=== PATIENT | female | born 1980 | race Caucasian/White ===

== ENCOUNTER → 2023-09-28 | Outpatient (CLI) | payer OTHER ==
--- NOTE | 2023-09-28 09:10 | US ---
EXAMINATION TYPE: US liver DATE OF EXAM: 09/28/2023 COMPARISON: NONE CLINICAL INDICATION: Female, 43 years old with history of K70.31 ALCOHOLIC CIRRHOSIS OF LIVER WITH CITES; Alcoholic cirrhosis. TECHNIQUE: Multiple sonographic images of the right upper quadrant are obtained. FINDINGS: EXAM MEASUREMENTS: Liver Length: 17.5 cm Gallbladder Wall: 0.47 cm CBD: 0.59 cm Right Kidney: 10.9 x 5.8 x 4.2 cm PUMP SERVICER HELPER NOTES: Exam is limited due to gas and patient body habitus. Pancreas: Tail was obscured. Liver: Measures upper limits. Appears very coarse and heterogeneous in echotexture*. -Anechoic area seen within the left lobe of the liver: 1.1 x 1.2 x 0.9 cm. Finding is compatible with a hepatic cyst Gallbladder: *Wall appears thickened. -Hyperechoic material with posterior shadowing seen within the gallbladder: 2.0 x 2.0 x 0.6 cm. Evidence for sonographic Cordova's sign: No CBD: Measures upper limits for normal. Right Kidney: No hydronephrosis or masses seen IMPRESSION: 1. Hepatomegaly. 2. Thickened gallbladder wall. Some shadowing is present which could be related to sludge or cholelit hiasis. Correlate for cholecystitis.
== END | disposition home or self-care (01) ==
LOC: RADUSWWP 06:51
PROVIDERS: ATTEND Internal Medicine Gastroenterology
DX: K82.8 Other specified diseases of gallbladder (principal); K70.31 Alcoholic cirrhosis of liver with ascites; R16.0 Hepatomegaly, not elsewhere classified
CPT/HCPCS: 76705

== ENCOUNTER 2024-02-18 19:54 | Inpatient (IN) | payer OTHER ==
--- NOTE | 2024-02-18 20:41 | ED ---
General Adult HPI - General Chief complaint: Abdominal Pain Stated complaint: ABD Pain Time Seen by Provider: 02/18/24 19:56 Source: patient Mode of arrival: EMS Limitations: no limitations - History of Present Illness Initial comments: Dictation was produced using Tiink[employer] dictation software. please excuse any grammatical, word or spelling errors. Chief Complaint: 44-year-old female transferred from [facility] for acute cholecystitis and GI bleed History of Present Illness: Patient is a 44-year-old female presents emergency department from [facility] for the last 2 to 3 days she has been having bilateral upper abdominal pain. She had extensive workup done at [facility] including blood work, CT and ultrasound. She was still called blood positive had elevated white blood cell count along with liver enzymes and bilirubin. She had a CT that showed hydropic gallbladder along with ultrasound concerning for acute cholecystitis. She was given ceftriaxone and Flagyl. Patient requested transfer to our facility. The ROS documented in this emergency department record has been reviewed and confirmed by me. Those systems with pertinent positive or negative responses have been documented in the HPI. All other systems are other negative and/or noncontributory. - Related Data Home Medications Medication Instructions Recorded Confirmed Cariprazine HCl [Vraylar] 3 mg PO HS 03/20/23 03/25/23 Gabapentin 300 mg PO TID 03/20/23 03/25/23 Pantoprazole [Protonix] 40 mg PO DAILY 03/20/23 03/25/23 QUEtiapine [SEROquel] 1 - 2 tab PO HS 03/20/23 03/25/23 Spironolactone 100 mg PO DAILY 03/20/23 03/25/23 Furosemide [Lasix] 40 mg PO DAILY 02/18/24 02/18/24 Allergies Allergy/AdvReac Type Severity Reaction Status Date / Time Penicillins Allergy Unknown Verified 03/25/23 09:14 Childhood Review of Systems ROS Statement: Those systems with pertinent positive or pertinent negative responses have been documented in the HPI. ROS Other: All systems not noted in ROS Statement are negative. Past Medical History Past Medical History: GERD/Reflux, Liver Disease Additional Past Medical History / Comment(s): retains fluid,anemia,cirrohis of liver non alcoholic, occ bloody stool, ulcer, bipolar History of Any Multi-Drug Resistant Organisms: None Reported Past Surgical History: EPS Additional Past Surgical History / Comment(s): has had 4 scopes, paracentesis unable to get any fluid out at the time., paracentesis Additional Past Anesthesia/Blood Transfusion Reaction / Comment(s): 3 units of blood transfused in around february 03. Past Psychological History: Anxiety, Bipolar Smoking Status: Current every day smoker General Exam - General Exam Comments Initial Comments: PHYSICAL EXAM: General Impression: Alert and oriented x3, not in acute distress HEENT: Normocephalic atraumatic, extra-ocular movements intact, pupils equal and reactive to light bilaterally, mucous membranes moist. Cardiovascular: Heart regular rate and rhythm Chest: Able to complete full sentences, no retractions, no tachypnea Abdomen: abdomen soft, palpatory bilateral upper quadrant tenderness, non- distended, no organomegaly Musculoskeletal: Pulses present and equal in all extremities, no peripheral edema Motor: no focal deficits noted Neurological: CN II-XII grossly intact, no focal motor or sensory deficits noted Skin: Intact with no visualized rashes Psych: Normal affect and mood Limitations: no limitations Course Vital Signs 02/18/24 20:20 Temperature 98.0 F Pulse Rate 80 Respiratory 20 Rate Blood Pressure 101/52 O2 Sat by Pulse 98 Oximetry - Reevaluation(s) Reevaluation #1: 02/18/24 20:[address] Patino requested that we contact Dr. Cuenca to make her aware that patient will likely need ERCP procedure as well. Dr. Cuenca was agreeable states that it it is okay for patient to be admitted here. Medical Decision Making - Medical Decision Making Was pt. sent in by a medical professional or institution (, PA, ROCK SPLITTER, urgent care, hospital, or custodial...) When possible be specific @ -Sent from outside emergency department Did you speak to anyone other than the patient for history (EMS, parent, family, police, friend...)? What history was obtained from this source @ -Spoke with transferring physician as discussed above Did you review nursing and triage notes (agree or disagree)? Why? @ -I reviewed and agree with nursing and triage notes Were old charts reviewed (outside hosp., previous admission, EMS record, old EKG, old radiological studies, urgent care reports/EKG's, custodial records)? Report findings @ -Outside ER documents were reviewed as described above Differential Diagnosis (chest pain, altered mental status, abdominal pain women, abdominal pain men, vaginal bleeding, musculoskeletal, weakness, fever, dyspnea, syncope, headache, dizziness, GI bleed, back pain, seizure, CVA, palpatations, mental health)? @ -Differential Abdominal Pain Women: Appendicitis, Cholecystitis, diverticulosis, ischemic bowel, pancreatitis, hepatitis, UTI, gastroenteritis, AAA, incarcerated hernia, bowel obstruction, constipation, inflammatory bowel, hepatitis, peptic ulcer disease, splenic infarction, perforated viscus, vulvitis, ovarian torsion, PID, kidney stone, placenta abruption, this is not meant to be an all-inclusive list EKG interpreted by me (3pts min.). @ -None done X-rays interpreted by me (1pt min.). @ -None done CT interpreted by me (1pt min.). @ -None done U/S interpreted by me (1pt. min.). @ -None done What testing was considered but not performed or refused? (CT, X-rays, U/S, labs)? Why? @ -None What meds were considered but not given or refused? Why? @ -None Was smoking cessation discussed for >3mins.? @ -No Were there social determinants of health that impacted care today? How? (Homelessness, low income, unemployed, alcoholism, drug addiction, transportation, low edu. Level, literacy, decrease access to med. care, half-way, rehab)? @ -No Was there de-escalation of care discussed even if they declined (Discuss DNR or withdrawal of care, Hospice)? DNR status @ -No What co-morbidities impacted this encounter? (DM, HTN, Smoking, COPD, CAD, Cancer, CVA, ARF, Chemo, Hep., AIDS, mental health diagnosis, sleep apnea, morbid obesity)? @ -None Was patient admitted / discharged? Hospital course, mention meds given and route, prescriptions, significant lab abnormalities, going to OR and other pertinent info. @ -44-year-old female transferred to our emergency department from outside hospital for acute cholecystitis and GI bleed. Vital signs are stable. Patient in no acute distress at the bedside. She does have palpatory abdominal pain. Case discussed with general surgery, GI and hospitalist for admission. Patient started on Zosyn Did you discuss the management of the patient with other professionals (professionals i.e. , PA, ROCK SPLITTER, lab, RT, psych nurse, social services aide, manufacturing teacher, te acher, airframe technical officer, behavioral health case manager)? Give summary @ -Case discussed with general surgery along with GI as described above. Case also discussed with hospitalist for admission Was critical care preformed (if so, how long)? @ -No Undiagnosed new problem with uncertain prognosis? @ -No Drug Therapy requiring intensive monitoring for toxicity (Heparin, Nitro, Insulin, Cardizem)? @ -No Were any procedures done? @ -No Diagnosis/symptom? Acute, or Chronic, or Acute on Chronic? Uncomplicated (without systemic symptoms) or Complicated (systemic symptoms)? @ -Acute cholecystitis Side effects of treatment? @ -No Exacerbation, Progression, or Severe Exacerbation? @ -No Poses a threat to life or bodily function? How? (Chest pain, USA, ID, pneumonia, PE, COPD, DKA, ARF, appy, cholecystitis, CVA, Diverticulitis, Homicidal, Suicidal, threat to staff... and all critical care pts) @ -yes Disposition Clinical Impression: Acute cholecystitis Disposition: ADMITTED IP TO THIS HOSP Condition: Fair Referrals: Sharifa Begum FNPBC [Primary Care Provider] - 1-2 days Decision Time: 21:13
[2024-02-18] MEDS: HYDROmorphone 1 MG/ML 1 ML SYRINGE IVP STA (20:42)
[2024-02-18] MEDS: ONDANSETRON 4 MG/2 ML VIAL IVP STA (20:43)
[2024-02-18] MEDS ORDERED: NALOXONE 0.4 MG/ML 1 ML VIAL IV PRN (21:08)
[2024-02-18] MEDS: CEFEPIME 2 GM in SODIUM CHLORIDE 0.9% 100 ML IVPB SCH (21:30)
[2024-02-18] MEDS: SODIUM CHLORIDE 0.9% 1,000 ML IV SCH (23:20)
[2024-02-18] MEDS: SODIUM CHLORIDE 0.9% 1,000 ML IV STA (23:29)
[2024-02-19] MEDS: HYDROmorphone 0.5 MG/0.5 ML SYRINGE IVP PRN (01:44)
[2024-02-19 03:57] LABS: Basophils % (A) 0 %; Eosinophils # (A) 0.1 k/uL (0-0.7); Eosinophils % (A) 1 %; HCT 25.4 % (34.0-46.0); HGB 8.9 gm/dL (11.4-16.0); Lymphocytes # (A) 1.8 k/uL (1.0-4.8); Lymphocytes % (A) 15 %; MCH 38.8 pg (25.0-35.0); MCHC 35.2 g/dL (31.0-37.0); MCV 110.4 fL (80.0-100.0); Macrocytosis Marked; Mean Platelet Volume 9.8; Monocytes # (A) 0.5 k/uL (0-1.0); Monocytes % (A) 4 %; Neutrophils # (A) 9.2 k/uL (1.3-7.7); Neutrophils % (A) 78 %; RDW 15.5 % (11.5-15.5); WBC 11.9 k/uL (3.8-10.6)
[2024-02-19 04:21] LABS: Anisocytosis (M) Present
[2024-02-19 04:22] LABS: Polychromasia Present
[2024-02-19 04:23] LABS: Platelet Count 68 k/uL (150-450)
[2024-02-19] MEDS ORDERED: LORazepam 2 MG/ML INJ IV PRN ×2 (06:10)
[2024-02-19 06:28] LABS: Basophils % (A) 0 %; Eosinophils # (A) 0.1 k/uL (0-0.7); Eosinophils % (A) 1 %; HCT 24.1 % (34.0-46.0); HGB 8.3 gm/dL (11.4-16.0); Lymphocytes # (A) 1.8 k/uL (1.0-4.8); Lymphocytes % (A) 17 %; MCH 38.4 pg (25.0-35.0); MCHC 34.6 g/dL (31.0-37.0); MCV 110.9 fL (80.0-100.0); Mean Platelet Volume 8.8; Monocytes # (A) 0.5 k/uL (0-1.0); Monocytes % (A) 5 %; Neutrophils # (A) 8.2 k/uL (1.3-7.7); Neutrophils % (A) 74 %; RBC 2.18 m/uL (3.80-5.40); WBC 11.1 k/uL (3.8-10.6)
[2024-02-19 06:30] LABS: Macrocytosis Marked; Platelet Count 71 k/uL (150-450)
[2024-02-19 06:34] LABS: ALT 22 U/L (4-34); AST 54 U/L (14-36); African American GFR (CKD) >90 (>60 ml/min/1.73 sqM); Albumin 2.7 g/dL (3.5-5.0); Albumin/Globulin Ratio 1.2; Alkaline Phosphatase 102 U/L (38-126); Anion Gap 4 mmol/L; Blood Urea Nitrogen 21 mg/dL (7-17); Calcium 7.3 mg/dL (8.4-10.2); Carbon Dioxide 25 mmol/L (22-30); Chloride 99 mmol/L (98-107); Globulin 2.3 g/dL; Glucose 115 mg/dL (74-99); Non-African American GFR(CKD) >90 (>60 ml/min/1.73 sqM); Potassium 2.9 mmol/L (3.5-5.1); Sodium 128 mmol/L (137-145); Total Bilirubin 3.4 mg/dL (0.2-1.3)
[2024-02-19] MEDS: LORazepam 2 MG/ML INJ IV PRN (06:39)
--- NOTE | 2024-02-19 10:12 | P.CONS ---
History of Present Illness - Reason for Consult Consult date: 02/19/24 anemia, cholithiasis Requesting physician: Kt Alcantar - Chief Complaint abdominal pain and melena - History of Present Illness This is a 44 year old female with past medical history of alcoholism and cirrhosis of the liver secondary to alcohol abuse diagnosed about a year ago. She presented to [facility] with complaints of abdominal pain and dark black stools that started three days ago and is continuing to have. She states she had also had nausea and vomiting but no blood. States she had a colonoscopy about a year ago with Dr. Cuenca, had colon polyps status post polypectomy. Has had 2-3 previous upper endoscopies unsure what they found but states they treated it. No report available. She had a CT of the abdomen with contrast reporting gallbladder hydrops, small gallstones again seen. no significant wall thickening. Abdominal ultrasound reported hepatomegaly with mild fatty alteration liver, gallbladder wall thickening and cholelithiasis, normal CBD 0.53cm. She was noted to have elevated LFTs and transferred here for GI and surgery consult. She currently remains having dark maroon stools, some abdominal discomfort, no vomiting. She has a 2 gram drop in her hemoglobin. Review of Systems A 14 point review systems was completed all pertinent positives and negatives as stated in the HPI. Past Medical History Past Medical History: GERD/Reflux, Liver Disease Additional Past Medical History / Comment(s): retains fluid,anemia,cirrohis of liver non alcoholic, occ bloody stool, ulcer, bipolar History of Any Multi-Drug Resistant Organisms: None Reported Past Surgical History: EPS Additional Past Surgical History / Comment(s): has had 4 scopes, paracentesis u nable to get any fluid out at the time., paracentesis Past Anesthesia/Blood Transfusion Reactions: No Reported Reaction Additional Past Anesthesia/Blood Transfusion Reaction / Comm: 3 units of blood transfused in around february 03. Past Psychological History: Anxiety, Bipolar Smoking Status: Current every day smoker Past Alcohol Use History: None Reported Additional Past Alcohol Use History / Comment(s): 1 pk/every 2 days/ 20yrs, did not drink for 10months and then started drinking again states "I stopped again a week ago." Past Drug Use History: None Reported Medications and Allergies Home Medications Medication Instructions Recorded Confirmed Type Cariprazine HCl [Vraylar] 3 mg PO HS 03/20/23 02/18/24 History Gabapentin 300 mg PO TID 03/20/23 02/18/24 History Pantoprazole [Protonix] 40 mg PO DAILY 03/20/23 02/18/24 History QUEtiapine [SEROquel] 100 tab PO HS 03/20/23 02/18/24 History Spironolactone 100 mg PO DAILY 03/20/23 02/18/24 History Furosemide [Lasix] 40 mg PO DAILY 02/18/24 02/18/24 History Allergies Allergy/AdvReac Type Severity Reaction Status Date / Time Penicillins Allergy Anaphylaxis Verified 02/18/24 21:11 Physical Exam Vitals: Vital Signs Temp Pulse Pulse Resp BP BP Pulse Ox 02/19/24 01:16 98.2 F 109 H 16 109/66 91 L 02/19/24 00:00 76 16 109/81 98 02/18/24 23:00 77 20 100/62 97 02/18/24 21:30 74 16 110/64 96 02/18/24 20:20 98.0 F 80 20 101/52 98 Intake and Output 02/18/24 02/18/24 02/19/24 14:59 22:59 06:59 Other: Voiding Method Toilet # Voids 1 Weight 100 kg 100 kg General appearance: The patient is alert, oriented, appears in no acute distress. HET: Head is normocephalic and atraumatic. Conjunctiva pink. Sclera anicteric. Neck: Supple without lymphadenopathy. Trachea midline. Heart: Regular. Lungs: Equal expansion, normal respiratory effort. Abdomen: Soft, mild tenderness epigastric region, nondistended. Skin: No rashes. No jaundice. Extremities: Normal skin color and turgor. No pedal edema. Neurological: No focal deficits. Alert and oriented x3. Results CBC & Chem 7: 02/19/24 05:49 02/19/24 05:49 Labs: Abnormal Lab Results - Last 24 Hours (Table) 02/19/24 02/19/24 02/19/24 Range/Units 03:29 05:49 05:49 WBC 11.9 H 11.1 H (3.8-10.6) k/uL RBC 2.30 L 2.18 L (3.80-5.40) m/uL Hgb 8.9 L 8.3 L (11.4-16.0) gm/dL Hct 25.4 L 24.1 L (34.0-46.0) % MCV 110.4 H 110.9 H (80.0-100.0) fL MCH 38.8 H 38.4 H (25.0-35.0) pg Plt Count 68 L 71 L (150-450) k/uL Neutrophils # 9.2 H 8.2 H (1.3-7.7) k/uL Macrocytosis Marked A Marked A Sodium 128 L (137-145) mmol/L Potassium 2.9 L (3.5-5.1) mmol/L BUN 21 H (7-17) mg/dL Glucose 115 H (74-99) mg/dL Calcium 7.3 L (8.4-10.2) mg/dL Total Bilirubin 3.4 H (0.2-1.3) mg/dL AST 54 H (14-36) U/L Total Protein 5.0 L (6.3-8.2) g/dL Albumin 2.7 L (3.5-5.0) g/dL Assessment and Plan (1) Melena Narrative/Plan: 44 year old female with history of alcohol liver cirrhosis with previous GI bleed possible etiology esophageal varices in setting of liver cirrhosis, AVM, gastritis, PUD, or esophagitis. Labs are consistent with alcohol liver disease, elevated LFTs secondary to liver disease and not cholestatic pattern. Will proceed with upper endoscopy. Current Visit: Yes Status: Acute Code(s): K92.1 - MELENA SNOMED Code(s): 6711302 (2) Anemia Current Visit: Yes Status: Acute Code(s): D64.9 - ANEMIA, UNSPECIFIED SNOMED Code(s): 115109281 (3) Liver cirrhosis Current Visit: Yes Status: Acute Code(s): K74.60 - UNSPECIFIED CIRRHOSIS OF LIVER SNOMED Code(s): 97950921 (4) Cholelithiasis Narrative/Plan: No evidence for choledocholothiasis. Labs consistent with alcohol liver disease, not cholestatic pattern. Current Visit: Yes Status: Acute Code(s): K80.20 - CALCULUS OF GALLBLADDER W/O CHOLECYSTITIS W/O OBSTRUCTION SNOMED Code(s): 391385514 Plan: 1. Continiue supportive care 2. Repeat CBC, transfuse for Hg less than 7 3. NPO 4. Avoid NSAIDS 5. Protonix 40 mg BID 6. Plan for EGD today 7. Continue with recommendations from general surgery Thank you for this consultation. Further recs. after upper endoscopy. We will sign off at this time. There will be no further GI coverage in hospital over the weekend and next week. Dr. Rachel Cuenca I agree with the dictator's note, documented as a scribe by Katiuska Fan.
[2024-02-19 10:33] LABS: Basophils % (A) 0 %; Eosinophils # (A) 0.2 k/uL (0-0.7); Eosinophils % (A) 2 %; HCT 24.1 % (34.0-46.0); HGB 8.2 gm/dL (11.4-16.0); Lymphocytes # (A) 1.7 k/uL (1.0-4.8); Lymphocytes % (A) 16 %; MCH 37.9 pg (25.0-35.0); MCHC 33.9 g/dL (31.0-37.0); MCV 111.8 fL (80.0-100.0); Macrocytosis Marked; Mean Platelet Volume 9.9; Monocytes # (A) 0.5 k/uL (0-1.0); Monocytes % (A) 4 %; Neutrophils # (A) 7.7 k/uL (1.3-7.7); Neutrophils % (A) 75 %; RBC 2.15 m/uL (3.80-5.40); RDW 15.3 % (11.5-15.5); WBC 10.3 k/uL (3.8-10.6)
[2024-02-19 10:42] LABS: Platelet Count 79 k/uL (150-450)
[2024-02-19 10:59] LABS: ALT 22 U/L (4-34); AST 56 U/L (14-36); African American GFR (CKD) >90 (>60 ml/min/1.73 sqM); Albumin 2.7 g/dL (3.5-5.0); Albumin/Globulin Ratio 1.1; Alkaline Phosphatase 98 U/L (38-126); Anion Gap 3 mmol/L; Blood Urea Nitrogen 20 mg/dL (7-17); Calcium 7.4 mg/dL (8.4-10.2); Carbon Dioxide 26 mmol/L (22-30); Chloride 102 mmol/L (98-107); Globulin 2.4 g/dL; Glucose 118 mg/dL (74-99); Non-African American GFR(CKD) >90 (>60 ml/min/1.73 sqM); Potassium 3.1 mmol/L (3.5-5.1); Sodium 131 mmol/L (137-145); Total Bilirubin 3.3 mg/dL (0.2-1.3); Total Protein 5.1 g/dL (6.3-8.2)
--- NOTE | 2024-02-19 13:33 | P.GSCN ---
History of Present Illness Consult date: 02/19/24 History of present illness: CHIEF COMPLAINT: abdominal pain HISTORY OF PRESENT ILLNESS: This is a 44-year-old female whoto transfer from [facility] with complaints of right upper quadrant abdominal pain and black stools 2 days. Patient has had nausea and vomiting. Reports no blood in emesis. 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 She had a CT of the abdomen with contrast reporting gallbladder hydrops, small gallstones seen. no significant wall thickening. Abdominal ultrasound reported hepatomegaly with mild fatty alteration liver, gallbladder wall thickening and cholelithiasis, normal CBD 0.53cm. She was noted to have elevated LFTs and transferred here for GI and surgery consult. hemoglobin on admission 8.9. denies any prior abdominal surgeries PAST MEDICAL HISTORY: abdominal ascites, anemia, bipolar disorder, carpal tunnel syndrome, liver cirrhosis, duodenal arteriovenous malformation, esophageal varices, neuropathy, obesity, portal venous hypertension PAST SURGICAL HISTORY: See below MEDICATIONS: See below ALLERGIES: See below SOCIAL HISTORY: No illicit drug use. daily alcohol use REVIEW OF SYSTEMS: CONSTITUTIONAL: Denies fever or chills. HEENT: Denies blurred vision, vision changes, or eye pain. Denies hemoptysis CARDIOVASCULAR: Denies chest pain or pressure. RESPIRATORY: No shortness of breath. GASTROINTESTINAL: See HPI for pertinent findings HEMATOLOGIC: Denies bleeding disorders. GENITOURINARY: Denies any blood in urine or increased urinary frequency. SKIN: Denies pruitis. Denies rash. PHYSICAL EXAM: VITAL SIGNS: Reviewed GENERAL: Well-developed in no acute distress. HEENT: No sclera icterus. Extraocular movements grossly intact. Moist buccal mucosa. Head is atraumatic, normocephalic. No nasal drainage. ABDOMEN: Soft. Nondistended. tenderness to palpation right upper quadrant and epigastric area NEUROLOGIC: Alert and oriented. Cranial nerves II through XII grossly intact. LABORATORY DATA: WBC 11.9-10.3 Hgb 8.2 Plt 79 hgb 10.7 at [facility] Na 131 K 3.1 cr 0.63 total bilirubin 3.3 AST 56 ALT 22 alk phos 98 lipase 37 IMAGING: ASSESSMENT: 1. Acute GI bleed with dark stools 2. Anemia likely acute blood loss due to GI bleed 3. Cholelithiasis and gallbladder wall thickening noted on imaging 4. Elevated LFTs likely due to alcohol liver disease 5. History of liver cirrhosis 6. History of daily alcohol use PLAN: -Patient scheduled for EGD today with GI service -continue to monitor for any signs or symptoms of bleeding -continue to monitor hemoglobin -Continue Protonix -Further recommendations forthcoming per surgeon Physician Roll Over Press Operator note has been reviewed by physician. Signing provider agrees with the documented findings, assessment, and plan of care. I have personally seen and examined the patient, reviewed the COMMERCIAL CORRESPONDENT /PAs history, exam and MDM and agree with the assessment and plan as written. Based on total visit time, I have performed more than 50% of the visit. As above: Patient presents with GI bleed. Found to have elevated liver enzymes however patient with history of known cirrhosis. Thrombocytopenia also present. GI has seen this patient. Agree with their plan. Await EGD findings. No plans for cholecystectomy at this time. Past Medical History Past Medical History: GERD/Reflux, Liver Disease Additional Past Medical History / Comment(s): retains fluid,anemia,cirrohis of liver non alcoholic, occ bloody stool, ulcer, bipolar History of Any Multi-Drug Resistant Organisms: None Reported Past Surgical History: EPS Additional Past Surgical History / Comment(s): has had 4 scopes, paracentesis unable to get any fluid out at the time., paracentesis Past Anesthesia/Blood Transfusion Reactions: No Reported Reaction Additional Past Anesthesia/Blood Transfusion Reaction / Comm: 3 units of blood transfused in around february 03. Past Psychological History: Anxiety, Bipolar Smoking Status: Current every day smoker Past Alcohol Use History: None Reported Additional Past Alcohol Use History / Comment(s): 1 pk/every 2 days/ 20yrs, did not drink for 10months and then started drinking again states "I stopped again a week ago." Past Drug Use History: None Reported Medications and Allergies Home Medications Medication Instructions Recorded Confirmed Type Cariprazine HCl [Vraylar] 3 mg PO HS 03/20/23 02/18/24 History Gabapentin 300 mg PO TID 03/20/23 02/18/24 History Pantoprazole [Protonix] 40 mg PO DAILY 03/20/23 02/18/24 History QUEtiapine [SEROquel] 100 tab PO HS 03/20/23 02/18/24 History Spironolactone 100 mg PO DAILY 03/20/23 02/18/24 History Furosemide [Lasix] 40 mg PO DAILY 02/18/24 02/18/24 History Allergies Allergy/AdvReac Type Severity Reaction Status Date / Time Penicillins Allergy Anaphylaxis Verified 02/18/24 21:11 Surgical - Exam Vital Signs Temp Pulse Resp BP Pulse Ox 98.0 F 80 20 101/52 98 02/18/24 20:20 02/18/24 20:20 02/18/24 20:20 02/18/24 20:20 02/18/24 20:20 Results - Labs 02/19/24 10:15 02/19/24 10:15 Abnormal Lab Results - Last 24 Hours (Table) 02/19/24 02/19/24 02/19/24 Range/Units 03:29 05:49 05:49 WBC 11.9 H 11.1 H (3.8-10.6) k/uL RBC 2.30 L 2.18 L (3.80-5.40) m/uL Hgb 8.9 L 8.3 L (11.4-16.0) gm/dL Hct 25.4 L 24.1 L (34.0-46.0) % MCV 110.4 H 110.9 H (80.0-100.0) fL MCH 38.8 H 38.4 H (25.0-35.0) pg Plt Count 68 L 71 L (150-450) k/uL Neutrophils # 9.2 H 8.2 H (1.3-7.7) k/uL Macrocytosis Marked A Marked A Sodium 128 L (137-145) mmol/L Potassium 2.9 L (3.5-5.1) mmol/L BUN 21 H (7-17) mg/dL Glucose 115 H (74-99) mg/dL Calcium 7.3 L (8.4-10.2) mg/dL Total Bilirubin 3.4 H (0.2-1.3) mg/dL AST 54 H (14-36) U/L Total Protein 5.0 L (6.3-8.2) g/dL Albumin 2.7 L (3.5-5.0) g/dL 02/19/24 02/19/24 Range/Units 10:15 10:15 WBC (3.8-10.6) k/uL RBC 2.15 L (3.80-5.40) m/uL Hgb 8.2 L (11.4-16.0) gm/dL Hct 24.1 L (34.0-46.0) % MCV 111.8 H (80.0-100.0) fL MCH 37.9 H (25.0-35.0) pg Plt Count 79 L (150-450) k/uL Neutrophils # (1.3-7.7) k/uL Macrocytosis Marked A Sodium 131 L (137-145) mmol/L Potassium 3.1 L (3.5-5.1) mmol/L BUN 20 H (7-17) mg/dL Glucose 118 H (74-99) mg/dL Calcium 7.4 L (8.4-10.2) mg/dL Total Bilirubin 3.3 H (0.2-1.3) mg/dL AST 56 H (14-36) U/L Total Protein 5.1 L (6.3-8.2) g/dL Albumin 2.7 L (3.5-5.0) g/dL Diabetes panel 02/19/24 02/19/24 Range/Units 05:49 10:15 Sodium 128 L 131 L (137-145) mmol/L Potassium 2.9 L 3.1 L (3.5-5.1) mmol/L Chloride 99 102 (98-107) mmol/L Carbon Dioxide 25 26 (22-30) mmol/L BUN 21 H 20 H (7-17) mg/dL Creatinine 0.54 0.63 (0.52-1.04) mg/dL Glucose 115 H 118 H (74-99) mg/dL Calcium 7.3 L 7.4 L (8.4-10.2) mg/dL AST 54 H 56 H (14-36) U/L ALT 22 22 (4-34) U/L Alkaline Phosphatase 102 98 (38-126) U/L Total Protein 5.0 L 5.1 L (6.3-8.2) g/dL Albumin 2.7 L 2.7 L (3.5-5.0) g/dL Calcium panel 02/19/24 02/19/24 Range/Units 05:49 10:15 Calcium 7.3 L 7.4 L (8.4-10.2) mg/dL Albumin 2.7 L 2.7 L (3.5-5.0) g/dL Pituitary panel 02/19/24 02/19/24 Range/Units 05:49 10:15 Sodium 128 L 131 L (137-145) mmol/L Potassium 2.9 L 3.1 L (3.5-5.1) mmol/L Chloride 99 102 (98-107) mmol/L Carbon Dioxide 25 26 (22-30) mmol/L BUN 21 H 20 H (7-17) mg/dL Creatinine 0.54 0.63 (0.52-1.04) mg/dL Glucose 115 H 118 H (74-99) mg/dL Calcium 7.3 L 7.4 L (8.4-10.2) mg/dL Adrenal panel 02/19/24 02/19/24 Range/Units 05:49 10:15 Sodium 128 L 131 L (137-145) mmol/L Potassium 2.9 L 3.1 L (3.5-5.1) mmol/L Chloride 99 102 (98-107) mmol/L Carbon Dioxide 25 26 (22-30) mmol/L BUN 21 H 20 H (7-17) mg/dL Creatinine 0.54 0.63 (0.52-1.04) mg/dL Glucose 115 H 118 H (74-99) mg/dL Calcium 7.3 L 7.4 L (8.4-10.2) mg/dL Total Bilirubin 3.4 H 3.3 H (0.2-1.3) mg/dL AST 54 H 56 H (14-36) U/L ALT 22 22 (4-34) U/L Alkaline Phosphatase 102 98 (38-126) U/L Total Protein 5.0 L 5.1 L (6.3-8.2) g/dL Albumin 2.7 L 2.7 L (3.5-5.0) g/dL
[2024-02-19] MEDS: IV FLUID CONTINUATION 1,000 ML IV ONE ×2 (17:04→17:22)
[2024-02-19] MEDS ORDERED: PROPOFOL 10 MG/ML 20 ML VIAL IV ONE (17:15)
[2024-02-19] MEDS ORDERED: LIDOCAINE 1% INJ 10MG/ML (20 ML MDV) ONE (17:15)
--- NOTE | 2024-02-19 17:24 | P.PCN ---
Date of Procedure: 02/19/24 Procedure(s) Performed: BRIEF HISTORY: Patient is a 44-year-old, pleasant, white female with history of alcoholic cirrhosis of the liver was admitted hospital after having black tarry stools for the last 2 days' duration.. PROCEDURE PERFORMED: Esophagogastroduodenoscopy with biopsy. PREOPERATIVE DIAGNOSIS: Acute upper GI bleed IV sedation per anesthesia. PROCEDURE: After informed consent was obtained, the patient was brought into the endoscopy unit. IV sedation was administered by Anesthesia under continuous monitoring. Initially the Olympus GIF-140 video endoscope was inserted into the mouth. Esophagus intubated without any difficulty. It was gradually advanced into the stomach and duodenum and carefully examined. The bulb and the second part of the duodenum appeared normal. The scope at this time was withdrawn to the stomach, adequately insufflated with air, and upon careful examination, mucosa of the antrum,and a 5 mm small antral ulcer with no active bleeding and this was biopsied. Mucosa of the body, cardia and the fundus had changes consistent with mild to moderate portal hypertensive gastropathy. No gastric varices identified.l. The scope was then withdrawn into the esophagus. The GE junction was located at 39 cm from the incisors. small distal esophageal varices with no stigmata of recent bleed.The rest of theesophagus appeared normal. There were no erosions or ulcerations seen and the patient tolerated the procedure well. IMPRESSION: 1. Small 5 mm antral ulcer with no active bleeding. 2. Small distal esophageal varices with no stigmata of recent 3. Mild to moderate: Evidence of gastric. RECOMMENDATIONS: The findings of this examination were discussed with the patient.continue with Protonix 40 mg daily. Advance diet as tolerated. Monitor CBC daily.
[2024-02-19] MEDS: GABAPENTIN 300 MG CAP PO SCH (17:50)
--- NOTE | 2024-02-19 18:05 | P.HPIM ---
History of Present Illness H&P Date: 02/19/24 Chief Complaint: transfer from [facility] for cholecystitis as well as GI bleed 44-year-old female who presented [facility] 3 days ago with upper abdominal pain extensive workup done including computed tomography scan labwork and ultrasound she was noted to be heme positive with leukocytosis and elevated liver enzymes along with lobe and, the computed tomography scan revealed presence of hydropic gallbladder with ultrasound cystoscopy acute cholecystitis patient was treated with Rocephin and Flagyl and subsequently transferred to [facility] for advanced level of care.On arrival she was afebrile hemodynamically stable but with a systolic blood pressure oxygen 98% patient was admitted with GI doctor, and Dr. Patino for general surgery on consulther labs were significant obesity count of 11.1 and hemoglobin at 8.3/24 platelet count was 71, patient underwent endoscopy by Dr. Garcia and 0.5 cm ulcerated nonbleedingin antrum with distal esophageal varices with no stigmata of bleeding and evidence of mild gastritis, surgical services following closely prior medical history significant for a GERD, cirrhosis of liver, history of peptic ulcer disease, with prior multiple endoscopy as well as paracentesisdetails of bed however not available Review of Systems All systems: negative Past Medical History Past Medical History: GERD/Reflux, Liver Disease Additional Past Medical History / Comment(s): retains fluid,anemia,cirrohis of liver non alcoholic, occ bloody stool, ulcer, bipolar History of Any Multi-Drug Resistant Organisms: None Reported Past Surgical History: EPS Additional Past Surgical History / Comment(s): has had 4 scopes, paracentesis unable to get any fluid out at the time., paracentesis Past Anesthesia/Blood Transfusion Reactions: No Reported Reaction Additional Past Anesthesia/Blood Transfusion Reaction / Comment(s): 3 units of blood transfused in around february 03. Past Psychological History: Anxiety, Bipolar Smoking Status: Current every day smoker Past Alcohol Use History: None Reported Additional Past Alcohol Use History / Comment(s): 1 pk/every 2 days/ 20yrs, did not drink for 10months and then started drinking again states "I stopped again a week ago." Past Drug Use History: None Reported Medications and Allergies Home Medications Medication Instructions Recorded Confirmed Type Cariprazine HCl [Vraylar] 3 mg PO HS 03/20/23 02/18/24 History Gabapentin 300 mg PO TID 03/20/23 02/18/24 History Pantoprazole [Protonix] 40 mg PO DAILY 03/20/23 02/18/24 History QUEtiapine [SEROquel] 100 tab PO HS 03/20/23 02/18/24 History Spironolactone 100 mg PO DAILY 03/20/23 02/18/24 History Furosemide [Lasix] 40 mg PO DAILY 02/18/24 02/18/24 History Allergies Allergy/AdvReac Type Severity Reaction Status Date / Time Penicillins Allergy Anaphylaxis Verified 02/18/24 21:11 Physical Exam Vitals: Vital Signs Temp Pulse Pulse Resp BP BP Pulse Ox 02/19/24 13:22 98.6 F 96 20 97/56 93 L 02/19/24 07:22 98.4 F 92 20 101/57 92 L 02/19/24 01:16 98.2 F 109 H 16 109/66 91 L 02/19/24 00:00 76 16 109/81 98 02/18/24 23:00 77 20 100/62 97 02/18/24 21:30 74 16 110/64 96 02/18/24 20:20 98.0 F 80 20 101/52 98 Intake and Output 02/19/24 02/19/24 02/19/24 06:59 14:59 22:59 Intake Total 100 Balance 100 Intake: IV 100 Other: Voiding Method Toilet Toilet # Voids 1 Weight 100 kg General appearance: The patient is alert, oriented, appears in no acute distress. HET: Head is normocephalic and atraumatic. Conjunctiva pink. Sclera anicteric. Neck: Supple without lymphadenopathy. Trachea midline. Heart: Regular. Lungs: Equal expansion, normal respiratory effort. Abdomen: Soft, mild tenderness epigastric region, nondistended. Skin: No rashes. No jaundice. Extremities: Normal skin color and turgor. No pedal edema. Neurological: No focal deficits. somnolent but arousable post procedure Results CBC & Chem 7: 02/19/24 10:15 02/19/24 10:15 Labs: Abnormal Lab Results - Last 24 Hours (Table) 02/19/24 02/19/24 02/19/24 Range/Units 03:29 05:49 05:49 WBC 11.9 H 11.1 H (3.8-10.6) k/uL RBC 2.30 L 2.18 L (3.80-5.40) m/uL Hgb 8.9 L 8.3 L (11.4-16.0) gm/dL Hct 25.4 L 24.1 L (34.0-46.0) % MCV 110.4 H 110.9 H (80.0-100.0) fL MCH 38.8 H 38.4 H (25.0-35.0) pg Plt Count 68 L 71 L (150-450) k/uL Neutrophils # 9.2 H 8.2 H (1.3-7.7) k/uL Macrocytosis Marked A Marked A Sodium 128 L (137-145) mmol/L Potassium 2.9 L (3.5-5.1) mmol/L BUN 21 H (7-17) mg/dL Glucose 115 H (74-99) mg/dL Calcium 7.3 L (8.4-10.2) mg/dL Total Bilirubin 3.4 H (0.2-1.3) mg/dL AST 54 H (14-36) U/L Total Protein 5.0 L (6.3-8.2) g/dL Albumin 2.7 L (3.5-5.0) g/dL 02/19/24 02/19/24 Range/Units 10:15 10:15 WBC (3.8-10.6) k/uL RBC 2.15 L (3.80-5.40) m/uL Hgb 8.2 L (11.4-16.0) gm/dL Hct 24.1 L (34.0-46.0) % MCV 111.8 H (80.0-100.0) fL MCH 37.9 H (25.0-35.0) pg Plt Count 79 L (150-450) k/uL Neutrophils # (1.3-7.7) k/uL Macrocytosis Marked A Sodium 131 L (137-145) mmol/L Potassium 3.1 L (3.5-5.1) mmol/L BUN 20 H (7-17) mg/dL Glucose 118 H (74-99) mg/dL Calcium 7.4 L (8.4-10.2) mg/dL Total Bilirubin 3.3 H (0.2-1.3) mg/dL AST 56 H (14-36) U/L Total Protein 5.1 L (6.3-8.2) g/dL Albumin 2.7 L (3.5-5.0) g/dL Thrombosis Risk Factor Assmnt - Choose All That Apply Each Factor Represents 1 point: Age 41-60 years Other Risk Factors: No Other congenital or acquired thrombophilia - If yes, enter type in comment: No Thrombosis Risk Factor Assessment Total Risk Factor Score: 1 Thrombosis Risk Factor Assessment Level: Low Risk Assessment and Plan Assessment: acute on chronic anemia, monitor and trend hemoglobin closely keep her over 7-8 GI bleed likely upper occurred status post endoscopy found to have a small 0.5 cm ulcer nonbleeding with nonbleeding varices, continue PPI Cirrhosis, monitor and trend liver enzymes closely Cholecystitis and cholelithiasis, ultrasound failed to reveal choledocholithiasis, general surgery is following Plan: as above Time with Patient: Greater than 30
[2024-02-19] MEDS: POTASSIUM CHLORIDE ER 20 MEQ TAB.ER PO SCH (18:49)
[2024-02-19] MEDS: PATIENT'S OWN (Cariprazine Hcl [Vraylar] 3 MG Capsule) PO SCH (20:03)
[2024-02-19] MEDS: QUEtiapine 100 MG TAB PO SCH (21:31)
[2024-02-20] MEDS: SPIRONOLACTONE 25 MG TAB PO SCH (08:30)
[2024-02-20] MEDS: PANTOPRAZOLE 40 MG TABLET PO SCH (08:31)
[2024-02-20 09:47] LABS: HCT 20.6 % (37.2-46.3); HGB 6.9 g/dL (12.0-15.0); Immature Platelet Fraction 8.8 % (1.1-6.1); MCH 37.9 pg (27.0-32.0); MCHC 33.5 g/dL (32.0-37.0); MCV 113.2 FL (80.0-97.0); NRBC Per 100 WBC 0 X 10*3/uL (0.00-0.01); Platelet Count 44 X 10*3/uL (140-440); RBC 1.82 X 10*6/uL (4.10-5.20); RDW 15.5 % (11.5-14.5); WBC 5.01 X 10*3/uL (4.50-10.00)
[2024-02-20 10:02] LABS: ALT 19 U/L (8-44); AST 53 U/L (13-35); Albumin 2.8 g/dL (3.8-4.9); Albumin/Globulin Ratio 1.47 Ratio (1.60-3.17); Alkaline Phosphatase 99 U/L (41-126); BUN/Creat Ratio 17.11 Ratio (12.00-20.00); Blood Urea Nitrogen 15.4 mg/dL (9.0-27.0); Calcium 7.2 mg/dL (8.7-10.3); Chloride 106 mmol/L (96-109); Globulin 1.9 g/dL (1.6-3.3); Glucose 97 mg/dL (70-110); Magnesium 1.9 mg/dL (1.5-2.4); Phosphorus 1.1 mg/dL (2.4-5.1); Potassium 3.5 mmol/L (3.5-5.5); Sodium 134 mmol/L (135-145); Total Bilirubin 1.6 mg/dL (0.3-1.2); Total Protein 4.7 g/dL (6.2-8.2)
[2024-02-20 10:22] LABS: Basophils # (A) 0.03 X 10*3/uL (0.00-0.10); Basophils % (A) 0.6 %; Eosinophils # (A) 0.17 X 10*3/uL (0.04-0.35); Eosinophils % (A) 3.4 %; Macrocytosis (M) 2+; Monocytes # (A) 0.34 X 10*3/uL (0.20-1.00); Monocytes % (A) 6.8 %; Neutrophils # (A) 3.22 X 10*3/uL (1.80-7.70); Neutrophils % (A) 64.2 %
--- NOTE | 2024-02-20 16:12 | P.PN ---
Subjective Progress Note Date: 02/20/24 Principal diagnosis: acute blood loss anemia acute on chronic anemia, monitor and trend hemoglobin closely keep her over 7-8 GI bleed likely upper occurred status post endoscopy found to have a small 0.5 cm ulcer nonbleeding with nonbleeding varices, continue PPI Cirrhosis, monitor and trend liver enzymes closely Cholecystitis and cholelithiasis, ultrasound failed to reveal choledocholithiasis, general surgery is following 02/20/2024, patient seen eval examined during roundsobvious bleeding has been noted but patient is still having dark stool, hemoglobin drop down to 6.9, platelet count is just 44,000 patient is getting 2 units of packed RBC, medications reviewed patient is on cephapirin Protonix and Decadron and Ativan along with Dilaudid for pain control 44-year-old female who presented into the [facility] days ago with upper abdominal pain extensive workup done including computed tomography scan labwork and ultrasound she was noted to be heme positive with leukocytosis and elevated liver enzymes along with lobe and, the computed tomography scan revealed presence of hydropic gallbladder with ultrasound cystoscopy acute cholecystitis patient was treated with Rocephin and Flagyl and subsequently transferred to [facility] for advanced level of care.On arrival she was afebrile hemodynamically stable but with a systolic blood pressure oxygen 98% patient was admitted with GI doctor, and Dr. Patino for general surgery on consulther labs were significant obesity count of 11.1 and hemoglobin at 8.3/24 platelet count was 71, patient underwent endoscopy by Dr. Garcia and 0.5 cm ulcerated nonbleedingin antrum with distal esophageal varices with no stigmata of bleeding and evidence of mild gastritis, surgical services following closely prior medical history significant for a GERD, cirrhosis of liver, history of peptic ulcer disease, with prior multiple endoscopy as well as paracentesisdetails of bed however not available Objective - Vital Signs Vital signs: Vital Signs Temp 98.2 F 02/20/24 15:19 Pulse 108 H 02/20/24 15:19 Resp 17 02/20/24 15:19 BP 102/68 02/20/24 15:19 Pulse Ox 95 02/20/24 15:19 FiO2 Intake & Output 02/19/24 02/20/24 02/20/24 18:59 06:59 18:59 Intake Total 100 1140 430 Balance 100 1140 430 Intake: IV 100 Intake, IV Titration 1140 Amount Cefepime 2 gm In Sodium 100 Chloride 0.9% 100 ml @ 200 mls/hr IVPB Q12H [facility] Rx#:[id number] Sodium Chloride 0.9% 1, 1040 000 ml @ 130 mls/hr IV . Q7H42M [facility] Rx#:[id number] Oral 120 Blood Product 310 Rc As-1 Unit 0 [id number] Rc As-1 Unit 310 [id number] Other: Voiding Method Toilet Toilet # Voids 3 - Exam General appearance: The patient is alert, oriented, appears in no acute distress. HET: Head is normocephalic and atraumatic. Conjunctiva pink. Sclera anicteric. Neck: Supple without lymphadenopathy. Trachea midline. Heart: Regular. Lungs: Equal expansion, normal respiratory effort. Abdomen: Soft, mild tenderness epigastric region, nondistended. Skin: No rashes. No jaundice. Extremities: Normal skin color and turgor. No pedal edema. Neurological: No focal deficits. somnolent but arousable post procedure - Labs CBC & Chem 7: 02/20/24 05:53 02/20/24 05:47 Labs: Abnormal Lab Results - Last 24 Hours (Table) 02/19/24 02/20/24 02/20/24 Range/Units 05:49 05:47 05:53 RBC 1.82 L (4.10-5.20) X 10*6/uL Hgb 6.9 A* (12.0-15.0) g/dL Hct 20.6 L (37.2-46.3) % MCV 113.2 H (80.0-97.0) FL MCH 37.9 H (27.0-32.0) pg RDW 15.5 H (11.5-14.5) % Plt Count 44 L (140-440) X 10*3/uL Immature Gran # 0.05 H (0.00-0.04) X 10*3/uL Immature Plt Fraction 8.8 H (1.1-6.1) % Macrocytosis (manual) 2+ A Sodium 134 L (135-145) mmol/L Carbon Dioxide 20.0 L (21.6-31.8) mmol/L Calcium 7.2 L (8.7-10.3) mg/dL Phosphorus 1.1 L (2.4-5.1) mg/dL Total Bilirubin 1.6 H (0.3-1.2) mg/dL AST 53 H (13-35) U/L Total Protein 4.7 L (6.2-8.2) g/dL Albumin 2.8 L (3.8-4.9) g/dL Albumin/Globulin Ratio 1.47 L (1.60-3.17) Ratio Crossmatch See Detail Assessment and Plan Assessment: acute blood loss anemia Thrombocytopenia acute on chronic anemia, monitor and trend hemoglobin closely keep her over 7-8 GI bleed likely upper occurred status post endoscopy found to have a small 0.5 cm ulcer nonbleeding with nonbleeding varices, continue PPI Cirrhosis, monitor and trend liver enzymes closely Cholecystitis and cholelithiasis, ultrasound failed to reveal choledocholithiasis, general surgery is following Plan: as above, patient is being transferred to unit packed RBC, will check coags as wellif quality breath he seen that will require correction Time with Patient: Greater than 30
--- NOTE | 2024-02-20 16:15 | P.PN ---
Progress Note - Text Progress Note Date: 02/20/24 CHIEF COMPLAINT: Abdominal Pain. HISTORY OF PRESENT ILLNESS: NAEO. Patient receiving 1 unit PRBCs during evaluation. Denies abdominal pain PHYSICAL EXAM: VITAL SIGNS: Reviewed. GENERAL: Well-developed in no acute distress. ABDOMEN: Soft. Mildly distended, Nontender NEUROLOGIC: Alert and oriented. Cranial nerves II through XII grossly intact. ASSESSMENT: 1. Acute GI bleed with dark stools 2. Anemia likely acute blood loss due to GI bleed 3. Cholelithiasis and gallbladder wall thickening noted on imaging 4. Elevated LFTs likely due to alcohol liver disease 5. History of liver cirrhosis 6. History of daily alcohol use PLAN: -EGD with GI showed nonbleeding ulcer and esophageal varices -continue to monitor for any signs or symptoms of bleeding -continue to monitor hemoglobin, transfuse prn -Continue Protonix
[2024-02-20 20:44] LABS: Anisocytosis Slight; Basophils % (A) 1 %; Eosinophils # (A) 0.2 k/uL (0-0.7); Eosinophils % (A) 4 %; HGB 9.3 gm/dL (11.4-16.0); Hypochromasia Slight; Lymphocytes % (A) 15 %; MCHC 34.3 g/dL (31.0-37.0); MCV 107.9 fL (80.0-100.0); Monocytes # (A) 0.3 k/uL (0-1.0); Monocytes % (A) 4 %; Neutrophils % (A) 74 %; RBC 2.51 m/uL (3.80-5.40); RDW 18.2 % (11.5-15.5); WBC 6.8 k/uL (3.8-10.6)
[2024-02-20 20:49] LABS: Macrocytosis Marked; Platelet Count 54 k/uL (150-450)
[2024-02-20 20:50] LABS: INR 1.2 (<1.2); Partial Thromboplastin Time 29.4 sec (22.0-30.0); Prothrombin Time 13.2 sec (10.0-12.5)
[2024-02-21 02:17] LABS: Anisocytosis Slight; HCT 26.7 % (34.0-46.0); HGB 9.1 gm/dL (11.4-16.0); Hypochromasia Slight; MCH 36.9 pg (25.0-35.0); MCHC 33.9 g/dL (31.0-37.0); MCV 108.8 fL (80.0-100.0); Macrocytosis Marked; Mean Platelet Volume 9.2; RBC 2.46 m/uL (3.80-5.40); RDW 18.1 % (11.5-15.5)
[2024-02-21 02:47] LABS: ALT 23 U/L (4-34); AST 63 U/L (14-36); African American GFR (CKD) >90 (>60 ml/min/1.73 sqM); Albumin 2.8 g/dL (3.5-5.0); Albumin/Globulin Ratio 1.2; Alkaline Phosphatase 102 U/L (38-126); Anion Gap 6 mmol/L; Blood Urea Nitrogen 9 mg/dL (7-17); Calcium 7.5 mg/dL (8.4-10.2); Carbon Dioxide 19 mmol/L (22-30); Chloride 105 mmol/L (98-107); Globulin 2.4 g/dL; Glucose 105 mg/dL (74-99); Non-African American GFR(CKD) >90 (>60 ml/min/1.73 sqM); Phosphorus 1.3 mg/dL (2.5-4.5); Potassium 3.4 mmol/L (3.5-5.1); Sodium 130 mmol/L (137-145); Total Bilirubin 6.6 mg/dL (0.2-1.3); Total Protein 5.2 g/dL (6.3-8.2)
[2024-02-21 02:49] LABS: Platelet Count 47 k/uL (150-450)
[2024-02-21 03:37] LABS: Band Neutrophils % 1 %; Eosinophils # (M) 0.12 k/uL (0-0.7); Lymphocytes # (M) 1.16 k/uL (1.0-4.8); Monocytes # (M) 0.23 k/uL (0-1.0); Neutrophils % (M) 75 %; Nucleated Red Blood Cells 1 /100 WBC (0-0); Total Cells Counted 200; WBC 5.8 k/uL (3.8-10.6)
[2024-02-21 03:38] LABS: Polychromasia Present
[2024-02-21] MEDS ORDERED: Potassium Replacement Protocol 1 EACH MISC MISCELLANE PRN ×2 (08:37→15:38)
[2024-02-21] MEDS: POTASSIUM CHLORIDE ER 20 MEQ TAB.ER PO SCH (09:15)
[2024-02-21] MEDS: ACETAMINOPHEN TAB 325 MG TAB PO PRN (09:15)
[2024-02-21 09:40] LABS: Basophils # (A) 0.05 X 10*3/uL (0.00-0.10); Basophils % (A) 0.8 %; Eosinophils # (A) 0.23 X 10*3/uL (0.04-0.35); Eosinophils % (A) 3.8 %; HCT 25.3 % (37.2-46.3); HGB 8.6 g/dL (12.0-15.0); Immature Platelet Fraction 9.3 % (1.1-6.1); Lymphocytes # (A) 1.28 X 10*3/uL (0.90-5.00); Lymphocytes % (A) 21.1 %; MCH 36.6 pg (27.0-32.0); MCV 107.7 FL (80.0-97.0); Mean Platelet Volume 12.1 FL (9.5-12.2); Monocytes # (A) 0.42 X 10*3/uL (0.20-1.00); Monocytes % (A) 6.9 %; NRBC Per 100 WBC 0.08 X 10*3/uL (0.00-0.01); Neutrophils # (A) 3.91 X 10*3/uL (1.80-7.70); Neutrophils % (A) 64.6 %; Platelet Count 39 X 10*3/uL (140-440); RBC 2.35 X 10*6/uL (4.10-5.20); RDW 18.8 % (11.5-14.5); WBC 6.06 X 10*3/uL (4.50-10.00)
--- NOTE | 2024-02-21 10:28 | P.PN ---
Subjective Progress Note Date: 02/21/24 Patient states she has had no further rectal bleeding. On exam vital signs are stable. Abdomen is soft. Patient will be observed. If she shows any signs of bleeding she will undergo colonoscopy. Objective - Vital Signs Vital signs: Vital Signs Temp 98.3 F 02/21/24 08:00 Pulse 87 02/21/24 08:00 Resp 19 02/21/24 08:00 BP 115/67 02/21/24 08:00 Pulse Ox 95 02/21/24 08:00 FiO2 Intake & Output 02/20/24 02/21/24 02/21/24 18:59 06:59 18:59 Intake Total 980 1380 Balance 980 1380 Intake: Intake, IV Titration 1140 Amount Cefepime 2 gm In Sodium 100 Chloride 0.9% 100 ml @ 200 mls/hr IVPB Q12H [facility] Rx#:[id number] Sodium Chloride 0.9% 1, 1040 000 ml @ 130 mls/hr IV . Q7H42M [facility] Rx#:[id number] Oral 360 240 Blood Product 620 Rc As-1 Unit 310 [id number] Rc As-1 Unit 310 [id number] Other: Voiding Method Toilet # Voids 4 2 # Bowel Movements 1 - Labs CBC & Chem 7: 02/21/24 03:25 02/21/24 01:30 Labs: Abnormal Lab Results - Last 24 Hours (Table) 02/19/24 02/20/24 02/20/24 Range/Units 05:49 19:50 19:50 RBC 2.51 L (3.80-5.40) m/uL Hgb 9.3 L (11.4-16.0) gm/dL Hct 27.0 L (34.0-46.0) % MCV 107.9 H (80.0-100.0) fL MCH 37.0 H (25.0-35.0) pg RDW 18.2 H (11.5-15.5) % Plt Count 54 L (150-450) k/uL Immature Gran # (0.00-0.04) X 10*3/uL Nucleated RBCs (0-0) /100 WBC NRBC/100 WBC Diff (0.00-0.01) X 10*3/uL Immature Plt Fraction (1.1-6.1) % Macrocytosis Marked A PT 13.2 H (10.0-12.5) sec INR 1.2 H (<1.2) Sodium (137-145) mmol/L Potassium (3.5-5.1) mmol/L Carbon Dioxide (22-30) mmol/L Glucose (74-99) mg/dL Calcium (8.4-10.2) mg/dL Phosphorus (2.5-4.5) mg/dL Total Bilirubin (0.2-1.3) mg/dL AST (14-36) U/L Total Protein (6.3-8.2) g/dL Albumin (3.5-5.0) g/dL Crossmatch See Detail 02/21/24 02/21/24 02/21/24 Range/Units 01:20 01:30 03:25 RBC 2.46 L 2.35 L (3.80-5.40) m/uL Hgb 9.1 L 8.6 L (11.4-16.0) gm/dL Hct 26.7 L 25.3 L (34.0-46.0) % MCV 108.8 H 107.7 H (80.0-100.0) fL MCH 36.9 H 36.6 H (25.0-35.0) pg RDW 18.1 H 18.8 H (11.5-15.5) % Plt Count 47 L 39 L (150-450) k/uL Immature Gran # 0.17 H (0.00-0.04) X 10*3/uL Nucleated RBCs 1 H (0-0) /100 WBC NRBC/100 WBC Diff 0.08 H (0.00-0.01) X 10*3/uL Immature Plt Fraction 9.3 H (1.1-6.1) % Macrocytosis Marked A PT (10.0-12.5) sec INR (<1.2) Sodium 130 L (137-145) mmol/L Potassium 3.4 L (3.5-5.1) mmol/L Carbon Dioxide 19 L (22-30) mmol/L Glucose 105 H (74-99) mg/dL Calcium 7.5 L (8.4-10.2) mg/dL Phosphorus 1.3 L (2.5-4.5) mg/dL Total Bilirubin 6.6 H (0.2-1.3) mg/dL AST 63 H (14-36) U/L Total Protein 5.2 L (6.3-8.2) g/dL Albumin 2.8 L (3.5-5.0) g/dL Crossmatch
--- NOTE | 2024-02-21 12:08 | P.PN ---
Subjective Progress Note Date: 02/21/24 Principal diagnosis: acute blood loss anemia acute on chronic anemia, monitor and trend hemoglobin closely keep her over 7-8 GI bleed likely upper occurred status post endoscopy found to have a small 0.5 cm ulcer nonbleeding with nonbleeding varices, continue PPI Cirrhosis, monitor and trend liver enzymes closely Cholecystitis and cholelithiasis, ultrasound failed to reveal choledocholithiasis, general surgery is following 02/21/2024, patient seen eval examined, he states posterior packed RBC, bowel movements are now brown no more dark stool has been noted, hemoglobin today is 8.6, chemistry reviewed sodium 1:30 position 3.4, BUN/creatinine 9.7 to platelet count at 39I will continue to trend labs and clinical status 02/20/2024, patient seen eval examined during roundsobvious bleeding has been noted but patient is still having dark stool, hemoglobin drop down to 6.9, platelet count is just 44,000 patient is getting 2 units of packed RBC, medications reviewed patient is on cephapirin Protonix and Decadron and Ativan along with Dilaudid for pain control 44-year-old female who presented into the [facility] 3 days ago with upper abdominal pain extensive workup done including computed tomography scan labwork and ultrasound she was noted to be heme positive with leukocytosis and elevated liver enzymes along with lobe and, the computed tomography scan revealed presence of hydropic gallbladder with ultrasound cystoscopy acute cholecystitis patient was treated with Rocephin and Flagyl and subsequently transferred to [facility] for advanced level of care.On arrival she was afebrile hemodynamically stable but with a systolic blood pressure oxygen 98% patient was admitted with GI doctor, and Dr. Patino for general surgery on consulther labs were significant obesity count of 11.1 and hemoglobin at 8.3/24 platelet count was 71, patient underwent endoscopy by Dr. Garcia and 0.5 cm ulcerated nonbleedingin antrum with distal esophageal varices with no stigmata of bleeding and evidence of mild gastritis, surgical services following closely prior medical history significant for a GERD, cirrhosis of liver, history of peptic ulcer disease, with prior multiple endoscopy as well as paracentesisdetails of bed however not available Objective - Vital Signs Vital signs: Vital Signs Temp 98.3 F 02/21/24 08:00 Pulse 87 07/21/24 08:00 Resp 19 02/21/24 08:00 BP 115/67 02/21/24 08:00 Pulse Ox 95 02/21/24 08:00 FiO2 Intake & Output 02/20/24 02/21/24 02/21/24 18:59 06:59 18:59 Intake Total 980 1380 Balance 980 1380 Intake: Intake, IV Titration 1140 Amount Cefepime 2 gm In Sodium 100 Chloride 0.9% 100 ml @ 200 mls/hr IVPB Q12H [facility] Rx#:[id number] Sodium Chloride 0.9% 1, 1040 000 ml @ 130 mls/hr IV . Q7H42M [facility] Rx#:[id number] Oral 360 240 Blood Product 620 Rc As-1 Unit 310 [id number] Rc As-1 Unit 310 [id number] Other: Voiding Method Toilet # Voids 4 2 # Bowel Movements 1 - Exam General appearance: The patient is alert, oriented, appears in no acute distress. HET: Head is normocephalic and atraumatic. Conjunctiva pink. Sclera anicteric. Neck: Supple without lymphadenopathy. Trachea midline. Heart: Regular. Lungs: Equal expansion, normal respiratory effort. Abdomen: Soft, mild tenderness epigastric region, nondistended. Skin: No rashes. No jaundice. Extremities: Normal skin color and turgor. No pedal edema. Neurological: No focal deficits. somnolent but arousable post procedure - Labs CBC & Chem 7: 02/21/24 03:25 02/21/24 01:30 Labs: Abnormal Lab Results - Last 24 Hours (Table) 02/19/24 02/20/24 02/20/24 Range/Units 05:49 19:50 19:50 RBC 2.51 L (3.80-5.40) m/uL Hgb 9.3 L (11.4-16.0) gm/dL Hct 27.0 L (34.0-46.0) % MCV 107.9 H (80.0-100.0) fL MCH 37.0 H (25.0-35.0) pg RDW 18.2 H (11.5-15.5) % Plt Count 54 L (150-450) k/uL Immature Gran # (0.00-0.04) X 10*3/uL Nucleated RBCs (0-0) /100 WBC NRBC/100 WBC Diff (0.00-0.01) X 10*3/uL Immature Plt Fraction (1.1-6.1) % Macrocytosis Marked A PT 13.2 H (10.0-12.5) sec INR 1.2 H (<1.2) Sodium (137-145) mmol/L Potassium (3.5-5.1) mmol/L Carbon Dioxide (22-30) mmol/L Glucose (74-99) mg/dL Calcium (8.4-10.2) mg/dL Phosphorus (2.5-4.5) mg/dL Total Bilirubin (0.2-1.3) mg/dL AST (14-36) U/L Total Protein (6.3-8.2) g/dL Albumin (3.5-5.0) g/dL Crossmatch See Detail 02/21/24 02/21/24 02/21/24 Range/Units 01:20 01:30 03:25 RBC 2.46 L 2.35 L (3.80-5.40) m/uL Hgb 9.1 L 8.6 L (11.4-16.0) gm/dL Hct 26.7 L 25.3 L (34.0-46.0) % MCV 108.8 H 107.7 H (80.0-100.0) fL MCH 36.9 H 36.6 H (25.0-35.0) pg RDW 18.1 H 18.8 H (11.5-15.5) % Plt Count 47 L 39 L (150-450) k/uL Immature Gran # 0.17 H (0.00-0.04) X 10*3/uL Nucleated RBCs 1 H (0-0) /100 WBC NRBC/100 WBC Diff 0.08 H (0.00-0.01) X 10*3/uL Immature Plt Fraction 9.3 H (1.1-6.1) % Macrocytosis Marked A PT (10.0-12.5) sec INR (<1.2) Sodium 130 L (137-145) mmol/L Potassium 3.4 L (3.5-5.1) mmol/L Carbon Dioxide 19 L (22-30) mmol/L Glucose 105 H (74-99) mg/dL Calcium 7.5 L (8.4-10.2) mg/dL Phosphorus 1.3 L (2.5-4.5) mg/dL Total Bilirubin 6.6 H (0.2-1.3) mg/dL AST 63 H (14-36) U/L Total Protein 5.2 L (6.3-8.2) g/dL Albumin 2.8 L (3.5-5.0) g/dL Crossmatch Assessment and Plan Assessment: acute blood loss anemia Thrombocytopenia acute on chronic anemia, monitor and trend hemoglobin closely keep her over 7-8 GI bleed likely upper occurred status post endoscopy found to have a small 0.5 cm ulcer nonbleeding with nonbleeding varices, continue PPI Cirrhosis, monitor and trend liver enzymes closely Cholecystitis and cholelithiasis, ultrasound failed to reveal cho ledocholithiasis, general surgery is following Plan: as above, patient is being transferred to unit packed RBC, will check coags as wellif quality breath he seen that will require correction Time with Patient: Greater than 30
[2024-02-21 14:42] LABS: Anisocytosis Slight; Basophils % (A) 0 %; Eosinophils # (A) 0.2 k/uL (0-0.7); Eosinophils % (A) 3 %; HCT 25.7 % (34.0-46.0); HGB 8.7 gm/dL (11.4-16.0); Hypochromasia Slight; Lymphocytes # (A) 0.8 k/uL (1.0-4.8); Lymphocytes % (A) 15 %; MCH 36.5 pg (25.0-35.0); MCHC 33.8 g/dL (31.0-37.0); Macrocytosis Marked; Mean Platelet Volume 10.4; Monocytes # (A) 0.2 k/uL (0-1.0); Monocytes % (A) 4 %; Neutrophils # (A) 4.2 k/uL (1.3-7.7); Neutrophils % (A) 76 %; Poikilocytosis Slight; RBC 2.38 m/uL (3.80-5.40); RDW 18.3 % (11.5-15.5); WBC 5.6 k/uL (3.8-10.6)
[2024-02-21 14:45] LABS: Platelet Count 44 k/uL (150-450)
[2024-02-21] MEDS: POTASSIUM BICARBONATE/CIT AC 20 MEQ TABLET.EFF NG-TUBE SCH (15:56)
[2024-02-21 19:21] LABS: Anisocytosis Slight; Basophils % (A) 0 %; Eosinophils # (A) 0.1 k/uL (0-0.7); Eosinophils % (A) 3 %; HCT 26.2 % (34.0-46.0); HGB 8.8 gm/dL (11.4-16.0); Hypochromasia Slight; Lymphocytes # (A) 0.9 k/uL (1.0-4.8); Lymphocytes % (A) 17 %; MCH 36.5 pg (25.0-35.0); MCHC 33.6 g/dL (31.0-37.0); MCV 108.7 fL (80.0-100.0); Macrocytosis Marked; Mean Platelet Volume 9.5; Monocytes # (A) 0.3 k/uL (0-1.0); Monocytes % (A) 5 %; Neutrophils # (A) 3.9 k/uL (1.3-7.7); Neutrophils % (A) 72 %; Poikilocytosis Slight; RBC 2.41 m/uL (3.80-5.40); RDW 18.9 % (11.5-15.5); WBC 5.4 k/uL (3.8-10.6)
[2024-02-21 19:31] LABS: Platelet Count 49 k/uL (150-450)
[2024-02-22 00:47] LABS: Anisocytosis Slight; Basophils % (A) 0 %; Eosinophils # (A) 0.1 k/uL (0-0.7); Eosinophils % (A) 2 %; HCT 25.5 % (34.0-46.0); HGB 8.5 gm/dL (11.4-16.0); Hypochromasia Slight; Lymphocytes # (A) 0.9 k/uL (1.0-4.8); Lymphocytes % (A) 17 %; MCH 36.4 pg (25.0-35.0); MCHC 33.2 g/dL (31.0-37.0); Macrocytosis Marked; Mean Platelet Volume 10.1; Monocytes # (A) 0.3 k/uL (0-1.0); Monocytes % (A) 5 %; Neutrophils # (A) 3.6 k/uL (1.3-7.7); Neutrophils % (A) 72 %; RBC 2.33 m/uL (3.80-5.40)
[2024-02-22 00:49] LABS: MCV 109.7 fL (80.0-100.0); Platelet Count 43 k/uL (150-450)
[2024-02-22] MEDS: POTASSIUM BICARBONATE/CIT AC 20 MEQ TABLET.EFF PO ONE (01:37)
[2024-02-22 09:06] LABS: Magnesium 1.7 mg/dL (1.5-2.4); Phosphorus 1.7 mg/dL (2.4-5.1)
[2024-02-22 09:48] LABS: Basophils # (A) 0.03 X 10*3/uL (0.00-0.10); Basophils % (A) 0.6 %; Eosinophils # (A) 0.11 X 10*3/uL (0.04-0.35); Eosinophils % (A) 2.1 %; HCT 24.7 % (37.2-46.3); HGB 8.4 g/dL (12.0-15.0); Immature Platelet Fraction 10.5 % (1.1-6.1); Lymphocytes # (A) 0.93 X 10*3/uL (0.90-5.00); MCH 37.5 pg (27.0-32.0); MCV 110.3 FL (80.0-97.0); Mean Platelet Volume 12.3 FL (9.5-12.2); Monocytes # (A) 0.34 X 10*3/uL (0.20-1.00); Monocytes % (A) 6.6 %; NRBC Per 100 WBC 0.04 X 10*3/uL (0.00-0.01); Neutrophils # (A) 3.55 X 10*3/uL (1.80-7.70); Neutrophils % (A) 68.8 %; Platelet Count 36 X 10*3/uL (140-440); RBC 2.24 X 10*6/uL (4.10-5.20); RDW 19.1 % (11.5-14.5); WBC 5.16 X 10*3/uL (4.50-10.00)
[2024-02-22 09:50] LABS: ALT 24 U/L (8-44); AST 47 U/L (13-35); Albumin 3.1 g/dL (3.8-4.9); Albumin/Globulin Ratio 1.82 Ratio (1.60-3.17); Alkaline Phosphatase 105 U/L (41-126); BUN/Creat Ratio 6.56 Ratio (12.00-20.00); Blood Urea Nitrogen 5.9 mg/dL (9.0-27.0); Calcium 7.7 mg/dL (8.7-10.3); Carbon Dioxide 18.4 mmol/L (21.6-31.8); Chloride 108 mmol/L (96-109); Globulin 1.7 g/dL (1.6-3.3); Glucose 116 mg/dL (70-110); Potassium 3.8 mmol/L (3.5-5.5); Sodium 134 mmol/L (135-145); Total Bilirubin 1.6 mg/dL (0.3-1.2); Total Protein 4.8 g/dL (6.2-8.2)
--- NOTE | 2024-02-22 12:07 | P.PN ---
Subjective Progress Note Date: 02/22/24 Principal diagnosis: acute blood loss anemia acute on chronic anemia, monitor and trend hemoglobin closely keep her over 7-8 GI bleed likely upper occurred status post endoscopy found to have a small 0.5 cm ulcer nonbleeding with nonbleeding varices, continue PPI Cirrhosis, monitor and trend liver enzymes closely Cholecystitis and cholelithiasis, ultrasound failed to reveal choledocholithiasis, general surgery is following 02/22/2024, patient seen eval examined the rounds labs reviewed medications reviewed care plan discussed, patient remains on broad-spectrum antibiotics along with Ativan and pain control patient has been gently rehydrated as well some trace swelling has been noted would put back on Lasix as patient appears to developing third spacing and anasarca.labs from today reviewed hemoglobin remained stable 8.4, platelet count low but stable 36,000, sodium is up to 134 potassium 3.8 BUN and creatinine within normal range AST/ALT 47/24 total bilirubin is 1.6 02/21/2024, patient seen eval examined, he states posterior packed RBC, bowel movements are now brown no more dark stool has been noted, hemoglobin today is 8.6, chemistry reviewed sodium 1:30 position 3.4, BUN/creatinine 9.7 to platelet count at 39I will continue to trend labs and clinical status 02/20/2024, patient seen eval examined during roundsobvious bleeding has been noted but patient is still having dark stool, hemoglobin drop down to 6.9, platelet count is just 44,000 patient is getting 2 units of packed RBC, medications reviewed patient is on cephapirin Protonix and Decadron and Ativan along with Dilaudid for pain control 44-year-old female who presented into the [facility] 3 days ago with upper abdominal pain extensive workup done including computed tomography scan labwork and ultrasound she was noted to be heme positive with leukocytosis and elevated liver enzymes along with lobe and, the computed tomography scan revealed presence of hydropic gallbladder with ultrasound cystoscopy acute cholecystitis patient was treated with Rocephin and Flagyl and subsequently transferred to [facility] for advanced level of care.On arrival she was afebrile hemodynamically stable but with a systolic blood pressure oxygen 98% patient was admitted with GI doctor, and Dr. Patino for general surgery on consulther labs were significant obesity count of 11.1 and hemoglobin at 8.3/24 platelet count was 71, patient underwent endoscopy by Dr. Garcia and 0.5 cm ulcerated no nbleedingin antrum with distal esophageal varices with no stigmata of bleeding and evidence of mild gastritis, surgical services following closely prior medical history significant for a GERD, cirrhosis of liver, history of peptic ulcer disease, with prior multiple endoscopy as well as paracentesis details of bed however not available Objective - Vital Signs Vital signs: Vital Signs Temp 98.7 F 02/22/24 07:22 Pulse 90 02/22/24 07:22 Resp 18 02/22/24 07:22 BP 115/74 02/22/24 07:22 Pulse Ox 95 02/22/24 07:22 FiO2 Intake & Output 02/21/24 02/22/24 02/22/24 18:59 06:59 18:59 Intake Total 1080 Balance 1080 Intake: Oral 1080 Other: Voiding Method Toilet # Voids 3 2 # Bowel Movements 0 - Exam General appearance: The patient is alert, oriented, appears in no acute distress. HET: Head is normocephalic and atraumatic. Conjunctiva pink. Sclera anicteric. Neck: Supple without lymphadenopathy. Trachea midline. Heart: Regular. Lungs: Equal expansion, normal respiratory effort. Abdomen: Soft, mild tenderness epigastric region, nondistended. Skin: No rashes. No jaundice. Extremities: Normal skin color and turgor. +1 pedal edema. Neurological: No focal deficits. somnolent but arousable post procedure - Labs CBC & Chem 7: 02/22/24 02:26 02/22/24 02:26 Labs: Abnormal Lab Results - Last 24 Hours (Table) 02/21/24 02/21/24 02/21/24 Range/Units 14:24 14:24 18:57 RBC 2.38 L 2.41 L (3.80-5.40) m/uL Hgb 8.7 L 8.8 L (11.4-16.0) gm/dL Hct 25.7 L 26.2 L (34.0-46.0) % MCV 108.0 H 108.7 H (80.0-100.0) fL MCH 36.5 H 36.5 H (25.0-35.0) pg RDW 18.3 H 18.9 H (11.5-15.5) % Plt Count 44 L 49 L (150-450) k/uL MPV (9.5-12.2) FL Immature Gran # (0.00-0.04) X 10*3/uL Lymphocytes # 0.8 L 0.9 L (1.0-4.8) k/uL NRBC/100 WBC Diff (0.00-0.01) X 10*3/uL Immature Plt Fraction (1.1-6.1) % Macrocytosis Marked A Marked A Sodium (135-145) mmol/L Potassium 3.4 L (3.5-5.1) mmol/L Carbon Dioxide (21.6-31.8) mmol/L BUN (9.0-27.0) mg/dL BUN/Creatinine Ratio (12.00-20.00) Ratio Glucose (70-110) mg/dL Calcium (8.7-10.3) mg/dL Phosphorus (2.4-5.1) mg/dL Total Bilirubin (0.3-1.2) mg/dL AST (13-35) U/L Total Protein (6.2-8.2) g/dL Albumin (3.8-4.9) g/dL 02/22/24 02/22/24 02/22/24 Range/Units 00:08 02:26 02:26 RBC 2.33 L 2.24 L (3.80-5.40) m/uL Hgb 8.5 L 8.4 L (11.4-16.0) gm/dL Hct 25.5 L 24.7 L (34.0-46.0) % MCV 109.7 H 110.3 H (80.0-100.0) fL MCH 36.4 H 37.5 H (25.0-35.0) pg RDW 19.0 H 19.1 H (11.5-15.5) % Plt Count 43 L 36 L (150-450) k/uL MPV 12.3 H (9.5-12.2) FL Immature Gran # 0.20 H (0.00-0.04) X 10*3/uL Lymphocytes # 0.9 L (1.0-4.8) k/uL NRBC/100 WBC Diff 0.04 H (0.00-0.01) X 10*3/uL Immature Plt Fraction 10.5 H (1.1-6.1) % Macrocytosis Marked A Sodium 134 L (135-145) mmol/L Potassium (3.5-5.1) mmol/L Carbon Dioxide 18.4 L (21.6-31.8) mmol/L BUN 5.9 L (9.0-27.0) mg/dL BUN/Creatinine Ratio 6.56 L (12.00-20.00) Ratio Glucose 116 H (70-110) mg/dL Calcium 7.7 L (8.7-10.3) mg/dL Phosphorus 1.7 L (2.4-5.1) mg/dL Total Bilirubin 1.6 H (0.3-1.2) mg/dL AST 47 H (13-35) U/L Total Protein 4.8 L (6.2-8.2) g/dL Albumin 3.1 L (3.8-4.9) g/dL Assessment and Plan Assessment: acute blood loss anemia Thrombocytopenia increasing her risk is developing edema and anasarca acute on chronic anemia, monitor and trend hemoglobin closely keep her over 7-8 GI bleed likely upper occurred status post endoscopy found to have a small 0.5 cm ulcer nonbleeding with nonbleeding varices, continue PPI Cirrhosis, monitor and trend liver enzymes closely Cholecystitis and cholelithiasis, ultrasound failed to reveal choledocholithiasis, general surgery is following Plan: as above, patient is status post 2 unit packed RBC, 48 hours ago hemoglobin has been stable, guaiacs is stable no more bleeding has been noted his stools now brown, will give Lasix 40 mg extra dose Time with Patient: Greater than 30
[2024-02-22] MEDS: FUROSEMIDE 10 MG/ML 4 ML VIAL IV STA (12:43)
--- NOTE | 2024-02-22 14:24 | P.PN ---
Subjective Progress Note Date: 02/22/24 CHIEF COMPLAINT: GI bleed HISTORY OF PRESENT ILLNESS: Patient is a further rectal bleeding. Stools are b rown. Afebrile. WBC 5.16 Hgb 8.4 platelets 36 total bilirubin 1.6 AST 47 ALT 24 alk phos 105 PHYSICAL EXAM: VITAL SIGNS: Reviewed. GENERAL: Well-developed in no acute distress. ABDOMEN: Soft. Nondistended. Nontender. NEUROLOGIC: Alert and oriented. Cranial nerves II through XII grossly intact. ASSESSMENT: 1. Acute GI bleed with black stools. Status post EGD revealing antral ulcer with no active bleeding, small distal esophageal varices, and mild to moderate portal hypertensive gastropathy. 2. History of daily alcohol use 3. Cholelithiasis and gallbladder wall thickening noted on imaging 4. History of liver cirrhosis PLAN: -HIDA scan ordered for evaluation of right upper quadrant pain and possible cystic duct obstruction -Continue to observe -If patient shows any signs of bleeding she will undergo colonoscopy -Continue PPI Physician Engagement Executive note has been reviewed by physician. Signing provider agrees with the documented findings, assessment, and plan of care. Objective - Vital Signs Vital signs: Vital Signs Temp 98.7 F 02/22/24 07:22 Pulse 90 02/22/24 07:22 Resp 18 02/22/24 07:22 BP 115/74 02/22/24 07:22 Pulse Ox 95 02/22/24 07:22 FiO2 Intake & Output 02/21/24 02/22/24 02/22/24 18:59 06:59 18:59 Intake Total 1080 Balance 1080 Intake: Oral 1080 Other: Voiding Method Toilet # Voids 3 2 # Bowel Movements 0 - Labs CBC & Chem 7: 02/22/24 02:26 02/22/24 02:26 Labs: Abnormal Lab Results - Last 24 Hours (Table) 02/21/24 02/21/24 02/21/24 Range/Units 14:24 14:24 18:57 RBC 2.38 L 2.41 L (3.80-5.40) m/uL Hgb 8.7 L 8.8 L (11.4-16.0) gm/dL Hct 25.7 L 26.2 L (34.0-46.0) % MCV 108.0 H 108.7 H (80.0-100.0) fL MCH 36.5 H 36.5 H (25.0-35.0) pg RDW 18.3 H 18.9 H (11.5-15.5) % Plt Count 44 L 49 L (150-450) k/uL MPV (9.5-12.2) FL Immature Gran # (0.00-0.04) X 10*3/uL Lymphocytes # 0.8 L 0.9 L (1.0-4.8) k/uL NRBC/100 WBC Diff (0.00-0.01) X 10*3/uL Immature Plt Fraction (1.1-6.1) % Macrocytosis Marked A Marked A Sodium (135-145) mmol/L Potassium 3.4 L (3.5-5.1) mmol/L Carbon Dioxide (21.6-31.8) mmol/L BUN (9.0-27.0) mg/dL BUN/Creatinine Ratio (12.00-20.00) Ratio Glucose (70-110) mg/dL Calcium (8.7-10.3) mg/dL Phosphorus (2.4-5.1) mg/dL Total Bilirubin (0.3-1.2) mg/dL AST (13-35) U/L Total Protein (6.2-8.2) g/dL Albumin (3.8-4.9) g/dL 02/22/24 02/22/24 02/22/24 Range/Units 00:08 02:26 02:26 RBC 2.33 L 2.24 L (3.80-5.40) m/uL Hgb 8.5 L 8.4 L (11.4-16.0) gm/dL Hct 25.5 L 24.7 L (34.0-46.0) % MCV 109.7 H 110.3 H (80.0-100.0) fL MCH 36.4 H 37.5 H (25.0-35.0) pg RDW 19.0 H 19.1 H (11.5-15.5) % Plt Count 43 L 36 L (150-450) k/uL MPV 12.3 H (9.5-12.2) FL Immature Gran # 0.20 H (0.00-0.04) X 10*3/uL Lymphocytes # 0.9 L (1.0-4.8) k/uL NRBC/100 WBC Diff 0.04 H (0.00-0.01) X 10*3/uL Immature Plt Fraction 10.5 H (1.1-6.1) % Macrocytosis Marked A Sodium 134 L (135-145) mmol/L Potassium (3.5-5.1) mmol/L Carbon Dioxide 18.4 L (21.6-31.8) mmol/L BUN 5.9 L (9.0-27.0) mg/dL BUN/Creatinine Ratio 6.56 L (12.00-20.00) Ratio Glucose 116 H (70-110) mg/dL Calcium 7.7 L (8.7-10.3) mg/dL Phosphorus 1.7 L (2.4-5.1) mg/dL Total Bilirubin 1.6 H (0.3-1.2) mg/dL AST 47 H (13-35) U/L Total Protein 4.8 L (6.2-8.2) g/dL Albumin 3.1 L (3.8-4.9) g/dL
--- NOTE | 2024-02-23 11:29 | NM ---
Nuclear medicine hepatobiliary scan. HISTORY: Pain. DOSAGE: The patient received 4.8 mCi of Technetium 99m Choletec. FINDINGS: There is normal hepatic extraction. The gallbladder is not seen at 2 hours.. There is nickie iary to bowel clearance by 10 minutes. IMPRESSION: 1. Biliary to bowel clearance at 10 minutes is within normal limits. 2. Gallbladder is not seen at 4 hours correlate for cholecystitis.
--- NOTE | 2024-02-23 12:59 | P.PN ---
Subjective Progress Note Date: 02/23/24 CHIEF COMPLAINT: GI bleed HISTORY OF PRESENT ILLNESS: Patient has no further rectal bleeding. Stools are brown. Patient does complain of right upper quadrant tenderness. Afebrile. HIDA scan results report biliary to bowel clearance at 10 minutes is within normal limits. Gallbladder is not seen at 4 hours correlate for cholecystitis. HIDA scan results reviewed with Dr. Corrigan. Patient seen and examined with Dr. Corrigan PHYSICAL EXAM: VITAL SIGNS: Reviewed. GENERAL: Well-developed in no acute distress. ABDOMEN: Soft. Nondistended. Tender with palpation right upper quadrant NEUROLOGIC: Alert and oriented. Cranial nerves II through XII grossly intact. ASSESSMENT: 1. Chronic cholecystitis. HIDA scan reports gallbladder not seen at 4 hours 2. Acute GI bleed with black stools. Status post EGD revealing antral ulcer with no active bleeding, small distal esophageal varices, and mild to moderate portal hypertensive gastropathy. 3. History of daily alcohol use 4. Cholelithiasis and gallbladder wall thickening noted on imaging 5. History of liver cirrhosis PLAN: -Patient can be discharged from surgical standpoint with plans for outpatient laparoscopic cholecystectomy with Dr. Corrigan -Continue PPI after discharge Physician Truck Trailer Mechanic note has been reviewed by physician. Signing provider agrees with the documented findings, assessment, and plan of care. Objective - Vital Signs Vital signs: Vital Signs Temp 98.1 F 02/23/24 09:45 Pulse 92 02/23/24 09:45 Resp 18 02/23/24 09:45 BP 114/57 02/23/24 09:45 Pulse Ox 95 02/23/24 09:45 FiO2 Intake & Output 02/22/24 02/23/24 02/23/24 18:59 06:59 18:59 Other: Voiding Method Toilet # Voids 1 2 # Bowel Movements 0 - Labs CBC & Chem 7: 02/22/24 02:26 02/22/24 02:26
--- NOTE | 2024-02-23 23:03 | PN ---
PROGRESS NOTE SUBJECTIVE: Admitted for possible cholecystitis. She had a HIDA scan done today , so she definitely has cholecystitis. Waiting for Surgery to possibly do a cholecystectomy. Chronic cholecystitis, acute GI bleed with black stools. EGD was negative. She has small distal esophageal varices, portal hypertension, daily alcohol, cholelithiasis, gallbladder and liver disease. Outpatient laparoscopic cholecystectomy. PPIs. Wait for GI to clear her. OBJECTIVE: VITAL SIGNS: Blood pressure 114/66, O2 of 98%, temp 98.3, pulse 88, respiratory rate 16 to 18. LABORATORY DATA: Labs show hemoglobin is 8.4, sodium 134, potassium 3.8, total bilirubin remains high at 1.6. Continue current treatment. Prognosis guarded. Wait for GI to recommend discharge. Possibly get her home soon. Prognosis guarded. MMODL / IJN: [id number] /
[2024-02-24 07:29] VITALS: RESP 16
[2024-02-24 11:47] LABS: Anisocytosis Slight; Basophils % (A) 0 %; Eosinophils # (A) 0.1 k/uL (0-0.7); Eosinophils % (A) 3 %; HCT 26.6 % (34.0-46.0); HGB 8.9 gm/dL (11.4-16.0); Hypochromasia Moderate; Lymphocytes # (A) 0.6 k/uL (1.0-4.8); Lymphocytes % (A) 19 %; MCH 37.2 pg (25.0-35.0); MCHC 33.3 g/dL (31.0-37.0); MCV 111.6 fL (80.0-100.0); Macrocytosis Marked; Mean Platelet Volume 10.8; Monocytes # (A) 0.3 k/uL (0-1.0); Monocytes % (A) 9 %; Neutrophils # (A) 1.9 k/uL (1.3-7.7); Neutrophils % (A) 65 %; Poikilocytosis Slight; RBC 2.38 m/uL (3.80-5.40); RDW 18.6 % (11.5-15.5)
[2024-02-24 11:49] LABS: Platelet Count 45 k/uL (150-450)
[2024-02-24 12:29] VITALS: BP 111/69; TEMP 97.8
[2024-02-24] MEDS: IPRATROPIUM-ALBUTEROL 3 ML NEB INHALATION SCH (12:55)
[2024-02-24 12:59] VITALS: PULSE 60
--- NOTE | 2024-02-24 13:36 | PN ---
PROGRESS NOTE SUBJECTIVE: The patient was possibly going to go home today. She is awaiting some clearance from hematology. Hemoglobin is up to 8.9. White count is 3. Platelets I guess are increased from 36 to 45, which has improved today, so possibly could discharge her home. Follow up as an outpatient. Please see further orders. OBJECTIVE: CARDIOVASCULAR: S1, S2. GENERAL : She is tolerating oral fluids. VITAL SIGNS: Temperature 97.8, blood pressure 111/69, O2 98% on room air, pulse 81, respiratory rate 16. ENDOCRINE: BMI is over 40. GI: Soft. HEMATOLOGY: Negative for Homans. PSYCH: Fair mood and affect. NEUROLOGIC: Alert and oriented x3. Follow up as an outpatient. Please see further orders. MMODL / IJN: [id number] /
--- NOTE | 2024-02-24 14:14 | P.PN ---
Subjective Progress Note Date: 02/24/24 CHIEF COMPLAINT: GI bleed HISTORY OF PRESENT ILLNESS: Patient is tolerating diet. She denies any nausea or vomiting. She reports some mild discomfort in the left upper quadrant. Improvement in her right upper quadrant pain. Having bowel movements. No blood in the stools. Afebrile. WBC 3.0 Hgb 8.9 platelets 45 Patient seen and examined with Dr. Corrigan PHYSICAL EXAM: VITAL SIGNS: Reviewed. GENERAL: Well-developed in no acute distress. ABDOMEN: Soft. Nondistended. Tender with palpation right upper quadrant NEUROLOGIC: Alert and oriented. Cranial nerves II through XII grossly intact. ASSESSMENT: 1. Chronic cholecystitis. HIDA scan reports gallbladder not seen at 4 hours 2. Acute GI bleed with black stools. Status post EGD revealing antral ulcer with no active bleeding, small distal esophageal varices, and mild to moderate portal hypertensive gastropathy. 3. History of daily alcohol use 4. Cholelithiasis and gallbladder wall thickening noted on imaging 5. History of liver cirrhosis PLAN: -Patient can be discharged from surgical standpoint with plans for outpatient laparoscopic cholecystectomy with Dr. Corrigan -Continue PPI after discharge Physician Surface Grinding Machine Hand note has been reviewed by physician. Signing provider agrees with the documented findings, assessment, and plan of care. Objective - Vital Signs Vital signs: Vital Signs Temp 97.8 F 02/24/24 11:53 Pulse 60 02/24/24 13:05 Resp 16 02/24/24 11:53 BP 111/69 02/24/24 11:53 Pulse Ox 98 02/24/24 11:53 FiO2 Intake & Output 02/23/24 02/24/24 02/24/24 18:59 06:59 18:59 Intake Total 1320 240 Balance 1320 240 Intake: Oral 1320 240 Other: Voiding Method Toilet Toilet Toilet # Voids 3 2 - Labs CBC & Chem 7: 02/24/24 11:12 02/22/24 02:26 Labs: Abnormal Lab Results - Last 24 Hours (Table) 02/24/24 Range/Units 11:12 WBC 3.0 L (3.8-10.6) k/uL RBC 2.38 L (3.80-5.40) m/uL Hgb 8.9 L (11.4-16.0) gm/dL Hct 26.6 L (34.0-46.0) % MCV 111.6 H (80.0-100.0) fL MCH 37.2 H (25.0-35.0) pg RDW 18.6 H (11.5-15.5) % Plt Count 45 L (150-450) k/uL Lymphocytes # 0.6 L (1.0-4.8) k/uL Macrocytosis Marked A
[2024-02-24 15:29] LABS: % Iron Saturation 9.29 (12.00-45.00)
[2024-02-24] MEDS ORDERED: SYMBICORT 160-4.5 MCG INHALER INHALATION SCH (20:00)
== END 2024-02-24 16:36 | disposition home or self-care (01) | DRG 241 ==
LOC: SUPCPDRO 19:54 → EC 19:54 → 6NMEDSUR 21:08 → 5NMEDONC 21:49
PROVIDERS: ADMIT Family Medicine; ATTEND Family Medicine
PROC: 0DB78ZX Excision of Stomach, Pylorus, Via Natural or Artificial Opening Endoscopic, Diagnostic (ICD-10-PCS; principal; 2024-02-19 07:30)
PROC: 30233N1 Transfusion of Nonautologous Red Blood Cells into Peripheral Vein, Percutaneous Approach (ICD-10-PCS; 2024-02-20)
DX: K25.4 Chronic or unspecified gastric ulcer with hemorrhage (principal); D69.6 Thrombocytopenia, unspecified; D62 Acute posthemorrhagic anemia; K31.89 Other diseases of stomach and duodenum; K82.1 Hydrops of gallbladder; K70.30 Alcoholic cirrhosis of liver without ascites; K76.6 Portal hypertension; K80.10 Calculus of gallbladder with chronic cholecystitis without obstruction; F17.200 Nicotine dependence, unspecified, uncomplicated; F31.9 Bipolar disorder, unspecified; F41.9 Anxiety disorder, unspecified; I85.10 Secondary esophageal varices without bleeding; E66.9 Obesity, unspecified; Z68.37 Body mass index [BMI] 37.0-37.9, adult; Z79.899 Other long term (current) drug therapy; Z87.19 Personal history of other diseases of the digestive system; Z28.310 Unvaccinated for COVID-19; Z28.21 Immunization not carried out because of patient refusal
CPT/HCPCS: 43239; 78226; 80053; 83540; 83550; 83605; 83690; 83735; 84100; 84132; 84702; 85025; 85610; 85730; 86850; 86900; 86901; 86920; 88305; 88342; 94640; 96374; 96375; 99285

== ENCOUNTER 2024-03-21 11:00 | Inpatient (IN) | payer OTHER ==
[~2024-03-21 11:00] MED LIST: ACETAMINOPHEN TAB 500 MG TAB ONE; DEXAMETHASONE SOD PHOSPHATE 4 MG/ML 1 ML VIAL ONE; ESMOLOL 100 MG/10 ML VIAL ONE; GLYCOPYRROLATE 0.2 MG/ML 2 ML VIAL ONE; HEPARIN SODIUM,PORCINE 5,000 UNIT/ML 1 ML VIAL ONE; HYDROmorphone (PF) 1 MG/ML ONE; LACTATED RINGERS 1,000 ML BAG ONE; LIDOCAINE 1% INJ 10MG/ML (20 ML MDV) ONE; MIDAZOLAM 2 MG/2 ML VIAL ONE; NEOSTIGMINE 1 MG/ML 10 ML VIAL ONE; ONDANSETRON 4 MG/2 ML VIAL ONE; PROPOFOL 10 MG/ML 20 ML VIAL IV ONE; ROCURONIUM 10 MG/ML (5 ML VIAL) IV ONE; SODIUM CHLORIDE 0.9% 50 ML BAG IV ONE; SUCCINYLCHOLINE CHLORIDE 200 MG/10 ML VIAL IV ONE; ceFAZolin 10 GM VIAL IVPB ONE; fentaNYL (PF) 50 MCG/ML 2 ML AMP ONE
[2024-03-21] MEDS ORDERED: HYDROmorphone 0.5 MG/0.5 ML SYRINGE ONE ×2 (11:55→12:24)
[2024-03-21] MEDS ORDERED: SODIUM CHLORIDE 0.9% 1,000 ML BAG ONE (12:00)
[2024-03-21] MEDS ORDERED: LIDOCAINE 1%-EPI 1:100,000 20 ML VIAL ONE (12:00)
[2024-03-21] MEDS ORDERED: HYDROmorphone 1 MG/ML 1 ML SYRINGE ONE (16:14)
[2024-03-22] MEDS ORDERED: HYDROmorphone 1 MG/ML 1 ML SYRINGE ONE ×4 (02:22→17:49)
[2024-03-22] MEDS ORDERED: GABAPENTIN 100 MG CAP ONE ×3 (05:59→21:06)
[2024-03-22] MEDS ORDERED: SPIRONOLACTONE 25 MG TAB ONE (10:48)
[2024-03-22] MEDS ORDERED: POTASSIUM CHLORIDE ER 20 MEQ TAB.ER PO ONE (10:49)
[2024-03-22] MEDS ORDERED: PANTOPRAZOLE 40 MG TABLET PO ONE (19:30)
[2024-03-22] MEDS ORDERED: QUEtiapine 25 MG TAB ONE ×2 (19:31→19:40)
[2024-03-22] MEDS ORDERED: SODIUM CHLORIDE 0.9% 1,000 ML BAG ONE (23:59)
[2024-03-23] MEDS ORDERED: POTASSIUM CHLORIDE ER 20 MEQ TAB.ER PO ONE (07:39)
[2024-03-23] MEDS ORDERED: SPIRONOLACTONE 25 MG TAB ONE (07:39)
[2024-03-23] MEDS ORDERED: HYDROmorphone 1 MG/ML 1 ML SYRINGE ONE (07:55)
[2024-03-23] MEDS ORDERED: HYDROcodone/APAP 5-325MG 1 EACH TAB ONE ×2 (11:09→21:57)
[2024-03-23] MEDS ORDERED: SODIUM CHLORIDE 0.9% 1,000 ML BAG ONE (16:00)
[2024-03-23] MEDS ORDERED: PANTOPRAZOLE 40 MG TABLET PO ONE (16:19)
[2024-03-23] MEDS ORDERED: GABAPENTIN 100 MG CAP ONE ×2 (16:25→21:57)
[2024-03-23] MEDS ORDERED: QUEtiapine 25 MG TAB ONE (21:56)
[2024-03-24] MEDS ORDERED: SPIRONOLACTONE 25 MG TAB ONE (08:29)
[2024-03-24] MEDS ORDERED: POTASSIUM CHLORIDE ER 20 MEQ TAB.ER PO ONE (08:30)
[2024-03-24] MEDS ORDERED: HYDROcodone/APAP 5-325MG 1 EACH TAB ONE ×2 (08:31→22:51)
[2024-03-24] MEDS ORDERED: HYDROmorphone 1 MG/ML 1 ML SYRINGE ONE (12:23)
[2024-03-24] MEDS ORDERED: GABAPENTIN 100 MG CAP ONE ×2 (14:32→21:43)
[2024-03-24] MEDS ORDERED: PANTOPRAZOLE 40 MG TABLET PO ONE (17:14)
[2024-03-24] MEDS ORDERED: QUEtiapine 25 MG TAB ONE (21:43)
[2024-03-25] MEDS ORDERED: ONDANSETRON 4 MG/2 ML VIAL IVP PRN (08:48)
[2024-03-25] MEDS ORDERED: IPRATROPIUM-ALBUTEROL 3 ML NEB IH PRN (08:53)
[2024-03-25] MEDS ORDERED: POTASSIUM CHLORIDE ER 20 MEQ TAB.ER PO ONE (09:09)
[2024-03-25] MEDS ORDERED: SPIRONOLACTONE 25 MG TAB ONE (09:10)
[2024-03-25] MEDS ORDERED: HYDROcodone/APAP 5-325MG 1 EACH TAB ONE ×5 (09:11→21:48)
[2024-03-25] MEDS ORDERED: GABAPENTIN 100 MG CAP ONE ×2 (13:16→20:35)
--- NOTE | 2024-03-25 15:56 | CONS ---
CONSULTATION For Dr. Corrigan. HISTORY OF PRESENT ILLNESS: This is a white female who is status post cholecystectomy for medical management. She is on oxygen postop. She is in a lot of abdominal pain. Started her home medicines. HOME MEDICINES: 1. Protonix 40 mg daily. 2. Seroquel 100 at night. 3. Gabapentin 300 t.i.d. 4. 3 mg at bedtime. 5. Potassium 20 mEq daily. 6. Spironolactone 100 daily. 7. Symbicort 2 puffs b.i.d. 8. Spiriva 2 puffs q.a.m. CONDITION: Stable. PROGNOSIS: Guarded. REVIEW OF SYSTEMS: A 14-point review of systems otherwise negative. PHYSICAL EXAMINATION: VITAL SIGNS: Reviewed. CARDIOVASCULAR : S1, S2. LUNGS: Transmitted upper sounds. GI: Soft. HEMATOLOGY: Negative for Homans. ABDOMEN: She has wounds over her abdomen, diffuse tenderness. PSYCH: Fair mood and affect. ASSESSMENT: She is status post cholecystectomy, asthma, COPD, GERD, bipolar 2, neuropathy. Continue current treatment. Prognosis guarded. Continue home medicines. Breathing treatments p.r.n. Follow up as an outpatient. She is medically stable. FAMILY HISTORY: Reviewed. SURGICAL HISTORY: See old chart. Medications as mentioned above. She is breathing fairly good at this point on oxygen. Please see further orders. MMODL / IJN: [id number] /
--- NOTE | 2024-03-25 15:56 | OP ---
OPERATIVE REPORT DATE OF SERVICE : 03/21/2024 PROCEDURE: Laparoscopic cholecystectomy. PREOPERATIVE DIAGNOSIS: Chronic cholecystitis. POSTOPERATIVE DIAGNOSIS: Chronic cholecystitis. JUNIOR MEDIA BUYER: None. ANESTHESIA: General endotracheal tube anesthesia. DESCRIPTION OF PROCEDURE: The patient was placed on the operating table in the supine position. She received general endotracheal tube anesthesia. Her abdomen was prepped and draped in the usual fashion. The skin was incised at the umbilicus, and then, using a Patel clamp, the umbilicus was grasped. The Veress needle was positioned into the peritoneal cavity. Position of the Veress needle was confirmed with a positive drop test. The abdomen was then insufflated. After adequate insufflation, a 5 mm trocar was placed into the peritoneal cavity. The laparoscope was placed back into the peritoneal cavity, and then, the 10 mm trocar was placed in the epigastric position, and then, 5 mm trocars were placed in the right lateral and right mid abdomen position. The patient was placed in a reverse Trendelenburg [id number] position. The gallbladder was grasped at the fundus and the infundibulum. Traction of the gallbladder was placed in a lateral cephalad position. The cystic duct was bluntly dissected. The cystic duct union between the common hepatic and common bile duct was seen. A critical view of safety was achieved. The cystic duct was then ligated with 2-0 Ethibond suture and the tie knot device. The cystic duct was then cut using the Harmonic scissors, and then, the cystic artery was divided with the Harmonic scissors. The gallbladder was removed from the liver bed using electrocautery. The specimen was brought through the 10 mm trocar site. . There was no bleeding seen. The abdomen was irrigated. The trocars were withdrawn. The skin was closed with interrupted 3-0 Monocryl sutures. Dermabond was applied. The patient tolerated the procedure well. She was sent to the recovery room in stable condition. MMODL / IJN: [id number] /
[2024-03-25] MEDS ORDERED: QUEtiapine 25 MG TAB ONE (20:35)
[2024-03-26] MEDS ORDERED: FUROSEMIDE 40 MG TAB ONE (09:12)
[2024-03-26] MEDS ORDERED: SPIRONOLACTONE 25 MG TAB ONE (09:13)
[2024-03-26] MEDS ORDERED: HYDROcodone/APAP 5-325MG 1 EACH TAB ONE ×3 (09:14→20:43)
[2024-03-26] MEDS ORDERED: POTASSIUM CHLORIDE ER 20 MEQ TAB.ER PO ONE (09:14)
[2024-03-26] MEDS ORDERED: GABAPENTIN 100 MG CAP ONE ×2 (12:59→21:21)
[2024-03-26] MEDS ORDERED: IPRATROPIUM-ALBUTEROL 3 ML NEB IH PRN (16:28)
[2024-03-26] MEDS ORDERED: PANTOPRAZOLE 40 MG TABLET PO ONE (17:21)
[2024-03-26] MEDS ORDERED: IPRATROPIUM 0.5 MG/2.5 ML NEBU INHALATION ONE (19:39)
[2024-03-26] MEDS ORDERED: Potassium Replacement Protocol 1 EACH MISC MISCELLANE PRN (20:16)
[2024-03-26] MEDS ORDERED: QUEtiapine 25 MG TAB ONE (21:21)
--- NOTE | 2024-03-27 01:10 | PN ---
PROGRESS NOTE DATE OF SERVICE: 03/25/2024 SUBJECTIVE: Ms. Bagley remained stable. The patient had her SALVADOR drain removed yesterday. She has had ascites draining from the SALVADOR wound site. OBJECTIVE: VITAL SIGNS: Appear stable. ABDOMEN: Soft. Ascites leaking through SALVADOR site. The patient will need to have Lasix added to control her ascites. The patient will be discharged home once her fluid management is better controlled. MMODL / IJN: [id number] /
[2024-03-27 04:47] LABS: ALT 21 U/L (4-34); AST 45 U/L (14-36); African American GFR (CKD) 89 (>60 ml/min/1.73 sqM); Albumin 2.1 g/dL (3.5-5.0); Albumin/Globulin Ratio 0.9; Alkaline Phosphatase 89 U/L (38-126); Amylase <30 U/L (30-110); Anion Gap 5 mmol/L; Bilirubin,Unconjugated 1.1 mg/dL (0.0-1.1); Blood Urea Nitrogen 15 mg/dL (7-17); Calcium 7.7 mg/dL (8.4-10.2); Carbon Dioxide 15 mmol/L (22-30); Chloride 101 mmol/L (98-107); Globulin 2.4 g/dL; Glucose 112 mg/dL (74-99); Lipase 82 U/L (23-300); Non-African American GFR(CKD) 78 (>60 ml/min/1.73 sqM); Potassium 4.4 mmol/L (3.5-5.1); Sodium 121 mmol/L (137-145); Total Bilirubin 1.7 mg/dL (0.2-1.3); Total Protein 4.5 g/dL (6.3-8.2)
[2024-03-27] MEDS: POTASSIUM CHLORIDE ER 20 MEQ TAB.ER PO SCH (05:25)
[2024-03-27] MEDS: GABAPENTIN 100 MG CAP PO SCH (05:25)
[2024-03-27] MEDS: SPIRONOLACTONE 25 MG TAB PO SCH (05:25)
[2024-03-27] MEDS: IPRATROPIUM 0.5 MG/2.5 ML NEBU INHALATION SCH (05:25)
[2024-03-27] MEDS: SYMBICORT 80-4.5 MCG INHALER INHALATION SCH (05:26)
[2024-03-27] MEDS: QUEtiapine 100 MG TAB PO SCH (05:26)
[2024-03-27] MEDS: PANTOPRAZOLE 40 MG TABLET PO SCH (05:26)
[2024-03-27] MEDS: HYDROcodone/APAP 5-325MG 1 EACH TAB PO PRN (06:31)
[2024-03-27 06:41] LABS: Anisocytosis Slight; Basophils # (A) 0.1 k/uL (0-0.2); Basophils % (A) 0 %; Eosinophils # (A) 0.4 k/uL (0-0.7); Eosinophils % (A) 3 %; HCT 33.7 % (34.0-46.0); HGB 10.4 gm/dL (11.4-16.0); Hypochromasia Marked; Lymphocytes # (A) 1.9 k/uL (1.0-4.8); Lymphocytes % (A) 15 %; MCH 33.5 pg (25.0-35.0); MCHC 30.7 g/dL (31.0-37.0); Macrocytosis Marked; Mean Platelet Volume 11.5; Monocytes # (A) 0.6 k/uL (0-1.0); Monocytes % (A) 4 %; Neutrophils # (A) 9.7 k/uL (1.3-7.7); Neutrophils % (A) 75 %; Poikilocytosis Slight; RBC 3.09 m/uL (3.80-5.40); RDW 17.9 % (11.5-15.5)
[2024-03-27 06:42] LABS: Platelet Count 125 k/uL (150-450)
[2024-03-27] MEDS: IPRATROPIUM-ALBUTEROL 3 ML NEB IH PRN (07:51)
[2024-03-27] MEDS: ALBUTEROL NEBULIZED 2.5 MG/3 ML INHALATION SCH (07:52)
--- NOTE | 2024-03-27 08:20 | P.PN ---
Subjective Progress Note Date: 03/27/24 Patient still has ascites draining from her SALVADOR drain site. She had approximately 650 cc of ascitic fluid drained yesterday. On exam vital signs appear stable. Abdomen is soft. Patient's ascites being medically managed. Her Lasix was increased. Apparently scheduled for an ultrasound of the abdomen to evaluate her ascites volume. Once her drainage has stopped she will be discharged home. Objective - Vital Signs Vital signs: Vital Signs Temp 98.1 F 03/27/24 07:20 Pulse 103 H 03/27/24 07:59 Resp 17 03/27/24 07:20 BP 103/65 03/27/24 07:20 Pulse Ox 97 03/27/24 07:20 FiO2 Intake & Output 03/26/24 03/27/24 03/27/24 18:59 06:59 18:59 Output Total 1000 Balance -1000 Weight 106.141 kg Output: Drainage 1000 Right 1000 - Labs CBC & Chem 7: 03/27/24 02:55 03/27/24 03:00 Labs: Abnormal Lab Results - Last 24 Hours (Table) 03/27/24 03/27/24 03/27/24 Range/Units 02:55 03:00 06:03 WBC 13.0 H (3.8-10.6) k/uL RBC 3.09 L (3.80-5.40) m/uL Hgb 10.4 L (11.4-16.0) gm/dL Hct 33.7 L (34.0-46.0) % MCV 109.0 H (80.0-100.0) fL MCHC 30.7 L (31.0-37.0) g/dL RDW 17.9 H (11.5-15.5) % Plt Count 125 L D (150-450) k/uL Neutrophils # 9.7 H (1.3-7.7) k/uL Macrocytosis Marked A Sodium 121 L (137-145) mmol/L Carbon Dioxide 15 L (22-30) mmol/L Glucose 112 H (74-99) mg/dL Calcium 7.7 L (8.4-10.2) mg/dL Total Bilirubin 1.7 H (0.2-1.3) mg/dL AST 45 H (14-36) U/L Ammonia 37 H (<30) umol/L Total Protein 4.5 L (6.3-8.2) g/dL Albumin 2.1 L (3.5-5.0) g/dL Amylase <30 L (30-110) U/L
--- NOTE | 2024-03-27 08:50 | US ---
EXAMINATION TYPE: US abdomen complete DATE OF EXAM: 03/27/2024 COMPARISON: US CT 02/18/2024 CLINICAL INDICATION: Female, 44 years old with history of cirrhosis; Known Cirrhosis, ABD distention. recent GB removal TECHNIQUE: Multiple sonographic images of the abdomen are obtained. FINDINGS: EXAM MEASUREMENTS: Liver Length: 18.1 cm CBD: 0.6 cm Spleen: 15.1 cm Right Kidney: 10.4 x 4.7 x 6.0 cm Left Kidney: 11.2 x 4.6 x 5.4 cm SOLE MOLDING MACHINE OPERATOR NOTES: Limited visualization due to recent GB surgery- bandages all over abdomen Pancreas: Obscured by bowel gas Liver: Enlarged, heterogeneous with coarse echotexture, difficult to penetrate Gallbladder: Surgically absent Evidence for sonographic Cordova's sign: No CBD: wnl Spleen: Enlarged, Isoechoic area near hilum= 2.4 x 2.3 x 2.0 cm splenule Right Kidney: Limited views show no hydro Left Kidney: Limited views show no hydro Upper IVC: wnl Abd Aorta: Obscured by overlying bowel gas, and bandages The liver is heterogenous with increased coarsened echotexture. The intrahepatic portion of the IVC and proximal abdominal aorta are within normal limits. Common bile duct is unremarkable. The visual ized portions of the pancreas are homogenous. Kidneys are symmetric and free of hydronephrosis. No renal lesions are seen. IMPRESSION: 1. Surgically absent gallbladder No evidence for organizing fluid collection the gallbladder fossa. 2. Hepatomegaly with no nodular contour. 3. splenomegaly in the setting of cirrhosis suggestive of portal hypertension.
[2024-03-27] MEDS: SPIRONOLACTONE 25 MG TAB ONE ×4 (08:56→09:04)
[2024-03-27] MEDS: HYDROmorphone 1 MG/ML 1 ML SYRINGE ONE ×7 (08:56→09:00)
[2024-03-27] MEDS: GABAPENTIN 100 MG CAP ONE ×7 (08:56→09:00)
[2024-03-27] MEDS: PANTOPRAZOLE 40 MG TABLET PO ONE ×3 (08:57→09:00)
[2024-03-27] MEDS: QUEtiapine 25 MG TAB ONE ×4 (08:57→09:00)
[2024-03-27] MEDS: POTASSIUM CHLORIDE ER 20 MEQ TAB.ER PO ONE ×4 (08:57→09:04)
[2024-03-27] MEDS: HYDROcodone/APAP 5-325MG 1 EACH TAB ONE ×7 (08:58→09:06)
[2024-03-27] MEDS ORDERED: FUROSEMIDE 40 MG TAB PO SCH (09:00)
[2024-03-27] MEDS: RIFAXIMIN 200 MG TAB PO SCH (09:12)
[2024-03-27] MEDS: FUROSEMIDE 10 MG/ML 4 ML VIAL IV SCH (09:13)
[2024-03-27] MEDS: ALBUMIN HUMAN 25% 50 ML in EMPTY BAG 1 BAG IVPB SCH (15:56)
[2024-03-27 20:53] LABS: Glucose,Whole Blood 205 mg/dL (70-110)
[2024-03-27] MEDS ORDERED: NALOXONE 0.4 MG/ML 1 ML VIAL IV PRN (20:59)
[2024-03-27] MEDS: SODIUM CHLORIDE 3%(HYPERTONIC) 500 ML IV ONE (22:27)
[2024-03-27] MEDS: HYDROmorphone 1 MG/ML 1 ML SYRINGE IVP PRN (22:42)
[2024-03-27 22:47] LABS: African American GFR (CKD) >90 (>60 ml/min/1.73 sqM); Anion Gap 7 mmol/L; Blood Urea Nitrogen 15 mg/dL (7-17); Calcium 7.9 mg/dL (8.4-10.2); Carbon Dioxide 16 mmol/L (22-30); Chloride 96 mmol/L (98-107); Glucose 103 mg/dL (74-99); Magnesium 1.5 mg/dL (1.6-2.3); Non-African American GFR(CKD) >90 (>60 ml/min/1.73 sqM); Potassium 4.2 mmol/L (3.5-5.1)
[2024-03-27 22:55] LABS: Sodium 119 mmol/L (137-145)
[2024-03-27 23:01] LABS: Anisocytosis Slight; Basophils % (A) 0 %; Eosinophils # (A) 0.6 k/uL (0-0.7); Eosinophils % (A) 4 %; Hypochromasia Slight; Lymphocytes # (A) 2.3 k/uL (1.0-4.8); Lymphocytes % (A) 13 %; MCH 32.8 pg (25.0-35.0); MCHC 32.3 g/dL (31.0-37.0); Macrocytosis Moderate; Mean Platelet Volume 10.1; Monocytes # (A) 0.8 k/uL (0-1.0); Monocytes % (A) 5 %; Neutrophils % (A) 75 %; Platelet Count 133 k/uL (150-450); Poikilocytosis Moderate; RBC 3.05 m/uL (3.80-5.40); RDW 18.2 % (11.5-15.5); WBC 17.2 k/uL (3.8-10.6)
[2024-03-27 23:35] LABS: MCV 101.6 fL (80.0-100.0)
--- NOTE | 2024-03-28 01:53 | P.CNPUL ---
History of Present Illness Consult date: 03/28/24 Requesting physician: Anselmo Simpson Reason for consult: other (ICU management; hyponatremia) Chief complaint: Status post elective laparoscopic cholecystectomy History of present illness: Patient is a 44-year-old white female with past medical story significant for COPD, alcoholism, liver cirrhosis, ascites with previous paracentesis, esophageal varices, gastric ulcer, and previous GI bleed. Last drink was reportedly 1 month ago. Of note, patient did have a recent esophagogastroduodenoscopy on 02/19/2024 she was found to have a 5 mm antral ulcer with no active bleeding, small distal esophageal varices and mild to moderate gastritis. She did have a HIDA scan on 02/23/2024. she was brought in for a laparoscopic cholecystectomy, which was reportedly done on March,. No perioperative complications reported. Postoperatively, the patient was recovering on the medical surgical unit. She is tolerating her diet. She was noted to have copious serous output from her SALVADOR drain. In fact, a total of 2.4 L has drained so far in the last 24 hours. She was also being diuresed with L asix. Subsequently, became hyponatremic, sodium was as low as 116. Nephrology recommended starting 3% hypertonic saline, which required transfer the patient to the intensive care unit for monitoring. Patient is currently sitting up in bed, on room air, in no acute distress. No signs of alcohol withdrawal. Lasix has been stopped. She continues to have significant amount of serous drainage from a prior drain site, however, her SALVADOR drain has been removed. She has abdominal ascites. No cognitive symptoms. No confusion/AMS, headache, seizures. Hypertonic saline is currently infusing at 25 mL/h. Current sodium is 119, with a goal of 120 mmol/L. Nephrology is managing. Remaining labs include a CBC with a WBC count 17.2, hemoglobin 10, hematocrit 31, platelets 133. BMP: Sodium 119, potassium 4.2, chloride 96, serum bicarb 16, BUN 15, creatinine 0.79, glucose 103. Most recent LFTs unremarkable. Total bili 1.7. Ammonia 37. Has remained afebrile. Heart rhythm appears sinus tachycardia on bedside monitor with a heart rate of 112 beats per minutes, blood pressure stable at 103/53 mmHg. Hemodynamics are stable. Review of Systems Normal review of systems REVIEW OF SYSTEMS: CONSTITUTIONAL: Admits weight gain and generalized swelling. EYES: Denies change in vision. EARS, NOSE, MOUTH, THROAT: Denies headaches, denies sore throat. CARDIOVASCULAR: Denies chest pain, palpitations or syncopal episodes. RESPIRATORY: Denies shortness of breath, cough, congestion or hemoptysis. GASTROINTESTINAL: Denies change in appetite, abdominal pain, nausea and vom iting, or diarrhea GENITOURINARY: Denies hematuria, denies infections. MUSKULOSKELETAL: Denies pain, denies swelling. INTEGUMENTARY: Denies rash, denies eczema. NEUROLOGICAL: Denies recent memory loss, no recent seizure activity. PSYCHIATRIC: Denies anxiety, denies depression. HEMATOLOGIC/LYMPHATIC: Denies anemia, denies enlarged lymph node Past Medical History Past Medical History: GERD/Reflux, Liver Disease Additional Past Medical History / Comment(s): retains fluid,anemia,cirrohis of liver non alcoholic, occ bloody stool, ulcer, bipolar History of Any Multi-Drug Resistant Organisms: None Reported Past Surgical History: EPS Additional Past Surgical History / Comment(s): has had 4 scopes, paracentesis unable to get any fluid out at the time., paracentesis Past Anesthesia/Blood Transfusion Reactions: No Reported Reaction Additional Past Anesthesia/Blood Transfusion Reaction / Comment(s): 3 units of blood transfused in around february 03. Past Psychological History: Anxiety, Bipolar Smoking Status: Current every day smoker Past Alcohol Use History: None Reported Additional Past Alcohol Use History / Comment(s): 1 pk/every 2 days/ 20yrs, did not drink for 10months and then started drinking again states "I stopped again a week ago." Past Drug Use History: None Reported Medications and Allergies Home Medications Medication Instructions Recorded Confirmed Type Cariprazine HCl [Vraylar] 3 mg PO HS 03/20/23 02/18/24 History Gabapentin 300 mg PO TID 03/20/23 02/18/24 History Pantoprazole [Protonix] 40 mg PO DAILY 03/20/23 02/18/24 History QUEtiapine [SEROquel] 100 tab PO HS 03/20/23 02/18/24 History Spironolactone 100 mg PO DAILY 03/20/23 02/18/24 History Budesonide-Formot 160-4.5 Mcg 2 puff INHALATION RT-BID 30 Days 02/24/24 Rx [Symbicort 160-4.5 Mcg Inhaler] #1 each Allergies Allergy/AdvReac Type Severity Reaction Status Date / Time Penicillins Allergy Anaphylaxis Verified 02/18/24 21:11 Physical Exam Vitals: Vital Signs Temp Pulse Pulse Resp BP BP Pulse Ox 03/28/24 01:00 112 H 7 L 103/53 95 03/28/24 00:50 112 H 11 L 103/53 94 L 03/28/24 00:40 114 H 21 103/53 94 L 03/28/24 00:30 115 H 18 103/53 94 L 03/28/24 00:20 116 H 16 103/53 93 L 03/28/24 00:10 116 H 14 86/51 93 L 03/28/24 00:00 98.6 F 116 H 18 113/60 92 L 03/27/24 23:50 117 H 17 113/60 92 L 03/27/24 23:40 117 H 18 113/60 93 L 03/27/24 23:30 115 H 13 113/60 93 L 03/27/24 23:20 115 H 11 L 113/60 98 03/27/24 23:10 115 H 11 L 113/60 96 03/27/24 23:00 116 H 9 L 105/40 97 03/27/24 22:50 110 H 12 105/40 97 03/27/24 22:40 110 H 14 105/40 97 03/27/24 22:30 110 H 11 L 105/40 97 03/27/24 22:20 112 H 16 105/40 96 03/27/24 22:10 112 H 24 105/40 98 03/27/24 22:00 106 H 12 107/56 99 03/27/24 21:50 106 H 17 107/56 95 03/27/24 21:40 107 H 19 107/56 96 03/27/24 21:30 109 H 13 107/56 98 03/27/24 21:20 108 H 15 107/56 96 03/27/24 21:10 112 H 33 H 107/56 96 03/27/24 21:00 112 H 23 100/73 98 03/27/24 20:50 99 03/27/24 16:09 112 H 03/27/24 15:57 116 H 03/27/24 15:06 98.0 F 114 H 17 103/66 97 03/27/24 13:34 97.9 F 118 H 17 93/57 97 03/27/24 11:55 103 H 03/27/24 11:43 106 H 03/27/24 07:59 103 H 03/27/24 07:52 105 H 03/27/24 07:20 98.1 F 107 H 17 103/65 97 03/27/24 02:33 97.9 F 103 H 17 99/64 97 Intake and Output 03/27/24 03/27/24 03/28/24 14:59 22:59 06:59 Output Total 1500 250 Balance -1500 -250 Output: Drainage 1200 250 Right 1200 250 Urine 300 0 Other: Voiding Method Toilet Toilet # Voids 3 GENERAL EXAM: Alert, 44-year-old white female, comfortable in no apparent distress. HEAD: Normocephalic and atraumatic EYES: Normal reaction of pupils, equal size. NOSE: Clear with pink turbinates. THROAT: No erythema or exudates. NECK: No masses, no JVD. CHEST: No chest wall deformity. LUNGS: Equal air entry with no crackles, wheeze, rhonchi or dullness. No conversational dyspnea or accessory muscle use.. CVS: S1 and S2 normal with grade 2 systolic murmur, regular rhythm. No other extra heart sounds ABDOMEN: Abdominal distention with ascites and large amount of serous output from right-sided laparoscopic incision. SALVADOR has since been removed. Remaining laparoscopic sites are clean, dry, and approximated. No purulent drainage. No abdominal guarding or grimacing. SPINE: No scoliosis or deformity SKIN: Spider angiomas located on face and chest CENTRAL NERVOUS SYSTEM: No focal deficits, tone is normal in all 4 extremities. EXTREMITIES: There is no peripheral edema, clubbing, or cyanosis. Peripheral pulses are intact. Results - Laboratory Findings CBC and BMP: 03/27/24 21:44 03/27/24 21:44 Abnormal lab findings: Abnormal Labs 03/27/24 03/27/24 03/27/24 02:55 03:00 06:03 WBC 13.0 H RBC 3.09 L Hgb 10.4 L Hct 33.7 L MCV 109.0 H MCHC 30.7 L RDW 17.9 H Plt Count 125 L D Neutrophils # 9.7 H Macrocytosis Marked A Sodium 121 L Chloride Carbon Dioxide 15 L Glucose 112 H POC Glucose (mg/dL) Calcium 7.7 L Magnesium Total Bilirubin 1.7 H AST 45 H Ammonia 37 H Total Protein 4.5 L Albumin 2.1 L Amylase <30 L 03/27/24 03/27/24 03/27/24 18:48 20:51 21:44 WBC 17.2 H RBC 3.05 L Hgb 10.0 L Hct 31.0 L MCV 101.6 H D MCHC RDW 18.2 H Plt Count 133 L Neutrophils # 13.0 H Macrocytosis Sodium 116 L* Chloride Carbon Dioxide Glucose POC Glucose (mg/dL) 205 H Calcium Magnesium Total Bilirubin AST Ammonia Total Protein Albumin Amylase 03/27/24 03/27/24 21:44 21:44 WBC RBC Hgb Hct MCV MCHC RDW Plt Count Neutrophils # Macrocytosis Sodium 119 L* 119 L* Chloride 96 L Carbon Dioxide 16 L Glucose 103 H POC Glucose (mg/dL) Calcium 7.9 L Magnesium 1.5 L Total Bilirubin AST Ammonia Total Protein Albumin Amylase Assessment and Plan Assessment: Hyponatremia, currently on a 3% hypertonic saline infusion at 25 mL/h. Nephrolo gy is managing. Sodium goal 120. Status postoperative day #7 following a laparoscopic cholecystectomy Non-anion gap metabolic acidosis Sinus tachycardia Anemia, macrocytic Alcoholic liver disease and abdominal ascites History of GI bleed status post esophagogastroduodenoscopy on 02/19/2024 History of esophageal varices History of mild to moderate gastritis and 5 mm antral gastric ulcer History of alcoholism, last drink reportedly 1 month ago Chronic obstructive pulmonary disease, stable Chronic ongoing tobacco dependence History of bipolar disorder Plan: Patient is currently being monitored in the intensive care unit. Nephrology is managing patient's hyponatremia, currently on hypertonic saline infusion at 25 mL/h. Undergoing every 2 hours sodium rechecks. Sodium goal is reportedly 120 mmol/L. No cognitive symptoms Patient has remained afebrile, and abdomen appears nonacute. General Surgery continues to follow. She is tolerating oral intake. Continue PPI Hemodynamics are stable. We will continue to follow while patient is in intensive care unit I have personally seen and examined the patient, performed the documentation and the assessment and plan as written. Number of minutes spent on the visit:20 Time with Patient: Greater than 30
[2024-03-28] MEDS ORDERED: Magnesium Replacement Protocol 1 EACH MISC MISCELLANE PRN (08:15)
[2024-03-28] MEDS: IPRATROPIUM-ALBUTEROL 3 ML NEB INHALATION SCH (08:28)
[2024-03-28 09:07] LABS: Basophils # (A) 0.07 X 10*3/uL (0.00-0.10); Basophils % (A) 0.5 %; Eosinophils # (A) 0.51 X 10*3/uL (0.04-0.35); Eosinophils % (A) 3.4 %; HCT 30.4 % (37.2-46.3); HGB 9.6 g/dL (12.0-15.0); Lymphocytes # (A) 2.54 X 10*3/uL (0.90-5.00); Lymphocytes % (A) 17.1 %; MCH 32.3 pg (27.0-32.0); MCHC 31.6 g/dL (32.0-37.0); MCV 102.4 FL (80.0-97.0); Mean Platelet Volume 12.3 FL (9.5-12.2); Monocytes # (A) 1.18 X 10*3/uL (0.20-1.00); Monocytes % (A) 7.9 %; NRBC Per 100 WBC 0 X 10*3/uL (0.00-0.01); Neutrophils # (A) 10.26 X 10*3/uL (1.80-7.70); Neutrophils % (A) 69.1 %; Platelet Count 134 X 10*3/uL (140-440); RBC 2.97 X 10*6/uL (4.10-5.20); RDW 17.2 % (11.5-14.5); WBC 14.86 X 10*3/uL (4.50-10.00)
[2024-03-28 09:23] LABS: BUN/Creat Ratio 19.12 Ratio (12.00-20.00); Blood Urea Nitrogen 15.3 mg/dL (9.0-27.0); Calcium 7.6 mg/dL (8.7-10.3); Carbon Dioxide 16.7 mmol/L (21.6-31.8); Chloride 94 mmol/L (96-109); Glucose 113 mg/dL (70-110); Potassium 4.7 mmol/L (3.5-5.5); Sodium 120 mmol/L (135-145)
--- NOTE | 2024-03-28 10:03 | US ---
EXAMINATION TYPE: US abdomen limited DATE OF EXAM: 03/28/2024 COMPARISON: NONE CLINICAL INDICATION: Female, 44 years old with history of ascites; Distended abd, cirrhosis, assess f or ascites Technique: Peace scale imaging of all 4 quadrants for ascites. Findings: All four quadrants scanned, no fluid seen IMPRESSION: No free fluid identified
--- NOTE | 2024-03-28 10:15 | P.NPCON ---
History of Present Illness - Reason for Consult hyponatremia - History of Present Illness Reason for consultation: Hyponatremia History of present illness: Patient is a 44-year-old female seen in renal consultation for hyponatremia. Patient sodium level on admission was in the normal range. Patient did undergo cholecystectomy on March 21, 2024. Patient has history of alcohol abuse with liver cirrhosis. Patient currently has a urinary bag attached to her drain due to leakage of ascitic fluid. Patient was receiving IV Lasix as well as Aldactone. Sodium level was 121 at 3 AM dated March 27, 2024 and was down to 116 March 27 6:48 PM. She was subsequently transferred to the ICU and started on 3% sodium level this morning was up to 120. She has been making urine. She is awake and alert. Patient says she was drinking 1/5 of alcohol every 2 days for the last couple of years. Oral intake has been fair. Denies vomiting or diarrhea. Denies personal history of malignancy. No history of diabetes or coronary artery disease. Denies chest pain or shortness of breath. Diuretics are currently held. She also received a dose of albumin yesterday and is maintained on fluid restriction as well. Renal function is at baseline. Vital signs are stable. General: No acute distress. HEENT: Head exam is unremarkable. LUNGS: No audible rhonchi or wheezes. HEART: Rate and Rhythm are regular. ABDOMEN: Soft, urinary bag with ascitic fluid noted. EXTREMITITES: No edema. Past Medical History Past Medical History: GERD/Reflux, Liver Disease Additional Past Medical History / Comment(s): retains fluid,anemia,cirrohis of liver non alcoholic, occ bloody stool, ulcer, bipolar History of Any Multi-Drug Resistant Organisms: None Reported Past Surgical History: EPS Additional Past Surgical History / Comment(s): has had 4 scopes, paracentesis unable to get any fluid out at the time., paracentesis Past Anesthesia/Blood Transfusion Reactions: No Reported Reaction Additional Past Anesthesia/Blood Transfusion Reaction / Comment(s): 3 units of blood transfused in around february 03. Past Psychological History: Anxiety, Bipolar Smoking Status: Current every day smoker Past Alcohol Use History: None Reported Additional Past Alcohol Use History / Comment(s): 1 pk/every 2 days/ 20yrs, did not drink for 10months and then started drinking again states "I stopped again a week ago." Past Drug Use History: None Reported Medications and Allergies Home Medications Medication Instructions Recorded Confirmed Type Cariprazine HCl [Vraylar] 3 mg PO HS 03/20/23 02/18/24 History Gabapentin 300 mg PO TID 03/20/23 02/18/24 History Pantoprazole [Protonix] 40 mg PO DAILY 03/20/23 02/18/24 History QUEtiapine [SEROquel] 100 tab PO HS 03/20/23 02/18/24 History Spironolactone 100 mg PO DAILY 03/20/23 02/18/24 History Budesonide-Formot 160-4.5 Mcg 2 puff INHALATION RT-BID 30 Days 02/24/24 Rx [Symbicort 160-4.5 Mcg Inhaler] #1 each Allergies Allergy/AdvReac Type Severity Reaction Status Date / Time Penicillins Allergy Anaphylaxis Verified 02/18/24 21:11 Physical Exam Vitals: Vital Signs Temp Pulse Pulse Resp BP BP Pulse Ox 03/28/24 08:29 110 H 18 03/28/24 08:00 98 F 113 H 22 106/63 97 03/28/24 07:00 110 H 17 98/54 96 03/28/24 06:50 112 H 9 L 98/54 96 03/28/24 06:40 109 H 18 98/54 94 L 03/28/24 06:30 113 H 16 98/54 96 03/28/24 06:20 112 H 45 H 98/54 98 03/28/24 06:10 107 H 14 98/54 95 03/28/24 06:00 107 H 15 101/52 93 L 03/28/24 05:50 110 H 20 101/52 94 L 03/28/24 05:40 111 H 16 101/52 94 L 03/28/24 05:30 106 H 19 101/52 96 03/28/24 05:20 108 H 15 101/52 94 L 03/28/24 05:10 106 H 14 101/52 95 03/28/24 05:00 109 H 21 101/52 94 L 03/28/24 04:50 106 H 15 90/55 95 03/28/24 04:40 105 H 27 H 90/55 94 L 03/28/24 04:30 105 H 12 90/55 95 03/28/24 04:20 103 H 17 90/55 95 03/28/24 04:10 106 H 14 90/55 94 L 03/28/24 04:00 98.6 F 104 H 20 93/62 95 03/28/24 03:50 108 H 16 93/62 94 L 03/28/24 03:40 114 H 6 L 93/62 97 03/28/24 03:30 111 H 18 99/59 95 03/28/24 03:20 105 H 12 99/59 94 L 03/28/24 03:10 111 H 13 99/59 96 03/28/24 03:00 106 H 15 95/55 94 L 03/28/24 02:50 107 H 14 95/55 96 03/28/24 02:40 111 H 9 L 95/47 96 03/28/24 02:30 107 H 13 95/47 94 L 03/28/24 02:20 109 H 27 H 90/52 95 03/28/24 02:10 110 H 15 90/52 95 03/28/24 02:00 111 H 17 104/59 95 03/28/24 01:50 110 H 16 104/59 95 03/28/24 01:40 111 H 12 104/59 94 L 03/28/24 01:30 112 H 17 104/59 95 03/28/24 01:20 110 H 7 L 104/59 94 L 03/28/24 01:10 113 H 15 104/59 95 03/28/24 01:00 112 H 7 L 103/53 95 03/28/24 00:50 112 H 11 L 103/53 94 L 03/28/24 00:40 114 H 21 103/53 94 L 03/28/24 00:30 115 H 18 103/53 94 L 03/28/24 00:20 116 H 16 103/53 93 L 03/28/24 00:10 116 H 14 86/51 93 L 03/28/24 00:00 98.6 F 116 H 18 113/60 92 L 03/27/24 23:50 117 H 17 113/60 92 L 03/27/24 23:40 117 H 18 113/60 93 L 03/27/24 23:30 115 H 13 113/60 93 L 03/27/24 23:20 115 H 11 L 113/60 98 03/27/24 23:10 115 H 11 L 113/60 96 03/27/24 23:00 116 H 9 L 105/40 97 03/27/24 22:50 110 H 12 105/40 97 03/27/24 22:40 110 H 14 105/40 97 03/27/24 22:30 110 H 11 L 105/40 97 03/27/24 22:20 112 H 16 105/40 96 03/27/24 22:10 112 H 24 105/40 98 03/27/24 22:00 106 H 12 107/56 99 03/27/24 21:50 106 H 17 107/56 95 03/27/24 21:40 107 H 19 107/56 96 03/27/24 21:30 109 H 13 107/56 98 03/27/24 21:20 108 H 15 107/56 96 03/27/24 21:10 112 H 33 H 107/56 96 03/27/24 21:00 112 H 23 100/73 98 03/27/24 20:50 99 03/27/24 16:09 112 H 03/27/24 15:57 116 H 03/27/24 15:06 98.0 F 114 H 17 103/66 97 03/27/24 13:34 97.9 F 118 H 17 93/57 97 03/27/24 11:55 103 H 03/27/24 11:43 106 H Intake and Output 03/27/24 03/28/24 03/28/24 22:59 06:59 14:59 Output Total 1500 700 255 Balance -1500 -700 -255 Output: Drainage 1200 400 100 Right 1200 400 100 Urine 300 300 5 Other 150 Other: Voiding Method Toilet # Voids 3 Weight 114.4 kg Results - Lab Results Most recent lab results Calcium 7.6 mg/dL (8.7-10.3) L 03/28/24 03:27 Magnesium 1.5 mg/dL (1.6-2.3) L 03/27/24 21:44 03/28/24 03:27 03/28/24 05:30 Assessment and Plan Plan: Assessment: 1. Hyponatremia. Appears hypovolemic with blood pressure on the lower side as well as tachycardia. High amounts of output of ascitic fluid. Status post Aldactone and IV Lasix with drop in urine sodium level to 116. Improved to 120 this morning. 2. History of alcohol abuse. 3. History of liver cirrhosis. 4. Hypomagnesemia from diuresis and GI losses. Being replaced. 5. Status post laparoscopic cholecystectomy March 21, 2024. 6. Nongap metabolic acidosis from GI losses. Plan: Currently 3% is stopped. Repeat sodium level at 10 AM. With goal sodium near 123 this evening and 126-127 tomorrow morning. Check serum and urine osmolality and urine sodium level. Check TSH. Check cortisol level. Add oral bicarb. Encouraged oral intake. Maintain fluid restriction. Thank you for the consultation. I will continue to follow the patient with you during her hospital stay.
[2024-03-28 11:03] LABS: Sodium 118 mmol/L (137-145)
[2024-03-28] MEDS: SODIUM CHLORIDE 3%(HYPERTONIC) 500 ML IV ONE ×2 (11:05→18:05)
[2024-03-28] MEDS: MAGNESIUM SULFATE-D5W PMX 1 GM in DEXTROSE/WATER 1 100ML.BAG IVPB SCH (11:16)
[2024-03-28] MEDS: SODIUM BICARBONATE TAB 650 MG TAB PO SCH (11:16)
[2024-03-28] MEDS: HYDROcodone/APAP 5-325MG 1 EACH TAB ONE ×2 (11:34→11:36)
[2024-03-28] MEDS: FUROSEMIDE 10 MG/ML 4 ML VIAL ONE (11:35)
--- NOTE | 2024-03-28 11:39 | P.PN ---
Subjective Progress Note Date: 03/28/24 CHIEF COMPLAINT: Cholecystitis HISTORY OF PRESENT ILLNESS: Patient is status post laparoscopic cholecystectomy on March 21, 2024.. She continues to have ascites draining from her SALVADOR drain site. Patient has had 500 mL drained this AM. Pain is controlled. She is in the ICU due to hyponatremia. Followed by nephrology. Sodium 120. Magnesium 1.5. WBC down from 17-14.86 Hgb 9.6 . Abdominal ultrasound from yesterday reported surgically absent gallbladder. No evidence for organizing fluid collection. Hepatomegaly. Splenomegaly in the setting of cirrhosis suggestive of portal hypertension. Currently off of diuretics. Afebrile. Tachycardic. BP 109/61 Patient seen and examined with Dr. Corrigan PHYSICAL EXAM: VITAL SIGNS: Reviewed. GENERAL: Well-developed in no acute distress. ABDOMEN: Soft. Bruising on right side of the abdomen. Colostomy bag over SALVADOR drain site with ascites fluid in bag NEUROLOGIC: Alert and oriented. Cranial nerves II through XII grossly intact. ASSESSMENT: 1. Cholecystitis 2. Liver cirrhosis 3. Hyponatremia 4. Hypomagnesemia PLAN: -Hyponatremia management per nephrology -Abdominal ultrasound for evaluation of ascites ordered -Magnesium being replaced -Continue Regular, low fat diet Physician Director Of Marketing And Promotions note has been reviewed by physician. Signing provider agrees with the documented findings, assessment, and plan of care. Objective - Vital Signs Vital signs: Vital Signs Temp 98 F 03/28/24 08:00 Pulse 110 H 03/28/24 08:29 Resp 18 03/28/24 08:29 BP 106/63 03/28/24 08:00 Pulse Ox 97 03/28/24 08:00 FiO2 Intake & Output 03/27/24 03/28/24 03/28/24 18:59 06:59 18:59 Output Total 1500 700 255 Balance -1500 -700 -255 Weight 114.4 kg Output: Drainage 1200 400 100 Right 1200 400 100 Urine 300 300 5 Other 150 Other: Voiding Method Toilet Toilet # Voids 3 - Labs CBC & Chem 7: 03/28/24 03:27 03/28/24 10:12 Labs: Abnormal Lab Results - Last 24 Hours (Table) 03/27/24 03/27/24 03/27/24 Range/Units 18:48 20:51 21:44 WBC 17.2 H (3.8-10.6) k/uL RBC 3.05 L (3.80-5.40) m/uL Hgb 10.0 L (11.4-16.0) gm/dL Hct 31.0 L (34.0-46.0) % MCV 101.6 H D (80.0-100.0) fL MCH (27.0-32.0) pg MCHC (32.0-37.0) g/dL RDW 18.2 H (11.5-15.5) % Plt Count 133 L (150-450) k/uL MPV (9.5-12.2) FL Immature Gran # (0.00-0.04) X 10*3/uL Neutrophils # 13.0 H (1.3-7.7) k/uL Monocytes # (0.20-1.00) X 10*3/uL Eosinophils # (0.04-0.35) X 10*3/uL Sodium 116 L* (137-145) mmol/L Chloride (98-107) mmol/L Carbon Dioxide (22-30) mmol/L Glucose (74-99) mg/dL POC Glucose (mg/dL) 205 H (70-110) mg/dL Calcium (8.4-10.2) mg/dL Magnesium (1.6-2.3) mg/dL 03/27/24 03/27/24 03/28/24 Range/Units 21:44 21:44 01:21 WBC (3.8-10.6) k/uL RBC (3.80-5.40) m/uL Hgb (11.4-16.0) gm/dL Hct (34.0-46.0) % MCV (80.0-100.0) fL MCH (27.0-32.0) pg MCHC (32.0-37.0) g/dL RDW (11.5-15.5) % Plt Count (150-450) k/uL MPV (9.5-12.2) FL Immature Gran # (0.00-0.04) X 10*3/uL Neutrophils # (1.3-7.7) k/uL Monocytes # (0.20-1.00) X 10*3/uL Eosinophils # (0.04-0.35) X 10*3/uL Sodium 119 L* 119 L* 119 L* (137-145) mmol/L Chloride 96 L (98-107) mmol/L Carbon Dioxide 16 L (22-30) mmol/L Glucose 103 H (74-99) mg/dL POC Glucose (mg/dL) (70-110) mg/dL Calcium 7.9 L (8.4-10.2) mg/dL Magnesium 1.5 L (1.6-2.3) mg/dL 03/28/24 03/28/24 03/28/24 Range/Units 03:27 03:27 03:27 WBC 14.86 H (3.8-10.6) k/uL RBC 2.97 L (3.80-5.40) m/uL Hgb 9.6 L (11.4-16.0) gm/dL Hct 30.4 L (34.0-46.0) % MCV 102.4 H (80.0-100.0) fL MCH 32.3 H (27.0-32.0) pg MCHC 31.6 L (32.0-37.0) g/dL RDW 17.2 H (11.5-15.5) % Plt Count 134 L (150-450) k/uL MPV 12.3 H (9.5-12.2) FL Immature Gran # 0.30 H (0.00-0.04) X 10*3/uL Neutrophils # 10.26 H (1.3-7.7) k/uL Monocytes # 1.18 H (0.20-1.00) X 10*3/uL Eosinophils # 0.51 H (0.04-0.35) X 10*3/uL Sodium 120 L 119 L* (137-145) mmol/L Chloride 94 L (98-107) mmol/L Carbon Dioxide 16.7 L (22-30) mmol/L Glucose 113 H (74-99) mg/dL POC Glucose (mg/dL) (70-110) mg/dL Calcium 7.6 L (8.4-10.2) mg/dL Magnesium (1.6-2.3) mg/dL 03/28/24 Range/Units 05:30 WBC (3.8-10.6) k/uL RBC (3.80-5.40) m/uL Hgb (11.4-16.0) gm/dL Hct (34.0-46.0) % MCV (80.0-100.0) fL MCH (27.0-32.0) pg MCHC (32.0-37.0) g/dL RDW (11.5-15.5) % Plt Count (150-450) k/uL MPV (9.5-12.2) FL Immature Gran # (0.00-0.04) X 10*3/uL Neutrophils # (1.3-7.7) k/uL Monocytes # (0.20-1.00) X 10*3/uL Eosinophils # (0.04-0.35) X 10*3/uL Sodium 120 L (137-145) mmol/L Chloride (98-107) mmol/L Carbon Dioxide (22-30) mmol/L Glucose (74-99) mg/dL POC Glucose (mg/dL) (70-110) mg/dL Calcium (8.4-10.2) mg/dL Magnesium (1.6-2.3) mg/dL
[2024-03-29 06:19] LABS: Anisocytosis Slight; Basophils % (A) 0 %; Eosinophils # (A) 0.3 k/uL (0-0.7); Eosinophils % (A) 3 %; HCT 31.2 % (34.0-46.0); HGB 9.6 gm/dL (11.4-16.0); Hypochromasia Marked; Lymphocytes # (A) 1.5 k/uL (1.0-4.8); Lymphocytes % (A) 12 %; MCHC 30.9 g/dL (31.0-37.0); MCV 103.6 fL (80.0-100.0); Macrocytosis Moderate; Mean Platelet Volume 9.3; Monocytes # (A) 0.7 k/uL (0-1.0); Monocytes % (A) 6 %; Neutrophils # (A) 8.9 k/uL (1.3-7.7); Neutrophils % (A) 75 %; Platelet Count 118 k/uL (150-450); Poikilocytosis Slight; RBC 3.01 m/uL (3.80-5.40); RDW 17.9 % (11.5-15.5); WBC 11.9 k/uL (3.8-10.6)
[2024-03-29 06:51] LABS: African American GFR (CKD) >90 (>60 ml/min/1.73 sqM); Anion Gap 4 mmol/L; Blood Urea Nitrogen 18 mg/dL (7-17); Calcium 7.7 mg/dL (8.4-10.2); Carbon Dioxide 16 mmol/L (22-30); Chloride 102 mmol/L (98-107); Glucose 112 mg/dL (74-99); Non-African American GFR(CKD) >90 (>60 ml/min/1.73 sqM); Potassium 4.5 mmol/L (3.5-5.1); Sodium 122 mmol/L (137-145)
--- NOTE | 2024-03-29 10:12 | CONS ---
CONSULTATION This is a white female, who was admitted for abdominal leakage, status post umbilical hernia repair. She has ascites with third spacing of fluids in her abdomen. She had a SALVADOR tube drain with a lot of ascitic fluid come out of it. She had wound leaking with cirrhosis to the wound. She continues on current treatment. Blood pressure 108 to 130s/50s-60s, saturations 95% to 98%. She is on 3 L up to 2 L. We will continue her on oxygen. Continue home medications of: 1. Spironolactone. She takes 25 daily. 2. She is on breathing treatments b.i.d. with potassium and ipratropium q.i.d. 3. Quetiapine 25 mg daily. 4. Potassium 20 mEq daily. 5. Pantoprazole 40 daily. 6. Gabapentin 100 t.i.d. Home medications hopefully have been reordered on the patient. Currently on 2 L oxygen. Her Lasix and spironolactone increased. Possibly give her some albumin. Maybe do an ultrasound to check how much ascites there. May they do a paracentesis on Thursday. Continue current treatments. ASSESSMENT: 1. Liver cirrhosis. 2. Status post umbilical hernia repair. 3. Chronic obstructive pulmonary disease. 4. Status post laparoscopic cholecystectomy. PLAN: Blood pressure is fairly stable. We will add some albumin to the regimen. Decrease IV fluids for restrictions. Xifaxan for treatment for possible elevated ammonia. Prognosis is fair. MMODL / IJN: [id number] /
--- NOTE | 2024-03-29 10:30 | P.PN ---
Subjective Patient is seen in follow-up for hyponatremia. Most recent sodium level 123 from this morning at 9:39 AM. On 3% saline. Oral intake fair. No vomiting or diarrhea. Vital signs are stable. General: No acute distress. HEENT: Head exam is unremarkable. LUNGS: No audible rhonchi or wheezes. HEART: Rate and Rhythm are regular. ABDOMEN: Nontender. EXTREMITITES: No edema. Objective - Vital Signs Vital signs: Vital Signs Temp 98.8 F 03/29/24 08:00 Pulse 113 H 03/29/24 10:00 Resp 22 03/29/24 10:00 BP 110/50 03/29/24 10:00 Pulse Ox 97 03/29/24 10:00 FiO2 Intake & Output 03/28/24 03/29/24 03/29/24 18:59 06:59 18:59 Intake Total 600 1105 70 Output Total 1425 1300 400 Balance -825 -195 -330 Weight 114.4 kg 111.3 kg Intake: IV 70 Sodium Chloride 3%( 70 Hypertonic) 500 ml @ 35 mls/hr IV .[id number] ONE Rx #:[id number] Intake, IV Titration 385 Amount Sodium Chloride 3%( 385 Hypertonic) 500 ml @ 35 mls/hr IV .[id number] ONE Rx #:[id number] Oral 600 720 Output: Drainage 100 Right 100 Urine 340 550 Other 985 750 400 Other: Voiding Method Toilet Toilet - Labs CBC & Chem 7: 03/29/24 05:41 03/29/24 09:39 Labs: Abnormal Lab Results - Last 24 Hours (Table) 03/28/24 03/28/24 03/28/24 Range/Units 10:12 11:51 14:11 WBC (3.8-10.6) k/uL RBC (3.80-5.40) m/uL Hgb (11.4-16.0) gm/dL Hct (34.0-46.0) % MCV (80.0-100.0) fL MCHC (31.0-37.0) g/dL RDW (11.5-15.5) % Plt Count (150-450) k/uL Neutrophils # (1.3-7.7) k/uL Sodium 118 L* 119 L* 121 L (137-145) mmol/L Carbon Dioxide (22-30) mmol/L BUN (7-17) mg/dL Glucose (74-99) mg/dL Osmolality 256 L (275-295) mOsm/kg Calcium (8.4-10.2) mg/dL Ur Random Sodium (40-220) mmol/L 03/28/24 03/28/24 03/28/24 Range/Units 16:18 17:40 18:16 WBC (3.8-10.6) k/uL RBC (3.80-5.40) m/uL Hgb (11.4-16.0) gm/dL Hct (34.0-46.0) % MCV (80.0-100.0) fL MCHC (31.0-37.0) g/dL RDW (11.5-15.5) % Plt Count (150-450) k/uL Neutrophils # (1.3-7.7) k/uL Sodium 120 L 121 L (137-145) mmol/L Carbon Dioxide (22-30) mmol/L BUN (7-17) mg/dL Glucose (74-99) mg/dL Osmolality (275-295) mOsm/kg Calcium (8.4-10.2) mg/dL Ur Random Sodium <20 L (40-220) mmol/L 03/28/24 03/28/24 03/29/24 Range/Units 20:13 21:47 01:38 WBC (3.8-10.6) k/uL RBC (3.80-5.40) m/uL Hgb (11.4-16.0) gm/dL Hct (34.0-46.0) % MCV (80.0-100.0) fL MCHC (31.0-37.0) g/dL RDW (11.5-15.5) % Plt Count (150-450) k/uL Neutrophils # (1.3-7.7) k/uL Sodium 119 L* 120 L 122 L (137-145) mmol/L Carbon Dioxide (22-30) mmol/L BUN (7-17) mg/dL Glucose (74-99) mg/dL Osmolality (275-295) mOsm/kg Calcium (8.4-10.2) mg/dL Ur Random Sodium (40-220) mmol/L 03/29/24 03/29/24 03/29/24 Range/Units 03:03 05:41 05:41 WBC 11.9 H (3.8-10.6) k/uL RBC 3.01 L (3.80-5.40) m/uL Hgb 9.6 L (11.4-16.0) gm/dL Hct 31.2 L (34.0-46.0) % MCV 103.6 H (80.0-100.0) fL MCHC 30.9 L (31.0-37.0) g/dL RDW 17.9 H (11.5-15.5) % Plt Count 118 L (150-450) k/uL Neutrophils # 8.9 H (1.3-7.7) k/uL Sodium 119 L* 122 L (137-145) mmol/L Carbon Dioxide 16 L (22-30) mmol/L BUN 18 H (7-17) mg/dL Glucose 112 H (74-99) mg/dL Osmolality (275-295) mOsm/kg Calcium 7.7 L (8.4-10.2) mg/dL Ur Random Sodium (40-220) mmol/L 03/29/24 03/29/24 03/29/24 Range/Units 05:41 07:25 09:39 WBC (3.8-10.6) k/uL RBC (3.80-5.40) m/uL Hgb (11.4-16.0) gm/dL Hct (34.0-46.0) % MCV (80.0-100.0) fL MCHC (31.0-37.0) g/dL RDW (11.5-15.5) % Plt Count (150-450) k/uL Neutrophils # (1.3-7.7) k/uL Sodium 121 L 122 L 123 L (137-145) mmol/L Carbon Dioxide (22-30) mmol/L BUN (7-17) mg/dL Glucose (74-99) mg/dL Osmolality (275-295) mOsm/kg Calcium (8.4-10.2) mg/dL Ur Random Sodium (40-220) mmol/L Assessment and Plan Plan: Assessment: 1. Hyponatremia. Appears hypovolemic with blood pressure on the lower side as well as tachycardia. High amounts of output of ascitic fluid. Status post Aldactone and IV Lasix with drop in urine sodium level to 116. Gradually improving with 3% saline. Sodium level 123 from this morning. TSH normal. Urine sodium less than 20. Urine osmolality 755. 2. History of alcohol abuse. 3. History of liver cirrhosis. 4. Hypomagnesemia from diuresis and GI losses. Replaced. Better. 5. Status post laparoscopic cholecystectomy March 21, 2024. 6. Nongap metabolic acidosis from GI losses. On oral bicarb. Plan: Maintain 3% saline. Follow-up cortisol level. 2 g sodium bicarb IV push today. Encouraged oral intake. Maintain fluid restriction. Continue to monitor sodium levels closely.
[2024-03-29] MEDS: SODIUM BICARB 8.4% 50 ML SYR (1 MEQ/ML) IV STA (10:43)
--- NOTE | 2024-03-29 10:45 | P.PN ---
Subjective Progress Note Date: 03/29/24 CHIEF COMPLAINT: Cholecystitis HISTORY OF PRESENT ILLNESS: Patient is status post laparoscopic cholecystectomy on March 21, 2024.. She continues to have large amount of ascites draining from her SALVADOR drain site. 850ml ascites fluid drained this AM. Pain is controlled. She is in the ICU due to hyponatremia. Followed by nephrology. Sodium 123. mg 2.0 WBC down from 14.8-11.9. Afebrile. Abdominal US from yesterday shows no free fluid. Patient seen and examined with Dr. Corrigan PHYSICAL EXAM: VITAL SIGNS: Reviewed. GENERAL: Well-developed in no acute distress. ABDOMEN: Soft. Ecchymosis right flank and into the back. Patient does have some mild bruising around the incision site of the umbilicus. No further ascites fluid drainage from the umbilicus. Other incision sites clean dry and intact. Colostomy bag over SALVADOR drain site with ascites fluid in bag NEUROLOGIC: Alert and oriented. Cranial nerves II through XII grossly intact. ASSESSMENT: 1. Cholecystitis 2. Liver cirrhosis 3. Hyponatremia 4. Hypomagnesemia improved PLAN: -Dr. Corrigan will place a suture at old SALVADOR drain site today -Hyponatremia management per nephrology -Continue Regular, low fat diet Physician [employer] Advisory Services Manager note has been reviewed by physician. Signing provider agrees with the documented findings, assessment, and plan of care. Objective - Vital Signs Vital signs: Vital Signs Temp 98.8 F 03/29/24 08:00 Pulse 110 H 03/29/24 09:16 Resp 10 L 03/29/24 09:00 BP 117/74 03/29/24 09:00 Pulse Ox 100 03/29/24 09:00 FiO2 Intake & Output 03/28/24 03/29/24 03/29/24 18:59 06:59 18:59 Intake Total 600 1105 Output Total 1425 1300 400 Balance -825 -195 -400 Weight 114.4 kg 111.3 kg Intake: Intake, IV Titration 385 Amount Sodium Chloride 3%( 385 Hypertonic) 500 ml @ 35 mls/hr IV .[id number] ONE Rx #:[id number] Oral 600 720 Output: Drainage 100 Right 100 Urine 340 550 Other 985 750 400 Other: Voiding Method Toilet Toilet - Labs CBC & Chem 7: 03/29/24 05:41 03/29/24 09:39 Labs: Abnormal Lab Results - Last 24 Hours (Table) 03/28/24 03/28/24 03/28/24 Range/Units 10:12 11:51 14:11 WBC (3.8-10.6) k/uL RBC (3.80-5.40) m/uL Hgb (11.4-16.0) gm/dL Hct (34.0-46.0) % MCV (80.0-100.0) fL MCHC (31.0-37.0) g/dL RDW (11.5-15.5) % Plt Count (150-450) k/uL Neutrophils # (1.3-7.7) k/uL Sodium 118 L* 119 L* 121 L (137-145) mmol/L Carbon Dioxide (22-30) mmol/L BUN (7-17) mg/dL Glucose (74-99) mg/dL Osmolality 256 L (275-295) mOsm/kg Calcium (8.4-10.2) mg/dL Ur Random Sodium (40-220) mmol/L 03/28/24 03/28/24 03/28/24 Range/Units 16:18 17:40 18:16 WBC (3.8-10.6) k/uL RBC (3.80-5.40) m/uL Hgb (11.4-16.0) gm/dL Hct (34.0-46.0) % MCV (80.0-100.0) fL MCHC (31.0-37.0) g/dL RDW (11.5-15.5) % Plt Count (150-450) k/uL Neutrophils # (1.3-7.7) k/uL Sodium 120 L 121 L (137-145) mmol/L Carbon Dioxide (22-30) mmol/L BUN (7-17) mg/dL Glucose (74-99) mg/dL Osmolality (275-295) mOsm/kg Calcium (8.4-10.2) mg/dL Ur Random Sodium <20 L (40-220) mmol/L 03/28/24 03/28/24 03/29/24 Range/Units 20:13 21:47 01:38 WBC (3.8-10.6) k/uL RBC (3.80-5.40) m/uL Hgb (11.4-16.0) gm/dL Hct (34.0-46.0) % MCV (80.0-100.0) fL MCHC (31.0-37.0) g/dL RDW (11.5-15.5) % Plt Count (150-450) k/uL Neutrophils # (1.3-7.7) k/uL Sodium 119 L* 120 L 122 L (137-145) mmol/L Carbon Dioxide (22-30) mmol/L BUN (7-17) mg/dL Glucose (74-99) mg/dL Osmolality (275-295) mOsm/kg Calcium (8.4-10.2) mg/dL Ur Random Sodium (40-220) mmol/L 03/29/24 03/29/24 03/29/24 Range/Units 03:03 05:41 05:41 WBC 11.9 H (3.8-10.6) k/uL RBC 3.01 L (3.80-5.40) m/uL Hgb 9.6 L (11.4-16.0) gm/dL Hct 31.2 L (34.0-46.0) % MCV 103.6 H (80.0-100.0) fL MCHC 30.9 L (31.0-37.0) g/dL RDW 17.9 H (11.5-15.5) % Plt Count 118 L (150-450) k/uL Neutrophils # 8.9 H (1.3-7.7) k/uL Sodium 119 L* 122 L (137-145) mmol/L Carbon Dioxide 16 L (22-30) mmol/L BUN 18 H (7-17) mg/dL Glucose 112 H (74-99) mg/dL Osmolality (275-295) mOsm/kg Calcium 7.7 L (8.4-10.2) mg/dL Ur Random Sodium (40-220) mmol/L 03/29/24 03/29/24 03/29/24 Range/Units 05:41 07:25 09:39 WBC (3.8-10.6) k/uL RBC (3.80-5.40) m/uL Hgb (11.4-16.0) gm/dL Hct (34.0-46.0) % MCV (80.0-100.0) fL MCHC (31.0-37.0) g/dL RDW (11.5-15.5) % Plt Count (150-450) k/uL Neutrophils # (1.3-7.7) k/uL Sodium 121 L 122 L 123 L (137-145) mmol/L Carbon Dioxide (22-30) mmol/L BUN (7-17) mg/dL Glucose (74-99) mg/dL Osmolality (275-295) mOsm/kg Calcium (8.4-10.2) mg/dL Ur Random Sodium (40-220) mmol/L
--- NOTE | 2024-03-29 10:47 | P.PN ---
Subjective Progress Note Date: 03/29/24 Principal diagnosis: Hyponatremia. Patient is a 44-year-old white female with past medical story significant for COPD, alcoholism, liver cirrhosis, ascites with previous paracentesis, esophageal varices, gastric ulcer, and previous GI bleed. Last drink was reportedly 1 month ago. Of note, patient did have a recent esophagogastroduodenoscopy on 02/19/2024 she was found to have a 5 mm antral ulcer with no active bleeding, small distal esophageal varices and mild to moderate gastritis. She did have a HIDA scan on 02/23/2024. she was brought in for a laparoscopic cholecystectomy, which was reportedly done on March,. No perioperative complications reported. Postoperatively, the patient was recovering on the medical surgical unit. She is tolerating her diet. She was noted to have copious serous output from her SALVADOR drain. In fact, a total of 2.4 L has drained so far in the last 24 hours. She was also being diuresed with Lasix. Subsequently, became hyponatremic, sodium was as low as 116. Nephrology recommended starting 3% hypertonic saline, which required transfer the patient to the intensive care unit for monitoring. Patient is currently sitting up in bed, on room air, in no acute distress. No signs of alcohol withdrawal. Lasix has been stopped. She continues to have significant amount of serous drainage from a prior drain site, however, her SALVADOR drain has been removed. She has abdominal ascites. No cognitive symptoms. No confusion/AMS, headache, seizures. Hypertonic saline is currently infusing at 25 mL/h. Current sodium is 119, with a goal of 120 mmol/L. Nephrology is managing. Remaining labs include a CBC with a WBC count 17.2, hemoglobin 10, hematocrit 31, platelets 133. BMP: Sodium 119, potassium 4.2, chloride 96, serum bicarb 16, BUN 15, creatinine 0.79, glucose 103. Most recent LFTs unremarkable. Total bili 1.7. Ammonia 37. Has remained afebrile. Heart rhythm appears sinus tachycardia on bedside monitor with a heart rate of 112 beats per minutes, blood pressure stable at 103/53 mmHg. Hemodynamics are stable. Progress note dated March 29, 2024. 44-year-old female with a significant past medical history as noted above. The patient is seen in the intensive care unit, room 262. She remains on room air. She is receiving 3% saline as per nephrology, at 35 cc an hour. Today's sodium was 122. Clinically she is very stable. Current laboratory data includes a white count 11.9, hemoglobin 9.6, hematocrit 31.2, and a platelet count of 118,000. Sodium 122, potassium 4.5, chlorides 102, CO2 16, BUN 18, creatinine 0.71. TSH is 1.80. No significant pathology is noted on abdominal ultrasound. Objective - Vital Signs Vital signs: Vital Signs Temp 98.8 F 03/29/24 08:00 Pulse 113 H 03/29/24 10:00 Resp 22 03/29/24 10:00 BP 110/50 03/29/24 10:00 Pulse Ox 97 03/29/24 10:00 FiO2 Intake & Output 03/28/24 03/29/24 03/29/24 18:59 06:59 18:59 Intake Total 600 1105 105 Output Total 1425 1300 400 Balance -825 195 -295 Weight 114.4 kg 111.3 kg Intake: IV 105 Sodium Chloride 3%( 105 Hypertonic) 500 ml @ 35 mls/hr IV .[id number] ONE Rx #:[id number] Intake, IV Titration 385 Amount Sodium Chloride 3%( 385 Hypertonic) 500 ml @ 35 mls/hr IV .[id number] ONE Rx #:[id number] Oral 600 720 Output: Drainage 100 Right 100 Urine 340 550 Other 985 750 400 Other: Voiding Method Toilet Toilet Toilet - Exam No acute distress, oriented 3. The patient is currently on room air. HEENT examination is grossly unremarkable. Mucous membranes are moist. No oral lesions. Neck supple. Full range of motion. No adenopathy thyromegaly or neck vein distention. Cardiovascular examination reveals regular rhythm rate. S1-S2 normal. No S3 or S4. No discernible murmur noted. Soft systolic murmur is noted. Lungs reveal clear breath sounds. Breath sounds are equal bilaterally. No adventitious lung sounds including wheezes rhonchi or crackles. Abdomen soft bowel sounds are heard. No masses or tenderness. Extremities are intact. No cyanosis clubbing or edema. Skin is without rash or lesion. Neurologic examination is brief but nonfocal. - Labs CBC & Chem 7: 03/29/24 05:41 03/29/24 09:39 Labs: Abnormal Lab Results - Last 24 Hours (Table) 03/28/24 03/28/24 03/28/24 Range/Units 10:12 11:51 14:11 WBC (3.8-10.6) k/uL RBC (3.80-5.40) m/uL Hgb (11.4-16.0) gm/dL Hct (34.0-46.0) % MCV (80.0-100.0) fL MCHC (31.0-37.0) g/dL RDW (11.5-15.5) % Plt Count (150-450) k/uL Neutrophils # (1.3-7.7) k/uL Sodium 118 L* 119 L* 121 L (137-145) mmol/L Carbon Dioxide (22-30) mmol/L BUN (7-17) mg/dL Glucose (74-99) mg/dL Osmolality 256 L (275-295) mOsm/kg Calcium (8.4-10.2) mg/dL Ur Random Sodium (40-220) mmol/L 03/28/24 03/28/24 03/28/24 Range/Units 16:18 17:40 18:16 WBC (3.8-10.6) k/uL RBC (3.80-5.40) m/uL Hgb (11.4-16.0) gm/dL Hct (34.0-46.0) % MCV (80.0-100.0) fL MCHC (31.0-37.0) g/dL RDW (11.5-15.5) % Plt Count (150-450) k/uL Neutrophils # (1.3-7.7) k/uL Sodium 120 L 121 L (137-145) mmol/L Carbon Dioxide (22-30) mmol/L BUN (7-17) mg/dL Glucose (74-99) mg/dL Osmolality (275-295) mOsm/kg Calcium (8.4-10.2) mg/dL Ur Random Sodium <20 L (40-220) mmol/L 03/28/24 03/28/24 03/29/24 Range/Units 20:13 21:47 01:38 WBC (3.8-10.6) k/uL RBC (3.80-5.40) m/uL Hgb (11.4-16.0) gm/dL Hct (34.0-46.0) % MCV (80.0-100.0) fL MCHC (31.0-37.0) g/dL RDW (11.5-15.5) % Plt Count (150-450) k/uL Neutrophils # (1.3-7.7) k/uL Sodium 119 L* 120 L 122 L (137-145) mmol/L Carbon Dioxide (22-30) mmol/L BUN (7-17) mg/dL Glucose (74-99) mg/dL Osmolality (275-295) mOsm/kg Calcium (8.4-10.2) mg/dL Ur Random Sodium (40-220) mmol/L 03/29/24 03/29/24 03/29/24 Range/Units 03:03 05:41 05:41 WBC 11.9 H (3.8-10.6) k/uL RBC 3.01 L (3.80-5.40) m/uL Hgb 9.6 L (11.4-16.0) gm/dL Hct 31.2 L (34.0-46.0) % MCV 103.6 H (80.0-100.0) fL MCHC 30.9 L (31.0-37.0) g/dL RDW 17.9 H (11.5-15.5) % Plt Count 118 L (150-450) k/uL Neutrophils # 8.9 H (1.3-7.7) k/uL Sodium 119 L* 122 L (137-145) mmol/L Carbon Dioxide 16 L (22-30) mmol/L BUN 18 H (7-17) mg/dL Glucose 112 H (74-99) mg/dL Osmolality (275-295) mOsm/kg Calcium 7.7 L (8.4-10.2) mg/dL Ur Random Sodium (40-220) mmol/L 03/29/24 03/29/24 03/29/24 Range/Units 05:41 07:25 09:39 WBC (3.8-10.6) k/uL RBC (3.80-5.40) m/uL Hgb (11.4-16.0) gm/dL Hct (34.0-46.0) % MCV (80.0-100.0) fL MCHC (31.0-37.0) g/dL RDW (11.5-15.5) % Plt Count (150-450) k/uL Neutrophils # (1.3-7.7) k/uL Sodium 121 L 122 L 123 L (137-145) mmol/L Carbon Dioxide (22-30) mmol/L BUN (7-17) mg/dL Glucose (74-99) mg/dL Osmolality (275-295) mOsm/kg Calcium (8.4-10.2) mg/dL Ur Random Sodium (40-220) mmol/L Assessment and Plan Assessment: Hyponatremia, currently on a 3% hypertonic saline. Status postoperative day #8, following a laparoscopic cholecystectomy. Non-anion gap metabolic acidosis. Sinus tachycardia. Macrocytic anemia. Alcoholic liver disease and abdominal ascites. History of GI bleed status post esophagogastroduodenoscopy on 02/19/2024. History of esophageal varices. History of mild to moderate gastritis and 5 mm antral gastric ulcer . History of alcoholism, last drink reportedly 1 month ago. Chronic obstructive pulmonary disease, stable. Chronic ongoing tobacco dependence. History of bipolar disorder. Plan: Plan dated March 29, 2024. The patient is seen in the intensive care unit. The patient is on 3% saline at 35 cc an hour. Today's sodium was 122. Clinically, the patient is stable. No respiratory issues to speak of. Labs, x-rays, medications are reviewed. We will continue to follow the patient, and make recommendations along the way. Prognosis is certainly guarded. The patient will continue on the proton pump in hibitor. Nephrology is managing the patient's 3% saline infusion. Time with Patient: Less than 30
[2024-03-29] MEDS: SODIUM CHLORIDE 3%(HYPERTONIC) 500 ML IV ONE (17:04)
--- NOTE | 2024-03-29 22:44 | PN ---
PROGRESS NOTE DATE OF SERVICE: 03/28/2024 SUBJECTIVE: The patient was sent in to the ICU, 03/28/2024. She had hyponatremia. She had a lot of ascitic fluid removed through the SALVADOR tube in the right side of the abdomen as well as the dressing changes. Her sodium went down to 120. She is on fluid restriction of 1200 mL. Renal functions at baseline. OBJECTIVE: VITAL SIGNS: Stable. Afebrile. CARDIOVASCULAR: S1 and S2. LUNGS: Transmitted upper sounds. GI: Ascitic fluid noted. EXTREMITIES: No edema. Liver disease, hyponatremia, hypovolemic with blood pressure on the lower side as well as tachycardia. High amount of ascitic fluid produced. Status post Aldactone, IV Lasix. Drop in urine sodium to 116, improved to 120. History of alcohol abuse, liver cirrhosis, status post gallbladder surgery. Dr. Corrigan consulted us for ascitic fluid treatment due to hyponatremia. She was placed in ICU. She did give her 3% hypertonic solution overnight. Check urine sodium level, serum and urine osmolality, TSH, cortisol levels. Oral bicarb. Maintain fluid restriction. Prognosis guarded. ICU time is 20 minutes. MMODL / IJN: [id number] /
[2024-03-30 06:12] LABS: Anisocytosis Slight; Basophils % (A) 0 %; Eosinophils # (A) 0.2 k/uL (0-0.7); Eosinophils % (A) 2 %; HGB 9.3 gm/dL (11.4-16.0); Hypochromasia Marked; Lymphocytes # (A) 1.8 k/uL (1.0-4.8); Lymphocytes % (A) 17 %; MCH 32.2 pg (25.0-35.0); MCV 103.8 fL (80.0-100.0); Macrocytosis Moderate; Mean Platelet Volume 9.3; Monocytes # (A) 0.7 k/uL (0-1.0); Monocytes % (A) 6 %; Neutrophils # (A) 7.6 k/uL (1.3-7.7); Neutrophils % (A) 71 %; Platelet Count 108 k/uL (150-450); Poikilocytosis Slight; RBC 2.89 m/uL (3.80-5.40); WBC 10.7 k/uL (3.8-10.6)
[2024-03-30 06:29] LABS: ALT 22 U/L (4-34); AST 46 U/L (14-36); African American GFR (CKD) >90 (>60 ml/min/1.73 sqM); Alkaline Phosphatase 81 U/L (38-126); Anion Gap 0 mmol/L; Blood Urea Nitrogen 20 mg/dL (7-17); Calcium 7.7 mg/dL (8.4-10.2); Carbon Dioxide 19 mmol/L (22-30); Chloride 105 mmol/L (98-107); Glucose 105 mg/dL (74-99); Non-African American GFR(CKD) >90 (>60 ml/min/1.73 sqM); Potassium 4.6 mmol/L (3.5-5.1); Sodium 124 mmol/L (137-145); Total Bilirubin 1.9 mg/dL (0.2-1.3); Total Protein 4.4 g/dL (6.3-8.2)
[2024-03-30] MEDS: SODIUM CHLORIDE 3%(HYPERTONIC) 500 ML IV ONE (08:38)
--- NOTE | 2024-03-30 10:10 | P.PN ---
Subjective Patient is seen in follow-up for hyponatremia. Most recent sodium level 124 from this morning. On 3% saline. Oral intake fair. No vomiting or diarrhea. Still having leakage of ascitic fluid. Vital signs are stable. General: No acute distress. HEENT: Head exam is unremarkable. LUNGS: No audible rhonchi or wheezes. HEART: Rate and Rhythm are regular. ABDOMEN: Nontender. EXTREMITITES: No edema. Objective - Vital Signs Vital signs: Vital Signs Temp 99.1 F 03/30/24 08:00 Pulse 109 H 03/30/24 10:00 Resp 18 03/30/24 10:00 BP 88/53 03/30/24 10:00 Pulse Ox 93 L 03/30/24 10:00 FiO2 Intake & Output 03/29/24 03/30/24 03/30/24 18:59 06:59 18:59 Intake Total 7483 799 2899 Output Total 1225 650 550 Balance -70 98 455 Weight 111 kg Intake: IV 315 420 105 Sodium Chloride 3%( 315 420 105 Hypertonic) 500 ml @ 35 mls/hr IV .[id number] ONE Rx #:[id number] Oral 840 328 900 Output: Drainage 150 Right Abdomen 150 Urine 550 350 200 Other 675 300 200 Other: Voiding Method Toilet Toilet - Labs CBC & Chem 7: 03/30/24 05:37 03/30/24 05:37 Labs: Abnormal Lab Results - Last 24 Hours (Table) 03/29/24 03/29/24 03/29/24 Range/Units 11:43 13:33 15:49 WBC (3.8-10.6) k/uL RBC (3.80-5.40) m/uL Hgb (11.4-16.0) gm/dL Hct (34.0-46.0) % MCV (80.0-100.0) fL RDW (11.5-15.5) % Plt Count (150-450) k/uL Sodium 124 L 126 L 125 L (137-145) mmol/L Carbon Dioxide (22-30) mmol/L BUN (7-17) mg/dL Glucose (74-99) mg/dL Calcium (8.4-10.2) mg/dL Total Bilirubin (0.2-1.3) mg/dL AST (14-36) U/L Ammonia (<30) umol/L Total Protein (6.3-8.2) g/dL Albumin (3.5-5.0) g/dL 03/29/24 03/29/24 03/29/24 Range/Units 19:09 21:02 23:18 WBC (3.8-10.6) k/uL RBC (3.80-5.40) m/uL Hgb (11.4-16.0) gm/dL Hct (34.0-46.0) % MCV (80.0-100.0) fL RDW (11.5-15.5) % Plt Count (150-450) k/uL Sodium 126 L 125 L 125 L (137-145) mmol/L Carbon Dioxide (22-30) mmol/L BUN (7-17) mg/dL Glucose (74-99) mg/dL Calcium (8.4-10.2) mg/dL Total Bilirubin (0.2-1.3) mg/dL AST (14-36) U/L Ammonia (<30) umol/L Total Protein (6.3-8.2) g/dL Albumin (3.5-5.0) g/dL 03/30/24 03/30/24 03/30/24 Range/Units 01:33 03:27 05:37 WBC (3.8-10.6) k/uL RBC (3.80-5.40) m/uL Hgb (11.4-16.0) gm/dL Hct (34.0-46.0) % MCV (80.0-100.0) fL RDW (11.5-15.5) % Plt Count (150-450) k/uL Sodium 123 L 126 L 124 L (137-145) mmol/L Carbon Dioxide 19 L (22-30) mmol/L BUN 20 H (7-17) mg/dL Glucose 105 H (74-99) mg/dL Calcium 7.7 L (8.4-10.2) mg/dL Total Bilirubin 1.9 H (0.2-1.3) mg/dL AST 46 H (14-36) U/L Ammonia (<30) umol/L Total Protein 4.4 L (6.3-8.2) g/dL Albumin 2.0 L (3.5-5.0) g/dL 03/30/24 03/30/24 Range/Units 05:37 05:37 WBC 10.7 H (3.8-10.6) k/uL RBC 2.89 L (3.80-5.40) m/uL Hgb 9.3 L (11.4-16.0) gm/dL Hct 30.0 L (34.0-46.0) % MCV 103.8 H (80.0-100.0) fL RDW 18.0 H (11.5-15.5) % Plt Count 108 L (150-450) k/uL Sodium (137-145) mmol/L Carbon Dioxide (22-30) mmol/L BUN (7-17) mg/dL Glucose (74-99) mg/dL Calcium (8.4-10.2) mg/dL Total Bilirubin (0.2-1.3) mg/dL AST (14-36) U/L Ammonia 60 H (<30) umol/L Total Protein (6.3-8.2) g/dL Albumin (3.5-5.0) g/dL Assessment and Plan Plan: Assessment: 1. Hyponatremia. Initially hypovolemic. Still having leakage of ascitic fluid. Status post Aldactone and IV Lasix with drop in urine sodium level to 116. Gradually improving with 3% saline. Sodium level 124 from this morning. TSH normal. Urine sodium less than 20. Urine osmolality 755. Cortisol level 10. 2. History of alcohol abuse. 3. History of liver cirrhosis. 4. Hypomagnesemia from diuresis and GI losses. Replaced. Better. 5. Status post laparoscopic cholecystectomy March 21, 2024. 6. Nongap metabolic acidosis from GI losses. On oral bicarb. Better. Plan: Discontinue 3% saline. Add Aldactone 25 mg twice daily. Repeat sodium level pending. Encouraged oral intake. Maintain fluid restriction. Continue to monitor sodium levels closely.
--- NOTE | 2024-03-30 11:20 | P.PN ---
Subjective Progress Note Date: 03/30/24 Principal diagnosis: Hyponatremia. Patient is a 44-year-old white female with past medical story significant for COPD, alcoholism, liver cirrhosis, ascites with previous paracentesis, esophageal varices, gastric ulcer, and previous GI bleed. Last drink was reportedly 1 month ago. Of note, patient did have a recent esophagogastroduodenoscopy on 02/19/2024 she was found to have a 5 mm antral ulcer with no active bleeding, small distal esophageal varices and mild to moderate gastritis. She did have a HIDA scan on 02/23/2024. she was brought in for a laparoscopic cholecystectomy, which was reportedly done on March,. No perioperative complications reported. Postoperatively, the patient was recovering on the medical surgical unit. She is tolerating her diet. She was noted to have copious serous output from her SALVADOR drain. In fact, a total of 2.4 L has drained so far in the last 24 hours. She was also being diuresed with Lasix. Subsequently, became hyponatremic, sodium was as low as 116. Nephrology recommended starting 3% hypertonic saline, which required transfer the patient to the intensive care unit for monitoring. Patient is currently sitting up in bed, on room air, in no acute distress. No signs of alcohol withdrawal. Lasix has been stopped. She continues to have significant amount of serous drainage from a prior drain site, however, her SALVADOR drain has been removed. She has abdominal ascites. No cognitive symptoms. No confusion/AMS, headache, seizures. Hypertonic saline is currently infusing at 25 mL/h. Current sodium is 119, with a goal of 120 mmol/L. Nephrology is managing. Remaining labs include a CBC with a WBC count 17.2, hemoglobin 10, hematocrit 31, platelets 133. BMP: Sodium 119, potassium 4.2, chloride 96, serum bicarb 16, BUN 15, creatinine 0.79, glucose 103. Most recent LFTs unremarkable. Total bili 1.7. Ammonia 37. Has remained afebrile. Heart rhythm appears sinus tachycardia on bedside monitor with a heart rate of 112 beats per minutes, blood pressure stable at 103/53 mmHg. Hemodynamics are stable. Progress note dated March 29, 2024. 44-year-old female with a significant past medical history as noted above. The patient is seen in the intensive care unit, room 262. She remains on room air. She is receiving 3% saline as per nephrology, at 35 cc an hour. Today's sodium was 122. Clinically she is very stable. Current laboratory data includes a white count 11.9, hemoglobin 9.6, hematocrit 31.2, and a platelet count of 118,000. Sodium 122, potassium 4.5, chlorides 102, CO2 16, BUN 18, creatinine 0.71. TSH is 1.80. No significant pathology is noted on abdominal ultrasound. Progress note dated March 30, 2024. 44-year-old female seen in room 262. The patient continues on room air. She is getting 3% saline at 35 cc an hour. Her sodium today was 124. The patient appears to be doing relatively well. She still has significant drainage, from the incision, on the abdomen. White count was 10.7, hemoglobin 9.3, hematocrit 30, platelet count 108,000. Sodium 126, potassium 4.6, chlorides 105, CO2 19, BUN 20, creatinine 0.71. Glucose is 105. Calcium is 7.7. Albumin is 2.0. Amm onia level is 60. Objective - Vital Signs Vital signs: Vital Signs Temp 99.1 F 03/30/24 08:00 Pulse 109 H 03/30/24 10:00 Resp 18 03/30/24 10:00 BP 88/53 03/30/24 10:00 Pulse Ox 93 L 03/30/24 10:00 FiO2 Intake & Output 03/29/24 03/30/24 03/30/24 18:59 06:59 18:59 Intake Total 6586 325 1759 Output Total 1225 650 550 Balance -70 98 455 Weight 111 kg Intake: IV 315 420 105 Sodium Chloride 3%( 315 420 105 Hypertonic) 500 ml @ 35 mls/hr IV .[id number] ONE Rx #:[id number] Oral 840 328 900 Output: Drainage 150 Right Abdomen 150 Urine 550 350 200 Other 675 300 200 Other: Voiding Method Toilet Toilet Toilet - Exam No acute distress, oriented 3. The patient is currently on room air. HEENT examination is grossly unremarkable. Mucous membranes are moist. No oral lesions. Neck supple. Full range of motion. No adenopathy thyromegaly or neck vein distention. Cardiovascular examination reveals regular rhythm rate. S1-S2 normal. No S3 or S4. No discernible murmur noted. Soft systolic murmur is noted. Lungs reveal clear breath sounds. Breath sounds are equal bilaterally. No adventitious lung sounds including wheezes rhonchi or crackles. Abdomen soft bowel sounds are heard. No masses or tenderness. Extremities are intact. No cyanosis clubbing or edema. Skin is without rash or lesion. Neurologic examination is brief but nonfocal. - Labs CBC & Chem 7: 03/30/24 05:37 03/30/24 09:47 Labs: Abnormal Lab Results - Last 24 Hours (Table) 03/29/24 03/29/24 03/29/24 Range/Units 11:43 13:33 15:49 WBC (3.8-10.6) k/uL RBC (3.80-5.40) m/uL Hgb (11.4-16.0) gm/dL Hct (34.0-46.0) % MCV (80.0-100.0) fL RDW (11.5-15.5) % Plt Count (150-450) k/uL Sodium 124 L 126 L 125 L (137-145) mmol/L Carbon Dioxide (22-30) mmol/L BUN (7-17) mg/dL Glucose (74-99) mg/dL Calcium (8.4-10.2) mg/dL Total Bilirubin (0.2-1.3) mg/dL AST (14-36) U/L Ammonia (<30) umol/L Total Protein (6.3-8.2) g/dL Albumin (3.5-5.0) g/dL 03/29/24 03/29/24 03/29/24 Range/Units 19:09 21:02 23:18 WBC (3.8-10.6) k/uL RBC (3.80-5.40) m/uL Hgb (11.4-16.0) gm/dL Hct (34.0-46.0) % MCV (80.0-100.0) fL RDW (11.5-15.5) % Plt Count (150-450) k/uL Sodium 126 L 125 L 125 L (137-145) mmol/L Carbon Dioxide (22-30) mmol/L BUN (7-17) mg/dL Glucose (74-99) mg/dL Calcium (8.4-10.2) mg/dL Total Bilirubin (0.2-1.3) mg/dL AST (14-36) U/L Ammonia (<30) umol/L Total Protein (6.3-8.2) g/dL Albumin (3.5-5.0) g/dL 03/30/24 03/30/24 03/30/24 Range/Units 01:33 03:27 05:37 WBC (3.8-10.6) k/uL RBC (3.80-5.40) m/uL Hgb (11.4-16.0) gm/dL Hct (34.0-46.0) % MCV (80.0-100.0) fL RDW (11.5-15.5) % Plt Count (150-450) k/uL Sodium 123 L 126 L 124 L (137-145) mmol/L Carbon Dioxide 19 L (22-30) mmol/L BUN 20 H (7-17) mg/dL Glucose 105 H (74-99) mg/dL Calcium 7.7 L (8.4-10.2) mg/dL Total Bilirubin 1.9 H (0.2-1.3) mg/dL AST 46 H (14-36) U/L Ammonia (<30) umol/L Total Protein 4.4 L (6.3-8.2) g/dL Albumin 2.0 L (3.5-5.0) g/dL 03/30/24 03/30/24 03/30/24 Range/Units 05:37 05:37 09:47 WBC 10.7 H (3.8-10.6) k/uL RBC 2.89 L (3.80-5.40) m/uL Hgb 9.3 L (11.4-16.0) gm/dL Hct 30.0 L (34.0-46.0) % MCV 103.8 H (80.0-100.0) fL RDW 18.0 H (11.5-15.5) % Plt Count 108 L (150-450) k/uL Sodium 126 L (137-145) mmol/L Carbon Dioxide (22-30) mmol/L BUN (7-17) mg/dL Glucose (74-99) mg/dL Calcium (8.4-10.2) mg/dL Total Bilirubin (0.2-1.3) mg/dL AST (14-36) U/L Ammonia 60 H (<30) umol/L Total Protein (6.3-8.2) g/dL Albumin (3.5-5.0) g/dL Assessment and Plan Assessment: Hyponatremia, currently on a 3% hypertonic saline. Status postoperative day #9, following a laparoscopic cholecystectomy. Non-anion gap metabolic acidosis. Sinus tachycardia. Macrocytic anemia. Alcoholic liver disease and abdominal ascites. History of GI bleed status post esophagogastroduodenoscopy on 02/19/2024. History of esophageal varices. History of mild to moderate gastritis and 5 mm antral gastric ulcer . History of alcoholism, last drink reportedly 1 month ago. Chronic obstructive pulmonary disease, stable. Chronic ongoing tobacco dependence. History of bipolar disorder. Plan: Plan dated March 29, 2024. The patient is seen in the intensive care unit. The patient is on 3% saline at 35 cc an hour. Today's sodium was 122. Clinically, the patient is stable. No respiratory issues to speak of. Labs, x-rays, medications are reviewed. We will continue to follow the patient, and make recommendations along the way. Prognosis is certainly guarded. The patient will continue on the proton pump inhibitor. Nephrology is managing the patient's 3% saline infusion. Plan dated March 30, 2024. The patient is seen in the intensive care unit, room 262. She is sitting in the chair next to the hospital bed. She is on room air. The patient is getting 3% saline at 35 cc an hour. Today sodium was initially 124. Repeat was 126. Labs, x-rays, and all medications are reviewed. The patient's overall prognosis remains guarded. We will continue to follow make recommendations along the way. Time with Patient: Less than 30
[2024-03-30] MEDS: SPIRONOLACTONE 25 MG TAB PO SCH (11:52)
[2024-03-30 12:30] LABS: Appearance,Urine Turbid (Clear); Bacteria,Urine Few /hpf; Bilirubin,Urine Negative (Negative); Blood,Urine Negative (Negative); Color,Urine Dark Yellow; Glucose,Urine (UA) Negative (Negative); Ketones,Urine Negative (Negative); Leukocyte Esterase,Urine Large (Negative); Mucus,Urine Many /hpf; Nitrite,Urine Negative (Negative); PH, Urine 6.5 (5.0-8.0); Protein,Urine 1+ (Negative); RBC,Urine 10 /hpf (0-5); Specific Gravity,Urine 1.034 (1.001-1.035); Squamous Epithelial Cell,Urine 32 /hpf (0-4); WBC,Urine 87 /hpf (0-5)
--- NOTE | 2024-03-30 13:04 | P.PN ---
Subjective Progress Note Date: 03/30/24 CHIEF COMPLAINT: Cholecystitis HISTORY OF PRESENT ILLNESS: Patient is status post laparoscopic cholecystectomy on March 21, 2024. Patient had sutures placed at old SALVADOR drain site. She continued to have about 500 cc of fluid from the SALVADOR drain site. Patient reports her pain is controlled. Denies any nausea or vomiting. Afebrile. She is having bowel movements. WBC is down from 11-10 Hgb 9.3 plt 108 sodium 124. Patient seen by Dr. Corrigan PHYSICAL EXAM: VITAL SIGNS: Reviewed. GENERAL: Well-developed in no acute distress. ABDOMEN: Soft. Ecchymosis right flank and into the back. Patient does have some mild bruising around the incision site of the umbilicus. No further ascites fluid drainage from the umbilicus. Other incision sites clean dry and intact. Sutures over SALVADOR drain site with persistent ascites fluid noted NEUROLOGIC: Alert and oriented. Cranial nerves II through XII grossly intact. ASSESSMENT: 1. Cholecystitis 2. Ascites fluid leaking from SALVADOR drain site due to chronic liver cirrhosis 3. Hyponatremia PLAN: -Dr. Corrigan discussed case with nephrology. Aldactone added -Hyponatremia management per nephrology -Continue Regular, low fat diet Physician Title Manager note has been reviewed by physician. Signing provider agrees with the documented findings, assessment, and plan of care. Objective - Vital Signs Vital signs: Vital Signs Temp 99.1 F 03/30/24 08:00 Pulse 118 H 03/30/24 11:58 Resp 20 03/30/24 11:00 BP 100/60 03/30/24 11:00 Pulse Ox 92 L 03/30/24 11:00 FiO2 Intake & Output 03/29/24 03/30/24 03/30/24 18:59 06:59 18:59 Intake Total 3032 497 3925 Output Total 1225 650 590 Balance -70 98 515 Weight 111 kg Intake: IV 315 420 105 Sodium Chloride 3%( 315 420 105 Hypertonic) 500 ml @ 35 mls/hr IV .[id number] ONE Rx #:[id number] Oral 138 713 5291 Output: Drainage 150 Right Abdomen 150 Urine 550 350 240 Other 675 300 200 Other: Voiding Method Toilet Toilet Toilet - Labs CBC & Chem 7: 03/30/24 05:37 03/30/24 09:47 Labs: Abnormal Lab Results - Last 24 Hours (Table) 03/29/24 03/29/24 03/29/24 Range/Units 13:33 15:49 19:09 WBC (3.8-10.6) k/uL RBC (3.80-5.40) m/uL Hgb (11.4-16.0) gm/dL Hct (34.0-46.0) % MCV (80.0-100.0) fL RDW (11.5-15.5) % Plt Count (150-450) k/uL Sodium 126 L 125 L 126 L (137-145) mmol/L Carbon Dioxide (22-30) mmol/L BUN (7-17) mg/dL Glucose (74-99) mg/dL Calcium (8.4-10.2) mg/dL Total Bilirubin (0.2-1.3) mg/dL AST (14-36) U/L Ammonia (<30) umol/L Total Protein (6.3-8.2) g/dL Albumin (3.5-5.0) g/dL Urine Appearance (Clear) Urine Protein (Negative) Ur Leukocyte Esterase (Negative) Urine RBC (0-5) /hpf Urine WBC (0-5) /hpf Ur Squamous Epith Cells (0-4) /hpf Urine Bacteria (None) /hpf Urine Mucus (None) /hpf 03/29/24 03/29/24 03/30/24 Range/Units 21:02 23:18 01:33 WBC (3.8-10.6) k/uL RBC (3.80-5.40) m/uL Hgb (11.4-16.0) gm/dL Hct (34.0-46.0) % MCV (80.0-100.0) fL RDW (11.5-15.5) % Plt Count (150-450) k/uL Sodium 125 L 125 L 123 L (137-145) mmol/L Carbon Dioxide (22-30) mmol/L BUN (7-17) mg/dL Glucose (74-99) mg/dL Calcium (8.4-10.2) mg/dL Total Bilirubin (0.2-1.3) mg/dL AST (14-36) U/L Ammonia (<30) umol/L Total Protein (6.3-8.2) g/dL Albumin (3.5-5.0) g/dL Urine Appearance (Clear) Urine Protein (Negative) Ur Leukocyte Esterase (Negative) Urine RBC (0-5) /hpf Urine WBC (0-5) /hpf Ur Squamous Epith Cells (0-4) /hpf Urine Bacteria (None) /hpf Urine Mucus (None) /hpf 03/30/24 03/30/24 03/30/24 Range/Units 03:27 05:37 05:37 WBC 10.7 H (3.8-10.6) k/uL RBC 2.89 L (3.80-5.40) m/uL Hgb 9.3 L (11.4-16.0) gm/dL Hct 30.0 L (34.0-46.0) % MCV 103.8 H (80.0-100.0) fL RDW 18.0 H (11.5-15.5) % Plt Count 108 L (150-450) k/uL Sodium 126 L 124 L (137-145) mmol/L Carbon Dioxide 19 L (22-30) mmol/L BUN 20 H (7-17) mg/dL Glucose 105 H (74-99) mg/dL Calcium 7.7 L (8.4-10.2) mg/dL Total Bilirubin 1.9 H (0.2-1.3) mg/dL AST 46 H (14-36) U/L Ammonia (<30) umol/L Total Protein 4.4 L (6.3-8.2) g/dL Albumin 2.0 L (3.5-5.0) g/dL Urine Appearance (Clear) Urine Protein (Negative) Ur Leukocyte Esterase (Negative) Urine RBC (0-5) /hpf Urine WBC (0-5) /hpf Ur Squamous Epith Cells (0-4) /hpf Urine Bacteria (None) /hpf Urine Mucus (None) /hpf 03/30/24 03/30/24 03/30/24 Range/Units 05:37 09:47 11:18 WBC (3.8-10.6) k/uL RBC (3.80-5.40) m/uL Hgb (11.4-16.0) gm/dL Hct (34.0-46.0) % MCV (80.0-100.0) fL RDW (11.5-15.5) % Plt Count (150-450) k/uL Sodium 126 L (137-145) mmol/L Carbon Dioxide (22-30) mmol/L BUN (7-17) mg/dL Glucose (74-99) mg/dL Calcium (8.4-10.2) mg/dL Total Bilirubin (0.2-1.3) mg/dL AST (14-36) U/L Ammonia 60 H (<30) umol/L Total Protein (6.3-8.2) g/dL Albumin (3.5-5.0) g/dL Urine Appearance Turbid H (Clear) Urine Protein 1+ H (Negative) Ur Leukocyte Esterase Large H (Negative) Urine RBC 10 H (0-5) /hpf Urine WBC 87 H (0-5) /hpf Ur Squamous Epith Cells 32 H (0-4) /hpf Urine Bacteria Few H (None) /hpf Urine Mucus Many H (None) /hpf
[2024-03-30] MEDS: TOLVAPTAN 15 MG TABLET PO ONE (17:07)
[2024-03-30] MEDS ORDERED: GABAPENTIN 100 MG CAP ONE (22:00)
[2024-03-30] MEDS ORDERED: HYDROcodone/APAP 5-325MG 1 EACH TAB ONE (22:00)
[2024-03-30] MEDS ORDERED: RIFAXIMIN 200 MG TAB ONE (22:00)
[2024-03-30] MEDS ORDERED: SPIRONOLACTONE 25 MG TAB ONE (22:00)
[2024-03-30] MEDS ORDERED: SODIUM BICARBONATE TAB 650 MG TAB ONE (22:00)
[2024-03-30] MEDS ORDERED: QUEtiapine 100 MG TAB ONE (22:00)
[2024-03-31 08:04] LABS: African American GFR (CKD) >90 (>60 ml/min/1.73 sqM); Anion Gap 4 mmol/L; Blood Urea Nitrogen 19 mg/dL (7-17); Calcium 8.2 mg/dL (8.4-10.2); Carbon Dioxide 19 mmol/L (22-30); Chloride 102 mmol/L (98-107); Glucose 93 mg/dL (74-99); Non-African American GFR(CKD) 84 (>60 ml/min/1.73 sqM); Potassium 4.7 mmol/L (3.5-5.1); Sodium 125 mmol/L (137-145)
[2024-03-31 08:19] LABS: Anisocytosis Slight; Basophils % (A) 0 %; Eosinophils # (A) 0.4 k/uL (0-0.7); Eosinophils % (A) 3 %; HCT 30.6 % (34.0-46.0); HGB 9.6 gm/dL (11.4-16.0); Hypochromasia Marked; Lymphocytes # (A) 2.2 k/uL (1.0-4.8); Lymphocytes % (A) 21 %; MCHC 31.5 g/dL (31.0-37.0); MCV 104.9 fL (80.0-100.0); Macrocytosis Moderate; Mean Platelet Volume 10.1; Monocytes # (A) 0.6 k/uL (0-1.0); Monocytes % (A) 6 %; Neutrophils # (A) 7.2 k/uL (1.3-7.7); Neutrophils % (A) 67 %; Platelet Count 103 k/uL (150-450); Poikilocytosis Slight; RBC 2.92 m/uL (3.80-5.40); WBC 10.8 k/uL (3.8-10.6)
[2024-03-31] MEDS: FUROSEMIDE 10 MG/ML 4 ML VIAL IV STA (09:45)
[2024-03-31] MEDS: SPIRONOLACTONE 25 MG TAB PO SCH (09:46)
--- NOTE | 2024-03-31 09:49 | P.PN ---
Subjective Patient is seen in follow-up for hyponatremia. Sodium level stable at 125 this morning. Oral intake fair. No vomiting or diarrhea. Continues to have leakage of ascitic fluid. Vital signs are stable. General: No acute distress. HEENT: Head exam is unremarkable. LUNGS: No audible rhonchi or wheezes. HEART: Rate and Rhythm are regular. ABDOMEN: Nontender. EXTREMITITES: No edema. Objective - Vital Signs Vital signs: Vital Signs Temp 98.5 F 03/31/24 04:00 Pulse 118 H 03/31/24 07:59 Resp 12 03/31/24 07:00 BP 101/62 03/31/24 07:00 Pulse Ox 95 03/31/24 07:00 FiO2 Intake & Output 03/30/24 03/31/24 03/31/24 18:59 06:59 18:59 Intake Total 1265 88 Output Total 1140 500 Balance 125 -412 Weight 111.1 kg Intake: IV 105 Sodium Chloride 3%( 105 Hypertonic) 500 ml @ 35 mls/hr IV .[id number] ONE Rx #:[id number] Oral 1160 88 Output: Drainage 500 Right Abdomen 500 Urine 440 500 Other 200 Other: Voiding Method Toilet Toilet - Labs CBC & Chem 7: 03/31/24 06:23 03/31/24 06:23 Labs: Abnormal Lab Results - Last 24 Hours (Table) 03/30/24 03/30/24 03/30/24 Range/Units 09:47 11:18 14:52 WBC (3.8-10.6) k/uL RBC (3.80-5.40) m/uL Hgb (11.4-16.0) gm/dL Hct (34.0-46.0) % MCV (80.0-100.0) fL RDW (11.5-15.5) % Plt Count (150-450) k/uL Sodium 126 L 125 L (137-145) mmol/L Carbon Dioxide (22-30) mmol/L BUN (7-17) mg/dL Calcium (8.4-10.2) mg/dL Urine Appearance Turbid H (Clear) Urine Protein 1+ H (Negative) Ur Leukocyte Esterase Large H (Negative) Urine RBC 10 H (0-5) /hpf Urine WBC 87 H (0-5) /hpf Ur Squamous Epith Cells 32 H (0-4) /hpf Urine Bacteria Few H (None) /hpf Urine Mucus Many H (None) /hpf 03/31/24 03/31/24 Range/Units 06:23 06:23 WBC 10.8 H (3.8-10.6) k/uL RBC 2.92 L (3.80-5.40) m/uL Hgb 9.6 L (11.4-16.0) gm/dL Hct 30.6 L (34.0-46.0) % MCV 104.9 H (80.0-100.0) fL RDW 18.0 H (11.5-15.5) % Plt Count 103 L (150-450) k/uL Sodium 125 L (137-145) mmol/L Carbon Dioxide 19 L (22-30) mmol/L BUN 19 H (7-17) mg/dL Calcium 8.2 L (8.4-10.2) mg/dL Urine Appearance (Clear) Urine Protein (Negative) Ur Leukocyte Esterase (Negative) Urine RBC (0-5) /hpf Urine WBC (0-5) /hpf Ur Squamous Epith Cells (0-4) /hpf Urine Bacteria (None) /hpf Urine Mucus (None) /hpf Assessment and Plan Plan: Assessment: 1. Hyponatremia. Initially hypovolemic. Still having leakage of ascitic fluid. Status post Aldactone and IV Lasix with drop in urine sodium level to 116. Status post 3% saline. Sodium level 125 from this morning. TSH normal. Urine sodium less than 20. Urine osmolality 755. Cortisol level 10. 2. History of alcohol abuse. 3. History of liver cirrhosis. 4. Hypomagnesemia from diuresis and GI losses. Replaced. Better. 5. Status post laparoscopic cholecystectomy March 21, 2024. 6. Nongap metabolic acidosis from GI losses. On oral bicarb. Better. Plan: Lasix 40 mg IV once today. Increase dose of Aldactone to 50 mg twice daily. Repeat sodium level this afternoon. Encouraged oral intake. Maintain fluid restriction. Continue to monitor sodium levels closely.
--- NOTE | 2024-03-31 11:35 | P.PN ---
Subjective Progress Note Date: 03/31/24 Principal diagnosis: Hyponatremia. Patient is a 44-year-old white female with past medical story significant for COPD, alcoholism, liver cirrhosis, ascites with previous paracentesis, esophageal varices, gastric ulcer, and previous GI bleed. Last drink was reportedly 1 month ago. Of note, patient did have a recent esophagogastroduodenoscopy on 02/19/2024 she was found to have a 5 mm antral ulcer with no active bleeding, small distal esophageal varices and mild to moderate gastritis. She did have a HIDA scan on 02/23/2024. she was brought in for a laparoscopic cholecystectomy, which was reportedly done on March,. No perioperative complications reported. Postoperatively, the patient was recovering on the medical surgical unit. She is tolerating her diet. She was noted to have copious serous output from her SALVADOR drain. In fact, a total of 2.4 L has drained so far in the last 24 hours. She was also being diuresed with Lasix. Subsequently, became hyponatremic, sodium was as low as 116. Nephrology recommended starting 3% hypertonic saline, which required transfer the patient to the intensive care unit for monitoring. Patient is currently sitting up in bed, on room air, in no acute distress. No signs of alcohol withdrawal. Lasix has been stopped. She continues to have significant amount of serous drainage from a prior drain site, however, her SALVADOR drain has been removed. She has abdominal ascites. No cognitive symptoms. No confusion/AMS, headache, seizures. Hypertonic saline is currently infusing at 25 mL/h. Current sodium is 119, with a goal of 120 mmol/L. Nephrology is managing. Remaining labs include a CBC with a WBC count 17.2, hemoglobin 10, hematocrit 31, platelets 133. BMP: Sodium 119, potassium 4.2, chloride 96, serum bicarb 16, BUN 15, creatinine 0.79, glucose 103. Most recent LFTs unremarkable. Total bili 1.7. Ammonia 37. Has remained afebrile. Heart rhythm appears sinus tachycardia on bedside monitor with a heart rate of 112 beats per minutes, blood pressure stable at 103/53 mmHg. Hemodynamics are stable. Progress note dated March 29, 2024. 44-year-old female with a significant past medical history as noted above. The patient is seen in the intensive care unit, room 262. She remains on room air. She is receiving 3% saline as per nephrology, at 35 cc an hour. Today's sodium was 122. Clinically she is very stable. Current laboratory data includes a white count 11.9, hemoglobin 9.6, hematocrit 31.2, and a platelet count of 118,000. Sodium 122, potassium 4.5, chlorides 102, CO2 16, BUN 18, creatinine 0.71. TSH is 1.80. No significant pathology is noted on abdominal ultrasound. Progress note dated March 30, 2024. 44-year-old female seen in room 262. The patient continues on room air. She is getting 3% saline at 35 cc an hour. Her sodium today was 124. The patient appears to be doing relatively well. She still has significant drainage, from the incision, on the abdomen. White count was 10.7, hemoglobin 9.3, hematocrit 30, platelet count 108,000. Sodium 126, potassium 4.6, chlorides 105, CO2 19, BUN 20, creatinine 0.71. Glucose is 105. Calcium is 7.7. Albumin is 2.0. Amm onia level is 60. Progress note dated March 31, 2024. 44-year-old female seen again in room 262. Currently, she is on room air. She is not receiving any IV fluids. Over the last few days, she has been on 3% saline. Today's sodium is 125. Labs include a white count 10.8, hemoglobin 9.6, hematocrit 30.6, and a platelet count of 103,000. Sodium 125, potassium 4.7, chlorides 102, CO2 19, BUN 19, and creatinine 0.86. Objective - Vital Signs Vital signs: Vital Signs Temp 97.9 F 03/31/24 08:00 Pulse 111 H 03/31/24 11:00 Resp 14 03/31/24 11:00 BP 98/63 03/31/24 11:00 Pulse Ox 96 03/31/24 10:00 FiO2 Intake & Output 03/30/24 03/31/24 03/31/24 18:59 06:59 18:59 Intake Total 1265 88 360 Output Total 1140 500 975 Balance 125 412 -615 Weight 111.1 kg Intake: IV 105 Sodium Chloride 3%( 105 Hypertonic) 500 ml @ 35 mls/hr IV .[id number] ONE Rx #:[id number] Oral 1160 88 360 Output: Drainage 500 Right Abdomen 500 Urine 440 500 800 Other 200 175 Other: Voiding Method Toilet Toilet - Exam No acute distress, oriented 3. The patient is currently on room air. HEENT examination is grossly unremarkable. Mucous membranes are moist. No oral lesions. Neck supple. Full range of motion. No adenopathy thyromegaly or neck vein distention. Cardiovascular examination reveals regular rhythm rate. S1-S2 normal. No S3 or S4. No discernible murmur noted. Soft systolic murmur is noted. Lungs reveal clear breath sounds. Breath sounds are equal bilaterally. No adventitious lung sounds including wheezes rhonchi or crackles. Abdomen soft bowel sounds are heard. No masses or tenderness. Extremities are intact. No cyanosis clubbing or edema. Skin is without rash or lesion. Neurologic examination is brief but nonfocal. - Labs CBC & Chem 7: 03/31/24 06:23 03/31/24 06:23 Labs: Abnormal Lab Results - Last 24 Hours (Table) 03/30/24 03/30/24 03/31/24 Range/Units 11:18 14:52 06:23 WBC (3.8-10.6) k/uL RBC (3.80-5.40) m/uL Hgb (11.4-16.0) gm/dL Hct (34.0-46.0) % MCV (80.0-100.0) fL RDW (11.5-15.5) % Plt Count (150-450) k/uL Sodium 125 L 125 L (137-145) mmol/L Carbon Dioxide 19 L (22-30) mmol/L BUN 19 H (7-17) mg/dL Calcium 8.2 L (8.4-10.2) mg/dL Urine Appearance Turbid H (Clear) Urine Protein 1+ H (Negative) Ur Leukocyte Esterase Large H (Negative) Urine RBC 10 H (0-5) /hpf Urine WBC 87 H (0-5) /hpf Ur Squamous Epith Cells 32 H (0-4) /hpf Urine Bacteria Few H (None) /hpf Urine Mucus Many H (None) /hpf 03/31/24 Range/Units 06:23 WBC 10.8 H (3.8-10.6) k/uL RBC 2.92 L (3.80-5.40) m/uL Hgb 9.6 L (11.4-16.0) gm/dL Hct 30.6 L (34.0-46.0) % MCV 104.9 H (80.0-100.0) fL RDW 18.0 H (11.5-15.5) % Plt Count 103 L (150-450) k/uL Sodium (137-145) mmol/L Carbon Dioxide (22-30) mmol/L BUN (7-17) mg/dL Calcium (8.4-10.2) mg/dL Urine Appearance (Clear) Urine Protein (Negative) Ur Leukocyte Esterase (Negative) Urine RBC (0-5) /hpf Urine WBC (0-5) /hpf Ur Squamous Epith Cells (0-4) /hpf Urine Bacteria (None) /hpf Urine Mucus (None) /hpf Assessment and Plan Assessment: Hyponatremia, improved. S/P operative day #10, following a laparoscopic cholecystectomy. Non-anion gap metabolic acidosis. Sinus tachycardia. Macrocytic anemia. Alcoholic liver disease and abdominal ascites. History of GI bleed status post esophagogastroduodenoscopy on 02/19/2024. History of esophageal varices. History of mild to moderate gastritis and 5 mm antral gastric ulcer . History of alcoholism, last drink reportedly 1 month ago. Chronic obstructive pulmonary disease, stable. Chronic ongoing tobacco dependence. History of bipolar disorder. Plan: Plan dated March 29, 2024. The patient is seen in the intensive care unit. The patient is on 3% saline at 35 cc an hour. Today's sodium was 122. Clinically, the patient is stable. No respiratory issues to speak of. Labs, x-rays, medications are reviewed. We yumiko l continue to follow the patient, and make recommendations along the way. Prognosis is certainly guarded. The patient will continue on the proton pump inhibitor. Nephrology is managing the patient's 3% saline infusion. Plan dated March 30, 2024. The patient is seen in the intensive care unit, room 262. She is sitting in the chair next to the hospital bed. She is on room air. The patient is getting 3% saline at 35 cc an hour. Today sodium was initially 124. Repeat was 126. Labs, x-rays, and all medications are reviewed. The patient's overall prognosis remains guarded. We will continue to follow make recommendations along the way. Plan dated March 31, 2024. The patient appears to be doing better today. She is no longer on 3% saline. Sodium was 125. The patient is not requiring any supplemental oxygen. Her hemodynamics are stable. The patient could be transferred out of the intensive care unit, but as long she does not require 3% saline. She has been followed by nephrology. Additional recommendations and suggestions are forthcoming. Time with Patient: Less than 30
--- NOTE | 2024-03-31 16:45 | P.PN ---
Subjective Progress Note Date: 03/31/24 CHIEF COMPLAINT: Cholecystitis HISTORY OF PRESENT ILLNESS: Patient is status post laparoscopic cholecystectomy on March 21, 2024. Patient had sutures placed at old SALVADOR drain site. patient continues to have ascites leak from SALVADOR drain site. Had 100 mL output of ascites fluid. Her pain is controlled. She's tolerating diet. She is having bowel movements. afebrile.WBC 10.8 Hgb 9.6 platelets 103 sodium [address] Corrigan PHYSICAL EXAM: VITAL SIGNS: Reviewed. GENERAL: Well-developed in no acute distress. ABDOMEN: Soft. Ecchymosis right flank and into the back. Patient does have some mild bruising around the incision site of the umbilicus. No further ascites fluid drainage from the umbilicus. Other incision sites clean dry and intact. Sutures over SALVADOR drain site with persistent ascites fluid noted NEUROLOGIC: Alert and oriented. Cranial nerves II through XII grossly intact. ASSESSMENT: 1. Cholecystitis 2. Ascites fluid leaking from SALVADOR drain site due to chronic liver cirrhosis from ETOH use 3. Hyponatremia PLAN: -continue to monitor old SALVADOR drain site -Hyponatremia management per nephrology -Continue Regular, low fat diet Physician Programming Coordinator note has been reviewed by physician. Signing provider agrees with the documented findings, assessment, and plan of care. Objective - Vital Signs Vital signs: Vital Signs Temp 98 F 03/31/24 12:00 Pulse 110 H 03/31/24 16:05 Resp 14 03/31/24 14:00 BP 83/55 03/31/24 14:00 Pulse Ox 96 03/31/24 10:00 FiO2 Intake & Output 03/30/24 03/31/24 03/31/24 18:59 06:59 18:59 Intake Total 1265 88 780 Output Total 1484 598 5631 Balance 125 412 -695 Weight 111.1 kg Intake: IV 105 Sodium Chloride 3%( 105 Hypertonic) 500 ml @ 35 mls/hr IV .[id number] ONE Rx #:[id number] Oral 1160 88 780 Output: Drainage 500 Right Abdomen 500 Urine 073 432 2074 Other 200 375 Other: Voiding Method Toilet Toilet - Labs CBC & Chem 7: 03/31/24 06:23 03/31/24 15:05 Labs: Abnormal Lab Results - Last 24 Hours (Table) 03/31/24 03/31/24 03/31/24 Range/Units 06:23 06:23 15:05 WBC 10.8 H (3.8-10.6) k/uL RBC 2.92 L (3.80-5.40) m/uL Hgb 9.6 L (11.4-16.0) gm/dL Hct 30.6 L (34.0-46.0) % MCV 104.9 H (80.0-100.0) fL RDW 18.0 H (11.5-15.5) % Plt Count 103 L (150-450) k/uL Sodium 125 L 124 L (137-145) mmol/L Carbon Dioxide 19 L (22-30) mmol/L BUN 19 H (7-17) mg/dL Calcium 8.2 L (8.4-10.2) mg/dL
--- NOTE | 2024-03-31 20:36 | PN ---
PROGRESS NOTE DATE OF SERVICE: 03/30/2024 She has cirrhosis, status post laparoscopic cholecystectomy. She had hyponatremia, has been in ICU for 2-3 days with sodiums. Without the 3% sodium, her sodium is decreasing down to 125 from 126. Liver enzymes were normal. Calcium is 8.2. She has large leukocyte esterase, possibly UTI. She was started on IV antibiotics. Status post cholecystectomy with cirrhosis. A stitch was placed in the right SALVADOR drainage area. Wound dressing shows no further drainage. Treat for UTI. Continue on Xifaxan for liver hepatic encephalopathy prevention. Prognosis guarded. Continue current treatment with IV antibiotics. MMODL / IJN: [id number] /
[2024-04-01 04:02] LABS: African American GFR (CKD) 88 (>60 ml/min/1.73 sqM); Anion Gap 5 mmol/L; Blood Urea Nitrogen 19 mg/dL (7-17); Carbon Dioxide 18 mmol/L (22-30); Chloride 99 mmol/L (98-107); Glucose 98 mg/dL (74-99); Non-African American GFR(CKD) 76 (>60 ml/min/1.73 sqM); Potassium 4.5 mmol/L (3.5-5.1); Sodium 122 mmol/L (137-145)
[2024-04-01] MEDS: SODIUM CHLORIDE 3%(HYPERTONIC) 500 ML IV ONE ×2 (05:31→20:40)
[2024-04-01] MEDS: SODIUM CHLORIDE 0.9% 500 ML 500 ML IV ONE (09:51)
--- NOTE | 2024-04-01 10:04 | P.PN ---
Subjective Patient is seen in follow-up for hyponatremia. Sodium level 122 this morning. She is now back on 3% saline. Oral intake fair. No vomiting or diarrhea. Continues to have leakage of ascitic fluid. Vital signs are stable. General: No acute distress. HEENT: Head exam is unremarkable. LUNGS: No audible rhonchi or wheezes. HEART: Rate and Rhythm are regular. ABDOMEN: Nontender. EXTREMITITES: No edema. Objective - Vital Signs Vital signs: Vital Signs Temp 98.2 F 04/01/24 08:00 Pulse 112 H 04/01/24 09:00 Resp 11 L 04/01/24 09:00 BP 119/41 04/01/24 09:00 Pulse Ox 95 04/01/24 09:00 FiO2 Intake & Output 03/31/24 04/01/24 04/01/24 18:59 06:59 18:59 Intake Total 940 703 432 Output Total 1975 650 475 Balance -1035 53 -43 Intake: IV 70 Sodium Chloride 3%( 70 Hypertonic) 500 ml @ 35 mls/hr IV .[id number] ONE Rx #:[id number] Intake, IV Titration 105 Amount Sodium Chloride 3%( 105 Hypertonic) 500 ml @ 35 mls/hr IV .[id number] ONE Rx #:[id number] Oral 940 598 362 Output: Urine 1400 600 300 Other 575 50 175 Other: Voiding Method Toilet Toilet - Labs CBC & Chem 7: 03/31/24 06:23 04/01/24 07:26 Labs: Abnormal Lab Results - Last 24 Hours (Table) 03/31/24 04/01/24 04/01/24 Range/Units 15:05 03:18 07:26 Sodium 124 L 122 L 122 L (137-145) mmol/L Carbon Dioxide 18 L (22-30) mmol/L BUN 19 H (7-17) mg/dL Calcium 8.0 L (8.4-10.2) mg/dL Microbiology - Last 24 Hours (Table) 03/30/24 11:18 Urine Culture - Preliminary Urine,Voided Gram Neg Bacilli Assessment and Plan Plan: Assessment: 1. Hyponatremia. Initially hypovolemic. Still having leakage of ascitic fluid although abdominal ultrasound showed no evidence of free fluid. Status post Aldactone and IV Lasix with drop in sodium level. Now back on 3% saline. Sodium level 122 this morning. TSH normal. Urine sodium less than 20. Urine osmolality 755. Cortisol level 10. 2. History of alcohol abuse. 3. History of liver cirrhosis. 4. Hypomagnesemia from diuresis and GI losses. Replaced. Better. 5. Status post laparoscopic cholecystectomy March 21, 2024. 6. [place]ongap metabolic acidosis from GI losses. On oral bicarb. Plan: Sodium level worsened with Aldactone and Lasix. Maintain 3% saline for now. 500 cc bolus of 0.9 normal saline now. Encouraged oral intake. Maintain fluid restriction. Continue to monitor sodium levels closely. Check chest x-ray.
--- NOTE | 2024-04-01 10:57 | XR ---
EXAMINATION TYPE: XR chest 1V portable DATE OF EXAM: 04/01/2024 10:36 AM CLINICAL INDICATION: Female, 44 years old with history of sob; COMPARISON: None TECHNIQUE: XR chest 1V portable Frontal view of the chest. FINDINGS: Lungs/Pleura: Some haziness over the left lung base possibly due to summation artifact. There is no e vidence of pleural effusion, focal consolidation, or pneumothorax. Pulmonary vascularity: Unremarkable. Heart/mediastinum: Cardiomediastinal silhouette is unremarkable. Musculoskeletal: No acute osseous pathology. IMPRESSION: Hazy opacities in left lung base correlate for pneumonia versus summation artifact.
--- NOTE | 2024-04-01 10:58 | P.PN ---
Subjective Progress Note Date: 04/01/24 Patient remained stable. She still has approximately 850 cc of ascites draining from her right upper quadrant incision. The medical and nephrology service are try to manage her ascites. On exam vital signs appear stable. Abdomen is soft. Incision sites are clean dry intact. Status post laparoscopic assisted. Patient has alcoholic cirrhosis with chronic ascites. Patient will be medically managed. Objective - Vital Signs Vital signs: Vital Signs Temp 98.2 F 04/01/24 08:00 Pulse 110 H 04/01/24 10:00 Resp 27 H 04/01/24 10:00 BP 101/64 04/01/24 10:00 Pulse Ox 97 04/01/24 10:00 FiO2 Intake & Output 03/31/24 04/01/24 04/01/24 18:59 06:59 18:59 Intake Total 940 703 967 Output Total 1975 650 475 Balance -1035 53 492 Intake: IV 605 Sodium Chloride 0.9% 500 500 ml 500 ml @ 999 mls/hr IV .[id number] ONE Rx#:[id number] Sodium Chloride 3%( 105 Hypertonic) 500 ml @ 35 mls/hr IV .[id number] ONE Rx #:[id number] Intake, IV Titration 105 Amount Sodium Chloride 3%( 105 Hypertonic) 500 ml @ 35 mls/hr IV .[id number] ONE Rx #:[id number] Oral 940 598 362 Output: Urine 1400 600 300 Other 575 50 175 Other: Voiding Method Toilet Toilet - Labs CBC & Chem 7: 03/31/24 06:23 04/01/24 07:26 Labs: Abnormal Lab Results - Last 24 Hours (Table) 03/31/24 04/01/24 04/01/24 Range/Units 15:05 03:18 07:26 Sodium 124 L 122 L 122 L (137-145) mmol/L Carbon Dioxide 18 L (22-30) mmol/L BUN 19 H (7-17) mg/dL Calcium 8.0 L (8.4-10.2) mg/dL Microbiology - Last 24 Hours (Table) 03/30/24 11:18 Urine Culture - Preliminary Urine,Voided Gram Neg Bacilli
--- NOTE | 2024-04-01 12:03 | P.PN ---
Subjective Progress Note Date: 04/01/24 Principal diagnosis: Hyponatremia. Patient is a 44-year-old white female with past medical story significant for COPD, alcoholism, liver cirrhosis, ascites with previous paracentesis, esophageal varices, gastric ulcer, and previous GI bleed. Last drink was reportedly 1 month ago. Of note, patient did have a recent esophagogastroduodenoscopy on 02/19/2024 she was found to have a 5 mm antral ulcer with no active bleeding, small distal esophageal varices and mild to moderate gastritis. She did have a HIDA scan on 02/23/2024. she was brought in for a laparoscopic cholecystectomy, which was reportedly done on March,. No perioperative complications reported. Postoperatively, the patient was recovering on the medical surgical unit. She is tolerating her diet. She was noted to have copious serous output from her SALVADOR drain. In fact, a total of 2.4 L has drained so far in the last 24 hours. She was also being diuresed with Lasix. Subsequently, became hyponatremic, sodium was as low as 116. Nephrology recommended starting 3% hypertonic saline, which required transfer the patient to the intensive care unit for monitoring. Patient is currently sitting up in bed, on room air, in no acute distress. No signs of alcohol withdrawal. Lasix has been stopped. She continues to have significant amount of serous drainage from a prior drain site, however, her SALVADOR drain has been removed. She has abdominal ascites. No cognitive symptoms. No confusion/AMS, headache, seizures. Hypertonic saline is currently infusing at 25 mL/h. Current sodium is 119, with a goal of 120 mmol/L. Nephrology is managing. Remaining labs include a CBC with a WBC count 17.2, hemoglobin 10, hematocrit 31, platelets 133. BMP: Sodium 119, potassium 4.2, chloride 96, serum bicarb 16, BUN 15, creatinine 0.79, glucose 103. Most recent LFTs unremarkable. Total bili 1.7. Ammonia 37. Has remained afebrile. Heart rhythm appears sinus tachycardia on bedside monitor with a heart rate of 112 beats per minutes, blood pressure stable at 103/53 mmHg. Hemodynamics are stable. Progress note dated March 29, 2024. 44-year-old female with a significant past medical history as noted above. The patient is seen in the intensive care unit, room 262. She remains on room air. She is receiving 3% saline as per nephrology, at 35 cc an hour. Today's sodium was 122. Clinically she is very stable. Current laboratory data includes a white count 11.9, hemoglobin 9.6, hematocrit 31.2, and a platelet count of 118,000. Sodium 122, potassium 4.5, chlorides 102, CO2 16, BUN 18, creatinine 0.71. TSH is 1.80. No significant pathology is noted on abdominal ultrasound. Progress note dated March 30, 2024. 44-year-old female seen in room 262. The patient continues on room air. She is getting 3% saline at 35 cc an hour. Her sodium today was 124. The patient appears to be doing relatively well. She still has significant drainage, from the incision, on the abdomen. White count was 10.7, hemoglobin 9.3, hematocrit 30, platelet count 108,000. Sodium 126, potassium 4.6, chlorides 105, CO2 19, BUN 20, creatinine 0.71. Glucose is 105. Calcium is 7.7. Albumin is 2.0. Amm onia level is 60. Progress note dated March 31, 2024. 44-year-old female seen again in room 262. Currently, she is on room air. She is not receiving any IV fluids. Over the last few days, she has been on 3% saline. Today's sodium is 125. Labs include a white count 10.8, hemoglobin 9.6, hematocrit 30.6, and a platelet count of 103,000. Sodium 125, potassium 4.7, chlorides 102, CO2 19, BUN 19, and creatinine 0.86. Progress note dated April 01, 2024. 44-year-old female seen in the intensive care unit, room 262. Unfortunately, the patient sodium has dropped, down to 122, and she was started back on 3% saline at 35 cc an hour. She appears to have a resistant hyponatremia. Other than that, the patient is doing well. She is not requiring any supplemental oxygen. She had an uneventful night. Current labs include a sodium now down to 120, the rest of the electrolyte profile from this morning shows a potassium 4.5, chloride 99, CO2 18, BUN 19, creatinine 0.93. Calcium is 8.0. Objective - Vital Signs Vital signs: Vital Signs Temp 98.2 F 04/01/24 08:00 Pulse 111 H 04/01/24 11:33 Resp 15 04/01/24 11:00 BP 109/72 04/01/24 11:00 Pulse Ox 93 L 04/01/24 11:00 FiO2 Intake & Output 03/31/24 04/01/24 04/01/24 18:59 06:59 18:59 Intake Total 805 328 9133 Output Total 1975 650 475 Balance -1035 53 527 Intake: IV 640 Sodium Chloride 0.9% 500 500 ml 500 ml @ 999 mls/hr IV .Q31M ONE Rx#:[id number] Sodium Chloride 3%( 140 Hypertonic) 500 ml @ 35 mls/hr IV .[id number] ONE Rx #:[id number] Intake, IV Titration 105 Amount Sodium Chloride 3%( 105 Hypertonic) 500 ml @ 35 mls/hr IV .[id number] ONE Rx #:[id number] Oral 940 598 362 Output: Urine 1400 600 300 Other 575 50 175 Other: Voiding Method Toilet Toilet Toilet - Exam No acute distress, oriented 3. The patient is currently on room air. HEENT examination is grossly unremarkable. Mucous membranes are moist. No oral lesions. Neck supple. Full range of motion. No adenopathy thyromegaly or neck vein distention. Cardiovascular examination reveals regular rhythm rate. S1-S2 normal. No S3 or S4. No discernible murmur noted. Soft systolic murmur is noted. Lungs reveal clear breath sounds. Breath sounds are equal bilaterally. No a dventitious lung sounds including wheezes rhonchi or crackles. Abdomen soft bowel sounds are heard. No masses or tenderness. Extremities are intact. No cyanosis clubbing or edema. Skin is without rash or lesion. Neurologic examination is brief but nonfocal. - Labs CBC & Chem 7: 03/31/24 06:23 04/01/24 11:10 Labs: Abnormal Lab Results - Last 24 Hours (Table) 03/31/24 04/01/24 04/01/24 Range/Units 15:05 03:18 07:26 Sodium 124 L 122 L 122 L (137-145) mmol/L Carbon Dioxide 18 L (22-30) mmol/L BUN 19 H (7-17) mg/dL Calcium 8.0 L (8.4-10.2) mg/dL 04/01/24 Range/Units 11:10 Sodium 120 L (137-145) mmol/L Carbon Dioxide (22-30) mmol/L BUN (7-17) mg/dL Calcium (8.4-10.2) mg/dL Microbiology - Last 24 Hours (Table) 03/30/24 11:18 Urine Culture - Preliminary Urine,Voided Gram Neg Bacilli Assessment and Plan Assessment: 3% saline resistant hyponatremia. S/P operative day #11, following a laparoscopic cholecystectomy. Non-anion gap metabolic acidosis. Sinus tachycardia. Macrocytic anemia. Alcoholic liver disease and abdominal ascites. History of GI bleed status post esophagogastroduodenoscopy on 02/19/2024. History of esophageal varices. History of mild to moderate gastritis and 5 mm antral gastric ulcer . History of alcoholism, last drink reportedly 1 month ago. Chronic obstructive pulmonary disease, stable. Chronic ongoing tobacco dependence. History of bipolar disorder. Plan: Plan dated March 29, 2024. The patient is seen in the intensive care unit. The patient is on 3% saline at 35 cc an hour. Today's sodium was 122. Clinically, the patient is stable. No respiratory issues to speak of. Labs, x-rays, medications are reviewed. We will continue to follow the patient, and make recommendations along the way. Prognosis is certainly guarded. The patient will continue on the proton pump inhibitor. Nephrology is managing the patient's 3% saline infusion. Plan dated March 30, 2024. The patient is seen in the intensive care unit, room 262. She is sitting in the chair next to the hospital bed. She is on room air. The patient is getting 3% saline at 35 cc an hour. Today sodium was initially 124. Repeat was 126. Labs, x-rays, and all medications are reviewed. The patient's overall prognosis remains guarded. We will continue to follow make recommendations along the way. Plan dated March 31, 2024. The patient appears to be doing better today. She is no longer on 3% saline. Sodium was 125. The patient is not requiring any supplemental oxygen. Her hemodynamics are stable. The patient could be transferred out of the intensive care unit, but as long she does not require 3% saline. She has been followed by nephrology. Additional recommendations and suggestions are forthcoming. Plan dated April 01, 2024. The patient continues in the intensive care unit, primarily because she has ongoing and worsening hyponatremia. Actually, her repeat sodium was 120, down from 122. She continues on 3% saline at 35 cc an hour. Labs, x-rays, and medications are all reviewed. Her respiratory status is stable. We will continue to follow her, while she remains in the intensive care unit. No additional recommendations are made at this time. She is is being managed by nephrology. Time with Patient: Less than 30
--- NOTE | 2024-04-01 22:51 | PN ---
PROGRESS NOTE SUBJECTIVE: Sodium went to as low as 120, now is 125, calcium is , GFR is 76. OBJECTIVE: CARDIOVASCULAR: S1 and S2. LUNGS: Transmitted upper sounds. GI: Distended. VITAL SIGNS: O2 is 96% on room air, blood pressure 105/51, respiratory rate 16 to 18. Sugars 100s. Chest x-ray shows possible pneumonia versus defect, left lower quadrant. alcoholic cirrhosis, chronic ascites, medically managed. She has had hypotension, hyponatremia, which is trying to be addressed. Dr. Chun has seen her also. No vomiting, diarrhea, leakage of ascitic fluid in the . Sodium level is worse with Aldactone, Lasix. Maintain 3% saline. Normal saline boluses given. Oral intake. Fluid restrictions. Possible sodium chloride will be given in tablets. PROGNOSIS: Guarded. MMODL / IJN: [id number] /
[2024-04-02 06:46] LABS: Anisocytosis Slight; Basophils % (A) 0 %; Eosinophils # (A) 0.2 k/uL (0-0.7); Eosinophils % (A) 3 %; HCT 30.1 % (34.0-46.0); HGB 9.3 gm/dL (11.4-16.0); Hypochromasia Marked; Lymphocytes # (A) 1.2 k/uL (1.0-4.8); Lymphocytes % (A) 18 %; MCH 31.9 pg (25.0-35.0); MCHC 30.7 g/dL (31.0-37.0); Macrocytosis Moderate; Mean Platelet Volume 9.5; Monocytes # (A) 0.6 k/uL (0-1.0); Monocytes % (A) 8 %; Neutrophils # (A) 4.5 k/uL (1.3-7.7); Neutrophils % (A) 67 %; Poikilocytosis Slight; RDW 17.7 % (11.5-15.5); WBC 6.7 k/uL (3.8-10.6)
[2024-04-02 07:01] LABS: ALT 26 U/L (4-34); AST 57 U/L (14-36); African American GFR (CKD) >90 (>60 ml/min/1.73 sqM); Albumin 2.2 g/dL (3.5-5.0); Alkaline Phosphatase 97 U/L (38-126); Anion Gap 3 mmol/L; Blood Urea Nitrogen 17 mg/dL (7-17); Carbon Dioxide 16 mmol/L (22-30); Chloride 106 mmol/L (98-107); Glucose 100 mg/dL (74-99); Non-African American GFR(CKD) 85 (>60 ml/min/1.73 sqM); Potassium 4.3 mmol/L (3.5-5.1); Sodium 125 mmol/L (137-145); Total Bilirubin 1.8 mg/dL (0.2-1.3); Total Protein 4.5 g/dL (6.3-8.2)
[2024-04-02 07:16] LABS: Platelet Count 83 k/uL (150-450)
--- NOTE | 2024-04-02 08:45 | P.PN ---
Subjective Progress Note Date: 04/02/24 Patient remained stable in the ICU. She is having her hyponatremia treated. She still having ascitic drainage from her SALVADOR drain site. On exam vital signs appear stable. Abdomen is soft. Incision sites are clean dry intact. Patient may benefit from paracentesis. We will await the medical doctors input. Objective - Vital Signs Vital signs: Vital Signs Temp 99.1 F 04/02/24 04:00 Pulse 100 04/02/24 08:25 Resp 12 04/02/24 07:00 BP 110/63 04/02/24 07:00 Pulse Ox 96 04/02/24 07:00 FiO2 Intake & Output 04/01/24 04/02/24 04/02/24 18:59 06:59 18:59 Intake Total 1637 680 Output Total 1425 1350 Balance 212 -670 Weight 113.8 kg Intake: IV 915 520 Sodium Chloride 0.9% 500 500 ml 500 ml @ 999 mls/hr IV .Q31M ONE Rx#:[id number] Sodium Chloride 3%( 415 520 Hypertonic) 500 ml @ 35 mls/hr IV .[id number] ONE Rx #:[id number] Oral 722 160 Output: Drainage 650 Right Abdomen 650 Urine 750 700 Other 675 Other: Voiding Method Toilet Toilet - Labs CBC & Chem 7: 04/02/24 06:04 04/02/24 06:04 Labs: Abnormal Lab Results - Last 24 Hours (Table) 04/01/24 04/01/24 04/01/24 Range/Units 11:10 13:10 13:10 RBC (3.80-5.40) m/uL Hgb (11.4-16.0) gm/dL Hct (34.0-46.0) % MCV (80.0-100.0) fL MCHC (31.0-37.0) g/dL RDW (11.5-15.5) % Plt Count (150-450) k/uL Sodium 120 L (137-145) mmol/L Carbon Dioxide (22-30) mmol/L Glucose (74-99) mg/dL Osmolality (275-295) mOsm/kg Calcium (8.4-10.2) mg/dL Total Bilirubin (0.2-1.3) mg/dL AST (14-36) U/L Total Protein (6.3-8.2) g/dL Albumin (3.5-5.0) g/dL Urine Osmolality 335 L (400-1100) mOsm/kg Ur Random Sodium <20 L (40-220) mmol/L 04/01/24 04/01/24 04/01/24 Range/Units 13:51 15:11 17:16 RBC (3.80-5.40) m/uL Hgb (11.4-16.0) gm/dL Hct (34.0-46.0) % MCV (80.0-100.0) fL MCHC (31.0-37.0) g/dL RDW (11.5-15.5) % Plt Count (150-450) k/uL Sodium 125 L 124 L (137-145) mmol/L Carbon Dioxide (22-30) mmol/L Glucose (74-99) mg/dL Osmolality 270 L (275-295) mOsm/kg Calcium (8.4-10.2) mg/dL Total Bilirubin (0.2-1.3) mg/dL AST (14-36) U/L Total Protein (6.3-8.2) g/dL Albumin (3.5-5.0) g/dL Urine Osmolality (400-1100) mOsm/kg Ur Random Sodium (40-220) mmol/L 04/01/24 04/01/24 04/02/24 Range/Units 19:56 23:56 02:56 RBC (3.80-5.40) m/uL Hgb (11.4-16.0) gm/dL Hct (34.0-46.0) % MCV (80.0-100.0) fL MCHC (31.0-37.0) g/dL RDW (11.5-15.5) % Plt Count (150-450) k/uL Sodium 127 L 125 L 121 L (137-145) mmol/L Carbon Dioxide (22-30) mmol/L Glucose (74-99) mg/dL Osmolality (275-295) mOsm/kg Calcium (8.4-10.2) mg/dL Total Bilirubin (0.2-1.3) mg/dL AST (14-36) U/L Total Protein (6.3-8.2) g/dL Albumin (3.5-5.0) g/dL Urine Osmolality (400-1100) mOsm/kg Ur Random Sodium (40-220) mmol/L 04/02/24 04/02/24 Range/Units 06:04 06:04 RBC 2.90 L (3.80-5.40) m/uL Hgb 9.3 L (11.4-16.0) gm/dL Hct 30.1 L (34.0-46.0) % MCV 104.0 H (80.0-100.0) fL MCHC 30.7 L (31.0-37.0) g/dL RDW 17.7 H (11.5-15.5) % Plt Count 83 L (150-450) k/uL Sodium 125 L (137-145) mmol/L Carbon Dioxide 16 L (22-30) mmol/L Glucose 100 H (74-99) mg/dL Osmolality (275-295) mOsm/kg Calcium 8.0 L (8.4-10.2) mg/dL Total Bilirubin 1.8 H (0.2-1.3) mg/dL AST 57 H (14-36) U/L Total Protein 4.5 L (6.3-8.2) g/dL Albumin 2.2 L (3.5-5.0) g/dL Urine Osmolality (400-1100) mOsm/kg Ur Random Sodium (40-220) mmol/L Microbiology - Last 24 Hours (Table) 03/30/24 11:18 Urine Culture - Final Urine,Voided Hafnia alvei Enterococcus faecium
--- NOTE | 2024-04-02 10:07 | P.PN ---
Subjective Progress Note Date: 04/02/24 Principal diagnosis: Hyponatremia. Patient is a 44-year-old white female with past medical story significant for COPD, alcoholism, liver cirrhosis, ascites with previous paracentesis, esophageal varices, gastric ulcer, and previous GI bleed. Last drink was reportedly 1 month ago. Of note, patient did have a recent esophagogastroduodenoscopy on 02/19/2024 she was found to have a 5 mm antral ulcer with no active bleeding, small distal esophageal varices and mild to moderate gastritis. She did have a HIDA scan on 02/23/2024. she was brought in for a laparoscopic cholecystectomy, which was reportedly done on March,. No perioperative complications reported. Postoperatively, the patient was recovering on the medical surgical unit. She is tolerating her diet. She was noted to have copious serous output from her SALVADOR drain. In fact, a total of 2.4 L has drained so far in the last 24 hours. She was also being diuresed with Lasix. Subsequently, became hyponatremic, sodium was as low as 116. Nephrology recommended starting 3% hypertonic saline, which required transfer the patient to the intensive care unit for monitoring. Patient is currently sitting up in bed, on room air, in no acute distress. No signs of alcohol withdrawal. Lasix has been stopped. She continues to have significant amount of serous drainage from a prior drain site, however, her SALVADOR drain has been removed. She has abdominal ascites. No cognitive symptoms. No confusion/AMS, headache, seizures. Hypertonic saline is currently infusing at 25 mL/h. Current sodium is 119, with a goal of 120 mmol/L. Nephrology is managing. Remaining labs include a CBC with a WBC count 17.2, hemoglobin 10, hematocrit 31, platelets 133. BMP: Sodium 119, potassium 4.2, chloride 96, serum bicarb 16, BUN 15, creatinine 0.79, glucose 103. Most recent LFTs unremarkable. Total bili 1.7. Ammonia 37. Has remained afebrile. Heart rhythm appears sinus tachycardia on bedside monitor with a heart rate of 112 beats per minutes, blood pressure stable at 103/53 mmHg. Hemodynamics are stable. Progress note dated March 29, 2024. 44-year-old female with a significant past medical history as noted above. The patient is seen in the intensive care unit, room 262. She remains on room air. She is receiving 3% saline as per nephrology, at 35 cc an hour. Today's sodium was 122. Clinically she is very stable. Current laboratory data includes a white count 11.9, hemoglobin 9.6, hematocrit 31.2, and a platelet count of 118,000. Sodium 122, potassium 4.5, chlorides 102, CO2 16, BUN 18, creatinine 0.71. TSH is 1.80. No significant pathology is noted on abdominal ultrasound. Progress note dated March 30, 2024. 44-year-old female seen in room 262. The patient continues on room air. She is getting 3% saline at 35 cc an hour. Her sodium today was 124. The patient appears to be doing relatively well. She still has significant drainage, from the incision, on the abdomen. White count was 10.7, hemoglobin 9.3, hematocrit 30, platelet count 108,000. Sodium 126, potassium 4.6, chlorides 105, CO2 19, BUN 20, creatinine 0.71. Glucose is 105. Calcium is 7.7. Albumin is 2.0. Amm onia level is 60. Progress note dated March 31, 2024. 44-year-old female seen again in room 262. Currently, she is on room air. She is not receiving any IV fluids. Over the last few days, she has been on 3% saline. Today's sodium is 125. Labs include a white count 10.8, hemoglobin 9.6, hematocrit 30.6, and a platelet count of 103,000. Sodium 125, potassium 4.7, chlorides 102, CO2 19, BUN 19, and creatinine 0.86. Progress note dated April 01, 2024. 44-year-old female seen in the intensive care unit, room 262. Unfortunately, the patient sodium has dropped, down to 122, and she was started back on 3% saline at 35 cc an hour. She appears to have a resistant hyponatremia. Other than that, the patient is doing well. She is not requiring any supplemental oxygen. She had an uneventful night. Current labs include a sodium now down to 120, the rest of the electrolyte profile from this morning shows a potassium 4.5, chloride 99, CO2 18, BUN 19, creatinine 0.93. Calcium is 8.0. Progress note dated April 02, 2024. 44-year-old female seen in the intensive care unit, for hyponatremia. The patient is seen today in room 262. The patient is on room air. The patient is getting 3% saline at 40 cc an hour. This morning sodium level is 125. Additional laboratory data includes a white count 6.7, hemoglobin 9.3, hematocrit 30.1, and platelet count 83,000. Sodium 125, potassium 4.3, chlorides 106, CO2 16, BUN 17, creatinine 0.85. Glucose is 100. Albumin is 2.2. The urine specimen from March 30 shows evidence of Enterococcus faecium and Hafnia alvei. The patient is currently not on any antibiotics. I am sure the primary will likely consult infectious diseases. Objective - Vital Signs Vital signs: Vital Signs Temp 98.4 F 04/02/24 08:00 Pulse 110 H 04/02/24 09:00 Resp 16 04/02/24 09:00 BP 111/62 04/02/24 09:00 Pulse Ox 98 04/02/24 09:00 FiO2 Intake & Output 04/01/24 04/02/24 04/02/24 18:59 06:59 18:59 Intake Total 1637 680 349 Output Total 1425 1350 625 Balance 212 670 -276 Weight 113.8 kg Intake: IV 915 520 80 Sodium Chloride 0.9% 500 500 ml 500 ml @ 999 mls/hr IV .[id number] ONE Rx#:[id number] Sodium Chloride 3%( 415 520 80 Hypertonic) 500 ml @ 35 mls/hr IV .[id number] ONE Rx #:[id number] Oral 722 160 269 Output: Drainage 650 425 Right Abdomen 650 425 Urine 750 700 200 Other 675 Other: Voiding Method Toilet Toilet Toilet # Bowel Movements 1 - Exam No acute distress, oriented 3. The patient is currently on room air. Saturations are 98%. HEENT examination is grossly unremarkable. Mucous membranes are moist. No oral lesions. Neck supple. Full range of motion. No adenopathy thyromegaly or neck vein distention. Cardiovascular examination reveals regular rhythm rate. S1-S2 normal. No S3 or S4. No discernible murmur noted. Soft systolic murmur is noted. Heart rate is 92 bpm. Lungs reveal clear breath sounds. Breath sounds are equal bilaterally. No adventitious lung sounds including wheezes rhonchi or crackles. Abdomen soft bowel sounds are heard. No masses or tenderness. Extremities are intact. No cyanosis clubbing or edema. Skin is without rash or lesion. Neurologic examination is brief but nonfocal. - Labs CBC & Chem 7: 04/02/24 06:04 04/02/24 06:04 Labs: Abnormal Lab Results - Last 24 Hours (Table) 04/01/24 04/01/24 04/01/24 Range/Units 11:10 13:10 13:10 RBC (3.80-5.40) m/uL Hgb (11.4-16.0) gm/dL Hct (34.0-46.0) % MCV (80.0-100.0) fL MCHC (31.0-37.0) g/dL RDW (11.5-15.5) % Plt Count (150-450) k/uL Sodium 120 L (137-145) mmol/L Carbon Dioxide (22-30) mmol/L Glucose (74-99) mg/dL Osmolality (275-295) mOsm/kg Calcium (8.4-10.2) mg/dL Total Bilirubin (0.2-1.3) mg/dL AST (14-36) U/L Total Protein (6.3-8.2) g/dL Albumin (3.5-5.0) g/dL Urine Osmolality 335 L (400-1100) mOsm/kg Ur Random Sodium <20 L (40-220) mmol/L 04/01/24 04/01/24 04/01/24 Range/Units 13:51 15:11 17:16 RBC (3.80-5.40) m/uL Hgb (11.4-16.0) gm/dL Hct (34.0-46.0) % MCV (80.0-100.0) fL MCHC (31.0-37.0) g/dL RDW (11.5-15.5) % Plt Count (150-450) k/uL Sodium 125 L 124 L (137-145) mmol/L Carbon Dioxide (22-30) mmol/L Glucose (74-99) mg/dL Osmolality 270 L (275-295) mOsm/kg Calcium (8.4-10.2) mg/dL Total Bilirubin (0.2-1.3) mg/dL AST (14-36) U/L Total Protein (6.3-8.2) g/dL Albumin (3.5-5.0) g/dL Urine Osmolality (400-1100) mOsm/kg Ur Random Sodium (40-220) mmol/L 04/01/24 04/01/24 04/02/24 Range/Units 19:56 23:56 02:56 RBC (3.80-5.40) m/uL Hgb (11.4-16.0) gm/dL Hct (34.0-46.0) % MCV (80.0-100.0) fL MCHC (31.0-37.0) g/dL RDW (11.5-15.5) % Plt Count (150-450) k/uL Sodium 127 L 125 L 121 L (137-145) mmol/L Carbon Dioxide (22-30) mmol/L Glucose (74-99) mg/dL Osmolality (275-295) mOsm/kg Calcium (8.4-10.2) mg/dL Total Bilirubin (0.2-1.3) mg/dL AST (14-36) U/L Total Protein (6.3-8.2) g/dL Albumin (3.5-5.0) g/dL Urine Osmolality (400-1100) mOsm/kg Ur Random Sodium (40-220) mmol/L 04/02/24 04/02/24 Range/Units 06:04 06:04 RBC 2.90 L (3.80-5.40) m/uL Hgb 9.3 L (11.4-16.0) gm/dL Hct 30.1 L (34.0-46.0) % MCV 104.0 H (80.0-100.0) fL MCHC 30.7 L (31.0-37.0) g/dL RDW 17.7 H (11.5-15.5) % Plt Count 83 L (150-450) k/uL Sodium 125 L (137-145) mmol/L Carbon Dioxide 16 L (22-30) mmol/L Glucose 100 H (74-99) mg/dL Osmolality (275-295) mOsm/kg Calcium 8.0 L (8.4-10.2) mg/dL Total Bilirubin 1.8 H (0.2-1.3) mg/dL AST 57 H (14-36) U/L Total Protein 4.5 L (6.3-8.2) g/dL Albumin 2.2 L (3.5-5.0) g/dL Urine Osmolality (400-1100) mOsm/kg Ur Random Sodium (40-220) mmol/L Microbiology - Last 24 Hours (Table) 03/30/24 11:18 Urine Culture - Final Urine,Voided Hafnia alvei Enterococcus faecium Assessment and Plan Assessment: 3% saline resistant hyponatremia. S/P operative day #12, following a laparoscopic cholecystectomy. Non-anion gap metabolic acidosis. Sinus tachycardia. Macrocytic anemia. Alcoholic liver disease and abdominal ascites. History of GI bleed status post esophagogastroduodenoscopy on 02/19/2024. History of esophageal varices. History of mild to moderate gastritis and 5 mm antral gastric ulcer . History of alcoholism, last drink reportedly 1 month ago. Chronic obstructive pulmonary disease, stable. Chronic ongoing tobacco dependence. History of bipolar disorder. Plan: Plan dated March 29, 2024. The patient is seen in the intensive care unit. The patient is on 3% saline at 35 cc an hour. Today's sodium was 122. Clinically, the patient is stable. No respiratory issues to speak of. Labs, x-rays, medications are reviewed. We will continue to follow the patient, and make recommendations along the way. Prognosis is certainly guarded. The patient will continue on the proton pump inhibitor. Nephrology is managing the patient's 3% saline infusion. Plan dated March 30, 2024. The patient is seen in the intensive care unit, room 262. She is sitting in the chair next to the hospital bed. She is on room air. The patient is getting 3% saline at 35 cc an hour. Today sodium was initially 124. Repeat was 126. Labs, x-rays, and all medications are reviewed. The patient's overall prognosis remains guarded. We will continue to follow make recommendations along the way. Plan dated March 31, 2024. The patient appears to be doing better today. She is no longer on 3% saline. S odium was 125. The patient is not requiring any supplemental oxygen. Her hemodynamics are stable. The patient could be transferred out of the intensive care unit, but as long she does not require 3% saline. She has been followed by nephrology. Additional recommendations and suggestions are forthcoming. Plan dated April 01, 2024. The patient continues in the intensive care unit, primarily because she has ongoing and worsening hyponatremia. Actually, her repeat sodium was 120, down from 122. She continues on 3% saline at 35 cc an hour. Labs, x-rays, and medications are all reviewed. Her respiratory status is stable. We will continue to follow her, while she remains in the intensive care unit. No additional recommendations are made at this time. She is is being managed by nephrology. Plan dated April 02, 2024. The patient is seen today in room 262. She is on room air. Her respiratory status remained stable. She denies any shortness of breath, cough, wheezing, chest tightness, or phlegm production. She continues on saline, 3%, and 40 cc an hour. Her today's sodium is 125. Labs, x-rays, and medications are reviewed. We will continue to follow make recommendations along the way. Prognosis is guarded. Urine was positive for both Hafnia and Enterococcus. Time with Patient: Less than 30
--- NOTE | 2024-04-02 10:56 | PN ---
PROGRESS NOTE SUBJECTIVE: A 44-year-old white female with hyponatremia, ascites, cirrhosis, status post cholecystectomy. No leg swelling. She has been taken off all diuretics. She is on 3% sodium IV solution. Her sodium is 121 to 125, now 128, much improved. Possibly go home in the next 2 days of ascitic fluid drainage decreases and sodium improves. OBJECTIVE: VITAL SIGNS: Stable, afebrile. Blood pressure 111/62, O2 92 on room air, pulse rate 110, respiratory rate 16. CARDIOVASCULAR: S1, S2. LUNGS: Transmitted upper sounds. GI: Soft. HEMATOLOGIC: Negative for Homans. PSYCH: Fair mood and affect. ASSESSMENT: Prognosis guarded. Continue current treatment. Monitor for sodium and possible discharge home in next the couple days of ascitic fluid drainage down. Drainage is decreased if now, we will work her up for paracentesis to be done on Thursday depending on how much cirrhosis on abdominal ultrasound, we will check if it continues to get worse. MMODL / IJN: [id number] /
--- NOTE | 2024-04-02 11:55 | P.PN ---
Subjective Patient is seen for follow-up for hyponatremia. Currently maintained on 3% saline. Sodium was 128 this morning. 3% saline is currently on hold. Continues to have drainage of ascitic fluid. No significant complaints today. Objective - Vital Signs Vital signs: Vital Signs Temp 98.4 F 04/02/24 08:00 Pulse 108 H 04/02/24 11:00 Resp 20 04/02/24 11:00 BP 103/53 04/02/24 11:00 Pulse Ox 98 04/02/24 09:00 FiO2 Intake & Output 04/01/24 04/02/24 04/02/24 18:59 06:59 18:59 Intake Total 1637 680 389 Output Total 1425 1350 625 Balance 212 -670 -236 Weight 113.8 kg Intake: IV 915 520 120 Sodium Chloride 0.9% 500 500 ml 500 ml @ 999 mls/hr IV .Q31M ONE Rx#:[id number] Sodium Chloride 3%( 415 520 120 Hypertonic) 500 ml @ 35 mls/hr IV .[id number] ONE Rx #:[id number] Oral 722 160 269 Output: Drainage 650 425 Right Abdomen 650 425 Urine 750 700 200 Other 675 Other: Voiding Method Toilet Toilet Toilet # Bowel Movements 1 - Exam Patient is awake, comfortable, no acute distress. Examination of the heart S1 and S2 Examination of the lungs bilateral breath sounds are heard Abdomen is soft distended with drainage of ascitic fluid noted. Examination lower extremity shows no significant edema [employer] exam grossly intact - Labs CBC & Chem 7: 04/02/24 06:04 04/02/24 09:41 Labs: Abnormal Lab Results - Last 24 Hours (Table) 04/01/24 04/01/24 04/01/24 Range/Units 13:10 13:10 13:51 RBC (3.80-5.40) m/uL Hgb (11.4-16.0) gm/dL Hct (34.0-46.0) % MCV (80.0-100.0) fL MCHC (31.0-37.0) g/dL RDW (11.5-15.5) % Plt Count (150-450) k/uL Sodium (137-145) mmol/L Carbon Dioxide (22-30) mmol/L Glucose (74-99) mg/dL Osmolality 270 L (275-295) mOsm/kg Calcium (8.4-10.2) mg/dL Total Bilirubin (0.2-1.3) mg/dL AST (14-36) U/L Total Protein (6.3-8.2) g/dL Albumin (3.5-5.0) g/dL Urine Osmolality 335 L (400-1100) mOsm/kg Ur Random Sodium <20 L (40-220) mmol/L 04/01/24 04/01/24 04/01/24 Range/Units 15:11 17:16 19:56 RBC (3.80-5.40) m/uL Hgb (11.4-16.0) gm/dL Hct (34.0-46.0) % MCV (80.0-100.0) fL MCHC (31.0-37.0) g/dL RDW (11.5-15.5) % Plt Count (150-450) k/uL Sodium 125 L 124 L 127 L (137-145) mmol/L Carbon Dioxide (22-30) mmol/L Glucose (74-99) mg/dL Osmolality (275-295) mOsm/kg Calcium (8.4-10.2) mg/dL Total Bilirubin (0.2-1.3) mg/dL AST (14-36) U/L Total Protein (6.3-8.2) g/dL Albumin (3.5-5.0) g/dL Urine Osmolality (400-1100) mOsm/kg Ur Random Sodium (40-220) mmol/L 04/01/24 04/02/24 04/02/24 Range/Units 23:56 02:56 06:04 RBC 2.90 L (3.80-5.40) m/uL Hgb 9.3 L (11.4-16.0) gm/dL Hct 30.1 L (34.0-46.0) % MCV 104.0 H (80.0-100.0) fL MCHC 30.7 L (31.0-37.0) g/dL RDW 17.7 H (11.5-15.5) % Plt Count 83 L (150-450) k/uL Sodium 125 L 121 L (137-145) mmol/L Carbon Dioxide (22-30) mmol/L Glucose (74-99) mg/dL Osmolality (275-295) mOsm/kg Calcium (8.4-10.2) mg/dL Total Bilirubin (0.2-1.3) mg/dL AST (14-36) U/L Total Protein (6.3-8.2) g/dL Albumin (3.5-5.0) g/dL Urine Osmolality (400-1100) mOsm/kg Ur Random Sodium (40-220) mmol/L 04/02/24 04/02/24 Range/Units 06:04 09:41 RBC (3.80-5.40) m/uL Hgb (11.4-16.0) gm/dL Hct (34.0-46.0) % MCV (80.0-100.0) fL MCHC (31.0-37.0) g/dL RDW (11.5-15.5) % Plt Count (150-450) k/uL Sodium 125 L 128 L (137-145) mmol/L Carbon Dioxide 16 L (22-30) mmol/L Glucose 100 H (74-99) mg/dL Osmolality (275-295) mOsm/kg Calcium 8.0 L (8.4-10.2) mg/dL Total Bilirubin 1.8 H (0.2-1.3) mg/dL AST 57 H (14-36) U/L Total Protein 4.5 L (6.3-8.2) g/dL Albumin 2.2 L (3.5-5.0) g/dL Urine Osmolality (400-1100) mOsm/kg Ur Random Sodium (40-220) mmol/L Microbiology - Last 24 Hours (Table) 03/30/24 11:18 Urine Culture - Final Urine,Voided Hafnia alvei Enterococcus faecium Assessment and Plan Assessment: 1. Hyponatremia. Initially hypovolemic. Still having leakage of ascitic fluid although abdominal ultrasound showed no evidence of free fluid. Status post Aldactone and IV Lasix with drop in sodium level. Restarted normal saline as sodium had dropped to 122. Sodium was 128 today and 3% saline currently on hold. TSH normal. Urine sodium less than 20. Urine osmolality 755. Cortisol level 10. 2. History of alcohol abuse. 3. History of liver cirrhosis. 4. Hypomagnesemia from diuresis and GI losses. Replaced. Better. 5. Status post laparoscopic cholecystectomy March 21, 2024. 6. [place] metabolic acidosis from GI losses. On oral bicarb. Plan: Hold 3% saline. Repeat sodium this afternoon. Maintain fluid restriction.
--- NOTE | 2024-04-02 15:27 | CA ---
Transthoracic Echo Report Name: Joanna Bagley Age: 44 Gender: F : 1980 Exam Date: 04/01/2024 08:17 Exam Location: [facility] Echo Ht (in): 68 Wt (lb): 244 Ordering Physician: Luis Alfredo Shields MD Attending/Referring Phys: Knot Bumper Nery Abad RDCS Procedure CPT: Indications: tachycardia, murmur, sob with activity. Cardiac Hx: Technical Quality: Fair Contrast 1: Total Dose (mL): Contrast 2: Total Dose (mL): MEASUREMENTS (Male / Female) Normal Values 2D ECHO LV Diastolic Diameter PLAX 5.2 cm 4.2 - 5.9 / 3.9 - 5.3 cm LV Systolic Diameter PLAX 3.2 cm IVS Diastolic Thickness 1.5 cm 0.6 - 1.0 / 0.6 - 0.9 cm LVPW Diastolic Thickness 1.5 cm 0.6 - 1.0 / 0.6 - 0.9 cm LV Relative Wall Thickness 0.6 RV Internal Dim ED PLAX 2.0 cm LA Systolic Diameter LX 4.7 cm 3.0 - 4.0 / 2.7 - 3.8 cm LV Diastolic Volume MOD BP 79.4 cm??? 67 - 155 / 56 - 104 cm??? LV Systolic Volume MOD BP 17.6 cm??? 22 - 58 / 19 - 49 cm??? LV Ejection Fraction MOD BP 77.8 % >= 55 % LV Cardiac Index MOD BP 2628.7 cm???/min???m??? LV Diastolic Volume MOD 4C 83.3 cm??? LV Systolic Volume MOD 4C 22.0 cm??? LV Ejection Fraction MOD 4C 73.6 % LV Cardiac Index MOD 4C 2608.3 cm???/min???m??? LV Diastolic Length 4C 7.6 cm LV Systolic Length 4C 6.0 cm LV Diastolic Volume MOD 2C 68.9 cm??? LV Systolic Volume MOD 2C 13.9 cm??? LV Ejection Fraction MOD 2C 79.9 % LV Cardiac Index MOD 2C 2339.9 cm???/min???m??? LV Diastolic Length 2C 6.9 cm LV Systolic Length 2C 6.2 cm LA Volume 67.1 cm??? 18 - 58 / 22 - 52 cm??? LA Volume Index 28.5 cm???/m??? 16 - 28 cm???/m??? M-MODE Aortic Root Diameter MM 2.7 cm LA Systolic Diameter MM 3.6 cm LA Ao Ratio MM 1.3 AV Cusp Separation MM 1.8 cm DOPPLER MV Area PHT 3.7 cm??? Mitral E Point Velocity 97.2 cm/s Mitral A Point Velocity 144.9 cm/s Mitral E to A Ratio 0.7 MV Deceleration Time 204.0 ms TR Peak Velocity 332.5 cm/s TR Peak Gradient 44.2 mmHg Right Ventricular Systolic Press 47.1 mmHg FINDINGS Left Ventricle Left ventricular ejection fraction is estimated at 70-75%. Moderately increased septal wall thickness. Moderately increased posterior wall thickness. No obvious regional wall motion abnormalities. Hyperdynamic left ventricular systolic function. Severe LVOTO, Max PG 134 mmHg and Mean PG 74 mmHg. Right Ventricle Normal right ventricular size and function. Moderate pulmonary hypertension. Right Atrium Mild right atrial dilatation. Left Atrium Moderately increased left atrial diameter. Moderately increased left atrial volume. Mildly increased left atrial area. Mitral Valve Mitral valve thickened. Mild mitral annular calcification. Moderate mitral regurgitation. Aortic Valve Aortic valve not well visualized. No aortic stenosis. No aortic regurgitation. Tricuspid Valve Tricuspid valve not well visualized. Mild tricuspid regurgitation. Pulmonic Valve Structurally normal pulmonic valve. Mild pulmonic regurgitation. No pulmonic stenosis. Pericardium No pericardial or pleural effusion. Aorta Normal size aortic root and proximal ascending aorta. CONCLUSIONS Left ventricular ejection fraction 70% Moderately increased left ventricular wall thickness Severe elevated velocities through the LVOT most likely consistent with LVOT obstruction. May however be some component of mitral regurgitation jet. Consider cardiac MRI if clinically indiated. Likely exacerbated by tachycardia with heart rate 108 bpm Moderate mitral regurgitation Mild tricuspid regurgitation RVSP 47 Previewed by: Dr. Carter Davenport DO (Electronically Signed) Final Date: 02 April 2024 15:26
[2024-04-03 05:46] LABS: Anisocytosis Slight; HCT 30.5 % (34.0-46.0); HGB 9.3 gm/dL (11.4-16.0); Hypochromasia Marked; MCH 31.6 pg (25.0-35.0); MCHC 30.6 g/dL (31.0-37.0); MCV 103.2 fL (80.0-100.0); Macrocytosis Moderate; Mean Platelet Volume 9.5; Platelet Count 103 k/uL (150-450); Poikilocytosis Slight; RBC 2.95 m/uL (3.80-5.40); RDW 17.1 % (11.5-15.5); WBC 7.3 k/uL (3.8-10.6)
[2024-04-03 05:55] LABS: ALT 26 U/L (4-34); AST 51 U/L (14-36); African American GFR (CKD) 78 (>60 ml/min/1.73 sqM); Albumin 2.1 g/dL (3.5-5.0); Alkaline Phosphatase 99 U/L (38-126); Anion Gap 2 mmol/L; Blood Urea Nitrogen 17 mg/dL (7-17); Calcium 7.9 mg/dL (8.4-10.2); Carbon Dioxide 20 mmol/L (22-30); Chloride 102 mmol/L (98-107); Glucose 108 mg/dL (74-99); Non-African American GFR(CKD) 68 (>60 ml/min/1.73 sqM); Potassium 4.4 mmol/L (3.5-5.1); Sodium 124 mmol/L (137-145); Total Bilirubin 1.1 mg/dL (0.2-1.3); Total Protein 4.4 g/dL (6.3-8.2)
[2024-04-03] MEDS: SODIUM CHLORIDE TAB 1 GM TAB PO STA ×2 (07:00→15:07)
[2024-04-03] MEDS: TOLVAPTAN 15 MG TABLET PO ONE (07:00)
--- NOTE | 2024-04-03 08:30 | P.PN ---
Subjective Progress Note Date: 04/03/24 The patient remained stable in the ICU. She is currently on 3% sodium for hyponatremia. Patient is at increased ascites drainage through her SALVADOR tract. On exam vital signs appear stable. Abdomen soft. History of alcohol cirrhosis with ascites. Patient's ascites needs to be medically managed. She may benefit from a paracentesis. Objective - Vital Signs Vital signs: Vital Signs Temp 99.1 F 04/03/24 02:00 Pulse 104 H 04/03/24 08:08 Resp 17 04/03/24 02:00 BP 91/49 04/03/24 02:00 Pulse Ox 98 04/03/24 02:00 FiO2 Intake & Output 04/02/24 04/03/24 04/03/24 18:59 06:59 18:59 Intake Total 669 680 Output Total 2350 2250 Balance -1681 -1570 Intake: IV 120 Sodium Chloride 3%( 120 Hypertonic) 500 ml @ 35 mls/hr IV .[id number] ONE Rx #:[id number] Oral 549 680 Output: Drainage 1950 1850 Right Abdomen 1950 1850 Urine 400 400 Other: Voiding Method Toilet Toilet # Bowel Movements 1 - Labs CBC & Chem 7: 04/03/24 05:28 04/03/24 05:28 Labs: Abnormal Lab Results - Last 24 Hours (Table) 04/02/24 04/02/24 04/02/24 Range/Units 09:41 14:05 18:57 RBC (3.80-5.40) m/uL Hgb (11.4-16.0) gm/dL Hct (34.0-46.0) % MCV (80.0-100.0) fL MCHC (31.0-37.0) g/dL RDW (11.5-15.5) % Plt Count (150-450) k/uL Sodium 128 L 128 L 133 L (137-145) mmol/L Carbon Dioxide (22-30) mmol/L Glucose (74-99) mg/dL Calcium (8.4-10.2) mg/dL AST (14-36) U/L Total Protein (6.3-8.2) g/dL Albumin (3.5-5.0) g/dL 04/03/24 04/03/24 Range/Units 05:28 05:28 RBC 2.95 L (3.80-5.40) m/uL Hgb 9.3 L (11.4-16.0) gm/dL Hct 30.5 L (34.0-46.0) % MCV 103.2 H (80.0-100.0) fL MCHC 30.6 L (31.0-37.0) g/dL RDW 17.1 H (11.5-15.5) % Plt Count 103 L (150-450) k/uL Sodium 124 L (137-145) mmol/L Carbon Dioxide 20 L (22-30) mmol/L Glucose 108 H (74-99) mg/dL Calcium 7.9 L (8.4-10.2) mg/dL AST 51 H (14-36) U/L Total Protein 4.4 L (6.3-8.2) g/dL Albumin 2.1 L (3.5-5.0) g/dL
--- NOTE | 2024-04-03 09:16 | P.PN ---
Subjective Progress Note Date: 04/03/24 Principal diagnosis: Hyponatremia. Patient is a 44-year-old white female with past medical story significant for COPD, alcoholism, liver cirrhosis, ascites with previous paracentesis, esophageal varices, gastric ulcer, and previous GI bleed. Last drink was reportedly 1 month ago. Of note, patient did have a recent esophagogastroduodenoscopy on 02/19/2024 she was found to have a 5 mm antral ulcer with no active bleeding, small distal esophageal varices and mild to moderate gastritis. She did have a HIDA scan on 02/23/2024. she was brought in for a laparoscopic cholecystectomy, which was reportedly done on March,. No perioperative complications reported. Postoperatively, the patient was recovering on the medical surgical unit. She is tolerating her diet. She was noted to have copious serous output from her SALVADOR drain. In fact, a total of 2.4 L has drained so far in the last 24 hours. She was also being diuresed with Lasix. Subsequently, became hyponatremic, sodium was as low as 116. Nephrology recommended starting 3% hypertonic saline, which required transfer the patient to the intensive care unit for monitoring. Patient is currently sitting up in bed, on room air, in no acute distress. No signs of alcohol withdrawal. Lasix has been stopped. She continues to have significant amount of serous drainage from a prior drain site, however, her SALVADOR drain has been removed. She has abdominal ascites. No cognitive symptoms. No confusion/AMS, headache, seizures. Hypertonic saline is currently infusing at 25 mL/h. Current sodium is 119, with a goal of 120 mmol/L. Nephrology is managing. Remaining labs include a CBC with a WBC count 17.2, hemoglobin 10, hematocrit 31, platelets 133. BMP: Sodium 119, potassium 4.2, chloride 96, serum bicarb 16, BUN 15, creatinine 0.79, glucose 103. Most recent LFTs unremarkable. Total bili 1.7. Ammonia 37. Has remained afebrile. Heart rhythm appears sinus tachycardia on bedside monitor with a heart rate of 112 beats per minutes, blood pressure stable at 103/53 mmHg. Hemodynamics are stable. Progress note dated March 29, 2024. 44-year-old female with a significant past medical history as noted above. The patient is seen in the intensive care unit, room 262. She remains on room air. She is receiving 3% saline as per nephrology, at 35 cc an hour. Today's sodium was 122. Clinically she is very stable. Current laboratory data includes a white count 11.9, hemoglobin 9.6, hematocrit 31.2, and a platelet count of 118,000. Sodium 122, potassium 4.5, chlorides 102, CO2 16, BUN 18, creatinine 0.71. TSH is 1.80. No significant pathology is noted on abdominal ultrasound. Progress note dated March 30, 2024. 44-year-old female seen in room 262. The patient continues on room air. She is getting 3% saline at 35 cc an hour. Her sodium today was 124. The patient appears to be doing relatively well. She still has significant drainage, from the incision, on the abdomen. White count was 10.7, hemoglobin 9.3, hematocrit 30, platelet count 108,000. Sodium 126, potassium 4.6, chlorides 105, CO2 19, BUN 20, creatinine 0.71. Glucose is 105. Calcium is 7.7. Albumin is 2.0. Amm onia level is 60. Progress note dated March 31, 2024. 44-year-old female seen again in room 262. Currently, she is on room air. She is not receiving any IV fluids. Over the last few days, she has been on 3% saline. Today's sodium is 125. Labs include a white count 10.8, hemoglobin 9.6, hematocrit 30.6, and a platelet count of 103,000. Sodium 125, potassium 4.7, chlorides 102, CO2 19, BUN 19, and creatinine 0.86. Progress note dated April 01, 2024. 44-year-old female seen in the intensive care unit, room 262. Unfortunately, the patient sodium has dropped, down to 122, and she was started back on 3% saline at 35 cc an hour. She appears to have a resistant hyponatremia. Other than that, the patient is doing well. She is not requiring any supplemental oxygen. She had an uneventful night. Current labs include a sodium now down to 120, the rest of the electrolyte profile from this morning shows a potassium 4.5, chloride 99, CO2 18, BUN 19, creatinine 0.93. Calcium is 8.0. Progress note dated April 02, 2024. 44-year-old female seen in the intensive care unit, for hyponatremia. The patient is seen today in room 262. The patient is on room air. The patient is getting 3% saline at 40 cc an hour. This morning sodium level is 125. Additional laboratory data includes a white count 6.7, hemoglobin 9.3, hematocrit 30.1, and platelet count 83,000. Sodium 125, potassium 4.3, chlorides 106, CO2 16, BUN 17, creatinine 0.85. Glucose is 100. Albumin is 2.2. The urine specimen from March 30 shows evidence of Enterococcus faecium and Hafnia alvei. The patient is currently not on any antibiotics. I am sure the primary will likely consult infectious diseases. Progress note dated April 03, 2024. 44-year-old female seen in the intensive care unit. The patient is on room air. Sodium this morning was 124. It had been up to 133. The patient is not receiving any IV fluids. Laboratory data includes a white count 7.3, hemoglobin 9.3, hematocrit 30.5, and a platelet count of 103,000. Sodium 124, potassium 4.4, chlorides 102, CO2 20, BUN 17, creatinine 1.02. The patient is very clinically stable. The patient is able to move out of the intensive care unit. Objective - Vital Signs Vital signs: Vital Signs Temp 98.2 F 04/03/24 08:00 Pulse 104 H 04/03/24 08:08 Resp 16 04/03/24 08:00 BP 112/59 04/03/24 08:00 Pulse Ox 99 04/03/24 08:00 FiO2 Intake & Output 04/02/24 04/03/24 04/03/24 18:59 06:59 18:59 Intake Total 669 680 Output Total 2350 2250 Balance -1681 -1570 Intake: IV 120 Sodium Chloride 3%( 120 Hypertonic) 500 ml @ 35 mls/hr IV .[id number] ONE Rx #:[id number] Oral 549 680 Output: Drainage 19490 Right Abdomen 19490 Urine 400 400 Other: Voiding Method Toilet Toilet Toilet # Bowel Movements 1 - Exam No acute distress, oriented 3. The patient is currently on room air. Saturations are 99 %. HEENT examination is grossly unremarkable. Mucous membranes are moist. No oral lesions. Neck supple. Full range of motion. No adenopathy thyromegaly or neck vein distention. Cardiovascular examination reveals regular rhythm rate. S1-S2 normal. No S3 or S4. No discernible murmur noted. Soft systolic murmur is noted. Heart rate is 89 bpm. Lungs reveal clear breath sounds. Breath sounds are equal bilaterally. No adventitious lung sounds including wheezes rhonchi or crackles. Abdomen soft bowel sounds are heard. No masses or tenderness. Extremities are intact. No cyanosis clubbing or edema. Skin is without rash or lesion. Neurologic examination is brief but nonfocal. - Labs CBC & Chem 7: 04/03/24 05:28 04/03/24 05:28 Labs: Abnormal Lab Results - Last 24 Hours (Table) 04/02/24 04/02/24 04/02/24 Range/Units 09:41 14:05 18:57 RBC (3.80-5.40) m/uL Hgb (11.4-16.0) gm/dL Hct (34.0-46.0) % MCV (80.0-100.0) fL MCHC (31.0-37.0) g/dL RDW (11.5-15.5) % Plt Count (150-450) k/uL Sodium 128 L 128 L 133 L (137-145) mmol/L Carbon Dioxide (22-30) mmol/L Glucose (74-99) mg/dL Calcium (8.4-10.2) mg/dL AST (14-36) U/L Total Protein (6.3-8.2) g/dL Albumin (3.5-5.0) g/dL 04/03/24 04/03/24 Range/Units 05:28 05:28 RBC 2.95 L (3.80-5.40) m/uL Hgb 9.3 L (11.4-16.0) gm/dL Hct 30.5 L (34.0-46.0) % MCV 103.2 H (80.0-100.0) fL MCHC 30.6 L (31.0-37.0) g/dL RDW 17.1 H (11.5-15.5) % Plt Count 103 L (150-450) k/uL Sodium 124 L (137-145) mmol/L Carbon Dioxide 20 L (22-30) mmol/L Glucose 108 H (74-99) mg/dL Calcium 7.9 L (8.4-10.2) mg/dL AST 51 H (14-36) U/L Total Protein 4.4 L (6.3-8.2) g/dL Albumin 2.1 L (3.5-5.0) g/dL Assessment and Plan Assessment: 3% saline resistant hyponatremia. S/P operative day #13, following a laparoscopic cholecystectomy. Non-anion gap metabolic acidosis. Sinus tachycardia. Macrocytic anemia. Alcoholic liver disease and abdominal ascites. History of GI bleed status post esophagogastroduodenoscopy on 02/19/2024. History of esophageal varices. History of mild to moderate gastritis and 5 mm antral gastric ulcer . History of alcoholism, last drink reportedly 1 month ago. Chronic obstructive pulmonary disease, stable. Chronic ongoing tobacco dependence. History of bipolar disorder. Plan: Plan dated March 29, 2024. The patient is seen in the intensive care unit. The patient is on 3% saline at 35 cc an hour. Today's sodium was 122. Clinically, the patient is stable. No respiratory issues to speak of. Labs, x-rays, medications are reviewed. We will continue to follow the patient, and make recommendations along the way. Prognosis is certainly guarded. The patient will continue on the proton pump inhibitor. Nephrology is managing the patient's 3% saline infusion. Plan dated March 30, 2024. The patient is seen in the intensive care unit, room 262. She is sitting in the chair next to the hospital bed. She is on room air. The patient is getting 3% saline at 35 cc an hour. Today sodium was initially 124. Repeat was 126. Labs, x-rays, and all medications are reviewed. The patient's overall prognosis remains guarded. We will continue to follow make recommendations along the way. Plan dated March 31, 2024. The patient appears to be doing better today. She is no longer on 3% saline. Sodium was 125. The patient is not requiring any supplemental oxygen. Her hemodynamics are stable. The patient could be transferred out of the intensive care unit, but as long she does not require 3% saline. She has been followed by nephrology. Additional recommendations and suggestions are forthcoming. Plan dated April 01, 2024. The patient continues in the intensive care unit, primarily because she has ongoing and worsening hyponatremia. Actually, her repeat sodium was 120, down from 122. She continues on 3% saline at 35 cc an hour. Labs, x-rays, and medications are all reviewed. Her respiratory status is stable. We will continue to follow her, while she remains in the intensive care unit. No additional recommendations are made at this time. She is is being managed by nephrology. Plan dated April 02, 2024. The patient is seen today in room 262. She is on room air. Her respiratory status remained stable. She denies any shortness of breath, cough, wheezing, chest tightness, or phlegm production. She continues on saline, 3%, and 40 cc an hour. Her today's sodium is 125. Labs, x-rays, and medications are reviewed. We will continue to follow make recommendations along the way. Prognosis is guarded. Urine was positive for both Hafnia and Enterococcus. Plan dated April 03, 2024. The patient's sodium was up to 133, today is 124. Labs, x-rays, medications are reviewed. We will continue to follow make recommendations. The patient is also being followed and managed by nephrology. Clinically, the patient is very stable. She denies any shortness of breath, cough, wheezing, chest tightness, or phlegm production. Time with Patient: Less than 30
[2024-04-03 09:19] LABS: Eosinophils # (M) 0.37 k/uL (0-0.7); Lymphocytes # (M) 1.97 k/uL (1.0-4.8); Monocytes # (M) 0.29 k/uL (0-1.0); Neutrophils # (M) 4.67 k/uL (1.3-7.7); Neutrophils % (M) 64 %; Nucleated Red Blood Cells 0 /100 WBC (0-0); Total Cells Counted 100
[2024-04-03 09:21] LABS: Target Cells Present
[2024-04-03 09:22] LABS: Crenated RBC Present; Poikilocytosis (M) Present; RBC Fragments Present; Tear Drop Cells Present
--- NOTE | 2024-04-03 10:50 | P.PN ---
Subjective Patient is seen for follow-up for hyponatremia. Status post 3% saline. Serum sodium had improved to 133 last night. it has however dropped to 124 again today. Patient had significant ascitic fluid drainage last night of about 1.8 L. blood pressure 112/59. No significant complaints today. Objective - Vital Signs Vital signs: Vital Signs Temp 98.2 F 04/03/24 08:00 Pulse 104 H 04/03/24 08:08 Resp 16 04/03/24 08:00 BP 112/59 04/03/24 08:00 Pulse Ox 99 04/03/24 08:00 FiO2 Intake & Output 04/02/24 04/03/24 04/03/24 18:59 06:59 18:59 Intake Total 669 680 Output Total 2350 2250 Balance -1681 -1570 Intake: IV 120 Sodium Chloride 3%( 120 Hypertonic) 500 ml @ 35 mls/hr IV .[id number] ONE Rx #:[id number] Oral 549 680 Output: Drainage 1950 1850 Right Abdomen 1950 1850 Urine 400 400 Other: Voiding Method Toilet Toilet Toilet # Bowel Movements 1 - Exam Patient is awake, comfortable, no acute distress. Examination of the heart S1 and S2 Examination of the lungs bilateral breath sounds are heard Abdomen is soft distended with drainage of ascitic fluid noted. Examination lower extremity shows no significant edema [employer] exam grossly intact - Labs CBC & Chem 7: 04/03/24 05:28 04/03/24 05:28 Labs: Abnormal Lab Results - Last 24 Hours (Table) 04/02/24 04/02/24 04/03/24 Range/Units 14:05 18:57 05:28 RBC 2.95 L (3.80-5.40) m/uL Hgb 9.3 L (11.4-16.0) gm/dL Hct 30.5 L (34.0-46.0) % MCV 103.2 H (80.0-100.0) fL MCHC 30.6 L (31.0-37.0) g/dL RDW 17.1 H (11.5-15.5) % Plt Count 103 L (150-450) k/uL Sodium 128 L 133 L (137-145) mmol/L Carbon Dioxide (22-30) mmol/L Glucose (74-99) mg/dL Calcium (8.4-10.2) mg/dL AST (14-36) U/L Total Protein (6.3-8.2) g/dL Albumin (3.5-5.0) g/dL 04/03/24 Range/Units 05:28 RBC (3.80-5.40) m/uL Hgb (11.4-16.0) gm/dL Hct (34.0-46.0) % MCV (80.0-100.0) fL MCHC (31.0-37.0) g/dL RDW (11.5-15.5) % Plt Count (150-450) k/uL Sodium 124 L (137-145) mmol/L Carbon Dioxide 20 L (22-30) mmol/L Glucose 108 H (74-99) mg/dL Calcium 7.9 L (8.4-10.2) mg/dL AST 51 H (14-36) U/L Total Protein 4.4 L (6.3-8.2) g/dL Albumin 2.1 L (3.5-5.0) g/dL Assessment and Plan Assessment: 1. Hyponatremia associated with liver cirrhosis. Status post 3% saline as sodium had not improved with diuretics or normal saline. Sodium improved to 133 yesterday and has dropped again to 124 today. TSH normal. Urine sodium less than 20. Urine osmolality 755 and 335. Cortisol level 10, rule out adrenal insufficiency. 2. History of alcohol abuse. 3. History of liver cirrhosis. 4. Hypomagnesemia from diuresis and GI losses. Replaced. Better. 5. Status post laparoscopic cholecystectomy March 21, 2024. 6. Nongap metabolic acidosis from GI losses. On oral bicarb. Plan: continue with fluid restriction Sodium chloride 1 g 1 Samsca 15 mg 1 Cortrosyn stimulation test to rule out adrenal insufficiency.
[2024-04-03] MEDS: COSYNTROPIN 0.25 MG VIAL IVP ONE (12:05)
[2024-04-03] MEDS: NITROFURANTOIN MONOHYD/M-CRYST 100 MG CAP PO SCH (12:05)
[2024-04-03] MEDS ORDERED: VANCOMYCIN IV PER PHARMACY 1 EACH MISC MISCELLANE PRN (14:42)
[2024-04-03] MEDS: VANCOMYCIN 1,750 MG in SODIUM CHLORIDE 0.9% 500 ML 500 ML IVPB SCH (15:07)
[2024-04-03 17:42] LABS: Appearance,Urine Clear (Clear); Bilirubin,Urine Negative (Negative); Blood,Urine Negative (Negative); Color,Urine Yellow; Glucose,Urine (UA) Negative (Negative); Ketones,Urine Negative (Negative); Leukocyte Esterase,Urine Negative (Negative); Nitrite,Urine Negative (Negative); Protein,Urine Negative (Negative); Specific Gravity,Urine 1.004 (1.001-1.035); Urobilinogen,Urine <2.0 mg/dL (<2.0)
--- NOTE | 2024-04-03 17:57 | P.CONS ---
History of Present Illness - Reason for Consult Consult date: 04/03/24 Urinary tract infection Requesting physician: Luis Alfredo Shields - Chief Complaint Abdominal pain and drainage x few days - History of Present Illness Patient is a 44-year-old with a past medical history significant for female reflux cirrhosis of the liver from alcoholism has been in the hospital for almost 2 weeks in this patient who is status post laparoscopic ch olecystectomy procedure [place] and currently that information is not in the computer patient has been afebrile since 03/27/2024 except low-grade fever on 04/02/2024 patient did have a UA done on 03/30/2024 we did shows large ascites trace 87 WBC in the culture not growing Enterococcus faecium and Hafnia that has prompted this consultation, patient currently denies having any fever or chills patient mention she was having some burning of urine when the urine was taken and is not very clear if she has Arias catheter at that time or not and same information could not be extracted from the nursing staff however her urinary symptoms seem to have resolved currently complaining of mostly abdominal distention I did have some slightly drainage from one of the cholecystectomy port denies any headache or URI symptoms no chest pain shortness of breath or cough no vomiting or diarrhea. Patient did have a white count of 7.3 initially did have elevated white count 14.86 on and 2023 kidney function normal sodium has been in the lower side urine was positive as mentioned under the Review of Systems Positive point and negatives has been mentioned in the HPI, complete review of systems was performed and all other systems are negative Past Medical History Past Medical History: GERD/Reflux, Liver Disease Additional Past Medical History / Comment(s): retains fluid,anemia,cirrohis of liver non alcoholic, occ bloody stool, ulcer, bipolar History of Any Multi-Drug Resistant Organisms: None Reported Past Surgical History: EPS Additional Past Surgical History / Comment(s): has had 4 scopes, paracentesis unable to get any fluid out at the time., paracentesis Past Anesthesia/Blood Transfusion Reactions: No Reported Reaction Additional Past Anesthesia/Blood Transfusion Reaction / Comm: 3 units of blood transfused in around february 03. Past Psychological History: Anxiety, Bipolar Smoking Status: Current every day smoker Past Alcohol Use History: None Reported Additional Past Alcohol Use History / Comment(s): 1 pk/every 2 days/ 20yrs, did not drink for 10months and then started drinking again states "I stopped again a week ago." Past Drug Use History: None Reported Medications and Allergies Home Medications Medication Instructions Recorded Confirmed Type Cariprazine HCl [Vraylar] 3 mg PO HS 03/20/23 04/02/24 History Gabapentin 300 mg PO TID 03/20/23 04/02/24 History Pantoprazole [Protonix] 40 mg PO DAILY 03/20/23 04/02/24 History QUEtiapine [SEROquel] 100 tab PO HS 03/20/23 04/02/24 History Spironolactone 100 mg PO DAILY 03/20/23 04/02/24 History Budesonide-Formot 160-4.5 Mcg 2 puff INHALATION RT-BID 30 Days 02/24/24 04/02/24 Rx [Symbicort 160-4.5 Mcg Inhaler] #1 each Allergies Allergy/AdvReac Type Severity Reaction Status Date / Time Penicillins Allergy Anaphylaxis Verified 02/18/24 21:11 Physical Exam Vitals: Vital Signs Temp Pulse Pulse Resp BP BP Pulse Ox 04/03/24 11:37 96 04/03/24 11:27 96 04/03/24 08:08 104 H 04/03/24 08:00 98.2 F 105 H 16 112/59 99 04/03/24 07:58 107 H 04/03/24 02:00 99.1 F 109 H 17 91/49 98 04/02/24 20:18 104 H 04/02/24 20:10 102 H 04/02/24 20:00 99.0 F 104 H 16 113/89 98 04/02/24 16:02 108 H 04/02/24 15:40 100 04/02/24 15:00 102 H 18 103/57 98 04/02/24 14:00 114 H 21 118/97 98 04/02/24 13:00 118 H 20 122/52 04/02/24 12:20 108 H 04/02/24 12:11 102 H 04/02/24 12:00 98 F 110 H 18 107/58 98 Intake and Output 04/02/24 04/03/24 04/03/24 22:59 06:59 14:59 Intake Total 140 680 Output Total 1100 2250 Balance -960 -1570 Intake: Oral 140 680 Output: Drainage 1100 1850 Right Abdomen 1100 1850 Urine 400 Other: Voiding Method Toilet Toilet GENERAL DESCRIPTION: Middle-aged female lying in bed, no distress. No tachypnea or accessory muscle of respiration use. HEENT: Shows Pallor , no scleral icterus. Oral mucous membrane is dry. No pharyngeal erythema or thrush NECK: Trachea central, no thyromegaly. LUNGS: Unlabored breathing. Clear to auscultation anteriorly. No wheeze or crackle. HEART: S1, S2, regular rate and rhythm. No loud murmur ABDOMEN: Soft, mild distention did have some serous drainage in the drainage bag EXTREMITIES: No edema of feet. SKIN: No rash, no masses palpable. NEUROLOGICAL: The patient is awake, alert, oriented x3, mood and affect normal. Results CBC & Chem 7: 04/03/24 05:28 04/03/24 11:42 Labs: Abnormal Lab Results - Last 24 Hours (Table) 04/02/24 04/02/24 04/03/24 Range/Units 14:05 18:57 05:28 RBC 2.95 L (3.80-5.40) m/uL Hgb 9.3 L (11.4-16.0) gm/dL Hct 30.5 L (34.0-46.0) % MCV 103.2 H (80.0-100.0) fL MCHC 30.6 L (31.0-37.0) g/dL RDW 17.1 H (11.5-15.5) % Plt Count 103 L (150-450) k/uL Sodium 128 L 133 L (137-145) mmol/L Carbon Dioxide (22-30) mmol/L Glucose (74-99) mg/dL Calcium (8.4-10.2) mg/dL AST (14-36) U/L Total Protein (6.3-8.2) g/dL Albumin (3.5-5.0) g/dL 04/03/24 Range/Units 05:28 RBC (3.80-5.40) m/uL Hgb (11.4-16.0) gm/dL Hct (34.0-46.0) % MCV (80.0-100.0) fL MCHC (31.0-37.0) g/dL RDW (11.5-15.5) % Plt Count (150-450) k/uL Sodium 124 L (137-145) mmol/L Carbon Dioxide 20 L (22-30) mmol/L Glucose 108 H (74-99) mg/dL Calcium 7.9 L (8.4-10.2) mg/dL AST 51 H (14-36) U/L Total Protein 4.4 L (6.3-8.2) g/dL Albumin 2.1 L (3.5-5.0) g/dL Assessment and Plan (1) Urinary tract infection Current Visit: Yes Status: Acute Code(s): N39.0 - URINARY TRACT INFECTION, SITE NOT SPECIFIED SNOMED Code(s): 18671925 (2) Penicillin allergy Current Visit: Yes Status: Acute Code(s): Z88.0 - ALLERGY STATUS TO PENICILLIN SNOMED Code(s): 62599317 Plan: 1patient with a positive urine culture with Enterococcus faecium and this patient did have a positive UA it is not very clear that the patient did have a Arias catheter during this admission however the patient has been in the hospital for almost 2 weeks prior to initial evaluation and did have a mild elevated white count and low-grade fever and urinary symptoms question of possible urine tract infection though the patient mention some improvement her symptoms without antibiotic specific for this pathogen 2-penicillin allergy that will limit the number of antibiotic safe to use 3-we will start the patient on vancomycin pharmacy to dose and repeat a UA clean-catch that will determine further antibiotic therapy We will follow on clinical condition and cultures to further adjust medication if needed Thank you for this consultation we will follow the patient along with you Dictation was produced using [employer] dictation software. please excuse any grammatical, word or spelling errors. Time with Patient: Greater than 30
--- NOTE | 2024-04-03 20:39 | PN ---
PROGRESS NOTE SUBJECTIVE: A 44-year-old white female hyponatremia on 3% saline. Sodium was 128 yesterday. They held the saline. She remains on sodium chloride and fluid. OBJECTIVE: VITAL SIGNS: Blood pressures were low in 100s over 50s, O2 98, pulse 108, respiratory rate 20, temp 98.4. CARDIOVASCULAR: S1, S2. LUNGS: Transmitted upper sounds. GI: Soft and nontender. HEMATOLOGIC: Negative for Homans. PSYCH: Fair mood and affect. LABORATORY DATA: Hemoglobin is 9, white count is 5.7, platelets 83. Sodium 128. Hyponatremia, was hypovolemic sheath. Abdominal ultrasound showed no free fluid, no Aldactone or Lasix have been given. , alcohol abuse, alcohol cirrhosis, hypomagnesemia, status post laparoscopic cholecystectomy, cirrhosis, non-gap metabolic acidosis, maintain fluid restriction. Prognosis guarded, home soon. MMODL / IJN: [id number] /
[2024-04-03] MEDS: SODIUM CHLORIDE TAB 1 GM TAB PO ONE (21:19)
[2024-04-04 05:58] LABS: Anisocytosis Slight; Basophils % (A) 0 %; Eosinophils # (A) 0.3 k/uL (0-0.7); Eosinophils % (A) 3 %; HCT 31.6 % (34.0-46.0); HGB 9.8 gm/dL (11.4-16.0); Hypochromasia Marked; Lymphocytes % (A) 23 %; MCH 32.4 pg (25.0-35.0); MCHC 31.1 g/dL (31.0-37.0); Macrocytosis Moderate; Monocytes # (A) 0.4 k/uL (0-1.0); Monocytes % (A) 5 %; Neutrophils # (A) 5.5 k/uL (1.3-7.7); Neutrophils % (A) 65 %; Poikilocytosis Slight; RBC 3.04 m/uL (3.80-5.40); RDW 17.4 % (11.5-15.5); WBC 8.5 k/uL (3.8-10.6)
[2024-04-04 06:01] LABS: Platelet Count 89 k/uL (150-450)
[2024-04-04 06:26] LABS: African American GFR (CKD) >90 (>60 ml/min/1.73 sqM); Anion Gap 5 mmol/L; Blood Urea Nitrogen 15 mg/dL (7-17); Calcium 7.9 mg/dL (8.4-10.2); Carbon Dioxide 14 mmol/L (22-30); Chloride 105 mmol/L (98-107); Glucose 97 mg/dL (74-99); Non-African American GFR(CKD) 85 (>60 ml/min/1.73 sqM); Sodium 124 mmol/L (137-145)
[2024-04-04 06:27] LABS: Potassium 4.4 mmol/L (3.5-5.1)
[2024-04-04 06:28] LABS: Magnesium 1.7 mg/dL (1.6-2.3)
[2024-04-04] MEDS ORDERED: Magnesium Replacement Protocol 1 EACH MISC MISCELLANE PRN (06:53)
[2024-04-04] MEDS: MAGNESIUM SULFATE-D5W PMX 1 GM in DEXTROSE/WATER 1 100ML.BAG IVPB ONE (07:04)
--- NOTE | 2024-04-04 08:30 | P.PN ---
Subjective Progress Note Date: 04/04/24 Patient has continued to leak ascites to her SALVADOR site. Patient put out approxitwenty 300 cc yesterday. She obviously has high-volume ascites. The patient will be scheduled for paracentesis tomorrow. Objective - Vital Signs Vital signs: Vital Signs Temp 98.4 F 04/04/24 02:00 Pulse 110 H 04/04/24 02:00 Resp 17 04/04/24 02:00 BP 99/58 04/04/24 02:00 Pulse Ox 98 04/04/24 02:00 FiO2 Intake & Output 04/03/24 04/04/24 04/04/24 18:59 06:59 18:59 Intake Total 400 1420 Output Total 3500 4250 Balance -3100 -2830 Intake: IV 500 Vancomycin 1,750 mg In 500 Sodium Chloride 0.9% 500 ml 500 ml @ 167 mls/hr IVPB Q12H [facility] Rx#: [id number] Oral 400 920 Output: Drainage 2200 2300 Right Abdomen 2200 2300 Urine 1300 1950 Other: Voiding Method Toilet Toilet - Labs CBC & Chem 7: 04/04/24 05:31 04/04/24 05:31 Labs: Abnormal Lab Results - Last 24 Hours (Table) 04/03/24 04/03/24 04/03/24 Range/Units 11:42 13:54 18:09 RBC (3.80-5.40) m/uL Hgb (11.4-16.0) gm/dL Hct (34.0-46.0) % MCV (80.0-100.0) fL RDW (11.5-15.5) % Plt Count (150-450) k/uL Sodium 123 L 127 L (137-145) mmol/L Carbon Dioxide (22-30) mmol/L Calcium (8.4-10.2) mg/dL Cortisol 24.5 H (3.1-22.4) UG/DL 04/04/24 04/04/24 04/04/24 Range/Units 01:04 05:31 05:31 RBC 3.04 L (3.80-5.40) m/uL Hgb 9.8 L (11.4-16.0) gm/dL Hct 31.6 L (34.0-46.0) % MCV 104.0 H (80.0-100.0) fL RDW 17.4 H (11.5-15.5) % Plt Count 89 L (150-450) k/uL Sodium 123 L 124 L (137-145) mmol/L Carbon Dioxide 14 L (22-30) mmol/L Calcium 7.9 L (8.4-10.2) mg/dL Cortisol (3.1-22.4) UG/DL
[2024-04-04] MEDS: TOLVAPTAN 30 MG TABLET PO ONE (09:05)
--- NOTE | 2024-04-04 09:36 | PN ---
PROGRESS NOTE A 44-year-old white female being seen by Dr. Kaba for drug-resistant UTI and hyponatremia. Dr. Kaba saw the patient. Her urine culture was positive for Enterococcus faecalis, positive UA. Arias catheter on admission. She has been in the hospital for 2 weeks, mildly elevated white count, low-grade fever, urinary symptoms, penicillin allergy, started on vancomycin, and follow cultures. Awaiting surgical evaluation on the ascitic fluid drainage. She also has last night of 1.8 L of ascitic drainage. Hemoglobin is 9.3. Has hyponatremia, alcohol abuse, liver cirrhosis, hypomagnesemia, status post laparoscopic cholecystectomy, non-gap metabolic acidosis, on oral bicarb, fluid restriction, sodium chloride, Samsca, Cosyntropin stimulation test. MMODL / IJN: [id number] /
--- NOTE | 2024-04-04 10:04 | P.PN ---
Subjective Progress Note Date: 04/04/24 Principal diagnosis: Hyponatremia. Patient is a 44-year-old white female with past medical story significant for COPD, alcoholism, liver cirrhosis, ascites with previous paracentesis, esophageal varices, gastric ulcer, and previous GI bleed. Last drink was reportedly 1 month ago. Of note, patient did have a recent esophagogastroduodenoscopy on 02/19/2024 she was found to have a 5 mm antral ulcer with no active bleeding, small distal esophageal varices and mild to moderate gastritis. She did have a HIDA scan on 02/23/2024. she was brought in for a laparoscopic cholecystectomy, which was reportedly done on March,. No perioperative complications reported. Postoperatively, the patient was recovering on the medical surgical unit. She is tolerating her diet. She was noted to have copious serous output from her SALVADOR drain. In fact, a total of 2.4 L has drained so far in the last 24 hours. She was also being diuresed with Lasix. Subsequently, became hyponatremic, sodium was as low as 116. Nephrology recommended starting 3% hypertonic saline, which required transfer the patient to the intensive care unit for monitoring. Patient is currently sitting up in bed, on room air, in no acute distress. No signs of alcohol withdrawal. Lasix has been stopped. She continues to have significant amount of serous drainage from a prior drain site, however, her SALVADOR drain has been removed. She has abdominal ascites. No cognitive symptoms. No confusion/AMS, headache, seizures. Hypertonic saline is currently infusing at 25 mL/h. Current sodium is 119, with a goal of 120 mmol/L. Nephrology is managing. Remaining labs include a CBC with a WBC count 17.2, hemoglobin 10, hematocrit 31, platelets 133. BMP: Sodium 119, potassium 4.2, chloride 96, serum bicarb 16, BUN 15, creatinine 0.79, glucose 103. Most recent LFTs unremarkable. Total bili 1.7. Ammonia 37. Has remained afebrile. Heart rhythm appears sinus tachycardia on bedside monitor with a heart rate of 112 beats per minutes, blood pressure stable at 103/53 mmHg. Hemodynamics are stable. Progress note dated March 29, 2024. 44-year-old female with a significant past medical history as noted above. The patient is seen in the intensive care unit, room 262. She remains on room air. She is receiving 3% saline as per nephrology, at 35 cc an hour. Today's sodium was 122. Clinically she is very stable. Current laboratory data includes a white count 11.9, hemoglobin 9.6, hematocrit 31.2, and a platelet count of 118,000. Sodium 122, potassium 4.5, chlorides 102, CO2 16, BUN 18, creatinine 0.71. TSH is 1.80. No significant pathology is noted on abdominal ultrasound. Progress note dated March 30, 2024. 44-year-old female seen in room 262. The patient continues on room air. She is getting 3% saline at 35 cc an hour. Her sodium today was 124. The patient appears to be doing relatively well. She still has significant drainage, from the incision, on the abdomen. White count was 10.7, hemoglobin 9.3, hematocrit 30, platelet count 108,000. Sodium 126, potassium 4.6, chlorides 105, CO2 19, BUN 20, creatinine 0.71. Glucose is 105. Calcium is 7.7. Albumin is 2.0. Amm onia level is 60. Progress note dated March 31, 2024. 44-year-old female seen again in room 262. Currently, she is on room air. She is not receiving any IV fluids. Over the last few days, she has been on 3% saline. Today's sodium is 125. Labs include a white count 10.8, hemoglobin 9.6, hematocrit 30.6, and a platelet count of 103,000. Sodium 125, potassium 4.7, chlorides 102, CO2 19, BUN 19, and creatinine 0.86. Progress note dated April 01, 2024. 44-year-old female seen in the intensive care unit, room 262. Unfortunately, the patient sodium has dropped, down to 122, and she was started back on 3% saline at 35 cc an hour. She appears to have a resistant hyponatremia. Other than that, the patient is doing well. She is not requiring any supplemental oxygen. She had an uneventful night. Current labs include a sodium now down to 120, the rest of the electrolyte profile from this morning shows a potassium 4.5, chloride 99, CO2 18, BUN 19, creatinine 0.93. Calcium is 8.0. Progress note dated April 02, 2024. 44-year-old female seen in the intensive care unit, for hyponatremia. The patient is seen today in room 262. The patient is on room air. The patient is getting 3% saline at 40 cc an hour. This morning sodium level is 125. Additional laboratory data includes a white count 6.7, hemoglobin 9.3, hematocrit 30.1, and platelet count 83,000. Sodium 125, potassium 4.3, chlorides 106, CO2 16, BUN 17, creatinine 0.85. Glucose is 100. Albumin is 2.2. The urine specimen from March 30 shows evidence of Enterococcus faecium and Hafnia alvei. The patient is currently not on any antibiotics. I am sure the primary will likely consult infectious diseases. Progress note dated April 03, 2024. 44-year-old female seen in the intensive care unit. The patient is on room air. Sodium this morning was 124. It had been up to 133. The patient is not receiving any IV fluids. Laboratory data includes a white count 7.3, hemoglobin 9.3, hematocrit 30.5, and a platelet count of 103,000. Sodium 124, potassium 4.4, chlorides 102, CO2 20, BUN 17, creatinine 1.02. The patient is very clinically stable. The patient is able to move out of the intensive care unit. Progress note dated April 04, 2024. 44-year-old female seen in the intensive care unit, room 262. Today sodium is 124. She is on room air. Her saline IV is running at 10 cc an hour. The patient is waiting for a bed on the general medical floor. She had an uneventful night. She is awake and alert, without any complaints or symptoms. White count is 8.5, hemoglobin 9.8, hematocrit 31.6, platelet 89,000. Sodium 124, potassium 4.4, chlorides 105, CO2 14, BUN 15, creatinine 0.84. Objective - Vital Signs Vital signs: Vital Signs Temp 97.6 F 04/04/24 08:00 Pulse 101 H 04/04/24 08:29 Resp 17 04/04/24 08:00 BP 100/57 04/04/24 08:00 Pulse Ox 100 04/04/24 08:00 FiO2 Intake & Output 04/03/24 04/04/24 04/04/24 18:59 06:59 18:59 Intake Total 400 1420 Output Total 3500 4250 Balance -3100 -2830 Intake: IV 500 Vancomycin 1,750 mg In 500 Sodium Chloride 0.9% 500 ml 500 ml @ 167 mls/hr IVPB Q12H [facility] Rx#: [id number] Oral 400 920 Output: Drainage 2200 2300 Right Abdomen 2200 2300 Urine 1300 1950 Other: Voiding Method Toilet Toilet - Exam No acute distress, oriented 3. The patient is currently on room air. Saturations are 100 %. HEENT examination is grossly unremarkable. Mucous membranes are moist. No oral lesions. Neck supple. Full range of motion. No adenopathy thyromegaly or neck vein distention. Cardiovascular examination reveals regular rhythm rate. S1-S2 normal. No S3 or S4. No discernible murmur noted. Heart rate is 98 bpm. Heart sounds are distant. Lungs reveal clear breath sounds. Breath sounds are equal bilaterally. No adventitious lung sounds including wheezes rhonchi or crackles. Abdomen soft bowel sounds are heard. No masses or tenderness. Extremities are intact. No cyanosis clubbing or edema. Skin is without rash or lesion. Neurologic examination is brief but nonfocal. - Labs CBC & Chem 7: 04/04/24 05:31 04/04/24 05:31 Labs: Abnormal Lab Results - Last 24 Hours (Table) 04/03/24 04/03/24 04/03/24 Range/Units 11:42 13:54 18:09 RBC (3.80-5.40) m/uL Hgb (11.4-16.0) gm/dL Hct (34.0-46.0) % MCV (80.0-100.0) fL RDW (11.5-15.5) % Plt Count (150-450) k/uL Sodium 123 L 127 L (137-145) mmol/L Carbon Dioxide (22-30) mmol/L Calcium (8.4-10.2) mg/dL Cortisol 24.5 H (3.1-22.4) UG/DL 04/04/24 04/04/24 04/04/24 Range/Units 01:04 05:31 05:31 RBC 3.04 L (3.80-5.40) m/uL Hgb 9.8 L (11.4-16.0) gm/dL Hct 31.6 L (34.0-46.0) % MCV 104.0 H (80.0-100.0) fL RDW 17.4 H (11.5-15.5) % Plt Count 89 L (150-450) k/uL Sodium 123 L 124 L (137-145) mmol/L Carbon Dioxide 14 L (22-30) mmol/L Calcium 7.9 L (8.4-10.2) mg/dL Cortisol (3.1-22.4) UG/DL Assessment and Plan Assessment: 3% saline resistant hyponatremia. S/P operative day #14, following a laparoscopic cholecystectomy. Non-anion gap metabolic acidosis. Sinus tachycardia. Macrocytic anemia. Alcoholic liver disease and abdominal ascites. History of GI bleed status post esophagogastroduodenoscopy on 02/19/2024. History of esophageal varices. History of mild to moderate gastritis and 5 mm antral gastric ulcer . History of alcoholism, last drink reportedly 1 month ago. Chronic obstructive pulmonary disease, stable. Chronic ongoing tobacco dependence. History of bipolar disorder. Plan: Plan dated March 29, 2024. The patient is seen in the intensive care unit. The patient is on 3% saline at 35 cc an hour. Today's sodium was 122. Clinically, the patient is stable. No respiratory issues to speak of. Labs, x-rays, medications are reviewed. We will continue to follow the patient, and make recommendations along the way. Prognosis is certainly guarded. The patient will continue on the proton pump inhibitor. Nephrology is managing the patient's 3% saline infusion. Plan dated March 30, 2024. The patient is seen in the intensive care unit, room 262. She is sitting in the chair next to the hospital bed. She is on room air. The patient is getting 3% saline at 35 cc an hour. Today sodium was initially 124. Repeat was 126. Labs, x-rays, and all medications are reviewed. The patient's overall prognosis remains guarded. We will continue to follow make recommendations along the way. Plan dated March 31, 2024. The patient appears to be doing better today. She is no longer on 3% saline. Sodium was 125. The patient is not requiring any supplemental oxygen. Her hem odynamics are stable. The patient could be transferred out of the intensive care unit, but as long she does not require 3% saline. She has been followed by nephrology. Additional recommendations and suggestions are forthcoming. Plan dated April 01, 2024. The patient continues in the intensive care unit, primarily because she has ongoing and worsening hyponatremia. Actually, her repeat sodium was 120, down from 122. She continues on 3% saline at 35 cc an hour. Labs, x-rays, and medications are all reviewed. Her respiratory status is stable. We will continue to follow her, while she remains in the intensive care unit. No additional recommendations are made at this time. She is is being managed by nephrology. Plan dated April 02, 2024. The patient is seen today in room 262. She is on room air. Her respiratory status remained stable. She denies any shortness of breath, cough, wheezing, chest tightness, or phlegm production. She continues on saline, 3%, and 40 cc an hour. Her today's sodium is 125. Labs, x-rays, and medications are reviewed. We will continue to follow make recommendations along the way. Prognosis is guarded. Urine was positive for both Hafnia and Enterococcus. Plan dated April 03, 2024. The patient's sodium was up to 133, today is 124. Labs, x-rays, medications are reviewed. We will continue to follow make recommendations. The patient is also being followed and managed by nephrology. Clinically, the patient is very stable. She denies any shortness of breath, cough, wheezing, chest tightness, or phlegm production. Plan dated April 04, 2024. Today sodium was 124. The patient is receiving saline at 10 cc an hour. The patient can be transferred out to the general medical floor. Labs, x-rays, medications are reviewed. Prognosis is guarded. The patient denies any issues, including shortness of breath, cough, wheezing, chest tightness, phlegm production, chest pain, chest pressure, etc. Time with Patient: Less than 30
--- NOTE | 2024-04-04 11:17 | P.PN ---
Subjective Patient is seen for follow-up for hyponatremia. Status post 3% saline. Serum sodium had improved to but staying around 124 status post samsca and maintained on sodium chloride tablets along with sodium bicarb. No significant complaints today. Scheduled for paracentesis today, patient continues to have large amount of ascitic fluid drainage. Objective - Vital Signs Vital signs: Vital Signs Temp 97.6 F 04/04/24 08:00 Pulse 101 H 04/04/24 08:29 Resp 17 04/04/24 08:00 BP 100/57 04/04/24 08:00 Pulse Ox 100 04/04/24 08:00 FiO2 Intake & Output 04/03/24 04/04/24 04/04/24 18:59 06:59 18:59 Intake Total 400 1420 Output Total 3500 4250 Balance -3100 -2830 Intake: IV 500 Vancomycin 1,750 mg In 500 Sodium Chloride 0.9% 500 ml 500 ml @ 167 mls/hr IVPB Q12H [facility] Rx#: [id number] Oral 400 920 Output: Drainage 2200 2300 Right Abdomen 2200 2300 Urine 1300 1950 Other: Voiding Method Toilet Toilet - Exam Patient is awake, comfortable, no acute distress. Examination of the heart S1 and S2 Examination of the lungs bilateral breath sounds are heard Abdomen is soft distended with drainage of ascitic fluid noted. Examination lower extremity shows trace edema [employer] exam grossly intact - Labs CBC & Chem 7: 04/04/24 05:31 04/04/24 05:31 Labs: Abnormal Lab Results - Last 24 Hours (Table) 04/03/24 04/03/24 04/03/24 Range/Units 11:42 13:54 18:09 RBC (3.80-5.40) m/uL Hgb (11.4-16.0) gm/dL Hct (34.0-46.0) % MCV (80.0-100.0) fL RDW (11.5-15.5) % Plt Count (150-450) k/uL Sodium 123 L 127 L (137-145) mmol/L Carbon Dioxide (22-30) mmol/L Calcium (8.4-10.2) mg/dL Cortisol 24.5 H (3.1-22.4) UG/DL 04/04/24 04/04/24 04/04/24 Range/Units 01:04 05:31 05:31 RBC 3.04 L (3.80-5.40) m/uL Hgb 9.8 L (11.4-16.0) gm/dL Hct 31.6 L (34.0-46.0) % MCV 104.0 H (80.0-100.0) fL RDW 17.4 H (11.5-15.5) % Plt Count 89 L (150-450) k/uL Sodium 123 L 124 L (137-145) mmol/L Carbon Dioxide 14 L (22-30) mmol/L Calcium 7.9 L (8.4-10.2) mg/dL Cortisol (3.1-22.4) UG/DL Assessment and Plan Assessment: 1. Hyponatremia associated with liver cirrhosis. Status post 3% saline as sodium had not improved with diuretics or normal saline. Sodium improved to 133 and has dropped again to 127-124 today. TSH normal. Urine sodium less than 20. Urine osmolality 755 and 335. Cortisol level 10, adrenal insufficiency ruled out by cosyntropin stimulation test. 2. History of alcohol abuse. 3. History of liver cirrhosis. 4. Hypomagnesemia from diuresis and GI losses. Replaced. Better. 5. Status post laparoscopic cholecystectomy March 21, 2024. 6. Nongap metabolic acidosis from GI losses. On oral bicarb. Plan: continue with fluid restriction Sodium chloride 1 g 1 Samsca 30 mg 1 Repeat sodium later today.
[2024-04-04] MEDS: SODIUM CHLORIDE TAB 1 GM TAB PO SCH (11:55)
--- NOTE | 2024-04-04 15:23 | P.PN ---
Subjective Progress Note Date: 04/04/24 Principal diagnosis: Reason for follow-up is Enterococcus urinary tract infection Patient is a 44-year-old with a past medical history significant for female reflux cirrhosis of the liver from alcoholism status post laparoscopic cholecystectomy during this admission also have a positive urine culture for Enterococcus faecium prompted this consultation. On today's evaluation that is 04/04/2024, the patient continues to be afebrile, the patient is on room air and breathing comfortably, the Pt denies having any chest pain or cough, the patient abdominal pain is currently controlled still having some drainage from the 1 of incision, no urinary symptoms. The patient white count is 8.5, creatinine 0.8 4 repeat UA done yesterday is negative Objective - Vital Signs Vital signs: Vital Signs Temp 98.0 F 04/04/24 13:35 Pulse 105 H 04/04/24 13:35 Resp 15 04/04/24 13:35 BP 93/58 04/04/24 13:35 Pulse Ox 100 04/04/24 13:35 FiO2 Intake & Output 04/03/24 04/04/24 04/04/24 18:59 06:59 18:59 Intake Total 400 1420 Output Total 3500 4250 1350 Balance -3100 -2830 -1350 Intake: IV 500 Vancomycin 1,750 mg In 500 Sodium Chloride 0.9% 500 ml 500 ml @ 167 mls/hr IVPB Q12H [facility] Rx#: [id number] Oral 400 920 Output: Drainage 2200 2300 650 Right Abdomen 2200 2300 650 Urine 1300 1950 700 Other: Voiding Method Toilet Toilet Toilet # Voids 1 - Exam GENERAL DESCRIPTION: Middle-age female lying in bed in no distress RESPIRATORY SYSTEM: Unlabored breathing , decreased breath sounds at bases HEART: S1 S2 regular rate and rhythm , ABDOMEN: Soft , no tenderness EXTREMITIES: No edema feet - Labs CBC & Chem 7: 04/04/24 05:31 04/04/24 11:42 Labs: Abnormal Lab Results - Last 24 Hours (Table) 04/03/24 04/03/24 04/04/24 Range/Units 13:54 18:09 01:04 RBC (3.80-5.40) m/uL Hgb (11.4-16.0) gm/dL Hct (34.0-46.0) % MCV (80.0-100.0) fL RDW (11.5-15.5) % Plt Count (150-450) k/uL Sodium 127 L 123 L (137-145) mmol/L Carbon Dioxide (22-30) mmol/L Calcium (8.4-10.2) mg/dL Cortisol 24.5 H (3.1-22.4) UG/DL 04/04/24 04/04/24 04/04/24 Range/Units 05:31 05:31 11:42 RBC 3.04 L (3.80-5.40) m/uL Hgb 9.8 L (11.4-16.0) gm/dL Hct 31.6 L (34.0-46.0) % MCV 104.0 H (80.0-100.0) fL RDW 17.4 H (11.5-15.5) % Plt Count 89 L (150-450) k/uL Sodium 124 L 123 L (137-145) mmol/L Carbon Dioxide 14 L (22-30) mmol/L Calcium 7.9 L (8.4-10.2) mg/dL Cortisol (3.1-22.4) UG/DL Assessment and Plan (1) Urinary tract infection Current Visit: Yes Status: Acute Code(s): N39.0 - URINARY TRACT INFECTION, SITE NOT SPECIFIED SNOMED Code(s): 28321873 (2) Penicillin allergy Current Visit: Yes Status: Acute Code(s): Z88.0 - ALLERGY STATUS TO PENICILLIN SNOMED Code(s): 68713370 Plan: 1patient with a positive urine culture with Enterococcus faecium and this pa tient did have a positive UA it is not very clear that the patient did have a Arias catheter during this admission however the patient has been in the hospital for almost 2 weeks prior to initial evaluation and did have a mild elevated white count and low-grade fever and urinary symptoms question of possible urine tract infection though the patient mention some improvement her symptoms without antibiotic specific for this pathogen 2-penicillin allergy that will limit the number of antibiotic safe to use 3-repeat UA is negative and urinary symptom has resolved we will discontinue vancomycin and monitor patient closely off antibiotic Dictation was produced using [employer] dictation software. please excuse any grammatical, word or spelling errors. Time with Patient: Less than 30
[2024-04-04] MEDS: FUROSEMIDE 10 MG/ML 2 ML VIAL IV ONE (15:30)
[2024-04-04] MEDS: MIDODRINE 5 MG TAB PO PRN (18:57)
[2024-04-04] MEDS: HYDROcodone/APAP 5-325MG 1 EACH TAB ONE ×3 (19:28→19:29)
[2024-04-05] MEDS: FUROSEMIDE 10 MG/ML 2 ML VIAL IV ONE (00:31)
[2024-04-05 09:29] LABS: Acanthocytes 2+; Basophils # (A) 0.05 X 10*3/uL (0.00-0.10); Basophils % (A) 0.7 %; Elliptocytes 2+; Eosinophils # (A) 0.31 X 10*3/uL (0.04-0.35); Eosinophils % (A) 4.3 %; HCT 29.3 % (37.2-46.3); HGB 8.8 g/dL (12.0-15.0); Lymphocytes # (A) 1.53 X 10*3/uL (0.90-5.00); Lymphocytes % (A) 21.3 %; MCH 31.5 pg (27.0-32.0); Macrocytosis (M) 2+; Mean Platelet Volume 13.1 FL (9.5-12.2); Monocytes # (A) 0.56 X 10*3/uL (0.20-1.00); Monocytes % (A) 7.8 %; NRBC Per 100 WBC 0 X 10*3/uL (0.00-0.01); Neutrophils % (A) 65.5 %; Platelet Count 76 X 10*3/uL (140-440); Polychromasia 2+; RBC 2.79 X 10*6/uL (4.10-5.20); WBC 7.18 X 10*3/uL (4.50-10.00)
[2024-04-05 10:13] LABS: INR 1.1 (<1.2); Prothrombin Time 11.6 sec (10.0-12.5)
[2024-04-05 10:28] LABS: ALT 29 U/L (8-44); AST 45 U/L (13-35); Albumin 2.5 g/dL (3.8-4.9); Albumin/Globulin Ratio 1.67 Ratio (1.60-3.17); Alkaline Phosphatase 101 U/L (41-126); Blood Urea Nitrogen 14.1 mg/dL (9.0-27.0); Calcium 7.6 mg/dL (8.7-10.3); Carbon Dioxide 14.9 mmol/L (21.6-31.8); Chloride 99 mmol/L (96-109); Globulin 1.5 g/dL (1.6-3.3); Glucose 125 mg/dL (70-110); Magnesium 1.7 mg/dL (1.5-2.4); Sodium 123 mmol/L (135-145); Total Bilirubin 0.7 mg/dL (0.3-1.2)
[2024-04-05] MEDS ORDERED: Magnesium Replacement Protocol 1 EACH MISC MISCELLANE PRN (10:40)
[2024-04-05] MEDS: MAGNESIUM SULFATE-D5W PMX 1 GM in DEXTROSE/WATER 1 100ML.BAG IVPB ONE (10:57)
--- NOTE | 2024-04-05 10:57 | US ---
Ultrasound-guided paracentesis. DATE OF EXAM: 04/05/2024 CLINICAL HISTORY: Ascites Preliminary imaging demonstrated no sizable fluid collection. IMPRESSION: No evidence of ascites..
--- NOTE | 2024-04-05 11:50 | P.PN ---
Subjective Patient is seen for follow-up for hyponatremia. Status post 3% saline. Serum sodium had improved to 128 but staying around 124 status post samsca and maintained on sodium chloride tablets along with sodium bicarb. patient is currently in radiology for paracentesis. Objective - Vital Signs Vital signs: Vital Signs Temp 97.7 F 04/05/24 07:30 Pulse 80 04/05/24 10:19 Resp 12 04/05/24 10:19 BP 136/71 04/05/24 10:19 Pulse Ox 99 04/05/24 07:30 FiO2 Intake & Output 04/04/24 04/05/24 04/05/24 18:59 06:59 18:59 Intake Total 200 160 Output Total 4233 238 9901 Balance -1150 -540 -1950 Intake: IV 120 Vancomycin 1,750 mg In 120 Sodium Chloride 0.9% 500 ml 500 ml @ 167 mls/hr IVPB Q12H [facility] Rx#: [id number] Oral 200 40 Output: Drainage 448 219 7883 Right Abdomen 024 861 2567 Urine 700 Other: Voiding Method Toilet Toilet Toilet # Voids 1 - Labs CBC & Chem 7: 04/05/24 03:30 04/05/24 03:30 Labs: Abnormal Lab Results - Last 24 Hours (Table) 04/04/24 04/04/24 04/05/24 Range/Units 11:42 20:15 03:30 RBC (4.10-5.20) X 10*6/uL Hgb (12.0-15.0) g/dL Hct (37.2-46.3) % MCV (80.0-97.0) FL MCHC (32.0-37.0) g/dL RDW (11.5-14.5) % Plt Count (140-440) X 10*3/uL MPV (9.5-12.2) FL Polychromasia Macrocytosis (manual) Elliptocytes Acanthocytes (Spur) Sodium 123 L 125 L 123 L (137-145) mmol/L Carbon Dioxide 14.9 L (21.6-31.8) mmol/L Glucose 125 H (70-110) mg/dL Calcium 7.6 L (8.7-10.3) mg/dL AST 45 H (13-35) U/L Total Protein 4.0 L (6.2-8.2) g/dL Albumin 2.5 L (3.8-4.9) g/dL Globulin 1.5 L (1.6-3.3) g/dL 04/05/24 Range/Units 03:30 RBC 2.79 L (4.10-5.20) X 10*6/uL Hgb 8.8 L (12.0-15.0) g/dL Hct 29.3 L (37.2-46.3) % MCV 105.0 H (80.0-97.0) FL MCHC 30.0 L (32.0-37.0) g/dL RDW 17.0 H (11.5-14.5) % Plt Count 76 L (140-440) X 10*3/uL MPV 13.1 H (9.5-12.2) FL Polychromasia 2+ A Macrocytosis (manual) 2+ A Elliptocytes 2+ A Acanthocytes (Spur) 2+ A Sodium (137-145) mmol/L Carbon Dioxide (21.6-31.8) mmol/L Glucose (70-110) mg/dL Calcium (8.7-10.3) mg/dL AST (13-35) U/L Total Protein (6.2-8.2) g/dL Albumin (3.8-4.9) g/dL Globulin (1.6-3.3) g/dL Assessment and Plan Assessment: 1. Hyponatremia associated with liver cirrhosis. Status post 3% saline as sodium had not improved with diuretics or normal saline. Sodium improved to 133 and has dropped again to 123-124 today. TSH normal. Urine sodium less than 20. Urine osmolality 755 and 335. Cortisol level 10, adrenal insufficiency ruled out by cosyntropin stimulation test. 2. History of alcohol abuse. 3. History of liver cirrhosis. 4. Hypomagnesemia from diuresis and GI losses. Replaced. Better. 5. Status post laparoscopic cholecystectomy March 21, 2024. 6. Nongap metabolic acidosis from GI losses. On oral bicarb. Plan: continue with fluid restriction continue with sodium chloride tab Repeat sodium later today.
--- NOTE | 2024-04-05 13:50 | P.PN ---
Subjective Progress Note Date: 04/05/24 the patient continues to leak ascites from her SALVADOR site. She had an ultrasound performed today which shows no drainable pockets of fluid. On exam vital signs appear stable. Abdomen is soft. Incision sites are clean dry intact. Patient will be medically managed. Objective - Vital Signs Vital signs: Vital Signs Temp 97.7 F 04/05/24 07:30 Pulse 112 H 04/05/24 12:50 Resp 12 04/05/24 10:19 BP 136/71 04/05/24 10:19 Pulse Ox 99 04/05/24 07:30 FiO2 Intake & Output 04/04/24 04/05/24 04/05/24 18:59 06:59 18:59 Intake Total 200 160 Output Total 4548 552 7558 Balance -1150 -540 -2450 Intake: IV 120 Vancomycin 1,750 mg In 120 Sodium Chloride 0.9% 500 ml 500 ml @ 167 mls/hr IVPB Q12H [facility] Rx#: [id number] Oral 200 40 Output: Drainage 017 401 3108 Right Abdomen 726 802 9870 Urine 700 Stool 250 Other: Voiding Method Toilet Toilet Toilet # Voids 1 5 - Labs CBC & Chem 7: 04/05/24 03:30 04/05/24 03:30 Labs: Abnormal Lab Results - Last 24 Hours (Table) 04/04/24 04/05/24 04/05/24 Range/Units 20:15 03:30 03:30 RBC 2.79 L (4.10-5.20) X 10*6/uL Hgb 8.8 L (12.0-15.0) g/dL Hct 29.3 L (37.2-46.3) % MCV 105.0 H (80.0-97.0) FL MCHC 30.0 L (32.0-37.0) g/dL RDW 17.0 H (11.5-14.5) % Plt Count 76 L (140-440) X 10*3/uL MPV 13.1 H (9.5-12.2) FL Polychromasia 2+ A Macrocytosis (manual) 2+ A Elliptocytes 2+ A Acanthocytes (Spur) 2+ A Sodium 125 L 123 L (137-145) mmol/L Carbon Dioxide 14.9 L (21.6-31.8) mmol/L Glucose 125 H (70-110) mg/dL Calcium 7.6 L (8.7-10.3) mg/dL AST 45 H (13-35) U/L Total Protein 4.0 L (6.2-8.2) g/dL Albumin 2.5 L (3.8-4.9) g/dL Globulin 1.5 L (1.6-3.3) g/dL
--- NOTE | 2024-04-05 14:56 | P.PN ---
Subjective Progress Note Date: 04/05/24 Patient is a 44-year-old white female with past medical story significant for COPD, alcoholism, liver cirrhosis, ascites with previous paracentesis, esophageal varices, gastric ulcer, and previous GI bleed. Last drink was reportedly 1 month ago. Of note, patient did have a recent esophagogastroduodenoscopy on 02/19/2024 she was found to have a 5 mm antral ulcer with no active bleeding, small distal esophageal varices and mild to moderate gastritis. She did have a HIDA scan on 02/23/2024. she was brought in for a laparoscopic cholecystectomy, which was reportedly done on March,. No perioperative complications reported. Postoperatively, the patient was recovering on the medical surgical unit. She is tolerating her diet. She was noted to have copious serous output from her SALVADOR drain. In fact, a total of 2.4 L has drained so far in the last 24 hours. She was also being diuresed with Lasix. Subsequently, became hyponatremic, sodium was as low as 116. Nephrology recommended starting 3% hypertonic saline, which required transfer the patient to the intensive care unit for monitoring. Patient is currently sitting up in bed, on room air, in no acute distress. No signs of alcohol withdrawal. Lasix has been stopped. She continues to have significant amount of serous drainage f rom a prior drain site, however, her SALVADOR drain has been removed. She has abdominal ascites. No cognitive symptoms. No confusion/AMS, headache, seizures. Hypertonic saline is currently infusing at 25 mL/h. Current sodium is 119, with a goal of 120 mmol/L. Nephrology is managing. Remaining labs include a CBC with a WBC count 17.2, hemoglobin 10, hematocrit 31, platelets 133. BMP: Sodium 119, potassium 4.2, chloride 96, serum bicarb 16, BUN 15, creatinine 0.79, glucose 103. Most recent LFTs unremarkable. Total bili 1.7. Ammonia 37. Has remained afebrile. Heart rhythm appears sinus tachycardia on bedside monitor with a heart rate of 112 beats per minutes, blood pressure stable at 103/53 mmHg. Hemodynamics are stable. Progress note dated March 29, 2024. 44-year-old female with a significant past medical history as noted above. The patient is seen in the intensive care unit, room 262. She remains on room air. She is receiving 3% saline as per nephrology, at 35 cc an hour. Today's sodium was 122. Clinically she is very stable. Current laboratory data includes a white count 11.9, hemoglobin 9.6, hematocrit 31.2, and a platelet count of 118,000. Sodium 122, potassium 4.5, chlorides 102, CO2 16, BUN 18, creatinine 0.71. TSH is 1.80. No significant pathology is noted on abdominal ultrasound. Progress note dated March 30, 2024. 44-year-old female seen in room 262. The patient continues on room air. She is getting 3% saline at 35 cc an hour. Her sodium today was 124. The patient appears to be doing relatively well. She still has significant drainage, from the incision, on the abdomen. White count was 10.7, hemoglobin 9.3, hematocrit 30, platelet count 108,000. Sodium 126, potassium 4.6, chlorides 105, CO2 19, BUN 20, creatinine 0.71. Glucose is 105. Calcium is 7.7. Albumin is 2.0. Ammonia level is 60. Progress note dated March 31, 2024. 44-year-old female seen again in room 262. Currently, she is on room air. She is not receiving any IV fluids. Over the last few days, she has been on 3% saline. Today's sodium is 125. Labs include a white count 10.8, hemoglobin 9.6, hematocrit 30.6, and a platelet count of 103,000. Sodium 125, potassium 4.7, chlorides 102, CO2 19, BUN 19, and creatinine 0.86. Progress note dated April 01, 2024. 44-year-old female seen in the intensive care unit, room 262. Unfortunately, the patient sodium has dropped, down to 122, and she was started back on 3% saline at 35 cc an hour. She appears to have a resistant hyponatremia. Other than that, the patient is doing well. She is not requiring any supplemental oxygen. She had an uneventful night. Current labs include a sodium now down to 120, the rest of the electrolyte profile from this morning shows a potassium 4.5, chloride 99, CO2 18, BUN 19, creatinine 0.93. Calcium is 8.0. Progress note dated April 02, 2024. 44-year-old female seen in the intensive care unit, for hyponatremia. The patient is seen today in room 262. The patient is on room air. The patient is getting 3% saline at 40 cc an hour. This morning sodium level is 125. Additional laboratory data includes a white count 6.7, hemoglobin 9.3, hematocrit 30.1, and platelet count 83,000. Sodium 125, potassium 4.3, chlorides 106, CO2 16, BUN 17, creatinine 0.85. Glucose is 100. Albumin is 2.2. The urine specimen from March 30 shows evidence of Enterococcus faecium and Hafnia alvei. The patient is currently not on any antibiotics. I am sure the primary will likely consult infectious diseases. Progress note dated April 03, 2024. 44-year-old female seen in the intensive care unit. The patient is on room air. Sodium this morning was 124. It had been up to 133. The patient is not receiving any IV fluids. Laboratory data includes a white count 7.3, hemoglobin 9.3, hematocrit 30.5, and a platelet count of 103,000. Sodium 124, potassium 4.4, chlorides 102, CO2 20, BUN 17, creatinine 1.02. The patient is very clinically stable. The patient is able to move out of the intensive care unit. Progress note dated April 04, 2024. 44-year-old female seen in the intensive care unit, room 262. Today sodium is 124. She is on room air. Her saline IV is running at 10 cc an hour. The patient is waiting for a bed on the general medical floor. She had an uneventful night. She is awake and alert, without any complaints or symptoms. White count is 8.5, hemoglobin 9.8, hematocrit 31.6, platelet 89,000. Sodium 124, potassium 4.4, chlorides 105, CO2 14, BUN 15, creatinine 0.84. On today's evaluation of 04/05/2024, the patient is being seen for a follow-up. 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 Meanwhile, the patient was seen by interventional radiology and there was no sizable ascitic fluid to drain based on their evaluation. Abdomen is nondistended. She has no nausea or vomiting. Abdominal pain. No abdominal tenderness. She is off hypertonic saline and sodium level is up to 123. She is known to have liver cirrhosis secondary to alcoholism. Her platelet count is at 76 with a hemoglobin of 8.8 and a white cell count of 7.1. Rest of the electrolytes show a component of non-anion gap metabolic acidosis with a serum bicarb of 14.9. She remains on midodrine. She remains on oral bicarb and oral sodium tablets. Nephrology is on the case. General surgery is on the case. No signs of any encephalopathy at this point in time. Noted patient received Samsca. She is currently off hypertonic saline solution. Objective - Vital Signs Vital signs: Vital Signs Temp 97.7 F 04/05/24 07:30 Pulse 80 04/05/24 10:19 Resp 12 04/05/24 10:19 BP 136/71 04/05/24 10:19 Pulse Ox 99 04/05/24 07:30 FiO2 Intake & Output 04/04/24 04/05/24 04/05/24 18:59 06:59 18:59 Intake Total 200 160 Output Total 2716 514 1684 Balance -1150 -540 -1950 Intake: IV 120 Vancomycin 1,750 mg In 120 Sodium Chloride 0.9% 500 ml 500 ml @ 167 mls/hr IVPB Q12H [facility] Rx#: [id number] Oral 200 40 Output: Drainage 603 667 2738 Right Abdomen 594 863 1251 Urine 700 Other: Voiding Method Toilet Toilet Toilet # Voids 1 - Exam No acute distress, oriented 3. The patient is currently on room air. HEENT examination is grossly unremarkable. Mucous membranes are moist. No oral lesions. Neck supple. Full range of motion. No adenopathy thyromegaly or neck vein distention. Cardiovascular examination reveals regular rhythm rate. S1-S2 normal. No S3 or S4. No discernible murmur noted. Heart sounds are distant. Lungs reveal clear breath sounds. Breath sounds are equal bilaterally. No adventitious lung sounds including wheezes rhonchi or crackles. Abdomen soft bowel sounds are heard. No masses or tenderness. The patient is leaking ascitic fluid from the SALVADOR drain insertion site in the right upper quadrant. The rest of the surgical wound site is dry clean and intact. No direct emergency monitors or guarding. Extremities are intact. No cyanosis clubbing or edema. Skin is without rash or lesion. Neurologic examination is brief but nonfocal. - Labs CBC & Chem 7: 04/05/24 03:30 04/05/24 03:30 Labs: Abnormal Lab Results - Last 24 Hours (Table) 04/04/24 04/04/24 04/05/24 Range/Units 11:42 20:15 03:30 RBC (4.10-5.20) X 10*6/uL Hgb (12.0-15.0) g/dL Hct (37.2-46.3) % MCV (80.0-97.0) FL MCHC (32.0-37.0) g/dL RDW (11.5-14.5) % Plt Count (140-440) X 10*3/uL MPV (9.5-12.2) FL Polychromasia Macrocytosis (manual) Elliptocytes Acanthocytes (Spur) Sodium 123 L 125 L 123 L (137-145) mmol/L Carbon Dioxide 14.9 L (21.6-31.8) mmol/L Glucose 125 H (70-110) mg/dL Calcium 7.6 L (8.7-10.3) mg/dL AST 45 H (13-35) U/L Total Protein 4.0 L (6.2-8.2) g/dL Albumin 2.5 L (3.8-4.9) g/dL Globulin 1.5 L (1.6-3.3) g/dL 04/05/24 Range/Units 03:30 RBC 2.79 L (4.10-5.20) X 10*6/uL Hgb 8.8 L (12.0-15.0) g/dL Hct 29.3 L (37.2-46.3) % MCV 105.0 H (80.0-97.0) FL MCHC 30.0 L (32.0-37.0) g/dL RDW 17.0 H (11.5-14.5) % Plt Count 76 L (140-440) X 10*3/uL MPV 13.1 H (9.5-12.2) FL Polychromasia 2+ A Macrocytosis (manual) 2+ A Elliptocytes 2+ A Acanthocytes (Spur) 2+ A Sodium (137-145) mmol/L Carbon Dioxide (21.6-31.8) mmol/L Glucose (70-110) mg/dL Calcium (8.7-10.3) mg/dL AST (13-35) U/L Total Protein (6.2-8.2) g/dL Albumin (3.8-4.9) g/dL Globulin (1.6-3.3) g/dL Assessment and Plan Plan: Hyponatremia, multifactorial. The patient is known to have liver cirrhosis/alcoholic in nature and the patient also may have a component of postop SIADH. Treated with hypertonic saline. Received Samsca. Sodium level is stable and there is no signs of encephalopathy. Liver cirrhosis History of ascites S/P operative day # 15, following a laparoscopic cholecystectomy. Ongoing leak from the SALVADOR drain site Non-anion gap metabolic acidosis. Serum bicarb is at 15 and the patient has gotten oral bicarb Sinus tachycardia. Macrocytic anemia. Alcoholic liver disease and abdominal ascites. History of GI bleed status post esophagogastroduodenoscopy on 02/19/2024. History of esophageal varices. History of mild to moderate gastritis and 5 mm antral gastric ulcer . History of alcoholism, last drink reportedly 1 month ago. Chronic obstructive pulmonary disease, stable. Chronic ongoing tobacco dependence. History of bipolar disorder. Chronic thrombocytopenia Plan Fluid restriction Monitor sodium level Monitor output from the SALVADOR insertion site which is constantly leaking ascitic fluid and a colostomy bag has been applied to the site No evidence of any ascites to drain based on IR today evaluation Continue oral salt tablets Continue oral bicarb Continue to follow
[2024-04-05 15:59] VITALS: BMI 38.1
--- NOTE | 2024-04-05 16:22 | P.PN ---
Subjective Progress Note Date: 04/05/24 Principal diagnosis: Reason for follow-up is Enterococcus urinary tract infection Patient is a 44-year-old with a past medical history significant for female reflux cirrhosis of the liver from alcoholism status post laparoscopic cholecystectomy during this admission also have a positive urine culture for Enterococcus faecium prompted this consultation. On today's evaluation that is 04/05/2024, Patient is afebrile patient is currently on room air and denies having any shortness of breath, the patient denies any chest pain or cough, the patient denies any nausea vomiting did not have any abdominal pain and no diarrhea, mention feeling better. Patient white count 7.18, creatinine 1.0 Objective - Vital Signs Vital signs: Vital Signs Temp 97.5 F L 04/05/24 13:37 Pulse 118 H 04/05/24 13:37 Resp 17 04/05/24 13:37 BP 97/58 04/05/24 13:37 Pulse Ox 100 04/05/24 13:37 FiO2 Intake & Output 04/04/24 04/05/24 04/05/24 18:59 06:59 18:59 Intake Total 200 160 Output Total 0012 112 5497 Balance -1150 -540 -2600 Weight 113.8 kg Intake: IV 120 Vancomycin 1,750 mg In 120 Sodium Chloride 0.9% 500 ml 500 ml @ 167 mls/hr IVPB Q12H [facility] Rx#: [id number] Oral 200 40 Output: Drainage 441 789 6437 Right Abdomen 880 018 2496 Urine 700 Stool 250 Other: Voiding Method Toilet Toilet Toilet # Voids 1 5 - Exam GENERAL DESCRIPTION: Middle-age female lying in bed in no distress RESPIRATORY SYSTEM: Unlabored breathing , decreased breath sounds at bases HEART: S1 S2 regular rate and rhythm , ABDOMEN: Soft , no tenderness EXTREMITIES: No edema feet - Labs CBC & Chem 7: 04/05/24 03:30 04/05/24 14:44 Labs: Abnormal Lab Results - Last 24 Hours (Table) 04/04/24 04/05/24 04/05/24 Range/Units 20:15 03:30 03:30 RBC 2.79 L (4.10-5.20) X 10*6/uL Hgb 8.8 L (12.0-15.0) g/dL Hct 29.3 L (37.2-46.3) % MCV 105.0 H (80.0-97.0) FL MCHC 30.0 L (32.0-37.0) g/dL RDW 17.0 H (11.5-14.5) % Plt Count 76 L (140-440) X 10*3/uL MPV 13.1 H (9.5-12.2) FL Polychromasia 2+ A Macrocytosis (manual) 2+ A Elliptocytes 2+ A Acanthocytes (Spur) 2+ A Sodium 125 L 123 L (137-145) mmol/L Carbon Dioxide 14.9 L (21.6-31.8) mmol/L Glucose 125 H (70-110) mg/dL Calcium 7.6 L (8.7-10.3) mg/dL AST 45 H (13-35) U/L Total Protein 4.0 L (6.2-8.2) g/dL Albumin 2.5 L (3.8-4.9) g/dL Globulin 1.5 L (1.6-3.3) g/dL 04/05/24 Range/Units 14:44 RBC (4.10-5.20) X 10*6/uL Hgb (12.0-15.0) g/dL Hct (37.2-46.3) % MCV (80.0-97.0) FL MCHC (32.0-37.0) g/dL RDW (11.5-14.5) % Plt Count (140-440) X 10*3/uL MPV (9.5-12.2) FL Polychromasia Macrocytosis (manual) Elliptocytes Acanthocytes (Spur) Sodium 122 L (137-145) mmol/L Carbon Dioxide (21.6-31.8) mmol/L Glucose (70-110) mg/dL Calcium (8.7-10.3) mg/dL AST (13-35) U/L Total Protein (6.2-8.2) g/dL Albumin (3.8-4.9) g/dL Globulin (1.6-3.3) g/dL Assessment and Plan (1) Urinary tract infection Current Visit: Yes Status: Acute Code(s): N39.0 - URINARY TRACT INFECTION, SITE NOT SPECIFIED SNOMED Code(s): 42408027 (2) Penicillin allergy Current Visit: Yes Status: Acute Code(s): Z88.0 - ALLERGY STATUS TO PENICILLIN SNOMED Code(s): 69446208 Plan: 1patient with a positive urine culture with Enterococcus faecium and this patient did have a positive UA it is not very clear that the patient did have a Arias catheter during this admission however the patient has been in the hospital for almost 2 weeks prior to initial evaluation and did have a mild elevated white count and low-grade fever and urinary symptoms question of possible urine tract infection though the patient mention some improvement her symptoms without antibiotic specific for this pathogen 2-penicillin allergy that will limit the number of antibiotic safe to use 3-repeat UA is negative and urinary symptom has resolved patient antibiotic were discontinued yesterday will monitor the patient closely off antibiotic Dictation was produced using Pick[employer] dictation software. please excuse any grammatical, word or spelling errors. Time with Patient: Less than 30
[2024-04-05] MEDS: SODIUM FERRIC GLUCONAT-SUCROSE 125 MG in SODIUM CHLORIDE 0.9% 100 ML IVPB SCH (17:54)
[2024-04-05] MEDS: SODIUM CHLORIDE TAB 1 GM TAB PO STA (17:54)
--- NOTE | 2024-04-05 20:34 | PN ---
PROGRESS NOTE She also has a drug-resistant UTI, penicillin allergy, Enterococcus faecalis. Repeat UA is negative. We will take her off antibiotics. Prognosis guarded. MMODL / IJN: [id number] /
--- NOTE | 2024-04-05 22:04 | PN ---
PROGRESS NOTE A 44-year-old white female. Blood pressure is 97/58, 100% on room air. Heart rate is 118, respiratory rate 16 to 18, temp 97.5. Hemoglobin is down to 8.8, sodium is 122 remains low. Albumin remains low. Dr. Shah saw the patient again today. 3% saline does not appear to be working. Sodium chloride, sodium bicarbonate. Samsca was given. Radiology for paracentesis, hyponatremia secondary to liver cirrhosis, status post 3% saline. Thyroid normal. Urine sodium less than 20, urine osmolality , cortisol level 10. Rule out adrenal insufficiency, history of alcohol abuse, liver cirrhosis, hypomagnesemia, status post laparoscopic cholecystectomy. Oral bicarb. Fluid restriction, sodium chloride tablets, repeat sodium later today. Prognosis guarded. MMODL / IJN: [id number] /
[2024-04-05] MEDS: TOLVAPTAN 15 MG TABLET PO ONE (23:04)
[2024-04-06 09:18] LABS: ALT 28 U/L (8-44); AST 42 U/L (13-35); Albumin 2.4 g/dL (3.8-4.9); Albumin/Globulin Ratio 1.41 Ratio (1.60-3.17); Alkaline Phosphatase 100 U/L (41-126); Blood Urea Nitrogen 17.3 mg/dL (9.0-27.0); Calcium 7.7 mg/dL (8.7-10.3); Chloride 97 mmol/L (96-109); Globulin 1.7 g/dL (1.6-3.3); Glucose 102 mg/dL (70-110); Potassium 4.3 mmol/L (3.5-5.5); Sodium 124 mmol/L (135-145); Total Bilirubin 0.9 mg/dL (0.3-1.2); Total Protein 4.1 g/dL (6.2-8.2)
[2024-04-06 10:03] LABS: HCT 28.2 % (37.2-46.3); HGB 9.1 g/dL (12.0-15.0); MCH 31.1 pg (27.0-32.0); MCHC 32.3 g/dL (32.0-37.0); MCV 96.2 FL (80.0-97.0); Mean Platelet Volume 13.1 FL (9.5-12.2); NRBC Per 100 WBC 0 X 10*3/uL (0.00-0.01); Platelet Count 92 X 10*3/uL (140-440); RBC 2.93 X 10*6/uL (4.10-5.20); RDW 16.9 % (11.5-14.5)
[2024-04-06 10:04] LABS: Basophils # (A) 0.05 X 10*3/uL (0.00-0.10); Basophils % (A) 0.6 %; Eosinophils # (A) 0.34 X 10*3/uL (0.04-0.35); Eosinophils % (A) 4.4 %; Lymphocytes % (A) 21.8 %; Monocytes # (A) 0.74 X 10*3/uL (0.20-1.00); Monocytes % (A) 9.5 %; Neutrophils # (A) 4.92 X 10*3/uL (1.80-7.70); Neutrophils % (A) 63.1 %
--- NOTE | 2024-04-06 11:08 | P.PN ---
Subjective Progress Note Date: 04/06/24 CHIEF COMPLAINT: Cholecystitis HISTORY OF PRESENT ILLNESS: Patient is status post laparoscopic cholecystectomy on March 21, 2024. patient continues to have ascites fluid drainage from the old SALVADOR drain site. tolerating diet. Denies any abdominal pain. Denies any nausea vomiting. Afebrile.sodium 124 Patient seen and examined with Dr. diaz PHYSICAL EXAM: VITAL SIGNS: Reviewed. GENERAL: Well-developed in no acute distress. ABDOMEN: Soft. ascites fluid draining at all SALVADOR drain site NEUROLOGIC: Alert and oriented. Cranial nerves II through XII grossly intact. ASSESSMENT: 1. Cholecystitisstatus post lap satish 2. Ascites fluid leaking from SALVADOR drain site due to chronic liver cirrhosis from ETOH use 3. Hyponatremia PLAN: -no surgical intervention planned -recommend transfer due to continuous ascites drainage from SALVADOR drain site -Continue medical management -Hyponatremia management per nephrology Physician Wind Tunnel Engineer note has been reviewed by physician. Signing provider agrees with the documented findings, assessment, and plan of care. Objective - Vital Signs Vital signs: Vital Signs Temp 97.9 F 04/06/24 08:11 Pulse 108 H 04/06/24 08:32 Resp 18 04/06/24 08:11 BP 96/58 04/06/24 08:11 Pulse Ox 100 04/06/24 08:11 FiO2 Intake & Output 04/05/24 04/06/24 04/06/24 18:59 06:59 18:59 Intake Total 1374 120 Output Total 2800 1100 Balance -2800 1374 -980 Weight 113.8 kg Intake: Oral 1374 120 Output: Drainage 2800 1100 Right Abdomen 2800 1100 Other: Voiding Method Toilet Toilet # Voids 5 3 - Labs CBC & Chem 7: 04/06/24 05:15 04/06/24 05:15 Labs: Abnormal Lab Results - Last 24 Hours (Table) 04/05/24 04/05/24 04/06/24 Range/Units 14:44 20:42 05:15 RBC (4.10-5.20) X 10*6/uL Hgb (12.0-15.0) g/dL Hct (37.2-46.3) % RDW (11.5-14.5) % Plt Count (140-440) X 10*3/uL MPV (9.5-12.2) FL Immature Gran # (0.00-0.04) X 10*3/uL Sodium 122 L 122 L 124 L (137-145) mmol/L Carbon Dioxide 18.0 L (21.6-31.8) mmol/L Calcium 7.7 L (8.7-10.3) mg/dL AST 42 H (13-35) U/L Total Protein 4.1 L (6.2-8.2) g/dL Albumin 2.4 L (3.8-4.9) g/dL Albumin/Globulin Ratio 1.41 L (1.60-3.17) Ratio 04/06/24 Range/Units 05:15 RBC 2.93 L (4.10-5.20) X 10*6/uL Hgb 9.1 L (12.0-15.0) g/dL Hct 28.2 L (37.2-46.3) % RDW 16.9 H (11.5-14.5) % Plt Count 92 L (140-440) X 10*3/uL MPV 13.1 H (9.5-12.2) FL Immature Gran # 0.05 H (0.00-0.04) X 10*3/uL Sodium (137-145) mmol/L Carbon Dioxide (21.6-31.8) mmol/L Calcium (8.7-10.3) mg/dL AST (13-35) U/L Total Protein (6.2-8.2) g/dL Albumin (3.8-4.9) g/dL Albumin/Globulin Ratio (1.60-3.17) Ratio
--- NOTE | 2024-04-06 12:36 | P.PN ---
Subjective Patient is seen for follow-up for hyponatremia. Serum sodium had improved to 128 but staying around 124 status post samsca and maintained on sodium chloride tablets along with sodium bicarb. no significant complaints. paracentesis was not performed yesterday as there was not much fluid noted on ultrasound. Patient however continues to have significant ascitic fluid drainage, 2.8 L charted for 24 hours. Objective - Vital Signs Vital signs: Vital Signs Temp 97.6 F 04/06/24 12:18 Pulse 86 04/06/24 12:18 Resp 18 04/06/24 12:18 BP 90/55 04/06/24 12:18 Pulse Ox 99 04/06/24 12:18 FiO2 Intake & Output 04/05/24 04/06/24 04/06/24 18:59 06:59 18:59 Intake Total 1374 120 Output Total 2800 1100 Balance -2800 1374 -980 Weight 113.8 kg Intake: Oral 1374 120 Output: Drainage 2800 1100 Right Abdomen 2800 1100 Other: Voiding Method Toilet Toilet Toilet # Voids 5 3 - Exam Patient is awake, comfortable, no acute distress. Examination of the heart S1 and S2 Examination of the lungs bilateral breath sounds are heard Abdomen is soft distended with drainage of ascitic fluid noted. Examination lower extremity shows 1+ edema FICTION AND NONFICTION AUTHOR exam grossly intact - Labs CBC & Chem 7: 04/06/24 05:15 04/06/24 05:15 Labs: Abnormal Lab Results - Last 24 Hours (Table) 04/05/24 04/05/24 04/06/24 Range/Units 14:44 20:42 05:15 RBC (4.10-5.20) X 10*6/uL Hgb (12.0-15.0) g/dL Hct (37.2-46.3) % RDW (11.5-14.5) % Plt Count (140-440) X 10*3/uL MPV (9.5-12.2) FL Immature Gran # (0.00-0.04) X 10*3/uL Sodium 122 L 122 L 124 L (137-145) mmol/L Carbon Dioxide 18.0 L (21.6-31.8) mmol/L Calcium 7.7 L (8.7-10.3) mg/dL AST 42 H (13-35) U/L Total Protein 4.1 L (6.2-8.2) g/dL Albumin 2.4 L (3.8-4.9) g/dL Albumin/Globulin Ratio 1.41 L (1.60-3.17) Ratio 04/06/24 Range/Units 05:15 RBC 2.93 L (4.10-5.20) X 10*6/uL Hgb 9.1 L (12.0-15.0) g/dL Hct 28.2 L (37.2-46.3) % RDW 16.9 H (11.5-14.5) % Plt Count 92 L (140-440) X 10*3/uL MPV 13.1 H (9.5-12.2) FL Immature Gran # 0.05 H (0.00-0.04) X 10*3/uL Sodium (137-145) mmol/L Carbon Dioxide (21.6-31.8) mmol/L Calcium (8.7-10.3) mg/dL AST (13-35) U/L Total Protein (6.2-8.2) g/dL Albumin (3.8-4.9) g/dL Albumin/Globulin Ratio (1.60-3.17) Ratio Assessment and Plan Assessment: 1. Hyponatremia associated with liver cirrhosis. Status post 3% saline as sodium had not improved with diuretics or normal saline. Sodium improved to 133 and has dropped again to 123-124 . TSH normal. Urine sodium less than 20. Urine osmolality 755 and 335. Cortisol level 10, adrenal insufficiency ruled out by cosyntropin stimulation test. Sodium chloride tabs will be discontinued secondary to significant hypervolemia. 2. History of alcohol abuse. 3. History of liver cirrhosis. 4. Hypomagnesemia from diuresis and GI losses. Replaced. Better. 5. Status post laparoscopic cholecystectomy March 21, 2024. 6. Nongap metabolic acidosis from GI losses. On oral bicarb. Plan: continue with fluid restriction DC sodium chloride tabs due to significant hypervolemia. Serum sodium always drops with IV Lasix, therefore currently not maintained on Lasix. Serum sodium will likely stay around 124 for now. Repeat sodium later today.
[2024-04-06] MEDS: SODIUM CHLORIDE 0.9% 1,000 ML IV SCH (16:35)
[2024-04-06] MEDS: FUROSEMIDE 20 MG TAB PO STA (17:31)
--- NOTE | 2024-04-06 22:17 | P.PN ---
Subjective Progress Note Date: 04/06/24 Patient is a 44-year-old white female with past medical story significant for COPD, alcoholism, liver cirrhosis, ascites with previous paracentesis, esophageal varices, gastric ulcer, and previous GI bleed. Last drink was reportedly 1 month ago. Of note, patient did have a recent esophagogastroduodenoscopy on 02/19/2024 she was found to have a 5 mm antral ulcer with no active bleeding, small distal esophageal varices and mild to moderate gastritis. She did have a HIDA scan on 02/23/2024. she was brought in for a laparoscopic cholecystectomy, which was reportedly done on March,. No perioperative complications reported. Postoperatively, the patient was recovering on the medical surgical unit. She is tolerating her diet. She was noted to have copious serous output from her SALVADOR drain. In fact, a total of 2.4 L has drained so far in the last 24 hours. She was also being diuresed with Lasix. Subsequently, became hyponatremic, sodium was as low as 116. Nephrology recommended starting 3% hypertonic saline, which required transfer the patient to the intensive care unit for monitoring. Patient is currently sitting up in bed, on room air, in no acute distress. No signs of alcohol withdrawal. Lasix has been stopped. She continues to have significant amount of serous drainage f rom a prior drain site, however, her SALVADOR drain has been removed. She has abdominal ascites. No cognitive symptoms. No confusion/AMS, headache, seizures. Hypertonic saline is currently infusing at 25 mL/h. Current sodium is 119, with a goal of 120 mmol/L. Nephrology is managing. Remaining labs include a CBC with a WBC count 17.2, hemoglobin 10, hematocrit 31, platelets 133. BMP: Sodium 119, potassium 4.2, chloride 96, serum bicarb 16, BUN 15, creatinine 0.79, glucose 103. Most recent LFTs unremarkable. Total bili 1.7. Ammonia 37. Has remained afebrile. Heart rhythm appears sinus tachycardia on bedside monitor with a heart rate of 112 beats per minutes, blood pressure stable at 103/53 mmHg. Hemodynamics are stable. Progress note dated March 29, 2024. 44-year-old female with a significant past medical history as noted above. The patient is seen in the intensive care unit, room 262. She remains on room air. She is receiving 3% saline as per nephrology, at 35 cc an hour. Today's sodium was 122. Clinically she is very stable. Current laboratory data includes a white count 11.9, hemoglobin 9.6, hematocrit 31.2, and a platelet count of 118,000. Sodium 122, potassium 4.5, chlorides 102, CO2 16, BUN 18, creatinine 0.71. TSH is 1.80. No significant pathology is noted on abdominal ultrasound. Progress note dated March 30, 2024. 44-year-old female seen in room 262. The patient continues on room air. She is getting 3% saline at 35 cc an hour. Her sodium today was 124. The patient appears to be doing relatively well. She still has significant drainage, from the incision, on the abdomen. White count was 10.7, hemoglobin 9.3, hematocrit 30, platelet count 108,000. Sodium 126, potassium 4.6, chlorides 105, CO2 19, BUN 20, creatinine 0.71. Glucose is 105. Calcium is 7.7. Albumin is 2.0. Ammonia level is 60. Progress note dated March 31, 2024. 44-year-old female seen again in room 262. Currently, she is on room air. She is not receiving any IV fluids. Over the last few days, she has been on 3% saline. Today's sodium is 125. Labs include a white count 10.8, hemoglobin 9.6, hematocrit 30.6, and a platelet count of 103,000. Sodium 125, potassium 4.7, chlorides 102, CO2 19, BUN 19, and creatinine 0.86. Progress note dated April 01, 2024. 44-year-old female seen in the intensive care unit, room 262. Unfortunately, the patient sodium has dropped, down to 122, and she was started back on 3% saline at 35 cc an hour. She appears to have a resistant hyponatremia. Other than that, the patient is doing well. She is not requiring any supplemental oxygen. She had an uneventful night. Current labs include a sodium now down to 120, the rest of the electrolyte profile from this morning shows a potassium 4.5, chloride 99, CO2 18, BUN 19, creatinine 0.93. Calcium is 8.0. Progress note dated April 02, 2024. 44-year-old female seen in the intensive care unit, for hyponatremia. The patient is seen today in room 262. The patient is on room air. The patient is getting 3% saline at 40 cc an hour. This morning sodium level is 125. Additional laboratory data includes a white count 6.7, hemoglobin 9.3, hematocrit 30.1, and platelet count 83,000. Sodium 125, potassium 4.3, chlorides 106, CO2 16, BUN 17, creatinine 0.85. Glucose is 100. Albumin is 2.2. The urine specimen from March 30 shows evidence of Enterococcus faecium and Hafnia alvei. The patient is currently not on any antibiotics. I am sure the primary will likely consult infectious diseases. Progress note dated April 03, 2024. 44-year-old female seen in the intensive care unit. The patient is on room air. Sodium this morning was 124. It had been up to 133. The patient is not receiving any IV fluids. Laboratory data includes a white count 7.3, hemoglobin 9.3, hematocrit 30.5, and a platelet count of 103,000. Sodium 124, potassium 4.4, chlorides 102, CO2 20, BUN 17, creatinine 1.02. The patient is very clinically stable. The patient is able to move out of the intensive care unit. Progress note dated April 04, 2024. 44-year-old female seen in the intensive care unit, room 262. Today sodium is 124. She is on room air. Her saline IV is running at 10 cc an hour. The patient is waiting for a bed on the general medical floor. She had an uneventful night. She is awake and alert, without any complaints or symptoms. White count is 8.5, hemoglobin 9.8, hematocrit 31.6, platelet 89,000. Sodium 124, potassium 4.4, chlorides 105, CO2 14, BUN 15, creatinine 0.84. On today's evaluation of 04/05/2024, the patient is being seen for a follow-up. Patient continues to have a leak from the previous i insert the SALVADOR drain site and the patient has produced around 500 cc of ascitic fluid since grain handler. Meanwhile, the patient was seen by interventional radiology and there was no sizable ascitic fluid to drain based on their evaluation. Abdomen is nondistended. She has no nausea or vomiting. Abdominal pain. No abdominal tenderness. She is off hypertonic saline and sodium level is up to 123. She is known to have liver cirrhosis secondary to alcoholism. Her platelet count is at 76 with a hemoglobin of 8.8 and a white cell count of 7.1. Rest of the electrolytes show a component of non-anion gap metabolic acidosis with a serum bicarb of 14.9. She remains on midodrine. She remains on oral bicarb and oral sodium tablets. Nephrology is on the case. General surgery is on the case. No signs of any encephalopathy at this point in time. Noted patient received Samsca. She is currently off hypertonic saline solution. On 04/06/2024, the patient continues to have leak from the SALVADOR puncture site postcholecystectomy. She is producing more than a liter of ascitic fluid collecting in the colostomy bag. Awake and alert. No nausea vomiting. Abdominal pain. Was the cause of 7.8. Sodium levels at 124 with a BUN of 17 and a creatinine of 1.0. LFTs are within normal limits. Tolerating diet. Currently on Symbicort and DuoNeb nebulized treatments [id number]. Remains on Seroquel, salt tablets, bicarb tablets. She is known to have chronic liver cirrhosis with secondary ascites. She underwent a cholecystectomy complicated by ongoing ascitic fluid drainage from the SALVADOR puncture sites. Objective - Vital Signs Vital signs: Vital Signs Temp 97.6 F 04/06/24 12:18 Pulse 86 04/06/24 12:18 Resp 18 04/06/24 12:18 BP 90/55 04/06/24 12:18 Pulse Ox 99 04/06/24 12:18 FiO2 Intake & Output 04/05/24 04/06/24 04/06/24 18:59 06:59 18:59 Intake Total 1374 120 Output Total 2800 1100 Balance -2800 1374 -980 Weight 113.8 kg Intake: Oral 1374 120 Output: Drainage 2800 1100 Right Abdomen 2800 1100 Other: Voiding Method Toilet Toilet Toilet # Voids 5 3 - Exam No acute distress, oriented 3. The patient is currently on room air. HEENT examination is grossly unremarkable. Mucous membranes are moist. No oral lesions. Neck supple. Full range of motion. No adenopathy thyromegaly or neck vein distention. Cardiovascular examination reveals regular rhythm rate. S1-S2 normal. No S3 or S4. No discernible murmur noted. Heart sounds are distant. Lungs reveal clear breath sounds. Breath sounds are equal bilaterally. No adventitious lung sounds including wheezes rhonchi or crackles. Abdomen soft bowel sounds are heard. No masses or tenderness. The patient is leaking ascitic fluid from the SALVADOR drain insertion site in the right upper quadrant. The rest of the surgical wound site is dry clean and intact. No direct emergency monitors or guarding. Extremities are intact. No cyanosis clubbing or edema. Skin is without rash or lesion. Neurologic examination is brief but nonfocal. - Labs CBC & Chem 7: 04/06/24 05:15 04/06/24 15:22 Labs: Abnormal Lab Results - Last 24 Hours (Table) 04/05/24 04/05/24 04/06/24 Range/Units 14:44 20:42 05:15 RBC (4.10-5.20) X 10*6/uL Hgb (12.0-15.0) g/dL Hct (37.2-46.3) % RDW (11.5-14.5) % Plt Count (140-440) X 10*3/uL MPV (9.5-12.2) FL Immature Gran # (0.00-0.04) X 10*3/uL Sodium 122 L 122 L 124 L (137-145) mmol/L Carbon Dioxide 18.0 L (21.6-31.8) mmol/L Calcium 7.7 L (8.7-10.3) mg/dL AST 42 H (13-35) U/L Total Protein 4.1 L (6.2-8.2) g/dL Albumin 2.4 L (3.8-4.9) g/dL Albumin/Globulin Ratio 1.41 L (1.60-3.17) Ratio 04/06/24 Range/Units 05:15 RBC 2.93 L (4.10-5.20) X 10*6/uL Hgb 9.1 L (12.0-15.0) g/dL Hct 28.2 L (37.2-46.3) % RDW 16.9 H (11.5-14.5) % Plt Count 92 L (140-440) X 10*3/uL MPV 13.1 H (9.5-12.2) FL Immature Gran # 0.05 H (0.00-0.04) X 10*3/uL Sodium (137-145) mmol/L Carbon Dioxide (21.6-31.8) mmol/L Calcium (8.7-10.3) mg/dL AST (13-35) U/L Total Protein (6.2-8.2) g/dL Albumin (3.8-4.9) g/dL Albumin/Globulin Ratio (1.60-3.17) Ratio Assessment and Plan Plan: Hyponatremia, multifactorial. The patient is known to have liver cirrhosis/alcoholic in nature and the patient also may have a component of postop SIADH. Treated with hypertonic saline. Received Samsca. Sodium level is stable and there is no signs of encephalopathy. The sodium level today is at 124. S nephrology on the case. Liver cirrhosis History of ascites S/P operative day # 16, following a laparoscopic cholecystectomy. Ongoing leak from the SALVADOR drain site Non-anion gap metabolic acidosis. Serum bicarb is at 18 and the patient has gotten oral bicarb Sinus tachycardia. Macrocytic anemia. Alcoholic liver disease and abdominal ascites. History of GI bleed status post esophagogastroduodenoscopy on 02/19/2024. History of esophageal varices. History of mild to moderate gastritis and 5 mm antral gastric ulcer . History of alcoholism, last drink reportedly 1 month ago. Chronic obstructive pulmonary disease, stable. Chronic ongoing tobacco dependence. History of bipolar disorder. Chronic thrombocytopenia Plan Fluid restriction Monitor sodium level Monitor output from the SALVADOR insertion site which is constantly leaking ascitic fluid and a colostomy bag has been applied to the site No evidence of any ascites to drain based on IR evaluation Continue oral salt tablets Continue oral bicarb Continue to follow
--- NOTE | 2024-04-07 00:28 | PN ---
PROGRESS NOTE The patient is still with hyponatremia, still has some ascitic fluid coming out of the right J-tube bag. Hemoglobin is stable at 9.1, white count 7.4. Sodium remains low at 120. Waiting for Nephrology to treat this. Currently, sodium is around 120, on sodium bicarb and sodium chloride tabs. She has ascitic fluid drainage 2.8 L for 24 hours. OBJECTIVE: GENERAL: She is alert, comfortable, in no acute distress. HEART: S1 and S2. LUNGS: Decreased breath sounds. ABDOMEN: Soft, 1 to 2+ edema. Hyponatremia secondary to liver cirrhosis. Urine sodium is less than 20. Urine osmolality is 75 and 335. Cortisol level of 10. Adrenal insufficiency ruled out by the Cosyntropin stimulation test. Sodium chloride discontinued secondary to significant hypervolemia. Alcohol cirrhosis; hypomagnesemia; metabolic acidosis, on oral bicarb; fluid restriction. No Lasix will be given. Repeat sodium later today in the morning. PROGNOSIS: Guarded. MMODL / IJN: [id number] /
[2024-04-07 07:45] VITALS: RESP 16
[2024-04-07 09:01] LABS: ALT 29 U/L (8-44); AST 50 U/L (13-35); Albumin 2.4 g/dL (3.8-4.9); Albumin/Globulin Ratio 1.41 Ratio (1.60-3.17); Alkaline Phosphatase 101 U/L (41-126); BUN/Creat Ratio 17.64 Ratio (12.00-20.00); Blood Urea Nitrogen 19.4 mg/dL (9.0-27.0); Calcium 7.7 mg/dL (8.7-10.3); Carbon Dioxide 16.7 mmol/L (21.6-31.8); Chloride 96 mmol/L (96-109); Globulin 1.7 g/dL (1.6-3.3); Glucose 119 mg/dL (70-110); Potassium 4.7 mmol/L (3.5-5.5); Sodium 122 mmol/L (135-145); Total Bilirubin 0.8 mg/dL (0.3-1.2); Total Protein 4.1 g/dL (6.2-8.2)
[2024-04-07 09:05] LABS: Basophils # (A) 0.04 X 10*3/uL (0.00-0.10); Basophils % (A) 0.4 %; Eosinophils # (A) 0.37 X 10*3/uL (0.04-0.35); Eosinophils % (A) 3.9 %; HCT 27.9 % (37.2-46.3); HGB 8.9 g/dL (12.0-15.0); Lymphocytes # (A) 1.74 X 10*3/uL (0.90-5.00); Lymphocytes % (A) 18.2 %; MCH 30.9 pg (27.0-32.0); MCHC 31.9 g/dL (32.0-37.0); MCV 96.9 FL (80.0-97.0); Mean Platelet Volume 12.8 FL (9.5-12.2); Monocytes # (A) 0.73 X 10*3/uL (0.20-1.00); Monocytes % (A) 7.6 %; NRBC Per 100 WBC 0 X 10*3/uL (0.00-0.01); Neutrophils % (A) 69.1 %; Platelet Count 102 X 10*3/uL (140-440); RBC 2.88 X 10*6/uL (4.10-5.20); RDW 17.1 % (11.5-14.5); WBC 9.56 X 10*3/uL (4.50-10.00)
[2024-04-07] MEDS: MIDODRINE 5 MG TAB PO SCH (10:46)
[2024-04-07] MEDS: SODIUM CHLORIDE 0.9% 1,000 ML IV SCH (10:47)
[2024-04-07] MEDS: MIDODRINE 5 MG TAB PO ONE (12:15)
[2024-04-07] MEDS: FUROSEMIDE 10 MG/ML 2 ML VIAL IV SCH (12:16)
--- NOTE | 2024-04-07 12:51 | P.PN ---
Subjective Patient is seen for follow-up for hyponatremia. Serum sodium had improved to 128 post 3% saline but staying around 124-122 now status post samsca and maintained on sodium chloride tablets along with sodium bicarb. Sodium chloride tabs were discontinued yesterday due to hypervolemia. Patient received IV Lasix with small amount of normal saline and sodium improved to 122 this morning. Patient states her swelling is slightly improved. Abdominal distention is also slightly better. It appears that the output from the abdomen has also decreased to some degree. Objective - Vital Signs Vital signs: Vital Signs Temp 97.8 F 04/07/24 07:04 Pulse 112 H 04/07/24 12:04 Resp 16 04/07/24 07:04 BP 91/58 04/07/24 12:04 Pulse Ox 99 04/07/24 07:04 FiO2 Intake & Output 04/06/24 04/07/24 04/07/24 18:59 06:59 18:59 Intake Total 542 800 Output Total 3428 1250 600 Balance -2886 -450 -600 Intake: Oral 542 800 Output: Drainage 2575 1250 600 Right Abdomen 2575 1250 600 Post Void Residual 853 Other: Voiding Method Toilet Toilet # Voids 6 1 - Exam Patient is awake, comfortable, no acute distress. Examination of the heart S1 and S2 Examination of the lungs bilateral breath sounds are heard Abdomen is soft distended with drainage of ascitic fluid noted. 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 - Labs CBC & Chem 7: 04/07/24 04:57 04/07/24 04:57 Labs: Abnormal Lab Results - Last 24 Hours (Table) 04/06/24 04/06/24 04/07/24 Range/Units 15:22 21:47 04:57 RBC 2.88 L (4.10-5.20) X 10*6/uL Hgb 8.9 L (12.0-15.0) g/dL Hct 27.9 L (37.2-46.3) % MCHC 31.9 L (32.0-37.0) g/dL RDW 17.1 H (11.5-14.5) % Plt Count 102 L (140-440) X 10*3/uL MPV 12.8 H (9.5-12.2) FL Immature Gran # 0.08 H (0.00-0.04) X 10*3/uL Eosinophils # 0.37 H (0.04-0.35) X 10*3/uL Sodium 120 L 120 L (137-145) mmol/L Carbon Dioxide (21.6-31.8) mmol/L Glucose (70-110) mg/dL Calcium (8.7-10.3) mg/dL AST (13-35) U/L Total Protein (6.2-8.2) g/dL Albumin (3.8-4.9) g/dL Albumin/Globulin Ratio (1.60-3.17) Ratio 04/07/24 Range/Units 04:57 RBC (4.10-5.20) X 10*6/uL Hgb (12.0-15.0) g/dL Hct (37.2-46.3) % MCHC (32.0-37.0) g/dL RDW (11.5-14.5) % Plt Count (140-440) X 10*3/uL MPV (9.5-12.2) FL Immature Gran # (0.00-0.04) X 10*3/uL Eosinophils # (0.04-0.35) X 10*3/uL Sodium 122 L (137-145) mmol/L Carbon Dioxide 16.7 L (21.6-31.8) mmol/L Glucose 119 H (70-110) mg/dL Calcium 7.7 L (8.7-10.3) mg/dL AST 50 H (13-35) U/L Total Protein 4.1 L (6.2-8.2) g/dL Albumin 2.4 L (3.8-4.9) g/dL Albumin/Globulin Ratio 1.41 L (1.60-3.17) Ratio Assessment and Plan Assessment: 1. Hyponatremia associated with liver cirrhosis. Status post 3% saline as sodium had not improved with diuretics or normal saline. Sodium improved to 133with 3% saline and has dropped again to 123-124 . TSH normal. Urine sodium less than 20. Urine osmolality 755 and 335. Cortisol level 10, adrenal insufficiency ruled out by cosyntropin stimulation test. Sodium chloride tabs discontinued secondary to significant hypervolemia. 2. History of alcohol abuse. 3. History of liver cirrhosis. 4. Hypomagnesemia from diuresis and GI losses. Replaced. Better. 5. Status post laparoscopic cholecystectomy March 21, 2024. 6. Nongap metabolic acidosis from GI losses. On oral bicarb. Plan: continue with fluid restriction continue off of sodium chloride tabs due to hypervolemia. Attempt to diurese again with small amount of normal saline. Serum sodium improved to 122 today. Patient can likely be discharged tomorrow. Her serum sodium appears to stay around 120-122
--- NOTE | 2024-04-07 13:14 | P.PN ---
Subjective Progress Note Date: 04/07/24 CHIEF COMPLAINT: Cholecystitis HISTORY OF PRESENT ILLNESS: Patient is status post laparoscopic cholecystectomy on March 21, 2024. Patient continues to have ascites fluid drainage from the old SALVADOR drain site. tolerating diet. Denies any abdominal pain. Denies any nausea vomiting. Afebrile.sodium 122. Nephrology has started patient on IV Lasix. Patient seen and examined with Dr. diaz PHYSICAL EXAM: VITAL SIGNS: Reviewed. GENERAL: Well-developed in no acute distress. ABDOMEN: Soft. ascites fluid draining at all SALVADOR drain site NEUROLOGIC: Alert and oriented. Cranial nerves II through XII grossly intact. ASSESSMENT: 1. Cholecystitisstatus post lap satish 2. Ascites fluid leaking from SALVADOR drain site due to chronic liver cirrhosis from ETOH use 3. Hyponatremia PLAN: -no surgical intervention planned -recommend transfer to tertiary care facility for patient to be seen by GI service due to continuous ascites drainage from SALVADOR drain site due to liver cirrhosis -Continue medical management -Hyponatremia management per nephrology Physician Clerical Coordinator note has been reviewed by physician. Signing provider agrees with the documented findings, assessment, and plan of care. Objective - Vital Signs Vital signs: Vital Signs Temp 97.8 F 04/07/24 07:04 Pulse 112 H 04/07/24 12:04 Resp 16 04/07/24 07:04 BP 91/58 04/07/24 12:04 Pulse Ox 99 04/07/24 07:04 FiO2 Intake & Output 04/06/24 04/07/24 04/07/24 18:59 06:59 18:59 Intake Total 542 800 Output Total 3428 1250 600 Balance -2886 -450 -600 Intake: Oral 542 800 Output: Drainage 2575 1250 600 Right Abdomen 2575 1250 600 Post Void Residual 853 Other: Voiding Method Toilet Toilet # Voids 6 1 - Labs CBC & Chem 7: 04/07/24 04:57 04/07/24 04:57 Labs: Abnormal Lab Results - Last 24 Hours (Table) 04/06/24 04/06/24 04/07/24 Range/Units 15:22 21:47 04:57 RBC 2.88 L (4.10-5.20) X 10*6/uL Hgb 8.9 L (12.0-15.0) g/dL Hct 27.9 L (37.2-46.3) % MCHC 31.9 L (32.0-37.0) g/dL RDW 17.1 H (11.5-14.5) % Plt Count 102 L (140-440) X 10*3/uL MPV 12.8 H (9.5-12.2) FL Immature Gran # 0.08 H (0.00-0.04) X 10*3/uL Eosinophils # 0.37 H (0.04-0.35) X 10*3/uL Sodium 120 L 120 L (137-145) mmol/L Carbon Dioxide (21.6-31.8) mmol/L Glucose (70-110) mg/dL Calcium (8.7-10.3) mg/dL AST (13-35) U/L Total Protein (6.2-8.2) g/dL Albumin (3.8-4.9) g/dL Albumin/Globulin Ratio (1.60-3.17) Ratio 04/07/ Range/Units 04:57 RBC (4.10-5.20) X 10*6/uL Hgb (12.0-15.0) g/dL Hct (37.2-46.3) % MCHC (32.0-37.0) g/dL RDW (11.5-14.5) % Plt Count (140-440) X 10*3/uL MPV (9.5-12.2) FL Immature Gran # (0.00-0.04) X 10*3/uL Eosinophils # (0.04-0.35) X 10*3/uL Sodium 122 L (137-145) mmol/L Carbon Dioxide 16.7 L (21.6-31.8) mmol/L Glucose 119 H (70-110) mg/dL Calcium 7.7 L (8.7-10.3) mg/dL AST 50 H (13-35) U/L Total Protein 4.1 L (6.2-8.2) g/dL Albumin 2.4 L (3.8-4.9) g/dL Albumin/Globulin Ratio 1.41 L (1.60-3.17) Ratio
--- NOTE | 2024-04-07 14:52 | PN ---
PROGRESS NOTE ADDENDUM: This is a 44-year-old white female. The patient's blood pressure is in the 80s systolic and she cannot support IV Lasix to that extent. Her creatinine is getting worse to hepatorenal failure, so I will stop the Lasix due to severe hypotension, possibly increase midodrine dose. Prognosis is guarded. Her ascitic fluid is slow anyways. Ultrasound shows no severe specific fluid. She can stay and see GI next week or I can transfer her down, but she says her ascitic fluid drainage is less than it was prior. She is slowly getting better, so her main thing is sodium up a little, but I would not give her Lasix every 8 hours for sure hepatorenal failure. Prognosis is guarded. IZABELA / ROXYN: [id number] /
--- NOTE | 2024-04-07 15:36 | P.PN ---
Subjective Progress Note Date: 04/06/24 Principal diagnosis: Reason for follow-up is Enterococcus urinary tract infection Patient is a 44-year-old with a past medical history significant for female reflux cirrhosis of the liver from alcoholism status post laparoscopic cholecystectomy during this admission also have a positive urine culture for Enterococcus faecium prompted this consultation. On today's evaluation that is 04/06/2024, patient has been afebrile, patient is breathing comfortably and is currently on room air, patient denies having any significant cough no chest pain shortness of breath, patient denies nausea vomiting or diarrhea still have some drainage from the one of the incision but denies any worsening abdominal pain. Patient white count 7.80, creatinine 1.0 Objective - Vital Signs Vital signs: Vital Signs Temp 97.6 F 04/06/24 12:18 Pulse 86 04/06/24 12:18 Resp 18 04/06/24 12:18 BP 90/55 04/06/24 12:18 Pulse Ox 99 04/06/24 12:18 FiO2 Intake & Output 04/05/24 04/06/24 04/06/24 18:59 06:59 18:59 Intake Total 1374 120 Output Total 2800 1575 Balance -2800 1374 -1455 Weight 113.8 kg Intake: Oral 1374 120 Output: Drainage 2800 1575 Right Abdomen 2800 1575 Other: Voiding Method Toilet Toilet Toilet # Voids 5 3 - Exam GENERAL DESCRIPTION: Middle-age female lying in bed in no distress RESPIRATORY SYSTEM: Unlabored breathing , decreased breath sounds at bases HEART: S1 S2 regular rate and rhythm , ABDOMEN: Soft , no tenderness EXTREMITIES: No edema feet - Labs CBC & Chem 7: 04/07/24 04:57 04/07/24 04:57 Labs: Abnormal Lab Results - Last 24 Hours (Table) 04/05/24 04/05/24 04/06/24 Range/Units 14:44 20:42 05:15 RBC (4.10-5.20) X 10*6/uL Hgb (12.0-15.0) g/dL Hct (37.2-46.3) % RDW (11.5-14.5) % Plt Count (140-440) X 10*3/uL MPV (9.5-12.2) FL Immature Gran # (0.00-0.04) X 10*3/uL Sodium 122 L 122 L 124 L (137-145) mmol/L Carbon Dioxide 18.0 L (21.6-31.8) mmol/L Calcium 7.7 L (8.7-10.3) mg/dL AST 42 H (13-35) U/L Total Protein 4.1 L (6.2-8.2) g/dL Albumin 2.4 L (3.8-4.9) g/dL Albumin/Globulin Ratio 1.41 L (1.60-3.17) Ratio 04/06/24 Range/Units 05:15 RBC 2.93 L (4.10-5.20) X 10*6/uL Hgb 9.1 L (12.0-15.0) g/dL Hct 28.2 L (37.2-46.3) % RDW 16.9 H (11.5-14.5) % Plt Count 92 L (140-440) X 10*3/uL MPV 13.1 H (9.5-12.2) FL Immature Gran # 0.05 H (0.00-0.04) X 10*3/uL Sodium (137-145) mmol/L Carbon Dioxide (21.6-31.8) mmol/L Calcium (8.7-10.3) mg/dL AST (13-35) U/L Total Protein (6.2-8.2) g/dL Albumin (3.8-4.9) g/dL Albumin/Globulin Ratio (1.60-3.17) Ratio Assessment and Plan (1) Urinary tract infection Current Visit: Yes Status: Acute Code(s): N39.0 - URINARY TRACT INFECTION, SITE NOT SPECIFIED SNOMED Code(s): 57178681 (2) Penicillin allergy Current Visit: Yes Status: Acute Code(s): Z88.0 - ALLERGY STATUS TO PENICILLIN SNOMED Code(s): 57663655 Plan: 1patient with a positive urine culture with Enterococcus faecium and this patient did have a positive UA it is not very clear that the patient did have a Arias catheter during this admission however the patient has been in the hospital for almost 2 weeks prior to initial evaluation and did have a mild elevated white count and low-grade fever and urinary symptoms question of possible urine tract infection though the patient mention some improvement her symptoms without antibiotic specific for this pathogen 2-penicillin allergy that will limit the number of antibiotic safe to use 3-repeat UA is negative and urinary symptom has resolved we will discontinue Macrobid as well Dictation was produced using [employer] dictation software. please excuse any grammatical, word or spelling errors. Time with Patient: Less than 30
--- NOTE | 2024-04-07 15:42 | P.PN ---
Subjective Progress Note Date: 04/07/24 Patient is a 44-year-old white female with past medical story significant for COPD, alcoholism, liver cirrhosis, ascites with previous paracentesis, esophageal varices, gastric ulcer, and previous GI bleed. Last drink was reportedly 1 month ago. Of note, patient did have a recent esophagogastroduodenoscopy on 02/19/2024 she was found to have a 5 mm antral ulcer with no active bleeding, small distal esophageal varices and mild to moderate gastritis. She did have a HIDA scan on 02/23/2024. she was brought in for a laparoscopic cholecystectomy, which was reportedly done on March,. No perioperative complications reported. Postoperatively, the patient was recovering on the medical surgical unit. She is tolerating her diet. She was noted to have copious serous output from her SALVADOR drain. In fact, a total of 2.4 L has drained so far in the last 24 hours. She was also being diuresed with Lasix. Subsequently, became hyponatremic, sodium was as low as 116. Nephrology recommended starting 3% hypertonic saline, which required transfer the patient to the intensive care unit for monitoring. Patient is currently sitting up in bed, on room air, in no acute distress. No signs of alcohol withdrawal. Lasix has been stopped. She continues to have significant amount of serous drainage f rom a prior drain site, however, her SALVADOR drain has been removed. She has abdominal ascites. No cognitive symptoms. No confusion/AMS, headache, seizures. Hypertonic saline is currently infusing at 25 mL/h. Current sodium is 119, with a goal of 120 mmol/L. Nephrology is managing. Remaining labs include a CBC with a WBC count 17.2, hemoglobin 10, hematocrit 31, platelets 133. BMP: Sodium 119, potassium 4.2, chloride 96, serum bicarb 16, BUN 15, creatinine 0.79, glucose 103. Most recent LFTs unremarkable. Total bili 1.7. Ammonia 37. Has remained afebrile. Heart rhythm appears sinus tachycardia on bedside monitor with a heart rate of 112 beats per minutes, blood pressure stable at 103/53 mmHg. Hemodynamics are stable. Progress note dated March 29, 2024. 44-year-old female with a significant past medical history as noted above. The patient is seen in the intensive care unit, room 262. She remains on room air. She is receiving 3% saline as per nephrology, at 35 cc an hour. Today's sodium was 122. Clinically she is very stable. Current laboratory data includes a white count 11.9, hemoglobin 9.6, hematocrit 31.2, and a platelet count of 118,000. Sodium 122, potassium 4.5, chlorides 102, CO2 16, BUN 18, creatinine 0.71. TSH is 1.80. No significant pathology is noted on abdominal ultrasound. Progress note dated March 30, 2024. 44-year-old female seen in room 262. The patient continues on room air. She is getting 3% saline at 35 cc an hour. Her sodium today was 124. The patient appears to be doing relatively well. She still has significant drainage, from the incision, on the abdomen. White count was 10.7, hemoglobin 9.3, hematocrit 30, platelet count 108,000. Sodium 126, potassium 4.6, chlorides 105, CO2 19, BUN 20, creatinine 0.71. Glucose is 105. Calcium is 7.7. Albumin is 2.0. Ammonia level is 60. Progress note dated March 31, 2024. 44-year-old female seen again in room 262. Currently, she is on room air. She is not receiving any IV fluids. Over the last few days, she has been on 3% saline. Today's sodium is 125. Labs include a white count 10.8, hemoglobin 9.6, hematocrit 30.6, and a platelet count of 103,000. Sodium 125, potassium 4.7, chlorides 102, CO2 19, BUN 19, and creatinine 0.86. Progress note dated April 01, 2024. 44-year-old female seen in the intensive care unit, room 262. Unfortunately, the patient sodium has dropped, down to 122, and she was started back on 3% saline at 35 cc an hour. She appears to have a resistant hyponatremia. Other than that, the patient is doing well. She is not requiring any supplemental oxygen. She had an uneventful night. Current labs include a sodium now down to 120, the rest of the electrolyte profile from this morning shows a potassium 4.5, chloride 99, CO2 18, BUN 19, creatinine 0.93. Calcium is 8.0. Progress note dated April 02, 2024. 44-year-old female seen in the intensive care unit, for hyponatremia. The patient is seen today in room 262. The patient is on room air. The patient is getting 3% saline at 40 cc an hour. This morning sodium level is 125. Additional laboratory data includes a white count 6.7, hemoglobin 9.3, hematocrit 30.1, and platelet count 83,000. Sodium 125, potassium 4.3, chlorides 106, CO2 16, BUN 17, creatinine 0.85. Glucose is 100. Albumin is 2.2. The urine specimen from March 30 shows evidence of Enterococcus faecium and Hafnia alvei. The patient is currently not on any antibiotics. I am sure the primary will likely consult infectious diseases. Progress note dated April 03, 2024. 44-year-old female seen in the intensive care unit. The patient is on room air. Sodium this morning was 124. It had been up to 133. The patient is not receiving any IV fluids. Laboratory data includes a white count 7.3, hemoglobin 9.3, hematocrit 30.5, and a platelet count of 103,000. Sodium 124, potassium 4.4, chlorides 102, CO2 20, BUN 17, creatinine 1.02. The patient is very clinically stable. The patient is able to move out of the intensive care unit. Progress note dated April 04, 2024. 44-year-old female seen in the intensive care unit, room 262. Today sodium is 124. She is on room air. Her saline IV is running at 10 cc an hour. The patient is waiting for a bed on the general medical floor. She had an uneventful night. She is awake and alert, without any complaints or symptoms. White count is 8.5, hemoglobin 9.8, hematocrit 31.6, platelet 89,000. Sodium 124, potassium 4.4, chlorides 105, CO2 14, BUN 15, creatinine 0.84. On today's evaluation of 04/05/2024, the patient is being seen for a follow-up. Patient continues to have a leak from the previous i insert the SALVADOR drain site and the patient has produced around 500 cc of ascitic fluid since guard chief. Meanwhile, the patient was seen by interventional radiology and there was no sizable ascitic fluid to drain based on their evaluation. Abdomen is nondistended. She has no nausea or vomiting. Abdominal pain. No abdominal tenderness. She is off hypertonic saline and sodium level is up to 123. She is known to have liver cirrhosis secondary to alcoholism. Her platelet count is at 76 with a hemoglobin of 8.8 and a white cell count of 7.1. Rest of the electrolytes show a component of non-anion gap metabolic acidosis with a serum bicarb of 14.9. She remains on midodrine. She remains on oral bicarb and oral sodium tablets. Nephrology is on the case. General surgery is on the case. No signs of any encephalopathy at this point in time. Noted patient received Samsca. She is currently off hypertonic saline solution. On 04/06/2024, the patient continues to have leak from the SALVADOR puncture site postcholecystectomy. She is producing more than a liter of ascitic fluid collecting in the colostomy bag. Awake and alert. No nausea vomiting. Abdominal pain. Was the cause of 7.8. Sodium levels at 124 with a BUN of 17 and a creatinine of 1.0. LFTs are within normal limits. Tolerating diet. Currently on Symbicort and DuoNeb nebulized treatments [id number]. Remains on Seroquel, salt tablets, bicarb tablets. She is known to have chronic liver cirrhosis with secondary ascites. She underwent a cholecystectomy complicated by ongoing ascitic fluid drainage from the SALVADOR puncture sites. On today's evaluation of 04/07/2024, the patient has no specific complaints. Continues to have leak from the puncture site of the SALVADOR. Sodium level is also fluctuating and current level is at 122 and the patient was started on normal citrate of 50 cc an hour. Rest of the electrolytes show his component of the n egative metabolic acidosis with a serum bicarb of 16. BUN is 19 with a creatinine of 1.1. LFTs are unchanged. Hemoglobin is 8.9. No respiratory difficulties. No nausea vomiting or abdominal pain. She remains on room air oxygen. She is afebrile. Unfortunately, the patient is draining more than 1 L through the SALVADOR puncture site. Surgical wound site is dry clean and intact. Receiving IV iron for iron deficiency anemia. Objective - Vital Signs Vital signs: Vital Signs Temp 97.8 F 04/07/24 07:04 Pulse 108 H 04/07/24 08:18 Resp 16 04/07/24 07:04 BP 85/53 04/07/24 07:06 Pulse Ox 99 04/07/24 07:04 FiO2 Intake & Output 0904/07/24 04/07/24 18:59 06:59 18:59 Intake Total 542 800 Output Total 3428 1250 200 Balance -2886 -450 -200 Intake: Oral 542 800 Output: Drainage 2575 1250 200 Right Abdomen 2575 1250 200 Post Void Residual 853 Other: Voiding Method Toilet Toilet # Voids 6 1 - Exam No acute distress, oriented 3. The patient is currently on room air. HEENT examination is grossly unremarkable. Mucous membranes are moist. No oral lesions. Neck supple. Full range of motion. No adenopathy thyromegaly or neck vein distention. Cardiovascular examination reveals regular rhythm rate. S1-S2 normal. No S3 or S4. No discernible murmur noted. Heart sounds are distant. Lungs reveal clear breath sounds. Breath sounds are equal bilaterally. No adventitious lung sounds including wheezes rhonchi or crackles. Abdomen soft bowel sounds are heard. No masses or tenderness. The patient is leaking ascitic fluid from the SALVADOR drain insertion site in the right upper quadrant. The rest of the surgical wound site is dry clean and intact. No direct emergency monitors or guarding. Extremities are intact. No cyanosis clubbing or edema. Skin is without rash or lesion. Neurologic examination is brief but nonfocal. - Labs CBC & Chem 7: 04/07/24 04:57 04/07/24 04:57 Labs: Abnormal Lab Results - Last 24 Hours (Table) 04/06/24 04/06/24 04/07/24 Range/Units 15:22 21:47 04:57 RBC 2.88 L (4.10-5.20) X 10*6/uL Hgb 8.9 L (12.0-15.0) g/dL Hct 27.9 L (37.2-46.3) % MCHC 31.9 L (32.0-37.0) g/dL RDW 17.1 H (11.5-14.5) % Plt Count 102 L (140-440) X 10*3/uL MPV 12.8 H (9.5-12.2) FL Immature Gran # 0.08 H (0.00-0.04) X 10*3/uL Eosinophils # 0.37 H (0.04-0.35) X 10*3/uL Sodium 120 L 120 L (137-145) mmol/L Carbon Dioxide (21.6-31.8) mmol/L Glucose (70-110) mg/dL Calcium (8.7-10.3) mg/dL AST (13-35) U/L Total Protein (6.2-8.2) g/dL Albumin (3.8-4.9) g/dL Albumin/Globulin Ratio (1.60-3.17) Ratio // Range/Units 04:57 RBC (4.10-5.20) X 10*6/uL Hgb (12.0-15.0) g/dL Hct (37.2-46.3) % MCHC (32.0-37.0) g/dL RDW (11.5-14.5) % Plt Count (140-440) X 10*3/uL MPV (9.5-12.2) FL Immature Gran # (0.00-0.04) X 10*3/uL Eosinophils # (0.04-0.35) X 10*3/uL Sodium 122 L (137-145) mmol/L Carbon Dioxide 16.7 L (21.6-31.8) mmol/L Glucose 119 H (70-110) mg/dL Calcium 7.7 L (8.7-10.3) mg/dL AST 50 H (13-35) U/L Total Protein 4.1 L (6.2-8.2) g/dL Albumin 2.4 L (3.8-4.9) g/dL Albumin/Globulin Ratio 1.41 L (1.60-3.17) Ratio Assessment and Plan Plan: Hyponatremia, multifactorial. The patient is known to have liver cirrhosis/alcoholic in nature and the patient also may have a component of postop SIADH. Treated with hypertonic saline. Received Samsca. Sodium level is stable and there is no signs of encephalopathy. The sodium level today is at 122 after being dropped down to 120. The patient has had a normal sed rate of 50 per nephrology recommendation. Liver cirrhosis History of ascites S/P operative day # 17, following a laparoscopic cholecystectomy. Ongoing leak from the SALVADOR drain site Non-anion gap metabolic acidosis. Sinus tachycardia. Macrocytic anemia., Secondary to iron deficiency and the patient is currently on IV iron Alcoholic liver disease and abdominal ascites. History of GI bleed status post esophagogastroduodenoscopy on 02/19/2024. History of esophageal varices. History of mild to moderate gastritis and 5 mm antral gastric ulcer . History of alcoholism, last drink reportedly 1 month ago. Chronic obstructive pulmonary disease, stable. Chronic ongoing tobacco dependence. History of bipolar disorder. Chronic thrombocytopenia Plan Fluid restriction Monitor sodium level continue normal saline monitor sodium level Monitor output from the SALVADOR insertion site which is constantly leaking ascitic fluid and a colostomy bag has been applied to the site No evidence of any ascites to drain based on IR evaluation Continue oral bicarb Continue to follow
[2024-04-07] MEDS ORDERED: FUROSEMIDE 10 MG/ML 2 ML VIAL IV SCH (20:00)
--- NOTE | 2024-04-07 20:24 | PN ---
PROGRESS NOTE SUBJECTIVE: Seen by Surgery today as well as Dr. Shah. She is status post lap satish, ascites fluid leaking from the SALVADOR drain site due to chronic liver cirrhosis from alcohol abuse, hyponatremia. They want to recommend transfer to a tertiary center to see a GI doctor due to her nonstop SALVADOR drainage. Hyponatremia per Nephrology. Dr. Shah seen for hyponatremia. Recent sodium last night was 120. Swelling is minimally improved. Decreased ascitic fluid to some degree. OBJECTIVE: VITAL SIGNS: Temperature 97.8, pulse 112, respiratory rate 16 to 18, blood pressure 91/68, O2 of 99%. CARDIOVASCULAR: S1. S2. LUNGS: Transmitted upper sounds. GI: Soft. Hemoglobin is 8.9, sodium 122. Liver cirrhosis, hyponatremia, status post multiple treatments to get the sodium up. Alcohol abuse, liver cirrhosis, status post gallbladder surgery, hypomagnesium, status post lap satish. Fluid restriction. No sodium chloride. Sodium is improved to 122 today, possibly discharge tomorrow if sodium stays up. She went from 120 to 122 overnight. MMODL / IJN: [id number] /
[2024-04-07] MEDS: TOLVAPTAN 15 MG TABLET PO ONE (20:32)
[2024-04-07] MEDS: FUROSEMIDE 20 MG TAB PO STA (20:32)
[2024-04-08] MEDS: MIDODRINE 5 MG TAB PO SCH (06:28)
[2024-04-08] MEDS: SODIUM FERRIC GLUCONAT-SUCROSE 125 MG in SODIUM CHLORIDE 0.9% 100 ML IVPB SCH (08:21)
--- NOTE | 2024-04-08 08:33 | P.PN ---
Subjective Progress Note Date: 04/07/24 Principal diagnosis: Reason for follow-up is Enterococcus urinary tract infection Patient is a 44-year-old with a past medical history significant for female reflux cirrhosis of the liver from alcoholism status post laparoscopic cholecystectomy during this admission also have a positive urine culture for Enterococcus faecium prompted this consultation. On today's evaluation that is 04/07/2024, Patient is afebrile this morning patient denies having any chest pain shortness of breath or cough, the patient is breathing comfortably and currently on room air, patient denies any worsening abdominal pain no diarrhea no nausea no vomiting. Patient white count is 9.56, creatinine is 1.1 Objective - Vital Signs Vital signs: Vital Signs Temp 97.8 F 04/07/24 12:46 Pulse 108 H 04/07/24 14:07 Resp 16 04/07/24 12:46 BP 102/67 04/07/24 14:07 Pulse Ox 99 04/07/24 12:46 FiO2 Intake & Output 04/06/24 04/07/24 04/07/24 18:59 06:59 18:59 Intake Total 542 800 Output Total 3428 1250 950 Balance -2886 -450 -950 Intake: Oral 542 800 Output: Drainage 2575 1250 950 Right Abdomen 2575 1250 950 Post Void Residual 853 Other: Voiding Method Toilet Toilet # Voids 6 1 - Exam GENERAL DESCRIPTION: Middle-age female lying in bed in no distress RESPIRATORY SYSTEM: Unlabored breathing , decreased breath sounds at bases HEART: S1 S2 regular rate and rhythm , ABDOMEN: Soft , no tenderness EXTREMITIES: No edema feet - Labs CBC & Chem 7: 04/07/24 04:57 04/07/24 04:57 Labs: Abnormal Lab Results - Last 24 Hours (Table) 04/06/24 04/06/24 04/07/24 Range/Units 15:22 21:47 04:57 RBC 2.88 L (4.10-5.20) X 10*6/uL Hgb 8.9 L (12.0-15.0) g/dL Hct 27.9 L (37.2-46.3) % MCHC 31.9 L (32.0-37.0) g/dL RDW 17.1 H (11.5-14.5) % Plt Count 102 L (140-440) X 10*3/uL MPV 12.8 H (9.5-12.2) FL Immature Gran # 0.08 H (0.00-0.04) X 10*3/uL Eosinophils # 0.37 H (0.04-0.35) X 10*3/uL Sodium 120 L 120 L (137-145) mmol/L Carbon Dioxide (21.6-31.8) mmol/L Glucose (70-110) mg/dL Calcium (8.7-10.3) mg/dL AST (13-35) U/L Total Protein (6.2-8.2) g/dL Albumin (3.8-4.9) g/dL Albumin/Globulin Ratio (1.60-3.17) Ratio 04/07/24 Range/Units 04:57 RBC (4.10-5.20) X 10*6/uL Hgb (12.0-15.0) g/dL Hct (37.2-46.3) % MCHC (32.0-37.0) g/dL RDW (11.5-14.5) % Plt Count (140-440) X 10*3/uL MPV (9.5-12.2) FL Immature Gran # (0.00-0.04) X 10*3/uL Eosinophils # (0.04-0.35) X 10*3/uL Sodium 122 L (137-145) mmol/L Carbon Dioxide 16.7 L (21.6-31.8) mmol/L Glucose 119 H (70-110) mg/dL Calcium 7.7 L (8.7-10.3) mg/dL AST 50 H (13-35) U/L Total Protein 4.1 L (6.2-8.2) g/dL Albumin 2.4 L (3.8-4.9) g/dL Albumin/Globulin Ratio 1.41 L (1.60-3.17) Ratio Assessment and Plan (1) Urinary tract infection Current Visit: Yes Status: Acute Code(s): N39.0 - URINARY TRACT INFECTION, SITE NOT SPECIFIED SNOMED Code(s): 95788904 (2) Penicillin allergy Current Visit: Yes Status: Acute Code(s): Z88.0 - ALLERGY STATUS TO PENICILLIN SNOMED Code(s): 05352110 Plan: 1patient with a positive urine culture with Enterococcus faecium and this patient did have a positive UA it is not very clear that the patient did have a Arias catheter during this admission however the patient has been in the hospital for almost 2 weeks prior to initial evaluation and did have a mild elevated white count and low-grade fever and urinary symptoms question of possible urine tract infection though the patient mention some improvement her symptoms without antibiotic specific for this pathogen 2-penicillin allergy that will limit the number of antibiotic safe to use 3-repeat UA is negative and urinary symptom has resolved the patient antibiotic has been discontinued will monitor the patient closely off antibiotic therapy Dictation was produced using [employer] dictation software. please excuse any grammatical, word or spelling errors. Time with Patient: Less than 30
[2024-04-08 08:49] LABS: Basophils # (A) 0.07 X 10*3/uL (0.00-0.10); Basophils % (A) 0.6 %; Eosinophils # (A) 0.42 X 10*3/uL (0.04-0.35); Eosinophils % (A) 3.7 %; HCT 30.3 % (37.2-46.3); HGB 9.4 g/dL (12.0-15.0); Lymphocytes # (A) 1.93 X 10*3/uL (0.90-5.00); Lymphocytes % (A) 17.2 %; Mean Platelet Volume 12.2 FL (9.5-12.2); Monocytes # (A) 0.96 X 10*3/uL (0.20-1.00); Monocytes % (A) 8.5 %; NRBC Per 100 WBC 0 X 10*3/uL (0.00-0.01); Neutrophils # (A) 7.69 X 10*3/uL (1.80-7.70); Neutrophils % (A) 68.5 %; Platelet Count 87 X 10*3/uL (140-440); RBC 3.03 X 10*6/uL (4.10-5.20); RDW 17.5 % (11.5-14.5); WBC 11.24 X 10*3/uL (4.50-10.00)
[2024-04-08] MEDS: SODIUM CHLORIDE TAB 1 GM TAB PO STA (09:15)
[2024-04-08] MEDS: SODIUM CHLORIDE 0.9% 500 ML 500 ML IV ONE (09:15)
[2024-04-08 09:18] LABS: Blood Urea Nitrogen 22.2 mg/dL (9.0-27.0); Carbon Dioxide 16.6 mmol/L (21.6-31.8); Chloride 97 mmol/L (96-109); Glucose 98 mg/dL (70-110); Potassium 4.8 mmol/L (3.5-5.5); Sodium 123 mmol/L (135-145)
[2024-04-08 09:19] LABS: ALT 33 U/L (8-44); AST 45 U/L (13-35); Albumin 2.5 g/dL (3.8-4.9); Albumin/Globulin Ratio 1.39 Ratio (1.60-3.17); Alkaline Phosphatase 109 U/L (41-126); Calcium 8.1 mg/dL (8.7-10.3); Globulin 1.8 g/dL (1.6-3.3); Total Bilirubin 0.8 mg/dL (0.3-1.2); Total Protein 4.3 g/dL (6.2-8.2)
--- NOTE | 2024-04-08 11:57 | P.PN ---
Subjective Progress Note Date: 04/08/24 CHIEF COMPLAINT: Cholecystitis HISTORY OF PRESENT ILLNESS: Patient is status post laparoscopic cholecystectomy on March 21, 2024. Patient continues to have ascites fluid drainage from the old SALVADOR drain site. tolerating diet. Denies any abdominal pain. Reports no new complaints. Denies any nausea vomiting. Afebrile. sodium down to 119. WBC is up slightly 11.24 Patient seen and examined with Dr. diaz PHYSICAL EXAM: VITAL SIGNS: Reviewed. GENERAL: Well-developed in no acute distress. ABDOMEN: Soft. ascites fluid draining at all SALVADOR drain site NEUROLOGIC: Alert and oriented. Cranial nerves II through XII grossly intact. ASSESSMENT: 1. Cholecystitis status post lap satish 2. Ascites fluid leaking from SALVADOR drain site due to chronic liver cirrhosis from ETOH use 3. Hyponatremia PLAN: -no surgical intervention planned -Recommend that patient follows up with GI service outpatient regarding her liver cirrhosis -Continue medical management -Hyponatremia management per nephrology -Repeat CBC in AM Physician Branch Maker note has been reviewed by physician. Signing provider agrees with the documented findings, assessment, and plan of care. Objective - Vital Signs Vital signs: Vital Signs Temp 97.8 F 04/08/24 07:29 Pulse 105 H 04/08/24 10:35 Resp 16 04/08/24 07:29 BP 100/61 04/08/24 10:35 Pulse Ox 100 04/08/24 07:29 FiO2 Intake & Output 04/07/24 04/08/24 04/08/24 18:59 06:59 18:59 Intake Total 118 Output Total 950 1600 675 Balance -259 -8844 -223 Weight 113.8 kg Intake: Oral 118 Output: Drainage 950 1600 675 Right Abdomen 950 1600 675 Other: Voiding Method Toilet # Voids 2 - Labs CBC & Chem 7: 04/08/24 05:30 04/08/24 08:06 Labs: Abnormal Lab Results - Last 24 Hours (Table) 04/07/24 04/08/24 04/08/24 Range/Units 16:41 05:30 05:30 WBC 11.24 H (4.50-10.00) X 10*3/uL RBC 3.03 L (4.10-5.20) X 10*6/uL Hgb 9.4 L (12.0-15.0) g/dL Hct 30.3 L (37.2-46.3) % MCV 100.0 H (80.0-97.0) FL MCHC 31.0 L (32.0-37.0) g/dL RDW 17.5 H (11.5-14.5) % Plt Count 87 L (140-440) X 10*3/uL Immature Gran # 0.17 H (0.00-0.04) X 10*3/uL Eosinophils # 0.42 H (0.04-0.35) X 10*3/uL Sodium 120 L 123 L (137-145) mmol/L Carbon Dioxide 16.6 L (21.6-31.8) mmol/L Est GFR (CKD-EPI) 58 L (>=60) Calcium 8.1 L (8.7-10.3) mg/dL AST 45 H (13-35) U/L Total Protein 4.3 L (6.2-8.2) g/dL Albumin 2.5 L (3.8-4.9) g/dL Albumin/Globulin Ratio 1.39 L (1.60-3.17) Ratio // Range/Units 08:06 WBC (4.50-10.00) X 10*3/uL RBC (4.10-5.20) X 10*6/uL Hgb (12.0-15.0) g/dL Hct (37.2-46.3) % MCV (80.0-97.0) FL MCHC (32.0-37.0) g/dL RDW (11.5-14.5) % Plt Count (140-440) X 10*3/uL Immature Gran # (0.00-0.04) X 10*3/uL Eosinophils # (0.04-0.35) X 10*3/uL Sodium 119 L* (137-145) mmol/L Carbon Dioxide (21.6-31.8) mmol/L Est GFR (CKD-EPI) (>=60) Calcium (8.7-10.3) mg/dL AST (13-35) U/L Total Protein (6.2-8.2) g/dL Albumin (3.8-4.9) g/dL Albumin/Globulin Ratio (1.60-3.17) Ratio
[2024-04-08 12:34] LABS: ALT 28 U/L (4-34); AST 47 U/L (14-36); African American GFR (CKD) 78 (>60 ml/min/1.73 sqM); Albumin/Globulin Ratio 0.9; Alkaline Phosphatase 97 U/L (38-126); Anion Gap 3 mmol/L; Blood Urea Nitrogen 23 mg/dL (7-17); Carbon Dioxide 17 mmol/L (22-30); Chloride 100 mmol/L (98-107); Globulin 2.2 g/dL; Glucose 97 mg/dL (74-99); Non-African American GFR(CKD) 68 (>60 ml/min/1.73 sqM); Potassium 4.8 mmol/L (3.5-5.1); Sodium 120 mmol/L (137-145); Total Protein 4.2 g/dL (6.3-8.2)
--- NOTE | 2024-04-08 13:15 | P.PN ---
Subjective Progress Note Date: 04/08/24 Principal diagnosis: Reason for follow-up is Enterococcus urinary tract infection Patient is a 44-year-old with a past medical history significant for female reflux cirrhosis of the liver from alcoholism status post laparoscopic cholecystectomy during this admission also have a positive urine culture for Enterococcus faecium prompted this consultation. On today's evaluation that is 04/08/2024,the patient denies any fever or any chills, patient is breathing comfortably on room air, the patient denies chest pain shortness of breath and no significant cough, patient denies abdominal pain, no nausea vomiting or diarrhea. Patient mention feeling better. Patient white count is 11.24 sodium is 120 Objective - Vital Signs Vital signs: Vital Signs Temp 97.8 F 04/08/24 07:29 Pulse 105 H 04/08/24 10:35 Resp 16 04/08/24 07:29 BP 100/61 04/08/24 10:35 Pulse Ox 100 04/08/24 07:29 FiO2 Intake & Output 04/07/24 04/08/24 04/08/24 18:59 06:59 18:59 Intake Total 118 Output Total 950 1600 675 Balance -680 -1600 -352 Weight 113.8 kg Intake: Oral 118 Output: Drainage 950 1600 675 Right Abdomen 950 1600 675 Other: Voiding Method Toilet # Voids 2 - Exam GENERAL DESCRIPTION: Middle-age female lying in bed in no distress RESPIRATORY SYSTEM: Unlabored breathing , decreased breath sounds at bases HEART: S1 S2 regular rate and rhythm , ABDOMEN: Soft , no tenderness EXTREMITIES: No edema feet - Labs CBC & Chem 7: 04/08/24 05:30 04/08/24 12:06 Labs: Abnormal Lab Results - Last 24 Hours (Table) 04/07/24 04/08/24 04/08/24 Range/Units 16:41 05:30 05:30 WBC 11.24 H (4.50-10.00) X 10*3/uL RBC 3.03 L (4.10-5.20) X 10*6/uL Hgb 9.4 L (12.0-15.0) g/dL Hct 30.3 L (37.2-46.3) % MCV 100.0 H (80.0-97.0) FL MCHC 31.0 L (32.0-37.0) g/dL RDW 17.5 H (11.5-14.5) % Plt Count 87 L (140-440) X 10*3/uL Immature Gran # 0.17 H (0.00-0.04) X 10*3/uL Eosinophils # 0.42 H (0.04-0.35) X 10*3/uL Sodium 120 L 123 L (137-145) mmol/L Carbon Dioxide 16.6 L (21.6-31.8) mmol/L BUN (7-17) mg/dL Est GFR (CKD-EPI) 58 L (>=60) Calcium 8.1 L (8.7-10.3) mg/dL AST 45 H (13-35) U/L Total Protein 4.3 L (6.2-8.2) g/dL Albumin 2.5 L (3.8-4.9) g/dL Albumin/Globulin Ratio 1.39 L (1.60-3.17) Ratio 04/08/24 04/08/24 Range/Units 08:06 12:06 WBC (4.50-10.00) X 10*3/uL RBC (4.10-5.20) X 10*6/uL Hgb (12.0-15.0) g/dL Hct (37.2-46.3) % MCV (80.0-97.0) FL MCHC (32.0-37.0) g/dL RDW (11.5-14.5) % Plt Count (140-440) X 10*3/uL Immature Gran # (0.00-0.04) X 10*3/uL Eosinophils # (0.04-0.35) X 10*3/uL Sodium 119 L* 120 L (137-145) mmol/L Carbon Dioxide 17 L (21.6-31.8) mmol/L BUN 23 H (7-17) mg/dL Est GFR (CKD-EPI) (>=60) Calcium 8.0 L (8.7-10.3) mg/dL AST 47 H (13-35) U/L Total Protein 4.2 L (6.2-8.2) g/dL Albumin 2.0 L (3.8-4.9) g/dL Albumin/Globulin Ratio (1.60-3.17) Ratio Assessment and Plan (1) Urinary tract infection Current Visit: Yes Status: Acute Code(s): N39.0 - URINARY TRACT INFECTION, SITE NOT SPECIFIED SNOMED Code(s): 20452000 (2) Penicillin allergy Current Visit: Yes Status: Acute Code(s): Z88.0 - ALLERGY STATUS TO P ENICILLIN SNOMED Code(s): 98799506 Plan: 1patient with a positive urine culture with Enterococcus faecium and this patient did have a positive UA it is not very clear that the patient did have a Arias catheter during this admission however the patient has been in the hospital for almost 2 weeks prior to initial evaluation and did have a mild elevated white count and low-grade fever and urinary symptoms question of possible urine tract infection though the patient mention some improvement her symptoms without antibiotic specific for this pathogen 2-penicillin allergy that will limit the number of antibiotic safe to use 3-repeat UA is negative and urinary symptom has resolved the patient antibiotic has been discontinued, patient seems to be doing well off antibiotic at this point currently waiting for improvement in her sodium before discharge discussed with the nursing staff Dictation was produced using [employer] dictation software. please excuse any grammatical, word or spelling errors. Time with Patient: Less than 30
--- NOTE | 2024-04-08 14:04 | P.PN ---
Subjective Patient is seen for follow-up for hyponatremia. serum sodium is staying around 120-124. Patient developed significant hypotension with Lasix. Her volume status seems to have improved slightly. Patient wants to go home. serum sodium had improved to 123 at 5.am and another reading from a fingerstick at 8 AM was 119. Patient continues to have no significant symptoms. Drainage from the right abdomen has decreased. Objective - Vital Signs Vital signs: Vital Signs Temp 97.8 F 04/08/24 07:29 Pulse 105 H 04/08/24 10:35 Resp 16 04/08/24 07:29 BP 100/61 04/08/24 10:35 Pulse Ox 100 04/08/24 07:29 FiO2 Intake & Output 04/07/24 04/08/24 04/08/24 18:59 06:59 18:59 Intake Total 118 Output Total 950 1600 675 Balance -950 -1600 554 Weight 113.8 kg Intake: Oral 118 Output: Drainage 950 1600 675 Right Abdomen 950 1600 675 Other: Voiding Method Toilet # Voids 2 - Exam Patient is awake, comfortable, no acute distress. Examination of the heart S1 and S2 Examination of the lungs bilateral breath sounds are heard Abdomen is soft distended with drainage of ascitic fluid noted. 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 grossly intact - Labs CBC & Chem 7: 04/08/24 05:30 04/08/24 12:06 Labs: Abnormal Lab Results - Last 24 Hours (Table) 04/07/24 04/08/24 04/08/24 Range/Units 16:41 05:30 05:30 WBC 11.24 H (4.50-10.00) X 10*3/uL RBC 3.03 L (4.10-5.20) X 10*6/uL Hgb 9.4 L (12.0-15.0) g/dL Hct 30.3 L (37.2-46.3) % MCV 100.0 H (80.0-97.0) FL MCHC 31.0 L (32.0-37.0) g/dL RDW 17.5 H (11.5-14.5) % Plt Count 87 L (140-440) X 10*3/uL Immature Gran # 0.17 H (0.00-0.04) X 10*3/uL Eosinophils # 0.42 H (0.04-0.35) X 10*3/uL Sodium 120 L 123 L (137-145) mmol/L Carbon Dioxide 16.6 L (21.6-31.8) mmol/L BUN (7-17) mg/dL Est GFR (CKD-EPI) 58 L (>=60) Calcium 8.1 L (8.7-10.3) mg/dL AST 45 H (13-35) U/L Total Protein 4.3 L (6.2-8.2) g/dL Albumin 2.5 L (3.8-4.9) g/dL Albumin/Globulin Ratio 1.39 L (1.60-3.17) Ratio 04/08/24 04/08/24 Range/Units 08:06 12:06 WBC (4.50-10.00) X 10*3/uL RBC (4.10-5.20) X 10*6/uL Hgb (12.0-15.0) g/dL Hct (37.2-46.3) % MCV (80.0-97.0) FL MCHC (32.0-37.0) g/dL RDW (11.5-14.5) % Plt Count (140-440) X 10*3/uL Immature Gran # (0.00-0.04) X 10*3/uL Eosinophils # (0.04-0.35) X 10*3/uL Sodium 119 L* 120 L (137-145) mmol/L Carbon Dioxide 17 L (21.6-31.8) mmol/L BUN 23 H (7-17) mg/dL Est GFR (CKD-EPI) (>=60) Calcium 8.0 L (8.7-10.3) mg/dL AST 47 H (13-35) U/L Total Protein 4.2 L (6.2-8.2) g/dL Albumin 2.0 L (3.8-4.9) g/dL Albumin/Globulin Ratio (1.60-3.17) Ratio Assessment and Plan Assessment: 1. Hyponatremia associated with liver cirrhosis. Status post 3% saline as sodium had not improved with diuretics or normal saline. Sodium improved to 133 with 3% saline and dropped again and staying around 123-124 . TSH normal. Urine sodium less than 20. Urine osmolality 755 and 335. Cortisol level 10, adrenal insufficiency ruled out by cosyntropin stimulation test. Sodium chloride tabs discontinued secondary to significant hypervolemia. Patient remains largely asymptomatic and she can be discharged with plans to follow-up with repeat labs in 2 days. 2. History of alcohol abuse. 3. History of liver cirrhosis. 4. Hypomagnesemia from diuresis and GI losses. Replaced. Better. 5. Status post laparoscopic cholecystectomy March 21, 2024. 6. Nongap metabolic acidosis from GI losses. On oral bicarb. Plan: patient can be discharged as she remains largely asymptomatic and serum sodium is staying around 120-124. She yumiko continue off of sodium chloride tabs. We are significantly limited with options for treating the hyponatremia due to underlying liver cirrhosis. Patient cannot continue with Samsca and sodium chloride tabs were discontinued due to edema and ascites. Continue with fluid restriction post discharge and repeat labs in 2 days as outpatient. Continue with sodium bicarb for now, decrease dose.
[2024-04-08 14:09] VITALS: BP 99/60; PULSE 98; TEMP 98.8
--- NOTE | 2024-04-08 15:01 | P.PN ---
Subjective Progress Note Date: 04/08/24 Patient is a 44-year-old white female with past medical story significant for COPD, alcoholism, liver cirrhosis, ascites with previous paracentesis, esophageal varices, gastric ulcer, and previous GI bleed. Last drink was reportedly 1 month ago. Of note, patient did have a recent esophagogastroduodenoscopy on 02/19/2024 she was found to have a 5 mm antral ulcer with no active bleeding, small distal esophageal varices and mild to moderate gastritis. She did have a HIDA scan on 02/23/2024. she was brought in for a laparoscopic cholecystectomy, which was reportedly done on March,. No perioperative complications reported. Postoperatively, the patient was recovering on the medical surgical unit. She is tolerating her diet. She was noted to have copious serous output from her SALVADOR drain. In fact, a total of 2.4 L has drained so far in the last 24 hours. She was also being diuresed with Lasix. Subsequently, became hyponatremic, sodium was as low as 116. Nephrology recommended starting 3% hypertonic saline, which required transfer the patient to the intensive care unit for monitoring. Patient is currently sitting up in bed, on room air, in no acute distress. No signs of alcohol withdrawal. Lasix has been stopped. She continues to have significant amount of serous drainage f rom a prior drain site, however, her SALVADOR drain has been removed. She has abdominal ascites. No cognitive symptoms. No confusion/AMS, headache, seizures. Hypertonic saline is currently infusing at 25 mL/h. Current sodium is 119, with a goal of 120 mmol/L. Nephrology is managing. Remaining labs include a CBC with a WBC count 17.2, hemoglobin 10, hematocrit 31, platelets 133. BMP: Sodium 119, potassium 4.2, chloride 96, serum bicarb 16, BUN 15, creatinine 0.79, glucose 103. Most recent LFTs unremarkable. Total bili 1.7. Ammonia 37. Has remained afebrile. Heart rhythm appears sinus tachycardia on bedside monitor with a heart rate of 112 beats per minutes, blood pressure stable at 103/53 mmHg. Hemodynamics are stable. Progress note dated March 29, 2024. 44-year-old female with a significant past medical history as noted above. The patient is seen in the intensive care unit, room 262. She remains on room air. She is receiving 3% saline as per nephrology, at 35 cc an hour. Today's sodium was 122. Clinically she is very stable. Current laboratory data includes a white count 11.9, hemoglobin 9.6, hematocrit 31.2, and a platelet count of 118,000. Sodium 122, potassium 4.5, chlorides 102, CO2 16, BUN 18, creatinine 0.71. TSH is 1.80. No significant pathology is noted on abdominal ultrasound. Progress note dated March 30, 2024. 44-year-old female seen in room 262. The patient continues on room air. She is getting 3% saline at 35 cc an hour. Her sodium today was 124. The patient appears to be doing relatively well. She still has significant drainage, from the incision, on the abdomen. White count was 10.7, hemoglobin 9.3, hematocrit 30, platelet count 108,000. Sodium 126, potassium 4.6, chlorides 105, CO2 19, BUN 20, creatinine 0.71. Glucose is 105. Calcium is 7.7. Albumin is 2.0. Ammonia level is 60. Progress note dated March 31, 2024. 44-year-old female seen again in room 262. Currently, she is on room air. She is not receiving any IV fluids. Over the last few days, she has been on 3% saline. Today's sodium is 125. Labs include a white count 10.8, hemoglobin 9.6, hematocrit 30.6, and a platelet count of 103,000. Sodium 125, potassium 4.7, chlorides 102, CO2 19, BUN 19, and creatinine 0.86. Progress note dated April 01, 2024. 44-year-old female seen in the intensive care unit, room 262. Unfortunately, the patient sodium has dropped, down to 122, and she was started back on 3% saline at 35 cc an hour. She appears to have a resistant hyponatremia. Other than that, the patient is doing well. She is not requiring any supplemental oxygen. She had an uneventful night. Current labs include a sodium now down to 120, the rest of the electrolyte profile from this morning shows a potassium 4.5, chloride 99, CO2 18, BUN 19, creatinine 0.93. Calcium is 8.0. Progress note dated April 02, 2024. 44-year-old female seen in the intensive care unit, for hyponatremia. The patient is seen today in room 262. The patient is on room air. The patient is getting 3% saline at 40 cc an hour. This morning sodium level is 125. Additional laboratory data includes a white count 6.7, hemoglobin 9.3, hematocrit 30.1, and platelet count 83,000. Sodium 125, potassium 4.3, chlorides 106, CO2 16, BUN 17, creatinine 0.85. Glucose is 100. Albumin is 2.2. The urine specimen from March 30 shows evidence of Enterococcus faecium and Hafnia alvei. The patient is currently not on any antibiotics. I am sure the primary will likely consult infectious diseases. Progress note dated April 03, 2024. 44-year-old female seen in the intensive care unit. The patient is on room air. Sodium this morning was 124. It had been up to 133. The patient is not receiving any IV fluids. Laboratory data includes a white count 7.3, hemoglobin 9.3, hematocrit 30.5, and a platelet count of 103,000. Sodium 124, potassium 4.4, chlorides 102, CO2 20, BUN 17, creatinine 1.02. The patient is very clinically stable. The patient is able to move out of the intensive care unit. Progress note dated April 04, 2024. 44-year-old female seen in the intensive care unit, room 262. Today sodium is 124. She is on room air. Her saline IV is running at 10 cc an hour. The patient is waiting for a bed on the general medical floor. She had an uneventful night. She is awake and alert, without any complaints or symptoms. White count is 8.5, hemoglobin 9.8, hematocrit 31.6, platelet 89,000. Sodium 124, potassium 4.4, chlorides 105, CO2 14, BUN 15, creatinine 0.84. On today's evaluation of 04/05/2024, the patient is being seen for a follow-up. Patient continues to have a leak from the previous i insert the SALVADOR drain site and the patient has produced around 500 cc of ascitic fluid since manager advertising. Meanwhile, the patient was seen by interventional radiology and there was no sizable ascitic fluid to drain based on their evaluation. Abdomen is nondistended. She has no nausea or vomiting. Abdominal pain. No abdominal tenderness. She is off hypertonic saline and sodium level is up to 123. She is known to have liver cirrhosis secondary to alcoholism. Her platelet count is at 76 with a hemoglobin of 8.8 and a white cell count of 7.1. Rest of the electrolytes show a component of non-anion gap metabolic acidosis with a serum bicarb of 14.9. She remains on midodrine. She remains on oral bicarb and oral sodium tablets. Nephrology is on the case. General surgery is on the case. No signs of any encephalopathy at this point in time. Noted patient received Samsca. She is currently off hypertonic saline solution. On 04/06/2024, the patient continues to have leak from the SALVADOR puncture site postcholecystectomy. She is producing more than a liter of ascitic fluid collecting in the colostomy bag. Awake and alert. No nausea vomiting. Abdominal pain. Was the cause of 7.8. Sodium levels at 124 with a BUN of 17 and a creatinine of 1.0. LFTs are within normal limits. Tolerating diet. Currently on Symbicort and DuoNeb nebulized treatments [id number]. Remains on Seroquel, salt tablets, bicarb tablets. She is known to have chronic liver cirrhosis with secondary ascites. She underwent a cholecystectomy complicated by ongoing ascitic fluid drainage from the SALVADOR puncture sites. On today's evaluation of 04/07/2024, the patient has no specific complaints. Continues to have leak from the puncture site of the SALVADOR. Sodium level is also fluctuating and current level is at 122 and the patient was started on normal citrate of 50 cc an hour. Rest of the electrolytes show his component of the n egative metabolic acidosis with a serum bicarb of 16. BUN is 19 with a creatinine of 1.1. LFTs are unchanged. Hemoglobin is 8.9. No respiratory difficulties. No nausea vomiting or abdominal pain. She remains on room air oxygen. She is afebrile. Unfortunately, the patient is draining more than 1 L through the SALVADOR puncture site. Surgical wound site is dry clean and intact. Receiving IV iron for iron deficiency anemia. On 04/08/2024, the patient continues to have fluctuation in her sodium level. Normal saline has been discontinued as the patient sodium dropped and the patient was given a dose of Samsca by nephrology and she was given 15 mg p.o. x 1. Follow-up sodium level is pending. Morning labs showed a sodium level of 120, serum bicarbonate 17 with a BUN of 23 and a creatinine of 1.02. Continues to have leak from the SALVADOR insertion site. No other new complaints otherwise for now. She remains on room air oxygen. No encephalopathy. No nausea or vomiting. No evidence of any GI bleeding. Objective - Vital Signs Vital signs: Vital Signs Temp 98.8 F 04/08/24 14:08 Pulse 98 04/08/24 14:08 Resp 16 04/08/24 14:08 BP 99/60 04/08/24 14:08 Pulse Ox 98 04/08/24 14:08 FiO2 Intake & Output 04/07/24 04/08/24 04/08/24 18:59 06:59 18:59 Intake Total 236 Output Total 950 1600 675 Balance -950 -1600 -439 Weight 113.8 kg Intake: Oral 236 Output: Drainage 950 1600 675 Right Abdomen 950 1600 675 Other: Voiding Method Toilet # Voids 2 - Exam No acute distress, oriented 3. The patient is currently on room air. HEENT examination is grossly unremarkable. Mucous membranes are moist. No oral lesions. Neck supple. Full range of motion. No adenopathy thyromegaly or neck vein distention. Cardiovascular examination reveals regular rhythm rate. S1-S2 normal. No S3 or S4. No discernible murmur noted. Heart sounds are distant. Lungs reveal clear breath sounds. Breath sounds are equal bilaterally. No adventitious lung sounds including wheezes rhonchi or crackles. Abdomen soft bowel sounds are heard. No masses or tenderness. The patient is leaking ascitic fluid from the SALVADOR drain insertion site in the right upper quadrant. The rest of the surgical wound site is dry clean and intact. No direct emergency monitors or guarding. Extremities are intact. No cyanosis clubbing or edema. Skin is without rash or lesion. Neurologic examination is brief but nonfocal. - Labs CBC & Chem 7: 04/08/24 05:30 04/08/24 12:06 Labs: Abnormal Lab Results - Last 24 Hours (Table) 04/07/24 04/08/24 04/08/24 Range/Units 16:41 05:30 05:30 WBC 11.24 H (4.50-10.00) X 10*3/uL RBC 3.03 L (4.10-5.20) X 10*6/uL Hgb 9.4 L (12.0-15.0) g/dL Hct 30.3 L (37.2-46.3) % MCV 100.0 H (80.0-97.0) FL MCHC 31.0 L (32.0-37.0) g/dL RDW 17.5 H (11.5-14.5) % Plt Count 87 L (140-440) X 10*3/uL Immature Gran # 0.17 H (0.00-0.04) X 10*3/uL Eosinophils # 0.42 H (0.04-0.35) X 10*3/uL Sodium 120 L 123 L (137-145) mmol/L Carbon Dioxide 16.6 L (21.6-31.8) mmol/L BUN (7-17) mg/dL Est GFR (CKD-EPI) 58 L (>=60) Calcium 8.1 L (8.7-10.3) mg/dL AST 45 H (13-35) U/L Total Protein 4.3 L (6.2-8.2) g/dL Albumin 2.5 L (3.8-4.9) g/dL Albumin/Globulin Ratio 1.39 L (1.60-3.17) Ratio 04/08/24 04/08/24 Range/Units 08:06 12:06 WBC (4.50-10.00) X 10*3/uL RBC (4.10-5.20) X 10*6/uL Hgb (12.0-15.0) g/dL Hct (37.2-46.3) % MCV (80.0-97.0) FL MCHC (32.0-37.0) g/dL RDW (11.5-14.5) % Plt Count (140-440) X 10*3/uL Immature Gran # (0.00-0.04) X 10*3/uL Eosinophils # (0.04-0.35) X 10*3/uL Sodium 119 L* 120 L (137-145) mmol/L Carbon Dioxide 17 L (21.6-31.8) mmol/L BUN 23 H (7-17) mg/dL Est GFR (CKD-EPI) (>=60) Calcium 8.0 L (8.7-10.3) mg/dL AST 47 H (13-35) U/L Total Protein 4.2 L (6.2-8.2) g/dL Albumin 2.0 L (3.8-4.9) g/dL Albumin/Globulin Ratio (1.60-3.17) Ratio Assessment and Plan Plan: Hyponatremia, multifactorial. The patient is known to have liver cirrhosis/alcoholic in nature and the patient also may have a component of postop SIADH. Treated with hypertonic saline. Received Samsca. Sodium level is stable and there is no signs of encephalopathy. The sodium level today is at 120 Liver cirrhosis History of ascites S/P operative day # 18, following a laparoscopic cholecystectomy. Ongoing leak from the SALVADOR drain site Non-anion gap metabolic acidosis. Sinus tachycardia. Macrocytic anemia., Secondary to iron deficiency and the patient is currently on IV iron Alcoholic liver disease and abdominal ascites. History of GI bleed status post esophagogastroduodenoscopy on 02/19/2024. History of esophageal varices. History of mild to moderate gastritis and 5 mm antral gastric ulcer . History of alcoholism, last drink reportedly 1 month ago. Chronic obstructive pulmonary disease, stable. Chronic ongoing tobacco dependence. History of bipolar disorder. Chronic thrombocytopenia Plan Fluid restriction Patient is off to normal saline infusion Patient was given 50 mg of oral Samsca Monitor output from the SALVADOR insertion site which is constantly leaking ascitic fluid and a colostomy bag has been applied to the site No evidence of any ascites to drain based on IR evaluation Continue oral bicarb Continue to follow
[2024-04-08] MEDS: TOLVAPTAN 15 MG TABLET PO ONE (15:06)
[2024-04-08] MEDS: DAPAGLIFLOZIN PROPANEDIOL 5 MG TABLET PO SCH (15:19)
--- NOTE | 2024-04-09 01:01 | PN ---
PROGRESS NOTE SUBJECTIVE: Dr. Kaba saw the patient for recurrent UTI, which apparently is better. Renal function is down. Sodium was 119, now 120. Samsca could not be given any more. Urinary tract infection was treated with some antibiotics, on Farxiga, SGL2 that may help with hyponatremia with cirrhosis. OBJECTIVE: VITAL SIGNS: Today, temperature 99, respiratory rate 16 to 18, O2 of 98%, blood pressure 99/50, it has been elevated for orthostatic hypotension, O2 of 98% on room air. So far, the patient can be discharged, limited with options for treating hyponatremia. Cannot continue Samsca or sodium chloride edema. Fluid restriction. Follow up as an outpatient. Prognosis guarded. MMODL / IJN: [id number] /
[2024-04-09] MEDS ORDERED: SODIUM BICARBONATE TAB 650 MG TAB PO SCH (09:00)
--- NOTE | 2024-04-28 21:46 | CDI ---
Documentation Clarification Form Date: 04/28/2024 09:23:18 PM From: Mitali Quezada Phone: Admit Date: 03/21/2024 01:57:00 PM Patient Name: Joanna Bagley Visit Number: [id number] Discharge Date: 04/08/2024 04:50:00 PM ATTENTION: The Clinical Documentation Specialists (CDI) and [facility] Coding Staff appreciate your assistance in clarifying documentation. Please respond to the clarification below the line at the bottom and electronically sign. The CDI & [facility] Coding staff will review the response and follow up if needed. Please note: Queries are made part of the Legal Health Record. If you have any questions, please contact the author of this message via ITS. Doctor/Provider: Luis Alfredo Shields Stop Lasix due to severe hypotension is documented per Progress Note 04/07. Additional clarification regarding this diagnosis is requested. History/Risk Factors: 44yo F, Chronic cholecystitis sp cholecystectomy, asthma w COPD, splenomegaly, alcoholiccirrhosis ascites, hypotension,hyponatremia, macrocytic anemia/COLIN, met acidosis, Hx GIB & esophageal varices, smoker Clinical Indicators: VS: 04/01 O2 is 96% on room air, [id number]/51, respiratory rate 16- 18. Sugars 100s. 04/08 T 99, RR 16 to 18, O2 of 98%, BP99/50, it has beenelevatedfororthostatic hypotension, O2 of 98% RA. Treatment: 04/01 Na level is worse with Aldactone, Lasix. Maintain 3% saline. Normal saline boluses given. Oral intake. Fluid restrictions. Possible Na chloride will be given in tablets. 04/07 Pt BPis in the 80s systolic and she cannot support IV Lasix to that extent. Her creatinine is getting worse tohepatorenal failure, so I will stop the Lasix due to severe hypotension, possibly increase midodrine dose. 04/08 Pt is seen forf/u forhyponatremia. Serum Na is staying around 120-124. Pt developed significanthypotensionwith Lasix. Her volume status seems to have improved slightly. Serum Na had improved to 123 at 5.am and another reading from a finger stick at 8 AM was 119. Pt can be dc, limited with options for treating hyponatremia. Cannotcontinue Samsca or Na chloride edema. Fluidrestriction. F/u OP. Can the hypotension be further specified? [ ] Lasix Induced Hypotension [ ] Orthostatic Hypotension [ ] Postoperative Hypotension [ ] Other Condition, please specify [ ] Unable to determine (Template Last Revised: October 2020) MTDD
--- NOTE | 2024-04-28 21:55 | CDI ---
Documentation Clarification Form Date: 04/28/2024 09:47:21 PM From: Mitali Quezada Phone: Admit Date: 03/21/2024 01:57:00 PM Patient Name: Joanna Bagley Visit Number: [id number] Discharge Date: 04/08/2024 04:50:00 PM ATTENTION: The Clinical Documentation Specialists (CDI) and [facility] Coding Staff appreciate your assistance in clarifying documentation. Please respond to the clarification below the line at the bottom and electronically sign. The CDI & [facility] Coding staff will review the response and follow-up if needed. Please note: Queries are made part of the Legal Health Record. If you have any questions, please contact the author of this message via ITS. Doctor/Provider: Shayan Corrigan Ascitesleak from SALVADOR drain site is documented per Progress Note 03/31. Additional clarification regarding leaking from SALVADOR drain site is requested. Patients Admitting Diagnosis: Chronic cholecystitis Post-Operative Diagnosis: Chronic cholecystitis Procedure performed: Laparoscopic cholecystectomy History/Risk Factors: 44yo F,Chronic cholecystitisspcholecystectomy,alcoholiccirrhosisascites,hypotension,asth ma w COPD,splenomegaly,hyponatremia, macrocytic anemia/COLIN, metacidosis, Hx GIBesophageal varices,smoker Clinical Indicators: Patient had suturesplacedat old JPdrainsite. Patient continues to haveascitesleakfrom JPdrainsite. Had 100 mL output ofascites fluid. Treatment: Ultrasound-guidedparacentesis 04/05. Preliminaryimagingdemonstratednosizable fluidcollection. Please clarify if Ascitesleaking from SALVADOR drain site is a complication of the surgical procedure? [ ] Yes [ xx ] No [ ] Other, please specify [ ] Unable to determine (Template Last Revised: October 2020) MTDD
--- NOTE | 2024-05-09 20:50 | CDI ---
Documentation Clarification Form Date: 05/09/2024 08:46:19 PM From: Mitali Quezada Phone: Admit Date: 03/21/2024 01:57:00 PM Patient Name: Joanna Bagley Visit Number: [id number] Discharge Date: 04/08/2024 04:50:00 PM ATTENTION: The Clinical Documentation Specialists (CDI) and [facility] Coding Staff appreciate your assistance in clarifying documentation. Please respond to the clarification below the line at the bottom and electronically sign. The CDI & [facility] Coding staff will review the response and follow-up if needed. Please note: Queries are made part of the Legal Health Record. If you have any questions, please contact the author of this message via ITS. Doctor/Provider:Luis Alfredo Shields Thank you for acknowledging the previous query; however, it was signed and submitted without a response. Stop Lasix due to severehypotensionis documented per Progress Note 04/07. Additional clarification regarding this diagnosis is requested. History/Risk Factors: 44yo F,Chronic cholecystitisspcholecystectomy,splenomegaly,alcoholiccirrhosisascites,ast hma w COPD,hypotension,hyponatremia, macrocytic anemia/COLIN, metacidosis, Hx GIBesophageal varices,smoker Clinical Indicators: VS: 04/01 O2 is 96% on room air, [id number], respiratory rate 16- 18. Sugars 100s. 04/08 T 99, RR 16 to 18, O2 of 98%, BP99/50, it has beenelevatedfororthostatic hypotension, O2 of 98%RA. Treatment: 04/01 Na level is worse with Aldactone, Lasix. Maintain 3% saline. Normal saline boluses given. Oral intake. Fluid restrictions. Possible Na chloride will be given in tablets. 04/07 Pt BPis in the 80s systolic and she cannot support IV Lasix to that extent. Her creatinine is getting worse tohepatorenal failure, so I will stop the Lasix due to severehypotension, possibly increase midodrine dose. 04/08 Pt is seen forf/u forhyponatremia. Serum Na is staying around 120-124. Pt developed significanthypotensionwith Lasix. Her volume status seems to have improved slightly. Serum Na had improved to 123 at 5. am and another reading from a finger stick at 8 AM was 119. Pt can be dc, limited with options for treating hyponatremia. Cannotcontinue Samsca or Na chlorideedema. Fluidrestriction. F/u OP. Can thehypotensionbe further specified? [ ] Lasix InducedHypotension [ ]Orthostatic Hypotension [ ]Postoperative Hypotension [ ] Other Condition, please specify [ ] Unable to determine (Template LastRevised: October 2020) MTDD
--- NOTE | 2024-05-13 18:16 | CDI ---
Documentation Clarification Form Date: 05/13/2024 06:02:22 PM From: Mitali Quezada Phone: Admit Date: 03/21/2024 01:57:00 PM Patient Name: Joanna Bagley Visit Number: [id number] Discharge Date: 04/08/2024 04:50:00 PM ATTENTION: The Clinical Documentation Specialists (CDI) and [facility] Coding Staff appreciate your assistance in clarifying documentation. Please respond to the clarification below the line at the bottom and electronically sign. The CDI & [facility] Coding staff will review the response and follow-up if needed. Please note: Queries are made part of the Legal Health Record. If you have any questions, please contact the author of this message via ITS. Doctor/Provider: Luis Alfredo Shields Thank you for acknowledging the previous queries; however, it was signed and submitted without a response. Stop Lasix due to severehypotensionis documented per Progress Note 04/07. Additional clarification regarding this diagnosis is requested. History/Risk Factors: 44yo F,Chroniccholecystitisspcholecystectomy,splenomegaly,alcoholiccirrhosisas cites,asthma wCOPD,hypotension,hyponatremia,macrocytic anemia/COLIN, metacidosis, Hx GIBesophageal varices,smoker Clinical Indicators: VS: 04/01 O2 is 96% on room air, [id number]/51, respiratory rate 16- 18. Sugars 100s. 04/08 T 99, RR 16 to 18, O2 of 98%, BP99/50, it has beenelevatedfororthostatic hypotension, O2 of 98%RA. Treatment: 04/01 Na level is worse with Aldactone, Lasix. Maintain 3% saline. Normal saline boluses given. Oral intake. Fluid restrictions. Possible Na chloride will be given in tablets. 04/07 Pt BPis in the 80s systolic and she cannot support IV Lasix to that extent. Her creatinine is getting worse tohepatorenal failure, so I will stop the Lasix due to severehypotension, possibly increase midodrine dose. 04/08 Pt is seen forf/u forhyponatremia. Serum Na is staying around 120-124. Pt developed significanthypotensionwith Lasix. Her volume status seems to have improved slightly. Serum Na had improved to 123 at 5. am and another reading from a finger stick at 8 AM was 119. Pt can be dc, limited with options for treatinghyponatremia. Cannotcontinue Samsca or Na chlorideedema. Fluidrestriction. F/u OP. Can thehypotensionbe further specified? [ ] Lasix InducedHypotension [ ]Orthostatic Hypotension [ ]Postoperative Hypotension [ ] Other Condition, please specify [ ] Unable to determine (Template LastRevised: October 2020) MTDD
--- NOTE | 2024-05-15 22:17 | PN ---
PROGRESS NOTE Orthostatic hypotension. MMODL / IJN: [id number] /
== END 2024-04-08 16:50 | disposition home or self-care (01) | DRG 263 ==
LOC: OR 11:00 → 4SSUR 13:57 → 2SICU 03-27 21:05 → 4SSUR 04-04 16:40
PROVIDERS: ADMIT Family Medicine; ATTEND Family Medicine
PROC: 30233J1 Transfusion of Nonautologous Serum Albumin into Peripheral Vein, Percutaneous Approach (ICD-10-PCS; 2024-03-21)
PROC: 0FT44ZZ Resection of Gallbladder, Percutaneous Endoscopic Approach (ICD-10-PCS; principal; 2024-03-21 10:00)
PROC: 0W9G3ZZ Drainage of Peritoneal Cavity, Percutaneous Approach (ICD-10-PCS; 2024-04-05)
DX: K81.1 Chronic cholecystitis (principal); K76.7 Hepatorenal syndrome; K76.6 Portal hypertension; K70.31 Alcoholic cirrhosis of liver with ascites; F10.20 Alcohol dependence, uncomplicated; F31.81 Bipolar II disorder; Z68.41 Body mass index [BMI] 40.0-44.9, adult; Z93.3 Colostomy status; E87.20 Acidosis, unspecified; E87.1 Hypo-osmolality and hyponatremia; J44.89 Other specified chronic obstructive pulmonary disease; D53.9 Nutritional anemia, unspecified; E66.9 Obesity, unspecified; D50.9 Iron deficiency anemia, unspecified; B95.2 Enterococcus as the cause of diseases classified elsewhere; K21.9 Gastro-esophageal reflux disease without esophagitis; N39.0 Urinary tract infection, site not specified; B96.89 Other specified bacterial agents as the cause of diseases classified elsewhere; E83.42 Hypomagnesemia; E86.1 Hypovolemia; E87.70 Fluid overload, unspecified; F17.210 Nicotine dependence, cigarettes, uncomplicated; G62.9 Polyneuropathy, unspecified; R16.1 Splenomegaly, not elsewhere classified; Z79.51 Long term (current) use of inhaled steroids; Z79.899 Other long term (current) drug therapy; Z87.19 Personal history of other diseases of the digestive system; Z88.0 Allergy status to penicillin; Z87.11 Personal history of peptic ulcer disease; Z87.440 Personal history of urinary (tract) infections; I95.1 Orthostatic hypotension
CPT/HCPCS: 36410; 71045; 76700; 76705; 76937; 80048; 80053; 81001; 81003; 82140; 82150; 82248; 82533; 83690; 83735; 83930; 83935; 84295; 84300; 84443; 85025; 85610; 87077; 87086; 87186; 88304; 93306; 94640

== ENCOUNTER 2024-04-16 11:46 | Inpatient (IN) | payer OTHER ==
--- NOTE | 2024-04-16 11:55 | ED ---
Recheck HPI - General Chief Complaint: Recheck/Abnormal Lab/Rx Stated Complaint: Abd labs-sent by PCP Time Seen by Provider: 04/16/24 11:54 Source: patient, RN notes reviewed Mode of arrival: wheelchair Limitations: no limitations - History of Present Illness Initial Comments: 43-year-old female with history of alcohol shortness of level presents emergency department chief complaint of abnormal labs. Patient states that she had blood work drawn by her primary care provider as instructed for the emergency department due to a low sodium. Patient states that she has had worsening bilateral lower extremity edema, shortness with, and abdominal bloating and distention. Patient admits to abdominal pain. Patient was recently admitted to the hospital in the middle of March for a cholecystectomy and stated for a few weeks afterwards due to complications with the liver. Patient currently has a drainage bag in place of the right abdomen. Denies fevers, chills, nausea, vomiting. states she has been urinating less frequently. - Related Data Home Medications Medication Instructions Recorded Confirmed Cariprazine HCl [Vraylar] 3 mg PO HS 03/20/23 04/16/24 Pantoprazole [Protonix] 40 mg PO DAILY 03/20/23 04/16/24 QUEtiapine [SEROquel] 100 tab PO HS 03/20/23 04/16/24 Spironolactone 100 mg PO DAILY 03/20/23 04/16/24 Gabapentin [Neurontin] 300 mg PO TID 04/16/24 04/16/24 Ipratropium-Albuterol Nebulize 3 ml INHALATION RT-TID 04/16/24 04/16/24 [Duoneb 0.5 mg-3 mg/3 ml Soln] Midodrine [ProAmatine] 5 mg PO TID 04/16/24 04/16/24 Tiotropium 2.5 Mcg/Puff [Spiriva 1 puff INHALATION RT-DAILY 04/16/24 04/16/24 Respimat 2.5 Mcg] Previous Rx's Medication Instructions Recorded Budesonide-Formot 160-4.5 Mcg 2 puff INHALATION RT-BID 30 Days 02/24/24 [Symbicort 160-4.5 Mcg Inhaler] #1 each Dapagliflozin Propanediol [Farxiga] 5 mg PO DAILY 90 Days #90 tab 04/08/24 Sodium Bicarbonate Tab 650 mg PO DAILY 90 Days #90 tab 04/08/24 Allergies Allergy/AdvReac Type Severity Reaction Status Date / Time Penicillins Allergy Anaphylaxis Verified 04/16/24 12:57 Review of Systems ROS Statement: Those systems with pertinent positive or pertinent negative responses have been documented in the HPI. ROS Other: All systems not noted in ROS Statement are negative. Past Medical History Past Medical History: GERD/Reflux, Liver Disease Additional Past Medical History / Comment(s): retains fluid,anemia,cirrohis of liver non alcoholic, occ bloody stool, ulcer, bipolar History of Any Multi-Drug Resistant Organisms: None Reported Past Surgical History: Cholecystectomy, EPS Additional Past Surgical History / Comment(s): has had 4 scopes, paracentesis unable to get any fluid out at the time., paracentesis Past Anesthesia/Blood Transfusion Reactions: No Reported Reaction Additional Past Anesthesia/Blood Transfusion Reaction / Comment(s): 3 units of blood transfused in around february 03. Past Psychological History: Anxiety, Bipolar Smoking Status: Current every day smoker Past Alcohol Use History: Abuse Past Drug Use History: None Reported General Exam Limitations: no limitations Head exam: Present: atraumatic, normocephalic, normal inspection Eye exam: Present: normal appearance, PERRL, EOMI. Absent: scleral icterus, conjunctival injection, periorbital swelling ENT exam: Present: normal exam, mucous membranes moist Respiratory exam: Present: normal lung sounds bilaterally, wheezes. Absent: respiratory distress, rales, rhonchi, stridor Cardiovascular Exam: Present: regular rate, normal rhythm, tachycardia, normal heart sounds. Absent: systolic murmur, diastolic murmur, rubs, gallop, clicks GI/Abdominal exam: Present: soft, distended, tenderness (diffuse), normal bowel sounds, other (post surgical incisions with drainage bag in place over the right mid-abdomen with yellow serous drainage). Absent: guarding, rebound, rigid Extremities exam: Present: normal inspection, full ROM, normal capillary refill, pedal edema, other (bilateral lower extremity 2+ pitting edema). Absent: tenderness, joint swelling, calf tenderness Back exam: Present: normal inspection Neurological exam: Present: alert, oriented X3, CN II-XII intact Skin exam: Present: warm, dry, intact, normal color. Absent: rash Course Vital Signs 04/16/24 04/16/24 11:48 13:15 Temperature 98 F Pulse Rate 107 H 98 Respiratory 20 18 Rate Blood Pressure 89/56 93/57 O2 Sat by Pulse 97 97 Oximetry Medical Decision Making - Medical Decision Making Was pt. sent in by a medical professional or institution (, PA, NON CATEGORICAL PRESCHOOL TEACHER, urgent care, hospital, or custodial...) When possible be specific @ -Patient was advised by primary care provider to report to emergency department for abnormal labs with a low sodium Did you speak to anyone other than the patient for history (EMS, parent, family, police, friend...)? What history was obtained from this source @ -Significant other at bedside states that the patient has a history of cirrhosis and is on multiple medications for this and follows with a GI specialist Did you review nursing and triage notes (agree or disagree)? Why? @ -I reviewed and agree with nursing and triage notes Were old charts reviewed (outside hosp., previous admission, EMS record, old EKG, old radiological studies, urgent care reports/EKG's, custodial records)? Report findings @ -I reviewed the patient's progress note from 04/08/2024 from patient's primary care provider where she was discharged home with limited treatment options for treating hyponatremia she was continued on fluid restriction and instructed to follow-up outpatient with a guarded prognosis Differential Diagnosis (chest pain, altered mental status, abdominal pain women, abdominal pain men, vaginal bleeding, weakness, fever, dyspnea, syncope, headache, dizziness, GI bleed, back pain, seizure, CVA, palpatations, mental health, musculoskeletal)? @ -Differential Abdominal Pain Women: Appendicitis, Cholecystitis, diverticulosis, ischemic bowel, pancreatitis, hepatitis, UTI, gastroenteritis, AAA, incarcerated hernia, bowel obstruction, constipation, inflammatory bowel, hepatitis, peptic ulcer disease, splenic infarction, perforated viscus, vulvitis, ovarian torsion, PID, kidney stone, placenta abruption, this is not meant to be an all-inclusive list EKG interpreted by me (3pts min.). @ -Completed and marked 1212 with normal sinus rhythm with ventricular rate of 92, KS 163, QTc 392. No acute signs of ischemia. X-rays interpreted by me (1pt min.). @ -None done CT interpreted by me (1pt min.). @ -None done U/S interpreted by me (1pt. min.). @ -None done What testing was considered but not performed or refused? (CT, X-rays, U/S, labs)? Why? @ -None What meds were considered but not given or refused? Why? @ -lasix was considered but deferred as patient's sodium is 115 and BPs have been running soft therefore is not a candidate for diuretic therapy. Did you discuss the management of the patient with other professionals (professionals i.e. DrAdeel, PA, NON CATEGORICAL PRESCHOOL TEACHER, lab, RT, psych nurse, social science research assistant, senior financial reporting accountant, teacher, patrol officer, leather case finisher)? Give summary @ -spoke with my attending, Dr. Ricketts, in regard to the patient's hyponatremia and it was recommended to consult wet plant operator for further consult. Dr. Sánchez recommended that the patient be admitted to general medicine with neprhology on consult and started on hypertonic saline. spoke with Dr. Shields in regard to the patient's case as well. Was smoking cessation discussed for >3mins.? @ -No Was critical care preformed (if so, how long)? @ -No Were there social determinants of health that impacted care today? How? (Homelessness, low income, unemployed, alcoholism, drug addiction, transportation, low edu. Level, literacy, decrease access to med. care, alf, rehab)? @ -No Was there de-escalation of care discussed even if they declined (Discuss DNR or withdrawal of care, Hospice)? DNR status @ -No What co-morbidities impacted this encounter? (DM, HTN, Smoking, COPD, CAD, Cance r, CVA, ARF, Chemo, Hep., AIDS, mental health diagnosis, sleep apnea, morbid obesity)? @ -None Was patient admitted / discharged? Hospital course, mention meds given and route, prescriptions, significant lab abnormalities, going to OR and other pertinent info. @ -admitted. 44 year old female with abnormal labs, with history of COPD alcohol cirrhosis ascites previous paracentesis. on presentation patient is hypotensive with a BP of 89/56 and heart rate of 107. Patient has bilateral lower extremity pitting edema and abdominal distention with edema. CMP reveals hy ponatremia of 115, hyperkalemia 5.2, chloride 82 CO2 17, BUN 27 creatinine 1.07 and calcium 7.9. I spoke with wet plant operator, Dr. Vargas, in regard to the patient's chronic hyponatremia and it is recommended that the patient be placed on hypertonic saline and admitted to general medicine with nephrology on consult, however hypertonic saline is a medication that is only to be administered in a controlled enviornment and therefore patient will be admitted to ICU care for fluid administration. Discussed with Dr. Ricketts and Dr. Cardenas. Undiagnosed new problem with uncertain prognosis? @ -No Drug Therapy requiring intensive monitoring for toxicity (Heparin, Nitro, Insulin, Cardizem)? @ -No Were any procedures done? @ -No Diagnosis/symptom? @ -hyponatremia Acute, or Chronic, or Acute on Chronic? @ -acute on chronic Uncomplicated (without systemic symptoms) or Complicated (systemic symptoms)? @ -complicated Side effects of treatment? @ -No Exacerbation, Progression, or Severe Exacerbation? @ -No Poses a threat to life or bodily function? How? (Chest pain, [place], KS, pneumonia, PE, COPD, DKA, ARF, appy, cholecystitis, CVA, Diverticulitis, Homicidal, Suicidal, threat to staff... and all critical care pts) @ -No - Lab Data Result diagrams: 04/16/24 12:41 04/16/24 12:41 Lab Results 04/16/24 04/16/24 04/16/24 Range/Units 12:41 12:41 12:41 WBC 12.1 H (3.8-10.6) k/uL RBC 3.14 L (3.80-5.40) m/uL Hgb 10.0 L (11.4-16.0) gm/dL Hct 31.1 L (34.0-46.0) % MCV 99.0 D (80.0-100.0) fL MCH 31.8 (25.0-35.0) pg MCHC 32.1 (31.0-37.0) g/dL RDW 19.5 H (11.5-15.5) % Plt Count 178 D (150-450) k/uL MPV 8.7 Neutrophils % 78 % Lymphocytes % 11 % Monocytes % 7 % Eosinophils % 3 % Basophils % 0 % Neutrophils # 9.4 H (1.3-7.7) k/uL Lymphocytes # 1.3 (1.0-4.8) k/uL Monocytes # 0.8 (0-1.0) k/uL Eosinophils # 0.3 (0-0.7) k/uL Basophils # 0.0 (0-0.2) k/uL Hypochromasia Moderate Poikilocytosis Slight Anisocytosis Slight Macrocytosis Moderate PT 10.7 (10.0-12.5) sec INR 1.0 (<1.2) APTT 29.0 (22.0-30.0) sec Sodium 115 L* (137-145) mmol/L Potassium 5.2 H (3.5-5.1) mmol/L Chloride 82 L (98-107) mmol/L Carbon Dioxide 17 L (22-30) mmol/L Anion Gap 16 mmol/L BUN 27 H (7-17) mg/dL Creatinine 1.07 H (0.52-1.04) mg/dL Est GFR (CKD-EPI)AfAm 74 (>60 ml/min/1.73 sqM) Est GFR (CKD-EPI)NonAf 64 (>60 ml/min/1.73 sqM) Glucose 102 H (74-99) mg/dL Calcium 7.9 L (8.4-10.2) mg/dL Phosphorus 3.8 (2.5-4.5) mg/dL Magnesium 2.3 (1.6-2.3) mg/dL Total Bilirubin 1.0 (0.2-1.3) mg/dL AST 63 H (14-36) U/L ALT 33 (4-34) U/L Alkaline Phosphatase 175 H (38-126) U/L NT-Pro-B Natriuret Pep 136 pg/mL Total Protein 4.7 L (6.3-8.2) g/dL Albumin 2.2 L (3.5-5.0) g/dL Acetone, Qual Negative (Negative) Disposition Clinical Impression: Hyponatremia Disposition: ADMITTED IP TO THIS [facility] Condition: Serious Is patient prescribed a controlled substance at d/c from ED?: No Decision to Admit Reason: Admit from EC Decision Date: 04/16/24 Decision Time: 14:05
[2024-04-16 12:58] LABS: Anisocytosis Slight; Basophils % (A) 0 %; Eosinophils # (A) 0.3 k/uL (0-0.7); Eosinophils % (A) 3 %; HCT 31.1 % (34.0-46.0); Hypochromasia Moderate; Lymphocytes # (A) 1.3 k/uL (1.0-4.8); Lymphocytes % (A) 11 %; MCH 31.8 pg (25.0-35.0); MCHC 32.1 g/dL (31.0-37.0); Macrocytosis Moderate; Mean Platelet Volume 8.7; Monocytes # (A) 0.8 k/uL (0-1.0); Monocytes % (A) 7 %; Neutrophils # (A) 9.4 k/uL (1.3-7.7); Neutrophils % (A) 78 %; Poikilocytosis Slight; RBC 3.14 m/uL (3.80-5.40); RDW 19.5 % (11.5-15.5); WBC 12.1 k/uL (3.8-10.6)
[2024-04-16 13:06] LABS: Platelet Count 178 k/uL (150-450)
[2024-04-16 13:12] LABS: Prothrombin Time 10.7 sec (10.0-12.5)
[2024-04-16 13:23] LABS: ALT 33 U/L (4-34); AST 63 U/L (14-36); African American GFR (CKD) 74 (>60 ml/min/1.73 sqM); Albumin 2.2 g/dL (3.5-5.0); Alkaline Phosphatase 175 U/L (38-126); Anion Gap 16 mmol/L; Blood Urea Nitrogen 27 mg/dL (7-17); Calcium 7.9 mg/dL (8.4-10.2); Carbon Dioxide 17 mmol/L (22-30); Chloride 82 mmol/L (98-107); Glucose 102 mg/dL (74-99); Magnesium 2.3 mg/dL (1.6-2.3); Non-African American GFR(CKD) 64 (>60 ml/min/1.73 sqM); Phosphorus 3.8 mg/dL (2.5-4.5); Potassium 5.2 mmol/L (3.5-5.1); Total Protein 4.7 g/dL (6.3-8.2)
[2024-04-16 13:32] LABS: NT-Pro-B-Type Natriuretic Pept 136 pg/mL
[2024-04-16 13:39] LABS: Sodium 115 mmol/L (137-145)
[2024-04-16] MEDS: FUROSEMIDE 10 MG/ML 4 ML VIAL IV STA (13:58)
[2024-04-16] MEDS ORDERED: NALOXONE 0.4 MG/ML 1 ML VIAL IV PRN (14:05)
[2024-04-16] MEDS: SODIUM CHLORIDE 3%(HYPERTONIC) 500 ML IV ONE ×2 (14:16→15:13)
[2024-04-16 15:26] LABS: Appearance,Urine Clear (Clear); Bilirubin,Urine Negative (Negative); Blood,Urine Negative (Negative); Color,Urine Yellow; Glucose,Urine (UA) Negative (Negative); Ketones,Urine Negative (Negative); Leukocyte Esterase,Urine Negative (Negative); Nitrite,Urine Negative (Negative); PH, Urine 6.5 (5.0-8.0); Protein,Urine Negative (Negative); Specific Gravity,Urine 1.018 (1.001-1.035); Urobilinogen,Urine <2.0 mg/dL (<2.0)
[2024-04-16 15:55] LABS: Glucose,Whole Blood 106 mg/dL (70-110)
[2024-04-16] MEDS: IPRATROPIUM-ALBUTEROL 3 ML NEB INHALATION SCH (19:46)
[2024-04-16] MEDS: NON FORMULARY DRUG (Cariprazine Hcl [Vraylar] 3 MG Capsule) PO SCH (20:09)
[2024-04-16] MEDS: HYDROmorphone 0.5 MG/0.5 ML SYRINGE IVP PRN (20:12)
--- NOTE | 2024-04-16 20:16 | US ---
EXAMINATION TYPE: US abdomen limited DATE OF EXAM: 04/16/2024 COMPARISON: 04/05/24 CLINICAL INDICATION: Female, 44 years old with history of cirrhosis; cirrhosis, assess for ascites. P t does have a drain in the RUQ. TECHNIQUE: Multiple sonographic images of the 4 abdominal quadrants. FINDINGS AND IMPRESSION: No evidence for ascites within the 4 abdominal quadrants [facility] Ike Oliver, , 04/16/2024 8:14 PM
[2024-04-16] MEDS: GABAPENTIN 300 MG CAP PO SCH (21:24)
[2024-04-16] MEDS: QUEtiapine 100 MG TAB PO SCH (21:24)
--- NOTE | 2024-04-17 06:19 | HP ---
HISTORY AND PHYSICAL HISTORY OF PRESENT ILLNESS: Joanna Bagley came to the hospital with severe hyponatremia the emergency room. She is a little bit off balance and dizzy but nothing terrible, worsening lower extremity edema, abdominal bloating, distention, status post cholecystectomy, probable cirrhosis triggered by surgery, drainage bag placed on the right side of the abdomen. She says slowing down. Denies fevers, chills. MEDICATIONS: 1. 3 mg at night. 2. Protonix 40 daily. 3. Seroquel 100 daily. 4. Spironolactone 100 daily. 5. Neurontin 300 t.i.d. 6. DuoNeb q.i.d. 7. mg t.i.d. 8. Spiriva 2 puffs daily. ALLERGIES: Penicillin. PAST MEDICAL HISTORY: GERD, asthma, COPD, cirrhosis of the liver, status post cholecystectomy, bipolar, current everyday smoker, anxiety, bipolar. PHYSICAL EXAMINATION: VITAL SIGNS: Pulse 107, temperature 98, respiratory rate 18 to 20, blood pressure is 89/56, 93/57, O2 97%. CARDIOVASCULAR: S1 and S2. GI: Distended. EXTREMITIES: 2+ edema. NEUROLOGIC: Alert and oriented x3. SKIN: She has some petechiae in the upper chest. HEENT: Normocephalic, atraumatic. Pupils equal, round, reactive. IMPRESSION: 1. Severe hyponatremia. 2. Acute on chronic anemia. 3. Hyperkalemia. 4. Acute on chronic renal insufficiency. GFR is 64 currently. admit her to the ICU. PROGNOSIS: Guarded. Please see further orders. MMODL / IJN: [id number] /
[2024-04-17 06:25] LABS: Anisocytosis Slight; Basophils % (A) 0 %; Eosinophils # (A) 0.4 k/uL (0-0.7); Eosinophils % (A) 4 %; HCT 31.1 % (34.0-46.0); HGB 9.5 gm/dL (11.4-16.0); Hypochromasia Marked; Lymphocytes # (A) 1.2 k/uL (1.0-4.8); Lymphocytes % (A) 13 %; MCH 31.2 pg (25.0-35.0); MCHC 30.6 g/dL (31.0-37.0); MCV 101.9 fL (80.0-100.0); Macrocytosis Moderate; Mean Platelet Volume 8.4; Monocytes # (A) 0.6 k/uL (0-1.0); Monocytes % (A) 7 %; Neutrophils # (A) 6.7 k/uL (1.3-7.7); Neutrophils % (A) 73 %; Platelet Count 181 k/uL (150-450); RBC 3.05 m/uL (3.80-5.40); WBC 9.2 k/uL (3.8-10.6)
[2024-04-17] MEDS: PANTOPRAZOLE 40 MG TABLET PO SCH (06:32)
[2024-04-17] MEDS: MIDODRINE 5 MG TAB PO SCH (06:32)
[2024-04-17 06:41] LABS: ALT 34 U/L (4-34); AST 62 U/L (14-36); African American GFR (CKD) 75 (>60 ml/min/1.73 sqM); Albumin 2.1 g/dL (3.5-5.0); Alkaline Phosphatase 148 U/L (38-126); Anion Gap 6 mmol/L; Blood Urea Nitrogen 26 mg/dL (7-17); Calcium 7.7 mg/dL (8.4-10.2); Carbon Dioxide 13 mmol/L (22-30); Chloride 100 mmol/L (98-107); Glucose 99 mg/dL (74-99); Magnesium 2.3 mg/dL (1.6-2.3); Non-African American GFR(CKD) 65 (>60 ml/min/1.73 sqM); Potassium 4.9 mmol/L (3.5-5.1); Total Bilirubin 0.9 mg/dL (0.2-1.3); Total Protein 4.6 g/dL (6.3-8.2)
[2024-04-17 06:53] LABS: Sodium 119 mmol/L (137-145)
[2024-04-17] MEDS: SODIUM BICARBONATE TAB 650 MG TAB PO SCH ×2 (09:24→17:53)
[2024-04-17] MEDS: DAPAGLIFLOZIN PROPANEDIOL 5 MG TABLET PO SCH (09:24)
[2024-04-17] MEDS: SODIUM BICARB 8.4% 50 ML SYR (1 MEQ/ML) IV STA ×2 (10:01→14:06)
[2024-04-17] MEDS: FUROSEMIDE 10 MG/ML 4 ML VIAL IV SCH (10:01)
--- NOTE | 2024-04-17 10:11 | P.NPCON ---
History of Present Illness - Reason for Consult hyponatremia - History of Present Illness Reason for consultation: Hyponatremia History of present illness: Patient is a 44-year-old female seen in renal consultation for hyponatremia. Patient states she had blood work done outpatient and was told to go to the hospital as her sodium level was 114. When patient came to the hospital her sodium was 115 dated April 16, 2024 at 12:41 PM. She was started on 3% saline. Sodium level was 119 this morning. Urine output has been 40 to 50 cc an hour. Patient does have history of alcohol induced liver cirrhosis. She does admit to edema in the lower extremities. She is currently on nasal cannula. Oral intake has been fair. Denies vomiting or diarrhea. Denies excessive fluid intake. TSH is normal. Cosyntropin stimulation test done April 03, 2024 was also not suggestive of adrenal insufficiency. She is currently on midodrine. Was also taking Aldactone at home. She had a cholecystectomy done recently and still has a drain. Output from the drain overnight was about 300 cc. Denies personal history of malignancy. Vital signs are stable. General: No acute distress. HEENT: Head exam is unremarkable. On nasal cannula. LUNGS: No audible rhonchi or wheezes. HEART: Rate and Rhythm are regular. ABDOMEN: Distention noted. EXTREMITITES: 2+ edema. Past Medical History Past Medical History: GERD/Reflux, Liver Disease Additional Past Medical History / Comment(s): retains fluid,anemia,cirrohis of liver non alcoholic, occ bloody stool, ulcer, bipolar, low sodium levels History of Any Multi-Drug Resistant Organisms: None Reported Past Surgical History: Cholecystectomy, EPS Additional Past Surgical History / Comment(s): has had 4 scopes, paracentesis unable to get any fluid out at the time., paracentesis Past Anesthesia/Blood Transfusion Reactions: No Reported Reaction Additional Past Anesthesia/Blood Transfusion Reaction / Comment(s): 3 units of blood transfused in around february 03. Past Psychological History: Anxiety, Bipolar Smoking Status: Current some day smoker Past Alcohol Use History: Abuse Additional Past Alcohol Use History / Comment(s): 1 pk/every 2 days/ 20yrs, did not drink for 10months and then started drinking again states "I stopped again a week ago." Past Drug Use History: None Reported Medications and Allergies Home Medications Medication Instructions Recorded Confirmed Type Cariprazine HCl [Vraylar] 3 mg PO HS 03/20/23 04/16/24 History Pantoprazole [Protonix] 40 mg PO DAILY 03/20/23 04/16/24 History QUEtiapine [SEROquel] 100 tab PO HS 03/20/23 04/16/24 History Spironolactone 100 mg PO DAILY 03/20/23 04/16/24 History Budesonide-Formot 160-4.5 Mcg 2 puff INHALATION RT-BID 30 Days 02/24/24 04/16/24 Rx [Symbicort 160-4.5 Mcg Inhaler] #1 each Dapagliflozin Propanediol [Farxiga] 5 mg PO DAILY 90 Days #90 tab 04/08/24 04/16/24 Rx Sodium Bicarbonate Tab 650 mg PO DAILY 90 Days #90 tab 04/08/24 04/16/24 Rx Gabapentin [Neurontin] 300 mg PO TID 04/16/24 04/16/24 History Ipratropium-Albuterol Nebulize 3 ml INHALATION RT-TID 04/16/24 04/16/24 History [Duoneb 0.5 mg-3 mg/3 ml Soln] Midodrine [ProAmatine] 5 mg PO TID 04/16/24 04/16/24 History Tiotropium 2.5 Mcg/Puff [Spiriva 1 puff INHALATION RT-DAILY 04/16/24 04/16/24 History Respimat 2.5 Mcg] Allergies Allergy/AdvReac Type Severity Reaction Status Date / Time Penicillins Allergy Anaphylaxis Verified 04/16/24 12:57 Physical Exam Vitals: Vital Signs Temp Pulse Pulse Resp BP BP Pulse Ox 04/17/24 08:22 100 04/17/24 08:13 107 H 97 04/17/24 07:00 100 12 110/63 96 04/17/24 06:00 98 12 87/62 97 04/17/24 05:00 114 H 18 93/55 95 04/17/24 04:00 98.4 F 96 12 97/56 96 04/17/24 03:00 98 22 104/62 97 04/17/24 02:00 94 15 117/64 96 04/17/24 01:00 90 9 L 102/61 98 04/17/24 00:06 103 H 12 102/61 96 04/17/24 00:00 97.6 F 100 8 L 107/68 95 04/16/24 23:00 97 10 L 107/48 98 04/16/24 22:00 99 11 L 97/63 97 04/16/24 21:00 101 H 12 94/55 94 L 04/16/24 20:00 98.4 F 101 H 12 106/45 95 04/16/24 19:58 97 04/16/24 19:48 97 04/16/24 19:00 97 13 106/61 98 04/16/24 18:00 105 H 13 96/58 97 04/16/24 17:00 93 15 103/57 97 04/16/24 16:00 96 13 103/57 97 04/16/24 15:51 97.6 F 99 16 114/55 96 04/16/24 15:12 97 18 85/50 96 04/16/24 13:15 98 18 93/57 97 04/16/24 11:48 98 F 107 H 20 89/56 97 Intake and Output 04/16/24 04/17/24 04/17/24 22:59 06:59 14:59 Intake Total 475 500 75 Output Total 375 305 125 Balance 100 195 -50 Intake: IV 175 200 75 Sodium Chloride 3%( 175 200 75 Hypertonic) 500 ml @ 25 mls/hr IV .Q20H ONE Rx#: [id number] Oral 300 300 Output: Urine 375 305 125 Other: Voiding Method Indwelling Catheter Indwelling Catheter Indwelling Catheter # Bowel Movements 1 Weight 115.666 kg 114.4 kg Results - Lab Results Most recent lab results Calcium 7.7 mg/dL (8.4-10.2) L 04/17/24 05:45 Phosphorus 3.8 mg/dL (2.5-4.5) 04/16/24 12:41 Magnesium 2.3 mg/dL (1.6-2.3) 04/17/24 05:45 04/17/24 05:45 04/17/24 05:45 Assessment and Plan Plan: Assessment: 1. Hyponatremia. Hypervolemic. Improved with 3%. TSH normal. Cosyntropin stimulation test done April 03, 2024 negative. 2. Alcohol induced liver cirrhosis. 3. Volume overload. 4. Anemia. Rule out iron deficiency. 5. Metabolic acidosis secondary to IV fluids and compensatory for underlying respiratory alkalosis due to liver cirrhosis. Plan: Maintain fluid restriction. Add IV Lasix 40 mg twice daily. Stop 3%. Repeat sodium level at noon. Follow-up urine studies. Increase bicarb frequency to 3 times daily. Check iron studies. Repeat sodium level at noon. Thank you for the consultation. I will continue to follow the patient with you during her hospital stay.
--- NOTE | 2024-04-17 11:57 | P.CNPUL ---
History of Present Illness Consult date: 04/17/24 Requesting physician: Luis Alfredo Shields Reason for consult: other (ICU management, patient was admitted with hyponatremia requiring hypertonic saline) Chief complaint: Low-sodium History of present illness: This is a 44-year-old female with known history of cirrhosis of the liver, patient quit drinking alcohol in the last 6 months. Patient does have history of chronic fluid retention and ascites related to her chronic liver disease, and she has history of chronic hyponatremia. Her sodium has always been in the range of 1 20-1 26 at best over the last few months. And the patient had multiple admissions with hyponatremia. Apparently the patient came to the hospital yesterday because outpatient blood test showed a sodium of 114. Patient had no major symptoms except for generalized weakness no symptoms of seizures or seizures activity. Patient was seen in the ER, and the recommendation was to start the patient on 3% saline and admit the patient to the ICU for 3% saline infusion. She did receive 3% saline, and her sodium this morning is 119. Her mental status seems to be very appropriate. Patient is hemodynamically stable, she is on diuretics at home in the form of Aldactone. Patient had no previous history of malignancy. And in the past her low sodium has been diagnosed to be related to her liver disease and possibly underlying SIADH. Patient was recently in the hospital for cholecystectomy this was done by Dr. José Miguel wynn, and she continues to have some persistent oozing and drainage from her abdominal wall at the site of her SALVADOR drain. Patient denies any shortness of breath no cough no wheezing no chest pain. CBC is relatively normal basic metabolic profile showed a sodium of 119 bicarb is 13 patient received sodium bicarb as ordered by nephrology her BUN is 26 creatinine 1.06. Liver enzymes noted her ammonia level is 39 Review of Systems CONSTITUTIONAL: Generalized weakness and fluid retention no weight loss. EARS, NOSE, MOUTH, THROAT: Denies headaches, denies sore throat. CARDIOVASCULAR: Denies chest pain, palpitations or syncopal episodes. RESPIRATORY: Denies shortness of breath, cough, congestion or hemoptysis. GASTROINTESTINAL: Denies change in appetite, abdominal pain, nausea and vomiting, or diarrhea GENITOURINARY: Denies hematuria, denies infections. MUSKULOSKELETAL: Denies pain, denies swelling. INTEGUMENTARY: Denies rash, denies eczema. NEUROLOGICAL: Denies recent memory loss, no recent seizure activity. PSYCHIATRIC: Denies anxiety, denies depression. HEMATOLOGIC/LYMPHATIC: Denies anemia, denies enlarged lymph node Past Medical History Past Medical History: GERD/Reflux, Liver Disease Additional Past Medical History / Comment(s): retains fluid,anemia,cirrohis of liver non alcoholic, occ bloody stool, ulcer, bipolar, low sodium levels History of Any Multi-Drug Resistant Organisms: None Reported Past Surgical History: Cholecystectomy, EPS Additional Past Surgical History / Comment(s): has had 4 scopes, paracentesis unable to get any fluid out at the time., paracentesis Past Anesthesia/Blood Transfusion Reactions: No Reported Reaction Additional Past Anesthesia/Blood Transfusion Reaction / Comment(s): 3 units of blood transfused in around february 03. Past Psychological History: Anxiety, Bipolar Smoking Status: Current some day smoker Past Alcohol Use History: Abuse Additional Past Alcohol Use History / Comment(s): 1 pk/every 2 days/ 20yrs, did not drink for 10months and then started drinking again states "I stopped again a week ago." Past Drug Use History: None Reported Medications and Allergies Home Medications Medication Instructions Recorded Confirmed Type Cariprazine HCl [Vraylar] 3 mg PO HS 03/20/23 04/16/24 History Pantoprazole [Protonix] 40 mg PO DAILY 03/20/23 04/16/24 History QUEtiapine [SEROquel] 100 tab PO HS 03/20/23 04/16/24 History Spironolactone 100 mg PO DAILY 03/20/23 04/16/24 History Budesonide-Formot 160-4.5 Mcg 2 puff INHALATION RT-BID 30 Days 02/24/24 04/16/24 Rx [Symbicort 160-4.5 Mcg Inhaler] #1 each Dapagliflozin Propanediol [Farxiga] 5 mg PO DAILY 90 Days #90 tab 04/08/24 04/16/24 Rx Sodium Bicarbonate Tab 650 mg PO DAILY 90 Days #90 tab 04/08/24 04/16/24 Rx Gabapentin [Neurontin] 300 mg PO TID 04/16/24 04/16/24 History Ipratropium-Albuterol Nebulize 3 ml INHALATION RT-TID 04/16/24 04/16/24 History [Duoneb 0.5 mg-3 mg/3 ml Soln] Midodrine [ProAmatine] 5 mg PO TID 04/16/24 04/16/24 History Tiotropium 2.5 Mcg/Puff [Spiriva 1 puff INHALATION RT-DAILY 04/16/24 04/16/24 History Respimat 2.5 Mcg] Allergies Allergy/AdvReac Type Severity Reaction Status Date / Time Penicillins Allergy Anaphylaxis Verified 04/16/24 12:57 Physical Exam Vitals: Vital Signs Temp Pulse Pulse Resp BP BP Pulse Ox 04/17/24 11:00 105 H 14 100/47 98 04/17/24 10:00 96 14 100/47 98 04/17/24 09:00 100 13 97 04/17/24 08:22 100 04/17/24 08:13 107 H 97 04/17/24 08:00 97 14 97/57 98 04/17/24 07:00 100 12 110/63 96 04/17/24 06:00 98 12 87/62 97 04/17/24 05:00 114 H 18 93/55 95 04/17/24 04:00 98.4 F 96 12 97/56 96 04/17/24 03:00 98 22 104/62 97 04/17/24 02:00 94 15 117/64 96 04/17/24 01:00 90 9 L 102/61 98 04/17/24 00:06 103 H 12 102/61 96 04/17/24 00:00 97.6 F 100 8 L 107/68 95 04/16/24 23:00 97 10 L 107/48 98 04/16/24 22:00 99 11 L 97/63 97 04/16/24 21:00 101 H 12 94/55 94 L 04/16/24 20:00 98.4 F 101 H 12 106/45 95 04/16/24 19:58 97 04/16/24 19:48 97 04/16/24 19:00 97 13 106/61 98 04/16/24 18:00 105 H 13 96/58 97 04/16/24 17:00 93 15 103/57 97 04/16/24 16:00 96 13 103/57 97 04/16/24 15:51 97.6 F 99 16 114/55 96 04/16/24 15:12 97 18 85/50 96 04/16/24 13:15 98 18 93/57 97 04/16/24 11:48 98 F 107 H 20 89/56 97 Intake and Output 04/16/24 04/17/24 04/17/24 22:59 06:59 14:59 Intake Total 475 500 125 Output Total 375 305 680 Balance 100 195 -555 Intake: IV 175 200 125 Sodium Chloride 3%( 175 200 125 Hypertonic) 500 ml @ 25 mls/hr IV .Q20H [facility] Rx#: [id number] Oral 300 300 Output: Urine 375 305 680 Other: Voiding Method Indwelling Catheter Indwelling Catheter Indwelling Catheter # Bowel Movements 1 Weight 115.666 kg 114.4 kg GENERAL EXAM: 44-year-old female in no distress, asymptomatic during my evaluation in the ICU. On room air, O2 sats is 98% HEAD: Normocephalic and atraumatic EYES: Normal reaction of pupils, equal size. NOSE: Clear with pink turbinates. THROAT: No erythema or exudates. NECK: No masses, no JVD. CHEST: No chest wall deformity. LUNGS: Clear bilaterally no crackles rhonchi or wheezes CVS: S1 and S2 normal with grade 2 systolic murmur, regular rhythm. No other extra heart sounds ABDOMEN: Abdominal distention with ascites and large amount of serous output from right-sided SALVADOR drain sites. Being collected in a back pain SKIN: Spider angiomas located on face and chest CENTRAL NERVOUS SYSTEM: Alert oriented x 3 no gross focal deficit EXTREMITIES: 2+ bipedal edema, no cyanosis, good distal pulses Results - Laboratory Findings CBC and BMP: 04/17/24 05:45 04/17/24 05:45 PT/INR, D-dimer PT 10.7 sec (10.0-12.5) 04/16/24 12:41 INR 1.0 (<1.2) 04/16/24 12:41 Abnormal lab findings: Abnormal Labs 04/16/24 04/16/24 04/16/24 12:41 12:41 14:44 WBC 12.1 H RBC 3.14 L Hgb 10.0 L Hct 31.1 L MCV MCHC RDW 19.5 H Neutrophils # 9.4 H Sodium 115 L* 115 L* Potassium 5.2 H Chloride 82 L Carbon Dioxide 17 L BUN 27 H Creatinine 1.07 H Glucose 102 H Calcium 7.9 L AST 63 H Alkaline Phosphatase 175 H Ammonia Total Protein 4.7 L Albumin 2.2 L Ur Random Sodium 04/16/24 04/16/24 04/16/24 14:59 16:12 18:08 WBC RBC Hgb Hct MCV MCHC RDW Neutrophils # Sodium 116 L* 117 L* Potassium Chloride Carbon Dioxide BUN Creatinine Glucose Calcium AST Alkaline Phosphatase Ammonia Total Protein Albumin Ur Random Sodium <20 L 04/16/24 04/16/24 04/16/24 19:57 19:57 21:57 WBC RBC Hgb Hct MCV MCHC RDW Neutrophils # Sodium 117 L* 117 L* Potassium Chloride Carbon Dioxide BUN Creatinine Glucose Calcium AST Alkaline Phosphatase Ammonia 39 H Total Protein Albumin Ur Random Sodium 04/16/24 04/17/24 04/17/24 23:54 02:01 05:45 WBC RBC 3.05 L Hgb 9.5 L Hct 31.1 L MCV 101.9 H MCHC 30.6 L RDW 19.0 H Neutrophils # Sodium 118 L* 120 L Potassium Chloride Carbon Dioxide BUN Creatinine Glucose Calcium AST Alkaline Phosphatase Ammonia Total Protein Albumin Ur Random Sodium 04/17/24 05:45 WBC RBC Hgb Hct MCV MCHC RDW Neutrophils # Sodium 119 L* Potassium Chloride Carbon Dioxide 13 L BUN 26 H Creatinine 1.06 H Glucose Calcium 7.7 L AST 62 H Alkaline Phosphatase 148 H Ammonia Total Protein 4.6 L Albumin 2.1 L Ur Random Sodium - Diagnostic Findings Additional studies: Ultrasound of abdomen showed no evidence of ascites Assessment and Plan Assessment: Impression: Hypervolemic hyponatremia improving with 3%/hypertonic saline, however the patient will likely benefit more with fluid restriction. History of liver cirrhosis secondary to alcohol Strongly suspect ascites and bipedal edema/fluid overload Chronic anemia History of recent cholecystectomy History of GI bleeding 02/19/2024 requiring EGD history of esophageal varices Underlying COPD, asymptomatic History of bipolar disorder Chronic thrombocytopenia Recommendation: Continue 3% saline for now Fluid restriction Agree with diuretics and sodium bicarb Continue drainage from the SALVADOR insertion site Continue to monitor daily electrolytes Once we make a decision no need for 3% saline, patient could be transferred to regular medical floor Will continue to follow Time with Patient: Greater than 30
[2024-04-17 13:19] LABS: African American GFR (CKD) 75 (>60 ml/min/1.73 sqM); Anion Gap 8 mmol/L; Blood Urea Nitrogen 26 mg/dL (7-17); Calcium 7.4 mg/dL (8.4-10.2); Carbon Dioxide 14 mmol/L (22-30); Chloride 98 mmol/L (98-107); Glucose 171 mg/dL (74-99); Non-African American GFR(CKD) 65 (>60 ml/min/1.73 sqM); Sodium 120 mmol/L (137-145)
[2024-04-17 13:32] LABS: Potassium 4.6 mmol/L (3.5-5.1)
[2024-04-17] MEDS: ALBUMIN HUMAN 25% 50 ML in EMPTY BAG 1 BAG IVPB SCH (14:07)
[2024-04-17 17:04] LABS: Ionized Calcium 4.4 mg/dL (4.5-5.3)
[2024-04-17 17:13] LABS: African American GFR (CKD) 67 (>60 ml/min/1.73 sqM); Anion Gap 26 mmol/L; Blood Urea Nitrogen 26 mg/dL (7-17); Calcium 7.7 mg/dL (8.4-10.2); Carbon Dioxide 18 mmol/L (22-30); Chloride 79 mmol/L (98-107); Glucose 115 mg/dL (74-99); Non-African American GFR(CKD) 58 (>60 ml/min/1.73 sqM); Potassium 3.8 mmol/L (3.5-5.1); Sodium 123 mmol/L (137-145)
--- NOTE | 2024-04-17 20:40 | PN ---
PROGRESS NOTE She had abdominal ultrasound. She was admitted for hyponatremia. No evidence of ascites in 4 quadrants. Nephrology put her on 3% normal saline overnight. There are no signs of ascites in the abdomen. OBJECTIVE: CARDIOVASCULAR: S1, S2. LUNGS: Transmitted upper sounds. GI: Soft. HEMATOLOGY: Negative for Homans. Sodium is up to 119 today. BUN is 26, creatinine 1.06. Hyponatremia, hypervolemic, improved with 3% liver cirrhosis, volume overload, anemia, metabolic acidosis . Continue fluid restriction and started on IV Lasix. Repeat sodium. Follow up urine. Monitor renal function. Increase bicarb. Check iron. MMODL / IJN: [id number] /
[2024-04-18 00:05] LABS: % Iron Saturation 13.17 (12.00-45.00)
[2024-04-18] MEDS: NOREPINEPHRINE 4 MG in SODIUM CHLORIDE 0.9% 250 ML IV SCH (03:30)
[2024-04-18 05:58] LABS: Anisocytosis Slight; Basophils % (A) 0 %; Eosinophils # (A) 0.3 k/uL (0-0.7); Eosinophils % (A) 4 %; HCT 26.7 % (34.0-46.0); HGB 8.7 gm/dL (11.4-16.0); Hypochromasia Moderate; Lymphocytes # (A) 1.3 k/uL (1.0-4.8); Lymphocytes % (A) 17 %; MCH 32.5 pg (25.0-35.0); MCHC 32.7 g/dL (31.0-37.0); MCV 99.6 fL (80.0-100.0); Macrocytosis Moderate; Mean Platelet Volume 8.3; Monocytes # (A) 0.5 k/uL (0-1.0); Monocytes % (A) 7 %; Neutrophils # (A) 4.8 k/uL (1.3-7.7); Neutrophils % (A) 68 %; Platelet Count 131 k/uL (150-450); RBC 2.68 m/uL (3.80-5.40); RDW 19.7 % (11.5-15.5); WBC 7.2 k/uL (3.8-10.6)
[2024-04-18] MEDS: MIDODRINE 5 MG TAB PO SCH (06:01)
[2024-04-18 06:19] LABS: ALT 28 U/L (4-34); AST 42 U/L (14-36); African American GFR (CKD) 72 (>60 ml/min/1.73 sqM); Albumin 2.2 g/dL (3.5-5.0); Alkaline Phosphatase 121 U/L (38-126); Anion Gap 8 mmol/L; Blood Urea Nitrogen 27 mg/dL (7-17); Calcium 7.8 mg/dL (8.4-10.2); Carbon Dioxide 18 mmol/L (22-30); Chloride 97 mmol/L (98-107); Glucose 103 mg/dL (74-99); Non-African American GFR(CKD) 63 (>60 ml/min/1.73 sqM); Potassium 3.9 mmol/L (3.5-5.1); Sodium 123 mmol/L (137-145); Total Bilirubin 0.9 mg/dL (0.2-1.3); Total Protein 4.5 g/dL (6.3-8.2)
--- NOTE | 2024-04-18 11:24 | P.PN ---
Subjective Progress Note Date: 04/18/24 Principal diagnosis: Hyponatremia. This is a 44-year-old female with known history of cirrhosis of the liver, patient quit drinking alcohol in the last 6 months. Patient does have history of chronic fluid retention and ascites related to her chronic liver disease, and she has history of chronic hyponatremia. Her sodium has always been in the range of 1 20-1 26 at best over the last few months. And the patient had multiple admissions with hyponatremia. Apparently the patient came to the hospital yesterday because outpatient blood test showed a sodium of 114. Patient had no major symptoms except for generalized weakness no symptoms of seizures or seizures activity. Patient was seen in the ER, and the recommendation was to start the patient on 3% saline and admit the patient to the ICU for 3% saline infusion. She did receive 3% saline, and her sodium this morning is 119. Her mental status seems to be very appropriate. Patient is hemodynamically stable, she is on diuretics at home in the form of Aldactone. Patient had no previous history of malignancy. And in the past her low sodium has been diagnosed to be related to her liver disease and possibly underlying SIADH. Patient was recently in the hospital for cholecystectomy this was done by Dr. José Miguel wynn, and she continues to have some persistent oozing and drainage from her abdominal wall at the site of her SALVADOR drain. Patient denies any shortness of breath no cough no wheezing no chest pain. CBC is relatively normal basic metabolic profile showed a sodium of 119 bicarb is 13 patient received sodium bicarb as ordered by nephrology her BUN is 26 creatinine 1.06. Liver enzymes noted her ammonia level is 39 Progress note dated April 18, 2024. 44-year-old female seen yesterday in consultation. She has a history of cirrhosis, chronic alcohol abuse, and a recent admission to the hospital, at which time, she was being treated for hyponatremia. The patient was readmitted to the hospital, with hyponatremia, on April 16, with a sodium of 114. Today, her sodium is 123. She is currently on 2 L of oxygen. The patient is receiving norepinephrine at 0.02 mcg/kg/min. She is also getting saline at 20 cc an hour. On her previous admission, the patient had refractory hyponatremia, despite aggressive treatment with 3% saline, and other medications. Current laboratory data includes a white count 7.2, hemoglobin 8.7, hematocrit 26.7, and platelet count of 131,000. Sodium 123, potassium 3.9, chlorides 97, CO2 18, BUN 27, and creatinine 1.09. Objective - Vital Signs Vital signs: Vital Signs Temp 98.4 F 04/18/24 08:00 Pulse 98 04/18/24 11:00 Resp 12 04/18/24 11:00 BP 90/47 04/18/24 11:00 Pulse Ox 96 04/18/24 11:00 FiO2 Intake & Output 04/17/24 04/18/24 04/18/24 18:59 06:59 18:59 Intake Total 717 377.267 306.878 Output Total 1835 920 535 Balance -1118 -542.733 -228.122 Intake: IV 175 Albumin Human 25% 50 ml 100 In Empty Bag 1 bag @ 50 mls/hr IVPB Q1H [facility] Rx#: [id number] Sodium Chloride 3%( 75 Hypertonic) 500 ml @ 25 mls/hr IV .Q20H [facility] Rx#: [id number] Intake, IV Titration 37.267 26.878 Amount Norepinephrine 4 mg In 37.267 26.878 Sodium Chloride 0.9% 250 ml @ 0.03 MCG/KG/MIN 13. 076 mls/hr IV .[id number] [facility] Rx#:[id number] Oral 542 300 280 Tube Feeding 40 Output: Drainage 50 0 Right Lower Abdomen 50 0 Urine 1835 870 535 Other: Voiding Method Indwelling Catheter Indwelling Catheter Indwelling Catheter # Bowel Movements 0 - Exam No acute distress, oriented 3. Respiratory distress. Currently on 2 L of oxygen by nasal cannula. HEENT examination is grossly unremarkable. Mucous membranes are moist. No oral lesions. Neck supple. Full range of motion. No adenopathy thyromegaly or neck vein distention. Cardiovascular examination reveals regular rhythm rate. S1-S2 normal. No S3 or S4. No discernible murmur noted. Lungs reveal clear breath sounds. Breath sounds are equal bilaterally. No adventitious lung sounds including wheezes rhonchi or crackles. Abdomen soft bowel sounds are heard. No masses or tenderness. Extremities are intact. No cyanosis clubbing or edema. Skin is without rash or lesion. Neurologic examination is brief but nonfocal. - Labs CBC & Chem 7: 04/18/24 05:44 04/18/24 05:44 Labs: Abnormal Lab Results - Last 24 Hours (Table) 04/16/24 04/17/24 04/17/24 Range/Units 14:44 05:45 12:35 RBC (3.80-5.40) m/uL Hgb (11.4-16.0) gm/dL Hct (34.0-46.0) % RDW (11.5-15.5) % Plt Count (150-450) k/uL Sodium 120 L (137-145) mmol/L Chloride (98-107) mmol/L Carbon Dioxide 14 L (22-30) mmol/L BUN 26 H (7-17) mg/dL Creatinine 1.05 H (0.52-1.04) mg/dL Glucose 171 H (74-99) mg/dL Osmolality 255 L (275-295) mOsm/kg Calcium 7.4 L (8.4-10.2) mg/dL Ionized Calcium [place] (4.5-5.3) mg/dL Iron 37 L (50-170) UG/DL Transferrin 201.0 L (204.0-354.0) mg/dL AST (14-36) U/L Total Protein (6.3-8.2) g/dL Albumin (3.5-5.0) g/dL 04/17/24 04/18/24 04/18/24 Range/Units 16:46 05:44 05:44 RBC 2.68 L (3.80-5.40) m/uL Hgb 8.7 L (11.4-16.0) gm/dL Hct 26.7 L (34.0-46.0) % RDW 19.7 H (11.5-15.5) % Plt Count 131 L (150-450) k/uL Sodium 123 L 123 L (137-145) mmol/L Chloride 79 L 97 L (98-107) mmol/L Carbon Dioxide 18 L 18 L (22-30) mmol/L BUN 26 H 27 H (7-17) mg/dL Creatinine 1.16 H 1.09 H (0.52-1.04) mg/dL Glucose 115 H 103 H (74-99) mg/dL Osmolality (275-295) mOsm/kg Calcium 7.7 L 7.8 L (8.4-10.2) mg/dL Ionized Calcium [place] 4.4 L (4.5-5.3) mg/dL Iron (50-170) UG/DL Transferrin (204.0-354.0) mg/dL AST 42 H (14-36) U/L Total Protein 4.5 L (6.3-8.2) g/dL Albumin 2.2 L (3.5-5.0) g/dL Assessment and Plan Assessment: Hypervolemic hyponatremia, improved, on 3% saline. History of liver cirrhosis, secondary to chronic alcohol abuse. History of chronic anemia. Ascites. History of recent cholecystectomy. History of GI bleed, February 19, 2024, requiring EGD. History of esophageal varices. History of COPD. History of bipolar disorder. History of chronic thrombocytopenia. Plan: Plan dated April 18, 2024. The patient is seen in the intensive care unit, room 262. She came in with an admission sodium of 114. Today sodium is 123. She was on 3% saline. That has been discontinued. The patient is getting saline at 20 cc an hour. She is on nasal O2 at 2 L. She continues on norepinephrine at 0.02 mcg/kg/min. Not sure why the patient is hypotensive, but, I have asked for a urinalysis. The patient is having lower abdominal pain. Labs, x-rays, and medications are reviewed. Will continue to follow the patient, and make recommendations. Prognosis is guarded. Sodium is much improved. Time with Patient: Greater than 30
--- NOTE | 2024-04-18 11:35 | P.CONS ---
History of Present Illness - Reason for Consult Consult date: 04/18/24 Cirrhosis Requesting physician: Luis Alfredo Shields - Chief Complaint Abnormal labs - History of Present Illness This a pleasant 44-year-old female who presented to the emergency department directed by her PCP for abnormal labs. Apparently patient was having outpatient labs and was noted to have low sodium and was told to come to the emergency department. She was recently hospitalized from 03/21/2024 and discharged on 04/08/2024. Patient was scheduled for outpatient cholecystectomy and underwent that on 03/21/[address] Corrigan and was hospitalized and discharged on 04/08/2024 following some reported complications following surgery. 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 States she quit drinking about 6 months ago. She was seen by gastroenterology in January of this year for complaints of abdominal pain and dark stools to rule out GI bleed. She had an upper endoscopy done during that hospitalization and 02/19/2024 with findings of antral ulcer, small distal esophageal varices with no stigmata of recent bleeding, and mild to moderate gastritis. Patient was admitted with severe hyponatremia, hypotension and admitted to the ICU. 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 She states that she had seen her PCP and was directed that she could take her spironolactone 100 mg daily. She states she only took it for 1 day and then was called with her abnormal labs told to come in for further evaluation for outpatient sodium of 114. Gastroenterology consulted for cirrhosis. Patient still has leaking from surgical site and he has an ostomy bag. She is currently in the ICU, Levophed was started about 2 AM according to the nurse. Spironolactone has been discontinued she is on 3% saline and started on bicarb and Lasix 40 mg every 12 hours. Patient denies any abdominal pain, nausea or vomiting. She has been afebrile. WBC 7.2 hemoglobin 8.7 hematocrit 26 platelet count 131,000 sodium 123 potassium 3.9 BUN 27 creatinine 1.09 iron 37 saturation 13 ferritin 224 total bilirubin 0.9 AST 42 ALT 28 alkaline phosphatase 121 Review of Systems REVIEW OF SYSTEMS: CARDIOPULMONARY: No chest pain or shortness of breath. Gastrointestinal: No abdominal pain. Abdominal distention present. No nausea or vomiting. No hematemesis, coffee-ground emesis. No rectal bleeding, or melena. Ostomy bag over surgical site with ascites draining GENITOURINARY: No dysuria or hematuria. MUSCULOSKELETAL: Reports normal range of motion. SKIN: No rashes. No jaundice. ENDOCRINE: No chills, fevers. No excessive weight gain or loss. No polydipsia or polyuria. PSYCHIATRIC: Unremarkable. NEUROLOGY: No change in mental status. Denies dizziness, headache. ENT: Vision unremarkable. CONSTITUTIONAL: No recent weight loss. No fever, chills, night sweats. Past Medical History Past Medical History: GERD/Reflux, Liver Disease Additional Past Medical History / Comment(s): retains fluid,anemia,cirrohis of liver non alcoholic, occ bloody stool, ulcer, bipolar, low sodium levels History of Any Multi-Drug Resistant Organisms: None Reported Past Surgical History: Cholecystectomy, EPS Additional Past Surgical History / Comment(s): has had 4 scopes, paracentesis unable to get any fluid out at the time., paracentesis Past Anesthesia/Blood Transfusion Reactions: No Reported Reaction Additional Past Anesthesia/Blood Transfusion Reaction / Comm: 3 units of blood transfused in around february 03. Past Psychological History: Anxiety, Bipolar Smoking Status: Current some day smoker Past Alcohol Use History: Abuse Additional Past Alcohol Use History / Comment(s): 1 pk/every 2 days/ 20yrs, did not drink for 10months and then started drinking again states "I stopped again a week ago." Past Drug Use History: None Reported Medications and Allergies Home Medications Medication Instructions Recorded Confirmed Type Cariprazine HCl [Vraylar] 3 mg PO HS 03/20/23 04/16/24 History Pantoprazole [Protonix] 40 mg PO DAILY 03/20/23 04/16/24 History QUEtiapine [SEROquel] 100 tab PO HS 03/20/23 04/16/24 History Spironolactone 100 mg PO DAILY 03/20/23 04/16/24 History Budesonide-Formot 160-4.5 Mcg 2 puff INHALATION RT-BID 30 Days 02/24/24 04/16/24 Rx [Symbicort 160-4.5 Mcg Inhaler] #1 each Dapagliflozin Propanediol [Farxiga] 5 mg PO DAILY 90 Days #90 tab 04/08/24 04/16/24 Rx Sodium Bicarbonate Tab 650 mg PO DAILY 90 Days #90 tab 04/08/24 04/16/24 Rx Gabapentin [Neurontin] 300 mg PO TID 04/16/24 04/16/24 History Ipratropium-Albuterol Nebulize 3 ml INHALATION RT-TID 04/16/24 04/16/24 History [Duoneb 0.5 mg-3 mg/3 ml Soln] Midodrine [ProAmatine] 5 mg PO TID 04/16/24 04/16/24 History Tiotropium 2.5 Mcg/Puff [Spiriva 1 puff INHALATION RT-DAILY 04/16/24 04/16/24 History Respimat 2.5 Mcg] Allergies Allergy/AdvReac Type Severity Reaction Status Date / Time Penicillins Allergy Anaphylaxis Verified 04/16/24 12:57 Physical Exam Vitals: Vital Signs Temp Pulse Resp BP Pulse Ox 04/18/24 08:38 98 04/18/24 08:29 86 12 98 04/18/24 08:00 98.4 F 91 14 108/60 98 04/18/24 07:45 101 H 16 84/50 97 04/18/24 07:30 111 H 10 L 95/40 96 04/18/24 07:15 9 L 117/59 95 04/18/24 07:00 98.2 F 91 12 99/51 96 04/18/24 06:45 96 11 L 105/57 96 04/18/24 06:30 90 13 111/61 97 04/18/24 06:15 98 27 H 108/51 98 04/18/24 06:00 92 17 91/44 97 04/18/24 05:45 98.2 F 93 121 H 105/50 97 04/18/24 05:30 93 13 106/49 97 04/18/24 05:15 89 11 L 107/54 98 04/18/24 05:00 88 12 103/55 97 04/18/24 04:45 90 11 L 100/48 97 04/18/24 04:30 92 10 L 104/52 98 04/18/24 04:20 93 16 106/55 98 04/18/24 04:10 93 10 L 107/54 98 04/18/24 04:00 96 15 77/61 98 04/18/24 03:50 98 15 117/69 98 04/18/24 03:40 98 9 L 104/50 98 04/18/24 03:30 92 18 75/48 97 04/18/24 03:20 93 11 L 97/51 96 04/18/24 03:10 93 14 97/51 97 04/18/24 03:00 90 18 92/44 97 04/18/24 02:00 91 17 91/47 97 04/18/24 01:00 105 H 16 94/42 97 04/18/24 00:00 98.5 F 93 14 92/40 97 04/17/24 23:00 100 12 88/61 97 04/17/24 22:00 101 H 16 97/44 96 04/17/24 21:00 112 H 29 H 94/60 96 04/17/24 20:40 104 H 04/17/24 20:25 105 H 04/17/24 20:00 98.4 F 108 H 16 101/59 98 04/17/24 19:00 110 H 12 113/57 97 04/17/24 18:00 97 14 83/56 97 04/17/24 17:00 112 H 10 L 94/52 98 04/17/24 16:00 99 16 95/47 98 04/17/24 15:00 100 14 100/51 97 04/17/24 14:00 93 14 80/65 99 04/17/24 13:00 105 H 14 97/49 98 04/17/24 12:03 106 H 04/17/24 12:00 102 H 20 94/65 100 04/17/24 11:53 105 H 04/17/24 11:00 105 H 14 100/47 98 04/17/24 10:00 96 14 100/47 98 Intake and Output 04/17/24 04/18/24 04/18/24 22:59 06:59 14:59 Intake Total 460 337.267 66.878 Output Total 650 550 135 Balance -190 -212.733 -68.122 Intake: IV 100 Albumin Human 25% 50 ml 100 In Empty Bag 1 bag @ 50 mls/hr IVPB Q1H [facility] Rx#: [id number] Intake, IV Titration 37.267 26.878 Amount Norepinephrine 4 mg In 37.267 26.878 Sodium Chloride 0.9% 250 ml @ 0.03 MCG/KG/MIN 13. 076 mls/hr IV .[id number] [facility] Rx#:[id number] Oral 320 300 40 Tube Feeding 40 Output: Drainage 50 0 Right Lower Abdomen 50 0 Urine 650 500 135 Other: Voiding Method Indwelling Catheter Indwelling Catheter Indwelling Catheter # Bowel Movements 0 General appearance: The patient is alert, oriented, appears in no acute distres s. HET: Head is normocephalic and atraumatic. Conjunctiva pink. Sclera anicteric. Neck: Supple without lymphadenopathy. Trachea midline. Heart: Regular. Lungs: Equal expansion, normal respiratory effort. Abdomen: Soft, nontender, nondistended. Right side of abdomen surgical incision with ostomy bag and small amount of clear yellow fluid. Umbilicus with sutures, left abdominal surgical site with sutures Skin: No rashes. No jaundice. Extremities: Normal skin color and turgor. Lower extremity edema. Neurological: No focal deficits. Alert and oriented x3. Results CBC & Chem 7: 04/18/24 05:44 04/18/24 05:44 Labs: Abnormal Lab Results - Last 24 Hours (Table) 04/16/24 04/16/24 04/17/24 Range/Units 14:44 14:59 05:45 RBC (3.80-5.40) m/uL Hgb (11.4-16.0) gm/dL Hct (34.0-46.0) % RDW (11.5-15.5) % Plt Count (150-450) k/uL Sodium (137-145) mmol/L Chloride (98-107) mmol/L Carbon Dioxide (22-30) mmol/L BUN (7-17) mg/dL Creatinine (0.52-1.04) mg/dL Glucose (74-99) mg/dL Osmolality 255 L (275-295) mOsm/kg Calcium (8.4-10.2) mg/dL Ionized Calcium Milton (4.5-5.3) mg/dL Iron 37 L (50-170) UG/DL Transferrin 201.0 L (204.0-354.0) mg/dL AST (14-36) U/L Total Protein (6.3-8.2) g/dL Albumin (3.5-5.0) g/dL Ur Random Sodium <20 L (40-220) mmol/L 04/17/24 04/17/24 04/18/24 Range/Units 12:35 16:46 05:44 RBC (3.80-5.40) m/uL Hgb (11.4-16.0) gm/dL Hct (34.0-46.0) % RDW (11.5-15.5) % Plt Count (150-450) k/uL Sodium 120 L 123 L 123 L (137-145) mmol/L Chloride 79 L 97 L (98-107) mmol/L Carbon Dioxide 14 L 18 L 18 L (22-30) mmol/L BUN 26 H 26 H 27 H (7-17) mg/dL Creatinine 1.05 H 1.16 H 1.09 H (0.52-1.04) mg/dL Glucose 171 H 115 H 103 H (74-99) mg/dL Osmolality (275-295) mOsm/kg Calcium 7.4 L 7.7 L 7.8 L (8.4-10.2) mg/dL Ionized Calcium [place] 4.4 L (4.5-5.3) mg/dL Iron (50-170) UG/DL Transferrin (204.0-354.0) mg/dL AST 42 H (14-36) U/L Total Protein 4.5 L (6.3-8.2) g/dL Albumin 2.2 L (3.5-5.0) g/dL Ur Random Sodium (40-220) mmol/L 04/18/24 Range/Units 05:44 RBC 2.68 L (3.80-5.40) m/uL Hgb 8.7 L (11.4-16.0) gm/dL Hct 26.7 L (34.0-46.0) % RDW 19.7 H (11.5-15.5) % Plt Count 131 L (150-450) k/uL Sodium (137-145) mmol/L Chloride (98-107) mmol/L Carbon Dioxide (22-30) mmol/L BUN (7-17) mg/dL Creatinine (0.52-1.04) mg/dL Glucose (74-99) mg/dL Osmolality (275-295) mOsm/kg Calcium (8.4-10.2) mg/dL Ionized Calcium [place] (4.5-5.3) mg/dL Iron (50-170) UG/DL Transferrin (204.0-354.0) mg/dL AST (14-36) U/L Total Protein (6.3-8.2) g/dL Albumin (3.5-5.0) g/dL Ur Random Sodium (40-220) mmol/L Comments: Abdominal ultrasound reports no evidence for ascites within 4 abdominal quadrants. Assessment and Plan (1) Liver cirrhosis Narrative/Plan: 44-year-old female with known alcohol liver cirrhosis with ascites presented to the hospital directed by her physician for low sodium found on outpatient labs. Patient currently in ICU for hyponatremia and now started on Levophed for hypotension. Continue with symptomatic and supportive care. Continue with recommendations on diuretics from nephrology. No further workup from gastroenterology at this time. Current Visit: No Status: Acute Code(s): K74.60 - UNSPECIFIED CIRRHOSIS OF LIVER SNOMED Code(s): 68825496 (2) Hyponatremia Current Visit: Yes Status: Acute Code(s): E87.1 - HYPO-OSMOLALITY AND HYPONATREMIA SNOMED Code(s): 63558896 (3) Anemia Current Visit: No Status: Acute Code(s): D64.9 - ANEMIA, UNSPECIFIED SNOMED Code(s): 060338548 Plan: 1. Continue symptomatic and supportive care 2. Heart healthy diet 3. Continue with fluid restrictions as ordered 4. Diuretics per nephrology 5. There is no indication for any further workup with gastroenterology. Patient to continue alcohol abstinence and follow-up with gastroenterology in outpatient setting. 6. Continue with recommendations from ICU and nephrology Thank you for this consultation, we will continue to follow. Dr. Rachel Cuenca I agree with the dictator's note, documented as a scribe by Katiuska Fan.
[2024-04-18] MEDS: SODIUM CHLORIDE 3%(HYPERTONIC) 500 ML IV ONE (11:51)
--- NOTE | 2024-04-18 13:04 | P.PN ---
Subjective patient is seen for follow-up for hyponatremia. Status post 3% saline and serum sodium is staying at 123. Significant edema and volume overload noted. We are limited with options for treatment of hyponatremia given the underlying liver cirrhosis and volume overload. Patient has been very sensitive to Lasix with significant hypotension noted with IV Lasix during her last admission as well. Currently maintained on levo fed. Samsca is also not in ideal option given underlying liver cirrhosis. At this time the best option is to use 3% saline along with IV Lasix while patient is in the ICU to bring the sodium to at least 126-127. Output from the belly has decreased significantly compared to her last admission. Objective - Vital Signs Vital signs: Vital Signs Temp 98.4 F 04/18/24 08:00 Pulse 98 04/18/24 11:00 Resp 12 04/18/24 11:00 BP 90/47 04/18/24 11:00 Pulse Ox 96 04/18/24 11:00 FiO2 Intake & Output 04/17/24 04/18/24 04/18/24 18:59 06:59 18:59 Intake Total 717 377.267 306.878 Output Total 1835 920 535 Balance -1118 -542.733 -228.122 Intake: IV 175 Albumin Human 25% 50 ml 100 In Empty Bag 1 bag @ 50 mls/hr IVPB Q1H [facility] Rx#: [id number] Sodium Chloride 3%( 75 Hypertonic) 500 ml @ 25 mls/hr IV .Q20H [facility] Rx#: [id number] Intake, IV Titration 37.267 26.878 Amount Norepinephrine 4 mg In 37.267 26.878 Sodium Chloride 0.9% 250 ml @ 0.03 MCG/KG/MIN 13. 076 mls/hr IV .[id number] [facility] Rx#:[id number] Oral 542 300 280 Tube Feeding 40 Output: Drainage 50 0 Right Lower Abdomen 50 0 Urine 1835 870 535 Other: Voiding Method Indwelling Catheter Indwelling Catheter Indwelling Catheter # Bowel Movements 0 - Exam awake, comfortable, no acute distress. Examination of the heart S1 and S2 Examination of the lungs bilateral breath sounds are heard Abdomen is soft nontender, distended with ascites Examination of lower extremities shows edema 1+ bilaterally [employer] exam grossly intact - Labs CBC & Chem 7: 04/18/24 05:44 04/18/24 05:44 Labs: Abnormal Lab Results - Last 24 Hours (Table) 04/16/24 04/17/24 04/17/24 Range/Units 14:44 05:45 12:35 RBC (3.80-5.40) m/uL Hgb (11.4-16.0) gm/dL Hct (34.0-46.0) % RDW (11.5-15.5) % Plt Count (150-450) k/uL Sodium 120 L (137-145) mmol/L Chloride (98-107) mmol/L Carbon Dioxide 14 L (22-30) mmol/L BUN 26 H (7-17) mg/dL Creatinine 1.05 H (0.52-1.04) mg/dL Glucose 171 H (74-99) mg/dL Osmolality 255 L (275-295) mOsm/kg Calcium 7.4 L (8.4-10.2) mg/dL Ionized Calcium Milton (4.5-5.3) mg/dL Iron 37 L (50-170) UG/DL Transferrin 201.0 L (204.0-354.0) mg/dL AST (14-36) U/L Total Protein (6.3-8.2) g/dL Albumin (3.5-5.0) g/dL 04/17/24 04/18/24 04/18/24 Range/Units 16:46 05:44 05:44 RBC 2.68 L (3.80-5.40) m/uL Hgb 8.7 L (11.4-16.0) gm/dL Hct 26.7 L (34.0-46.0) % RDW 19.7 H (11.5-15.5) % Plt Count 131 L (150-450) k/uL Sodium 123 L 123 L (137-145) mmol/L Chloride 79 L 97 L (98-107) mmol/L Carbon Dioxide 18 L 18 L (22-30) mmol/L BUN 26 H 27 H (7-17) mg/dL Creatinine 1.16 H 1.09 H (0.52-1.04) mg/dL Glucose 115 H 103 H (74-99) mg/dL Osmolality (275-295) mOsm/kg Calcium 7.7 L 7.8 L (8.4-10.2) mg/dL Ionized Calcium [place] 4.4 L (4.5-5.3) mg/dL Iron (50-170) UG/DL Transferrin (204.0-354.0) mg/dL AST 42 H (14-36) U/L Total Protein 4.5 L (6.3-8.2) g/dL Albumin 2.2 L (3.5-5.0) g/dL Assessment and Plan Assessment: 1. Hyponatremia with underlying liver cirrhosis. Currently hypervolemic and responds well to 3% saline. We can also use IV Lasix while patient is on 3% saline due to significant hypotension noted with diuresis on her last admission as well.we're limited with choices for treatment of hyponatremia given the underlying's liver cirrhosis and contraindication to use of Samsca. Patient has developed significant volume overload with sodium chloride tabs therefore this will be avoided. 2. Alcohol-induced liver cirrhosis 3. Volume overload 4. Status post recent cholecystectomy Plan: restart 3% saline. Continue with IV Lasix for now. Repeat sodium in 4 hours. Avoid sodium chloride tabs due to hypervolemia
[2024-04-18] MEDS: SODIUM FERRIC GLUCONAT-SUCROSE 125 MG in SODIUM CHLORIDE 0.9% 100 ML IVPB SCH (17:44)
--- NOTE | 2024-04-18 20:42 | PN ---
PROGRESS NOTE SUBJECTIVE: A 44-year-old female, who is admitted with hyponatremia. She is being given 3% normal saline. IV Lasix has been ordered. Renal function appears to be stable. She has low iron counts, low hemoglobin. Sodium is about 123. Her ascites out of her abdomen has decreased. Her ultrasound of her abdomen shows no studies. OBJECTIVE: LUNGS: Transmitted upper sounds. ABDOMEN: Soft. HEMATOLOGY: 2 to 3+ edema. Hyponatremia with underlying liver cirrhosis. No ultrasound. Ascites seen. Lasix with 3% saline due to hypotension with a Watcher very closely. Volume overload with sodium chloride tabs, therefore this is avoided. Alcohol induced liver cirrhosis, volume overloaded. Continue 3% saline, IV Lasix, low doses IV iron. Prognosis guarded. MMODL / IJN: [id number] /
[2024-04-18] MEDS: SULFAMETHOX-TMP 800-160MG 1 EACH TAB PO SCH (21:12)
[2024-04-19 05:27] LABS: Anisocytosis Slight; HCT 26.5 % (34.0-46.0); HGB 8.5 gm/dL (11.4-16.0); Hypochromasia Moderate; MCH 31.8 pg (25.0-35.0); MCHC 32.1 g/dL (31.0-37.0); MCV 99.1 fL (80.0-100.0); Macrocytosis Moderate; Mean Platelet Volume 8.5; Platelet Count 125 k/uL (150-450); RBC 2.68 m/uL (3.80-5.40); RDW 19.9 % (11.5-15.5); WBC 6.5 k/uL (3.8-10.6)
[2024-04-19 05:28] LABS: ALT 28 U/L (4-34); AST 45 U/L (14-36); African American GFR (CKD) 67 (>60 ml/min/1.73 sqM); Albumin 2.1 g/dL (3.5-5.0); Alkaline Phosphatase 131 U/L (38-126); Anion Gap 7 mmol/L; Blood Urea Nitrogen 28 mg/dL (7-17); Calcium 7.9 mg/dL (8.4-10.2); Carbon Dioxide 19 mmol/L (22-30); Chloride 100 mmol/L (98-107); Glucose 91 mg/dL (74-99); Non-African American GFR(CKD) 58 (>60 ml/min/1.73 sqM); Potassium 3.7 mmol/L (3.5-5.1); Sodium 126 mmol/L (137-145); Total Bilirubin 0.7 mg/dL (0.2-1.3); Total Protein 4.3 g/dL (6.3-8.2)
[2024-04-19] MEDS ORDERED: Potassium Replacement Protocol 1 EACH MISC MISCELLANE PRN (05:49)
[2024-04-19 05:53] LABS: Eosinophils # (M) 0.26 k/uL (0-0.7); Lymphocytes # (M) 1.24 k/uL (1.0-4.8); Neutrophils # (M) 4.81 k/uL (1.3-7.7); Neutrophils % (M) 74 %; Nucleated Red Blood Cells 0 /100 WBC (0-0); Total Cells Counted 100
[2024-04-19] MEDS: POTASSIUM CHLORIDE ER 20 MEQ TAB.ER PO SCH (06:46)
--- NOTE | 2024-04-19 09:48 | P.PN ---
Subjective patient is seen for follow-up for hyponatremia. We are limited with options for treatment of hyponatremia given the underlying liver cirrhosis and volume overload. Therefore patient is not maintained on sodium chloride tabs. Patient has been very sensitive to Lasix with significant hypotension noted with IV Lasix during her last admission as well. Currently maintained on midodrine and off of levo fed. Samsca is also not in ideal option given underlying liver cirrhosis. Status post 3% saline and serum sodium has increased to 126. Maintained on IV Lasix as well. Significant edema and volume overload noted. no significant complaints today. Overall feeling slightly better. Objective - Vital Signs Vital signs: Vital Signs Temp 98.4 F 04/19/24 08:00 Pulse 120 H 04/19/24 09:00 Resp 15 04/19/24 09:00 BP 91/58 04/19/24 09:00 Pulse Ox 95 04/19/24 09:00 FiO2 Intake & Output 04/18/24 04/19/24 04/19/24 18:59 06:59 18:59 Intake Total 828.453 630 0 Output Total 910 1025 165 Balance -81.547 -395 -165 Intake: IV 125 300 0 Sodium Chloride 3%( 25 25 Hypertonic) 500 ml @ 25 mls/hr IV .Q20H [facility] Rx#: [id number] Sodium Chloride 3%( 275 0 Hypertonic) 500 ml @ 25 mls/hr IV .Q20H [facility] Rx#: [id number] Sodium Ferric Gluconat- 100 Sucrose 125 mg In Sodium Chloride 0.9% 100 ml @ 100 mls/hr IVPB DAILY [facility] Rx#:[id number] Intake, IV Titration 65.453 Amount Norepinephrine 4 mg In 65.453 Sodium Chloride 0.9% 250 ml @ 0.03 MCG/KG/MIN 13. 076 mls/hr IV .[id number] [facility] Rx#:[id number] Oral 638 330 Output: Drainage 0 0 Right Lower Abdomen 0 0 Urine 910 1025 165 Other: Voiding Method Indwelling Catheter Indwelling Catheter Indwelling Catheter - Exam awake, comfortable, no acute distress. Examination of the heart S1 and S2 Examination of the lungs bilateral breath sounds are heard Abdomen is soft nontender, distended with ascites Examination of lower extremities shows edema 1+ bilaterally [employer] exam grossly intact - Labs CBC & Chem 7: 04/19/24 05:00 04/19/24 05:00 Labs: Abnormal Lab Results - Last 24 Hours (Table) 04/18/24 04/18/24 04/18/24 Range/Units 14:10 18:02 21:58 RBC (3.80-5.40) m/uL Hgb (11.4-16.0) gm/dL Hct (34.0-46.0) % RDW (11.5-15.5) % Plt Count (150-450) k/uL Sodium 122 L 124 L 124 L (137-145) mmol/L Carbon Dioxide (22-30) mmol/L BUN (7-17) mg/dL Creatinine (0.52-1.04) mg/dL Calcium (8.4-10.2) mg/dL AST (14-36) U/L Alkaline Phosphatase (38-126) U/L Total Protein (6.3-8.2) g/dL Albumin (3.5-5.0) g/dL 04/19/24 04/19/24 04/19/24 Range/Units 02:47 05:00 05:00 RBC 2.68 L (3.80-5.40) m/uL Hgb 8.5 L (11.4-16.0) gm/dL Hct 26.5 L (34.0-46.0) % RDW 19.9 H (11.5-15.5) % Plt Count 125 L (150-450) k/uL Sodium 127 L 126 L (137-145) mmol/L Carbon Dioxide 19 L (22-30) mmol/L BUN 28 H (7-17) mg/dL Creatinine 1.16 H (0.52-1.04) mg/dL Calcium 7.9 L (8.4-10.2) mg/dL AST 45 H (14-36) U/L Alkaline Phosphatase 131 H (38-126) U/L Total Protein 4.3 L (6.3-8.2) g/dL Albumin 2.1 L (3.5-5.0) g/dL Assessment and Plan Assessment: 1. Hyponatremia with underlying liver cirrhosis. Currently hypervolemic and responded well to 3% saline. Lasix will be switched to oral while off of 3% saline. We're limited with choices for treatment of hyponatremia given the underlying's liver cirrhosis and contraindication to use of Samsca. Patient has developed significant volume overload with sodium chloride tabs therefore this will be avoided. 2. Alcohol-induced liver cirrhosis 3. Volume overload 4. Status post recent cholecystectomy Plan: switch Lasix to oral Continue with midodrine Repeat sodium in 4 hours. Avoid sodium chloride tabs due to hypervolemia Samsca not an ideal option due to underlying liver cirrhosis
--- NOTE | 2024-04-19 09:58 | CDI ---
Documentation Clarification Form Date: 04/19/2024 From: Anai Roberts RN CCDS Phone: [phone] Admit Date: 04/16/2024 02:11:00 PM Patient Name: Joanna Bagley Visit Number: [id number] Discharge Date: ATTENTION: The Clinical Documentation Specialists (CDI) and [facility] Coding Staff appreciate your assistance in clarifying documentation. Please respond to the clarification below the line at the bottom and electronically sign. The CDI & [facility] Coding staff will review the response and follow-up if needed. Please note: Queries are made part of the Legal Health Record. If you have any questions, please contact the author of this message via ITS. Doctor/Provider: Luis Alfredo Shields MD: Patient has a documented BMI of 43.3 on 04/16. Additional clarification is requested. History/Risk Factors: 44-year-old female with a history of alcoholic liver disease, hyponatremia who presents with severe hyponatremia, hyperkalemia, worsening lower extremity edema, acute on chronic anemia and acute on chronic renal insufficiency Clinical Indicators: 04/16 Patients weight is 114.4kg Patients height is 5ft 4in Calculated BMI is 43.3 Treatments: Regular diet Please clarify if patients BMI indicates an additional diagnosis: [ ] Morbid (Extreme) (severe) obesity [ ] No additional diagnosis/not clinically significant [ ] Other, please specify ____ [ ] Unable to determine Reference: NIH Classification for BMI Overweight BMI 2529.9 Obesity (Class 1) BMI 3034.9 Obesity (Class 2) BMI 3539.9 Morbid obesity (Class 3/Extreme/severe) BMI =40 MTDD
--- NOTE | 2024-04-19 10:41 | P.PN ---
Subjective Progress Note Date: 04/19/24 Principal diagnosis: Hyponatremia. This is a 44-year-old female with known history of cirrhosis of the liver, patient quit drinking alcohol in the last 6 months. Patient does have history of chronic fluid retention and ascites related to her chronic liver disease, and she has history of chronic hyponatremia. Her sodium has always been in the range of 1 20-1 26 at best over the last few months. And the patient had multiple admissions with hyponatremia. Apparently the patient came to the hospital yesterday because outpatient blood test showed a sodium of 114. Patient had no major symptoms except for generalized weakness no symptoms of seizures or seizures activity. Patient was seen in the ER, and the recommendation was to start the patient on 3% saline and admit the patient to the ICU for 3% saline infusion. She did receive 3% saline, and her sodium this morning is 119. Her mental status seems to be very appropriate. Patient is hemodynamically stable, she is on diuretics at home in the form of Aldactone. Patient had no previous history of malignancy. And in the past her low sodium has been diagnosed to be related to her liver disease and possibly underlying SIADH. Patient was recently in the hospital for cholecystectomy this was done by Dr. José Miguel wynn, and she continues to have some persistent oozing and drainage from her abdominal wall at the site of her SALVADOR drain. Patient denies any shortness of breath no cough no wheezing no chest pain. CBC is relatively normal basic metabolic profile showed a sodium of 119 bicarb is 13 patient received sodium bicarb as ordered by nephrology her BUN is 26 creatinine 1.06. Liver enzymes noted her ammonia level is 39 Progress note dated April 18, 2024. 44-year-old female seen yesterday in consultation. She has a history of cirrhosis, chronic alcohol abuse, and a recent admission to the hospital, at which time, she was being treated for hyponatremia. The patient was readmitted to the hospital, with hyponatremia, on April 16, with a sodium of 114. Today, her sodium is 123. She is currently on 2 L of oxygen. The patient is receiving norepinephrine at 0.02 mcg/kg/min. She is also getting saline at 20 cc an hour. On her previous admission, the patient had refractory hyponatremia, despite aggressive treatment with 3% saline, and other medications. Current laboratory data includes a white count 7.2, hemoglobin 8.7, hematocrit 26.7, and platelet count of 131,000. Sodium 123, potassium 3.9, chlorides 97, CO2 18, BUN 27, and creatinine 1.09. Progress note dated April 19, 2024. 44-year-old female seen again in room 262. Her current sodium is 126. For a brief period of time, she was back on 3% saline. Currently, she is on room air. She is not receiving any IV fluids. Clinically, she has been very stable, and she has had an uneventful night. White count 6.5, hemoglobin 8.5, hematocrit 26.5, and platelet count of 125,000. Sodium 126, potassium 3.7, chlorides 100, CO2 19, BUN 28, creatinine 1.16. Albumin is 2.1. Objective - Vital Signs Vital signs: Vital Signs Temp 98.4 F 04/19/24 08:00 Pulse 120 H 04/19/24 09:00 Resp 15 04/19/24 09:00 BP 91/58 04/19/24 09:00 Pulse Ox 95 04/19/24 09:00 FiO2 Intake & Output 04/18/24 04/19/24 04/19/24 18:59 06:59 18:59 Intake Total 828.453 630 0 Output Total 910 1025 165 Balance -81.547 -395 -165 Intake: IV 125 300 0 Sodium Chloride 3%( 25 25 Hypertonic) 500 ml @ 25 mls/hr IV .Q20H ONE Rx#: [id number] Sodium Chloride 3%( 275 0 Hypertonic) 500 ml @ 25 mls/hr IV .Q20H ONE Rx#: [id number] Sodium Ferric Gluconat- 100 Sucrose 125 mg In Sodium Chloride 0.9% 100 ml @ 100 mls/hr IVPB DAILY [facility] Rx#:[id number] Intake, IV Titration 65.453 Amount Norepinephrine 4 mg In 65.453 Sodium Chloride 0.9% 250 ml @ 0.03 MCG/KG/MIN 13. 076 mls/hr IV .[id number] [facility] Rx#:[id number] Oral 638 330 Output: Drainage 0 0 Right Lower Abdomen 0 0 Urine 910 1025 165 Other: Voiding Method Indwelling Catheter Indwelling Catheter Indwelling Catheter - Exam No acute distress, oriented 3. Respiratory distress. Currently on room air. HEENT examination is grossly unremarkable. Mucous membranes are moist. No oral lesions. Neck supple. Full range of motion. No adenopathy thyromegaly or neck vein distention. Cardiovascular examination reveals regular rhythm rate. S1-S2 normal. No S3 or S4. No discernible murmur noted. Lungs reveal clear breath sounds. Breath sounds are equal bilaterally. No adventitious lung sounds including wheezes rhonchi or crackles. Abdomen soft bowel sounds are heard. No masses or tenderness. Extremities are intact. No cyanosis clubbing or edema. Skin is without rash or lesion. Neurologic examination is brief but nonfocal. - Labs CBC & Chem 7: 04/19/24 05:00 04/19/24 05:00 Labs: Abnormal Lab Results - Last 24 Hours (Table) 04/18/24 04/18/24 04/18/24 Range/Units 14:10 18:02 21:58 RBC (3.80-5.40) m/uL Hgb (11.4-16.0) gm/dL Hct (34.0-46.0) % RDW (11.5-15.5) % Plt Count (150-450) k/uL Sodium 122 L 124 L 124 L (137-145) mmol/L Carbon Dioxide (22-30) mmol/L BUN (7-17) mg/dL Creatinine (0.52-1.04) mg/dL Calcium (8.4-10.2) mg/dL AST (14-36) U/L Alkaline Phosphatase (38-126) U/L Total Protein (6.3-8.2) g/dL Albumin (3.5-5.0) g/dL 04/19/24 04/19/24 04/19/24 Range/Units 02:47 05:00 05:00 RBC 2.68 L (3.80-5.40) m/uL Hgb 8.5 L (11.4-16.0) gm/dL Hct 26.5 L (34.0-46.0) % RDW 19.9 H (11.5-15.5) % Plt Count 125 L (150-450) k/uL Sodium 127 L 126 L (137-145) mmol/L Carbon Dioxide 19 L (22-30) mmol/L BUN 28 H (7-17) mg/dL Creatinine 1.16 H (0.52-1.04) mg/dL Calcium 7.9 L (8.4-10.2) mg/dL AST 45 H (14-36) U/L Alkaline Phosphatase 131 H (38-126) U/L Total Protein 4.3 L (6.3-8.2) g/dL Albumin 2.1 L (3.5-5.0) g/dL Assessment and Plan Assessment: Hypervolemic hyponatremia, improved, on 3% saline. History of liver cirrhosis, secondary to chronic alcohol abuse. History of chronic anemia. Ascites. History of recent cholecystectomy. History of GI bleed, February 19, 2024, requiring EGD. History of esophageal varices. History of COPD. History of bipolar disorder. History of chronic thrombocytopenia. Plan: Plan dated April 18, 2024. The patient is seen in the intensive care unit, room 262. She came in with an admission sodium of 114. Today sodium is 123. She was on 3% saline. That has been discontinued. The patient is getting saline at 20 cc an hour. She is on nasal O2 at 2 L. She continues on norepinephrine at 0.02 mcg/kg/min. Not sure why the patient is hypotensive, but, I have asked for a urinalysis. The patient is having lower abdominal pain. Labs, x-rays, and medications are reviewed. Will continue to follow the patient, and make recommendations. Prognosis is guarded. Sodium is much improved. Plan dated April 19, 2024. The patient is seen today in room 262. She is not receiving any fluids. She is on room air. Her sodium this morning was 126. Apparently, she was on 3% saline, for a brief period of time. We will continue to follow, while she is in the intensive care unit. No additional recommendations are made. Labs, x-rays, and all medications have been reviewed. Time with Patient: Less than 30
--- NOTE | 2024-04-19 11:15 | P.PN ---
Subjective Progress Note Date: 04/19/24 Principal diagnosis: Liver cirrhosis This a pleasant 44-year-old female who presented to the emergency department directed by her PCP for abnormal labs. Apparently patient was having outpatient labs and was noted to have low sodium and was told to come to the emergency department. She was recently hospitalized from 03/21/2024 and discharged on 04/08/2024. Patient was scheduled for outpatient cholecystectomy and underwent that on 03/21/[address] Corrigan and was hospitalized and discharged on 04/08/2024 following some reported complications following surgery. She was rece ntly diagnosed with alcohol induced liver cirrhosis about a year ago. States she quit drinking about 6 months ago. She was seen by gastroenterology in January of this year for complaints of abdominal pain and dark stools to rule out GI bleed. She had an upper endoscopy done during that hospitalization and 02/19/2024 with findings of antral ulcer, small distal esophageal varices with no stigmata of recent bleeding, and mild to moderate gastritis. Patient was admitted with severe hyponatremia, hypotension and admitted to the ICU. She is being followed by the ICU database development project manager and nephrology. She states that she had seen her PCP and was directed that she could take her spironolactone 100 mg martin ly. She states she only took it for 1 day and then was called with her abnormal labs told to come in for further evaluation for outpatient sodium of 114. Gastroenterology consulted for cirrhosis. Patient still has leaking from surgical site and he has an ostomy bag. She is currently in the ICU, Levophed was started about 2 AM according to the nurse. Spironolactone has been discontinued she is on 3% saline and started on bicarb and Lasix 40 mg every 12 hours. Patient denies any abdominal pain, nausea or vomiting. She has been afebrile. WBC 7.2 hemoglobin 8.7 hematocrit 26 platelet count 131,000 sodium 123 potassium 3.9 BUN 27 creatinine 1.09 iron 37 saturation 13 ferritin 224 total bilirubin 0.9 AST 42 ALT 28 alkaline phosphatase 121 04/19/2024 Patient is seen and examined today as a follow-up. She is up in the chair. Levophed and 3% normal saline have been discontinued. Nephrology has seen patient today and is going to transition her to oral Lasix. Patient probably WBC 6.5 hemoglobin 8.5 platelet count 125,000 sodium 126 potassium 3.7 BUN 28 creatinine 1.16 total bilirubin 0.7 AST 45 ALT 28 alkaline phosphatase 131. Patient is afebrile. Blood pressures have been stable 90s over 50s. She has no complaints at this time. 150 cc of output from surgical incision site. Objective - Vital Signs Vital signs: Vital Signs Temp 98.4 F 04/19/24 08:00 Pulse 120 H 04/19/24 09:00 Resp 15 04/19/24 09:00 BP 91/58 04/19/24 09:00 Pulse Ox 95 04/19/24 09:00 FiO2 Intake & Output 04/18/24 04/19/24 04/19/24 18:59 06:59 18:59 Intake Total 828.453 630 0 Output Total 910 1025 165 Balance -81.547 -395 -165 Intake: IV 125 300 0 Sodium Chloride 3%( 25 25 Hypertonic) 500 ml @ 25 mls/hr IV .Q20H ONE Rx#: [id number] Sodium Chloride 3%( 275 0 Hypertonic) 500 ml @ 25 mls/hr IV .Q20H ONE Rx#: [id number] Sodium Ferric Gluconat- 100 Sucrose 125 mg In Sodium Chloride 0.9% 100 ml @ 100 mls/hr IVPB DAILY [facility] Rx#:[id number] Intake, IV Titration 65.453 Amount Norepinephrine 4 mg In 65.453 Sodium Chloride 0.9% 250 ml @ 0.03 MCG/KG/MIN 13. 076 mls/hr IV .[id number] [facility] Rx#:[id number] Oral 638 330 Output: Drainage 0 0 Right Lower Abdomen 0 0 Urine 910 1025 165 Other: Voiding Method Indwelling Catheter Indwelling Catheter Indwelling Catheter - Exam General appearance: The patient is alert, oriented, appears in no acute distress. HET: Head is normocephalic and atraumatic. Conjunctiva pink. Sclera anicteric. Neck: Supple without lymphadenopathy. Abdomen: Soft, nontender, nondistended. Right side of abdomen surgical incision with ostomy bag and small amount of clear yellow fluid. Umbilicus with sutures, left abdominal surgical site with sutures Extremities: Normal skin color and turgor. Lower extremity edema. Skin: No rashes, no jaundice Neurological: No focal deficits. Alert and oriented. - Labs CBC & Chem 7: 04/19/24 05:00 04/19/24 10:09 Labs: Abnormal Lab Results - Last 24 Hours (Table) 04/18/24 04/18/24 04/18/24 Range/Units 14:10 18:02 21:58 RBC (3.80-5.40) m/uL Hgb (11.4-16.0) gm/dL Hct (34.0-46.0) % RDW (11.5-15.5) % Plt Count (150-450) k/uL Sodium 122 L 124 L 124 L (137-145) mmol/L Carbon Dioxide (22-30) mmol/L BUN (7-17) mg/dL Creatinine (0.52-1.04) mg/dL Calcium (8.4-10.2) mg/dL AST (14-36) U/L Alkaline Phosphatase (38-126) U/L Total Protein (6.3-8.2) g/dL Albumin (3.5-5.0) g/dL 04/19/24 04/19/24 04/19/24 Range/Units 02:47 05:00 05:00 RBC 2.68 L (3.80-5.40) m/uL Hgb 8.5 L (11.4-16.0) gm/dL Hct 26.5 L (34.0-46.0) % RDW 19.9 H (11.5-15.5) % Plt Count 125 L (150-450) k/uL Sodium 127 L 126 L (137-145) mmol/L Carbon Dioxide 19 L (22-30) mmol/L BUN 28 H (7-17) mg/dL Creatinine 1.16 H (0.52-1.04) mg/dL Calcium 7.9 L (8.4-10.2) mg/dL AST 45 H (14-36) U/L Alkaline Phosphatase 131 H (38-126) U/L Total Protein 4.3 L (6.3-8.2) g/dL Albumin 2.1 L (3.5-5.0) g/dL Assessment and Plan (1) Liver cirrhosis Narrative/Plan: 44-year-old female with known alcohol liver cirrhosis with ascites presented to the hospital directed by her physician for low sodium found on outpatient labs. Patient currently in ICU for hyponatremia and now started on Levophed for hypotension. Continue with symptomatic and supportive care. Continue with recommendations on diuretics from nephrology. No further workup from gastroenterology at this time. Current Visit: No Status: Acute Code(s): K74.60 - UNSPECIFIED CIRRHOSIS OF LIVER SNOMED Code(s): 57806741 (2) Hyponatremia Narrative/Plan: Improving. Nephrology following. Current Visit: Yes Status: Acute Code(s): E87.1 - HYPO-OSMOLALITY AND HYPONATREMIA SNOMED Code(s): 15257493 (3) Anemia Narrative/Plan: Chronic anemia secondary to underlying liver disease. No signs of GI bleed. Current Visit: No Status: Acute Code(s): D64.9 - ANEMIA, UNSPECIFIED SNO MED Code(s): 981345911 Plan: 1. Continue symptomatic and supportive care 2. Heart healthy diet, low-sodium diet 3. Continue with recommendations from nephrology. Diuretics per nephrology 4. There is no indication for any further workup with gastroenterology. Patient to continue alcohol abstinence and follow-up with gastroenterology in outpatient setting. 5. Encourage ambulation Thank you for this consultation, we will continue to follow. Dr. Rachel Cuenca I agree with the dictator's note, documented as a scribe by Katiuska Fan.
[2024-04-19] MEDS ORDERED: FUROSEMIDE 40 MG TAB PO SCH (16:00)
[2024-04-19] MEDS: POTASSIUM CHLORIDE 10 MEQ in WATER FOR INJECTION 1 100ML.BAG IVPB SCH (16:29)
--- NOTE | 2024-04-19 20:43 | PN ---
PROGRESS NOTE SUBJECTIVE: The patient has cirrhosis and acute on chronic diastolic heart failure, status post cholecystectomy. She has hyponatremia, underlying cirrhosis, responded well to 3% saline, Lasix, switched to oral. She has had volume overload, alcohol-induced liver cirrhosis as well as cholecystectomies. Continued on midodrine. Repeat sodium. Switch Lasix to oral. Monitor renal function. Acute on chronic anemia, hemoglobin 8.5, the patient is feeling better. BUN is 28, creatinine 1.16. OBJECTIVE: LUNGS: Transmitted upper sounds. HEMATOLOGY: Negative Homans. 2 to 3+ edema. CARDIOVASCULAR: S1, S2 GI: Distended. PSYCH: Fair mood and affect. She has been on and off norepinephrine due to hypotension. Continue current treatment. Prognosis guarded. Right-sided lateral SALVADOR tube has minimal ascites discharge. Prognosis guarded. MMODL / IJN: [id number] /
[2024-04-19] MEDS: DEMECLOCYCLINE 150 MG TAB PO SCH (21:40)
[2024-04-20 05:53] LABS: Anisocytosis Slight; Basophils % (A) 0 %; Eosinophils # (A) 0.2 k/uL (0-0.7); Eosinophils % (A) 2 %; HCT 27.4 % (34.0-46.0); HGB 8.4 gm/dL (11.4-16.0); Hypochromasia Marked; Lymphocytes % (A) 11 %; MCH 31.3 pg (25.0-35.0); MCHC 30.5 g/dL (31.0-37.0); MCV 102.4 fL (80.0-100.0); Macrocytosis Moderate; Monocytes # (A) 0.3 k/uL (0-1.0); Monocytes % (A) 4 %; Neutrophils # (A) 7.2 k/uL (1.3-7.7); Neutrophils % (A) 80 %; Platelet Count 122 k/uL (150-450); RBC 2.68 m/uL (3.80-5.40); RDW 19.4 % (11.5-15.5); WBC 9.1 k/uL (3.8-10.6)
[2024-04-20 06:05] LABS: ALT 25 U/L (4-34); AST 45 U/L (14-36); African American GFR (CKD) 64 (>60 ml/min/1.73 sqM); Alkaline Phosphatase 124 U/L (38-126); Anion Gap 7 mmol/L; Blood Urea Nitrogen 27 mg/dL (7-17); Calcium 7.8 mg/dL (8.4-10.2); Carbon Dioxide 17 mmol/L (22-30); Chloride 101 mmol/L (98-107); Glucose 120 mg/dL (74-99); Non-African American GFR(CKD) 56 (>60 ml/min/1.73 sqM); Potassium 3.9 mmol/L (3.5-5.1); Sodium 125 mmol/L (137-145); Total Bilirubin 0.7 mg/dL (0.2-1.3); Total Protein 4.2 g/dL (6.3-8.2)
[2024-04-20] MEDS: POTASSIUM CHLORIDE ER 20 MEQ TAB.ER PO SCH (06:47)
--- NOTE | 2024-04-20 10:36 | P.PN ---
Subjective Progress Note Date: 04/20/24 Principal diagnosis: Hyponatremia. This is a 44-year-old female with known history of cirrhosis of the liver, patient quit drinking alcohol in the last 6 months. Patient does have history of chronic fluid retention and ascites related to her chronic liver disease, and she has history of chronic hyponatremia. Her sodium has always been in the range of 1 20-1 26 at best over the last few months. And the patient had multiple admissions with hyponatremia. Apparently the patient came to the hospital yesterday because outpatient blood test showed a sodium of 114. Patient had no major symptoms except for generalized weakness no symptoms of seizures or seizures activity. Patient was seen in the ER, and the recommendation was to start the patient on 3% saline and admit the patient to the ICU for 3% saline infusion. She did receive 3% saline, and her sodium this morning is 119. Her mental status seems to be very appropriate. Patient is hemodynamically stable, she is on diuretics at home in the form of Aldactone. Patient had no previous history of malignancy. And in the past her low sodium has been diagnosed to be related to her liver disease and possibly underlying SIADH. Patient was recently in the hospital for cholecystectomy this was done by Dr. José Miguel wynn, and she continues to have some persistent oozing and drainage from her abdominal wall at the site of her SALVADOR drain. Patient denies any shortness of breath no cough no wheezing no chest pain. CBC is relatively normal basic metabolic profile showed a sodium of 119 bicarb is 13 patient received sodium bicarb as ordered by nephrology her BUN is 26 creatinine 1.06. Liver enzymes noted her ammonia level is 39 Progress note dated April 18, 2024. 44-year-old female seen yesterday in consultation. She has a history of cirrhosis, chronic alcohol abuse, and a recent admission to the hospital, at which time, she was being treated for hyponatremia. The patient was readmitted to the hospital, with hyponatremia, on April 16, with a sodium of 114. Today, her sodium is 123. She is currently on 2 L of oxygen. The patient is receiving norepinephrine at 0.02 mcg/kg/min. She is also getting saline at 20 cc an hour. On her previous admission, the patient had refractory hyponatremia, despite aggressive treatment with 3% saline, and other medications. Current laboratory data includes a white count 7.2, hemoglobin 8.7, hematocrit 26.7, and platelet count of 131,000. Sodium 123, potassium 3.9, chlorides 97, CO2 18, BUN 27, and creatinine 1.09. Progress note dated April 19, 2024. 44-year-old female seen again in room 262. Her current sodium is 126. For a brief period of time, she was back on 3% saline. Currently, she is on room air. She is not receiving any IV fluids. Clinically, she has been very stable, and she has had an uneventful night. White count 6.5, hemoglobin 8.5, hematocrit 26.5, and platelet count of 125,000. Sodium 126, potassium 3.7, chlorides 100, CO2 19, BUN 28, creatinine 1.16. Albumin is 2.1. Progress note dated April 20, 2024. 44-year-old female seen in room 262. She is on room air. She is not receiving any IV fluids. Today sodium is 125. She is asymptomatic. White count is 9.1, hemoglobin 8.4, hematocrit 27.4, with a platelet count of 122,000. Sodium 125, potassium 3.9, chlorides 101, CO2 17, BUN 27, and creatinine 1.20. Glucose is 120. Calcium is 7.8. Albumin is 2. Objective - Vital Signs Vital signs: Vital Signs Temp 97.9 F 04/20/24 04:00 Pulse 96 04/20/24 08:50 Resp 15 04/20/24 08:00 BP 95/61 04/20/24 08:00 Pulse Ox 98 04/20/24 08:35 FiO2 Intake & Output 04/19/24 04/20/24 04/20/24 18:59 06:59 18:59 Intake Total 1070 450 400 Output Total 1045 700 90 Balance 25 -250 310 Intake: IV 20 60 100 Invasive Line 1 10 30 Invasive Line 2 10 30 Sodium Chloride 3%( 0 Hypertonic) 500 ml @ 25 mls/hr IV .Q20H ONE Rx#: [id number] Sodium Ferric Gluconat- 100 Sucrose 125 mg In Sodium Chloride 0.9% 100 ml @ 100 mls/hr IVPB DAILY [facility] Rx#:[id number] Oral 1050 390 300 Output: Drainage 400 50 Right Lower Abdomen 400 50 Urine 645 650 90 Other: Voiding Method Indwelling Catheter Indwelling Catheter - Exam No acute distress, oriented 3. Respiratory distress. Currently on room air. HEENT examination is grossly unremarkable. Mucous membranes are moist. No oral lesions. Neck supple. Full range of motion. No adenopathy thyromegaly or neck vein distention. Cardiovascular examination reveals regular rhythm rate. S1-S2 normal. No S3 or S4. No discernible murmur noted. Lungs reveal clear breath sounds. Breath sounds are equal bilaterally. No adventitious lung sounds including wheezes rhonchi or crackles. Abdomen soft bowel sounds are heard. No masses or tenderness. Extremities are intact. No cyanosis clubbing or edema. Skin is without rash or lesion. Neurologic examination is brief but nonfocal. - Labs CBC & Chem 7: 04/20/24 05:27 04/20/24 05:27 Labs: Abnormal Lab Results - Last 24 Hours (Table) 04/19/24 04/19/24 04/20/24 Range/Units 10:09 14:09 05:27 RBC (3.80-5.40) m/uL Hgb (11.4-16.0) gm/dL Hct (34.0-46.0) % MCV (80.0-100.0) fL MCHC (31.0-37.0) g/dL RDW (11.5-15.5) % Plt Count (150-450) k/uL Sodium 125 L 127 L 125 L (137-145) mmol/L Carbon Dioxide 17 L (22-30) mmol/L BUN 27 H (7-17) mg/dL Creatinine 1.20 H (0.52-1.04) mg/dL Glucose 120 H (74-99) mg/dL Calcium 7.8 L (8.4-10.2) mg/dL AST 45 H (14-36) U/L Total Protein 4.2 L (6.3-8.2) g/dL Albumin 2.0 L (3.5-5.0) g/dL 04/20/24 Range/Units 05:27 RBC 2.68 L (3.80-5.40) m/uL Hgb 8.4 L (11.4-16.0) gm/dL Hct 27.4 L (34.0-46.0) % MCV 102.4 H (80.0-100.0) fL MCHC 30.5 L (31.0-37.0) g/dL RDW 19.4 H (11.5-15.5) % Plt Count 122 L (150-450) k/uL Sodium (137-145) mmol/L Carbon Dioxide (22-30) mmol/L BUN (7-17) mg/dL Creatinine (0.52-1.04) mg/dL Glucose (74-99) mg/dL Calcium (8.4-10.2) mg/dL AST (14-36) U/L Total Protein (6.3-8.2) g/dL Albumin (3.5-5.0) g/dL Assessment and Plan Assessment: Hypervolemic hyponatremia, improved, on 3% saline. History of liver cirrhosis, secondary to chronic alcohol abuse. History of chronic anemia. Ascites. History of recent cholecystectomy. History of GI bleed, February 19, 2024, requiring EGD. History of esophageal varices. History of COPD. History of bipolar disorder. History of chronic thrombocytopenia. Plan: Plan dated April 18, 2024. The patient is seen in the intensive care unit, room 262. She came in with an admission sodium of 114. Today sodium is 123. She was on 3% saline. That has been discontinued. The patient is getting saline at 20 cc an hour. She is on nasal O2 at 2 L. She continues on norepinephrine at 0.02 mcg/kg/min. Not sure why the patient is hypotensive, but, I have asked for a urinalysis. The patient is having lower abdominal pain. Labs, x-rays, and medications are reviewed. Will continue to follow the patient, and make recommendations. Prognosis is guarded. Sodium is much improved. Plan dated April 19, 2024. The patient is seen today in room 262. She is not receiving any fluids. She is on room air. Her sodium this morning was 126. Apparently, she was on 3% saline, for a brief period of time. We will continue to follow, while she is in the intensive care unit. No additional recommendations are made. Labs, x-rays, and all medications have been reviewed. Plan dated April 20, 2024. The patient is stable. Today's sodium is 125. A repeat sodium is pending. The patient is on room air. The patient is not receiving any IV fluids. Her blood pressure stable. Even when her blood pressure is a bit low, she is lucid and oriented. In my opinion, the patient could be transferred out of the intensive care unit. No additional recommendations are made. Time with Patient: Less than 30
--- NOTE | 2024-04-20 10:46 | P.PN ---
Subjective patient is seen for follow-up for hyponatremia. We are limited with options for treatment of hyponatremia given the underlying liver cirrhosis and volume overload. Therefore patient is not maintained on sodium chloride tabs. Patient has been very sensitive to Lasix with significant hypotension noted with IV Lasix during her last admission as well. Currently maintained on midodrine and off of levo fed. Samsca is also not in ideal option given underlying liver cirrhosis. Status post 3% saline and serum sodium has increased to 125-127. Off of Lasix Patient was started on Bactrim due to urine culture on 03/30/2024 growing Enterococcus faecalis and Hafnia. Patient is also noted to have significant erythema and swelling of the left leg which is much more than on the right side. Blood pressure has been on the lower side. Serum sodium at 125 this morning and creatinine 1.2 which is most likely elevated from recent initiation of Bactrim. Objective - Vital Signs Vital signs: Vital Signs Temp 97.9 F 04/20/24 04:00 Pulse 97 04/20/24 10:00 Resp 17 04/20/24 10:00 BP 109/50 04/20/24 10:00 Pulse Ox 94 L 04/20/24 10:00 FiO2 Intake & Output 04/19/24 04/20/24 04/20/24 18:59 06:59 18:59 Intake Total 1070 450 400 Output Total 1045 700 90 Balance 25 -250 310 Intake: IV 20 60 100 Invasive Line 1 10 30 Invasive Line 2 10 30 Sodium Chloride 3%( 0 Hypertonic) 500 ml @ 25 mls/hr IV .Q20H ONE Rx#: [id number] Sodium Ferric Gluconat- 100 Sucrose 125 mg In Sodium Chloride 0.9% 100 ml @ 100 mls/hr IVPB DAILY [facility] Rx#:[id number] Oral 1050 390 300 Output: Drainage 400 50 Right Lower Abdomen 400 50 Urine 645 650 90 Other: Voiding Method Indwelling Catheter Indwelling Catheter - Exam awake, comfortable, no acute distress. Examination of the heart S1 and S2 Examination of the lungs bilateral breath sounds are heard Abdomen is soft nontender, distended with ascites Examination of lower extremities shows edema 1+ bilaterally, redness and worsening edema noted in the left lower leg ELECTRONIC ENGRAVER exam grossly intact - Labs CBC & Chem 7: 04/20/24 05:27 04/20/24 05:27 Labs: Abnormal Lab Results - Last 24 Hours (Table) 04/19/24 04/19/24 04/20/24 Range/Units 10:09 14:09 05:27 RBC (3.80-5.40) m/uL Hgb (11.4-16.0) gm/dL Hct (34.0-46.0) % MCV (80.0-100.0) fL MCHC (31.0-37.0) g/dL RDW (11.5-15.5) % Plt Count (150-450) k/uL Sodium 125 L 127 L 125 L (137-145) mmol/L Carbon Dioxide 17 L (22-30) mmol/L BUN 27 H (7-17) mg/dL Creatinine 1.20 H (0.52-1.04) mg/dL Glucose 120 H (74-99) mg/dL Calcium 7.8 L (8.4-10.2) mg/dL AST 45 H (14-36) U/L Total Protein 4.2 L (6.3-8.2) g/dL Albumin 2.0 L (3.5-5.0) g/dL 04/20/24 Range/Units 05:27 RBC 2.68 L (3.80-5.40) m/uL Hgb 8.4 L (11.4-16.0) gm/dL Hct 27.4 L (34.0-46.0) % MCV 102.4 H (80.0-100.0) fL MCHC 30.5 L (31.0-37.0) g/dL RDW 19.4 H (11.5-15.5) % Plt Count 122 L (150-450) k/uL Sodium (137-145) mmol/L Carbon Dioxide (22-30) mmol/L BUN (7-17) mg/dL Creatinine (0.52-1.04) mg/dL Glucose (74-99) mg/dL Calcium (8.4-10.2) mg/dL AST (14-36) U/L Total Protein (6.3-8.2) g/dL Albumin (3.5-5.0) g/dL Assessment and Plan Assessment: 1. Hyponatremia with underlying liver cirrhosis. Currently hypervolemic and responded well to 3% saline. Lasix will be switched to oral while off of 3% saline. We're limited with choices for treatment of hyponatremia given the underlying's liver cirrhosis and contraindication to use of Samsca. Patient has developed significant volume overload with sodium chloride tabs, therefore this will be avoided. Patient is started on demeclocycline. 2. Alcohol-induced liver cirrhosis 3. Volume overload 4. Status post recent cholecystectomy 5. Cellulitis left lower leg 6. Metabolic acidosis maintained on oral sodium bicarb 7. Elevated creatinine due to recent initiation of Bactrim as Bactrim will decrease secretion of creatinine. Plan: Continue with demeclocycline Consult ID regarding choice of antibiotics for UTI on 03/30/2024 and left lower extremity cellulitis. Continue with midodrine Continue sodium bicarb for metabolic acidosis Avoid sodium chloride tabs due to hypervolemia Samsca not an ideal option due to underlying liver cirrhosis
--- NOTE | 2024-04-20 13:30 | P.PN ---
Subjective Progress Note Date: 04/20/24 Principal diagnosis: Liver cirrhosis This a pleasant 44-year-old female who presented to the emergency department directed by her PCP for abnormal labs. Apparently patient was having outpatient labs and was noted to have low sodium and was told to come to the emergency department. She was recently hospitalized from 03/21/2024 and discharged on 04/08/2024. Patient was scheduled for outpatient cholecystectomy and underwent that on 03/21/[address] Corrigan and was hospitalized and discharged on 04/08/2024 following some reported complications following surgery. She was rece ntly diagnosed with alcohol induced liver cirrhosis about a year ago. States she quit drinking about 6 months ago. She was seen by gastroenterology in January of this year for complaints of abdominal pain and dark stools to rule out GI bleed. She had an upper endoscopy done during that hospitalization and 02/19/2024 with findings of antral ulcer, small distal esophageal varices with no stigmata of recent bleeding, and mild to moderate gastritis. Patient was admitted with severe hyponatremia, hypotension and admitted to the ICU. She is being followed by the ICU tamper operator and nephrology. She states that she had seen her PCP and was directed that she could take her spironolactone 100 mg martin ly. She states she only took it for 1 day and then was called with her abnormal labs told to come in for further evaluation for outpatient sodium of 114. Gastroenterology consulted for cirrhosis. Patient still has leaking from surgical site and he has an ostomy bag. She is currently in the ICU, Levophed was started about 2 AM according to the nurse. Spironolactone has been discontinued she is on 3% saline and started on bicarb and Lasix 40 mg every 12 hours. Patient denies any abdominal pain, nausea or vomiting. She has been afebrile. WBC 7.2 hemoglobin 8.7 hematocrit 26 platelet count 131,000 sodium 123 potassium 3.9 BUN 27 creatinine 1.09 iron 37 saturation 13 ferritin 224 total bilirubin 0.9 AST 42 ALT 28 alkaline phosphatase 121 04/19/2024 Patient is seen and examined today as a follow-up. She is up in the chair. Levophed and 3% normal saline have been discontinued. Nephrology has seen patient today and is going to transition her to oral Lasix. Patient probably WBC 6.5 hemoglobin 8.5 platelet count 125,000 sodium 126 potassium 3.7 BUN 28 creatinine 1.16 total bilirubin 0.7 AST 45 ALT 28 alkaline phosphatase 131. Patient is afebrile. Blood pressures have been stable 90s over 50s. She has no complaints at this time. 150 cc of output from surgical incision site. 04/20/2024 Patient seen and examined today as a follow-up.'s states she is overall feeling well. No acute changes through the night. Had about 200 cc of ascitic fluid in ostomy bag. She denies any abdominal pain, nausea or vomiting. Objective - Vital Signs Vital signs: Vital Signs Temp 97.9 F 04/20/24 04:00 Pulse 94 04/20/24 08:34 Resp 15 04/20/24 08:00 BP 95/61 04/20/24 08:00 Pulse Ox 97 04/20/24 08:00 FiO2 Intake & Output 04/19/24 04/20/24 04/20/24 18:59 06:59 18:59 Intake Total 1070 450 Output Total 1045 700 45 Balance 25 -250 -45 Intake: IV 20 60 Invasive Line 1 10 30 Invasive Line 2 10 30 Sodium Chloride 3%( 0 Hypertonic) 500 ml @ 25 mls/hr IV .Q20H ONE Rx#: [id number] Oral 1050 390 Output: Drainage 400 50 Right Lower Abdomen 400 50 Urine 645 650 45 Other: Voiding Method Indwelling Catheter Indwelling Catheter - Exam General appearance: The patient is alert, oriented, appears in no acute distress. HET: Head is normocephalic and atraumatic. Conjunctiva pink. Sclera anicteric. Neck: Supple without lymphadenopathy. Abdomen: Soft, nontender, nondistended. Right side of abdomen surgical incision with ostomy bag and small amount of clear yellow fluid. Umbilicus with sutures, left abdominal surgical site with sutures Extremities: Normal skin color and turgor. Lower extremity edema. Skin: No rashes, no jaundice Neurological: No focal deficits. Alert and oriented. - Labs CBC & Chem 7: 04/20/24 05:27 04/20/24 05:27 Labs: Abnormal Lab Results - Last 24 Hours (Table) 04/19/24 04/19/24 04/20/24 Range/Units 10:09 14:09 05:27 RBC (3.80-5.40) m/uL Hgb (11.4-16.0) gm/dL Hct (34.0-46.0) % MCV (80.0-100.0) fL MCHC (31.0-37.0) g/dL RDW (11.5-15.5) % Plt Count (150-450) k/uL Sodium 125 L 127 L 125 L (137-145) mmol/L Carbon Dioxide 17 L (22-30) mmol/L BUN 27 H (7-17) mg/dL Creatinine 1.20 H (0.52-1.04) mg/dL Glucose 120 H (74-99) mg/dL Calcium 7.8 L (8.4-10.2) mg/dL AST 45 H (14-36) U/L Total Protein 4.2 L (6.3-8.2) g/dL Albumin 2.0 L (3.5-5.0) g/dL 04/20/24 Range/Units 05:27 RBC 2.68 L (3.80-5.40) m/uL Hgb 8.4 L (11.4-16.0) gm/dL Hct 27.4 L (34.0-46.0) % MCV 102.4 H (80.0-100.0) fL MCHC 30.5 L (31.0-37.0) g/dL RDW 19.4 H (11.5-15.5) % Plt Count 122 L (150-450) k/uL Sodium (137-145) mmol/L Carbon Dioxide (22-30) mmol/L BUN (7-17) mg/dL Creatinine (0.52-1.04) mg/dL Glucose (74-99) mg/dL Calcium (8.4-10.2) mg/dL AST (14-36) U/L Total Protein (6.3-8.2) g/dL Albumin (3.5-5.0) g/dL Assessment and Plan (1) Liver cirrhosis Narrative/Plan: 44-year-old female with known alcohol liver cirrhosis with ascites presented to the hospital directed by her physician for low sodium found on outpatient labs. Patient currently in ICU for hyponatremia and now started on Levophed for hypotension. Continue with symptomatic and supportive care. Continue with recommendations on diuretics from nephrology. No further workup from gastroenterology at this time. Current Visit: No Status: Acute Code(s): K74.60 - UNSPECIFIED CIRRHOSIS OF LIVER SNOMED Code(s): 42787284 (2) Hyponatremia Narrative/Plan: Improving. Nephrology following. Current Visit: Yes Status: Acute Code(s): E87.1 - HYPO-OSMOLALITY AND HYPONATREMIA SNOMED Code(s): 60475259 (3) Anemia Narrative/Plan: Chronic anemia secondary to underlying liver disease. No signs of GI bleed. Current Visit: No Status: Acute Code(s): D64.9 - ANEMIA, UNSPECIFIED SNOMED Code(s): 276025772 Plan: 1. Continue symptomatic and supportive care 2. Heart healthy diet, low-sodium diet 3. Continue with recommendations from nephrology. Diuretics per nephrology 4. Encourage ambulation 5. There is no indication for any further workup with gastroenterology. Patient to continue alcohol abstinence and follow-up with gastroenterology in outpatient setting. Thank you for this consultation, patient is cleared from gastroenterology. We will sign off at this time. Dr. Rachel Cuenca I agree with the dictator's note, documented as a scribe by Katiuska Fan.
--- NOTE | 2024-04-20 14:15 | PN ---
PROGRESS NOTE A 44-year-old white female admitted with severe hyponatremia. She had a positive urine culture in my office 2 days prior to admission. Dictation by Dr. Shah stating we are treating an infection from late March or early April is false, it is not true at all. She has a positive urine culture 2 days prior to admission. We were treating that with susceptibilities. We will stop it now as it possibly could be making her kidney function worse or the IV Lasix she is giving her. Either way, she has the long UTI she is looking at, so I will talk to Dr. Kaba and show him the culture report and let him decide what to give her, no idea why the UA here is negative when she had a positive UTI in my office 2 days prior to admission, but I will discuss with Dr. Kaba and continue current treatment. IZABELA / REBA: [id number] /
[2024-04-20] MEDS: ALBUMIN HUMAN 25% 50 ML in EMPTY BAG 1 BAG IVPB SCH (14:27)
[2024-04-20 18:26] LABS: Appearance,Urine Cloudy (Clear); Bacteria,Urine Occasional /hpf; Bilirubin,Urine Negative (Negative); Blood,Urine Negative (Negative); Color,Urine Yellow; Glucose,Urine (UA) Negative (Negative); Ketones,Urine Negative (Negative); Leukocyte Esterase,Urine Moderate (Negative); Nitrite,Urine Negative (Negative); Protein,Urine Trace (Negative); RBC,Urine 2 /hpf (0-5); Specific Gravity,Urine 1.023 (1.001-1.035); Squamous Epithelial Cell,Urine 25 /hpf (0-4); Urobilinogen,Urine <2.0 mg/dL (<2.0); WBC,Urine 41 /hpf (0-5)
[2024-04-21 03:34] LABS: Anisocytosis Moderate; Basophils % (A) 0 %; Eosinophils # (A) 0.3 k/uL (0-0.7); Eosinophils % (A) 3 %; HGB 8.1 gm/dL (11.4-16.0); Hypochromasia Moderate; Lymphocytes # (A) 1.3 k/uL (1.0-4.8); Lymphocytes % (A) 16 %; MCH 32.4 pg (25.0-35.0); MCHC 32.4 g/dL (31.0-37.0); MCV 100.1 fL (80.0-100.0); Macrocytosis Moderate; Mean Platelet Volume 8.5; Monocytes # (A) 0.4 k/uL (0-1.0); Monocytes % (A) 5 %; Neutrophils # (A) 5.7 k/uL (1.3-7.7); Neutrophils % (A) 72 %; Platelet Count 118 k/uL (150-450); RDW 20.3 % (11.5-15.5)
--- NOTE | 2024-04-21 04:01 | PN ---
PROGRESS NOTE SUBJECTIVE: A 44-year-old white female, who has positive UTI from 01/13/2024 as outpatient at my office for E coli. I sent culture and sensitivity to Dr. Kaba. I stopped the Bactrim and apparently she started cefazolin to treat the UTI, which was positive for E coli greater than 100,000 units from 01/13/2024. Bactrim has been discontinued. Maintain the sodium about 125. She is getting a little bit stronger up to the chair. She still is very weak. Continue with current treatment. OBJECTIVE: ABDOMEN: Soft. She still has like 200 cc of fluid out of the right SALV[place]OR bag over the last 24 hours, 50 cc overnight. CARDIOVASCULAR: S1, S2. LUNGS: Transmitted upper sounds. HEMATOLOGIC: 2 to 3+ edema. LABORATORY DATA: Labs have been reviewed. PLAN: Continue current treatment. Declomycin was ordered by which is helping with the sodium. Possibly give her some albumin due to low albumin levels. Prognosis guarded. Continue current treatments per 3% normal saline if ordered. Otherwise continue current treatment. Prognosis guarded. MMODL / IJN: [id number] /
[2024-04-21 04:26] LABS: African American GFR (CKD) 69 (>60 ml/min/1.73 sqM); Anion Gap 4 mmol/L; Blood Urea Nitrogen 22 mg/dL (7-17); Calcium 7.8 mg/dL (8.4-10.2); Carbon Dioxide 20 mmol/L (22-30); Chloride 100 mmol/L (98-107); Glucose 81 mg/dL (74-99); Non-African American GFR(CKD) 60 (>60 ml/min/1.73 sqM); Potassium 3.6 mmol/L (3.5-5.1); Sodium 124 mmol/L (137-145)
--- NOTE | 2024-04-21 07:20 | P.CONS ---
History of Present Illness - Reason for Consult Consult date: 04/20/24 UTI cellulitis antibiotic choice Requesting physician: Bethany Shah - Chief Complaint Abnormal labs on admission - History of Present Illness Patient is a 44-year-old female with a past medical history significant for cirrhosis of the liver bipolar disorder reflux recent admission to the hospital for cholecystitis status post cholecystectomy in this patient presenting to the hospital about 5 days ago on 04/16/2024 apparently the patient did have a abnormal labs done in the outpatient setting with the patient was noted to have a low sodium for the patient has been admitted to the ICU and has been treated by nephrology and pulmonary services patient also complaining of increasing swelling to bilateral lower extremity especially to the left leg with more erythema and pain patient was describing the pain to be sharp about 7- 8 out of 10 no radiation with diffuse swelling redness did not have any open wound or any drainage, patient on presentation to the hospital was afebrile and no fever have been recorded subsequently patient was tachycardic at times but not persistent not hypotensive or hypoxic and no need for supplemental oxygen patient did have a white count of 8.0 creatinine is 1.13, UA done on admission 914 was negative infectious he was consulted today regarding antibiotic choice for UTI cellulitis the patient do not have any urinary symptoms of burning or frequency or suprapubic pain Review of Systems Positive point and negatives has been mentioned in the HPI, complete review of systems was performed and all other systems are negative Past Medical History Past Medical History: GERD/Reflux, Liver Disease Additional Past Medical History / Comment(s): retains fluid,anemia,cirrohis of liver non alcoholic, occ bloody stool, ulcer, bipolar, low sodium levels History of Any Multi-Drug Resistant Organisms: None Reported Past Surgical History: Cholecystectomy, EPS Additional Past Surgical History / Comment(s): has had 4 scopes, paracentesis unable to get any fluid out at the time., paracentesis Past Anesthesia/Blood Transfusion Reactions: No Reported Reaction Additional Past Anesthesia/Blood Transfusion Reaction / Comm: 3 units of blood transfused in around february 03. Past Psychological History: Anxiety, Bipolar Smoking Status: Current some day smoker Past Alcohol Use History: Abuse Additional Past Alcohol Use History / Comment(s): 1 pk/every 2 days/ 20yrs, did not drink for 10months and then started drinking again states "I stopped again a week ago." Past Drug Use History: None Reported Medications and Allergies Home Medications Medication Instructions Recorded Confirmed Type Cariprazine HCl [Vraylar] 3 mg PO HS 03/20/23 04/16/24 History Pantoprazole [Protonix] 40 mg PO DAILY 03/20/23 04/16/24 History QUEtiapine [SEROquel] 100 tab PO HS 03/20/23 04/16/24 History Spironolactone 100 mg PO DAILY 03/20/23 04/16/24 History Budesonide-Formot 160-4.5 Mcg 2 puff INHALATION RT-BID 30 Days 02/24/24 04/16/24 Rx [Symbicort 160-4.5 Mcg Inhaler] #1 each Dapagliflozin Propanediol [Farxiga] 5 mg PO DAILY 90 Days #90 tab 04/08/24 04/16/24 Rx Sodium Bicarbonate Tab 650 mg PO DAILY 90 Days #90 tab 04/08/24 04/16/24 Rx Gabapentin [Neurontin] 300 mg PO TID 04/16/24 04/16/24 History Ipratropium-Albuterol Nebulize 3 ml INHALATION RT-TID 04/16/24 04/16/24 History [Duoneb 0.5 mg-3 mg/3 ml Soln] Midodrine [ProAmatine] 5 mg PO TID 04/16/24 04/16/24 History Tiotropium 2.5 Mcg/Puff [Spiriva 1 puff INHALATION RT-DAILY 04/16/24 04/16/24 History Respimat 2.5 Mcg] Allergies Allergy/AdvReac Type Severity Reaction Status Date / Time Penicillins Allergy Anaphylaxis Verified 04/16/24 12:57 Physical Exam Vitals: Vital Signs Temp Pulse Resp BP Pulse Ox 04/20/24 10:00 97 17 109/50 94 L 04/20/24 09:00 101 H 17 94/55 97 04/20/24 08:50 96 04/20/24 08:35 98 04/20/24 08:34 94 04/20/24 08:00 89 15 95/61 97 04/20/24 07:00 88 17 94/52 98 04/20/24 06:00 100 15 113/65 97 04/20/24 05:00 104 H 13 94/43 96 04/20/24 04:00 97.9 F 99 18 110/48 96 04/20/24 03:00 96 15 95/51 97 04/20/24 02:00 96 11 L 101/48 96 04/20/24 01:00 103 H 14 111/50 96 04/20/24 00:00 98.1 F 101 H 14 106/55 97 04/19/24 23:05 100 14 106/55 98 04/19/24 23:00 104 H 15 112/63 98 04/19/24 22:00 109 H 16 108/55 98 04/19/24 21:00 102 H 14 117/59 96 04/19/24 20:10 89 18 04/19/24 20:04 98 18 04/19/24 20:00 98.2 F 99 20 112/69 98 04/19/24 19:00 98 16 101/62 98 04/19/24 18:00 101 H 14 101/62 95 04/19/24 17:00 110 H 14 120/91 94 L 04/19/24 16:00 98.2 F 103 H 27 H 113/77 96 04/19/24 15:00 111 H 33 H 106/64 95 04/19/24 14:00 103 H 15 114/86 97 04/19/24 13:46 101 H 14 04/19/24 13:39 98 20 04/19/24 13:00 112 H 17 101/69 97 04/19/24 12:00 98.4 F 96 15 105/60 94 L Intake and Output 04/19/24 04/20/24 04/20/24 22:59 06:59 14:59 Intake Total 670 250 400 Output Total 820 485 90 Balance -150 -235 310 Intake: IV 40 40 100 Invasive Line 1 20 20 Invasive Line 2 20 20 Sodium Ferric Gluconat- 100 Sucrose 125 mg In Sodium Chloride 0.9% 100 ml @ 100 mls/hr IVPB DAILY [facility] Rx#:[id number] Oral 630 210 300 Output: Drainage 400 50 Right Lower Abdomen 400 50 Urine 420 435 90 Other: Voiding Method Indwelling Catheter Indwelling Catheter GENERAL DESCRIPTION: Middle-aged female lying in bed, no distress. No tachypnea or accessory muscle of respiration use. HEENT: Shows Pallor , no scleral icterus. Oral mucous membrane is dry. No pharyngeal erythema or thrush NECK: Trachea central, no thyromegaly. LUNGS: Unlabored breathing. Clear to auscultation anteriorly. No wheeze or crackle. HEART: S1, S2, regular rate and rhythm. No loud murmur ABDOMEN: Soft, no tenderness , guarding or rigidity, no organomegaly EXTREMITIES: Left leg with diffuse swelling redness and warmth to touch SKIN: No rash, no masses palpable. NEUROLOGICAL: The patient is awake, alert, oriented x3, mood and affect normal. Results CBC & Chem 7: 04/21/24 03:00 04/21/24 03:00 Labs: Abnormal Lab Results - Last 24 Hours (Table) 04/19/24 04/20/24 04/20/24 Range/Units 14:09 05:27 05:27 RBC 2.68 L (3.80-5.40) m/uL Hgb 8.4 L (11.4-16.0) gm/dL Hct 27.4 L (34.0-46.0) % MCV 102.4 H (80.0-100.0) fL MCHC 30.5 L (31.0-37.0) g/dL RDW 19.4 H (11.5-15.5) % Plt Count 122 L (150-450) k/uL Sodium 127 L 125 L (137-145) mmol/L Carbon Dioxide 17 L (22-30) mmol/L BUN 27 H (7-17) mg/dL Creatinine 1.20 H (0.52-1.04) mg/dL Glucose 120 H (74-99) mg/dL Calcium 7.8 L (8.4-10.2) mg/dL AST 45 H (14-36) U/L Total Protein 4.2 L (6.3-8.2) g/dL Albumin 2.0 L (3.5-5.0) g/dL Assessment and Plan (1) Left leg cellulitis Current Visit: Yes Status: Acute Code(s): L03.116 - CELLULITIS OF LEFT LOWER LIMB SNOMED Code(s): 33806513844791980 (2) Penicillin allergy Current Visit: No Status: Acute Code(s): Z88.0 - ALLERGY STATUS TO PENICILLIN SNOMED Code(s): 40365867 Plan: 1patient with initial admission to the hospital with hyponatremia in this patient noticed to have diffuse swelling redness of left lower extremity concerning for cellulitis likely from gram-positive skin lawrence such as strep. 2patient with a penicillin allergy that will limit the number of antibiotics safe to use. 3concern for UTI however the patient did have a negative UA on admission and no urinary symptoms. 4we will apply Theo wrap to both the leg to get some of the swelling down and marked the area of the redness 5we will start the patient cefazolin 2 g every 8 hours We will follow on clinical condition and cultures to further adjust medication if needed Thank you for this consultation we will follow the patient along with you Dictation was produced using [employer] dictation software. please excuse any grammatical, word or spelling errors. Time with Patient: Greater than 30
--- NOTE | 2024-04-21 12:08 | P.PN ---
Subjective Progress Note Date: 04/21/24 Principal diagnosis: Hyponatremia. This is a 44-year-old female with known history of cirrhosis of the liver, patient quit drinking alcohol in the last 6 months. Patient does have history of chronic fluid retention and ascites related to her chronic liver disease, and she has history of chronic hyponatremia. Her sodium has always been in the range of 1 20-1 26 at best over the last few months. And the patient had multiple admissions with hyponatremia. Apparently the patient came to the hospital yesterday because outpatient blood test showed a sodium of 114. Patient had no major symptoms except for generalized weakness no symptoms of seizures or seizures activity. Patient was seen in the ER, and the recommendation was to start the patient on 3% saline and admit the patient to the ICU for 3% saline infusion. She did receive 3% saline, and her sodium this morning is 119. Her mental status seems to be very appropriate. Patient is hemodynamically stable, she is on diuretics at home in the form of Aldactone. Patient had no previous history of malignancy. And in the past her low sodium has been diagnosed to be related to her liver disease and possibly underlying SIADH. Patient was recently in the hospital for cholecystectomy this was done by Dr. José Miguel wynn, and she continues to have some persistent oozing and drainage from her abdominal wall at the site of her SALVADOR drain. Patient denies any shortness of breath no cough no wheezing no chest pain. CBC is relatively normal basic metabolic profile showed a sodium of 119 bicarb is 13 patient received sodium bicarb as ordered by nephrology her BUN is 26 creatinine 1.06. Liver enzymes noted her ammonia level is 39 Progress note dated April 18, 2024. 44-year-old female seen yesterday in consultation. She has a history of cirrhosis, chronic alcohol abuse, and a recent admission to the hospital, at which time, she was being treated for hyponatremia. The patient was readmitted to the hospital, with hyponatremia, on April 16, with a sodium of 114. Today, her sodium is 123. She is currently on 2 L of oxygen. The patient is receiving norepinephrine at 0.02 mcg/kg/min. She is also getting saline at 20 cc an hour. On her previous admission, the patient had refractory hyponatremia, despite aggressive treatment with 3% saline, and other medications. Current laboratory data includes a white count 7.2, hemoglobin 8.7, hematocrit 26.7, and platelet count of 131,000. Sodium 123, potassium 3.9, chlorides 97, CO2 18, BUN 27, and creatinine 1.09. Progress note dated April 19, 2024. 44-year-old female seen again in room 262. Her current sodium is 126. For a brief period of time, she was back on 3% saline. Currently, she is on room air. She is not receiving any IV fluids. Clinically, she has been very stable, and she has had an uneventful night. White count 6.5, hemoglobin 8.5, hematocrit 26.5, and platelet count of 125,000. Sodium 126, potassium 3.7, chlorides 100, CO2 19, BUN 28, creatinine 1.16. Albumin is 2.1. Progress note dated April 20, 2024. 44-year-old female seen in room 262. She is on room air. She is not receiving any IV fluids. Today sodium is 125. She is asymptomatic. White count is 9.1, hemoglobin 8.4, hematocrit 27.4, with a platelet count of 122,000. Sodium 125, potassium 3.9, chlorides 101, CO2 17, BUN 27, and creatinine 1.20. Glucose is 120. Calcium is 7.8. Albumin is 2. Progress note dated April 21, 2024. The patient is seen today in room 519. The patient is on room air. She is not receiving any IV fluids. Room air saturation is 97%. Her sodium this morning was 124. She was admitted with a diagnosis of hyponatremia. She has been in and out of the intensive care unit, for hypotension, and hyponatremia. Labs today include a white count of 8, hemoglobin 8.1, hematocrit 25, platelet count 118,000. Sodium 124, potassium 3.6, chlorides 100, CO2 20, BUN 22, creatinine 1.13. The patient continues on Ancef, as per infectious diseases. Objective - Vital Signs Vital signs: Vital Signs Temp 98.3 F 04/21/24 07:08 Pulse 96 04/21/24 11:52 Resp 16 04/21/24 07:08 BP 95/55 04/21/24 07:08 Pulse Ox 95 04/21/24 07:54 FiO2 Intake & Output 04/20/24 04/21/24 04/21/24 18:59 06:59 18:59 Intake Total 965 610 Output Total 270 300 Balance 695 310 Intake: IV 110 Invasive Line 2 10 Sodium Ferric Gluconat- 100 Sucrose 125 mg In Sodium Chloride 0.9% 100 ml @ 100 mls/hr IVPB DAILY [facility] Rx#:[id number] Intake, IV Titration 150 50 Amount Albumin Human 25% 50 ml 100 In Empty Bag 1 bag @ 50 mls/hr IVPB Q1H [facility] Rx#: [id number] ceFAZolin 2 gm In Sodium 50 50 Chloride 0.9% 50 ml @ 100 mls/hr IVPB Q8H [facility] Rx#: [id number] Oral 705 560 Output: Drainage 80 50 Right Lower Abdomen 80 50 Urine 190 250 Other: Voiding Method Indwelling Catheter Toilet - Exam No acute distress, oriented 3. Respiratory distress. Currently on room air. HEENT examination is grossly unremarkable. Mucous membranes are moist. No oral lesions. Neck supple. Full range of motion. No adenopathy thyromegaly or neck vein distention. Cardiovascular examination reveals regular rhythm rate. S1-S2 normal. No S3 or S4. No discernible murmur noted. Lungs reveal clear breath sounds. Breath sounds are equal bilaterally. No adventitious lung sounds including wheezes rhonchi or crackles. Abdomen soft bowel sounds are heard. No masses or tenderness. Extremities are intact. No cyanosis clubbing or edema. Skin is without rash or lesion. Neurologic examination is brief but nonfocal. - Labs CBC & Chem 7: 04/21/24 03:00 04/21/24 03:00 Labs: Abnormal Lab Results - Last 24 Hours (Table) 04/20/24 04/20/24 04/21/24 Range/Units 16:10 17:30 03:00 RBC (3.80-5.40) m/uL Hgb (11.4-16.0) gm/dL Hct (34.0-46.0) % MCV (80.0-100.0) fL RDW (11.5-15.5) % Plt Count (150-450) k/uL Sodium 125 L 124 L (137-145) mmol/L Carbon Dioxide 20 L (22-30) mmol/L BUN 22 H (7-17) mg/dL Creatinine 1.13 H (0.52-1.04) mg/dL Calcium 7.8 L (8.4-10.2) mg/dL Urine Appearance Cloudy H (Clear) Urine Protein Trace H (Negative) Ur Leukocyte Esterase Moderate H (Negative) Urine WBC 41 H (0-5) /hpf Ur Squamous Epith Cells 25 H (0-4) /hpf Urine Bacteria Occasional H (None) /hpf 04/21/24 Range/Units 03:00 RBC 2.50 L (3.80-5.40) m/uL Hgb 8.1 L (11.4-16.0) gm/dL Hct 25.0 L (34.0-46.0) % MCV 100.1 H (80.0-100.0) fL RDW 20.3 H (11.5-15.5) % Plt Count 118 L (150-450) k/uL Sodium (137-145) mmol/L Carbon Dioxide (22-30) mmol/L BUN (7-17) mg/dL Creatinine (0.52-1.04) mg/dL Calcium (8.4-10.2) mg/dL Urine Appearance (Clear) Urine Protein (Negative) Ur Leukocyte Esterase (Negative) Urine WBC (0-5) /hpf Ur Squamous Epith Cells (0-4) /hpf Urine Bacteria (None) /hpf Assessment and Plan Assessment: Hypervolemic hyponatremia, improved. History of liver cirrhosis, secondary to chronic alcohol abuse. History of chronic anemia. Ascites. History of recent cholecystectomy. History of GI bleed, February 19, 2024, requiring EGD. History of esophageal varices. History of COPD. History of bipolar disorder. History of chronic thrombocytopenia. Plan: Plan dated April 18, 2024. The patient is seen in the intensive care unit, room 262. She came in with an a dmission sodium of 114. Today sodium is 123. She was on 3% saline. That has been discontinued. The patient is getting saline at 20 cc an hour. She is on nasal O2 at 2 L. She continues on norepinephrine at 0.02 mcg/kg/min. Not sure why the patient is hypotensive, but, I have asked for a urinalysis. The patient is having lower abdominal pain. Labs, x-rays, and medications are reviewed. Will continue to follow the patient, and make recommendations. Prognosis is guarded. Sodium is much improved. Plan dated April 19, 2024. The patient is seen today in room 262. She is not receiving any fluids. She is on room air. Her sodium this morning was 126. Apparently, she was on 3% franklin ine, for a brief period of time. We will continue to follow, while she is in the intensive care unit. No additional recommendations are made. Labs, x-rays, and all medications have been reviewed. Plan dated April 20, 2024. The patient is stable. Today's sodium is 125. A repeat sodium is pending. The patient is on room air. The patient is not receiving any IV fluids. Her blood pressure stable. Even when her blood pressure is a bit low, she is lucid and oriented. In my opinion, the patient could be transferred out of the intensive care unit. No additional recommendations are made. Plan dated April 21, 2024. The patient was transferred out of the intensive care unit yesterday. She is seen on the general medical floor. She continues on room air. She is not receiving any IV fluids. She continues on Ancef as per infectious diseases. The patient's sodium this morning was 124. Her room air saturations are 97%. Time with Patient: Less than 30
--- NOTE | 2024-04-21 12:10 | P.PN ---
Subjective patient is seen for follow-up for hyponatremia. We are limited with options for treatment of hyponatremia given the underlying liver cirrhosis and volume overload. Therefore patient is not maintained on sodium chloride tabs. Patient has been very sensitive to Lasix with significant hypotension noted with IV Lasix during her last admission as well. Currently maintained on midodrine and off of levo fed. Samsca is also not in ideal option given underlying liver cirrhosis. Status post 3% saline and serum sodium has increased to 125-127. Off of Lasix Patient was started on Bactrim due to urine culture on 03/30/2024 growing Enterococcus faecalis and Hafnia. Patient is also noted to have significant right leg cellulitis. Blood pressure has been on the lower side. Serum sodium at 124 this morning Objective - Vital Signs Vital signs: Vital Signs Temp 98.3 F 04/21/24 07:08 Pulse 100 04/21/24 12:06 Resp 16 04/21/24 07:08 BP 95/55 04/21/24 07:08 Pulse Ox 95 04/21/24 07:54 FiO2 Intake & Output 04/20/24 04/21/24 04/21/24 18:59 06:59 18:59 Intake Total 965 610 Output Total 270 300 Balance 695 310 Intake: IV 110 Invasive Line 2 10 Sodium Ferric Gluconat- 100 Sucrose 125 mg In Sodium Chloride 0.9% 100 ml @ 100 mls/hr IVPB DAILY [facility] Rx#:[id number] Intake, IV Titration 150 50 Amount Albumin Human 25% 50 ml 100 In Empty Bag 1 bag @ 50 mls/hr IVPB Q1H [facility] Rx#: [id number] ceFAZolin 2 gm In Sodium 50 50 Chloride 0.9% 50 ml @ 100 mls/hr IVPB Q8H [facility] Rx#: [id number] Oral 705 560 Output: Drainage 80 50 Right Lower Abdomen 80 50 Urine 190 250 Other: Voiding Method Indwelling Catheter Toilet - Exam awake, comfortable, no acute distress. Examination of the heart S1 and S2 Examination of the lungs bilateral breath sounds are heard Abdomen is soft nontender, distended with ascites Examination of lower extremities shows edema 1+ bilaterally, redness and worsening edema noted in the left lower leg [employer] exam grossly intact - Labs CBC & Chem 7: 04/21/24 03:00 04/21/24 03:00 Labs: Abnormal Lab Results - Last 24 Hours (Table) 04/20/24 04/20/24 04/21/24 Range/Units 16:10 17:30 03:00 RBC (3.80-5.40) m/uL Hgb (11.4-16.0) gm/dL Hct (34.0-46.0) % MCV (80.0-100.0) fL RDW (11.5-15.5) % Plt Count (150-450) k/uL Sodium 125 L 124 L (137-145) mmol/L Carbon Dioxide 20 L (22-30) mmol/L BUN 22 H (7-17) mg/dL Creatinine 1.13 H (0.52-1.04) mg/dL Calcium 7.8 L (8.4-10.2) mg/dL Urine Appearance Cloudy H (Clear) Urine Protein Trace H (Negative) Ur Leukocyte Esterase Moderate H (Negative) Urine WBC 41 H (0-5) /hpf Ur Squamous Epith Cells 25 H (0-4) /hpf Urine Bacteria Occasional H (None) /hpf 04/21/24 Range/Units 03:00 RBC 2.50 L (3.80-5.40) m/uL Hgb 8.1 L (11.4-16.0) gm/dL Hct 25.0 L (34.0-46.0) % MCV 100.1 H (80.0-100.0) fL RDW 20.3 H (11.5-15.5) % Plt Count 118 L (150-450) k/uL Sodium (137-145) mmol/L Carbon Dioxide (22-30) mmol/L BUN (7-17) mg/dL Creatinine (0.52-1.04) mg/dL Calcium (8.4-10.2) mg/dL Urine Appearance (Clear) Urine Protein (Negative) Ur Leukocyte Esterase (Negative) Urine WBC (0-5) /hpf Ur Squamous Epith Cells (0-4) /hpf Urine Bacteria (None) /hpf Assessment and Plan Assessment: 1. Hyponatremia with underlying liver cirrhosis. Currently hypervolemic and responded well to 3% saline. Lasix will be switched to oral while off of 3% saline. We're limited with choices for treatment of hyponatremia given the underlying's liver cirrhosis and contraindication to use of Samsca. Patient has developed significant volume overload with sodium chloride tabs, therefore this will be avoided. Patient is started on demeclocycline. 2. Alcohol-induced liver cirrhosis 3. Volume overload 4. Status post recent cholecystectomy 5. Cellulitis left lower leg 6. Metabolic acidosis maintained on oral sodium bicarb 7. Elevated creatinine due to recent initiation of Bactrim , now discontinued and serum creatinine is trending down. Plan: Continue with demeclocycline continue off of Bactrim Antibiotics as per ID Continue with midodrine Continue sodium bicarb for metabolic acidosis Avoid sodium chloride tabs due to hypervolemia Samsca not an ideal option due to underlying liver cirrhosis
[2024-04-21 14:06] VITALS: BMI 43.2
[2024-04-21] MEDS: POTASSIUM CHLORIDE ER 20 MEQ TAB.ER PO SCH ×2 (14:18→21:17)
--- NOTE | 2024-04-21 15:43 | P.PN ---
Subjective Progress Note Date: 04/21/24 Principal diagnosis: Reason for follow-up is left leg cellulitis and possible UTI Patient is a 44-year-old female with a past medical history significant for cirrhosis of the liver bipolar disorder reflux recent admission to the hospital for cholecystitis status post cholecystectomy in this patient presenting to the hospital for hyponatremia also noticed to have increasing swelling redness of the left leg concerning for cellulitis prompting this consultation. On today's evaluation that is 04/21/2024,the patient remains to be afebrile, patient is on room air not requiring supplemental oxygen and denies any shortness of breath no chest pain or cough.Patient denies having any nausea or vomiting, no abdominal pain and denies any worsening pain to the lower extremi ty. Patient white count is 8.0, 0.13 sodium is 120 4 repeat urine is mildly positive Objective - Vital Signs Vital signs: Vital Signs Temp 98.2 F 04/21/24 12:12 Pulse 102 H 04/21/24 12:12 Resp 17 04/21/24 12:12 BP 110/62 04/21/24 12:12 Pulse Ox 97 04/21/24 12:12 FiO2 Intake & Output 04/20/24 04/21/24 04/21/24 18:59 06:59 18:59 Intake Total 965 610 Output Total 270 300 Balance 695 310 Weight 114.4 kg Intake: IV 110 Invasive Line 2 10 Sodium Ferric Gluconat- 100 Sucrose 125 mg In Sodium Chloride 0.9% 100 ml @ 100 mls/hr IVPB DAILY [facility] Rx#:[id number] Intake, IV Titration 150 50 Amount Albumin Human 25% 50 ml 100 In Empty Bag 1 bag @ 50 mls/hr IVPB Q1H [facility] Rx#: [id number] ceFAZolin 2 gm In Sodium 50 50 Chloride 0.9% 50 ml @ 100 mls/hr IVPB Q8H [facility] Rx#: [id number] Oral 705 560 Output: Drainage 80 50 Right Lower Abdomen 80 50 Urine 190 250 Other: Voiding Method Indwelling Catheter Toilet - Exam GENERAL DESCRIPTION: Middle-age female lying in bed in no distress RESPIRATORY SYSTEM: Unlabored breathing , decreased breath sounds at bases HEART: S1 S2 regular rate and rhythm , ABDOMEN: Soft , no tenderness EXTREMITIES: Bilateral legs are currently wrapped in Theo wrap - Labs CBC & Chem 7: 04/21/24 03:00 04/21/24 03:00 Labs: Abnormal Lab Results - Last 24 Hours (Table) 04/20/24 04/20/24 04/21/24 Range/Units 16:10 17:30 03:00 RBC (3.80-5.40) m/uL Hgb (11.4-16.0) gm/dL Hct (34.0-46.0) % MCV (80.0-100.0) fL RDW (11.5-15.5) % Plt Count (150-450) k/uL Sodium 125 L 124 L (137-145) mmol/L Carbon Dioxide 20 L (22-30) mmol/L BUN 22 H (7-17) mg/dL Creatinine 1.13 H (0.52-1.04) mg/dL Calcium 7.8 L (8.4-10.2) mg/dL Urine Appearance Cloudy H (Clear) Urine Protein Trace H (Negative) Ur Leukocyte Esterase Moderate H (Negative) Urine WBC 41 H (0-5) /hpf Ur Squamous Epith Cells 25 H (0-4) /hpf Urine Bacteria Occasional H (None) /hpf 04/21/24 Range/Units 03:00 RBC 2.50 L (3.80-5.40) m/uL Hgb 8.1 L (11.4-16.0) gm/dL Hct 25.0 L (34.0-46.0) % MCV 100.1 H (80.0-100.0) fL RDW 20.3 H (11.5-15.5) % Plt Count 118 L (150-450) k/uL Sodium (137-145) mmol/L Carbon Dioxide (22-30) mmol/L BUN (7-17) mg/dL Creatinine (0.52-1.04) mg/dL Calcium (8.4-10.2) mg/dL Urine Appearance (Clear) Urine Protein (Negative) Ur Leukocyte Esterase (Negative) Urine WBC (0-5) /hpf Ur Squamous Epith Cells (0-4) /hpf Urine Bacteria (None) /hpf Assessment and Plan (1) Left leg cellulitis Current Visit: Yes Status: Acute Code(s): L03.116 - CELLULITIS OF LEFT LOWER LIMB SNOMED Code(s): 45508687470430879 (2) Penicillin allergy Current Visit: No Status: Acute Code(s): Z88.0 - ALLERGY STATUS TO PENICILLIN SNOMED Code(s): 55860226 Plan: 1patient with initial admission to the hospital with hyponatremia in this patient noticed to have diffuse swelling redness of left lower extremity concerning for cellulitis likely from gram-positive skin lawrence such as strep. 2patient with a penicillin allergy that will limit the number of antibiotics safe to use. 3 patient to continue with Theo wrap to both the leg to get some of the swelling down and marked the area of the redness 4patient is currently covered with cefazolin 2 g every 8 hours, patient did have some urinary symptoms of burning post removal of the Arias catheter repeat urine is positive cultures will be followed antibiotic may need to be adjusted Dictation was produced using [employer] dictation software. please excuse any grammatical, word or spelling errors.
[2024-04-21] MEDS ORDERED: VANCOMYCIN IV PER PHARMACY 1 EACH MISC MISCELLANE PRN (23:18)
[2024-04-22] MEDS: VANCOMYCIN 1,750 MG in SODIUM CHLORIDE 0.9% 500 ML 500 ML IVPB SCH (00:22)
--- NOTE | 2024-04-22 11:30 | P.PN ---
Subjective Progress Note Date: 04/22/24 Principal diagnosis: Hyponatremia. This is a 44-year-old female with known history of cirrhosis of the liver, patient quit drinking alcohol in the last 6 months. Patient does have history of chronic fluid retention and ascites related to her chronic liver disease, and she has history of chronic hyponatremia. Her sodium has always been in the range of 1 20-1 26 at best over the last few months. And the patient had multiple admissions with hyponatremia. Apparently the patient came to the hospital yesterday because outpatient blood test showed a sodium of 114. Patient had no major symptoms except for generalized weakness no symptoms of seizures or seizures activity. Patient was seen in the ER, and the recommendation was to start the patient on 3% saline and admit the patient to the ICU for 3% saline infusion. She did receive 3% saline, and her sodium this morning is 119. Her mental status seems to be very appropriate. Patient is hemodynamically stable, she is on diuretics at home in the form of Aldactone. Patient had no previous history of malignancy. And in the past her low sodium has been diagnosed to be related to her liver disease and possibly underlying SIADH. Patient was recently in the hospital for cholecystectomy this was done by Dr. José Miguel wynn, and she continues to have some persistent oozing and drainage from her abdominal wall at the site of her SALVADOR drain. Patient denies any shortness of breath no cough no wheezing no chest pain. CBC is relatively normal basic metabolic profile showed a sodium of 119 bicarb is 13 patient received sodium bicarb as ordered by nephrology her BUN is 26 creatinine 1.06. Liver enzymes noted her ammonia level is 39 Progress note dated April 18, 2024. 44-year-old female seen yesterday in consultation. She has a history of cirrhosis, chronic alcohol abuse, and a recent admission to the hospital, at which time, she was being treated for hyponatremia. The patient was readmitted to the hospital, with hyponatremia, on April 16, with a sodium of 114. Today, her sodium is 123. She is currently on 2 L of oxygen. The patient is receiving norepinephrine at 0.02 mcg/kg/min. She is also getting saline at 20 cc an hour. On her previous admission, the patient had refractory hyponatremia, despite aggressive treatment with 3% saline, and other medications. Current laboratory data includes a white count 7.2, hemoglobin 8.7, hematocrit 26.7, and platelet count of 131,000. Sodium 123, potassium 3.9, chlorides 97, CO2 18, BUN 27, and creatinine 1.09. Progress note dated April 19, 2024. 44-year-old female seen again in room 262. Her current sodium is 126. For a brief period of time, she was back on 3% saline. Currently, she is on room air. She is not receiving any IV fluids. Clinically, she has been very stable, and she has had an uneventful night. White count 6.5, hemoglobin 8.5, hematocrit 26.5, and platelet count of 125,000. Sodium 126, potassium 3.7, chlorides 100, CO2 19, BUN 28, creatinine 1.16. Albumin is 2.1. Progress note dated April 20, 2024. 44-year-old female seen in room 262. She is on room air. She is not receiving any IV fluids. Today sodium is 125. She is asymptomatic. White count is 9.1, hemoglobin 8.4, hematocrit 27.4, with a platelet count of 122,000. Sodium 125, potassium 3.9, chlorides 101, CO2 17, BUN 27, and creatinine 1.20. Glucose is 120. Calcium is 7.8. Albumin is 2. Progress note dated April 21, 2024. The patient is seen today in room 519. The patient is on room air. She is not receiving any IV fluids. Room air saturation is 97%. Her sodium this morning was 124. She was admitted with a diagnosis of hyponatremia. She has been in and out of the intensive care unit, for hypotension, and hyponatremia. Labs today include a white count of 8, hemoglobin 8.1, hematocrit 25, platelet count 118,000. Sodium 124, potassium 3.6, chlorides 100, CO2 20, BUN 22, creatinine 1.13. The patient continues on Ancef, as per infectious diseases. Progress note dated April 30, 2024. 44-year-old female seen today in room 519. The patient is on room air. No IV fluids. Yesterday sodium was 124. No sodium yet back on the chart today. The patient has no new complaints. He was admitted primarily for hyponatremia. Urine culture showed evidence of group D Enterococcus, and gram-negative bacilli. She continues on vancomycin as per infectious diseases. Objective - Vital Signs Vital signs: Vital Signs Temp 98.2 F 04/22/24 07:10 Pulse 88 04/22/24 08:23 Resp 14 04/22/24 07:10 BP 94/63 04/22/24 07:10 Pulse Ox 98 04/22/24 08:09 FiO2 Intake & Output 04/21/24 04/22/24 04/22/24 18:59 06:59 18:59 Intake Total 730 230 290 Output Total 100 Balance 730 130 290 Weight 114.4 kg Intake: Oral 730 230 290 Output: Drainage 100 Right Lower Abdomen 100 Other: # Voids 3 - Exam No acute distress, oriented 3. Respiratory distress. Currently on room air. HEENT examination is grossly unremarkable. Mucous membranes are moist. No oral lesions. Neck supple. Full range of motion. No adenopathy thyromegaly or neck vein distention. Cardiovascular examination reveals regular rhythm rate. S1-S2 normal. No S3 or S4. No discernible murmur noted. Lungs reveal clear breath sounds. Breath sounds are equal bilaterally. No adventitious lung sounds including wheezes rhonchi or crackles. Abdomen soft bowel sounds are heard. No masses or tenderness. Extremities are intact. No cyanosis clubbing or edema. Skin is without rash or lesion. Neurologic examination is brief but nonfocal. - Labs CBC & Chem 7: 04/21/24 03:00 04/22/24 03:14 Labs: Microbiology - Last 24 Hours (Table) 04/20/24 17:30 Urine Culture - Preliminary Urine,Voided Group D Enterococcus Gram Neg Bacilli Assessment and Plan Assessment: Hypervolemic hyponatremia, improved. History of liver cirrhosis, secondary to chronic alcohol abuse. Group D enterococcal urinary tract infection. History of chronic anemia. Ascites. History of recent cholecystectomy. History of GI bleed, February 19, 2024, requiring EGD. History of esophageal varices. History of COPD. History of bipolar disorder. History of chronic thrombocytopenia. Plan: Plan dated April 18, 2024. The patient is seen in the intensive care unit, room 262. She came in with an admission sodium of 114. Today sodium is 123. She was on 3% saline. That has been discontinued. The patient is getting saline at 20 cc an hour. She is on nasal O2 at 2 L. She continues on norepinephrine at 0.02 mcg/kg/min. Not sure why the patient is hypotensive, but, I have asked for a urinalysis. The patient is having lower abdominal pain. Labs, x-rays, and medications are reviewed. Will continue to follow the patient, and make recommendations. Prognosis is guarded. Sodium is much improved. Plan dated April 19, 2024. The patient is seen today in room 262. She is not receiving any fluids. She is on room air. Her sodium this morning was 126. Apparently, she was on 3% saline, for a brief period of time. We will continue to follow, while she is in the intensive care unit. No additional recommendations are made. Labs, x-rays, and all medications have been reviewed. Plan dated April 20, 2024. The patient is stable. Today's sodium is 125. A repeat sodium is pending. The patient is on room air. The patient is not receiving any IV fluids. Her blood pressure stable. Even when her blood pressure is a bit low, she is lucid and oriented. In my opinion, the patient could be transferred out of the intensive care unit. No additional recommendations are made. Plan dated April 21, 2024. The patient was transferred out of the intensive care unit yesterday. She is se en on the general medical floor. She continues on room air. She is not receiving any IV fluids. She continues on Ancef as per infectious diseases. The patient's sodium this morning was 124. Her room air saturations are 97%. Plan dated April 22, 2024. The patient appears to be doing relatively well. The patient continues on vancomycin for her urinary tract infection caused by group D Enterococcus. The patient is on room air. No IV fluids. No sodium yet back on the chart from today. Her last sodium done yesterday, was 124. Labs, x-rays, and medications are reviewed. Prognosis is guarded. Time with Patient: Less than 30
--- NOTE | 2024-04-22 14:50 | P.PN ---
Subjective Progress Note Date: 04/22/24 Principal diagnosis: Reason for follow-up is left leg cellulitis and possible UTI Patient is a 44-year-old female with a past medical history significant for cirrhosis of the liver bipolar disorder reflux recent admission to the hospital for cholecystitis status post cholecystectomy in this patient presenting to the hospital for hyponatremia also noticed to have increasing swelling redness of the left leg concerning for cellulitis prompting this consultation. On today's evaluation that is 04/22/2024, the patient continues to be afebrile, the patient is on room air and breathing comfortably, the Pt denies having any chest pain or cough, the patient did have some abdominal distention but denies significant abdominal pain some nausea but no vomiting she was complaining of suprapubic discomfort and burning urine last night, denies any worsening pain to the left lower extremity. Patient did not have any CBC done today urine is growing gram-negative and group D Enterococcus Objective - Vital Signs Vital signs: Vital Signs Temp 98.1 F 04/22/24 12:48 Pulse 94 04/22/24 12:48 Resp 14 04/22/24 12:48 BP 103/63 04/22/24 12:48 Pulse Ox 94 L 04/22/24 12:48 FiO2 Intake & Output 04/21/24 04/22/24 04/22/24 18:59 06:59 18:59 Intake Total 730 230 530 Output Total 100 Balance 730 130 530 Weight 114.4 kg Intake: Oral 730 230 530 Output: Drainage 100 Right Lower Abdomen 100 Other: # Voids 3 - Exam GENERAL DESCRIPTION: Middle-age female lying in bed in no distress RESPIRATORY SYSTEM: Unlabored breathing , decreased breath sounds at bases HEART: S1 S2 regular rate and rhythm , ABDOMEN: Soft , no tenderness EXTREMITIES: Left leg swelling redness slightly decreased - Labs CBC & Chem 7: 04/21/24 03:00 04/22/24 03:14 Labs: Microbiology - Last 24 Hours (Table) 04/20/24 17:30 Urine Culture - Preliminary Urine,Voided Group D Enterococcus Gram Neg Bacilli Assessment and Plan (1) Left leg cellulitis Current Visit: Yes Status: Acute Code(s): L03.116 - CELLULITIS OF LEFT LOWER LIMB SNOMED Code(s): 16755898063715797 (2) Penicillin allergy Current Visit: No Status: Acute Code(s): Z88.0 - ALLERGY STATUS TO PENICILLIN SNOMED Code(s): 31853865 (3) UTI (urinary tract infection) due to Enterococcus Current Visit: Yes Status: Acute Code(s): N39.0 - URINARY TRACT INFECTION, SITE NOT SPECIFIED; B95.2 - ENTEROCOCCUS THE CAUSE OF DISEASES CLASSIFIED ELSEWHERE SNOMED Code(s): 377761328306778 Plan: 1patient with initial admission to the hospital with hyponatremia in this patie nt noticed to have diffuse swelling redness of left lower extremity concerning for cellulitis likely from gram-positive skin lawrence such as strep. 2patient with a penicillin allergy that will limit the number of antibiotics safe to use. 3 patient to continue with Theo wrap to both the leg to get some of the swelling down and marked the area of the redness 4patient urine is now growing group B Enterococcus and gram-negative and the patient is symptomatic complaining of suprapubic pain and burning of urine antibiotic were adjusted last night to vancomycin we will add cefepime to cover for the gram-negative while waiting for the culture to finalize and that should also cover the cellulitis Dictation was produced using [employer] dictation software. please excuse any grammatical, word or spelling errors. Time with Patient: Greater than 30
[2024-04-22] MEDS: CEFEPIME 2 GM in SODIUM CHLORIDE 0.9% 100 ML IVPB SCH (15:30)
--- NOTE | 2024-04-22 19:11 | P.PN ---
Subjective patient is seen for follow-up for hyponatremia. We are limited with options for treatment of hyponatremia given the underlying liver cirrhosis and volume overload. Therefore patient is not maintained on sodium chloride tabs. Patient has been very sensitive to Lasix with significant hypotension noted with IV Lasix during her last admission as well. Currently maintained on midodrine and off of levo fed. Samsca is also not in ideal option given underlying liver cirrhosis. Status post 3% saline and serum sodium has increased to 125-127. Off of Lasix as patient has developed significant hypotension and hyponatremia with Lasix. Currently maintained on demeclocycline and serum sodium has finally increased to 129 today! maintained on antibiotics for left leg cellulitis and UTI. Objective - Vital Signs Vital signs: Vital Signs Temp 98.1 F 04/22/24 12:48 Pulse 92 04/22/24 13:55 Resp 14 04/22/24 12:48 BP 103/63 04/22/24 12:48 Pulse Ox 94 L 04/22/24 12:48 FiO2 Intake & Output 04/22/24 04/22/24 04/23/24 06:59 18:59 06:59 Intake Total 230 2070 Output Total 100 30 Balance 130 2040 Intake: Intake, IV Titration 1300 Amount Cefepime 2 gm In Sodium 200 Chloride 0.9% 100 ml @ 25 mls/hr IVPB Q8HR JOC[facility] Rx# :[id number] Sodium Ferric Gluconat- 100 Sucrose 125 mg In Sodium Chloride 0.9% 100 ml @ 100 mls/hr IVPB DAILY JOC[facility] Rx#:[id number] Vancomycin 1,750 mg In 1000 Sodium Chloride 0.9% 500 ml 500 ml @ 167 mls/hr IVPB Q16H JOCELYN Rx#: [id number] Oral 230 770 Output: Drainage 100 30 Right Lower Abdomen 100 30 Other: # Voids 3 - Exam awake, comfortable, no acute distress. Examination of the heart S1 and S2 Examination of the lungs bilateral breath sounds are heard Abdomen is soft nontender, distended with ascites Examination of lower extremities shows edema 1+ bilaterally, redness and worsening edema noted in the left lower leg GUARD [employer]IEF exam grossly intact - Labs CBC & Chem 7: 04/21/24 03:00 04/22/24 03:14 Labs: Abnormal Lab Results - Last 24 Hours (Table) 04/22/24 Range/Units 03:14 Sodium 129 L (135-145) mmol/L Microbiology - Last 24 Hours (Table) 04/20/24 17:30 Urine Culture - Preliminary Urine,Voided Group D Enterococcus Gram Neg Bacilli Assessment and Plan Assessment: 1. Hyponatremia with underlying liver cirrhosis. Currently hypervolemic and responded well to 3% saline. Lasix discontinued due to hypotension and significant drop in sodium with Lasix on multiple occasions. We're limited with choices for treatment of hyponatremia given the underlying's liver cirrhosis and contraindication to use of Samsca. Patient has developed significant volume ov erload with previous use of sodium chloride tabs, therefore this will be avoided. Patient is started on demeclocycline. 2. Alcohol-induced liver cirrhosis 3. Volume overload 4. Status post recent cholecystectomy 5. Cellulitis left lower leg 6. Metabolic acidosis maintained on oral sodium bicarb 7. Elevated creatinine due to recent initiation of Bactrim , now discontinued and serum creatinine is trending down. Plan: Continue with demeclocycline continue off of Bactrim Antibiotics as per ID Continue with midodrine Continue sodium bicarb for metabolic acidosis Avoid sodium chloride tabs due to hypervolemia Samsca not an ideal option due to underlying liver cirrhosis
[2024-04-23 05:03] LABS: African American GFR (CKD) 89 (>60 ml/min/1.73 sqM); Anion Gap 6 mmol/L; Blood Urea Nitrogen 21 mg/dL (7-17); Calcium 7.9 mg/dL (8.4-10.2); Carbon Dioxide 15 mmol/L (22-30); Chloride 104 mmol/L (98-107); Glucose 94 mg/dL (74-99); Non-African American GFR(CKD) 78 (>60 ml/min/1.73 sqM); Potassium 3.8 mmol/L (3.5-5.1); Sodium 125 mmol/L (137-145)
--- NOTE | 2024-04-23 06:43 | P.PN ---
Subjective Progress Note Date: 04/23/24 Principal diagnosis: Hyponatremia. This is a 44-year-old female with known history of cirrhosis of the liver, patient quit drinking alcohol in the last 6 months. Patient does have history of chronic fluid retention and ascites related to her chronic liver disease, and she has history of chronic hyponatremia. Her sodium has always been in the range of 1 20-1 26 at best over the last few months. And the patient had multiple admissions with hyponatremia. Apparently the patient came to the hospital yesterday because outpatient blood test showed a sodium of 114. Patient had no major symptoms except for generalized weakness no symptoms of seizures or seizures activity. Patient was seen in the ER, and the recommendation was to start the patient on 3% saline and admit the patient to the ICU for 3% saline infusion. She did receive 3% saline, and her sodium this morning is 119. Her mental status seems to be very appropriate. Patient is hemodynamically stable, she is on diuretics at home in the form of Aldactone. Patient had no previous history of malignancy. And in the past her low sodium has been diagnosed to be related to her liver disease and possibly underlying SIADH. Patient was recently in the hospital for cholecystectomy this was done by Dr. José Miguel wynn, and she continues to have some persistent oozing and drainage from her abdominal wall at the site of her SALVADOR drain. Patient denies any shortness of breath no cough no wheezing no chest pain. CBC is relatively normal basic metabolic profile showed a sodium of 119 bicarb is 13 patient received sodium bicarb as ordered by nephrology her BUN is 26 creatinine 1.06. Liver enzymes noted her ammonia level is 39 Progress note dated April 18, 2024. 44-year-old female seen yesterday in consultation. She has a history of cirrhosis, chronic alcohol abuse, and a recent admission to the hospital, at which time, she was being treated for hyponatremia. The patient was readmitted to the hospital, with hyponatremia, on April 16, with a sodium of 114. Today, her sodium is 123. She is currently on 2 L of oxygen. The patient is receiving norepinephrine at 0.02 mcg/kg/min. She is also getting saline at 20 cc an hour. On her previous admission, the patient had refractory hyponatremia, despite aggressive treatment with 3% saline, and other medications. Current laboratory data includes a white count 7.2, hemoglobin 8.7, hematocrit 26.7, and platelet count of 131,000. Sodium 123, potassium 3.9, chlorides 97, CO2 18, BUN 27, and creatinine 1.09. Progress note dated April 19, 2024. 44-year-old female seen again in room 262. Her current sodium is 126. For a brief period of time, she was back on 3% saline. Currently, she is on room air. She is not receiving any IV fluids. Clinically, she has been very stable, and she has had an uneventful night. White count 6.5, hemoglobin 8.5, hematocrit 26.5, and platelet count of 125,000. Sodium 126, potassium 3.7, chlorides 100, CO2 19, BUN 28, creatinine 1.16. Albumin is 2.1. Progress note dated April 20, 2024. 44-year-old female seen in room 262. She is on room air. She is not receiving any IV fluids. Today sodium is 125. She is asymptomatic. White count is 9.1, hemoglobin 8.4, hematocrit 27.4, with a platelet count of 122,000. Sodium 125, potassium 3.9, chlorides 101, CO2 17, BUN 27, and creatinine 1.20. Glucose is 120. Calcium is 7.8. Albumin is 2. Progress note dated April 21, 2024. The patient is seen today in room 519. The patient is on room air. She is not receiving any IV fluids. Room air saturation is 97%. Her sodium this morning was 124. She was admitted with a diagnosis of hyponatremia. She has been in and out of the intensive care unit, for hypotension, and hyponatremia. Labs today include a white count of 8, hemoglobin 8.1, hematocrit 25, platelet count 118,000. Sodium 124, potassium 3.6, chlorides 100, CO2 20, BUN 22, creatinine 1.13. The patient continues on Ancef, as per infectious diseases. Progress note dated April 22, 2024. 44-year-old female seen today in room 519. The patient is on room air. No IV fluids. Yesterday sodium was 124. No sodium yet back on the chart today. The patient has no new complaints. He was admitted primarily for hyponatremia. Urine culture showed evidence of group D Enterococcus, and gram-negative bacilli. She continues on vancomycin as per infectious diseases. Progress note dated April 23, 2024. 44-year-old female seen in room 519. The patient is currently on room air. The patient is not receiving any IV fluids. The patient continues on cefepime and vancomycin. Her room air saturation is 94%. Today's sodium is 125. Yesterday sodium was 129. Sodium 125, potassium 3.8, chlorides 104, CO2 15, anion gap 6, BUN 21, creatinine 0.91. Calcium is 7.9. Urine is positive for group D Enterococcus. Objective - Vital Signs Vital signs: Vital Signs Temp 98.6 F 04/23/24 01:50 Pulse 101 H 04/23/24 01:50 Resp 16 04/23/24 01:50 BP 84/55 04/23/24 01:50 Pulse Ox 94 L 04/23/24 01:50 FiO2 Intake & Output 04/22/24 04/22/24 04/23/24 06:59 18:59 06:59 Intake Total 230 2070 360 Output Total 100 30 Balance 130 2040 360 Intake: Intake, IV Titration 1300 Amount Cefepime 2 gm In Sodium 200 Chloride 0.9% 100 ml @ 25 mls/hr IVPB Q8HR [facility] Rx# :[id number] Sodium Ferric Gluconat- 100 Sucrose 125 mg In Sodium Chloride 0.9% 100 ml @ 100 mls/hr IVPB DAILY [facility] Rx#:[id number] Vancomycin 1,750 mg In 1000 Sodium Chloride 0.9% 500 ml 500 ml @ 167 mls/hr IVPB Q16H [facility] Rx#: [id number] Oral 230 770 360 Output: Drainage 100 30 Right Lower Abdomen 100 30 Other: Voiding Method Toilet # Voids 3 3 - Exam No acute distress, oriented 3. Respiratory distress. Currently on room air. HEENT examination is grossly unremarkable. Mucous membranes are moist. No oral lesions. Neck supple. Full range of motion. No adenopathy thyromegaly or neck vein distention. Cardiovascular examination reveals regular rhythm rate. S1-S2 normal. No S3 or S4. No discernible murmur noted. Lungs reveal clear breath sounds. Breath sounds are equal bilaterally. No adventitious lung sounds including wheezes rhonchi or crackles. Abdomen soft bowel sounds are heard. No masses or tenderness. Extremities are intact. No cyanosis clubbing or edema. Skin is without rash or lesion. Neurologic examination is brief but nonfocal. - Labs CBC & Chem 7: 04/21/24 03:00 04/23/24 03:16 Labs: Abnormal Lab Results - Last 24 Hours (Table) 04/22/24 04/23/24 Range/Units 03:14 03:16 Sodium 129 L 125 L (135-145) mmol/L Carbon Dioxide 15 L (22-30) mmol/L BUN 21 H (7-17) mg/dL Calcium 7.9 L (8.4-10.2) mg/dL Microbiology - Last 24 Hours (Table) 04/20/24 17:30 Urine Culture - Preliminary Urine,Voided Group D Enterococcus Gram Neg Bacilli Assessment and Plan Assessment: Hypervolemic hyponatremia, improved. History of liver cirrhosis, secondary to chronic alcohol abuse. Group D enterococcal urinary tract infection. History of chronic anemia. Ascites. History of recent cholecystectomy. History of GI bleed, February 19, 2024, requiring EGD. History of esophageal varices. History of COPD. History of bipolar disorder. History of chronic thrombocytopenia. Plan: Plan dated April 18, 2024. The patient is seen in the intensive care unit, room 262. She came in with an admission sodium of 114. Today sodium is 123. She was on 3% saline. That has been discontinued. The patient is getting saline at 20 cc an hour. She is on nasal O2 at 2 L. She continues on norepinephrine at 0.02 mcg/kg/min. Not sure why the patient is hypotensive, but, I have asked for a urinalysis. The patient is having lower abdominal pain. Labs, x-rays, and medications are reviewed. Will continue to follow the patient, and make recommendations. Prognosis is guarded. Sodium is much improved. Plan dated April 19, 2024. The patient is seen today in room 262. She is not receiving any fluids. She is on room air. Her sodium this morning was 126. Apparently, she was on 3% saline, for a brief period of time. We will continue to follow, while she is in the intensive care unit. No additional recommendations are made. Labs, x-rays, and all medications have been reviewed. Plan dated April 20, 2024. The patient is stable. Today's sodium is 125. A repeat sodium is pending. The patient is on room air. The patient is not receiving any IV fluids. Her blood pressure stable. Even when her blood pressure is a bit low, she is lucid and oriented. In my opinion, the patient could be transferred out of the intensive care unit. No additional recommendations are made. Plan dated April 21, 2024. The patient was transferred out of the intensive care unit yesterday. She is seen on the general medical floor. She continues on room air. She is not receiving any IV fluids. She continues on Ancef as per infectious diseases. The patient's sodium this morning was 124. Her room air saturations are 97%. Plan dated April 22, 2024. The patient appears to be doing relatively well. The patient continues on vancomycin for her urinary tract infection caused by group D Enterococcus. The patient is on room air. No IV fluids. No sodium yet back on the chart from today. Her last sodium done yesterday, was 124. Labs, x-rays, and medications are reviewed. Prognosis is guarded. Plan dated April 23, 2024. The patient appears to be relatively stable. She is on room air. Saturations are 94%. She is not receiving any IV fluids. Today sodium is 125. She continues on vancomycin and cefepime. Urine from April 20 was positive for group D Enterococcus and gram-negative bacilli. We will continue to follow. Prognosis is guarded. Time with Patient: Less than 30
--- NOTE | 2024-04-23 12:34 | PN ---
PROGRESS NOTE 44-year-old white female with cirrhosis, hyponatremia, UTI. Hemoglobin is 8.1. Sodium is 125 today, it was 129 yesterday. O2 at 95 on room air. Blood pressure 102/67, temp 98.2, pulse 101. Wait for GI consult for cirrhosis. Treat UTI with medications for Enterobacter, waiting for sensitivities come back sodium to 129. Maintain antibiotics for left leg cellulitis, UTI. Temp 98.1, pulse 92, respiratory rate 16, blood pressure 103/53, O2 of 94. Hyponatremia with cirrhosis. 3% saline helped increasing it for treatment hyponatremia and cirrhosis. Cannot use Samsca seems to be helping somewhat. Alcohol induced liver cirrhosis, volume overload. Recent cholecystectomy. Cellulitis of left lower leg, metabolic acidosis, elevated creatinine. Continue with IV antibiotics per Dr. Kaba currently. Continue with midodrine, sodium bicarb. Once the infection cleared up with the urine infection, possibly we can treat the leg infection we can possibly send her home if she is stable with current medicines with the sodium. Try to get a consult with GI prior to going home if we can. PROGNOSIS: Guarded. MMODL / IJN: [id number] /
--- NOTE | 2024-04-23 14:28 | P.PN ---
Subjective Progress Note Date: 04/23/24 Patient is seen for follow-up for hyponatremia. We are limited with options for treatment of hyponatremia given the underlying liver cirrhosis and volume overload. Therefore patient is not maintained on sod ium chloride tabs. Patient has been very sensitive to Lasix with significant hypotension noted with IV Lasix during her last admission as well. Currently maintained on midodrine and off of levo fed. Samsca is also not in ideal option given underlying liver cirrhosis. Status post 3% saline and serum sodium has increased to 125-127. Off of Lasix as patient has developed significant hypotension and hyponatremia with Lasix. Currently maintained on demeclocycline awake, comfortable, no acute distress. 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 grossly intact Objective - Vital Signs Vital signs: Vital Signs Temp 98.2 F 04/23/24 07:18 Pulse 103 H 04/23/24 08:09 Resp 18 04/23/24 07:18 BP 102/67 04/23/24 07:18 Pulse Ox 95 04/23/24 07:51 FiO2 Intake & Output 04/22/24 04/23/24 04/23/24 18:59 06:59 18:59 Intake Total 2070 360 640 Output Total 30 Balance 2040 360 640 Intake: Intake, IV Titration 1300 Amount Cefepime 2 gm In Sodium 200 Chloride 0.9% 100 ml @ 25 mls/hr IVPB Q8HR [facility] Rx# :[id number] Sodium Ferric Gluconat- 100 Sucrose 125 mg In Sodium Chloride 0.9% 100 ml @ 100 mls/hr IVPB DAILY [facility] Rx#:[id number] Vancomycin 1,750 mg In 1000 Sodium Chloride 0.9% 500 ml 500 ml @ 167 mls/hr IVPB Q16H [facility] Rx#: [id number] Oral 770 360 640 Output: Drainage 30 Right Lower Abdomen 30 Other: Voiding Method Toilet # Voids 3 - Labs CBC & Chem 7: 04/21/24 03:00 04/23/24 03:16 Labs: Abnormal Lab Results - Last 24 Hours (Table) 04/22/24 04/23/24 Range/Units 03:14 03:16 Sodium 129 L 125 L (135-145) mmol/L Carbon Dioxide 15 L (22-30) mmol/L BUN 21 H (7-17) mg/dL Calcium 7.9 L (8.4-10.2) mg/dL Microbiology - Last 24 Hours (Table) 04/20/24 17:30 Urine Culture - Preliminary Urine,Voided Group D Enterococcus Gram Neg Bacilli Assessment and Plan Assessment: 1. Hyponatremia with underlying liver cirrhosis. Currently hypervolemic and responded well to 3% saline. Lasix discontinued due to hypotension and significant drop in sodium with Lasix on multiple occasions. We're limited with choices for treatment of hyponatremia given the underlying's liver cirrhosis and contraindication to use of Samsca. Patient has developed significant volume overload with previous use of sodium chloride tabs, therefore this will be avoided. Patient is started on demeclocycline. 2. Alcohol-induced liver cirrhosis 3. Volume overload 4. Status post recent cholecystectomy 5. Cellulitis left lower leg 6. Metabolic acidosis maintained on oral sodium bicarb 7. Elevated creatinine due to recent initiation of Bactrim , now discontinued and serum creatinine is trending down. Plan: Continue with demeclocycline continue off of Bactrim Antibiotics as per ID Continue with midodrine Continue sodium bicarb for metabolic acidosis Avoid sodium chloride tabs due to hypervolemia Samsca not an ideal option due to underlying liver cirrhosis Sodium is relatively stable, will continue current therapy.
[2024-04-23] MEDS: ALBUMIN HUMAN 25% 50 ML in EMPTY BAG 1 BAG IVPB SCH (15:14)
--- NOTE | 2024-04-23 16:08 | P.PN ---
Subjective Progress Note Date: 04/23/24 Principal diagnosis: Reason for follow-up is left leg cellulitis and possible UTI Patient is a 44-year-old female with a past medical history significant for cirrhosis of the liver bipolar disorder reflux recent admission to the hospital for cholecystitis status post cholecystectomy in this patient presenting to the hospital for hyponatremia also noticed to have increasing swelling redness of the left leg concerning for cellulitis prompting this consultation. On today's evaluation that is 04/23/2024, Patient is afebrile patient is currently on room air and denies having any shortness of breath, the patient denies any chest pain did have some dry cough, the patient denies any nausea vomiting did not have any abdominal pain and no diarrhea still complaining of s ome swelling and redness to the left leg. The patient have creatinine 0.91 urine is growing group D Enterococcus and gram- negative bacilli Objective - Vital Signs Vital signs: Vital Signs Temp 98.2 F 04/23/24 13:15 Pulse 105 H 04/23/24 13:15 Resp 20 04/23/24 13:15 BP 97/60 04/23/24 13:15 Pulse Ox 96 04/23/24 13:15 FiO2 Intake & Output 04/22/24 04/23/24 04/23/24 18:59 06:59 18:59 Intake Total 2070 360 880 Output Total 30 Balance 2040 360 880 Intake: Intake, IV Titration 1300 Amount Cefepime 2 gm In Sodium 200 Chloride 0.9% 100 ml @ 25 mls/hr IVPB Q8HR [facility] Rx# :[id number] Sodium Ferric Gluconat- 100 Sucrose 125 mg In Sodium Chloride 0.9% 100 ml @ 100 mls/hr IVPB DAILY [facility] Rx#:[id number] Vancomycin 1,750 mg In 1000 Sodium Chloride 0.9% 500 ml 500 ml @ 167 mls/hr IVPB Q16H [facility] Rx#: [id number] Oral 770 360 880 Output: Drainage 30 Right Lower Abdomen 30 Other: Voiding Method Toilet # Voids 3 - Exam GENERAL DESCRIPTION: Middle-age female lying in bed in no distress RESPIRATORY SYSTEM: Unlabored breathing , decreased breath sounds at bases HEART: S1 S2 regular rate and rhythm , ABDOMEN: Soft , no tenderness EXTREMITIES: Left leg swelling redness slightly decreased - Labs CBC & Chem 7: 04/21/24 03:00 04/23/24 03:16 Labs: Abnormal Lab Results - Last 24 Hours (Table) 04/23/24 Range/Units 03:16 Sodium 125 L (137-145) mmol/L Carbon Dioxide 15 L (22-30) mmol/L BUN 21 H (7-17) mg/dL Calcium 7.9 L (8.4-10.2) mg/dL Microbiology - Last 24 Hours (Table) 04/20/24 17:30 Urine Culture - Preliminary Urine,Voided Group D Enterococcus Gram Neg Bacilli Assessment and Plan (1) Left leg cellulitis Current Visit: Yes Status: Acute Code(s): L03.116 - CELLULITIS OF LEFT LOWER LIMB SNOMED Code(s): 61129944186745996 (2) Penicillin allergy Current Visit: No Status: Acute Code(s): Z88.0 - ALLERGY STATUS TO PENI CILLIN SNOMED Code(s): 34711692 (3) UTI (urinary tract infection) due to Enterococcus Current Visit: Yes Status: Acute Code(s): N39.0 - URINARY TRACT INFECTION, SITE NOT SPECIFIED; B95.2 - ENTEROCOCCUS THE CAUSE OF DISEASES CLASSIFIED ELSEWHERE SNOMED Code(s): 587934626819511 Plan: 1patient with initial admission to the hospital with hyponatremia in this patient noticed to have diffuse swelling redness of left lower extremity concerning for cellulitis likely from gram-positive skin lawrence such as strep. 2patient with a penicillin allergy that will limit the number of antibiotics safe to use. 3 patient to continue with Theo wrap to both the leg to get some of the swelling down and marked the area of the redness 4patient urine is now growing group B Enterococcus and gram-negative and the patient is symptomatic complaining of suprapubic pain and burning of urine 5-patient is currently covered with vancomycin and cefepime while waiting for the culture to finalize Dictation was produced using [employer] software. please excuse any grammatical, word or spelling errors.
--- NOTE | 2024-04-23 17:47 | P.GSCN ---
History of Present Illness Consult date: 04/23/24 History of present illness: Patient seen and evaluated. No signs of infection along sutures. Patient to be seen by Dr. Montano once he arrives. No acute surgical invention needed at this time. Past Medical History Past Medical History: GERD/Reflux, Liver Disease Additional Past Medical History / Comment(s): retains fluid,anemia,cirrohis of liver non alcoholic, occ bloody stool, ulcer, bipolar, low sodium levels History of Any Multi-Drug Resistant Organisms: None Reported Past Surgical History: Cholecystectomy, EPS Additional Past Surgical History / Comment(s): has had 4 scopes, paracentesis unable to get any fluid out at the time., paracentesis Past Anesthesia/Blood Transfusion Reactions: No Reported Reaction Additional Past Anesthesia/Blood Transfusion Reaction / Comm: 3 units of blood transfused in around february 03. Past Psychological History: Anxiety, Bipolar Smoking Status: Current some day smoker Past Alcohol Use History: Abuse Additional Past Alcohol Use History / Comment(s): 1 pk/every 2 days/ 20yrs, did not drink for 10months and then started drinking again states "I stopped again a week ago." Past Drug Use History: None Reported Medications and Allergies Home Medications Medication Instructions Recorded Confirmed Type Cariprazine HCl [Vraylar] 3 mg PO HS 03/20/23 04/16/24 History Pantoprazole [Protonix] 40 mg PO DAILY 03/20/23 04/16/24 History QUEtiapine [SEROquel] 100 tab PO HS 03/20/23 04/16/24 History Spironolactone 100 mg PO DAILY 03/20/23 04/16/24 History Budesonide-Formot 160-4.5 Mcg 2 puff INHALATION RT-BID 30 Days 02/24/24 04/16/24 Rx [Symbicort 160-4.5 Mcg Inhaler] #1 each Dapagliflozin Propanediol [Farxiga] 5 mg PO DAILY 90 Days #90 tab 04/08/24 04/16/24 Rx Sodium Bicarbonate Tab 650 mg PO DAILY 90 Days #90 tab 04/08/24 04/16/24 Rx Gabapentin [Neurontin] 300 mg PO TID 04/16/24 04/16/24 History Ipratropium-Albuterol Nebulize 3 ml INHALATION RT-TID 04/16/24 04/16/24 History [Duoneb 0.5 mg-3 mg/3 ml Soln] Midodrine [ProAmatine] 5 mg PO TID 04/16/24 04/16/24 History Tiotropium 2.5 Mcg/Puff [Spiriva 1 puff INHALATION RT-DAILY 04/16/24 04/16/24 History Respimat 2.5 Mcg] Allergies Allergy/AdvReac Type Severity Reaction Status Date / Time Penicillins Allergy Anaphylaxis Verified 04/16/24 12:57 Surgical - Exam Vital Signs Temp Pulse Resp BP Pulse Ox 98 F 107 H 20 89/56 97 04/16/24 11:48 04/16/24 11:48 04/16/24 11:48 04/16/24 11:48 04/16/24 11:48 Results - Labs 04/21/24 03:00 04/23/24 03:16 Abnormal Lab Results - Last 24 Hours (Table) 04/23/24 Range/Units 03:16 Sodium 125 L (137-145) mmol/L Carbon Dioxide 15 L (22-30) mmol/L BUN 21 H (7-17) mg/dL Calcium 7.9 L (8.4-10.2) mg/dL Microbiology - Last 24 Hours (Table) 04/20/24 17:30 Urine Culture - Preliminary Urine,Voided Group D Enterococcus Gram Neg Bacilli Diabetes panel 04/23/24 Range/Units 03:16 Sodium 125 L (137-145) mmol/L Potassium 3.8 (3.5-5.1) mmol/L Chloride 104 (98-107) mmol/L Carbon Dioxide 15 L (22-30) mmol/L BUN 21 H (7-17) mg/dL Creatinine 0.91 (0.52-1.04) mg/dL Glucose 94 (74-99) mg/dL Calcium 7.9 L (8.4-10.2) mg/dL Calcium panel 04/23/24 Range/Units 03:16 Calcium 7.9 L (8.4-10.2) mg/dL Pituitary panel 04/23/24 Range/Units 03:16 Sodium 125 L (137-145) mmol/L Potassium 3.8 (3.5-5.1) mmol/L Chloride 104 (98-107) mmol/L Carbon Dioxide 15 L (22-30) mmol/L BUN 21 H (7-17) mg/dL Creatinine 0.91 (0.52-1.04) mg/dL Glucose 94 (74-99) mg/dL Calcium 7.9 L (8.4-10.2) mg/dL Adrenal panel 04/23/24 Range/Units 03:16 Sodium 125 L (137-145) mmol/L Potassium 3.8 (3.5-5.1) mmol/L Chloride 104 (98-107) mmol/L Carbon Dioxide 15 L (22-30) mmol/L BUN 21 H (7-17) mg/dL Creatinine 0.91 (0.52-1.04) mg/dL Glucose 94 (74-99) mg/dL Calcium 7.9 L (8.4-10.2) mg/dL
[2024-04-23] MEDS: VANCOMYCIN TROUGH DUE 1 EACH MISC MISCELLANE ONE (23:44)
[2024-04-24 04:37] LABS: ALT 16 U/L (4-34); AST 35 U/L (14-36); African American GFR (CKD) 75 (>60 ml/min/1.73 sqM); Albumin 2.3 g/dL (3.5-5.0); Albumin/Globulin Ratio 1.1; Alkaline Phosphatase 121 U/L (38-126); Anion Gap 5 mmol/L; Blood Urea Nitrogen 19 mg/dL (7-17); Calcium 8.1 mg/dL (8.4-10.2); Carbon Dioxide 18 mmol/L (22-30); Chloride 104 mmol/L (98-107); Globulin 2.1 g/dL; Glucose 93 mg/dL (74-99); Non-African American GFR(CKD) 65 (>60 ml/min/1.73 sqM); Potassium 3.7 mmol/L (3.5-5.1); Sodium 127 mmol/L (137-145); Total Bilirubin 0.7 mg/dL (0.2-1.3); Total Protein 4.4 g/dL (6.3-8.2)
[2024-04-24 09:57] LABS: Basophils # (A) 0.04 X 10*3/uL (0.00-0.10); Basophils % (A) 0.6 %; Eosinophils # (A) 0.28 X 10*3/uL (0.04-0.35); Eosinophils % (A) 4.5 %; HCT 24.3 % (37.2-46.3); HGB 7.6 g/dL (12.0-15.0); Lymphocytes # (A) 1.05 X 10*3/uL (0.90-5.00); MCH 31.5 pg (27.0-32.0); MCHC 31.3 g/dL (32.0-37.0); MCV 100.8 FL (80.0-97.0); Mean Platelet Volume 11.5 FL (9.5-12.2); Monocytes % (A) 11.3 %; NRBC Per 100 WBC 0 X 10*3/uL (0.00-0.01); Neutrophils # (A) 4.04 X 10*3/uL (1.80-7.70); Neutrophils % (A) 65.5 %; Platelet Count 102 X 10*3/uL (140-440); RBC 2.41 X 10*6/uL (4.10-5.20); RDW 20.4 % (11.5-14.5); WBC 6.18 X 10*3/uL (4.50-10.00)
--- NOTE | 2024-04-24 12:22 | P.PN ---
Subjective Progress Note Date: 04/24/24 Patient is seen for follow-up for hyponatremia. No acute events over night. We are limited with options for treatment of hyponatremia given the underlying liver cirrhosis and volume overload. Therefore patient is not maintained on sodium chloride tabs. Patient has been very sensitive to Lasix with significant hypotension noted with IV Lasix during her last admission as well. Currently maintained on midodrine. Samsca is also not in ideal option given underlying liver cirrhosis. Status post 3% saline and serum sodium has increased to 125-127. Off of Lasix as patient has developed significant hypotension and hyponatremia with Lasix. Currently maintained on demeclocycline awake, comfortable, no acute distress. 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 Objective - Vital Signs Vital signs: Vital Signs Temp 98.0 F 04/24/24 07:34 Pulse 90 04/24/24 08:06 Resp 15 04/24/24 07:34 BP 91/58 04/24/24 07:34 Pulse Ox 96 04/24/24 07:51 FiO2 Intake & Output 04/23/24 04/24/24 04/24/24 18:59 06:59 18:59 Intake Total 600 310 200 Output Total 50 50 Balance 550 260 200 Intake: Oral 600 310 200 Output: Drainage 50 50 Right Lower Abdomen 50 50 Other: Voiding Method Toilet # Voids 10 3 # Bowel Movements 0 - Labs CBC & Chem 7: 04/24/24 03:36 04/24/24 03:36 Labs: Abnormal Lab Results - Last 24 Hours (Table) 04/24/24 04/24/24 Range/Units 03:36 03:36 RBC 2.41 L (4.10-5.20) X 10*6/uL Hgb 7.6 L (12.0-15.0) g/dL Hct 24.3 L (37.2-46.3) % MCV 100.8 H (80.0-97.0) FL MCHC 31.3 L (32.0-37.0) g/dL RDW 20.4 H (11.5-14.5) % Plt Count 102 L (140-440) X 10*3/uL Immature Gran # 0.07 H (0.00-0.04) X 10*3/uL Sodium 127 L (137-145) mmol/L Carbon Dioxide 18 L (22-30) mmol/L BUN 19 H (7-17) mg/dL Creatinine 1.05 H (0.52-1.04) mg/dL Calcium 8.1 L (8.4-10.2) mg/dL Total Protein 4.4 L (6.3-8.2) g/dL Albumin 2.3 L (3.5-5.0) g/dL Assessment and Plan Assessment: 1. Hyponatremia with underlying liver cirrhosis. Currently hypervolemic and responded well to 3% saline. Lasix discontinued due to hypotension and significant drop in sodium with Lasix on multiple occasions. We're limited with choices for treatment of hyponatremia given the underlying's liver cirrhosis and contraindication to use of Samsca. Patient has developed significant volume overload with previous use of sodium chloride tabs, therefore this will be avoided. Patient is started on demeclocycline. 2. Alcohol-induced liver cirrhosis 3. Volume overload 4. Status post recent cholecystectomy 5. Cellulitis left lower leg 6. Metabolic acidosis maintained on oral sodium bicarb 7. Elevated creatinine due to recent initiation of Bactrim , now discontinued and serum creatinine improved. Plan: Continue with demeclocycline continue off of Bactrim Antibiotics as per ID Continue with midodrine Continue sodium bicarb for metabolic acidosis Avoid sodium chloride tabs due to hypervolemia Samsca not an ideal option due to underlying liver cirrhosis Sodium is relatively stable, will continue current therapy.
--- NOTE | 2024-04-24 15:37 | P.PN ---
Subjective Progress Note Date: 04/24/24 Patient seen and evaluated. She reports increased fullness of the abdomen with pain cramping along the left upper quadrant. Ultrasound on admission was negative for ascites. May repeat ultrasound for new ascites due to fluid restriction however increased fullness of the abdomen for ascites. Objective - Vital Signs Vital signs: Vital Signs Temp 97.6 F 04/24/24 13:00 Pulse 100 04/24/24 13:00 Resp 16 04/24/24 13:00 BP 96/61 04/24/24 13:00 Pulse Ox 96 04/24/24 13:00 FiO2 Intake & Output 04/23/24 04/24/24 04/24/24 18:59 06:59 18:59 Intake Total 600 310 530 Output Total 50 50 Balance 550 260 530 Intake: Oral 600 310 530 Output: Drainage 50 50 Right Lower Abdomen 50 50 Other: Voiding Method Toilet Toilet # Voids 10 3 # Bowel Movements 0 - Labs CBC & Chem 7: 04/24/24 03:36 04/24/24 03:36 Labs: Abnormal Lab Results - Last 24 Hours (Table) 04/24/24 04/24/24 Range/Units 03:36 03:36 RBC 2.41 L (4.10-5.20) X 10*6/uL Hgb 7.6 L (12.0-15.0) g/dL Hct 24.3 L (37.2-46.3) % MCV 100.8 H (80.0-97.0) FL MCHC 31.3 L (32.0-37.0) g/dL RDW 20.4 H (11.5-14.5) % Plt Count 102 L (140-440) X 10*3/uL Immature Gran # 0.07 H (0.00-0.04) X 10*3/uL Sodium 127 L (137-145) mmol/L Carbon Dioxide 18 L (22-30) mmol/L BUN 19 H (7-17) mg/dL Creatinine 1.05 H (0.52-1.04) mg/dL Calcium 8.1 L (8.4-10.2) mg/dL Total Protein 4.4 L (6.3-8.2) g/dL Albumin 2.3 L (3.5-5.0) g/dL
--- NOTE | 2024-04-24 16:33 | P.PN ---
Subjective Progress Note Date: 04/24/24 Principal diagnosis: Reason for follow-up is left leg cellulitis and possible UTI Patient is a 44-year-old female with a past medical history significant for cirrhosis of the liver bipolar disorder reflux recent admission to the hospital for cholecystitis status post cholecystectomy in this patient presenting to the hospital for hyponatremia also noticed to have increasing swelling redness of the left leg concerning for cellulitis prompting this consultation. On today's evaluation that is 04/24/2024, patient has been afebrile, patient is currently on room air, patient denies having any significant cough no chest pain no complaining of some shortness of breath, patient denies nausea vomiting or diarrhea and no abdominal pain patient also complaining of pain and swelling to the left upper extremity site of the previous IV. The patient white count 6.18, creatinine 1.05 urine showing group B Enterococcus and gram-negative with ID sensitivities pending Objective - Vital Signs Vital signs: Vital Signs Temp 97.6 F 04/24/24 13:00 Pulse 100 04/24/24 13:00 Resp 16 04/24/24 13:00 BP 96/61 04/24/24 13:00 Pulse Ox 96 04/24/24 13:00 FiO2 Intake & Output 04/23/24 04/24/24 04/24/24 18:59 06:59 18:59 Intake Total 600 310 530 Output Total 50 50 Balance 550 260 530 Intake: Oral 600 310 530 Output: Drainage 50 50 Right Lower Abdomen 50 50 Other: Voiding Method Toilet Toilet # Voids 10 3 # Bowel Movements 0 - Exam GENERAL DESCRIPTION: Middle-age female lying in bed in no distress RESPIRATORY SYSTEM: Unlabored breathing , decreased breath sounds at bases HEART: S1 S2 regular rate and rhythm , ABDOMEN: Soft , no tenderness EXTREMITIES: Left leg swelling redness slightly decreased - Labs CBC & Chem 7: 04/24/24 03:36 04/24/24 03:36 Labs: Abnormal Lab Results - Last 24 Hours (Table) 04/24/24 04/24/24 Range/Units 03:36 03:36 RBC 2.41 L (4.10-5.20) X 10*6/uL Hgb 7.6 L (12.0-15.0) g/dL Hct 24.3 L (37.2-46.3) % MCV 100.8 H (80.0-97.0) FL MCHC 31.3 L (32.0-37.0) g/dL RDW 20.4 H (11.5-14.5) % Plt Count 102 L (140-440) X 10*3/uL Immature Gran # 0.07 H (0.00-0.04) X 10*3/uL Sodium 127 L (137-145) mmol/L Carbon Dioxide 18 L (22-30) mmol/L BUN 19 H (7-17) mg/dL Creatinine 1.05 H (0.52-1.04) mg/dL Calcium 8.1 L (8.4-10.2) mg/dL Total Protein 4.4 L (6.3-8.2) g/dL Albumin 2.3 L (3.5-5.0) g/dL Assessment and Plan (1) Left leg cellulitis Current Visit: Yes Status: Acute Code(s): L03.116 - CELLULITIS OF LEFT LOWER LIMB SNOMED Code(s): 30725474979797515 (2) Penicillin allergy Current Visit: No Status: Acute Code(s): Z88.0 - ALLERGY STATUS TO PENICILLIN SNOMED Code(s): 96865758 (3) UTI (urinary tract infection) due to Enterococcus Current Visit: Yes Status: Acute Code(s): N39.0 - URINARY TRACT INFECTION, SITE NOT SPECIFIED; B95.2 - ENTEROCOCCUS THE CAUSE OF DISEASES CLASSIFIED ELSEWHERE SNOMED Code(s): 305657640875038 Plan: 1patient with initial admission to the hospital with hyponatremia in this patient noticed to have diffuse swelling redness of left lower extremity con cerning for cellulitis likely from gram-positive skin lawrence such as strep. 2patient with a penicillin allergy that will limit the number of antibiotics safe to use. 3 patient to continue with Theo wrap to both the leg to get some of the swelling down and marked the area of the redness 4patient urine is now growing group B Enterococcus and gram-negative with ID sensitivity on the gram-negative still pending 5-patient is currently covered with vancomycin and cefepime while waiting for the culture to finalize. 4 6patient has developed phlebitis of the left upper extremity likely from the IV advise cord compression Dictation was produced using [employer] dictation software. please excuse any gram matical, word or spelling errors. Time with Patient: Less than 30
[2024-04-25 05:36] LABS: African American GFR (CKD) 73 (>60 ml/min/1.73 sqM); Non-African American GFR(CKD) 63 (>60 ml/min/1.73 sqM)
--- NOTE | 2024-04-25 08:27 | P.PN ---
Subjective Patient is seen in follow-up for hyponatremia. Sodium level 127 yesterday. Oral intake fair. Complaining of edema. Vital signs are stable. General: No acute distress. HEENT: Head exam is unremarkable. LUNGS: No audible rhonchi or wheezes. HEART: Rate and Rhythm are regular. ABDOMEN: Nontender, distention noted. EXTREMITITES: 2+ edema lower extremities. Objective - Vital Signs Vital signs: Vital Signs Temp 98.1 F 04/25/24 07:04 Pulse 110 H 04/25/24 07:43 Resp 16 04/25/24 07:04 BP 99/62 04/25/24 07:04 Pulse Ox 97 04/25/24 07:34 FiO2 Intake & Output 04/24/24 04/25/24 04/25/24 18:59 06:59 18:59 Intake Total 1010 240 340 Balance 1010 240 340 Intake: Oral 1010 240 340 Other: Voiding Method Toilet Toilet # Voids 3 - Labs CBC & Chem 7: 04/24/24 03:36 04/25/24 03:56 Labs: Abnormal Lab Results - Last 24 Hours (Table) 04/24/24 04/25/24 Range/Units 03:36 03:56 RBC 2.41 L (4.10-5.20) X 10*6/uL Hgb 7.6 L (12.0-15.0) g/dL Hct 24.3 L (37.2-46.3) % MCV 100.8 H (80.0-97.0) FL MCHC 31.3 L (32.0-37.0) g/dL RDW 20.4 H (11.5-14.5) % Plt Count 102 L (140-440) X 10*3/uL Immature Gran # 0.07 H (0.00-0.04) X 10*3/uL Creatinine 1.08 H (0.52-1.04) mg/dL Microbiology - Last 24 Hours (Table) 04/20/24 17:30 Urine Culture - Preliminary Urine,Voided Group D Enterococcus Escherichia coli Assessment and Plan Plan: Assessment: 1. Hyponatremia. Hypervolemic. TSH normal. Cosyntropin stimulation test done April 03, 2024 negative. Urine sodium less than 20 and urine osmolality 549. Did receive 3% this admission. On demeclocycline. 2. Alcohol induced liver cirrhosis. 3. Volume overload. 4. Anemia. Iron deficiency noted. Status post IV iron. 5. Metabolic acidosis maintained on oral bicarb. 6. Lower extremity cellulitis and UTI with urine culture positive for group D Enterococcus and E. coli on antibiotics. ID following. Plan: Maintain fluid restriction. Increase frequency of midodrine to 4 times daily. Add Aldactone 25 mg twice daily. Lasix 40 mg IV once today. Maintain demeclocycline. Repeat labs in the morning. Avoid sodium chloride tabs due to hypervolemia.
--- NOTE | 2024-04-25 08:46 | PN ---
PROGRESS NOTE Morbid obesity. DICTATION ENDS HERE MMODL / IJN: [id number] /
[2024-04-25] MEDS: SPIRONOLACTONE 25 MG TAB PO SCH (10:07)
[2024-04-25] MEDS: MIDODRINE 5 MG TAB PO SCH (10:07)
[2024-04-25] MEDS: FUROSEMIDE 10 MG/ML 4 ML VIAL IV STA (10:16)
--- NOTE | 2024-04-25 12:40 | P.PN ---
Subjective Progress Note Date: 04/25/24 CHIEF COMPLAINT: Hyponatremia HISTORY OF PRESENT ILLNESS: Surgical service following due to prior history of cholecystectomy on March 21, 2024. Patient continues to have drainage from the old SALVADOR drain site. Drainage is serous and has decreased since prior admission. Medicine service is asking if sutures can be removed from her abdomen. Patient is very fluid overloaded. Edematous in the extremities and abdomen. Afebrile. Mildly tachycardic. Nephrology has ordered a dose of IV Lasix 40 mg and they have added Aldactone 25 twice a day. WBC 6.18 sodium is 127 PHYSICAL EXAM: VITAL SIGNS: Reviewed. GENERAL: no acute distress. ABDOMEN: Distended edematous. Serous drainage from the old SALVADOR drain site on the right. The sutures in the umbilicus intact. No evidence of infection. NEUROLOGIC: Alert and oriented. Cranial nerves II through XII grossly intact. Extremities: Patient has swelling both upper and lower extremities. Evidence of cellulitis on the left tibia and left arm ASSESSMENT: 1. Cholecystitis status post cholecystectomy on March 21, 2024 2. Alcohol liver cirrhosis with abdominal ascites 3. Hyponatremia PLAN: -Hyponatremia and fluid management per nephrology -Further recommendations forthcoming per surgeon regarding removal of his sutures. -No surgical intervention planned -Continue supportive care Physician Barn Manager note has been reviewed by physician. Signing provider agrees with the documented findings, assessment, and plan of care. Objective - Vital Signs Vital signs: Vital Signs Temp 98.1 F 04/25/24 07:04 Pulse 110 H 04/25/24 07:43 Resp 16 04/25/24 07:04 BP 99/62 04/25/24 07:04 Pulse Ox 97 04/25/24 07:34 FiO2 Intake & Output 04/24/24 04/25/24 04/25/24 18:59 06:59 18:59 Intake Total 1010 240 340 Balance 1010 240 340 Intake: Oral 1010 240 340 Other: Voiding Method Toilet Toilet # Voids 3 - Labs CBC & Chem 7: 04/24/24 03:36 04/25/24 03:56 Labs: Abnormal Lab Results - Last 24 Hours (Table) 04/25/24 Range/Units 03:56 Creatinine 1.08 H (0.52-1.04) mg/dL Microbiology - Last 24 Hours (Table) 09/18/24 17:30 Urine Culture - Preliminary Urine,Voided Group D Enterococcus Escherichia coli
--- NOTE | 2024-04-25 18:37 | P.PN ---
Subjective Progress Note Date: 04/25/24 This is a 44-year-old female with known history of cirrhosis of the liver, patient quit drinking alcohol in the last 6 months. Patient does have history of chronic fluid retention and ascites related to her chronic liver disease, and she has history of chronic hyponatremia. Her sodium has always been in the range of 1 20-1 26 at best over the last few months. And the patient had multiple admissions with hyponatremia. Apparently the patient came to the hospital yesterday because outpatient blood test showed a sodium of 114. Patient had no major symptoms except for generalized weakness no symptoms of seizures or seizures activity. Patient was seen in the ER, and the recommendation was to start the patient on 3% saline and admit the patient to the ICU for 3% saline infusion. She did receive 3% saline, and her sodium this morning is 119. Her mental status seems to be very appropriate. Patient is hemodynamically stable, she is on diuretics at home in the form of Aldactone. Patient had no previous history of malignancy. And in the past her low sodium has been diagnosed to be related to her liver disease and possibly underlying SIADH. Patient was recently in the hospital for cholecystectomy this was done by Dr. José Miguel wynn, and she continues to have some persistent oozing and dr brian from her abdominal wall at the site of her SALVADOR drain. Patient denies any shortness of breath no cough no wheezing no chest pain. CBC is relatively normal basic metabolic profile showed a sodium of 119 bicarb is 13 patient received sodium bicarb as ordered by nephrology her BUN is 26 creatinine 1.06. Liver enzymes noted her ammonia level is 39 Progress note dated April 18, 2024. 44-year-old female seen yesterday in consultation. She has a history of cirrhosis, chronic alcohol abuse, and a recent admission to the hospital, at which time, she was being treated for hyponatremia. The patient was readmitted to the hospital, with hyponatremia, on April 16, with a sodium of 114. Today, her sodium is 123. She is currently on 2 L of oxygen. The patient is receiving norepinephrine at 0.02 mcg/kg/min. She is also getting saline at 20 cc an hour. On her previous admission, the patient had refractory hyponatremia, despite aggressive treatment with 3% saline, and other medications. Current laboratory data includes a white count 7.2, hemoglobin 8.7, hematocrit 26.7, and platelet count of 131,000. Sodium 123, potassium 3.9, chlorides 97, CO2 18, BUN 27, and creatinine 1.09. Progress note dated April 19, 2024. 44-year-old female seen again in room 262. Her current sodium is 126. For a brief period of time, she was back on 3% saline. Currently, she is on room air. She is not receiving any IV fluids. Clinically, she has been very stable, and she has had an uneventful night. White count 6.5, hemoglobin 8.5, hematocrit 26.5, and platelet count of 125,000. Sodium 126, potassium 3.7, chlorides 100, CO2 19, BUN 28, creatinine 1.16. Albumin is 2.1. Progress note dated April 20, 2024. 44-year-old female seen in room 262. She is on room air. She is not receiving any IV fluids. Today sodium is 125. She is asymptomatic. White count is 9.1, hemoglobin 8.4, hematocrit 27.4, with a platelet count of 122,000. Sodium 125, potassium 3.9, chlorides 101, CO2 17, BUN 27, and creatinine 1.20. Glucose is 120. Calcium is 7.8. Albumin is 2. Progress note dated April 21, 2024. The patient is seen today in room 519. The patient is on room air. She is not receiving any IV fluids. Room air saturation is 97%. Her sodium this morning was 124. She was admitted with a diagnosis of hyponatremia. She has been in and out of the intensive care unit, for hypotension, and hyponatremia. Labs today include a white count of 8, hemoglobin 8.1, hematocrit 25, platelet count 118,000. Sodium 124, potassium 3.6, chlorides 100, CO2 20, BUN 22, creatinine 1.13. The patient continues on Ancef, as per infectious diseases. Progress note dated April 22, 2024. 44-year-old female seen today in room 519. The patient is on room air. No IV fluids. Yesterday sodium was 124. No sodium yet back on the chart today. The patient has no new complaints. He was admitted primarily for hyponatremia. Urine culture showed evidence of group D Enterococcus, and gram-negative bacilli. She continues on vancomycin as per infectious diseases. Progress note dated April 23, 2024. 44-year-old female seen in room 519. The patient is currently on room air. The patient is not receiving any IV fluids. The patient continues on cefepime and vancomycin. Her room air saturation is 94%. Today's sodium is 125. Yesterday sodium was 129. Sodium 125, potassium 3.8, chlorides 104, CO2 15, anion gap 6, BUN 21, creatinine 0.91. Calcium is 7.9. Urine is positive for group D Enterococcus. On 04/25/2024, the patient is being seen for a follow-up. Doing well. Abdomen is distended and the patient has minimal amount of leakage from the previous surgical site from a previous cholecystectomy that was done on 03/21/2024. The leakage is still from the SALVADOR insertion drain site. No nausea. No vomiting. No chest pain or abdominal pain. She is on Aldactone 25 mg p.o. twice daily. She is also on demeclocycline. In terms of antibiotic coverage, she remains on a combination of IV cefepime and vancomycin. The patient had a E. coli/Enterococcus group to urinary tract infection. No altered mentation. Most recent sodium levels at 127 with a BUN of 19 and a creatinine of 1.05. WBC count is at 6.1 with a hemoglobin of 7.6. Objective - Vital Signs Vital signs: Vital Signs Temp 98.1 F 04/25/24 07:04 Pulse 110 H 04/25/24 07:43 Resp 16 04/25/24 07:04 BP 99/62 04/25/24 07:04 Pulse Ox 97 04/25/24 07:34 FiO2 Intake & Output 04/24/24 04/25/24 04/25/24 18:59 06:59 18:59 Intake Total 1010 240 340 Balance 1010 240 340 Intake: Oral 1010 240 340 Other: Voiding Method Toilet Toilet # Voids 3 - Exam No acute distress, oriented 3. Respiratory distress. Currently on room air. HEENT examination is grossly unremarkable. Mucous membranes are moist. No oral lesions. Neck supple. Full range of motion. No adenopathy thyromegaly or neck vein distention. Cardiovascular examination reveals regular rhythm rate. S1-S2 normal. No S3 or S4. No discernible murmur noted. Lungs reveal clear breath sounds. Breath sounds are equal bilaterally. No adventitious lung sounds including wheezes rhonchi or crackles. Abdomen soft bowel sounds are heard. No masses or tenderness. The patient has ascites. The patient has a bag collecting the fluid from the previous SALVADOR insertion site. Output has dropped and the patient is producing approximately 100 to 200 cc on a 24-hour.. Extremities are intact. No cyanosis clubbing or edema. Skin is without rash or lesion. Neurologic examination is brief but nonfocal. - Labs CBC & Chem 7: 04/24/24 03:36 04/25/24 03:56 Labs: Abnormal Lab Results - Last 24 Hours (Table) 04/25/24 Range/Units 03:56 Creatinine 1.08 H (0.52-1.04) mg/dL Microbiology - Last 24 Hours (Table) 04/20/24 17:30 Urine Culture - Preliminary Urine,Voided Group D Enterococcus Escherichia coli Assessment and Plan Plan: Hypervolemic hyponatremia, improved. The sodium level is at 127 and the patient is currently on demeclocycline History of liver cirrhosis, secondary to chronic alcohol abuse. E. coli/group D enterococcal urinary tract infection. History of chronic anemia. Ascites, minimal leak from the previously SALVADOR insertion site History of recent cholecystectomy. History of GI bleed, February 19, 2024, requiring EGD. History of esophageal varices. History of COPD. History of bipolar disorder. History of chronic thrombocytopenia. Plan: Clinically stable Hemodynamically stable Continue demeclocycline Monitor sodium level Continue Aldactone Continue vancomycin and cefepime. General surgery is on the case
[2024-04-26 09:00] LABS: Basophils # (A) 0.05 X 10*3/uL (0.00-0.10); Basophils % (A) 0.9 %; Eosinophils # (A) 0.25 X 10*3/uL (0.04-0.35); Eosinophils % (A) 4.6 %; HGB 8.4 g/dL (12.0-15.0); Lymphocytes # (A) 1.07 X 10*3/uL (0.90-5.00); Lymphocytes % (A) 19.5 %; MCH 31.8 pg (27.0-32.0); MCHC 31.1 g/dL (32.0-37.0); MCV 102.3 FL (80.0-97.0); Mean Platelet Volume 11.3 FL (9.5-12.2); Monocytes # (A) 0.54 X 10*3/uL (0.20-1.00); Monocytes % (A) 9.9 %; NRBC Per 100 WBC 0 X 10*3/uL (0.00-0.01); Neutrophils % (A) 63.8 %; Platelet Count 102 X 10*3/uL (140-440); RBC 2.64 X 10*6/uL (4.10-5.20); RDW 21.3 % (11.5-14.5); WBC 5.48 X 10*3/uL (4.50-10.00)
[2024-04-26 09:12] LABS: ALT 18 U/L (8-44); AST 30 U/L (13-35); Albumin 2.5 g/dL (3.8-4.9); Albumin/Globulin Ratio 1.56 Ratio (1.60-3.17); Alkaline Phosphatase 140 U/L (41-126); BUN/Creat Ratio 15.54 Ratio (12.00-20.00); Blood Urea Nitrogen 20.2 mg/dL (9.0-27.0); Calcium 7.9 mg/dL (8.7-10.3); Carbon Dioxide 18.8 mmol/L (21.6-31.8); Chloride 105 mmol/L (96-109); Globulin 1.6 g/dL (1.6-3.3); Glucose 95 mg/dL (70-110); Magnesium 1.9 mg/dL (1.5-2.4); Potassium 3.6 mmol/L (3.5-5.5); Sodium 131 mmol/L (135-145); Total Bilirubin 0.6 mg/dL (0.3-1.2); Total Protein 4.1 g/dL (6.2-8.2)
--- NOTE | 2024-04-26 11:06 | P.PN ---
Subjective Patient is seen in follow-up for hyponatremia. Sodium level 131 today. Oral intake fair. Vital signs are stable. General: No acute distress. HEENT: Head exam is unremarkable. LUNGS: No audible rhonchi or wheezes. HEART: Rate and Rhythm are regular. ABDOMEN: Nontender, distention noted. EXTREMITITES: 2+ edema lower extremities. Lower extremities wrapped. Objective - Vital Signs Vital signs: Vital Signs Temp 97.9 F 04/26/24 07:25 Pulse 80 04/26/24 07:43 Resp 18 04/26/24 07:25 BP 93/61 04/26/24 07:25 Pulse Ox 96 04/26/24 07:43 FiO2 21 04/26/24 07:43 Intake & Output 04/25/24 04/26/24 04/26/24 18:59 06:59 18:59 Intake Total 780 915 222 Balance 780 915 222 Intake: Intake, IV Titration 600 Amount Cefepime 2 gm In Sodium 100 Chloride 0.9% 100 ml @ 25 mls/hr IVPB Q8HR JOCELYN Rx# :[id number] Vancomycin 1,750 mg In 500 Sodium Chloride 0.9% 500 ml 500 ml @ 167 mls/hr IVPB Q16H JOCELYN Rx#: [id number] Oral 780 315 222 Other: Voiding Method Toilet # Voids 2 1 - Labs CBC & Chem 7: 04/26/24 05:51 04/26/24 05:51 Labs: Abnormal Lab Results - Last 24 Hours (Table) 04/26/24 04/26/24 Range/Units 05:51 05:51 RBC 2.64 L (4.10-5.20) X 10*6/uL Hgb 8.4 L (12.0-15.0) g/dL Hct 27.0 L (37.2-46.3) % MCV 102.3 H (80.0-97.0) FL MCHC 31.1 L (32.0-37.0) g/dL RDW 21.3 H (11.5-14.5) % Plt Count 102 L (140-440) X 10*3/uL Immature Gran # 0.07 H (0.00-0.04) X 10*3/uL Sodium 131 L (135-145) mmol/L Carbon Dioxide 18.8 L (21.6-31.8) mmol/L Est GFR (CKD-EPI) 52 L (>=60) Calcium 7.9 L (8.7-10.3) mg/dL Alkaline Phosphatase 140 H (41-126) U/L Total Protein 4.1 L (6.2-8.2) g/dL Albumin 2.5 L (3.8-4.9) g/dL Albumin/Globulin Ratio 1.56 L (1.60-3.17) Ratio Microbiology - Last 24 Hours (Table) 04/20/24 17:30 Urine Culture - Final Urine,Voided Enterococcus faecalis VRE Escherichia coli Assessment and Plan Plan: Assessment: 1. Hyponatremia. Hypervolemic. TSH normal. Cosyntropin stimulation test done April 03, 2024 negative. Urine sodium less than 20 and urine osmolality 549. Did receive 3% this admission. On demeclocycline. Sodium level 131 today. 2. Alcohol induced liver cirrhosis. 3. Volume overload. Better with diuresis. 4. Anemia. Iron deficiency noted. Status post IV iron. 5. Metabolic acidosis maintained on oral bicarb. 6. Lower extremity cellulitis and UTI with urine culture positive for group D Enterococcus and E. coli on antibiotics. ID following. Plan: Maintain fluid restriction. Maintain midodrine. Maintain Aldactone. Repeat Lasix 40 mg IV once today. Maintain demeclocycline. Repeat labs in the morning. Avoid sodium chloride tabs due to hypervolemia.
[2024-04-26] MEDS: FUROSEMIDE 10 MG/ML 4 ML VIAL IV STA (11:47)
[2024-04-26] MEDS: POTASSIUM CHLORIDE ER 20 MEQ TAB.ER PO STA (11:47)
--- NOTE | 2024-04-26 12:28 | P.PN ---
Subjective Progress Note Date: 04/26/24 CHIEF COMPLAINT: Hyponatremia HISTORY OF PRESENT ILLNESS: Surgical service following due to prior history of cholecystectomy on March 21, 2024. Drainage from the old SALVADOR drain site on the right is less to minimal of serous ascites fluid. Sodium 131 Patient seen and examined with Dr. Corrigan PHYSICAL EXAM: VITAL SIGNS: Reviewed. GENERAL: Generalized edema ABDOMEN: Distended edematous. Minimal serous ascites drainage from the old SALVADOR drain site on the right of the abdomen. The sutures in the umbilicus intact. No evidence of infection. NEUROLOGIC: Alert and oriented. Cranial nerves II through XII grossly intact. Extremities: Patient has swelling both upper and lower extremities. Evidence of cellulitis on the left tibia ASSESSMENT: 1. Cholecystitis status post cholecystectomy on March 21, 2024 2. Alcohol liver cirrhosis with abdominal ascites 3. Hyponatremia PLAN: -Plan to remove sutures when patient's generalized edema has improved -Hyponatremia and fluid management per nephrology -Continue supportive care Physician Jigsawyer note has been reviewed by physician. Signing provider agrees with the documented findings, assessment, and plan of care. Objective - Vital Signs Vital signs: Vital Signs Temp 97.9 F 04/26/24 07:25 Pulse 84 04/26/24 11:16 Resp 18 04/26/24 07:25 BP 93/61 04/26/24 07:25 Pulse Ox 96 04/26/24 07:43 FiO2 21 04/26/24 07:43 Intake & Output 04/25/24 04/26/24 04/26/24 18:59 06:59 18:59 Intake Total 780 915 222 Balance 780 915 222 Intake: Intake, IV Titration 600 Amount Cefepime 2 gm In Sodium 100 Chloride 0.9% 100 ml @ 25 mls/hr IVPB Q8HR [facility] Rx# :[id number] Vancomycin 1,750 mg In 500 Sodium Chloride 0.9% 500 ml 500 ml @ 167 mls/hr IVPB Q16H [facility] Rx#: [id number] Oral 780 315 222 Other: Voiding Method Toilet # Voids 2 1 - Labs CBC & Chem 7: 04/26/24 05:51 04/26/24 05:51 Labs: Abnormal Lab Results - Last 24 Hours (Table) 04/26/24 04/26/24 Range/Units 05:51 05:51 RBC 2.64 L (4.10-5.20) X 10*6/uL Hgb 8.4 L (12.0-15.0) g/dL Hct 27.0 L (37.2-46.3) % MCV 102.3 H (80.0-97.0) FL MCHC 31.1 L (32.0-37.0) g/dL RDW 21.3 H (11.5-14.5) % Plt Count 102 L (140-440) X 10*3/uL Immature Gran # 0.07 H (0.00-0.04) X 10*3/uL Sodium 131 L (135-145) mmol/L Carbon Dioxide 18.8 L (21.6-31.8) mmol/L Est GFR (CKD-EPI) 52 L (>=60) Calcium 7.9 L (8.7-10.3) mg/dL Alkaline Phosphatase 140 H (41-126) U/L Total Protein 4.1 L (6.2-8.2) g/dL Albumin 2.5 L (3.8-4.9) g/dL Albumin/Globulin Ratio 1.56 L (1.60-3.17) Ratio Microbiology - Last 24 Hours (Table) 04/20/24 17:30 Urine Culture - Final Urine,Voided Enterococcus faecalis VRE Escherichia coli
--- NOTE | 2024-04-26 15:43 | P.PN ---
Subjective Progress Note Date: 04/26/24 This is a 44-year-old female with known history of cirrhosis of the liver, patient quit drinking alcohol in the last 6 months. Patient does have history of chronic fluid retention and ascites related to her chronic liver disease, and she has history of chronic hyponatremia. Her sodium has always been in the range of 1 20-1 26 at best over the last few months. And the patient had multiple admissions with hyponatremia. Apparently the patient came to the hospital yesterday because outpatient blood test showed a sodium of 114. Patient had no major symptoms except for generalized weakness no symptoms of seizures or seizures activity. Patient was seen in the ER, and the recommendation was to start the patient on 3% saline and admit the patient to the ICU for 3% saline infusion. She did receive 3% saline, and her sodium this morning is 119. Her mental status seems to be very appropriate. Patient is hemodynamically stable, she is on diuretics at home in the form of Aldactone. Patient had no previous history of malignancy. And in the past her low sodium has been diagnosed to be related to her liver disease and possibly underlying SIADH. Patient was recently in the hospital for cholecystectomy this was done by Dr. José Miguel wynn, and she continues to have some persistent oozing and dr brian from her abdominal wall at the site of her SALVADOR drain. Patient denies any shortness of breath no cough no wheezing no chest pain. CBC is relatively normal basic metabolic profile showed a sodium of 119 bicarb is 13 patient received sodium bicarb as ordered by nephrology her BUN is 26 creatinine 1.06. Liver enzymes noted her ammonia level is 39 Progress note dated April 18, 2024. 44-year-old female seen yesterday in consultation. She has a history of cirrhosis, chronic alcohol abuse, and a recent admission to the hospital, at which time, she was being treated for hyponatremia. The patient was readmitted to the hospital, with hyponatremia, on April 16, with a sodium of 114. Today, her sodium is 123. She is currently on 2 L of oxygen. The patient is receiving norepinephrine at 0.02 mcg/kg/min. She is also getting saline at 20 cc an hour. On her previous admission, the patient had refractory hyponatremia, despite aggressive treatment with 3% saline, and other medications. Current laboratory data includes a white count 7.2, hemoglobin 8.7, hematocrit 26.7, and platelet count of 131,000. Sodium 123, potassium 3.9, chlorides 97, CO2 18, BUN 27, and creatinine 1.09. Progress note dated April 19, 2024. 44-year-old female seen again in room 262. Her current sodium is 126. For a brief period of time, she was back on 3% saline. Currently, she is on room air. She is not receiving any IV fluids. Clinically, she has been very stable, and she has had an uneventful night. White count 6.5, hemoglobin 8.5, hematocrit 26.5, and platelet count of 125,000. Sodium 126, potassium 3.7, chlorides 100, CO2 19, BUN 28, creatinine 1.16. Albumin is 2.1. Progress note dated April 20, 2024. 44-year-old female seen in room 262. She is on room air. She is not receiving any IV fluids. Today sodium is 125. She is asymptomatic. White count is 9.1, hemoglobin 8.4, hematocrit 27.4, with a platelet count of 122,000. Sodium 125, potassium 3.9, chlorides 101, CO2 17, BUN 27, and creatinine 1.20. Glucose is 120. Calcium is 7.8. Albumin is 2. Progress note dated April 21, 2024. The patient is seen today in room 519. The patient is on room air. She is not receiving any IV fluids. Room air saturation is 97%. Her sodium this morning was 124. She was admitted with a diagnosis of hyponatremia. She has been in and out of the intensive care unit, for hypotension, and hyponatremia. Labs today include a white count of 8, hemoglobin 8.1, hematocrit 25, platelet count 118,000. Sodium 124, potassium 3.6, chlorides 100, CO2 20, BUN 22, creatinine 1.13. The patient continues on Ancef, as per infectious diseases. Progress note dated April 22, 2024. 44-year-old female seen today in room 519. The patient is on room air. No IV fluids. Yesterday sodium was 124. No sodium yet back on the chart today. The patient has no new complaints. He was admitted primarily for hyponatremia. Urine culture showed evidence of group D Enterococcus, and gram-negative bacilli. She continues on vancomycin as per infectious diseases. Progress note dated April 23, 2024. 44-year-old female seen in room 519. The patient is currently on room air. The patient is not receiving any IV fluids. The patient continues on cefepime and vancomycin. Her room air saturation is 94%. Today's sodium is 125. Yesterday sodium was 129. Sodium 125, potassium 3.8, chlorides 104, CO2 15, anion gap 6, BUN 21, creatinine 0.91. Calcium is 7.9. Urine is positive for group D Enterococcus. On 04/25/2024, the patient is being seen for a follow-up. Doing well. Abdomen is distended and the patient has minimal amount of leakage from the previous surgical site from a previous cholecystectomy that was done on 03/21/2024. The leakage is still from the SALVADOR insertion drain site. No nausea. No vomiting. No chest pain or abdominal pain. She is on Aldactone 25 mg p.o. twice daily. She is also on demeclocycline. In terms of antibiotic coverage, she remains on a combination of IV cefepime and vancomycin. The patient had a E. coli/Enterococcus group to urinary tract infection. No altered mentation. Most recent sodium levels at 127 with a BUN of 19 and a creatinine of 1.05. WBC count is at 6.1 with a hemoglobin of 7.6. 04/26/2024, the patient is doing well. She is having some abdominal distention. Minimal leakage from the previously inserted surgical SALVADOR site. Remains on demeclocycline. Given IV Lasix yesterday. Remains on Aldactone. No altered mentation. Remains on a combination of Rocephin and daptomycin. Sodium level from today is at 131 with a potassium level of 3.6. Serum bicarb is 18. BUN is 20 with a creatinine of 1.3. Liver function tests are essentially stable and unchanged. The patient's white cell count is at 5.4 and the patient's hemoglobin is at 8.4. Remains on midodrine. Blood pressure is stable. No s ignificant hypotension. Pulse ox 97% on room air oxygen. Objective - Vital Signs Vital signs: Vital Signs Temp 97.9 F 04/26/24 07:25 Pulse 84 04/26/24 11:16 Resp 18 04/26/24 07:25 BP 93/61 04/26/24 07:25 Pulse Ox 96 04/26/24 07:43 FiO2 21 04/26/24 07:43 Intake & Output 04/25/24 04/26/24 04/26/24 18:59 06:59 18:59 Intake Total 780 915 222 Balance 780 915 222 Intake: Intake, IV Titration 600 Amount Cefepime 2 gm In Sodium 100 Chloride 0.9% 100 ml @ 25 mls/hr IVPB Q8HR [facility] Rx# :[id number] Vancomycin 1,750 mg In 500 Sodium Chloride 0.9% 500 ml 500 ml @ 167 mls/hr IVPB Q16H [facility] Rx#: [id number] Oral 780 315 222 Other: Voiding Method Toilet # Voids 2 1 - Exam No acute distress, oriented 3. Respiratory distress. Currently on room air. HEENT examination is grossly unremarkable. Mucous membranes are moist. No oral lesions. Neck supple. Full range of motion. No adenopathy thyromegaly or neck vein distention. Cardiovascular examination reveals regular rhythm rate. S1-S2 normal. No S3 or S4. No discernible murmur noted. Lungs reveal clear breath sounds. Breath sounds are equal bilaterally. No adventitious lung sounds including wheezes rhonchi or crackles. Abdomen soft bowel sounds are heard. No masses or tenderness. The patient has ascites. The patient has a bag collecting the fluid from the previous SALVADOR insertion site. Output has dropped and the patient is producing approximately 100 to 200 cc on a 24-hour.. Extremities are intact. No cyanosis clubbing or edema. Skin is without rash or lesion. Neurologic examination is brief but nonfocal. - Labs CBC & Chem 7: 04/26/24 05:51 04/26/24 05:51 Labs: Abnormal Lab Results - Last 24 Hours (Table) 04/26/24 04/26/24 Range/Units 05:51 05:51 RBC 2.64 L (4.10-5.20) X 10*6/uL Hgb 8.4 L (12.0-15.0) g/dL Hct 27.0 L (37.2-46.3) % MCV 102.3 H (80.0-97.0) FL MCHC 31.1 L (32.0-37.0) g/dL RDW 21.3 H (11.5-14.5) % Plt Count 102 L (140-440) X 10*3/uL Immature Gran # 0.07 H (0.00-0.04) X 10*3/uL Sodium 131 L (135-145) mmol/L Carbon Dioxide 18.8 L (21.6-31.8) mmol/L Est GFR (CKD-EPI) 52 L (>=60) Calcium 7.9 L (8.7-10.3) mg/dL Alkaline Phosphatase 140 H (41-126) U/L Total Protein 4.1 L (6.2-8.2) g/dL Albumin 2.5 L (3.8-4.9) g/dL Albumin/Globulin Ratio 1.56 L (1.60-3.17) Ratio Microbiology - Last 24 Hours (Table) 04/20/24 17:30 Urine Culture - Final Urine,Voided Enterococcus faecalis VRE Escherichia coli Assessment and Plan Plan: Hypervolemic hyponatremia, improved. The sodium level is at 131 and the patient is currently on demeclocycline, remains on Aldactone and given Lasix yesterday by nephrology. Ascites History of liver cirrhosis, secondary to chronic alcohol abuse. E. coli/group D enterococcal urinary tract infection. History of chronic anemia. Ascites, minimal leak from the previously SALVADOR insertion site History of recent cholecystectomy. History of GI bleed, February 19, 2024, requiring EGD. History of esophageal varices. History of COPD. History of bipolar disorder. History of chronic thrombocytopenia. Plan: Clinically stable Hemodynamically stable Continue demeclocycline Monitor sodium level Continue Aldactone May benefit from additional Lasix. This will be discussed with nephrology. Continue vancomycin and cefepime. General surgery is on the case
[2024-04-27 09:21] LABS: Basophils # (A) 0.08 X 10*3/uL (0.00-0.10); Basophils % (A) 1.3 %; Eosinophils # (A) 0.25 X 10*3/uL (0.04-0.35); Eosinophils % (A) 4.2 %; HCT 29.7 % (37.2-46.3); HGB 9.2 g/dL (12.0-15.0); Lymphocytes # (A) 1.14 X 10*3/uL (0.90-5.00); Lymphocytes % (A) 19.1 %; MCH 31.6 pg (27.0-32.0); MCV 102.1 FL (80.0-97.0); Mean Platelet Volume 11.4 FL (9.5-12.2); Monocytes # (A) 0.68 X 10*3/uL (0.20-1.00); Monocytes % (A) 11.4 %; NRBC Per 100 WBC 0 X 10*3/uL (0.00-0.01); Neutrophils # (A) 3.74 X 10*3/uL (1.80-7.70); Neutrophils % (A) 62.5 %; Platelet Count 109 X 10*3/uL (140-440); RBC 2.91 X 10*6/uL (4.10-5.20); RDW 21.6 % (11.5-14.5); WBC 5.98 X 10*3/uL (4.50-10.00)
--- NOTE | 2024-04-27 09:27 | P.PN ---
Subjective Progress Note Date: 04/25/24 Principal diagnosis: Reason for follow-up is left leg cellulitis and possible UTI Patient is a 44-year-old female with a past medical history significant for cirrhosis of the liver bipolar disorder reflux recent admission to the hospital for cholecystitis status post cholecystectomy in this patient presenting to the hospital for hyponatremia also noticed to have increasing swelling redness of the left leg concerning for cellulitis prompting this consultation. On today's evaluation that is 04/25/2024, Patient is afebrile this morning patient denies having any chest pain shortness of breath or cough, the patient is breathing comfortably on room air, patient did have some abdominal distention but no nausea vomiting diarrhea or complaining of swelling to the lower extremity. Patient white count is 5.48, creatinine is 1.3 Objective - Vital Signs Vital signs: Vital Signs Temp 98.1 F 04/25/24 07:04 Pulse 110 H 04/25/24 07:43 Resp 16 04/25/24 07:04 BP 99/62 04/25/24 07:04 Pulse Ox 97 04/25/24 07:34 FiO2 Intake & Output 04/24/24 04/25/24 04/25/24 18:59 06:59 18:59 Intake Total 1010 240 340 Balance 1010 240 340 Intake: Oral 1010 240 340 Other: Voiding Method Toilet Toilet # Voids 3 - Exam GENERAL DESCRIPTION: Middle-age female lying in bed in no distress RESPIRATORY SYSTEM: Unlabored breathing , decreased breath sounds at bases HEART: S1 S2 regular rate and rhythm , ABDOMEN: Soft , no tenderness EXTREMITIES: Left leg swelling redness slightly decreased - Labs CBC & Chem 7: 04/27/24 04:55 04/26/24 05:51 Labs: Abnormal Lab Results - Last 24 Hours (Table) 04/25/24 Range/Units 03:56 Creatinine 1.08 H (0.52-1.04) mg/dL Microbiology - Last 24 Hours (Table) 04/20/24 17:30 Urine Culture - Preliminary Urine,Voided Group D Enterococcus Escherichia coli Assessment and Plan (1) Left leg cellulitis Current Visit: Yes Status: Acute Code(s): L03.116 - CELLULITIS OF LEFT LOWER LIMB SNOMED Code(s): 06586716263758797 (2) Penicillin allergy Current Visit: No Status: Acute Code(s): Z88.0 - ALLERGY STATUS TO PENICILLIN SNOMED Code(s): 91014934 (3) UTI (urinary tract infection) due to Enterococcus Current Visit: Yes Status: Acute Code(s): N39.0 - URINARY TRACT INFECTION, SITE NOT SPECIFIED; B95.2 - ENTEROCOCCUS THE CAUSE OF DISEASES CLASSIFIED ELSEWHERE SNOMED Code(s): 169952445516330 Plan: 1patient with initial admission to the hospital with hyponatremia in this patient noticed to have diffuse swelling redness of left lower extremity conc erning for cellulitis likely from gram-positive skin lawrence such as strep. 2patient with a penicillin allergy that will limit the number of antibiotics safe to use. 3 patient to continue with Theo wrap to both the leg to get some of the swelling down and marked the area of the redness 4patient urine is now growing group B Enterococcus and gram-negative with ID sensitivity on the gram-negative still pending 5-patient to continue with vancomycin and cefepime while waiting for the culture to finalize and continue with the cold compression to the left upper extremity for the phlebitis. Dictation was produced using [employer] dictation software. please excuse any grammatical, word or spelling errors. Time with Patient: Less than 30
--- NOTE | 2024-04-27 09:28 | P.PN ---
Subjective Progress Note Date: 04/26/24 Principal diagnosis: Reason for follow-up is left leg cellulitis and possible UTI Patient is a 44-year-old female with a past medical history significant for cirrhosis of the liver bipolar disorder reflux recent admission to the hospital for cholecystitis status post cholecystectomy in this patient presenting to the hospital for hyponatremia also noticed to have increasing swelling redness of the left leg concerning for cellulitis prompting this consultation. On today's evaluation that is 04/26/2024,the patient denies any fever or any chills, patient is breathing comfortably on room air, the patient denies chest pain shortness of breath and no significant cough, patient did have abdominal lower extremity swelling as well as abdominal distention denies any nausea vomiting or any worsening pain to lower extremity. Patient white count is 5.98 urine has not been finalized with the VRE and E. coli that is a sensitive pathogen Objective - Vital Signs Vital signs: Vital Signs Temp 98.1 F 04/26/24 14:00 Pulse 89 04/26/24 14:00 Resp 19 04/26/24 14:00 BP 100/64 04/26/24 14:00 Pulse Ox 97 04/26/24 14:00 FiO2 21 04/26/24 07:43 Intake & Output 04/25/24 04/26/24 04/26/24 18:59 06:59 18:59 Intake Total 780 915 444 Balance 780 915 444 Intake: Intake, IV Titration 600 Amount Cefepime 2 gm In Sodium 100 Chloride 0.9% 100 ml @ 25 mls/hr IVPB Q8HR [facility] Rx# :[id number] Vancomycin 1,750 mg In 500 Sodium Chloride 0.9% 500 ml 500 ml @ 167 mls/hr IVPB Q16H [facility] Rx#: [id number] Oral 780 315 444 Other: Voiding Method Toilet # Voids 2 1 - Exam GENERAL DESCRIPTION: Middle-age female lying in bed in no distress RESPIRATORY SYSTEM: Unlabored breathing , decreased breath sounds at bases HEART: S1 S2 regular rate and rhythm , ABDOMEN: Soft , no tenderness EXTREMITIES: Left leg swelling redness slightly decreased - Labs CBC & Chem 7: 04/27/24 04:55 04/26/24 05:51 Labs: Abnormal Lab Results - Last 24 Hours (Table) 09/24/24 09/24/24 Range/Units 05:51 05:51 RBC 2.64 L (4.10-5.20) X 10*6/uL Hgb 8.4 L (12.0-15.0) g/dL Hct 27.0 L (37.2-46.3) % MCV 102.3 H (80.0-97.0) FL MCHC 31.1 L (32.0-37.0) g/dL RDW 21.3 H (11.5-14.5) % Plt Count 102 L (140-440) X 10*3/uL Immature Gran # 0.07 H (0.00-0.04) X 10*3/uL Sodium 131 L (135-145) mmol/L Carbon Dioxide 18.8 L (21.6-31.8) mmol/L Est GFR (CKD-EPI) 52 L (>=60) Calcium 7.9 L (8.7-10.3) mg/dL Alkaline Phosphatase 140 H (41-126) U/L Total Protein 4.1 L (6.2-8.2) g/dL Albumin 2.5 L (3.8-4.9) g/dL Albumin/Globulin Ratio 1.56 L (1.60-3.17) Ratio Microbiology - Last 24 Hours (Table) 04/20/24 17:30 Urine Culture - Final Urine,Voided Enterococcus faecalis VRE Escherichia coli Assessment and Plan (1) Left leg cellulitis Current Visit: Yes Status: Acute Code(s): L03.116 - CELLULITIS OF LEFT LOWER LIMB SNOMED Code(s): 77948676523158663 (2) Penicillin allergy Current Visit: No Status: Acute Code(s): Z88.0 - ALLERGY STATUS TO PENICILLIN SNOMED Code(s): 41208496 (3) UTI (urinary tract infection) due to Enterococcus Current Visit: Yes Status: Acute Code(s): N39.0 - URINARY TRACT INFECTION, SITE NOT SPECIFIED; B95.2 - ENTEROCOCCUS THE CAUSE OF DISEASES CLASSIFIED ELSEWHERE SNOMED Code(s): 261202536342025 Plan: 1patient with initial admission to the hospital with hyponatremia in this patient noticed to have diffuse swelling redness of left lower extremity concerning for cellulitis likely from gram-positive skin lawrence such as strep. 2patient with a penicillin allergy that will limit the number of antibiotics safe to use. 3 patient to continue with Theo wrap to both the leg to get some of the swelling down and marked the area of the redness 4patient urine culture has been finalized with VRE and E. coli antibiotic having digestive to Rocephin and daptomycin to continue also advised compliance with the Theo wrap to keep some of the swelling to the left lower extremity down will benefit from diuretics as well nephrology following Dictation was produced using [employer] dictation software. please excuse any grammatical, word or spelling errors. Time with Patient: Less than 30
[2024-04-27 09:55] LABS: BUN/Creat Ratio 12.81 Ratio (12.00-20.00); Blood Urea Nitrogen 20.5 mg/dL (9.0-27.0); Carbon Dioxide 14.6 mmol/L (21.6-31.8); Chloride 105 mmol/L (96-109); Glucose 90 mg/dL (70-110); Magnesium 1.8 mg/dL (1.5-2.4); Potassium 3.8 mmol/L (3.5-5.5); Sodium 132 mmol/L (135-145)
[2024-04-27 09:56] LABS: ALT 20 U/L (8-44); AST 31 U/L (13-35); Albumin 2.6 g/dL (3.8-4.9); Alkaline Phosphatase 155 U/L (41-126); Calcium 8.4 mg/dL (8.7-10.3); Total Bilirubin 0.5 mg/dL (0.3-1.2); Total Protein 4.6 g/dL (6.2-8.2)
--- NOTE | 2024-04-27 11:14 | P.PN ---
Subjective Progress Note Date: 04/27/24 CHIEF COMPLAINT: Hyponatremia HISTORY OF PRESENT ILLNESS: Surgical service following due to prior history of cholecystectomy on March 21, 2024. Drainage from the old SALVADOR drain site on the right side of abdomen is minimal serous ascites fluid. Sodium 133 PHYSICAL EXAM: VITAL SIGNS: Reviewed. GENERAL: Generalized edema ABDOMEN: Distended edematous. Minimal serous ascites drainage from the old SALVADOR d rain site on the right of the abdomen. The sutures in the umbilicus intact. No evidence of infection. NEUROLOGIC: Alert and oriented. Cranial nerves II through XII grossly intact. Extremities: Patient has swelling both upper and lower extremities. Evidence of cellulitis on the left tibia ASSESSMENT: 1. Cholecystitis status post cholecystectomy on March 21, 2024 2. Alcohol liver cirrhosis with abdominal ascites 3. Hyponatremia PLAN: -Plan to remove sutures when patient's generalized edema has improved -Hyponatremia and fluid management per nephrology -Continue supportive care -Discussed with nursing staff to change appliance bag around ostomy site Physician Supervisor Beam Department note has been reviewed by physician. Signing provider agrees with the documented findings, assessment, and plan of care. Objective - Vital Signs Vital signs: Vital Signs Temp 97.8 F 04/27/24 07:21 Pulse 85 04/27/24 09:34 Resp 16 04/27/24 07:21 BP 89/54 04/27/24 07:21 Pulse Ox 97 04/27/24 09:26 FiO2 21 04/26/24 07:43 Intake & Output 04/26/24 04/27/24 04/27/24 18:59 06:59 18:59 Intake Total 444 564 Balance 444 564 Weight 132.6 kg Intake: Oral 444 564 Other: Voiding Method Toilet # Voids 2 1 # Bowel Movements 1 - Labs CBC & Chem 7: 04/27/24 04:55 04/27/24 04:55 Labs: Abnormal Lab Results - Last 24 Hours (Table) 04/27/24 04/27/24 Range/Units 04:55 04:55 RBC 2.91 L (4.10-5.20) X 10*6/uL Hgb 9.2 L (12.0-15.0) g/dL Hct 29.7 L (37.2-46.3) % MCV 102.1 H (80.0-97.0) FL MCHC 31.0 L (32.0-37.0) g/dL RDW 21.6 H (11.5-14.5) % Plt Count 109 L (140-440) X 10*3/uL Immature Gran # 0.09 H (0.00-0.04) X 10*3/uL Sodium 132 L (135-145) mmol/L Carbon Dioxide 14.6 L (21.6-31.8) mmol/L Anion Gap 12.40 H (4.00-12.00) mmol/L Creatinine 1.6 H (0.6-1.5) mg/dL Est GFR (CKD-EPI) 41 L (>=60) Calcium 8.4 L (8.7-10.3) mg/dL Alkaline Phosphatase 155 H (41-126) U/L Total Protein 4.6 L (6.2-8.2) g/dL Albumin 2.6 L (3.8-4.9) g/dL Albumin/Globulin Ratio 1.30 L (1.60-3.17) Ratio
--- NOTE | 2024-04-27 11:33 | P.PN ---
Subjective Progress Note Date: 04/27/24 Patient seen in follow-up for hyponatremia. Patient seen and examined at bedside. No acute events overnight. Sodium was at 127 --> 131 --> now at 132. Creatinine 1.08 --> 1.3 --> now at 1.6. Objective - Vital Signs Vital signs: Vital Signs Temp 97.8 F 04/27/24 07:21 Pulse 84 04/27/24 07:21 Resp 16 04/27/24 07:21 BP 89/54 04/27/24 07:21 Pulse Ox 96 04/27/24 07:21 FiO2 21 04/26/24 07:43 Intake & Output 04/26/24 04/27/24 04/27/24 18:59 06:59 18:59 Intake Total 444 564 Balance 444 564 Weight 132.6 kg Intake: Oral 444 564 Other: Voiding Method Toilet # Voids 2 1 # Bowel Movements 1 - Exam Physical examination: Vital signs reviewed General: non toxic, no distress, appears at stated age, normal weight Head: atraumatic, normocephalic, symmetric Mouth: no lip lesion, mucus membranes moist Cardiovascular: S1S2 reg, no murmur Lungs: CTA bilateral, no rhonchi, no rales, no accessory muscle use Abdominal: distended, nontender to palpation, no guarding Ext: muscle strength 5 out of 5 in all 4 extremities grossly, no gross muscle atrophy, no contractures, positive dorsalis pedis pulse bilateral, bilateral +3 pitting edema, left leg erythematous Neuro: no gross focal neuro deficits Psych: Alert, oriented, appropriate affect and mood - Labs CBC & Chem 7: 04/27/24 04:55 04/27/24 04:55 Labs: Abnormal Lab Results - Last 24 Hours (Table) 04/26/24 04/26/24 Range/Units 05:51 05:51 RBC 2.64 L (4.10-5.20) X 10*6/uL Hgb 8.4 L (12.0-15.0) g/dL Hct 27.0 L (37.2-46.3) % MCV 102.3 H (80.0-97.0) FL MCHC 31.1 L (32.0-37.0) g/dL RDW 21.3 H (11.5-14.5) % Plt Count 102 L (140-440) X 10*3/uL Immature Gran # 0.07 H (0.00-0.04) X 10*3/uL Sodium 131 L (135-145) mmol/L Carbon Dioxide 18.8 L (21.6-31.8) mmol/L Est GFR (CKD-EPI) 52 L (>=60) Calcium 7.9 L (8.7-10.3) mg/dL Alkaline Phosphatase 140 H (41-126) U/L Total Protein 4.1 L (6.2-8.2) g/dL Albumin 2.5 L (3.8-4.9) g/dL Albumin/Globulin Ratio 1.56 L (1.60-3.17) Ratio Microbiology - Last 24 Hours (Table) 04/20/24 17:30 Urine Culture - Final Urine,Voided Enterococcus faecalis VRE Escherichia coli Assessment and Plan Assessment: 1. Hyponatremia. Hypervolemic. TSH normal. Cosyntropin stimulation test done April 03, 2024 negative. Urine sodium less than 20 and urine osmolality 549. Did receive 3% this admission. On demeclocycline. Sodium level 132 today. 2. Alcohol induced liver cirrhosis. 3. Volume overload. Better with diuresis. 4. Anemia. Iron deficiency noted. Status post IV iron. 5. Metabolic acidosis maintained on oral bicarb. 6. Lower extremity cellulitis and UTI with urine culture positive for group D Enterococcus and E. coli on antibiotics. On Rocephin and Daptomycin per ID. Plan: Maintain fluid restriction. Maintain midodrine. Increase Aldactone to 50mg PO BID. Hold if SBP is at low 80s. Repeat Lasix 40 mg IV once today. Maintain demeclocycline. Repeat labs in the morning. Avoid sodium chloride tabs due to hypervolemia. Avoid nephrotoxic agents I have seen and examined the patient with the resident and agree with assessment and plan as written. Remains edematous. Increase diuretics.
[2024-04-27] MEDS: FUROSEMIDE 10 MG/ML 4 ML VIAL IV STA (12:48)
--- NOTE | 2024-04-27 18:20 | P.PN ---
Subjective Progress Note Date: 04/27/24 This is a 44-year-old female with known history of cirrhosis of the liver, patient quit drinking alcohol in the last 6 months. Patient does have history of chronic fluid retention and ascites related to her chronic liver disease, and she has history of chronic hyponatremia. Her sodium has always been in the range of 1 20-1 26 at best over the last few months. And the patient had multiple admissions with hyponatremia. Apparently the patient came to the hospital yesterday because outpatient blood test showed a sodium of 114. Patient had no major symptoms except for generalized weakness no symptoms of seizures or seizures activity. Patient was seen in the ER, and the recommendation was to start the patient on 3% saline and admit the patient to the ICU for 3% saline infusion. She did receive 3% saline, and her sodium this morning is 119. Her mental status seems to be very appropriate. Patient is hemodynamically stable, she is on diuretics at home in the form of Aldactone. Patient had no previous history of malignancy. And in the past her low sodium has been diagnosed to be related to her liver disease and possibly underlying SIADH. Patient was recently in the hospital for cholecystectomy this was done by Dr. José Miguel wynn, and she continues to have some persistent oozing and dr brian from her abdominal wall at the site of her SALVADOR drain. Patient denies any shortness of breath no cough no wheezing no chest pain. CBC is relatively normal basic metabolic profile showed a sodium of 119 bicarb is 13 patient received sodium bicarb as ordered by nephrology her BUN is 26 creatinine 1.06. Liver enzymes noted her ammonia level is 39 Progress note dated April 18, 2024. 44-year-old female seen yesterday in consultation. She has a history of cirrhosis, chronic alcohol abuse, and a recent admission to the hospital, at which time, she was being treated for hyponatremia. The patient was readmitted to the hospital, with hyponatremia, on April 16, with a sodium of 114. Today, her sodium is 123. She is currently on 2 L of oxygen. The patient is receiving norepinephrine at 0.02 mcg/kg/min. She is also getting saline at 20 cc an hour. On her previous admission, the patient had refractory hyponatremia, despite aggressive treatment with 3% saline, and other medications. Current laboratory data includes a white count 7.2, hemoglobin 8.7, hematocrit 26.7, and platelet count of 131,000. Sodium 123, potassium 3.9, chlorides 97, CO2 18, BUN 27, and creatinine 1.09. Progress note dated April 19, 2024. 44-year-old female seen again in room 262. Her current sodium is 126. For a brief period of time, she was back on 3% saline. Currently, she is on room air. She is not receiving any IV fluids. Clinically, she has been very stable, and she has had an uneventful night. White count 6.5, hemoglobin 8.5, hematocrit 26.5, and platelet count of 125,000. Sodium 126, potassium 3.7, chlorides 100, CO2 19, BUN 28, creatinine 1.16. Albumin is 2.1. Progress note dated April 20, 2024. 44-year-old female seen in room 262. She is on room air. She is not receiving any IV fluids. Today sodium is 125. She is asymptomatic. White count is 9.1, hemoglobin 8.4, hematocrit 27.4, with a platelet count of 122,000. Sodium 125, potassium 3.9, chlorides 101, CO2 17, BUN 27, and creatinine 1.20. Glucose is 120. Calcium is 7.8. Albumin is 2. Progress note dated April 21, 2024. The patient is seen today in room 519. The patient is on room air. She is not receiving any IV fluids. Room air saturation is 97%. Her sodium this morning was 124. She was admitted with a diagnosis of hyponatremia. She has been in and out of the intensive care unit, for hypotension, and hyponatremia. Labs today include a white count of 8, hemoglobin 8.1, hematocrit 25, platelet count 118,000. Sodium 124, potassium 3.6, chlorides 100, CO2 20, BUN 22, creatinine 1.13. The patient continues on Ancef, as per infectious diseases. Progress note dated April 22, 2024. 44-year-old female seen today in room 519. The patient is on room air. No IV fluids. Yesterday sodium was 124. No sodium yet back on the chart today. The patient has no new complaints. He was admitted primarily for hyponatremia. Urine culture showed evidence of group D Enterococcus, and gram-negative bacilli. She continues on vancomycin as per infectious diseases. Progress note dated April 23, 2024. 44-year-old female seen in room 519. The patient is currently on room air. The patient is not receiving any IV fluids. The patient continues on cefepime and vancomycin. Her room air saturation is 94%. Today's sodium is 125. Yesterday sodium was 129. Sodium 125, potassium 3.8, chlorides 104, CO2 15, anion gap 6, BUN 21, creatinine 0.91. Calcium is 7.9. Urine is positive for group D Enterococcus. On 04/25/2024, the patient is being seen for a follow-up. Doing well. Abdomen is distended and the patient has minimal amount of leakage from the previous surgical site from a previous cholecystectomy that was done on 03/21/2024. The leakage is still from the SALVADOR insertion drain site. No nausea. No vomiting. No chest pain or abdominal pain. She is on Aldactone 25 mg p.o. twice daily. She is also on demeclocycline. In terms of antibiotic coverage, she remains on a combination of IV cefepime and vancomycin. The patient had a E. coli/Enterococcus group to urinary tract infection. No altered mentation. Most recent sodium levels at 127 with a BUN of 19 and a creatinine of 1.05. WBC count is at 6.1 with a hemoglobin of 7.6. 04/26/2024, the patient is doing well. She is having some abdominal distention. Minimal leakage from the previously inserted surgical SALVADOR site. Remains on demeclocycline. Given IV Lasix yesterday. Remains on Aldactone. No altered mentation. Remains on a combination of Rocephin and daptomycin. Sodium level from today is at 131 with a potassium level of 3.6. Serum bicarb is 18. BUN is 20 with a creatinine of 1.3. Liver function tests are essentially stable and unchanged. The patient's white cell count is at 5.4 and the patient's hemoglobin is at 8.4. Remains on midodrine. Blood pressure is stable. No s ignificant hypotension. Pulse ox 97% on room air oxygen. On today's evaluation of 04/27/2024. The patient has no specific complaints. She is having some increased swelling. Sodium levels at 132. BUN is at 20 with a creatinine of 1.6. Potassium is at 3.8. Nephrology on the case. The white cell count of 5.9 with hemoglobin 9.2. The patient is on Aldactone 50 mg p.o. twice daily. He will receive another dose of Lasix 40 mg IV push prior nephrology recommendation. She is also on demeclocycline. No altered mentation. She remains on room air oxygen. Blood pressure stable for now. No significant hypotension. Objective - Vital Signs Vital signs: Vital Signs Temp 97.8 F 04/27/24 07:21 Pulse 85 04/27/24 09:34 Resp 16 04/27/24 07:21 BP 89/54 04/27/24 07:21 Pulse Ox 97 04/27/24 09:26 FiO2 21 04/26/24 07:43 Intake & Output 04/26/24 04/27/24 04/27/24 18:59 06:59 18:59 Intake Total 444 564 Balance 444 564 Weight 132.6 kg Intake: Oral 444 564 Other: Voiding Method Toilet # Voids 2 1 # Bowel Movements 1 - Exam No acute distress, oriented 3. Respiratory distress. Currently on room air. HEENT examination is grossly unremarkable. Mucous membranes are moist. No oral lesions. Neck supple. Full range of motion. No adenopathy thyromegaly or neck vein distention. Cardiovascular examination reveals regular rhythm rate. S1-S2 normal. No S3 or S4. No discernible murmur noted. Lungs reveal clear breath sounds. Breath sounds are equal bilaterally. No adventitious lung sounds including wheezes rhonchi or crackles. Abdomen soft bowel sounds are heard. No masses or tenderness. The patient has ascites. The patient has a bag collecting the fluid from the previous SALVADOR insertion site. Output has dropped and the patient is producing approximately 100 to 200 cc on a 24-hour.. Extremities are intact. No cyanosis clubbing or edema. Skin is without rash or lesion. Neurologic examination is brief but nonfocal. - Labs CBC & Chem 7: 04/27/24 04:55 04/27/24 04:55 Labs: Abnormal Lab Results - Last 24 Hours (Table) 04/27/24 04/27/24 Range/Units 04:55 04:55 RBC 2.91 L (4.10-5.20) X 10*6/uL Hgb 9.2 L (12.0-15.0) g/dL Hct 29.7 L (37.2-46.3) % MCV 102.1 H (80.0-97.0) FL MCHC 31.0 L (32.0-37.0) g/dL RDW 21.6 H (11.5-14.5) % Plt Count 109 L (140-440) X 10*3/uL Immature Gran # 0.09 H (0.00-0.04) X 10*3/uL Sodium 132 L (135-145) mmol/L Carbon Dioxide 14.6 L (21.6-31.8) mmol/L Anion Gap 12.40 H (4.00-12.00) mmol/L Creatinine 1.6 H (0.6-1.5) mg/dL Est GFR (CKD-EPI) 41 L (>=60) Calcium 8.4 L (8.7-10.3) mg/dL Alkaline Phosphatase 155 H (41-126) U/L Total Protein 4.6 L (6.2-8.2) g/dL Albumin 2.6 L (3.8-4.9) g/dL Albumin/Globulin Ratio 1.30 L (1.60-3.17) Ratio Assessment and Plan Plan: Hypervolemic hyponatremia, improved. The sodium level is at 132 and the patient is currently on demeclocycline, remains on Aldactone and given Lasix yesterday by nephrology. Ascites History of liver cirrhosis, secondary to chronic alcohol abuse. E. coli/group D enterococcal urinary tract infection. History of chronic anemia. Ascites, minimal leak from the previously SALVADOR insertion site History of recent cholecystectomy. History of GI bleed, February 19, 2024, requiring EGD. History of esophageal varices. History of COPD. History of bipolar disorder. History of chronic thrombocytopenia. Acute kidney injury and the creatinine is up to 1.6 on today's evaluation. The patient was taken off vancomycin. The vancomycin trough on 04/23/2024 was 15.2. Plan: Clinically stable Hemodynamically stable Continue demeclocycline Monitor sodium level Continue Aldactone Give another dose of Lasix 40 mg IV push Monitor electrolytes including the renal function Antibiotics have been modified to IV Rocephin and daptomycin and vancomycin has been discontinued General surgery is on the case
[2024-04-27] MEDS: POTASSIUM CHLORIDE ER 20 MEQ TAB.ER PO SCH (18:35)
[2024-04-27] MEDS: SPIRONOLACTONE 25 MG TAB PO SCH (21:52)
[2024-04-28 08:25] LABS: Basophils # (A) 0.06 X 10*3/uL (0.00-0.10); Eosinophils # (A) 0.27 X 10*3/uL (0.04-0.35); Eosinophils % (A) 4.5 %; HGB 8.6 g/dL (12.0-15.0); Lymphocytes # (A) 1.03 X 10*3/uL (0.90-5.00); Lymphocytes % (A) 17.3 %; MCH 32.1 pg (27.0-32.0); MCHC 30.7 g/dL (32.0-37.0); MCV 104.5 FL (80.0-97.0); Mean Platelet Volume 12.2 FL (9.5-12.2); Monocytes # (A) 0.69 X 10*3/uL (0.20-1.00); Monocytes % (A) 11.6 %; NRBC Per 100 WBC 0 X 10*3/uL (0.00-0.01); Neutrophils # (A) 3.86 X 10*3/uL (1.80-7.70); Neutrophils % (A) 64.6 %; Platelet Count 111 X 10*3/uL (140-440); RBC 2.68 X 10*6/uL (4.10-5.20); RDW 21.8 % (11.5-14.5); WBC 5.97 X 10*3/uL (4.50-10.00)
[2024-04-28 09:36] LABS: ALT 17 U/L (8-44); AST 31 U/L (13-35); Albumin 2.5 g/dL (3.8-4.9); Albumin/Globulin Ratio 1.32 Ratio (1.60-3.17); Alkaline Phosphatase 174 U/L (41-126); BUN/Creat Ratio 12.48 Ratio (12.00-20.00); Blood Urea Nitrogen 26.2 mg/dL (9.0-27.0); Calcium 8.1 mg/dL (8.7-10.3); Carbon Dioxide 16.8 mmol/L (21.6-31.8); Chloride 104 mmol/L (96-109); Globulin 1.9 g/dL (1.6-3.3); Glucose 103 mg/dL (70-110); Magnesium 1.9 mg/dL (1.5-2.4); Potassium 3.7 mmol/L (3.5-5.5); Sodium 132 mmol/L (135-145); Total Bilirubin 0.3 mg/dL (0.3-1.2); Total Protein 4.4 g/dL (6.2-8.2)
--- NOTE | 2024-04-28 10:21 | P.PN ---
Subjective Progress Note Date: 04/28/24 Patient seen in follow-up for hyponatremia. Patient seen and examined at bedside. No acute events overnight. Sodium was at 127 --> 131 --> 132 --> 132. Creatinine 1.08 --> 1.3 --> 1.6 --> 2.1. Objective - Vital Signs Vital signs: Vital Signs Temp 98.0 F 04/28/24 07:30 Pulse 80 04/28/24 08:42 Resp 17 04/28/24 07:30 BP 81/49 04/28/24 07:30 Pulse Ox 95 04/28/24 08:34 FiO2 21 04/26/24 07:43 Intake & Output 04/27/24 04/28/24 04/28/24 18:59 06:59 18:59 Intake Total 408 220 240 Output Total 30 Balance 378 220 240 Weight 137 kg Intake: Intake, IV Titration 100 Amount DAPTOmycin 300 mg In 50 Sodium Chloride 0.9% 50 ml @ 100 mls/hr IVPB Q24H [facility] Rx#:[id number] cefTRIAXone 2 gm In 50 Sodium Chloride 0.9% 50 ml @ 100 mls/hr IVPB Q24HR [facility] Rx#:[id number] Oral 308 220 240 Output: Drainage 30 Right Lower Abdomen 30 Other: Voiding Method Toilet # Voids 1 3 - Exam Physical examination: Vital signs reviewed General: non toxic, no distress, appears at stated age, obese Head: atraumatic, normocephalic, symmetric Mouth: no lip lesion, mucus membranes moist Cardiovascular: S1S2 reg, no murmur Lungs: CTA bilateral, no rhonchi, no rales, no accessory muscle use Abdominal: distended, nontender to palpation, no guarding Ext: muscle strength 5 out of 5 in all 4 extremities grossly, no gross muscle atrophy, no contractures, positive dorsalis pedis pulse bilateral, bilateral +3 pitting edema, left leg erythematous Neuro: no gross focal neuro deficits Psych: Alert, oriented, appropriate affect and mood - Labs CBC & Chem 7: 04/28/24 05:12 04/28/24 05:12 Labs: Abnormal Lab Results - Last 24 Hours (Table) 04/27/24 04/28/24 Range/Units 04:55 05:12 RBC 2.68 L (4.10-5.20) X 10*6/uL Hgb 8.6 L (12.0-15.0) g/dL Hct 28.0 L (37.2-46.3) % MCV 104.5 H (80.0-97.0) FL MCH 32.1 H (27.0-32.0) pg MCHC 30.7 L (32.0-37.0) g/dL RDW 21.8 H (11.5-14.5) % Plt Count 111 L (140-440) X 10*3/uL Immature Gran # 0.06 H (0.00-0.04) X 10*3/uL Sodium 132 L (135-145) mmol/L Carbon Dioxide 14.6 L (21.6-31.8) mmol/L Anion Gap 12.40 H (4.00-12.00) mmol/L Creatinine 1.6 H (0.6-1.5) mg/dL Est GFR (CKD-EPI) 41 L (>=60) Calcium 8.4 L (8.7-10.3) mg/dL Alkaline Phosphatase 155 H (41-126) U/L Total Protein 4.6 L (6.2-8.2) g/dL Albumin 2.6 L (3.8-4.9) g/dL Albumin/Globulin Ratio 1.30 L (1.60-3.17) Ratio Assessment and Plan Assessment: 1. Hyponatremia. Hypervolemic. TSH normal. Cosyntropin stimulation test done April 03, 2024 negative. Urine sodium less than 20 and urine osmolality 549. Did receive 3% this admission. On demeclocycline. Sodium level 132 today. 2. Alcohol induced liver cirrhosis. 3. Volume overload. Better with diuresis. 4. Anemia. Iron deficiency noted. Status post IV iron. 5. Metabolic acidosis maintained on oral bicarb. 6. Lower extremity cellulitis and UTI with urine culture positive for group D Enterococcus and E. coli on antibiotics. On Rocephin and Daptomycin per ID. Plan: Maintain fluid restriction. Low Na diet Arias catheter insertion for precise UO measurement Maintain midodrine. Hold aldactone for now due to low BP Maintain demeclocycline. IV lasix drip 5mg/hr as patient is very volume overloaded repeat Cortisol in the AM Repeat labs in the morning. Avoid sodium chloride tabs due to hypervolemia. Avoid nephrotoxic agents I have seen and examined the patient with resident and agree with A&P as written. MEMO from diuresis but remains hypervolemic.
--- NOTE | 2024-04-28 10:56 | P.PN ---
Subjective Progress Note Date: 04/28/24 CHIEF COMPLAINT: Hyponatremia HISTORY OF PRESENT ILLNESS: Surgical service following due to prior history of cholecystectomy on March 21, 2024. Fluid from old SALVADOR drain site 30 mL of ascites fluid. Patient did receive IV Lasix yesterday. Patient remains edematous. Sodium 132 PHYSICAL EXAM: VITAL SIGNS: Reviewed. GENERAL: Generalized edema ABDOMEN: Distended edematous. Minimal serous ascites drainage from the old SALVADOR drain site on the right of the abdomen. The sutures in the umbilicus intact. No evidence of infection. NEUROLOGIC: Alert and oriented. Cranial nerves II through XII grossly intact. Extremities: Patient has swelling both upper and lower extremities. Evidence of cellulitis on the left tibia ASSESSMENT: 1. Cholecystitis status post cholecystectomy on March 21, 2024 2. Alcohol liver cirrhosis with abdominal ascites 3. Hyponatremia 4. Fluid leaking from the old SALVADOR drain site on the abdomen is ascites fluid from patient's liver cirrhosis PLAN: -Plan to remove sutures when patient's generalized edema has improved -Hyponatremia and fluid management per nephrology -Continue supportive care Physician Customer Support Professional note has been reviewed by physician. Signing provider agrees with the documented findings, assessment, and plan of care. Objective - Vital Signs Vital signs: Vital Signs Temp 98.0 F 04/28/24 07:30 Pulse 80 04/28/24 08:42 Resp 17 04/28/24 07:30 BP 81/49 04/28/24 07:30 Pulse Ox 95 04/28/24 08:34 FiO2 21 04/26/24 07:43 Intake & Output 04/27/24 04/28/24 04/28/24 18:59 06:59 18:59 Intake Total 408 220 240 Output Total 30 Balance 378 220 240 Weight 137 kg Intake: Intake, IV Titration 100 Amount DAPTOmycin 300 mg In 50 Sodium Chloride 0.9% 50 ml @ 100 mls/hr IVPB Q24H [facility] Rx#:[id number] cefTRIAXone 2 gm In 50 Sodium Chloride 0.9% 50 ml @ 100 mls/hr IVPB Q24HR [facility] Rx#:[id number] Oral 308 220 240 Output: Drainage 30 Right Lower Abdomen 30 Other: Voiding Method Toilet Toilet # Voids 1 3 - Labs CBC & Chem 7: 04/28/24 05:12 04/28/24 05:12 Labs: Abnormal Lab Results - Last 24 Hours (Table) 04/28/24 04/28/24 Range/Units 05:12 05:12 RBC 2.68 L (4.10-5.20) X 10*6/uL Hgb 8.6 L (12.0-15.0) g/dL Hct 28.0 L (37.2-46.3) % MCV 104.5 H (80.0-97.0) FL MCH 32.1 H (27.0-32.0) pg MCHC 30.7 L (32.0-37.0) g/dL RDW 21.8 H (11.5-14.5) % Plt Count 111 L (140-440) X 10*3/uL Immature Gran # 0.06 H (0.00-0.04) X 10*3/uL Sodium 132 L (135-145) mmol/L Carbon Dioxide 16.8 L (21.6-31.8) mmol/L Creatinine 2.1 H (0.6-1.5) mg/dL Est GFR (CKD-EPI) 29 L (>=60) Calcium 8.1 L (8.7-10.3) mg/dL Alkaline Phosphatase 174 H (41-126) U/L Total Protein 4.4 L (6.2-8.2) g/dL Albumin 2.5 L (3.8-4.9) g/dL Albumin/Globulin Ratio 1.32 L (1.60-3.17) Ratio
[2024-04-28] MEDS: FUROSEMIDE 100 MG in SODIUM CHLORIDE 0.9% 90 ML IV SCH (14:12)
[2024-04-28 14:38] VITALS: RESP 22; TEMP 98.4
--- NOTE | 2024-04-28 14:45 | P.PN ---
Subjective Progress Note Date: 04/27/24 Principal diagnosis: Reason for follow-up is left leg cellulitis and possible UTI Patient is a 44-year-old female with a past medical history significant for cirrhosis of the liver bipolar disorder reflux recent admission to the hospital for cholecystitis status post cholecystectomy in this patient presenting to the hospital for hyponatremia also noticed to have increasing swelling redness of the left leg concerning for cellulitis prompting this consultation. On today's evaluation that is 04/27/2024,the patient remains to be afebrile, patient is on room air not requiring supplemental oxygen however complaining of some shortness of breath denies any chest pain or cough still having abdominal distention lower extremity swelling but no worsening pain left upper extremity swelling redness improved. PT white count 5.8, creatinine is 1.6 Objective - Vital Signs Vital signs: Vital Signs Temp 98.0 F 04/27/24 13:52 Pulse 110 H 04/27/24 13:52 Resp 16 04/27/24 13:52 BP 120/73 04/27/24 13:52 Pulse Ox 95 04/27/24 13:52 FiO2 21 04/26/24 07:43 Intake & Output 04/26/24 04/27/24 04/27/24 18:59 06:59 18:59 Intake Total 444 564 408 Output Total 30 Balance 444 564 378 Weight 132.6 kg Intake: Intake, IV Titration 100 Amount DAPTOmycin 300 mg In 50 Sodium Chloride 0.9% 50 ml @ 100 mls/hr IVPB Q24H [facility] Rx#:[id number] cefTRIAXone 2 gm In 50 Sodium Chloride 0.9% 50 ml @ 100 mls/hr IVPB Q24HR [facility] Rx#:[id number] Oral 444 564 308 Output: Drainage 30 Right Lower Abdomen 30 Other: Voiding Method Toilet # Voids 2 1 # Bowel Movements 1 - Exam GENERAL DESCRIPTION: Middle-age female lying in bed in no distress RESPIRATORY SYSTEM: Unlabored breathing , decreased breath sounds at bases HEART: S1 S2 regular rate and rhythm , ABDOMEN: Soft , no tenderness EXTREMITIES: Left leg swelling redness about the same left upper extremity swelling redness resolved - Labs CBC & Chem 7: 04/28/24 05:12 04/28/24 05:12 Labs: Abnormal Lab Results - Last 24 Hours (Table) 09/25/24 09/25/24 Range/Units 04:55 04:55 RBC 2.91 L (4.10-5.20) X 10*6/uL Hgb 9.2 L (12.0-15.0) g/dL Hct 29.7 L (37.2-46.3) % MCV 102.1 H (80.0-97.0) FL MCHC 31.0 L (32.0-37.0) g/dL RDW 21.6 H (11.5-14.5) % Plt Count 109 L (140-440) X 10*3/uL Immature Gran # 0.09 H (0.00-0.04) X 10*3/uL Sodium 132 L (135-145) mmol/L Carbon Dioxide 14.6 L (21.6-31.8) mmol/L Anion Gap 12.40 H (4.00-12.00) mmol/L Creatinine 1.6 H (0.6-1.5) mg/dL Est GFR (CKD-EPI) 41 L (>=60) Calcium 8.4 L (8.7-10.3) mg/dL Alkaline Phosphatase 155 H (41-126) U/L Total Protein 4.6 L (6.2-8.2) g/dL Albumin 2.6 L (3.8-4.9) g/dL Albumin/Globulin Ratio 1.30 L (1.60-3.17) Ratio Assessment and Plan (1) Left leg cellulitis Current Visit: Yes Status: Acute Code(s): L03.116 - CELLULITIS OF LEFT LOWER LIMB SNOMED Code(s): 11309817843509673 (2) Penicillin allergy Current Visit: No Status: Acute Code(s): Z88.0 - ALLERGY STATUS TO PENICILLIN SNOMED Code(s): 77765636 (3) UTI (urinary tract infection) due to Enterococcus Current Visit: Yes Status: Acute Code(s): N39.0 - URINARY TRACT INFECTION, SITE NOT SPECIFIED; B95.2 - ENTEROCOCCUS THE CAUSE OF DISEASES CLASSIFIED ELSEWHERE SNOMED Code(s): 258506045177662 Plan: 1patient with initial admission to the hospital with hyponatremia in this patient noticed to have diffuse swelling redness of left lower extremity moris rning for cellulitis likely from gram-positive skin lawrence such as strep. 2patient with a penicillin allergy that will limit the number of antibiotics safe to use. 3 patient to continue with Theo wrap to both the leg to get some of the swelling down and marked the area of the redness 4patient urine culture has been finalized with VRE and E. coli 5-patient is currently covered with the daptomycin and Rocephin to continue still have significant swelling to the lower extremity will benefit from di uretics nephrology following the patient Dictation was produced using [employer] dictation software. please excuse any grammatical, word or spelling errors. Time with Patient: Less than 30
--- NOTE | 2024-04-28 14:46 | P.PN ---
Subjective Progress Note Date: 04/28/24 Principal diagnosis: Reason for follow-up is left leg cellulitis and possible UTI Patient is a 44-year-old female with a past medical history significant for cirrhosis of the liver bipolar disorder reflux recent admission to the hospital for cholecystitis status post cholecystectomy in this patient presenting to the hospital for hyponatremia also noticed to have increasing swelling redness of the left leg concerning for cellulitis prompting this consultation. On today's evaluation that is 04/28/2024, the patient continues to be afebrile, the patient is on room air however complaining of shortness of breath and congestion also have significant abdominal distention and lower extremity swelling denies any worsening pain to the left lower extremity still have redn ess patient not been compliant with the application of the Theo wrap. The patient white count is 5.97, creatinine is 2.1 Objective - Vital Signs Vital signs: Vital Signs Temp 98.4 F 04/28/24 13:27 Pulse 125 H 04/28/24 13:27 Resp 22 04/28/24 13:27 BP 110/75 04/28/24 13:27 Pulse Ox 93 L 04/28/24 13:27 FiO2 21 04/26/24 07:43 Intake & Output 04/27/24 04/28/24 04/28/24 18:59 06:59 18:59 Intake Total 408 220 240 Output Total 30 Balance 378 220 240 Weight 137 kg Intake: Intake, IV Titration 100 Amount DAPTOmycin 300 mg In 50 Sodium Chloride 0.9% 50 ml @ 100 mls/hr IVPB Q24H J[facility] Rx#:[id number] cefTRIAXone 2 gm In 50 Sodium Chloride 0.9% 50 ml @ 100 mls/hr IVPB Q24HR [facility]OC[facility] Rx#:[id number] Oral 308 220 240 Output: Drainage 30 Right Lower Abdomen 30 Other: Voiding Method Toilet Toilet # Voids 1 3 - Exam GENERAL DESCRIPTION: Middle-age female lying in bed in no distress RESPIRATORY SYSTEM: Unlabored breathing , decreased breath sounds at bases HEART: S1 S2 regular rate and rhythm , ABDOMEN: Soft , no tenderness EXTREMITIES: Left leg swelling redness with swelling to the right lower extremity but no redness - Labs CBC & Chem 7: 04/28/24 05:12 04/28/24 05:12 Labs: Abnormal Lab Results - Last 24 Hours (Table) 04/28/24 04/28/24 Range/Units 05:12 05:12 RBC 2.68 L (4.10-5.20) X 10*6/uL Hgb 8.6 L (12.0-15.0) g/dL Hct 28.0 L (37.2-46.3) % MCV 104.5 H (80.0-97.0) FL MCH 32.1 H (27.0-32.0) pg MCHC 30.7 L (32.0-37.0) g/dL RDW 21.8 H (11.5-14.5) % Plt Count 111 L (140-440) X 10*3/uL Immature Gran # 0.06 H (0.00-0.04) X 10*3/uL Sodium 132 L (135-145) mmol/L Carbon Dioxide 16.8 L (21.6-31.8) mmol/L Creatinine 2.1 H (0.6-1.5) mg/dL Est GFR (CKD-EPI) 29 L (>=60) Calcium 8.1 L (8.7-10.3) mg/dL Alkaline Phosphatase 174 H (41-126) U/L Total Protein 4.4 L (6.2-8.2) g/dL Albumin 2.5 L (3.8-4.9) g/dL Albumin/Globulin Ratio 1.32 L (1.60-3.17) Ratio Assessment and Plan (1) Left leg cellulitis Current Visit: Yes Status: Acute Code(s): L03.116 - CELLULITIS OF LEFT LOWER LIMB SNOMED Code(s): 61649998176344603 (2) Penicillin allergy Current Visit: No Status: Acute Code(s): Z88.0 - ALLERGY STATUS TO PENICILLIN SNOMED Code(s): 29313261 (3) UTI (urinary tract infection) due to Enterococcus Current Visit: Yes Status: Acute Code(s): N39.0 - URINARY TRACT INFECTION, SITE NOT SPECIFIED; B95.2 - ENTEROCOCCUS THE CAUSE OF DISEASES CLASSIFIED ELSEWHERE SNOMED Code(s): 822971782859002 Plan: 1patient with initial admission to the hospital with hyponatremia in this patient noticed to have diffuse swelling redness of left lower extremity concerning for cellulitis likely from gram-positive skin lawrence such as strep. 2patient with a penicillin allergy that will limit the number of antibiotics safe to use. 3 patient advised again Theo wrap to keep some of the swelling down 4patient urine culture has been finalized with VRE and E. coli 5-patient to continue with daptomycin and Rocephin has been started on Lasix drip by nephrology hopefully will help get some of the swelling down Dictation was produced using [employer] dictation software. please excuse any grammatical, word or spelling errors. Time with Patient: Less than 30
--- NOTE | 2024-04-28 14:47 | PN ---
PROGRESS NOTE A female with severe hyponatremia. Currently, her sodium is back up to 127, potassium 3.7, BUN is 19, creatinine 1.05, GFR is down to 63. She feels better. Surgery has seen her for possible stitch removal and right SALVADOR bag drainage for possibly removing it. She is edematous in her extremities and abdomen. Afebrile, mildly tachycardic. She was given Lasix and 1 dose of Aldactone 25 twice a day. Sodium is 127. White count 6.18. Hyponatremia. Fluid management is continuing. Surgery possibly to remove sutures and the right SALVADOR bag removed. See what the Surgeon says. Prognosis guarded. MMODL / IJN: [id number] /
--- NOTE | 2024-04-28 14:49 | PN ---
PROGRESS NOTE SUBJECTIVE: A 44-year-old white female, remains on Rocephin and daptomycin per Dr. Kaba for monitoring for hyponatremia. Hemoglobin has increased from 7.6 to 8.4. Sodium is up to 131, potassium 3.6, GFR is delayed, it is 63. Urine culture shows Enterobacter faecalis. Waiting for Dr. Kaba's recommendations on antibiotics prior to being discharged home. LFTs unchanged. Hemoglobin is up to 8.4. Admitted here and blood pressure is stable. No significant hypertension. She is on IV Lasix yesterday, Aldactone. No other medication. OBJECTIVE: VITAL SIGNS: Blood pressure is 93/61, temp 97.9, pulse 84, respiratory rate 16 to 18, FiO2 of 21. CARDIOVASCULAR: S1, S2. LUNGS: Decreased breath sounds. ABDOMEN: Soft. EXTREMITIES: 2 to 3+ edema. SKIN: No rash. Has ascites, history of liver cirrhosis, E coli, group D enterococci, UTI, chronic anemia, ascites, hypervolemic hyponatremia. Sodium is now 131. On . Remains on Aldactone, Lasix p.r.n., history of GI bleed, history of esophageal varices, COPD, bipolar, thrombocytopenia, possibly more Lasix. Continue on antibiotics per Dr. Kaba. Await for recommendations. MMODL / IJN: [id number] /
--- NOTE | 2024-04-28 14:51 | PN ---
PROGRESS NOTE A 44-year-old female. Surgery has been seen for a right SALVADOR drainage, which has a small amount of ascitic fluid coming from it. Sodium is up to 133. She has been given Lasix for her edema. She has cholecystitis, status post cholecystectomy, alcoholic liver cirrhosis with abdominal ascites, hyponatremia, third-spacing of fluids. They want to take sutures out, so edema improves. Wait for Renal doctor and Infectious Disease doctors to treat UTI and cellulitis of the left leg and to clear for discharge. She can up and ambulate. Hemoglobin is increased up to 9.2. Sodium is up to 132, potassium 3.8, BUN is 20, creatinine 1.6 with a GFR keeps worsening down to 41. Prognosis guarded. Possibly discharge home soon if cleared by Infectious Disease and Renal Physician. MMODL / IJN: [id number] /
[2024-04-28 17:07] VITALS: BP 108/68; PULSE 103
[2024-04-28] MEDS: NITROFURANTOIN MONOHYD/M-CRYST 100 MG CAP PO STA (19:11)
--- NOTE | 2024-04-28 20:02 | P.PN ---
Subjective Progress Note Date: 04/28/24 This is a 44-year-old female with known history of cirrhosis of the liver, patient quit drinking alcohol in the last 6 months. Patient does have history of chronic fluid retention and ascites related to her chronic liver disease, and she has history of chronic hyponatremia. Her sodium has always been in the range of 1 20-1 26 at best over the last few months. And the patient had multiple admissions with hyponatremia. Apparently the patient came to the hospital yesterday because outpatient blood test showed a sodium of 114. Patient had no major symptoms except for generalized weakness no symptoms of seizures or seizures activity. Patient was seen in the ER, and the recommendation was to start the patient on 3% saline and admit the patient to the ICU for 3% saline infusion. She did receive 3% saline, and her sodium this morning is 119. Her mental status seems to be very appropriate. Patient is hemodynamically stable, she is on diuretics at home in the form of Aldactone. Patient had no previous history of malignancy. And in the past her low sodium has been diagnosed to be related to her liver disease and possibly underlying SIADH. Patient was recently in the hospital for cholecystectomy this was done by Dr. José Miguel wynn, and she continues to have some persistent oozing and dr brian from her abdominal wall at the site of her SALVADOR drain. Patient denies any shortness of breath no cough no wheezing no chest pain. CBC is relatively normal basic metabolic profile showed a sodium of 119 bicarb is 13 patient received sodium bicarb as ordered by nephrology her BUN is 26 creatinine 1.06. Liver enzymes noted her ammonia level is 39 Progress note dated April 18, 2024. 44-year-old female seen yesterday in consultation. She has a history of cirrhosis, chronic alcohol abuse, and a recent admission to the hospital, at which time, she was being treated for hyponatremia. The patient was readmitted to the hospital, with hyponatremia, on April 16, with a sodium of 114. Today, her sodium is 123. She is currently on 2 L of oxygen. The patient is receiving norepinephrine at 0.02 mcg/kg/min. She is also getting saline at 20 cc an hour. On her previous admission, the patient had refractory hyponatremia, despite aggressive treatment with 3% saline, and other medications. Current laboratory data includes a white count 7.2, hemoglobin 8.7, hematocrit 26.7, and platelet count of 131,000. Sodium 123, potassium 3.9, chlorides 97, CO2 18, BUN 27, and creatinine 1.09. Progress note dated April 19, 2024. 44-year-old female seen again in room 262. Her current sodium is 126. For a brief period of time, she was back on 3% saline. Currently, she is on room air. She is not receiving any IV fluids. Clinically, she has been very stable, and she has had an uneventful night. White count 6.5, hemoglobin 8.5, hematocrit 26.5, and platelet count of 125,000. Sodium 126, potassium 3.7, chlorides 100, CO2 19, BUN 28, creatinine 1.16. Albumin is 2.1. Progress note dated April 20, 2024. 44-year-old female seen in room 262. She is on room air. She is not receiving any IV fluids. Today sodium is 125. She is asymptomatic. White count is 9.1, hemoglobin 8.4, hematocrit 27.4, with a platelet count of 122,000. Sodium 125, potassium 3.9, chlorides 101, CO2 17, BUN 27, and creatinine 1.20. Glucose is 120. Calcium is 7.8. Albumin is 2. Progress note dated April 21, 2024. The patient is seen today in room 519. The patient is on room air. She is not receiving any IV fluids. Room air saturation is 97%. Her sodium this morning was 124. She was admitted with a diagnosis of hyponatremia. She has been in and out of the intensive care unit, for hypotension, and hyponatremia. Labs today include a white count of 8, hemoglobin 8.1, hematocrit 25, platelet count 118,000. Sodium 124, potassium 3.6, chlorides 100, CO2 20, BUN 22, creatinine 1.13. The patient continues on Ancef, as per infectious diseases. Progress note dated April 22, 2024. 44-year-old female seen today in room 519. The patient is on room air. No IV fluids. Yesterday sodium was 124. No sodium yet back on the chart today. The patient has no new complaints. He was admitted primarily for hyponatremia. Urine culture showed evidence of group D Enterococcus, and gram-negative bacilli. She continues on vancomycin as per infectious diseases. Progress note dated April 23, 2024. 44-year-old female seen in room 519. The patient is currently on room air. The patient is not receiving any IV fluids. The patient continues on cefepime and vancomycin. Her room air saturation is 94%. Today's sodium is 125. Yesterday sodium was 129. Sodium 125, potassium 3.8, chlorides 104, CO2 15, anion gap 6, BUN 21, creatinine 0.91. Calcium is 7.9. Urine is positive for group D Enterococcus. On 04/25/2024, the patient is being seen for a follow-up. Doing well. Abdomen is distended and the patient has minimal amount of leakage from the previous surgical site from a previous cholecystectomy that was done on 03/21/2024. The leakage is still from the SALVADOR insertion drain site. No nausea. No vomiting. No chest pain or abdominal pain. She is on Aldactone 25 mg p.o. twice daily. She is also on demeclocycline. In terms of antibiotic coverage, she remains on a combination of IV cefepime and vancomycin. The patient had a E. coli/Enterococcus group to urinary tract infection. No altered mentation. Most recent sodium levels at 127 with a BUN of 19 and a creatinine of 1.05. WBC count is at 6.1 with a hemoglobin of 7.6. 04/26/2024, the patient is doing well. She is having some abdominal distention. Minimal leakage from the previously inserted surgical SALVADOR site. Remains on demeclocycline. Given IV Lasix yesterday. Remains on Aldactone. No altered mentation. Remains on a combination of Rocephin and daptomycin. Sodium level from today is at 131 with a potassium level of 3.6. Serum bicarb is 18. BUN is 20 with a creatinine of 1.3. Liver function tests are essentially stable and unchanged. The patient's white cell count is at 5.4 and the patient's hemoglobin is at 8.4. Remains on midodrine. Blood pressure is stable. No s ignificant hypotension. Pulse ox 97% on room air oxygen. On today's evaluation of 04/27/2024. The patient has no specific complaints. She is having some increased swelling. Sodium levels at 132. BUN is at 20 with a creatinine of 1.6. Potassium is at 3.8. Nephrology on the case. The white cell count of 5.9 with hemoglobin 9.2. The patient is on Aldactone 50 mg p.o. twice daily. He will receive another dose of Lasix 40 mg IV push prior nephrology recommendation. She is also on demeclocycline. No altered mentation. She remains on room air oxygen. Blood pressure stable for now. No significant hypotension. On 04/28/2024, the patient is having some issues with renal insufficiency. The patient has developed steady rise in the creatinine the creatinine is currently at 2.1. Nephrology on the case. At the same time, sodium levels at 132. The patient remains on the petrosectomy. This is stable as the sodium level. The patient is also noted to have increased volume status and nephrology evaluated the patient and the patient was started on Lasix drip at 5 mg an hour. Labs are being monitored very closely. The patient is afebrile. She has abdominal distention which is also affecting her breathing and is making her short of breath. Objective - Vital Signs Vital signs: Vital Signs Temp 98.4 F 04/28/24 13:27 Pulse 103 H 04/28/24 17:06 Resp 22 04/28/24 13:27 BP 108/68 04/28/24 17:06 Pulse Ox 93 L 04/28/24 13:27 FiO2 21 04/26/24 07:43 Intake & Output 04/28/24 04/28/24 04/29/24 06:59 18:59 06:59 Intake Total 220 443 Output Total 450 Balance 220 -7 Weight 137 kg Intake: Intake, IV Titration 115 Amount DAPTOmycin 300 mg In 50 Sodium Chloride 0.9% 50 ml @ 100 mls/hr IVPB Q24H [facility] Rx#:[id number] Furosemide 100 mg In 15 Sodium Chloride 0.9% 90 ml @ 5 MG/HR 5 mls/hr IV .Q20H [facility] Rx#:[id number] cefTRIAXone 2 gm In 50 Sodium Chloride 0.9% 50 ml @ 100 mls/hr IVPB Q24HR [facility] Rx#:[id number] Oral 220 328 Output: Urine 450 Uretheral ([place]) 450 Other: Voiding Method Toilet Toilet # Voids 3 - Exam No acute distress, oriented 3. Respiratory distress. Currently on room air. HEENT examination is grossly unremarkable. Mucous membranes are moist. No oral lesions. Neck supple. Full range of motion. No adenopathy thyromegaly or neck vein distention. Cardiovascular examination reveals regular rhythm rate. S1-S2 normal. No S3 or S4. No discernible murmur noted. Lungs reveal clear breath sounds. Breath sounds are equal bilaterally. No adventitious lung sounds including wheezes rhonchi or crackles. Abdomen soft bowel sounds are heard. No masses or tenderness. The patient has ascites. The patient has a bag collecting the fluid from the previous SALVADOR inser tion site. Output has dropped and the patient is producing approximately 100 to 200 cc on a 24-hour.. Extremities are intact. No cyanosis clubbing or edema. Skin is without rash or lesion. Neurologic examination is brief but nonfocal. - Labs CBC & Chem 7: 04/28/24 05:12 04/28/24 05:12 Labs: Abnormal Lab Results - Last 24 Hours (Table) 04/28/24 04/28/24 Range/Units 05:12 05:12 RBC 2.68 L (4.10-5.20) X 10*6/uL Hgb 8.6 L (12.0-15.0) g/dL Hct 28.0 L (37.2-46.3) % MCV 104.5 H (80.0-97.0) FL MCH 32.1 H (27.0-32.0) pg MCHC 30.7 L (32.0-37.0) g/dL RDW 21.8 H (11.5-14.5) % Plt Count 111 L (140-440) X 10*3/uL Immature Gran # 0.06 H (0.00-0.04) X 10*3/uL Sodium 132 L (135-145) mmol/L Carbon Dioxide 16.8 L (21.6-31.8) mmol/L Creatinine 2.1 H (0.6-1.5) mg/dL Est GFR (CKD-EPI) 29 L (>=60) Calcium 8.1 L (8.7-10.3) mg/dL Alkaline Phosphatase 174 H (41-126) U/L Total Protein 4.4 L (6.2-8.2) g/dL Albumin 2.5 L (3.8-4.9) g/dL Albumin/Globulin Ratio 1.32 L (1.60-3.17) Ratio Assessment and Plan Plan: Hypervolemic hyponatremia, improved. The sodium level is at 132 and the patient is currently on demeclocycline, remains on Aldactone. Patient continues to have massive volume overload and the patient will be started on Lasix drip Acute kidney injury the creatinine is up to 2.1 Ascites History of liver cirrhosis, secondary to chronic alcohol abuse. E. coli/group D enterococcal urinary tract infection. History of chronic anemia. Ascites, minimal leak from the previously SALVADOR insertion site History of recent cholecystectomy. History of GI bleed, February 19, 2024, requiring EGD. History of esophageal varices. History of COPD. History of bipolar disorder. History of chronic thrombocytopenia. Plan: Clinically stable Hemodynamically stable Continue demeclocycline Monitor sodium level Continue Aldactone Lasix drip Monitor electrolytes including the renal function IV Rocephin and daptomycin General surgery is on the case Nephrology on the case Infectious disease on the case
[2024-04-29] MEDS ORDERED: FUROSEMIDE 40 MG TAB PO SCH (09:00)
== END 2024-04-28 19:36 | disposition home or self-care (01) | DRG 426 ==
LOC: EC 11:46 → 2SICU 14:11 → 5NMEDONC 04-21 02:55
PROVIDERS: ADMIT Family Medicine; ATTEND Family Medicine
DX: E87.1 Hypo-osmolality and hyponatremia (principal); E87.5 Hyperkalemia; E66.01 Morbid (severe) obesity due to excess calories; Z68.43 Body mass index [BMI] 50.0-59.9, adult; J44.89 Other specified chronic obstructive pulmonary disease; F17.200 Nicotine dependence, unspecified, uncomplicated; N39.0 Urinary tract infection, site not specified; E87.4 Mixed disorder of acid-base balance; N17.9 Acute kidney failure, unspecified; B95.2 Enterococcus as the cause of diseases classified elsewhere; B96.20 Unspecified Escherichia coli [E. coli] as the cause of diseases classified elsewhere; N18.9 Chronic kidney disease, unspecified; L03.116 Cellulitis of left lower limb; F31.9 Bipolar disorder, unspecified; I95.9 Hypotension, unspecified; K70.31 Alcoholic cirrhosis of liver with ascites; D50.9 Iron deficiency anemia, unspecified; I50.33 Acute on chronic diastolic (congestive) heart failure; D69.6 Thrombocytopenia, unspecified; Z79.899 Other long term (current) drug therapy; Z79.84 Long term (current) use of oral hypoglycemic drugs; Z79.51 Long term (current) use of inhaled steroids
CPT/HCPCS: 36415; 76705; 80048; 80053; 80202; 81001; 81003; 82009; 82140; 82330; 82565; 82728; 83540; 83550; 83735; 83880; 83930; 83935; 84100; 84132; 84295; 84300; 84443; 85025; 85610; 85730; 87077; 87086; 87186; 93005; 94640; 94760; 99285

== ENCOUNTER 2024-05-03 13:17 | Inpatient (IN) | payer OTHER ==
--- NOTE | 2024-05-03 13:39 | ED ---
SOB HPI - General Source: patient, RN notes reviewed Mode of arrival: wheelchair Limitations: no limitations <Jessica Cooper - Last Filed: 05/03/24 13:38> - History of Present Illness MD Complaint: shortness of breath, cough, pain with inspiration, "asthma attack" -: days(s) Severity: severe Severity scale (1-10): 10 Quality: aching Consistency: constant Improves With: nothing Worsens With: exertion Known History Of: COPD, asthma, other (Cirrhosis) Context: recent URI, anxiety, recent illness Associated Symptoms: denies other symptoms Treatments Prior to Arrival: none <Wilberto Cardenas - Last Filed: 05/07/24 17:32> - General Chief Complaint: Shortness of Breath Stated Complaint: whole body swelling Time Seen by Provider: 05/03/24 13:35 - History of Present Illness Initial Comments: Nito notenetta is a 44-year-old female who presents emergency department chief complaint of bilateral lower extremity edema and shortness of breath. Patient states that she was recently admitted to the hospital and discharged over the weekend and was treated for cellulitis and edema. (Jessica Cooper) This is a 41-year-old female with severe lower extremity edema and swelling likely cellulitis with drainage, patient also has severe shortness of breath and significant small abdomen with recent gallbladder surgery (Wilberto Cardenas) - Related Data Home Medications Medication Instructions Recorded Confirmed Cariprazine HCl [Vraylar] 3 mg PO HS 03/20/23 05/03/24 Pantoprazole [Protonix] 40 mg PO DAILY 03/20/23 05/03/24 QUEtiapine [SEROquel] 100 mg PO HS 03/20/23 05/03/24 Gabapentin [Neurontin] 300 mg PO TID 04/16/24 05/03/24 Ipratropium-Albuterol Nebulize 3 ml INHALATION RT-TID 04/16/24 05/03/24 [Duoneb 0.5 mg-3 mg/3 ml Soln] Tiotropium 2.5 Mcg/Puff [Spiriva 1 puff INHALATION RT-DAILY 04/16/24 05/03/24 Respimat 2.5 Mcg] Midodrine HCl [ProAmatine] 10 mg PO QID@06,,14,18 05/03/24 05/03/24 Nitrofurantoin Monohyd/M-Cryst 100 mg PO DAILY 05/03/24 05/03/24 [Macrobid] Previous Rx's Medication Instructions Recorded Budesonide-Formot 160-4.5 Mcg 2 puff INHALATION RT-BID 30 Days 02/24/24 [Symbicort 160-4.5 Mcg Inhaler] #1 each Dapagliflozin Propanediol [Farxiga] 5 mg PO DAILY 90 Days #90 tab 04/08/24 Sodium Bicarbonate Tab 650 mg PO DAILY 90 Days #90 tab 04/08/24 Furosemide [Lasix] 40 mg PO DAILY 30 Days #30 tab 04/28/24 oxyCODONE HCL [OxyIR] 5 mg PO Q6HR PRN 3 Days #10 tab 04/28/24 Allergies Allergy/AdvReac Type Severity Reaction Status Date / Time Penicillins Allergy Anaphylaxis Verified 05/03/24 18:39 Review of Systems ROS Other: All systems not noted in ROS Statement are negative. <Jessica Cooper - Last Filed: 05/03/24 13:38> ROS Other: All systems not noted in ROS Statement are negative. <Wilberto Cardenas - Last Filed: 05/07/24 17:32> ROS Statement: Those systems with pertinent positive or pertinent negative responses have been documented in the HPI. Past Medical History Past Medical History: GERD/Reflux, Liver Disease Additional Past Medical History / Comment(s): retains fluid,anemia,cirrohis of liver non alcoholic, occ bloody stool, ulcer, bipolar, low sodium levels History of Any Multi-Drug Resistant Organisms: VRE Date of last positivie culture/infection: 04/20/24 MDRO Source:: urine Past Surgical History: Cholecystectomy, EPS Additional Past Surgical History / Comment(s): has had 4 scopes, paracentesis unable to get any fluid out at the time., paracentesis Past Anesthesia/Blood Transfusion Reactions: No Reported Reaction Additional Past Anesthesia/Blood Transfusion Reaction / Comment(s): 3 units of blood transfused in around february 03. Past Psychological History: Anxiety, Bipolar Smoking Status: Current some day smoker Past Alcohol Use History: Abuse Past Drug Use History: None Reported <Jessica Cooper - Last Filed: 05/03/24 13:38> General Exam Limitations: no limitations <Stieler,Jessica - Last Filed: 05/03/24 13:38> Limitations: altered mental status General appearance: alert, anxious, in distress Head exam: Present: atraumatic, normocephalic, normal inspection Eye exam: Present: normal appearance, PERRL, EOMI. Absent: scleral icterus, conjunctival injection, periorbital swelling ENT exam: Present: normal exam, mucous membranes moist Neck exam: Present: normal inspection. Absent: tenderness, meningismus, lymphadenopathy Respiratory exam: Present: normal lung sounds bilaterally. Absent: respiratory distress, wheezes, rales, rhonchi, stridor Cardiovascular Exam: Present: regular rate, normal rhythm, normal heart sounds. Absent: systolic murmur, diastolic murmur, rubs, gallop, clicks GI/Abdominal exam: Present: soft, normal bowel sounds. Absent: distended, tenderness, guarding, rebound, rigid Extremities exam: Present: normal inspection, full ROM, normal capillary refill. Absent: tenderness, pedal edema, joint swelling, calf tenderness Back exam: Present: normal inspection Neurological exam: Present: alert, oriented X3, CN II-XII intact Psychiatric exam: Present: normal affect, normal mood Skin exam: Present: warm, dry, intact, normal color. Absent: rash <Wilberto Cardenas - Last Filed: 05/07/24 17:32> - General Exam Comments Initial Comments: Visual Physical Exam Vital signs reviewed General: Well-appearing, nontoxic, no acute distress. Head: Normocephalic, atraumatic Eyes: PERRLA, EOMI ENT: Airway patent Chest: Nonlabored breathing Skin: No visual rash, normal skin tone Neuro: Alert and oriented 3 Musculoskeletal: No gross abnormalities (Stieler,Jessica) Course <Wilberto Cardenas - Last Filed: 05/07/24 17:32> Vital Signs 05/03/24 05/03/24 05/03/24 13:31 17:46 18:43 Temperature 98.0 F Pulse Rate 112 H 93 90 Pulse Rate [ Pulse Oximetery ] Respiratory 18 18 18 Rate Blood Pressure 128/81 164/89 107/74 Blood Pressure [Right Arm] O2 Sat by Pulse 94 L 94 L 95 Oximetry 05/03/24 05/04/24 05/04/24 21:09 00:45 05:25 Temperature Pulse Rate 88 98 86 Pulse Rate [ Pulse Oximetery ] Respiratory 16 18 18 Rate Blood Pressure 118/61 131/94 96/63 Blood Pressure [Right Arm] O2 Sat by Pulse 94 L 93 L 96 Oximetry 05/04/24 05/04/24 05/04/24 09:05 10:42 11:21 Temperature 97.8 F Pulse Rate 92 82 Pulse Rate [ 85 Pulse Oximetery ] Respiratory 22 22 18 Rate Blood Pressure 96/67 111/69 Blood Pressure 99/62 [Right Arm] O2 Sat by Pulse 95 95 97 Oximetry 05/04/24 05/04/24 05/04/24 11:51 12:10 12:35 Temperature Pulse Rate Pulse Rate [ 85 86 85 Pulse Oximetery ] Respiratory 16 16 16 Rate Blood Pressure Blood Pressure 101/65 96/60 95/61 [Right Arm] O2 Sat by Pulse 95 96 96 Oximetry 05/04/24 05/04/24 05/04/24 13:01 13:47 14:16 Temperature 97.9 F Pulse Rate 98 89 86 Pulse Rate [ Pulse Oximetery ] Respiratory 20 20 22 Rate Blood Pressure 118/70 110/66 110/60 Blood Pressure [Right Arm] O2 Sat by Pulse 96 98 97 Oximetry 05/04/24 05/04/24 05/04/24 14:50 17:14 17:44 Temperature 98.0 F Pulse Rate 73 95 Pulse Rate [ 86 Pulse Oximetery ] Respiratory 20 20 17 Rate Blood Pressure 100/57 108/66 Blood Pressure 122/65 [Right Arm] O2 Sat by Pulse 95 98 98 Oximetry - Reevaluation(s) Reevaluation #1: 05/03/24 18:28 medical record is reviewed (Wilberto Cardenas) Reevaluation #2: 05/03/24 18:29 patient symptoms are worse (Wilberto Cardenas) Reevaluation #3: 05/03/24 18:29 patient symptoms are improved (Wilberto Cardenas) Reevaluation #4: Was pt. sent in by a medical professional or institution (, PA, EVIDENCE SPECIALIST, urgent care, hospital, or alf...) When possible be specific @ -no Did you speak to anyone other than the patient for history (EMS, parent, family, police, friend...)? What history was obtained from this source @ -no Did you review nursing and triage notes (agree or disagree)? Why? @ -agree Are old charts reviewed (outside hosp., previous admission, EMS record, old EKG, old radiological studies, urgent care reports/EKG's, alf records)? Report findings @ -yes Differential Diagnosis (chest pain, altered mental status, abdominal pain women, abdominal pain men, vaginal bleeding, weakness, fever, dyspnea, syncope, headache, dizziness, GI bleed, back pain, seizure, CVA, palpatations, mental health, musculoskeletal)? @ -prior EKG interpreted by me (3pts min.). @ -yes X-rays interpreted by me (1pt min.). @ -yes n positive for pneumonia CT interpreted by me (1pt min.). @ -Yes positive for pneumonia and ascites U/S interpreted by me (1pt. min.). @ -no What testing was considered but not performed or refused? (CT, X-rays, U/S, labs)? Why? @ -none What meds were considered but not given or refused? Why? @ -none Did you discuss the management of the patient with other professionals (professionals i.e. , PA, EVIDENCE SPECIALIST, lab, RT, psych nurse, clinical social work therapist, die hardener, teacher, chief operations officer, nurse outreach case manager)? Give summary @ -no Was smoking cessation discussed for >3mins.? @ -no Was critical care preformed (if so, how long)? @ -no Were there social determinants of health that impacted care today? How? (Homelessness, low income, unemployed, alcoholism, drug addiction, transportation, low edu. Level, literacy, decrease access to med. care, [facility], rehab)? @ -none Was there de-escalation of care discussed even if they declined (Discuss DNR or withdrawal of care, Hospice)? DNR status @ -no What co-morbidities impacted this encounter? (DM, HTN, Smoking, COPD, CAD, Cancer, CVA, ARF, Chemo, Hep., AIDS, mental health diagnosis, sleep apnea, mor bid obesity)? @ -none Was patient admitted / discharged? Hospital course, mention meds given and [place], prescriptions, significant lab abnormalities, going to OR and other pertinent info. @ - 44 female to the ER for evaluation patient will be admitted for pneumonia significant lower extremity edema and cellulitis significant abdominal pain and swelling with postoperative pain Admitted Undiagnosed new problem with uncertain prognosis? @ -no Drug Therapy requiring intensive monitoring for toxicity (Heparin, Nitro, Insulin, Cardizem)? @ -no Were any procedures done? @ -no Diagnosis/symptom? @ -Pneumonia leg edema and postop pain Acute, or Chronic, or Acute on Chronic? @ -Acute Uncomplicated (without systemic symptoms) or Complicated (systemic symptoms)? @ -Complicated Side effects of treatment? @ -no Exacerbation, Progression, or Severe Exacerbation? @ -exacerbation Poses a threat to life or bodily function? How? (Chest pain, [place], [place], pneumonia, PE, COPD, DKA, ARF, appy, cholecystitis, CVA, Diverticulitis, Homicidal, Suicidal, threat to staff... and all critical care pts) @ -yes negative for acute disease (Wilberto Cardenas) Reevaluation #5: Differential Dyspnea: Coronary syndrome, arrhythmia, tamponade, asthma, COPD, pulmonary embolism, pneumonia, pneumothorax, pulmonary effusion, anaphylaxis, diabetic ketoacidosis, flailed chest, pulmonary contusion, diaphragmatic rupture, anemia, neuromuscular, this is not meant to be an all-inclusive list. (Wilberto Cardenas) Medical Decision Making <Jessica Cooper - Last Filed: 05/03/24 13:38> - Lab Data Result diagrams: 05/07/24 04:29 05/07/24 04:29 <Wilberto Cardenas - Last Filed: 05/07/24 17:32> - Medical Decision Making I completed the quick note portion of this chart signed Jessica Cooper PA-C (Jessica Cooper) 44 female to the ER for evaluation patient will be admitted for pneumonia s ignificant lower extremity edema and cellulitis significant abdominal pain and swelling with postoperative pain (Wilberto Cardenas) - Lab Data Lab Results 05/03/24 05/03/24 05/03/24 Range/Units 16:21 16:21 16:21 WBC 7.3 (3.8-10.6) k/uL RBC 3.04 L (3.80-5.40) m/uL Hgb 10.0 L D (11.4-16.0) gm/dL Hct 31.4 L (34.0-46.0) % MCV 103.3 H (80.0-100.0) fL MCH 32.8 (25.0-35.0) pg MCHC 31.7 (31.0-37.0) g/dL RDW 21.9 H (11.5-15.5) % Plt Count 124 L (150-450) k/uL MPV 9.5 Neutrophils % 72 % Lymphocytes % 16 % Monocytes % 5 % Eosinophils % 5 % Basophils % 0 % Neutrophils # 5.2 (1.3-7.7) k/uL Lymphocytes # 1.1 (1.0-4.8) k/uL Monocytes # 0.4 (0-1.0) k/uL Eosinophils # 0.3 (0-0.7) k/uL Basophils # 0.0 (0-0.2) k/uL Manual Slide Review Performed Polychromasia Present Hypochromasia Moderate Anisocytosis Moderate Macrocytosis Marked A PT 12.0 (10.0-12.5) sec INR 1.1 (<1.2) APTT 28.7 (22.0-30.0) sec Sodium 133 L (137-145) mmol/L Potassium 3.9 (3.5-5.1) mmol/L Chloride 107 (98-107) mmol/L Carbon Dioxide 17 L (22-30) mmol/L Anion Gap 9 mmol/L BUN 35 H (7-17) mg/dL Creatinine 1.98 H (0.52-1.04) mg/dL Est GFR (CKD-EPI)AfAm 35 (>60 ml/min/1.73 sqM) Est GFR (CKD-EPI)NonAf 30 (>60 ml/min/1.73 sqM) Glucose 124 H (74-99) mg/dL Plasma Lactic Acid Adolfo (0.7-2.0) mmol/L Calcium 8.4 (8.4-10.2) mg/dL Magnesium 1.6 (1.6-2.3) mg/dL Total Bilirubin 0.6 (0.2-1.3) mg/dL AST 37 H (14-36) U/L ALT 16 (4-34) U/L Alkaline Phosphatase 175 H (38-126) U/L Ammonia (<30) umol/L Troponin I (0.000-0.034) ng/mL NT-Pro-B Natriuret Pep 266 pg/mL Total Protein 4.8 L (6.3-8.2) g/dL Albumin 2.3 L (3.5-5.0) g/dL Lipase (23-300) U/L 05/03/24 05/03/24 05/03/24 Range/Units 16:21 16:21 16:21 WBC (3.8-10.6) k/uL RBC (3.80-5.40) m/uL Hgb (11.4-16.0) gm/dL Hct (34.0-46.0) % MCV (80.0-100.0) fL MCH (25.0-35.0) pg MCHC (31.0-37.0) g/dL RDW (11.5-15.5) % Plt Count (150-450) k/uL MPV Neutrophils % % Lymphocytes % % Monocytes % % Eosinophils % % Basophils % % Neutrophils # (1.3-7.7) k/uL Lymphocytes # (1.0-4.8) k/uL Monocytes # (0-1.0) k/uL Eosinophils # (0-0.7) k/uL Basophils # (0-0.2) k/uL Manual Slide Review Polychromasia Hypochromasia Anisocytosis Macrocytosis PT (10.0-12.5) sec INR (<1.2) APTT (22.0-30.0) sec Sodium (137-145) mmol/L Potassium (3.5-5.1) mmol/L Chloride (98-107) mmol/L Carbon Dioxide (22-30) mmol/L Anion Gap mmol/L BUN (7-17) mg/dL Creatinine (0.52-1.04) mg/dL Est GFR (CKD-EPI)AfAm (>60 ml/min/1.73 sqM) Est GFR (CKD-EPI)NonAf (>60 ml/min/1.73 sqM) Glucose (74-99) mg/dL Plasma Lactic Acid Adolfo 2.0 (0.7-2.0) mmol/L Calcium (8.4-10.2) mg/dL Magnesium (1.6-2.3) mg/dL Total Bilirubin (0.2-1.3) mg/dL AST (14-36) U/L ALT (4-34) U/L Alkaline Phosphatase (38-126) U/L Ammonia (<30) umol/L Troponin I <0.012 (0.000-0.034) ng/mL NT-Pro-B Natriuret Pep pg/mL Total Protein (6.3-8.2) g/dL Albumin (3.5-5.0) g/dL Lipase 217 (23-300) U/L 05/03/24 Range/Units 17:34 WBC (3.8-10.6) k/uL RBC (3.80-5.40) m/uL Hgb (11.4-16.0) gm/dL Hct (34.0-46.0) % MCV (80.0-100.0) fL MCH (25.0-35.0) pg MCHC (31.0-37.0) g/dL RDW (11.5-15.5) % Plt Count (150-450) k/uL MPV Neutrophils % % Lymphocytes % % Monocytes % % Eosinophils % % Basophils % % Neutrophils # (1.3-7.7) k/uL Lymphocytes # (1.0-4.8) k/uL Monocytes # (0-1.0) k/uL Eosinophils # (0-0.7) k/uL Basophils # (0-0.2) k/uL Manual Slide Review Polychromasia Hypochromasia Anisocytosis Macrocytosis PT (10.0-12.5) sec INR (<1.2) APTT (22.0-30.0) sec Sodium (137-145) mmol/L Potassium (3.5-5.1) mmol/L Chloride (98-107) mmol/L Carbon Dioxide (22-30) mmol/L Anion Gap mmol/L BUN (7-17) mg/dL Creatinine (0.52-1.04) mg/dL Est GFR (CKD-EPI)AfAm (>60 ml/min/1.73 sqM) Est GFR (CKD-EPI)NonAf (>60 ml/min/1.73 sqM) Glucose (74-99) mg/dL Plasma Lactic Acid Adolfo (0.7-2.0) mmol/L Calcium (8.4-10.2) mg/dL Magnesium (1.6-2.3) mg/dL Total Bilirubin (0.2-1.3) mg/dL AST (14-36) U/L ALT (4-34) U/L Alkaline Phosphatase (38-126) U/L Ammonia 37 H (<30) umol/L Troponin I (0.000-0.034) ng/mL NT-Pro-B Natriuret Pep pg/mL Total Protein (6.3-8.2) g/dL Albumin (3.5-5.0) g/dL Lipase (23-300) U/L Disposition <Jessica Cooper - Last Filed: 05/03/24 13:38> Is patient prescribed a controlled substance at d/c from ED?: No Time of Disposition: 18:31 <Wilberto Cardenas - Last Filed: 05/07/24 17:32> Clinical Impression: Left leg cellulitis, Bilateral leg edema, Acute pulmonary edema, Congestive heart failure, Acute exacerbation of chronic obstructive pulmonary disease, Community acquired pneumonia Disposition: ADMITTED IP TO THIS HOSP Condition: Serious
--- NOTE | 2024-05-03 15:14 | XR ---
EXAMINATION TYPE: XR chest 2V DATE OF EXAM: 05/03/2024 2:14 PM CLINICAL INDICATION: Female, 44 years old with history of difficulty breathing; [facility] COMPARISON: None TECHNIQUE: XR chest 2V Frontal view of the chest. FINDINGS: Lungs/Pleura: Airspace opacities project over the spine on lateral view. There is no evidence of pleu ral effusion, or pneumothorax. Pulmonary vascularity: Unremarkable. Heart/mediastinum: Cardiomediastinal silhouette is unremarkable. Musculoskeletal: No acute osseous pathology. IMPRESSION: Airspace opacities projecting over the spine correlate for pneumonia [facility], , 05/03/2024 3:12 PM
[2024-05-03 16:37] LABS: Anisocytosis Moderate; Basophils % (A) 0 %; Eosinophils # (A) 0.3 k/uL (0-0.7); Eosinophils % (A) 5 %; HCT 31.4 % (34.0-46.0); Hypochromasia Moderate; Lymphocytes # (A) 1.1 k/uL (1.0-4.8); Lymphocytes % (A) 16 %; MCH 32.8 pg (25.0-35.0); MCHC 31.7 g/dL (31.0-37.0); MCV 103.3 fL (80.0-100.0); Macrocytosis Marked; Mean Platelet Volume 9.5; Monocytes # (A) 0.4 k/uL (0-1.0); Monocytes % (A) 5 %; Neutrophils # (A) 5.2 k/uL (1.3-7.7); Neutrophils % (A) 72 %; Platelet Count 124 k/uL (150-450); RBC 3.04 m/uL (3.80-5.40); RDW 21.9 % (11.5-15.5); WBC 7.3 k/uL (3.8-10.6)
[2024-05-03 16:42] LABS: ALT 16 U/L (4-34); AST 37 U/L (14-36); African American GFR (CKD) 35 (>60 ml/min/1.73 sqM); Albumin 2.3 g/dL (3.5-5.0); Alkaline Phosphatase 175 U/L (38-126); Anion Gap 9 mmol/L; Blood Urea Nitrogen 35 mg/dL (7-17); Calcium 8.4 mg/dL (8.4-10.2); Carbon Dioxide 17 mmol/L (22-30); Chloride 107 mmol/L (98-107); Glucose 124 mg/dL (74-99); Magnesium 1.6 mg/dL (1.6-2.3); Non-African American GFR(CKD) 30 (>60 ml/min/1.73 sqM); Potassium 3.9 mmol/L (3.5-5.1); Sodium 133 mmol/L (137-145); Total Bilirubin 0.6 mg/dL (0.2-1.3); Total Protein 4.8 g/dL (6.3-8.2)
[2024-05-03 16:43] LABS: INR 1.1 (<1.2); Partial Thromboplastin Time 28.7 sec (22.0-30.0)
[2024-05-03 16:55] LABS: NT-Pro-B-Type Natriuretic Pept 266 pg/mL
[2024-05-03 17:02] LABS: Polychromasia Present
[2024-05-03] MEDS: HYDROmorphone 1 MG/ML 1 ML SYRINGE IVP PRN (17:57)
[2024-05-03] MEDS ORDERED: ONDANSETRON 4 MG/2 ML VIAL IVP PRN (18:24)
[2024-05-03] MEDS ORDERED: NALOXONE 0.4 MG/ML 1 ML VIAL IV PRN (18:24)
[2024-05-03] MEDS: AZITHROMYCIN 500 MG in SODIUM CHLORIDE 0.9% 250 ML IVPB SCH (18:51)
[2024-05-03] MEDS: SODIUM CHLORIDE 0.9% 1,000 ML IV SCH (19:07)
--- NOTE | 2024-05-03 20:59 | CT ---
EXAMINATION TYPE: CT abdomen pelvis wo con DATE OF EXAM: 05/03/2024 COMPARISON: CT abdomen and pelvis 02/18/2024 INDICATION: c/o bilateral lower leg weeping edema DLP: 1877.4 mGycm, Automated exposure control for dose reduction was used. CONTRAST: 0 mL of Isovue 300. Study performed without Oral Contrast TECHNIQUE: Axial images were obtained from above the diaphragm to the pubic rami in the axial plane a t 5 mm thick sections. Reconstructed images are reviewed on the computer in the coronal plane. FINDINGS: Limited CT sections are obtained the lung bases. There is a right lower lobe consolidation. Correlat e for pneumonia.. CT ABDOMEN: Diffuse subcutaneous edema is evident. Ascites is evident within the intraperitoneal abdo men. This is new from comparison. Liver: Normal Spleen: Enlarged measuring 15.3 cm. Normal less than 12.5 cm. Pancreas: Normal Adrenal glands: The adrenal glands are normal. Gallbladder: Not clearly identified. This appears to be surgically absent. Kidneys: No masses are evident. No hydronephrosis is present. No cysts are present. No renal stone s are evident. Aorta: Vascular calcification is within the aorta. Inferior vena cava: Normal. CT PELVIS: Extensive soft tissue edema is present through the pelvis and into the thighs. This is new from comparison study Loops of bowel within the abdomen and pelvis are normal. The study is without oral contrast limit ing evaluation. Appendix: Not clearly identified. No dilated tubular structure or inflammatory change is evident. Urinary bladder: Normal. Genitourinary structures: Uterus appears small. Adnexa appear unremarkable Osseous structures: There appears to be a large lytic area with septations within the right iliac win g. This appears stable from the comparison study. L5 spondylolysis is evident. IMPRESSION: 1. Ascites. Extensive swelling is to the subcutaneous tissues. 2. Right lower lobe infiltrate. Correlate for pneumonia. 3. Splenomegaly. 4. Lytic area within the right iliac wing is nonspecific. Differential includes aneurysmal bone cyst. [facility], , 05/03/2024 8:57 PM
[2024-05-04 08:29] LABS: HCT 30.9 % (37.2-46.3); HGB 9.8 g/dL (12.0-15.0); MCHC 31.7 g/dL (32.0-37.0); Mean Platelet Volume 12.4 FL (9.5-12.2); NRBC Per 100 WBC 0 X 10*3/uL (0.00-0.01); Platelet Count 146 X 10*3/uL (140-440); RBC 3.06 X 10*6/uL (4.10-5.20); WBC 8.39 X 10*3/uL (4.50-10.00)
[2024-05-04 08:56] LABS: ALT 18 U/L (8-44); AST 32 U/L (13-35); Albumin 2.7 g/dL (3.8-4.9); Albumin/Globulin Ratio 1.17 Ratio (1.60-3.17); Alkaline Phosphatase 228 U/L (41-126); BUN/Creat Ratio 17.53 Ratio (12.00-20.00); Blood Urea Nitrogen 33.3 mg/dL (9.0-27.0); Calcium 8.4 mg/dL (8.7-10.3); Carbon Dioxide 18.5 mmol/L (21.6-31.8); Chloride 107 mmol/L (96-109); Globulin 2.3 g/dL (1.6-3.3); Glucose 91 mg/dL (70-110); Lipase 34 U/L (14-63); Magnesium 1.7 mg/dL (1.5-2.4); Phosphorus 4.5 mg/dL (2.4-5.1); Potassium 4.1 mmol/L (3.5-5.5); Sodium 136 mmol/L (135-145); Total Bilirubin 0.5 mg/dL (0.3-1.2)
[2024-05-04] MEDS ORDERED: GABAPENTIN 300 MG CAP PO SCH (09:00)
[2024-05-04] MEDS ORDERED: PANTOPRAZOLE 40 MG/10 ML VIAL IV SCH (09:00)
[2024-05-04 09:46] LABS: Basophils # (M) 0.42 X 10*3/uL (0.00-0.10); Eosinophils # (M) 0.59 X 10*3/uL (0.04-0.35); Lymphocytes # (M) 0.67 X 10*3/uL (0.90-5.00); Monocytes # (M) 0.25 X 10*3/uL (0.20-1.00); Myelocytes % 1 % (0-0); Neutrophils # (M) 6.38 X 10*3/uL (1.80-7.70); Neutrophils % (M) 76 %
[2024-05-04] MEDS: FUROSEMIDE 40 MG TAB PO SCH (10:31)
[2024-05-04] MEDS: PANTOPRAZOLE 40 MG TABLET PO SCH (10:31)
[2024-05-04] MEDS: DAPAGLIFLOZIN PROPANEDIOL 5 MG TABLET PO SCH (10:31)
[2024-05-04] MEDS: MIDODRINE 5 MG TAB PO SCH (10:31)
[2024-05-04] MEDS: SODIUM BICARBONATE TAB 650 MG TAB PO SCH (10:32)
[2024-05-04] MEDS: LACTULOSE 20 GM/30 ML CUP PO SCH (10:37)
[2024-05-04] MEDS: IPRATROPIUM-ALBUTEROL 3 ML NEB INHALATION SCH (12:13)
[2024-05-04] MEDS: RIFAXIMIN 550 MG TABLET PO SCH (12:28)
--- NOTE | 2024-05-04 12:47 | US ---
EXAMINATION TYPE: US paracentesis abd w/image DATE OF EXAM: 05/04/2024 11:45 AM CLINICAL INDICATION:Female, 44 years old with history of see IR consult for ordering information; COMPARISON: CT ATTENDING: Dr. Luis E Byrne PROCEDURE: Informed consent was obtained. The risks of the procedure were extensively explained incl uding risk of damage to surrounding bowel with perforation and need for additional procedures. Proced ure was performed in the ultrasound procedure suite. Ultrasound imaging of the abdomen demonstrate as citic fluid. An appropriate access site was localized to the right lower abdomen. Timeout was taken p er protocol. The skin was prepped and draped in the usual sterile fashion and then locally anesthetiz ed with 1% lidocaine. The peritoneal cavity was then accessed via a 5-Maori one-step needle/cathete r. Approximately 8200 cc of clear straw-colored fluid was obtained. Samples were sent to the lab for analysis. Postprocedural imaging of the abdomen demonstrate a minimal amount of abdominal fluid. Patient tolerated procedure well without immediate complication. Hemostasis at the procedural site w as obtained with a sterile bandage placed. The patient was monitored in the holding area following th e procedure and was subsequently discharged in stable condition. IMPRESSION: Ultrasound guided paracentesis, with approximately 8200 cc of clear straw-colored fluid drained. Path ology results pending. No immediate complications were evident. [facility], , 05/04/2024 12:45 PM
--- NOTE | 2024-05-04 13:48 | P.GSCN ---
History of Present Illness Consult date: 05/04/24 History of present illness: CHIEF COMPLAINT: Shortness of breath HISTORY OF PRESENT ILLNESS: This is a 44-year-old female who presented to hospital with complaints of generalized edema and shortness of breath. Patient had laparoscopic cholecystectomy in March [address] Corrigan. She continues to have fluid draining from the old SALVADOR drain site on the right side of the abdomen. There are sutures in place with a colostomy appliance over the area. Patient reports decrease in drainage. She is only had 30 mL out over the last 2 days. However, patient unfortunately continues to have generalized edema throughout her whole body. Sodium levels at 133 CT scan of the abdomen had reported ascites. She is scheduled to be evaluated by IR service today for paracentesis. Patient does have a known history of alcoholic liver disease. She has had recent hospitalizations for her hyponatremia and edema. She was just recently discharged on 04/28/2024 Patient seen and examined with Dr. Corrigan PAST MEDICAL HISTORY: See below PAST SURGICAL HISTORY: See below MEDICATIONS: See below ALLERGIES: See below SOCIAL HISTORY: No illicit drug use. REVIEW OF SYSTEMS: CONSTITUTIONAL: Denies fever or chills. HEENT: Denies blurred vision, vision changes, or eye pain. Denies hemoptysis CARDIOVASCULAR: Denies chest pain or pressure. RESPIRATORY: No shortness of breath. GASTROINTESTINAL: See HPI for pertinent findings HEMATOLOGIC: Denies bleeding disorders. GENITOURINARY: Denies any blood in urine or increased urinary frequency. SKIN: Denies pruitis. Denies rash. PHYSICAL EXAM: VITAL SIGNS: Reviewed GENERAL: Well-developed in no acute distress. HEENT: No sclera icterus. Extraocular movements grossly intact. Moist buccal mucosa. Head is atraumatic, normocephalic. No nasal drainage. ABDOMEN: Distended. Nontender edema noted. Minimal serous fluid noted from old SALVADOR drain site NEUROLOGIC: Alert and oriented. Cranial nerves II through XII grossly intact. LABORATORY DATA: WBC 8.39 Hgb 9.8 platelets 146 Sodium 136 potassium 4.1 creatinine 1.9 Total bilirubin 0.5 Albumin 2.7 IMAGING: CT scan abdomen pelvis reports ascites. Extensive swelling in the subcutaneous tissues. Right lower lobe infiltrate. Correlate for pneumonia. Splenomegaly. Lytic area within the right iliac wing is nonspecific. ASSESSMENT: 1. History of alcoholic liver cirrhosis and ascites. Patient had 8.2 L of fluid removed from the paracentesis today 2. Status post laparoscopic cholecystectomy in March 2024 3. Severe protein calorie malnutrition PLAN: -No surgical intervention planned -Discussed with nursing staff to remove the abdominal sutures -Continue to monitor -Ensure added for protein supplement Physician [facility] [employer] note has been reviewed by physician. Signing provider agrees with the documented findings, assessment, and plan of care. Past Medical History Past Medical History: GERD/Reflux, Liver Disease Additional Past Medical History / Comment(s): retains fluid,anemia,cirrohis of liver non alcoholic, occ bloody stool, ulcer, bipolar, low sodium levels History of Any Multi-Drug Resistant Organisms: VRE Year Discovered:: 04/20/24 MDRO Source:: urine Past Surgical History: Cholecystectomy, EPS Additional Past Surgical History / Comment(s): has had 4 scopes, paracentesis unable to get any fluid out at the time., paracentesis Past Anesthesia/Blood Transfusion Reactions: No Reported Reaction Additional Past Anesthesia/Blood Transfusion Reaction / Comm: 3 units of blood transfused in around february 03. Past Psychological History: Anxiety, Bipolar Smoking Status: Current some day smoker Past Alcohol Use History: Abuse Past Drug Use History: None Reported Medications and Allergies Home Medications Medication Instructions Recorded Confirmed Type Cariprazine HCl [Vraylar] 3 mg PO HS 03/20/23 05/03/24 History Pantoprazole [Protonix] 40 mg PO DAILY 03/20/23 05/03/24 History QUEtiapine [SEROquel] 100 mg PO HS 03/20/23 05/03/24 History Budesonide-Formot 160-4.5 Mcg 2 puff INHALATION RT-BID 30 Days 02/24/24 05/03/24 Rx [Symbicort 160-4.5 Mcg Inhaler] #1 each Dapagliflozin Propanediol [Farxiga] 5 mg PO DAILY 90 Days #90 tab 04/08/24 05/03/24 Rx Sodium Bicarbonate Tab 650 mg PO DAILY 90 Days #90 tab 04/08/24 05/03/24 Rx Gabapentin [Neurontin] 300 mg PO TID 04/16/24 05/03/24 History Ipratropium-Albuterol Nebulize 3 ml INHALATION RT-TID 04/16/24 05/03/24 History [Duoneb 0.5 mg-3 mg/3 ml Soln] Tiotropium 2.5 Mcg/Puff [Spiriva 1 puff INHALATION RT-DAILY 04/16/24 05/03/24 History Respimat 2.5 Mcg] Furosemide [Lasix] 40 mg PO DAILY 30 Days #30 tab 04/28/24 05/03/24 Rx oxyCODONE HCL [OxyIR] 5 mg PO Q6HR PRN 3 Days #10 tab 04/28/24 05/03/24 Rx Midodrine HCl [ProAmatine] 10 mg PO QID@06,10,14,18 05/03/24 05/03/24 History Nitrofurantoin Monohyd/M-Cryst 100 mg PO DAILY 05/03/24 05/03/24 History [Macrobid] Allergies Allergy/AdvReac Type Severity Reaction Status Date / Time Penicillins Allergy Anaphylaxis Verified 05/03/24 18:39 Surgical - Exam Vital Signs Temp Pulse Resp BP Pulse Ox 98.0 F 112 H 18 128/81 94 L 05/03/24 13:31 05/03/24 13:31 05/03/24 13:31 05/03/24 13:31 05/03/24 13:31 Results - Labs 05/04/24 03:40 05/04/24 03:40 Abnormal Lab Results - Last 24 Hours (Table) 05/03/24 05/03/24 05/03/24 Range/Units 16:21 16:21 17:34 RBC 3.04 L (3.80-5.40) m/uL Hgb 10.0 L D (11.4-16.0) gm/dL Hct 31.4 L (34.0-46.0) % MCV 103.3 H (80.0-100.0) fL MCHC (32.0-37.0) g/dL RDW 21.9 H (11.5-15.5) % Plt Count 124 L (150-450) k/uL MPV (9.5-12.2) FL Lymphocytes # (Manual) (0.90-5.00) X 10*3/uL Eosinophils # (Manual) (0.04-0.35) X 10*3/uL Basophils # (Manual) (0.00-0.10) X 10*3/uL Macrocytosis Marked A Sodium 133 L (137-145) mmol/L Carbon Dioxide 17 L (22-30) mmol/L BUN 35 H (7-17) mg/dL Creatinine 1.98 H (0.52-1.04) mg/dL Est GFR (CKD-EPI) (>=60) Glucose 124 H (74-99) mg/dL Calcium (8.7-10.3) mg/dL AST 37 H (14-36) U/L Alkaline Phosphatase 175 H (38-126) U/L Ammonia 37 H (<30) umol/L Total Protein 4.8 L (6.3-8.2) g/dL Albumin 2.3 L (3.5-5.0) g/dL Albumin/Globulin Ratio (1.60-3.17) Ratio 05/04/24 05/04/24 Range/Units 03:40 03:40 RBC 3.06 L (3.80-5.40) m/uL Hgb 9.8 L (11.4-16.0) gm/dL Hct 30.9 L (34.0-46.0) % MCV 101.0 H (80.0-100.0) fL MCHC 31.7 L (32.0-37.0) g/dL RDW 23.0 H (11.5-15.5) % Plt Count (150-450) k/uL MPV 12.4 H (9.5-12.2) FL Lymphocytes # (Manual) 0.67 L (0.90-5.00) X 10*3/uL Eosinophils # (Manual) 0.59 H (0.04-0.35) X 10*3/uL Basophils # (Manual) 0.42 H (0.00-0.10) X 10*3/uL Macrocytosis Sodium (137-145) mmol/L Carbon Dioxide 18.5 L (22-30) mmol/L BUN 33.3 H (7-17) mg/dL Creatinine 1.9 H (0.52-1.04) mg/dL Est GFR (CKD-EPI) 33 L (>=60) Glucose (74-99) mg/dL Calcium 8.4 L (8.7-10.3) mg/dL AST (14-36) U/L Alkaline Phosphatase 228 H (38-126) U/L Ammonia (<30) umol/L Total Protein 5.0 L (6.3-8.2) g/dL Albumin 2.7 L (3.5-5.0) g/dL Albumin/Globulin Ratio 1.17 L (1.60-3.17) Ratio Diabetes panel 05/03/24 05/04/24 Range/Units 16:21 03:40 Sodium 133 L 136 (137-145) mmol/L Potassium 3.9 4.1 (3.5-5.1) mmol/L Chloride 107 107 (98-107) mmol/L Carbon Dioxide 17 L 18.5 L (22-30) mmol/L BUN 35 H 33.3 H (7-17) mg/dL Creatinine 1.98 H 1.9 H (0.52-1.04) mg/dL Glucose 124 H 91 (74-99) mg/dL Calcium 8.4 8.4 L (8.4-10.2) mg/dL AST 37 H 32 (14-36) U/L ALT 16 18 (4-34) U/L Alkaline Phosphatase 175 H 228 H (38-126) U/L Total Protein 4.8 L 5.0 L (6.3-8.2) g/dL Albumin 2.3 L 2.7 L (3.5-5.0) g/dL Calcium panel 05/03/24 05/04/24 Range/Units 16:21 03:40 Calcium 8.4 8.4 L (8.4-10.2) mg/dL Phosphorus 4.5 (2.4-5.1) mg/dL Albumin 2.3 L 2.7 L (3.5-5.0) g/dL Pituitary panel 05/03/24 05/04/24 Range/Units 16:21 03:40 Sodium 133 L 136 (137-145) mmol/L Potassium 3.9 4.1 (3.5-5.1) mmol/L Chloride 107 107 (98-107) mmol/L Carbon Dioxide 17 L 18.5 L (22-30) mmol/L BUN 35 H 33.3 H (7-17) mg/dL Creatinine 1.98 H 1.9 H (0.52-1.04) mg/dL Glucose 124 H 91 (74-99) mg/dL Calcium 8.4 8.4 L (8.4-10.2) mg/dL Adrenal panel 05/03/24 05/04/24 Range/Units 16:21 03:40 Sodium 133 L 136 (137-145) mmol/L Potassium 3.9 4.1 (3.5-5.1) mmol/L Chloride 107 107 (98-107) mmol/L Carbon Dioxide 17 L 18.5 L (22-30) mmol/L BUN 35 H 33.3 H (7-17) mg/dL Creatinine 1.98 H 1.9 H (0.52-1.04) mg/dL Glucose 124 H 91 (74-99) mg/dL Calcium 8.4 8.4 L (8.4-10.2) mg/dL Total Bilirubin 0.6 0.5 (0.2-1.3) mg/dL AST 37 H 32 (14-36) U/L ALT 16 18 (4-34) U/L Alkaline Phosphatase 175 H 228 H (38-126) U/L Total Protein 4.8 L 5.0 L (6.3-8.2) g/dL Albumin 2.3 L 2.7 L (3.5-5.0) g/dL
[2024-05-04] MEDS: ALBUMIN HUMAN 25% 50 ML in EMPTY BAG 1 BAG IVPB SCH (14:29)
--- NOTE | 2024-05-04 14:32 | P.NPCON ---
History of Present Illness - Reason for Consult acute renal failure - History of Present Illness patient is a 44-year-old female with history of liver cirrhosis and recent hospitalizations for hyponatremia which responded well to demeclocycline. Patient was noted to be in severe volume overload during her last admission. She is admitted now with worsening edema and abdominal distention. This time patient did have paracentesis of about 8.2 L this morning. Blood pressure has been slightly on the lower side which is not new for her. serum sodium at 136. Serum creatinine increased to 1.9 this admission. It was 2.1 on 926 at time of discharge. Review of Systems as per HPI Past Medical History Past Medical History: GERD/Reflux, Liver Disease Additional Past Medical History / Comment(s): retains fluid,anemia,cirrohis of liver non alcoholic, occ bloody stool, ulcer, bipolar, low sodium levels History of Any Multi-Drug Resistant Organisms: VRE Date of last positivie culture/infection: 04/20/24 MDRO Source:: urine Past Surgical History: Cholecystectomy, EPS Additional Past Surgical History / Comment(s): has had 4 scopes, paracentesis unable to get any fluid out at the time., paracentesis Past Anesthesia/Blood Transfusion Reactions: No Reported Reaction Additional Past Anesthesia/Blood Transfusion Reaction / Comment(s): 3 units of blood transfused in around february 03. Past Psychological History: Anxiety, Bipolar Smoking Status: Current some day smoker Past Alcohol Use History: Abuse Past Drug Use History: None Reported Medications and Allergies Home Medications Medication Instructions Recorded Confirmed Type Cariprazine HCl [Vraylar] 3 mg PO HS 03/20/23 05/03/24 History Pantoprazole [Protonix] 40 mg PO DAILY 03/20/23 05/03/24 History QUEtiapine [SEROquel] 100 mg PO HS 03/20/23 05/03/24 History Budesonide-Formot 160-4.5 Mcg 2 puff INHALATION RT-BID 30 Days 02/24/24 05/03/24 Rx [Symbicort 160-4.5 Mcg Inhaler] #1 each Dapagliflozin Propanediol [Farxiga] 5 mg PO DAILY 90 Days #90 tab 04/08/24 05/03/24 Rx Sodium Bicarbonate Tab 650 mg PO DAILY 90 Days #90 tab 04/08/24 05/03/24 Rx Gabapentin [Neurontin] 300 mg PO TID 04/16/24 05/03/24 History Ipratropium-Albuterol Nebulize 3 ml INHALATION RT-TID 04/16/24 05/03/24 History [Duoneb 0.5 mg-3 mg/3 ml Soln] Tiotropium 2.5 Mcg/Puff [Spiriva 1 puff INHALATION RT-DAILY 04/16/24 05/03/24 History Respimat 2.5 Mcg] Furosemide [Lasix] 40 mg PO DAILY 30 Days #30 tab 04/28/24 05/03/24 Rx oxyCODONE HCL [OxyIR] 5 mg PO Q6HR PRN 3 Days #10 tab 04/28/24 05/03/24 Rx Midodrine HCl [ProAmatine] 10 mg PO QID@06,10,14,18 05/03/24 05/03/24 History Nitrofurantoin Monohyd/M-Cryst 100 mg PO DAILY 05/03/24 05/03/24 History [Macrobid] Allergies Allergy/AdvReac Type Severity Reaction Status Date / Time Penicillins Allergy Anaphylaxis Verified 05/03/24 18:39 Physical Exam Vitals: Vital Signs Temp Pulse Pulse Resp BP BP Pulse Ox 05/04/24 14:16 86 22 110/60 97 05/04/24 13:47 89 20 110/66 98 05/04/24 13:01 97.9 F 98 20 118/70 96 05/04/24 12:35 85 16 95/61 96 05/04/24 12:10 86 16 96/60 96 05/04/24 11:51 85 16 101/65 95 05/04/24 11:21 85 18 99/62 97 05/04/24 10:42 82 22 111/69 95 05/04/24 09:05 97.8 F 92 22 96/67 95 05/04/24 05:25 86 18 96/63 96 05/04/24 00:45 98 18 131/94 93 L 05/03/24 21:09 88 16 118/61 94 L 05/03/24 18:43 90 18 107/74 95 05/03/24 17:46 93 18 164/89 94 L Intake and Output 05/03/24 05/04/24 05/04/24 22:59 06:59 14:59 Other: Weight 122.47 kg patient is awake, comfortable, no acute distress. Alert oriented 3. Examination of the heart S1 and S2 Examination of the lungs bilateral breath sounds are heard Abdomen is soft, obese, with a cystitis. Examination of lower extremities shows edema 3-4+ bilaterally with chronic skin changes. Results - Lab Results Most recent lab results Calcium 8.4 mg/dL (8.7-10.3) L 05/04/24 03:40 Phosphorus 4.5 mg/dL (2.4-5.1) 05/04/24 03:40 Magnesium 1.7 mg/dL (1.5-2.4) 05/04/24 03:40 05/04/24 03:40 05/04/24 03:40 Assessment and Plan Assessment: 1. Acute kidney injury, most likely ATN. Rule out hepatorenal syndrome. Divine ent is not oliguric. Maintained on midodrine due to hypotension. 2. Hyponatremia during last admission currently improved. Patient responded well to demeclocycline. Most recent sodium at 136 . 3. Volume overload 4. History of recent cholecystectomy 5. Non-gap metabolic acidosis associated with acute kidney injury Plan: IV albumin 2 post paracentesis. Continue with sodium bicarb. continue with midodrine Change Lasix to IV. Hold farxiga Repeat labs in a.m.
[2024-05-04] MEDS: HYDROmorphone 1 MG/ML 1 ML SYRINGE IVP PRN (17:27)
[2024-05-04] MEDS: QUEtiapine 100 MG TAB PO SCH (22:40)
--- NOTE | 2024-05-05 00:43 | HP ---
HISTORY AND PHYSICAL HISTORY OF PRESENT ILLNESS: A 44-year-old white female was admitted to the hospital due to severe ascites for peritoneal tap secondary to cirrhosis, severe weeping of third-spacing of fluids down her legs. I gave her 1 dose of Lasix. She had 8 L of fluid tapped off her belly today, but it is much lower. She has had orthostatic hypotension, status post cholecystectomy, status post cirrhosis post cholecystectomy, Oxy IR for pain, Protonix for GERD. Xifaxan and lactulose. Elevated ammonia level. We are going to give her antibiotics for pneumonia. She is also admitted with pneumonia, on Rocephin and azithromycin. Pulmonary consult. Breathing treatments were given. Oxygen at night. PAST PSYCHIATRIC HISTORY: Anxiety and bipolar MEDICATIONS: Reviewed. REVIEW OF SYSTEMS: Negative except for mentioned in HPI. PHYSICAL EXAMINATION: GENERAL: She is alert, oriented x3. She is in no acute distress. CARDIOVASCULAR: S1, S2. LUNGS: Transmitted upper sounds. Less scattered rhonchi. PSYCH: Fair mood and affect. NEUROLOGIC: Cranial nerves are intact. SKIN: Warm and dry. BACK: Normal to inspection. ABDOMEN: Her abdomen is much smaller today secondary to 8 L being removed. Cytology is pending as well as cultures. Not as big as before. Some mild fluid waves, much smaller in nature, but enlarged diffusely. HEMATOLOGY: Negative Homans sign. EXTREMITIES: She has weeping in the lower extremities. 3+ edema. I am going to put Theo wraps on her legs. LABORATORY DATA: Hemoglobin is 10, white count 7.3. BNP 266. Albumin is 2.3. We gave her albumin, status post paracentesis. Liver enzymes are elevated at 37 and 175. Ammonia level is 35. Troponin negative. Lipase 217. Lactic acid 2.0. Gave her IV Lasix, IV antibiotics for pneumonia. Paracentesis done. Monitor kidney function closely. GFR went from 60 to 30 on last admission. Over diuresed her pertinent to renal failure. Continue current treatment. Treat for pneumonia. Prognosis guarded. MMODL / IJN: [id number] /
[2024-05-05 04:47] LABS: Appearance,BF Clear (Clear)
[2024-05-05 05:27] LABS: T. Protein, Body Fluid Source Peritoneal Fluid; Total Protein, Body Fluid 1520 mg/dL
--- NOTE | 2024-05-05 08:35 | XR ---
EXAMINATION TYPE: XR chest 1V DATE OF EXAM: 05/05/2024 6:43 AM CLINICAL INDICATION: Female, 44 years old with history of Follow-up pneumonia; COMPARISON: Chest radiographs from one day prior TECHNIQUE: XR chest 1V Frontal view of the chest. FINDINGS: Lungs/Pleura: There is no evidence of pleural effusion, focal consolidation, or pneumothorax. Pulmonary vascularity: Unremarkable. Heart/mediastinum: Cardiomediastinal silhouette is unremarkable. Musculoskeletal: No acute osseous pathology. IMPRESSION: Similar right middle lobe airspace opacities, possibly representing pneumonia. [facility], , 05/05/2024 8:33 AM
--- NOTE | 2024-05-05 08:50 | P.CONS ---
History of Present Illness - Reason for Consult Consult date: 05/04/24 Cellulitis Requesting physician: Luis Alfredo Shields - Chief Complaint Increasing swelling redness to the legs x days - History of Present Illness Patient is a 44-year-old female with a past medical history significant for reflux cirrhosis of the liver nonalcoholic recently did have admission to the hospital for hyponatremia she was also noted to have significant left lower extremity cellulitis and did have a UTI patient subsequently has been discharged home has been brought back to the hospital concerning for increasing swelling to bilateral lower extremity no also involving the right leg and also complaining of increasing shortness of breath patient symptom has been getting worse for the last 2 to 3 days patient denies high-grade fever or any chills and no fever have been recorded on presentation to the hospital patient was tachycardic on admission subsequently resolved she was not hypotensive or hypoxic and no need for supplemental oxygen patient did have white count of 7.3 BUN and creatinine has been mildly elevated patient did have a chest x-ray airspace opacity projecting over the spine correlate for pneumonia patient did have abdominal pelvis CT ascites extensive swelling to the subcutaneous tissue right lower lobe infiltrate correlate for pneumonia splenomegaly patient was started on Rocephin and Zithromax has been admitted to hospital infectious disease was consulted regarding cellulitis Review of Systems Positive point and negatives has been mentioned in the HPI, complete review of systems was performed and all other systems are negative Past Medical History Past Medical History: GERD/Reflux, Liver Disease Additional Past Medical History / Comment(s): retains fluid,anemia,cirrohis of liver non alcoholic, occ bloody stool, ulcer, bipolar, low sodium levels History of Any Multi-Drug Resistant Organisms: VRE Year Discovered:: 04/20/24 MDRO Source:: urine Past Surgical History: Cholecystectomy, EPS Additional Past Surgical History / Comment(s): has had 4 scopes, paracentesis unable to get any fluid out at the time., paracentesis Past Anesthesia/Blood Transfusion Reactions: No Reported Reaction Additional Past Anesthesia/Blood Transfusion Reaction / Comm: 3 units of blood transfused in around february 03. Past Psychological History: Anxiety, Bipolar Smoking Status: Current some day smoker Past Alcohol Use History: Abuse Past Drug Use History: None Reported Medications and Allergies Home Medications Medication Instructions Recorded Confirmed Type Cariprazine HCl [Vraylar] 3 mg PO HS 03/20/23 05/03/24 History Pantoprazole [Protonix] 40 mg PO DAILY 03/20/23 05/03/24 History QUEtiapine [SEROquel] 100 mg PO HS 03/20/23 05/03/24 History Budesonide-Formot 160-4.5 Mcg 2 puff INHALATION RT-BID 30 Days 02/24/24 05/03/24 Rx [Symbicort 160-4.5 Mcg Inhaler] #1 each Dapagliflozin Propanediol [Farxiga] 5 mg PO DAILY 90 Days #90 tab 04/08/24 05/03/24 Rx Sodium Bicarbonate Tab 650 mg PO DAILY 90 Days #90 tab 04/08/24 05/03/24 Rx Gabapentin [Neurontin] 300 mg PO TID 04/16/24 05/03/24 History Ipratropium-Albuterol Nebulize 3 ml INHALATION RT-TID 04/16/24 05/03/24 History [Duoneb 0.5 mg-3 mg/3 ml Soln] Tiotropium 2.5 Mcg/Puff [Spiriva 1 puff INHALATION RT-DAILY 04/16/24 05/03/24 History Respimat 2.5 Mcg] Furosemide [Lasix] 40 mg PO DAILY 30 Days #30 tab 04/28/24 05/03/24 Rx oxyCODONE HCL [OxyIR] 5 mg PO Q6HR PRN 3 Days #10 tab 04/28/24 05/03/24 Rx Midodrine HCl [ProAmatine] 10 mg PO QID@06,10,14,18 05/03/24 05/03/24 History Nitrofurantoin Monohyd/M-Cryst 100 mg PO DAILY 05/03/24 05/03/24 History [Macrobid] Allergies Allergy/AdvReac Type Severity Reaction Status Date / Time Penicillins Allergy Anaphylaxis Verified 05/03/24 18:39 Physical Exam Vitals: Vital Signs Temp Pulse Resp BP Pulse Ox 05/04/24 09:05 97.8 F 92 22 96/67 95 05/04/24 05:25 86 18 96/63 96 05/04/24 00:45 98 18 131/94 93 L 05/03/24 21:09 88 16 118/61 94 L 05/03/24 18:43 90 18 107/74 95 05/03/24 17:46 93 18 164/89 94 L 05/03/24 13:31 98.0 F 112 H 18 128/81 94 L GENERAL DESCRIPTION: Middle-aged female lying in bed, no distress. No tachypnea or accessory muscle of respiration use. HEENT: Shows Pallor , no scleral icterus. Oral mucous membrane is dry. No pharyngeal erythema or thrush NECK: Trachea central, no thyromegaly. LUNGS: Unlabored breathing. Clear to auscultation anteriorly. No wheeze or crackle. HEART: S1, S2, regular rate and rhythm. No loud murmur ABDOMEN: Soft, abdominal distention EXTREMITIES: 3+ edema feet bilateral with more redness to the left leg SKIN: No rash, no masses palpable. NEUROLOGICAL: The patient is awake, alert, oriented x3, mood and affect normal. Results CBC & Chem 7: 05/04/24 03:40 05/04/24 03:40 Labs: Abnormal Lab Results - Last 24 Hours (Table) 05/03/24 05/03/24 05/03/24 Range/Units 16:21 16:21 17:34 RBC 3.04 L (3.80-5.40) m/uL Hgb 10.0 L D (11.4-16.0) gm/dL Hct 31.4 L (34.0-46.0) % MCV 103.3 H (80.0-100.0) fL MCHC (32.0-37.0) g/dL RDW 21.9 H (11.5-15.5) % Plt Count 124 L (150-450) k/uL MPV (9.5-12.2) FL Macrocytosis Marked A Sodium 133 L (137-145) mmol/L Carbon Dioxide 17 L (22-30) mmol/L BUN 35 H (7-17) mg/dL Creatinine 1.98 H (0.52-1.04) mg/dL Est GFR (CKD-EPI) (>=60) Glucose 124 H (74-99) mg/dL Calcium (8.7-10.3) mg/dL AST 37 H (14-36) U/L Alkaline Phosphatase 175 H (38-126) U/L Ammonia 37 H (<30) umol/L Total Protein 4.8 L (6.3-8.2) g/dL Albumin 2.3 L (3.5-5.0) g/dL Albumin/Globulin Ratio (1.60-3.17) Ratio 05/04/24 05/04/24 Range/Units 03:40 03:40 RBC 3.06 L (3.80-5.40) m/uL Hgb 9.8 L (11.4-16.0) gm/dL Hct 30.9 L (34.0-46.0) % MCV 101.0 H (80.0-100.0) fL MCHC 31.7 L (32.0-37.0) g/dL RDW 23.0 H (11.5-15.5) % Plt Count (150-450) k/uL MPV 12.4 H (9.5-12.2) FL Macrocytosis Sodium (137-145) mmol/L Carbon Dioxide 18.5 L (22-30) mmol/L BUN 33.3 H (7-17) mg/dL Creatinine 1.9 H (0.52-1.04) mg/dL Est GFR (CKD-EPI) 33 L (>=60) Glucose (74-99) mg/dL Calcium 8.4 L (8.7-10.3) mg/dL AST (14-36) U/L Alkaline Phosphatase 228 H (38-126) U/L Ammonia (<30) umol/L Total Protein 5.0 L (6.3-8.2) g/dL Albumin 2.7 L (3.5-5.0) g/dL Albumin/Globulin Ratio 1.17 L (1.60-3.17) Ratio Assessment and Plan (1) Bilateral leg edema Current Visit: Yes Status: Acute Code(s): R60.0 - LOCALIZED EDEMA SNOMED Code(s): 060247182 (2) Congestive heart failure Current Visit: Yes Status: Acute Code(s): I50.9 - HEART FAILURE, UNSPECIFIED SNOMED Code(s): 77698959 (3) Penicillin allergy Current Visit: No Status: Acute Code(s): Z88.0 - ALLERGY STATUS TO PENICILLIN SNOMED Code(s): 67646919 Plan: 1patient presented to hospital with increasing abdominal as well as lower extremity swelling more likely related to excessive fluid examination secondary to her cirrhosis of the liver patient did have left lower extremity which is swollen and red slightly warm to touch concerning for cellulitis. 2patient did have abnormal CT as well as chest x-ray suspicious for pneumonia however the patient did not have significant respiratory symptoms to be suspicious for such. 3penicillin allergy that will limit the number of antibiotics even to use. 4we will check a procalcitonin level and for now continue with the Rocephin and Zithromax if procalcitonin is normal we will direct antibiotic therapy specifically towards the cellulitis. We will follow on clinical condition and cultures to further adjust medication if needed Thank you for this consultation we will follow the patient along with you Dictation was produced using [employer] dictation software. please excuse any grammatical, word or spelling errors. Time with Patient: Greater than 30
[2024-05-05 08:54] LABS: BUN/Creat Ratio 16.33 Ratio (12.00-20.00); Blood Urea Nitrogen 29.4 mg/dL (9.0-27.0); Carbon Dioxide 17.1 mmol/L (21.6-31.8); Chloride 106 mmol/L (96-109); Glucose 89 mg/dL (70-110); Potassium 3.8 mmol/L (3.5-5.5); Sodium 134 mmol/L (135-145)
[2024-05-05 08:55] LABS: ALT 17 U/L (8-44); AST 29 U/L (13-35); Albumin 2.6 g/dL (3.8-4.9); Albumin/Globulin Ratio 1.37 Ratio (1.60-3.17); Alkaline Phosphatase 201 U/L (41-126); Globulin 1.9 g/dL (1.6-3.3); Total Bilirubin 0.5 mg/dL (0.3-1.2); Total Protein 4.5 g/dL (6.2-8.2)
[2024-05-05] MEDS: FUROSEMIDE 10 MG/ML 4 ML VIAL IV SCH (09:05)
[2024-05-05 09:48] LABS: Basophils # (A) 0.05 X 10*3/uL (0.00-0.10); Eosinophils # (A) 0.31 X 10*3/uL (0.04-0.35); Eosinophils % (A) 5.9 %; HCT 30.7 % (37.2-46.3); HGB 9.5 g/dL (12.0-15.0); Lymphocytes # (A) 1.37 X 10*3/uL (0.90-5.00); Lymphocytes % (A) 26.2 %; MCH 31.4 pg (27.0-32.0); MCHC 30.9 g/dL (32.0-37.0); MCV 101.3 FL (80.0-97.0); Macrocytosis (M) 3+; Mean Platelet Volume 12.8 FL (9.5-12.2); Monocytes # (A) 0.59 X 10*3/uL (0.20-1.00); Monocytes % (A) 11.3 %; NRBC Per 100 WBC 0 X 10*3/uL (0.00-0.01); Neutrophils # (A) 2.81 X 10*3/uL (1.80-7.70); Neutrophils % (A) 53.9 %; Platelet Count 102 X 10*3/uL (140-440); RBC 3.03 X 10*6/uL (4.10-5.20); WBC 5.22 X 10*3/uL (4.50-10.00)
--- NOTE | 2024-05-05 10:19 | P.CNPUL ---
History of Present Illness Consult date: 05/04/24 Reason for consult: dyspnea, COPD, abnormal CXR/CT, obstructive sleep apnea Chief complaint: Shortness of breath, anasarca History of present illness: Patient is a 44-year-old female with a past medical history significant for reflux cirrhosis of the liver nonalcoholic recently did have admission to the hospital for hypo natremia she was also noted to have significant left lower extremity cellulitis and did have a UTI patient subsequently has been discharged home has been brought back to the hospital conc erning for increasing swelling to bilateral lower extremity no also involving the right leg and also complaining of increasing shortness of breath patient symptom has been getting worse for the last 2 to 3 days patient denies high- grade fever or any chills and no fever have been recorded on presentation to the hospital patient was tachycardic on admission subsequently resolved she was not hypotensive or hypoxic and no need for supplemental oxygen patient did have white count of 7.3 BUN and creatinine has been mildly elevated patient did have a chest x-ray airspace opacity projecting over the spine correlate for pneumonia patient did have abdominal pelvis CT ascites extensive swelling to the subcutaneous tissue right lower lobe infiltrate correlate for pneumonia splenomegaly patient was started on Rocephin and Zithromax has been admitted to hospital, she has a large-volume paracentesis over 8.2 L of fluid removed. Her admitted chest x-ray significant for airspace opacities suggestive of pneumonia. CT scan of the abdomen pelvis extensive subcutaneous edema as well as ascites, Review of Systems All systems: negative Past Medical History Past Medical History: GERD/Reflux, Liver Disease Additional Past Medical History / Comment(s): retains fluid,anemia,cirrohis of liver non alcoholic, occ bloody stool, ulcer, bipolar, low sodium levels History of Any Multi-Drug Resistant Organisms: VRE Date of last positivie culture/infection: 04/20/24 MDRO Source:: urine Past Surgical History: Cholecystectomy, EPS Additional Past Surgical History / Comment(s): has had 4 scopes, paracentesis unable to get any fluid out at the time., paracentesis Past Anesthesia/Blood Transfusion Reactions: No Reported Reaction Additional Past Anesthesia/Blood Transfusion Reaction / Comment(s): 3 units of blood transfused in around february 03. Past Psychological History: Anxiety, Bipolar Smoking Status: Current some day smoker Past Alcohol Use History: Abuse Past Drug Use History: None Reported Medications and Allergies Home Medications Medication Instructions Recorded Confirmed Type Cariprazine HCl [Vraylar] 3 mg PO HS 03/20/23 05/03/24 History Pantoprazole [Protonix] 40 mg PO DAILY 03/20/23 05/03/24 History QUEtiapine [SEROquel] 100 mg PO HS 03/20/23 05/03/24 History Budesonide-Formot 160-4.5 Mcg 2 puff INHALATION RT-BID 30 Days 02/24/24 05/03/24 Rx [Symbicort 160-4.5 Mcg Inhaler] #1 each Dapagliflozin Propanediol [Farxiga] 5 mg PO DAILY 90 Days #90 tab 04/08/24 05/03/24 Rx Sodium Bicarbonate Tab 650 mg PO DAILY 90 Days #90 tab 04/08/24 05/03/24 Rx Gabapentin [Neurontin] 300 mg PO TID 04/16/24 05/03/24 History Ipratropium-Albuterol Nebulize 3 ml INHALATION RT-TID 04/16/24 05/03/24 History [Duoneb 0.5 mg-3 mg/3 ml Soln] Tiotropium 2.5 Mcg/Puff [Spiriva 1 puff INHALATION RT-DAILY 04/16/24 05/03/24 History Respimat 2.5 Mcg] Furosemide [Lasix] 40 mg PO DAILY 30 Days #30 tab 04/28/24 05/03/24 Rx oxyCODONE HCL [OxyIR] 5 mg PO Q6HR PRN 3 Days #10 tab 04/28/24 05/03/24 Rx Midodrine HCl [ProAmatine] 10 mg PO QID@06,10,14,18 05/03/24 05/03/24 History Nitrofurantoin Monohyd/M-Cryst 100 mg PO DAILY 05/03/24 05/03/24 History [Macrobid] Allergies Allergy/AdvReac Type Severity Reaction Status Date / Time Penicillins Allergy Anaphylaxis Verified 05/03/24 18:39 Physical Exam Vitals: Vital Signs Temp Pulse Pulse Resp BP BP Pulse Ox 05/04/24 12:35 85 16 95/61 96 05/04/24 12:10 86 16 96/60 96 05/04/24 11:51 85 16 101/65 95 05/04/24 11:21 85 18 99/62 97 05/04/24 10:42 82 22 111/69 95 05/04/24 09:05 97.8 F 92 22 96/67 95 05/04/24 05:25 86 18 96/63 96 05/04/24 00:45 98 18 131/94 93 L 05/03/24 21:09 88 16 118/61 94 L 05/03/24 18:43 90 18 107/74 95 05/03/24 17:46 93 18 164/89 94 L 05/03/24 13:31 98.0 F 112 H 18 128/81 94 L Intake and Output 05/03/24 05/04/24 05/04/24 22:59 06:59 14:59 Other: Weight 122.47 kg - Constitutional General appearance: morbidly obese - EENT Eyes: EOMI, PERRLA Ears: bilateral: normal - Neck Carotids: bilateral: upstroke normal Thyroid: negative: normal size - Respiratory Respiratory: bilateral: diminished - Cardiovascular Rhythm: regular Heart sounds: normal: S1, S2 - Gastrointestinal General gastrointestinal: distended - Integumentary Extensive edema of lower extremity and generalized body Integumentary: decreased turgor - Neurologic Neurologic: CNII-XII intact - Musculoskeletal Musculoskeletal: gait normal, generalized weakness, strength equal bilaterally - Psychiatric Psychiatric: A&O x's 3, appropriate affect, intact judgment & insight Results - Laboratory Findings CBC and BMP: 05/05/24 04:56 05/05/24 04:56 PT/INR, D-dimer PT 12.0 sec (10.0-12.5) 05/03/24 16:21 INR 1.1 (<1.2) 05/03/24 16:21 Abnormal lab findings: Abnormal Labs 05/03/24 05/03/24 05/03/24 16:21 16:21 17:34 RBC 3.04 L Hgb 10.0 L D Hct 31.4 L MCV 103.3 H MCHC RDW 21.9 H Plt Count 124 L MPV Lymphocytes # (Manual) Eosinophils # (Manual) Basophils # (Manual) Macrocytosis Marked A Sodium 133 L Carbon Dioxide 17 L BUN 35 H Creatinine 1.98 H Est GFR (CKD-EPI) Glucose 124 H Calcium AST 37 H Alkaline Phosphatase 175 H Ammonia 37 H Total Protein 4.8 L Albumin 2.3 L Albumin/Globulin Ratio 05/04/24 05/04/24 03:40 03:40 RBC 3.06 L Hgb 9.8 L Hct 30.9 L MCV 101.0 H MCHC 31.7 L RDW 23.0 H Plt Count MPV 12.4 H Lymphocytes # (Manual) 0.67 L Eosinophils # (Manual) 0.59 H Basophils # (Manual) 0.42 H Macrocytosis Sodium Carbon Dioxide 18.5 L BUN 33.3 H Creatinine 1.9 H Est GFR (CKD-EPI) 33 L Glucose Calcium 8.4 L AST Alkaline Phosphatase 228 H Ammonia Total Protein 5.0 L Albumin 2.7 L Albumin/Globulin Ratio 1.17 L - Diagnostic Findings Chest x-ray: report reviewed, image reviewed Assessment and Plan Assessment: Massive ascites s/p large-volume paracentesis with removal of 8.2 L Right lower lobe pneumonia Cellulitis of both upper extremity Hepatic encephalopathy Extensive lower extremity abdominal wall edema with weeping of his skin Hypoxic respiratory failure with oxygen at nighttime Sleep disordered breathing and sleep apnea it Plan: Continue gentle diuresis with Lasix, consider adding spironolactone, may need Lasix drip Continue rifaximin mean and lactulose for hepatic encephalopathy Broad-spectrum antibiotic with Zithromax and Rocephin for right lower lobe pn eum[place] Continue supplemental oxygen at nighttime if respiratory distress noted consider using BiPAP machine sleep study if she is agreeable as outpatient basis Time with Patient: Greater than 30
--- NOTE | 2024-05-05 10:21 | P.PN ---
Subjective Progress Note Date: 05/05/24 Principal diagnosis: Massive ascites s/p large-volume paracentesis with removal of 8.2 L Right lower lobe pneumonia Cellulitis of both upper extremity Hepatic encephalopathy Extensive lower extremity abdominal wall edema with weeping of his skin Hypoxic respiratory failure with oxygen at nighttime Sleep disordered breathing and sleep apnea May 05, 2024, patient seen evaluate examined labs reviewed medications and care plan discussed, overall respiratory status is stable on broad-spectrum antibiotic however patient has extensive edema throughout the body especially in the legs with weeping skin will discuss with nephrology about starting Lasix drip for diuresis, chest x-ray from today reviewed stable infiltrate no significant change Patient is a 44-year-old female with a past medical history significant for reflux cirrhosis of the liver nonalcoholic recently did have admission to the hospital for hypo natremia she was also noted to have signific ant left lower extremity cellulitis and did have a UTI patient subsequently has been discharged home has been brought back to the hospital concerning for increasing swelling to bilateral lower extremity no also involving the right leg and also complaining of increasing shortness of breath patient symptom has been getting worse for the last 2 to 3 days patient denies high-grade fever or any chills and no fever have been recorded on presentation to the hospital patient was tachycardic on admission subsequently resolved she was not hypotensive or hypoxic and no need for supplemental oxygen patient did have white count of 7.3 BUN and creatinine has been mildly elevated patient did have a chest x-ray airspace opacity projecting over the spine correlate for pneumonia patient did have abdominal pelvis CT ascites extensive swelling to the subcutaneous tissue right lower lobe infiltrate correlate for pneumonia splenomegaly patient was started on Rocephin and Zithromax has been admitted to hospital, she has a large-volume paracentesis over 8.2 L of fluid removed. Her admitted chest x-ray significant for airspace opacities suggestive of pneumonia. CT scan of the abdomen pelvis extensive subcutaneous edema as well as ascites, Objective - Vital Signs Vital signs: Vital Signs Temp 97.5 F L 05/05/24 07:55 Pulse 80 05/05/24 09:32 Resp 18 05/05/24 07:55 BP 91/55 05/05/24 07:55 Pulse Ox 97 05/05/24 07:55 FiO2 Intake & Output 05/04/24 05/05/24 05/05/24 18:59 06:59 18:59 Output Total 700 Balance -700 Weight 122.47 kg Output: Urine 700 Other: Voiding Method Toilet # Voids 1 - Exam - Constitutional General appearance: morbidly obese - EENT Eyes: EOMI, PERRLA Ears: bilateral: normal - Neck Carotids: bilateral: upstroke normal Thyroid: negative: normal size - Respiratory Respiratory: bilateral: diminished - Cardiovascular Rhythm: regular Heart sounds: normal: S1, S2 - Gastrointestinal General gastrointestinal: distended - Integumentary Extensive edema of lower extremity and generalized body Integumentary: decreased turgor - Neurologic Neurologic: CNII-XII intact - Musculoskeletal Musculoskeletal: gait normal, generalized weakness, strength equal bilaterally - Psychiatric Psychiatric: A&O x's 3, appropriate affect, intact judgment & insight - Labs CBC & Chem 7: 05/05/24 04:56 05/05/24 04:56 Labs: Abnormal Lab Results - Last 24 Hours (Table) 05/05/24 05/05/24 Range/Units 04:56 04:56 RBC 3.03 L (4.10-5.20) X 10*6/uL Hgb 9.5 L (12.0-15.0) g/dL Hct 30.7 L (37.2-46.3) % MCV 101.3 H (80.0-97.0) FL MCHC 30.9 L (32.0-37.0) g/dL RDW 23.0 H (11.5-14.5) % Plt Count 102 L (140-440) X 10*3/uL MPV 12.8 H (9.5-12.2) FL Immature Gran # 0.09 H (0.00-0.04) X 10*3/uL Macrocytosis (manual) 3+ A Sodium 134 L (135-145) mmol/L Carbon Dioxide 17.1 L (21.6-31.8) mmol/L BUN 29.4 H (9.0-27.0) mg/dL Creatinine 1.8 H (0.6-1.5) mg/dL Est GFR (CKD-EPI) 35 L (>=60) Calcium 8.0 L (8.7-10.3) mg/dL Alkaline Phosphatase 201 H (41-126) U/L Total Protein 4.5 L (6.2-8.2) g/dL Albumin 2.6 L (3.8-4.9) g/dL Albumin/Globulin Ratio 1.37 L (1.60-3.17) Ratio Assessment and Plan Assessment: Massive ascites s/p large-volume paracentesis with removal of 8.2 L Right lower lobe pneumonia Cellulitis of both upper extremity Hepatic encephalopathy Extensive lower extremity abdominal wall edema with weeping of his skin Hypoxic respiratory failure with oxygen at nighttime Sleep disordered breathing and sleep apnea it Plan: Continue gentle diuresis with Lasix, consider adding spironolactone, may need Lasix drip, will discuss with nephrology Continue rifaximin mean and lactulose for hepatic encephalopathy Broad-spectrum antibiotic with Zithromax and Rocephin for right lower lobe pneumonia Continue supplemental oxygen at nighttime if respiratory distress noted consider using BiPAP machine sleep study if she is agreeable as outpatient basis Time with Patient: Greater than 30
[2024-05-05] MEDS: FUROSEMIDE 100 MG in SODIUM CHLORIDE 0.9% 90 ML IV SCH (11:17)
--- NOTE | 2024-05-05 11:38 | P.PN ---
Subjective patient is seen for follow-up for acute kidney injury and volume overload. Complaining off increased abdominal distention again. Status post paracentesis yesterday of with 8.2 L. Blood pressure remains on the lower side with systolic in the 90s. Objective - Vital Signs Vital signs: Vital Signs Temp 97.5 F L 05/05/24 07:55 Pulse 80 05/05/24 09:32 Resp 18 05/05/24 07:55 BP 91/55 05/05/24 07:55 Pulse Ox 97 05/05/24 07:55 FiO2 Intake & Output 05/04/24 05/05/24 05/05/24 18:59 06:59 18:59 Output Total 700 Balance -700 Weight 122.47 kg Output: Urine 700 Other: Voiding Method Toilet # Voids 1 - Exam patient is awake, comfortable, no acute distress. Alert oriented 3. Examination of the heart S1 and S2 Examination of the lungs bilateral breath sounds are heard Abdomen is soft, obese, with a cystitis. Examination of lower extremities shows edema 3-4+ bilaterally with chronic skin changes. - Labs CBC & Chem 7: 05/05/24 04:56 05/05/24 04:56 Labs: Abnormal Lab Results - Last 24 Hours (Table) 05/05/24 05/05/24 Range/Units 04:56 04:56 RBC 3.03 L (4.10-5.20) X 10*6/uL Hgb 9.5 L (12.0-15.0) g/dL Hct 30.7 L (37.2-46.3) % MCV 101.3 H (80.0-97.0) FL MCHC 30.9 L (32.0-37.0) g/dL RDW 23.0 H (11.5-14.5) % Plt Count 102 L (140-440) X 10*3/uL MPV 12.8 H (9.5-12.2) FL Immature Gran # 0.09 H (0.00-0.04) X 10*3/uL Macrocytosis (manual) 3+ A Sodium 134 L (135-145) mmol/L Carbon Dioxide 17.1 L (21.6-31.8) mmol/L BUN 29.4 H (9.0-27.0) mg/dL Creatinine 1.8 H (0.6-1.5) mg/dL Est GFR (CKD-EPI) 35 L (>=60) Calcium 8.0 L (8.7-10.3) mg/dL Alkaline Phosphatase 201 H (41-126) U/L Total Protein 4.5 L (6.2-8.2) g/dL Albumin 2.6 L (3.8-4.9) g/dL Albumin/Globulin Ratio 1.37 L (1.60-3.17) Ratio Assessment and Plan Assessment: 1. Acute kidney injury, most likely ATN. Rule out hepatorenal syndrome. Patient is not oliguric. Maintained on midodrine due to hypotension. 2. Hyponatremia during last admission currently improved. Patient responded well to demeclocycline. Most recent sodium at 136 . 3. Volume overload 4. History of recent cholecystectomy 5. Non-gap metabolic acidosis associated with acute kidney injury Plan: Continue with sodium bicarb. continue with midodrine Change Lasix to lasix drip Hold mely Repeat labs in a.m.
--- NOTE | 2024-05-05 12:35 | P.PN ---
Subjective Progress Note Date: 05/05/24 CHIEF COMPLAINT: Shortness of breath HISTORY OF PRESENT ILLNESS: Patient had a large amount of of abdominal ascites. She had 8.2 L removed by paracentesis yesterday. Patient does report improvement in her shortness of breath and that her abdomen is softer. She is having leaking from the paracentesis site. The output is through the old SALVADOR drain site has been very minimal. Afebrile. WBC 5.2 hemoglobin 9.5 platelets 102 sodium 134 potassium 3.8 creatinine 1.8 Na 134 PHYSICAL EXAM: VITAL SIGNS: Reviewed. GENERAL: no acute distress. Generalized edema ABDOMEN: Softer. Distended. Nontender. Old SALVADOR drain site with minimal serous fluid. Left side of abdomen where paracentesis was performed bandage is saturated with serous drainage. Sutures remain in place. NEUROLOGIC: Alert and oriented. Cranial nerves II through XII grossly intact. ASSESSMENT: 1. Massive abdominal ascites with 8.2 L removed with paracentesis 2. History of alcoholic liver cirrhosis with abdominal ascites 3. Status post laparoscopic cholecystectomy in March 2024 4. Severe protein calorie malnutrition PLAN: -No surgical intervention planned -Due to leaking of ascites fluid at the paracentesis site. Abdominal sutures will remain in place -Continue to increase protein intake -Fluid management per nephrology Physician Registered Nurse Cardiac note has been reviewed by physician. Signing provider agrees with the documented findings, assessment, and plan of care. Objective - Vital Signs Vital signs: Vital Signs Temp 97.5 F L 05/05/24 07:55 Pulse 80 05/05/24 09:32 Resp 18 05/05/24 07:55 BP 91/55 05/05/24 07:55 Pulse Ox 97 05/05/24 07:55 FiO2 Intake & Output 05/04/24 05/05/24 05/05/24 18:59 06:59 18:59 Output Total 700 Balance -700 Weight 122.47 kg Output: Urine 700 Other: Voiding Method Toilet Toilet # Voids 1 - Labs CBC & Chem 7: 05/05/24 04:56 05/05/24 04:56 Labs: Abnormal Lab Results - Last 24 Hours (Table) 05/05/24 05/05/24 Range/Units 04:56 04:56 RBC 3.03 L (4.10-5.20) X 10*6/uL Hgb 9.5 L (12.0-15.0) g/dL Hct 30.7 L (37.2-46.3) % MCV 101.3 H (80.0-97.0) FL MCHC 30.9 L (32.0-37.0) g/dL RDW 23.0 H (11.5-14.5) % Plt Count 102 L (140-440) X 10*3/uL MPV 12.8 H (9.5-12.2) FL Immature Gran # 0.09 H (0.00-0.04) X 10*3/uL Macrocytosis (manual) 3+ A Sodium 134 L (135-145) mmol/L Carbon Dioxide 17.1 L (21.6-31.8) mmol/L BUN 29.4 H (9.0-27.0) mg/dL Creatinine 1.8 H (0.6-1.5) mg/dL Est GFR (CKD-EPI) 35 L (>=60) Calcium 8.0 L (8.7-10.3) mg/dL Alkaline Phosphatase 201 H (41-126) U/L Total Protein 4.5 L (6.2-8.2) g/dL Albumin 2.6 L (3.8-4.9) g/dL Albumin/Globulin Ratio 1.37 L (1.60-3.17) Ratio
--- NOTE | 2024-05-05 13:30 | P.PN ---
Subjective Progress Note Date: 05/05/24 Principal diagnosis: Reason for follow-up is lower extremity cellulitis Patient is a 44-year-old female with a past medical history significant for reflux cirrhosis of the liver nonalcoholic has been brought to the hospital concerning for increasing swelling to lower extremity as well as abdominal noticed to have redness to the left leg concerning for cellulitis did have abnormal CT chest x-ray concerning for possible right lower lobe pneumonia. On today's evaluation that is 05/05/2024, Patient is afebrile patient is currently on room air and denies having any shortness of breath, the patient denies any chest pain or cough, the patient denies any nausea vomiting abdominal distention has decreased still have swelling to the leg however the patient is able to tolerate her Theo wrap. Patient white count is 5.22, creatinine is 1.8 peritoneal fluid white count was 113 procalcitonin 0.42 Objective - Vital Signs Vital signs: Vital Signs Temp 97.5 F L 05/05/24 07:55 Pulse 80 05/05/24 09:32 Resp 18 05/05/24 07:55 BP 91/55 05/05/24 07:55 Pulse Ox 97 05/05/24 07:55 FiO2 Intake & Output 05/04/24 05/05/24 05/05/24 18:59 06:59 18:59 Output Total 700 Balance -700 Weight 122.47 kg Output: Urine 700 Other: Voiding Method Toilet # Voids 1 - Exam GENERAL DESCRIPTION: Middle-age female lying in bed in no distress RESPIRATORY SYSTEM: Unlabored breathing , decreased breath sounds at bases HEART: S1 S2 regular rate and rhythm , ABDOMEN: Soft , no tenderness EXTREMITIES: Bilateral lower extremity with swelling currently wrapped with Theo wrap - Labs CBC & Chem 7: 05/05/24 04:56 05/05/24 04:56 Labs: Abnormal Lab Results - Last 24 Hours (Table) 05/05/24 05/05/24 Range/Units 04:56 04:56 RBC 3.03 L (4.10-5.20) X 10*6/uL Hgb 9.5 L (12.0-15.0) g/dL Hct 30.7 L (37.2-46.3) % MCV 101.3 H (80.0-97.0) FL MCHC 30.9 L (32.0-37.0) g/dL RDW 23.0 H (11.5-14.5) % Plt Count 102 L (140-440) X 10*3/uL MPV 12.8 H (9.5-12.2) FL Immature Gran # 0.09 H (0.00-0.04) X 10*3/uL Macrocytosis (manual) 3+ A Sodium 134 L (135-145) mmol/L Carbon Dioxide 17.1 L (21.6-31.8) mmol/L BUN 29.4 H (9.0-27.0) mg/dL Creatinine 1.8 H (0.6-1.5) mg/dL Est GFR (CKD-EPI) 35 L (>=60) Calcium 8.0 L (8.7-10.3) mg/dL Alkaline Phosphatase 201 H (41-126) U/L Total Protein 4.5 L (6.2-8.2) g/dL Albumin 2.6 L (3.8-4.9) g/dL Albumin/Globulin Ratio 1.37 L (1.60-3.17) Ratio Assessment and Plan (1) Bilateral leg edema Current Visit: Yes Status: Acute Code(s): R60.0 - LOCALIZED EDEMA SNOMED Code(s): 746655437 (2) Congestive heart failure Current Visit: Yes Status: Acute Code(s): I50.9 - HEART FAILURE, UNSPECIFIED SNOMED Code(s): 66767552 (3) Penicillin allergy Current Visit: No Status: Acute Code(s): Z88.0 - ALLERGY STATUS TO PENICILLIN SNOMED Code(s): 47798568 Plan: 1patient presented to hospital with increasing abdominal as well as lower extremity swelling more likely related to excessive fluid examination secondary to her cirrhosis of the liver patient did have left lower extremity which is swollen and red slightly warm to touch concerning for cellulitis. 2patient did have abnormal CT as well as chest x-ray suspicious for pneumonia however the patient did not have significant respiratory symptoms to be suspicious for such. 3penicillin allergy that will limit the number of antibiotics even to use. 4patient did have normal procalcitonin we will make pneumonia to be less likely we will go ahead discussed Rocephin Zithromax to the patient cefazolin directing antibiotics specifically towards the left leg cellulitis likely from gram- positive skin lawrence Dictation was produced using [employer] software. please excuse any grammatical, word or spelling errors. Time with Patient: Less than 30
[2024-05-06 11:20] LABS: African American GFR (CKD) 49 (>60 ml/min/1.73 sqM); Anion Gap 8 mmol/L; Blood Urea Nitrogen 26 mg/dL (7-17); Calcium 7.8 mg/dL (8.4-10.2); Carbon Dioxide 21 mmol/L (22-30); Chloride 104 mmol/L (98-107); Glucose 110 mg/dL (74-99); Non-African American GFR(CKD) 42 (>60 ml/min/1.73 sqM); Potassium 2.8 mmol/L (3.5-5.1); Sodium 133 mmol/L (137-145)
--- NOTE | 2024-05-06 12:09 | P.PN ---
Subjective Progress Note Date: 05/06/24 CHIEF COMPLAINT: Shortness of breath HISTORY OF PRESENT ILLNESS: Patient had a large amount of of abdominal ascites. She had 8.2 L removed by paracentesis. Patient reports her breathing is better. She also reports that abdomen is softer. She continues to have ascites drainage from the area that the paracentesis was completed on the left abdomen. Na 133 k 2.8 PHYSICAL EXAM: VITAL SIGNS: Reviewed. GENERAL: no acute distress. Generalized edema ABDOMEN: Softer. Distended. Nontender. Old SALVADOR drain site with minimal serous fluid. Left side of abdomen where paracentesis was performed bandage is saturated with serous drainage. Sutures remain in place. NEUROLOGIC: Alert and oriented. Cranial nerves II through XII grossly intact. ASSESSMENT: 1. Massive abdominal ascites with 8.2 L removed with paracentesis 2. History of alcoholic liver cirrhosis with abdominal ascites 3. Status post laparoscopic cholecystectomy in March 2024 4. Severe protein calorie malnutrition PLAN: -No surgical intervention planned -Due to leaking of ascites fluid at the paracentesis site. Abdominal sutures will remain in place -Continue to increase protein intake -Fluid management per nephrology Physician Live Truck Technician note has been reviewed by physician. Signing provider agrees with the documented findings, assessment, and plan of care. Objective - Vital Signs Vital signs: Vital Signs Temp 97.5 F L 05/06/24 07:29 Pulse 84 05/06/24 08:22 Resp 18 05/06/24 07:29 BP 109/64 05/06/24 07:29 Pulse Ox 92 L 05/06/24 07:29 FiO2 Intake & Output 05/05/24 05/06/24 05/06/24 18:59 06:59 18:59 Intake Total 76.083 Balance 76.083 Intake: Intake, IV Titration 76.083 Amount Furosemide 100 mg In 76.083 Sodium Chloride 0.9% 90 ml @ 5 MG/HR 5 mls/hr IV .Q20H [facility] Rx#:[id number] Other: Voiding Method Toilet Toilet # Voids 4 2 - Labs CBC & Chem 7: 05/05/24 04:56 05/06/24 10:26 Labs: Abnormal Lab Results - Last 24 Hours (Table) 05/06/24 Range/Units 10:26 Sodium 133 L (137-145) mmol/L Potassium 2.8 L (3.5-5.1) mmol/L Carbon Dioxide 21 L (22-30) mmol/L BUN 26 H (7-17) mg/dL Creatinine 1.51 H (0.52-1.04) mg/dL Glucose 110 H (74-99) mg/dL Calcium 7.8 L (8.4-10.2) mg/dL Microbiology - Last 24 Hours (Table) 05/04/24 08:43 Blood Culture - Preliminary Blood 05/04/24 11:46 Gram Stain - Preliminary Ascites Fluid Body Fluid Culture - Preliminary
--- NOTE | 2024-05-06 13:26 | P.PN ---
Subjective Progress Note Date: 05/06/24 Principal diagnosis: Reason for follow-up is lower extremity cellulitis Patient is a 44-year-old female with a past medical history significant for reflux cirrhosis of the liver nonalcoholic has been brought to the hospital concerning for increasing swelling to lower extremity as well as abdominal noticed to have redness to the left leg concerning for cellulitis did have abnormal CT chest x-ray concerning for possible right lower lobe pneumonia. On today's evaluation that is 05/06/2024, patient has been afebrile, patient is breathing comfortably and is currently on room air, patient denies having any significant cough no chest pain, patient denies nausea vomiting or diarrhea has been complaining of leakage from her paracentesis site swelling to the lower extremity slightly decreased denies any worsening pain. Patient did have a creatinine 1.51 peritoneal fluid cultures are pending blood cultures are pending Objective - Vital Signs Vital signs: Vital Signs Temp 97.5 F L 05/06/24 07:29 Pulse 84 05/06/24 08:22 Resp 18 05/06/24 07:29 BP 109/64 05/06/24 07:29 Pulse Ox 92 L 05/06/24 07:29 FiO2 Intake & Output 05/05/24 05/06/24 05/06/24 18:59 06:59 18:59 Intake Total 76.083 Balance 76.083 Intake: Intake, IV Titration 76.083 Amount Furosemide 100 mg In 76.083 Sodium Chloride 0.9% 90 ml @ 5 MG/HR 5 mls/hr IV .Q20H [facility] Rx#:[id number] Other: Voiding Method Toilet Toilet # Voids 4 2 - Exam GENERAL DESCRIPTION: Middle-age female lying in bed in no distress RESPIRATORY SYSTEM: Unlabored breathing , decreased breath sounds at bases HEART: S1 S2 regular rate and rhythm , ABDOMEN: Soft , no tenderness EXTREMITIES: Bilateral lower extremity with swelling currently wrapped with Theo wrap - Labs CBC & Chem 7: 05/05/24 04:56 05/06/24 10:26 Labs: Abnormal Lab Results - Last 24 Hours (Table) 05/06/24 Range/Units 10: Sodium 133 L (137-145) mmol/L Potassium 2.8 L (3.5-5.1) mmol/L Carbon Dioxide 21 L (22-30) mmol/L BUN 26 H (7-17) mg/dL Creatinine 1.51 H (0.52-1.04) mg/dL Glucose 110 H (74-99) mg/dL Calcium 7.8 L (8.4-10.2) mg/dL Microbiology - Last 24 Hours (Table) 05/04/24 08:43 Blood Culture - Preliminary Blood 05/04/24 11:46 Gram Stain - Preliminary Ascites Fluid Body Fluid Culture - Preliminary Assessment and Plan (1) Bilateral leg edema Current Visit: Yes Status: Acute Code(s): R60.0 - LOCALIZED EDEMA SNOMED Code(s): 241055407 (2) Congestive heart failure Current Visit: Yes Status: Acute Code(s): I50.9 - HEART FAILURE, UNSPECIFIED SNOMED Code(s): 84048159 (3) Penicillin allergy Current Visit: No Status: Acute Code(s): Z88.0 - ALLERGY STATUS TO PENICILLIN SNOMED Code(s): 76103344 Plan: 1patient presented to hospital with increasing abdominal as well as lower extremity swelling more likely related to excessive fluid examination secondary to her cirrhosis of the liver patient did have left lower extremity which is swollen and red slightly warm to touch concerning for cellulitis. 2patient did have abnormal CT as well as chest x-ray suspicious for pneumonia however the patient did not have significant respiratory symptoms to be suspicious for such. 3penicillin allergy that will limit the number of antibiotics even to use. 4patient did have normal procalcitonin we will make pneumonia to be less likely 5patient to continue with cefazolin for left leg cellulitis likely from gram- positive skin lawrence Dictation was produced using [email or web address] dictation software. please excuse any grammatical, word or spelling errors. Time with Patient: Less than 30
--- NOTE | 2024-05-06 15:19 | P.PN ---
Subjective Progress Note Date: 05/06/24 Principal diagnosis: Massive ascites s/p large-volume paracentesis with removal of 8.2 L Right lower lobe pneumonia Cellulitis of both upper extremity Hepatic encephalopathy Extensive lower extremity abdominal wall edema with weeping of his skin Hypoxic respiratory failure with oxygen at nighttime Sleep disordered breathing and sleep apnea May 06, 2024, patient seen evaluate examined during rounds labs reviewed medication care plan discussed, patient remains on Lasix drip 5 mg an hour, also on broad-spectrum IV antibiotic with Unasyn, acetic fluid culture no growth so far, Gram stain negative. Sodium is 133 potassium 2.8 BUN/creatinine is 26/1.51 continue to improve with diuresis. Patient remains on IV cefazolin with bronchodilators Dilaudid for pain control, lactulose and midodrine also getting rifaximin mean and white count for hepatic encephalopathy. May 05, 2024, patient seen evaluate examined labs reviewed medications and care plan discussed, overall respiratory status is stable on broad-spectrum antibiotic however patient has extensive edema throughout the body especially in the legs with weeping skin will discuss with nephrology about starting Lasix drip for diuresis, chest x-ray from today reviewed stable infiltrate no significant change Patient is a 44-year-old female with a past medical history significant for reflux cirrhosis of the liver nonalcoholic recently did have admission to the hospital for hypo natremia she was also noted to have significant left lower extremity cellulitis and did have a UTI patient subseque ntly has been discharged home has been brought back to the hospital concerning for increasing swelling to bilateral lower extremity no also involving the right leg and also complaining of increasing shortness of breath patient symptom has been getting worse for the last 2 to 3 days patient denies high-grade fever or any chills and no fever have been recorded on presentation to the hospital patient was tachycardic on admission subsequently resolved she was not hypotensive or hypoxic and no need for supplemental oxygen patient did have white count of 7.3 BUN and creatinine has been mildly elevated patient did have a chest x-ray airspace opacity projecting over the spine correlate for pneumonia patient did have abdominal pelvis CT ascites extensive swelling to the subcutaneous tissue right lower lobe infiltrate correlate for pneumonia splenomegaly patient was started on Rocephin and Zithromax has been admitted to hospital, she has a large-volume paracentesis over 8.2 L of fluid removed. Her admitted chest x-ray significant for airspace opacities suggestive of pneumonia. CT scan of the abdomen pelvis extensive subcutaneous edema as well as ascites, Objective - Vital Signs Vital signs: Vital Signs Temp 97.7 F 05/06/24 13:45 Pulse 80 05/06/24 13:47 Resp 18 05/06/24 13:45 BP 111/64 05/06/24 13:45 Pulse Ox 93 L 05/06/24 13:45 FiO2 Intake & Output 05/05/24 05/06/24 05/06/24 18:59 06:59 18:59 Intake Total 76.083 Balance 76.083 Intake: Intake, IV Titration 76.083 Amount Furosemide 100 mg In 76.083 Sodium Chloride 0.9% 90 ml @ 5 MG/HR 5 mls/hr IV .Q20H [facility] Rx#:[id number] Other: Voiding Method Toilet Toilet # Voids 4 2 - Exam - Constitutional General appearance: morbidly obese - EENT Eyes: EOMI, PERRLA Ears: bilateral: normal - Neck Carotids: bilateral: upstroke normal Thyroid: negative: normal size - Respiratory Respiratory: bilateral: diminished - Cardiovascular Rhythm: regular Heart sounds: normal: S1, S2 - Gastrointestinal General gastrointestinal: distended - Integumentary Extensive edema of lower extremity and generalized body Integumentary: decreased turgor - Neurologic Neurologic: CNII-XII intact - Musculoskeletal Musculoskeletal: gait normal, generalized weakness, strength equal bilaterally - Psychiatric Psychiatric: A&O x's 3, appropriate affect, intact judgment & insight - Labs CBC & Chem 7: 05/05/24 04:56 05/06/24 10:26 Labs: Abnormal Lab Results - Last 24 Hours (Table) 05/06/24 Range/Units 10:26 Sodium 133 L (137-145) mmol/L Potassium 2.8 L (3.5-5.1) mmol/L Carbon Dioxide 21 L (22-30) mmol/L BUN 26 H (7-17) mg/dL Creatinine 1.51 H (0.52-1.04) mg/dL Glucose 110 H (74-99) mg/dL Calcium 7.8 L (8.4-10.2) mg/dL Microbiology - Last 24 Hours (Table) 05/04/24 08:43 Blood Culture - Preliminary Blood 05/04/24 11:46 Gram Stain - Preliminary Ascites Fluid Body Fluid Culture - Preliminary Assessment and Plan Assessment: Massive ascites s/p large-volume paracentesis with removal of 8.2 L Right lower lobe pneumonia Severe hypokalemia Cellulitis of both upper extremity Hepatic encephalopathy Extensive lower extremity abdominal wall edema with weeping of his skin Hypoxic respiratory failure with oxygen at nighttime Sleep disordered breathing and sleep apnea it Plan: Patient will be placed on potassium replacement protocol Continue gentle diuresis with Lasix, drip Continue rifaximin mean and lactulose for hepatic encephalopathy Broad-spectrum antibiotic with Zithromax and Rocephin for right lower lobe pneumonia Continue supplemental oxygen at nighttime if respiratory distress noted consider using BiPAP machine sleep study if she is agreeable as outpatient basis Time with Patient: Greater than 30
[2024-05-06] MEDS ORDERED: Potassium Replacement Protocol 1 EACH MISC MISCELLANE PRN (15:23)
[2024-05-06] MEDS: POTASSIUM CHLORIDE ER 20 MEQ TAB.ER PO SCH (15:33)
--- NOTE | 2024-05-06 16:18 | P.PN ---
Subjective patient is seen for follow-up for acute kidney injury and volume overload. Maintained on Lasix drip. Patient reports good urine output however it is not accurately charted. Labs are pending from today. Objective - Vital Signs Vital signs: Vital Signs Temp 97.7 F 05/06/24 13:45 Pulse 80 05/06/24 13:47 Resp 18 05/06/24 13:45 BP 111/64 05/06/24 13:45 Pulse Ox 93 L 05/06/24 13:45 FiO2 Intake & Output 05/05/24 05/06/24 05/06/24 18:59 06:59 18:59 Intake Total 76.083 Balance 76.083 Intake: Intake, IV Titration 76.083 Amount Furosemide 100 mg In 76.083 Sodium Chloride 0.9% 90 ml @ 5 MG/HR 5 mls/hr IV .Q20H [facility] Rx#:[id number] Other: Voiding Method Toilet Toilet # Voids 4 2 - Exam patient is awake, comfortable, no acute distress. Alert oriented 3. Examination of the heart S1 and S2 Examination of the lungs bilateral breath sounds are heard Abdomen is soft, obese, with a cystitis. Examination of lower extremities shows edema 3-4+ bilaterally with chronic skin changes. - Labs CBC & Chem 7: 05/05/24 04:56 05/06/24 10:26 Labs: Abnormal Lab Results - Last 24 Hours (Table) 05/06/24 Range/Units 10:26 Sodium 133 L (137-145) mmol/L Potassium 2.8 L (3.5-5.1) mmol/L Carbon Dioxide 21 L (22-30) mmol/L BUN 26 H (7-17) mg/dL Creatinine 1.51 H (0.52-1.04) mg/dL Glucose 110 H (74-99) mg/dL Calcium 7.8 L (8.4-10.2) mg/dL Microbiology - Last 24 Hours (Table) 05/04/24 08:43 Blood Culture - Preliminary Blood 05/04/24 11:46 Gram Stain - Preliminary Ascites Fluid Body Fluid Culture - Preliminary Assessment and Plan Assessment: 1. Acute kidney injury, most likely ATN. Patient is not oliguric. Maintained on midodrine due to hypotension. 2. Hyponatremia during last admission currently improved. Patient responded well to demeclocycline. 3. Volume overload 4. History of recent cholecystectomy 5. Non-gap metabolic acidosis associated with acute kidney injury Plan: Continue with sodium bicarb. continue with midodrine Continue Lasix drip Check labs today and in a.m. Repeat labs in a.m.
--- NOTE | 2024-05-07 09:58 | P.PN ---
Subjective Progress Note Date: 05/07/24 Principal diagnosis: Ascites leak Patient doing fairly well today. She states the output from the paracentesis site and the cholecystectomy site has decreased somewhat. No significant pain. Tolerating diet. Objective - Vital Signs Vital signs: Vital Signs Temp 98.0 F 05/07/24 07:34 Pulse 84 05/07/24 08:56 Resp 17 05/07/24 07:34 BP 115/68 05/07/24 07:34 Pulse Ox 94 L 05/07/24 07:34 FiO2 Intake & Output 05/06/24 05/07/24 05/07/24 18:59 06:59 18:59 Intake Total 99.083 Output Total 1000 150 Balance -900.917 -150 Intake: Intake, IV Titration 99.083 Amount Furosemide 100 mg In 99.083 Sodium Chloride 0.9% 90 ml @ 5 MG/HR 5 mls/hr IV .Q20H [facility] Rx#:[id number] Output: Drainage 150 Right Abdomen 150 Urine 1000 Other: # Voids 4 - Exam Abdomen: Soft, mild distention, nontender, serous drainage from 2 separate sites with stoma appliance - Labs CBC & Chem 7: 05/05/24 04:56 05/06/24 21:01 Labs: Abnormal Lab Results - Last 24 Hours (Table) 05/06/24 05/06/24 05/07/24 Range/Units 10:26 21:01 04:29 Sodium 133 L (137-145) mmol/L Potassium 2.8 L 3.2 L (3.5-5.1) mmol/L Carbon Dioxide 21 L (22-30) mmol/L BUN 26 H (7-17) mg/dL Creatinine 1.51 H (0.52-1.04) mg/dL Glucose 110 H (74-99) mg/dL Calcium 7.8 L (8.4-10.2) mg/dL Ammonia 32 H (<30) umol/L Microbiology - Last 24 Hours (Table) 05/04/24 11:46 Anaerobic Culture - Preliminary Ascites Fluid 05/04/24 11:46 Gram Stain - Preliminary Ascites Fluid Body Fluid Culture - Preliminary 05/04/24 08:43 Blood Culture - Preliminary Blood Assessment and Plan (1) Ascites Narrative/Plan: Patient unfortunately still having ascitic drainage. Will require repeat paracentesis in the next 2 to 3 days. Decrease IV fluid rate. Continue diuretics. Ambulate. Current Visit: Yes Status: Acute Code(s): R18.8 - OTHER ASCITES SNOMED Code(s): 241354314
[2024-05-07 10:03] LABS: BUN/Creat Ratio 15.71 Ratio (12.00-20.00); Calcium 7.7 mg/dL (8.7-10.3); Carbon Dioxide 20.2 mmol/L (21.6-31.8); Chloride 104 mmol/L (96-109); Glucose 105 mg/dL (70-110); Potassium 3.1 mmol/L (3.5-5.5); Sodium 135 mmol/L (135-145)
[2024-05-07 10:08] LABS: Basophils # (A) 0.05 X 10*3/uL (0.00-0.10); Basophils % (A) 0.9 %; Eosinophils # (A) 0.29 X 10*3/uL (0.04-0.35); HCT 28.6 % (37.2-46.3); HGB 9.3 g/dL (12.0-15.0); Lymphocytes % (A) 20.8 %; MCH 32.3 pg (27.0-32.0); MCHC 32.5 g/dL (32.0-37.0); MCV 99.3 FL (80.0-97.0); Monocytes # (A) 0.61 X 10*3/uL (0.20-1.00); Monocytes % (A) 10.6 %; NRBC Per 100 WBC 0 X 10*3/uL (0.00-0.01); Neutrophils # (A) 3.58 X 10*3/uL (1.80-7.70); Platelet Count 106 X 10*3/uL (140-440); RBC 2.88 X 10*6/uL (4.10-5.20); RDW 22.4 % (11.5-14.5); WBC 5.77 X 10*3/uL (4.50-10.00)
--- NOTE | 2024-05-07 12:16 | P.PN ---
Subjective patient is seen for follow-up for acute kidney injury and volume overload. Maintained on Lasix drip. Patient reports good urine output however it is not accurately charted. labs show serum creatinine at 1.4 today potassium of 3.1 Objective - Vital Signs Vital signs: Vital Signs Temp 98.0 F 05/07/24 07:34 Pulse 86 05/07/24 12:05 Resp 17 05/07/24 07:34 BP 115/68 05/07/24 07:34 Pulse Ox 94 L 05/07/24 07:34 FiO2 Intake & Output 05/06/24 05/07/24 05/07/24 18:59 06:59 18:59 Intake Total 99.083 Output Total 1000 150 Balance -900.917 -150 Intake: Intake, IV Titration 99.083 Amount Furosemide 100 mg In 99.083 Sodium Chloride 0.9% 90 ml @ 5 MG/HR 5 mls/hr IV .Q20H [facility] Rx#:[id number] Output: Drainage 150 Right Abdomen 150 Urine 1000 Other: Voiding Method Toilet # Voids 4 - Exam patient is awake, comfortable, no acute distress. Alert oriented 3. Examination of the heart S1 and S2 Examination of the lungs bilateral breath sounds are heard Abdomen is soft, obese, with a cystitis. Examination of lower extremities shows edema 3-4+ bilaterally with chronic skin changes. - Labs CBC & Chem 7: 05/07/24 04:29 05/07/24 04:29 Labs: Abnormal Lab Results - Last 24 Hours (Table) 05/06/24 05/07/24 05/07/24 Range/Units 21:01 04:29 04:29 RBC 2.88 L (4.10-5.20) X 10*6/uL Hgb 9.3 L (12.0-15.0) g/dL Hct 28.6 L (37.2-46.3) % MCV 99.3 H (80.0-97.0) FL MCH 32.3 H (27.0-32.0) pg RDW 22.4 H (11.5-14.5) % Plt Count 106 L (140-440) X 10*3/uL MPV 13.0 H (9.5-12.2) FL Potassium 3.2 L 3.1 L (3.5-5.1) mmol/L Carbon Dioxide 20.2 L (21.6-31.8) mmol/L Est GFR (CKD-EPI) 48 L (>=60) Calcium 7.7 L (8.7-10.3) mg/dL Ammonia (<30) umol/L 05/07/24 Range/Units 04:29 RBC (4.10-5.20) X 10*6/uL Hgb (12.0-15.0) g/dL Hct (37.2-46.3) % MCV (80.0-97.0) FL MCH (27.0-32.0) pg RDW (11.5-14.5) % Plt Count (140-440) X 10*3/uL MPV (9.5-12.2) FL Potassium (3.5-5.1) mmol/L Carbon Dioxide (21.6-31.8) mmol/L Est GFR (CKD-EPI) (>=60) Calcium (8.7-10.3) mg/dL Ammonia 32 H (<30) umol/L Microbiology - Last 24 Hours (Table) 05/04/24 11:46 Anaerobic Culture - Preliminary Ascites Fluid 05/04/24 11:46 Gram Stain - Preliminary Ascites Fluid Body Fluid Culture - Preliminary 05/04/24 08:43 Blood Culture - Preliminary Blood Assessment and Plan Assessment: 1. Acute kidney injury, most likely ATN. Patient is not oliguric. Maintained on midodrine due to hypotension. 2. Hyponatremia during last admission currently improved. Patient responded well to demeclocycline. 3. Volume overload, slowly improving. Maintained on Lasix drip 4. History of recent cholecystectomy 5. Non-gap metabolic acidosis associated with acute kidney injury Plan: Continue with sodium bicarb. continue with midodrine Continue Lasix drip Check labs a.m.
--- NOTE | 2024-05-07 12:26 | P.PN ---
Subjective Progress Note Date: 05/07/24 Principal diagnosis: Massive ascites s/p large-volume paracentesis with removal of 8.2 L Right lower lobe pneumonia Cellulitis of both upper extremity Hepatic encephalopathy Extensive lower extremity abdominal wall edema with weeping of his skin Hypoxic respiratory failure with oxygen at nighttime Sleep disordered breathing and sleep apnea History of 2023, patient seen eval examined during rounds labs reviewed medications and care plan discussed, patient sitting upright in the chair is swelling in the lower extremity as well as the thigh and trunk stabilized however inflammatory changes are still there, patient remains on IV cefazolin tolerating very well, remains on Lasix drip which seems to be helping, patient remains on midodrine and continuation of home medications including sodium bicarb as well as rifaximin mean and antidepressant. Today reviewed CBC fairly stable, platelet count low but stable, sodium is 135 potassium 3.1 BUN/creatinine is 22 1.4 continue to improve due to improved renal perfusion, potassium is low being repleted May 06, 2024, patient seen evaluate examined during rounds labs reviewed medication care plan discussed, patient remains on Lasix drip 5 mg an hour, also on broad-spectrum IV antibiotic with Unasyn, acetic fluid culture no growth so far, Gram stain negative. Sodium is 133 potassium 2.8 BUN/creatinine is 26/1.51 continue to improve with diuresis. Patient remains on IV cefazolin with bronchodilators Dilaudid for pain control, lactulose and midodrine also getting rifaximin mean and white count for hepatic encephalopathy. May 05, 2024, patient seen evaluate examined labs reviewed medications and care plan discussed, overall respiratory status is stable on broad-spectrum antibiotic however patient has extensive edema throughout the body especially in the legs with weeping skin will discuss with nephrology about starting Lasix drip for diuresis, chest x-ray from today reviewed stable infiltrate no sig nificant change Patient is a 44-year-old female with a past medical history significant for reflux cirrhosis of the liver nonalcoholic recently did have admission to the hospital for hypo natremia she was also noted to have significant left lower extremity cellulitis and did have a UTI patient subsequently has been discharged home has been brought back to the hospital concerning for increasing swelling to bilateral lower extremity no also involving the right leg and also complaining of increasing shortness of breath patient symptom has been getting worse for the last 2 to 3 days patient denies high-grade fever or any chills and no fever have been recorded on presentation to the hospital patient was tachycardic on admission subsequently resolved she was not hypotensive or hypoxic and no need for supplemental oxygen patient did have white count of 7.3 BUN and creatinine has been mildly elevated patient did have a chest x-ray airspace opacity projecting over the spine correlate for pneumonia patient did have abdominal pelvis CT ascites extensive swelling to the subcutaneous tissue right lower lobe infiltrate correlate for pneumonia splenomegaly patient was started on Rocephin and Zithromax has been admitted to hospital, she has a large-volume paracentesis over 8.2 L of fluid removed. Her admitted chest x-ray significant for airspace opacities suggestive of pneumonia. CT scan of the abdomen pelvis extensive subcutaneous edema as well as ascites, Objective - Vital Signs Vital signs: Vital Signs Temp 98.0 F 05/07/24 07:34 Pulse 88 05/07/24 12:15 Resp 17 05/07/24 07:34 BP 115/68 05/07/24 07:34 Pulse Ox 94 L 05/07/24 07:34 FiO2 Intake & Output 05/06/24 05/07/24 05/07/24 18:59 06:59 18:59 Intake Total 99.083 Output Total 1000 150 Balance -900.917 -150 Intake: Intake, IV Titration 99.083 Amount Furosemide 100 mg In 99.083 Sodium Chloride 0.9% 90 ml @ 5 MG/HR 5 mls/hr IV .Q20H [facility] Rx#:[id number] Output: Drainage 150 Right Abdomen 150 Urine 1000 Other: Voiding Method Toilet # Voids 4 - Exam - Constitutional General appearance: morbidly obese - EENT Eyes: EOMI, PERRLA Ears: bilateral: normal - Neck Carotids: bilateral: upstroke normal Thyroid: negative: normal size - Respiratory Respiratory: bilateral: diminished - Cardiovascular Rhythm: regular Heart sounds: normal: S1, S2 - Gastrointestinal General gastrointestinal: distended - Integumentary Extensive edema of lower extremity and generalized body Integumentary: decreased turgor - Neurologic Neurologic: CNII-XII intact - Musculoskeletal Musculoskeletal: gait normal, generalized weakness, strength equal bilaterally - Psychiatric Psychiatric: A&O x's 3, appropriate affect, intact judgment & insight - Labs CBC & Chem 7: 05/07/24 04:29 05/07/24 04:29 Labs: Abnormal Lab Results - Last 24 Hours (Table) 05/06/24 05/07/24 05/07/24 Range/Units 21:01 04:29 04:29 RBC 2.88 L (4.10-5.20) X 10*6/uL Hgb 9.3 L (12.0-15.0) g/dL Hct 28.6 L (37.2-46.3) % MCV 99.3 H (80.0-97.0) FL MCH 32.3 H (27.0-32.0) pg RDW 22.4 H (11.5-14.5) % Plt Count 106 L (140-440) X 10*3/uL MPV 13.0 H (9.5-12.2) FL Potassium 3.2 L 3.1 L (3.5-5.1) mmol/L Carbon Dioxide 20.2 L (21.6-31.8) mmol/L Est GFR (CKD-EPI) 48 L (>=60) Calcium 7.7 L (8.7-10.3) mg/dL Ammonia (<30) umol/L 05/07/24 Range/Units 04:29 RBC (4.10-5.20) X 10*6/uL Hgb (12.0-15.0) g/dL Hct (37.2-46.3) % MCV (80.0-97.0) FL MCH (27.0-32.0) pg RDW (11.5-14.5) % Plt Count (140-440) X 10*3/uL MPV (9.5-12.2) FL Potassium (3.5-5.1) mmol/L Carbon Dioxide (21.6-31.8) mmol/L Est GFR (CKD-EPI) (>=60) Calcium (8.7-10.3) mg/dL Ammonia 32 H (<30) umol/L Microbiology - Last 24 Hours (Table) 05/04/24 11:46 Anaerobic Culture - Preliminary Ascites Fluid 05/04/24 11:46 Gram Stain - Preliminary Ascites Fluid Body Fluid Culture - Preliminary 05/04/24 08:43 Blood Culture - Preliminary Blood Assessment and Plan Assessment: Massive ascites s/p large-volume paracentesis with removal of 8.2 L Right lower lobe pneumonia Severe hypokalemia, on replacement slowly improve Cellulitis of both upper extremity Hepatic encephalopathy Extensive lower extremity abdominal wall edema with weeping of his skin Hypoxic respiratory failure with oxygen at nighttime Sleep disordered breathing and sleep apnea it Plan: Patient continued on potassium replacement protocol Continue gentle diuresis with Lasix, drip renal function continued to improve Continue rifaximin mean and lactulose for hepatic encephalopathy Broad-spectrum antibiotic with Zithromax and Rocephin for right lower lobe pneumonia Continue supplemental oxygen at nighttime if respiratory distress noted consider using BiPAP machine sleep study if she is agreeable as outpatient basis Time with Patient: Greater than 30
--- NOTE | 2024-05-07 13:24 | P.PN ---
Subjective Progress Note Date: 05/07/24 Principal diagnosis: Reason for follow-up is lower extremity cellulitis Patient is a 44-year-old female with a past medical history significant for reflux cirrhosis of the liver nonalcoholic has been brought to the hospital concerning for increasing swelling to lower extremity as well as abdominal noticed to have redness to the left leg concerning for cellulitis did have abnormal CT chest x-ray concerning for possible right lower lobe pneumonia. On today's evaluation that is 05/07/2024, Patient is afebrile this morning patient denies having any chest pain shortness of breath or cough, the patient is currently on room air, patient denies any abdominal pain no diarrhea no nausea no vomiting swelling and pain to lower extremity has decreased in intensity. Patient white count is 5.77, platelets 1.4 abdominal culture negative Objective - Vital Signs Vital signs: Vital Signs Temp 98.0 F 05/07/24 07:34 Pulse 88 05/07/24 12:15 Resp 17 05/07/24 07:34 BP 115/68 05/07/24 07:34 Pulse Ox 94 L 05/07/24 07:34 FiO2 Intake & Output 05/06/24 05/07/24 05/07/24 18:59 06:59 18:59 Intake Total 99.083 Output Total 1000 150 Balance -900.917 -150 Intake: Intake, IV Titration 99.083 Amount Furosemide 100 mg In 99.083 Sodium Chloride 0.9% 90 ml @ 5 MG/HR 5 mls/hr IV .Q20H [facility] Rx#:[id number] Output: Drainage 150 Right Abdomen 150 Urine 1000 Other: Voiding Method Toilet # Voids 4 - Exam GENERAL DESCRIPTION: Middle-age female lying in bed in no distress RESPIRATORY SYSTEM: Unlabored breathing , decreased breath sounds at bases HEART: S1 S2 regular rate and rhythm , ABDOMEN: Soft , no tenderness EXTREMITIES: Bilateral lower extremity with diffuse swelling some dry scaly skin she did have blister on the dorsum aspect of the right foot - Labs CBC & Chem 7: 05/07/24 04:29 05/07/24 04:29 Labs: Abnormal Lab Results - Last 24 Hours (Table) 05/06/24 05/07/24 05/07/24 Range/Units 21:01 04:29 04:29 RBC 2.88 L (4.10-5.20) X 10*6/uL Hgb 9.3 L (12.0-15.0) g/dL Hct 28.6 L (37.2-46.3) % MCV 99.3 H (80.0-97.0) FL MCH 32.3 H (27.0-32.0) pg RDW 22.4 H (11.5-14.5) % Plt Count 106 L (140-440) X 10*3/uL MPV 13.0 H (9.5-12.2) FL Potassium 3.2 L 3.1 L (3.5-5.1) mmol/L Carbon Dioxide 20.2 L (21.6-31.8) mmol/L Est GFR (CKD-EPI) 48 L (>=60) Calcium 7.7 L (8.7-10.3) mg/dL Ammonia (<30) umol/L 05/07/24 Range/Units 04:29 RBC (4.10-5.20) X 10*6/uL Hgb (12.0-15.0) g/dL Hct (37.2-46.3) % MCV (80.0-97.0) FL MCH (27.0-32.0) pg RDW (11.5-14.5) % Plt Count (140-440) X 10*3/uL MPV (9.5-12.2) FL Potassium (3.5-5.1) mmol/L Carbon Dioxide (21.6-31.8) mmol/L Est GFR (CKD-EPI) (>=60) Calcium (8.7-10.3) mg/dL Ammonia 32 H (<30) umol/L Microbiology - Last 24 Hours (Table) 05/04/24 11:46 Anaerobic Culture - Preliminary Ascites Fluid 05/04/24 11:46 Gram Stain - Preliminary Ascites Fluid Body Fluid Culture - Preliminary 05/04/24 08:43 Blood Culture - Preliminary Blood Assessment and Plan (1) Bilateral leg edema Current Visit: Yes Status: Acute Code(s): R60.0 - LOCALIZED EDEMA SNOMED Code(s): 263479192 (2) Congestive heart failure Current Visit: Yes Status: Acute Code(s): I50.9 - HEART FAILURE, UNSPECIFIED SNOMED Code(s): 35816282 (3) Penicillin allergy Current Visit: No Status: Acute Code(s): Z88.0 - ALLERGY STATUS TO PENICILLIN SNOMED Code(s): 07132701 Plan: 1patient presented to hospital with increasing abdominal as well as lower extremity swelling more likely related to excessive fluid examination secondary to her cirrhosis of the liver patient did have left lower extremity which is swollen and red slightly warm to touch concerning for cellulitis. 2patient did have abnormal CT as well as chest x-ray suspicious for pneumonia however the patient did not have significant respiratory symptoms to be suspicious for such. 3penicillin allergy that will limit the number of antibiotics even to use. 4patient did have normal procalcitonin we will make pneumonia to be less likely 5nursing staff has been advised to correct and even pressure application of Theo wrap to prevent uneven swelling and blister formation and continue with cefazolin Dictation was produced using [employer] dictation software. please excuse any gramma tical, word or spelling errors. Time with Patient: Less than 30
[2024-05-07] MEDS: POTASSIUM CHLORIDE ER 20 MEQ TAB.ER PO STA (16:49)
[2024-05-08 09:13] LABS: Basophils # (A) 0.06 X 10*3/uL (0.00-0.10); Basophils % (A) 0.8 %; Eosinophils # (A) 0.26 X 10*3/uL (0.04-0.35); Eosinophils % (A) 3.6 %; HCT 29.8 % (37.2-46.3); HGB 9.5 g/dL (12.0-15.0); Lymphocytes # (A) 1.39 X 10*3/uL (0.90-5.00); Lymphocytes % (A) 19.3 %; MCH 31.5 pg (27.0-32.0); MCHC 31.9 g/dL (32.0-37.0); MCV 98.7 FL (80.0-97.0); Mean Platelet Volume 11.5 FL (9.5-12.2); Monocytes # (A) 0.61 X 10*3/uL (0.20-1.00); Monocytes % (A) 8.5 %; NRBC Per 100 WBC 0 X 10*3/uL (0.00-0.01); Neutrophils # (A) 4.82 X 10*3/uL (1.80-7.70); Neutrophils % (A) 66.8 %; Platelet Count 103 X 10*3/uL (140-440); RBC 3.02 X 10*6/uL (4.10-5.20); RDW 22.5 % (11.5-14.5); WBC 7.21 X 10*3/uL (4.50-10.00)
--- NOTE | 2024-05-08 09:38 | P.PN ---
Subjective Progress Note Date: 05/08/24 Principal diagnosis: Massive ascites s/p large-volume paracentesis with removal of 8.2 L Right lower lobe pneumonia Cellulitis of both upper extremity Hepatic encephalopathy Extensive lower extremity abdominal wall edema with weeping of his skin Hypoxic respiratory failure with oxygen at nighttime Sleep disordered breathing and sleep apnea May 08, 2024, patient seen eval examined during rounds sitting upright in the chair, dressing is off diffuse erythema and edema up to thigh, With inflammatory changes in the lower extremity slightly improved from, abdomen is more distended and tense, discussed with RN will place a consultation for IR to do a large- volume paracentesis, patient remains on Lasix drip 5 mg an hour with adequate urine output, in addition patient has been IV cefazolin as well I's and O's reviewed and last 72 hours patient has been -3.6 L labs have been reviewed hemoglobin hematocrit remained stable with normal WBC count, platelet count also remained stable history not done today, medications reviewed May 07 2024, patient seen eval examined during rounds labs reviewed medications and care plan discussed, patient sitting upright in the chair is swelling in the lower extremity as well as the thigh and trunk stabilized however inflammatory changes are still there, patient remains on IV cefazolin tolerating very well, remains on Lasix drip which seems to be helping, patient remains on midodrine and continuation of home medications including sodium bicarb as well as rifaximin mean and antidepressant. Today reviewed CBC fairly stable, platelet count low but stable, sodium is 135 potassium 3.1 BUN/creatinine is 22 1.4 continue to improve due to improved renal perfusion, potassium is low being repleted May 06, 2024, patient seen evaluate examined during rounds labs reviewed medication care plan discussed, patient remains on Lasix drip 5 mg an hour, also on broad-spectrum IV antibiotic with Unasyn, acetic fluid culture no growth so far, Gram stain negative. Sodium is 133 potassium 2.8 BUN/creatinine is 26/1.51 continue to improve with diuresis. Patient remains on IV cefazolin with bronchodilators Dilaudid for pain control, lactulose and midodrine also getting rifaximin mean and white count for hepatic encephalopathy. May 05, 2024, patient seen evaluate examined labs reviewed medications and care plan discussed, overall respiratory status is stable on broad-spectrum antibiotic however patient has extensive edema throughout the body especially in the legs with weeping skin will discuss with nephrology about starting Lasix drip for diuresis, chest x-ray from today reviewed stable infiltrate no significant change Patient is a 44-year-old female with a past medical history significant for reflux cirrhosis of the liver nonalcoholic recently did have admission to the hospital for hypo natremia she was also noted to have significant left lower extremity cellulitis and did have a UTI patient subs equently has been discharged home has been brought back to the hospital concerning for increasing swelling to bilateral lower extremity no also involving the right leg and also complaining of increasing shortness of breath patient symptom has been getting worse for the last 2 to 3 days patient denies high-grade fever or any chills and no fever have been recorded on presentation to the hospital patient was tachycardic on admission subsequently resolved she was not hypotensive or hypoxic and no need for supplemental oxygen patient did have white count of 7.3 BUN and creatinine has been mildly elevated patient did have a chest x-ray airspace opacity projecting over the spine correlate for pneumonia patient did have abdominal pelvis CT ascites extensive swelling to the subcutaneous tissue right lower lobe infiltrate correlate for pneumonia splenomegaly patient was started on Rocephin and Zithromax has been admitted to hospital, she has a large-volume paracentesis over 8.2 L of fluid removed. Her admitted chest x-ray significant for airspace opacities suggestive of pneumonia. CT scan of the abdomen pelvis extensive subcutaneous edema as well as ascites, Objective - Vital Signs Vital signs: Vital Signs Temp 98.6 F 05/08/24 02:00 Pulse 86 05/08/24 08:24 Resp 17 05/07/24 13:48 BP 127/74 05/08/24 05:40 Pulse Ox 94 L 05/08/24 02:00 FiO2 Intake & Output 05/07/24 05/08/24 05/08/24 18:59 06:59 18:59 Intake Total 100 Output Total 1650 400 Balance -1550 -400 Intake: Intake, IV Titration 100 Amount Furosemide 100 mg In 100 Sodium Chloride 0.9% 90 ml @ 5 MG/HR 5 mls/hr IV .Q20H [facility] Rx#:[id number] Output: Drainage 150 Right Abdomen 150 Urine 1500 400 Other: Voiding Method Toilet - Exam - Constitutional General appearance: morbidly obese - EENT Eyes: EOMI, PERRLA Ears: bilateral: normal - Neck Carotids: bilateral: upstroke normal Thyroid: negative: normal size - Respiratory Respiratory: bilateral: diminished - Cardiovascular Rhythm: regular Heart sounds: normal: S1, S2 - Gastrointestinal General gastrointestinal: distended - Integumentary Extensive edema of lower extremity and generalized body Integumentary: decreased turgor - Neurologic Neurologic: CNII-XII intact - Musculoskeletal Musculoskeletal: gait normal, generalized weakness, strength equal bilaterally - Psychiatric Psychiatric: A&O x's 3, appropriate affect, intact judgment & insight - Labs CBC & Chem 7: 05/08/24 02:33 05/07/24 04:29 Labs: Abnormal Lab Results - Last 24 Hours (Table) 05/07/24 05/07/24 05/07/24 Range/Units 04:29 04:29 04:29 RBC 2.88 L (4.10-5.20) X 10*6/uL Hgb 9.3 L (12.0-15.0) g/dL Hct 28.6 L (37.2-46.3) % MCV 99.3 H (80.0-97.0) FL MCH 32.3 H (27.0-32.0) pg MCHC (32.0-37.0) g/dL RDW 22.4 H (11.5-14.5) % Plt Count 106 L (140-440) X 10*3/uL MPV 13.0 H (9.5-12.2) FL Immature Gran # (0.00-0.04) X 10*3/uL Potassium 3.1 L (3.5-5.5) mmol/L Carbon Dioxide 20.2 L (21.6-31.8) mmol/L Est GFR (CKD-EPI) 48 L (>=60) Calcium 7.7 L (8.7-10.3) mg/dL Magnesium 1.3 L (1.5-2.4) mg/dL Ammonia (<30) umol/L 05/08/24 05/08/24 Range/Units 02:33 02:33 RBC 3.02 L (4.10-5.20) X 10*6/uL Hgb 9.5 L (12.0-15.0) g/dL Hct 29.8 L (37.2-46.3) % MCV 98.7 H (80.0-97.0) FL MCH (27.0-32.0) pg MCHC 31.9 L (32.0-37.0) g/dL RDW 22.5 H (11.5-14.5) % Plt Count 103 L (140-440) X 10*3/uL MPV (9.5-12.2) FL Immature Gran # 0.07 H (0.00-0.04) X 10*3/uL Potassium (3.5-5.5) mmol/L Carbon Dioxide (21.6-31.8) mmol/L Est GFR (CKD-EPI) (>=60) Calcium (8.7-10.3) mg/dL Magnesium (1.5-2.4) mg/dL Ammonia 51 H (<30) umol/L Microbiology - Last 24 Hours (Table) 05/04/24 11:46 Gram Stain - Preliminary Ascites Fluid Body Fluid Culture - Preliminary 05/04/24 08:43 Blood Culture - Preliminary Blood Assessment and Plan Assessment: Generalized anasarca on IV furosemide continuous drip 5 mg an hour tolerating well Massive ascites s/p large-volume paracentesis with removal of 8.2 L Right lower lobe pneumonia Severe hypokalemia, on replacement slowly improve Cellulitis of both upper extremity Hepatic encephalopathy Extensive lower extremity abdominal wall edema with weeping of his skin Hypoxic respiratory failure with oxygen at nighttime Sleep disordered breathing and sleep apnea it Plan: Patient continued on potassium replacement protocol continued on Lasix drip Continue gentle diuresis with Lasix, drip renal function continued to improve Consult interventional radiology to another large-volume paracentesis Continue rifaximin mean and lactulose for hepatic encephalopathy Broad-spectrum antibiotic with Zithromax and Rocephin for right lower lobe pneumonia Continue supplemental oxygen at nighttime if respiratory distress noted consider using BiPAP machine sleep study if she is agreeable as outpatient basis Time with Patient: Greater than 30
--- NOTE | 2024-05-08 10:01 | P.PN ---
Subjective Progress Note Date: 05/08/24 Principal diagnosis: Ascites leak Patient doing well today. No new complaints. Still having serous drainage. Objective - Vital Signs Vital signs: Vital Signs Temp 97.9 F 05/08/24 07:44 Pulse 86 05/08/24 08:24 Resp 17 05/08/24 07:44 BP 110/68 05/08/24 07:44 Pulse Ox 96 05/08/24 07:44 FiO2 Intake & Output 05/07/24 05/08/24 05/08/24 18:59 06:59 18:59 Intake Total 100 Output Total 1650 400 Balance -1550 -400 Intake: Intake, IV Titration 100 Amount Furosemide 100 mg In 100 Sodium Chloride 0.9% 90 ml @ 5 MG/HR 5 mls/hr IV .Q20H [facility] Rx#:[id number] Output: Drainage 150 Right Abdomen 150 Urine 1500 400 Other: Voiding Method Toilet - Exam Abdomen: Soft, distended, serous drainage from 2 separate sites, nontender - Labs CBC & Chem 7: 05/08/24 02:33 05/07/24 04:29 Labs: Abnormal Lab Results - Last 24 Hours (Table) 05/07/24 05/07/24 05/07/24 Range/Units 04:29 04:29 04:29 RBC 2.88 L (4.10-5.20) X 10*6/uL Hgb 9.3 L (12.0-15.0) g/dL Hct 28.6 L (37.2-46.3) % MCV 99.3 H (80.0-97.0) FL MCH 32.3 H (27.0-32.0) pg MCHC (32.0-37.0) g/dL RDW 22.4 H (11.5-14.5) % Plt Count 106 L (140-440) X 10*3/uL MPV 13.0 H (9.5-12.2) FL Immature Gran # (0.00-0.04) X 10*3/uL Potassium 3.1 L (3.5-5.5) mmol/L Carbon Dioxide 20.2 L (21.6-31.8) mmol/L Est GFR (CKD-EPI) 48 L (>=60) Calcium 7.7 L (8.7-10.3) mg/dL Magnesium 1.3 L (1.5-2.4) mg/dL Ammonia (<30) umol/L 05/08/24 05/08/24 Range/Units 02:33 02:33 RBC 3.02 L (4.10-5.20) X 10*6/uL Hgb 9.5 L (12.0-15.0) g/dL Hct 29.8 L (37.2-46.3) % MCV 98.7 H (80.0-97.0) FL MCH (27.0-32.0) pg MCHC 31.9 L (32.0-37.0) g/dL RDW 22.5 H (11.5-14.5) % Plt Count 103 L (140-440) X 10*3/uL MPV (9.5-12.2) FL Immature Gran # 0.07 H (0.00-0.04) X 10*3/uL Potassium (3.5-5.5) mmol/L Carbon Dioxide (21.6-31.8) mmol/L Est GFR (CKD-EPI) (>=60) Calcium (8.7-10.3) mg/dL Magnesium (1.5-2.4) mg/dL Ammonia 51 H (<30) umol/L Microbiology - Last 24 Hours (Table) 05/04/24 11:46 Gram Stain - Preliminary Ascites Fluid Body Fluid Culture - Preliminary 05/04/24 08:43 Blood Culture - Preliminary Blood Assessment and Plan (1) Ascites Narrative/Plan: Patient with persistent ascites leak. Likely will require paracentesis tomorrow. Continue diuretics. Continue diet. Current Visit: Yes Status: Acute Code(s): R18.8 - OTHER ASCITES SNOMED Code(s): 303918718
[2024-05-08 10:32] LABS: BUN/Creat Ratio 13.33 Ratio (12.00-20.00); Calcium 7.5 mg/dL (8.7-10.3); Carbon Dioxide 19.6 mmol/L (21.6-31.8); Chloride 102 mmol/L (96-109); Glucose 114 mg/dL (70-110); Potassium 3.2 mmol/L (3.5-5.5); Sodium 134 mmol/L (135-145)
--- NOTE | 2024-05-08 11:37 | P.PN ---
Subjective patient is seen for follow-up for acute kidney injury and volume overload. Maintained on Lasix drip. Patient reports good urine output , 1.9 L charted for 24 hours labs show serum creatinine at 1.5 today potassium of 3.2 Legs are not wrapped today. Blister noted on right foot with significant erythema. Objective - Vital Signs Vital signs: Vital Signs Temp 97.9 F 05/08/24 07:44 Pulse 98 05/08/24 09:11 Resp 17 05/08/24 09:11 BP 110/68 05/08/24 07:44 Pulse Ox 96 05/08/24 07:44 FiO2 Intake & Output 05/07/24 05/08/24 05/08/24 18:59 06:59 18:59 Intake Total 100 Output Total 1650 400 Balance -1550 -400 Intake: Intake, IV Titration 100 Amount Furosemide 100 mg In 100 Sodium Chloride 0.9% 90 ml @ 5 MG/HR 5 mls/hr IV .Q20H [facility] Rx#:[id number] Output: Drainage 150 Right Abdomen 150 Urine 1500 400 Other: Voiding Method Toilet Toilet - Exam patient is awake, comfortable, no acute distress. Alert oriented 3. Examination of the heart S1 and S2 Examination of the lungs bilateral breath sounds are heard Abdomen is soft, obese, with a cystitis. Examination of lower extremities shows edema 3-4+ bilaterally with chronic skin changes. - Labs CBC & Chem 7: 05/08/24 02:33 05/08/24 02:33 Labs: Abnormal Lab Results - Last 24 Hours (Table) 05/07/24 05/08/24 05/08/24 Range/Units 04:29 02:33 02:33 RBC 3.02 L (4.10-5.20) X 10*6/uL Hgb 9.5 L (12.0-15.0) g/dL Hct 29.8 L (37.2-46.3) % MCV 98.7 H (80.0-97.0) FL MCHC 31.9 L (32.0-37.0) g/dL RDW 22.5 H (11.5-14.5) % Plt Count 103 L (140-440) X 10*3/uL Immature Gran # 0.07 H (0.00-0.04) X 10*3/uL Sodium 134 L (135-145) mmol/L Potassium 3.2 L (3.5-5.5) mmol/L Carbon Dioxide 19.6 L (21.6-31.8) mmol/L Anion Gap 12.40 H (4.00-12.00) mmol/L Est GFR (CKD-EPI) 44 L (>=60) Glucose 114 H (70-110) mg/dL Calcium 7.5 L (8.7-10.3) mg/dL Magnesium 1.3 L (1.5-2.4) mg/dL Ammonia (<30) umol/L 05/08/24 Range/Units 02:33 RBC (4.10-5.20) X 10*6/uL Hgb (12.0-15.0) g/dL Hct (37.2-46.3) % MCV (80.0-97.0) FL MCHC (32.0-37.0) g/dL RDW (11.5-14.5) % Plt Count (140-440) X 10*3/uL Immature Gran # (0.00-0.04) X 10*3/uL Sodium (135-145) mmol/L Potassium (3.5-5.5) mmol/L Carbon Dioxide (21.6-31.8) mmol/L Anion Gap (4.00-12.00) mmol/L Est GFR (CKD-EPI) (>=60) Glucose (70-110) mg/dL Calcium (8.7-10.3) mg/dL Magnesium (1.5-2.4) mg/dL Ammonia 51 H (<30) umol/L Microbiology - Last 24 Hours (Table) 05/04/24 11:46 Gram Stain - Preliminary Ascites Fluid Body Fluid Culture - Preliminary 05/04/24 08:43 Blood Culture - Preliminary Blood Assessment and Plan Assessment: 1. Acute kidney injury, most likely ATN. Patient is not oliguric. Maintained on midodrine due to hypotension. Renal function has improved. 2. Hyponatremia during last admission currently improved. Patient responded well to demeclocycline. 3. Volume overload, slowly improving. Maintained on Lasix drip 4. History of recent cholecystectomy 5. Non-gap metabolic acidosis associated with acute kidney injury Plan: Increase Lasix drip Continue with sodium bicarb. continue with midodrine Continue IV antibiotics Replace potassium Check labs a.m.
[2024-05-08] MEDS: POTASSIUM CHLORIDE ER 20 MEQ TAB.ER PO SCH (12:01)
--- NOTE | 2024-05-08 20:40 | CT ---
EXAMINATION TYPE: CT foot RT wo con DATE OF EXAM: 05/08/2024 COMPARISON: None HISTORY: right foot abscess CT DLP: 98.6 mGycm Automated exposure control for dose reduction was used. Contrast: None Technique: Axial images 3 mm thick sections. Reconstructed images in coronal and sagittal plane. FINDINGS: Diffuse soft tissue swelling is present throughout the right foot. Three-D reconstructed images perfo rmed on a separate computer by the technologist to repeat view and appear unremarkable. Joint spaces are preserved. Deep musculature appears normal. No suspicious subcutaneous abscess formation is evident. No deep cortical erosion is evident suggest osteomyelitis. IMPRESSION: 1. SOFT TISSUE SWELLING AND INFLAMMATORY CHANGE THROUGH THE SKIN APPEARS TO REMAIN SUPERFICIAL. NO DE EP UNDERLYING ABSCESS IS IDENTIFIED BY CT EXAMINATION. 2. NO SUSPICIOUS CORTICAL EROSION IS EVIDENT TO SUGGEST OSTEOMYELITIS. [facility], Workstation: [facility], 05/08/2024 8:38 PM
[2024-05-08] MEDS: DAPTOmycin 500 MG in SODIUM CHLORIDE 0.9% 50 ML IVPB SCH (21:18)
[2024-05-08] MEDS: ZINC OXIDE PASTE (Z-GUARD) 1 APPLIC TOPICAL PRN (21:18)
--- NOTE | 2024-05-08 22:06 | P.PN ---
Subjective Progress Note Date: 05/08/24 Principal diagnosis: Reason for follow-up is lower extremity cellulitis Patient is a 44-year-old female with a past medical history significant for reflux cirrhosis of the liver nonalcoholic has been brought to the hospital concerning for increasing swelling to lower extremity as well as abdominal noticed to have redness to the left leg concerning for cellulitis did have abnormal CT chest x-ray concerning for possible right lower lobe pneumonia. On today's evaluation that is 05/08/2024,the patient denies any fever or any chills, patient is breathing comfortably on room air, the patient denies chest pain shortness of breath and no significant cough, patient denies nausea or vomiting abdominal distention but no significant pain still have swelling to the lower extremity with more swelling to the right leg especially foot area but denies any worsening pain. The patient white count 7.21, creatinine is 1.5 Objective - Vital Signs Vital signs: Vital Signs Temp 98.1 F 05/08/24 14:26 Pulse 88 05/08/24 14:26 Resp 17 05/08/24 14:26 BP 135/71 05/08/24 14:26 Pulse Ox 94 L 05/08/24 14:26 FiO2 Intake & Output 05/07/24 05/08/24 05/08/24 18:59 06:59 18:59 Intake Total 100 79.083 Output Total 1650 400 Balance -1550 -400 79.083 Intake: Intake, IV Titration 100 79.083 Amount Furosemide 100 mg In 100 79.083 Sodium Chloride 0.9% 90 ml @ 5 MG/HR 5 mls/hr IV .Q20H [facility] Rx#:[id number] Output: Drainage 150 Right Abdomen 150 Urine 1500 400 Other: Voiding Method Toilet Toilet - Exam GENERAL DESCRIPTION: Middle-age female lying in bed in no distress RESPIRATORY SYSTEM: Unlabored breathing , decreased breath sounds at bases HEART: S1 S2 regular rate and rhythm , ABDOMEN: Soft , no tenderness EXTREMITIES: Left leg swelling and redness have decreased right leg with more swelling redness and did have a pustule on the dorsum aspect of the right foot - Labs CBC & Chem 7: 05/08/24 02:33 05/08/24 02:33 Labs: Abnormal Lab Results - Last 24 Hours (Table) 05/08/24 05/08/24 05/08/24 Range/Units 02:33 02:33 02:33 RBC 3.02 L (4.10-5.20) X 10*6/uL Hgb 9.5 L (12.0-15.0) g/dL Hct 29.8 L (37.2-46.3) % MCV 98.7 H (80.0-97.0) FL MCHC 31.9 L (32.0-37.0) g/dL RDW 22.5 H (11.5-14.5) % Plt Count 103 L (140-440) X 10*3/uL Immature Gran # 0.07 H (0.00-0.04) X 10*3/uL Sodium 134 L (135-145) mmol/L Potassium 3.2 L (3.5-5.5) mmol/L Carbon Dioxide 19.6 L (21.6-31.8) mmol/L Anion Gap 12.40 H (4.00-12.00) mmol/L Est GFR (CKD-EPI) 44 L (>=60) Glucose 114 H (70-110) mg/dL Calcium 7.5 L (8.7-10.3) mg/dL Ammonia 51 H (<30) umol/L Microbiology - Last 24 Hours (Table) 05/04/24 11:46 Gram Stain - Final Ascites Fluid Body Fluid Culture - Final 05/04/24 08:43 Blood Culture - Preliminary Blood Assessment and Plan (1) Bilateral leg edema Current Visit: Yes Status: Acute Code(s): R60.0 - LOCALIZED EDEMA SNOMED Code(s): 776191803 (2) Congestive heart failure Current Visit: Yes Status: Acute Code(s): I50.9 - HEART FAILURE, UNSPECIFIED SNOMED Code(s): 46907916 (3) Penicillin allergy Current Visit: No Status: Acute Code(s): Z88.0 - ALLERGY STATUS TO PENICILLIN SNOMED Code(s): 86937763 Plan: 1patient presented to hospital with increasing abdominal as well as lower extremity swelling more likely related to excessive fluid examination secondary to her cirrhosis of the liver patient did have left lower extremity which is swollen and red slightly warm to touch concerning for cellulitis. 2patient did have abnormal CT as well as chest x-ray suspicious for pneumonia however the patient did not have significant respiratory symptoms to be suspicious for such. 3penicillin allergy that will limit the number of antibiotics even to use. 4patient did have normal procalcitonin we will make pneumonia to be less likely 5patient did have improvement to the left leg cellulitis however worsening finally has been noticed on the right leg and foot area concerning for posterior and possible abscess will obtain a CT and switch antibiotic therapy to daptomycin Dictation was produced using [employer] dictation software. please excuse any grammatical, word or spelling errors. Time with Patient: Less than 30
[2024-05-09 08:46] LABS: BUN/Creat Ratio 12.47 Ratio (12.00-20.00); Blood Urea Nitrogen 18.7 mg/dL (9.0-27.0); Calcium 7.6 mg/dL (8.7-10.3); Carbon Dioxide 19.7 mmol/L (21.6-31.8); Chloride 102 mmol/L (96-109); Glucose 96 mg/dL (70-110); Potassium 3.4 mmol/L (3.5-5.5); Sodium 132 mmol/L (135-145)
[2024-05-09 08:47] LABS: Basophils # (A) 0.06 X 10*3/uL (0.00-0.10); Basophils % (A) 0.8 %; Eosinophils # (A) 0.31 X 10*3/uL (0.04-0.35); Eosinophils % (A) 4.1 %; HGB 9.5 g/dL (12.0-15.0); Lymphocytes # (A) 1.28 X 10*3/uL (0.90-5.00); Lymphocytes % (A) 16.7 %; MCH 31.6 pg (27.0-32.0); MCHC 32.8 g/dL (32.0-37.0); MCV 96.3 FL (80.0-97.0); Mean Platelet Volume 12.4 FL (9.5-12.2); Monocytes # (A) 0.65 X 10*3/uL (0.20-1.00); Monocytes % (A) 8.5 %; NRBC Per 100 WBC 0 X 10*3/uL (0.00-0.01); Neutrophils # (A) 5.27 X 10*3/uL (1.80-7.70); Neutrophils % (A) 68.9 %; Platelet Count 128 X 10*3/uL (140-440); RBC 3.01 X 10*6/uL (4.10-5.20); WBC 7.65 X 10*3/uL (4.50-10.00)
--- NOTE | 2024-05-09 10:20 | P.PN ---
Subjective Patient seen in follow-up for acute kidney injury and volume overload. Maintained on Lasix drip. Nonoliguric. Renal function stable. Vital signs are stable. General: No acute distress. HEENT: Head exam is unremarkable. LUNGS: No audible rhonchi or wheezes. HEART: Rate and Rhythm are regular. ABDOMEN: Distention noted. EXTREMITITES: 3+ edema. Lower extremities wrapped. Objective - Vital Signs Vital signs: Vital Signs Temp 98.9 F 05/09/24 07:27 Pulse 101 H 05/09/24 10:05 Resp 16 05/09/24 07:27 BP 134/76 05/09/24 10:05 Pulse Ox 94 L 05/09/24 07:27 FiO2 Intake & Output 05/08/24 05/09/24 05/09/24 18:59 06:59 18:59 Intake Total 100.000 86.167 Output Total 300 Balance 100.000 -213.833 Intake: Intake, IV Titration 100.000 86.167 Amount Furosemide 100 mg In 100.000 86.167 Sodium Chloride 0.9% 90 ml @ 10 MG/HR 10 mls/hr IV .Q10H [facility] Rx#: [id number] Output: Urine 300 Other: Voiding Method Toilet Toilet # Voids 4 2 - Labs CBC & Chem 7: 05/09/24 02:42 05/09/24 02:42 Labs: Abnormal Lab Results - Last 24 Hours (Table) 05/08/24 05/09/24 05/09/24 Range/Units 02:33 02:42 02:42 RBC 3.01 L (4.10-5.20) X 10*6/uL Hgb 9.5 L (12.0-15.0) g/dL Hct 29.0 L (37.2-46.3) % RDW 22.0 H (11.5-14.5) % Plt Count 128 L (140-440) X 10*3/uL MPV 12.4 H (9.5-12.2) FL Immature Gran # 0.08 H (0.00-0.04) X 10*3/uL Sodium 134 L 132 L (135-145) mmol/L Potassium 3.2 L 3.4 L (3.5-5.5) mmol/L Carbon Dioxide 19.6 L 19.7 L (21.6-31.8) mmol/L Anion Gap 12.40 H (4.00-12.00) mmol/L Est GFR (CKD-EPI) 44 L 44 L (>=60) Glucose 114 H (70-110) mg/dL Calcium 7.5 L 7.6 L (8.7-10.3) mg/dL Microbiology - Last 24 Hours (Table) 05/04/24 11:46 Anaerobic Culture - Final Ascites Fluid 05/04/24 11:46 Gram Stain - Final Ascites Fluid Body Fluid Culture - Final Assessment and Plan Plan: Assessment: 1. Acute kidney injury secondary to ATN secondary to hepatorenal syndrome. Creatinine stable at 1.5. 2. Hypervolemic hyponatremia. 3. Hypokalemia from diuresis. 4. Liver cirrhosis with ascites. Paracentesis done May 04, 2024 with 8.2 L drained. Plan: Maintain Lasix drip. Add 1500 cc fluid restriction. Scheduled for another paracentesis. Will give 25 g IV albumin pre and postprocedure. Replace potassium.
[2024-05-09] MEDS ORDERED: ALBUMIN HUMAN 25% 50 ML in EMPTY BAG 1 BAG IVPB SCH (10:30)
[2024-05-09] MEDS: POTASSIUM CHLORIDE ER 20 MEQ TAB.ER PO STA (11:31)
[2024-05-09] MEDS: ALBUMIN HUMAN 25% 50 ML in EMPTY BAG 1 BAG IVPB SCH ×2 (11:32→21:48)
--- NOTE | 2024-05-09 12:09 | P.PN ---
Subjective Progress Note Date: 05/09/24 Principal diagnosis: Massive ascites s/p large-volume paracentesis with removal of 8.2 L Right lower lobe pneumonia Cellulitis of both upper extremity Hepatic encephalopathy Extensive lower extremity abdominal wall edema with weeping of his skin Hypoxic respiratory failure with oxygen at nighttime Sleep disordered breathing and sleep apnea May 09, 2024, patient seen eval examined during rounds labs reviewed medications reviewed Lasix drip has been stopped now, patient is getting small amount of albumin, remains on DuoNeb, on daptomycin and midodrine. Labs from to day reviewed patient is composed awake and alert hemoglobin hematocrit is 9.5/29 which remains stable, white cell count 7.6, CBC otherwise within normal limit, sodium 132 potassium 3.4, BUN/creatinine is 18/1.5 glucose 96 patient is scheduled for large-volume paracentesis later on this afternoon by interventional radiology May 08, 2024, patient seen eval examined during rounds sitting upright in the chair, dressing is off diffuse erythema and edema up to thigh, With inflammatory changes in the lower extremity slightly improved from, abdomen is more distended and tense, discussed with RN will place a consultation for IR to do a large- volume paracentesis, patient remains on Lasix drip 5 mg an hour with adequate urine output, in addition patient has been IV cefazolin as well I's and O's r eviewed and last 72 hours patient has been -3.6 L labs have been reviewed hemoglobin hematocrit remained stable with normal WBC count, platelet count also remained stable history not done today, medications reviewed May 07 2024, patient seen eval examined during rounds labs reviewed medications and care plan discussed, patient sitting upright in the chair is swelling in the lower extremity as well as the thigh and trunk stabilized however inflammatory changes are still there, patient remains on IV cefazolin tolerating very well, remains on Lasix drip which seems to be helping, patient remains on midodrine and continuation of home medications including sodium bicarb as well as rifaximin mean and antidepressant. Today reviewed CBC fairly stable, platelet count low but stable, sodium is 135 potassium 3.1 BUN/creatinine is 22 1.4 continue to improve due to improved renal perfusion, potassium is low being repleted May 06, 2024, patient seen evaluate examined during rounds labs reviewed medication care plan discussed, patient remains on Lasix drip 5 mg an hour, also on broad-spectrum IV antibiotic with Unasyn, acetic fluid culture no growth so far, Gram stain negative. Sodium is 133 potassium 2.8 BUN/creatinine is 26/1.51 continue to improve with diuresis. Patient remains on IV cefazolin with bronchodilators Dilaudid for pain control, lactulose and midodrine also getting rifaximin mean and white count for hepatic encephalopathy. May 05, 2024, patient seen evaluate examined labs reviewed medications and care plan discussed, overall respiratory status is stable on broad-spectrum antibiotic however patient has extensive edema throughout the body especially in the legs with weeping skin will discuss with nephrology about starting Lasix drip for diuresis, chest x-ray from today reviewed stable infiltrate no significant change Patient is a 44-year-old female with a past medical history significant for reflux cirrhosis of the liver nonalcoholic recently did have admission to the hospital for hypo natremia she was also noted to have significant left lower extremity cellulitis and did have a UTI patient subsequently has been discharged home has been brought back to the hospital concerning for increasing swelling to bilateral lower extremity no also involving the right leg and also complaining of increasing shortness of breath patient symptom has been getting worse for the last 2 to 3 days patient denies high-grade fever or any chills and no fever have been recorded on presentation to the hospital patient was tachycardic on admission subsequently resolved she was not hypotensive or hypoxic and no need for supplemental oxygen patient did have white count of 7.3 BUN and creatinine has been mildly elevated patient did have a chest x-ray airspace opacity projecting over the spine correlate for pneumonia patient did have abdominal pelvis CT ascites extensive swelling to the subcutaneous tissue right lower lobe infiltrate correlate for pneumonia splenomegaly patient was started on Rocephin and Zithromax has been admitted to hospital, she has a large-volume paracentesis over 8.2 L of fluid removed. Her admitted chest x-ray significant for airspace opacities suggestive of pneumonia. CT scan of the abdomen pelvis extensive subcutaneous edema as well as ascites, Objective - Vital Signs Vital signs: Vital Signs Temp 98.9 F 05/09/24 07:27 Pulse 101 H 05/09/24 10:05 Resp 16 05/09/24 10:00 BP 134/76 05/09/24 10:05 Pulse Ox 94 L 05/09/24 07:27 FiO2 Intake & Output 05/08/24 05/09/24 05/09/24 18:59 06:59 18:59 Intake Total 100.000 86.167 Output Total 300 Balance 100.000 -213.833 Intake: Intake, IV Titration 100.000 86.167 Amount Furosemide 100 mg In 100.000 86.167 Sodium Chloride 0.9% 90 ml @ 10 MG/HR 10 mls/hr IV .Q10H [facility] Rx#: [id number] Output: Urine 300 Other: Voiding Method Toilet Toilet Toilet # Voids 4 2 - Exam - Constitutional General appearance: morbidly obese - EENT Eyes: EOMI, PERRLA Ears: bilateral: normal - Neck Carotids: bilateral: upstroke normal Thyroid: negative: normal size - Respiratory Respiratory: bilateral: diminished - Cardiovascular Rhythm: regular Heart sounds: normal: S1, S2 - Gastrointestinal General gastrointestinal: distended - Integumentary Extensive edema of lower extremity and generalized body Integumentary: decreased turgor - Neurologic Neurologic: CNII-XII intact - Musculoskeletal Musculoskeletal: gait normal, generalized weakness, strength equal bilaterally - Psychiatric Psychiatric: A&O x's 3, appropriate affect, intact judgment & insight - Labs CBC & Chem 7: 05/09/24 02:42 05/09/24 02:42 Labs: Abnormal Lab Results - Last 24 Hours (Table) 05/09/24 05/09/24 Range/Units 02:42 02:42 RBC 3.01 L (4.10-5.20) X 10*6/uL Hgb 9.5 L (12.0-15.0) g/dL Hct 29.0 L (37.2-46.3) % RDW 22.0 H (11.5-14.5) % Plt Count 128 L (140-440) X 10*3/uL MPV 12.4 H (9.5-12.2) FL Immature Gran # 0.08 H (0.00-0.04) X 10*3/uL Sodium 132 L (135-145) mmol/L Potassium 3.4 L (3.5-5.5) mmol/L Carbon Dioxide 19.7 L (21.6-31.8) mmol/L Est GFR (CKD-EPI) 44 L (>=60) Calcium 7.6 L (8.7-10.3) mg/dL Microbiology - Last 24 Hours (Table) 05/04/24 11:46 Anaerobic Culture - Final Ascites Fluid 05/04/24 11:46 Gram Stain - Final Ascites Fluid Body Fluid Culture - Final Assessment and Plan Assessment: Generalized anasarca on IV furosemide continuous drip 5 mg an hour tolerating well, now discontinued Massive ascites s/p large-volume paracentesis with removal of 8.2 L, patient is scheduled for another later on today Right lower lobe pneumonia Severe hypokalemia, on replacement slowly improve Cellulitis of both upper extremity Hepatic encephalopathy Extensive lower extremity abdominal wall edema with weeping of his skin Hypoxic respiratory failure with oxygen at nighttime Sleep disordered breathing and sleep apnea it Plan: Patient continued on potassium replacement protocol off of Lasix drip Continue gentle diuresis with Lasix, every 12 now will defer to nephrology service Consult interventional radiology to another large-volume paracentesis being scheduled later on this afternoon Continue rifaximin mean and lactulose for hepatic encephalopathy Off of antibiotics, repeat x-ray no pneumonia seen Continue supplemental oxygen at nighttime if respiratory distress noted consider using BiPAP machine sleep study if she is agreeable as outpatient basis
--- NOTE | 2024-05-09 12:21 | P.PN ---
Subjective Progress Note Date: 05/09/24 CHIEF COMPLAINT: Shortness of breath HISTORY OF PRESENT ILLNESS: Patient had a large amount of of abdominal ascites. She had 8.2 L removed by paracentesis during this admission. Patient to be evaluated by IR service again for a possible paracentesis. The drainage from the old SALVADOR drain site continues to be less and less. She is going a couple of days now without even emptying the bag. She continues to have a small amount of ascites drainage from the old paracentesis site. Patient does complain of increased swelling in her right leg and increased erythema and a blister on the top of her foot. Biotics have been adjusted per infectious disease. Afebrile. WBC 7.65 Hgb 9.5 sodium 132 potassium is 3.4 PHYSICAL EXAM: VITAL SIGNS: Reviewed. GENERAL: no acute distress. Generalized edema ABDOMEN: Distended. Abdomen becoming more firm. Nontender. Old SALVADOR drain site with minimal serous fluid. NEUROLOGIC: Alert and oriented. Cranial nerves II through XII grossly intact. ASSESSMENT: 1. Massive abdominal ascites with 8.2 L removed with paracentesis 2. History of alcoholic liver cirrhosis with abdominal ascites 3. Status post laparoscopic cholecystectomy in March 2024 4. Severe protein calorie malnutrition PLAN: -Patient being evaluated for possible paracentesis today -No surgical intervention planned -Due to leaking of ascites fluid at the paracentesis site. Abdominal sutures will remain in place -Change ostomy application at old SALVADOR drain site today -Continue to increase protein intake -Fluid management per nephrology. Patient on Lasix drip. Physician Stunt Woman note has been reviewed by physician. Signing provider agrees with the documented findings, assessment, and plan of care. Objective - Vital Signs Vital signs: Vital Signs Temp 98.9 F 05/09/24 07:27 Pulse 101 H 05/09/24 10:05 Resp 16 05/09/24 10:00 BP 134/76 05/09/24 10:05 Pulse Ox 94 L 05/09/24 07:27 FiO2 Intake & Output 05/08/24 05/09/24 05/09/24 18:59 06:59 18:59 Intake Total 100.000 86.167 Output Total 300 Balance 100.000 -213.833 Intake: Intake, IV Titration 100.000 86.167 Amount Furosemide 100 mg In 100.000 86.167 Sodium Chloride 0.9% 90 ml @ 10 MG/HR 10 mls/hr IV .Q10H [facility] Rx#: [id number] Output: Urine 300 Other: Voiding Method Toilet Toilet Toilet # Voids 4 2 - Labs CBC & Chem 7: 05/09/24 02:42 05/09/24 02:42 Labs: Abnormal Lab Results - Last 24 Hours (Table) 05/09/24 05/09/24 Range/Units 02:42 02:42 RBC 3.01 L (4.10-5.20) X 10*6/uL Hgb 9.5 L (12.0-15.0) g/dL Hct 29.0 L (37.2-46.3) % RDW 22.0 H (11.5-14.5) % Plt Count 128 L (140-440) X 10*3/uL MPV 12.4 H (9.5-12.2) FL Immature Gran # 0.08 H (0.00-0.04) X 10*3/uL Sodium 132 L (135-145) mmol/L Potassium 3.4 L (3.5-5.5) mmol/L Carbon Dioxide 19.7 L (21.6-31.8) mmol/L Est GFR (CKD-EPI) 44 L (>=60) Calcium 7.6 L (8.7-10.3) mg/dL Microbiology - Last 24 Hours (Table) 05/04/24 11:46 Anaerobic Culture - Final Ascites Fluid 05/04/24 11:46 Gram Stain - Final Ascites Fluid Body Fluid Culture - Final
--- NOTE | 2024-05-09 14:48 | US ---
EXAMINATION TYPE: US paracentesis abd w/image DATE OF EXAM: 05/09/2024 CLINICAL HISTORY: 44-year-old female with distention and ascites, previous paracentesis last week. The procedure was discussed with the patient. The risks, complications, benefits, and alternatives we re discussed and any questions were answered. Informed consent was obtained. The patient was placed s upine on the ultrasound table and prepped and draped in the usual sterile fashion. All elements of maximal barrier technique were utilized. Ultrasound was utilized to determine the precise skin entry site along the left lower quadrant/left f lank. A 5 [place] One-Step catheter and trocar technique was utilized to access the ascites collection under direct ultrasound guidance. Approximately 7.0 liters of clear, straw-colored fluid was removed. Catheter was removed, hemostasis obtained, and a dressing placed. The patient was stable throughout the procedure and remained stable upon discharge from Department of Radiology. IMPRESSION: Successful therapeutic paracentesis under ultrasound guidance. 7.0 L of fluid removed. [facility], , 05/09/2024 2:45 PM
[2024-05-10 08:48] LABS: Magnesium 1.3 mg/dL (1.5-2.4)
[2024-05-10 08:49] LABS: ALT 8 U/L (8-44); AST 25 U/L (13-35); Albumin 2.7 g/dL (3.8-4.9); Alkaline Phosphatase 166 U/L (41-126); BUN/Creat Ratio 13.31 Ratio (12.00-20.00); Blood Urea Nitrogen 17.3 mg/dL (9.0-27.0); Calcium 7.6 mg/dL (8.7-10.3); Chloride 102 mmol/L (96-109); Globulin 1.5 g/dL (1.6-3.3); Glucose 172 mg/dL (70-110); Potassium 3.2 mmol/L (3.5-5.5); Sodium 131 mmol/L (135-145); Total Bilirubin 0.9 mg/dL (0.3-1.2); Total Protein 4.2 g/dL (6.2-8.2)
--- NOTE | 2024-05-10 08:52 | P.PN ---
Subjective Progress Note Date: 05/09/24 Principal diagnosis: Reason for follow-up is lower extremity cellulitis Patient is a 44-year-old female with a past medical history significant for reflux cirrhosis of the liver nonalcoholic has been brought to the hospital concerning for increasing swelling to lower extremity as well as abdominal noticed to have redness to the left leg concerning for cellulitis did have abnormal CT chest x-ray concerning for possible right lower lobe pneumonia. On today's evaluation that is 05/09/2024,the patient remains to be afebrile, patient is on room air not requiring supplemental oxygen and denies any shortness of breath no chest pain or cough.Patient denies having any nausea or vomiting, did have abdominal distention no diarrhea denies any worsening pain to the lower extremity. Patient white count 7.65, creatinine is 1.5 CT of the right foot was negative for any abscess Objective - Vital Signs Vital signs: Vital Signs Temp 98.9 F 05/09/24 07:27 Pulse 101 H 05/09/24 10:05 Resp 16 05/09/24 10:00 BP 134/76 05/09/24 10:05 Pulse Ox 94 L 05/09/24 07:27 FiO2 Intake & Output 05/08/24 05/09/24 05/09/24 18:59 06:59 18:59 Intake Total 100.000 86.167 Output Total 300 Balance 100.000 -213.833 Intake: Intake, IV Titration 100.000 86.167 Amount Furosemide 100 mg In 100.000 86.167 Sodium Chloride 0.9% 90 ml @ 10 MG/HR 10 mls/hr IV .Q10H [facility] Rx#: [id number] Output: Urine 300 Other: Voiding Method Toilet Toilet Toilet # Voids 4 2 - Exam GENERAL DESCRIPTION: Middle-age female lying in bed in no distress RESPIRATORY SYSTEM: Unlabored breathing , decreased breath sounds at bases HEART: S1 S2 regular rate and rhythm , ABDOMEN: Soft , no tenderness EXTREMITIES: Bilateral lower extremity currently wrapped in Theo wrap - Labs CBC & Chem 7: 05/09/24 02:42 05/10/24 03:24 Labs: Abnormal Lab Results - Last 24 Hours (Table) 05/09/24 05/09/24 Range/Units 02:42 02:42 RBC 3.01 L (4.10-5.20) X 10*6/uL Hgb 9.5 L (12.0-15.0) g/dL Hct 29.0 L (37.2-46.3) % RDW 22.0 H (11.5-14.5) % Plt Count 128 L (140-440) X 10*3/uL MPV 12.4 H (9.5-12.2) FL Immature Gran # 0.08 H (0.00-0.04) X 10*3/uL Sodium 132 L (135-145) mmol/L Potassium 3.4 L (3.5-5.5) mmol/L Carbon Dioxide 19.7 L (21.6-31.8) mmol/L Est GFR (CKD-EPI) 44 L (>=60) Calcium 7.6 L (8.7-10.3) mg/dL Microbiology - Last 24 Hours (Table) 05/04/24 11:46 Anaerobic Culture - Final Ascites Fluid 05/04/24 11:46 Gram Stain - Final Ascites Fluid Body Fluid Culture - Final Assessment and Plan (1) Bilateral leg edema Current Visit: Yes Status: Acute Code(s): R60.0 - LOCALIZED EDEMA SNOMED Code(s): 515985152 (2) Congestive heart failure Current Visit: Yes Status: Acute Code(s): I50.9 - HEART FAILURE, UNSPECIFIED SNOMED Code(s): 14491134 (3) Penicillin allergy Current Visit: No Status: Acute Code(s): Z88.0 - ALLERGY STATUS TO PENICILLIN SNOMED Code(s): 34756238 Plan: 1patient presented to hospital with increasing abdominal as well as lower extremity swelling more likely related to excessive fluid examination secondary to her cirrhosis of the liver patient did have left lower extremity which is swollen and red slightly warm to touch concerning for cellulitis. 2patient did have abnormal CT as well as chest x-ray suspicious for pneumonia however the patient did not have significant respiratory symptoms to be suspicious for such. 3penicillin allergy that will limit the number of antibiotics even to use. 4patient did have normal procalcitonin we will make pneumonia to be less likely 5patient right lower extremity for CT negative for any abscess we will continue the patient on daptomycin reevaluate the wound tomorrow the time of dressing changes Dictation was produced using [employer] dictation software. please excuse any grammatical, word or spelling errors. Time with Patient: Less than 30
--- NOTE | 2024-05-10 09:22 | P.PN ---
Subjective Patient seen in follow-up for acute kidney injury and volume overload. Maintained on Lasix drip. Nonoliguric. Renal function better. Vital signs are stable. General: No acute distress. HEENT: Head exam is unremarkable. LUNGS: No audible rhonchi or wheezes. HEART: Rate and Rhythm are regular. ABDOMEN: Obese, nontender. EXTREMITITES: 3+ edema. Lower extremities wrapped. Objective - Vital Signs Vital signs: Vital Signs Temp 98.6 F 05/10/24 08:00 Pulse 90 05/10/24 08:00 Resp 16 05/10/24 08:00 BP 105/62 05/10/24 08:00 Pulse Ox 94 L 05/10/24 08:00 FiO2 Intake & Output 05/09/24 05/10/24 05/10/24 18:59 06:59 18:59 Intake Total 100 100 Balance 100 100 Intake: Intake, IV Titration 100 100 Amount Furosemide 100 mg In 100 100 Sodium Chloride 0.9% 90 ml @ 10 MG/HR 10 mls/hr IV .Q10H [facility] Rx#: [id number] Other: Voiding Method Toilet # Voids 4 2 # Bowel Movements 2 - Labs CBC & Chem 7: 05/09/24 02:42 05/10/24 03:24 Labs: Abnormal Lab Results - Last 24 Hours (Table) 05/10/24 Range/Units 03:24 Sodium 131 L (135-145) mmol/L Potassium 3.2 L (3.5-5.5) mmol/L Carbon Dioxide 17.0 L (21.6-31.8) mmol/L Est GFR (CKD-EPI) 52 L (>=60) Glucose 172 H (70-110) mg/dL Calcium 7.6 L (8.7-10.3) mg/dL Magnesium 1.3 L (1.5-2.4) mg/dL Alkaline Phosphatase 166 H (41-126) U/L Total Protein 4.2 L (6.2-8.2) g/dL Albumin 2.7 L (3.8-4.9) g/dL Globulin 1.5 L (1.6-3.3) g/dL Microbiology - Last 24 Hours (Table) 05/04/24 08:43 Blood Culture - Final Blood Assessment and Plan Plan: Assessment: 1. Acute kidney injury secondary to ATN secondary to hepatorenal syndrome. Renal function better. Creatinine 1.3. 2. Hypervolemic hyponatremia. 3. Hypokalemia from diuresis And hypomagnesemia. 4. Liver cirrhosis with ascites. Paracentesis done May 04, 2024 with 8.2 L drained. Underwent another paracentesis May 09, 2024 with 7 L drained. 5. Hypomagnesemia from diuresis. Plan: Maintain Lasix drip. Maintain 1500 cc fluid restriction. Replace potassium and magnesium. Samsca 7.5 mg once today.
[2024-05-10] MEDS: POTASSIUM CHLORIDE ER 20 MEQ TAB.ER PO STA (10:14)
[2024-05-10] MEDS: TOLVAPTAN 15 MG TABLET PO ONE (11:14)
[2024-05-10] MEDS: MAGNESIUM SULFATE-D5W PMX 1 GM in DEXTROSE/WATER 1 100ML.BAG IVPB SCH (13:01)
--- NOTE | 2024-05-10 13:35 | P.PN ---
Subjective Progress Note Date: 05/10/24 CHIEF COMPLAINT: Shortness of breath HISTORY OF PRESENT ILLNESS: Patient had a second paracentesis completed yesterday with 7 L removed. Patient does report her abdomen feels softer. She still has lower extremity edema. Patient having minimal ascites drainage from the old SALVADOR drain site and old paracentesis site. Afebrile. PHYSICAL EXAM: VITAL SIGNS: Reviewed. GENERAL: no acute distress. Generalized edema ABDOMEN: Distended. Softer today. Nontender. Old SALVADOR drain site with minimal serous fluid. Old suture in place in mid abdomen. Small suture on the left abdomen came out spontaneously. NEUROLOGIC: Alert and oriented. Cranial nerves II through XII grossly intact. ASSESSMENT: 1. Massive abdominal ascites with 2 paracentesis during this admission 2. History of alcoholic liver cirrhosis with abdominal ascites 3. Status post laparoscopic cholecystectomy in March 2024 4. Severe protein calorie malnutrition PLAN: -No surgical intervention planned -Continue to increase protein intake -Continue to monitor ascites drainage from old SALVADOR drain site. Drainage is becoming less -Fluid management per nephrology. Patient on Lasix drip. Physician Control Officer Manager note has been reviewed by physician. Signing provider agrees with the documented findings, assessment, and plan of care. Objective - Vital Signs Vital signs: Vital Signs Temp 98.6 F 05/10/24 08:00 Pulse 90 05/10/24 08:31 Resp 16 05/10/24 08:31 BP 105/62 05/10/24 08:00 Pulse Ox 94 L 05/10/24 08:00 FiO2 Intake & Output 05/09/24 05/10/24 05/10/24 18:59 06:59 18:59 Intake Total 100 100 67.167 Balance 100 100 67.167 Intake: Intake, IV Titration 100 100 67.167 Amount Furosemide 100 mg In 100 100 67.167 Sodium Chloride 0.9% 90 ml @ 10 MG/HR 10 mls/hr IV .Q10H [facility] Rx#: [id number] Other: Voiding Method Toilet Toilet # Voids 4 2 4 # Bowel Movements 2 2 - Labs CBC & Chem 7: 05/09/24 02:42 05/10/24 03:24 Labs: Abnormal Lab Results - Last 24 Hours (Table) 05/10/24 Range/Units 03:24 Sodium 131 L (135-145) mmol/L Potassium 3.2 L (3.5-5.5) mmol/L Carbon Dioxide 17.0 L (21.6-31.8) mmol/L Est GFR (CKD-EPI) 52 L (>=60) Glucose 172 H (70-110) mg/dL Calcium 7.6 L (8.7-10.3) mg/dL Magnesium 1.3 L (1.5-2.4) mg/dL Alkaline Phosphatase 166 H (41-126) U/L Total Protein 4.2 L (6.2-8.2) g/dL Albumin 2.7 L (3.8-4.9) g/dL Globulin 1.5 L (1.6-3.3) g/dL Microbiology - Last 24 Hours (Table) 05/04/24 08:43 Blood Culture - Final Blood
--- NOTE | 2024-05-10 14:08 | P.PN ---
Subjective Progress Note Date: 05/10/24 Principal diagnosis: Reason for follow-up is lower extremity cellulitis Patient is a 44-year-old female with a past medical history significant for reflux cirrhosis of the liver nonalcoholic has been brought to the hospital concerning for increasing swelling to lower extremity as well as abdominal noticed to have redness to the left leg concerning for cellulitis did have abnormal CT chest x-ray concerning for possible right lower lobe pneumonia. On today's evaluation that is 05/10/2024, the patient continues to be afebrile, the patient is on room air and breathing comfortably, the Pt denies having any chest pain or cough, the patient denies having any abdominal pain no vomiting or any diarrhea denies pain to the right lower extremity. Patient did have a creatinine 1.3 no CBC was done today Objective - Vital Signs Vital signs: Vital Signs Temp 98.6 F 05/10/24 08:00 Pulse 90 05/10/24 08:31 Resp 16 05/10/24 08:31 BP 105/62 05/10/24 08:00 Pulse Ox 94 L 05/10/24 08:00 FiO2 Intake & Output 05/09/24 05/10/24 05/10/24 18:59 06:59 18:59 Intake Total 100 100 67.167 Balance 100 100 67.167 Intake: Intake, IV Titration 100 100 67.167 Amount Furosemide 100 mg In 100 100 67.167 Sodium Chloride 0.9% 90 ml @ 10 MG/HR 10 mls/hr IV .Q10H [facility] Rx#: [id number] Other: Voiding Method Toilet Toilet # Voids 4 2 4 # Bowel Movements 2 2 - Exam GENERAL DESCRIPTION: Middle-age female lying in bed in no distress RESPIRATORY SYSTEM: Unlabored breathing , decreased breath sounds at bases HEART: S1 S2 regular rate and rhythm , ABDOMEN: Soft , no tenderness EXTREMITIES: Right lower extremity swelling redness slightly decreased did have a blister on the right foot that has ruptured but no purulent drainage - Labs CBC & Chem 7: 05/09/24 02:42 05/10/24 03:24 Labs: Abnormal Lab Results - Last 24 Hours (Table) 05/10/24 Range/Units 03:24 Sodium 131 L (135-145) mmol/L Potassium 3.2 L (3.5-5.5) mmol/L Carbon Dioxide 17.0 L (21.6-31.8) mmol/L Est GFR (CKD-EPI) 52 L (>=60) Glucose 172 H (70-110) mg/dL Calcium 7.6 L (8.7-10.3) mg/dL Magnesium 1.3 L (1.5-2.4) mg/dL Alkaline Phosphatase 166 H (41-126) U/L Total Protein 4.2 L (6.2-8.2) g/dL Albumin 2.7 L (3.8-4.9) g/dL Globulin 1.5 L (1.6-3.3) g/dL Microbiology - Last 24 Hours (Table) 05/04/24 08:43 Blood Culture - Final Blood Assessment and Plan (1) Bilateral leg edema Current Visit: Yes Status: Acute Code(s): R60.0 - LOCALIZED EDEMA SNOMED Code(s): 970325596 (2) Congestive heart failure Current Visit: Yes Status: Acute Code(s): I50.9 - HEART FAILURE, UNSPECIFIED SNOMED Code(s): 11407012 (3) Penicillin allergy Current Visit: No Status: Acute Code(s): Z88.0 - SNOMED Code(s): 67201499 Plan: 1patient presented to hospital with increasing abdominal as well as lower extremity swelling more likely related to excessive fluid examination secondary to her cirrhosis of the liver patient did have left lower extremity which is swollen and red slightly warm to touch concerning for cellulitis. 2patient did have abnormal CT as well as chest x-ray suspicious for pneumonia however the patient did not have significant respiratory symptoms to be suspicious for such. 3penicillin allergy that will limit the number of antibiotics even to use. 4patient did have normal procalcitonin we will make pneumonia to be less likely 5patient right lower extremity for CT negative for any abscess 6we will continue the patient on daptomycin Aquacel silver dressing to the right foot wound followed by Theo wrap once again discussed with the nursing staff to apply Theo wrap continuously and not to pressure at the ankle so the s welling of the foot can decrease Dictation was produced using [employer] dictation software. please excuse any grammatical, word or spelling errors. Time with Patient: Less than 30
[2024-05-10 15:17] VITALS: BMI 46.3
--- NOTE | 2024-05-11 05:05 | PN ---
PROGRESS NOTE SUBJECTIVE: A 44-year-old white female. Continues to have large amounts of edema, redness to her extremities. Seen by Dr. Kaba for infection. Chronic kidney disease. GFR is 52. She was given IV Lasix drip. Sodium 131. OBJECTIVE: CARDIOVASCULAR: S1, S2. LUNGS: Transmitted upper sounds. HEMATOLOGIC: 3+ edema. LABORATORY DATA: White count 7.65. Hemoglobin is 9.5, sodium 131, potassium is 3.0, creatinine 1.3, BUN is 17.3. GFR is 22. Continue current treatment. Prognosis guarded. Follow up in the next 24 to 48 hours. Continue with IV Lasix. Possible IV antibiotics for legs, updrafts, home medications. Monitor renal function. MMODL / IJN: [id number] /
[2024-05-11 10:44] LABS: BUN/Creat Ratio 13.31 Ratio (12.00-20.00); Blood Urea Nitrogen 17.3 mg/dL (9.0-27.0); Calcium 7.7 mg/dL (8.7-10.3); Carbon Dioxide 19.9 mmol/L (21.6-31.8); Chloride 106 mmol/L (96-109); Glucose 96 mg/dL (70-110); Magnesium 1.8 mg/dL (1.5-2.4); Potassium 3.9 mmol/L (3.5-5.5); Sodium 135 mmol/L (135-145)
--- NOTE | 2024-05-11 12:33 | P.PN ---
Subjective Progress Note Date: 05/11/24 CHIEF COMPLAINT: Shortness of breath HISTORY OF PRESENT ILLNESS: Patient has had 2 paracentesis during this admission. Patient abdomen is again becoming more distended. She has had minimal ascites drainage from the old SALVADOR drain site. Remains on IV Lasix drip. PHYSICAL EXAM: VITAL SIGNS: Reviewed. GENERAL: no acute distress. Generalized edema ABDOMEN: Abdomen distended. Nontender. Old SALVADOR drain site with minimal ascites fluid. Old suture in place in mid abdomen. The 2 areas of paracentesis on the left side of the abdomen both having minimal ascites drainage NEUROLOGIC: Alert and oriented. Cranial nerves II through XII grossly intact. ASSESSMENT: 1. Massive abdominal ascites with 2 paracentesis during this admission 2. History of alcoholic liver cirrhosis with abdominal ascites 3. Status post laparoscopic cholecystectomy in March 2024 4. Severe protein calorie malnutrition PLAN: -Ultrasound for possible paracentesis ordered to evaluate amount of ascites fluid -No surgical intervention planned -Continue to increase protein intake -Continue to monitor ascites drainage from old SALVADOR drain site. Drainage is becoming less -Fluid management per nephrology. Patient on Lasix drip. Physician Can Reforming Machine Operator note has been reviewed by physician. Signing provider agrees with the documented findings, assessment, and plan of care. Objective - Vital Signs Vital signs: Vital Signs Temp 97.9 F 05/11/24 07:56 Pulse 84 05/11/24 09:41 Resp 16 05/11/24 09:41 BP 114/68 05/11/24 07:56 Pulse Ox 95 05/11/24 07:56 FiO2 Intake & Output 05/10/24 05/11/24 05/11/24 18:59 06:59 18:59 Intake Total 67.167 1560 96 Output Total 700 Balance 67.167 1560 -604 Weight 122.47 kg Intake: Intake, IV Titration 67.167 100 96 Amount Furosemide 100 mg In 67.167 100 96 Sodium Chloride 0.9% 90 ml @ 10 MG/HR 10 mls/hr IV .Q10H [facility] Rx#: [id number] Oral 1460 Output: Urine 700 Other: Voiding Method Toilet Toilet # Voids 4 3 # Bowel Movements 2 - Labs CBC & Chem 7: 05/09/24 02:42 05/11/24 05:46 Labs: Abnormal Lab Results - Last 24 Hours (Table) 05/11/24 05/11/24 Range/Units 05:46 09:04 Carbon Dioxide 19.9 L (21.6-31.8) mmol/L Est GFR (CKD-EPI) 52 L (>=60) Calcium 7.7 L (8.7-10.3) mg/dL Ammonia 56 H (<30) umol/L
--- NOTE | 2024-05-11 12:56 | US ---
EXAMINATION TYPE: US abdomen limited DATE OF EXAM: 05/11/2024 COMPARISON: 05/09/2024 CLINICAL INDICATION: Female, 44 years old with history of ascites TECHNIQUE: Scanning of the 4 abdominal quadrants for assessment of ascites fluid. FINDINGS: Edematous body wall tissues. Mild to moderate amount of ascites right flank. Very trace fluid along the left flank. IMPRESSION: Mild to moderate ascites along the right flank. Very trace fluid along the left flank. T his does not appear to be enough to warrant a therapeutic paracentesis at this time. Prominent edemat ous body wall tissues. [facility], , 05/11/2024 12:54 PM
--- NOTE | 2024-05-11 13:01 | P.CONS ---
History of Present Illness - Reason for Consult Consult date: 05/11/24 Liver cirrhosis Requesting physician: Tayler Shields - Chief Complaint Lower extremity swelling - History of Present Illness This a pleasant 44-year-old female who presented to the emergency department directed by her PCP for abnormal labs and lower extremity swelling. Patient has had multiple hospitalizations recently. She was seen by gastroenterology in April for cirrhosis of the liver with ascites. She was hospitalized for some time during that hospitalization and then rehospitalized. Patient's was diagnosed with alcohol induced liver cirrhosis about a year ago. She reportedly has not drank for about 6 months now. She had undergone cholecystectomy and underwent that on 03/21/[address] Corrigan and was hospitalized and discharged on 04/08/2024 following some reported complications following surgery.She had an upper endoscopy done 02/19/2024 with findings of antral ulcer, small distal esophageal varices with no stigmata of recent bleeding, and mild to moderate gastritis. During her last hospitalization she had severe hyponatremia and was following with nephrology. Diuretics deferred to nephrology. Discharge she was on Lasix 40 mg daily. She is now readmitted with nephrology following, she is currently on a Lasix drip. She had 2 paracentesis during this hospitalization on 05/03/2024 with 8 L removed and 05/09/2024 with 7 L fluid philomena aldo. She currently has a ostomy bag on the left side of her abdomen with leaking fluid. Still has some minimal leaking from cholecystectomy surgical sites on the right side of the abdomen. Patient is alert and oriented. She does have elevated ammonia she was started on lactulose and Xifaxan by her PCP Dr. Shields. Review of Systems REVIEW OF SYSTEMS: CARDIOPULMONARY: No chest pain or shortness of breath. Gastrointestinal: No abdominal pain. No nausea or vomiting. No hematemesis, coffee-ground emesis. No rectal bleeding, or melena. GENITOURINARY: No dysuria or hematuria. MUSCULOSKELETAL: Reports normal range of motion., Joint pain. SKIN: No rashes. No jaundice. Lower extremity cellulitis. Lower extremity edema. ENDOCRINE: No chills, fevers. No excessive weight gain or loss. No polydipsia or polyuria. PSYCHIATRIC: Unremarkable. NEUROLOGY: No change in mental status. Denies dizziness, headache. ENT: Vision unremarkable. CONSTITUTIONAL: No recent weight loss. No fever, chills, night sweats. Past Medical History Past Medical History: GERD/Reflux, Liver Disease Additional Past Medical History / Comment(s): retains fluid,anemia,cirrohis of liver non alcoholic, occ bloody stool, ulcer, bipolar, low sodium levels History of Any Multi-Drug Resistant Organisms: VRE Year Discovered:: 04/20/24 MDRO Source:: urine Past Surgical History: Cholecystectomy, EPS Additional Past Surgical History / Comment(s): has had 4 scopes, paracentesis unable to get any fluid out at the time., paracentesis Past Anesthesia/Blood Transfusion Reactions: No Reported Reaction Additional Past Anesthesia/Blood Transfusion Reaction / Comm: 3 units of blood transfused in around february 03. Past Psychological History: Anxiety, Bipolar Smoking Status: Current some day smoker Past Alcohol Use History: Abuse Past Drug Use History: None Reported Medications and Allergies Home Medications Medication Instructions Recorded Confirmed Type Cariprazine HCl [Vraylar] 3 mg PO HS 03/20/23 05/03/24 History Pantoprazole [Protonix] 40 mg PO DAILY 03/20/23 05/03/24 History QUEtiapine [SEROquel] 100 mg PO HS 03/20/23 05/03/24 History Budesonide-Formot 160-4.5 Mcg 2 puff INHALATION RT-BID 30 Days 02/24/24 05/03/24 Rx [Symbicort 160-4.5 Mcg Inhaler] #1 each Dapagliflozin Propanediol [Farxiga] 5 mg PO DAILY 90 Days #90 tab 04/08/24 05/03/24 Rx Sodium Bicarbonate Tab 650 mg PO DAILY 90 Days #90 tab 04/08/24 05/03/24 Rx Gabapentin [Neurontin] 300 mg PO TID 04/16/24 05/03/24 History Ipratropium-Albuterol Nebulize 3 ml INHALATION RT-TID 04/16/24 05/03/24 History [Duoneb 0.5 mg-3 mg/3 ml Soln] Tiotropium 2.5 Mcg/Puff [Spiriva 1 puff INHALATION RT-DAILY 04/16/24 05/03/24 History Respimat 2.5 Mcg] Furosemide [Lasix] 40 mg PO DAILY 30 Days #30 tab 04/28/24 05/03/24 Rx oxyCODONE HCL [OxyIR] 5 mg PO Q6HR PRN 3 Days #10 tab 04/28/24 05/03/24 Rx Midodrine HCl [ProAmatine] 10 mg PO QID@06,10,14,18 05/03/24 05/03/24 History Nitrofurantoin Monohyd/M-Cryst 100 mg PO DAILY 05/03/24 05/03/24 History [Macrobid] Allergies Allergy/AdvReac Type Severity Reaction Status Date / Time Penicillins Allergy Anaphylaxis Verified 05/03/24 18:39 Physical Exam Vitals: Vital Signs Temp Pulse Pulse Resp BP BP Pulse Ox 05/11/24 07:56 97.9 F 84 16 114/68 95 05/11/24 06:19 84/50 05/11/24 02:00 97.7 F 83 96/59 97 05/10/24 19:52 97.8 F 86 103/62 97 05/10/24 18:54 88 05/10/24 18:45 85 05/10/24 14:59 92 05/10/24 14:52 90 05/10/24 14:00 98.6 F 81 15 102/61 94 L 05/10/24 08:31 90 16 Intake and Output 05/10/24 05/11/24 05/11/24 22:59 06:59 14:59 Intake Total 1560 Balance 1560 Intake: Intake, IV Titration 100 Amount Furosemide 100 mg In 100 Sodium Chloride 0.9% 90 ml @ 10 MG/HR 10 mls/hr IV .Q10H [facility] Rx#: [id number] Oral 1460 Other: # Voids 3 Weight 122.47 kg General appearance: The patient is alert, oriented, appears in no acute distress. HET: Head is normocephalic and atraumatic. Conjunctiva pink. Sclera anicteric. Neck: Supple without lymphadenopathy. Trachea midline. Heart: Regular. Lungs: Equal expansion, normal respiratory effort. Abdomen: Soft, nontender, mildly distended. Right side of abdomen and umbilicus with sutures in place from previous surgery. Left side abdomen with ostomy bag with about 10 cc of ascitic fluid. Skin: No rashes. No jaundice. Extremities: Bilateral lower extremity edema, right lower extremity erythema. Bilateral lower extremities wrapped with Theo wrap's Neurological: No focal deficits. Alert and oriented x3. Results CBC & Chem 7: 05/09/24 02:42 05/11/24 05:46 Labs: Abnormal Lab Results - Last 24 Hours (Table) 05/10/24 Range/Units 03:24 Sodium 131 L (135-145) mmol/L Potassium 3.2 L (3.5-5.5) mmol/L Carbon Dioxide 17.0 L (21.6-31.8) mmol/L Est GFR (CKD-EPI) 52 L (>=60) Glucose 172 H (70-110) mg/dL Calcium 7.6 L (8.7-10.3) mg/dL Magnesium 1.3 L (1.5-2.4) mg/dL Alkaline Phosphatase 166 H (41-126) U/L Total Protein 4.2 L (6.2-8.2) g/dL Albumin 2.7 L (3.8-4.9) g/dL Globulin 1.5 L (1.6-3.3) g/dL Assessment and Plan (1) Alcoholic cirrhosis of liver with ascites Narrative/Plan: 44-year-old female with alcohol cirrhosis of the liver with ascites. Has been in and out of the hospital with hepatorenal syndrome and hyponatremia. She continues with significant lower extremity edema. Status post 2 paracentesis this admission and currently on a Lasix drip. Will defer diuretic management to nephrology. No further workup from gastroenterology. Continue with alcohol abstinence. Current Visit: Yes Status: Acute Code(s): K70.31 - ALCOHOLIC CIRRHOSIS OF LIVER WITH ASCITES SNOMED Code(s): 984487547 (2) Bilateral leg edema Current Visit: Yes Status: Acute Code(s): R60.0 - LOCALIZED EDEMA SNOMED Code(s): 366416373 (3) Hyponatremia Current Visit: No Status: Acute Code(s): E87.1 - HYPO-OSMOLALITY AND HYPONATREMIA SNOMED Code(s): 25457752 (4) Hyperammonemia Narrative/Plan: Secondary to liver cirrhosis. Continue with lactulose, increased to 30 g 3 times daily Current Visit: Yes Status: Acute Code(s): E72.20 - DISORDER OF UREA CYCLE METABOLISM, UNSPECIFIED SNOMED Code(s): 1038996 Plan: 1. Continue symptomatic and supportive care 2. Diuretics per nephrology 3. Paracentesis as needed 4. Continue with alcohol abstinence 5. Encourage ambulation 6. Increase lactulose to 30 g 3 times daily 7. Repeat ammonia level tomorrow, daily labs Thank you for this consultation, we will continue to follow. Dr. Rachel Cuenca I agree with the dictator's note, documented as a scribe by Katiuska Fan.
--- NOTE | 2024-05-11 15:59 | P.PN ---
Subjective Progress Note Date: 05/11/24 Principal diagnosis: MEMO secondary to ATN secondary to hepatorenal syndrome Hospital course: Patient is a 44 year old female with PMH of liver cirrhosis and recent hospitalisation for hyponatremia treated with demeclocycline, who presented to the ED with abdominal distension and worsening edema on 05/03. She was admitted for massive ascites, right lower lobe pneumonia, cellulitis. 05/11/24 Patient seen today. She complains of lower abdominal pain, back pain and groin pain. Denies dysuria, weakness, chest pain and shortness of breath. She is non oliguric and renal function is better. Labs today show sodium 139, potassium 3.9, BUN 17.3, creatinine 1.3, GFR 52, magnesium 1.8. Objective - Vital Signs Vital signs: Vital Signs Temp 97.8 F 05/11/24 14:00 Pulse 92 05/11/24 14:00 Resp 18 05/11/24 14:00 BP 96/60 05/11/24 14:00 Pulse Ox 96 05/11/24 14:00 FiO2 Intake & Output 05/10/24 05/11/24 05/11/24 18:59 06:59 18:59 Intake Total 67.167 1560 96 Output Total 700 Balance 67.167 1560 -604 Weight 122.47 kg Intake: Intake, IV Titration 67.167 100 96 Amount Furosemide 100 mg In 67.167 100 96 Sodium Chloride 0.9% 90 ml @ 10 MG/HR 10 mls/hr IV .Q10H [facility] Rx#: [id number] Oral 1460 Output: Urine 700 Other: Voiding Method Toilet Toilet # Voids 4 3 # Bowel Movements 2 - Exam Vitals: T 97.8 F, P 92 bpm, RR 18, BP 96/60, O2 sat 96% on room air General: appears at stated age, obese Cardiovascular: S1 S2 reg, no murmur, rubs, or gallops Lungs: CTA bilateral, no rhonchi, no rales, no accessory muscle use Abdominal: firm and distended, non-tender to palpataion Extremities: 3+ pitting edema, redness bilaterally Neuro: Alert, Oriented - Labs CBC & Chem 7: 05/09/24 02:42 05/11/24 05:46 Labs: Abnormal Lab Results - Last 24 Hours (Table) 05/11/24 05/11/24 Range/Units 05:46 09:04 Carbon Dioxide 19.9 L (21.6-31.8) mmol/L Est GFR (CKD-EPI) 52 L (>=60) Calcium 7.7 L (8.7-10.3) mg/dL Ammonia 56 H (<30) umol/L Assessment and Plan Assessment: Acute kidney injury secondary to ATN secondary to hepatorenal syndrome. Renal function better. Creatinine today 1.3. Hypervolemic hyponatremia, improved Hypokalemia and hypomagnesemia from diuresis. Imporved Liver cirrhosis with ascites. Paracentesis done May 04, 2024 with 8.2 L drained. Underwent another paracentesis May 09, 2024 with 7 L drained. Plan: Maintain Lasix drip. Maintain 1500 cc fluid restriction. Maintenance Potassium 20meq daily and magnesium 400mg daily Strict I/O [facility] catheter Monitor BMP I have seen and examined the patient with resident and agree with A&P as written. s/p fan 05/10/24.
[2024-05-11] MEDS: LACTULOSE 20 GM/30 ML CUP PO SCH (16:54)
--- NOTE | 2024-05-12 08:23 | PN ---
PROGRESS NOTE SUBJECTIVE: A 44-year-old white female admitted with alcoholic liver cirrhosis, cellulitis of the legs, had 2 paracenteses so far more on the way hopefully. The patient continues to feel better, remains on daptomycin as possibly UTI and sodium bicarbonate, Lasix drip, she is getting currently. We are going to ensure she monitored renal function daily. Electrolytes are back for today. Continue current treatment and diuresis. Antibiotics. Prognosis guarded. OBJECTIVE: LUNGS: Clear. CARDIOVASCULAR: S1, S2. ABDOMEN: Distended. EXTREMITIES: Have 3+ edema. Prognosis guarded. Follow up in the next 24 to 48 hours. MMODL / IJN: [id number] /
[2024-05-12 08:51] LABS: Basophils # (A) 0.05 X 10*3/uL (0.00-0.10); Basophils % (A) 0.9 %; Eosinophils # (A) 0.29 X 10*3/uL (0.04-0.35); HCT 27.4 % (37.2-46.3); HGB 8.8 g/dL (12.0-15.0); Lymphocytes # (A) 1.18 X 10*3/uL (0.90-5.00); Lymphocytes % (A) 20.4 %; MCH 31.8 pg (27.0-32.0); MCHC 32.1 g/dL (32.0-37.0); MCV 98.9 FL (80.0-97.0); Mean Platelet Volume 12.8 FL (9.5-12.2); Monocytes # (A) 0.58 X 10*3/uL (0.20-1.00); NRBC Per 100 WBC 0 X 10*3/uL (0.00-0.01); Neutrophils # (A) 3.65 X 10*3/uL (1.80-7.70); Platelet Count 113 X 10*3/uL (140-440); RBC 2.77 X 10*6/uL (4.10-5.20); RDW 21.7 % (11.5-14.5); WBC 5.79 X 10*3/uL (4.50-10.00)
--- NOTE | 2024-05-12 08:59 | P.PN ---
Subjective Progress Note Date: 05/11/24 Principal diagnosis: Reason for follow-up is lower extremity cellulitis Patient is a 44-year-old female with a past medical history significant for reflux cirrhosis of the liver nonalcoholic has been brought to the hospital concerning for increasing swelling to lower extremity as well as abdominal noticed to have redness to the left leg concerning for cellulitis did have abnormal CT chest x-ray concerning for possible right lower lobe pneumonia. On today's evaluation that is 05/11/2024, Patient is afebrile patient is currently on room air and denies having any shortness of breath, the patient denies any chest pain or cough, the patient denies any nausea vomiting some abdominal distention but no significant pain denies pain to the lower extremity. No CBC was done today creatinine is 1.3 culture has been negative Objective - Vital Signs Vital signs: Vital Signs Temp 97.9 F 05/11/24 07:56 Pulse 82 05/11/24 12:59 Resp 16 05/11/24 09:41 BP 114/68 05/11/24 07:56 Pulse Ox 95 05/11/24 07:56 FiO2 Intake & Output 05/10/24 05/11/24 05/11/24 18:59 06:59 18:59 Intake Total 67.167 1560 96 Output Total 700 Balance 67.167 1560 -604 Weight 122.47 kg Intake: Intake, IV Titration 67.167 100 96 Amount Furosemide 100 mg In 67.167 100 96 Sodium Chloride 0.9% 90 ml @ 10 MG/HR 10 mls/hr IV .Q10H [facility] Rx#: [id number] Oral 1460 Output: Urine 700 Other: Voiding Method Toilet Toilet # Voids 4 3 # Bowel Movements 2 - Exam GENERAL DESCRIPTION: Middle-age female lying in bed in no distress RESPIRATORY SYSTEM: Unlabored breathing , decreased breath sounds at bases HEART: S1 S2 regular rate and rhythm , ABDOMEN: Soft , no tenderness EXTREMITIES: Bilateral lower extremity currently wrapped with an Theo wrap no drainage - Labs CBC & Chem 7: 05/12/24 03:22 05/11/24 05:46 Labs: Abnormal Lab Results - Last 24 Hours (Table) 05/11/24 05/11/24 Range/Units 05:46 09:04 Carbon Dioxide 19.9 L (21.6-31.8) mmol/L Est GFR (CKD-EPI) 52 L (>=60) Calcium 7.7 L (8.7-10.3) mg/dL Ammonia 56 H (<30) umol/L Assessment and Plan (1) Bilateral leg edema Current Visit: Yes Status: Acute Code(s): R60.0 - LOCALIZED EDEMA SNOMED Code(s): 530633630 (2) Congestive heart failure Current Visit: Yes Status: Acute Code(s): I50.9 - HEART FAILURE, UNSPECIFIED SNOMED Code(s): 35322739 (3) Penicillin allergy Current Visit: No Status: Acute Code(s): Z88.0 - ALLERGY STATUS TO PENICILLIN SNOMED Code(s): 44121738 (4) Cellulitis of right leg Current Visit: Yes Status: Acute Code(s): L03.115 - CELLULITIS OF RIGHT LOWER LIMB SNOMED Code(s): 80437586967016810 Plan: 1patient presented to hospital with increasing abdominal as well as lower extremity swelling more likely related to excessive fluid examination secondary to her cirrhosis of the liver patient did have right lower extremity which is swollen and red slightly warm to touch concerning for cellulitis. 2patient did have abnormal CT as well as chest x-ray suspicious for pneumonia however the patient did not have significant respiratory symptoms to be suspicious for such. 3penicillin allergy that will limit the number of antibiotics safe to use. 4patient right lower extremity for CT negative for any abscess 5patient is currently being treated with daptomycin Aquacel silver dressing to the right foot wound followed by Theo wrap once will reevaluate the wound tomorrow the toe dressing changes Dictation was produced using [employer] dictation software. please excuse any grammatical, word or spelling errors. Time with Patient: Less than 30
[2024-05-12 09:11] LABS: ALT 10 U/L (8-44); AST 25 U/L (13-35); Albumin 2.4 g/dL (3.8-4.9); Alkaline Phosphatase 169 U/L (41-126); BUN/Creat Ratio 11.62 Ratio (12.00-20.00); Blood Urea Nitrogen 18.6 mg/dL (9.0-27.0); Calcium 7.9 mg/dL (8.7-10.3); Carbon Dioxide 20.6 mmol/L (21.6-31.8); Chloride 106 mmol/L (96-109); Globulin 1.6 g/dL (1.6-3.3); Glucose 89 mg/dL (70-110); Potassium 3.9 mmol/L (3.5-5.5); Sodium 136 mmol/L (135-145); Total Bilirubin 0.6 mg/dL (0.3-1.2)
[2024-05-12] MEDS: MAGNESIUM OXIDE 400 MG TAB PO SCH (09:48)
[2024-05-12] MEDS: POTASSIUM CHLORIDE ER 20 MEQ TAB.ER PO SCH (09:48)
--- NOTE | 2024-05-12 11:15 | P.PN ---
Subjective Progress Note Date: 05/12/24 CHIEF COMPLAINT: Shortness of breath HISTORY OF PRESENT ILLNESS: Patient has had 2 paracentesis during this admission. Ultrasound of abdomen from yesterday reports a mild to moderate ascites along the right flank. Very trace fluid along the left flank. Per IR service this does not appear to warrant paracentesis at this time. Patient remains on a Lasix drip. Her abdomen remains distended. Afebrile. WBC 5.79 Cr 1.6 PHYSICAL EXAM: VITAL SIGNS: Reviewed. GENERAL: no acute distress. Generalized edema ABDOMEN: Abdomen distended. Nontender. Old SALVADOR drain site with minimal ascites fluid. Fluid in bag is the same for the last 2 days. The 2 areas of paracentesis on the left side of the abdomen both having minimal ascites drainage NEUROLOGIC: Alert and oriented. Cranial nerves II through XII grossly intact. ASSESSMENT: 1. Massive abdominal ascites with 2 paracentesis during this admission 2. History of alcoholic liver cirrhosis with abdominal ascites 3. Status post laparoscopic cholecystectomy in March 2024 4. Severe protein calorie malnutrition PLAN: -No surgical intervention planned -Continue to monitor ascites drainage from old SALVADOR drain site. Drainage is becoming less -Fluid management per nephrology. Patient on Lasix drip. Physician Insurance Agency Sales Manager note has been reviewed by physician. Signing provider agrees with the documented findings, assessment, and plan of care. Objective - Vital Signs Vital signs: Vital Signs Temp 98.8 F 05/12/24 07:46 Pulse 91 05/12/24 07:56 Resp 16 05/12/24 07:46 BP 100/62 05/12/24 07:46 Pulse Ox 91 L 05/12/24 07:46 FiO2 Intake & Output 05/11/24 05/12/24 05/12/24 18:59 06:59 18:59 Intake Total 96 555.5 Output Total 800 650 Balance -704 -94.5 Intake: Intake, IV Titration 96 195.5 Amount Furosemide 100 mg In 96 195.5 Sodium Chloride 0.9% 90 ml @ 10 MG/HR 10 mls/hr IV .Q10H [facility] Rx#: [id number] Oral 360 Output: Urine 800 650 Other: Voiding Method Toilet Toilet Toilet # Bowel Movements 1 - Labs CBC & Chem 7: 05/12/24 03:22 05/12/24 02:47 Labs: Abnormal Lab Results - Last 24 Hours (Table) 05/12/24 05/12/24 Range/Units 02:47 03:22 RBC 2.77 L (4.10-5.20) X 10*6/uL Hgb 8.8 L (12.0-15.0) g/dL Hct 27.4 L (37.2-46.3) % MCV 98.9 H (80.0-97.0) FL RDW 21.7 H (11.5-14.5) % Plt Count 113 L (140-440) X 10*3/uL MPV 12.8 H (9.5-12.2) FL Carbon Dioxide 20.6 L (21.6-31.8) mmol/L Creatinine 1.6 H (0.6-1.5) mg/dL Est GFR (CKD-EPI) 41 L (>=60) BUN/Creatinine Ratio 11.62 L (12.00-20.00) Ratio Calcium 7.9 L (8.7-10.3) mg/dL Alkaline Phosphatase 169 H (41-126) U/L Total Protein 4.0 L (6.2-8.2) g/dL Albumin 2.4 L (3.8-4.9) g/dL Albumin/Globulin Ratio 1.50 L (1.60-3.17) Ratio
--- NOTE | 2024-05-12 11:18 | P.PN ---
Subjective Progress Note Date: 05/12/24 Principal diagnosis: Massive ascites s/p large-volume paracentesis with removal of 8.2 L Right lower lobe pneumonia Cellulitis of both upper extremity Hepatic encephalopathy Extensive lower extremity abdominal wall edema with weeping of his skin Hypoxic respiratory failure with oxygen at nighttime Sleep disordered breathing and sleep apnea May 12, 2024, patient seen eval examined during rounds labs reviewed medication care plan discussed, patient has been resumed on Lasix drip 10 mg an hour, ultrasound of the abdomen performed no significant amount of ascites fluid noted patient continue anasarca. Labs from today reviewed white cell count of 5.7, hemoglobin hematocrit 8.8/27 platelet count of 113, sodium 130 potassium 3.9 BUN/creatinine is 18.6/1.6 LFTs alk phos elevated 169 cultures no growth so far May 09, 2024, patient seen eval examined during rounds labs reviewed medications reviewed Lasix drip has been stopped now, patient is getting small amount of albumin, remains on DuoNeb, on daptomycin and midodrine. Labs from today reviewed patient is composed awake and alert hemoglobin hematocrit is 9.5/29 which remains stable, white cell count 7.6, CBC otherwise within normal limit, sodium 132 potassium 3.4, BUN/creatinine is 18/1.5 glucose 96 patient is scheduled for large-volume paracentesis later on this afternoon by interventional radiology May 08, 2024, patient seen eval examined during rounds sitting upright in the chair, dressing is off diffuse erythema and edema up to thigh, With inflammatory changes in the lower extremity slightly improved from, abdomen is more distended and tense, discussed with RN will place a consultation for IR to do a large- volume paracentesis, patient remains on Lasix drip 5 mg an hour with adequate u rine output, in addition patient has been IV cefazolin as well I's and O's reviewed and last 72 hours patient has been -3.6 L labs have been reviewed hemoglobin hematocrit remained stable with normal WBC count, platelet count also remained stable history not done today, medications reviewed May 07 2024, patient seen eval examined during rounds labs reviewed medications and care plan discussed, patient sitting upright in the chair is swelling in the lower extremity as well as the thigh and trunk stabilized however inflammatory changes are still there, patient remains on IV cefazolin tolerating very well, remains on Lasix drip which seems to be helping, patient remains on midodrine and continuation of home medications including sodium bicarb as well as rifaximin mean and antidepressant. Today reviewed CBC fairly stable, platelet count low but stable, sodium is 135 potassium 3.1 BUN/cr eatinine is 22 1.4 continue to improve due to improved renal perfusion, potassium is low being repleted May 06, 2024, patient seen evaluate examined during rounds labs reviewed medication care plan discussed, patient remains on Lasix drip 5 mg an hour, also on broad-spectrum IV antibiotic with Unasyn, acetic fluid culture no growth so far, Gram stain negative. Sodium is 133 potassium 2.8 BUN/creatinine is 26/1.51 continue to improve with diuresis. Patient remains on IV cefazolin with bronc hodilators Dilaudid for pain control, lactulose and midodrine also getting rifaximin mean and white count for hepatic encephalopathy. May 05, 2024, patient seen evaluate examined labs reviewed medications and care plan discussed, overall respiratory status is stable on broad-spectrum antibiotic however patient has extensive edema throughout the body especially in the legs with weeping skin will discuss with nephrology about starting Lasix drip for diuresis, chest x-ray from today reviewed stable infiltrate no significant change Patient is a 44-year-old female with a past medical history significant for reflux cirrhosis of the liver nonalcoholic recently did have admission to the hospital for hypo natremia she was also noted to have significant left lower extremity cellulitis and did have a UTI patient subsequently has been discharged home has been brought back to the hospital concerning for increasing swelling to bilateral lower extremity no also involving the right leg and also complaining of increasing shortness of breath patient symptom has been getting worse for the last 2 to 3 days patient denies high-grade fever or any chills and no fever have been recorded on presentation to the hospital patient was tachycardic on admission subsequently resolved she was not hypotensive or hypoxic and no need for supplemental oxygen patient did have white count of 7.3 BUN and creatinine has been mildly elevated patient did have a chest x-ray airspace opacity projecting over the spine correlate for pneumonia patient did have abdominal pelvis CT ascites extensive swelling to the subcutaneous tissue right lower lobe infiltrate correlate for pneumonia splenomegaly patient was started on Rocephin and Zithromax has been admitted to hospital, she has a large-volume paracentesis over 8.2 L of fluid removed. Her admitted chest x-ray significant for airspace opacities suggestive of pneumonia. CT scan of the abdomen pelvis extensive subcutaneous edema as well as ascites, Objective - Vital Signs Vital signs: Vital Signs Temp 98.8 F 05/12/24 07:46 Pulse 91 05/12/24 07:56 Resp 16 05/12/24 07:46 BP 100/62 05/12/24 07:46 Pulse Ox 91 L 05/12/24 07:46 FiO2 Intake & Output 05/11/24 05/12/24 05/12/24 18:59 06:59 18:59 Intake Total 96 555.5 Output Total 800 650 Balance -704 -94.5 Intake: Intake, IV Titration 96 195.5 Amount Furosemide 100 mg In 96 195.5 Sodium Chloride 0.9% 90 ml @ 10 MG/HR 10 mls/hr IV .Q10H [facility] Rx#: [id number] Oral 360 Output: Urine 800 650 Other: Voiding Method Toilet Toilet Toilet # Bowel Movements 1 - Exam - Constitutional General appearance: morbidly obese - EENT Eyes: EOMI, PERRLA Ears: bilateral: normal - Neck Carotids: bilateral: upstroke normal Thyroid: negative: normal size - Respiratory Respiratory: bilateral: diminished - Cardiovascular Rhythm: regular Heart sounds: normal: S1, S2 - Gastrointestinal General gastrointestinal: distended - Integumentary Extensive edema of lower extremity and generalized body Integumentary: decreased turgor - Neurologic Neurologic: CNII-XII intact - Musculoskeletal Musculoskeletal: gait normal, generalized weakness, strength equal bilaterally - Psychiatric Psychiatric: A&O x's 3, appropriate affect, intact judgment & insight - Labs CBC & Chem 7: 05/12/24 03:22 05/12/24 02:47 Labs: Abnormal Lab Results - Last 24 Hours (Table) 05/12/24 05/12/24 Range/Units 02:47 03:22 RBC 2.77 L (4.10-5.20) X 10*6/uL Hgb 8.8 L (12.0-15.0) g/dL Hct 27.4 L (37.2-46.3) % MCV 98.9 H (80.0-97.0) FL RDW 21.7 H (11.5-14.5) % Plt Count 113 L (140-440) X 10*3/uL MPV 12.8 H (9.5-12.2) FL Carbon Dioxide 20.6 L (21.6-31.8) mmol/L Creatinine 1.6 H (0.6-1.5) mg/dL Est GFR (CKD-EPI) 41 L (>=60) BUN/Creatinine Ratio 11.62 L (12.00-20.00) Ratio Calcium 7.9 L (8.7-10.3) mg/dL Alkaline Phosphatase 169 H (41-126) U/L Total Protein 4.0 L (6.2-8.2) g/dL Albumin 2.4 L (3.8-4.9) g/dL Albumin/Globulin Ratio 1.50 L (1.60-3.17) Ratio Assessment and Plan Assessment: Generalized anasarca on IV furosemide continuous drip 10 mg an hour tolerating well, Massive ascites s/p large-volume paracentesis with removal of 8.2 L, patient is status post repeat ultrasound of the abdomen no significant fluid seen Right lower lobe pneumonia Severe hypokalemia, on replacement slowly improve Cellulitis of both upper extremity Hepatic encephalopathy Extensive lower extremity abdominal wall edema with weeping of his skin Hypoxic respiratory failure with oxygen at nighttime Sleep disordered breathing and sleep apnea it Plan: Patient continued on potassium replacement protocol Lasix drip has been escalated to 10 mg an hour Continue gentle diuresis with Lasix, every Continue rifaximin and lactulose for hepatic encephalopathy Off of antibiotics, repeat x-ray no pneumonia seen Continue supplemental oxygen at nighttime if respiratory distress noted consider using BiPAP machine sleep study if she is agreeable as outpatient basis Time with Patient: Greater than 30
--- NOTE | 2024-05-12 12:15 | P.PN ---
Subjective Progress Note Date: 05/12/24 Principal diagnosis: MEMO secondary to ATN secondary to hepatorenal syndrome Hospital course: Patient is a 44 year old female with PMH of liver cirrhosis and recent hospitalisation for hyponatremia treated with demeclocycline, who presented to the ED with abdominal distension and worsening edema on 05/03. She was admitted for massive ascites, right lower lobe pneumonia, cellulitis. 05/11/24 Patient seen today. She complains of lower abdominal pain, back pain and groin pain. Denies dysuria, weakness, chest pain and shortness of breath. She is non oliguric and renal function is better. Labs today show sodium 139, potassium 3.9, BUN 17.3, creatinine 1.3, GFR 52, magnesium 1.8. 05/12/24 Patient evaluated today. She notes an improvement in her lower abdominal pain. Denies weakness, chest pain, shortness of breath. She reports significant urine output and shows significant improvement in edema. Labs today show Na 136, K 3.9, BUN 18.6, creatinine 1.6, GFR 41. Objective - Vital Signs Vital signs: Vital Signs Temp 98.8 F 05/12/24 07:46 Pulse 91 05/12/24 07:56 Resp 16 05/12/24 07:46 BP 100/62 05/12/24 07:46 Pulse Ox 91 L 05/12/24 07:46 FiO2 Intake & Output 05/11/24 05/12/24 05/12/24 18:59 06:59 18:59 Intake Total 96 555.5 Output Total 800 650 Balance -704 -94.5 Intake: Intake, IV Titration 96 195.5 Amount Furosemide 100 mg In 96 195.5 Sodium Chloride 0.9% 90 ml @ 10 MG/HR 10 mls/hr IV .Q10H [facility] Rx#: [id number] Oral 360 Output: Urine 800 650 Other: Voiding Method Toilet Toilet Toilet # Bowel Movements 1 - Exam Vitals: T 98.8 F, P 91 bpm, RR 16, BP 100/62, O2 sat 91% on room air General: appears at stated age, obese Cardiovascular: S1 S2 reg, no murmur Lungs: CTA bilateral, no rhonchi, no rales, no accessory muscle use Abdominal: firm and distended, non-tender to palpataion Extremities: b/l pitting edema, redness bilaterally Neuro: Alert, Oriented - Labs CBC & Chem 7: 05/12/24 03:22 05/12/24 02:47 Labs: Abnormal Lab Results - Last 24 Hours (Table) 05/11/24 05/12/24 05/12/24 Range/Units 05:46 02:47 03:22 RBC 2.77 L (4.10-5.20) X 10*6/uL Hgb 8.8 L (12.0-15.0) g/dL Hct 27.4 L (37.2-46.3) % MCV 98.9 H (80.0-97.0) FL RDW 21.7 H (11.5-14.5) % Plt Count 113 L (140-440) X 10*3/uL MPV 12.8 H (9.5-12.2) FL Carbon Dioxide 19.9 L 20.6 L (21.6-31.8) mmol/L Creatinine 1.6 H (0.6-1.5) mg/dL Est GFR (CKD-EPI) 52 L 41 L (>=60) BUN/Creatinine Ratio 11.62 L (12.00-20.00) Ratio Calcium 7.7 L 7.9 L (8.7-10.3) mg/dL Alkaline Phosphatase 169 H (41-126) U/L Total Protein 4.0 L (6.2-8.2) g/dL Albumin 2.4 L (3.8-4.9) g/dL Albumin/Globulin Ratio 1.50 L (1.60-3.17) Ratio Assessment and Plan Assessment: Acute kidney injury secondary to ATN secondary to hepatorenal syndrome. Creatinine today 1.6. Hypervolemic hyponatremia, improved Hypokalemia and hypomagnesemia from diuresis. Imporved Liver cirrhosis with ascites. Paracentesis done May 04, 2024 with 8.2 L drained. Underwent another paracentesis May 09, 2024 with 7 L draine Plan: Metolazone 5mg Maintain Lasix drip. Maintain 1500 cc fluid restriction. Maintenance Potassium 20meq daily and magnesium 400mg daily Strict I/O Monitor [facility]. I have seen and examined the patient with resident and agree with A&P as written.
[2024-05-12] MEDS ORDERED: metOLazone 5 MG TAB PO SCH (12:45)
[2024-05-12] MEDS: metOLazone 5 MG TAB PO STA (13:03)
--- NOTE | 2024-05-12 14:52 | P.PN ---
Subjective Progress Note Date: 05/12/24 Principal diagnosis: Reason for follow-up is lower extremity cellulitis Patient is a 44-year-old female with a past medical history significant for reflux cirrhosis of the liver nonalcoholic has been brought to the hospital concerning for increasing swelling to lower extremity as well as abdominal noticed to have redness to the left leg concerning for cellulitis did have abnormal CT chest x-ray concerning for possible right lower lobe pneumonia. On today's evaluation that is 05/12/2024, patient has been afebrile, patient is breathing comfortably and is currently on room air, patient denies having any significant cough no chest pain, patient denies nausea vomiting or diarrhea and no abdominal pain and denies pain to the lower extremity. Patient white count is 5.7, creatinine is 1.6 Objective - Vital Signs Vital signs: Vital Signs Temp 98.7 F 05/12/24 13:49 Pulse 75 05/12/24 13:49 Resp 16 05/12/24 13:49 BP 103/67 05/12/24 13:49 Pulse Ox 95 05/12/24 13:49 FiO2 Intake & Output 05/11/24 05/12/24 05/12/24 18:59 06:59 18:59 Intake Total 96 555.5 Output Total 800 650 Balance -704 -94.5 Intake: Intake, IV Titration 96 195.5 Amount Furosemide 100 mg In 96 195.5 Sodium Chloride 0.9% 90 ml @ 10 MG/HR 10 mls/hr IV .Q10H [facility] Rx#: [id number] Oral 360 Output: Urine 800 650 Other: Voiding Method Toilet Toilet Toilet # Bowel Movements 1 - Exam GENERAL DESCRIPTION: Middle-age female lying in bed in no distress RESPIRATORY SYSTEM: Unlabored breathing , decreased breath sounds at bases HEART: S1 S2 regular rate and rhythm , ABDOMEN: Soft , no tenderness EXTREMITIES: Right lower extremity swelling redness slightly decreased - Labs CBC & Chem 7: 05/12/24 03:22 05/12/24 02:47 Labs: Abnormal Lab Results - Last 24 Hours (Table) 05/12/24 05/12/24 Range/Units 02:47 03:22 RBC 2.77 L (4.10-5.20) X 10*6/uL Hgb 8.8 L (12.0-15.0) g/dL Hct 27.4 L (37.2-46.3) % MCV 98.9 H (80.0-97.0) FL RDW 21.7 H (11.5-14.5) % Plt Count 113 L (140-440) X 10*3/uL MPV 12.8 H (9.5-12.2) FL Carbon Dioxide 20.6 L (21.6-31.8) mmol/L Creatinine 1.6 H (0.6-1.5) mg/dL Est GFR (CKD-EPI) 41 L (>=60) BUN/Creatinine Ratio 11.62 L (12.00-20.00) Ratio Calcium 7.9 L (8.7-10.3) mg/dL Alkaline Phosphatase 169 H (41-126) U/L Total Protein 4.0 L (6.2-8.2) g/dL Albumin 2.4 L (3.8-4.9) g/dL Albumin/Globulin Ratio 1.50 L (1.60-3.17) Ratio Assessment and Plan (1) Bilateral leg edema Current Visit: Yes Status: Acute Code(s): R60.0 - LOCALIZED EDEMA SNOMED Code(s): 377002213 (2) Congestive heart failure Current Visit: Yes Status: Acute Code(s): I50.9 - HEART FAILURE, UNSPECIFIED SNOMED Code(s): 54459130 (3) Penicillin allergy Current Visit: No Status: Acute Code(s): Z88.0 - ALLERGY STATUS TO PENICILLIN SNOMED Code(s): 89936761 (4) Cellulitis of right leg Current Visit: Yes Status: Acute Code(s): L03.115 - CELLULITIS OF RIGHT LOWER LIMB SNOMED Code(s): 05711386089849145 Plan: 1patient presented to hospital with increasing abdominal as well as lower extremity swelling more likely related to excessive fluid examination secondary to her cirrhosis of the liver patient did have right lower extremity which is swollen and red slightly warm to touch concerning for cellulitis. 2patient did have abnormal CT as well as chest x-ray suspicious for pneumonia however the patient did not have significant respiratory symptoms to be suspicious for such. 3penicillin allergy that will limit the number of antibiotics safe to use. 4patient right lower extremity for CT negative for any abscess 5patient remains to be afebrile, white count is normal we will continue daptomycin Aquacel silver dressing to the right foot wound followed by Theo wrap to keep the swelling down Dictation was produced using [employer] software. please excuse any grammatical, word or spelling errors. Time with Patient: Less than 30
--- NOTE | 2024-05-12 15:03 | P.PN ---
Subjective Progress Note Date: 05/12/24 Principal diagnosis: Liver cirrhosis This a pleasant 44-year-old female who presented to the emergency department directed by her PCP for abnormal labs and lower extremity swelling. Patient has had multiple hospitalizations recently. She was seen by gastroenterology in April for cirrhosis of the liver with ascites. She was hospitalized for some time during that hospitalization and then rehospitalized. Patient's was diagnosed with alcohol induced liver cirrhosis about a year ago. She reportedly has not drank for about 6 months now. She had undergone cholecystectomy and underwent that on 03/21/[address] Corrigan and was hospitalized and discharged on 04/08/2024 following some reported complications following surgery.She had an upper endoscopy done 02/19/2024 with findings of antral ulcer, small distal esophageal varices with no stigmata of recent bleeding, and mild to moderate gastritis. During her last hospitalization she had severe hyponatremia and was following with nephrology. Diuretics deferred to nephrology. Discharge she was on Lasix 40 mg daily. She is now readmitted with nephrology following, she is currently on a Lasix drip. She had 2 paracentesis during this hospitalization on 05/03/2024 with 8 L removed and 05/09/2024 with 7 L fluid re moved. She currently has a ostomy bag on the left side of her abdomen with leaking fluid. Still has some minimal leaking from cholecystectomy surgical sites on the right side of the abdomen. Patient is alert and oriented. She does have elevated ammonia she was started on lactulose and Xifaxan by her PCP Dr. Shields. 05/12/2024 Patient seen and examined today as a follow-up. No acute changes through the night. Still has quite a bit of swelling in her lower extremities. She has been afebrile. Was started on lactulose 30 g 3 times daily. States having at least 3 bowel movements yesterday. WBC 5.7 hemoglobin 8.8 platelet count 113,000 total bilirubin 0.6 AST 25 ALT 10 alkaline phosphatase 169 Objective - Vital Signs Vital signs: Vital Signs Temp 98.8 F 05/12/24 07:46 Pulse 91 05/12/24 07:56 Resp 16 05/12/24 07:46 BP 100/62 05/12/24 07:46 Pulse Ox 91 L 05/12/24 07:46 FiO2 Intake & Output 05/11/24 05/12/24 05/12/24 18:59 06:59 18:59 Intake Total 96 555.5 Output Total 800 650 Balance -704 -94.5 Intake: Intake, IV Titration 96 195.5 Amount Furosemide 100 mg In 96 195.5 Sodium Chloride 0.9% 90 ml @ 10 MG/HR 10 mls/hr IV .Q10H [facility] Rx#: [id number] Oral 360 Output: Urine 800 650 Other: Voiding Method Toilet Toilet # Bowel Movements 1 - Exam General appearance: The patient is alert, oriented, appears in no acute distress. HET: Head is normocephalic and atraumatic. Conjunctiva pink. Sclera anicteric. Neck: Supple without lymphadenopathy. Abdomen: Soft, obese, mildly distended, nontender. Right side of abdomen and umbilicus with sutures in place from previous surgery. Left side abdomen with ostomy bag with about 10 cc of ascitic fluid. Extremities: Bilateral lower extremity edema. Right lower extremity with erythema. Bilateral lower extremities with Theo wrap's. Skin: No rashes, no jaundice Neurological: No focal deficits. Alert and oriented. - Labs CBC & Chem 7: 05/12/24 03:22 05/12/24 02:47 Labs: Abnormal Lab Results - Last 24 Hours (Table) 05/11/24 05/11/24 Range/Units 05:46 09:04 Carbon Dioxide 19.9 L (21.6-31.8) mmol/L Est GFR (CKD-EPI) 52 L (>=60) Calcium 7.7 L (8.7-10.3) mg/dL Ammonia 56 H (<30) umol/L Assessment and Plan (1) Alcoholic cirrhosis of liver with ascites Narrative/Plan: 44-year-old female with alcohol cirrhosis of the liver with ascites. Has been in and out of the hospital with hepatorenal syndrome and hyponatremia. She continues with significant lower extremity edema. Status post 2 paracentesis this admission and currently on a Lasix drip. Will defer diuretic management to nephrology. No further workup from gastroenterology. Continue with alcohol abstinence. Current Visit: Yes Status: Acute Code(s): K70.31 - ALCOHOLIC CIRRHOSIS OF LIVER WITH ASCITES SNOMED Code(s): 287190781 (2) Bilateral leg edema Narrative/Plan: Continue with Theo wraps Current Visit: Yes Status: Acute Code(s): R60.0 - LOCALIZED EDEMA SNOMED Code(s): 611379042 (3) Hyponatremia Current Visit: No Status: Acute Code(s): E87.1 - HYPO-OSMOLALITY AND HYPONATREMIA SNOMED Code(s): 98057387 (4) Hyperammonemia Narrative/Plan: Secondary to liver cirrhosis. Continue with lactulose, increased to 30 g 3 times daily Current Visit: Yes Status: Acute Code(s): E72.20 - DISORDER OF UREA CYCLE METABOLISM, UNSPECIFIED SNOMED Code(s): 7667569 Plan: 1. Continue symptomatic and supportive care 2. Diuretics per nephrology 3. Paracentesis as needed 4. Continue with alcohol abstinence 5. Encourage ambulation 6. Increase lactulose to 30 g 3 times daily 7. Repeat ammonia level tomorrow, daily labs 8. Prescription in chart for outpatient paracentesis. Patient will need to make an appointment and follow-up with gastroenterology within 1 to 2 weeks after discharge Thank you for this consultation, we will continue to follow. Dr. Rachel Cuenca I agree with the dictator's note, documented as a scribe by Katiuska Fan.
[2024-05-12] MEDS: RIFAXIMIN 550 MG TABLET PO SCH (21:13)
[2024-05-13] MEDS: FUROSEMIDE 100 MG in SODIUM CHLORIDE 0.9% 90 ML IV SCH (04:29)
--- NOTE | 2024-05-13 04:32 | PN ---
PROGRESS NOTE SUBJECTIVE: A 44-year-old white female, continues on current treatment. Dr. Kaba is seeing her for cellulitis of legs. Has her on antibiotics so far for right lower lobe pneumonia. She maintains on antibiotics. Cellulitis of the legs improving. Her breathing is improving. Her diuresis is stable with her renal function at this time. Creatinine is 1.6. Blood pressure 103/67, pulse 75, respiratory rate 16 to 18, O2 of 95%. Hemoglobin was found to be 8.3, possibly give her iron replacement through the IV. OBJECTIVE: LUNGS: Transmitted upper sounds, scattered rhonchi, and wheeze. HEART: S1, S2. ABDOMEN: Soft. EXTREMITIES: She has bilateral leg edema. Congestive heart failure, penicillin allergy, cellulitis of the hip. Continues on treatment for cellulitis, updrafts, inhalers. Cellulitis of lower extremities. Continue on Lasix drip. Monitor renal function. GI saw her for ascites and cirrhosis and elevated pneumonia. We got her on lactulose and Xifaxan. Ammonia level today was 33, which is improved. Prognosis guarded. So far, GFR is 41. Monitor that closely. MMODL / IJN: [id number] /
[2024-05-13 08:47] LABS: Basophils # (A) 0.04 X 10*3/uL (0.00-0.10); Basophils % (A) 0.7 %; Eosinophils # (A) 0.16 X 10*3/uL (0.04-0.35); Eosinophils % (A) 2.6 %; HCT 28.4 % (37.2-46.3); HGB 9.3 g/dL (12.0-15.0); Lymphocytes # (A) 1.24 X 10*3/uL (0.90-5.00); Lymphocytes % (A) 20.3 %; MCH 31.4 pg (27.0-32.0); MCHC 32.7 g/dL (32.0-37.0); MCV 95.9 FL (80.0-97.0); Mean Platelet Volume 11.5 FL (9.5-12.2); Monocytes # (A) 0.58 X 10*3/uL (0.20-1.00); Monocytes % (A) 9.5 %; NRBC Per 100 WBC 0 X 10*3/uL (0.00-0.01); Neutrophils # (A) 4.08 X 10*3/uL (1.80-7.70); Neutrophils % (A) 66.6 %; Platelet Count 113 X 10*3/uL (140-440); RBC 2.96 X 10*6/uL (4.10-5.20); RDW 22.1 % (11.5-14.5); WBC 6.12 X 10*3/uL (4.50-10.00)
[2024-05-13 08:59] LABS: ALT 8 U/L (8-44); AST 26 U/L (13-35); Albumin 2.6 g/dL (3.8-4.9); Albumin/Globulin Ratio 1.44 Ratio (1.60-3.17); Alkaline Phosphatase 193 U/L (41-126); BUN/Creat Ratio 11.59 Ratio (12.00-20.00); Blood Urea Nitrogen 19.7 mg/dL (9.0-27.0); Calcium 8.1 mg/dL (8.7-10.3); Carbon Dioxide 20.6 mmol/L (21.6-31.8); Chloride 106 mmol/L (96-109); Globulin 1.8 g/dL (1.6-3.3); Glucose 97 mg/dL (70-110); Potassium 3.3 mmol/L (3.5-5.5); Sodium 139 mmol/L (135-145); Total Protein 4.4 g/dL (6.2-8.2)
--- NOTE | 2024-05-13 11:34 | P.PN ---
Subjective Progress Note Date: 05/13/24 Principal diagnosis: Liver cirrhosis This a pleasant 44-year-old female who presented to the emergency department directed by her PCP for abnormal labs and lower extremity swelling. Patient has had multiple hospitalizations recently. She was seen by gastroenterology in April for cirrhosis of the liver with ascites. She was hospitalized for some time during that hospitalization and then rehospitalized. Patient's was diagnosed with alcohol induced liver cirrhosis about a year ago. She reportedly has not drank for about 6 months now. She had undergone cholecystectomy and underwent that on 03/21/[address] Corrigan and was hospitalized and discharged on 04/08/2024 following some reported complications following surgery.She had an upper endoscopy done 02/19/2024 with findings of antral ulcer, small distal esophageal varices with no stigmata of recent bleeding, and mild to moderate gastritis. During her last hospitalization she had severe hyponatremia and was following with nephrology. Diuretics deferred to nephrology. Discharge she was on Lasix 40 mg daily. She is now readmitted with nephrology following, she is currently on a Lasix drip. She had 2 paracentesis during this hospitalization on 05/03/2024 with 8 L removed and 05/09/2024 with 7 L fluid re moved. She currently has a ostomy bag on the left side of her abdomen with leaking fluid. Still has some minimal leaking from cholecystectomy surgical sites on the right side of the abdomen. Patient is alert and oriented. She does have elevated ammonia she was started on lactulose and Xifaxan by her PCP Dr. Shields. 05/12/2024 Patient seen and examined today as a follow-up. No acute changes through the night. Still has quite a bit of swelling in her lower extremities. She has been afebrile. Was started on lactulose 30 g 3 times daily. States having at least 3 bowel movements yesterday. WBC 5.7 hemoglobin 8.8 platelet count 113,000 total bilirubin 0.6 AST 25 ALT 10 alkaline phosphatase 169 05/13/2024 Patient seen and examined today as a follow-up. No acute changes through the night. No reports of increased abdominal distention or abdominal pain. Patient's been afebrile. Objective - Vital Signs Vital signs: Vital Signs Temp 98.1 F 05/13/24 07:18 Pulse 78 05/13/24 07:18 Resp 18 10/11/24 07:18 BP 100/61 05/13/24 07:18 Pulse Ox 96 05/13/24 07:18 FiO2 Intake & Output 05/12/24 05/13/24 05/13/24 18:59 06:59 18:59 Intake Total 538 Output Total 800 Balance -262 Intake: Intake, IV Titration 100 Amount Furosemide 100 mg In 100 Sodium Chloride 0.9% 90 ml @ 10 MG/HR 10 mls/hr IV .Q10H [facility] Rx#: [id number] Oral 438 Output: Urine 800 Other: Voiding Method Toilet Toilet # Bowel Movements 2 - Exam General appearance: The patient is alert, oriented, appears in no acute distress. HET: Head is normocephalic and atraumatic. Conjunctiva pink. Sclera anicteric. Neck: Supple without lymphadenopathy. Abdomen: Soft, obese, mildly distended, nontender. Right side of abdomen and umbilicus with sutures in place from previous surgery. Left side abdomen with ostomy bag with about 10 cc of ascitic fluid. Extremities: Bilateral lower extremity edema. Right lower extremity with erythema. Bilateral lower extremities with Theo wrap's. Skin: No rashes, no jaundice Neurological: No focal deficits. Alert and oriented. - Labs CBC & Chem 7: 05/13/24 03:04 05/13/24 03:04 Labs: Abnormal Lab Results - Last 24 Hours (Table) 05/12/24 05/12/24 05/12/24 Range/Units 02:47 03:22 17:09 RBC 2.77 L (4.10-5.20) X 10*6/uL Hgb 8.8 L (12.0-15.0) g/dL Hct 27.4 L (37.2-46.3) % MCV 98.9 H (80.0-97.0) FL RDW 21.7 H (11.5-14.5) % Plt Count 113 L (140-440) X 10*3/uL MPV 12.8 H (9.5-12.2) FL Carbon Dioxide 20.6 L (21.6-31.8) mmol/L Creatinine 1.6 H (0.6-1.5) mg/dL Est GFR (CKD-EPI) 41 L (>=60) BUN/Creatinine Ratio 11.62 L (12.00-20.00) Ratio Calcium 7.9 L (8.7-10.3) mg/dL Alkaline Phosphatase 169 H (41-126) U/L Ammonia 33 H (<30) umol/L Total Protein 4.0 L (6.2-8.2) g/dL Albumin 2.4 L (3.8-4.9) g/dL Albumin/Globulin Ratio 1.50 L (1.60-3.17) Ratio Assessment and Plan (1) Alcoholic cirrhosis of liver with ascites Narrative/Plan: 44-year-old female with alcohol cirrhosis of the liver with ascites. Has been in and out of the hospital with hepatorenal syndrome and hyponatremia. She continues with significant lower extremity edema. Status post 2 paracentesis this admission and currently on a Lasix drip. Will defer diuretic management to nephrology. No further workup from gastroenterology. Continue with alcohol abstinence. Current Visit: Yes Status: Acute Code(s): K70.31 - ALCOHOLIC CIRRHOSIS OF LIVER WITH ASCITES SNOMED Code(s): 203472395 (2) Bilateral leg edema Narrative/Plan: Continue with Theo wraps Current Visit: Yes Status: Acute Code(s): R60.0 - LOCALIZED EDEMA SNOMED Code(s): 529780280 (3) Hyponatremia Current Visit: No Status: Acute Code(s): E87.1 - HYPO-OSMOLALITY AND HYPONATREMIA SNOMED Code(s): 70314368 (4) Hyperammonemia Narrative/Plan: Secondary to liver cirrhosis. Continue with lactulose, increased to 30 g 3 times daily, ammonia level improved Current Visit: Yes Status: Acute Code(s): E72.20 - DISORDER OF UREA CYCLE METABOLISM, UNSPECIFIED SNOMED Code(s): 5169230 Plan: 1. Continue symptomatic and supportive care 2. Diuretics per nephrology 3. Paracentesis as needed. Outpatient prescription for paracentesis faxed to interventional radiology and put in patient's chart. 4. Continue with alcohol abstinence 5. Encourage ambulation 6. Continue lactulose to 30 g 3 times daily, titrate to have 3-4 bowel movements daily 7. Prescription in chart for outpatient paracentesis. Patient will need to make an appointment and follow-up with gastroenterology within 1 to 2 weeks after discharge 8. From a GI standpoint patient can be discharged when cleared by other consultants Thank you for allowing us to participate in the care of the patient, the GI service will sign off, gastroenterology will not be available at the hospital this weekend and through next week. If further evaluation by gastroenterology is required the patient will need transfer as per the primary team's discretion. Dr. Rachel Cuenca I agree with the dictator's note, documented as a scribe by Katiuska Fan.
--- NOTE | 2024-05-13 12:20 | P.PN ---
Subjective Progress Note Date: 05/13/24 Principal diagnosis: MEMO secondary to ATN secondary to hepatorenal syndrome Hospital course: Patient is a 44 year old female with PMH of liver cirrhosis and recent hospitalisation for hyponatremia treated with demeclocycline, who presented to the ED with abdominal distension and worsening edema on 05/03. She was admitted for massive ascites, right lower lobe pneumonia, cellulitis. 05/11/24 Patient seen today. She complains of lower abdominal pain, back pain and groin pain. Denies dysuria, weakness, chest pain and shortness of breath. She is non oliguric and renal function is better. Labs today show sodium 139, potassium 3.9, BUN 17.3, creatinine 1.3, GFR 52, magnesium 1.8. 05/12/24 Patient evaluated today. She notes an improvement in her lower abdominal pain. Denies weakness, chest pain, shortness of breath. She reports significant urine output and shows significant improvement in edema. Labs today show Na 136, K 3.9, BUN 18.6, creatinine 1.6, GFR 41. 05/13/24 Patient was evaluated today in room 481. No new complaints. She mentions not using purewick external cathether but does report signifiant urine output with metolazone. Denies shortness of breath, weakness, chest pain. She continues to be on lasix drip. Labs show Na 139, K 3.3 , BUN 19.7, creatinine 1.7, GFR 38. Objective - Vital Signs Vital signs: Vital Signs Temp 98.1 F 05/13/24 07:18 Pulse 94 05/13/24 08:05 Resp 18 05/13/24 07:18 BP 100/61 05/13/24 07:18 Pulse Ox 96 05/13/24 07:18 FiO2 Intake & Output 05/12/24 05/13/24 05/13/24 18:59 06:59 18:59 Intake Total 538 Output Total 800 Balance -262 Intake: Intake, IV Titration 100 Amount Furosemide 100 mg In 100 Sodium Chloride 0.9% 90 ml @ 10 MG/HR 10 mls/hr IV .Q10H [facility] Rx#: [id number] Oral 438 Output: Urine 800 Other: Voiding Method Toilet Toilet # Bowel Movements 2 - Exam General: appears at stated age, obese Cardiovascular: S1 S2 reg, no murmur Lungs: CTA bilateral, no rhonchi, no rales, no accessory muscle use Abdominal: firm and distended, non-tender to palpataion Extremities: b/l pitting edema, redness bilaterally Neuro: Alert, Oriented - Labs CBC & Chem 7: 05/13/24 03:04 05/13/24 03:04 Labs: Abnormal Lab Results - Last 24 Hours (Table) 05/12/24 05/13/24 05/13/24 Range/Units 17:09 03:04 03:04 RBC 2.96 L (4.10-5.20) X 10*6/uL Hgb 9.3 L (12.0-15.0) g/dL Hct 28.4 L (37.2-46.3) % RDW 22.1 H (11.5-14.5) % Plt Count 113 L (140-440) X 10*3/uL Potassium 3.3 L (3.5-5.5) mmol/L Carbon Dioxide 20.6 L (21.6-31.8) mmol/L Anion Gap 12.40 H (4.00-12.00) mmol/L Creatinine 1.7 H (0.6-1.5) mg/dL Est GFR (CKD-EPI) 38 L (>=60) BUN/Creatinine Ratio 11.59 L (12.00-20.00) Ratio Calcium 8.1 L (8.7-10.3) mg/dL Alkaline Phosphatase 193 H (41-126) U/L Ammonia 33 H (<30) umol/L Total Protein 4.4 L (6.2-8.2) g/dL Albumin 2.6 L (3.8-4.9) g/dL Albumin/Globulin Ratio 1.44 L (1.60-3.17) Ratio Assessment and Plan Assessment: Acute kidney injury secondary to ATN secondary to hepatorenal syndrome. Creatinine today 1.7. Hypervolemic hyponatremia, improved Hypokalemia and hypomagnesemia from diuresis. K today 3.3. Liver cirrhosis with ascites. Paracentesis done May 04, 2024 with 8.2 L drained. Underwent another paracentesis May 09, 2024 with 7 L drained. Plan: Start Metolazone 5mg daily. Metolazone 5mg once given yesterday. Ordered Potassium 40meq once Maintain Lasix drip. Maintain 1500 cc fluid restriction. Maintenance Potassium 20meq daily and magnesium 400mg daily Strict I/O Monitor BMP s/p fan 05/10/24
[2024-05-13] MEDS: POTASSIUM CHLORIDE ER 20 MEQ TAB.ER PO STA (12:44)
[2024-05-13] MEDS: metOLazone 5 MG TAB PO SCH (12:45)
--- NOTE | 2024-05-13 13:14 | P.PN ---
Subjective Progress Note Date: 05/13/24 CHIEF COMPLAINT: Shortness of breath HISTORY OF PRESENT ILLNESS: Patient has had 2 paracentesis during this admission. Patient lying in bed comfortably. There is no ascites output through the old SALVADOR drain site at this time. She does remain on a Lasix drip. Afebrile. WBC 6.12 Hgb 9.3 PHYSICAL EXAM: VITAL SIGNS: Reviewed. GENERAL: no acute distress. Generalized edema ABDOMEN: Abdomen distended. Nontender. No ascites output through the old SALVADOR drain site NEUROLOGIC: Alert and oriented. Cranial nerves II through XII grossly intact. ASSESSMENT: 1. Massive abdominal ascites with 2 paracentesis during this admission 2. History of alcoholic liver cirrhosis with abdominal ascites 3. Status post laparoscopic cholecystectomy in March 2024 4. Severe protein calorie malnutrition PLAN: -No surgical intervention planned -Continue to monitor ascites drainage from old SALVADOR drain site -Fluid management per nephrology Physician [employer] Work [employer]immer note has been reviewed by physician. Signing provider agrees with the documented findings, assessment, and plan of care. Objective - Vital Signs Vital signs: Vital Signs Temp 97.7 F 05/13/24 13:06 Pulse 98 05/13/24 13:06 Resp 22 05/13/24 13:06 BP 117/66 05/13/24 13:06 Pulse Ox 95 05/13/24 13:06 FiO2 Intake & Output 05/12/24 05/13/24 05/13/24 18:59 06:59 18:59 Intake Total 538 82.5 Output Total 800 Balance -262 82.5 Intake: Intake, IV Titration 100 82.5 Amount Furosemide 100 mg In 100 Sodium Chloride 0.9% 90 ml @ 10 MG/HR 10 mls/hr IV .Q10H [facility] Rx#: [id number] Furosemide 100 mg In 82.5 Sodium Chloride 0.9% 90 ml @ 10 MG/HR 10 mls/hr IV .Q10H [facility] Rx#: [id number] Oral 438 Output: Urine 800 Other: Voiding Method Toilet Toilet # Bowel Movements 2 - Labs CBC & Chem 7: 05/13/24 03:04 05/13/24 03:04 Labs: Abnormal Lab Results - Last 24 Hours (Table) 05/12/24 05/13/24 05/13/24 Range/Units 17:09 03:04 03:04 RBC 2.96 L (4.10-5.20) X 10*6/uL Hgb 9.3 L (12.0-15.0) g/dL Hct 28.4 L (37.2-46.3) % RDW 22.1 H (11.5-14.5) % Plt Count 113 L (140-440) X 10*3/uL Potassium 3.3 L (3.5-5.5) mmol/L Carbon Dioxide 20.6 L (21.6-31.8) mmol/L Anion Gap 12.40 H (4.00-12.00) mmol/L Creatinine 1.7 H (0.6-1.5) mg/dL Est GFR (CKD-EPI) 38 L (>=60) BUN/Creatinine Ratio 11.59 L (12.00-20.00) Ratio Calcium 8.1 L (8.7-10.3) mg/dL Alkaline Phosphatase 193 H (41-126) U/L Ammonia 33 H (<30) umol/L Total Protein 4.4 L (6.2-8.2) g/dL Albumin 2.6 L (3.8-4.9) g/dL Albumin/Globulin Ratio 1.44 L (1.60-3.17) Ratio
--- NOTE | 2024-05-13 14:08 | P.PN ---
Subjective Progress Note Date: 05/13/24 Principal diagnosis: Massive ascites s/p large-volume paracentesis with removal of 8.2 L Right lower lobe pneumonia Cellulitis of both upper extremity Hepatic encephalopathy Extensive lower extremity abdominal wall edema with weeping of his skin Hypoxic respiratory failure with oxygen at nighttime Sleep disordered breathing and sleep apnea May 13, 2024, patient sitting upright in the chair breathing comfortably, denies any chest pain swelling significantly improved patient remains on Lasix 10 mg an hour I's and O's continue to be on negative side on a daily basis, major oxygen saturation 95% hemodynamic status stable, labs reviewed hemoglobin hematocrit remains unchanged, platelet count low but stable 113,000, sodium is 139 potassium 3.3 BUN/creatinine is 19.7/1.7 May 12, 2024, patient seen eval examined during rounds labs reviewed medication care plan discussed, patient has been resumed on Lasix drip 10 mg an hour, ultrasound of the abdomen performed no significant amount of ascites fluid noted patient continue anasarca. Labs from today reviewed white cell count of 5.7, hemoglobin hematocrit 8.8/27 platelet count of 113, sodium 130 potassium 3 .9 BUN/creatinine is 18.6/1.6 LFTs alk phos elevated 169 cultures no growth so far May 09, 2024, patient seen eval examined during rounds labs reviewed medications reviewed Lasix drip has been stopped now, patient is getting small amount of albumin, remains on DuoNeb, on daptomycin and midodrine. Labs from today reviewed patient is composed awake and alert hemoglobin hematocrit is 9.5/29 which remains stable, white cell count 7.6, CBC otherwise within normal limit, sodium 132 potassium 3.4, BUN/creatinine is 18/1.5 glucose 96 patient is scheduled for large-volume paracentesis later on this afternoon by interventional radiology May 08, 2024, patient seen eval examined during rounds sitting upright in the chair, dressing is off diffuse erythema and edema up to thigh, With inflammatory changes in the lower extremity slightly improved from, abdomen is more distended and tense, discussed with RN will place a consultation for IR to do a large- volume paracentesis, patient remains on Lasix drip 5 mg an hour with adequate urine output, in addition patient has been IV cefazolin as well I's and O's reviewed and last 72 hours patient has been -3.6 L labs have been reviewed hemoglobin hematocrit remained stable with normal WBC count, platelet count also remained stable history not done today, medications reviewed May 07 2024, patient seen eval examined during rounds labs reviewed medications and care plan discussed, patient sitting upright in the chair is swelling in the lower extremity as well as the thigh and trunk stabilized however inflammatory changes are still there, patient remains on IV cefazolin tolerating very well, remains on Lasix drip which seems to be helping, patient remains on midodrine and continuation of home medications including sodium bicarb as well as rifaximin mean and antidepressant. Today reviewed CBC fairly stable, platelet count low but stable, sodium is 135 potassium 3.1 BUN/creatinine is 22 1.4 continue to improve due to improved renal perfusion, potassium is low being repleted May 06, 2024, patient seen evaluate examined during rounds labs reviewed medication care plan discussed, patient remains on Lasix drip 5 mg an hour, also on broad-spectrum IV antibiotic with Unasyn, acetic fluid culture no growth so far, Gram stain negative. Sodium is 133 potassium 2.8 BUN/creatinine is 26/1.51 continue to improve with diuresis. Patient remains on IV cefazolin with bronchodilators Dilaudid for pain control, lactulose and midodrine also getting rifaximin mean and white count for hepatic encephalopathy. May 05, 2024, patient seen evaluate examined labs reviewed medications and care plan discussed, overall respiratory status is stable on broad-spectrum antibiotic however patient has extensive edema throughout the body especially in the legs with weeping skin will discuss with nephrology about starting Lasix drip for diuresis, chest x-ray from today reviewed stable infiltrate no significant change Patient is a 44-year-old female with a past medical history significant for reflux cirrhosis of the liver nonalcoholic recently did have admission to the hospital for hypo natremia she was also noted to have sign ificant left lower extremity cellulitis and did have a UTI patient subsequently has been discharged home has been brought back to the hospital concerning for increasing swelling to bilateral lower extremity no also involving the right leg and also complaining of increasing shortness of breath patient symptom has been getting worse for the last 2 to 3 days patient denies high-grade fever or any chills and no fever have been recorded on presentation to the hospital patient was tachycardic on admission subsequently resolved she was not hypotensive or hypoxic and no need for supplemental oxygen patient did have white count of 7.3 BUN and creatinine has been mildly elevated patient did have a chest x-ray airspace opacity projecting over the spine correlate for pneumonia patient did have abdominal pelvis CT ascites extensive swelling to the subcutaneous tissue right lower lobe infiltrate correlate for pneumonia splenomegaly patient was started on Rocephin and Zithromax has been admitted to hospital, she has a large-volume paracentesis over 8.2 L of fluid removed. Her admitted chest x-ray significant for airspace opacities suggestive of pneumonia. CT scan of the abdomen pelvis extensive subcutaneous edema as well as ascites, Objective - Vital Signs Vital signs: Vital Signs Temp 97.7 F 05/13/24 13:06 Pulse 98 05/13/24 13:06 Resp 22 05/13/24 13:06 BP 117/66 05/13/24 13:06 Pulse Ox 95 05/13/24 13:06 FiO2 Intake & Output 05/12/24 05/13/24 05/13/24 18:59 06:59 18:59 Intake Total 538 82.5 Output Total 800 Balance -262 82.5 Intake: Intake, IV Titration 100 82.5 Amount Furosemide 100 mg In 100 Sodium Chloride 0.9% 90 ml @ 10 MG/HR 10 mls/hr IV .Q10H [facility] Rx#: [id number] Furosemide 100 mg In 82.5 Sodium Chloride 0.9% 90 ml @ 10 MG/HR 10 mls/hr IV .Q10H [facility] Rx#: [id number] Oral 438 Output: Urine 800 Other: Voiding Method Toilet Toilet # Bowel Movements 2 - Exam - Constitutional General appearance: morbidly obese - EENT Eyes: EOMI, PERRLA Ears: bilateral: normal - Neck Carotids: bilateral: upstroke normal Thyroid: negative: normal size - Respiratory Respiratory: bilateral: diminished - Cardiovascular Rhythm: regular Heart sounds: normal: S1, S2 - Gastrointestinal General gastrointestinal: distended - Integumentary Extensive edema of lower extremity and generalized body Integumentary: decreased turgor - Neurologic Neurologic: CNII-XII intact - Musculoskeletal Musculoskeletal: gait normal, generalized weakness, strength equal bilaterally - Psychiatric Psychiatric: A&O x's 3, appropriate affect, intact judgment & insight - Labs CBC & Chem 7: 05/13/24 03:04 05/13/24 03:04 Labs: Abnormal Lab Results - Last 24 Hours (Table) 05/12/24 05/13/24 05/13/24 Range/Units 17:09 03:04 03:04 RBC 2.96 L (4.10-5.20) X 10*6/uL Hgb 9.3 L (12.0-15.0) g/dL Hct 28.4 L (37.2-46.3) % RDW 22.1 H (11.5-14.5) % Plt Count 113 L (140-440) X 10*3/uL Potassium 3.3 L (3.5-5.5) mmol/L Carbon Dioxide 20.6 L (21.6-31.8) mmol/L Anion Gap 12.40 H (4.00-12.00) mmol/L Creatinine 1.7 H (0.6-1.5) mg/dL Est GFR (CKD-EPI) 38 L (>=60) BUN/Creatinine Ratio 11.59 L (12.00-20.00) Ratio Calcium 8.1 L (8.7-10.3) mg/dL Alkaline Phosphatase 193 H (41-126) U/L Ammonia 33 H (<30) umol/L Total Protein 4.4 L (6.2-8.2) g/dL Albumin 2.6 L (3.8-4.9) g/dL Albumin/Globulin Ratio 1.44 L (1.60-3.17) Ratio Assessment and Plan Assessment: Generalized anasarca on IV furosemide continuous drip 10 mg an hour tolerating well, Massive ascites s/p large-volume paracentesis with removal of 8.2 L, patient is status post repeat ultrasound of the abdomen no significant fluid seen Right lower lobe pneumonia Severe hypokalemia, on replacement slowly improve Cellulitis of both upper extremity Hepatic encephalopathy Extensive lower extremity abdominal wall edema with weeping of his skin Hypoxic respiratory failure with oxygen at nighttime Sleep disordered breathing and sleep apnea it Plan: Patient continued on potassium replacement protocol Lasix drip 10 mg an hour Continue gentle diuresis with Lasix, every Continue rifaximin and lactulose for hepatic encephalopathy Off of antibiotics, repeat x-ray no pneumonia seen Continue supplemental oxygen at nighttime if respiratory distress noted consider using BiPAP machine sleep study if she is agreeable as outpatient basis Time with Patient: Greater than 30
--- NOTE | 2024-05-13 15:33 | P.PN ---
Subjective Progress Note Date: 05/13/24 Principal diagnosis: Reason for follow-up is lower extremity cellulitis Patient is a 44-year-old female with a past medical history significant for reflux cirrhosis of the liver nonalcoholic has been brought to the hospital concerning for increasing swelling to lower extremity as well as abdominal noticed to have redness to the left leg concerning for cellulitis did have abnormal CT chest x-ray concerning for possible right lower lobe pneumonia. On today's evaluation that is 05/13/2024, Patient is afebrile this morning patient denies having any chest pain shortness of breath or cough, the patient is currently on room air, patient denies any abdominal pain no diarrhea no nausea no vomiting, denies any worsening pain to the lower extremity. Patient white count 6.12, creatinine is 1.7 Objective - Vital Signs Vital signs: Vital Signs Temp 97.7 F 05/13/24 13:06 Pulse 87 05/13/24 15:28 Resp 22 05/13/24 13:06 BP 117/66 05/13/24 13:06 Pulse Ox 95 05/13/24 13:06 FiO2 Intake & Output 05/12/24 05/13/24 05/13/24 18:59 06:59 18:59 Intake Total 538 82.5 Output Total 800 Balance -262 82.5 Intake: Intake, IV Titration 100 82.5 Amount Furosemide 100 mg In 100 Sodium Chloride 0.9% 90 ml @ 10 MG/HR 10 mls/hr IV .Q10H [facility] Rx#: [id number] Furosemide 100 mg In 82.5 Sodium Chloride 0.9% 90 ml @ 10 MG/HR 10 mls/hr IV .Q10H [facility] Rx#: [id number] Oral 438 Output: Urine 800 Other: Voiding Method Toilet Toilet # Bowel Movements 2 - Exam GENERAL DESCRIPTION: Middle-age female lying in bed in no distress RESPIRATORY SYSTEM: Unlabored breathing , decreased breath sounds at bases HEART: S1 S2 regular rate and rhythm , ABDOMEN: Soft , no tenderness EXTREMITIES: Bilateral lower extremity currently wrapped no drainage - Labs CBC & Chem 7: 05/13/24 03:04 05/13/24 03:04 Labs: Abnormal Lab Results - Last 24 Hours (Table) 05/12/24 05/13/24 05/13/24 Range/Units 17:09 03:04 03:04 RBC 2.96 L (4.10-5.20) X 10*6/uL Hgb 9.3 L (12.0-15.0) g/dL Hct 28.4 L (37.2-46.3) % RDW 22.1 H (11.5-14.5) % Plt Count 113 L (140-440) X 10*3/uL Potassium 3.3 L (3.5-5.5) mmol/L Carbon Dioxide 20.6 L (21.6-31.8) mmol/L Anion Gap 12.40 H (4.00-12.00) mmol/L Creatinine 1.7 H (0.6-1.5) mg/dL Est GFR (CKD-EPI) 38 L (>=60) BUN/Creatinine Ratio 11.59 L (12.00-20.00) Ratio Calcium 8.1 L (8.7-10.3) mg/dL Alkaline Phosphatase 193 H (41-126) U/L Ammonia 33 H (<30) umol/L Total Protein 4.4 L (6.2-8.2) g/dL Albumin 2.6 L (3.8-4.9) g/dL Albumin/Globulin Ratio 1.44 L (1.60-3.17) Ratio Assessment and Plan (1) Bilateral leg edema Current Visit: Yes Status: Acute Code(s): R60.0 - LOCALIZED EDEMA SNOMED Code(s): 866811503 (2) Congestive heart failure Current Visit: Yes Status: Acute Code(s): I50.9 - HEART FAILURE, UNSPECIFIED SNOMED Code(s): 39823286 (3) Penicillin allergy Current Visit: No Status: Acute Code(s): Z88.0 - ALLERGY STATUS TO PENICILLIN SNOMED Code(s): 67897102 (4) Cellulitis of right leg Current Visit: Yes Status: Acute Code(s): L03.115 - CELLULITIS OF RIGHT LOWER LIMB SNOMED Code(s): 22462981321854267 Plan: 1patient presented to hospital with increasing abdominal as well as lower extremity swelling more likely related to excessive fluid examination secondary to her cirrhosis of the liver patient did have right lower extremity which is swollen and red slightly warm to touch concerning for cellulitis. 2patient did have abnormal CT as well as chest x-ray suspicious for pneumonia however the patient did not have significant respiratory symptoms to be susp icious for such. 3penicillin allergy that will limit the number of antibiotics safe to use. 4patient right lower extremity for CT negative for any abscess 5patient remains to be afebrile, white count is normal 6we will continue daptomycin Aquacel silver dressing to the right foot wound followed by Theo wrap to keep the swelling down, reevaluate the leg tomorrow and dressing changes Dictation was produced using [facility] dictation software. please excuse any grammatical, word or spelling errors. Time with Patient: Less than 30
[2024-05-13] MEDS: methylPREDNISolone SOD SUCCI 40 MG/ML 1 ML VIAL IV SCH (20:52)
[2024-05-14 11:03] LABS: BUN/Creat Ratio 11.85 Ratio (12.00-20.00); Blood Urea Nitrogen 23.7 mg/dL (9.0-27.0); Calcium 8.2 mg/dL (8.7-10.3); Carbon Dioxide 20.9 mmol/L (21.6-31.8); Chloride 102 mmol/L (96-109); Glucose 148 mg/dL (70-110); Potassium 2.6 mmol/L (3.5-5.5); Sodium 138 mmol/L (135-145)
[2024-05-14] MEDS ORDERED: Potassium Replacement Protocol 1 EACH MISC MISCELLANE PRN (11:14)
--- NOTE | 2024-05-14 11:44 | PN ---
PROGRESS NOTE lactulose and Xifaxan for hepatic encephalopathy. MMODL / IJN: [id number] /
[2024-05-14] MEDS: ENOXAPARIN 40 MG/0.4 ML SYRINGE SQ SCH (12:19)
[2024-05-14] MEDS: POTASSIUM CHLORIDE ER 20 MEQ TAB.ER PO SCH (12:20)
--- NOTE | 2024-05-14 12:53 | P.PN ---
Subjective Progress Note Date: 05/14/24 Patient seen in follow-up for acute kidney injury and volume overload. Maintained on Lasix drip. Nonoliguric. Edema is slowly improving. Vital signs are stable. General: No acute distress. HEENT: Head exam is unremarkable. LUNGS: No audible rhonchi or wheezes. HEART: Rate and Rhythm are regular. ABDOMEN: Obese, nontender. Objective - Vital Signs Vital signs: Vital Signs Temp 97.8 F 05/14/24 07:11 Pulse 84 05/14/24 08:43 Resp 18 05/14/24 07:11 BP 115/65 05/14/24 07:11 Pulse Ox 90 L 05/14/24 07:11 FiO2 Intake & Output 05/13/24 05/14/24 05/14/24 18:59 06:59 18:59 Intake Total 82.5 148.833 Balance 82.5 148.833 Weight 127.4 kg Intake: Intake, IV Titration 82.5 148.833 Amount Furosemide 100 mg In 82.5 148.833 Sodium Chloride 0.9% 90 ml @ 10 MG/HR 10 mls/hr IV .Q10H [facility] Rx#: [id number] Other: Voiding Method Toilet - Labs CBC & Chem 7: 05/13/24 03:04 05/14/24 04:28 Assessment and Plan Assessment: 1. Acute kidney injury secondary to ATN secondary to hepatorenal syndrome. Renal function worsening Creatinine 2.0 today 2. Hypervolemic hyponatremia. 3. Hypokalemia from diuresis And hypomagnesemia. 4. Liver cirrhosis with ascites. Paracentesis done May 04, 2024 with 8.2 L drained. Underwent another paracentesis May 09, 2024 with 7 L drained. 5. Hypomagnesemia from diuresis. Plan: Renal funciton worsening, will discontinue Lasix drip, consider starting PO diuretics tomorrow. IV albumin for paracentesis >5L Maintain 1500 cc fluid restriction. Replace potassium and magnesium ordered Daily labs, strict I/O's
--- NOTE | 2024-05-14 14:52 | P.PN ---
Subjective Progress Note Date: 05/14/24 Principal diagnosis: Reason for follow-up is lower extremity cellulitis Patient is a 44-year-old female with a past medical history significant for reflux cirrhosis of the liver nonalcoholic has been brought to the hospital concerning for increasing swelling to lower extremity as well as abdominal noticed to have redness to the left leg concerning for cellulitis did have abnormal CT chest x-ray concerning for possible right lower lobe pneumonia. On today's evaluation that is 05/14/2024,the patient denies any fever or any chills, patient is breathing comfortably on room air, the patient denies chest pain shortness of breath and no significant cough, patient denies abdominal pain, no nausea vomiting or diarrhea and denies any worsening pain to the lower extremity. Patient creatinine of 2.0. Objective - Vital Signs Vital signs: Vital Signs Temp 97.5 F L 05/14/24 13:54 Pulse 85 05/14/24 13:54 Resp 18 05/14/24 13:54 BP 125/67 05/14/24 13:54 Pulse Ox 93 L 05/14/24 13:54 FiO2 Intake & Output 05/13/24 05/14/24 05/14/24 18:59 06:59 18:59 Intake Total 82.5 148.833 Balance 82.5 148.833 Weight 127.4 kg Intake: Intake, IV Titration 82.5 148.833 Amount Furosemide 100 mg In 82.5 148.833 Sodium Chloride 0.9% 90 ml @ 10 MG/HR 10 mls/hr IV .Q10H [facility] Rx#: [id number] Other: Voiding Method Toilet - Exam GENERAL DESCRIPTION: Middle-age female lying in bed in no distress RESPIRATORY SYSTEM: Unlabored breathing , decreased breath sounds at bases HEART: S1 S2 regular rate and rhythm , ABDOMEN: Soft , no tenderness EXTREMITIES: Right lower extremity swelling redness slightly decreased - Labs CBC & Chem 7: 05/13/24 03:04 05/14/24 04:28 Labs: Abnormal Lab Results - Last 24 Hours (Table) 05/14/24 Range/Units 04:28 Potassium 2.6 A* (3.5-5.5) mmol/L Carbon Dioxide 20.9 L (21.6-31.8) mmol/L Anion Gap 15.10 H (4.00-12.00) mmol/L Creatinine 2.0 H (0.6-1.5) mg/dL Est GFR (CKD-EPI) 31 L (>=60) BUN/Creatinine Ratio 11.85 L (12.00-20.00) Ratio Glucose 148 H (70-110) mg/dL Calcium 8.2 L (8.7-10.3) mg/dL Assessment and Plan (1) Bilateral leg edema Current Visit: Yes Status: Acute Code(s): R60.0 - LOCALIZED EDEMA SNOMED Code(s): 418398098 (2) Congestive heart failure Current Visit: Yes Status: Acute Code(s): I50.9 - HEART FAILURE, UNSPECIFIED SNOMED Code(s): 01791847 (3) Penicillin allergy Current Visit: No Status: Acute Code(s): Z88.0 - ALLERGY STATUS TO PENICILLIN SNOMED Code(s): 49258755 (4) Cellulitis of right leg Current Visit: Yes Status: Acute Code(s): L03.115 - CELLULITIS OF RIGHT LOWER LIMB SNOMED Code(s): 76971439987377843 Plan: 1patient presented to hospital with increasing abdominal as well as lower extremity swelling more likely related to excessive fluid examination secondary to her cirrhosis of the liver patient did have right lower extremity which is swollen and red slightly warm to touch concerning for cellulitis. 2patient did have abnormal CT as well as chest x-ray suspicious for pneumonia however the patient did not have significant respiratory symptoms to be suspicious for such. 3penicillin allergy that will limit the number of antibiotics safe to use. 4patient right lower extremity for CT negative for any abscess, patient to continue local wound care with atelectasis and a dressing and Theo wrap with the daptomycin and monitor clinical course closely Dictation was produced using [employer] dictation software. please excuse any grammatical, word or spelling errors. Time with Patient: Less than 30
--- NOTE | 2024-05-14 16:02 | P.PN ---
Subjective Progress Note Date: 05/14/24 CHIEF COMPLAINT: Ascites HISTORY OF PRESENT ILLNESS: The patient is a 44-year-old female with abdominal ascites. She has a coloplast along the right abdominal incision. She has new right anterior foot wound and swelling. ROS: No reports of nausea and vomiting. No fevers or chills. No new chest susie n. No productive sputum PHYSICAL EXAM: VITAL SIGNS: Reviewed CONSTITUTIONAL: Well developed and in no acute distress. EYES: Conjuctivae without sclera icterus. Extraocular movements grossly intact. HEAD, EARS, NOSE, THROAT: Moist buccal mucosa. Head is atraumatic, normocephalic. Hears conversational speech. No nasal drainage. RESPIRATORY: Non-labored respirations and equal bilateral excursions. CARDIOVASCULAR: Palpable 2+ radial pulses. ABDOMEN: Obese with ascites minimal in coloplast. MUSCULOSKELETAL: 3+ edema lower extremity and right foot with cellulitis and 4- cm ulcer SKIN: Good skin turgor. Well perfused. NEUROLOGIC: Cranial nerves II through XII grossly intact. No focal or lateralizing signs. PSYCH: Appropriate affect. Alert and oriented to person, place and time. CLINICAL LABS: Reviewed. ASSESSMENT: 1. Cirrhosis with ascites 2. Morbid obesity due to excess calories, BMI 48.2 3. Right foot ulcer, 4-cm anterior with cellulitis PLAN: 1. Antibiotic management per infectious disease 2. Recommend sodium restriction for abdominal ascites. 3. Continue coloplast. Objective - Vital Signs Vital signs: Vital Signs Temp 97.5 F L 05/14/24 13:54 Pulse 92 05/14/24 15:56 Resp 18 05/14/24 13:54 BP 125/67 05/14/24 13:54 Pulse Ox 93 L 05/14/24 13:54 FiO2 Intake & Output 05/13/24 05/14/24 05/14/24 18:59 06:59 18:59 Intake Total 82.5 148.833 Balance 82.5 148.833 Weight 127.4 kg Intake: Intake, IV Titration 82.5 148.833 Amount Furosemide 100 mg In 82.5 148.833 Sodium Chloride 0.9% 90 ml @ 10 MG/HR 10 mls/hr IV .Q10H [facility] Rx#: [id number] Other: Voiding Method Toilet - Labs CBC & Chem 7: 05/13/24 03:04 05/14/24 04:28 Labs: Abnormal Lab Results - Last 24 Hours (Table) 05/14/24 Range/Units 04:28 Potassium 2.6 A* (3.5-5.5) mmol/L Carbon Dioxide 20.9 L (21.6-31.8) mmol/L Anion Gap 15.10 H (4.00-12.00) mmol/L Creatinine 2.0 H (0.6-1.5) mg/dL Est GFR (CKD-EPI) 31 L (>=60) BUN/Creatinine Ratio 11.85 L (12.00-20.00) Ratio Glucose 148 H (70-110) mg/dL Calcium 8.2 L (8.7-10.3) mg/dL
[2024-05-15 09:56] LABS: Basophils # (A) 0.03 X 10*3/uL (0.00-0.10); Basophils % (A) 0.2 %; Eosinophils # (A) 0 X 10*3/uL (0.04-0.35); Eosinophils % (A) 0 %; HCT 32.2 % (37.2-46.3); HGB 10.3 g/dL (12.0-15.0); Lymphocytes % (A) 7.1 %; MCH 32.1 pg (27.0-32.0); MCV 100.3 FL (80.0-97.0); Mean Platelet Volume 12.9 FL (9.5-12.2); Monocytes # (A) 0.61 X 10*3/uL (0.20-1.00); Monocytes % (A) 3.6 %; NRBC Per 100 WBC 0 X 10*3/uL (0.00-0.01); Neutrophils # (A) 14.84 X 10*3/uL (1.80-7.70); Neutrophils % (A) 88.2 %; Platelet Count 116 X 10*3/uL (140-440); RBC 3.21 X 10*6/uL (4.10-5.20); RDW 21.3 % (11.5-14.5); WBC 16.83 X 10*3/uL (4.50-10.00)
[2024-05-15 10:38] LABS: ALT 13 U/L (8-44); AST 29 U/L (13-35); Alkaline Phosphatase 262 U/L (41-126); BUN/Creat Ratio 12.74 Ratio (12.00-20.00); Blood Urea Nitrogen 29.3 mg/dL (9.0-27.0); Calcium 8.8 mg/dL (8.7-10.3); Chloride 100 mmol/L (96-109); Globulin 2.3 g/dL (1.6-3.3); Glucose 149 mg/dL (70-110); Potassium 3.1 mmol/L (3.5-5.5); Sodium 137 mmol/L (135-145); Total Bilirubin 0.9 mg/dL (0.3-1.2); Total Protein 5.3 g/dL (6.2-8.2)
--- NOTE | 2024-05-15 11:34 | P.PN ---
Subjective Progress Note Date: 05/15/24 Patient seen in follow-up for acute kidney injury and volume overload. Maintained on Lasix drip. Nonoliguric. Edema is slowly improving. Vital signs are stable. General: No acute distress. HEENT: Head exam is unremarkable. LUNGS: No audible rhonchi or wheezes. HEART: Rate and Rhythm are regular. ABDOMEN: Obese, nontender. Objective - Vital Signs Vital signs: Vital Signs Temp 97.8 F 05/15/24 07:31 Pulse 81 05/15/24 09:03 Resp 16 05/15/24 07:31 BP 106/67 05/15/24 07:31 Pulse Ox 94 L 05/15/24 08:48 FiO2 Intake & Output 05/14/24 05/15/24 05/15/24 18:59 06:59 18:59 Intake Total 800 237 Output Total 800 Balance 800 -563 Weight 128.6 kg Intake: Oral 800 237 Output: Urine 800 Other: Voiding Method Toilet - Labs CBC & Chem 7: 05/15/24 03:54 05/15/24 03:54 Labs: Abnormal Lab Results - Last 24 Hours (Table) 05/14/24 05/15/24 Range/Units 04:28 03:54 WBC 16.83 H (4.50-10.00) X 10*3/uL RBC 3.21 L (4.10-5.20) X 10*6/uL Hgb 10.3 L (12.0-15.0) g/dL Hct 32.2 L (37.2-46.3) % MCV 100.3 H (80.0-97.0) FL MCH 32.1 H (27.0-32.0) pg RDW 21.3 H (11.5-14.5) % Plt Count 116 L (140-440) X 10*3/uL MPV 12.9 H (9.5-12.2) FL Immature Gran # 0.15 H (0.00-0.04) X 10*3/uL Neutrophils # 14.84 H (1.80-7.70) X 10*3/uL Eosinophils # 0 L (0.04-0.35) X 10*3/uL Potassium 2.6 A* (3.5-5.5) mmol/L Carbon Dioxide 20.9 L (21.6-31.8) mmol/L Anion Gap 15.10 H (4.00-12.00) mmol/L Creatinine 2.0 H (0.6-1.5) mg/dL Est GFR (CKD-EPI) 31 L (>=60) BUN/Creatinine Ratio 11.85 L (12.00-20.00) Ratio Glucose 148 H (70-110) mg/dL Calcium 8.2 L (8.7-10.3) mg/dL Assessment and Plan Assessment: 1. Acute kidney injury secondary to ATN secondary to hepatorenal syndrome. Renal function worsening Creatinine 2.3 today 2. Hypervolemic hyponatremia. 3. Hypokalemia from diuresis And hypomagnesemia. 4. Liver cirrhosis with ascites. Paracentesis done May 04, 2024 with 8.2 L drained. Underwent another paracentesis May 09, 2024 with 7 L drained. 5. Hypomagnesemia from diuresis. Plan: Renal funciton worsening, Lasix drip discontinued IV albumin for paracentesis >5L Maintain 1500 cc fluid restriction. Replace potassium as needed consider restarting diuretics tomorrow if kidney funciton stable or improved
--- NOTE | 2024-05-15 15:55 | P.PN ---
Subjective Progress Note Date: 05/15/24 CHIEF COMPLAINT: Ascites HISTORY OF PRESENT ILLNESS: The patient is a 44-year-old female with abdominal ascites. She has a coloplast along the right abdominal incision. She reports no new drainage or further drainage along right sided puncture site. She now has the RLE wrapped. ROS: No reports of nausea and vomiting. No new chest pain. No productive sputum PHYSICAL EXAM: VITAL SIGNS: Reviewed CONSTITUTIONAL: Well developed and in no acute distress. EYES: Conjuctivae without sclera icterus. Extraocular movements grossly intact. HEAD, EARS, NOSE, THROAT: Moist buccal mucosa. Head is atraumatic, normocephalic. Hears conversational speech. No nasal drainage. RESPIRATORY: Non-labored respirations and equal bilateral excursions. CARDIOVASCULAR: Palpable 2+ radial pulses. ABDOMEN: Obese. Non peritonitis. Coloplast present. No moderate drainage. MUSCULOSKELETAL: 3+ edema lower extremity with right foot wrapped. SKIN: Good skin turgor. Well perfused. NEUROLOGIC: Cranial nerves II through XII grossly intact. No focal or lateralizing signs. PSYCH: Appropriate affect. Alert and oriented to person, place and time. CLINICAL LABS: Reviewed. WBC newly elevated to over 16,000 ASSESSMENT: 1. Cirrhosis with ascites 2. Morbid obesity due to excess calories, BMI 48.2 3. Right foot ulcer, 4-cm anterior with cellulitis 4. Leukocytosis PLAN: 1. She has no further drainage and recommend sodium restriction with fluid management for ascites 2. She has new elevation of WBC. May need cultures in new presence of fevers. Objective - Vital Signs Vital signs: Vital Signs Temp 97.7 F 05/15/24 14:03 Pulse 86 05/15/24 15:27 Resp 17 05/15/24 14:03 BP 113/68 05/15/24 14:03 Pulse Ox 91 L 05/15/24 14:03 FiO2 Intake & Output 05/14/24 05/15/24 05/15/24 18:59 06:59 18:59 Intake Total 800 237 Output Total 800 Balance 800 -563 Weight 128.6 kg Intake: Oral 800 237 Output: Urine 800 Other: Voiding Method Toilet Toilet - Labs CBC & Chem 7: 05/15/24 03:54 05/15/24 03:54 Labs: Abnormal Lab Results - Last 24 Hours (Table) 05/15/24 05/15/24 Range/Units 03:54 03:54 WBC 16.83 H (4.50-10.00) X 10*3/uL RBC 3.21 L (4.10-5.20) X 10*6/uL Hgb 10.3 L (12.0-15.0) g/dL Hct 32.2 L (37.2-46.3) % MCV 100.3 H (80.0-97.0) FL MCH 32.1 H (27.0-32.0) pg RDW 21.3 H (11.5-14.5) % Plt Count 116 L (140-440) X 10*3/uL MPV 12.9 H (9.5-12.2) FL Immature Gran # 0.15 H (0.00-0.04) X 10*3/uL Neutrophils # 14.84 H (1.80-7.70) X 10*3/uL Eosinophils # 0 L (0.04-0.35) X 10*3/uL Potassium 3.1 L (3.5-5.5) mmol/L Carbon Dioxide 19.0 L (21.6-31.8) mmol/L Anion Gap 18.00 H (4.00-12.00) mmol/L BUN 29.3 H (9.0-27.0) mg/dL Creatinine 2.3 H (0.6-1.5) mg/dL Est GFR (CKD-EPI) 26 L (>=60) Glucose 149 H (70-110) mg/dL Alkaline Phosphatase 262 H (41-126) U/L Total Protein 5.3 L (6.2-8.2) g/dL Albumin 3.0 L (3.8-4.9) g/dL Albumin/Globulin Ratio 1.30 L (1.60-3.17) Ratio
--- NOTE | 2024-05-15 16:26 | P.PN ---
Subjective Progress Note Date: 05/15/24 Principal diagnosis: Reason for follow-up is lower extremity cellulitis Patient is a 44-year-old female with a past medical history significant for reflux cirrhosis of the liver nonalcoholic has been brought to the hospital concerning for increasing swelling to lower extremity as well as abdominal noticed to have redness to the left leg concerning for cellulitis did have abnormal CT chest x-ray concerning for possible right lower lobe pneumonia. On today's evaluation that is 05/15/2024,the patient remains to be afebrile, patient is on room air not requiring supplemental oxygen and denies any shortness of breath no chest pain or cough.Patient denies having any nausea or vomiting, no abdominal pain and no diarrhea has been reported denies any worsening pain to the lower extremity. Patient white count is up to 16.83 today, creatinine is up to 2.3 Objective - Vital Signs Vital signs: Vital Signs Temp 97.7 F 05/15/24 14:03 Pulse 86 05/15/24 15:27 Resp 17 05/15/24 14:03 BP 113/68 05/15/24 14:03 Pulse Ox 91 L 05/15/24 14:03 FiO2 Intake & Output 05/14/24 05/15/24 05/15/24 18:59 06:59 18:59 Intake Total 800 237 Output Total 800 Balance 800 -563 Weight 128.6 kg Intake: Oral 800 237 Output: Urine 800 Other: Voiding Method Toilet Toilet - Exam GENERAL DESCRIPTION: Middle-age female lying in bed in no distress RESPIRATORY SYSTEM: Unlabored breathing , decreased breath sounds at bases HEART: S1 S2 regular rate and rhythm , ABDOMEN: Soft , no tenderness EXTREMITIES: Bilateral legs are currently wrapped in Theo wrap - Labs CBC & Chem 7: 05/15/24 03:54 05/15/24 03:54 Labs: Abnormal Lab Results - Last 24 Hours (Table) 05/15/24 05/15/24 Range/Units 03:54 03:54 WBC 16.83 H (4.50-10.00) X 10*3/uL RBC 3.21 L (4.10-5.20) X 10*6/uL Hgb 10.3 L (12.0-15.0) g/dL Hct 32.2 L (37.2-46.3) % MCV 100.3 H (80.0-97.0) FL MCH 32.1 H (27.0-32.0) pg RDW 21.3 H (11.5-14.5) % Plt Count 116 L (140-440) X 10*3/uL MPV 12.9 H (9.5-12.2) FL Immature Gran # 0.15 H (0.00-0.04) X 10*3/uL Neutrophils # 14.84 H (1.80-7.70) X 10*3/uL Eosinophils # 0 L (0.04-0.35) X 10*3/uL Potassium 3.1 L (3.5-5.5) mmol/L Carbon Dioxide 19.0 L (21.6-31.8) mmol/L Anion Gap 18.00 H (4.00-12.00) mmol/L BUN 29.3 H (9.0-27.0) mg/dL Creatinine 2.3 H (0.6-1.5) mg/dL Est GFR (CKD-EPI) 26 L (>=60) Glucose 149 H (70-110) mg/dL Alkaline Phosphatase 262 H (41-126) U/L Total Protein 5.3 L (6.2-8.2) g/dL Albumin 3.0 L (3.8-4.9) g/dL Albumin/Globulin Ratio 1.30 L (1.60-3.17) Ratio Assessment and Plan (1) Bilateral leg edema Current Visit: Yes Status: Acute Code(s): R60.0 - LOCALIZED EDEMA SNOMED Code(s): 429029227 (2) Congestive heart failure Current Visit: Yes Status: Acute Code(s): I50.9 - HEART FAILURE, UNSPECIFIED SNOMED Code(s): 90206572 (3) Penicillin allergy Current Visit: No Status: Acute Code(s): Z88.0 - ALLERGY STATUS TO PENI CILLIN SNOMED Code(s): 48578589 (4) Cellulitis of right leg Current Visit: Yes Status: Acute Code(s): L03.115 - CELLULITIS OF RIGHT LOWER LIMB SNOMED Code(s): 74881581375787212 Plan: 1patient presented to hospital with increasing abdominal as well as lower extremity swelling more likely related to excessive fluid examination secondary to her cirrhosis of the liver patient did have right lower extremity which is sw ollen and red slightly warm to touch concerning for cellulitis. 2patient did have abnormal CT as well as chest x-ray suspicious for pneumonia however the patient did not have significant respiratory symptoms to be suspicious for such. 3penicillin allergy that will limit the number of antibiotics safe to use. 4patient right lower extremity for CT negative for any abscess, 5worsening leukocytosis more likely related to steroids and will monitor closely continue with the daptomycin will reevaluate the leg tomorrow at the time of dressing changes Dictation was produced using [email or web address] dictation software. please excuse any grammatical, word or spelling errors. Time with Patient: Less than 30
[2024-05-15] MEDS: POTASSIUM CHLORIDE ER 20 MEQ TAB.ER PO STA (18:01)
[2024-05-16 08:14] VITALS: RESP 17
[2024-05-16 08:44] LABS: ALT 13 U/L (8-44); AST 27 U/L (13-35); Alkaline Phosphatase 257 U/L (41-126); BUN/Creat Ratio 15.71 Ratio (12.00-20.00); Blood Urea Nitrogen 37.7 mg/dL (9.0-27.0); Calcium 8.5 mg/dL (8.7-10.3); Carbon Dioxide 18.1 mmol/L (21.6-31.8); Chloride 102 mmol/L (96-109); Glucose 151 mg/dL (70-110); Sodium 137 mmol/L (135-145)
--- NOTE | 2024-05-16 09:05 | US ---
EXAMINATION TYPE: US abdomen limited DATE OF EXAM: 05/16/2024 COMPARISON: NONE CLINICAL INDICATION: Female, 44 years old with history of Assess for ascites.; Sonographic images taken of patients abdomen to assess for ascites. Fluid visualized in right abdomen. IMPRESSION: Small amount of ascites. [facility], , 05/16/2024 9:03 AM
[2024-05-16 09:20] LABS: INR 1.3 (<1.2); Prothrombin Time 13.8 sec (10.0-12.5)
[2024-05-16 09:35] LABS: Basophils # (A) 0.02 X 10*3/uL (0.00-0.10); Basophils % (A) 0.2 %; Eosinophils # (A) 0 X 10*3/uL (0.04-0.35); Eosinophils % (A) 0 %; HCT 29.5 % (37.2-46.3); HGB 9.8 g/dL (12.0-15.0); Lymphocytes % (A) 8.3 %; MCH 31.5 pg (27.0-32.0); MCHC 33.2 g/dL (32.0-37.0); MCV 94.9 FL (80.0-97.0); Mean Platelet Volume 12.3 FL (9.5-12.2); Monocytes % (A) 4.1 %; NRBC Per 100 WBC 0 X 10*3/uL (0.00-0.01); Neutrophils # (A) 10.38 X 10*3/uL (1.80-7.70); Neutrophils % (A) 86.1 %; Platelet Count 105 X 10*3/uL (140-440); RBC 3.11 X 10*6/uL (4.10-5.20); RDW 21.4 % (11.5-14.5); WBC 12.06 X 10*3/uL (4.50-10.00)
--- NOTE | 2024-05-16 11:15 | P.PN ---
Subjective Progress Note Date: 05/16/24 CHIEF COMPLAINT: Shortness of breath HISTORY OF PRESENT ILLNESS: Patient has had 2 paracentesis during this admission. She is being evaluated today for possible paracentesis. Patient has having less output of ascites from that SALVADOR drain site. PHYSICAL EXAM: VITAL SIGNS: Reviewed. GENERAL: no acute distress. Generalized edema ABDOMEN: Abdomen distended. Nontender. very minimal ascites drainage in ostomy bag over old SALVADOR site NEUROLOGIC: Alert and oriented. Cranial nerves II through XII grossly intact. ASSESSMENT: 1. Massive abdominal ascites with 2 paracentesis during this admission 2. History of alcoholic liver cirrhosis with abdominal ascites 3. Status post laparoscopic cholecystectomy in March 2024 4. Severe protein calorie malnutrition PLAN: -No surgical intervention planned -Continue to monitor ascites drainage from old SALVADOR drain site -Fluid management per nephrology Physician Sports Equipment Supervisor note has been reviewed by physician. Signing provider agrees with the documented findings, assessment, and plan of care. Objective - Vital Signs Vital signs: Vital Signs Temp 97.8 F 05/16/24 08:00 Pulse 81 05/16/24 09:29 Resp 17 05/16/24 08:00 BP 120/69 05/16/24 08:00 Pulse Ox 94 L 05/16/24 09:18 FiO2 Intake & Output 05/15/24 05/16/24 05/16/24 18:59 06:59 18:59 Intake Total 900 357 Output Total 800 Balance 100 357 Weight 128 kg Intake: Oral 900 357 Output: Urine 800 Other: Voiding Method Toilet Toilet # Bowel Movements 1 - Labs CBC & Chem 7: 05/16/24 03:12 05/16/24 03:12 Labs: Abnormal Lab Results - Last 24 Hours (Table) 05/16/24 05/16/24 05/16/24 Range/Units 03:12 03:12 08:47 WBC 12.06 H (4.50-10.00) X 10*3/uL RBC 3.11 L (4.10-5.20) X 10*6/uL Hgb 9.8 L (12.0-15.0) g/dL Hct 29.5 L (37.2-46.3) % RDW 21.4 H (11.5-14.5) % Plt Count 105 L (140-440) X 10*3/uL MPV 12.3 H (9.5-12.2) FL Immature Gran # 0.16 H (0.00-0.04) X 10*3/uL Neutrophils # 10.38 H (1.80-7.70) X 10*3/uL Eosinophils # 0 L (0.04-0.35) X 10*3/uL PT 13.8 H (10.0-12.5) sec INR 1.3 H (<1.2) Potassium 3.0 L (3.5-5.5) mmol/L Carbon Dioxide 18.1 L (21.6-31.8) mmol/L Anion Gap 16.90 H (4.00-12.00) mmol/L BUN 37.7 H (9.0-27.0) mg/dL Creatinine 2.4 H (0.6-1.5) mg/dL Est GFR (CKD-EPI) 25 L (>=60) Glucose 151 H (70-110) mg/dL Calcium 8.5 L (8.7-10.3) mg/dL Alkaline Phosphatase 257 H (41-126) U/L Total Protein 5.0 L (6.2-8.2) g/dL Albumin 3.0 L (3.8-4.9) g/dL Albumin/Globulin Ratio 1.50 L (1.60-3.17) Ratio
--- NOTE | 2024-05-16 11:46 | PN ---
PROGRESS NOTE SUBJECTIVE: A 44-year-old white female being treated for cirrhosis, diastolic heart failure, and ascitic fluids. She has had paracentesis twice, is scheduled for another 1 tomorrow. For volume overload, she is on Lasix drip. She does not weigh her. She is up ambulating a little bit. Hemoglobin is 10.3, BUN is 29, creatinine is 2.3, potassium 3.1, white count 16. OBJECTIVE: VITAL SIGNS: Blood pressure 106/67, O2 of 94%, pulse 81, respiratory rate 16 to 18, temp 97.8. LUNGS: Show scattered wheeze. CARDIOVASCULAR: S1, S2. ABDOMEN: Fluid wave large, abdominal girth large. EXTREMITIES: 3+ edema in bilateral lower extremities with cellulitis and redness severe on the lower extremities. IMPRESSION: Dr. Kaba has treated her for UTI as well as cellulitis of the legs, possible paracentesis for tomorrow. IV albumin for paracenteses greater than 5 L. Renal function worsening, so we are going to watch Lasix. May possibly cut back on it. Fluid restriction, replace potassium. Agree withholding diuretics if kidney function worsens. Prognosis guarded. MMODL / IJN: [id number] /
--- NOTE | 2024-05-16 12:11 | P.PN ---
Subjective Progress Note Date: 05/16/24 Principal diagnosis: MEMO secondary to ATN secondary to hepatorenal syndrome Hospital course: Patient is a 44 year old female with PMH of liver cirrhosis and recent hospitalisation for hyponatremia treated with demeclocycline, who presented to the ED with abdominal distension and worsening edema on 05/03. She was admitted for massive ascites, right lower lobe pneumonia, cellulitis. 05/11/24 Patient seen today. She complains of lower abdominal pain, back pain and groin pain. Denies dysuria, weakness, chest pain and shortness of breath. She is non oliguric and renal function is better. Labs today show sodium 139, potassium 3.9, BUN 17.3, creatinine 1.3, GFR 52, magnesium 1.8. 05/12/24 Patient evaluated today. She notes an improvement in her lower abdominal pain. Denies weakness, chest pain, shortness of breath. She reports significant urine output and shows significant improvement in edema. Labs today show Na 136, K 3.9, BUN 18.6, creatinine 1.6, GFR 41. 05/13/24 Patient was evaluated today in room 481. No new complaints. She mentions not using purewick external cathether but does report signifiant urine output with metolazone. Denies shortness of breath, weakness, chest pain. She continues to be on lasix drip. Labs show Na 139, K 3.3 , BUN 19.7, creatinine 1.7, GFR 38. 05/14/24 Patient seen in follow-up for acute kidney injury and volume overload. Mainta ined on Lasix drip. Nonoliguric. Edema is slowly improving. 05/15/24 Patient seen in follow-up for acute kidney injury and volume overload. Maintained on Lasix drip. Nonoliguric. Edema is slowly improving. 05/16/24 Patient evaluated today. She still complains of lower abdominal pain. Denies chest pain, shortness of breath. She has been off the lasix drip as her renal funnction had worsened. She had a urine output of 1600ml. Labs show sodium 137 potassium 3, bicarb 18.1, anion gap 16.9, BUN 37.7, creatinine 2.4. Objective - Vital Signs Vital signs: Vital Signs Temp 97.8 F 05/16/24 08:00 Pulse 81 05/16/24 09:29 Resp 17 05/16/24 08:00 BP 120/69 05/16/24 08:00 Pulse Ox 94 L 05/16/24 09:18 FiO2 Intake & Output 05/15/24 05/16/24 05/16/24 18:59 06:59 18:59 Intake Total 900 357 Output Total 800 Balance 100 357 Weight 128 kg Intake: Oral 900 357 Output: Urine 800 Other: Voiding Method Toilet Toilet # Bowel Movements 1 - Exam General: appears at stated age, obese Cardiovascular: S1 S2 reg, no murmur Lungs: CTA bilateral, no rhonchi, no rales, no accessory muscle use Abdominal: firm and distended, non-tender to palpataion Extremities: b/l pitting edema, redness bilaterally Neuro: Alert, Oriented - Labs CBC & Chem 7: 05/16/24 03:12 05/16/24 03:12 Labs: Abnormal Lab Results - Last 24 Hours (Table) 05/15/24 05/16/24 05/16/24 Range/Units 03:54 03:12 03:12 WBC 12.06 H (4.50-10.00) X 10*3/uL RBC 3.11 L (4.10-5.20) X 10*6/uL Hgb 9.8 L (12.0-15.0) g/dL Hct 29.5 L (37.2-46.3) % RDW 21.4 H (11.5-14.5) % Plt Count 105 L (140-440) X 10*3/uL MPV 12.3 H (9.5-12.2) FL Immature Gran # 0.16 H (0.00-0.04) X 10*3/uL Neutrophils # 10.38 H (1.80-7.70) X 10*3/uL Eosinophils # 0 L (0.04-0.35) X 10*3/uL PT (10.0-12.5) sec INR (<1.2) Potassium 3.1 L 3.0 L (3.5-5.5) mmol/L Carbon Dioxide 19.0 L 18.1 L (21.6-31.8) mmol/L Anion Gap 18.00 H 16.90 H (4.00-12.00) mmol/L BUN 29.3 H 37.7 H (9.0-27.0) mg/dL Creatinine 2.3 H 2.4 H (0.6-1.5) mg/dL Est GFR (CKD-EPI) 26 L 25 L (>=60) Glucose 149 H 151 H (70-110) mg/dL Calcium 8.5 L (8.7-10.3) mg/dL Alkaline Phosphatase 262 H 257 H (41-126) U/L Total Protein 5.3 L 5.0 L (6.2-8.2) g/dL Albumin 3.0 L 3.0 L (3.8-4.9) g/dL Albumin/Globulin Ratio 1.30 L 1.50 L (1.60-3.17) Ratio 05/16/24 Range/Units 08:47 WBC (4.50-10.00) X 10*3/uL RBC (4.10-5.20) X 10*6/uL Hgb (12.0-15.0) g/dL Hct (37.2-46.3) % RDW (11.5-14.5) % Plt Count (140-440) X 10*3/uL MPV (9.5-12.2) FL Immature Gran # (0.00-0.04) X 10*3/uL Neutrophils # (1.80-7.70) X 10*3/uL Eosinophils # (0.04-0.35) X 10*3/uL PT 13.8 H (10.0-12.5) sec INR 1.3 H (<1.2) Potassium (3.5-5.5) mmol/L Carbon Dioxide (21.6-31.8) mmol/L Anion Gap (4.00-12.00) mmol/L BUN (9.0-27.0) mg/dL Creatinine (0.6-1.5) mg/dL Est GFR (CKD-EPI) (>=60) Glucose (70-110) mg/dL Calcium (8.7-10.3) mg/dL Alkaline Phosphatase (41-126) U/L Total Protein (6.2-8.2) g/dL Albumin (3.8-4.9) g/dL Albumin/Globulin Ratio (1.60-3.17) Ratio Assessment and Plan Assessment: Acute kidney injury secondary to ATN secondary to hepatorenal syndrome. Creatinine today 2.4 today.. Hypervolemic hyponatremia, improved Hypokalemia and hypomagnesemia from diuresis. K today 3.0. Liver cirrhosis with ascites. Paracentesis done May 04, 2024 with 8.2 L drained. Underwent another paracentesis May 09, 2024 with 7 L drained. Plan: Renal funciton worsening, Lasix drip discontinued IV albumin for paracentesis >5L Maintain 1500 cc fluid restriction. Replace potassium 40meq once and 20meq daily Continue off of diuretics Add Sandostatin for possible hepatorenal syndrome. Repeat labs in a.m. Patient is seen and examined. Agree with resident's findings assessment and plan.
[2024-05-16 13:44] VITALS: BP 128/60; PULSE 56; TEMP 97.9
[2024-05-16] MEDS: POTASSIUM CHLORIDE ER 20 MEQ TAB.ER PO STA (13:50)
--- NOTE | 2024-05-16 19:18 | P.PN ---
Subjective Progress Note Date: 05/16/24 Principal diagnosis: Massive ascites s/p large-volume paracentesis with removal of 8.2 L Right lower lobe pneumonia Cellulitis of both upper extremity Hepatic encephalopathy Extensive lower extremity abdominal wall edema with weeping of his skin Hypoxic respiratory failure with oxygen at nighttime Sleep disordered breathing and sleep apnea May 16, 2024, patient seen eval examined during rounds labs reviewed medications reviewed, patient is on oral Lasix now off of IV continuous infusion, swelling in the lower extremity has been improved but is still +3 edema is present, diffuse inflammatory changes improved patient continue to get iglesia wrap. Labs today reviewed WBC count down to 12,000, hemoglobin hematocrit remained stable 9.8/29 platelet count of 105,000. Sodium was 137 potassium of 2 3, patient remains on potassium replacement protocol, LFTs reviewed as well, patient remains on bronchodilator with DuoNeb 4 times a day also on daptomycin IV she has been continued on DVT prophylaxis with Lovenox and hydrocodone and Dilaudid for pain control, Solu-Medrol is every 8 hourly which can be discontinued prior to discharge May 13, 2024, patient sitting upright in the chair breathing comfortably, denies any chest pain swelling significantly improved patient remains on Lasix 10 mg an hour I's and O's continue to be on negative side on a daily basis, major oxygen saturation 95% hemodynamic status stable, labs reviewed hemoglobin hematocrit remains unchanged, platelet count low but stable 113,000, sodium is 139 potassium 3.3 BUN/creatinine is 19.7/1.7 May 12, 2024, patient seen eval examined during rounds labs reviewed medication care plan discussed, patient has been resumed on Lasix drip 10 mg an hour, ultrasound of the abdomen performed no significant amount of ascites fluid noted patient continue anasarca. Labs from today reviewed white cell count of 5.7, hemoglobin hematocrit 8.8/27 platelet count of 113, sodium 130 potassium 3.9 BUN/creatinine is 18.6/1.6 LFTs alk phos elevated 169 cultures no growth so far May 09, 2024, patient seen eval examined during rounds labs reviewed medications reviewed Lasix drip has been stopped now, patient is getting small amount of albumin, remains on DuoNeb, on daptomycin and midodrine. Labs from today reviewed patient is composed awake and alert hemoglobin hematocrit is 9.5/29 which remains stable, white cell count 7.6, CBC otherwise within normal limit, sodium 132 potassium 3.4, BUN/creatinine is 18/1.5 glucose 96 patient is scheduled for large-volume paracentesis later on this afternoon by interventional radiology May 08, 2024, patient seen eval examined during rounds sitting upright in the chair, dressing is off diffuse erythema and edema up to thigh, With inflammatory changes in the lower extremity slightly improved from, abdomen is more distended and tense, discussed with RN will place a consultation for IR to do a large- volume paracentesis, patient remains on Lasix drip 5 mg an hour with adequate urine output, in addition patient has been IV cefazolin as well I's and O's reviewed and last 72 hours patient has been -3.6 L labs have been reviewed hemoglobin hematocrit remained stable with normal WBC count, platelet count also remained stable history not done today, medications reviewed May 07 2024, patient seen eval examined during rounds labs reviewed medications and care plan discussed, patient sitting upright in the chair is swelling in the lower extremity as well as the thigh and trunk stabilized however inflammatory changes are still there, patient remains on IV cefazolin tolerating very well, remains on Lasix drip which seems to be helping, patient remains on midodrine and continuation of home medications including sodium bicarb as well as rifaximin mean and antidepressant. Today reviewed CBC fairly stable, platelet count low but stable, sodium is 135 potassium 3.1 BUN/creatinine is 22 1.4 continue to improve due to improved renal perfusion, potassium is low being repleted May 06, 2024, patient seen evaluate examined during rounds labs reviewed medication care plan discussed, patient remains on Lasix drip 5 mg an hour, also on broad-spectrum IV antibiotic with Unasyn, acetic fluid culture no growth so far, Gram stain negative. Sodium is 133 potassium 2.8 BUN/creatinine is 26/1.51 continue to improve with diuresis. Patient remains on IV cefazolin with bronchodilators Dilaudid for pain control, lactulose and midodrine also getting rifaximin mean and white count for hepatic encephalopathy. May 05, 2024, patient seen evaluate examined labs reviewed medications and care plan discussed, overall respiratory status is stable on broad-spectrum antibiotic however patient has extensive edema throughout the body especially in the legs with weeping skin will discuss with nephrology about starting Lasix drip for diuresis, chest x-ray from today reviewed stable infiltrate no significant change Patient is a 44-year-old female with a past medical history significant for reflux cirrhosis of the liver nonalcoholic recently did have admission to the hospital for hypo natremia she was also noted to have signifi cant left lower extremity cellulitis and did have a UTI patient subsequently has been discharged home has been brought back to the hospital concerning for increasing swelling to bilateral lower extremity no also involving the right leg and also complaining of increasing shortness of breath patient symptom has been getting worse for the last 2 to 3 days patient denies high-grade fever or any chills and no fever have been recorded on presentation to the hospital patient was tachycardic on admission subsequently resolved she was not hypotensive or hypoxic and no need for supplemental oxygen patient did have white count of 7.3 BUN and creatinine has been mildly elevated patient did have a chest x-ray airspace opacity projecting over the spine correlate for pneumonia patient did have abdominal pelvis CT ascites extensive swelling to the subcutaneous tissue right lower lobe infiltrate correlate for pneumonia splenomegaly patient was started on Rocephin and Zithromax has been admitted to hospital, she has a large-volume paracentesis over 8.2 L of fluid removed. Her admitted chest x-ray significant for airspace opacities suggestive of pneumonia. CT scan of the abdomen pelvis extensive subcutaneous edema as well as ascites, Objective - Vital Signs Vital signs: Vital Signs Temp 97.9 F 05/16/24 13:44 Pulse 56 L 05/16/24 13:44 Resp 17 05/16/24 13:44 BP 128/60 05/16/24 13:44 Pulse Ox 94 L 05/16/24 13:44 FiO2 Intake & Output 05/16/24 05/16/24 05/17/24 06:59 18:59 06:59 Intake Total 357 Balance 357 Weight 128 kg Intake: Oral 357 Other: Voiding Method Toilet - Exam - Constitutional General appearance: morbidly obese - EENT Eyes: EOMI, PERRLA Ears: bilateral: normal - Neck Carotids: bilateral: upstroke normal Thyroid: negative: normal size - Respiratory Respiratory: bilateral: diminished - Cardiovascular Rhythm: regular Heart sounds: normal: S1, S2 - Gastrointestinal General gastrointestinal: distended - Integumentary Extensive edema of lower extremity and generalized body Integumentary: decreased turgor - Neurologic Neurologic: CNII-XII intact - Musculoskeletal Musculoskeletal: gait normal, generalized weakness, strength equal bilaterally - Psychiatric Psychiatric: A&O x's 3, appropriate affect, intact judgment & insight - Labs CBC & Chem 7: 05/16/24 03:12 05/16/24 03:12 Labs: Abnormal Lab Results - Last 24 Hours (Table) 05/16/24 05/16/24 05/16/24 Range/Units 03:12 03:12 08:47 WBC 12.06 H (4.50-10.00) X 10*3/uL RBC 3.11 L (4.10-5.20) X 10*6/uL Hgb 9.8 L (12.0-15.0) g/dL Hct 29.5 L (37.2-46.3) % RDW 21.4 H (11.5-14.5) % Plt Count 105 L (140-440) X 10*3/uL MPV 12.3 H (9.5-12.2) FL Immature Gran # 0.16 H (0.00-0.04) X 10*3/uL Neutrophils # 10.38 H (1.80-7.70) X 10*3/uL Eosinophils # 0 L (0.04-0.35) X 10*3/uL PT 13.8 H (10.0-12.5) sec INR 1.3 H (<1.2) Potassium 3.0 L (3.5-5.5) mmol/L Carbon Dioxide 18.1 L (21.6-31.8) mmol/L Anion Gap 16.90 H (4.00-12.00) mmol/L BUN 37.7 H (9.0-27.0) mg/dL Creatinine 2.4 H (0.6-1.5) mg/dL Est GFR (CKD-EPI) 25 L (>=60) Glucose 151 H (70-110) mg/dL Calcium 8.5 L (8.7-10.3) mg/dL Alkaline Phosphatase 257 H (41-126) U/L Total Protein 5.0 L (6.2-8.2) g/dL Albumin 3.0 L (3.8-4.9) g/dL Albumin/Globulin Ratio 1.50 L (1.60-3.17) Ratio Assessment and Plan Assessment: Generalized anasarca on oral furosemide of continuous drip 10 mg an hour tolerating well, Massive ascites s/p large-volume paracentesis with removal of 8.2 L, patient is status post repeat ultrasound of the abdomen no significant fluid seen, will be reassessed later , On broad-spectrum antibiotics Right lower lobe pneumonia Severe hypokalemia, on replacement slowly improve Cellulitis of both upper extremity Hepatic encephalopathy Extensive lower extremity abdominal wall edema with weeping of his skin Hypoxic respiratory failure with oxygen at nighttime Sleep disordered breathing and sleep apnea it Plan: Patient continued on potassium replacement protocol monitor close Continue gentle diuresis with oral Lasix, every Continue rifaximin and lactulose for hepatic encephalopathy Off of the antibiotics, repeat x-ray no pneumonia seen however continued on daptomycin per infectious disease recommendation IV Solu-Medrol can be discontinued Continue supplemental oxygen at nighttime if respiratory distress noted consider using BiPAP machine sleep study if she is agreeable as outpatient basis
[2024-05-16] MEDS ORDERED: OCTREOTIDE 100 MCG/ML INJ SQ SCH (20:00)
[2024-05-16] MEDS ORDERED: POTASSIUM CHLORIDE ER 20 MEQ TAB.ER PO SCH (21:00)
[2024-05-17] MEDS ORDERED: ENOXAPARIN 30 MG/0.3 ML SYRINGE SQ SCH (09:00)
[2024-05-17] MEDS ORDERED: DAPTOmycin 500 MG in SODIUM CHLORIDE 0.9% 50 ML IVPB SCH (09:00)
--- NOTE | 2024-05-22 13:38 | P.PN ---
Subjective Progress Note Date: 05/16/24 Principal diagnosis: Reason for follow-up is lower extremity cellulitis Patient is a 44-year-old female with a past medical history significant for reflux cirrhosis of the liver nonalcoholic has been brought to the hospital concerning for increasing swelling to lower extremity as well as abdominal noticed to have redness to the left leg concerning for cellulitis did have abnormal CT chest x-ray concerning for possible right lower lobe pneumonia. On today's evaluation that is 05/16/2024, the patient continues to be afebrile, the patient is on room air and breathing comfortably, the Pt denies having any chest pain or cough, the patient denies having any abdominal pain no vomiting or any diarrhea has been reported by the nursing staff pain to the lower extremity has decreased in intensity. Patient did have white count 12.06, creatinine is 2.4 Objective - Vital Signs Vital signs: Vital Signs Temp 97.8 F 05/16/24 08:00 Pulse 76 05/16/24 12:36 Resp 17 05/16/24 08:00 BP 120/69 05/16/24 08:00 Pulse Ox 94 L 05/16/24 09:18 FiO2 Intake & Output 05/15/24 05/16/24 05/16/24 18:59 06:59 18:59 Intake Total 900 357 Output Total 800 Balance 100 357 Weight 128 kg Intake: Oral 900 357 Output: Urine 800 Other: Voiding Method Toilet Toilet # Bowel Movements 1 - Exam GENERAL DESCRIPTION: Middle-age female lying in bed in no distress RESPIRATORY SYSTEM: Unlabored breathing , decreased breath sounds at bases HEART: S1 S2 regular rate and rhythm , ABDOMEN: Soft , no tenderness EXTREMITIES: Bilateral legs are currently wrapped in Theo wrap - Labs CBC & Chem 7: 05/16/24 03:12 05/16/24 03:12 Labs: Abnormal Lab Results - Last 24 Hours (Table) 05/16/24 05/16/24 05/16/24 Range/Units 03:12 03:12 08:47 WBC 12.06 H (4.50-10.00) X 10*3/uL RBC 3.11 L (4.10-5.20) X 10*6/uL Hgb 9.8 L (12.0-15.0) g/dL Hct 29.5 L (37.2-46.3) % RDW 21.4 H (11.5-14.5) % Plt Count 105 L (140-440) X 10*3/uL MPV 12.3 H (9.5-12.2) FL Immature Gran # 0.16 H (0.00-0.04) X 10*3/uL Neutrophils # 10.38 H (1.80-7.70) X 10*3/uL Eosinophils # 0 L (0.04-0.35) X 10*3/uL PT 13.8 H (10.0-12.5) sec INR 1.3 H (<1.2) Potassium 3.0 L (3.5-5.5) mmol/L Carbon Dioxide 18.1 L (21.6-31.8) mmol/L Anion Gap 16.90 H (4.00-12.00) mmol/L BUN 37.7 H (9.0-27.0) mg/dL Creatinine 2.4 H (0.6-1.5) mg/dL Est GFR (CKD-EPI) 25 L (>=60) Glucose 151 H (70-110) mg/dL Calcium 8.5 L (8.7-10.3) mg/dL Alkaline Phosphatase 257 H (41-126) U/L Total Protein 5.0 L (6.2-8.2) g/dL Albumin 3.0 L (3.8-4.9) g/dL Albumin/Globulin Ratio 1.50 L (1.60-3.17) Ratio Assessment and Plan (1) Bilateral leg edema Status: Acute Code(s): R60.0 - LOCALIZED EDEMA SNOMED Code(s): 775305160 (2) Congestive heart failure Status: Acute Code(s): I50.9 - HEART FAILURE, UNSPECIFIED SNOMED Code(s): 22048934 (3) Penicillin allergy Status: Acute Code(s): Z88.0 - ALLERGY STATUS TO PENICILLIN SNOMED Code(s): 29864595 (4) Cellulitis of right leg Status: Acute Code(s): L03.115 - CELLULITIS OF RIGHT LOWER LIMB SNOMED Code(s): 81467063658547307 Plan: 1patient presented to hospital with increasing abdominal as well as lower extremity swelling more likely related to excessive fluid examination secondary to her cirrhosis of the liver patient did have right lower extremity which is swollen and red slightly warm to touch concerning for cellulitis. 2patient did have abnormal CT as well as chest x-ray suspicious for pneumonia however the patient did not have significant respiratory symptoms to be suspicious for such. 3penicillin allergy that will limit the number of antibiotics safe to use. 4patient right lower extremity for CT negative for any abscess, 5leukocytosis more likely related to steroids and are trending down, patient to continue with daptomycin while inpatient will transition to oral antibiotics on discharge Dictation was produced using [employer] dictation software. please excuse any grammatical, word or spelling errors. Time with Patient: Less than 30
--- NOTE | 2024-05-31 07:58 | CDI ---
Documentation Clarification Form Date: 05/31/2024 07:26:28 AM From: Shauna Mendoza Phone: Admit Date: 05/03/2024 06:26:00 PM Patient Name: Joanna Bagley Visit Number: [id number] Discharge Date: 05/16/2024 08:45:00 PM ATTENTION: The Clinical Documentation Specialists (CDI) and [facility] Coding Staff appreciate your assistance in clarifying documentation. Please respond to the clarification below the line at the bottom and electronically sign. The CDI & [facility] Coding staff will review the response and follow-up if needed. Please note: Queries are made part of the Legal Health Record. If you have any questions, please contact the author of this message via ITS. Doctor/Provider: Mari Kaba Conflicting documentation has been found in the medical record. As attending physician, please provide clarification. Morbid Obesity: 05/04 Pulmonology consult, 05/05 thru 05/16 Pulmonology PNs - General appearance: morbidly obese 05/14 and 05/15 General surgery PNs - ASSESSMENT: Morbid obesity due to excess calories, BMI 48.2 Severe Protein-calorie malnutrition: 05/04 Surgical Consult, 05/05 thru 05/16 Surgical PNs - ASSESSMENT: 3.Severe protein calorie malnutrition History/Risk Factors: Alcoholic cirrhosis, Hepatorenal syndrome, COPD, Chronic diastolic CHF, CKD, Bipolar, JOHANNA, Smoker, GERD, Colostomy status Clinical Indicators: Patient admitted for severe ascites and leg edema and also diagnosed with Pneumonia. Patient had Paracentesis x 2 with 8200 cc fluid drawn and then 7.0 liters fluid drawn. 05/03: height - 5ft 4in 122.47 kg, 05/10: weight - 122.47kg, BMI - 46.3, 05/15: weight - 128kg Treatment: IV Lasix 10mg/hr Please clarify which diagnosis is most appropriate: [ ] Morbid Obesity [ ] Severe Protein-calorie malnutrition [ x ] Other (please specify) _where in the chart it says that i am the attending physican , do you review the chart before sending quarries ? / [ ] Unable to determine MTDD
--- NOTE | 2024-06-07 09:45 | CDI ---
Documentation Clarification Form Date: 06/07/2024 09:40:36 AM From: Shauna Mendoza Phone: Admit Date: 05/03/2024 06:26:00 PM Patient Name: Joanna Bagley Visit Number: [id number] Discharge Date: 05/16/2024 08:45:00 PM ATTENTION: The Clinical Documentation Specialists (CDI) and [facility] Coding Staff appreciate your assistance in clarifying documentation. Please respond to the clarification below the line at the bottom and electronically sign. The CDI & [facility] Coding staff will review the response and follow-up if needed. Please note: Queries are made part of the Legal Health Record. If you have any questions, please contact the author of this message via ITS. Doctor/Provider: Luis Alfredo Shields Conflicting documentation has been found in the medical record. As attending physician, please provide clarification. Morbid Obesity: 05/04 Pulmonology consult, 05/05 thru 05/16 Pulmonology PNs - General appearance: morbidly obese 05/14 and 05/15 General surgery PNs - ASSESSMENT: Morbid obesity due to excess calories, BMI 48.2 Severe Protein-calorie malnutrition: 05/04 Surgical Consult, 05/05 thru 05/16 Surgical PNs - ASSESSMENT: 3.Severe protein calorie malnutrition History/Risk Factors: Alcoholic cirrhosis, Hepatorenal syndrome, COPD, Chronic diastolic CHF, CKD, Bipolar, JOHANNA, Smoker, GERD, Colostomy status Clinical Indicators: Patient admitted for severe ascites and leg edema and also diagnosed with Pneumonia.Patient had Paracentesis x 2 with 8200 cc fluid drawn and then 7.0 liters fluid drawn. 05/03: height - 5ft 4in 122.47 kg, 05/10: weight - 122.47kg, BMI - 46.3, 05/15: weight - 128kg Treatment: IV Lasix 10mg/hr Please clarify which diagnosis is most appropriate: [ ] Morbid Obesity [ ] Severe Protein-calorie malnutrition [ ] Other (please specify) [ ] Unable to determine MTDD
--- NOTE | 2024-06-09 01:30 | PN ---
PROGRESS NOTE Morbid obesity. MMODL / IJN: [id number] /
== END 2024-05-16 20:45 | disposition home or self-care (01) | DRG 280 ==
LOC: EC 13:17 → 4SSUR 18:26
PROVIDERS: ADMIT Family Medicine; ATTEND Family Medicine
PROC: 0W9G3ZX Drainage of Peritoneal Cavity, Percutaneous Approach, Diagnostic (ICD-10-PCS; principal; 2024-05-04)
PROC: 0W9G3ZZ Drainage of Peritoneal Cavity, Percutaneous Approach (ICD-10-PCS; 2024-05-09)
DX: K70.31 Alcoholic cirrhosis of liver with ascites (principal); K76.82 Hepatic encephalopathy; J18.9 Pneumonia, unspecified organism; N17.0 Acute kidney failure with tubular necrosis; J96.91 Respiratory failure, unspecified with hypoxia; K76.7 Hepatorenal syndrome; E87.20 Acidosis, unspecified; L97.519 Non-pressure chronic ulcer of other part of right foot with unspecified severity; J44.0 Chronic obstructive pulmonary disease with (acute) lower respiratory infection; L03.115 Cellulitis of right lower limb; L03.116 Cellulitis of left lower limb; E87.1 Hypo-osmolality and hyponatremia; I50.32 Chronic diastolic (congestive) heart failure; E66.01 Morbid (severe) obesity due to excess calories; N18.9 Chronic kidney disease, unspecified; F31.9 Bipolar disorder, unspecified; N39.0 Urinary tract infection, site not specified; I95.1 Orthostatic hypotension; F10.11 Alcohol abuse, in remission; Z68.42 Body mass index [BMI] 45.0-49.9, adult; Z93.3 Colostomy status; E83.42 Hypomagnesemia; E87.6 Hypokalemia; L03.113 Cellulitis of right upper limb; L03.114 Cellulitis of left upper limb; F17.200 Nicotine dependence, unspecified, uncomplicated; G47.33 Obstructive sleep apnea (adult) (pediatric); F41.9 Anxiety disorder, unspecified; K21.9 Gastro-esophageal reflux disease without esophagitis; Z79.51 Long term (current) use of inhaled steroids; Z79.84 Long term (current) use of oral hypoglycemic drugs; Z79.899 Other long term (current) drug therapy; Z88.0 Allergy status to penicillin; Z87.11 Personal history of peptic ulcer disease; Z90.49 Acquired absence of other specified parts of digestive tract
CPT/HCPCS: 36410; 36415; 49083; 71045; 71046; 74176; 76705; 76937; 80048; 80053; 82140; 83605; 83690; 83735; 83880; 84100; 84132; 84145; 84157; 84484; 85025; 85610; 85730; 87040; 87070; 87075; 87205; 88108; 88305; 89050; 93005; 94640; 94760; 96361; 96365; 96366; 96367; 96368; 96375; 96376; 99285

== ENCOUNTER 2024-05-24 14:48 | Inpatient (IN) | payer OTHER ==
--- NOTE | 2024-05-24 16:13 | ED ---
Abdominal Pain HPI - General Source: patient, RN notes reviewed Mode of arrival: ambulatory Limitations: no limitations <Sugar Leija - Last Filed: 05/24/24 16:12> - General Source: RN notes reviewed, old records reviewed Mode of arrival: ambulatory Limitations: no limitations - History of Present Illness MD Complaint: abdominal pain -: week(s) Location: diffuse Severity: severe Severity scale (1-10): 10 Quality: cramping Consistency: constant Improves With: nothing Worsens With: nothing <Wilberto Cardenas - Last Filed: 05/31/24 20:30> - General Chief Complaint: Abdominal Pain Stated Complaint: Abd pain Time Seen by Provider: 05/24/24 16:12 - History of Present Illness Initial Comments: Quick note: 44-year-old female presented to the ER with a chief complaint of abdominal pain and distention. Patient was discharged last Thursday. History of liver failure and underwent 2 paracentesis while inpatient. She states fluid is building up and causing pain, shortness of breath and peripheral edema. Denies any chest pain or fevers. She also reports a wound to her right foot. (Sugar Leija) This is a 44-year-old female here for elective paracentesis (Wilberto Cardenas) - Related Data Home Medications Medication Instructions Recorded Confirmed Pantoprazole [Protonix] 40 mg PO DAILY 03/20/23 05/24/24 QUEtiapine [SEROquel] 100 mg PO HS 03/20/23 05/24/24 Gabapentin [Neurontin] 300 mg PO TID 04/16/24 05/24/24 Ipratropium-Albuterol Nebulize 3 ml INHALATION RT-TID 04/16/24 05/24/24 [Duoneb 0.5 mg-3 mg/3 ml Soln] Tiotropium 2.5 Mcg/Puff [Spiriva 1 puff INHALATION RT-DAILY 04/16/24 05/24/24 Respimat 2.5 Mcg] Midodrine HCl [ProAmatine] 10 mg PO QID@06,10,14,18 05/03/24 05/24/24 Doxycycline Monohydrate 100 mg PO DIRECTED 05/24/24 05/24/24 Previous Rx's Medication Instructions Recorded Budesonide-Formot 160-4.5 Mcg 2 puff INHALATION RT-BID 30 Days 02/24/24 [Symbicort 160-4.5 Mcg Inhaler] #1 each Dapagliflozin Propanediol [Farxiga] 5 mg PO DAILY 90 Days #90 tab 04/08/24 Sodium Bicarbonate Tab 650 mg PO DAILY 90 Days #90 tab 04/08/24 oxyCODONE HCL [OxyIR] 5 mg PO Q6HR PRN 3 Days #10 tab 04/28/24 Lactulose [Cephulac] 30 gm PO TID 30 Days #90 ml 05/16/24 Magnesium Oxide [Mag-Ox] 400 mg PO DAILY 30 Days #30 tab 05/16/24 Potassium Chloride ER [K-Dur 20] 20 meq PO BID 30 Days #60 tab 05/16/24 Allergies Allergy/AdvReac Type Severity Reaction Status Date / Time Penicillins Allergy Anaphylaxis Verified 05/24/24 19:58 Review of Systems ROS Other: All systems not noted in ROS Statement are negative. <Sugar Leija - Last Filed: 05/24/24 16:12> ROS Other: All systems not noted in ROS Statement are negative. <Wilberto Cardenas - Last Filed: 05/31/24 20:30> ROS Statement: Those systems with pertinent positive or pertinent negative responses have been documented in the HPI. Past Medical History Past Medical History: GERD/Reflux, Liver Disease Additional Past Medical History / Comment(s): retains fluid,anemia,cirrohis of liver non alcoholic, occ bloody stool, ulcer, bipolar, low sodium levels History of Any Multi-Drug Resistant Organisms: VRE Date of last positivie culture/infection: 04/20/24 MDRO Source:: urine Past Surgical History: Cholecystectomy, EPS Additional Past Surgical History / Comment(s): has had 4 scopes, paracentesis unable to get any fluid out at the time., paracentesis Past Anesthesia/Blood Transfusion Reactions: No Reported Reaction Additional Past Anesthesia/Blood Transfusion Reaction / Comment(s): 3 units of blood transfused in around february 03. Past Psychological History: Anxiety, Bipolar Smoking Status: Current some day smoker Past Alcohol Use History: Abuse Past Drug Use History: None Reported <Sugar Leija - Last Filed: 05/24/24 16:12> General Exam Limitations: no limitations <Sugar Leija - Last Filed: 05/24/24 16:12> General appearance: alert, in no apparent distress Head exam: Present: atraumatic, normocephalic, normal inspection Eye exam: Present: normal appearance, PERRL, EOMI. Absent: scleral icterus, conjunctival injection, periorbital swelling ENT exam: Present: normal exam, mucous membranes moist Neck exam: Present: normal inspection. Absent: tenderness, meningismus, lymphadenopathy Respiratory exam: Present: normal lung sounds bilaterally. Absent: respiratory distress, wheezes, rales, rhonchi, stridor Cardiovascular Exam: Present: regular rate, normal rhythm, normal heart sounds. Absent: systolic murmur, diastolic murmur, rubs, gallop, clicks GI/Abdominal exam: Present: soft, normal bowel sounds. Absent: distended, tenderness, guarding, rebound, rigid Extremities exam: Present: normal inspection, full ROM, normal capillary refill. Absent: tenderness, pedal edema, joint swelling, calf tenderness Back exam: Present: normal inspection Neurological exam: Present: alert, oriented X3, CN II-XII intact Psychiatric exam: Present: normal affect, normal mood Skin exam: Present: warm, dry, intact, normal color. Absent: rash <Wilberto Cardenas - Last Filed: 05/31/24 20:30> - General Exam Comments Initial Comments: Visual Physical Exam Vital signs reviewed General: Ill-appearing, nontoxic, no acute distress, distended abdomen Head: Normocephalic, atraumatic Eyes: PERRLA, EOMI ENT: Airway patent Chest: Nonlabored breathing Skin: No visual rash, normal skin tone Neuro: Alert and oriented 3 Musculoskeletal: No gross abnormalities (Sugar Leija) Course <Wilberto Cardenas - Last Filed: 05/31/24 20:30> Vital Signs 05/24/24 05/24/24 05/24/24 15:15 19:28 21:21 Temperature 98.3 F 97.9 F 98.1 F Pulse Rate 119 H 123 H 126 H Respiratory 20 19 20 Rate Blood Pressure 113/65 116/67 101/69 O2 Sat by Pulse 93 L 97 96 Oximetry - Reevaluation(s) Reevaluation #1: 05/24/24 19:27 Medical records reviewed (Wilberto Cardenas) Reevaluation #2: 05/24/24 19:28 Patient symptoms unchanged (Wilberto Cardenas) Reevaluation #3: 05/24/24 19:28 Patient informed of results and questions answered (Wilberto Cardenas) Reevaluation #4: Was pt. sent in by a medical professional or institution ([facility], [facility], urgent care, hospital, or shelter...) When possible be specific @ -no Did you speak to anyone other than the patient for history (EMS, parent, family, police, friend...)? What history was obtained from this source @ -no Did you review nursing and triage notes (agree or disagree)? Why? @ -agree Are old charts reviewed (outside hosp., previous admission, EMS record, old EKG, old radiological studies, urgent care reports/EKG's, shelter records)? Repo rt findings @ -yes Differential Diagnosis (chest pain, altered mental status, abdominal pain women, abdominal pain men, vaginal bleeding, weakness, fever, dyspnea, syncope, headache, dizziness, GI bleed, back pain, seizure, CVA, palpatations, mental health, musculoskeletal)? @ -prior EKG interpreted by me (3pts min.). @ -no X-rays interpreted by me (1pt min.). @ -yes negative for acute disease CT interpreted by me (1pt min.). @ -no U/S interpreted by me (1pt. min.). @ -no What testing was considered but not performed or refused? (CT, X-rays, U/S, labs)? Why? @ -none What meds were considered but not given or refused? Why? @ -none Did you discuss the management of the patient with other professionals (professionals i.e. [facility], [facility], lab, RT, psych nurse, manager social, supervisor enrobing, teacher, contract officer, director of casework services)? Give summary @ -no Was smoking cessation discussed for >3mins.? @ -no Was critical care preformed (if so, how long)? @ -no Were there social determinants of health that impacted care today? How? (Homelessness, low income, unemployed, alcoholism, drug addiction, transportation, low edu. Level, literacy, decrease access to med. care, long term, rehab)? @ -none Was there de-escalation of care discussed even if they declined (Discuss DNR or withdrawal of care, Hospice)? DNR status @ -no What co-morbidities impacted this encounter? (DM, HTN, Smoking, COPD, CAD, Cancer, CVA, ARF, Chemo, Hep., AIDS, mental health diagnosis, sleep apnea, morbid obesity)? @ -none Was patient admitted / discharged? Hospital course, mention meds given and route, prescriptions, significant lab abnormalities, going to OR and other pertinent info. @ - 44 female will be admitted for severe abdominal pain need for paracentesis Admitted Undiagnosed new problem with uncertain prognosis? @ -no Drug Therapy requiring intensive monitoring for toxicity (Heparin, Nitro, Insulin, Cardizem)? @ -no Were any procedures done? @ -no Diagnosis/symptom? @ -Significant ascites Acute, or Chronic, or Acute on Chronic? @ -Acute Uncomplicated (without systemic symptoms) or Complicated (systemic symptoms)? @ -Complicated Side effects of treatment? @ -no Exacerbation, Progression, or Severe Exacerbation? @ -exacerbation Poses a threat to life or bodily function? How? (Chest pain, USA, MA, pneumonia, PE, COPD, DKA, ARF, appy, cholecystitis, CVA, Diverticulitis, Homicidal, Suicidal, threat to staff... and all critical care pts) @ -yes shortness of breath abdominal pain (Wilberto Cardenas) Reevaluation #5: Differential Abdominal Pain Women: Appendicitis, Cholecystitis, diverticulosis, ischemic bowel, pancreatitis, hepatitis, UTI, gastroenteritis, AAA, incarcerated hernia, bowel obstruction, constipation, inflammatory bowel, hepatitis, peptic ulcer disease, splenic infarction, perforated viscus, vulvitis, ovarian torsion, PID, kidney stone, placenta abruption, this is not meant to be an all-inclusive list (Wilberto Cardenas) - Consultations Consultation #1: Spoke with Dr. Rodriguez who agrees to admit this patient (Wilberto Cardenas) Medical Decision Making <Sugar Leija - Last Filed: 05/24/24 16:12> - Lab Data Result diagrams: 05/31/24 05:33 05/31/24 05:33 - Radiology Data Radiology results: report reviewed (X-ray chest and KUB negative for acute disease), image reviewed <Wilberto Cardenas - Last Filed: 05/31/24 20:30> - Medical Decision Making I performed the quick note portion of this chart. Electronically signed by Sugar Leija PA-C (Sugar Leija) 44 female will be admitted for severe abdominal pain need for paracentesis (Wilberto Cardenas) - Lab Data Lab Results 05/24/24 05/24/24 05/24/24 Range/Units 19:05 19:05 19:05 WBC 20.2 H (3.8-10.6) k/uL RBC 3.17 L (3.80-5.40) m/uL Hgb 10.4 L (11.4-16.0) gm/dL Hct 31.9 L (34.0-46.0) % MCV 100.6 H (80.0-100.0) fL MCH 32.8 (25.0-35.0) pg MCHC 32.6 (31.0-37.0) g/dL RDW 21.2 H (11.5-15.5) % Plt Count 112 L (150-450) k/uL MPV 9.8 Neutrophils % 82 % Lymphocytes % 10 % Monocytes % 4 % Eosinophils % 2 % Basophils % 0 % Neutrophils # 16.6 H (1.3-7.7) k/uL Lymphocytes # 1.9 (1.0-4.8) k/uL Monocytes # 0.9 (0-1.0) k/uL Eosinophils # 0.3 (0-0.7) k/uL Basophils # 0.0 (0-0.2) k/uL Hypochromasia Slight Anisocytosis Moderate Macrocytosis Moderate PT 15.9 H (10.0-12.5) sec INR 1.5 H (<1.2) APTT 34.9 H (22.0-30.0) sec Sodium 128 L (137-145) mmol/L Potassium 3.5 (3.5-5.1) mmol/L Chloride 96 L (98-107) mmol/L Carbon Dioxide 26 (22-30) mmol/L Anion Gap 6 mmol/L BUN 25 H (7-17) mg/dL Creatinine 1.16 H (0.52-1.04) mg/dL Est GFR (CKD-EPI)AfAm 67 (>60 ml/min/1.73 sqM) Est GFR (CKD-EPI)NonAf 58 (>60 ml/min/1.73 sqM) Glucose 120 H (74-99) mg/dL Calcium 7.7 L (8.4-10.2) mg/dL Total Bilirubin 3.5 H (0.2-1.3) mg/dL AST 46 H (14-36) U/L ALT 18 (4-34) U/L Alkaline Phosphatase 218 H (38-126) U/L NT-Pro-B Natriuret Pep 1080 pg/mL Total Protein 5.2 L (6.3-8.2) g/dL Albumin 2.5 L (3.5-5.0) g/dL Amylase <30 L (30-110) U/L Lipase 127 (23-300) U/L Disposition <Sugar Leija - Last Filed: 05/24/24 16:12> Is patient prescribed a controlled substance at d/c from ED?: No Time of Disposition: 19:10 <Wilberto Cardenas - Last Filed: 05/31/24 20:30> Clinical Impression: Abdominal pain, Liver cirrhosis, Alcoholic cirrhosis of liver with ascites Disposition: ADMITTED IP TO THIS HOSP Condition: Fair
--- NOTE | 2024-05-24 16:25 | XR ---
EXAMINATION TYPE: XR KUB DATE OF EXAM: 05/24/2024 3:49 PM CLINICAL INDICATION: Female, 44 years old with history of abdominal pain; [facility] COMPARISON: None. TECHNIQUE: One radiographic view of the abdomen was obtained. FINDINGS: Underpenetrated film. The bowel gas pattern is nonspecific without dilated loops of small o r large bowel. . Fecal material and gas are demonstrated throughout the colon and rectum. There is no evidence for organomegaly or pneumoperitoneum. The osseous structures are intact. No ab normal calcifications are present. IMPRESSION: Limited evaluation due to underpenetration. Nonspecific bowel gas pattern without radiographic eviden ce for acute process. [facility], , 05/24/2024 4:23 PM
--- NOTE | 2024-05-24 17:35 | XR ---
EXAMINATION TYPE: XR chest 2V DATE OF EXAM: 05/24/2024 5:16 PM CLINICAL INDICATION: Female, 44 years old with history of peripheral edema; [facility] COMPARISON: Chest radiographs from 05/05/2024. TECHNIQUE: XR chest 2V Frontal view of the chest. FINDINGS: Lungs/Pleura: There is no evidence of pleural effusion, focal consolidation, or pneumothorax. Pulmonary vascularity: Unremarkable. Heart/mediastinum: Cardiomediastinal silhouette is unremarkable. Musculoskeletal: No acute osseous pathology. IMPRESSION: No acute cardiopulmonary disease/process. [facility], , 05/24/2024 5:33 PM
[2024-05-24] MEDS ORDERED: ONDANSETRON 4 MG/2 ML VIAL IVP PRN (19:26)
[2024-05-24] MEDS ORDERED: NALOXONE 0.4 MG/ML 1 ML VIAL IV PRN (19:26)
[2024-05-24 19:27] LABS: Anisocytosis Moderate; Basophils % (A) 0 %; Eosinophils # (A) 0.3 k/uL (0-0.7); Eosinophils % (A) 2 %; HCT 31.9 % (34.0-46.0); HGB 10.4 gm/dL (11.4-16.0); Hypochromasia Slight; Lymphocytes # (A) 1.9 k/uL (1.0-4.8); Lymphocytes % (A) 10 %; MCH 32.8 pg (25.0-35.0); MCHC 32.6 g/dL (31.0-37.0); MCV 100.6 fL (80.0-100.0); Macrocytosis Moderate; Mean Platelet Volume 9.8; Monocytes # (A) 0.9 k/uL (0-1.0); Monocytes % (A) 4 %; Neutrophils # (A) 16.6 k/uL (1.3-7.7); Neutrophils % (A) 82 %; Platelet Count 112 k/uL (150-450); RBC 3.17 m/uL (3.80-5.40); RDW 21.2 % (11.5-15.5); WBC 20.2 k/uL (3.8-10.6)
[2024-05-24 19:31] LABS: ALT 18 U/L (4-34); African American GFR (CKD) 67 (>60 ml/min/1.73 sqM); Anion Gap 6 mmol/L; Blood Urea Nitrogen 25 mg/dL (7-17); Calcium 7.7 mg/dL (8.4-10.2); Carbon Dioxide 26 mmol/L (22-30); Chloride 96 mmol/L (98-107); Glucose 120 mg/dL (74-99); Lipase 127 U/L (23-300); Non-African American GFR(CKD) 58 (>60 ml/min/1.73 sqM); Sodium 128 mmol/L (137-145); Total Bilirubin 3.5 mg/dL (0.2-1.3)
[2024-05-24 19:38] LABS: INR 1.5 (<1.2); Partial Thromboplastin Time 34.9 sec (22.0-30.0); Prothrombin Time 15.9 sec (10.0-12.5)
[2024-05-24 19:39] LABS: NT-Pro-B-Type Natriuretic Pept 1080 pg/mL
[2024-05-24 19:41] LABS: AST 46 U/L (14-36); Alkaline Phosphatase 218 U/L (38-126); Potassium 3.5 mmol/L (3.5-5.1); Total Protein 5.2 g/dL (6.3-8.2)
[2024-05-24 19:42] LABS: Albumin 2.5 g/dL (3.5-5.0); Amylase <30 U/L (30-110)
[2024-05-24] MEDS: SODIUM CHLORIDE 0.9% 1,000 ML IV SCH (20:55)
[2024-05-24] MEDS: MORPHINE SULFATE 4 MG/ML SYRINGE IV PRN (22:55)
[2024-05-25] MEDS: RIFAXIMIN 550 MG TABLET PO SCH (00:17)
[2024-05-25] MEDS: METOPROLOL TARTRATE 12.5 MG TAB PO SCH (04:32)
[2024-05-25] MEDS: MIDODRINE 5 MG TAB PO SCH (06:31)
[2024-05-25] MEDS: IPRATROPIUM-ALBUTEROL 3 ML NEB INHALATION SCH (07:55)
[2024-05-25] MEDS: SYMBICORT 160-4.5 MCG INHALER INHALATION SCH (07:55)
[2024-05-25] MEDS ORDERED: NON FORMULARY DRUG (Tiotropium 2.5 Mcg/Puff 10 PUFF Each) INHALATION SCH (08:00)
[2024-05-25] MEDS: LACTULOSE 20 GM/30 ML CUP PO SCH ×2 (09:28→13:26)
[2024-05-25] MEDS: SODIUM BICARBONATE TAB 650 MG TAB PO SCH (09:29)
[2024-05-25] MEDS: POTASSIUM CHLORIDE ER 20 MEQ TAB.ER PO SCH (09:29)
[2024-05-25] MEDS: PANTOPRAZOLE 40 MG TABLET PO SCH (09:29)
[2024-05-25] MEDS: DAPAGLIFLOZIN PROPANEDIOL 5 MG TABLET PO SCH (09:29)
[2024-05-25] MEDS: MAGNESIUM OXIDE 400 MG TAB PO SCH (09:29)
[2024-05-25] MEDS: GABAPENTIN 300 MG CAP PO SCH (09:30)
[2024-05-25] MEDS: PANTOPRAZOLE 40 MG/10 ML VIAL IV SCH (09:30)
--- NOTE | 2024-05-25 11:47 | HP ---
HISTORY AND PHYSICAL HISTORY OF PRESENT ILLNESS: A 44-year-old white female, who is admitted for paracentesis for acute on chronic cirrhosis, elevated bilirubin at 2.5, severe cirrhosis of the abdomen and legs, acute on chronic renal failure, COPD, history of liver failure, underwent 2 paracenteses last week. She went home. She developed more edema, at which time, she was admitted. She was sent home on Xifaxan and lactulose. Not sure if she had metastases or not. She was supposed to be on lactulose 30 cc t.i.d., Primatene 10 q.i.d., DuoNeb q.i.d., Seroquel 100 at bedtime, Protonix 40 daily. ALLERGIES: Penicillin. REVIEW OF SYSTEMS: A 14-point review of systems otherwise negative. Chronic fatigue secondary to above. Otherwise, review of systems negative. Leg swelling is less swollen than last admission, but there is still a large amount of edema in the legs. PAST MEDICAL HISTORY: GERD, cirrhosis, COPD, history of VRE in the urine recently, cholecystectomy, paracentesis. PHYSICAL EXAMINATION: GENERAL: White female, obese, no acute distress. PSYCH: Fair mood and affect. Giving appropriate answers. NEUROLOGIC: Cranial nerves intact. Pupils equal, round, reactive. INTEGUMENT: She has some blotchiness around her skin secondary to possibly liver disease. LUNGS: Scattered rhonchi and wheeze. CARDIOVASCULAR: S1, S2. GI: Distended due to fluid wave. Large amount of abdomen girth, rigid. EXTREMITIES: 2 to 3+ edema, bilateral legs. Anasarca type changes. VITAL SIGNS: Temp 98.3, pulse 119, respiratory rate 18 to 20, blood pressure 113/55, O2 of 93%. PLAN: Plan is to admit for paracentesis. Continue with current diuresis at home. We will give her some albumin with the paracentesis. Leukocytosis, unclear etiology, possible infection with paracentesis with cirrhosis. We will get Dr. Kaba involved. Prognosis guarded. Set up for paracentesis. Monitor kidney failures, home medicines. Added albumin for paracentesis. Please see further orders. MMODL / IJN: [id number] /
[2024-05-25] MEDS: ALBUMIN HUMAN 25% 50 ML in EMPTY BAG 1 BAG IVPB SCH (11:53)
--- NOTE | 2024-05-25 12:33 | US ---
EXAMINATION TYPE: US paracentesis abd w/image, diagnostic and therapeutic DATE OF EXAM: 05/25/2024 CLINICAL HISTORY: 44 year-old female abdominal ascites and distention, referred for paracentesis. The procedure was discussed with the patient. The risks, complications, benefits, and alternatives we re discussed and any questions were answered. Informed consent was obtained. The patient was placed s upine on the ultrasound table and prepped and draped in the usual sterile fashion. All elements of maximal barrier technique were utilized. Ultrasound was utilized to determine the precise skin entry site along the right lower quadrant. Utilizing trocar technique and a 6 [place] safety CarWaleesis catheter system, access into the ascites fl uid was obtained. An initial 110 mL sample of fluid was collected in 2 syringes, labeled, and sent for laboratory thee sis. Subsequently, approximately 11 liters of clear yellow fluid was removed. Catheter was removed, hemostasis obtained, and a dressing placed. The patient was stable throughout the procedure and remained stable upon discharge from Department of Radiology. IMPRESSION: Successful diagnostic and therapeutic paracentesis under ultrasound guidance. 11 L of fluid removed. [facility], , 05/25/2024 12:31 PM
[2024-05-25 12:34] LABS: ALT 17 U/L (4-34); AST 44 U/L (14-36); African American GFR (CKD) 58 (>60 ml/min/1.73 sqM); Albumin 1.7 g/dL (3.5-5.0); Albumin/Globulin Ratio 0.8; Alkaline Phosphatase 171 U/L (38-126); Anion Gap 6 mmol/L; Blood Urea Nitrogen 41 mg/dL (7-17); Calcium 7.3 mg/dL (8.4-10.2); Carbon Dioxide 22 mmol/L (22-30); Chloride 99 mmol/L (98-107); Globulin 2.1 g/dL; Glucose 100 mg/dL (74-99); Non-African American GFR(CKD) 50 (>60 ml/min/1.73 sqM); Potassium 3.1 mmol/L (3.5-5.1); Sodium 127 mmol/L (137-145); Total Bilirubin 2.1 mg/dL (0.2-1.3); Total Protein 3.8 g/dL (6.3-8.2)
[2024-05-25 13:26] LABS: Anisocytosis Moderate; Basophils % (A) 0 %; Eosinophils # (A) 0.3 k/uL (0-0.7); Eosinophils % (A) 2 %; HCT 22.5 % (34.0-46.0); Hypochromasia Slight; Lymphocytes # (A) 2.5 k/uL (1.0-4.8); Lymphocytes % (A) 16 %; MCHC 32.5 g/dL (31.0-37.0); MCV 98.5 fL (80.0-100.0); Macrocytosis Moderate; Mean Platelet Volume 10.4; Monocytes # (A) 0.8 k/uL (0-1.0); Monocytes % (A) 5 %; Neutrophils # (A) 11.4 k/uL (1.3-7.7); Neutrophils % (A) 74 %; RBC 2.29 m/uL (3.80-5.40); RDW 21.5 % (11.5-15.5); WBC 15.5 k/uL (3.8-10.6)
[2024-05-25 15:03] LABS: Platelet Count 90 k/uL (150-450)
[2024-05-25 15:05] LABS: Poikilocytosis (M) Present
--- NOTE | 2024-05-25 15:51 | P.CONS ---
History of Present Illness - Reason for Consult Consult date: 05/25/24 cirrhosis Requesting physician: Luis Alfredo Shields - Chief Complaint Abdominal distention - History of Present Illness This a pleasant 44-year-old female who presented to the emergency department for abdominal distention and abdominal pain. Patient has had multiple hospitali zations recently. She was just hospitalized and discharged last week Thursday. During that hospitalization she was seen by gastroenterology for liver cirrhosis and ascites. She has had hyponatremia and has been followed by nephrology. She was discharged home states that she was not taking her lactulose, she was not taking any diuretics and she did not make any of her follow-up appointments with gastroenterology or nephrology. Patient's was diagnosed with alcohol induced liver cirrhosis about a year ago. She reportedly has not drank for about 10 months now. She had undergone cholecystectomy and underwent that on 03/21/[address] Corrigan and was hospitalized and discharged on 04/08/2024 following some reported complications following surgery. She had an upper endoscopy done 02/19/2024 with findings of antral ulcer, small distal esophageal varices with no stigmata of recent bleeding, and mild to moderate gastritis. Currently she is not on any diuretics. Gastroenterology was consulted for cirrhosis. She has leukocytosis on admission. Admitting labs WBC 20.2 hemoglobin 10.4 platelet count 112,000 INR 1.5 sodium 128 potassium 3.5 BUN 25 creatinine 1.16 total bilirubin 3.5 AST 46 ALT 18 alkaline phosphatase 218 ammonia 96 amylase less than 30 lipase 127 She denies any fevers or chills, states she came in because of abdominal distention. She still has some leaking from previous surgical site. Review of Systems REVIEW OF SYSTEMS: CARDIOPULMONARY: No chest pain or shortness of breath. Lower extremity swelling. Gastrointestinal: Abdominal distention with pain. No nausea or vomiting. No hematemesis, coffee-ground emesis. No rectal bleeding, or melena. GENITOURINARY: No dysuria or hematuria. MUSCULOSKELETAL: Reports normal range of motion., Joint pain. SKIN: No rashes. No jaundice. ENDOCRINE: No chills, fevers. No excessive weight gain or loss. No polydipsia or polyuria. PSYCHIATRIC: Unremarkable. NEUROLOGY: No change in mental status. Denies dizziness, headache. ENT: Vision unremarkable. CONSTITUTIONAL: No recent weight loss. No fever, chills, night sweats. Past Medical History Past Medical History: GERD/Reflux, Liver Disease Additional Past Medical History / Comment(s): retains fluid,anemia,cirrohis of liver non alcoholic, occ bloody stool, ulcer, bipolar, low sodium levels History of Any Multi-Drug Resistant Organisms: VRE Year Discovered:: 04/20/24 MDRO Source:: urine Past Surgical History: Cholecystectomy, EPS Additional Past Surgical History / Comment(s): has had 4 scopes, paracentesis unable to get any fluid out at the time, paracentesis Past Anesthesia/Blood Transfusion Reactions: No Reported Reaction Additional Past Anesthesia/Blood Transfusion Reaction / Comm: 3 units of blood transfused in around february 03. Past Psychological History: Anxiety, Bipolar Smoking Status: Former smoker Past Alcohol Use History: Abuse Additional Past Alcohol Use History / Comment(s): pt reports previously drinking 1 pint of liquor per day. Pt reports last drink 10 months ago Past Drug Use History: None Reported Medications and Allergies Home Medications Medication Instructions Recorded Confirmed Type Pantoprazole [Protonix] 40 mg PO DAILY 03/20/23 05/24/24 History QUEtiapine [SEROquel] 100 mg PO HS 03/20/23 05/24/24 History Budesonide-Formot 160-4.5 Mcg 2 puff INHALATION RT-BID 30 Days 02/24/24 05/24/24 Rx [Symbicort 160-4.5 Mcg Inhaler] #1 each Dapagliflozin Propanediol [Farxiga] 5 mg PO DAILY 90 Days #90 tab 04/08/24 05/24/24 Rx Sodium Bicarbonate Tab 650 mg PO DAILY 90 Days #90 tab 04/08/24 05/24/24 Rx Gabapentin [Neurontin] 300 mg PO TID 04/16/24 05/24/24 History Ipratropium-Albuterol Nebulize 3 ml INHALATION RT-TID 04/16/24 05/24/24 History [Duoneb 0.5 mg-3 mg/3 ml Soln] Tiotropium 2.5 Mcg/Puff [Spiriva 1 puff INHALATION RT-DAILY 04/16/24 05/24/24 History Respimat 2.5 Mcg] oxyCODONE HCL [OxyIR] 5 mg PO Q6HR PRN 3 Days #10 tab 04/28/24 05/24/24 Rx Midodrine HCl [ProAmatine] 10 mg PO QID@06,10,14,18 05/03/24 05/24/24 History Lactulose [Cephulac] 30 gm PO TID 30 Days #90 ml 05/16/24 05/24/24 Rx Magnesium Oxide [Mag-Ox] 400 mg PO DAILY 30 Days #30 tab 05/16/24 05/24/24 Rx Potassium Chloride ER [K-Dur 20] 20 meq PO BID 30 Days #60 tab 05/16/24 05/24/24 Rx Doxycycline Monohydrate 100 mg PO DIRECTED 05/24/24 05/24/24 History Allergies Allergy/AdvReac Type Severity Reaction Status Date / Time Penicillins Allergy Anaphylaxis Verified 05/24/24 19:58 Physical Exam Vitals: Vital Signs Temp Pulse Pulse Resp BP BP Pulse Ox 05/25/24 08:09 104 H 05/25/24 07:56 100 05/25/24 07:55 98.5 F 115 H 17 107/72 94 L 05/25/24 07:05 98.3 F 115 H 18 101/67 96 05/25/24 02:15 98.4 F 131 H 20 102/63 100 05/24/24 21:55 98.2 F 124 H 20 122/63 98 05/24/24 21:21 98.1 F 126 H 20 101/69 96 05/24/24 19:28 97.9 F 123 H 19 116/67 97 05/24/24 15:15 98.3 F 119 H 20 113/65 93 L Intake and Output 05/24/24 05/25/24 05/25/24 22:59 06:59 14:59 Other: # Voids 1 4 1 # Bowel Movements 1 Weight 117.934 kg General appearance: The patient is alert, oriented, appears in no acute distress. HET: Head is normocephalic and atraumatic. Conjunctiva pink. Sclera anicteric. Neck: Supple without lymphadenopathy. Trachea midline. Heart: Regular. Lungs: Equal expansion, normal respiratory effort. Abdomen: Soft, nontender, distended with large amount of ascites. Skin: No rashes. No jaundice. Right foot with wound to dorsal aspect. Bilat eral lower extremity swelling Extremities: Normal skin color and turgor. No pedal edema. Neurological: No focal deficits. Alert and oriented x3. Results CBC & Chem 7: 05/25/24 11:50 05/25/24 11:50 Labs: Abnormal Lab Results - Last 24 Hours (Table) 05/24/24 05/24/24 05/24/24 Range/Units 19:05 19:05 19:05 WBC 20.2 H (3.8-10.6) k/uL RBC 3.17 L (3.80-5.40) m/uL Hgb 10.4 L (11.4-16.0) gm/dL Hct 31.9 L (34.0-46.0) % MCV 100.6 H (80.0-100.0) fL RDW 21.2 H (11.5-15.5) % Plt Count 112 L (150-450) k/uL Neutrophils # 16.6 H (1.3-7.7) k/uL PT 15.9 H (10.0-12.5) sec INR 1.5 H (<1.2) APTT 34.9 H (22.0-30.0) sec Sodium 128 L (137-145) mmol/L Chloride 96 L (98-107) mmol/L BUN 25 H (7-17) mg/dL Creatinine 1.16 H (0.52-1.04) mg/dL Glucose 120 H (74-99) mg/dL Calcium 7.7 L (8.4-10.2) mg/dL Total Bilirubin 3.5 H (0.2-1.3) mg/dL AST 46 H (14-36) U/L Alkaline Phosphatase 218 H (38-126) U/L Ammonia (<30) umol/L Total Protein 5.2 L (6.3-8.2) g/dL Albumin 2.5 L (3.5-5.0) g/dL Amylase <30 L (30-110) U/L 05/25/24 Range/Units 00:37 WBC (3.8-10.6) k/uL RBC (3.80-5.40) m/uL Hgb (11.4-16.0) gm/dL Hct (34.0-46.0) % MCV (80.0-100.0) fL RDW (11.5-15.5) % Plt Count (150-450) k/uL Neutrophils # (1.3-7.7) k/uL PT (10.0-12.5) sec INR (<1.2) APTT (22.0-30.0) sec Sodium (137-145) mmol/L Chloride (98-107) mmol/L BUN (7-17) mg/dL Creatinine (0.52-1.04) mg/dL Glucose (74-99) mg/dL Calcium (8.4-10.2) mg/dL Total Bilirubin (0.2-1.3) mg/dL AST (14-36) U/L Alkaline Phosphatase (38-126) U/L Ammonia 96 H (<30) umol/L Total Protein (6.3-8.2) g/dL Albumin (3.5-5.0) g/dL Amylase (30-110) U/L Assessment and Plan (1) Alcoholic cirrhosis of liver with ascites Narrative/Plan: 44-year-old female well-known to gastroenterology with multiple hospitalizations for alcoholic cirrhosis of the liver with ascites. She has been hyponatremic on previous hospitalizations. States she was told by her PCP not to take diuretics on discharge. She was not taking any diuretics, not taking her lactulose as she did not clam picker her medication and returned with abdominal distention with elevated ammonia level. Patient is with decompensated cirrhosis of the liver. She has not had any outpatient follow-up with specialist. She is presenting with leukocytosis and need to suspect possible spontaneous bacterial peritonitis. Paracentesis ordered, will get cell count and fluid cultures. Will start IV antibiotics. Current Visit: Yes Status: Acute Code(s): K70.31 - ALCOHOLIC CIRRHOSIS OF LIVER WITH ASCITES SNOMED Code(s): 808831826 (2) Leukocytosis Current Visit: Yes Status: Acute Code(s): D72.829 - ELEVATED WHITE BLOOD CELL COUNT, UNSPECIFIED SNOMED Code(s): 334626015 (3) Swelling of lower extremity Current Visit: Yes Status: Acute Code(s): M79.89 - OTHER SPECIFIED SOFT TISSUE DISORDERS SNOMED Code(s): 077287708 (4) Thrombocytopenia Current Visit: Yes Status: Acute Code(s): D69.6 - THROMBOCYTOPENIA, UNSPECIFIED SNOMED Code(s): 829441883 (5) Anemia Current Visit: No Status: Acute Code(s): D64.9 - ANEMIA, UNSPECIFIED SNOMED Code(s): 347794379 (6) Hyponatremia Current Visit: No Status: Acute Code(s): E87.1 - HYPO-OSMOLALITY AND HYPONATREMIA SNOMED Code(s): 69439597 Plan: 1. Continue symptomatic and supportive care 2. Monitor kidney function, will need to start diuretics 3. Continue lactulose and Xifaxan as ordered. 4. Paracentesis ordered with 11 L removed 5. Albumin as ordered 6. Fluid restrictions 7. Low-sodium diet 8. Discussed with patient importance of medical compliance and outpatient follow-up appointments with specialists Thank you for this consultation, we will continue to follow. Dr. Rachel Cuenca I agree with the dictator's note, documented as a scribe by Katiuska Fan.
[2024-05-25] MEDS: SODIUM FERRIC GLUCONAT-SUCROSE 125 MG in SODIUM CHLORIDE 0.9% 100 ML IVPB SCH ×2 (17:57→22:41)
[2024-05-25 20:55] LABS: Anisocytosis Moderate; Basophils % (A) 0 %; Eosinophils # (A) 0.6 k/uL (0-0.7); Eosinophils % (A) 4 %; Hypochromasia Slight; Lymphocytes # (A) 2.8 k/uL (1.0-4.8); Lymphocytes % (A) 19 %; MCH 32.3 pg (25.0-35.0); MCHC 32.1 g/dL (31.0-37.0); MCV 100.7 fL (80.0-100.0); Macrocytosis Moderate; Mean Platelet Volume 10.1; Monocytes # (A) 0.7 k/uL (0-1.0); Monocytes % (A) 5 %; Neutrophils # (A) 10.5 k/uL (1.3-7.7); Neutrophils % (A) 69 %; RBC 2.18 m/uL (3.80-5.40); RDW 21.8 % (11.5-15.5); WBC 15.1 k/uL (3.8-10.6)
[2024-05-25] MEDS: QUEtiapine 100 MG TAB PO SCH (20:55)
[2024-05-25] MEDS: SODIUM CHLORIDE 0.9% 1,000 ML IV SCH (20:56)
[2024-05-25 21:03] LABS: Platelet Count 86 k/uL (150-450)
[2024-05-25 21:05] LABS: Glucose,Whole Blood 96 mg/dL (70-110)
[2024-05-25 21:57] LABS: Glucose,Whole Blood 98 mg/dL (70-110)
[2024-05-25] MEDS: SODIUM CHLORIDE 0.9% 1,000 ML IV ONE (22:40)
[2024-05-25] MEDS ORDERED: Phosphorus Replacement Protoco 1 EACH MISC MISCELLANE PRN (22:50)
[2024-05-25] MEDS ORDERED: Potassium Replacement Protocol 1 EACH MISC MISCELLANE PRN (22:50)
[2024-05-25] MEDS ORDERED: Magnesium Replacement Protocol 1 EACH MISC MISCELLANE PRN (22:50)
[2024-05-26 00:46] LABS: African American GFR (CKD) 57 (>60 ml/min/1.73 sqM); Anion Gap 2 mmol/L; Blood Urea Nitrogen 42 mg/dL (7-17); Calcium 7.3 mg/dL (8.4-10.2); Carbon Dioxide 22 mmol/L (22-30); Chloride 103 mmol/L (98-107); Glucose 83 mg/dL (74-99); Magnesium 1.8 mg/dL (1.6-2.3); Non-African American GFR(CKD) 50 (>60 ml/min/1.73 sqM); Phosphorus 2.6 mg/dL (2.5-4.5); Sodium 127 mmol/L (137-145)
[2024-05-26 01:38] LABS: Potassium 2.6 mmol/L (3.5-5.1)
[2024-05-26] MEDS ORDERED: Potassium Replacement Protocol 1 EACH MISC MISCELLANE PRN (01:39)
[2024-05-26] MEDS: POTASSIUM CHLORIDE 10 MEQ in WATER FOR INJECTION 1 100ML.BAG IVPB SCH (02:16)
[2024-05-26] MEDS ORDERED: Magnesium Replacement Protocol 1 EACH MISC MISCELLANE PRN (02:49)
[2024-05-26] MEDS: MAGNESIUM SULFATE-D5W PMX 1 GM in DEXTROSE/WATER 1 100ML.BAG IVPB ONE (03:16)
--- NOTE | 2024-05-26 03:47 | PN ---
PROGRESS NOTE A 44-year-old female with abdominal ascites, distention, and paracentesis drained, 5 mL of fluid was removed. Waiting for GI to see her. Leukocytosis. We are waiting for Dr. Kaba's recommendations. Currently, white count 15.5, hemoglobin is down to 7.3, potassium 3.1, sodium 127, BUN is 41, creatinine 1.31, total bilirubin down to 2.1 from 3.5, albumin is 1.7. Gave her 50 g of albumin with thoracentesis. Continue current treatment. Prognosis guarded. Wait to see what GI doctor says as far as the cirrhosis which apparently is improving. MMODL / IJN: [id number] /
[2024-05-26] MEDS: NOREPINEPHRINE 4 MG in SODIUM CHLORIDE 0.9% 250 ML IV SCH (04:07)
[2024-05-26 04:35] LABS: Appearance,BF Clear (Clear)
--- NOTE | 2024-05-26 05:06 | P.CNPUL ---
History of Present Illness Consult date: 05/26/24 Requesting physician: Luis Alfredo Shields Reason for consult: other (ICU management) Chief complaint: Abdominal pain and ascites History of present illness: Patient is a 44-year-old white female with past medical history significant for cirrhosis of the liver, alcohol induced, abdominal ascites requiring frequent paracentesis, UTI with VRE. She is very debilitated, and has had frequent hospitalizations since January of this year, mostly due to complications due to her liver disease. Of note, recently discharged home from this facility May 16, she was apparently admitted for fluid overload and lower extremity cellulitis. Patient returns to the emergency department 05/24/2024 with a chief complaint of abdominal pain. Denies fevers. She does undergo frequent paracentesis. She has positive fluid balance, and severe lower extremity edema. Admits 20 pound weight gain since her hospital discharge on May 16. Yesterday, underwent large-volume paracentesis, total of 11L was removed. Following this she became hypotensive and patient was transferred to the intensive care unit. She did receive 50 g of 25% albumin. She also was noted to have some dark tarry stools that started yesterday. Hemoglobin has been trending down, most recent 7 g/dL. She is receiving 1 unit PRBCs at the moment. She does have history of GI bleeding. Most recent EGD done February 19, 2024 showing a small antral gastric ulcer with no active bleeding and small distal esophageal varices. Patient currently being evaluated in the ICU, she is alert and oriented. Continues to have dark tarry stools. Fecal occult positive. Blood pressure slightly hypotensive currently 86/46 mmHg. She is receiving a un it of PRBCs at the moment. Normal saline continues at 150 mL/h. Patient did receive an additional 1 L fluid bolus earlier. May require vasopressors if she remains hypotensive. Fluid status appears positive. Urine output is adequate, around 50 to 100 cc/h. Patient denies any urinary symptoms at this time, no burning/dysuria, no hematuria, no urinary frequency. On her recent previous hospital discharge, her Lasix was discontinued. She has significant lower extremity swelling, her legs are wrapped with Theo bandages. Most recent CBC from yesterday: WBC count 15.1, hemoglobin 7, hematocrit 22, platelets 86. CMP from yesterday: Sodium 127, potassium 3.1, chloride 99, serum bicarb 22, BUN 41, creatinine 1.31, glucose 100. Urinalysis was sent. LFTs mildly elevated. Patient has been started on empiric Rocephin for possible SBP. If blood pressure remains hypotensive, may require vasopressors Review of Systems Constitutional: Reports weight gain, Denies chills, Denies fever, Denies poor appetite, Denies weight loss Ears, nose, mouth and throat: Denies nasal congestion, Denies nasal discharge, Denies post-nasal drip, Denies sinus pain, Denies sinus pressure, Denies sore throat Cardiovascular: Reports dyspnea on exertion, Denies chest pain, Denies orthopnea, Denies palpitations, Denies paroxysmal nocturnal dyspnea, Denies syncope Respiratory: Denies congestion, Denies cough, Denies home oxygen Gastrointestinal: Reports abdominal pain, Reports change in bowel habits, Reports diarrhea, Reports melena, Reports nausea, Denies hematemesis, Denies hematochezia, Denies vomiting Genitourinary: Denies dysuria, Denies flank pain, Denies hematuria, Denies urinary frequency Integumentary: Reports sores, Denies pruritus Neurological: Denies confusion Psychiatric: Denies anxiety, Denies depression Past Medical History Past Medical History: GERD/Reflux, Liver Disease Additional Past Medical History / Comment(s): retains fluid,anemia,cirrohis of liver non alcoholic, occ bloody stool, ulcer, bipolar, low sodium levels History of Any Multi-Drug Resistant Organisms: VRE Date of last positivie culture/infection: 04/20/24 MDRO Source:: urine Past Surgical History: Cholecystectomy, EPS Additional Past Surgical History / Comment(s): has had 4 scopes, paracentesis unable to get any fluid out at the time, paracentesis Past Anesthesia/Blood Transfusion Reactions: No Reported Reaction Additional Past Anesthesia/Blood Transfusion Reaction / Comment(s): 3 units of blood transfused in around february 03. Past Psychological History: Anxiety, Bipolar Smoking Status: Former smoker Past Alcohol Use History: Abuse Additional Past Alcohol Use History / Comment(s): pt reports previously drinking 1 pint of liquor per day. Pt reports last drink 10 months ago Past Drug Use History: None Reported Medications and Allergies Home Medications Medication Instructions Recorded Confirmed Type Pantoprazole [Protonix] 40 mg PO DAILY 03/20/23 05/24/24 History QUEtiapine [SEROquel] 100 mg PO HS 03/20/23 05/24/24 History Budesonide-Formot 160-4.5 Mcg 2 puff INHALATION RT-BID 30 Days 02/24/24 05/24/24 Rx [Symbicort 160-4.5 Mcg Inhaler] #1 each Dapagliflozin Propanediol [Farxiga] 5 mg PO DAILY 90 Days #90 tab 04/08/24 05/24/24 Rx Sodium Bicarbonate Tab 650 mg PO DAILY 90 Days #90 tab 04/08/24 05/24/24 Rx Gabapentin [Neurontin] 300 mg PO TID 04/16/24 05/24/24 History Ipratropium-Albuterol Nebulize 3 ml INHALATION RT-TID 04/16/24 05/24/24 History [Duoneb 0.5 mg-3 mg/3 ml Soln] Tiotropium 2.5 Mcg/Puff [Spiriva 1 puff INHALATION RT-DAILY 04/16/24 05/24/24 History Respimat 2.5 Mcg] oxyCODONE HCL [OxyIR] 5 mg PO Q6HR PRN 3 Days #10 tab 04/28/24 05/24/24 Rx Midodrine HCl [ProAmatine] 10 mg PO QID@06,10,,18 05/03/24 05/24/24 History Lactulose [Cephulac] 30 gm PO TID 30 Days #90 ml 05/16/24 05/24/24 Rx Magnesium Oxide [Mag-Ox] 400 mg PO DAILY 30 Days #30 tab 05/16/24 05/24/24 Rx Potassium Chloride ER [K-Dur 20] 20 meq PO BID 30 Days #60 tab 05/16/24 05/24/24 Rx Doxycycline Monohydrate 100 mg PO DIRECTED 05/24/24 05/24/24 History Allergies Allergy/AdvReac Type Severity Reaction Status Date / Time Penicillins Allergy Anaphylaxis Verified 05/24/24 19:58 Physical Exam Vitals: Vital Signs Temp Pulse Pulse Resp BP BP Pulse Ox 05/26/24 01:00 93 21 97/46 96 05/26/24 00:47 98.1 F 91 14 93/41 05/26/24 00:45 94 13 92/47 97 05/26/24 00:37 98.3 F 95 16 92/47 96 05/26/24 00:30 93 37 H 107/42 97 05/26/24 00:15 96 16 94/46 95 05/26/24 00:00 98 10 L 92/55 98 05/25/24 23:45 99 20 90/47 97 05/25/24 23:35 100 19 90/47 98 05/25/24 23:30 100 17 90/47 97 05/25/24 23:15 103 H 21 86/34 97 05/25/24 23:00 86 9 L 89/39 96 05/25/24 22:45 82 17 85/54 98 05/25/24 22:30 82 16 96/70 96 05/25/24 22:15 86 14 121/89 99 05/25/24 22:00 98.7 F 83 15 109/55 98 05/25/24 20:52 79 71/34 99 05/25/24 20:15 98.2 F 76 18 91/58 99 05/25/24 19:42 75/49 05/25/24 15:32 88 05/25/24 15:23 96 05/25/24 15:15 92 91/54 96 05/25/24 14:15 75 82/49 96 05/25/24 14:00 92 05/25/24 13:15 86 123/67 95 05/25/24 12:45 88 94/56 96 05/25/24 12:35 89 78/50 97 05/25/24 12:30 86 76/44 96 05/25/24 12:15 86 77/46 94 L 05/25/24 12:00 85 83/46 97 05/25/24 11:45 98.3 F 86 88/48 94 L 05/25/24 11:30 85 17 99/51 98 05/25/24 11:08 83 17 96/49 99 05/25/24 10:33 87 16 95/54 94 L 05/25/24 10:21 83 16 100/57 94 L 05/25/24 09:35 86 18 105/61 95 05/25/24 08:09 104 H 05/25/24 08:00 16 05/25/24 07:56 100 05/25/24 07:55 98.5 F 115 H 17 107/72 94 L 05/25/24 07:05 98.3 F 115 H 18 101/67 96 05/25/24 02:15 98.4 F 131 H 20 102/63 100 Intake and Output 05/25/24 05/25/24 05/26/24 14:59 22:59 06:59 Intake Total 880 616 4987 Output Total 350 Balance 358 118 900 Intake: IV 1250 Sodium Chloride 0.9% 1, 150 000 ml @ 150 mls/hr IV . Q6H40M [facility] Rx#:[id number] Sodium Chloride 0.9% 1, 1000 000 ml @ 999 mls/hr IV . Q1H1M [facility] Rx#:[id number] Sodium Ferric Gluconat- 100 Sucrose 125 mg In Sodium Chloride 0.9% 100 ml @ 100 mls/hr IVPB HS [facility] Rx #:[id number] Oral 358 118 Blood Product 0 Rc As-1 Unit 0 [id number] Output: Urine 350 Other: # Voids 1 # Bowel Movements 1 1 GENERAL EXAM: Alert, 44-year-old white female, fatigued, nonjaundiced, scattered spider angiomas, abdominal distention/ascites HEAD: Normocephalic and atraumatic EYES: Normal reaction of pupils, equal size. NOSE: Clear with pink turbinates. THROAT: No erythema or exudates. NECK: No masses, no JVD. CHEST: No chest wall deformity. LUNGS: Equal air entry with no crackles, wheeze, rhonchi or dullness. On 2 L/min nasal cannula. No conversational dyspnea or accessory muscle use.. CVS: S1 and S2 normal with no audible murmur, regular rhythm. No extra heart sounds ABDOMEN: Abdominal distention/ascites, active bowel sounds, no hepatosplenomegaly, no guarding or rigidity. SPINE: No scoliosis or deformity SKIN: No rashes CENTRAL NERVOUS SYSTEM: No focal deficits, tone is normal in all 4 extremities. No asterixis EXTREMITIES: Bilateral lower extremity edema, legs wrapped with Theo bandages. No clubbing, or cyanosis. Peripheral pulses are intact. Results - Laboratory Findings CBC and BMP: 05/25/24 19:54 05/25/24 23:46 PT/INR, D-dimer PT 15.9 sec (10.0-12.5) H 05/24/24 19:05 INR 1.5 (<1.2) H 05/24/24 19:05 Abnormal lab findings: Abnormal Labs 05/24/24 05/24/24 05/24/24 19:05 19:05 19:05 WBC 20.2 H RBC 3.17 L Hgb 10.4 L Hct 31.9 L MCV 100.6 H RDW 21.2 H Plt Count 112 L Neutrophils # 16.6 H PT 15.9 H INR 1.5 H APTT 34.9 H Sodium 128 L Potassium Chloride 96 L BUN 25 H Creatinine 1.16 H Glucose 120 H Calcium 7.7 L Total Bilirubin 3.5 H AST 46 H Alkaline Phosphatase 218 H Ammonia Total Protein 5.2 L Albumin 2.5 L Amylase <30 L Stool Occult Blood Crossmatch 05/25/24 05/25/24 05/25/24 00:37 11:50 11:50 WBC 15.5 H RBC 2.29 L Hgb 7.3 L D Hct 22.5 L MCV RDW 21.5 H Plt Count 90 L Neutrophils # 11.4 H PT INR APTT Sodium 127 L Potassium 3.1 L Chloride BUN 41 H Creatinine 1.31 H Glucose 100 H Calcium 7.3 L Total Bilirubin 2.1 H AST 44 H Alkaline Phosphatase 171 H Ammonia 96 H Total Protein 3.8 L Albumin 1.7 L Amylase Stool Occult Blood Crossmatch 05/25/24 05/25/24 05/25/24 11:50 19:30 19:54 WBC 15.1 H RBC 2.18 L Hgb 7.0 L Hct 22.0 L MCV 100.7 H RDW 21.8 H Plt Count 86 L Neutrophils # 10.5 H PT INR APTT Sodium Potassium Chloride BUN Creatinine Glucose Calcium Total Bilirubin AST Alkaline Phosphatase Ammonia 43 H Total Protein Albumin Amylase Stool Occult Blood Positive H Crossmatch 05/25/24 21:37 WBC RBC Hgb Hct MCV RDW Plt Count Neutrophils # PT INR APTT Sodium Potassium Chloride BUN Creatinine Glucose Calcium Total Bilirubin AST Alkaline Phosphatase Ammonia Total Protein Albumin Amylase Stool Occult Blood Crossmatch See Detail - Diagnostic Findings Chest x-ray: image reviewed Assessment and Plan Assessment: Acute upper GI bleed, patient's having multiple melanotic stools, hemoglobin is trending down currently 7 g/dL, receiving 1 unit PRBC, GI consultation Acute blood loss anemia, on top of chronic anemia, currently receiving 1 unit PRBCs Abdominal ascites, status post large-volume paracentesis, total of 11 L was removed, patient did receive 50 g of 25% albumin Hypotension, secondary to combination of above, status post 1 L fluid bolus Abdominal pain Acute leukocytosis History of liver cirrhosis, secondary to chronic alcohol use History of GI bleed, gastric ulcer, and small esophageal varices; last EGD done 02/19/24 Hypervolemic hyponatremia Severe hypokalemia, being replaced per protocol History of UTI/VRE History of recent cholecystectomy. History of COPD. History of bipolar disorder. History of chronic thrombocytopenia Chronic kidney disease, secondary to hepatorenal syndrome History of alcoholism, last reported drink > 6 months ago. Plan: Patient's medications, labs, imaging reviewed Patient became hypotensive status post large-volume paracentesis. Did receive 50 g of 25% albumin. Yesterday, patient was observed to have frequent melanotic stools. Chain Carrier consulted. Currently, receiving 1 unit PRBCs. Start Protonix IVP BID. Monitor H&H. Also received 1 L fluid bolus. Continue IV maintenance fluids. May require vasopressors if refractory hypotension Monitor and replace electrolytes per protocol Continue empiric antibiotic coverage for SBP Ascites fluid sent for culture Urine culture is pending Patient has had very frequent hospitalizations since January,. She is very debilitated. Overall prognosis is certainly guarded. We will continue to follow the patient while in the intensive care unit. I have personally seen and examined the patient, performed the documentation and the assessment and plan as written. Number of minutes spent on the visit:20 Time with Patient: Greater than 30
[2024-05-26 06:28] LABS: Glucose,Whole Blood 109 mg/dL (70-110)
--- NOTE | 2024-05-26 07:10 | P.CONS ---
History of Present Illness - Reason for Consult Consult date: 05/25/24 Leukocytosis Requesting physician: Luis Alfredo Shields - Chief Complaint Abdominal and lower extremity swelling x days - History of Present Illness Patient is a 44-year-old female with a past medical history significant for cirrhosis of the liver bipolar recurrent admission to the hospital for ascites and lower extremity cellulitis patient was brought into the hospital concerning for increasing swelling to the abdomen as well as lower extremity that apparently has been getting worse for the last few days patient denies fever or any chills denies having any chest pain shortness of breath cough mostly symptoms of worsening abdominal distention as well as lower e xtremity and also have a wound to the right foot from a ruptured blister, patient denies having any worsening pain to the lower extremity did have some dull aching pain to the right foot especially with the wound area but denies having any foul-smelling drainage on presentation to the hospital the patient was afebrile and no fever have been recorded subsequently patient was not tachycardic or hypotensive and not hypoxic or need for supplemental oxygen patient did have white count of 20,000 repeat is 15.1 BUN/creatinine has been mildly elevated as well as elevated liver enzymes patient did have a paracentesis completed this morning with results currently pending she has been given a dose of Rocephin infectious disease was consulted for further management of antibiotic therapy Review of Systems Positive point and negatives has been mentioned in the HPI, complete review of systems was performed and all other systems are negative Past Medical History Past Medical History: GERD/Reflux, Liver Disease Additional Past Medical History / Comment(s): retains fluid,anemia,cirrohis of liver non alcoholic, occ bloody stool, ulcer, bipolar, low sodium levels History of Any Multi-Drug Resistant Organisms: VRE Year Discovered:: 04/20/24 MDRO Source:: urine Past Surgical History: Cholecystectomy, EPS Additional Past Surgical History / Comment(s): has had 4 scopes, paracentesis unable to get any fluid out at the time, paracentesis Past Anesthesia/Blood Transfusion Reactions: No Reported Reaction Additional Past Anesthesia/Blood Transfusion Reaction / Comm: 3 units of blood transfused in around february 03. Past Psychological History: Anxiety, Bipolar Smoking Status: Former smoker Past Alcohol Use History: Abuse Additional Past Alcohol Use History / Comment(s): pt reports previously drinking 1 pint of liquor per day. Pt reports last drink 10 months ago Past Drug Use History: None Reported Medications and Allergies Home Medications Medication Instructions Recorded Confirmed Type Pantoprazole [Protonix] 40 mg PO DAILY 03/20/23 05/24/24 History QUEtiapine [SEROquel] 100 mg PO HS 03/20/23 05/24/24 History Budesonide-Formot 160-4.5 Mcg 2 puff INHALATION RT-BID 30 Days 02/24/24 05/24/24 Rx [Symbicort 160-4.5 Mcg Inhaler] #1 each Dapagliflozin Propanediol [Farxiga] 5 mg PO DAILY 90 Days #90 tab 04/08/24 05/24/24 Rx Sodium Bicarbonate Tab 650 mg PO DAILY 90 Days #90 tab 04/08/24 05/24/24 Rx Gabapentin [Neurontin] 300 mg PO TID 04/16/24 05/24/24 History Ipratropium-Albuterol Nebulize 3 ml INHALATION RT-TID 04/16/24 05/24/24 History [Duoneb 0.5 mg-3 mg/3 ml Soln] Tiotropium 2.5 Mcg/Puff [Spiriva 1 puff INHALATION RT-DAILY 04/16/24 05/24/24 History Respimat 2.5 Mcg] oxyCODONE HCL [OxyIR] 5 mg PO Q6HR PRN 3 Days #10 tab 04/28/24 05/24/24 Rx Midodrine HCl [ProAmatine] 10 mg PO QID@06,10,14,18 05/03/24 05/24/24 History Lactulose [Cephulac] 30 gm PO TID 30 Days #90 ml 05/16/24 05/24/24 Rx Magnesium Oxide [Mag-Ox] 400 mg PO DAILY 30 Days #30 tab 05/16/24 05/24/24 Rx Potassium Chloride ER [K-Dur 20] 20 meq PO BID 30 Days #60 tab 05/16/24 05/24/24 Rx Doxycycline Monohydrate 100 mg PO DIRECTED 05/24/24 05/24/24 History Allergies Allergy/AdvReac Type Severity Reaction Status Date / Time Penicillins Allergy Anaphylaxis Verified 05/24/24 19:58 Physical Exam Vitals: Vital Signs Temp Pulse Pulse Resp BP BP Pulse Ox 05/25/24 10:33 67 16 95/54 94 L 10/23/24 10:21 83 16 100/57 94 L 05/25/24 09:35 86 18 105/61 95 05/25/24 08:09 104 H 05/25/24 07:56 100 05/25/24 07:55 98.5 F 115 H 17 107/72 94 L 05/25/24 07:05 98.3 F 115 H 18 101/67 96 05/25/24 02:15 98.4 F 131 H 20 102/63 100 05/24/24 21:55 98.2 F 124 H 20 122/63 98 05/24/24 21:21 98.1 F 126 H 20 101/69 96 05/24/24 19:28 97.9 F 123 H 19 116/67 97 05/24/24 15:15 98.3 F 119 H 20 113/65 93 L Intake and Output 05/24/24 05/25/24 05/25/24 22:59 06:59 14:59 Intake Total 118 Balance 118 Intake: Oral 118 Other: # Voids 1 4 1 # Bowel Movements 1 Weight 117.934 kg GENERAL DESCRIPTION: Middle-aged female lying in bed, no distress. No tachypnea or accessory muscle of respiration use. HEENT: Shows Pallor , no scleral icterus. Oral mucous membrane is dry. No pharyngeal erythema or thrush NECK: Trachea central, no thyromegaly. LUNGS: Unlabored breathing. Decreased breath sound at the base. No wheeze or crackle. HEART: S1, S2, regular rate and rhythm. No loud murmur ABDOMEN: Soft, mild distention but no significant tenderness EXTREMITIES: Diffuse swelling to bilateral lower extremity which is slightly red and warm to touch with a wound on the dorsal aspect of the right foot minimal slough tissue SKIN: No rash, no masses palpable. NEUROLOGICAL: The patient is awake, alert, oriented x3, mood and affect normal. Results CBC & Chem 7: 05/25/24 19:54 05/25/24 23:46 Labs: Abnormal Lab Results - Last 24 Hours (Table) 05/24/24 05/24/24 05/24/24 Range/Units 19:05 19:05 19:05 WBC 20.2 H (3.8-10.6) k/uL RBC 3.17 L (3.80-5.40) m/uL Hgb 10.4 L (11.4-16.0) gm/dL Hct 31.9 L (34.0-46.0) % MCV 100.6 H (80.0-100.0) fL RDW 21.2 H (11.5-15.5) % Plt Count 112 L (150-450) k/uL Neutrophils # 16.6 H (1.3-7.7) k/uL PT 15.9 H (10.0-12.5) sec INR 1.5 H (<1.2) APTT 34.9 H (22.0-30.0) sec Sodium 128 L (137-145) mmol/L Chloride 96 L (98-107) mmol/L BUN 25 H (7-17) mg/dL Creatinine 1.16 H (0.52-1.04) mg/dL Glucose 120 H (74-99) mg/dL Calcium 7.7 L (8.4-10.2) mg/dL Total Bilirubin 3.5 H (0.2-1.3) mg/dL AST 46 H (14-36) U/L Alkaline Phosphatase 218 H (38-126) U/L Ammonia (<30) umol/L Total Protein 5.2 L (6.3-8.2) g/dL Albumin 2.5 L (3.5-5.0) g/dL Amylase <30 L (30-110) U/L 05/25/24 Range/Units 00:37 WBC (3.8-10.6) k/uL RBC (3.80-5.40) m/uL Hgb (11.4-16.0) gm/dL Hct (34.0-46.0) % MCV (80.0-100.0) fL RDW (11.5-15.5) % Plt Count (150-450) k/uL Neutrophils # (1.3-7.7) k/uL PT (10.0-12.5) sec INR (<1.2) APTT (22.0-30.0) sec Sodium (137-145) mmol/L Chloride (98-107) mmol/L BUN (7-17) mg/dL Creatinine (0.52-1.04) mg/dL Glucose (74-99) mg/dL Calcium (8.4-10.2) mg/dL Total Bilirubin (0.2-1.3) mg/dL AST (14-36) U/L Alkaline Phosphatase (38-126) U/L Ammonia 96 H (<30) umol/L Total Protein (6.3-8.2) g/dL Albumin (3.5-5.0) g/dL Amylase (30-110) U/L Assessment and Plan (1) Bilateral lower leg cellulitis Current Visit: Yes Status: Acute Code(s): L03.116 - CELLULITIS OF LEFT LOWER LIMB; L03.115 - CELLULITIS OF RIGHT LOWER LIMB SNOMED Code(s): 935065316 (2) Wound of right foot Current Visit: Yes Status: Acute Code(s): S91.301A - UNSPECIFIED OPEN WOUND, RIGHT FOOT, INITIAL ENCOUNTER SNOMED Code(s): 544747076 (3) Leukocytosis Current Visit: Yes Status: Acute Code(s): D72.829 - ELEVATED WHITE BLOOD CELL COUNT, UNSPECIFIED SNOMED Code(s): 163748120 Plan: 1patient with a leukocytosis in this patient who did have a cirrhosis of the liver now presented to the hospital with increasing abdominal distention but no significant tenderness clinically not behaving as SBP but not entirely excluded patient did have bilateral lower extremity swelling and redness and complaint of cellulitis likely etiology of this elevated white count 2-patient did have improvement in her white count with Rocephin hence we will consider continuing Rocephin but increase the dose to 2 g daily 3-local wound care to the right foot wound with the Medihoney followed by moist dressing change daily We will follow on clinical condition and cultures to further adjust medication if needed Thank you for this consultation we will follow the patient along with you Dictation was produced using [employer] dictation software. please excuse any grammatical, word or spelling errors. Time with Patient: Greater than 30
[2024-05-26 08:33] LABS: Basophils # (A) 0.06 X 10*3/uL (0.00-0.10); Basophils % (A) 0.4 %; Eosinophils # (A) 0.57 X 10*3/uL (0.04-0.35); Eosinophils % (A) 4.2 %; HCT 21.8 % (37.2-46.3); HGB 7.2 g/dL (12.0-15.0); Immature Platelet Fraction 7.3 % (1.1-6.1); Lymphocytes # (A) 2.34 X 10*3/uL (0.90-5.00); Lymphocytes % (A) 17.3 %; MCH 32.4 pg (27.0-32.0); MCV 98.2 FL (80.0-97.0); Mean Platelet Volume 11.8 FL (9.5-12.2); Monocytes # (A) 0.73 X 10*3/uL (0.20-1.00); Monocytes % (A) 5.4 %; NRBC Per 100 WBC 0.02 X 10*3/uL (0.00-0.01); Neutrophils # (A) 9.71 X 10*3/uL (1.80-7.70); Neutrophils % (A) 71.9 %; Platelet Count 62 X 10*3/uL (140-440); RBC 2.22 X 10*6/uL (4.10-5.20); RDW 21.2 % (11.5-14.5); WBC 13.52 X 10*3/uL (4.50-10.00)
[2024-05-26] MEDS: FUROSEMIDE 20 MG TAB PO SCH (09:28)
[2024-05-26] MEDS: PANTOPRAZOLE 40 MG/10 ML VIAL IVP SCH (09:34)
[2024-05-26 12:00] LABS: Anisocytosis Moderate; HCT 24.2 % (34.0-46.0); HGB 7.8 gm/dL (11.4-16.0); Hypochromasia Moderate; MCH 32.8 pg (25.0-35.0); MCHC 32.4 g/dL (31.0-37.0); MCV 101.2 fL (80.0-100.0); Macrocytosis Moderate; Poikilocytosis Slight; RBC 2.39 m/uL (3.80-5.40); RDW 21.7 % (11.5-15.5); WBC 11.5 k/uL (3.8-10.6)
[2024-05-26 12:02] LABS: African American GFR (CKD) 64 (>60 ml/min/1.73 sqM); Anion Gap 2 mmol/L; Blood Urea Nitrogen 40 mg/dL (7-17); Calcium 7.2 mg/dL (8.4-10.2); Carbon Dioxide 21 mmol/L (22-30); Chloride 110 mmol/L (98-107); Glucose 86 mg/dL (74-99); Non-African American GFR(CKD) 55 (>60 ml/min/1.73 sqM); Sodium 133 mmol/L (137-145)
[2024-05-26 12:07] LABS: Platelet Count 64 k/uL (150-450)
[2024-05-26 12:20] LABS: Glucose,Whole Blood 95 mg/dL (70-110)
[2024-05-26] MEDS: POTASSIUM CHLORIDE 10 MEQ in SODIUM CHLORIDE 0.9% 100 ML IVPB SCH (13:11)
--- NOTE | 2024-05-26 13:49 | P.PN ---
Subjective Progress Note Date: 05/26/24 Principal diagnosis: Liver cirrhosis, GI bleed This a pleasant 44-year-old female who presented to the emergency department for abdominal distention and abdominal pain. Patient has had multiple hospitalizations recently. She was just hospitalized and discharged last week Thursday. During that hospitalization she was seen by gastroenterology for liver cirrhosis and ascites. She has had hyponatremia and has been followed by nephrology. She was discharged home states that she was not taking her lactulose, she was not taking any diuretics and she did not make any of her fo llow-up appointments with gastroenterology or nephrology. Patient's was diagnosed with alcohol induced liver cirrhosis about a year ago. She reportedly has not drank for about 10 months now. She had undergone cholecystectomy and underwent that on 03/21/[address] Corrigan and was hospitalized and discharged on 04/08/2024 following some reported complications following surgery. She had an upper endoscopy done 02/19/2024 with findings of antral ulcer, small distal esophageal varices with no stigmata of recent bleeding, and mild to moderate gastritis. Currently she is not on any diuretics. Gastroenterology was consulted for cirrhosis. She has leukocytosis on admission. Admitting labs WBC 20.2 hemoglobin 10.4 platelet count 112,000 INR 1.5 sodium 128 potassium 3.5 BUN 25 creatinine 1.16 total bilirubin 3.5 AST 46 ALT 18 alkaline phosphatase 218 ammonia 96 amylase less than 30 lipase 127 She denies any fevers or chills, states she came in because of abdominal distention. She still has some leaking from previous surgical site. 05/26/2024 Patient seen and examined in the ICU. She was transferred from the floor yesterday after becoming hypotensive status post her paracentesis with 11 L of fluid removed. Patient also started having black stools throughout the night. Hemoglobin was 7.2 this morning. Potassium and yesterday evening was 2.6 potassium was replaced with repeat potassium at 3.0. BUN 40 creatinine 1.2 patient is very lethargic. Objective - Vital Signs Vital signs: Vital Signs Temp 98.8 F 05/26/24 04:00 Pulse 75 05/26/24 07:00 Resp 14 05/26/24 07:00 BP 98/52 05/26/24 07:00 Pulse Ox 97 05/26/24 07:00 FiO2 Intake & Output 05/25/24 05/26/24 05/26/24 18:59 06:59 18:59 Intake Total 476 2744.154 Output Total 860 Balance 476 1884.154 Weight 130.3 kg Intake: IV 2110 Magnesium Sulfate-D5w Pmx 100 1 gm In Dextrose/Water 1 100ml.bag @ 100 mls/hr IVPB ONCE ONE Rx#: [id number] Potassium Chloride 10 meq 400 In Water For Injection 1 100ml.bag @ 100 mls/hr IVPB Q1HR [facility] Rx#: [id number] Sodium Chloride 0.9% 1, 510 000 ml @ 150 mls/hr IV . Q6H40M [facility] Rx#:[id number] Sodium Chloride 0.9% 1, 1000 000 ml @ 999 mls/hr IV . Q1H1M ONE Rx#:[id number] Sodium Ferric Gluconat- 100 Sucrose 125 mg In Sodium Chloride 0.9% 100 ml @ 100 mls/hr IVPB HS [facility] Rx #:[id number] Intake, IV Titration 14.154 Amount Norepinephrine 4 mg In 14.154 Sodium Chloride 0.9% 250 ml @ 0.03 MCG/KG/MIN 13. 48 mls/hr IV .[id number] [facility] Rx#:[id number] Oral 476 Blood Product 620 Rc As-1 Unit 310 [id number] Output: Urine 860 Other: Voiding Method Indwelling Catheter # Voids 1 # Bowel Movements 1 2 - Exam General appearance: The patient is lethargic, arousable. HET: Head is normocephalic and atraumatic. Conjunctiva pink. Sclera anicteric. Neck: Supple without lymphadenopathy. Abdomen: Soft, nontender, ascites. Extremities: Normal skin color and turgor. No pedal edema Skin: No rashes, no jaundice Neurological: Patient is lethargic but arousable. - Labs CBC & Chem 7: 05/26/24 11:34 05/26/24 11:34 Labs: Abnormal Lab Results - Last 24 Hours (Table) 05/25/24 05/25/24 05/25/24 Range/Units 11:50 11:50 11:50 WBC 15.5 H (3.8-10.6) k/uL RBC 2.29 L (3.80-5.40) m/uL Hgb 7.3 L D (11.4-16.0) gm/dL Hct 22.5 L (34.0-46.0) % MCV (80.0-100.0) fL MCH (27.0-32.0) pg RDW 21.5 H (11.5-15.5) % Plt Count 90 L (150-450) k/uL Immature Gran # (0.00-0.04) X 10*3/uL Neutrophils # 11.4 H (1.3-7.7) k/uL Eosinophils # (0.04-0.35) X 10*3/uL NRBC/100 WBC Diff (0.00-0.01) X 10*3/uL Immature Plt Fraction (1.1-6.1) % Sodium 127 L (137-145) mmol/L Potassium 3.1 L (3.5-5.1) mmol/L BUN 41 H (7-17) mg/dL Creatinine 1.31 H (0.52-1.04) mg/dL Glucose 100 H (74-99) mg/dL Calcium 7.3 L (8.4-10.2) mg/dL Total Bilirubin 2.1 H (0.2-1.3) mg/dL AST 44 H (14-36) U/L Alkaline Phosphatase 171 H (38-126) U/L Ammonia 43 H (<30) umol/L Total Protein 3.8 L (6.3-8.2) g/dL Albumin 1.7 L (3.5-5.0) g/dL Stool Occult Blood (Negative) Crossmatch 05/25/24 05/25/24 05/25/24 Range/Units 19:30 19:54 21:37 WBC 15.1 H (3.8-10.6) k/uL RBC 2.18 L (3.80-5.40) m/uL Hgb 7.0 L (11.4-16.0) gm/dL Hct 22.0 L (34.0-46.0) % MCV 100.7 H (80.0-100.0) fL MCH (27.0-32.0) pg RDW 21.8 H (11.5-15.5) % Plt Count 86 L (150-450) k/uL Immature Gran # (0.00-0.04) X 10*3/uL Neutrophils # 10.5 H (1.3-7.7) k/uL Eosinophils # (0.04-0.35) X 10*3/uL NRBC/100 WBC Diff (0.00-0.01) X 10*3/uL Immature Plt Fraction (1.1-6.1) % Sodium (137-145) mmol/L Potassium (3.5-5.1) mmol/L BUN (7-17) mg/dL Creatinine (0.52-1.04) mg/dL Glucose (74-99) mg/dL Calcium (8.4-10.2) mg/dL Total Bilirubin (0.2-1.3) mg/dL AST (14-36) U/L Alkaline Phosphatase (38-126) U/L Ammonia (<30) umol/L Total Protein (6.3-8.2) g/dL Albumin (3.5-5.0) g/dL Stool Occult Blood Positive H (Negative) Crossmatch See Detail 05/25/24 05/26/24 Range/Units 23:46 05:40 WBC 13.52 H (3.8-10.6) k/uL RBC 2.22 L (3.80-5.40) m/uL Hgb 7.2 L (11.4-16.0) gm/dL Hct 21.8 L (34.0-46.0) % MCV 98.2 H (80.0-100.0) fL MCH 32.4 H (27.0-32.0) pg RDW 21.2 H (11.5-15.5) % Plt Count 62 L (150-450) k/uL Immature Gran # 0.11 H (0.00-0.04) X 10*3/uL Neutrophils # 9.71 H (1.3-7.7) k/uL Eosinophils # 0.57 H (0.04-0.35) X 10*3/uL NRBC/100 WBC Diff 0.02 H (0.00-0.01) X 10*3/uL Immature Plt Fraction 7.3 H (1.1-6.1) % Sodium 127 L (137-145) mmol/L Potassium 2.6 L* (3.5-5.1) mmol/L BUN 42 H (7-17) mg/dL Creatinine 1.32 H (0.52-1.04) mg/dL Glucose (74-99) mg/dL Calcium 7.3 L (8.4-10.2) mg/dL Total Bilirubin (0.2-1.3) mg/dL AST (14-36) U/L Alkaline Phosphatase (38-126) U/L Ammonia (<30) umol/L Total Protein (6.3-8.2) g/dL Albumin (3.5-5.0) g/dL Stool Occult Blood (Negative) Crossmatch Microbiology - Last 24 Hours (Table) 05/25/24 11:35 Gram Stain - Preliminary Ascites Fluid Assessment and Plan (1) Alcoholic cirrhosis of liver with ascites Narrative/Plan: 44-year-old female well-known to gastroenterology with multiple hospitalizations for alcoholic cirrhosis of the liver with ascites. She has been hyponatremic on previous hospitalizations. States she was told by her PCP not to take diuretics on discharge. She was not taking any diuretics, not taking her lactulose as she did not pecan picker her medication and returned with abdominal distention with elevated ammonia level. Patient is with decompensated cirrhosis of the liver. She has not had any outpatient follow-up with specialist. She is presenting with leukocytosis and need to suspect possible spontaneous bacterial peritonitis. Paracentesis ordered, will get cell count and fluid cultures. Will start IV antibiotics. Current Visit: Yes Status: Acute Code(s): K70.31 - ALCOHOLIC CIRRHOSIS OF L IVER WITH ASCITES SNOMED Code(s): 064176943 (2) Leukocytosis Current Visit: Yes Status: Acute Code(s): D72.829 - ELEVATED WHITE BLOOD CELL COUNT, UNSPECIFIED SNOMED Code(s): 827465368 (3) Swelling of lower extremity Current Visit: Yes Status: Acute Code(s): M79.89 - OTHER SPECIFIED SOFT TISSUE DISORDERS SNOMED Code(s): 911874603 (4) Thrombocytopenia Current Visit: Yes Status: Acute Code(s): D69.6 - THROMBOCYTOPENIA, UNSPECIF IED SNOMED Code(s): 278064858 (5) Anemia Current Visit: No Status: Acute Code(s): D64.9 - ANEMIA, UNSPECIFIED SNOMED Code(s): 346781828 (6) Hyponatremia Current Visit: No Status: Acute Code(s): E87.1 - HYPO-OSMOLALITY AND HYPONATREMIA SNOMED Code(s): 51773394 (7) Melena Current Visit: No Status: Acute Code(s): K92.1 - MELENA SNOMED Code(s): 9474770 Plan: 1. Continue symptomatic and supportive care 2. Continue ICU management 3. Replace potassium per protocol 4. Protonix 40 mg daily for GI prophylaxis 5. Daily CBC, CMP, ammonia 6. Continue IV antibiotics 7. Will plan for EGD this afternoon 8. Transfuse for hemoglobin less than 7 Thank you for this consultation, we will continue to follow. Dr. Rachel Cuenca I agree with the dictator's note, documented as a scribe by Katiuska Fan.
--- NOTE | 2024-05-26 14:11 | P.GSCN ---
History of Present Illness Consult date: 05/26/24 History of present illness: CHIEF COMPLAINT: Abdominal pain HISTORY OF PRESENT ILLNESS: This is a 44-year-old female who presented with abdominal pain and abdominal distention. Patient with a known history of liver cirrhosis had undergone 2 paracentesis during her last hospitalization. She was just discharged last Thursday. Patient did have 11 L ascites fluid removed from her paracentesis. She did receive albumin she did have melanotic stools with a drop in her hemoglobin from 10.4 down to 7.2. She did receive 1 unit of packed RBCs. She is currently in the ICU. GI service is following and patient scheduled for EGD today with Dr. Cuenca. Patient with a known history of peptic ulcer disease. Patient had laparoscopic cholecystectomy on 03/21/2024. Surgical service has been consulted about possible removal of sutures. Sutures were not removed in last hospitalization due to the amount of ascites that was still draining from the old SALVADOR drain site on the right side of the abdomen. Output through that area has markedly diminished. There is nothing currently in the ostomy bag that is over that old SALVADOR drain site. Patient seen and examined with Dr. Corrigan PAST MEDICAL HISTORY: ERD/Reflux, Liver Disease PAST SURGICAL HISTORY: Cholecystectomy MEDICATIONS: See below ALLERGIES: See below SOCIAL HISTORY: No illicit drug use. History of daily alcohol use REVIEW OF SYSTEMS: CONSTITUTIONAL: Denies fever or chills. HEENT: Denies blurred vision, vision changes, or eye pain. Denies hemoptysis CARDIOVASCULAR: Denies chest pain or pressure. RESPIRATORY: No shortness of breath. GASTROINTESTINAL: See HPI for pertinent findings HEMATOLOGIC: Denies bleeding disorders. GENITOURINARY: Denies any blood in urine or increased urinary frequency. SKIN: Denies pruitis. Denies rash. PHYSICAL EXAM: VITAL SIGNS: Reviewed GENERAL: Well-developed in no acute distress. HEENT: No sclera icterus. Extraocular movements grossly intact. Moist buccal mucosa. Head is atraumatic, normocephalic. No nasal drainage. ABDOMEN: Soft. Distended. Patient has sutures in the umbilicus area. No drainage. Sutures on the right side of the abdomen at old SALVADOR drain site no drainage. NEUROLOGIC: Alert and oriented. Cranial nerves II through XII grossly intact. LABORATORY DATA: WBC 15 down to 11.5 Hgb 7.8 platelets 64 Sodium is 133 potassium 3.0 creatinine 1.21 IMAGING: ASSESSMENT: 1. Alcohol cirrhosis of the liver with large amount of abdominal ascites status post paracentesis with 11 L removed 2. Acute GI bleed with melanotic stools scheduled for EGD with GI service 3. Acute blood loss anemia due to GI bleed 4. Hyponatremia and hypokalemia 5. Thrombocytopenia PLAN: -Okay to remove sutures from the umbilicus and old SALVADOR drain site on the right side of the abdomen. No ascites fluid drainage from the umbilicus and barely any drainage noted the right side of the abdomen where the old SALVADOR drain was located -Continue GI workup -Continue medical management of ascites fluid Physician Derrick Boat Operator note has been reviewed by physician. Signing provider agrees with the documented findings, assessment, and plan of care. Past Medical History Past Medical History: GERD/Reflux, Liver Disease Additional Past Medical History / Comment(s): retains fluid,anemia,cirrohis of liver non alcoholic, occ bloody stool, ulcer, bipolar, low sodium levels History of Any Multi-Drug Resistant Organisms: VRE Year Discovered:: 04/20/24 MDRO Source:: urine Past Surgical History: Cholecystectomy, EPS Additional Past Surgical History / Comment(s): has had 4 scopes, paracentesis unable to get any fluid out at the time, paracentesis Past Anesthesia/Blood Transfusion Reactions: No Reported Reaction Additional Past Anesthesia/Blood Transfusion Reaction / Comm: 3 units of blood transfused in around february 03. Past Psychological History: Anxiety, Bipolar Smoking Status: Former smoker Past Alcohol Use History: Abuse Additional Past Alcohol Use History / Comment(s): pt reports previously drinking 1 pint of liquor per day. Pt reports last drink 10 months ago Past Drug Use History: None Reported Medications and Allergies Home Medications Medication Instructions Recorded Confirmed Type Pantoprazole [Protonix] 40 mg PO DAILY 03/20/23 05/24/24 History QUEtiapine [SEROquel] 100 mg PO HS 03/20/23 05/24/24 History Budesonide-Formot 160-4.5 Mcg 2 puff INHALATION RT-BID 30 Days 02/24/24 05/24/24 Rx [Symbicort 160-4.5 Mcg Inhaler] #1 each Dapagliflozin Propanediol [Farxiga] 5 mg PO DAILY 90 Days #90 tab 04/08/24 05/24/24 Rx Sodium Bicarbonate Tab 650 mg PO DAILY 90 Days #90 tab 04/08/24 05/24/24 Rx Gabapentin [Neurontin] 300 mg PO TID 04/16/24 05/24/24 History Ipratropium-Albuterol Nebulize 3 ml INHALATION RT-TID 04/16/24 05/24/24 History [Duoneb 0.5 mg-3 mg/3 ml Soln] Tiotropium 2.5 Mcg/Puff [Spiriva 1 puff INHALATION RT-DAILY 04/16/24 05/24/24 History Respimat 2.5 Mcg] oxyCODONE HCL [OxyIR] 5 mg PO Q6HR PRN 3 Days #10 tab 04/28/24 05/24/24 Rx Midodrine HCl [ProAmatine] 10 mg PO QID@06,,,18 05/03/24 05/24/24 History Lactulose [Cephulac] 30 gm PO TID 30 Days #90 ml 05/16/24 05/24/24 Rx Magnesium Oxide [Mag-Ox] 400 mg PO DAILY 30 Days #30 tab 05/16/24 05/24/24 Rx Potassium Chloride ER [K-Dur 20] 20 meq PO BID 30 Days #60 tab 05/16/24 05/24/24 Rx Doxycycline Monohydrate 100 mg PO DIRECTED 05/24/24 05/24/24 History Allergies Allergy/AdvReac Type Severity Reaction Status Date / Time Penicillins Allergy Anaphylaxis Verified 05/24/24 19:58 Surgical - Exam Vital Signs Temp Pulse Resp BP Pulse Ox 98.3 F 119 H 20 113/65 93 L 05/24/24 15:15 05/24/24 15:15 05/24/24 15:15 05/24/24 15:15 05/24/24 15:15 Results - Labs 05/26/24 11:34 05/26/24 11:34 Abnormal Lab Results - Last 24 Hours (Table) 05/25/24 05/25/24 05/25/24 Range/Units 11:50 11:50 11:50 WBC 15.5 H (3.8-10.6) k/uL RBC 2.29 L (3.80-5.40) m/uL Hgb 7.3 L D (11.4-16.0) gm/dL Hct 22.5 L (34.0-46.0) % MCV (80.0-100.0) fL MCH (27.0-32.0) pg RDW 21.5 H (11.5-15.5) % Plt Count 90 L (150-450) k/uL Immature Gran # (0.00-0.04) X 10*3/uL Neutrophils # 11.4 H (1.3-7.7) k/uL Eosinophils # (0.04-0.35) X 10*3/uL NRBC/100 WBC Diff (0.00-0.01) X 10*3/uL Immature Plt Fraction (1.1-6.1) % Sodium 127 L (137-145) mmol/L Potassium 3.1 L (3.5-5.1) mmol/L BUN 41 H (7-17) mg/dL Creatinine 1.31 H (0.52-1.04) mg/dL Glucose 100 H (74-99) mg/dL Calcium 7.3 L (8.4-10.2) mg/dL Total Bilirubin 2.1 H (0.2-1.3) mg/dL AST 44 H (14-36) U/L Alkaline Phosphatase 171 H (38-126) U/L Ammonia 43 H (<30) umol/L Total Protein 3.8 L (6.3-8.2) g/dL Albumin 1.7 L (3.5-5.0) g/dL Stool Occult Blood (Negative) Crossmatch 05/25/24 05/25/24 05/25/24 Range/Units 19:30 19:54 21:37 WBC 15.1 H (3.8-10.6) k/uL RBC 2.18 L (3.80-5.40) m/uL Hgb 7.0 L (11.4-16.0) gm/dL Hct 22.0 L (34.0-46.0) % MCV 100.7 H (80.0-100.0) fL MCH (27.0-32.0) pg RDW 21.8 H (11.5-15.5) % Plt Count 86 L (150-450) k/uL Immature Gran # (0.00-0.04) X 10*3/uL Neutrophils # 10.5 H (1.3-7.7) k/uL Eosinophils # (0.04-0.35) X 10*3/uL NRBC/100 WBC Diff (0.00-0.01) X 10*3/uL Immature Plt Fraction (1.1-6.1) % Sodium (137-145) mmol/L Potassium (3.5-5.1) mmol/L BUN (7-17) mg/dL Creatinine (0.52-1.04) mg/dL Glucose (74-99) mg/dL Calcium (8.4-10.2) mg/dL Total Bilirubin (0.2-1.3) mg/dL AST (14-36) U/L Alkaline Phosphatase (38-126) U/L Ammonia (<30) umol/L Total Protein (6.3-8.2) g/dL Albumin (3.5-5.0) g/dL Stool Occult Blood Positive H (Negative) Crossmatch See Detail 05/25/24 05/26/24 Range/Units 23:46 05:40 WBC 13.52 H (3.8-10.6) k/uL RBC 2.22 L (3.80-5.40) m/uL Hgb 7.2 L (11.4-16.0) gm/dL Hct 21.8 L (34.0-46.0) % MCV 98.2 H (80.0-100.0) fL MCH 32.4 H (27.0-32.0) pg RDW 21.2 H (11.5-15.5) % Plt Count 62 L (150-450) k/uL Immature Gran # 0.11 H (0.00-0.04) X 10*3/uL Neutrophils # 9.71 H (1.3-7.7) k/uL Eosinophils # 0.57 H (0.04-0.35) X 10*3/uL NRBC/100 WBC Diff 0.02 H (0.00-0.01) X 10*3/uL Immature Plt Fraction 7.3 H (1.1-6.1) % Sodium 127 L (137-145) mmol/L Potassium 2.6 L* (3.5-5.1) mmol/L BUN 42 H (7-17) mg/dL Creatinine 1.32 H (0.52-1.04) mg/dL Glucose (74-99) mg/dL Calcium 7.3 L (8.4-10.2) mg/dL Total Bilirubin (0.2-1.3) mg/dL AST (14-36) U/L Alkaline Phosphatase (38-126) U/L Ammonia (<30) umol/L Total Protein (6.3-8.2) g/dL Albumin (3.5-5.0) g/dL Stool Occult Blood (Negative) Crossmatch Microbiology - Last 24 Hours (Table) 05/25/24 11:35 Gram Stain - Preliminary Ascites Fluid Diabetes panel 05/25/24 05/25/24 Range/Units 11:50 23:46 Sodium 127 L 127 L (137-145) mmol/L Potassium 3.1 L 2.6 L* (3.5-5.1) mmol/L Chloride 99 103 (98-107) mmol/L Carbon Dioxide 22 22 (22-30) mmol/L BUN 41 H 42 H (7-17) mg/dL Creatinine 1.31 H 1.32 H (0.52-1.04) mg/dL Glucose 100 H 83 (74-99) mg/dL Calcium 7.3 L 7.3 L (8.4-10.2) mg/dL AST 44 H (14-36) U/L ALT 17 (4-34) U/L Alkaline Phosphatase 171 H (38-126) U/L Total Protein 3.8 L (6.3-8.2) g/dL Albumin 1.7 L (3.5-5.0) g/dL Calcium panel 05/25/24 05/25/24 Range/Units 11:50 23:46 Calcium 7.3 L 7.3 L (8.4-10.2) mg/dL Phosphorus 2.6 (2.5-4.5) mg/dL Albumin 1.7 L (3.5-5.0) g/dL Pituitary panel 05/25/24 05/25/24 Range/Units 11:50 23:46 Sodium 127 L 127 L (137-145) mmol/L Potassium 3.1 L 2.6 L* (3.5-5.1) mmol/L Chloride 99 103 (98-107) mmol/L Carbon Dioxide 22 22 (22-30) mmol/L BUN 41 H 42 H (7-17) mg/dL Creatinine 1.31 H 1.32 H (0.52-1.04) mg/dL Glucose 100 H 83 (74-99) mg/dL Calcium 7.3 L 7.3 L (8.4-10.2) mg/dL Adrenal panel 05/25/24 05/25/24 Range/Units 11:50 23:46 Sodium 127 L 127 L (137-145) mmol/L Potassium 3.1 L 2.6 L* (3.5-5.1) mmol/L Chloride 99 103 (98-107) mmol/L Carbon Dioxide 22 22 (22-30) mmol/L BUN 41 H 42 H (7-17) mg/dL Creatinine 1.31 H 1.32 H (0.52-1.04) mg/dL Glucose 100 H 83 (74-99) mg/dL Calcium 7.3 L 7.3 L (8.4-10.2) mg/dL Total Bilirubin 2.1 H (0.2-1.3) mg/dL AST 44 H (14-36) U/L ALT 17 (4-34) U/L Alkaline Phosphatase 171 H (38-126) U/L Total Protein 3.8 L (6.3-8.2) g/dL Albumin 1.7 L (3.5-5.0) g/dL
[2024-05-26] MEDS ORDERED: PROPOFOL 10 MG/ML 20 ML VIAL IV ONE (15:35)
[2024-05-26] MEDS: IV FLUID CONTINUATION 1,000 ML IV ONE (15:45)
--- NOTE | 2024-05-26 15:55 | P.PCN ---
Date of Procedure: 05/26/24 Procedure(s) Performed: BRIEF HISTORY: Patient is a 44-year-old, pleasant, white female with history of alcoholic cirrhosis of the liver diagnosed 2 years ago. She was admitted to hospital with worsening ascites and lower extremity swelling. She also was noted to have mild hepatic encephalopathy. While in the hospital she developed 2 episodes of black tarry stools last night and became somewhat hypotensive and was transferred to the intensive care unit. Patient underwent large-volume paracentesis yesterday and 12 L was removed and after that she has been hypotensive throughout the day and was given IV albumin infusions. Hemoglobin dropped from 10 to 7.5 g/dL. She is current for an upper endoscopy in the ICU at the bedside.. PROCEDURE PERFORMED: Esophagogastroduodenoscopy. PREOPERATIVE DIAGNOSIS: Black tarry stools. IV sedation per anesthesia. PROCEDURE: After informed consent was obtained, the patient was brought into the endoscopy unit. IV sedation was administered by Anesthesia under continuous monitoring. Initially the Olympus GIF-140 video endoscope was inserted into the mouth. Esophagus intubated without any difficulty. It was gradually advanced into the stomach and duodenum and carefully examined. The bulb had mild duodenitis and the second part of the duodenum appeared normal. No active bleeding or old blood noted in the stomach or duodenum. The scope at this time was withdrawn to the stomach, adequately insufflated with air, and upon careful examination, mucosa of the antrum, body, cardia and the fundus appeared normal. No gastric varices identified. The scope was then withdrawn into the esophagus. Mild hiatal hernia noted. The GE junction was located at 39 cm from the incisors. There were 2 superficial erosions at the GE junction consistent with LA grade B reflux esophagitis. There is a very small distal esophageal varices identified with no stigmata of recent bleeding or active bleeding noted. The rest of the esophagus appeared normal. The patient tolerated the procedure well. IMPRESSION: 1. Very small distal esophageal varices with no stigmata of active bleeding or recent bleeding. 2. Erosions in the distal esophagus consistent with LA grade B reflux esophagitis 3. No evidence of gastric varices 4. Small hiatal hernia 5. Mild duodenitis. RECOMMENDATIONS: The findings of this examination were discussed with the patient. She will be continued Protonix 40 mg twice daily. Start on clear liquids and advance as tolerated. Monitor CBC daily..
[2024-05-26 17:50] LABS: Glucose,Whole Blood 164 mg/dL (70-110)
[2024-05-26 23:50] LABS: Glucose,Whole Blood 102 mg/dL (70-110)
[2024-05-27] MEDS: SALINE IVPB SCH (03:40)
[2024-05-27] MEDS: POTASSIUM CHLORIDE IVPB SCH (03:40)
[2024-05-27 05:32] LABS: Glucose,Whole Blood 96 mg/dL (70-110)
[2024-05-27 07:49] LABS: INR 1.8 (<1.2); Prothrombin Time 18.6 sec (10.0-12.5)
[2024-05-27 08:22] LABS: ALT 14 U/L (4-34); AST 32 U/L (14-36); African American GFR (CKD) 67 (>60 ml/min/1.73 sqM); Albumin 1.8 g/dL (3.5-5.0); Alkaline Phosphatase 174 U/L (38-126); Anion Gap 4 mmol/L; Blood Urea Nitrogen 30 mg/dL (7-17); Calcium 7.3 mg/dL (8.4-10.2); Carbon Dioxide 21 mmol/L (22-30); Chloride 105 mmol/L (98-107); Glucose 85 mg/dL (74-99); Non-African American GFR(CKD) 58 (>60 ml/min/1.73 sqM); Potassium 3.8 mmol/L (3.5-5.1); Sodium 130 mmol/L (137-145); Total Bilirubin 1.9 mg/dL (0.2-1.3); Total Protein 3.8 g/dL (6.3-8.2)
[2024-05-27 08:55] LABS: Anisocytosis Moderate; Basophils % (A) 0 %; Eosinophils # (A) 0.7 k/uL (0-0.7); Eosinophils % (A) 6 %; HCT 26.4 % (34.0-46.0); HGB 8.6 gm/dL (11.4-16.0); Hypochromasia Slight; Lymphocytes # (A) 1.6 k/uL (1.0-4.8); Lymphocytes % (A) 14 %; MCH 32.6 pg (25.0-35.0); MCHC 32.5 g/dL (31.0-37.0); MCV 100.3 fL (80.0-100.0); Macrocytosis Moderate; Mean Platelet Volume 12.1; Monocytes # (A) 0.4 k/uL (0-1.0); Monocytes % (A) 4 %; Neutrophils # (A) 8.4 k/uL (1.3-7.7); Neutrophils % (A) 74 %; Poikilocytosis Slight; RBC 2.63 m/uL (3.80-5.40); RDW 22.4 % (11.5-15.5); WBC 11.4 k/uL (3.8-10.6)
[2024-05-27] MEDS: ALBUMIN HUMAN 25% 50 ML in EMPTY BAG 1 BAG IVPB SCH ×2 (09:52→20:00)
[2024-05-27 09:57] LABS: Platelet Count 56 k/uL (150-450); Polychromasia Present
[2024-05-27 10:01] LABS: Crenated RBC Present
--- NOTE | 2024-05-27 10:21 | P.NPCON ---
History of Present Illness - Reason for Consult chronic renal failure - History of Present Illness Reason for consultation: Chronic kidney disease History of present illness: Patient is a 44-year-old female seen in renal consultation for chronic kidney disease. Patient has chronic kidney disease stage IIIa with baseline creatinine 1.3-1.5 secondary to hepatorenal syndrome. GFR is currently at baseline. Patient came to the hospital on May 24, 2024 due to abdominal pain and distention. She underwent paracentesis May 25, 2024 with 11 L drained. Patient states she was taking Lasix and spironolactone outpatient but was advised by her primary care physician to stop taking those medications. Patient states she subsequently swelled up and came to the hospital. Patient was also having loose bowel movements. She also states that the stools were black. She did receive a unit of blood this admission. She underwent EGD this admission which showed distal esophageal varices with no active bleeding as well as reflux esophagitis. She denies use of nonsteroidals. Nonoliguric. Currently receiving IV fluids. Currently on Levophed. Vital signs are stable. On Levophed. General: No acute distress. HEENT: Head exam is unremarkable. LUNGS: No audible rhonchi or wheezes. HEART: Rate and Rhythm are regular. ABDOMEN: Obese, distention noted. EXTREMITITES: Lower extremities wrapped. 2+ edema. Past Medical History Past Medical History: GERD/Reflux, Liver Disease Additional Past Medical History / Comment(s): retains fluid,anemia,cirrohis of liver non alcoholic, occ bloody stool, ulcer, bipolar, low sodium levels History of Any Multi-Drug Resistant Organisms: VRE Date of last positivie culture/infection: 04/20/24 MDRO Source:: urine Past Surgical History: Cholecystectomy, EPS Additional Past Surgical History / Comment(s): has had 4 scopes, paracentesis unable to get any fluid out at the time, paracentesis Past Anesthesia/Blood Transfusion Reactions: No Reported Reaction Additional Past Anesthesia/Blood Transfusion Reaction / Comment(s): 3 units of blood transfused in around february 03. Past Psychological History: Anxiety, Bipolar Smoking Status: Former smoker Past Alcohol Use History: Abuse Additional Past Alcohol Use History / Comment(s): pt reports previously drinking 1 pint of liquor per day. Pt reports last drink 10 months ago Past Drug Use History: None Reported Medications and Allergies Home Medications Medication Instructions Recorded Confirmed Type Pantoprazole [Protonix] 40 mg PO DAILY 03/20/23 05/24/24 History QUEtiapine [SEROquel] 100 mg PO HS 03/20/23 05/24/24 History Budesonide-Formot 160-4.5 Mcg 2 puff INHALATION RT-BID 30 Days 02/24/24 05/24/24 Rx [Symbicort 160-4.5 Mcg Inhaler] #1 each Dapagliflozin Propanediol [Farxiga] 5 mg PO DAILY 90 Days #90 tab 04/08/24 05/24/24 Rx Sodium Bicarbonate Tab 650 mg PO DAILY 90 Days #90 tab 04/08/24 05/24/24 Rx Gabapentin [Neurontin] 300 mg PO TID 04/16/24 05/24/24 History Ipratropium-Albuterol Nebulize 3 ml INHALATION RT-TID 04/16/24 05/24/24 History [Duoneb 0.5 mg-3 mg/3 ml Soln] Tiotropium 2.5 Mcg/Puff [Spiriva 1 puff INHALATION RT-DAILY 04/16/24 05/24/24 History Respimat 2.5 Mcg] oxyCODONE HCL [OxyIR] 5 mg PO Q6HR PRN 3 Days #10 tab 04/28/24 05/24/24 Rx Midodrine HCl [ProAmatine] 10 mg PO QID@06,10,,18 05/03/24 05/24/24 History Lactulose [Cephulac] 30 gm PO TID 30 Days #90 ml 05/16/24 05/24/24 Rx Magnesium Oxide [Mag-Ox] 400 mg PO DAILY 30 Days #30 tab 05/16/24 05/24/24 Rx Potassium Chloride ER [K-Dur 20] 20 meq PO BID 30 Days #60 tab 05/16/24 05/24/24 Rx Doxycycline Monohydrate 100 mg PO DIRECTED 05/24/24 05/24/24 History Allergies Allergy/AdvReac Type Severity Reaction Status Date / Time Penicillins Allergy Anaphylaxis Verified 05/24/24 19:58 Physical Exam Vitals: Vital Signs Temp Pulse Resp BP Pulse Ox 05/27/24 09:33 74 05/27/24 09:23 71 97 05/27/24 08:00 98.1 F 75 10 L 89/44 97 05/27/24 07:45 72 13 73/51 96 05/27/24 07:30 75 29 H 98/49 96 05/27/24 07:15 73 20 100/47 94 L 05/27/24 07:00 72 15 93/61 95 05/27/24 06:45 71 19 91/50 96 05/27/24 06:30 68 11 L 91/64 96 05/27/24 06:15 71 21 101/56 96 05/27/24 06:00 69 12 101/56 97 05/27/24 05:45 70 11 L 100/55 96 05/27/24 05:30 70 12 107/58 98 05/27/24 05:15 68 19 106/57 97 05/27/24 05:00 73 15 107/59 97 05/27/24 04:45 78 17 99/54 92 L 05/27/24 04:30 68 16 104/47 95 05/27/24 04:15 67 12 92/46 96 05/27/24 04:00 98.4 F 70 17 108/59 94 L 05/27/24 03:45 70 14 103/46 96 05/27/24 03:30 73 15 91/48 94 L 05/27/24 03:15 67 12 89/53 95 05/27/24 03:00 67 12 87/45 96 05/27/24 02:45 67 13 81/44 93 L 05/27/24 02:30 68 14 81/47 93 L 05/27/24 02:15 67 14 85/40 94 L 05/27/24 02:00 67 13 83/48 94 L 05/27/24 01:45 69 12 91/47 96 05/27/24 01:30 68 11 L 88/49 98 05/27/24 01:15 68 12 78/53 99 05/27/24 01:00 69 13 85/48 96 05/27/24 00:45 68 12 98/55 96 05/27/24 00:30 69 11 L 90/49 98 05/27/24 00:15 70 11 L 77/43 95 05/27/24 00:00 98.7 F 70 13 86/46 95 05/26/24 23:45 70 11 L 81/46 98 05/26/24 23:39 71 14 80/45 98 10/24/24 23:30 72 13 85/45 96 05/26/24 23:15 75 13 72/43 96 05/26/24 23:00 74 12 75/49 95 05/26/24 22:45 73 13 83/40 93 L 05/26/24 22:30 73 14 65/40 94 L 05/26/24 22:15 73 13 67/37 96 05/26/24 22:00 72 13 87/41 98 05/26/24 21:45 72 12 99 05/26/24 21:30 73 12 90/50 99 05/26/24 21:15 77 12 99 05/26/24 21:00 86 11 L 105/52 97 05/26/24 20:45 89 15 94/50 98 05/26/24 20:30 89 18 97/41 100 05/26/24 20:19 82 18 05/26/24 20:15 82 17 110/46 99 05/26/24 20:11 84 18 05/26/24 20:00 98.8 F 82 16 94/45 100 05/26/24 19:45 80 15 102/54 100 05/26/24 19:30 84 18 100/54 98 05/26/24 19:15 84 18 103/56 97 05/26/24 19:00 84 15 95/63 96 05/26/24 18:45 84 24 90/53 97 05/26/24 18:30 84 29 H 108/51 100 05/26/24 18:15 85 15 109/53 100 05/26/24 18:00 86 15 112/54 100 05/26/24 17:45 86 16 123/52 100 05/26/24 17:30 87 17 121/56 99 05/26/24 17:15 88 18 119/63 98 05/26/24 17:00 84 10 L 70/27 99 05/26/24 16:45 87 13 122/101 100 05/26/24 16:30 85 13 110/60 99 05/26/24 16:15 81 13 103/54 98 05/26/24 16:00 79 14 101/49 98 05/26/24 15:45 79 11 L 106/48 98 05/26/24 15:30 76 8 L 101/49 96 05/26/24 15:15 78 11 L 98/46 98 05/26/24 15:00 77 14 105/63 98 05/26/24 14:45 78 14 97/47 97 05/26/24 14:30 79 13 91/48 96 05/26/24 14:15 77 9 L 93/43 98 05/26/24 14:00 77 13 88/48 98 05/26/24 13:45 75 11 L 66/47 98 05/26/24 13:30 75 13 93/39 98 05/26/24 13:15 77 14 85/46 97 05/26/24 13:00 78 13 105/49 98 05/26/24 12:45 80 15 107/53 98 05/26/24 12:30 81 10 L 101/59 99 05/26/24 12:15 80 12 107/51 99 05/26/24 12:05 78 05/26/24 12:00 98.1 F 75 12 78/43 100 05/26/24 11:56 76 05/26/24 11:45 76 13 92/46 97 05/26/24 11:30 76 12 91/52 95 05/26/24 11:15 77 12 96/47 98 05/26/24 11:00 77 10 L 91/49 98 05/26/24 10:45 77 16 94/48 98 05/26/24 10:30 77 13 108/56 96 05/26/24 10:15 79 14 101/53 97 Intake and Output 05/26/24 05/27/24 05/27/24 22:59 06:59 14:59 Intake Total 2930.131 2204.202 255.442 Output Total 580 620 60 Balance 2350.131 1584.202 195.442 Intake: IV 1710 1550 150 Potassium Chloride 10 meq 600 200 In Water For Injection 1 100ml.bag @ 100 mls/hr IVPB Q1HR [facility] Rx#: [id number] Sodium Chloride 0.9% 1, 810 1350 150 000 ml @ 150 mls/hr IV . Q6H40M [facility] Rx#:[id number] Sodium Ferric Gluconat- 100 Sucrose 125 mg In Sodium Chloride 0.9% 100 ml @ 100 mls/hr IVPB HS [facility] Rx #:[id number] Intake, IV Titration 80.131 114.202 105.442 Amount Norepinephrine 4 mg In 80.131 114.202 105.442 Sodium Chloride 0.9% 250 ml @ 0.03 MCG/KG/MIN 13. 48 mls/hr IV .[id number] REPLACED BY [facility] Rx#:[id number] Oral 1140 540 Output: Urine 580 620 60 Other: Voiding Method Indwelling Catheter Indwelling Catheter Indwelling Catheter Weight 130.3 kg Results - Lab Results Most recent lab results Calcium 7.3 mg/dL (8.4-10.2) L 05/27/24 06:58 Phosphorus 2.6 mg/dL (2.5-4.5) 05/25/24 23:46 Magnesium 2.0 mg/dL (1.6-2.3) 05/27/24 06:58 05/27/24 07:55 05/27/24 06:58 Assessment and Plan Plan: Assessment: 1. Chronic kidney disease stage IIIa with baseline creatinine 1.3-1.5 secondary to hepatorenal syndrome. GFR at baseline. 2. Hypervolemic hyponatremia. 3. Anemia status post blood transfusion this admission. EGD done this admission showed distal esophageal varices and reflux esophagitis. 4. Volume overload with ascites status post paracentesis with 11 L drained May 25, 2024. 5. Liver cirrhosis. Plan: Stop IV fluids. Low-salt diet and 1200 cc fluid restriction. Lasix 40 mg IV once today. Continue to monitor renal function and urine output. Avoid nephrotoxins. 25 g IV albumin x 2 doses today. Thank you for the consultation. I will continue to follow the patient with you during her hospital stay.
[2024-05-27] MEDS: POTASSIUM CHLORIDE ER 20 MEQ TAB.ER PO SCH (11:12)
[2024-05-27] MEDS: FUROSEMIDE 10 MG/ML 4 ML VIAL IV SCH (11:30)
[2024-05-27] MEDS: SODIUM FERRIC GLUCONAT-SUCROSE 125 MG in SODIUM CHLORIDE 0.9% 100 ML IVPB SCH (11:30)
--- NOTE | 2024-05-27 12:13 | P.PN ---
Subjective Progress Note Date: 05/27/24 Principal diagnosis: Liver cirrhosis, GI bleed This a pleasant 44-year-old female who presented to the emergency department for abdominal distention and abdominal pain. Patient has had multiple hospitalizations recently. She was just hospitalized and discharged last week Thursday. During that hospitalization she was seen by gastroenterology for liver cirrhosis and ascites. She has had hyponatremia and has been followed by nephrology. She was discharged home states that she was not taking her lactulose, she was not taking any diuretics and she did not make any of her fo llow-up appointments with gastroenterology or nephrology. Patient's was diagnosed with alcohol induced liver cirrhosis about a year ago. She reportedly has not drank for about 10 months now. She had undergone cholecystectomy and underwent that on 03/21/[address] Corrigan and was hospitalized and discharged on 04/08/2024 following some reported complications following surgery. She had an upper endoscopy done 02/19/2024 with findings of antral ulcer, small distal esophageal varices with no stigmata of recent bleeding, and mild to moderate gastritis. Currently she is not on any diuretics. Gastroenterology was consulted for cirrhosis. She has leukocytosis on admission. Admitting labs WBC 20.2 hemoglobin 10.4 platelet count 112,000 INR 1.5 sodium 128 potassium 3.5 BUN 25 creatinine 1.16 total bilirubin 3.5 AST 46 ALT 18 alkaline phosphatase 218 ammonia 96 amylase less than 30 lipase 127 She denies any fevers or chills, states she came in because of abdominal distention. She still has some leaking from previous surgical site. 05/26/2024 Patient seen and examined in the ICU. She was transferred from the floor yesterday after becoming hypotensive status post her paracentesis with 11 L of fluid removed. Patient also started having black stools throughout the night. Hemoglobin was 7.2 this morning. Potassium and yesterday evening was 2.6 potassium was replaced with repeat potassium at 3.0. BUN 40 creatinine 1.2 patient is very lethargic. 05/27/2024 Patient seen and examined today as a follow-up. Yesterday she underwent upper endoscopy without any active bleeding noted. EGD revealed small distal esophageal varices with no stigmata of active bleeding, erosions in distal esophagus consistent with LA grade B reflux esophagitis no gastric varices and a small hiatal hernia. Patient denies any abdominal pain, nausea or vomiting. No further blood in her stools. Patient is much more alert today. Hemoglobin is stable at 8.6 platelet count 56,000 INR 1.8 sodium 130 potassium 3.8 BUN 30 creatinine 1.16 total bilirubin 1.9 AST 32 ALT 14 alkaline phosphatase 174 Objective - Vital Signs Vital signs: Vital Signs Temp 98.4 F 05/27/24 04:00 Pulse 72 05/27/24 07:00 Resp 15 05/27/24 07:00 BP 93/61 05/27/24 07:00 Pulse Ox 95 05/27/24 07:00 FiO2 Intake & Output 05/26/24 05/27/24 05/27/24 18:59 06:59 18:59 Intake Total 3606.691 3257.947 Output Total 945 930 Balance 2661.691 2327.947 Weight 130.3 kg 130.3 kg Intake: IV 2750 2060 Potassium Chloride 10 meq 900 400 In Water For Injection 1 100ml.bag @ 100 mls/hr IVPB Q1HR [facility] Rx#: [id number] Sodium Chloride 0.9% 1, 1650 1560 000 ml @ 150 mls/hr IV . Q6H40M [facility] Rx#:[id number] Sodium Ferric Gluconat- 100 Sucrose 125 mg In Sodium Chloride 0.9% 100 ml @ 100 mls/hr IVPB HS [facility] Rx #:[id number] Intake, IV Titration 256.691 117.947 Amount Albumin Human 25% 50 ml 50 In Empty Bag 1 bag @ 200 mls/hr IVPB Q15M [facility] Rx#: [id number] Norepinephrine 4 mg In 206.691 117.947 Sodium Chloride 0.9% 250 ml @ 0.03 MCG/KG/MIN 13. 48 mls/hr IV .[id number] [facility] Rx#:[id number] Oral 600 1080 Output: Urine 945 930 Other: Voiding Method Indwelling Catheter Indwelling Catheter - Exam General appearance: The patient is l alert and oriented x 3. Appears in no acute distress. HET: Head is normocephalic and atraumatic. Conjunctiva pink. Sclera anicteric. Neck: Supple without lymphadenopathy. Abdomen: Soft, nontender, ascites. Extremities: Normal skin color and turgor. Lower extremity edema. Skin: No rashes, no jaundice Neurological: Patient is alert and oriented x 3. - Labs CBC & Chem 7: 05/27/24 07:55 05/27/24 06:58 Labs: Abnormal Lab Results - Last 24 Hours (Table) 05/26/24 05/26/24 05/26/24 Range/Units 05:40 11:34 11:34 WBC 13.52 H 11.5 H (4.50-10.00) X 10*3/uL RBC 2.22 L 2.39 L (4.10-5.20) X 10*6/uL Hgb 7.2 L 7.8 L (12.0-15.0) g/dL Hct 21.8 L 24.2 L (37.2-46.3) % MCV 98.2 H 101.2 H (80.0-97.0) FL MCH 32.4 H (27.0-32.0) pg RDW 21.2 H 21.7 H (11.5-14.5) % Plt Count 62 L 64 L (140-440) X 10*3/uL Immature Gran # 0.11 H (0.00-0.04) X 10*3/uL Neutrophils # 9.71 H (1.80-7.70) X 10*3/uL Eosinophils # 0.57 H (0.04-0.35) X 10*3/uL NRBC/100 WBC Diff 0.02 H (0.00-0.01) X 10*3/uL Immature Plt Fraction 7.3 H (1.1-6.1) % PT (10.0-12.5) sec INR (<1.2) Sodium 133 L (137-145) mmol/L Potassium 3.0 L (3.5-5.1) mmol/L Chloride 110 H (98-107) mmol/L Carbon Dioxide 21 L (22-30) mmol/L BUN 40 H (7-17) mg/dL Creatinine 1.21 H (0.52-1.04) mg/dL POC Glucose (mg/dL) (70-110) mg/dL Calcium 7.2 L (8.4-10.2) mg/dL 05/26/24 05/27/24 Range/Units 17:49 06:58 WBC (4.50-10.00) X 10*3/uL RBC (4.10-5.20) X 10*6/uL Hgb (12.0-15.0) g/dL Hct (37.2-46.3) % MCV (80.0-97.0) FL MCH (27.0-32.0) pg RDW (11.5-14.5) % Plt Count (140-440) X 10*3/uL Immature Gran # (0.00-0.04) X 10*3/uL Neutrophils # (1.80-7.70) X 10*3/uL Eosinophils # (0.04-0.35) X 10*3/uL NRBC/100 WBC Diff (0.00-0.01) X 10*3/uL Immature Plt Fraction (1.1-6.1) % PT 18.6 H (10.0-12.5) sec INR 1.8 H (<1.2) Sodium (137-145) mmol/L Potassium (3.5-5.1) mmol/L Chloride (98-107) mmol/L Carbon Dioxide (22-30) mmol/L BUN (7-17) mg/dL Creatinine (0.52-1.04) mg/dL POC Glucose (mg/dL) 164 H (70-110) mg/dL Calcium (8.4-10.2) mg/dL Microbiology - Last 24 Hours (Table) 05/25/24 11:35 Gram Stain - Preliminary Ascites Fluid Body Fluid Culture - Preliminary 05/25/24 22:35 Urine Culture - Final Urine,Catheterized Assessment and Plan (1) Alcoholic cirrhosis of liver with ascites Narrative/Plan: 44-year-old female well-known to gastroenterology with multiple hospitalizations for alcoholic cirrhosis of the liver with ascites. She has been hyponatremic on previous hospitalizations. States she was told by her PCP not to take diuretics on discharge. 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 Patient is with decompensated cirrhosis of the liver. She has not had any outpatient follow-up with specialist. She is presenting with leukocytosis and need to suspect possible spontaneous bacterial peritonitis. Paracentesis ordered, will get cell count and fluid cultures. Will start IV antibiotics. Current Visit: Yes Status: Acute Code(s): K70.31 - ALCOHOLIC CIRRHOSIS OF LIVER WITH ASCITES SNOMED Code(s): 658500533 (2) Leukocytosis Current Visit: Yes Status: Acute Code(s): D72.829 - ELEVATED WHITE BLOOD CELL COUNT, UNSPECIFIED SNOMED Code(s): 095175170 (3) Swelling of lower extremity Current Visit: Yes Status: Acute Code(s): M79.89 - OTHER SPECIFIED SOFT TISSUE DISORDERS SNOMED Code(s): 692332810 (4) Thrombocytopenia Current Visit: Yes Status: Acute Code(s): D69.6 - THROMBOCYTOPENIA, UNSPECIFIED SNOMED Code(s): 673512805 (5) Anemia Current Visit: No Status: Acute Code(s): D64.9 - ANEMIA, UNSPECIFIED SNOMED Code(s): 334000141 (6) Hyponatremia Current Visit: No Status: Acute Code(s): E87.1 - HYPO-OSMOLALITY AND HYPONATREMIA SNOMED Code(s): 96680845 (7) Melena Narrative/Plan: Patient status post EGD without any active bleeding noted. Small esophageal varices with no stigmata for bleeding. Erosive esophagitis, small hiatal hernia no gastric varices. Current Visit: No Status: Acute Code(s): K92.1 - MELENA SNOMED Code(s): 4667072 Plan: 1. Continue symptomatic and supportive care 2. Consult to nephrology for chronic kidney disease, management of diuretics 3. Protonix 40 mg twice daily 4. Continue Xifaxan 5. Continue lactulose 30 g 3 times daily, titrate to have 3 bowel movements martin ly 6. Continue IV antibiotics 7. Patient is scheduled for outpatient paracentesis next week 8. Discussed with patient importance of medical compliance and to make follow- up appointments. Patient verbalized understanding. Thank you for this consultation, gastroenterology will sign off. We will be unavailable through the weekend and next week. Dr. Rachel Cuenca I agree with the dictator's note, documented as a scribe by Katiuska Fan.
[2024-05-27 12:15] LABS: Glucose,Whole Blood 118 mg/dL (70-110)
--- NOTE | 2024-05-27 12:55 | P.PN ---
Subjective Progress Note Date: 05/27/24 SURGICAL PROGRESS NOTE CHIEF COMPLAINT: Abdominal ascites HISTORY OF PRESENT ILLNESS: Patient remains in the ICU. She did have a paracentesis on 05/25/2024 with 11 L removed of fluid. Patient had EGD co mpleted yesterday with GI service that reported's very small distal esophageal varices with no active bleeding or recent bleeding. Erosion on the distal esophagus consistent with LA grade B reflux esophagitis. Patient did have the sutures removed from her abdomen. There is no fluid draining from the area that the sutures were removed. Afebrile. WBC 11.4 Hgb 8.6 platelets 56 INR 1.8 creatinine 1.16 PHYSICAL EXAM: VITAL SIGNS: Reviewed. GENERAL: in no acute distress. ABDOMEN: Soft. Distended. Sutures were removed at the umbilicus area and on the right flank. Currently no ascites fluid draining from these areas. NEUROLOGIC: Alert and oriented. Cranial nerves II through XII grossly intact. ASSESSMENT: 1. Alcohol cirrhosis of the liver with large amount of abdominal ascites status post paracentesis with 11 L removed 2. Acute GI bleed with melanotic stools status post EGD with distal esophageal varices with no active bleeding, esophagitis, small hiatal hernia, mild duodenit is 3. Acute blood loss anemia due to GI bleed 4. Hyponatremia and hypokalemia 5. Thrombocytopenia PLAN: -Will continue to follow -Sutures removed yesterday with no ascites fluid draining from these areas -Continue supportive care -Continue PPI Physician Bartender note has been reviewed by physician. Signing provider agrees with the documented findings, assessment, and plan of care. Objective - Vital Signs Vital signs: Vital Signs Temp 98.7 F 05/27/24 12:00 Pulse 80 05/27/24 12:00 Resp 12 05/27/24 12:00 BP 111/60 05/27/24 12:00 Pulse Ox 95 05/27/24 12:00 FiO2 Intake & Output 05/26/24 05/27/24 05/27/24 18:59 06:59 18:59 Intake Total 3606.691 3257.947 495.442 Output Total 945 930 760 Balance 2661.691 2327.947 -264.558 Weight 130.3 kg 130.3 kg Intake: IV 2750 2060 190 0.9NS 40 Potassium Chloride 10 meq 900 400 In Water For Injection 1 100ml.bag @ 100 mls/hr IVPB Q1HR [facility] Rx#: [id number] Sodium Chloride 0.9% 1, 1650 1560 150 000 ml @ 150 mls/hr IV . Q6H40M [facility] Rx#:[id number] Sodium Ferric Gluconat- 100 Sucrose 125 mg In Sodium Chloride 0.9% 100 ml @ 100 mls/hr IVPB HS [facility] Rx #:[id number] Intake, IV Titration 256.691 117.947 305.442 Amount Albumin Human 25% 50 ml 50 In Empty Bag 1 bag @ 200 mls/hr IVPB Q15M [facility] Rx#: [id number] Albumin Human 25% 50 ml 100 In Empty Bag 1 bag @ 50 mls/hr IVPB Q1H [facility] Rx#: [id number] Norepinephrine 4 mg In 206.691 117.947 105.442 Sodium Chloride 0.9% 250 ml @ 0.03 MCG/KG/MIN 13. 48 mls/hr IV .[id number] [facility] Rx#:[id number] Sodium Ferric Gluconat- 100 Sucrose 125 mg In Sodium Chloride 0.9% 100 ml @ 100 mls/hr IVPB DAILY [facility] Rx#:[id number] Oral 600 1080 Output: Urine 945 930 760 Other: Voiding Method Indwelling Catheter Indwelling Catheter Indwelling Catheter - Labs CBC & Chem 7: 05/27/24 07:55 05/27/24 06:58 Labs: Abnormal Lab Results - Last 24 Hours (Table) 05/26/24 05/27/24 05/27/24 Range/Units 17:49 06:58 06:58 WBC (3.8-10.6) k/uL RBC (3.80-5.40) m/uL Hgb (11.4-16.0) gm/dL Hct (34.0-46.0) % MCV (80.0-100.0) fL RDW (11.5-15.5) % Plt Count (150-450) k/uL Neutrophils # (1.3-7.7) k/uL PT 18.6 H (10.0-12.5) sec INR 1.8 H (<1.2) Sodium 130 L (137-145) mmol/L Carbon Dioxide 21 L (22-30) mmol/L BUN 30 H (7-17) mg/dL Creatinine 1.16 H (0.52-1.04) mg/dL POC Glucose (mg/dL) 164 H (70-110) mg/dL Calcium 7.3 L (8.4-10.2) mg/dL Total Bilirubin 1.9 H (0.2-1.3) mg/dL Alkaline Phosphatase 174 H (38-126) U/L Total Protein 3.8 L (6.3-8.2) g/dL Albumin 1.8 L (3.5-5.0) g/dL 05/27/24 05/27/24 Range/Units 07:55 12:13 WBC 11.4 H (3.8-10.6) k/uL RBC 2.63 L (3.80-5.40) m/uL Hgb 8.6 L (11.4-16.0) gm/dL Hct 26.4 L (34.0-46.0) % MCV 100.3 H (80.0-100.0) fL RDW 22.4 H (11.5-15.5) % Plt Count 56 L (150-450) k/uL Neutrophils # 8.4 H (1.3-7.7) k/uL PT (10.0-12.5) sec INR (<1.2) Sodium (137-145) mmol/L Carbon Dioxide (22-30) mmol/L BUN (7-17) mg/dL Creatinine (0.52-1.04) mg/dL POC Glucose (mg/dL) 118 H (70-110) mg/dL Calcium (8.4-10.2) mg/dL Total Bilirubin (0.2-1.3) mg/dL Alkaline Phosphatase (38-126) U/L Total Protein (6.3-8.2) g/dL Albumin (3.5-5.0) g/dL Microbiology - Last 24 Hours (Table) 05/25/24 11:35 Gram Stain - Preliminary Ascites Fluid Body Fluid Culture - Preliminary 05/25/24 22:35 Urine Culture - Final Urine,Catheterized
--- NOTE | 2024-05-27 13:26 | P.PN ---
Subjective Progress Note Date: 05/27/24 Principal diagnosis: Abdominal ascites and upper GI bleeding Patient is a 44-year-old white female with past medical history significant for cirrhosis of the liver, alcohol induced, abdominal ascites requiring frequent paracentesis, UTI with VRE. She is very debilitated, and has had frequent hospitalizations since January of this year, mostly due to complications due to her liver disease. Of note, recently discharged home from this facility May 16, she was apparently admitted for fluid overload and lower extremity cellulitis. Patient returns to the emergency department 05/24/2024 with a chief complaint of abdominal pain. Denies fevers. She does undergo frequent p aracentesis. She has positive fluid balance, and severe lower extremity edema. Admits 20 pound weight gain since her hospital discharge on May 16. Yesterday, underwent large-volume paracentesis, total of 11L was removed. Following this she became hypotensive and patient was transferred to the intensive care unit. She did receive 50 g of 25% albumin. She also was noted to have some dark tarry stools that started yesterday. Hemoglobin has been trending down, most recent 7 g/dL. She is receiving 1 unit PRBCs at the moment. She does have history of GI bleeding. Most recent EGD done February 19, 2024 showing a small antral gastric ulcer with no active bleeding and small distal esophageal varices. Patient currently being evaluated in the ICU, she is alert and oriented. Continues to have dark tarry stools. Fecal occult positive. Blood pressure slightly hypotensive currently 86/46 mmHg. She is receiving a unit of PRBCs at the moment. Normal saline continues at 150 mL/h. Patient did receive an additional 1 L fluid bolus earlier. May require vasopressors if she remains hypotensive. Fluid status appears positive. Urine output is adequate, around 50 to 100 cc/h. Patient denies any urinary symptoms at this time, no burning/dysuria, no hematuria, no urinary frequency. On her recent previous hospital discharge, her Lasix was discontinued. She has significant lower extremity swelling, her legs are wrapped with Theo bandages. Most recent CBC from yesterday: WBC count 15.1, hemoglobin 7, hematocrit 22, platelets 86. CMP from yesterday: Sodium 127, potassium 3.1, chloride 99, serum bicarb 22, BUN 41, creatinine 1.31, glucose 100. Urinalysis was sent. LFTs mildly elevated. Patient has been started on empiric Rocephin for possible SBP. If blood pressure remains hypotensive, may require vasopressors Seen today on 05/27/2024, remains in the ICU, her EGD yesterday showed 1 cm varices, no active bleeding. Patient is on room air, does not seem to be in any distress, she is however hypotensive still requiring midodrine and requiring norepinephrine at 0.04 mcg/kg/min. Nephrology saw the patient, and trying to give the patient intermittent doses of albumin followed by Lasix, patient is developing worsening ascites and worsening fluid retention. Not receiving any IV fluids at this point, and did not require any further blood transfusion. She only had 1 unit of packed RBCs since she came into the ICU. WBC count today is 11.4 hemoglobin is 8.6 INR is 1.8 electrolytes are normal BUN is 30 creatinine 1.16 Objective - Vital Signs Vital signs: Vital Signs Temp 98.7 F 05/27/24 12:00 Pulse 80 05/27/24 12:00 Resp 12 05/27/24 12:00 BP 111/60 05/27/24 12:00 Pulse Ox 95 05/27/24 12:00 FiO2 Intake & Output 05/26/24 05/27/24 05/27/24 18:59 06:59 18:59 Intake Total 3606.691 3257.947 495.442 Output Total 945 930 760 Balance 2661.691 2327.947 -264.558 Weight 130.3 kg 130.3 kg Intake: IV 2750 2060 190 0.9NS 40 Potassium Chloride 10 meq 900 400 In Water For Injection 1 100ml.bag @ 100 mls/hr IVPB Q1HR [facility] Rx#: [id number] Sodium Chloride 0.9% 1, 1650 1560 150 000 ml @ 150 mls/hr IV . Q6H40M [facility] Rx#:[id number] Sodium Ferric Gluconat- 100 Sucrose 125 mg In Sodium Chloride 0.9% 100 ml @ 100 mls/hr IVPB HS [facility] Rx #:[id number] Intake, IV Titration 256.691 117.947 305.442 Amount Albumin Human 25% 50 ml 50 In Empty Bag 1 bag @ 200 mls/hr IVPB Q15M [facility] Rx#: [id number] Albumin Human 25% 50 ml 100 In Empty Bag 1 bag @ 50 mls/hr IVPB Q1H [facility] Rx#: [id number] Norepinephrine 4 mg In 206.691 117.947 105.442 Sodium Chloride 0.9% 250 ml @ 0.03 MCG/KG/MIN 13. 48 mls/hr IV .[id number] [facility] Rx#:[id number] Sodium Ferric Gluconat- 100 Sucrose 125 mg In Sodium Chloride 0.9% 100 ml @ 100 mls/hr IVPB DAILY [facility] Rx#:[id number] Oral 600 1080 Output: Urine 945 930 760 Other: Voiding Method Indwelling Catheter Indwelling Catheter Indwelling Catheter - Exam GENERAL EXAM: 44-year-old female in no distress on room air HEAD: Normocephalic and atraumatic EYES: Normal reaction of pupils, equal size. NOSE: Clear with pink turbinates. THROAT: No erythema or exudates. NECK: No masses, no JVD. CHEST: No chest wall deformity. LUNGS: Equal air entry with no crackles, wheeze, rhonchi or dullness. On 2 L/min nasal cannula. No conversational dyspnea or accessory muscle use.. CVS: S1 and S2 normal with no audible murmur, regular rhythm. No extra heart sounds ABDOMEN: Abdominal distention/ascites, active bowel sounds, no hepatosplenomegaly, no guarding or rigidity. SKIN: No rashes CENTRAL NERVOUS SYSTEM: Alert and oriented x 3 no gross focal deficit EXTREMITIES: 3+ bipedal edema - Labs CBC & Chem 7: 05/27/24 07:55 05/27/24 06:58 Labs: Abnormal Lab Results - Last 24 Hours (Table) 05/26/24 05/27/24 05/27/24 Range/Units 17:49 06:58 06:58 WBC (3.8-10.6) k/uL RBC (3.80-5.40) m/uL Hgb (11.4-16.0) gm/dL Hct (34.0-46.0) % MCV (80.0-100.0) fL RDW (11.5-15.5) % Plt Count (150-450) k/uL Neutrophils # (1.3-7.7) k/uL PT 18.6 H (10.0-12.5) sec INR 1.8 H (<1.2) Sodium 130 L (137-145) mmol/L Carbon Dioxide 21 L (22-30) mmol/L BUN 30 H (7-17) mg/dL Creatinine 1.16 H (0.52-1.04) mg/dL POC Glucose (mg/dL) 164 H (70-110) mg/dL Calcium 7.3 L (8.4-10.2) mg/dL Total Bilirubin 1.9 H (0.2-1.3) mg/dL Alkaline Phosphatase 174 H (38-126) U/L Total Protein 3.8 L (6.3-8.2) g/dL Albumin 1.8 L (3.5-5.0) g/dL 05/27/24 05/27/24 Range/Units 07:55 12:13 WBC 11.4 H (3.8-10.6) k/uL RBC 2.63 L (3.80-5.40) m/uL Hgb 8.6 L (11.4-16.0) gm/dL Hct 26.4 L (34.0-46.0) % MCV 100.3 H (80.0-100.0) fL RDW 22.4 H (11.5-15.5) % Plt Count 56 L (150-450) k/uL Neutrophils # 8.4 H (1.3-7.7) k/uL PT (10.0-12.5) sec INR (<1.2) Sodium (137-145) mmol/L Carbon Dioxide (22-30) mmol/L BUN (7-17) mg/dL Creatinine (0.52-1.04) mg/dL POC Glucose (mg/dL) 118 H (70-110) mg/dL Calcium (8.4-10.2) mg/dL Total Bilirubin (0.2-1.3) mg/dL Alkaline Phosphatase (38-126) U/L Total Protein (6.3-8.2) g/dL Albumin (3.5-5.0) g/dL Microbiology - Last 24 Hours (Table) 05/26/24 05:40 Blood Culture - Preliminary Blood 05/25/24 11:35 Gram Stain - Preliminary Ascites Fluid Body Fluid Culture - Preliminary 05/25/24 22:35 Urine Culture - Final Urine,Catheterized Assessment and Plan Assessment: Impression: Acute upper GI bleed, patient's having multiple melanotic stools, status post 1 unit of packed RBCs given no further transfusion felt to be necessary Abdominal ascites, status post large-volume paracentesis, total of 11 L was removed, Hypotension, secondary to combination of above, patient is presently on midodrine and on norepinephrine low-dose Abdominal pain Acute leukocytosis History of liver cirrhosis, secondary to chronic alcohol use History of GI bleed, gastric ulcer, and small esophageal varices; last EGD done 02/19/24 Hypervolemic hyponatremia Severe hypokalemia, being replaced per protocol History of UTI/VRE History of recent cholecystectomy. History of COPD. History of bipolar disorder. History of chronic thrombocytopenia Chronic kidney disease, secondary to hepatorenal syndrome History of alcoholism, last reported drink > 6 months ago. Recommendation: Continue present supportive care measures Continue norepinephrine and titrate accordingly Considering the high volume paracentesis, no wonder the patient is hypotensive although she did receive albumin infusions Patient is developing worsening ascites again, presently on albumin followed by Lasix, may or may not improve this patient's overall fluid status Check fluid cultures from ascites in the meantime patient remains empirically on antibiotics/Rocephin Once the patient is off norepinephrine I plan to transfer the patient out of the ICU. Will continue to follow Time with Patient: Less than 30
--- NOTE | 2024-05-27 15:30 | P.PN ---
Subjective Progress Note Date: 05/26/24 Principal diagnosis: Reason for follow-up is leukocytosis and lower extremity cellulitis Patient is a 44-year-old female with a past medical history significant for cirrhosis of the liver bipolar recurrent admission to the hospital for ascites and lower extremity cellulitis patient was brought into the hospital concerning for increasing swelling to the abdomen as well as lower extremity patient did have elevated white count prompted this consultation. On today's evaluation that is 05/26/2024,the patient denies any fever or any chills, patient is breathing comfortably on 2 L current oxygen, the patient denies chest pain shortness of breath and no significant cough, patient denies abdominal pain, no nausea vomiting or diarrhea. Denies any worsening pain with lower extremity. Patient white count is down to 11.5 creatinine is 1.21 Objective - Vital Signs Vital signs: Vital Signs Temp 98.1 F 05/26/24 12:00 Pulse 75 05/26/24 12:00 Resp 12 05/26/24 12:00 BP 107/51 05/26/24 12:00 Pulse Ox 100 05/26/24 12:00 FiO2 2L - Exam GENERAL DESCRIPTION: Middle-age female lying in bed in no distress RESPIRATORY SYSTEM: Unlabored breathing , decreased breath sounds at bases HEART: S1 S2 regular rate and rhythm , ABDOMEN: Soft , no tenderness EXTREMITIES: Bilateral legs are currently wrapped in Theo wrap - Labs CBC & Chem 7: 05/27/24 07:55 05/27/24 06:58 Labs: Abnormal Lab Results - Last 24 Hours (Table) 05/26/24 05/27/24 05/27/24 Range/Units 17:49 06:58 06:58 WBC (3.8-10.6) k/uL RBC (3.80-5.40) m/uL Hgb (11.4-16.0) gm/dL Hct (34.0-46.0) % MCV (80.0-100.0) fL RDW (11.5-15.5) % Plt Count (150-450) k/uL Neutrophils # (1.3-7.7) k/uL PT 18.6 H (10.0-12.5) sec INR 1.8 H (<1.2) Sodium 130 L (137-145) mmol/L Carbon Dioxide 21 L (22-30) mmol/L BUN 30 H (7-17) mg/dL Creatinine 1.16 H (0.52-1.04) mg/dL POC Glucose (mg/dL) 164 H (70-110) mg/dL Calcium 7.3 L (8.4-10.2) mg/dL Total Bilirubin 1.9 H (0.2-1.3) mg/dL Alkaline Phosphatase 174 H (38-126) U/L Total Protein 3.8 L (6.3-8.2) g/dL Albumin 1.8 L (3.5-5.0) g/dL 05/27/24 05/27/24 Range/Units 07:55 12:13 WBC 11.4 H (3.8-10.6) k/uL RBC 2.63 L (3.80-5.40) m/uL Hgb 8.6 L (11.4-16.0) gm/dL Hct 26.4 L (34.0-46.0) % MCV 100.3 H (80.0-100.0) fL RDW 22.4 H (11.5-15.5) % Plt Count 56 L (150-450) k/uL Neutrophils # 8.4 H (1.3-7.7) k/uL PT (10.0-12.5) sec INR (<1.2) Sodium (137-145) mmol/L Carbon Dioxide (22-30) mmol/L BUN (7-17) mg/dL Creatinine (0.52-1.04) mg/dL POC Glucose (mg/dL) 118 H (70-110) mg/dL Calcium (8.4-10.2) mg/dL Total Bilirubin (0.2-1.3) mg/dL Alkaline Phosphatase (38-126) U/L Total Protein (6.3-8.2) g/dL Albumin (3.5-5.0) g/dL Microbiology - Last 24 Hours (Table) 05/26/24 05:40 Blood Culture - Preliminary Blood 05/25/24 11:35 Gram Stain - Preliminary Ascites Fluid Body Fluid Culture - Preliminary 05/25/24 22:35 Urine Culture - Final Urine,Catheterized Assessment and Plan (1) Bilateral lower leg cellulitis Current Visit: Yes Status: Acute Code(s): L03.116 - CELLULITIS OF LEFT LOWER LIMB; L03.115 - CELLULITIS OF RIGHT LOWER LIMB SNOMED Code(s): 702810553 (2) Wound of right foot Current Visit: Yes Status: Acute Code(s): S91.301A - UNSPECIFIED OPEN WOUND, RIGHT FOOT, INITIAL ENCOUNTER SNOMED Code(s): 126851686 (3) Leukocytosis Current Visit: Yes Status: Acute Code(s): D72.829 - ELEVATED WHITE BLOOD CELL COUNT, UNSPECIFIED SNOMED Code(s): 371860508 Plan: 1patient with a leukocytosis in this patient who did have a cirrhosis of the liver now presented to the hospital with increasing abdominal distention but no significant tenderness clinically not behaving as SBP but not entirely excluded patient did have bilateral lower extremity swelling and redness and complaint of cellulitis likely etiology of this elevated white count 2-patient remains to be afebrile patient white count is trending down, to continue with Rocephin 2 g daily 3-local wound care to the right foot wound with the Medihoney followed by moist dressing change daily Dictation was produced using [email or web address] dictation software. please excuse any grammatical, word or spelling errors. Time with Patient: Less than 30
--- NOTE | 2024-05-27 15:31 | P.PN ---
Subjective Progress Note Date: 05/27/24 Principal diagnosis: Reason for follow-up is leukocytosis and lower extremity cellulitis Patient is a 44-year-old female with a past medical history significant for cirrhosis of the liver bipolar recurrent admission to the hospital for ascites and lower extremity cellulitis patient was brought into the hospital concerning for increasing swelling to the abdomen as well as lower extremity patient did have elevated white count prompted this consultation. On today's evaluation that is 05/27/2024,the patient remains to be afebrile, patient is on 2 L nasal cannula supplemental oxygen and denies any shortness of breath no chest pain or cough.Patient denies having any nausea or vomiting, no abdominal pain and no diarrhea has been reported denies pain to the lower ext remity. Patient did have white count of 11.4 creatinine 1.16 Objective - Vital Signs Vital signs: Vital Signs Temp 98.7 F 05/27/24 12:00 Pulse 80 05/27/24 13:15 Resp 20 05/27/24 13:15 BP 107/54 05/27/24 13:15 Pulse Ox 97 05/27/24 13:15 FiO2 Intake & Output 05/26/24 05/27/24 05/27/24 18:59 06:59 18:59 Intake Total 3606.691 3257.947 551.758 Output Total 945 930 760 Balance 2661.691 2327.947 -208.242 Weight 130.3 kg 130.3 kg Intake: IV 2750 2060 190 0.9NS 40 Potassium Chloride 10 meq 900 400 In Water For Injection 1 100ml.bag @ 100 mls/hr IVPB Q1HR [facility] Rx#: [id number] Sodium Chloride 0.9% 1, 1650 1560 150 000 ml @ 150 mls/hr IV . Q6H40M [facility] Rx#:[id number] Sodium Ferric Gluconat- 100 Sucrose 125 mg In Sodium Chloride 0.9% 100 ml @ 100 mls/hr IVPB HS [facility] Rx #:[id number] Intake, IV Titration 256.691 117.947 361.758 Amount Albumin Human 25% 50 ml 50 In Empty Bag 1 bag @ 200 mls/hr IVPB Q15M [facility] Rx#: [id number] Albumin Human 25% 50 ml 100 In Empty Bag 1 bag @ 50 mls/hr IVPB Q1H [facility] Rx#: [id number] Norepinephrine 4 mg In 206.691 117.947 161.758 Sodium Chloride 0.9% 250 ml @ 0.03 MCG/KG/MIN 13. 48 mls/hr IV .[id number] [facility] Rx#:[id number] Sodium Ferric Gluconat- 100 Sucrose 125 mg In Sodium Chloride 0.9% 100 ml @ 100 mls/hr IVPB DAILY [facility] Rx#:[id number] Oral 600 1080 Output: Urine 945 930 760 Other: Voiding Method Indwelling Catheter Indwelling Catheter Indwelling Catheter - Exam GENERAL DESCRIPTION: Middle-age female lying in bed in no distress RESPIRATORY SYSTEM: Unlabored breathing , decreased breath sounds at bases HEART: S1 S2 regular rate and rhythm , ABDOMEN: Soft , no tenderness EXTREMITIES: Bilateral legs are currently wrapped in Theo wrap - Labs CBC & Chem 7: 05/27/24 07:55 05/27/24 06:58 Labs: Abnormal Lab Results - Last 24 Hours (Table) 05/26/24 05/27/24 05/27/24 Range/Units 17:49 06:58 06:58 WBC (3.8-10.6) k/uL RBC (3.80-5.40) m/uL Hgb (11.4-16.0) gm/dL Hct (34.0-46.0) % MCV (80.0-100.0) fL RDW (11.5-15.5) % Plt Count (150-450) k/uL Neutrophils # (1.3-7.7) k/uL PT 18.6 H (10.0-12.5) sec INR 1.8 H (<1.2) Sodium 130 L (137-145) mmol/L Carbon Dioxide 21 L (22-30) mmol/L BUN 30 H (7-17) mg/dL Creatinine 1.16 H (0.52-1.04) mg/dL POC Glucose (mg/dL) 164 H (70-110) mg/dL Calcium 7.3 L (8.4-10.2) mg/dL Total Bilirubin 1.9 H (0.2-1.3) mg/dL Alkaline Phosphatase 174 H (38-126) U/L Total Protein 3.8 L (6.3-8.2) g/dL Albumin 1.8 L (3.5-5.0) g/dL 05/27/24 05/27/24 Range/Units 07:55 12:13 WBC 11.4 H (3.8-10.6) k/uL RBC 2.63 L (3.80-5.40) m/uL Hgb 8.6 L (11.4-16.0) gm/dL Hct 26.4 L (34.0-46.0) % MCV 100.3 H (80.0-100.0) fL RDW 22.4 H (11.5-15.5) % Plt Count 56 L (150-450) k/uL Neutrophils # 8.4 H (1.3-7.7) k/uL PT (10.0-12.5) sec INR (<1.2) Sodium (137-145) mmol/L Carbon Dioxide (22-30) mmol/L BUN (7-17) mg/dL Creatinine (0.52-1.04) mg/dL POC Glucose (mg/dL) 118 H (70-110) mg/dL Calcium (8.4-10.2) mg/dL Total Bilirubin (0.2-1.3) mg/dL Alkaline Phosphatase (38-126) U/L Total Protein (6.3-8.2) g/dL Albumin (3.5-5.0) g/dL Microbiology - Last 24 Hours (Table) 05/26/24 05:40 Blood Culture - Preliminary Blood 05/25/24 11:35 Gram Stain - Preliminary Ascites Fluid Body Fluid Culture - Preliminary 05/25/24 22:35 Urine Culture - Final Urine,Catheterized Assessment and Plan (1) Bilateral lower leg cellulitis Current Visit: Yes Status: Acute Code(s): L03.116 - CELLULITIS OF LEFT LOWER LIMB; L03.115 - CELLULITIS OF RIGHT LOWER LIMB SNOMED Code(s): 747757762 (2) Wound of right foot Current Visit: Yes Status: Acute Code(s): S91.301A - UNSPECIFIED OPEN WOUND, RIGHT FOOT, INITIAL ENCOUNTER SNOMED Code(s): 029182044 (3) Leukocytosis Current Visit: Yes Status: Acute Code(s): D72.829 - ELEVATED WHITE BLOOD CELL COUNT, UNSPECIFIED SNOMED Code(s): 450414673 Plan: 1patient with a leukocytosis in this patient who did have a cirrhosis of the liver now presented to the hospital with increasing abdominal distention but no significant tenderness clinically not behaving as SBP but not entirely excluded patient did have bilateral lower extremity swelling and redness and complaint of cellulitis likely etiology of this elevated white count 2-local wound care to the right foot wound with the Medihoney followed by moist dressing change daily 3-patient remains to be afebrile patient white count is trending down, patient to continue with Rocephin 2 g daily and monitor clinical course closely Dictation was produced using [employer] dictation software. please excuse any grammatical, word or spelling errors. Time with Patient: Less than 30
[2024-05-27 17:03] LABS: Glucose,Whole Blood 144 mg/dL (70-110)
[2024-05-27] MEDS: LACTULOSE 20 GM/30 ML CUP PO SCH (18:01)
[2024-05-27 23:35] LABS: Glucose,Whole Blood 166 mg/dL (70-110)
--- NOTE | 2024-05-28 02:23 | PN ---
PROGRESS NOTE SUBJECTIVE: She has leukocytosis, lower extremity cellulitis, possible spontaneous bacterial peritonitis, status post paracentesis. She became hypotensive, sent to the ICU. She is on broad-spectrum antibiotics. She is on norepinephrine due to severe hypotension. Blood pressure medications, we will cut way back to 24 mcg of norepinephrine. OBJECTIVE: VITAL SIGNS: Temp 98.7, pulse 80, respiratory rate 18 to 20, blood pressure 107/54, O2 of 97%. CARDIOVASCULAR: S1, S2. LUNGS: Transmitted upper sounds. ENDOCRINE: Morbid obesity. Ascitic fluid with distended abdomen. EXTREMITIES: 3+ edema bilaterally. PSYCH: Fair mood and affect. LABORATORY DATA: White count 11.4, hemoglobin is 8.6, BUN 30, creatinine 1.16, sodium 130. She has a wound on the right foot, leukocytosis, cirrhosis, orthostatic hypotension, severe third-spacing of fluids, Medihoney to the right foot wounds. Remains on Rocephin. Antibiotics are trending down. White counts are trending down to 11.4 from 20 on admission. Continue on antibiotics per Dr. Kaba's recommendation. Possibly dialysis will be needed again. We will see how she does. Prognosis guarded. MMODL / IJN: [id number] /
[2024-05-28 05:21] LABS: Anisocytosis Moderate; HCT 24.9 % (34.0-46.0); HGB 7.9 gm/dL (11.4-16.0); Hypochromasia Marked; MCH 33.2 pg (25.0-35.0); MCHC 31.8 g/dL (31.0-37.0); MCV 104.3 fL (80.0-100.0); Macrocytosis Marked; Mean Platelet Volume 10.8; Poikilocytosis Slight; RBC 2.39 m/uL (3.80-5.40); RDW 22.6 % (11.5-15.5); WBC 8.5 k/uL (3.8-10.6)
[2024-05-28 05:23] LABS: Platelet Count 64 k/uL (150-450)
[2024-05-28 05:31] LABS: Glucose,Whole Blood 140 mg/dL (70-110)
[2024-05-28 05:48] LABS: African American GFR (CKD) 69 (>60 ml/min/1.73 sqM); Anion Gap 7 mmol/L; Blood Urea Nitrogen 23 mg/dL (7-17); Calcium 7.8 mg/dL (8.4-10.2); Carbon Dioxide 16 mmol/L (22-30); Chloride 109 mmol/L (98-107); Glucose 124 mg/dL (74-99); Non-African American GFR(CKD) 60 (>60 ml/min/1.73 sqM); Potassium 3.2 mmol/L (3.5-5.1); Sodium 132 mmol/L (137-145)
[2024-05-28] MEDS: FUROSEMIDE 20 MG TAB PO SCH (09:18)
[2024-05-28 09:48] LABS: HGB 7.3 gm/dL (11.4-16.0)
[2024-05-28] MEDS: POTASSIUM CHLORIDE ER 20 MEQ TAB.ER PO SCH ×3 (11:14→20:14)
--- NOTE | 2024-05-28 11:28 | P.PN ---
Subjective Patient is seen in follow-up for chronic kidney disease. Renal function stable. Urine output improved after she received IV Lasix yesterday. Off Levophed. Vital signs are stable. General: No acute distress. HEENT: Head exam is unremarkable. LUNGS: No audible rhonchi or wheezes. HEART: Rate and Rhythm are regular. ABDOMEN: Distention noted. Nontender. EXTREMITITES: 2+ edema. Objective - Vital Signs Vital signs: Vital Signs Temp 98.1 F 05/28/24 08:00 Pulse 93 05/28/24 11:15 Resp 14 05/28/24 11:15 BP 112/51 05/28/24 11:15 Pulse Ox 98 05/28/24 11:15 FiO2 Intake & Output 05/27/24 05/28/24 05/28/24 18:59 06:59 18:59 Intake Total 1520.983 624.454 364.957 Output Total 2260 635 340 Balance -739.017 -10.546 24.957 Weight 129.7 kg Intake: IV 250 120 50 0.9NS 100 120 50 Sodium Chloride 0.9% 1, 150 000 ml @ 150 mls/hr IV . Q6H40M [facility] Rx#:[id number] Intake, IV Titration 395.983 282.454 314.957 Amount Albumin Human 25% 50 ml 50 In Empty Bag 1 bag @ 50 mls/hr IVPB Q1H [facility] Rx#: [id number] Albumin Human 25% 50 ml 100 In Empty Bag 1 bag @ 50 mls/hr IVPB Q1H [facility] Rx#: [id number] Norepinephrine 4 mg In 195.983 232.454 164.957 Sodium Chloride 0.9% 250 ml @ 0.03 MCG/KG/MIN 13. 48 mls/hr IV .[id number] [facility] Rx#:[id number] Sodium Ferric Gluconat- 100 100 Sucrose 125 mg In Sodium Chloride 0.9% 100 ml @ 100 mls/hr IVPB DAILY [facility] Rx#:[id number] cefTRIAXone 2 gm In 50 Sodium Chloride 0.9% 50 ml @ 100 mls/hr IVPB Q24HR [facility] Rx#:[id number] Oral 875 222 Output: Urine 2260 635 340 Other: Voiding Method Indwelling Catheter Indwelling Catheter Indwelling Catheter - Labs CBC & Chem 7: 05/28/24 05:05 05/28/24 05:05 Labs: Abnormal Lab Results - Last 24 Hours (Table) 05/25/24 05/27/24 05/27/24 Range/Units 11:50 12:13 17:01 RBC (3.80-5.40) m/uL Hgb 7.3 L D (11.4-16.0) gm/dL Hct (34.0-46.0) % MCV (80.0-100.0) fL RDW (11.5-15.5) % Plt Count (150-450) k/uL Macrocytosis Sodium (137-145) mmol/L Potassium (3.5-5.1) mmol/L Chloride (98-107) mmol/L Carbon Dioxide (22-30) mmol/L BUN (7-17) mg/dL Creatinine (0.52-1.04) mg/dL Glucose (74-99) mg/dL POC Glucose (mg/dL) 118 H 144 H (70-110) mg/dL Calcium (8.4-10.2) mg/dL 05/27/24 05/28/24 05/28/24 Range/Units 23:33 05:05 05:05 RBC 2.39 L (3.80-5.40) m/uL Hgb 7.9 L (11.4-16.0) gm/dL Hct 24.9 L (34.0-46.0) % MCV 104.3 H (80.0-100.0) fL RDW 22.6 H (11.5-15.5) % Plt Count 64 L (150-450) k/uL Macrocytosis Marked A Sodium 132 L (137-145) mmol/L Potassium 3.2 L (3.5-5.1) mmol/L Chloride 109 H (98-107) mmol/L Carbon Dioxide 16 L (22-30) mmol/L BUN 23 H (7-17) mg/dL Creatinine 1.13 H (0.52-1.04) mg/dL Glucose 124 H (74-99) mg/dL POC Glucose (mg/dL) 166 H (70-110) mg/dL Calcium 7.8 L (8.4-10.2) mg/dL 05/28/24 Range/Units 05:30 RBC (3.80-5.40) m/uL Hgb (11.4-16.0) gm/dL Hct (34.0-46.0) % MCV (80.0-100.0) fL RDW (11.5-15.5) % Plt Count (150-450) k/uL Macrocytosis Sodium (137-145) mmol/L Potassium (3.5-5.1) mmol/L Chloride (98-107) mmol/L Carbon Dioxide (22-30) mmol/L BUN (7-17) mg/dL Creatinine (0.52-1.04) mg/dL Glucose (74-99) mg/dL POC Glucose (mg/dL) 140 H (70-110) mg/dL Calcium (8.4-10.2) mg/dL Microbiology - Last 24 Hours (Table) 05/25/24 11:35 Anaerobic Culture - Preliminary Ascites Fluid 05/25/24 11:35 Gram Stain - Preliminary Ascites Fluid Body Fluid Culture - Preliminary 05/26/24 05:40 Blood Culture - Preliminary Blood Assessment and Plan Plan: Assessment: 1. Chronic kidney disease stage IIIa with baseline creatinine 1.3-1.5 secondary to hepatorenal syndrome. GFR at baseline. 2. Hypervolemic hyponatremia. Improved. 3. Anemia status post blood transfusion this admission. EGD done this admission showed distal esophageal varices and reflux esophagitis. 4. Volume overload with ascites status post paracentesis with 11 L drained May 25, 2024. 5. Liver cirrhosis. 6. Hypokalemia from diuresis. Being replaced. Plan: Stop IV fluids. Low-salt diet and 1200 cc fluid restriction. Add IV Lasix 40 mg daily. Add spironolactone 25 mg twice daily. Continue to monitor renal function and urine output. Avoid nephrotoxins. Status post IV albumin given May 27, 2024. Check iron studies.
[2024-05-28 11:34] LABS: Glucose,Whole Blood 98 mg/dL (70-110)
--- NOTE | 2024-05-28 12:21 | P.PN ---
Subjective Progress Note Date: 05/28/24 Principal diagnosis: Abdominal ascites and upper GI bleeding Patient is a 44-year-old white female with past medical history significant for cirrhosis of the liver, alcohol induced, abdominal ascites requiring frequent paracentesis, UTI with VRE. She is very debilitated, and has had frequent hospitalizations since January of this year, mostly due to complications due to her liver disease. Of note, recently discharged home from this facility May 16, she was apparently admitted for fluid overload and lower extremity cellulitis. Patient returns to the emergency department 05/24/2024 with a chief complaint of abdominal pain. Denies fevers. She does undergo frequent p aracentesis. She has positive fluid balance, and severe lower extremity edema. Admits 20 pound weight gain since her hospital discharge on May 16. Yesterday, underwent large-volume paracentesis, total of 11L was removed. Following this she became hypotensive and patient was transferred to the intensive care unit. She did receive 50 g of 25% albumin. She also was noted to have some dark tarry stools that started yesterday. Hemoglobin has been trending down, most recent 7 g/dL. She is receiving 1 unit PRBCs at the moment. She does have history of GI bleeding. Most recent EGD done February 19, 2024 showing a small antral gastric ulcer with no active bleeding and small distal esophageal varices. Patient currently being evaluated in the ICU, she is alert and oriented. Continues to have dark tarry stools. Fecal occult positive. Blood pressure slightly hypotensive currently 86/46 mmHg. She is receiving a unit of PRBCs at the moment. Normal saline continues at 150 mL/h. Patient did receive an additional 1 L fluid bolus earlier. May require vasopressors if she remains hypotensive. Fluid status appears positive. Urine output is adequate, around 50 to 100 cc/h. Patient denies any urinary symptoms at this time, no burning/dysuria, no hematuria, no urinary frequency. On her recent previous hospital discharge, her Lasix was discontinued. She has significant lower extremity swelling, her legs are wrapped with Theo bandages. Most recent CBC from yesterday: WBC count 15.1, hemoglobin 7, hematocrit 22, platelets 86. CMP from yesterday: Sodium 127, potassium 3.1, chloride 99, serum bicarb 22, BUN 41, creatinine 1.31, glucose 100. Urinalysis was sent. LFTs mildly elevated. Patient has been started on empiric Rocephin for possible SBP. If blood pressure remains hypotensive, may require vasopressors Seen today on 05/27/2024, remains in the ICU, her EGD yesterday showed 1 cm varices, no active bleeding. Patient is on room air, does not seem to be in any distress, she is however hypotensive still requiring midodrine and requiring norepinephrine at 0.04 mcg/kg/min. Nephrology saw the patient, and trying to give the patient intermittent doses of albumin followed by Lasix, patient is developing worsening ascites and worsening fluid retention. Not receiving any IV fluids at this point, and did not require any further blood transfusion. She only had 1 unit of packed RBCs since she came into the ICU. WBC count today is 11.4 hemoglobin is 8.6 INR is 1.8 electrolytes are normal BUN is 30 creatinine 1.16 Patient was seen today on 05/22/2024, remains in the ICU, still requiring a small dose of norepinephrine at 0.03 mcg/kg/min developing ascites again, hemoglobin is stable at 7.9. Patient did not improve much with albumin Lasix yesterday as recommended by nephrology, continues to build up significant amount of fluids in her abdomen. She is supposedly scheduled to have repeat paracentesis on Thursday next week. WBC count is 8.5 hemoglobin 7.9. E lectrolytes are normal potassium is 3.2 BUN is 23 creatinine 1.13. Objective - Vital Signs Vital signs: Vital Signs Temp 98.1 F 05/28/24 08:00 Pulse 93 05/28/24 11:15 Resp 14 05/28/24 11:15 BP 112/51 05/28/24 11:15 Pulse Ox 98 05/28/24 11:15 FiO2 Intake & Output 05/27/24 05/28/24 05/28/24 18:59 06:59 18:59 Intake Total 1520.983 624.454 364.957 Output Total 2260 635 340 Balance -739.017 -10.546 24.957 Weight 129.7 kg Intake: IV 250 120 50 0.9NS 100 120 50 Sodium Chloride 0.9% 1, 150 000 ml @ 150 mls/hr IV . Q6H40M [facility] Rx#:[id number] Intake, IV Titration 395.983 282.454 314.957 Amount Albumin Human 25% 50 ml 50 In Empty Bag 1 bag @ 50 mls/hr IVPB Q1H [facility] Rx#: [id number] Albumin Human 25% 50 ml 100 In Empty Bag 1 bag @ 50 mls/hr IVPB Q1H [facility] Rx#: [id number] Norepinephrine 4 mg In 195.983 232.454 164.957 Sodium Chloride 0.9% 250 ml @ 0.03 MCG/KG/MIN 13. 48 mls/hr IV .[id number] [facility] Rx#:[id number] Sodium Ferric Gluconat- 100 100 Sucrose 125 mg In Sodium Chloride 0.9% 100 ml @ 100 mls/hr IVPB DAILY [facility] Rx#:[id number] cefTRIAXone 2 gm In 50 Sodium Chloride 0.9% 50 ml @ 100 mls/hr IVPB Q24HR [facility] Rx#:[id number] Oral 875 222 Output: Urine 2260 635 340 Other: Voiding Method Indwelling Catheter Indwelling Catheter Indwelling Catheter - Exam GENERAL EXAM: 44-year-old female in no distress on room air HEAD: Normocephalic and atraumatic EYES: Normal reaction of pupils, equal size. NOSE: Clear with pink turbinates. THROAT: No erythema or exudates. NECK: No masses, no JVD. CHEST: No chest wall deformity. LUNGS: Equal air entry with no crackles, wheeze, rhonchi or dullness. On 2 L/min nasal cannula. No conversational dyspnea or accessory muscle use.. CVS: S1 and S2 normal with no audible murmur, regular rhythm. No extra heart sounds ABDOMEN: Abdominal distention/ascites, active bowel sounds, no hepatosplenomegaly, no guarding or rigidity. SKIN: No rashes CENTRAL NERVOUS SYSTEM: Alert and oriented x 3 no gross focal deficit EXTREMITIES: 3+ bipedal edema - Labs CBC & Chem 7: 05/28/24 05:05 05/28/24 05:05 Labs: Abnormal Lab Results - Last 24 Hours (Table) 05/25/24 05/27/24 05/27/24 Range/Units 11:50 17:01 23:33 RBC (3.80-5.40) m/uL Hgb 7.3 L D (11.4-16.0) gm/dL Hct (34.0-46.0) % MCV (80.0-100.0) fL RDW (11.5-15.5) % Plt Count (150-450) k/uL Macrocytosis Sodium (137-145) mmol/L Potassium (3.5-5.1) mmol/L Chloride (98-107) mmol/L Carbon Dioxide (22-30) mmol/L BUN (7-17) mg/dL Creatinine (0.52-1.04) mg/dL Glucose (74-99) mg/dL POC Glucose (mg/dL) 144 H 166 H (70-110) mg/dL Calcium (8.4-10.2) mg/dL 05/28/24 05/28/24 05/28/24 Range/Units 05:05 05:05 05:30 RBC 2.39 L (3.80-5.40) m/uL Hgb 7.9 L (11.4-16.0) gm/dL Hct 24.9 L (34.0-46.0) % MCV 104.3 H (80.0-100.0) fL RDW 22.6 H (11.5-15.5) % Plt Count 64 L (150-450) k/uL Macrocytosis Marked A Sodium 132 L (137-145) mmol/L Potassium 3.2 L (3.5-5.1) mmol/L Chloride 109 H (98-107) mmol/L Carbon Dioxide 16 L (22-30) mmol/L BUN 23 H (7-17) mg/dL Creatinine 1.13 H (0.52-1.04) mg/dL Glucose 124 H (74-99) mg/dL POC Glucose (mg/dL) 140 H (70-110) mg/dL Calcium 7.8 L (8.4-10.2) mg/dL Microbiology - Last 24 Hours (Table) 05/25/24 11:35 Anaerobic Culture - Preliminary Ascites Fluid 05/25/24 11:35 Gram Stain - Preliminary Ascites Fluid Body Fluid Culture - Preliminary 05/26/24 05:40 Blood Culture - Preliminary Blood Assessment and Plan Assessment: Impression: Acute upper GI bleed, patient's having multiple melanotic stools, status post 1 unit of packed RBCs Abdominal ascites, status post large-volume paracentesis, total of 11 L was removed, Hypotension, secondary to combination of above, patient is presently on midodrine and on norepinephrine low-dose Abdominal pain Acute leukocytosis History of liver cirrhosis, secondary to chronic alcohol use History of GI bleed, gastric ulcer, and small esophageal varices; last EGD done 02/19/24 Hypervolemic hyponatremia Severe hypokalemia, being replaced per protocol History of UTI/VRE History of recent cholecystectomy. History of COPD. History of bipolar disorder. History of chronic thrombocytopenia Chronic kidney disease, secondary to hepatorenal syndrome History of alcoholism, last reported drink > 6 months ago. Recommendation: Continue present supportive care measures Continue norepinephrine and titrate accordingly, once discontinued patient could be transferred to medical floor. Considering the high volume paracentesis, no wonder the patient is hypotensive although she did receive albumin infusions Patient is developing worsening ascites again, not improving much with albumin and Lasix may require another paracentesis in the next few days Cultures from ascites fluid have been negative Once the patient is off norepinephrine, can be transferred out of the ICU to regular medical floor Will continue to follow Time with Patient: Less than 30
[2024-05-28] MEDS: SPIRONOLACTONE 25 MG TAB PO SCH (12:26)
[2024-05-28] MEDS: FUROSEMIDE 10 MG/ML 4 ML VIAL IV SCH (12:27)
--- NOTE | 2024-05-28 13:01 | P.PN ---
Subjective Progress Note Date: 05/28/24 No acute events overnight. Endorses minimal drainage from right lateral lap satish port site. States drainage was not enough to saturate gauze dressing. No recent abdominal pain. No nausea or vomiting. No fevers or chills. No shortness of breath or chest pain. Endorses flatus. Objective - Vital Signs Vital signs: Vital Signs Temp 98.1 F 05/28/24 08:00 Pulse 93 05/28/24 11:15 Resp 14 05/28/24 11:15 BP 112/51 05/28/24 11:15 Pulse Ox 98 05/28/24 11:15 FiO2 Intake & Output 05/27/24 05/28/24 05/28/24 18:59 06:59 18:59 Intake Total 1520.983 624.454 374.957 Output Total 2260 635 440 Balance -739.017 -10.546 -65.043 Weight 129.7 kg Intake: IV 250 120 60 0.9NS 100 120 60 Sodium Chloride 0.9% 1, 150 000 ml @ 150 mls/hr IV . Q6H40M [facility] Rx#:[id number] Intake, IV Titration 395.983 282.454 314.957 Amount Albumin Human 25% 50 ml 50 In Empty Bag 1 bag @ 50 mls/hr IVPB Q1H [facility] Rx#: [id number] Albumin Human 25% 50 ml 100 In Empty Bag 1 bag @ 50 mls/hr IVPB Q1H [facility] Rx#: [id number] Norepinephrine 4 mg In 195.983 232.454 164.957 Sodium Chloride 0.9% 250 ml @ 0.03 MCG/KG/MIN 13. 48 mls/hr IV .[id number] [facility] Rx#:[id number] Sodium Ferric Gluconat- 100 100 Sucrose 125 mg In Sodium Chloride 0.9% 100 ml @ 100 mls/hr IVPB DAILY [facility] Rx#:[id number] cefTRIAXone 2 gm In 50 Sodium Chloride 0.9% 50 ml @ 100 mls/hr IVPB Q24HR [facility] Rx#:[id number] Oral 875 222 Output: Urine 2260 635 440 Other: Voiding Method Indwelling Catheter Indwelling Catheter Indwelling Catheter - Exam Gen: AxO, NAD Pulm: non-labored respirations Abd: soft, distended with fluid wave. Non-tender. Incisions; C/D/I. Minimal serous strikethrough seen on dressing over right lateral port site Extrem: no edema seen - Labs CBC & Chem 7: 05/28/24 05:05 05/28/24 05:05 Labs: Abnormal Lab Results - Last 24 Hours (Table) 05/25/24 05/27/24 05/27/24 Range/Units 11:50 17:01 23:33 RBC (3.80-5.40) m/uL Hgb 7.3 L D (11.4-16.0) gm/dL Hct (34.0-46.0) % MCV (80.0-100.0) fL RDW (11.5-15.5) % Plt Count (150-450) k/uL Macrocytosis Sodium (137-145) mmol/L Potassium (3.5-5.1) mmol/L Chloride (98-107) mmol/L Carbon Dioxide (22-30) mmol/L BUN (7-17) mg/dL Creatinine (0.52-1.04) mg/dL Glucose (74-99) mg/dL POC Glucose (mg/dL) 144 H 166 H (70-110) mg/dL Calcium (8.4-10.2) mg/dL 05/28/24 05/28/24 05/28/24 Range/Units 05:05 05:05 05:30 RBC 2.39 L (3.80-5.40) m/uL Hgb 7.9 L (11.4-16.0) gm/dL Hct 24.9 L (34.0-46.0) % MCV 104.3 H (80.0-100.0) fL RDW 22.6 H (11.5-15.5) % Plt Count 64 L (150-450) k/uL Macrocytosis Marked A Sodium 132 L (137-145) mmol/L Potassium 3.2 L (3.5-5.1) mmol/L Chloride 109 H (98-107) mmol/L Carbon Dioxide 16 L (22-30) mmol/L BUN 23 H (7-17) mg/dL Creatinine 1.13 H (0.52-1.04) mg/dL Glucose 124 H (74-99) mg/dL POC Glucose (mg/dL) 140 H (70-110) mg/dL Calcium 7.8 L (8.4-10.2) mg/dL Microbiology - Last 24 Hours (Table) 05/25/24 11:35 Anaerobic Culture - Preliminary Ascites Fluid 05/25/24 11:35 Gram Stain - Preliminary Ascites Fluid Body Fluid Culture - Preliminary 05/26/24 05:40 Blood Culture - Preliminary Blood Assessment and Plan Assessment: Patient is a 4-year-old female with recent laparoscopic cholecystectomy, ascites who presents with ascites drainage from laparoscopic port sites. Plan: -Diet as tolerated -Continue dressings over port sites as needed -Paracentesis per ICU/primary -Activity as tolerated -DVT/GI PPx -No acute surgical intervention Maninder Wallace M.D. General Surgery
--- NOTE | 2024-05-28 13:30 | P.PN ---
Subjective Progress Note Date: 05/28/24 Principal diagnosis: Reason for follow-up is leukocytosis and lower extremity cellulitis Patient is a 44-year-old female with a past medical history significant for cirrhosis of the liver bipolar recurrent admission to the hospital for ascites and lower extremity cellulitis patient was brought into the hospital concerning for increasing swelling to the abdomen as well as lower extremity patient did have elevated white count prompted this consultation. On today's evaluation that is 05/28/2024, the patient continues to be afebrile, the patient is on room air and breathing comfortably, the Pt denies having any chest pain or cough, the patient did have some abdominal distention but denies significant abdominal pain no nausea no vomiting or any worsening pain to lower extremity. Patient white count normalized to 8.5, creatinine is 1.13 blood and urine culture have been negative Objective - Vital Signs Vital signs: Vital Signs Temp 98.2 F 05/28/24 12:00 Pulse 92 05/28/24 13:00 Resp 11 L 05/28/24 13:00 BP 99/37 05/28/24 13:00 Pulse Ox 97 05/28/24 13:00 FiO2 Intake & Output 05/27/24 05/28/24 05/28/24 18:59 06:59 18:59 Intake Total 1520.983 624.454 374.957 Output Total 2260 635 440 Balance -739.017 -10.546 -65.043 Weight 129.7 kg Intake: IV 250 120 60 0.9NS 100 120 60 Sodium Chloride 0.9% 1, 150 000 ml @ 150 mls/hr IV . Q6H40M [facility] Rx#:[id number] Intake, IV Titration 395.983 282.454 314.957 Amount Albumin Human 25% 50 ml 50 In Empty Bag 1 bag @ 50 mls/hr IVPB Q1H [facility] Rx#: [id number] Albumin Human 25% 50 ml 100 In Empty Bag 1 bag @ 50 mls/hr IVPB Q1H [facility] Rx#: [id number] Norepinephrine 4 mg In 195.983 232.454 164.957 Sodium Chloride 0.9% 250 ml @ 0.03 MCG/KG/MIN 13. 48 mls/hr IV .[id number] [facility] Rx#:[id number] Sodium Ferric Gluconat- 100 100 Sucrose 125 mg In Sodium Chloride 0.9% 100 ml @ 100 mls/hr IVPB DAILY [facility] Rx#:[id number] cefTRIAXone 2 gm In 50 Sodium Chloride 0.9% 50 ml @ 100 mls/hr IVPB Q24HR [facility] Rx#:[id number] Oral 875 222 Output: Urine 2260 635 440 Other: Voiding Method Indwelling Catheter Indwelling Catheter Indwelling Catheter - Exam GENERAL DESCRIPTION: Middle-age female lying in bed in no distress RESPIRATORY SYSTEM: Unlabored breathing , decreased breath sounds at bases HEART: S1 S2 regular rate and rhythm , ABDOMEN: Soft , no tenderness EXTREMITIES: Bilateral legs are currently wrapped in Theo wrap did have some drainage of the right foot wound but patient mention overall wound is looking better at the time of dressing changes - Labs CBC & Chem 7: 05/28/24 05:05 05/28/24 05:05 Labs: Abnormal Lab Results - Last 24 Hours (Table) 05/25/24 05/27/24 05/27/24 Range/Units 11:50 17:01 23:33 RBC (3.80-5.40) m/uL Hgb 7.3 L D (11.4-16.0) gm/dL Hct (34.0-46.0) % MCV (80.0-100.0) fL RDW (11.5-15.5) % Plt Count (150-450) k/uL Macrocytosis Sodium (137-145) mmol/L Potassium (3.5-5.1) mmol/L Chloride (98-107) mmol/L Carbon Dioxide (22-30) mmol/L BUN (7-17) mg/dL Creatinine (0.52-1.04) mg/dL Glucose (74-99) mg/dL POC Glucose (mg/dL) 144 H 166 H (70-110) mg/dL Calcium (8.4-10.2) mg/dL 05/28/24 05/28/24 05/28/24 Range/Units 05:05 05:05 05:30 RBC 2.39 L (3.80-5.40) m/uL Hgb 7.9 L (11.4-16.0) gm/dL Hct 24.9 L (34.0-46.0) % MCV 104.3 H (80.0-100.0) fL RDW 22.6 H (11.5-15.5) % Plt Count 64 L (150-450) k/uL Macrocytosis Marked A Sodium 132 L (137-145) mmol/L Potassium 3.2 L (3.5-5.1) mmol/L Chloride 109 H (98-107) mmol/L Carbon Dioxide 16 L (22-30) mmol/L BUN 23 H (7-17) mg/dL Creatinine 1.13 H (0.52-1.04) mg/dL Glucose 124 H (74-99) mg/dL POC Glucose (mg/dL) 140 H (70-110) mg/dL Calcium 7.8 L (8.4-10.2) mg/dL Microbiology - Last 24 Hours (Table) 05/26/24 05:40 Blood Culture - Preliminary Blood 05/25/24 11:35 Anaerobic Culture - Preliminary Ascites Fluid 05/25/24 11:35 Gram Stain - Preliminary Ascites Fluid Body Fluid Culture - Preliminary Assessment and Plan (1) Bilateral lower leg cellulitis Current Visit: Yes Status: Acute Code(s): L03.116 - CELLULITIS OF LEFT LOWER LIMB; L03.115 - CELLULITIS OF RIGHT LOWER LIMB SNOMED Code(s): 026633219 (2) Wound of right foot Current Visit: Yes Status: Acute Code(s): S91.301A - UNSPECIFIED OPEN WOUND, RIGHT FOOT, INITIAL ENCOUNTER SNOMED Code(s): 984356113 (3) Leukocytosis Current Visit: Yes Status: Acute Code(s): D72.829 - ELEVATED WHITE BLOOD CELL COUNT, UNSPECIFIED SNOMED Code(s): 328275873 Plan: 1patient with a leukocytosis in this patient who did have a cirrhosis of the liver now presented to the hospital with increasing abdominal distention but no significant tenderness clinically not behaving as SBP but not entirely excluded patient did have bilateral lower extremity swelling and redness and complaint of cellulitis likely etiology of this elevated white count 2-local wound care to the right foot wound with the Medihoney followed by moist dressing change daily 3-patient patient is afebrile white count has normalized culture be negative for any resistant pathogen continue with Rocephin 2 g daily Dictation was produced using mBloxation software. please excuse any grammatical, word or spelling errors. Time with Patient: Less than 30
[2024-05-28 16:37] LABS: Glucose,Whole Blood 142 mg/dL (70-110)
--- NOTE | 2024-05-28 23:30 | PN ---
PROGRESS NOTE SUBJECTIVE: A 44-year-old white female is in ICU for hepatic cirrhosis, encephalopathy with diastolic heart failure, hypotension, on norepinephrine due to thoracentesis, 11 L of fluid removed last week. OBJECTIVE: VITAL SIGNS: Temperature 98.2, blood pressure 99 to 100 over 50s to 60s, respiratory rate 16 to 18, and O2 of 97%. CARDIOVASCULAR: S1 and S2. LUNGS: Scattered wheeze and rhonchi. HEMATOLOGIC: 3+ edema. NEUROLOGIC: Cranial nerves intact. PSYCH: Fair mood and affect. Third spacing of fluids. ASSESSMENT: Cirrhosis, hepatic encephalopathy, acute on chronic anemia, hyponatremia, hypokalemia, ascitic drainage from the laparoscopic port sites, paracentesis per ICU primary. Continue with diuresis with Lasix 20 mg a day and spironolactone [address] Cuenca. I discussed this with diuretic use for the patient when she goes home, maybe 50 spironolactone and 20 mg of Lasix and we will follow her outpatient when she is stabilized with her blood pressure in the ICU on norepinephrine when we wean. MMODL / IJN: [id number] /
[2024-05-29] MEDS: POTASSIUM CHLORIDE ER 20 MEQ TAB.ER PO SCH (01:13)
[2024-05-29 05:55] LABS: Anisocytosis Moderate; Basophils % (A) 0 %; Eosinophils # (A) 0.6 k/uL (0-0.7); Eosinophils % (A) 8 %; HCT 24.6 % (34.0-46.0); HGB 7.8 gm/dL (11.4-16.0); Hypochromasia Marked; Lymphocytes # (A) 1.4 k/uL (1.0-4.8); Lymphocytes % (A) 20 %; MCH 33.4 pg (25.0-35.0); MCHC 31.8 g/dL (31.0-37.0); MCV 104.9 fL (80.0-100.0); Macrocytosis Marked; Monocytes # (A) 0.4 k/uL (0-1.0); Monocytes % (A) 5 %; Neutrophils # (A) 4.5 k/uL (1.3-7.7); Neutrophils % (A) 64 %; RBC 2.35 m/uL (3.80-5.40); RDW 22.5 % (11.5-15.5); WBC 7.1 k/uL (3.8-10.6)
[2024-05-29 06:01] LABS: Platelet Count 60 k/uL (150-450)
[2024-05-29 06:11] LABS: ALT 12 U/L (4-34); AST 27 U/L (14-36); African American GFR (CKD) 66 (>60 ml/min/1.73 sqM); Alkaline Phosphatase 189 U/L (38-126); Anion Gap 3 mmol/L; Blood Urea Nitrogen 18 mg/dL (7-17); Calcium 7.8 mg/dL (8.4-10.2); Carbon Dioxide 16 mmol/L (22-30); Chloride 111 mmol/L (98-107); Glucose 86 mg/dL (74-99); Non-African American GFR(CKD) 57 (>60 ml/min/1.73 sqM); Potassium 4.4 mmol/L (3.5-5.1); Sodium 130 mmol/L (137-145); Total Bilirubin 1.9 mg/dL (0.2-1.3)
[2024-05-29 06:24] LABS: Anisocytosis (M) Present; Poikilocytosis (M) Present
[2024-05-29 08:32] LABS: % Iron Saturation 89.92 (12.00-45.00)
--- NOTE | 2024-05-29 09:46 | P.PN ---
Subjective Patient is seen in follow-up for chronic kidney disease. Renal function stable. Urine output improved after IV Lasix but then tapers down. Remains off vasopressors. Vital signs are stable. General: No acute distress. HEENT: Head exam is unremarkable. LUNGS: No audible rhonchi or wheezes. HEART: Rate and Rhythm are regular. ABDOMEN: Distention noted. Nontender. EXTREMITITES: 2+ edema. Objective - Vital Signs Vital signs: Vital Signs Temp 99.1 F 05/29/24 08:00 Pulse 90 05/29/24 09:00 Resp 14 05/29/24 09:00 BP 104/51 05/29/24 09:00 Pulse Ox 95 05/29/24 09:00 FiO2 Intake & Output 05/28/24 05/29/24 05/29/24 18:59 06:59 18:59 Intake Total 1382.929 490 550 Output Total 2155 375 225 Balance -772.071 115 325 Weight 133.5 kg Intake: IV 90 50 0.9NS 90 cefTRIAXone 2 gm In 50 Sodium Chloride 0.9% 50 ml @ 100 mls/hr IVPB Q24HR [facility] Rx#:[id number] Intake, IV Titration 332.929 Amount Norepinephrine 4 mg In 182.929 Sodium Chloride 0.9% 250 ml @ 0.03 MCG/KG/MIN 13. 48 mls/hr IV .[id number] [facility] Rx#:[id number] Sodium Ferric Gluconat- 100 Sucrose 125 mg In Sodium Chloride 0.9% 100 ml @ 100 mls/hr IVPB DAILY [facility] Rx#:[id number] cefTRIAXone 2 gm In 50 Sodium Chloride 0.9% 50 ml @ 100 mls/hr IVPB Q24HR [facility] Rx#:[id number] Oral 960 490 500 Output: Urine 2155 375 225 Other: Voiding Method Indwelling Catheter Indwelling Catheter Indwelling Catheter - Labs CBC & Chem 7: 05/29/24 05:44 05/29/24 05:44 Labs: Abnormal Lab Results - Last 24 Hours (Table) 05/25/24 05/28/24 05/28/24 Range/Units 11:50 14:15 16:36 RBC (3.80-5.40) m/uL Hgb 7.3 L D (11.4-16.0) gm/dL Hct (34.0-46.0) % MCV (80.0-100.0) fL RDW (11.5-15.5) % Plt Count (150-450) k/uL Macrocytosis Sodium (137-145) mmol/L Potassium 3.0 L (3.5-5.1) mmol/L Chloride (98-107) mmol/L Carbon Dioxide (22-30) mmol/L BUN (7-17) mg/dL Creatinine (0.52-1.04) mg/dL POC Glucose (mg/dL) 142 H (70-110) mg/dL Calcium (8.4-10.2) mg/dL TIBC 129 L (228-460) UG/DL % Saturation 89.92 H (12.00-45.00) Transferrin 92.2 L (204.0-354.0) mg/dL Ferritin 459.0 H (10.0-291.0) ng/mL Total Bilirubin (0.2-1.3) mg/dL Alkaline Phosphatase (38-126) U/L Total Protein (6.3-8.2) g/dL Albumin (3.5-5.0) g/dL 05/28/24 05/29/24 05/29/24 Range/Units 19:00 05:44 05:44 RBC 2.35 L (3.80-5.40) m/uL Hgb 7.8 L (11.4-16.0) gm/dL Hct 24.6 L (34.0-46.0) % MCV 104.9 H (80.0-100.0) fL RDW 22.5 H (11.5-15.5) % Plt Count 60 L (150-450) k/uL Macrocytosis Marked A Sodium 130 L (137-145) mmol/L Potassium 3.3 L (3.5-5.1) mmol/L Chloride 111 H (98-107) mmol/L Carbon Dioxide 16 L (22-30) mmol/L BUN 18 H (7-17) mg/dL Creatinine 1.18 H (0.52-1.04) mg/dL POC Glucose (mg/dL) (70-110) mg/dL Calcium 7.8 L (8.4-10.2) mg/dL TIBC (228-460) UG/DL % Saturation (12.00-45.00) Transferrin (204.0-354.0) mg/dL Ferritin (10.0-291.0) ng/mL Total Bilirubin 1.9 H (0.2-1.3) mg/dL Alkaline Phosphatase 189 H (38-126) U/L Total Protein 4.0 L (6.3-8.2) g/dL Albumin 2.0 L (3.5-5.0) g/dL Microbiology - Last 24 Hours (Table) 05/25/24 11:35 Gram Stain - Preliminary Ascites Fluid Body Fluid Culture - Preliminary 05/25/24 11:35 Anaerobic Culture - Preliminary Ascites Fluid 05/26/24 05:40 Blood Culture - Preliminary Blood Assessment and Plan Plan: Assessment: 1. Chronic kidney disease stage IIIa with baseline creatinine 1.3-1.5 secondary to hepatorenal syndrome. GFR at baseline. 2. Hypervolemic hyponatremia. Improved. 3. Anemia status post blood transfusion this admission. EGD done this admission showed distal esophageal varices and reflux esophagitis. Iron replete. 4. Volume overload with ascites status post paracentesis with 11 L drained May 25, 2024. 5. Liver cirrhosis. 6. Hypokalemia from diuresis. Replaced. Better. 7. Metabolic acidosis secondary to chronic kidney disease and compensation for underlying respiratory alkalosis from cirrhosis. Plan: Low-salt diet and 1200 cc fluid restriction. Increase Lasix frequency to twice daily. Maintain spironolactone 25 mg twice daily. Continue to monitor renal function and urine output. Avoid nephrotoxins. Status post IV albumin given May 27, 2024. Increase frequency of bicarb to twice daily.
--- NOTE | 2024-05-29 11:06 | P.PN ---
Subjective Progress Note Date: 05/29/24 Principal diagnosis: Abdominal ascites Patient remains in the ICU. No further bleeding. Having some ascitic drainage through the recent paracentesis site. Denies pain. Objective - Vital Signs Vital signs: Vital Signs Temp 99.1 F 05/29/24 08:00 Pulse 90 05/29/24 09:00 Resp 14 05/29/24 09:00 BP 104/51 05/29/24 09:00 Pulse Ox 95 05/29/24 09:00 FiO2 Intake & Output 05/28/24 05/29/24 05/29/24 18:59 06:59 18:59 Intake Total 1382.929 490 550 Output Total 2155 375 225 Balance -772.071 115 325 Weight 133.5 kg Intake: IV 90 50 0.9NS 90 cefTRIAXone 2 gm In 50 Sodium Chloride 0.9% 50 ml @ 100 mls/hr IVPB Q24HR [facility] Rx#:[id number] Intake, IV Titration 332.929 Amount Norepinephrine 4 mg In 182.929 Sodium Chloride 0.9% 250 ml @ 0.03 MCG/KG/MIN 13. 48 mls/hr IV .[id number] [facility] Rx#:[id number] Sodium Ferric Gluconat- 100 Sucrose 125 mg In Sodium Chloride 0.9% 100 ml @ 100 mls/hr IVPB DAILY [facility] Rx#:[id number] cefTRIAXone 2 gm In 50 Sodium Chloride 0.9% 50 ml @ 100 mls/hr IVPB Q24HR [facility] Rx#:[id number] Oral 960 490 500 Output: Urine 2155 375 225 Other: Voiding Method Indwelling Catheter Indwelling Catheter Indwelling Catheter - Exam Abdomen: Soft, distended, edematous abdominal wall, serous fluid from right lower quadrant - Labs CBC & Chem 7: 05/29/24 05:44 05/29/24 05:44 Labs: Abnormal Lab Results - Last 24 Hours (Table) 05/28/24 05/28/24 05/28/24 Range/Units 14:15 16:36 19:00 RBC (3.80-5.40) m/uL Hgb (11.4-16.0) gm/dL Hct (34.0-46.0) % MCV (80.0-100.0) fL RDW (11.5-15.5) % Plt Count (150-450) k/uL Macrocytosis Sodium (137-145) mmol/L Potassium 3.0 L 3.3 L (3.5-5.1) mmol/L Chloride (98-107) mmol/L Carbon Dioxide (22-30) mmol/L BUN (7-17) mg/dL Creatinine (0.52-1.04) mg/dL POC Glucose (mg/dL) 142 H (70-110) mg/dL Calcium (8.4-10.2) mg/dL TIBC 129 L (228-460) UG/DL % Saturation 89.92 H (12.00-45.00) Transferrin 92.2 L (204.0-354.0) mg/dL Ferritin 459.0 H (10.0-291.0) ng/mL Total Bilirubin (0.2-1.3) mg/dL Alkaline Phosphatase (38-126) U/L Total Protein (6.3-8.2) g/dL Albumin (3.5-5.0) g/dL 05/29/24 05/29/24 Range/Units 05:44 05:44 RBC 2.35 L (3.80-5.40) m/uL Hgb 7.8 L (11.4-16.0) gm/dL Hct 24.6 L (34.0-46.0) % MCV 104.9 H (80.0-100.0) fL RDW 22.5 H (11.5-15.5) % Plt Count 60 L (150-450) k/uL Macrocytosis Marked A Sodium 130 L (137-145) mmol/L Potassium (3.5-5.1) mmol/L Chloride 111 H (98-107) mmol/L Carbon Dioxide 16 L (22-30) mmol/L BUN 18 H (7-17) mg/dL Creatinine 1.18 H (0.52-1.04) mg/dL POC Glucose (mg/dL) (70-110) mg/dL Calcium 7.8 L (8.4-10.2) mg/dL TIBC (228-460) UG/DL % Saturation (12.00-45.00) Transferrin (204.0-354.0) mg/dL Ferritin (10.0-291.0) ng/mL Total Bilirubin 1.9 H (0.2-1.3) mg/dL Alkaline Phosphatase 189 H (38-126) U/L Total Protein 4.0 L (6.3-8.2) g/dL Albumin 2.0 L (3.5-5.0) g/dL Microbiology - Last 24 Hours (Table) 05/25/24 11:35 Gram Stain - Preliminary Ascites Fluid Body Fluid Culture - Preliminary 05/25/24 11:35 Anaerobic Culture - Preliminary Ascites Fluid 05/26/24 05:40 Blood Culture - Preliminary Blood Assessment and Plan (1) Abdominal pain Narrative/Plan: 44-year-old female with ascitic drainage that is persistent. Continue optimization of liver function. Monitor for recurrent bleeding. Will follow. Current Visit: Yes Status: Acute Code(s): R10.9 - UNSPECIFIED ABDOMINAL PAIN SNOMED Code(s): 20110381
--- NOTE | 2024-05-29 12:40 | P.PN ---
Subjective Progress Note Date: 05/29/24 Principal diagnosis: Abdominal ascites and upper GI bleeding Patient is a 44-year-old white female with past medical history significant for cirrhosis of the liver, alcohol induced, abdominal ascites requiring frequent paracentesis, UTI with VRE. She is very debilitated, and has had frequent hospitalizations since January of this year, mostly due to complications due to her liver disease. Of note, recently discharged home from this facility May 16, she was apparently admitted for fluid overload and lower extremity cellulitis. Patient returns to the emergency department 05/24/2024 with a chief complaint of abdominal pain. Denies fevers. She does undergo frequent p aracentesis. She has positive fluid balance, and severe lower extremity edema. Admits 20 pound weight gain since her hospital discharge on May 16. Yesterday, underwent large-volume paracentesis, total of 11L was removed. Following this she became hypotensive and patient was transferred to the intensive care unit. She did receive 50 g of 25% albumin. She also was noted to have some dark tarry stools that started yesterday. Hemoglobin has been trending down, most recent 7 g/dL. She is receiving 1 unit PRBCs at the moment. She does have history of GI bleeding. Most recent EGD done February 19, 2024 showing a small antral gastric ulcer with no active bleeding and small distal esophageal varices. Patient currently being evaluated in the ICU, she is alert and oriented. Continues to have dark tarry stools. Fecal occult positive. Blood pressure slightly hypotensive currently 86/46 mmHg. She is receiving a unit of PRBCs at the moment. Normal saline continues at 150 mL/h. Patient did receive an additional 1 L fluid bolus earlier. May require vasopressors if she remains hypotensive. Fluid status appears positive. Urine output is adequate, around 50 to 100 cc/h. Patient denies any urinary symptoms at this time, no burning/dysuria, no hematuria, no urinary frequency. On her recent previous hospital discharge, her Lasix was discontinued. She has significant lower extremity swelling, her legs are wrapped with Theo bandages. Most recent CBC from yesterday: WBC count 15.1, hemoglobin 7, hematocrit 22, platelets 86. CMP from yesterday: Sodium 127, potassium 3.1, chloride 99, serum bicarb 22, BUN 41, creatinine 1.31, glucose 100. Urinalysis was sent. LFTs mildly elevated. Patient has been started on empiric Rocephin for possible SBP. If blood pressure remains hypotensive, may require vasopressors Seen today on 05/27/2024, remains in the ICU, her EGD yesterday showed 1 cm varices, no active bleeding. Patient is on room air, does not seem to be in any distress, she is however hypotensive still requiring midodrine and requiring norepinephrine at 0.04 mcg/kg/min. Nephrology saw the patient, and trying to give the patient intermittent doses of albumin followed by Lasix, patient is developing worsening ascites and worsening fluid retention. Not receiving any IV fluids at this point, and did not require any further blood transfusion. She only had 1 unit of packed RBCs since she came into the ICU. WBC count today is 11.4 hemoglobin is 8.6 INR is 1.8 electrolytes are normal BUN is 30 creatinine 1.16 Patient was seen today on 05/28/2024, remains in the ICU, still requiring a small dose of norepinephrine at 0.03 mcg/kg/min developing ascites again, hemoglobin is stable at 7.9. Patient did not improve much with albumin Lasix yesterday as recommended by nephrology, continues to build up significant amount of fluids in her abdomen. She is supposedly scheduled to have repeat paracentesis on Thursday next week. WBC count is 8.5 hemoglobin 7.9. E lectrolytes are normal potassium is 3.2 BUN is 23 creatinine 1.13. Patient was seen on 05/29/24, patient is doing well, remains in the ICU, she is off norepinephrine at this point.Patient is hemodynamically stable, her CBC is unremarkable, hemoglobin is holding at 7.8, patient received only 1 unit of packed RBCs since admission to the ICU electrolytes are noted sodium is 130 potassium 4.4 bicarb is 16 BUN is 18 creatinine 1.18. Patient is developing worsening ascites, now she is losing from the previous site of paracentesis in the right lower quadrant area. A collecting ostomy bag has been placed over the site. No cough no wheezing no shortness of breath, patient is on room air. Will receiving Lasix 40 mg IV push every 12 hours remains on Rocephin. My plan today is to transfer the patient out of the ICU to a medical surgical bed Objective - Vital Signs Vital signs: Vital Signs Temp 99.1 F 05/29/24 08:00 Pulse 90 05/29/24 09:00 Resp 14 05/29/24 09:00 BP 104/51 05/29/24 09:00 Pulse Ox 95 05/29/24 09:00 FiO2 Intake & Output 05/28/24 05/29/24 05/29/24 18:59 06:59 18:59 Intake Total 1382.929 490 550 Output Total 2155 375 1025 Balance -772.071 115 -475 Weight 133.5 kg Intake: IV 90 50 0.9NS 90 cefTRIAXone 2 gm In 50 Sodium Chloride 0.9% 50 ml @ 100 mls/hr IVPB Q24HR JOC[facility]N Rx#:[id number] Intake, IV Titration 332.929 Amount Norepinephrine 4 mg In 182.929 Sodium Chloride 0.9% 250 ml @ 0.03 MCG/KG/MIN 13. 48 mls/hr IV .[id number] JOC[facility]N Rx#:[id number] Sodium Ferric Gluconat- 100 Sucrose 125 mg In Sodium Chloride 0.9% 100 ml @ 100 mls/hr IVPB DAILY JOC[facility]N Rx#:[id number] cefTRIAXone 2 gm In 50 Sodium Chloride 0.9% 50 ml @ 100 mls/hr IVPB Q24HR JOC[facility]N Rx#:[id number] Oral 960 490 500 Output: Urine 2155 375 1025 Other: Voiding Method Indwelling Catheter Indwelling Catheter Indwelling Catheter - Exam GENERAL EXAM: 44-year-old female in no distress on room air HEAD: Normocephalic and atraumatic EYES: Normal reaction of pupils, equal size. NOSE: Clear with pink turbinates. THROAT: No erythema or exudates. NECK: No masses, no JVD. CHEST: No chest wall deformity. LUNGS: Equal air entry with no crackles, wheeze, rhonchi or dullness. On 2 L/min nasal cannula. No conversational dyspnea or accessory muscle use.. CVS: S1 and S2 normal with no audible murmur, regular rhythm. No extra heart sounds ABDOMEN: Abdominal distention/ascites, active bowel sounds, no hepatosplenomegaly, no guarding or rigidity. Small amount of fluid oozing from the previous puncture site/paracentesis site in the right lower quadrant fluid is being collected in an ostomy bag SKIN: No rashes CENTRAL NERVOUS SYSTEM: Alert and oriented x 3 no gross focal deficit EXTREMITIES: 3+ bipedal edema - Labs CBC & Chem 7: 05/29/24 05:44 05/29/24 05:44 Labs: Abnormal Lab Results - Last 24 Hours (Table) 05/28/24 05/28/24 05/28/24 Range/Units 14:15 16:36 19:00 RBC (3.80-5.40) m/uL Hgb (11.4-16.0) gm/dL Hct (34.0-46.0) % MCV (80.0-100.0) fL RDW (11.5-15.5) % Plt Count (150-450) k/uL Macrocytosis Sodium (137-145) mmol/L Potassium 3.0 L 3.3 L (3.5-5.1) mmol/L Chloride (98-107) mmol/L Carbon Dioxide (22-30) mmol/L BUN (7-17) mg/dL Creatinine (0.52-1.04) mg/dL POC Glucose (mg/dL) 142 H (70-110) mg/dL Calcium (8.4-10.2) mg/dL TIBC 129 L (228-460) UG/DL % Saturation 89.92 H (12.00-45.00) Transferrin 92.2 L (204.0-354.0) mg/dL Ferritin 459.0 H (10.0-291.0) ng/mL Total Bilirubin (0.2-1.3) mg/dL Alkaline Phosphatase (38-126) U/L Total Protein (6.3-8.2) g/dL Albumin (3.5-5.0) g/dL 05/29/24 05/29/24 Range/Units 05:44 05:44 RBC 2.35 L (3.80-5.40) m/uL Hgb 7.8 L (11.4-16.0) gm/dL Hct 24.6 L (34.0-46.0) % MCV 104.9 H (80.0-100.0) fL RDW 22.5 H (11.5-15.5) % Plt Count 60 L (150-450) k/uL Macrocytosis Marked A Sodium 130 L (137-145) mmol/L Potassium (3.5-5.1) mmol/L Chloride 111 H (98-107) mmol/L Carbon Dioxide 16 L (22-30) mmol/L BUN 18 H (7-17) mg/dL Creatinine 1.18 H (0.52-1.04) mg/dL POC Glucose (mg/dL) (70-110) mg/dL Calcium 7.8 L (8.4-10.2) mg/dL TIBC (228-460) UG/DL % Saturation (12.00-45.00) Transferrin (204.0-354.0) mg/dL Ferritin (10.0-291.0) ng/mL Total Bilirubin 1.9 H (0.2-1.3) mg/dL Alkaline Phosphatase 189 H (38-126) U/L Total Protein 4.0 L (6.3-8.2) g/dL Albumin 2.0 L (3.5-5.0) g/dL Microbiology - Last 24 Hours (Table) 05/25/24 11:35 Gram Stain - Preliminary Ascites Fluid Body Fluid Culture - Preliminary 05/25/24 11:35 Anaerobic Culture - Preliminary Ascites Fluid 05/26/24 05:40 Blood Culture - Preliminary Blood Assessment and Plan Assessment: Impression: Acute upper GI bleed, patient's having multiple melanotic stools, status post 1 unit of packed RBCs Abdominal ascites, status post large-volume paracentesis, total of 11 L was removed, Hypotension, secondary to combination of above, patient is presently on midodrine and on norepinephrine low-dose Abdominal pain Acute leukocytosis History of liver cirrhosis, secondary to chronic alcohol use History of GI bleed, gastric ulcer, and small esophageal varices; last EGD done 02/19/24 Hypervolemic hyponatremia Severe hypokalemia, being replaced per protocol History of UTI/VRE History of recent cholecystectomy. History of COPD. History of bipolar disorder. History of chronic thrombocytopenia Chronic kidney disease, secondary to hepatorenal syndrome History of alcoholism, last reported drink > 6 months ago. Recommendation: Continue present supportive care measures Considering patient is off norepinephrine will arrange for the patient to transfer out of the ICU to the medical surgical floor Considering the high volume paracentesis, no wonder the patient is hypotensive although she did receive albumin infusions Patient is developing worsening ascites again, did not improve much with albumin and Lasix she would likely need another paracentesis Cultures from ascites fluid have been negative Will continue to follow Time with Patient: Less than 30
--- NOTE | 2024-05-29 15:39 | P.PN ---
Subjective Progress Note Date: 05/29/24 Principal diagnosis: Reason for follow-up is leukocytosis and lower extremity cellulitis Patient is a 44-year-old female with a past medical history significant for cirrhosis of the liver bipolar recurrent admission to the hospital for ascites and lower extremity cellulitis patient was brought into the hospital concerning for increasing swelling to the abdomen as well as lower extremity patient did have elevated white count prompted this consultation. On today's evaluation that is 05/29/2024, Patient is afebrile patient is currently on room air and denies having any shortness of breath, the patient denies any chest pain or cough, the patient denies any nausea vomiting did not have any abdominal pain and no diarrhea, overall pain swelling to the lower extremity has decreased in intensity. Patient white count is 7.1, creatinine is 1.18 culture has been negative Objective - Vital Signs Vital signs: Vital Signs Temp 98.7 F 05/29/24 14:00 Pulse 98 05/29/24 14:00 Resp 18 05/29/24 14:00 BP 94/58 05/29/24 14:00 Pulse Ox 97 05/29/24 14:00 FiO2 Intake & Output 05/28/24 05/29/24 05/29/24 18:59 06:59 18:59 Intake Total 1382.929 490 550 Output Total 2155 375 1025 Balance -772.071 115 -475 Weight 133.5 kg Intake: IV 90 50 0.9NS 90 cefTRIAXone 2 gm In 50 Sodium Chloride 0.9% 50 ml @ 100 mls/hr IVPB Q24HR [facility] Rx#:[id number] Intake, IV Titration 332.929 Amount Norepinephrine 4 mg In 182.929 Sodium Chloride 0.9% 250 ml @ 0.03 MCG/KG/MIN 13. 48 mls/hr IV .[id number] [facility] Rx#:[id number] Sodium Ferric Gluconat- 100 Sucrose 125 mg In Sodium Chloride 0.9% 100 ml @ 100 mls/hr IVPB DAILY [facility] Rx#:[id number] cefTRIAXone 2 gm In 50 Sodium Chloride 0.9% 50 ml @ 100 mls/hr IVPB Q24HR [facility] Rx#:[id number] Oral 960 490 500 Output: Urine 2155 375 1025 Other: Voiding Method Indwelling Catheter Indwelling Catheter Indwelling Catheter - Exam GENERAL DESCRIPTION: Middle-age female lying in bed in no distress RESPIRATORY SYSTEM: Unlabored breathing , decreased breath sounds at bases HEART: S1 S2 regular rate and rhythm , ABDOMEN: Soft , no tenderness EXTREMITIES: Bilateral legs are currently wrapped in Theo wrap did have some mt inage of the right foot wound but patient mention overall wound is looking better at the time of dressing changes - Labs CBC & Chem 7: 05/29/24 05:44 05/29/24 05:44 Labs: Abnormal Lab Results - Last 24 Hours (Table) 05/28/24 05/28/24 05/28/24 Range/Units 14:15 16:36 19:00 RBC (3.80-5.40) m/uL Hgb (11.4-16.0) gm/dL Hct (34.0-46.0) % MCV (80.0-100.0) fL RDW (11.5-15.5) % Plt Count (150-450) k/uL Macrocytosis Sodium (137-145) mmol/L Potassium 3.3 L (3.5-5.1) mmol/L Chloride (98-107) mmol/L Carbon Dioxide (22-30) mmol/L BUN (7-17) mg/dL Creatinine (0.52-1.04) mg/dL POC Glucose (mg/dL) 142 H (70-110) mg/dL Calcium (8.4-10.2) mg/dL TIBC 129 L (228-460) UG/DL % Saturation 89.92 H (12.00-45.00) Transferrin 92.2 L (204.0-354.0) mg/dL Ferritin 459.0 H (10.0-291.0) ng/mL Total Bilirubin (0.2-1.3) mg/dL Alkaline Phosphatase (38-126) U/L Total Protein (6.3-8.2) g/dL Albumin (3.5-5.0) g/dL 05/29/24 05/29/24 Range/Units 05:44 05:44 RBC 2.35 L (3.80-5.40) m/uL Hgb 7.8 L (11.4-16.0) gm/dL Hct 24.6 L (34.0-46.0) % MCV 104.9 H (80.0-100.0) fL RDW 22.5 H (11.5-15.5) % Plt Count 60 L (150-450) k/uL Macrocytosis Marked A Sodium 130 L (137-145) mmol/L Potassium (3.5-5.1) mmol/L Chloride 111 H (98-107) mmol/L Carbon Dioxide 16 L (22-30) mmol/L BUN 18 H (7-17) mg/dL Creatinine 1.18 H (0.52-1.04) mg/dL POC Glucose (mg/dL) (70-110) mg/dL Calcium 7.8 L (8.4-10.2) mg/dL TIBC (228-460) UG/DL % Saturation (12.00-45.00) Transferrin (204.0-354.0) mg/dL Ferritin (10.0-291.0) ng/mL Total Bilirubin 1.9 H (0.2-1.3) mg/dL Alkaline Phosphatase 189 H (38-126) U/L Total Protein 4.0 L (6.3-8.2) g/dL Albumin 2.0 L (3.5-5.0) g/dL Microbiology - Last 24 Hours (Table) 05/25/24 11:35 Gram Stain - Final Ascites Fluid Body Fluid Culture - Final 05/26/24 05:40 Blood Culture - Preliminary Blood 05/25/24 11:35 Anaerobic Culture - Preliminary Ascites Fluid Assessment and Plan (1) Bilateral lower leg cellulitis Current Visit: Yes Status: Acute Code(s): L03.116 - CELLULITIS OF LEFT LOWER LIMB; L03.115 - CELLULITIS OF RIGHT LOWER LIMB SNOMED Code(s): 950209738 (2) Wound of right foot Current Visit: Yes Status: Acute Code(s): S91.301A - UNSPECIFIED OPEN WOUND, RIGHT FOOT, INITIAL ENCOUNTER SNOMED Code(s): 360901332 (3) Leukocytosis Current Visit: Yes Status: Acute Code(s): D72.829 - ELEVATED WHITE BLOOD CELL COUNT, UNSPECIFIED SNOMED Code(s): 919879115 Plan: 1patient with a leukocytosis in this patient who did have a cirrhosis of the liver now presented to the hospital with increasing abdominal distention but no significant tenderness clinically not behaving as SBP but not entirely excluded patient did have bilateral lower extremity swelling and redness and complaint of cellulitis likely etiology of this elevated white count 2-local wound care to the right foot wound with the Medihoney followed by moist dressing change daily 3-patient patient is afebrile white count has normalized culture be negative for any resistant pathogen 4-we will keep the patient on Rocephin 2 g daily and monitor clinical course closely Dictation was produced using [employer] dictation software. please excuse any grammatical, word or spelling errors. Time with Patient: Less than 30
[2024-05-29] MEDS: FUROSEMIDE 10 MG/ML 4 ML VIAL IV SCH (20:55)
[2024-05-29] MEDS: SODIUM BICARBONATE TAB 650 MG TAB PO SCH (20:57)
--- NOTE | 2024-05-30 02:30 | PN ---
PROGRESS NOTE SUBJECTIVE: The patient was consulted with surgery, Dr. Solano. No further bleeding. Some sick drainage to the paracentesis site. OBJECTIVE: VITAL SIGNS: Blood pressure 104/51, temperature 99, pulse 90, respiratory rate 14 to 16, O2 saturation 95%. CARDIOVASCULAR: S1, S2. ABDOMEN: Distended. GI: Soft. EXTREMITIES: 2+ to 3+ edema. She has Theo wraps in the legs. LABORATORY DATA: BUN is 18, creatinine 1.18, sodium 130. Hemoglobin remains low at 7.8. She has abdominal pain. Kidney function stable on Lasix. Discussed with GI, Dr. Solano. Spironolactone 50 mg and Lasix 20 mg when she goes home. She is on IV antibiotics for SBE prophylaxis. She is trying to wean off norepinephrine go home. She had acute upper GI bleed and melenic stools. She had 1 unit red cells. Abdominal ascites, paracentesis 11 L and she went hypotensive. History of liver cirrhosis, GI bleed, hypovolemic hyponatremia, hypokalemia, UTI, VRE, COPD, bipolar, current thrombocytopenia, and hepatorenal syndrome. History of alcoholism, she has not drank for over 6 months. Try to get her off norepinephrine and get her out of the ICU, possibly another paracentesis prior to discharge. She had albumin. She still had hypovolemia. If she gets worsening ascites, possibly another paracentesis. Prognosis is guarded. MMODL / IJN: [id number] /
--- NOTE | 2024-05-30 11:52 | P.PN ---
Subjective Progress Note Date: 05/30/24 Patient is a 44-year-old white female with past medical history significant for cirrhosis of the liver, alcohol induced, abdominal ascites requiring frequent paracentesis, UTI with VRE. She is very debilitated, and has had frequent hospitalizations since January of this year, mostly due to complications due to her liver disease. Of note, recently discharged home from this facility May 16, she was apparently admitted for fluid overload and lower extremity cellulitis. Patient returns to the emergency department 05/24/2024 with a chief complaint of abdominal pain. Denies fevers. She does undergo frequent paracentesis. She has positive fluid balance, and severe lower extremity edema. Admits 20 pound weight gain since her hospital discharge on May 16. Yesterday, underwent large-volume paracentesis, total of 11L was removed. Following this she became hypotensive and patient was transferred to the intensive care unit. She did receive 50 g of 25% albumin. She also was noted to have some dark tarry stools that started yesterday. Hemoglobin has been trending down, most recent 7 g/dL. She is receiving 1 unit PRBCs at the moment. She does have history of GI bleeding. Most recent EGD done February 19, 2024 showing a small antral gastric ulcer with no active bleeding and small distal esophageal varices. Patient currently being evaluated in the ICU, she is alert and oriented. Continues to have dark tarry stools. Fecal occult positive. Blood pressure slightly hypotensive currently 86/46 mmHg. She is receiving a unit of PRBCs at the moment. Normal saline continues at 150 mL/h. Patient did receive an additional 1 L fluid bolus earlier. May require vasopressors if she remains hypotensive. Fluid status appears positive. Urine output is adequate, around 50 to 100 cc/h. Patient denies any urinary symptoms at this time, no burning/dysuria, no hematuria, no urinary frequency. On her recent previous hospital discharge, her Lasix was discontinued. She has significant lower extremity swelling, her legs are wrapped with Theo bandages. Most recent CBC from yesterday: WBC count 15.1, hemoglobin 7, hematocrit 22, platelets 86. CMP from yesterday: Sodium 127, potassium 3.1, chloride 99, serum bicarb 22, BUN 41, creatinine 1.31, glucose 100. Urinalysis was sent. LFTs mildly elevated. Patient has been started on empiric Rocephin for possible SBP. If blood pressure remains hypotensive, may require vasopressors Seen today on 05/27/2024, remains in the ICU, her EGD yesterday showed 1 cm varices, no active bleeding. Patient is on room air, does not seem to be in any distress, she is however hypotensive still requiring midodrine and requiring norepinephrine at 0.04 mcg/kg/min. Nephrology saw the patient, and trying to give the patient intermittent doses of albumin followed by Lasix, patient is developing worsening ascites and worsening fluid retention. Not receiving any IV fluids at this point, and did not require any further blood transfusion. She only had 1 unit of packed RBCs since she came into the ICU. WBC count today is 11.4 hemoglobin is 8.6 INR is 1.8 electrolytes are normal BUN is 30 creatinine 1.16 Patient was seen today on 05/28/2024, remains in the ICU, still requiring a small dose of norepinephrine at 0.03 mcg/kg/min developing ascites again, hemoglobin is stable at 7.9. Patient did not improve much with albumin Lasix yesterday as recommended by nephrology, continues to build up significant amount of fluids in her abdomen. She is supposedly scheduled to have repeat paracentesis on Thursday next week. WBC count is 8.5 hemoglobin 7.9. Electrolytes are normal potassium is 3.2 BUN is 23 creatinine 1.13. Patient was seen on 05/29/24, patient is doing well, remains in the ICU, she is off norepinephrine at this point.Patient is hemodynamically stable, her CBC is unremarkable, hemoglobin is holding at 7.8, patient received only 1 unit of packed RBCs since admission to the ICU electrolytes are noted sodium is 130 potassium 4.4 bicarb is 16 BUN is 18 creatinine 1.18. Patient is developing worsening ascites, now she is losing from the previous site of paracentesis in the right lower quadrant area. A collecting ostomy bag has been placed over the site. No cough no wheezing no shortness of breath, patient is on room air. Will receiving Lasix 40 mg IV push every 12 hours remains on Rocephin. My plan today is to transfer the patient out of the ICU to a medical surgical bed The patient is seen today May 30, 2024 in follow-up on the regular medical floor. She was transferred out of the ICU yesterday. She is currently resting comfortably in bed. Awake and alert in no acute distress. Maintaining O2 saturations in the 90s on room air. She is status post 1 unit of packed red blood cells this admission. Current hemoglobin 7.8. Ascites fluid cultures were negative. Urine culture negative. Blood culture showing no growth. She is continued on ceftriaxone. She remains on DuoNeb and elations, Symbicort. Remains on IV diuretics. Currently in a -1.3 L balance. Objective - Vital Signs Vital signs: Vital Signs Temp 98.4 F 05/30/24 07:15 Pulse 94 05/30/24 09:43 Resp 16 05/30/24 07:15 BP 96/54 05/30/24 07:15 Pulse Ox 94 L 05/30/24 07:15 FiO2 Intake & Output 05/29/24 05/30/24 05/30/24 18:59 06:59 18:59 Intake Total 1050 573 Output Total 1525 1400 Balance -475 827 Intake: IV 50 cefTRIAXone 2 gm In 50 Sodium Chloride 0.9% 50 ml @ 100 mls/hr IVPB Q24HR [facility] Rx#:[id number] Oral 1000 573 Output: Drainage 100 Right Abdomen 100 Urine 1525 1300 Other: Voiding Method Indwelling Catheter Indwelling Catheter Indwelling Catheter - Exam GENERAL EXAM: Alert, pleasant 44-year-old female, on room air, fairly comfortable in no apparent distress. HEAD: Normocephalic. EYES: Normal reaction of pupils, equal size. NOSE: Clear with pink turbinates. THROAT: No erythema or exudates. NECK: No masses, no JVD. CHEST: No chest wall deformity. LUNGS: Equal air entry with no crackles, wheeze, rhonchi or dullness. CVS: S1 and S2 normal with no audible murmur, regular rhythm. ABDOMEN: Abdominal distention with positive fluid wave. No hepatosplenomegaly, normal bowel sounds, no guarding or rigidity. SPINE: No scoliosis or deformity SKIN: No rashes CENTRAL NERVOUS SYSTEM: No focal deficits, tone is normal in all 4 extremities. EXTREMITIES: There is no peripheral edema. No clubbing, no cyanosis. Peripheral pulses are intact. - Labs CBC & Chem 7: 05/29/24 05:44 05/29/24 05:44 Labs: Microbiology - Last 24 Hours (Table) 05/25/24 11:35 Anaerobic Culture - Final Ascites Fluid 05/25/24 11:35 Gram Stain - Final Ascites Fluid Body Fluid Culture - Final 05/26/24 05:40 Blood Culture - Preliminary Blood Assessment and Plan Assessment: Acute upper GI bleed, patient's having multiple melanotic stools, status post 1 unit of packed RBCs. 8 Abdominal ascites, status post large-volume paracentesis, total of 11 L was removed, Hypotension, secondary to combination of above, patient is presently on midodrine and on norepinephrine low-dose Abdominal pain Acute leukocytosis History of liver cirrhosis, secondary to chronic alcohol use History of GI bleed, gastric ulcer, and small esophageal varices; last EGD done 02/19/24 Hypervolemic hyponatremia Severe hypokalemia, being replaced per protocol, improved, currently 4.4 History of UTI/VRE History of recent cholecystectomy History of COPD History of bipolar disorder History of chronic thrombocytopenia Chronic kidney disease, secondary to hepatorenal syndrome History of alcoholism, last reported drink > 6 months ago Plan: The patient was seen and evaluated Medications reviewed Currently stable and on room air Awaiting possible repeat paracentesis today This patient was seen independently by the pulmonary nurse practitioner addressing pulmonary issues I have personally seen and examined the patient, performed the documentation and the assessment and plan as written. Number of minutes spent on the visit: 24 Dictation was produced using [employer] dictation software. Please excuse any grammatical, word or spelling errors.
--- NOTE | 2024-05-30 15:23 | P.PN ---
Subjective Progress Note Date: 05/30/24 SURGICAL PROGRESS NOTE CHIEF COMPLAINT: Abdominal ascites HISTORY OF PRESENT ILLNESS: Patient currently a regular medical floor. She has drainage from paracentesis site. No drainage from the umbilicus area. And minimal drainage from the old SALVADOR drain. Patient reports no black stools. Patient reports that she is on a scheduled paracentesis regimen and should be getting a paracentesis tomorrow. Afebrile. Hemoglobin 7.8 PHYSICAL EXAM: VITAL SIGNS: Reviewed. GENERAL: in no acute distress. ABDOMEN: Soft. Distended. Sutures were removed at the umbilicus area and on the right flank. No ascites from the umbilicus area. Right flank area dressing is currently dry and intact. Drainage from the paracentesis site NEUROLOGIC: Alert and oriented. Cranial nerves II through XII grossly intact. ASSESSMENT: 1. Alcohol cirrhosis of the liver with large amount of abdominal ascites status post paracentesis with 11 L removed 2. Acute GI bleed with melanotic stools status post EGD with distal esophageal varices with no active bleeding, esophagitis, small hiatal hernia, mild duodenitis 3. Acute blood loss anemia due to GI bleed 4. Hyponatremia 5. Thrombocytopenia PLAN: -Will continue to follow -Continue supportive care -Continue PPI Physician Pharmaceutical Analyst note has been reviewed by physician. Signing provider agrees with the documented findings, assessment, and plan of care. Objective - Vital Signs Vital signs: Vital Signs Temp 98.4 F 05/30/24 07:15 Pulse 94 05/30/24 09:43 Resp 16 05/30/24 07:15 BP 96/54 05/30/24 07:15 Pulse Ox 94 L 05/30/24 07:15 FiO2 Intake & Output 05/29/24 05/30/24 05/30/24 18:59 06:59 18:59 Intake Total 1050 573 Output Total 1525 1400 Balance -585 -294 Intake: IV 50 cefTRIAXone 2 gm In 50 Sodium Chloride 0.9% 50 ml @ 100 mls/hr IVPB Q24HR [facility] Rx#:[id number] Oral 1000 573 Output: Drainage 100 Right Abdomen 100 Urine 1525 1300 Other: Voiding Method Indwelling Catheter Indwelling Catheter Indwelling Catheter - Labs CBC & Chem 7: 05/29/24 05:44 05/29/24 05:44 Labs: Microbiology - Last 24 Hours (Table) 05/25/24 11:35 Anaerobic Culture - Final Ascites Fluid 05/25/24 11:35 Gram Stain - Final Ascites Fluid Body Fluid Culture - Final 05/26/24 05:40 Blood Culture - Preliminary Blood
--- NOTE | 2024-05-30 21:04 | P.PN ---
Subjective Patient is seen for follow-up for volume overload and history of hyponatremia. Currently maintained on oral sodium bicarb and IV diuretics. No significant complaints today. Serum sodium is 130 and serum creatinine at 1.1. Objective - Vital Signs Vital signs: Vital Signs Temp 98.3 F 05/30/24 12:13 Pulse 90 05/30/24 20:30 Resp 16 05/30/24 12:13 BP 108/71 05/30/24 12:13 Pulse Ox 95 05/30/24 12:13 FiO2 Intake & Output 05/30/24 05/30/24 05/31/24 06:59 18:59 06:59 Intake Total 573 150 240 Output Total 1400 1300 Balance -827 -1150 240 Weight 133.5 kg Intake: IV 50 cefTRIAXone 2 gm In 50 Sodium Chloride 0.9% 50 ml @ 100 mls/hr IVPB Q24HR [facility] Rx#:[id number] Intake, IV Titration 100 Amount Sodium Ferric Gluconat- 100 Sucrose 125 mg In Sodium Chloride 0.9% 100 ml @ 100 mls/hr IVPB DAILY [facility] Rx#:[id number] Oral 573 240 Output: Drainage 100 200 Right Abdomen 100 200 Urine 1300 1100 Other: Voiding Method Indwelling Catheter Indwelling Catheter - Exam Patient is awake, comfortable, no acute distress. Examination of the heart S1 and S2 Examination of the lungs bilateral breath sounds are heard Abdomen is soft nontender obese Examination of lower extremity shows edema 2-3+ bilaterally, legs are wrapped. EXPERIMENTAL PSYCHOLOGIST exam grossly intact - Labs CBC & Chem 7: 05/29/24 05:44 05/29/24 05:44 Labs: Microbiology - Last 24 Hours (Table) 05/25/24 11:35 Anaerobic Culture - Final Ascites Fluid Assessment and Plan Assessment: 1. Chronic kidney disease stage IIIa with baseline creatinine 1.3-1.5 secondary to hepatorenal syndrome. GFR at baseline. 2. Hypervolemic hyponatremia. Improved. 3. Anemia status post blood transfusion this admission. EGD done this admission showed distal esophageal varices and reflux esophagitis. Iron replete. 4. Volume overload with ascites status post paracentesis with 11 L drained May 25, 2024. 5. Liver cirrhosis. 6. Hypokalemia from diuresis. Replaced. Better. 7. Metabolic acidosis secondary to chronic kidney disease and compensation for underlying respiratory alkalosis from cirrhosis. Plan: Continue with IV Lasix and Farxiga. Continue with oral sodium bicarb Repeat labs in a.m.
--- NOTE | 2024-05-30 23:00 | P.PN ---
Subjective Progress Note Date: 05/30/24 Principal diagnosis: Reason for follow-up is leukocytosis and lower extremity cellulitis Patient is a 44-year-old female with a past medical history significant for cirrhosis of the liver bipolar recurrent admission to the hospital for ascites and lower extremity cellulitis patient was brought into the hospital concerning for increasing swelling to the abdomen as well as lower extremity patient did have elevated white count prompted this consultation. On today's evaluation that is 05/30/2024, patient has been afebrile, patient is breathing comfortably and is currently on room air, patient denies having any significant cough no chest pain, patient denies nausea vomiting or diarrhea complaining of some abdominal distention no pain to the lower extremity. Patient white count 7.1, creatinine is 1.18 cultures so far negative Objective - Vital Signs Vital signs: Vital Signs Temp 98.3 F 05/30/24 12:13 Pulse 111 H 05/30/24 12:13 Resp 16 05/30/24 12:13 BP 108/71 05/30/24 12:13 Pulse Ox 95 05/30/24 12:13 FiO2 Intake & Output 05/29/24 05/30/24 05/30/24 18:59 06:59 18:59 Intake Total 1050 573 Output Total 1525 1400 Balance -475 822 Intake: IV 50 cefTRIAXone 2 gm In 50 Sodium Chloride 0.9% 50 ml @ 100 mls/hr IVPB Q24HR [facility] Rx#:[id number] Oral 1000 573 Output: Drainage 100 Right Abdomen 100 Urine 1525 1300 Other: Voiding Method Indwelling Catheter Indwelling Catheter Indwelling Catheter - Exam GENERAL DESCRIPTION: Middle-age female lying in bed in no distress RESPIRATORY SYSTEM: Unlabored breathing , decreased breath sounds at bases HEART: S1 S2 regular rate and rhythm , ABDOMEN: Soft , no tenderness EXTREMITIES: Bilateral legs are currently wrapped in Theo wrap did have some drainage of the right foot wound but patient mention overall wound is looking better at the time of dressing changes - Labs CBC & Chem 7: 05/29/24 05:44 05/29/24 05:44 Labs: Microbiology - Last 24 Hours (Table) 05/25/24 11:35 Anaerobic Culture - Final Ascites Fluid 05/25/24 11:35 Gram Stain - Final Ascites Fluid Body Fluid Culture - Final 05/26/24 05:40 Blood Culture - Preliminary Blood Assessment and Plan (1) Bilateral lower leg cellulitis Current Visit: Yes Status: Acute Code(s): L03.116 - CELLULITIS OF LEFT LOWER LIMB; L03.115 - CELLULITIS OF RIGHT LOWER LIMB SNOMED Code(s): 994992506 (2) Wound of right foot Current Visit: Yes Status: Acute Code(s): S91.301A - UNSPECIFIED OPEN WOUND, RIGHT FOOT, INITIAL ENCOUNTER SNOMED Code(s): 169537701 (3) Leukocytosis Current Visit: Yes Status: Acute Code(s): D72.829 - ELEVATED WHITE BLOOD CELL COUNT, UNSPECIFIED SNOMED Code(s): 756521847 Plan: 1patient with a leukocytosis in this patient who did have a cirrhosis of the liver now presented to the hospital with increasing abdominal distention but no significant tenderness clinically not behaving as SBP but not entirely excluded patient did have bilateral lower extremity swelling and redness and complaint of cellulitis likely etiology of this elevated white count 2-local wound care to the right foot wound with the Medihoney followed by moist dressing change daily 3-patient patient is afebrile white count has normalized culture be negative for any resistant pathogen 4-patient is currently being treated Rocephin 2 g daily to continue while inpatient transition to oral antibiotic on discharge Dictation was produced using [employer] dictation software. please excuse any grammatical, word or spelling errors.
[2024-05-31 08:49] LABS: ALT 9 U/L (8-44); AST 22 U/L (13-35); Albumin 2.3 g/dL (3.8-4.9); Albumin/Globulin Ratio 1.64 Ratio (1.60-3.17); Alkaline Phosphatase 237 U/L (41-126); BUN/Creat Ratio 11.29 Ratio (12.00-20.00); Blood Urea Nitrogen 15.8 mg/dL (9.0-27.0); Calcium 7.9 mg/dL (8.7-10.3); Chloride 105 mmol/L (96-109); Globulin 1.4 g/dL (1.6-3.3); Glucose 101 mg/dL (70-110); Sodium 134 mmol/L (135-145); Total Bilirubin 1.4 mg/dL (0.3-1.2); Total Protein 3.7 g/dL (6.2-8.2)
[2024-05-31 09:45] LABS: Basophils # (A) 0.05 X 10*3/uL (0.00-0.10); Basophils % (A) 0.6 %; Eosinophils # (A) 0.64 X 10*3/uL (0.04-0.35); Eosinophils % (A) 7.2 %; HCT 25.8 % (37.2-46.3); HGB 8.2 g/dL (12.0-15.0); Immature Platelet Fraction 8.1 % (1.1-6.1); Lymphocytes # (A) 1.72 X 10*3/uL (0.90-5.00); Lymphocytes % (A) 19.3 %; MCH 33.2 pg (27.0-32.0); MCHC 31.8 g/dL (32.0-37.0); MCV 104.5 FL (80.0-97.0); Mean Platelet Volume 12.6 FL (9.5-12.2); Monocytes # (A) 0.74 X 10*3/uL (0.20-1.00); Monocytes % (A) 8.3 %; NRBC Per 100 WBC 0 X 10*3/uL (0.00-0.01); Neutrophils # (A) 5.69 X 10*3/uL (1.80-7.70); Neutrophils % (A) 63.8 %; Platelet Count 71 X 10*3/uL (140-440); RBC 2.47 X 10*6/uL (4.10-5.20); RDW 24.7 % (11.5-14.5); WBC 8.91 X 10*3/uL (4.50-10.00)
--- NOTE | 2024-05-31 10:35 | P.PN ---
Subjective Progress Note Date: 05/31/24 Principal diagnosis: Upper GI bleed status post 1 unit packed RBC transfusion Abdominal ascites, s/p large-volume paracentesis 11 L removed Chronic hypotension, patient high risk of intermittent diuresis with renal complication, will start patient on Lasix drip 5 mg an hour for next 24 to 48 hours Liver cirrhosis and secondary ascites due to chronic alcohol use Esophageal varices and portal hypertension Chronic hyponatremia hyper bulimic Morbid obesity likely sleep disordered breathing and sleep apnea with obesity hypoventilation COPD Bipolar disorder Chronic thrombocytopenia due to liver disease Chronic kidney disease with a component of hepatorenal syndrome May 31, 2024, patient well-known to me seen evaluate examined while covering for Dr. Luis Alfredo Shields, patient admitted into hospital with upper GI bleed likely related to gastric varices, required 1 unit of packed RBC bleeding stabilized initially was managed in ICU and transferred to medical floor. Patient had a large-volume paracentesis over 11 L were removed, patient of note that was hospitalized earlier this month was discharged and readmitted within few days. She is awake and alert denies any chest pain, mild shortness of breath is present, both lower extremity covered with Theo wrap. Cultures acetic fluid no growth so far blood culture and urine culture also negative. Other labs inc luding CBC hemoglobin hematocrit stable 8.2/25 actually up 48 hours ago of 7.8/24, white cell count 8.1, platelet count of 71 from 60,000 prior exam, sodium 134, BUN/creatinine 10/1.4 alk phos is 237. Objective - Vital Signs Vital signs: Vital Signs Temp 99.1 F 05/31/24 07:54 Pulse 86 05/31/24 09:03 Resp 17 05/31/24 07:54 BP 101/60 05/31/24 07:54 Pulse Ox 93 L 05/31/24 07:54 FiO2 Intake & Output 05/30/24 05/31/24 05/31/24 18:59 06:59 18:59 Intake Total 150 480 Output Total 1300 900 Balance -1150 -420 Weight 133.5 kg Intake: IV 50 cefTRIAXone 2 gm In 50 Sodium Chloride 0.9% 50 ml @ 100 mls/hr IVPB Q24HR [facility] Rx#:[id number] Intake, IV Titration 100 Amount Sodium Ferric Gluconat- 100 Sucrose 125 mg In Sodium Chloride 0.9% 100 ml @ 100 mls/hr IVPB DAILY [facility] Rx#:[id number] Oral 480 Output: Drainage 200 200 Right Abdomen 200 200 Urine 1100 700 Other: Voiding Method Indwelling Catheter Indwelling Catheter # Bowel Movements 1 - Exam GENERAL EXAM: Alert, pleasant 44-year-old female, on room air, fairly co mfortable in no apparent distress. HEAD: Normocephalic. EYES: Normal reaction of pupils, equal size. NOSE: Clear with pink turbinates. THROAT: No erythema or exudates. NECK: No masses, no JVD. CHEST: No chest wall deformity. LUNGS: Equal air entry with no crackles, wheeze, rhonchi or dullness. CVS: S1 and S2 normal with no audible murmur, regular rhythm. ABDOMEN: Abdominal distention with positive fluid wave. No hepatosplenomegaly, normal bowel sounds, no guarding or rigidity. SPINE: No scoliosis or deformity SKIN: No rashes CENTRAL NERVOUS SYSTEM: No focal deficits, tone is normal in all 4 extremities. EXTREMITIES: There is no peripheral edema. No clubbing, no cyanosis. Peripheral pulses are intact. - Labs CBC & Chem 7: 05/31/24 05:33 05/31/24 05:33 Labs: Abnormal Lab Results - Last 24 Hours (Table) 05/31/24 05/31/24 Range/Units 05:33 05:33 RBC 2.47 L (4.10-5.20) X 10*6/uL Hgb 8.2 L (12.0-15.0) g/dL Hct 25.8 L (37.2-46.3) % MCV 104.5 H (80.0-97.0) FL MCH 33.2 H (27.0-32.0) pg MCHC 31.8 L (32.0-37.0) g/dL RDW 24.7 H (11.5-14.5) % Plt Count 71 L (140-440) X 10*3/uL MPV 12.6 H (9.5-12.2) FL Immature Gran # 0.07 H (0.00-0.04) X 10*3/uL Eosinophils # 0.64 H (0.04-0.35) X 10*3/uL Immature Plt Fraction 8.1 H (1.1-6.1) % Sodium 134 L (135-145) mmol/L Carbon Dioxide 19.0 L (21.6-31.8) mmol/L Est GFR (CKD-EPI) 48 L (>=60) BUN/Creatinine Ratio 11.29 L (12.00-20.00) Ratio Calcium 7.9 L (8.7-10.3) mg/dL Total Bilirubin 1.4 H (0.3-1.2) mg/dL Alkaline Phosphatase 237 H (41-126) U/L Total Protein 3.7 L (6.2-8.2) g/dL Albumin 2.3 L (3.8-4.9) g/dL Globulin 1.4 L (1.6-3.3) g/dL Assessment and Plan Assessment: Upper GI bleed status post 1 unit packed RBC transfusion Abdominal ascites, s/p large-volume paracentesis 11 L removed Chronic hypotension, patient high risk of intermittent diuresis with renal complication, will start patient on Lasix drip 5 mg an hour for next 24 to 48 hours Liver cirrhosis and secondary ascites due to chronic alcohol use Esophageal varices and portal hypertension Chronic hyponatremia hyper bulimic Morbid obesity likely sleep disordered breathing and sleep apnea with obesity hypoventilation COPD Bipolar disorder Chronic thrombocytopenia due to liver disease Chronic kidney disease with a component of hepatorenal syndrome Plan: As above, will continue to monitor electrolytes daily basis Time with Patient: Greater than 30
[2024-05-31] MEDS: FUROSEMIDE 100 MG in SODIUM CHLORIDE 0.9% 90 ML IV SCH (11:15)
--- NOTE | 2024-05-31 11:26 | P.PN ---
Subjective Progress Note Date: 05/31/24 Patient is a 44-year-old white female with past medical history significant for cirrhosis of the liver, alcohol induced, abdominal ascites requiring frequent paracentesis, UTI with VRE. She is very debilitated, and has had frequent hospitalizations since January of this year, mostly due to complications due to her liver disease. Of note, recently discharged home from this facility May 16, she was apparently admitted for fluid overload and lower extremity cellulitis. Patient returns to the emergency department 05/24/2024 with a chief complaint of abdominal pain. Denies fevers. She does undergo frequent paracentesis. She has positive fluid balance, and severe lower extremity edema. Admits 20 pound weight gain since her hospital discharge on May 16. Yesterday, underwent large-volume paracentesis, total of 11L was removed. Following this she became hypotensive and patient was transferred to the intensive care unit. She did receive 50 g of 25% albumin. She also was noted to have some dark tarry stools that started yesterday. Hemoglobin has been trending down, most recent 7 g/dL. She is receiving 1 unit PRBCs at the moment. She does have history of GI bleeding. Most recent EGD done February 19, 2024 showing a small antral gastric ulcer with no active bleeding and small distal esophageal varices. Patient currently being evaluated in the ICU, she is alert and oriented. Continues to have dark tarry stools. Fecal occult positive. Blood pressure slightly hypotensive currently 86/46 mmHg. She is receiving a unit of PRBCs at the moment. Normal saline continues at 150 mL/h. Patient did receive an additional 1 L fluid bolus earlier. May require vasopressors if she remains hypotensive. Fluid status appears positive. Urine output is adequate, around 50 to 100 cc/h. Patient denies any urinary symptoms at this time, no burning/dysuria, no hematuria, no urinary frequency. On her recent previous hospital discharge, her Lasix was discontinued. She has significant lower extremity swelling, her legs are wrapped with Theo bandages. Most recent CBC from yesterday: WBC count 15.1, hemoglobin 7, hematocrit 22, platelets 86. CMP from yesterday: Sodium 127, potassium 3.1, chloride 99, serum bicarb 22, BUN 41, creatinine 1.31, glucose 100. Urinalysis was sent. LFTs mildly elevated. Patient has been started on empiric Rocephin for possible SBP. If blood pressure remains hypotensive, may require vasopressors Seen today on 05/27/2024, remains in the ICU, her EGD yesterday showed 1 cm varices, no active bleeding. Patient is on room air, does not seem to be in any distress, she is however hypotensive still requiring midodrine and requiring norepinephrine at 0.04 mcg/kg/min. Nephrology saw the patient, and trying to give the patient intermittent doses of albumin followed by Lasix, patient is developing worsening ascites and worsening fluid retention. Not receiving any IV fluids at this point, and did not require any further blood transfusion. She only had 1 unit of packed RBCs since she came into the ICU. WBC count today is 11.4 hemoglobin is 8.6 INR is 1.8 electrolytes are normal BUN is 30 creatinine 1.16 Patient was seen today on 05/28/2024, remains in the ICU, still requiring a small dose of norepinephrine at 0.03 mcg/kg/min developing ascites again, hemoglobin is stable at 7.9. Patient did not improve much with albumin Lasix yesterday as recommended by nephrology, continues to build up significant amount of fluids in her abdomen. She is supposedly scheduled to have repeat paracentesis on Thursday next week. WBC count is 8.5 hemoglobin 7.9. Electrolytes are normal potassium is 3.2 BUN is 23 creatinine 1.13. Patient was seen on 05/29/24, patient is doing well, remains in the ICU, she is off norepinephrine at this point.Patient is hemodynamically stable, her CBC is unremarkable, hemoglobin is holding at 7.8, patient received only 1 unit of packed RBCs since admission to the ICU electrolytes are noted sodium is 130 potassium 4.4 bicarb is 16 BUN is 18 creatinine 1.18. Patient is developing worsening ascites, now she is losing from the previous site of paracentesis in the right lower quadrant area. A collecting ostomy bag has been placed over the site. No cough no wheezing no shortness of breath, patient is on room air. Will receiving Lasix 40 mg IV push every 12 hours remains on Rocephin. My plan today is to transfer the patient out of the ICU to a medical surgical bed The patient is seen today May 30, 2024 in follow-up on the regular medical floor. She was transferred out of the ICU yesterday. She is currently resting comfortably in bed. Awake and alert in no acute distress. Maintaining O2 saturations in the 90s on room air. She is status post 1 unit of packed red blood cells this admission. Current hemoglobin 7.8. Ascites fluid cultures were negative. Urine culture negative. Blood culture showing no growth. She is continued on ceftriaxone. She remains on DuoNeb and elations, Symbicort. Remains on IV diuretics. Currently in a -1.3 L balance. The patient is seen today May 31, 2024 in follow-up on the regular medical floor. She is currently resting comfortably in bed. Awake and alert in no acute distress. She is still having ongoing issues with abdominal distention. Paracentesis to be formed while inpatient. He is status post 1 unit of packed red blood cells this admission. 05/25/2024 paracentesis fluid cultures revealed no growth. Urine culture no growth. Blood cultures no growth. White count 8.9. Hemoglobin 8.2. Platelets 71,000. Sodium 134. Potassium 4.0. Bicarb 19. BUN 16. Creatinine 1.4. Glucose 101. Albumin 2.3. She is continued on DuoNeb and elations, Symbicort. Remains on antibiotics in the form of ceftriaxone. Objective - Vital Signs Vital signs: Vital Signs Temp 99.1 F 05/31/24 07:54 Pulse 86 05/31/24 09:03 Resp 17 05/31/24 07:54 BP 101/60 05/31/24 07:54 Pulse Ox 93 L 05/31/24 07:54 FiO2 Intake & Output 05/30/24 05/31/24 05/31/24 18:59 06:59 18:59 Intake Total 150 480 Output Total 1300 900 Balance -1150 -420 Weight 133.5 kg Intake: IV 50 cefTRIAXone 2 gm In 50 Sodium Chloride 0.9% 50 ml @ 100 mls/hr IVPB Q24HR [facility] Rx#:[id number] Intake, IV Titration 100 Amount Sodium Ferric Gluconat- 100 Sucrose 125 mg In Sodium Chloride 0.9% 100 ml @ 100 mls/hr IVPB DAILY [facility] Rx#:[id number] Oral 480 Output: Drainage 200 200 Right Abdomen 200 200 Urine 1100 700 Other: Voiding Method Indwelling Catheter Indwelling Catheter # Bowel Movements 1 - Exam GENERAL EXAM: Alert, obese 44-year-old female, resting in bed, on room air, comfortable in no apparent distress. HEAD: Normocephalic. EYES: Normal reaction of pupils, equal size. NOSE: Clear with pink turbinates. THROAT: No erythema or exudates. NECK: No masses, no JVD. CHEST: No chest wall deformity. LUNGS: Equal air entry with no crackles, wheeze, rhonchi or dullness. CVS: S1 and S2 normal with no audible murmur, regular rhythm. ABDOMEN: Abdominal distention with positive fluid wave. No hepatosplenomegaly, normal bowel sounds, no guarding or rigidity. SPINE: No scoliosis or deformity SKIN: No rashes CENTRAL NERVOUS SYSTEM: No focal deficits, tone is normal in all 4 extremities. EXTREMITIES: There is no peripheral edema. No clubbing, no cyanosis. Peripheral pulses are intact. - Labs CBC & Chem 7: 05/31/24 05:33 05/31/24 05:33 Labs: Abnormal Lab Results - Last 24 Hours (Table) 05/31/24 05/31/24 Range/Units 05:33 05:33 RBC 2.47 L (4.10-5.20) X 10*6/uL Hgb 8.2 L (12.0-15.0) g/dL Hct 25.8 L (37.2-46.3) % MCV 104.5 H (80.0-97.0) FL MCH 33.2 H (27.0-32.0) pg MCHC 31.8 L (32.0-37.0) g/dL RDW 24.7 H (11.5-14.5) % Plt Count 71 L (140-440) X 10*3/uL MPV 12.6 H (9.5-12.2) FL Immature Gran # 0.07 H (0.00-0.04) X 10*3/uL Eosinophils # 0.64 H (0.04-0.35) X 10*3/uL Immature Plt Fraction 8.1 H (1.1-6.1) % Sodium 134 L (135-145) mmol/L Carbon Dioxide 19.0 L (21.6-31.8) mmol/L Est GFR (CKD-EPI) 48 L (>=60) BUN/Creatinine Ratio 11.29 L (12.00-20.00) Ratio Calcium 7.9 L (8.7-10.3) mg/dL Total Bilirubin 1.4 H (0.3-1.2) mg/dL Alkaline Phosphatase 237 H (41-126) U/L Total Protein 3.7 L (6.2-8.2) g/dL Albumin 2.3 L (3.8-4.9) g/dL Globulin 1.4 L (1.6-3.3) g/dL Assessment and Plan Assessment: Acute upper GI bleed, patient's having multiple melanotic stools, status post 1 unit of packed RBCs. Current hemoglobin 8.2 Abdominal ascites, status post large-volume paracentesis on 05/25/2024, total of 11 L was removed, Hypotension, secondary to combination of above, patient is presently on midodrine and on norepinephrine low-dose, recovered Abdominal pain Acute leukocytosis History of liver cirrhosis, secondary to chronic alcohol use History of GI bleed, gastric ulcer, and small esophageal varices; last EGD done 02/19/24 Hypervolemic hyponatremia Severe hypokalemia, being replaced per protocol, improved, currently 4.0 History of UTI/VRE History of recent cholecystectomy History of COPD History of bipolar disorder History of chronic thrombocytopenia Chronic kidney disease, secondary to hepatorenal syndrome History of alcoholism, last reported drink > 6 months ago Plan: The patient was seen and evaluated Medications and labs reviewed Currently stable and on room air Awaiting repeat paracentesis possibly today Remains on ceftriaxone per ID service This patient was seen independently by the pulmonary nurse practitioner addressing pulmonary issues I have personally seen and examined the patient, performed the documentation and the assessment and plan as written. Number of minutes spent on the visit: 23 Dictation was produced using [employer] dictation software. Please excuse any grammatical, word or spelling errors.
--- NOTE | 2024-05-31 12:40 | P.PN ---
Subjective Progress Note Date: 05/31/24 SURGICAL PROGRESS NOTE CHIEF COMPLAINT: Abdominal ascites HISTORY OF PRESENT ILLNESS: Patient currently a regular medical floor. She has drainage from paracentesis site. No drainage from the umbilicus area. And minimal drainage from the old SALVADOR drain. Patient reports no black stools. Patient is abdomen is more distended. She was initially scheduled outpatient for paracentesis. She is concerned about it not being scheduled inpatient. She wants paracentesis scheduled for today. Patient started on Lasix drip. Patient seen and examined with Dr. Corrigan PHYSICAL EXAM: VITAL SIGNS: Reviewed. GENERAL: in no acute distress. ABDOMEN: Soft. More distended. Ascites fluid wave present. Sutures were removed at the umbilicus area and on the right flank. No ascites from the umbilicus area. Right flank area dressing is currently dry and intact. Drainage from the paracentesis site NEUROLOGIC: Alert and oriented. Cranial nerves II through XII grossly intact. ASSESSMENT: 1. Alcohol cirrhosis of the liver with large amount of abdominal ascites status post paracentesis with 11 L removed 2. Acute GI bleed with melanotic stools status post EGD with distal esophageal varices with no active bleeding, esophagitis, small hiatal hernia, mild duodenitis 3. Acute blood loss anemia due to GI bleed 4. Hyponatremia 5. Thrombocytopenia PLAN: -Ultrasound paracentesis abdomen ordered -Continue to monitor -Continue supportive care -Continue PPI Physician Train Planner note has been reviewed by physician. Signing provider agrees with the documented findings, assessment, and plan of care. Objective - Vital Signs Vital signs: Vital Signs Temp 97.8 F 05/31/24 11:16 Pulse 107 H 05/31/24 11:16 Resp 17 05/31/24 07:54 BP 125/62 05/31/24 11:16 Pulse Ox 99 05/31/24 11:16 FiO2 Intake & Output 05/30/24 05/31/24 05/31/24 18:59 06:59 18:59 Intake Total 150 480 Output Total 1300 900 Balance -1150 -420 Weight 133.5 kg Intake: IV 50 cefTRIAXone 2 gm In 50 Sodium Chloride 0.9% 50 ml @ 100 mls/hr IVPB Q24HR [facility] Rx#:[id number] Intake, IV Titration 100 Amount Sodium Ferric Gluconat- 100 Sucrose 125 mg In Sodium Chloride 0.9% 100 ml @ 100 mls/hr IVPB DAILY [facility] Rx#:[id number] Oral 480 Output: Drainage 200 200 Right Abdomen 200 200 Urine 1100 700 Other: Voiding Method Indwelling Catheter Indwelling Catheter Indwelling Catheter # Bowel Movements 1 - Labs CBC & Chem 7: 05/31/24 05:33 05/31/24 05:33 Labs: Abnormal Lab Results - Last 24 Hours (Table) 05/31/24 05/31/24 Range/Units 05:33 05:33 RBC 2.47 L (4.10-5.20) X 10*6/uL Hgb 8.2 L (12.0-15.0) g/dL Hct 25.8 L (37.2-46.3) % MCV 104.5 H (80.0-97.0) FL MCH 33.2 H (27.0-32.0) pg MCHC 31.8 L (32.0-37.0) g/dL RDW 24.7 H (11.5-14.5) % Plt Count 71 L (140-440) X 10*3/uL MPV 12.6 H (9.5-12.2) FL Immature Gran # 0.07 H (0.00-0.04) X 10*3/uL Eosinophils # 0.64 H (0.04-0.35) X 10*3/uL Immature Plt Fraction 8.1 H (1.1-6.1) % Sodium 134 L (135-145) mmol/L Carbon Dioxide 19.0 L (21.6-31.8) mmol/L Est GFR (CKD-EPI) 48 L (>=60) BUN/Creatinine Ratio 11.29 L (12.00-20.00) Ratio Calcium 7.9 L (8.7-10.3) mg/dL Total Bilirubin 1.4 H (0.3-1.2) mg/dL Alkaline Phosphatase 237 H (41-126) U/L Total Protein 3.7 L (6.2-8.2) g/dL Albumin 2.3 L (3.8-4.9) g/dL Globulin 1.4 L (1.6-3.3) g/dL
--- NOTE | 2024-05-31 14:32 | P.PN ---
Subjective Progress Note Date: 05/31/24 Principal diagnosis: Reason for follow-up is leukocytosis and lower extremity cellulitis Patient is a 44-year-old female with a past medical history significant for cirrhosis of the liver bipolar recurrent admission to the hospital for ascites and lower extremity cellulitis patient was brought into the hospital concerning for increasing swelling to the abdomen as well as lower extremity patient did have elevated white count prompted this consultation. On today's evaluation that is 05/31/2024, Patient is afebrile this morning patient denies having any chest pain shortness of breath or cough, the patient is currently on room air, patient denies any nausea or vomiting still having abdominal distention and mention has been waiting for paracentesis, denies pain to the lower extremity. Patient white count is 8.91, creatinine is 1.4 blood urine culture has been n egative Objective - Vital Signs Vital signs: Vital Signs Temp 97.8 F 05/31/24 11:16 Pulse 102 H 05/31/24 14:16 Resp 18 05/31/24 13:46 BP 93/59 05/31/24 14:16 Pulse Ox 95 05/31/24 14:16 FiO2 Intake & Output 05/30/24 05/31/24 05/31/24 18:59 06:59 18:59 Intake Total 150 480 Output Total 1300 900 750 Balance -1150 -420 -750 Weight 133.5 kg Intake: IV 50 cefTRIAXone 2 gm In 50 Sodium Chloride 0.9% 50 ml @ 100 mls/hr IVPB Q24HR [facility] Rx#:[id number] Intake, IV Titration 100 Amount Sodium Ferric Gluconat- 100 Sucrose 125 mg In Sodium Chloride 0.9% 100 ml @ 100 mls/hr IVPB DAILY [facility] Rx#:[id number] Oral 480 Output: Drainage 200 200 Right Abdomen 200 200 Urine 1100 700 750 Other: Voiding Method Indwelling Catheter Indwelling Catheter Indwelling Catheter # Bowel Movements 1 - Exam GENERAL DESCRIPTION: Middle-age female lying in bed in no distress RESPIRATORY SYSTEM: Unlabored breathing , decreased breath sounds at bases HEART: S1 S2 regular rate and rhythm , ABDOMEN: Soft , no tenderness EXTREMITIES: Bilateral legs are currently wrapped in Theo wrap did have some drainage of the right foot wound but patient mention overall wound is looking better at the time of dressing changes - Labs CBC & Chem 7: 05/31/24 05:33 05/31/24 05:33 Labs: Abnormal Lab Results - Last 24 Hours (Table) 05/31/24 05/31/24 Range/Units 05:33 05:33 RBC 2.47 L (4.10-5.20) X 10*6/uL Hgb 8.2 L (12.0-15.0) g/dL Hct 25.8 L (37.2-46.3) % MCV 104.5 H (80.0-97.0) FL MCH 33.2 H (27.0-32.0) pg MCHC 31.8 L (32.0-37.0) g/dL RDW 24.7 H (11.5-14.5) % Plt Count 71 L (140-440) X 10*3/uL MPV 12.6 H (9.5-12.2) FL Immature Gran # 0.07 H (0.00-0.04) X 10*3/uL Eosinophils # 0.64 H (0.04-0.35) X 10*3/uL Immature Plt Fraction 8.1 H (1.1-6.1) % Sodium 134 L (135-145) mmol/L Carbon Dioxide 19.0 L (21.6-31.8) mmol/L Est GFR (CKD-EPI) 48 L (>=60) BUN/Creatinine Ratio 11.29 L (12.00-20.00) Ratio Calcium 7.9 L (8.7-10.3) mg/dL Total Bilirubin 1.4 H (0.3-1.2) mg/dL Alkaline Phosphatase 237 H (41-126) U/L Total Protein 3.7 L (6.2-8.2) g/dL Albumin 2.3 L (3.8-4.9) g/dL Globulin 1.4 L (1.6-3.3) g/dL Microbiology - Last 24 Hours (Table) 05/26/24 05:40 Blood Culture - Final Blood Assessment and Plan (1) Bilateral lower leg cellulitis Current Visit: Yes Status: Acute Code(s): L03.116 - CELLULITIS OF LEFT LOWER LIMB; L03.115 - CELLULITIS OF RIGHT LOWER LIMB SNOMED Code(s): 465319387 (2) Wound of right foot Current Visit: Yes Status: Acute Code(s): S91.301A - UNSPECIFIED OPEN WOUND, RIGHT FOOT, INITIAL ENCOUNTER SNOMED Code(s): 007858335 (3) Leukocytosis Current Visit: Yes Status: Acute Code(s): D72.829 - ELEVATED WHITE BLOOD CELL COUNT, UNSPECIFIED SNOMED Code(s): 024854904 Plan: 1patient with a leukocytosis in this patient who did have a cirrhosis of the liver now presented to the hospital with increasing abdominal distention but no significant tenderness clinically not behaving as SBP but not entirely excluded patient did have bilateral lower extremity swelling and redness and complaint of cellulitis likely etiology of this elevated white count 2-local wound care to the right foot wound with the Medihoney followed by moist dressing change daily 3-patient patient is afebrile white count has normalized culture be negative for any resistant pathogen 4-patient remains to be afebrile, white count is normal to continue with Rocephin 2 g daily to continue while inpatient transition to oral antibiotic on discharge Dictation was produced using [employer] dictation software. please excuse any grammatical, word or spelling errors. Time with Patient: Less than 30
[2024-05-31] MEDS: ALBUMIN HUMAN 25% 50 ML in EMPTY BAG 1 BAG IVPB SCH (16:09)
--- NOTE | 2024-05-31 16:50 | PN ---
PROGRESS NOTE A 44-year-old white female. She is on IV antibiotics for possible spontaneous bacterial peritonitis, diuresis with lactulose and adrenal orthostatic hypotension, possibly she will have paracentesis tomorrow and then possibly will be discharged. Check orthostatic changes prior to going home, cardiorenal syndrome, ascites, cirrhosis, COPD. Prognosis guarded. Continue current treatments. Xifaxan and lactulose. MMODL / IJN: [id number] /
--- NOTE | 2024-05-31 20:33 | P.PN ---
Subjective Patient is seen for follow-up for volume overload and history of hyponatremia. Currently maintained on oral sodium bicarb and IV diuretics. Started on Lasix drip this morning No significant complaints today. Serum sodium is 134 and serum creatinine at 1.4 today. Scheduled for paracentesis today. Objective - Vital Signs Vital signs: Vital Signs Temp 97.9 F 05/31/24 19:42 Pulse 100 05/31/24 19:42 Resp 18 05/31/24 19:42 BP 92/51 05/31/24 15:50 Pulse Ox 97 05/31/24 15:50 FiO2 Intake & Output 05/31/24 05/31/24 06/01/24 06:59 18:59 06:59 Intake Total 480 460 640 Output Total 900 750 600 Balance -420 -290 40 Intake: Oral 480 460 640 Output: Drainage 200 Right Abdomen 200 Urine 700 750 600 Other: Voiding Method Indwelling Catheter Indwelling Catheter # Bowel Movements 1 - Exam Patient is awake, comfortable, no acute distress. Examination of the heart S1 and S2 Examination of the lungs bilateral breath sounds are heard Abdomen is soft nontender obese, ascites Examination of lower extremity shows edema 2-3+ bilaterally, legs are wrapped. FUR COMBER exam grossly intact - Labs CBC & Chem 7: 05/31/24 05:33 05/31/24 05:33 Labs: Abnormal Lab Results - Last 24 Hours (Table) 05/31/24 05/31/24 Range/Units 05:33 05:33 RBC 2.47 L (4.10-5.20) X 10*6/uL Hgb 8.2 L (12.0-15.0) g/dL Hct 25.8 L (37.2-46.3) % MCV 104.5 H (80.0-97.0) FL MCH 33.2 H (27.0-32.0) pg MCHC 31.8 L (32.0-37.0) g/dL RDW 24.7 H (11.5-14.5) % Plt Count 71 L (140-440) X 10*3/uL MPV 12.6 H (9.5-12.2) FL Immature Gran # 0.07 H (0.00-0.04) X 10*3/uL Eosinophils # 0.64 H (0.04-0.35) X 10*3/uL Immature Plt Fraction 8.1 H (1.1-6.1) % Sodium 134 L (135-145) mmol/L Carbon Dioxide 19.0 L (21.6-31.8) mmol/L Est GFR (CKD-EPI) 48 L (>=60) BUN/Creatinine Ratio 11.29 L (12.00-20.00) Ratio Calcium 7.9 L (8.7-10.3) mg/dL Total Bilirubin 1.4 H (0.3-1.2) mg/dL Alkaline Phosphatase 237 H (41-126) U/L Total Protein 3.7 L (6.2-8.2) g/dL Albumin 2.3 L (3.8-4.9) g/dL Globulin 1.4 L (1.6-3.3) g/dL Microbiology - Last 24 Hours (Table) 05/26/24 05:40 Blood Culture - Final Blood Assessment and Plan Assessment: 1. Chronic kidney disease stage IIIa with baseline creatinine 1.3-1.5 secondary to hepatorenal syndrome. GFR at baseline. 2. Hypervolemic hyponatremia. Improved. 3. Anemia status post blood transfusion this admission. EGD done this admission showed distal esophageal varices and reflux esophagitis. Iron replete. 4. Volume overload with ascites status post paracentesis with 11 L drained May 25, 2024. 5. Liver cirrhosis. 6. Hypokalemia from diuresis. Replaced. Better. 7. Metabolic acidosis secondary to chronic kidney disease and compensation for underlying respiratory alkalosis from cirrhosis. Plan: Continue with Lasix drip with close monitoring of renal function. Patient is at high risk for acute kidney injury as she is scheduled for paracentesis as well today. Continue with oral sodium bicarb Repeat labs in a.m.
--- NOTE | 2024-06-01 08:01 | P.PN ---
Subjective Progress Note Date: 06/01/24 Principal diagnosis: Upper GI bleed status post 1 unit packed RBC transfusion Abdominal ascites, s/p large-volume paracentesis 11 L removed Chronic hypotension, patient high risk of intermittent diuresis with renal complication, will start patient on Lasix drip 5 mg an hour for next 24 to 48 hours Liver cirrhosis and secondary ascites due to chronic alcohol use Esophageal varices and portal hypertension Chronic hyponatremia hyper bulimic Morbid obesity likely sleep disordered breathing and sleep apnea with obesity hypoventilation COPD Bipolar disorder Chronic thrombocytopenia due to liver disease Chronic kidney disease with a component of hepatorenal syndrome June 01, 2024, patient seen and examined during rounds, patient had another large-volume paracentesis on 8 L of acetic fluid removed which she tolerated well however postprocedure 4 bags of albumin was given. Patient remains on IV Lasix drip 5 mg an hour tolerating well labs from today pending. In addition patient remains on bronchodilator along with Symbicort and IV antibiotics with Rocephin patient on iron supplements and Neurontin patient has been given midodrine for blood pressure support, and lactulose along with rifaximin mean for hepatic encephalopathy, mental status clear will follow closely both lower extremity wrapped with Theo wrap May 31, 2024, patient well-known to me seen evaluate examined while covering for Dr. Luis Alfredo Shields, patient admitted into hospital with upper GI bleed likely related to gastric varices, required 1 unit of packed RBC bleeding stabilized initially was managed in ICU and transferred to medical floor. Patient had a large-volume paracentesis over 11 L were removed, patient of note that was hospitalized earlier this month was discharged and readmitted within few days. She is awake and alert denies any chest pain, mild shortness of breath is present, both lower extremity covered with Theo wrap. Cultures acetic fluid no growth so far blood culture and urine culture also negative. Other labs including CBC hemoglobin hematocrit stable 8.2/25 actually up 48 hours ago of 7.8/24, white cell count 8.1, platelet count of 71 from 60,000 prior exam, sodium 134, BUN/creatinine 10/1.4 alk phos is 237. Objective - Vital Signs Vital signs: Vital Signs Temp 98.2 F 06/01/24 07:33 Pulse 94 06/01/24 07:33 Resp 18 06/01/24 07:33 BP 88/44 06/01/24 07:33 Pulse Ox 94 L 06/01/24 07:33 FiO2 Intake & Output 05/31/24 06/01/24 06/01/24 18:59 06:59 18:59 Intake Total 460 880 Output Total 750 1600 Balance -290 -720 Weight 121 kg Intake: Oral 460 880 Output: Urine 750 1600 Other: Voiding Method Indwelling Catheter Indwelling Catheter - Exam GENERAL EXAM: Alert, pleasant 44-year-old female, on room air, fairly comfortable in no apparent distress. HEAD: Normocephalic. EYES: Normal reaction of pupils, equal size. NOSE: Clear with pink turbinates. THROAT: No erythema or exudates. NECK: No masses, no JVD. CHEST: No chest wall deformity. LUNGS: Equal air entry with no crackles, wheeze, rhonchi or dullness. CVS: S1 and S2 normal with no audible murmur, regular rhythm. ABDOMEN: Abdominal distention with positive fluid wave. No hepatosplenomegaly, normal bowel sounds, no guarding or rigidity. SPINE: No scoliosis or deformity SKIN: No rashes CENTRAL NERVOUS SYSTEM: No focal deficits, tone is normal in all 4 extremities. EXTREMITIES: There is no peripheral edema. No clubbing, no cyanosis. Peripheral pulses are intact. - Labs CBC & Chem 7: 05/31/24 05:33 05/31/24 05:33 Labs: Abnormal Lab Results - Last 24 Hours (Table) 05/31/24 05/31/24 Range/Units 05:33 05:33 RBC 2.47 L (4.10-5.20) X 10*6/uL Hgb 8.2 L (12.0-15.0) g/dL Hct 25.8 L (37.2-46.3) % MCV 104.5 H (80.0-97.0) FL MCH 33.2 H (27.0-32.0) pg MCHC 31.8 L (32.0-37.0) g/dL RDW 24.7 H (11.5-14.5) % Plt Count 71 L (140-440) X 10*3/uL MPV 12.6 H (9.5-12.2) FL Immature Gran # 0.07 H (0.00-0.04) X 10*3/uL Eosinophils # 0.64 H (0.04-0.35) X 10*3/uL Immature Plt Fraction 8.1 H (1.1-6.1) % Sodium 134 L (135-145) mmol/L Carbon Dioxide 19.0 L (21.6-31.8) mmol/L Est GFR (CKD-EPI) 48 L (>=60) BUN/Creatinine Ratio 11.29 L (12.00-20.00) Ratio Calcium 7.9 L (8.7-10.3) mg/dL Total Bilirubin 1.4 H (0.3-1.2) mg/dL Alkaline Phosphatase 237 H (41-126) U/L Total Protein 3.7 L (6.2-8.2) g/dL Albumin 2.3 L (3.8-4.9) g/dL Globulin 1.4 L (1.6-3.3) g/dL Microbiology - Last 24 Hours (Table) 05/26/24 05:40 Blood Culture - Final Blood Assessment and Plan Assessment: Upper GI bleed status post 1 unit packed RBC transfusion, doing well no drop in hemoglobin noted Abdominal ascites, s/p large-volume paracentesis 11 L removed, followed by another within 72 hours 8 L removed Chronic hypotension, patient high risk of intermittent diuresis with renal complication, will continue patient on Lasix drip 5 mg an hour for next 24 to 48 hours Liver cirrhosis and secondary ascites due to chronic alcohol use Esophageal varices and portal hypertension Chronic hyponatremia hyper bulimic Morbid obesity likely sleep disordered breathing and sleep apnea with obesity hypoventilation COPD Bipolar disorder Chronic thrombocytopenia due to liver disease Chronic kidney disease with a component of hepatorenal syndrome Plan: As above, will continue to monitor electrolytes daily basis Time with Patient: Greater than 30
[2024-06-01 08:29] LABS: BUN/Creat Ratio 11.15 Ratio (12.00-20.00); Blood Urea Nitrogen 14.5 mg/dL (9.0-27.0); Calcium 7.7 mg/dL (8.7-10.3); Carbon Dioxide 21.1 mmol/L (21.6-31.8); Chloride 104 mmol/L (96-109); Glucose 99 mg/dL (70-110); Magnesium 1.5 mg/dL (1.5-2.4); Phosphorus 3.6 mg/dL (2.4-5.1); Potassium 3.2 mmol/L (3.5-5.5); Sodium 136 mmol/L (135-145)
--- NOTE | 2024-06-01 08:32 | US ---
EXAMINATION TYPE: US paracentesis abd w/image DATE OF EXAM: 05/31/2024 2:09 PM COMPARISON: prior paracentesis. CLINICAL INDICATION:Female, 44 years old with history of ascites; , ascites ATTENDING: Dr. Luis E Byrne PROCEDURE: Informed consent was obtained. The risks of the procedure were extensively explained incl uding risk of damage to surrounding bowel with perforation and need for additional procedures. Proced ure was performed in the ultrasound procedure suite. Ultrasound imaging of the abdomen demonstrate as citic fluid. An appropriate access site was localized to the right lower abdomen. Timeout was taken p er protocol. The skin was prepped and draped in the usual sterile fashion and then locally anesthetiz ed with 1% lidocaine. The peritoneal cavity was then accessed via a 5-[place] one-step needle/cathete r. Approximately 8300 cc of clear straw-colored fluid was obtained. Samples were sent to the lab for analysis. Postprocedural imaging of the abdomen demonstrate a minimal amount of abdominal fluid. Patient tolerated procedure well without immediate complication. Hemostasis at the procedural site w as obtained with a sterile bandage placed. The patient was monitored in the holding area following th e procedure and was subsequently discharged in stable condition. IMPRESSION: Ultrasound guided paracentesis, with approximately 8300 cc of clear straw-colored fluid drained. Path ology results pending. No immediate complications were evident. [facility], , 06/01/2024 8:29 AM
--- NOTE | 2024-06-01 11:31 | P.PN ---
Subjective Progress Note Date: 06/01/24 Patient is a 44-year-old white female with past medical history significant for cirrhosis of the liver, alcohol induced, abdominal ascites requiring frequent paracentesis, UTI with VRE. She is very debilitated, and has had frequent hospitalizations since January of this year, mostly due to complications due to her liver disease. Of note, recently discharged home from this facility May 16, she was apparently admitted for fluid overload and lower extremity cellulitis. Patient returns to the emergency department 05/24/2024 with a chief complaint of abdominal pain. Denies fevers. She does undergo frequent paracentesis. She has positive fluid balance, and severe lower extremity edema. Admits 20 pound weight gain since her hospital discharge on May 16. Yesterday, underwent large-volume paracentesis, total of 11L was removed. Following this she became hypotensive and patient was transferred to the intensive care unit. She did receive 50 g of 25% albumin. She also was noted to have some dark tarry stools that started yesterday. Hemoglobin has been trending down, most recent 7 g/dL. She is receiving 1 unit PRBCs at the moment. She does have history of GI bleeding. Most recent EGD done February 19, 2024 showing a small antral gastric ulcer with no active bleeding and small distal esophageal varices. Patient currently being evaluated in the ICU, she is alert and oriented. Continues to have dark tarry stools. Fecal occult positive. Blood pressure slightly hypotensive currently 86/46 mmHg. She is receiving a unit of PRBCs at the moment. Normal saline continues at 150 mL/h. Patient did receive an additional 1 L fluid bolus earlier. May require vasopressors if she remains hypotensive. Fluid status appears positive. Urine output is adequate, around 50 to 100 cc/h. Patient denies any urinary symptoms at this time, no burning/dysuria, no hematuria, no urinary frequency. On her recent previous hospital discharge, her Lasix was discontinued. She has significant lower extremity swelling, her legs are wrapped with Theo bandages. Most recent CBC from yesterday: WBC count 15.1, hemoglobin 7, hematocrit 22, platelets 86. CMP from yesterday: Sodium 127, potassium 3.1, chloride 99, serum bicarb 22, BUN 41, creatinine 1.31, glucose 100. Urinalysis was sent. LFTs mildly elevated. Patient has been started on empiric Rocephin for possible SBP. If blood pressure remains hypotensive, may require vasopressors Seen today on 05/27/2024, remains in the ICU, her EGD yesterday showed 1 cm varices, no active bleeding. Patient is on room air, does not seem to be in any distress, she is however hypotensive still requiring midodrine and requiring norepinephrine at 0.04 mcg/kg/min. Nephrology saw the patient, and trying to give the patient intermittent doses of albumin followed by Lasix, patient is developing worsening ascites and worsening fluid retention. Not receiving any IV fluids at this point, and did not require any further blood transfusion. She only had 1 unit of packed RBCs since she came into the ICU. WBC count today is 11.4 hemoglobin is 8.6 INR is 1.8 electrolytes are normal BUN is 30 creatinine 1.16 Patient was seen today on 05/28/2024, remains in the ICU, still requiring a small dose of norepinephrine at 0.03 mcg/kg/min developing ascites again, hemoglobin is stable at 7.9. Patient did not improve much with albumin Lasix yesterday as recommended by nephrology, continues to build up significant amount of fluids in her abdomen. She is supposedly scheduled to have repeat paracentesis on Thursday next week. WBC count is 8.5 hemoglobin 7.9. Electrolytes are normal potassium is 3.2 BUN is 23 creatinine 1.13. Patient was seen on 05/29/24, patient is doing well, remains in the ICU, she is off norepinephrine at this point.Patient is hemodynamically stable, her CBC is unremarkable, hemoglobin is holding at 7.8, patient received only 1 unit of packed RBCs since admission to the ICU electrolytes are noted sodium is 130 potassium 4.4 bicarb is 16 BUN is 18 creatinine 1.18. Patient is developing worsening ascites, now she is losing from the previous site of paracentesis in the right lower quadrant area. A collecting ostomy bag has been placed over the site. No cough no wheezing no shortness of breath, patient is on room air. Will receiving Lasix 40 mg IV push every 12 hours remains on Rocephin. My plan today is to transfer the patient out of the ICU to a medical surgical bed The patient is seen today May 30, 2024 in follow-up on the regular medical floor. She was transferred out of the ICU yesterday. She is currently resting comfortably in bed. Awake and alert in no acute distress. Maintaining O2 saturations in the 90s on room air. She is status post 1 unit of packed red blood cells this admission. Current hemoglobin 7.8. Ascites fluid cultures were negative. Urine culture negative. Blood culture showing no growth. She is continued on ceftriaxone. She remains on DuoNeb and elations, Symbicort. Remains on IV diuretics. Currently in a -1.3 L balance. The patient is seen today May 31, 2024 in follow-up on the regular medical floor. She is currently resting comfortably in bed. Awake and alert in no acute distress. She is still having ongoing issues with abdominal distention. Paracentesis to be formed while inpatient. He is status post 1 unit of packed red blood cells this admission. 05/25/2024 paracentesis fluid cultures revealed no growth. Urine culture no growth. Blood cultures no growth. White count 8.9. Hemoglobin 8.2. Platelets 71,000. Sodium 134. Potassium 4.0. Bicarb 19. BUN 16. Creatinine 1.4. Glucose 101. Albumin 2.3. She is continued on DuoNeb and elations, Symbicort. Remains on antibiotics in the form of ceftriaxone. The patient is seen today June 01, 2024 in follow-up on the regular medical floor. She is awake and alert in no acute distress. Resting fairly comfortably in bed. She did undergo a paracentesis yesterday with 8.3 L of fluid removed. She is continued on Lasix drip at 5 mg/h. She is maintaining good O2 saturations in the 90s on room air. Blood, urine and ascites fluid cultures all revealed no growth. Sodium 136. Potassium 3.2. Bicarb 21. BUN 14. Creatinine 1.3. Glucose 99. She is currently in a -1 L balance. She remains on DuoNeb ventilations, Symbicort. Antibiotics in the form of ceftriaxone. Objective - Vital Signs Vital signs: Vital Signs Temp 98.2 F 06/01/24 07:33 Pulse 92 06/01/24 10:00 Resp 18 06/01/24 07:33 BP 106/61 06/01/24 08:22 Pulse Ox 94 L 06/01/24 07:33 FiO2 Intake & Output 05/31/24 06/01/24 06/01/24 18:59 06:59 18:59 Intake Total 460 880 218 Output Total 750 1600 Balance -290 -720 218 Weight 121 kg Intake: Intake, IV Titration 100 Amount Furosemide 100 mg In 100 Sodium Chloride 0.9% 90 ml @ 5 MG/HR 5 mls/hr IV .Q20H [facility] Rx#:[id number] Oral 460 880 118 Output: Urine 750 1600 Other: Voiding Method Indwelling Catheter Indwelling Catheter - Exam GENERAL EXAM: Alert, obese, pleasant 44-year-old female, sitting up in bed, on room air, in no apparent distress. HEAD: Normocephalic. EYES: Normal reaction of pupils, equal size. NOSE: Clear with pink turbinates. THROAT: No erythema or exudates. NECK: No masses, no JVD. CHEST: No chest wall deformity. LUNGS: Equal air entry with no crackles, wheeze, rhonchi or dullness. CVS: S1 and S2 normal with no audible murmur, regular rhythm. ABDOMEN: Abdominal distention. No hepatosplenomegaly, normal bowel sounds, no guarding or rigidity. SPINE: No scoliosis or deformity SKIN: No rashes CENTRAL NERVOUS SYSTEM: No focal deficits, tone is normal in all 4 extremities. EXTREMITIES: There is no peripheral edema. No clubbing, no cyanosis. Peripheral pulses are intact. - Labs CBC & Chem 7: 05/31/24 05:33 06/01/24 05:32 Labs: Abnormal Lab Results - Last 24 Hours (Table) 06/01/24 Range/Units 05:32 Potassium 3.2 L (3.5-5.5) mmol/L Carbon Dioxide 21.1 L (21.6-31.8) mmol/L Est GFR (CKD-EPI) 52 L (>=60) BUN/Creatinine Ratio 11.15 L (12.00-20.00) Ratio Calcium 7.7 L (8.7-10.3) mg/dL Microbiology - Last 24 Hours (Table) 05/26/24 05:40 Blood Culture - Final Blood Assessment and Plan Assessment: Acute upper GI bleed, patient's having multiple melanotic stools, status post 1 unit of packed RBCs. Current hemoglobin 8.2 Abdominal ascites, status post large-volume paracentesis on 05/25/2024, total of 11 L was removed. Another paracentesis performed 05/31/2024 with 8.3 L removed Hypotension, recovered Abdominal pain, improved Acute leukocytosis History of liver cirrhosis, secondary to chronic alcohol use History of GI bleed, gastric ulcer, and small esophageal varices; last EGD done 02/19/24 Hypervolemic hyponatremia Severe hypokalemia, being replaced per protocol, improved, currently 3.2 History of UTI/VRE History of recent cholecystectomy History of COPD History of bipolar disorder History of chronic thrombocytopenia Chronic kidney disease, secondary to hepatorenal syndrome History of alcoholism, last reported drink > 6 months ago Plan: The patient was seen and evaluated Medications and labs reviewed Currently stable and on room air Continued on bronchodilators Remains on a Lasix drip at 5 mg/h He had another paracentesis yesterday Remains on ceftriaxone per ID service This patient was seen independently by the pulmonary nurse practitioner addressing pulmonary issues I have personally seen and examined the patient, performed the documentation and the assessment and plan as written. Number of minutes spent on the visit: 25 Dictation was produced using [employer] dictation software. Please excuse any grammatical, word or spelling errors.
--- NOTE | 2024-06-01 11:57 | P.PN ---
Subjective Progress Note Date: 06/01/24 SURGICAL PROGRESS NOTE CHIEF COMPLAINT: Abdominal ascites HISTORY OF PRESENT ILLNESS: The patient status post paracentesis yesterday with 8.3 L removed. She reports that her abdomen feels less distended. She is on a Lasix drip. No new complaints. PHYSICAL EXAM: VITAL SIGNS: Reviewed. GENERAL: in no acute distress. ABDOMEN: Soft. Abdomen less distended. Umbilicus and right flank where sutur es were removed there are is no ascites drainage NEUROLOGIC: Alert and oriented. Cranial nerves II through XII grossly intact. ASSESSMENT: 1. Alcohol cirrhosis of the liver with large amount of abdominal ascites 2. Acute GI bleed with melanotic stools status post EGD with distal esophageal varices with no active bleeding, esophagitis, small hiatal hernia, mild duodenitis 3. Acute blood loss anemia due to GI bleed 4. Hyponatremia 5. Thrombocytopenia PLAN: -Okay to leave bandage off the right side of the abdomen. -Continue supportive care -Continue PPI Physician Material Handler Loader note has been reviewed by physician. Signing provider agrees with the documented findings, assessment, and plan of care. Objective - Vital Signs Vital signs: Vital Signs Temp 98.2 F 06/01/24 07:33 Pulse 92 06/01/24 10:00 Resp 18 06/01/24 07:33 BP 106/61 06/01/24 08:22 Pulse Ox 94 L 06/01/24 07:33 FiO2 Intake & Output 05/31/24 06/01/24 06/01/24 18:59 06:59 18:59 Intake Total 460 880 218 Output Total 750 1600 Balance -290 -720 218 Weight 121 kg Intake: Intake, IV Titration 100 Amount Furosemide 100 mg In 100 Sodium Chloride 0.9% 90 ml @ 5 MG/HR 5 mls/hr IV .Q20H [facility] Rx#:[id number] Oral 460 880 118 Output: Urine 750 1600 Other: Voiding Method Indwelling Catheter Indwelling Catheter - Labs CBC & Chem 7: 05/31/24 05:33 06/01/24 05:32 Labs: Abnormal Lab Results - Last 24 Hours (Table) 06/01/24 Range/Units 05:32 Potassium 3.2 L (3.5-5.5) mmol/L Carbon Dioxide 21.1 L (21.6-31.8) mmol/L Est GFR (CKD-EPI) 52 L (>=60) BUN/Creatinine Ratio 11.15 L (12.00-20.00) Ratio Calcium 7.7 L (8.7-10.3) mg/dL Microbiology - Last 24 Hours (Table) 05/26/24 05:40 Blood Culture - Final Blood
--- NOTE | 2024-06-01 13:02 | P.PN ---
Subjective Progress Note Date: 06/01/24 Principal diagnosis: Reason for follow-up is leukocytosis and lower extremity cellulitis Patient is a 44-year-old female with a past medical history significant for cirrhosis of the liver bipolar recurrent admission to the hospital for ascites and lower extremity cellulitis patient was brought into the hospital concerning for increasing swelling to the abdomen as well as lower extremity patient did have elevated white count prompted this consultation. On today's evaluation that is 06/01/2024,the patient denies any fever or any chills, patient is breathing comfortably on room air, the patient denies chest pain shortness of breath and no significant cough, patient did have paracentesis tomorrow 8.5 L ascitic fluid yesterday denies any abdominal pain or pain to the lower extremity. Patient did not have any CBC done today white count was normal yesterday creat inine is 1.3 Objective - Vital Signs Vital signs: Vital Signs Temp 98.2 F 06/01/24 07:33 Pulse 92 06/01/24 10:00 Resp 18 06/01/24 07:33 BP 106/61 06/01/24 08:22 Pulse Ox 94 L 06/01/24 07:33 FiO2 Intake & Output 05/31/24 06/01/24 06/01/24 18:59 06:59 18:59 Intake Total 460 880 218 Output Total 750 1600 Balance -290 -720 218 Weight 121 kg Intake: Intake, IV Titration 100 Amount Furosemide 100 mg In 100 Sodium Chloride 0.9% 90 ml @ 5 MG/HR 5 mls/hr IV .Q20H [facility] Rx#:[id number] Oral 460 880 118 Output: Urine 750 1600 Other: Voiding Method Indwelling Catheter Indwelling Catheter - Exam GENERAL DESCRIPTION: Middle-age female lying in bed in no distress RESPIRATORY SYSTEM: Unlabored breathing , decreased breath sounds at bases HEART: S1 S2 regular rate and rhythm , ABDOMEN: Soft , no tenderness EXTREMITIES: Bilateral legs are currently wrapped in Theo wrap did have some drainage of the right foot wound but patient mention overall wound is looking better at the time of dressing changes - Labs CBC & Chem 7: 05/31/24 05:33 06/01/24 05:32 Labs: Abnormal Lab Results - Last 24 Hours (Table) 06/01/24 Range/Units 05:32 Potassium 3.2 L (3.5-5.5) mmol/L Carbon Dioxide 21.1 L (21.6-31.8) mmol/L Est GFR (CKD-EPI) 52 L (>=60) BUN/Creatinine Ratio 11.15 L (12.00-20.00) Ratio Calcium 7.7 L (8.7-10.3) mg/dL Microbiology - Last 24 Hours (Table) 05/26/24 05:40 Blood Culture - Final Blood Assessment and Plan (1) Bilateral lower leg cellulitis Current Visit: Yes Status: Acute Code(s): L03.116 - CELLULITIS OF LEFT LOWER LIMB; L03.115 - CELLULITIS OF RIGHT LOWER LIMB SNOMED Code(s): 199035848 (2) Wound of right foot Current Visit: Yes Status: Acute Code(s): S91.301A - UNSPECIFIED OPEN WOUND, RIGHT FOOT, INITIAL ENCOUNTER SNOMED Code(s): 527011917 (3) Leukocytosis Current Visit: Yes Status: Acute Code(s): D72.829 - ELEVATED WHITE BLOOD CELL COUNT, UNSPECIFIED SNOMED Code(s): 513961597 Plan: 1patient with a leukocytosis in this patient who did have a cirrhosis of the liver now presented to the hospital with increasing abdominal distention but no significant tenderness clinically not behaving as SBP but not entirely excluded patient did have bilateral lower extremity swelling and redness and complaint of cellulitis likely etiology of this elevated white count 2-local wound care to the right foot wound with the Medihoney followed by moist dressing change daily 3-patient patient is afebrile white count has normalized culture be negative for any resistant pathogen 4-patient currently being treated with Rocephin 2 g daily and monitor clinical course closely Dictation was produced using [employer] software. please excuse any grammatical, word or spelling errors.
--- NOTE | 2024-06-01 13:20 | P.PN ---
Subjective Patient is seen for follow-up for volume overload and history of hyponatremia. Currently maintained on Lasix drip No significant complaints today. Status post paracentesis on 03/31/2024 with 8.3 L removed. Patient received albumin. Serum sodium is 136 and serum creatinine at 1.3 today. Objective - Vital Signs Vital signs: Vital Signs Temp 98.2 F 06/01/24 13:12 Pulse 88 06/01/24 13:13 Resp 18 06/01/24 13:12 BP 99/61 06/01/24 13:12 Pulse Ox 95 06/01/24 13:12 FiO2 Intake & Output 05/31/24 06/01/24 06/01/24 18:59 06:59 18:59 Intake Total 460 880 218 Output Total 750 1600 Balance -290 -720 218 Weight 121 kg Intake: Intake, IV Titration 100 Amount Furosemide 100 mg In 100 Sodium Chloride 0.9% 90 ml @ 5 MG/HR 5 mls/hr IV .Q20H [facility] Rx#:[id number] Oral 460 880 118 Output: Urine 750 1600 Other: Voiding Method Indwelling Catheter Indwelling Catheter Indwelling Catheter - Exam Patient is awake, comfortable, no acute distress. Examination of the heart S1 and S2 Examination of the lungs bilateral breath sounds are heard Abdomen is soft nontender obese, ascites Examination of lower extremity shows edema 2-3+ bilaterally, legs are wrapped. 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 Chronic kidney disease stage IIIa with baseline creatinine 1.3-1.5 secondary to hepatorenal syndrome. GFR at baseline. 2. Hypervolemic hyponatremia. Improved. 3. Anemia status post blood transfusion this admission. EGD done this admissi on showed distal esophageal varices and reflux esophagitis. Iron replete. 4. Volume overload with ascites status post paracentesis with 11 L drained May 25, 2024. 5. Liver cirrhosis. 6. Hypokalemia from diuresis. Replaced. Better. 7. Metabolic acidosis secondary to chronic kidney disease and compensation for underlying respiratory alkalosis from cirrhosis. Plan: Continue with Lasix drip with close monitoring of renal function. Patient is at high risk for acute kidney injury. Continue with oral sodium bicarb Repeat labs in a.m.
[2024-06-01] MEDS ORDERED: ZINC OXIDE PASTE (Z-GUARD) 1 APPLIC TOPICAL PRN (17:19)
[2024-06-01] MEDS: POTASSIUM CHLORIDE ER 20 MEQ TAB.ER PO SCH (21:24)
[2024-06-02] MEDS: POTASSIUM CHLORIDE ER 20 MEQ TAB.ER PO SCH ×2 (03:30→17:05)
[2024-06-02 06:36] LABS: African American GFR (CKD) 60 (>60 ml/min/1.73 sqM); Anion Gap 7 mmol/L; Blood Urea Nitrogen 15 mg/dL (7-17); Calcium 7.5 mg/dL (8.4-10.2); Carbon Dioxide 21 mmol/L (22-30); Chloride 102 mmol/L (98-107); Glucose 87 mg/dL (74-99); Magnesium 1.4 mg/dL (1.6-2.3); Non-African American GFR(CKD) 52 (>60 ml/min/1.73 sqM); Phosphorus 3.2 mg/dL (2.5-4.5); Potassium 3.2 mmol/L (3.5-5.1); Sodium 130 mmol/L (137-145)
--- NOTE | 2024-06-02 12:34 | P.PN ---
Subjective Progress Note Date: 06/02/24 Principal diagnosis: Upper GI bleed status post 1 unit packed RBC transfusion Abdominal ascites, s/p large-volume paracentesis 11 L removed Chronic hypotension, patient high risk of intermittent diuresis with renal complication, will start patient on Lasix drip 5 mg an hour for next 24 to 48 hours Liver cirrhosis and secondary ascites due to chronic alcohol use Esophageal varices and portal hypertension Chronic hyponatremia hyper bulimic Morbid obesity likely sleep disordered breathing and sleep apnea with obesity hypoventilation COPD Bipolar disorder Chronic thrombocytopenia due to liver disease Chronic kidney disease with a component of hepatorenal syndrome June 02, 2024, patient seen eval examined during rounds labs reviewed medications reviewed care plan discussed, respiratory status remains stable denies any chest pain breathing comfortably still have severe and generalized anasarca patient extremities have been wrapped up with Theo wrap, patient remains on IV Lasix drip 5 mg an hour adequate diuresis present, patient continued to be on negative balance, plan is to continue monitor electrolytes and renal functions closely if tolerated well will continue until next 48 hours reassess for large-volume tap paracentesis at that point June 01, 2024, patient seen and examined during rounds, patient had another large-volume paracentesis on 8 L of acetic fluid removed which she tolerated well however postprocedure 4 bags of albumin was given. Patient remains on IV Lasix drip 5 mg an hour tolerating well labs from today pending. In addition patient remains on bronchodilator along with Symbicort and IV antibiotics with Rocephin patient on iron supplements and Neurontin patient has been given midodrine for blood pressure support, and lactulose along with rifaximin mean for hepatic encephalopathy, mental status clear will follow closely both lower extremity wrapped with Theo wrap May 31, 2024, patient well-known to me seen evaluate examined while covering for Dr. Luis Alfredo Shields, patient admitted into hospital with upper GI bleed likely related to gastric varices, required 1 unit of packed RBC bleeding stabilized initially was managed in ICU and transferred to medical floor. Patient had a large-volume paracentesis over 11 L were removed, patient of note that was hospitalized earlier this month was discharged and readmitted within few days. She is awake and alert denies any chest pain, mild shortness of breath is present, both lower extremity covered with Theo wrap. Cultures acetic fluid no growth so far blood culture and urine culture also negative. Other labs including CBC hemoglobin hematocrit stable 8.2/25 actually up 48 hours ago of 7.8/24, white cell count 8.1, platelet count of 71 from 60,000 prior exam, sodiu m 134, BUN/creatinine 10.4 alk phos is 237. Objective - Vital Signs Vital signs: Vital Signs Temp 98 F 06/02/24 08:40 Pulse 115 H 06/02/24 08:40 Resp 18 06/02/24 08:40 BP 121/63 06/02/24 08:40 Pulse Ox 99 06/02/24 08:40 FiO2 Intake & Output 06/01/24 06/02/24 06/02/24 18:59 06:59 18:59 Intake Total 698 566.667 240 Output Total 700 600 Balance -2 -33.333 240 Weight 123.4 kg Intake: Intake, IV Titration 100 86.667 Amount Furosemide 100 mg In 100 86.667 Sodium Chloride 0.9% 90 ml @ 5 MG/HR 5 mls/hr IV .Q20H [facility] Rx#:[id number] Oral 598 480 240 Output: Urine 700 600 Other: Voiding Method Indwelling Catheter Indwelling Catheter Indwelling Catheter - Exam GENERAL EXAM: Alert, pleasant 44-year-old female, on room air, fairly comfortable in no apparent distress. HEAD: Normocephalic. EYES: Normal reaction of pupils, equal size. NOSE: Clear with pink turbinates. THROAT: No erythema or exudates. NECK: No masses, no JVD. CHEST: No chest wall deformity. LUNGS: Equal air entry with no crackles, wheeze, rhonchi or dullness. CVS: S1 and S2 normal with no audible murmur, regular rhythm. ABDOMEN: Abdominal distention with positive fluid wave. No hepatosplenomegaly, normal bowel sounds, no guarding or rigidity. SPINE: No scoliosis or deformity SKIN: No rashes CENTRAL NERVOUS SYSTEM: No focal deficits, tone is normal in all 4 extremities. EXTREMITIES: There is no peripheral edema. No clubbing, no cyanosis. Peripheral pulses are intact. - Labs CBC & Chem 7: 05/31/24 05:33 06/02/24 07:45 Labs: Abnormal Lab Results - Last 24 Hours (Table) 10/31/24 10/31/24 10/31/24 Range/Units 02:15 05:34 07:45 Sodium 130 L (137-145) mmol/L Potassium 3.0 L 3.2 L 3.4 L (3.5-5.1) mmol/L Carbon Dioxide 21 L (22-30) mmol/L Creatinine 1.26 H (0.52-1.04) mg/dL Calcium 7.5 L (8.4-10.2) mg/dL Magnesium 1.4 L (1.6-2.3) mg/dL Assessment and Plan Assessment: Upper GI bleed status post 1 unit packed RBC transfusion, doing well no drop in hemoglobin noted Abdominal ascites, s/p large-volume paracentesis 11 L removed, followed by another within 72 hours 8 L removed Chronic hypotension, patient high risk of intermittent diuresis with renal complication, will continue patient on Lasix drip 5 mg an hour for next 24 to 48 hours Liver cirrhosis and secondary ascites due to chronic alcohol use Esophageal varices and portal hypertension Chronic hyponatremia hyper bulimic Morbid obesity likely sleep disordered breathing and sleep apnea with obesity hypoventilation COPD Bipolar disorder Chronic thrombocytopenia due to liver disease Chronic kidney disease with a component of hepatorenal syndrome Plan: As above, will continue to monitor electrolytes daily basis Time with Patient: Greater than 30
--- NOTE | 2024-06-02 12:50 | P.PN ---
Subjective Patient is seen for follow-up for volume overload and history of hyponatremia. Currently maintained on Lasix drip No significant complaints today. Status post paracentesis on 03/31/2024 with 8.3 L removed. Patient received albumin. Serum sodium is 130 and serum creatinine at 1.2 today. Objective - Vital Signs Vital signs: Vital Signs Temp 98.7 F 06/02/24 12:38 Pulse 95 06/02/24 12:38 Resp 16 06/02/24 12:38 BP 99/64 06/02/24 12:38 Pulse Ox 93 L 06/02/24 12:38 FiO2 Intake & Output 06/01/24 06/02/24 06/02/24 18:59 06:59 18:59 Intake Total 698 566.667 240 Output Total 700 600 500 Balance -2 -33.333 -260 Weight 123.4 kg Intake: Intake, IV Titration 100 86.667 Amount Furosemide 100 mg In 100 86.667 Sodium Chloride 0.9% 90 ml @ 5 MG/HR 5 mls/hr IV .Q20H [facility] Rx#:[id number] Oral 598 480 240 Output: Urine 700 600 500 Other: Voiding Method Indwelling Catheter Indwelling Catheter Indwelling Catheter - Exam Patient is awake, comfortable, no acute distress. Examination of the heart S1 and S2 Examination of the lungs bilateral breath sounds are heard Abdomen is soft nontender obese, ascites Examination of lower extremity shows edema 2+ bilaterally, legs are wrapped. 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 Chronic kidney disease stage IIIa with baseline creatinine 1.3-1.5 secondary to hepatorenal syndrome. GFR at baseline. 2. Hypervolemic hyponatremia. Improved. 3. Anemia status post blood transfusion this admission. EGD done this admission showed distal esophageal varices and reflux esophagitis. Iron replete. 4. Volume overload with ascites status post paracentesis with 11 L drained May 25, 2024. 5. Liver cirrhosis. 6. Hypokalemia from diuresis. Replaced. Better. 7. Metabolic acidosis secondary to chronic kidney disease and compensation for underlying respiratory alkalosis from cirrhosis. Plan: DC Lasix drip in a.m. Replace potassium Continue with oral sodium bicarb Repeat labs in a.m.
--- NOTE | 2024-06-02 13:08 | P.PN ---
Subjective Progress Note Date: 06/02/24 Patient is a 44-year-old white female with past medical history significant for cirrhosis of the liver, alcohol induced, abdominal ascites requiring frequent paracentesis, UTI with VRE. She is very debilitated, and has had frequent hospitalizations since January of this year, mostly due to complications due to her liver disease. Of note, recently discharged home from this facility May 16, she was apparently admitted for fluid overload and lower extremity cellulitis. Patient returns to the emergency department 05/24/2024 with a chief complaint of abdominal pain. Denies fevers. She does undergo frequent paracentesis. She has positive fluid balance, and severe lower extremity edema. Admits 20 pound weight gain since her hospital discharge on May 16. Yesterday, underwent large-volume paracentesis, total of 11L was removed. Following this she became hypotensive and patient was transferred to the intensive care unit. She did receive 50 g of 25% albumin. She also was noted to have some dark tarry stools that started yesterday. Hemoglobin has been trending down, most recent 7 g/dL. She is receiving 1 unit PRBCs at the moment. She does have history of GI bleeding. Most recent EGD done February 19, 2024 showing a small antral gastric ulcer with no active bleeding and small distal esophageal varices. Patient currently being evaluated in the ICU, she is alert and oriented. Continues to have dark tarry stools. Fecal occult positive. Blood pressure slightly hypotensive currently 86/46 mmHg. She is receiving a unit of PRBCs at the moment. Normal saline continues at 150 mL/h. Patient did receive an additional 1 L fluid bolus earlier. May require vasopressors if she remains hypotensive. Fluid status appears positive. Urine output is adequate, around 50 to 100 cc/h. Patient denies any urinary symptoms at this time, no burning/dysuria, no hematuria, no urinary frequency. On her recent previous hospital discharge, her Lasix was discontinued. She has significant lower extremity swelling, her legs are wrapped with Theo bandages. Most recent CBC from yesterday: WBC count 15.1, hemoglobin 7, hematocrit 22, platelets 86. CMP from yesterday: Sodium 127, potassium 3.1, chloride 99, serum bicarb 22, BUN 41, creatinine 1.31, glucose 100. Urinalysis was sent. LFTs mildly elevated. Patient has been started on empiric Rocephin for possible SBP. If blood pressure remains hypotensive, may require vasopressors Seen today on 05/27/2024, remains in the ICU, her EGD yesterday showed 1 cm varices, no active bleeding. Patient is on room air, does not seem to be in any distress, she is however hypotensive still requiring midodrine and requiring norepinephrine at 0.04 mcg/kg/min. Nephrology saw the patient, and trying to give the patient intermittent doses of albumin followed by Lasix, patient is developing worsening ascites and worsening fluid retention. Not receiving any IV fluids at this point, and did not require any further blood transfusion. She only had 1 unit of packed RBCs since she came into the ICU. WBC count today is 11.4 hemoglobin is 8.6 INR is 1.8 electrolytes are normal BUN is 30 creatinine 1.16 Patient was seen today on 05/28/2024, remains in the ICU, still requiring a small dose of norepinephrine at 0.03 mcg/kg/min developing ascites again, hemoglobin is stable at 7.9. Patient did not improve much with albumin Lasix yesterday as recommended by nephrology, continues to build up significant amount of fluids in her abdomen. She is supposedly scheduled to have repeat paracentesis on Thursday next week. WBC count is 8.5 hemoglobin 7.9. Electrolytes are normal potassium is 3.2 BUN is 23 creatinine 1.13. Patient was seen on 05/29/24, patient is doing well, remains in the ICU, she is off norepinephrine at this point.Patient is hemodynamically stable, her CBC is unremarkable, hemoglobin is holding at 7.8, patient received only 1 unit of packed RBCs since admission to the ICU electrolytes are noted sodium is 130 potassium 4.4 bicarb is 16 BUN is 18 creatinine 1.18. Patient is developing worsening ascites, now she is losing from the previous site of paracentesis in the right lower quadrant area. A collecting ostomy bag has been placed over the site. No cough no wheezing no shortness of breath, patient is on room air. Will receiving Lasix 40 mg IV push every 12 hours remains on Rocephin. My plan today is to transfer the patient out of the ICU to a medical surgical bed The patient is seen today May 30, 2024 in follow-up on the regular medical floor. She was transferred out of the ICU yesterday. She is currently resting comfortably in bed. Awake and alert in no acute distress. Maintaining O2 saturations in the 90s on room air. She is status post 1 unit of packed red blood cells this admission. Current hemoglobin 7.8. Ascites fluid cultures were negative. Urine culture negative. Blood culture showing no growth. She is continued on ceftriaxone. She remains on DuoNeb and elations, Symbicort. Remains on IV diuretics. Currently in a -1.3 L balance. The patient is seen today May 31, 2024 in follow-up on the regular medical floor. She is currently resting comfortably in bed. Awake and alert in no acute distress. She is still having ongoing issues with abdominal distention. Paracentesis to be formed while inpatient. He is status post 1 unit of packed red blood cells this admission. 05/25/2024 paracentesis fluid cultures revealed no growth. Urine culture no growth. Blood cultures no growth. White count 8.9. Hemoglobin 8.2. Platelets 71,000. Sodium 134. Potassium 4.0. Bicarb 19. BUN 16. Creatinine 1.4. Glucose 101. Albumin 2.3. She is continued on DuoNeb and elations, Symbicort. Remains on antibiotics in the form of ceftriaxone. The patient is seen today June 01, 2024 in follow-up on the regular medical floor. She is awake and alert in no acute distress. Resting fairly comfortably in bed. She did undergo a paracentesis yesterday with 8.3 L of fluid removed. She is continued on Lasix drip at 5 mg/h. She is maintaining good O2 saturations in the 90s on room air. Blood, urine and ascites fluid cultures all revealed no growth. Sodium 136. Potassium 3.2. Bicarb 21. BUN 14. Creatinine 1.3. Glucose 99. She is currently in a -1 L balance. She remains on DuoNeb ventilations, Symbicort. Antibiotics in the form of ceftriaxone. The patient is seen today June 02, 2024 in follow-up on the regular medical floor. She is sitting up in bed. Awake and alert in no acute distress. Denies any worsening shortness of breath, cough or congestion. She is maintaining O2 saturations in the 90s on room air. She is continued on a Lasix drip at 5 mg/h. She did undergo paracentesis yesterday. She is scheduled for an outpatient paracentesis on June 10, 2024. Sodium 130. Potassium 3.4. Bicarb 21. BUN 15. Creatinine 1.26. Glucose 87. Remains on DuoNeb inhalations and Symbicort. Objective - Vital Signs Vital signs: Vital Signs Temp 98.7 F 06/02/24 12:38 Pulse 95 06/02/24 12:38 Resp 16 06/02/24 12:38 BP 99/64 06/02/24 12:38 Pulse Ox 93 L 06/02/24 12:38 FiO2 Intake & Output 06/01/24 06/02/24 06/02/24 18:59 06:59 18:59 Intake Total 698 566.667 240 Output Total 700 600 500 Balance -2 -33.333 -260 Weight 123.4 kg Intake: Intake, IV Titration 100 86.667 Amount Furosemide 100 mg In 100 86.667 Sodium Chloride 0.9% 90 ml @ 5 MG/HR 5 mls/hr IV .Q20H [facility] Rx#:[id number] Oral 598 480 240 Output: Urine 700 600 500 Other: Voiding Method Indwelling Catheter Indwelling Catheter Indwelling Catheter - Exam GENERAL EXAM: Alert, 44-year-old female, on room air, in no apparent distress. HEAD: Normocephalic. EYES: Normal reaction of pupils, equal size. NOSE: Clear with pink turbinates. THROAT: No erythema or exudates. NECK: No masses, no JVD. CHEST: No chest wall deformity. LUNGS: Equal air entry with no crackles, wheeze, rhonchi or dullness. CVS: S1 and S2 normal with no audible murmur, regular rhythm. ABDOMEN: Abdominal distention. No hepatosplenomegaly, normal bowel sounds, no guarding or rigidity. SPINE: No scoliosis or deformity SKIN: No rashes CENTRAL NERVOUS SYSTEM: No focal deficits, tone is normal in all 4 extremities. EXTREMITIES: There is no peripheral edema. No clubbing, no cyanosis. Periphe ral pulses are intact. - Labs CBC & Chem 7: 05/31/24 05:33 06/02/24 07:45 Labs: Abnormal Lab Results - Last 24 Hours (Table) 06/02/24 06/02/24 06/02/24 Range/Units 02:15 05:34 07:45 Sodium 130 L (137-145) mmol/L Potassium 3.0 L 3.2 L 3.4 L (3.5-5.1) mmol/L Carbon Dioxide 21 L (22-30) mmol/L Creatinine 1.26 H (0.52-1.04) mg/dL Calcium 7.5 L (8.4-10.2) mg/dL Magnesium 1.4 L (1.6-2.3) mg/dL Assessment and Plan Assessment: Acute upper GI bleed, patient's having multiple melanotic stools, status post 1 unit of packed RBCs. Current hemoglobin 8.2 Abdominal ascites, status post large-volume paracentesis on 05/25/2024, total of 11 L was removed. Another paracentesis performed 05/31/2024 with 8.3 L removed Hypotension, recovered Abdominal pain, improved Acute leukocytosis History of liver cirrhosis, secondary to chronic alcohol use History of GI bleed, gastric ulcer, and small esophageal varices; last EGD done 02/19/24 Hypervolemic hyponatremia, sodium 130 Severe hypokalemia, being replaced per protocol, improved, currently 3.4 History of UTI/VRE History of recent cholecystectomy History of COPD History of bipolar disorder History of chronic thrombocytopenia Chronic kidney disease, secondary to hepatorenal syndrome History of alcoholism, last reported drink > 6 months ago Plan: The patient was seen and evaluated Medications and labs reviewed Currently stable and on room air Continued on DuoNeb and elations, Symbicort Remains on a Lasix drip at 5 mg/h This patient was seen independently by the pulmonary nurse practitioner addressing pulmonary issues I have personally seen and examined the patient, performed the documentation and the assessment and plan as written. Number of minutes spent on the visit: 23 Dictation was produced using [employer] dictation software. Please excuse any grammatical, word or spelling errors.
--- NOTE | 2024-06-02 14:26 | P.PN ---
Subjective Progress Note Date: 06/02/24 Principal diagnosis: Reason for follow-up is leukocytosis and lower extremity cellulitis Patient is a 44-year-old female with a past medical history significant for cirrhosis of the liver bipolar recurrent admission to the hospital for ascites and lower extremity cellulitis patient was brought into the hospital concerning for increasing swelling to the abdomen as well as lower extremity patient did have elevated white count prompted this consultation. On today's evaluation that is 06/02/2024,the patient remains to be afebrile, patient is on room air not requiring supplemental oxygen and denies any shortness of breath no chest pain or cough.Patient denies having any nausea or vomiting, no abdominal pain and no diarrhea has been reported patient denies any worsening pain to the lower extremity. Patient did have potassium of 3.4 no CBC was done today culture remains to be negative Objective - Vital Signs Vital signs: Vital Signs Temp 98.7 F 06/02/24 12:38 Pulse 95 06/02/24 12:38 Resp 16 06/02/24 12:38 BP 99/64 06/02/24 12:38 Pulse Ox 93 L 06/02/24 12:38 FiO2 Intake & Output 06/01/24 06/02/24 06/02/24 18:59 06:59 18:59 Intake Total 698 566.667 240 Output Total 700 600 500 Balance -2 -33.333 -260 Weight 123.4 kg Intake: Intake, IV Titration 100 86.667 Amount Furosemide 100 mg In 100 86.667 Sodium Chloride 0.9% 90 ml @ 5 MG/HR 5 mls/hr IV .Q20H [facility] Rx#:[id number] Oral 598 480 240 Output: Urine 700 600 500 Other: Voiding Method Indwelling Catheter Indwelling Catheter Indwelling Catheter - Exam GENERAL DESCRIPTION: Middle-age female lying in bed in no distress RESPIRATORY SYSTEM: Unlabored breathing , decreased breath sounds at bases HEART: S1 S2 regular rate and rhythm , ABDOMEN: Soft , no tenderness EXTREMITIES: Bilateral legs are currently wrapped in Theo wrap did have some drainage of the right foot wound but patient mention overall wound is looking better at the time of dressing changes - Labs CBC & Chem 7: 05/31/24 05:33 06/02/24 07:45 Labs: Abnormal Lab Results - Last 24 Hours (Table) 06/02/24 06/02/24 06/02/24 Range/Units 02:15 05:34 07:45 Sodium 130 L (137-145) mmol/L Potassium 3.0 L 3.2 L 3.4 L (3.5-5.1) mmol/L Carbon Dioxide 21 L (22-30) mmol/L Creatinine 1.26 H (0.52-1.04) mg/dL Calcium 7.5 L (8.4-10.2) mg/dL Magnesium 1.4 L (1.6-2.3) mg/dL Assessment and Plan (1) Bilateral lower leg cellulitis Current Visit: Yes Status: Acute Code(s): L03.116 - CELLULITIS OF LEFT LOWER LIMB; L03.115 - CELLULITIS OF RIGHT LOWER LIMB SNOMED Code(s): 433881642 (2) Wound of right foot Current Visit: Yes Status: Acute Code(s): S91.301A - UNSPECIFIED OPEN WOUND, RIGHT FOOT, INITIAL ENCOUNTER SNOMED Code(s): 059508282 (3) Leukocytosis Current Visit: Yes Status: Acute Code(s): D72.829 - ELEVATED WHITE BLOOD CELL COUNT, UNSPECIFIED SNOMED Code(s): 199829974 Plan: 1patient with a leukocytosis in this patient who did have a cirrhosis of the liver now presented to the hospital with increasing abdominal distention but no significant tenderness clinically not behaving as SBP but not entirely excluded patient did have bilateral lower extremity swelling and redness and complaint of cellulitis likely etiology of this elevated white count 2-local wound care to the right foot wound with the Medihoney followed by moist dressing change daily 3-patient patient is afebrile white count has normalized culture has been negative for any resistant pathogen 4-patient to continue with Rocephin 2 g daily and short course of oral Ceftin on discharge Dictation was produced using [employer] dictation software. please excuse any grammatical, word or spelling errors. Time with Patient: Less than 30
--- NOTE | 2024-06-02 14:35 | P.PN ---
Subjective Progress Note Date: 06/02/24 SURGICAL PROGRESS NOTE CHIEF COMPLAINT: Abdominal ascites HISTORY OF PRESENT ILLNESS: Patient remains on a Lasix drip. She is status post paracentesis x 2 during this admission. No new complaints. Potassium 3.4 and being replaced. Sodium 130 PHYSICAL EXAM: VITAL SIGNS: Reviewed. GENERAL: in no acute distress. ABDOMEN: Soft. Abdomen less distended. Umbilicus and right flank where sutures were removed there is no ascites drainage NEUROLOGIC: Alert and oriented. Cranial nerves II through XII grossly intact. ASSESSMENT: 1. Alcohol cirrhosis of the liver with large amount of abdominal ascites 2. Acute GI bleed with melanotic stools status post EGD with distal esophageal varices with no active bleeding, esophagitis, small hiatal hernia, mild duodenitis 3. Acute blood loss anemia due to GI bleed 4. Hyponatremia 5. Thrombocytopenia PLAN: -Continue supportive care -Continue PPI Physician Director Pharmacovigilance note has been reviewed by physician. Signing provider agrees with the documented findings, assessment, and plan of care. Objective - Vital Signs Vital signs: Vital Signs Temp 98.7 F 06/02/24 12:38 Pulse 95 06/02/24 12:38 Resp 16 06/02/24 12:38 BP 99/64 06/02/24 12:38 Pulse Ox 93 L 06/02/24 12:38 FiO2 Intake & Output 06/01/24 06/02/24 06/02/24 18:59 06:59 18:59 Intake Total 698 566.667 240 Output Total 700 600 500 Balance -2 -33.333 -260 Weight 123.4 kg Intake: Intake, IV Titration 100 86.667 Amount Furosemide 100 mg In 100 86.667 Sodium Chloride 0.9% 90 ml @ 5 MG/HR 5 mls/hr IV .Q20H [facility] Rx#:[id number] Oral 598 480 240 Output: Urine 700 600 500 Other: Voiding Method Indwelling Catheter Indwelling Catheter Indwelling Catheter - Labs CBC & Chem 7: 05/31/24 05:33 06/02/24 07:45 Labs: Abnormal Lab Results - Last 24 Hours (Table) 06/02/24 06/02/24 06/02/24 Range/Units 02:15 05:34 07:45 Sodium 130 L (137-145) mmol/L Potassium 3.0 L 3.2 L 3.4 L (3.5-5.1) mmol/L Carbon Dioxide 21 L (22-30) mmol/L Creatinine 1.26 H (0.52-1.04) mg/dL Calcium 7.5 L (8.4-10.2) mg/dL Magnesium 1.4 L (1.6-2.3) mg/dL
[2024-06-03 09:00] LABS: BUN/Creat Ratio 10.44 Ratio (12.00-20.00); Blood Urea Nitrogen 16.7 mg/dL (9.0-27.0); Calcium 7.9 mg/dL (8.7-10.3); Carbon Dioxide 20.7 mmol/L (21.6-31.8); Chloride 107 mmol/L (96-109); Glucose 98 mg/dL (70-110); Magnesium 1.6 mg/dL (1.5-2.4); Phosphorus 3.2 mg/dL (2.4-5.1); Potassium 4.1 mmol/L (3.5-5.5); Sodium 137 mmol/L (135-145)
--- NOTE | 2024-06-03 12:28 | P.PN ---
Subjective Progress Note Date: 06/03/24 Patient is a 44-year-old white female with past medical history significant for cirrhosis of the liver, alcohol induced, abdominal ascites requiring frequent paracentesis, UTI with VRE. She is very debilitated, and has had frequent hospitalizations since January of this year, mostly due to complications due to her liver disease. Of note, recently discharged home from this facility May 16, she was apparently admitted for fluid overload and lower extremity cellulitis. Patient returns to the emergency department 05/24/2024 with a chief complaint of abdominal pain. Denies fevers. She does undergo frequent paracentesis. She has positive fluid balance, and severe lower extremity edema. Admits 20 pound weight gain since her hospital discharge on May 16. Yesterday, underwent large-volume paracentesis, total of 11L was removed. Following this she became hypotensive and patient was transferred to the intensive care unit. She did receive 50 g of 25% albumin. She also was noted to have some dark tarry stools that started yesterday. Hemoglobin has been trending down, most recent 7 g/dL. She is receiving 1 unit PRBCs at the moment. She does have history of GI bleeding. Most recent EGD done February 19, 2024 showing a small antral gastric ulcer with no active bleeding and small distal esophageal varices. Patient currently being evaluated in the ICU, she is alert and oriented. Continues to have dark tarry stools. Fecal occult positive. Blood pressure slightly hypotensive currently 86/46 mmHg. She is receiving a unit of PRBCs at the moment. Normal saline continues at 150 mL/h. Patient did receive an additional 1 L fluid bolus earlier. May require vasopressors if she remains hypotensive. Fluid status appears positive. Urine output is adequate, around 50 to 100 cc/h. Patient denies any urinary symptoms at this time, no burning/dysuria, no hematuria, no urinary frequency. On her recent previous hospital discharge, her Lasix was discontinued. She has significant lower extremity swelling, her legs are wrapped with Theo bandages. Most recent CBC from yesterday: WBC count 15.1, hemoglobin 7, hematocrit 22, platelets 86. CMP from yesterday: Sodium 127, potassium 3.1, chloride 99, serum bicarb 22, BUN 41, creatinine 1.31, glucose 100. Urinalysis was sent. LFTs mildly elevated. Patient has been started on empiric Rocephin for possible SBP. If blood pressure remains hypotensive, may require vasopressors Seen today on 05/27/2024, remains in the ICU, her EGD yesterday showed 1 cm varices, no active bleeding. Patient is on room air, does not seem to be in any distress, she is however hypotensive still requiring midodrine and requiring norepinephrine at 0.04 mcg/kg/min. Nephrology saw the patient, and trying to give the patient intermittent doses of albumin followed by Lasix, patient is developing worsening ascites and worsening fluid retention. Not receiving any IV fluids at this point, and did not require any further blood transfusion. She only had 1 unit of packed RBCs since she came into the ICU. WBC count today is 11.4 hemoglobin is 8.6 INR is 1.8 electrolytes are normal BUN is 30 creatinine 1.16 Patient was seen today on 05/28/2024, remains in the ICU, still requiring a small dose of norepinephrine at 0.03 mcg/kg/min developing ascites again, hemoglobin is stable at 7.9. Patient did not improve much with albumin Lasix yesterday as recommended by nephrology, continues to build up significant amount of fluids in her abdomen. She is supposedly scheduled to have repeat paracentesis on Thursday next week. WBC count is 8.5 hemoglobin 7.9. Electrolytes are normal potassium is 3.2 BUN is 23 creatinine 1.13. Patient was seen on 05/29/24, patient is doing well, remains in the ICU, she is off norepinephrine at this point.Patient is hemodynamically stable, her CBC is unremarkable, hemoglobin is holding at 7.8, patient received only 1 unit of packed RBCs since admission to the ICU electrolytes are noted sodium is 130 potassium 4.4 bicarb is 16 BUN is 18 creatinine 1.18. Patient is developing worsening ascites, now she is losing from the previous site of paracentesis in the right lower quadrant area. A collecting ostomy bag has been placed over the site. No cough no wheezing no shortness of breath, patient is on room air. Will receiving Lasix 40 mg IV push every 12 hours remains on Rocephin. My plan today is to transfer the patient out of the ICU to a medical surgical bed The patient is seen today May 30, 2024 in follow-up on the regular medical floor. She was transferred out of the ICU yesterday. She is currently resting comfortably in bed. Awake and alert in no acute distress. Maintaining O2 saturations in the 90s on room air. She is status post 1 unit of packed red blood cells this admission. Current hemoglobin 7.8. Ascites fluid cultures were negative. Urine culture negative. Blood culture showing no growth. She is continued on ceftriaxone. She remains on DuoNeb and elations, Symbicort. Remains on IV diuretics. Currently in a -1.3 L balance. The patient is seen today May 31, 2024 in follow-up on the regular medical floor. She is currently resting comfortably in bed. Awake and alert in no acute distress. She is still having ongoing issues with abdominal distention. Paracentesis to be formed while inpatient. He is status post 1 unit of packed red blood cells this admission. 05/25/2024 paracentesis fluid cultures revealed no growth. Urine culture no growth. Blood cultures no growth. White count 8.9. Hemoglobin 8.2. Platelets 71,000. Sodium 134. Potassium 4.0. Bicarb 19. BUN 16. Creatinine 1.4. Glucose 101. Albumin 2.3. She is continued on DuoNeb and elations, Symbicort. Remains on antibiotics in the form of ceftriaxone. The patient is seen today June 01, 2024 in follow-up on the regular medical floor. She is awake and alert in no acute distress. Resting fairly comfortably in bed. She did undergo a paracentesis yesterday with 8.3 L of fluid removed. She is continued on Lasix drip at 5 mg/h. She is maintaining good O2 saturations in the 90s on room air. Blood, urine and ascites fluid cultures all revealed no growth. Sodium 136. Potassium 3.2. Bicarb 21. BUN 14. Creatinine 1.3. Glucose 99. She is currently in a -1 L balance. She remains on DuoNeb ventilations, Symbicort. Antibiotics in the form of ceftriaxone. The patient is seen today June 02, 2024 in follow-up on the regular medical floor. She is sitting up in bed. Awake and alert in no acute distress. Denies any worsening shortness of breath, cough or congestion. She is maintaining O2 saturations in the 90s on room air. She is continued on a Lasix drip at 5 mg/h. She did undergo paracentesis yesterday. She is scheduled for an outpatient paracentesis on June 10, 2024. Sodium 130. Potassium 3.4. Bicarb 21. BUN 15. Creatinine 1.26. Glucose 87. Remains on DuoNeb inhalations and Symbicort. The patient is seen today June 03, 2024 in follow-up on the regular medical floor. She is awake and alert in no acute distress. She denies any worsening shortness of breath, cough or congestion. She is maintaining good O2 saturations in the 90s on room air. She has been afebrile. Hemodynamically stable. Ascites fluid cultures revealed no growth. Urine and blood cultures revealed no growth. Sodium 137. Potassium 4.1. Bicarb 21. BUN 17. Creatinine 1.6. She remains on a Lasix drip at 5 mg/h. Continued on DuoNeb inhalations, Symbicort. Currently in a -600 mL balance. Objective - Vital Signs Vital signs: Vital Signs Temp 97.9 F 06/03/24 12:00 Pulse 78 06/03/24 12:00 Resp 16 06/03/24 12:00 BP 107/63 06/03/24 12:00 Pulse Ox 94 L 06/03/24 12:00 FiO2 Intake & Output 06/02/24 06/03/24 06/03/24 18:59 06:59 18:59 Intake Total 240 340 360 Output Total 800 400 275 Balance -560 -60 85 Weight 123.4 kg 117.962 kg Intake: Intake, IV Titration 100 Amount Furosemide 100 mg In 100 Sodium Chloride 0.9% 90 ml @ 5 MG/HR 5 mls/hr IV .Q20H [facility] Rx#:[id number] Oral 240 240 360 Output: Urine 800 400 275 Other: Voiding Method Indwelling Catheter Indwelling Catheter Indwelling Catheter - Exam GENERAL EXAM: Alert, pleasant 44-year-old female, sitting up in bed, having breakfast, on room air, in no apparent distress. HEAD: Normocephalic. EYES: Normal reaction of pupils, equal size. NOSE: Clear with pink turbinates. THROAT: No erythema or exudates. NECK: No masses, no JVD. CHEST: No chest wall deformity. LUNGS: Equal air entry with no crackles, wheeze, rhonchi or dullness. CVS: S1 and S2 normal with no audible murmur, regular rhythm. ABDOMEN: Abdominal distention. No hepatosplenomegaly, normal bowel sounds, no guarding or rigidity. SPINE: No scoliosis or deformity SKIN: No rashes CENTRAL NERVOUS SYSTEM: No focal deficits, tone is normal in all 4 extremities. EXTREMITIES: There is no peripheral edema. No clubbing, no cyanosis. Peripheral pulses are intact. - Labs CBC & Chem 7: 05/31/24 05:33 06/03/24 06:03 Labs: Abnormal Lab Results - Last 24 Hours (Table) 06/03/24 Range/Units 06:03 Carbon Dioxide 20.7 L (21.6-31.8) mmol/L Creatinine 1.6 H (0.6-1.5) mg/dL Est GFR (CKD-EPI) 41 L (>=60) BUN/Creatinine Ratio 10.44 L (12.00-20.00) Ratio Calcium 7.9 L (8.7-10.3) mg/dL Assessment and Plan Assessment: Acute upper GI bleed, patient's having multiple melanotic stools, status post 1 unit of packed RBCs. Current hemoglobin 8.2 Abdominal ascites, status post large-volume paracentesis on 05/25/2024, total of 11 L was removed. Another paracentesis performed 05/31/2024 with 8.3 L removed Hypotension, recovered Abdominal pain, improved Acute leukocytosis History of liver cirrhosis, secondary to chronic alcohol use History of GI bleed, gastric ulcer, and small esophageal varices; last EGD done 02/19/24 Hypervolemic hyponatremia, sodium 130 Severe hypokalemia, being replaced per protocol, improved, currently 4.1 History of UTI/VRE History of recent cholecystectomy History of COPD History of bipolar disorder History of chronic thrombocytopenia Chronic kidney disease, secondary to hepatorenal syndrome History of alcoholism, last reported drink > 6 months ago Plan: The patient was seen and evaluated Medications and labs reviewed Currently stable and on room air Continue the current treatment plan Home once cleared by surgical services and nephrology This patient was seen independently by the pulmonary nurse practitioner kael tavarez pulmonary issues I have personally seen and examined the patient, performed the documentation and the assessment and plan as written. Number of minutes spent on the visit: 22 Dictation was produced using [email or web address] dictation software. Please excuse any grammatical, word or spelling errors.
--- NOTE | 2024-06-03 12:56 | P.PN ---
Subjective Progress Note Date: 06/03/24 SURGICAL PROGRESS NOTE CHIEF COMPLAINT: Abdominal ascites HISTORY OF PRESENT ILLNESS: Patient has been started on IV Lasix and is currently off the Lasix drip. She is status post paracentesis x 2 during this admission. No new complaints. Patient has not had no drainage from the umbilicus or her right flank from the old SALV[place]OR drain site. Afebrile PHYSICAL EXAM: VITAL SIGNS: Reviewed. GENERAL: in no acute distress. ABDOMEN: Soft. Distended. Umbilicus and right flank where sutures were remove d there is no ascites drainage NEUROLOGIC: Alert and oriented. Cranial nerves II through XII grossly intact. ASSESSMENT: 1. Alcohol cirrhosis of the liver with large amount of abdominal ascites 2. Acute GI bleed with melanotic stools status post EGD with distal esophageal varices with no active bleeding, esophagitis, small hiatal hernia, mild duodenitis 3. Acute blood loss anemia due to GI bleed 4. Hyponatremia improved PLAN: -Surgical service will sign off. Please call with any questions or concerns. -Continue supportive care -Continue PPI Physician Package Wrapper note has been reviewed by physician. Signing provider agrees with the documented findings, assessment, and plan of care. Objective - Vital Signs Vital signs: Vital Signs Temp 97.9 F 06/03/24 12:00 Pulse 78 06/03/24 12:00 Resp 16 06/03/24 12:00 BP 107/63 06/03/24 12:00 Pulse Ox 94 L 06/03/24 12:00 FiO2 Intake & Output 06/02/24 06/03/24 06/03/24 18:59 06:59 18:59 Intake Total 240 340 360 Output Total 800 400 275 Balance -560 -60 85 Weight 123.4 kg 117.962 kg Intake: Intake, IV Titration 100 Amount Furosemide 100 mg In 100 Sodium Chloride 0.9% 90 ml @ 5 MG/HR 5 mls/hr IV .Q20H [facility] Rx#:[id number] Oral 240 240 360 Output: Urine 800 400 275 Other: Voiding Method Indwelling Catheter Indwelling Catheter Indwelling Catheter - Labs CBC & Chem 7: 05/31/24 05:33 06/03/24 06:03 Labs: Abnormal Lab Results - Last 24 Hours (Table) 06/03/24 Range/Units 06:03 Carbon Dioxide 20.7 L (21.6-31.8) mmol/L Creatinine 1.6 H (0.6-1.5) mg/dL Est GFR (CKD-EPI) 41 L (>=60) BUN/Creatinine Ratio 10.44 L (12.00-20.00) Ratio Calcium 7.9 L (8.7-10.3) mg/dL
--- NOTE | 2024-06-03 15:38 | P.PN ---
Subjective Progress Note Date: 06/03/24 Principal diagnosis: Reason for follow-up is leukocytosis and lower extremity cellulitis Patient is a 44-year-old female with a past medical history significant for cirrhosis of the liver bipolar recurrent admission to the hospital for ascites and lower extremity cellulitis patient was brought into the hospital concerning for increasing swelling to the abdomen as well as lower extremity patient did have elevated white count prompted this consultation. On today's evaluation that is 06/03/2024, the patient continues to be afebrile, the patient is on room air and breathing comfortably, the Pt denies having any chest pain or cough, the patient denies having any abdominal pain no vomiting or any diarrhea, denies pain to the lower extremity mention feeling better wants to go home. Patient did have a creatinine 1.6 no CBC was done today Objective - Vital Signs Vital signs: Vital Signs Temp 98 F 06/03/24 08:06 Pulse 92 06/03/24 08:46 Resp 16 06/03/24 08:06 BP 92/58 06/03/24 08:06 Pulse Ox 91 L 06/03/24 08:06 FiO2 Intake & Output 06/02/24 06/03/24 06/03/24 18:59 06:59 18:59 Intake Total 240 340 360 Output Total 800 400 Balance -560 -60 360 Weight 123.4 kg 117.962 kg Intake: Intake, IV Titration 100 Amount Furosemide 100 mg In 100 Sodium Chloride 0.9% 90 ml @ 5 MG/HR 5 mls/hr IV .Q20H [facility] Rx#:[id number] Oral 240 240 360 Output: Urine 800 400 Other: Voiding Method Indwelling Catheter Indwelling Catheter - Exam GENERAL DESCRIPTION: Middle-age female lying in bed in no distress RESPIRATORY SYSTEM: Unlabored breathing , decreased breath sounds at bases HEART: S1 S2 regular rate and rhythm , ABDOMEN: Soft , no tenderness EXTREMITIES: Bilateral legs are currently wrapped in Theo wrap did have some drainage of the right foot wound but patient mention overall wound is looking better at the time of dressing changes - Labs CBC & Chem 7: 05/31/24 05:33 06/03/24 06:03 Labs: Abnormal Lab Results - Last 24 Hours (Table) 06/03/24 Range/Units 06:03 Carbon Dioxide 20.7 L (21.6-31.8) mmol/L Creatinine 1.6 H (0.6-1.5) mg/dL Est GFR (CKD-EPI) 41 L (>=60) BUN/Creatinine Ratio 10.44 L (12.00-20.00) Ratio Calcium 7.9 L (8.7-10.3) mg/dL Assessment and Plan (1) Bilateral lower leg cellulitis Current Visit: Yes Status: Acute Code(s): L03.116 - CELLULITIS OF LEFT LOWER LIMB; L03.115 - CELLULITIS OF RIGHT LOWER LIMB SNOMED Code(s): 524265883 (2) Wound of right foot Current Visit: Yes Status: Acute Code(s): S91.301A - UNSPECIFIED OPEN WOUND, RIGHT FOOT, INITIAL ENCOUNTER SNOMED Code(s): 745668634 (3) Leukocytosis Current Visit: Yes Status: Acute Code(s): D72.829 - ELEVATED WHITE BLOOD CELL COUNT, UNSPECIFIED SNOMED Code(s): 150028631 Plan: 1patient with a leukocytosis in this patient who did have a cirrhosis of the liver now presented to the hospital with increasing abdominal distention but no significant tenderness clinically not behaving as SBP but not entirely excluded patient did have bilateral lower extremity swelling and redness and complaint of cellulitis likely etiology of this elevated white count 2-local wound care to the right foot wound with the Medihoney followed by moist dressing change daily 3-patient patient is afebrile white count has normalized culture has been negative for any resistant pathogen 4-patient has completed course of Rocephin will suggest Omnicef while inpatient and a short course of Ceftin on discharge Dictation was produced using [email or web address] dictation software. please excuse any grammatical, word or spelling errors. Time with Patient: Less than 30
--- NOTE | 2024-06-03 16:09 | P.PN ---
Subjective Patient is seen for follow-up for volume overload and history of hyponatremia. Currently maintained on Lasix drip No significant complaints today. Status post paracentesis on 03/31/2024 with 8.3 L removed. Patient received albumin. Serum sodium is 137 and serum creatinine at 1.6 today. Objective - Vital Signs Vital signs: Vital Signs Temp 98 F 06/03/24 13:37 Pulse 80 06/03/24 13:37 Resp 19 06/03/24 13:37 BP 123/64 06/03/24 13:37 Pulse Ox 94 L 06/03/24 13:37 FiO2 Intake & Output 06/02/24 06/03/24 06/03/24 18:59 06:59 18:59 Intake Total 240 340 360 Output Total 800 400 275 Balance -560 -60 85 Weight 123.4 kg 117.962 kg Intake: Intake, IV Titration 100 Amount Furosemide 100 mg In 100 Sodium Chloride 0.9% 90 ml @ 5 MG/HR 5 mls/hr IV .Q20H [facility], [facility]–1983 Rx#:[id number] Oral 240 240 360 Output: Urine 800 400 275 Other: Voiding Method Indwelling Catheter Indwelling Catheter Indwelling Catheter - Exam Patient is awake, comfortable, no acute distress. Examination of the heart S1 and S2 Examination of the lungs bilateral breath sounds are heard Abdomen is soft nontender obese, ascites Examination of lower extremity shows edema 2+ bilaterally, legs are wrapped. POSTPARTUM NURSE exam grossly intact - Labs CBC & Chem 7: 05/31/24 05:33 06/03/24 06:03 Labs: Abnormal Lab Results - Last 24 Hours (Table) 06/03/24 Range/Units 06:03 Carbon Dioxide 20.7 L (21.6-31.8) mmol/L Creatinine 1.6 H (0.6-1.5) mg/dL Est GFR (CKD-EPI) 41 L (>=60) BUN/Creatinine Ratio 10.44 L (12.00-20.00) Ratio Calcium 7.9 L (8.7-10.3) mg/dL Assessment and Plan Assessment: 1. Chronic kidney disease stage IIIa with baseline creatinine 1.3-1.5 secondary to hepatorenal syndrome. GFR at baseline. 2. Hypervolemic hyponatremia. Improved. 3. Anemia status post blood transfusion this admission. EGD done this admission showed distal esophageal varices and reflux esophagitis. Iron replete. 4. Volume overload with ascites status post paracentesis 5. Liver cirrhosis secondary to EtOH abuse 6. Hypokalemia from diuresis. Replaced. Better. 7. Metabolic acidosis secondary to chronic kidney disease and compensation for underlying respiratory alkalosis from cirrhosis. Plan: DC Lasix drip Changed to IV push Lasix Continue with oral sodium bicarb Repeat labs in a.m.
--- NOTE | 2024-06-03 17:53 | P.PN ---
Subjective Progress Note Date: 06/03/24 Principal diagnosis: Upper GI bleed status post 1 unit packed RBC transfusion Abdominal ascites, s/p large-volume paracentesis 11 L removed Chronic hypotension, patient high risk of intermittent diuresis with renal complication, will start patient on Lasix drip 5 mg an hour for next 24 to 48 hours Liver cirrhosis and secondary ascites due to chronic alcohol use Esophageal varices and portal hypertension Chronic hyponatremia hyper bulimic Morbid obesity likely sleep disordered breathing and sleep apnea with obesity hypoventilation COPD Bipolar disorder Chronic thrombocytopenia due to liver disease Chronic kidney disease with a component of hepatorenal syndrome June 03, 2024, patient seen eval examined during rounds labs reviewed medications reviewed care plan discussed, respiratory status overall remains stable on 2 L oxygen, patient remains on Lasix 5 mg an hour drip diuresing well, labs reviewed potassium improved to 4.1, BUN/creatinine continue to go up 16.7/1.6, would recommend to stop Lasix drip. Patient is being continued on Lasix IV every 12, potassium replacement protocol will reassess on Thursday for possible another large-volume paracentesis before discharge June 02, 2024, patient seen eval examined during rounds labs reviewed medications reviewed care plan discussed, respiratory status remains stable denies any chest pain breathing comfortably still have severe and generalized anasarca patient extremities have been wrapped up with Theo wrap, patient remains on IV Lasix drip 5 mg an hour adequate diuresis present, patient continued to be on negative balance, plan is to continue monitor electrolytes and renal functions closely if tolerated well will continue until next 48 hours reassess for large-volume tap paracentesis at that point June 01, 2024, patient seen and examined during rounds, patient had another large-volume paracentesis on 8 L of acetic fluid removed which she tolerated well however postprocedure 4 bags of albumin was given. Patient remains on IV Lasix drip 5 mg an hour tolerating well labs from today pending. In addition patient remains on bronchodilator along with Symbicort and IV antibiotics with Rocephin patient on iron supplements and Neurontin patient has been given midodrine for blood pressure support, and lactulose along with rifaximin mean for hepatic encephalopathy, mental status clear will follow closely both lower extremity wrapped with Theo wrap May 31, 2024, patient well-known to me seen evaluate examined while covering for Dr. Luis Alfredo Shields, patient admitted into hospital with upper GI bleed likely related to gastric varices, required 1 unit of packed RBC bleeding stabilized initially was managed in ICU and transferred to medical floor. Patient had a large-volume paracentesis over 11 L were removed, patient of note that was hospitalized earlier this month was discharged and readmitted within few days. She is awake and alert denies any chest pain, mild shortness of breath is present, both lower extremity covered with Theo wrap. Cultures acetic fluid no growth so far blood culture and urine culture also negative. Other labs including CBC hemoglobin hematocrit stable 8.2/25 actually up 48 hours ago of 7.8/, white cell count 8.1, platelet count of 71 from 60,000 prior exam, sodium 134, BUN/creatinine 05/03.4 alk phos is 237. Objective - Vital Signs Vital signs: Vital Signs Temp 98 F 06/03/24 13:37 Pulse 88 06/03/24 16:19 Resp 19 06/03/24 13:37 BP 123/64 06/03/24 13:37 Pulse Ox 94 L 06/03/24 13:37 FiO2 Intake & Output 06/02/24 06/03/24 06/03/24 18:59 06:59 18:59 Intake Total 240 340 360 Output Total 800 400 275 Balance -560 -60 85 Weight 123.4 kg 117.962 kg Intake: Intake, IV Titration 100 Amount Furosemide 100 mg In 100 Sodium Chloride 0.9% 90 ml @ 5 MG/HR 5 mls/hr IV .Q20H [facility] Rx#:[id number] Oral 240 240 360 Output: Urine 800 400 275 Other: Voiding Method Indwelling Catheter Indwelling Catheter Indwelling Catheter - Exam GENERAL EXAM: Alert, pleasant 44-year-old female, on room air, fairly comfortable in no apparent distress. HEAD: Normocephalic. EYES: Normal reaction of pupils, equal size. NOSE: Clear with pink turbinates. THROAT: No erythema or exudates. NECK: No masses, no JVD. CHEST: No chest wall deformity. LUNGS: Equal air entry with no crackles, wheeze, rhonchi or dullness. CVS: S1 and S2 normal with no audible murmur, regular rhythm. ABDOMEN: Abdominal distention with positive fluid wave. No hepatosplenomegaly, normal bowel sounds, no guarding or rigidity. SPINE: No scoliosis or deformity SKIN: No rashes CENTRAL NERVOUS SYSTEM: No focal deficits, tone is normal in all 4 extremities. EXTREMITIES: There is no peripheral edema. No clubbing, no cyanosis. Peripheral pulses are intact. - Labs CBC & Chem 7: 05/31/24 05:33 06/03/24 06:03 Labs: Abnormal Lab Results - Last 24 Hours (Table) 06/03/24 Range/Units 06:03 Carbon Dioxide 20.7 L (21.6-31.8) mmol/L Creatinine 1.6 H (0.6-1.5) mg/dL Est GFR (CKD-EPI) 41 L (>=60) BUN/Creatinine Ratio 10.44 L (12.00-20.00) Ratio Calcium 7.9 L (8.7-10.3) mg/dL Assessment and Plan Assessment: Upper GI bleed status post 1 unit packed RBC transfusion, doing well no drop in hemoglobin noted Abdominal ascites, s/p large-volume paracentesis 11 L removed, followed by another within 72 hours 8 L removed Chronic hypotension, patient high risk of intermittent diuresis with renal complication, will continue patient on Lasix drip 5 mg an hour for next 24 to 48 hours Liver cirrhosis and secondary ascites due to chronic alcohol use Esophageal varices and portal hypertension Chronic hyponatremia hyper bulimic Morbid obesity likely sleep disordered breathing and sleep apnea with obesity hypoventilation COPD Bipolar disorder Chronic thrombocytopenia due to liver disease Chronic kidney disease with a component of hepatorenal syndrome Plan: As above, will continue to monitor electrolytes daily basis, stop Lasix drip monitor renal function Time with Patient: Greater than 30
[2024-06-03] MEDS: CEFDINIR 300 MG CAP PO SCH (21:20)
[2024-06-03] MEDS: FUROSEMIDE 10 MG/ML 4 ML VIAL IV SCH (21:22)
--- NOTE | 2024-06-04 08:00 | P.PN ---
Subjective Progress Note Date: 06/04/24 Patient is a 44-year-old white female with past medical history significant for cirrhosis of the liver, alcohol induced, abdominal ascites requiring frequent paracentesis, UTI with VRE. She is very debilitated, and has had frequent hospitalizations since January of this year, mostly due to complications due to her liver disease. Of note, recently discharged home from this facility May 16, she was apparently admitted for fluid overload and lower extremity cellulitis. Patient returns to the emergency department 05/24/2024 with a chief complaint of abdominal pain. Denies fevers. She does undergo frequent paracentesis. She has positive fluid balance, and severe lower extremity edema. Admits 20 pound weight gain since her hospital discharge on May 16. Yesterday, underwent large-volume paracentesis, total of 11L was removed. Following this she became hypotensive and patient was transferred to the intensive care unit. She did receive 50 g of 25% albumin. She also was noted to have some dark tarry stools that started yesterday. Hemoglobin has been trending down, most recent 7 g/dL. She is receiving 1 unit PRBCs at the moment. She does have history of GI bleeding. Most recent EGD done February 19, 2024 showing a small antral gastric ulcer with no active bleeding and small distal esophageal varices. Patient currently being evaluated in the ICU, she is alert and oriented. Continues to have dark tarry stools. Fecal occult positive. Blood pressure slightly hypotensive currently 86/46 mmHg. She is receiving a unit of PRBCs at the moment. Normal saline continues at 150 mL/h. Patient did receive an additional 1 L fluid bolus earlier. May require vasopressors if she remains hypotensive. Fluid status appears positive. Urine output is adequate, around 50 to 100 cc/h. Patient denies any urinary symptoms at this time, no burning/dysuria, no hematuria, no urinary frequency. On her recent previous hospital discharge, her Lasix was discontinued. She has significant lower extremity swelling, her legs are wrapped with Theo bandages. Most recent CBC from yesterday: WBC count 15.1, hemoglobin 7, hematocrit 22, platelets 86. CMP from yesterday: Sodium 127, potassium 3.1, chloride 99, serum bicarb 22, BUN 41, creatinine 1.31, glucose 100. Urinalysis was sent. LFTs mildly elevated. Patient has been started on empiric Rocephin for possible SBP. If blood pressure remains hypotensive, may require vasopressors Seen today on 05/27/2024, remains in the ICU, her EGD yesterday showed 1 cm varices, no active bleeding. Patient is on room air, does not seem to be in any distress, she is however hypotensive still requiring midodrine and requiring norepinephrine at 0.04 mcg/kg/min. Nephrology saw the patient, and trying to give the patient intermittent doses of albumin followed by Lasix, patient is developing worsening ascites and worsening fluid retention. Not receiving any IV fluids at this point, and did not require any further blood transfusion. She only had 1 unit of packed RBCs since she came into the ICU. WBC count today is 11.4 hemoglobin is 8.6 INR is 1.8 electrolytes are normal BUN is 30 creatinine 1.16 Patient was seen today on 05/28/2024, remains in the ICU, still requiring a small dose of norepinephrine at 0.03 mcg/kg/min developing ascites again, hemoglobin is stable at 7.9. Patient did not improve much with albumin Lasix yesterday as recommended by nephrology, continues to build up significant amount of fluids in her abdomen. She is supposedly scheduled to have repeat paracentesis on Thursday next week. WBC count is 8.5 hemoglobin 7.9. Electrolytes are normal potassium is 3.2 BUN is 23 creatinine 1.13. Patient was seen on 05/29/24, patient is doing well, remains in the ICU, she is off norepinephrine at this point.Patient is hemodynamically stable, her CBC is unremarkable, hemoglobin is holding at 7.8, patient received only 1 unit of packed RBCs since admission to the ICU electrolytes are noted sodium is 130 potassium 4.4 bicarb is 16 BUN is 18 creatinine 1.18. Patient is developing worsening ascites, now she is losing from the previous site of paracentesis in the right lower quadrant area. A collecting ostomy bag has been placed over the site. No cough no wheezing no shortness of breath, patient is on room air. Will receiving Lasix 40 mg IV push every 12 hours remains on Rocephin. My plan today is to transfer the patient out of the ICU to a medical surgical bed The patient is seen today May 30, 2024 in follow-up on the regular medical floor. She was transferred out of the ICU yesterday. She is currently resting comfortably in bed. Awake and alert in no acute distress. Maintaining O2 saturations in the 90s on room air. She is status post 1 unit of packed red blood cells this admission. Current hemoglobin 7.8. Ascites fluid cultures were negative. Urine culture negative. Blood culture showing no growth. She is continued on ceftriaxone. She remains on DuoNeb and elations, Symbicort. Remains on IV diuretics. Currently in a -1.3 L balance. The patient is seen today May 31, 2024 in follow-up on the regular medical floor. She is currently resting comfortably in bed. Awake and alert in no acute distress. She is still having ongoing issues with abdominal distention. Paracentesis to be formed while inpatient. He is status post 1 unit of packed red blood cells this admission. 05/25/2024 paracentesis fluid cultures revealed no growth. Urine culture no growth. Blood cultures no growth. White count 8.9. Hemoglobin 8.2. Platelets 71,000. Sodium 134. Potassium 4.0. Bicarb 19. BUN 16. Creatinine 1.4. Glucose 101. Albumin 2.3. She is continued on DuoNeb and elations, Symbicort. Remains on antibiotics in the form of ceftriaxone. The patient is seen today June 01, 2024 in follow-up on the regular medical floor. She is awake and alert in no acute distress. Resting fairly comfortably in bed. She did undergo a paracentesis yesterday with 8.3 L of fluid removed. She is continued on Lasix drip at 5 mg/h. She is maintaining good O2 saturations in the 90s on room air. Blood, urine and ascites fluid cultures all revealed no growth. Sodium 136. Potassium 3.2. Bicarb 21. BUN 14. Creatinine 1.3. Glucose 99. She is currently in a -1 L balance. She remains on DuoNeb ventilations, Symbicort. Antibiotics in the form of ceftriaxone. The patient is seen today June 02, 2024 in follow-up on the regular medical floor. She is sitting up in bed. Awake and alert in no acute distress. Denies any worsening shortness of breath, cough or congestion. She is maintaining O2 saturations in the 90s on room air. She is continued on a Lasix drip at 5 mg/h. She did undergo paracentesis yesterday. She is scheduled for an outpatient paracentesis on June 10, 2024. Sodium 130. Potassium 3.4. Bicarb 21. BUN 15. Creatinine 1.26. Glucose 87. Remains on DuoNeb inhalations and Symbicort. The patient is seen today June 03, 2024 in follow-up on the regular medical floor. She is awake and alert in no acute distress. She denies any worsening shortness of breath, cough or congestion. She is maintaining good O2 saturations in the 90s on room air. She has been afebrile. Hemodynamically stable. Ascites fluid cultures revealed no growth. Urine and blood cultures revealed no growth. Sodium 137. Potassium 4.1. Bicarb 21. BUN 17. Creatinine 1.6. She remains on a Lasix drip at 5 mg/h. Continued on DuoNeb inhalations, Symbicort. Currently in a -600 mL balance. The patient is seen today June 04, 2024 in follow-up on the regular medical floor. She is resting comfortably in bed. Awake and alert in no acute distres s. Maintaining good O2 saturations in the 90s on room air. No IV fluids. Her Lasix drip has been discontinued. She remains on Symbicort, DuoNeb inhalations. Continued on IV diuretics. Antibiotics in the form of Omnicef. Objective - Vital Signs Vital signs: Vital Signs Temp 98.2 F 06/04/24 07:40 Pulse 100 06/04/24 07:40 Resp 18 06/04/24 07:40 BP 112/55 06/04/24 07:40 Pulse Ox 94 L 06/04/24 07:40 FiO2 Intake & Output 06/03/24 06/04/24 06/04/24 18:59 06:59 18:59 Intake Total 360 320 Output Total 275 600 Balance 85 -280 Weight 120 kg Intake: Oral 360 320 Output: Urine 275 600 Other: Voiding Method Indwelling Catheter Indwelling Catheter # Bowel Movements 1 - Exam GENERAL EXAM: Alert, pleasant 44-year-old female, on room air, in no apparent distress. HEAD: Normocephalic. EYES: Normal reaction of pupils, equal size. NOSE: Clear with pink turbinates. THROAT: No erythema or exudates. NECK: No masses, no JVD. CHEST: No chest wall deformity. LUNGS: Equal air entry with no crackles, wheeze, rhonchi or dullness. CVS: S1 and S2 normal with no audible murmur, regular rhythm. ABDOMEN: Abdominal distention. No hepatosplenomegaly, normal bowel sounds, no guarding or rigidity. SPINE: No scoliosis or deformity SKIN: No rashes CENTRAL NERVOUS SYSTEM: No focal deficits, tone is normal in all 4 extremities. EXTREMITIES: There is no peripheral edema. No clubbing, no cyanosis. Peripheral pulses are intact. - Labs CBC & Chem 7: 05/31/24 05:33 06/03/24 06:03 Labs: Abnormal Lab Results - Last 24 Hours (Table) 06/03/24 Range/Units 06:03 Carbon Dioxide 20.7 L (21.6-31.8) mmol/L Creatinine 1.6 H (0.6-1.5) mg/dL Est GFR (CKD-EPI) 41 L (>=60) BUN/Creatinine Ratio 10.44 L (12.00-20.00) Ratio Calcium 7.9 L (8.7-10.3) mg/dL Assessment and Plan Assessment: Acute upper GI bleed, patient's having multiple melanotic stools, status post 1 unit of packed RBCs. Current hemoglobin 8.2 Abdominal ascites, status post large-volume paracentesis on 05/25/2024, total of 11 L was removed. Another paracentesis performed 05/31/2024 with 8.3 L removed Hypotension, recovered Abdominal pain, improved Acute leukocytosis History of liver cirrhosis, secondary to chronic alcohol use History of GI bleed, gastric ulcer, and small esophageal varices; last EGD done 02/19/24 Hypervolemic hyponatremia, sodium 130 Severe hypokalemia, being replaced per protocol, improved, currently 4.1 History of UTI/VRE History of recent cholecystectomy History of COPD History of bipolar disorder History of chronic thrombocytopenia Chronic kidney disease, secondary to hepatorenal syndrome History of alcoholism, last reported drink > 6 months ago Plan: The patient was seen and evaluated Medications reviewed Lasix drip discontinued Currently on Lasix 40 mg IV every 12 hours Currently stable and on room air Home once cleared by nephrology This patient was seen independently by the pulmonary nurse practitioner addressing pulmonary issues I have personally seen and examined the patient, performed the documentation and the assessment and plan as written. Number of minutes spent on the visit: 23 Dictation was produced using [employer] software. Please excuse any grammatical, word or spelling errors.
--- NOTE | 2024-06-04 12:16 | P.PN ---
Subjective Progress Note Date: 06/04/24 Patient is seen for follow-up for volume overload and history of hyponatremia. Off Lasix drip and edema continues to improve. Hoping to get paracentesis Thursday. Patient is awake, comfortable, no acute distress. Examination of the heart S1 and S2 Examination of the lungs bilateral breath sounds are heard Abdomen is soft nontender obese, ascites Examination of lower extremity shows edema 2+ bilaterally, legs are wrapped. POLICY MANAGER exam grossly intact Objective - Vital Signs Vital signs: Vital Signs Temp 98.2 F 06/04/24 07:40 Pulse 80 06/04/24 09:03 Resp 18 06/04/24 07:40 BP 112/55 06/04/24 07:40 Pulse Ox 94 L 06/04/24 07:40 FiO2 Intake & Output 06/03/24 06/04/24 06/04/24 18:59 06:59 18:59 Intake Total 360 320 Output Total 275 600 Balance 85 -280 Weight 120 kg Intake: Oral 360 320 Output: Urine 275 600 Other: Voiding Method Indwelling Catheter Indwelling Catheter Indwelling Catheter # Bowel Movements 1 - Labs CBC & Chem 7: 05/31/24 05:33 06/03/24 06:03 Assessment and Plan Assessment: 1. Chronic kidney disease stage IIIa with baseline creatinine 1.3-1.5 secondary to hepatorenal syndrome. GFR at baseline. 2. Hypervolemic hyponatremia. Improved. 3. Anemia status post blood transfusion this admission. EGD done this admission showed distal esophageal varices and reflux esophagitis. Iron replete. 4. Volume overload with ascites status post paracentesis 5. Liver cirrhosis secondary to EtOH abuse 6. Hypokalemia from diuresis. Replaced. Better. 7. Metabolic acidosis secondary to chronic kidney disease and compensation for underlying respiratory alkalosis from cirrhosis. Plan: Continue IV push Lasix Continue with oral sodium bicarb Repeat labs in a.m.
--- NOTE | 2024-06-04 14:02 | PN ---
PROGRESS NOTE SUBJECTIVE: A 44-year-old white female, hepatorenal syndrome. Her BUN and creatinine are 16, 1.6. GFR is 41. Sodium 137, potassium 4.1. OBJECTIVE: CARDIOVASCULAR: S1, S2. LUNGS: Transmitted upper sounds. GI: Soft. VITAL SIGNS: Temp 98.2, respiratory rate 16 to 18. CARDIOVASCULAR: S1, S2. LUNGS: Transmitted upper sounds. PLAN: Continue current treatment. Standard breathing treatments, oxygen. Continue on Lasix as tolerated. Possibly go home soon. Please see further orders with any paracentesis will need to be done prior to going home or not. Prognosis guarded. MMODL / IJN: [id number] /
--- NOTE | 2024-06-04 14:58 | P.PN ---
Subjective Progress Note Date: 06/04/24 Principal diagnosis: Reason for follow-up is leukocytosis and lower extremity cellulitis Patient is a 44-year-old female with a past medical history significant for cirrhosis of the liver bipolar recurrent admission to the hospital for ascites and lower extremity cellulitis patient was brought into the hospital concerning for increasing swelling to the abdomen as well as lower extremity patient did have elevated white count prompted this consultation. On today's evaluation that is 06/04/2024, Patient is afebrile patient is currently on room air and denies having any shortness of breath, the patient denies any chest pain or cough, the patient denies any nausea vomiting did not have any abdominal pain and no diarrhea denies pain to the lower extremity. No new lab has been obtained today Objective - Vital Signs Vital signs: Vital Signs Temp 98.2 F 06/04/24 07:40 Pulse 78 06/04/24 12:24 Resp 18 06/04/24 07:40 BP 112/55 06/04/24 07:40 Pulse Ox 94 L 06/04/24 07:40 FiO2 Intake & Output 06/03/24 06/04/24 06/04/24 18:59 06:59 18:59 Intake Total 360 320 Output Total 275 600 Balance 85 -280 Weight 120 kg Intake: Oral 360 320 Output: Urine 275 600 Other: Voiding Method Indwelling Catheter Indwelling Catheter Indwelling Catheter # Bowel Movements 1 - Exam GENERAL DESCRIPTION: Middle-age female lying in bed in no distress RESPIRATORY SYSTEM: Unlabored breathing , decreased breath sounds at bases HEART: S1 S2 regular rate and rhythm , ABDOMEN: Soft , no tenderness EXTREMITIES: Bilateral legs are currently wrapped in Theo wrap did have some drainage of the right foot wound but patient mention overall wound is looking better at the time of dressing changes - Labs CBC & Chem 7: 05/31/24 05:33 06/03/24 06:03 Assessment and Plan (1) Bilateral lower leg cellulitis Current Visit: Yes Status: Acute Code(s): L03.116 - CELLULITIS OF LEFT LOWER LIMB; L03.115 - CELLULITIS OF RIGHT LOWER LIMB SNOMED Code(s): 316272942 (2) Wound of right foot Current Visit: Yes Status: Acute Code(s): S91.301A - UNSPECIFIED OPEN WOUND, RIGHT FOOT, INITIAL ENCOUNTER SNOMED Code(s): 780086129 (3) Leukocytosis Current Visit: Yes Status: Acute Code(s): D72.829 - ELEVATED WHITE BLOOD CELL COUNT, UNSPECIFIED SNOMED Code(s): 950088139 Plan: 1patient with a leukocytosis in this patient who did have a cirrhosis of the liver now presented to the hospital with increasing abdominal distention but no significant tenderness clinically not behaving as SBP but not entirely excluded patient did have bilateral lower extremity swelling and redness and complaint of cellulitis likely etiology of this elevated white count 2-local wound care to the right foot wound with the Medihoney followed by moist dressing change daily 3-patient patient is afebrile white count has normalized culture has been negative for any resistant pathogen 4-patient has completed course of Rocephin currently on a short course of oral Omnicef and can do local wound care as ordered Dictation was produced using [employer] dictation software. please excuse any grammatical, word or spelling errors. Time with Patient: Less than 30
--- NOTE | 2024-06-05 08:09 | P.PN ---
Subjective Progress Note Date: 06/05/24 Patient is a 44-year-old white female with past medical history significant for cirrhosis of the liver, alcohol induced, abdominal ascites requiring frequent paracentesis, UTI with VRE. She is very debilitated, and has had frequent hospitalizations since January of this year, mostly due to complications due to her liver disease. Of note, recently discharged home from this facility May 16, she was apparently admitted for fluid overload and lower extremity cellulitis. Patient returns to the emergency department 05/24/2024 with a chief complaint of abdominal pain. Denies fevers. She does undergo frequent paracentesis. She has positive fluid balance, and severe lower extremity edema. Admits 20 pound weight gain since her hospital discharge on May 16. Yesterday, underwent large-volume paracentesis, total of 11L was removed. Following this she became hypotensive and patient was transferred to the intensive care unit. She did receive 50 g of 25% albumin. She also was noted to have some dark tarry stools that started yesterday. Hemoglobin has been trending down, most recent 7 g/dL. She is receiving 1 unit PRBCs at the moment. She does have history of GI bleeding. Most recent EGD done February 19, 2024 showing a small antral gastric ulcer with no active bleeding and small distal esophageal varices. Patient currently being evaluated in the ICU, she is alert and oriented. Continues to have dark tarry stools. Fecal occult positive. Blood pressure slightly hypotensive currently 86/46 mmHg. She is receiving a unit of PRBCs at the moment. Normal saline continues at 150 mL/h. Patient did receive an additional 1 L fluid bolus earlier. May require vasopressors if she remains hypotensive. Fluid status appears positive. Urine output is adequate, around 50 to 100 cc/h. Patient denies any urinary symptoms at this time, no burning/dysuria, no hematuria, no urinary frequency. On her recent previous hospital discharge, her Lasix was discontinued. She has significant lower extremity swelling, her legs are wrapped with Theo bandages. Most recent CBC from yesterday: WBC count 15.1, hemoglobin 7, hematocrit 22, platelets 86. CMP from yesterday: Sodium 127, potassium 3.1, chloride 99, serum bicarb 22, BUN 41, creatinine 1.31, glucose 100. Urinalysis was sent. LFTs mildly elevated. Patient has been started on empiric Rocephin for possible SBP. If blood pressure remains hypotensive, may require vasopressors Seen today on 05/27/2024, remains in the ICU, her EGD yesterday showed 1 cm varices, no active bleeding. Patient is on room air, does not seem to be in any distress, she is however hypotensive still requiring midodrine and requiring norepinephrine at 0.04 mcg/kg/min. Nephrology saw the patient, and trying to give the patient intermittent doses of albumin followed by Lasix, patient is developing worsening ascites and worsening fluid retention. Not receiving any IV fluids at this point, and did not require any further blood transfusion. She only had 1 unit of packed RBCs since she came into the ICU. WBC count today is 11.4 hemoglobin is 8.6 INR is 1.8 electrolytes are normal BUN is 30 creatinine 1.16 Patient was seen today on 05/28/2024, remains in the ICU, still requiring a small dose of norepinephrine at 0.03 mcg/kg/min developing ascites again, hemoglobin is stable at 7.9. Patient did not improve much with albumin Lasix yesterday as recommended by nephrology, continues to build up significant amount of fluids in her abdomen. She is supposedly scheduled to have repeat paracentesis on Thursday next week. WBC count is 8.5 hemoglobin 7.9. Electrolytes are normal potassium is 3.2 BUN is 23 creatinine 1.13. Patient was seen on 05/29/24, patient is doing well, remains in the ICU, she is off norepinephrine at this point.Patient is hemodynamically stable, her CBC is unremarkable, hemoglobin is holding at 7.8, patient received only 1 unit of packed RBCs since admission to the ICU electrolytes are noted sodium is 130 potassium 4.4 bicarb is 16 BUN is 18 creatinine 1.18. Patient is developing worsening ascites, now she is losing from the previous site of paracentesis in the right lower quadrant area. A collecting ostomy bag has been placed over the site. No cough no wheezing no shortness of breath, patient is on room air. Will receiving Lasix 40 mg IV push every 12 hours remains on Rocephin. My plan today is to transfer the patient out of the ICU to a medical surgical bed The patient is seen today May 30, 2024 in follow-up on the regular medical floor. She was transferred out of the ICU yesterday. She is currently resting comfortably in bed. Awake and alert in no acute distress. Maintaining O2 saturations in the 90s on room air. She is status post 1 unit of packed red blood cells this admission. Current hemoglobin 7.8. Ascites fluid cultures were negative. Urine culture negative. Blood culture showing no growth. She is continued on ceftriaxone. She remains on DuoNeb and elations, Symbicort. Remains on IV diuretics. Currently in a -1.3 L balance. The patient is seen today May 31, 2024 in follow-up on the regular medical floor. She is currently resting comfortably in bed. Awake and alert in no acute distress. She is still having ongoing issues with abdominal distention. Paracentesis to be formed while inpatient. He is status post 1 unit of packed red blood cells this admission. 05/25/2024 paracentesis fluid cultures revealed no growth. Urine culture no growth. Blood cultures no growth. White count 8.9. Hemoglobin 8.2. Platelets 71,000. Sodium 134. Potassium 4.0. Bicarb 19. BUN 16. Creatinine 1.4. Glucose 101. Albumin 2.3. She is continued on DuoNeb and elations, Symbicort. Remains on antibiotics in the form of ceftriaxone. The patient is seen today June 01, 2024 in follow-up on the regular medical floor. She is awake and alert in no acute distress. Resting fairly comfortably in bed. She did undergo a paracentesis yesterday with 8.3 L of fluid removed. She is continued on Lasix drip at 5 mg/h. She is maintaining good O2 saturations in the 90s on room air. Blood, urine and ascites fluid cultures all revealed no growth. Sodium 136. Potassium 3.2. Bicarb 21. BUN 14. Creatinine 1.3. Glucose 99. She is currently in a -1 L balance. She remains on DuoNeb ventilations, Symbicort. Antibiotics in the form of ceftriaxone. The patient is seen today June 02, 2024 in follow-up on the regular medical floor. She is sitting up in bed. Awake and alert in no acute distress. Denies any worsening shortness of breath, cough or congestion. She is maintaining O2 saturations in the 90s on room air. She is continued on a Lasix drip at 5 mg/h. She did undergo paracentesis yesterday. She is scheduled for an outpatient paracentesis on June 10, 2024. Sodium 130. Potassium 3.4. Bicarb 21. BUN 15. Creatinine 1.26. Glucose 87. Remains on DuoNeb inhalations and Symbicort. The patient is seen today June 03, 2024 in follow-up on the regular medical floor. She is awake and alert in no acute distress. She denies any worsening shortness of breath, cough or congestion. She is maintaining good O2 saturations in the 90s on room air. She has been afebrile. Hemodynamically stable. Ascites fluid cultures revealed no growth. Urine and blood cultures revealed no growth. Sodium 137. Potassium 4.1. Bicarb 21. BUN 17. Creatinine 1.6. She remains on a Lasix drip at 5 mg/h. Continued on DuoNeb inhalations, Symbicort. Currently in a -600 mL balance. The patient is seen today June 04, 2024 in follow-up on the regular medical floor. She is resting comfortably in bed. Awake and alert in no acute distres s. Maintaining good O2 saturations in the 90s on room air. No IV fluids. Her Lasix drip has been discontinued. She remains on Symbicort, DuoNeb inhalations. Continued on IV diuretics. Antibiotics in the form of Omnicef. The patient is seen today June 05, 2024 in follow-up on the regular medical floor. She is currently sitting up in bed. Awake and alert in no acute distress. Maintaining good O2 saturations in the 90s on room air. She denies any worsening shortness of breath, cough or congestion. She is continued on DuoNeb and elations, Symbicort. Antibiotics in the form of Omnicef. She remains on IV diuretics. She is status post 1 unit of packed red blood cells this admission. Most recent hemoglobin was 8.2. Objective - Vital Signs Vital signs: Vital Signs Temp 98.1 F 06/05/24 07:31 Pulse 88 06/05/24 07:31 Resp 18 06/05/24 07:31 BP 109/63 06/05/24 07:31 Pulse Ox 92 L 06/05/24 07:31 FiO2 Intake & Output 06/04/24 06/05/24 06/05/24 19:59 06:59 18:59 Intake Total Output Total Balance Weight Intake: Oral Output: Drainage Left Abdomen Urine Other: Voiding Method - Exam GENERAL EXAM: Alert, 44-year-old female, sitting up in bed, on room air, in no apparent distress. HEAD: Normocephalic. EYES: Normal reaction of pupils, equal size. NOSE: Clear with pink turbinates. THROAT: No erythema or exudates. NECK: No masses, no JVD. CHEST: No chest wall deformity. LUNGS: Equal air entry with no crackles, wheeze, rhonchi or dullness. CVS: S1 and S2 normal with no audible murmur, regular rhythm. ABDOMEN: Abdominal distention. No hepatosplenomegaly, normal bowel sounds, no guarding or rigidity. SPINE: No scoliosis or deformity SKIN: No rashes CENTRAL NERVOUS SYSTEM: No focal deficits, tone is normal in all 4 extremities. EXTREMITIES: There is no peripheral edema. No clubbing, no cyanosis. Peripheral pulses are intact. - Labs CBC & Chem 7: 05/31/24 05:33 06/03/24 06:03 Assessment and Plan Assessment: Acute upper GI bleed, patient's having multiple melanotic stools, status post 1 unit of packed RBCs. Current hemoglobin 8.2. Initially seen in the intensive care unit Abdominal ascites, status post large-volume paracentesis on 05/25/2024, total of 11 L was removed. Another paracentesis performed 05/31/2024 with 8.3 L removed Hypotension, recovered Abdominal pain, improved Acute leukocytosis History of liver cirrhosis, secondary to chronic alcohol use History of GI bleed, gastric ulcer, and small esophageal varices; last EGD done 02/19/24 Hypervolemic hyponatremia, sodium 130 Severe hypokalemia, being replaced per protocol, improved, currently 4.1 History of UTI/VRE History of recent cholecystectomy History of COPD History of bipolar disorder History of chronic thrombocytopenia Chronic kidney disease, secondary to hepatorenal syndrome History of alcoholism, last reported drink > 6 months ago Plan: The patient was seen and evaluated Medications reviewed Remains on IV Lasix per nephrology Currently stable and on room air This patient was seen independently by the pulmonary nurse practitioner addressing pulmonary issues I have personally seen and examined the patient, performed the documentation and the assessment and plan as written. Number of minutes spent on the visit: 24 Dictation was produced using [employer] software. Please excuse any grammatical, word or spelling errors.
--- NOTE | 2024-06-05 11:15 | P.PN ---
Subjective Progress Note Date: 06/05/24 Patient is seen for follow-up for volume overload and history of hyponatremia. Off Lasix drip and edema continues to improve. Hoping to get paracentesis Thursday. Patient is awake, comfortable, no acute distress. Examination of the heart S1 and S2 Examination of the lungs bilateral breath sounds are heard Abdomen is soft nontender obese, ascites Examination of lower extremity shows edema 2+ bilaterally, legs are wrapped. NIP WRAPPER exam grossly intact Objective - Vital Signs Vital signs: Vital Signs Temp 98.1 F 06/05/24 07:31 Pulse 85 06/05/24 08:19 Resp 18 06/05/24 07:31 BP 109/63 06/05/24 07:31 Pulse Ox 92 L 06/05/24 07:31 FiO2 Intake & Output 06/04/24 06/05/24 06/05/24 19:59 06:59 18:59 Intake Total 480 Output Total Balance 480 Weight Intake: Oral 480 Output: Drainage Left Abdomen Urine Other: Voiding Method Indwelling Catheter - Labs CBC & Chem 7: 05/31/24 05:33 06/03/24 06:03 Assessment and Plan Assessment: 1. Chronic kidney disease stage IIIa with baseline creatinine 1.3-1.5 secondary to hepatorenal syndrome. GFR at baseline. 2. Hypervolemic hyponatremia. Improved. 3. Anemia status post blood transfusion this admission. EGD done this admission showed distal esophageal varices and reflux esophagitis. Iron replete. 4. Volume overload with ascites status post paracentesis 5. Liver cirrhosis secondary to EtOH abuse 6. Hypokalemia from diuresis. Replaced. Better. 7. Metabolic acidosis secondary to chronic kidney disease and compensation for underlying respiratory alkalosis from cirrhosis. Plan: Continue IV push Lasix Continue with oral sodium bicarb Repeat labs today
--- NOTE | 2024-06-05 15:03 | P.PN ---
Subjective Progress Note Date: 06/05/24 Principal diagnosis: Reason for follow-up is leukocytosis and lower extremity cellulitis Patient is a 44-year-old female with a past medical history significant for cirrhosis of the liver bipolar recurrent admission to the hospital for ascites and lower extremity cellulitis patient was brought into the hospital concerning for increasing swelling to the abdomen as well as lower extremity patient did have elevated white count prompted this consultation. On today's evaluation that is 06/05/2024, patient has been afebrile, patient is breathing comfortably and is currently on room air, patient denies having any significant cough no chest pain, patient denies nausea vomiting or diarrhea and no abdominal pain denies pain to the lower extremity. Patient did have a creatinine 1.6 Objective - Vital Signs Vital signs: Vital Signs Temp 98.1 F 06/05/24 07:31 Pulse 85 06/05/24 08:19 Resp 18 06/05/24 07:31 BP 109/63 06/05/24 07:31 Pulse Ox 92 L 06/05/24 07:31 FiO2 Intake & Output 06/04/24 06/05/24 06/05/24 19:59 06:59 18:59 Intake Total 480 Output Total Balance 480 Weight Intake: Oral 480 Output: Drainage Left Abdomen Urine Other: Voiding Method Indwelling Catheter - Exam GENERAL DESCRIPTION: Middle-age female lying in bed in no distress RESPIRATORY SYSTEM: Unlabored breathing , decreased breath sounds at bases HEART: S1 S2 regular rate and rhythm , ABDOMEN: Soft , no tenderness EXTREMITIES: Bilateral legs are currently wrapped in Theo wrap did have some drainage of the right foot wound but patient mention overall wound is looking better at the time of dressing changes - Labs CBC & Chem 7: 05/31/24 05:33 06/03/24 06:03 Assessment and Plan (1) Bilateral lower leg cellulitis Current Visit: Yes Status: Acute Code(s): L03.116 - CELLULITIS OF LEFT LOWER LIMB; L03.115 - CELLULITIS OF RIGHT LOWER LIMB SNOMED Code(s): 357777468 (2) Wound of right foot Current Visit: Yes Status: Acute Code(s): S91.301A - UNSPECIFIED OPEN WOUND, RIGHT FOOT, INITIAL ENCOUNTER SNOMED Code(s): 299014710 (3) Leukocytosis Current Visit: Yes Status: Acute Code(s): D72.829 - ELEVATED WHITE BLOOD CELL COUNT, UNSPECIFIED SNOMED Code(s): 778431322 Plan: 1patient with a leukocytosis in this patient who did have a cirrhosis of the liver now presented to the hospital with increasing abdominal distention but no significant tenderness clinically not behaving as SBP but not entirely excluded patient did have bilateral lower extremity swelling and redness and complaint of cellulitis likely etiology of this elevated white count 2-local wound care to the right foot wound with the Medihoney followed by moist dressing change daily 3-patient patient is afebrile white count has normalized culture has been negative for any resistant pathogen 4-patient to continue with oral Omnicef and can do local wound care as ordered Dictation was produced using [employer] dictation software. please excuse any grammatical, word or spelling errors. Time with Patient: Less than 30
[2024-06-05 17:05] LABS: BUN/Creat Ratio 12.65 Ratio (12.00-20.00); Blood Urea Nitrogen 21.5 mg/dL (9.0-27.0); Calcium 8.3 mg/dL (8.7-10.3); Carbon Dioxide 21.7 mmol/L (21.6-31.8); Chloride 103 mmol/L (96-109); Glucose 108 mg/dL (70-110); Potassium 4.8 mmol/L (3.5-5.5); Sodium 136 mmol/L (135-145)
--- NOTE | 2024-06-06 00:54 | PN ---
PROGRESS NOTE SUBJECTIVE: A 44-year-old white female, who is on broad-spectrum antibiotics, breathing treatments, Farxiga, IV iron, Lasix, Neurontin, midodrine, norepinephrine. OBJECTIVE: VITAL SIGNS: Temperature 98.6, pulse 96, respiratory rate 16 to 18, blood pressure is 123/56, O2 of 97% on room air, up from 92%. She is going to be scheduled for paracentesis tomorrow and possibly get her out of the hospital as she has been here a long time and she continues to improve. She is also since admission. 2 to 3+ edema in the hospital. Prognosis is guarded. Continue current treatment. Monitor renal function. Possibly discharge home on steroids too after thoracentesis. Prognosis guarded. IAZBELA / ROXYN: [id number] /
[2024-06-06 08:22] LABS: Basophils # (A) 0.05 X 10*3/uL (0.00-0.10); Basophils % (A) 0.7 %; Eosinophils % (A) 9.4 %; HCT 25.3 % (37.2-46.3); HGB 8.4 g/dL (12.0-15.0); Lymphocytes # (A) 1.94 X 10*3/uL (0.90-5.00); Lymphocytes % (A) 26.2 %; MCH 33.1 pg (27.0-32.0); MCHC 33.2 g/dL (32.0-37.0); MCV 99.6 FL (80.0-97.0); Mean Platelet Volume 12.7 FL (9.5-12.2); Monocytes # (A) 0.88 X 10*3/uL (0.20-1.00); Monocytes % (A) 11.9 %; NRBC Per 100 WBC 0 X 10*3/uL (0.00-0.01); Neutrophils % (A) 49.9 %; Platelet Count 133 X 10*3/uL (140-440); RBC 2.54 X 10*6/uL (4.10-5.20); RDW 23.4 % (11.5-14.5); WBC 7.41 X 10*3/uL (4.50-10.00)
[2024-06-06 08:59] LABS: ALT 12 U/L (8-44); AST 25 U/L (13-35); Albumin 2.3 g/dL (3.8-4.9); Albumin/Globulin Ratio 1.28 Ratio (1.60-3.17); Alkaline Phosphatase 217 U/L (41-126); BUN/Creat Ratio 13.41 Ratio (12.00-20.00); Blood Urea Nitrogen 22.8 mg/dL (9.0-27.0); Calcium 8.3 mg/dL (8.7-10.3); Carbon Dioxide 20.8 mmol/L (21.6-31.8); Chloride 102 mmol/L (96-109); Globulin 1.8 g/dL (1.6-3.3); Glucose 97 mg/dL (70-110); Potassium 5.3 mmol/L (3.5-5.5); Sodium 133 mmol/L (135-145); Total Bilirubin 1.4 mg/dL (0.3-1.2); Total Protein 4.1 g/dL (6.2-8.2)
[2024-06-06] MEDS: ALBUMIN HUMAN 25% 50 ML in EMPTY BAG 1 BAG IVPB SCH ×2 (09:31→15:04)
--- NOTE | 2024-06-06 11:02 | P.PN ---
Subjective Patient is seen in follow-up for chronic kidney disease. Renal function stable. On IV Lasix and Farxiga. Paracentesis pending. Vital signs are stable. General: No acute distress. HEENT: Head exam is unremarkable. LUNGS: No audible rhonchi or wheezes. HEART: Rate and Rhythm are regular. ABDOMEN: Distention noted. Nontender. EXTREMITITES: 2+ edema. Objective - Vital Signs Vital signs: Vital Signs Temp 97.7 F 06/06/24 07:30 Pulse 90 06/06/24 08:59 Resp 18 06/06/24 07:30 BP 105/59 06/06/24 07:30 Pulse Ox 94 L 06/06/24 07:30 FiO2 Intake & Output 06/05/24 06/06/24 06/06/24 18:59 06:59 18:59 Intake Total 720 740 Output Total 800 550 Balance -80 190 Weight 109.5 kg Intake: Oral 720 740 Output: Drainage 50 Left Abdomen 50 Urine 800 500 Other: Voiding Method Indwelling Catheter Indwelling Catheter Indwelling Catheter # Voids 0 # Bowel Movements 1 - Labs CBC & Chem 7: 06/06/24 04:38 06/06/24 04:38 Labs: Abnormal Lab Results - Last 24 Hours (Table) 06/05/24 06/06/24 06/06/24 Range/Units 10:19 04:38 04:38 RBC 2.54 L (4.10-5.20) X 10*6/uL Hgb 8.4 L (12.0-15.0) g/dL Hct 25.3 L (37.2-46.3) % MCV 99.6 H (80.0-97.0) FL MCH 33.1 H (27.0-32.0) pg RDW 23.4 H (11.5-14.5) % Plt Count 133 L (140-440) X 10*3/uL MPV 12.7 H (9.5-12.2) FL Immature Gran # 0.14 H (0.00-0.04) X 10*3/uL Eosinophils # 0.70 H (0.04-0.35) X 10*3/uL Sodium 133 L (135-145) mmol/L Carbon Dioxide 20.8 L (21.6-31.8) mmol/L Creatinine 1.7 H 1.7 H (0.6-1.5) mg/dL Est GFR (CKD-EPI) 38 L 38 L (>=60) Calcium 8.3 L 8.3 L (8.7-10.3) mg/dL Total Bilirubin 1.4 H (0.3-1.2) mg/dL Alkaline Phosphatase 217 H (41-126) U/L Total Protein 4.1 L (6.2-8.2) g/dL Albumin 2.3 L (3.8-4.9) g/dL Albumin/Globulin Ratio 1.28 L (1.60-3.17) Ratio Assessment and Plan Plan: Assessment: 1. Chronic kidney disease stage IIIa with baseline creatinine 1.3-1.5 secondary to hepatorenal syndrome. GFR little below baseline from diuresis. 2. Hypervolemic hyponatremia. 3. Anemia status post blood transfusion this admission. EGD showed distal esophageal varices and reflux esophagitis. Iron replete. 4. Volume overload with ascites status post paracentesis with 11 L drained May 25, 2024 and 8.3 L drained May 31, 2024. 5. Liver cirrhosis. 6. Hypokalemia from diuresis. Replaced. Improved. 7. Metabolic acidosis secondary to chronic kidney disease and compensation for underlying respiratory alkalosis from cirrhosis. Stable. Plan: Low-salt diet and 1200 cc fluid restriction. Maintain IV Lasix. Maintain spironolactone 25 mg twice daily. DC potassium supplementation. Continue to monitor renal function and urine output. Avoid nephrotoxins. Paracentesis pending. IV albumin will be given pre and post paracentesis.
--- NOTE | 2024-06-06 12:09 | P.PN ---
Subjective Progress Note Date: 06/06/24 Principal diagnosis: Liver cirrhosis, GI bleed This a pleasant 44-year-old female who presented to the emergency department for abdominal distention and abdominal pain. Patient has had multiple hospitalizations recently. She was just hospitalized and discharged last week Thursday. During that hospitalization she was seen by gastroenterology for liver cirrhosis and ascites. She has had hyponatremia and has been followed by nephrology. She was discharged home states that she was not taking her lactulose, she was not taking any diuretics and she did not make any of her fo llow-up appointments with gastroenterology or nephrology. Patient's was diagnosed with alcohol induced liver cirrhosis about a year ago. She reportedly has not drank for about 10 months now. She had undergone cholecystectomy and underwent that on 03/21/[address] Corrigan and was hospitalized and discharged on 04/08/2024 following some reported complications following surgery. She had an upper endoscopy done 02/19/2024 with findings of antral ulcer, small distal esophageal varices with no stigmata of recent bleeding, and mild to moderate gastritis. Currently she is not on any diuretics. Gastroenterology was consulted for cirrhosis. She has leukocytosis on admission. Admitting labs WBC 20.2 hemoglobin 10.4 platelet count 112,000 INR 1.5 sodium 128 potassium 3.5 BUN 25 creatinine 1.16 total bilirubin 3.5 AST 46 ALT 18 alkaline phosphatase 218 ammonia 96 amylase less than 30 lipase 127 She denies any fevers or chills, states she came in because of abdominal distention. She still has some leaking from previous surgical site. 05/26/2024 Patient seen and examined in the ICU. She was transferred from the floor yesterday after becoming hypotensive status post her paracentesis with 11 L of fluid removed. Patient also started having black stools throughout the night. Hemoglobin was 7.2 this morning. Potassium and yesterday evening was 2.6 potassium was replaced with repeat potassium at 3.0. BUN 40 creatinine 1.2 patient is very lethargic. 05/27/2024 Patient seen and examined today as a follow-up. Yesterday she underwent upper endoscopy without any active bleeding noted. EGD revealed small distal esophageal varices with no stigmata of active bleeding, erosions in distal esophagus consistent with LA grade B reflux esophagitis no gastric varices and a small hiatal hernia. Patient denies any abdominal pain, nausea or vomiting. No further blood in her stools. Patient is much more alert today. Hemoglobin is stable at 8.6 platelet count 56,000 INR 1.8 sodium 130 potassium 3.8 BUN 30 creatinine 1.16 total bilirubin 1.9 AST 32 ALT 14 alkaline phosphatase 174 06/06/2024 There was no GI present in the hospital last week. We are back seeing patient as she is still hospitalized since previous consultation on 05/25/2024. She has been followed by infectious disease and nephrology. Hyponatremia has improved. She is scheduled to undergo paracentesis today. Her last paracentesis was on 06/01/2024 with 8.3 L removed. She is currently on Lasix 40 mg IV every 12 hours and spironolactone 25 mg twice daily. She denies any abdominal pain, nausea or vomiting. No fevers or chills. Tentative plan is for discharge today or tomorrow. Objective - Vital Signs Vital signs: Vital Signs Temp 97.7 F 06/06/24 07:30 Pulse 90 06/06/24 08:59 Resp 18 06/06/24 07:30 BP 105/59 06/06/24 07:30 Pulse Ox 94 L 06/06/24 07:30 FiO2 Intake & Output 06/05/24 06/06/24 06/06/24 18:59 06:59 18:59 Intake Total 720 740 Output Total 800 550 Balance -80 190 Weight 109.5 kg Intake: Oral 720 740 Output: Drainage 50 Left Abdomen 50 Urine 800 500 Other: Voiding Method Indwelling Catheter Indwelling Catheter # Voids 0 # Bowel Movements 1 - Exam General appearance: The patient is l alert and oriented x 3. Appears in no acute distress. HET: Head is normocephalic and atraumatic. Conjunctiva pink. Sclera anicteric. Neck: Supple without lymphadenopathy. Abdomen: Soft, distended with ascites. Multiple old surgical incision sites. Left-sided abdomen with ostomy bag with scant amount of clear ascites. Extremities: Normal skin color and turgor. Lower extremity edema. Skin: No rashes, no jaundice Neurological: Patient is alert and oriented x 3. - Labs CBC & Chem 7: 06/06/24 04:38 06/06/24 04:38 Labs: Abnormal Lab Results - Last 24 Hours (Table) 06/05/24 06/06/24 06/06/24 Range/Units 10:19 04:38 04:38 RBC 2.54 L (4.10-5.20) X 10*6/uL Hgb 8.4 L (12.0-15.0) g/dL Hct 25.3 L (37.2-46.3) % MCV 99.6 H (80.0-97.0) FL MCH 33.1 H (27.0-32.0) pg RDW 23.4 H (11.5-14.5) % Plt Count 133 L (140-440) X 10*3/uL MPV 12.7 H (9.5-12.2) FL Immature Gran # 0.14 H (0.00-0.04) X 10*3/uL Eosinophils # 0.70 H (0.04-0.35) X 10*3/uL Sodium 133 L (135-145) mmol/L Carbon Dioxide 20.8 L (21.6-31.8) mmol/L Creatinine 1.7 H 1.7 H (0.6-1.5) mg/dL Est GFR (CKD-EPI) 38 L 38 L (>=60) Calcium 8.3 L 8.3 L (8.7-10.3) mg/dL Total Bilirubin 1.4 H (0.3-1.2) mg/dL Alkaline Phosphatase 217 H (41-126) U/L Total Protein 4.1 L (6.2-8.2) g/dL Albumin 2.3 L (3.8-4.9) g/dL Albumin/Globulin Ratio 1.28 L (1.60-3.17) Ratio Assessment and Plan (1) Alcoholic cirrhosis of liver with ascites Narrative/Plan: 44-year-old female well-known to gastroenterology with multiple hospitalizations for alcoholic cirrhosis of the liver with ascites. She has been hyponatremic on previous hospitalizations. States she was told by her PCP not to take diuretics on discharge. She was not taking any diuretics, not taking her lactulose as she did not pickle cutter her medication and returned with abdominal distention with elevated ammonia level. Patient is with decompensated cirrhosis of the liver. She has not had any outpatient follow-up with specialist. She is presenting with leukocytosis and need to suspect possible spontaneous bacterial peritonitis. Paracentesis ordered, will get cell count and fluid cultures. Will start IV antibiotics. Current Visit: Yes Status: Acute Code(s): K70.31 - ALCOHOLIC CIRRHOSIS OF LIVER WITH ASCITES SNOMED Code(s): 846931030 (2) Leukocytosis Narrative/Plan: Resolved Current Visit: Yes Status: Acute Code(s): D72.829 - ELEVATED WHITE BLOOD CELL COUNT, UNSPECIFIED SNOMED Code(s): 230180999 (3) Swelling of lower extremity Narrative/Plan: Improving Current Visit: Yes Status: Acute Code(s): M79.89 - OTHER SPECIFIED SOFT TISSUE DISORDERS SNOMED Code(s): 177754553 (4) Thrombocytopenia Narrative/Plan: Secondary to liver disease Current Visit: Yes Status: Acute Code(s): D69.6 - THROMBOCYTOPENIA, UNSPECIFIED SNOMED Code(s): 920271691 (5) Anemia Narrative/Plan: No GI bleed. Likely secondary to liver disease Current Visit: No Status: Acute Code(s): D64.9 - ANEMIA, UNSPECIFIED SNOMED Code(s): 392851827 (6) Hyponatremia Current Visit: No Status: Acute Code(s): E87.1 - HYPO-OSMOLALITY AND HYPO NATREMIA SNOMED Code(s): 06903067 (7) Melena Narrative/Plan: Melena now resolved. Patient status post EGD without any active bleeding noted. Small esophageal varices with no stigmata for bleeding. Erosive esophagitis, small hiatal hernia no gastric varices. Current Visit: No Status: Acute Code(s): K92.1 - MELENA SNOMED Code(s): 2605175 Plan: 1. Continue symptomatic and supportive care 2. Diuretics per nephrology 3. Protonix 40 mg twice daily 4. Continue Xifaxan 5. Continue lactulose 30 g 3 times daily, titrate to have 3 bowel movements daily 6. Ascites fluid culture with no growth 7. Recommend outpatient follow-up with gastroenterology next week 8. Patient scheduled for paracentesis today with albumin pre and post paracentesis Thank you for this consultation, patient is cleared from gastroenterology for discharge. Dr. Rachel Cuenca I agree with the dictator's note, documented as a scribe by Katiuska Fan.
--- NOTE | 2024-06-06 12:13 | P.PN ---
Subjective Progress Note Date: 06/06/24 Principal diagnosis: Reason for follow-up is leukocytosis and lower extremity cellulitis Patient is a 44-year-old female with a past medical history significant for cirrhosis of the liver bipolar recurrent admission to the hospital for ascites and lower extremity cellulitis patient was brought into the hospital concerning for increasing swelling to the abdomen as well as lower extremity patient did have elevated white count prompted this consultation. On today's evaluation that is 06/06/2024, Patient is afebrile this morning patient denies having any chest pain shortness of breath or cough, the patient is currently on room air, patient denies any abdominal pain no diarrhea no nausea no vomiting denies pain to lower extremity scheduled for paracentesis today as reported by the nursing staff. Patient white count is 7.4, creatinine is 1.7 Objective - Vital Signs Vital signs: Vital Signs Temp 97.7 F 06/06/24 07:30 Pulse 90 06/06/24 08:59 Resp 18 06/06/24 07:30 BP 105/59 06/06/24 07:30 Pulse Ox 94 L 06/06/24 07:30 FiO2 Intake & Output 06/05/24 06/06/24 06/06/24 18:59 06:59 18:59 Intake Total 720 740 Output Total 800 550 50 Balance -80 190 -50 Weight 109.5 kg Intake: Oral 720 740 Output: Drainage 50 50 Left Abdomen 50 50 Urine 800 500 Other: Voiding Method Indwelling Catheter Indwelling Catheter Indwelling Catheter # Voids 0 # Bowel Movements 1 - Exam GENERAL DESCRIPTION: Middle-age female lying in bed in no distress RESPIRATORY SYSTEM: Unlabored breathing , decreased breath sounds at bases HEART: S1 S2 regular rate and rhythm , ABDOMEN: Soft , no tenderness EXTREMITIES: Bilateral legs are currently wrapped in Theo wrap did have some drainage of the right foot wound but patient mention overall wound is looking better at the time of dressing changes - Labs CBC & Chem 7: 06/06/24 04:38 06/06/24 04:38 Labs: Abnormal Lab Results - Last 24 Hours (Table) 06/05/24 06/06/24 06/06/24 Range/Units 10:19 04:38 04:38 RBC 2.54 L (4.10-5.20) X 10*6/uL Hgb 8.4 L (12.0-15.0) g/dL Hct 25.3 L (37.2-46.3) % MCV 99.6 H (80.0-97.0) FL MCH 33.1 H (27.0-32.0) pg RDW 23.4 H (11.5-14.5) % Plt Count 133 L (140-440) X 10*3/uL MPV 12.7 H (9.5-12.2) FL Immature Gran # 0.14 H (0.00-0.04) X 10*3/uL Eosinophils # 0.70 H (0.04-0.35) X 10*3/uL Sodium 133 L (135-145) mmol/L Carbon Dioxide 20.8 L (21.6-31.8) mmol/L Creatinine 1.7 H 1.7 H (0.6-1.5) mg/dL Est GFR (CKD-EPI) 38 L 38 L (>=60) Calcium 8.3 L 8.3 L (8.7-10.3) mg/dL Total Bilirubin 1.4 H (0.3-1.2) mg/dL Alkaline Phosphatase 217 H (41-126) U/L Total Protein 4.1 L (6.2-8.2) g/dL Albumin 2.3 L (3.8-4.9) g/dL Albumin/Globulin Ratio 1.28 L (1.60-3.17) Ratio Assessment and Plan (1) Bilateral lower leg cellulitis Current Visit: Yes Status: Acute Code(s): L03.116 - CELLULITIS OF LEFT LOWER LIMB; L03.115 - CELLULITIS OF RIGHT LOWER LIMB SNOMED Code(s): 184444853 (2) Wound of right foot Current Visit: Yes Status: Acute Code(s): S91.301A - UNSPECIFIED OPEN WOUND, RIGHT FOOT, INITIAL ENCOUNTER SNOMED Code(s): 422700170 (3) Leukocytosis Current Visit: Yes Status: Acute Code(s): D72.829 - ELEVATED WHITE BLOOD CELL COUNT, UNSPECIFIED SNOMED Code(s): 159095016 Plan: 1patient with a leukocytosis in this patient who did have a cirrhosis of the liver now presented to the hospital with increasing abdominal distention but no significant tenderness clinically not behaving as SBP but not entirely excluded patient did have bilateral lower extremity swelling and redness and complaint of cellulitis likely etiology of this elevated white count 2-local wound care to the right foot wound with the Medihoney followed by moist dressing change daily 3-patient patient is afebrile white count has normalized culture has been negative for any resistant pathogen 4-patient slowly clinical improvement, continue oral Omnicef for short course and local wound care as ordered Dictation was produced using [employer] dictation software. please excuse any grammatical, word or spelling errors. Time with Patient: Less than 30
--- NOTE | 2024-06-06 13:16 | CDI ---
Documentation Clarification Form Date: 06/06/2024 From: Anai Roberts RN CCDS Phone: [phone] Admit Date: 05/24/2024 07:28:00 PM Patient Name: Joanna Bagley Visit Number: [id number] Discharge Date: ATTENTION: The Clinical Documentation Specialists (CDI) and [facility] Coding Staff appreciate your assistance in clarifying documentation. Please respond to the clarification below the line at the bottom and electronically sign. The CDI & [facility] Coding staff will review the response and follow-up if needed. Please note: Queries are made part of the Legal Health Record. If you have any questions, please contact the author of this message via ITS. Doctor/Provider: Luis Alfredo Shields MD: There is documentation of a left buttock pressure injury in the Nutritional Assessment on 05/26, 05/30 and 06/02. Additional clarification is requested. History/Risk Factors: 44-year-old female with a history of liver failure, cirrhosis, CKD, COPD who presents for paracentesis for acute on chronic cirrhosis and ascites, right foot wound and extremity edema Clinical Indicators: 05/24 ED Nurse Assessment: "Skin, Buttock, pressure injury" 05/24 Nursing Physical Assessment: "Wound to buttocks. Opti foam placed." 05/25 Four Eyes Assessment: Stage II left buttock, top of right foot- Patient states that this is a blister that popped last admission and hasn't healed." 05/26 Nutritional Assessment, Physical Findings: stage I pressure injury to left buttocks" 05/30 Nutritional Assessment, Physical Findings: "stage I pressure injury to left buttocks" 06/02 Nutritional Assessment, Physical Findings: "stage II pressure injury left buttocks" Treatment: Opti foam placed per Nursing Can you please clarify the left buttock pressure injury? [ ] Stage II pressure injury to Left buttock POA [ ] Stage I pressure injury to left buttock POA [ ] Other, please specify [ ] Unable to determine MTDD
--- NOTE | 2024-06-06 14:58 | US ---
EXAMINATION TYPE: US paracentesis abd w/image DATE OF EXAM: 06/06/2024 12:58 PM COMPARISON: None. Previous Paracentesis CLINICAL INDICATION: Female, 44 years old with history of Ascites; , ascites TECHNIQUE/FINDINGS: The procedure was discussed with the patient. The risks, complications, benefits, and alternatives we re discussed and any questions were answered. Informed consent was obtained. The patient was placed s upine on the ultrasound table and prepped and draped in the usual sterile fashion. All elements of maximal barrier technique were utilized. Under ultrasound guidance, access into the right lower quadrant was obtained, via the paracentesis catheter system and direct ultrasound guidanc e. Approximately 8 liters of straw-colored fluid was removed. The patient was stable throughout the proc edure and remained stable upon discharge from Department of Radiology. IMPRESSION: Successful paracentesis under ultrasound guidance. [facility] Ike Oliver, , 06/06/2024 2:55 PM
--- NOTE | 2024-06-06 17:02 | P.PN ---
Subjective Progress Note Date: 06/06/24 Patient is a 44-year-old white female with past medical history significant for cirrhosis of the liver, alcohol induced, abdominal ascites requiring frequent paracentesis, UTI with VRE. She is very debilitated, and has had frequent hospitalizations since January of this year, mostly due to complications due to her liver disease. Of note, recently discharged home from this facility May 16, she was apparently admitted for fluid overload and lower extremity cellulitis. Patient returns to the emergency department 05/24/2024 with a chief complaint of abdominal pain. Denies fevers. She does undergo frequent paracentesis. She has positive fluid balance, and severe lower extremity edema. Admits 20 pound weight gain since her hospital discharge on May 16. Yesterday, underwent large-volume paracentesis, total of 11L was removed. Following this she became hypotensive and patient was transferred to the intensive care unit. She did receive 50 g of 25% albumin. She also was noted to have some dark tarry stools that started yesterday. Hemoglobin has been trending down, most recent 7 g/dL. She is receiving 1 unit PRBCs at the moment. She does have history of GI bleeding. Most recent EGD done February 19, 2024 showing a small antral gastric ulcer with no active bleeding and small distal esophageal varices. Patient currently being evaluated in the ICU, she is alert and oriented. Continues to have dark tarry stools. Fecal occult positive. Blood pressure slightly hypotensive currently 86/46 mmHg. She is receiving a unit of PRBCs at the moment. Normal saline continues at 150 mL/h. Patient did receive an additional 1 L fluid bolus earlier. May require vasopressors if she remains hypotensive. Fluid status appears positive. Urine output is adequate, around 50 to 100 cc/h. Patient denies any urinary symptoms at this time, no burning/dysuria, no hematuria, no urinary frequency. On her recent previous hospital discharge, her Lasix was discontinued. She has significant lower extremity swelling, her legs are wrapped with Theo bandages. Most recent CBC from yesterday: WBC count 15.1, hemoglobin 7, hematocrit 22, platelets 86. CMP from yesterday: Sodium 127, potassium 3.1, chloride 99, serum bicarb 22, BUN 41, creatinine 1.31, glucose 100. Urinalysis was sent. LFTs mildly elevated. Patient has been started on empiric Rocephin for possible SBP. If blood pressure remains hypotensive, may require vasopressors Seen today on 05/27/2024, remains in the ICU, her EGD yesterday showed 1 cm varices, no active bleeding. Patient is on room air, does not seem to be in any distress, she is however hypotensive still requiring midodrine and requiring norepinephrine at 0.04 mcg/kg/min. Nephrology saw the patient, and trying to give the patient intermittent doses of albumin followed by Lasix, patient is developing worsening ascites and worsening fluid retention. Not receiving any IV fluids at this point, and did not require any further blood transfusion. She only had 1 unit of packed RBCs since she came into the ICU. WBC count today is 11.4 hemoglobin is 8.6 INR is 1.8 electrolytes are normal BUN is 30 creatinine 1.16 Patient was seen today on 05/28/2024, remains in the ICU, still requiring a small dose of norepinephrine at 0.03 mcg/kg/min developing ascites again, hemoglobin is stable at 7.9. Patient did not improve much with albumin Lasix yesterday as recommended by nephrology, continues to build up significant amount of fluids in her abdomen. She is supposedly scheduled to have repeat paracentesis on Thursday next week. WBC count is 8.5 hemoglobin 7.9. Electrolytes are normal potassium is 3.2 BUN is 23 creatinine 1.13. Patient was seen on 05/29/24, patient is doing well, remains in the ICU, she is off norepinephrine at this point.Patient is hemodynamically stable, her CBC is unremarkable, hemoglobin is holding at 7.8, patient received only 1 unit of packed RBCs since admission to the ICU electrolytes are noted sodium is 130 potassium 4.4 bicarb is 16 BUN is 18 creatinine 1.18. Patient is developing worsening ascites, now she is losing from the previous site of paracentesis in the right lower quadrant area. A collecting ostomy bag has been placed over the site. No cough no wheezing no shortness of breath, patient is on room air. Will receiving Lasix 40 mg IV push every 12 hours remains on Rocephin. My plan today is to transfer the patient out of the ICU to a medical surgical bed The patient is seen today May 30, 2024 in follow-up on the regular medical floor. She was transferred out of the ICU yesterday. She is currently resting comfortably in bed. Awake and alert in no acute distress. Maintaining O2 saturations in the 90s on room air. She is status post 1 unit of packed red blood cells this admission. Current hemoglobin 7.8. Ascites fluid cultures were negative. Urine culture negative. Blood culture showing no growth. She is continued on ceftriaxone. She remains on DuoNeb and elations, Symbicort. Remains on IV diuretics. Currently in a -1.3 L balance. The patient is seen today May 31, 2024 in follow-up on the regular medical floor. She is currently resting comfortably in bed. Awake and alert in no acute distress. She is still having ongoing issues with abdominal distention. Paracentesis to be formed while inpatient. He is status post 1 unit of packed red blood cells this admission. 05/25/2024 paracentesis fluid cultures revealed no growth. Urine culture no growth. Blood cultures no growth. White count 8.9. Hemoglobin 8.2. Platelets 71,000. Sodium 134. Potassium 4.0. Bicarb 19. BUN 16. Creatinine 1.4. Glucose 101. Albumin 2.3. She is continued on DuoNeb and elations, Symbicort. Remains on antibiotics in the form of ceftriaxone. The patient is seen today June 01, 2024 in follow-up on the regular medical floor. She is awake and alert in no acute distress. Resting fairly comfortably in bed. She did undergo a paracentesis yesterday with 8.3 L of fluid removed. She is continued on Lasix drip at 5 mg/h. She is maintaining good O2 saturations in the 90s on room air. Blood, urine and ascites fluid cultures all revealed no growth. Sodium 136. Potassium 3.2. Bicarb 21. BUN 14. Creatinine 1.3. Glucose 99. She is currently in a -1 L balance. She remains on DuoNeb ventilations, Symbicort. Antibiotics in the form of ceftriaxone. The patient is seen today June 02, 2024 in follow-up on the regular medical floor. She is sitting up in bed. Awake and alert in no acute distress. Denies any worsening shortness of breath, cough or congestion. She is maintaining O2 saturations in the 90s on room air. She is continued on a Lasix drip at 5 mg/h. She did undergo paracentesis yesterday. She is scheduled for an outpatient paracentesis on June 10, 2024. Sodium 130. Potassium 3.4. Bicarb 21. BUN 15. Creatinine 1.26. Glucose 87. Remains on DuoNeb inhalations and Symbicort. The patient is seen today June 03, 2024 in follow-up on the regular medical floor. She is awake and alert in no acute distress. She denies any worsening shortness of breath, cough or congestion. She is maintaining good O2 saturations in the 90s on room air. She has been afebrile. Hemodynamically stable. Ascites fluid cultures revealed no growth. Urine and blood cultures revealed no growth. Sodium 137. Potassium 4.1. Bicarb 21. BUN 17. Creatinine 1.6. She remains on a Lasix drip at 5 mg/h. Continued on DuoNeb inhalations, Symbicort. Currently in a -600 mL balance. The patient is seen today June 04, 2024 in follow-up on the regular medical floor. She is resting comfortably in bed. Awake and alert in no acute distre ss. Maintaining good O2 saturations in the 90s on room air. No IV fluids. Her Lasix drip has been discontinued. She remains on Symbicort, DuoNeb inhalations. Continued on IV diuretics. Antibiotics in the form of Omnicef. The patient is seen today June 05, 2024 in follow-up on the regular medical floor. She is currently sitting up in bed. Awake and alert in no acute distress. Maintaining good O2 saturations in the 90s on room air. She denies any worsening shortness of breath, cough or congestion. She is continued on DuoNeb and elations, Symbicort. Antibiotics in the form of Omnicef. She remains on IV diuretics. She is status post 1 unit of packed red blood cells this admission. Most recent hemoglobin was 8.2. On 06/06/2024, the patient is on room air oxygen with a pulse ox of 99%. She does have abdominal distention. The patient is to undergo another paracentesis today. This was done with ultrasound guidance. This will be a large-volume paracentesis. The white cell count is 7.4 with a hemoglobin of 8.4 and a platelet count of 133. The BUN is at 22 with a creatinine of 1.7. Sodium levels at 133. LFTs are normal with a mild elevation of alkaline phosphatase of 217. Albumin level is at 1.8. The patient is on Symbicort as maintenance, DuoNeb the regiment [id number], and the patient remains on Lasix 40 mg IV every 12 hours. The patient on Aldactone 25 mg p.o. twice a day. The patient is on Xifaxan 550 mg p.o. twice daily. The patient remains on midodrine 10 mg p.o. 4 times daily. The patient is still taking lactulose 20 mg 3 times daily. She is having liquidy bowel movements. The serum ammonia level was down from 96-26. Objective - Vital Signs Vital signs: Vital Signs Temp 97.7 F 06/06/24 07:30 Pulse 90 06/06/24 08:59 Resp 18 06/06/24 07:30 BP 105/59 06/06/24 07:30 Pulse Ox 94 L 06/06/24 07:30 FiO2 Intake & Output 06/05/24 06/06/24 06/06/24 18:59 06:59 18:59 Intake Total 720 740 Output Total 800 550 50 Balance -80 190 -50 Weight 109.5 kg Intake: Oral 720 740 Output: Drainage 50 50 Left Abdomen 50 50 Urine 800 500 Other: Voiding Method Indwelling Catheter Indwelling Catheter Indwelling Catheter # Voids 0 # Bowel Movements 1 - Exam GENERAL EXAM: Alert, 44-year-old female, sitting up in bed, on room air, in no apparent distress. HEAD: Normocephalic. EYES: Normal reaction of pupils, equal size. NOSE: Clear with pink turbinates. THROAT: No erythema or exudates. NECK: No masses, no JVD. CHEST: No chest wall deformity. LUNGS: Equal air entry with no crackles, wheeze, rhonchi or dullness. CVS: S1 and S2 normal with no audible murmur, regular rhythm. ABDOMEN: Abdominal distention. No hepatosplenomegaly, normal bowel sounds, no guarding or rigidity. SPINE: No scoliosis or deformity SKIN: No rashes CENTRAL NERVOUS SYSTEM: No focal deficits, tone is normal in all 4 extremities. EXTREMITIES: There is no peripheral edema. No clubbing, no cyanosis. Peripheral pulses are intact. - Labs CBC & Chem 7: 06/06/24 04:38 06/06/24 04:38 Labs: Abnormal Lab Results - Last 24 Hours (Table) 06/05/24 06/06/24 06/06/24 Range/Units 10:19 04:38 04:38 RBC 2.54 L (4.10-5.20) X 10*6/uL Hgb 8.4 L (12.0-15.0) g/dL Hct 25.3 L (37.2-46.3) % MCV 99.6 H (80.0-97.0) FL MCH 33.1 H (27.0-32.0) pg RDW 23.4 H (11.5-14.5) % Plt Count 133 L (140-440) X 10*3/uL MPV 12.7 H (9.5-12.2) FL Immature Gran # 0.14 H (0.00-0.04) X 10*3/uL Eosinophils # 0.70 H (0.04-0.35) X 10*3/uL Sodium 133 L (135-145) mmol/L Carbon Dioxide 20.8 L (21.6-31.8) mmol/L Creatinine 1.7 H 1.7 H (0.6-1.5) mg/dL Est GFR (CKD-EPI) 38 L 38 L (>=60) Calcium 8.3 L 8.3 L (8.7-10.3) mg/dL Total Bilirubin 1.4 H (0.3-1.2) mg/dL Alkaline Phosphatase 217 H (41-126) U/L Total Protein 4.1 L (6.2-8.2) g/dL Albumin 2.3 L (3.8-4.9) g/dL Albumin/Globulin Ratio 1.28 L (1.60-3.17) Ratio Assessment and Plan Plan: Acute upper GI bleed, patient's having multiple melanotic stools, status post 1 unit of packed RBCs. Hemoglobin is at 8.4 Abdominal ascites, status post large-volume paracentesis on 05/25/2024, total of 11 L was removed. Another paracentesis performed 05/31/2024 with 8.3 L removed, the patient will have another session of paracentesis today Hypotension, recovered Abdominal pain, improved Acute leukocytosis, improved History of liver cirrhosis, secondary to chronic alcohol use History of GI bleed, gastric ulcer, and small esophageal varices; last EGD done 02/19/24 Hypervolemic hyponatremia, sodium level stable above 130 Acute on chronic kidney injury History of UTI/VRE History of recent cholecystectomy History of COPD History of bipolar disorder History of chronic thrombocytopenia Chronic kidney disease, secondary to hepatorenal syndrome History of alcoholism, last reported drink > 6 months ago Plan: Large-volume paracentesis today Remains on IV Lasix per nephrology Continue IV Lasix Continue Aldactone Continue rifaximin mean Continue midodrine Monitor renal function Currently stable and on room air
[2024-06-06] MEDS: FUROSEMIDE 40 MG TAB PO SCH (20:07)
[2024-06-07 07:51] VITALS: RESP 17
[2024-06-07 08:57] LABS: BUN/Creat Ratio 13.25 Ratio (12.00-20.00); Blood Urea Nitrogen 21.2 mg/dL (9.0-27.0); Calcium 8.4 mg/dL (8.7-10.3); Carbon Dioxide 20.8 mmol/L (21.6-31.8); Chloride 103 mmol/L (96-109); Glucose 91 mg/dL (70-110); Magnesium 1.8 mg/dL (1.5-2.4); Potassium 4.7 mmol/L (3.5-5.5); Sodium 133 mmol/L (135-145)
--- NOTE | 2024-06-07 09:15 | P.PN ---
Subjective Progress Note Date: 06/07/24 Principal diagnosis: Liver cirrhosis, GI bleed This a pleasant 44-year-old female who presented to the emergency department for abdominal distention and abdominal pain. Patient has had multiple hospitalizations recently. She was just hospitalized and discharged last week Thursday. During that hospitalization she was seen by gastroenterology for liver cirrhosis and ascites. She has had hyponatremia and has been followed by nephrology. She was discharged home states that she was not taking her lactulose, she was not taking any diuretics and she did not make any of her fo llow-up appointments with gastroenterology or nephrology. Patient's was diagnosed with alcohol induced liver cirrhosis about a year ago. She reportedly has not drank for about 10 months now. She had undergone cholecystectomy and underwent that on 03/21/[address] Corrigan and was hospitalized and discharged on 04/08/2024 following some reported complications following surgery. She had an upper endoscopy done 02/19/2024 with findings of antral ulcer, small distal esophageal varices with no stigmata of recent bleeding, and mild to moderate gastritis. Currently she is not on any diuretics. Gastroenterology was consulted for cirrhosis. She has leukocytosis on admission. Admitting labs WBC 20.2 hemoglobin 10.4 platelet count 112,000 INR 1.5 sodium 128 potassium 3.5 BUN 25 creatinine 1.16 total bilirubin 3.5 AST 46 ALT 18 alkaline phosphatase 218 ammonia 96 amylase less than 30 lipase 127 She denies any fevers or chills, states she came in because of abdominal distention. She still has some leaking from previous surgical site. 05/26/2024 Patient seen and examined in the ICU. She was transferred from the floor yesterday after becoming hypotensive status post her paracentesis with 11 L of fluid removed. Patient also started having black stools throughout the night. Hemoglobin was 7.2 this morning. Potassium and yesterday evening was 2.6 potassium was replaced with repeat potassium at 3.0. BUN 40 creatinine 1.2 patient is very lethargic. 05/27/2024 Patient seen and examined today as a follow-up. Yesterday she underwent upper endoscopy without any active bleeding noted. EGD revealed small distal esophageal varices with no stigmata of active bleeding, erosions in distal esophagus consistent with LA grade B reflux esophagitis no gastric varices and a small hiatal hernia. Patient denies any abdominal pain, nausea or vomiting. No further blood in her stools. Patient is much more alert today. Hemoglobin is stable at 8.6 platelet count 56,000 INR 1.8 sodium 130 potassium 3.8 BUN 30 creatinine 1.16 total bilirubin 1.9 AST 32 ALT 14 alkaline phosphatase 174 06/06/2024 There was no GI present in the hospital last week. We are back seeing patient as she is still hospitalized since previous consultation on 05/25/2024. She has been followed by infectious disease and nephrology. Hyponatremia has improved. She is scheduled to undergo paracentesis today. Her last paracentesis was on 06/01/2024 with 8.3 L removed. She is currently on Lasix 40 mg IV every 12 hours and spironolactone 25 mg twice daily. She denies any abdominal pain, nausea or vomiting. No fevers or chills. Tentative plan is for discharge today or tomorrow. 06/07/2024 Patient is seen and examined today as a follow-up. No acute changes through the night. She had 8 L removed during her paracentesis yesterday. Objective - Vital Signs Vital signs: Vital Signs Temp 97.9 F 06/07/24 07:17 Pulse 90 06/07/24 09:07 Resp 17 06/07/24 07:17 BP 103/55 06/07/24 07:17 Pulse Ox 96 06/07/24 07:17 FiO2 Intake & Output 06/06/24 06/07/24 06/07/24 18:59 06:59 18:59 Intake Total 320 Output Total 9050 1000 Balance -8730 -1000 Weight 117.5 kg Intake: Oral 320 Output: Gastric Drainage 8000 Drainage 50 0 Left Abdomen 50 0 Urine 1000 1000 Other: Voiding Method Indwelling Catheter Indwelling Catheter - Exam General appearance: The patient is l alert and oriented x 3. Appears in no acute distress. HET: Head is normocephalic and atraumatic. Conjunctiva pink. Sclera anicteric. Neck: Supple without lymphadenopathy. Abdomen: Soft, distended with ascites. Multiple old surgical incision sites. Left-sided abdomen with ostomy bag with scant amount of clear ascites. Extremities: Normal skin color and turgor. Lower extremity edema. Skin: No rashes, no jaundice Neurological: Patient is alert and oriented x 3. - Labs CBC & Chem 7: 06/06/24 04:38 06/07/24 05:21 Labs: Abnormal Lab Results - Last 24 Hours (Table) 06/07/24 Range/Units 05:21 Sodium 133 L (135-145) mmol/L Carbon Dioxide 20.8 L (21.6-31.8) mmol/L Creatinine 1.6 H (0.6-1.5) mg/dL Est GFR (CKD-EPI) 41 L (>=60) Calcium 8.4 L (8.7-10.3) mg/dL Assessment and Plan (1) Alcoholic cirrhosis of liver with ascites Narrative/Plan: 44-year-old female well-known to gastroenterology with multiple hospitalizations for alcoholic cirrhosis of the liver with ascites. She has been hyponatremic on previous hospitalizations. States she was told by her PCP not to take diuretics on discharge. She was not taking any diuretics, not taking her lactulose as she did not parts picker her medication and returned with abdominal distention with elevated ammonia level. Patient is with decompensated cirrhosis of the liver. She has not had any outpatient follow-up with specialist. She is presenting with leukocytosis and need to suspect possible spontaneous bacterial peritonitis. Paracentesis ordered, will get cell count and fluid cultures. Will start IV antibiotics. Current Visit: Yes Status: Acute Code(s): K70.31 - ALCOHOLIC CIRRHOSIS OF LIVER WITH ASCITES SNOMED Code(s): 776080109 (2) Leukocytosis Narrative/Plan: Resolved Current Visit: Yes Status: Acute Code(s): D72.829 - ELEVATED WHITE BLOOD CELL COUNT, UNSPECIFIED SNOMED Code(s): 396566542 (3) Swelling of lower extremity Narrative/Plan: Improving Current Visit: Yes Status: Acute Code(s): M79.89 - OTHER SPECIFIED SOFT TISSUE DISORDERS SNOMED Code(s): 437071735 (4) Thrombocytopenia Narrative/Plan: Secondary to liver disease Current Visit: Yes Status: Acute Code(s): D69.6 - THROMBOCYTOPENIA, UNSPECIFIED SNOMED Code(s): 550619199 (5) Anemia Narrative/Plan: No GI bleed. Likely secondary to liver disease Current Visit: No Status: Acute Code(s): D64.9 - ANEMIA, UNSPECIFIED SNOMED Code(s): 151178299 (6) Hyponatremia Current Visit: No Status: Acute Code(s): E87.1 - HYPO-OSMOLALITY AND HYPONATREMIA SNOMED Code(s): 33455695 (7) Melena Narrative/Plan: Melena now resolved. Patient status post EGD without any active bleeding noted. Small esophageal varices with no stigmata for bleeding. Erosive esophagitis, small hiatal hernia no gastric varices. Current Visit: No Status: Acute Code(s): K92.1 - MELENA SNOMED Code(s): 5051387 Plan: 1. Continue symptomatic and supportive care 2. Diuretics per nephrology 3. Protonix 40 mg twice daily 4. Continue Xifaxan 5. Continue lactulose 30 g 3 times daily, titrate to have 3 bowel movements daily 6. Ascites fluid culture with no growth 7. Recommend outpatient follow-up with gastroenterology next week. Appointment scheduled 8. She is status post paracentesis. Next scheduled paracentesis 06/10/2024 according to patient. Thank you for this consultation, patient is cleared from gastroenterology for discharge. We will sign off at this time. Dr. Rachel Cuenca I agree with the dictator's note, documented as a scribe by Katiuska Fan.
--- NOTE | 2024-06-07 10:55 | P.PN ---
Subjective Patient is seen in follow-up for chronic kidney disease. Renal function stable. On IV Lasix and Farxiga. Underwent paracentesis yesterday with 8 L drained. Vital signs are stable. General: No acute distress. HEENT: Head exam is unremarkable. LUNGS: No audible rhonchi or wheezes. HEART: Rate and Rhythm are regular. ABDOMEN: Nontender. EXTREMITITES: 1+ edema. Objective - Vital Signs Vital signs: Vital Signs Temp 97.9 F 06/07/24 07:17 Pulse 90 06/07/24 09:07 Resp 17 06/07/24 07:17 BP 103/55 06/07/24 07:17 Pulse Ox 96 06/07/24 07:17 FiO2 Intake & Output 06/06/24 06/07/24 06/07/24 18:59 06:59 18:59 Intake Total 320 Output Total 9050 1000 Balance -8730 -1000 Weight 117.5 kg Intake: Oral 320 Output: Gastric Drainage 8000 Drainage 50 0 Left Abdomen 50 0 Urine 1000 1000 Other: Voiding Method Indwelling Catheter Indwelling Catheter - Labs CBC & Chem 7: 06/06/24 04:38 06/07/24 05:21 Labs: Abnormal Lab Results - Last 24 Hours (Table) 06/07/24 Range/Units 05:21 Sodium 133 L (135-145) mmol/L Carbon Dioxide 20.8 L (21.6-31.8) mmol/L Creatinine 1.6 H (0.6-1.5) mg/dL Est GFR (CKD-EPI) 41 L (>=60) Calcium 8.4 L (8.7-10.3) mg/dL Assessment and Plan Plan: Assessment: 1. Chronic kidney disease stage IIIa with baseline creatinine 1.3-1.5 secondary to hepatorenal syndrome. GFR stable but little below baseline from diuresis. 2. Hypervolemic hyponatremia. Stable. 3. Anemia status post blood transfusion this admission. EGD showed distal esophageal varices and reflux esophagitis. Iron replete. 4. Volume overload with ascites status post paracentesis with 11 L drained May 25, 2024; 8.3 L drained May 31, 2024; 8 L drained June 06, 2024. 5. Liver cirrhosis. 6. Hypokalemia from diuresis. Replaced. Improved. 7. Metabolic acidosis secondary to chronic kidney disease and compensation for underlying respiratory alkalosis from cirrhosis. Stable. Plan: Low-salt diet and 1200 cc fluid restriction. Maintain Lasix. Changed from IV to oral. Maintain spironolactone 25 mg twice daily. DC'ed potassium supplementation. Maintain midodrine. Continue to monitor renal function and urine output. Avoid nephrotoxins. Add Aranesp. Repeat BMP and magnesium level 2 to 3 days postdischarge. Follow-up outpatient in 1 week.
[2024-06-07] MEDS: DARBEPOETIN ALFA 40 MCG/0.4 ML SYRINGE SQ SCH (11:45)
--- NOTE | 2024-06-07 12:30 | P.PN ---
Subjective Progress Note Date: 06/07/24 Principal diagnosis: Reason for follow-up is leukocytosis and lower extremity cellulitis Patient is a 44-year-old female with a past medical history significant for cirrhosis of the liver bipolar recurrent admission to the hospital for ascites and lower extremity cellulitis patient was brought into the hospital concerning for increasing swelling to the abdomen as well as lower extremity patient did have elevated white count prompted this consultation. On today's evaluation that is 06/07/2024,the patient denies any fever or any chills, patient is breathing comfortably on room air, the patient denies chest pain shortness of breath and no significant cough, patient denies abdominal pain, no nausea vomiting or diarrhea. Patient denies pain to the lower extremit y. Patient did have a white count of 7.4 as of yesterday. Is 1.6 today Objective - Vital Signs Vital signs: Vital Signs Temp 97.9 F 06/07/24 07:17 Pulse 90 06/07/24 09:07 Resp 17 06/07/24 07:17 BP 103/55 06/07/24 07:17 Pulse Ox 96 06/07/24 07:17 FiO2 Intake & Output 06/06/24 06/07/24 06/07/24 18:59 06:59 18:59 Intake Total 320 Output Total 9050 1000 Balance -8730 -1000 Weight 117.5 kg Intake: Oral 320 Output: Gastric Drainage 8000 Drainage 50 0 Left Abdomen 50 0 Urine 1000 1000 Other: Voiding Method Indwelling Catheter Indwelling Catheter - Exam GENERAL DESCRIPTION: Middle-age female lying in bed in no distress RESPIRATORY SYSTEM: Unlabored breathing , decreased breath sounds at bases HEART: S1 S2 regular rate and rhythm , ABDOMEN: Soft , no tenderness EXTREMITIES: Lower extremity swelling has decreased no redness right foot wound did have some slough tissue - Labs CBC & Chem 7: 06/06/24 04:38 06/07/24 05:21 Labs: Abnormal Lab Results - Last 24 Hours (Table) 06/07/24 Range/Units 05:21 Sodium 133 L (135-145) mmol/L Carbon Dioxide 20.8 L (21.6-31.8) mmol/L Creatinine 1.6 H (0.6-1.5) mg/dL Est GFR (CKD-EPI) 41 L (>=60) Calcium 8.4 L (8.7-10.3) mg/dL Assessment and Plan (1) Bilateral lower leg cellulitis Current Visit: Yes Status: Acute Code(s): L03.116 - CELLULITIS OF LEFT LOWER LIMB; L03.115 - CELLULITIS OF RIGHT LOWER LIMB SNOMED Code(s): 614182313 (2) Wound of right foot Current Visit: Yes Status: Acute Code(s): S91.301A - UNSPECIFIED OPEN WOUND, RIGHT FOOT, INITIAL ENCOUNTER SNOMED Code(s): 490892615 (3) Leukocytosis Current Visit: Yes Status: Acute Code(s): D72.829 - ELEVATED WHITE BLOOD CELL COUNT, UNSPECIFIED SNOMED Code(s): 938641349 Plan: 1patient with a leukocytosis in this patient who did have a cirrhosis of the liver now presented to the hospital with increasing abdominal distention but no significant tenderness clinically not behaving as SBP but not entirely excluded patient did have bilateral lower extremity swelling and redness and complaint of cellulitis likely etiology of this elevated white count 2-local wound care to the right foot wound with the Medihoney followed by moist dressing change daily 3-patient patient is afebrile white count has normalized culture has been negative for any resistant pathogen 4-patient to continue oral Omnicef for 7 days on discharge Dictation was produced using [employer] dictation software. please excuse any grammatical, word or spelling errors. Time with Patient: Less than 30
[2024-06-07 14:16] VITALS: BMI 44.4
[2024-06-07 14:54] VITALS: TEMP 98.6
[2024-06-07 15:33] VITALS: PULSE 97
[2024-06-07 15:36] VITALS: BP 96/55
--- NOTE | 2024-06-09 00:50 | PN ---
PROGRESS NOTE Stage II decubitus ulcer of the left buttock. MMODL / IJN: [id number] /
== END 2024-06-07 16:51 | disposition home or self-care (01) | DRG 280 ==
LOC: EC 14:48 → 6NMEDSUR 19:27 → OBSVTOIN 19:28 → 6NMEDSUR 21:01 → 2SICU 05-25 23:05 → 5NMEDONC 05-29 22:33
PROVIDERS: ADMIT Family Medicine; ATTEND Family Medicine
PROC: 0W9G3ZZ Drainage of Peritoneal Cavity, Percutaneous Approach (ICD-10-PCS; principal; 2024-05-25)
PROC: 30273N1 Transfusion of Nonautologous Red Blood Cells into Products of Conception, Circulatory, Percutaneous Approach (ICD-10-PCS; 2024-05-26)
PROC: 0DJ08ZZ Inspection of Upper Intestinal Tract, Via Natural or Artificial Opening Endoscopic (ICD-10-PCS; 2024-05-26)
PROC: 0W9G3ZZ Drainage of Peritoneal Cavity, Percutaneous Approach (ICD-10-PCS; 2024-05-31)
PROC: 0W9G3ZZ Drainage of Peritoneal Cavity, Percutaneous Approach (ICD-10-PCS; 2024-06-06)
DX: K70.31 Alcoholic cirrhosis of liver with ascites (principal); F10.21 Alcohol dependence, in remission; D62 Acute posthemorrhagic anemia; D69.59 Other secondary thrombocytopenia; E66.2 Morbid (severe) obesity with alveolar hypoventilation; Z68.41 Body mass index [BMI] 40.0-44.9, adult; E87.1 Hypo-osmolality and hyponatremia; E87.4 Mixed disorder of acid-base balance; E87.6 Hypokalemia; I13.0 Hypertensive heart and chronic kidney disease with heart failure and stage 1 through stage 4 chronic kidney disease, or unspecified chronic kidney disease; I50.30 Unspecified diastolic (congestive) heart failure; I85.10 Secondary esophageal varices without bleeding; I95.89 Other hypotension; L89.322 Pressure ulcer of left buttock, stage 2; K76.7 Hepatorenal syndrome; K76.6 Portal hypertension; K76.82 Hepatic encephalopathy; L03.116 Cellulitis of left lower limb; L03.115 Cellulitis of right lower limb; J44.9 Chronic obstructive pulmonary disease, unspecified; K21.00 Gastro-esophageal reflux disease with esophagitis, without bleeding; K22.11 Ulcer of esophagus with bleeding; K29.80 Duodenitis without bleeding; K21.9 Gastro-esophageal reflux disease without esophagitis; F41.9 Anxiety disorder, unspecified; F31.9 Bipolar disorder, unspecified; K44.9 Diaphragmatic hernia without obstruction or gangrene; N18.31 Chronic kidney disease, stage 3a; Z79.51 Long term (current) use of inhaled steroids; Z79.84 Long term (current) use of oral hypoglycemic drugs; Z79.899 Other long term (current) drug therapy; Z87.11 Personal history of peptic ulcer disease; Z87.440 Personal history of urinary (tract) infections; Z88.0 Allergy status to penicillin; Z87.891 Personal history of nicotine dependence
CPT/HCPCS: 36415; 43235; 49083; 71046; 74018; 80048; 80053; 81025; 82140; 82150; 82272; 82728; 83540; 83550; 83690; 83735; 83880; 84100; 84132; 85025; 85027; 85610; 85730; 86850; 86900; 86901; 86920; 87040; 87070; 87075; 87086; 87205; 89050; 94640; 94760; 99285

== ENCOUNTER 2024-06-10 08:11 | Day surgery (SDC) | payer OTHER ==
[2024-06-10 09:13] VITALS: RESP 16; TEMP 98.2
[2024-06-10 09:13] LABS: Platelet Count 133 k/uL (150-450)
[2024-06-10 09:14] LABS: INR 1.2 (<1.2)
[2024-06-10 09:28] LABS: African American GFR (CKD) 51 (>60 ml/min/1.73 sqM); Non-African American GFR(CKD) 44 (>60 ml/min/1.73 sqM)
[2024-06-10] MEDS: ALBUMIN HUMAN 25% 50 ML in EMPTY BAG 1 BAG IVPB SCH (09:39)
[2024-06-10 10:29] VITALS: BP 108/66; PULSE 103
--- NOTE | 2024-06-10 11:55 | US ---
EXAMINATION TYPE: US paracentesis abd w/image DATE OF EXAM: 06/10/2024 9:53 AM COMPARISON: None. Previous Paracentesis CLINICAL INDICATION: Female, 44 years old with history of Liver cirrhosis with ascites; , ascites TECHNIQUE/FINDINGS: The procedure was discussed with the patient. The risks, complications, benefits, and alternatives we re discussed and any questions were answered. Informed consent was obtained. The patient was placed s upine on the ultrasound table and prepped and draped in the usual sterile fashion. All elements of maximal barrier technique were utilized. Under ultrasound guidance, access into the right lower quadrant was obtained, via the paracentesis catheter system and direct ultrasound guidanc e. Approximately 4.5 liters of straw-colored fluid was removed. The patient was stable throughout the pr ocedure and remained stable upon discharge from Department of Radiology. IMPRESSION: Successful paracentesis under ultrasound guidance. [facility], , 06/10/2024 11:53 AM
== END 2024-06-10 11:00 | disposition home or self-care (01) ==
LOC: RADPROMAIN 08:11
PROVIDERS: ATTEND Internal Medicine Gastroenterology
DX: K74.60 Unspecified cirrhosis of liver (principal); R18.8 Other ascites
CPT/HCPCS: 82565; 85049; 85610; 36415; 49083; P9047

== ENCOUNTER 2024-06-17 12:29 | Day surgery (SDC) | payer OTHER ==
[2024-06-17 13:16] LABS: Mean Platelet Volume 8.8; Platelet Count 104 k/uL (150-450)
[2024-06-17 13:29] LABS: African American GFR (CKD) 55 (>60 ml/min/1.73 sqM); Non-African American GFR(CKD) 48 (>60 ml/min/1.73 sqM)
[2024-06-17] MEDS: ALBUMIN HUMAN 25% 50 ML in EMPTY BAG 1 BAG IVPB SCH (13:32)
[2024-06-17 13:44] LABS: INR 1.3 (<1.2); Prothrombin Time 13.5 sec (10.0-12.5)
[2024-06-17 13:51] VITALS: TEMP 98.1
[2024-06-17 14:33] VITALS: RESP 16
[2024-06-17 15:25] VITALS: BP 87/52; PULSE 110
--- NOTE | 2024-06-17 15:25 | US ---
EXAMINATION TYPE: US paracentesis abd w/image DATE OF EXAM: 06/17/2024 2:03 PM COMPARISON: prior paracentesis. CLINICAL INDICATION:Female, 44 years old with history of K70.31 ALCOHOLIC CIRRHOSIS OF LIVER WITH ASC ITES, ascites ATTENDING: Dr. Luis E Byrne PROCEDURE: Informed consent was obtained. The risks of the procedure were extensively explained incl uding risk of damage to surrounding bowel with perforation and need for additional procedures. Proced ure was performed in the ultrasound procedure suite. Ultrasound imaging of the abdomen demonstrate as citic fluid. An appropriate access site was localized to the right lower abdomen. Timeout was taken p er protocol. The skin was prepped and draped in the usual sterile fashion and then locally anesthetiz ed with 1% lidocaine. The peritoneal cavity was then accessed via a 5-Occitan one-step needle/cathete r. Approximately 9400 mL of clear straw-colored fluid was obtained. Postprocedural imaging of the a bdomen demonstrate a minimal amount of abdominal fluid. Patient tolerated procedure well without immediate complication. Hemostasis at the procedural site w as obtained with a sterile bandage placed. The patient was monitored in the holding area following th e procedure and was subsequently discharged in stable condition. IMPRESSION: Ultrasound guided paracentesis, with approximately 9400 mL of clear straw-colored fluid drained. No immediate complications were evident. [facility], , 06/17/2024 3:23 PM
== END 2024-06-17 15:15 | disposition home or self-care (01) ==
LOC: RADPROMAIN 12:29
PROVIDERS: ATTEND Internal Medicine Gastroenterology
DX: K70.31 Alcoholic cirrhosis of liver with ascites (principal)
CPT/HCPCS: 82565; 85049; 85610; 49083; P9047

== ENCOUNTER 2024-06-24 12:29 | Day surgery (SDC) | payer OTHER ==
[2024-06-24] MEDS: ALBUMIN HUMAN 25% 50 ML in EMPTY BAG 1 BAG IVPB SCH (13:53)
[2024-06-24 14:04] LABS: Platelet Count 128 k/uL (150-450)
[2024-06-24 14:23] LABS: African American GFR (CKD) 81 (>60 ml/min/1.73 sqM); Non-African American GFR(CKD) 70 (>60 ml/min/1.73 sqM)
[2024-06-24 14:24] VITALS: RESP 18; TEMP 98.4
[2024-06-24 14:35] LABS: Prothrombin Time 12.5 sec (10.0-12.5)
[2024-06-24 14:36] LABS: INR 1.2 (<1.2)
--- NOTE | 2024-06-24 15:06 | US ---
EXAMINATION TYPE: US paracentesis abd w/image DATE OF EXAM: 06/24/2024 2:37 PM COMPARISON: prior paracentesis. CLINICAL INDICATION:Female, 44 years old with history of K70.31 ALCOHOLIC CIRRHOSIS OF LIVER WITH ASC ITES; , ascites ATTENDING: Dr. Luis E Byrne PROCEDURE: Informed consent was obtained. The risks of the procedure were extensively explained incl uding risk of damage to surrounding bowel with perforation and need for additional procedures. Proced ure was performed in the ultrasound procedure suite. Ultrasound imaging of the abdomen demonstrate as citic fluid. An appropriate access site was localized to the right lower abdomen. Timeout was taken p er protocol. The skin was prepped and draped in the usual sterile fashion and then locally anesthetiz ed with 1% lidocaine. The peritoneal cavity was then accessed via a 5-Spanish one-step needle/cathete r. Approximately 9800 mL of clear straw-colored fluid was obtained. Postprocedural imaging of the ab domen demonstrate a minimal amount of abdominal fluid. Patient tolerated procedure well without immediate complication. Hemostasis at the procedural site w as obtained with a sterile bandage placed. The patient was monitored in the holding area following th e procedure and was subsequently discharged in stable condition. IMPRESSION: Ultrasound guided paracentesis, with approximately 9800 mL of clear straw-colored fluid drained. No i mmediate complications were evident. [facility], , 06/24/2024 3:04 PM
[2024-06-24 15:29] VITALS: BP 100/63; PULSE 115
== END 2024-06-24 15:20 | disposition home or self-care (01) ==
LOC: RADPROMAIN 12:29
PROVIDERS: ATTEND Internal Medicine Gastroenterology
DX: K70.31 Alcoholic cirrhosis of liver with ascites (principal)
CPT/HCPCS: 82565; 85049; 85610; 36415; 49083; P9047

== ENCOUNTER 2024-07-01 07:55 | Day surgery (SDC) | payer OTHER ==
[2024-07-01 09:35] LABS: Mean Platelet Volume 11.3; Platelet Count 142 k/uL (150-450)
[2024-07-01 09:42] LABS: African American GFR (CKD) 73 (>60 ml/min/1.73 sqM); Non-African American GFR(CKD) 63 (>60 ml/min/1.73 sqM)
[2024-07-01 09:49] LABS: INR 1.1 (<1.2); Prothrombin Time 11.5 sec (10.0-12.5)
[2024-07-01] MEDS: ALBUMIN HUMAN 25% 50 ML in EMPTY BAG 1 BAG IVPB SCH (10:00)
[2024-07-01 10:19] VITALS: RESP 18; TEMP 97.8
[2024-07-01 11:24] VITALS: BP 124/65; PULSE 84
--- NOTE | 2024-07-01 11:35 | US ---
EXAMINATION TYPE: US paracentesis abd w/image DATE OF EXAM: 07/01/2024 10:13 AM COMPARISON: None. Previous Paracentesis CLINICAL INDICATION: Female, 44 years old with history of K70.31 ALCOHOLIC CIRRHOSIS OF LIVER WITH CITES; , ascites TECHNIQUE/FINDINGS: The procedure was discussed with the patient. The risks, complications, benefits, and alternatives we re discussed and any questions were answered. Informed consent was obtained. The patient was placed s upine on the ultrasound table and prepped and draped in the usual sterile fashion. All elements of maximal barrier technique were utilized. Under ultrasound guidance, access into the right lower quadrant was obtained, via the paracentesis catheter system and direct ultrasound guidanc e. Approximately 6.4 liters of straw-colored fluid was removed. The patient was stable throughout the pr ocedure and remained stable upon discharge from Department of Radiology. IMPRESSION: Successful paracentesis under ultrasound guidance. [facility], , 07/01/2024 11:33 AM
== END 2024-07-01 11:20 | disposition home or self-care (01) ==
LOC: RADPROMAIN 07:55
PROVIDERS: ATTEND Internal Medicine Gastroenterology
DX: K70.31 Alcoholic cirrhosis of liver with ascites (principal)
CPT/HCPCS: 82565; 85049; 85610; 36415; 49083; P9047

== ENCOUNTER 2024-07-08 12:13 | Day surgery (SDC) | payer OTHER ==
[2024-07-08 13:22] LABS: Platelet Count 109 k/uL (150-450)
[2024-07-08 13:27] LABS: INR 1.1 (<1.2)
[2024-07-08] MEDS: ALBUMIN HUMAN 25% 50 ML in EMPTY BAG 1 BAG IVPB SCH (13:35)
[2024-07-08 13:42] LABS: African American GFR (CKD) 72 (>60 ml/min/1.73 sqM); Non-African American GFR(CKD) 63 (>60 ml/min/1.73 sqM)
[2024-07-08 13:48] VITALS: TEMP 98
[2024-07-08 14:01] VITALS: RESP 16
[2024-07-08 14:35] VITALS: PULSE 98
[2024-07-08 14:40] VITALS: BP 108/71
--- NOTE | 2024-07-11 11:22 | US ---
EXAMINATION TYPE: US paracentesis abd w/image DATE OF EXAM: 07/08/2024 1:35 PM COMPARISON: prior paracentesis. CLINICAL INDICATION:Female, 44 years old with history of K70.31 ALCOHOLIC CIRRHOSIS OF LIVER WITH ASC ITES; , ascites ATTENDING: Dr. Luis E Byrne PROCEDURE: Informed consent was obtained. The risks of the procedure were extensively explained incl uding risk of damage to surrounding bowel with perforation and need for additional procedures. Proced ure was performed in the ultrasound procedure suite. Ultrasound imaging of the abdomen demonstrate as citic fluid. An appropriate access site was localized to the right lower abdomen. Timeout was taken p er protocol. The skin was prepped and draped in the usual sterile fashion and then locally anesthetiz ed with 1% lidocaine. The peritoneal cavity was then accessed via a 5-Egyptian one-step needle/cathete r. Approximately 8500 mL of clear straw-colored fluid was obtained. Postprocedural imaging of the ab domen demonstrate a minimal amount of abdominal fluid. Patient tolerated procedure well without immediate complication. Hemostasis at the procedural site w as obtained with a sterile bandage placed. The patient was monitored in the holding area following th e procedure and was subsequently discharged in stable condition. IMPRESSION: Ultrasound guided paracentesis, with approximately 8500 mL of clear straw-colored fluid drained. No i mmediate complications were evident. [facility], , 07/11/2024 11:19 AM
== END 2024-07-08 14:55 | disposition home or self-care (01) ==
LOC: RADPROMAIN 12:13
PROVIDERS: ATTEND Internal Medicine Gastroenterology
DX: K70.31 Alcoholic cirrhosis of liver with ascites (principal)
CPT/HCPCS: 82565; 85049; 85610; 36415; 49083; P9047

== ENCOUNTER 2024-07-15 12:30 | Day surgery (SDC) | payer OTHER ==
[2024-07-15 13:07] LABS: Mean Platelet Volume 8.4; Platelet Count 112 k/uL (150-450)
[2024-07-15 13:16] LABS: African American GFR (CKD) 42 (>60 ml/min/1.73 sqM); Non-African American GFR(CKD) 37 (>60 ml/min/1.73 sqM)
[2024-07-15] MEDS: ALBUMIN HUMAN 25% 50 ML in EMPTY BAG 1 BAG IVPB SCH (13:40)
[2024-07-15 14:09] VITALS: RESP 18; TEMP 97.5
[2024-07-15 14:40] VITALS: PULSE 88
[2024-07-15 15:01] VITALS: BP 101/54
--- NOTE | 2024-07-15 15:49 | US ---
EXAMINATION TYPE: US paracentesis abd w/image DATE OF EXAM: 07/15/2024 2:16 PM COMPARISON: prior paracentesis. CLINICAL INDICATION:Female, 44 years old with history of Cirrhosis; , ascites ATTENDING: Dr. Luis E Byrne PROCEDURE: Informed consent was obtained. The risks of the procedure were extensively explained incl uding risk of damage to surrounding bowel with perforation and need for additional procedures. Proced ure was performed in the ultrasound procedure suite. Ultrasound imaging of the abdomen demonstrate as citic fluid. An appropriate access site was localized to the right lower abdomen. Timeout was taken p er protocol. The skin was prepped and draped in the usual sterile fashion and then locally anesthetiz ed with 1% lidocaine. The peritoneal cavity was then accessed via a 5-[place]ay[place] Islander one-step needle/cathete r. Approximately 9300 mL of clear straw-colored fluid was obtained. Postprocedural imaging of the ab domen demonstrate a minimal amount of abdominal fluid. Patient tolerated procedure well without immediate complication. Hemostasis at the procedural site w as obtained with a sterile bandage placed. The patient was monitored in the holding area following th e procedure and was subsequently discharged in stable condition. IMPRESSION: Ultrasound guided paracentesis, with approximately 9300 mL of clear straw-colored fluid drained. No i mmediate complications were evident. [facility], , 07/15/2024 3:47 PM
== END 2024-07-15 14:55 | disposition home or self-care (01) ==
LOC: RADPROMAIN 12:30
PROVIDERS: ATTEND Internal Medicine Gastroenterology
DX: R18.8 Other ascites (principal); K74.60 Unspecified cirrhosis of liver
CPT/HCPCS: 82565; 85049; 85610; 36415; 49083; P9047

== ENCOUNTER → 2024-07-20 | Outpatient (CLI) | payer OTHER ==
--- NOTE | 2024-07-20 10:11 | US ---
EXAMINATION TYPE: US liver DATE OF EXAM: 07/20/2024 COMPARISON: US(03/27/2024) CLINICAL INDICATION: Female, 44 years old with history of K70.31 ALCHOHOLIC CIRRHOSIS OF LIVER; Pt cu rrently gets a paracentesis every [place] due to distension of her abdomen, pt has known cirrhosis of the liver and is currently experiencing pain due to the distention TECHNIQUE: Grayscale and color Doppler imaging of the right upper quadrant. FINDINGS: EXAM MEASUREMENTS: Liver Length: 18.3 Gallbladder Wall: Surgically absent cm CBD: 0.7m, color Doppler imaging was utilized to isolate the common bile duct for measurement. Right Kidney: 9.2x5.1x5.5cm OFFICE SUPPORT SPECIALIST NOTES: limited exam due to pt being distended and fluid within her abdomen Pancreas: Tail obscured by overlying bowel gas Liver: Heterogeneous course echotexture, slighty nodular, increased attenuation Gallbladder: Surgically absent Evidence for sonographic Cordova's sign: No CBD: wnl Right Kidney: No hydronephrosis or masses seen IMPRESSION: Hepatic nodular contour compatible with cirrhosis. No suspicious masses. Small to moderate abdominal fluid noted. [facility], , 07/20/2024 10:09 AM
[2024-07-20 14:52] LABS: Basophils # (A) 0.11 X 10*3/uL (0.00-0.10); Basophils % (A) 1.2 %; Eosinophils # (A) 1.03 X 10*3/uL (0.04-0.35); Eosinophils % (A) 10.8 %; HCT 34.8 % (37.2-46.3); HGB 11.2 g/dL (12.0-15.0); Lymphocytes # (A) 1.42 X 10*3/uL (0.90-5.00); Lymphocytes % (A) 14.9 %; MCH 32.7 pg (27.0-32.0); MCHC 32.2 g/dL (32.0-37.0); MCV 101.5 FL (80.0-97.0); Monocytes # (A) 0.68 X 10*3/uL (0.20-1.00); Monocytes % (A) 7.1 %; NRBC Per 100 WBC 0 X 10*3/uL (0.00-0.01); Neutrophils # (A) 6.19 X 10*3/uL (1.80-7.70); Platelet Count 153 X 10*3/uL (140-440); RBC 3.43 X 10*6/uL (4.10-5.20); RDW 18.8 % (11.5-14.5); WBC 9.53 X 10*3/uL (4.50-10.00)
[2024-07-20 15:28] LABS: ALT 19 U/L (8-44); AST 42 U/L (13-35); Albumin/Globulin Ratio 1.58 Ratio (1.60-3.17); Alkaline Phosphatase 120 U/L (41-126); BUN/Creat Ratio 14.53 Ratio (12.00-20.00); Blood Urea Nitrogen 21.8 mg/dL (9.0-27.0); Calcium 8.6 mg/dL (8.7-10.3); Carbon Dioxide 21.3 mmol/L (21.6-31.8); Chloride 99 mmol/L (96-109); Globulin 1.9 g/dL (1.6-3.3); Glucose 92 mg/dL (70-110); Potassium 4.8 mmol/L (3.5-5.5); Sodium 131 mmol/L (135-145); Total Bilirubin 0.8 mg/dL (0.3-1.2); Total Protein 4.9 g/dL (6.2-8.2)
== END | disposition home or self-care (01) ==
LOC: RADUSWWP 07:52
PROVIDERS: ATTEND Internal Medicine Gastroenterology
DX: K70.31 Alcoholic cirrhosis of liver with ascites (principal)
CPT/HCPCS: 36415; 76705; 80053; 82105; 85025

== ENCOUNTER 2024-07-22 12:18 | Day surgery (SDC) | payer OTHER ==
[2024-07-22 13:49] LABS: Mean Platelet Volume 8.3; Platelet Count 149 k/uL (150-450)
[2024-07-22] MEDS: ALBUMIN HUMAN 25% 50 ML in EMPTY BAG 1 BAG IVPB SCH (14:20)
[2024-07-22 14:27] VITALS: RESP 18; TEMP 98
[2024-07-22 14:40] LABS: Prothrombin Time 11.2 sec (10.0-12.5)
[2024-07-22 14:53] LABS: African American GFR (CKD) 62 (>60 ml/min/1.73 sqM); Non-African American GFR(CKD) 53 (>60 ml/min/1.73 sqM)
--- NOTE | 2024-07-22 15:02 | US ---
EXAMINATION TYPE: US paracentesis abd w/image DATE OF EXAM: 07/22/2024 2:07 PM COMPARISON: prior paracentesis. CLINICAL INDICATION:Female, 44 years old with history of K70.31 ALCOHOLIC CIRRHOSIS OF LIVER WITH ASC ITES; , ascites ATTENDING: Dr. Luis E Byrne PROCEDURE: Informed consent was obtained. The risks of the procedure were extensively explained incl uding risk of damage to surrounding bowel with perforation and need for additional procedures. Proced ure was performed in the ultrasound procedure suite. Ultrasound imaging of the abdomen demonstrate as citic fluid. An appropriate access site was localized to the right lower abdomen. Timeout was taken p er protocol. The skin was prepped and draped in the usual sterile fashion and then locally anesthetiz ed with 1% lidocaine. The peritoneal cavity was then accessed via a 5-Macedonian one-step needle/cathete r. Approximately 6500 mL of clear straw-colored fluid was obtained. Postprocedural imaging of the a bdomen demonstrate a minimal amount of abdominal fluid. Patient tolerated procedure well without immediate complication. Hemostasis at the procedural site w as obtained with a sterile bandage placed. The patient was monitored in the holding area following th e procedure and was subsequently discharged in stable condition. IMPRESSION: Ultrasound guided paracentesis, with approximately 6500 mL of clear straw-colored fluid drained. No immediate complications were evident. [facility], , 07/22/2024 3:00 PM
[2024-07-22 15:25] VITALS: BP 114/68; PULSE 78
== END 2024-07-22 15:20 | disposition home or self-care (01) ==
LOC: RADPROMAIN 12:18
PROVIDERS: ATTEND Internal Medicine Gastroenterology
DX: K70.31 Alcoholic cirrhosis of liver with ascites (principal)
CPT/HCPCS: 82565; 85049; 85610; 36415; 49083; P9047

== ENCOUNTER 2024-07-29 12:05 | Day surgery (SDC) | payer OTHER ==
[2024-07-29 12:43] VITALS: TEMP 97.9
[2024-07-29 12:44] LABS: Mean Platelet Volume 8.2; Platelet Count 135 k/uL (150-450)
[2024-07-29 12:53] LABS: African American GFR (CKD) 71 (>60 ml/min/1.73 sqM); Non-African American GFR(CKD) 62 (>60 ml/min/1.73 sqM)
[2024-07-29 12:57] VITALS: RESP 18
[2024-07-29 13:04] LABS: INR 1.1 (<1.2); Prothrombin Time 11.6 sec (10.0-12.5)
[2024-07-29] MEDS: ALBUMIN HUMAN 25% 50 ML in EMPTY BAG 1 BAG IVPB SCH (13:04)
--- NOTE | 2024-07-29 13:41 | US ---
EXAMINATION TYPE: US paracentesis abd w/image DATE OF EXAM: 07/29/2024 12:56 PM COMPARISON: None. Previous Paracentesis CLINICAL INDICATION: Female, 44 years old with history of K70.31 ALCOHOLIC CIRRHOSIS OF LIVER WITH CITES; , ascites TECHNIQUE/FINDINGS: The procedure was discussed with the patient. The risks, complications, benefits, and alternatives we re discussed and any questions were answered. Informed consent was obtained. The patient was placed s upine on the ultrasound table and prepped and draped in the usual sterile fashion. All elements of maximal barrier technique were utilized. Under ultrasound guidance, access into the 8 lower quadrant was obtained, via the paracentesis catheter system and direct ultrasound guidance. Approximately 6.5 liters of straw-colored fluid was removed. The patient was stable throughout the pr ocedure and remained stable upon discharge from Department of Radiology. IMPRESSION: Successful paracentesis under ultrasound guidance. [facility], , 07/29/2024 1:39 PM
[2024-07-29 13:50] VITALS: BP 134/70; PULSE 88
== END 2024-07-29 13:45 | disposition home or self-care (01) ==
LOC: RADPROMAIN 12:05
PROVIDERS: ATTEND Internal Medicine Gastroenterology
DX: K70.31 Alcoholic cirrhosis of liver with ascites (principal)
CPT/HCPCS: 82565; 85049; 85610; 36415; 49083; P9047

== ENCOUNTER 2024-08-05 12:24 | Day surgery (SDC) | payer OTHER ==
[~2024-08-05 12:24] MED LIST changes: -ACETAMINOPHEN TAB 500 MG TAB ONE; +ALBUMIN HUMAN 25% 50 ML in EMPTY BAG 1 BAG IVPB SCH; -DEXAMETHASONE SOD PHOSPHATE 4 MG/ML 1 ML VIAL ONE; -ESMOLOL 100 MG/10 ML VIAL ONE; -GLYCOPYRROLATE 0.2 MG/ML 2 ML VIAL ONE; -HEPARIN SODIUM,PORCINE 5,000 UNIT/ML 1 ML VIAL ONE; -HYDROmorphone (PF) 1 MG/ML ONE; -LACTATED RINGERS 1,000 ML BAG ONE; -LIDOCAINE 1% INJ 10MG/ML (20 ML MDV) ONE; -MIDAZOLAM 2 MG/2 ML VIAL ONE; -NEOSTIGMINE 1 MG/ML 10 ML VIAL ONE; -ONDANSETRON 4 MG/2 ML VIAL ONE; -PROPOFOL 10 MG/ML 20 ML VIAL IV ONE; -ROCURONIUM 10 MG/ML (5 ML VIAL) IV ONE; -SODIUM CHLORIDE 0.9% 50 ML BAG IV ONE; -SUCCINYLCHOLINE CHLORIDE 200 MG/10 ML VIAL IV ONE; -ceFAZolin 10 GM VIAL IVPB ONE; -fentaNYL (PF) 50 MCG/ML 2 ML AMP ONE
[2024-08-05 12:51] VITALS: TEMP 98
[2024-08-05 12:57] LABS: Mean Platelet Volume 8.9; Platelet Count 109 k/uL (150-450)
[2024-08-05 13:07] LABS: African American GFR (CKD) 64 (>60 ml/min/1.73 sqM); Non-African American GFR(CKD) 55 (>60 ml/min/1.73 sqM)
[2024-08-05 13:10] LABS: INR 1.1 (<1.2); Prothrombin Time 11.8 sec (10.0-12.5)
[2024-08-05] MEDS: ALBUMIN HUMAN 25% 50 ML in EMPTY BAG 1 BAG IVPB SCH (13:16)
[2024-08-05 14:05] VITALS: BP 111/54; PULSE 77; RESP 16
--- NOTE | 2024-08-05 16:15 | US ---
EXAMINATION TYPE: US paracentesis abd w/image DATE OF EXAM: 08/05/2024 CLINICAL HISTORY: 44-year-old female K70.31 ALCOHOLIC CIRRHOSIS OF LIVER WITH ASCITES, referred for routine weekly outpatient paracentesis The procedure was discussed with the patient. The risks, complications, benefits, and alternatives we re discussed and any questions were answered. Informed consent was obtained. The patient was placed s upine on the ultrasound table and prepped and draped in the usual sterile fashion. All elements of maximal barrier technique were utilized. Ultrasound was utilized to determine the precise skin entry site along the right lower quadrant. A 5 Iranian One-Step catheter and trocar technique was utilized to access the ascites collection under ultrasound guidance. Approximately 7.1 liters of clear, straw-colored fluid was removed. Catheter was removed, hemostasis obtained, and a dressing placed. The patient was stable throughout the procedure and remained stable upon discharge from Department of Radiology. IMPRESSION: Successful therapeutic paracentesis under ultrasound guidance. 7.1 L of fluid removed. [facility], , 08/05/2024 4:13 PM
== END 2024-08-05 14:05 | disposition home or self-care (01) ==
LOC: RADPROMAIN 12:24
PROVIDERS: ATTEND Internal Medicine Gastroenterology
DX: K70.31 Alcoholic cirrhosis of liver with ascites (principal)
CPT/HCPCS: 82565; 85049; 85610; 36415; 49083; P9047

== ENCOUNTER 2024-08-12 12:24 | Day surgery (SDC) | payer OTHER ==
[2024-08-12 13:13] LABS: Mean Platelet Volume 9.4; Platelet Count 105 k/uL (150-450)
[2024-08-12 13:21] LABS: Prothrombin Time 11.4 sec (10.0-12.5)
[2024-08-12 13:23] LABS: African American GFR (CKD) 69 (>60 ml/min/1.73 sqM); Non-African American GFR(CKD) 60 (>60 ml/min/1.73 sqM)
[2024-08-12 13:32] VITALS: RESP 16; TEMP 98
[2024-08-12 14:08] VITALS: PULSE 74
[2024-08-12] MEDS: ALBUMIN HUMAN 25% 50 ML in EMPTY BAG 1 BAG IVPB SCH (14:08)
[2024-08-12 15:42] VITALS: BP 128/74
--- NOTE | 2024-08-13 11:50 | US ---
EXAMINATION TYPE: US paracentesis abd w/image DATE OF EXAM: 08/12/2024 2:18 PM COMPARISON: prior paracentesis. CLINICAL INDICATION:Female, 44 years old with history of K70.31 ALCOHOLIC CIRRHOSIS OF LIVER WITH ASC ITES; , ascites ATTENDING: Dr. Luis E Byrne PROCEDURE: Informed consent was obtained. The risks of the procedure were extensively explained incl uding risk of damage to surrounding bowel with perforation and need for additional procedures. Proced ure was performed in the ultrasound procedure suite. Ultrasound imaging of the abdomen demonstrate as citic fluid. An appropriate access site was localized to the right lower abdomen. Timeout was taken p er protocol. The skin was prepped and draped in the usual sterile fashion and then locally anesthetiz ed with 1% lidocaine. The peritoneal cavity was then accessed via a 5-Guinean one-step needle/cathete r. Approximately 6700 mL of clear straw-colored fluid was obtained. Postprocedural imaging of the ab domen demonstrate a minimal amount of abdominal fluid. Patient tolerated procedure well without immediate complication. Hemostasis at the procedural site w as obtained with a sterile bandage placed. The patient was monitored in the holding area following th e procedure and was subsequently discharged in stable condition. IMPRESSION: Ultrasound guided paracentesis, with approximately 6700 mL of clear straw-colored fluid drained. No i mmediate complications were evident. [facility], , 08/13/2024 11:47 AM
== END 2024-08-12 15:43 | disposition home or self-care (01) ==
LOC: RADPROMAIN 12:24
PROVIDERS: ATTEND Internal Medicine Gastroenterology
DX: K70.31 Alcoholic cirrhosis of liver with ascites (principal)
CPT/HCPCS: 82565; 85049; 85610; 36415; 49083; P9047

== ENCOUNTER 2024-08-19 13:07 | Day surgery (SDC) | payer OTHER ==
[2024-08-19 13:56] LABS: Platelet Count 127 k/uL (150-450)
[2024-08-19 14:07] LABS: African American GFR (CKD) 52 (>60 ml/min/1.73 sqM); Non-African American GFR(CKD) 45 (>60 ml/min/1.73 sqM)
[2024-08-19 14:13] LABS: Prothrombin Time 11.4 sec (10.0-12.5)
[2024-08-19] MEDS: ALBUMIN HUMAN 25% 50 ML in EMPTY BAG 1 BAG IVPB SCH (14:14)
[2024-08-19 14:38] VITALS: RESP 18; TEMP 97.9
[2024-08-19 15:33] VITALS: BP 93/51; PULSE 86
--- NOTE | 2024-08-20 16:40 | US ---
EXAMINATION TYPE: US paracentesis abd w/image DATE OF EXAM: 08/19/2024 COMPARISON: 08/12/2024 prior paracentesis. CLINICAL INDICATION:Female, 44 years old with history of K70.31 ALCOHOLIC CIRRHOSIS OF LIVER WITH ASC ITES; , ascites ATTENDING: Dr. Palacio PROCEDURE: Informed consent was obtained. The risks of the procedure were extensively explained incl uding risk of damage to surrounding bowel with perforation and need for additional procedures. Proced ure was performed in the ultrasound procedure suite. Ultrasound imaging of the abdomen demonstrate ascitic fluid. An appropriate access site was localized to the right lower abdomen. Timeout was taken per protocol. The skin was prepped and draped in the u sual sterile fashion and then locally anesthetized with 1% lidocaine. The peritoneal cavity was then accessed via a 5-Spanish one-step needle/catheter. Approximately 9600 mL of clear straw-colored flui d was obtained. Patient tolerated procedure well without immediate complication. Hemostasis at the procedural site w as obtained with a sterile bandage placed. The patient was monitored in the holding area following th e procedure and was subsequently discharged in stable condition. IMPRESSION: Ultrasound guided therapeutic paracentesis, with approximately 9600 mL of clear straw-colored fluid d rained. No immediate complications were evident. [facility], , 08/20/2024 4:38 PM
== END 2024-08-19 15:25 | disposition home or self-care (01) ==
LOC: RADPROMAIN 13:07
PROVIDERS: ATTEND Internal Medicine Gastroenterology
DX: K70.31 Alcoholic cirrhosis of liver with ascites (principal)
CPT/HCPCS: 82565; 85049; 85610; 49083; P9047

== ENCOUNTER 2024-08-26 12:56 | Day surgery (SDC) | payer OTHER ==
[2024-08-26 13:18] VITALS: RESP 16; TEMP 98.2
[2024-08-26] MEDS: ALBUMIN HUMAN 25% 50 ML in EMPTY BAG 1 BAG IVPB SCH (13:26)
[2024-08-26 13:46] LABS: Prothrombin Time 10.8 sec (10.0-12.5)
[2024-08-26 13:48] LABS: Mean Platelet Volume 9.2
[2024-08-26 13:55] LABS: African American GFR (CKD) 74 (>60 ml/min/1.73 sqM); Non-African American GFR(CKD) 64 (>60 ml/min/1.73 sqM)
[2024-08-26 14:04] LABS: Platelet Count 86 k/uL (150-450)
[2024-08-26 14:26] VITALS: BP 111/71; PULSE 98
--- NOTE | 2024-08-26 16:43 | US ---
EXAMINATION TYPE: US paracentesis abd w/image DATE OF EXAM: 08/26/2024 CLINICAL HISTORY: 44 year-old female liver cirrhosis, referred for routine outpatient paracentesis f or ascites The procedure was discussed with the patient. The risks, complications, benefits, and alternatives we re discussed and any questions were answered. Informed consent was obtained. The patient was placed s upine on the ultrasound table and prepped and draped in the usual sterile fashion. All elements of maximal barrier technique were utilized. Ultrasound was utilized to determine the precise skin entry site along the right lower quadrant. A 5 [place] One-Step catheter and trocar technique was utilized to access the ascites collection under direct ultrasound guidance. Approximately 9.6 liters of clear, straw-colored fluid was removed. Catheter was removed, hemostasis obtained, and a dressing placed. The patient was stable throughout the procedure and remained stable upon discharge from Department of Radiology. IMPRESSION: Successful therapeutic paracentesis under ultrasound guidance. 9.6 L of fluid removed. [facility], , 08/26/2024 4:40 PM
== END 2024-08-26 14:52 | disposition home or self-care (01) ==
LOC: RADPROMAIN 12:56
PROVIDERS: ATTEND Internal Medicine Gastroenterology
DX: K74.60 Unspecified cirrhosis of liver (principal); R18.8 Other ascites
CPT/HCPCS: 82565; 85049; 85610; 36415; 49083; P9047

== ENCOUNTER 2024-09-02 13:07 | Day surgery (SDC) | payer OTHER ==
[2024-09-02 13:46] LABS: Mean Platelet Volume 8.2; Platelet Count 104 k/uL (150-450)
[2024-09-02 13:59] LABS: Prothrombin Time 11.3 sec (10.0-12.5)
[2024-09-02 14:08] LABS: African American GFR (CKD) 67 (>60 ml/min/1.73 sqM); Non-African American GFR(CKD) 58 (>60 ml/min/1.73 sqM)
[2024-09-02] MEDS: ALBUMIN HUMAN 25% 50 ML in EMPTY BAG 1 BAG IVPB SCH (14:14)
[2024-09-02 14:20] VITALS: RESP 18; TEMP 98
--- NOTE | 2024-09-02 15:24 | US ---
EXAMINATION TYPE: US paracentesis abd w/image DATE OF EXAM: 09/02/2024 2:13 PM COMPARISON: prior paracentesis. CLINICAL INDICATION:Female, 44 years old with history of K70.31 ALCOHOLIC CIRRHOSIS OF LIVER WITH ASC ITES; , ascites ATTENDING: Dr. Luis E Byrne PROCEDURE: Informed consent was obtained. The risks of the procedure were extensively explained incl uding risk of damage to surrounding bowel with perforation and need for additional procedures. Proced ure was performed in the ultrasound procedure suite. Ultrasound imaging of the abdomen demonstrate as citic fluid. An appropriate access site was localized to the right lower abdomen. Timeout was taken p er protocol. The skin was prepped and draped in the usual sterile fashion and then locally anesthetiz ed with 1% lidocaine. The peritoneal cavity was then accessed via a 5-New Zealander one-step needle/cathete r. Approximately 12250 mL of clear straw-colored fluid was obtained. Postprocedural imaging of the a bdomen demonstrate a minimal amount of abdominal fluid. Patient tolerated procedure well without immediate complication. Hemostasis at the procedural site w as obtained with a sterile bandage placed. The patient was monitored in the holding area following th e procedure and was subsequently discharged in stable condition. IMPRESSION: Ultrasound guided paracentesis, with approximately 69703 mL of clear straw-colored fluid drained. No immediate complications were evident. [facility], , 09/02/2024 3:22 PM
[2024-09-02 15:46] VITALS: BP 119/58; PULSE 82
== END 2024-09-02 15:20 | disposition home or self-care (01) ==
LOC: RADPROMAIN 13:07
PROVIDERS: ATTEND Internal Medicine Gastroenterology
DX: K70.31 Alcoholic cirrhosis of liver with ascites (principal)
CPT/HCPCS: 82565; 85049; 85610; 36415; 49083; P9047

== ENCOUNTER → 2024-09-23 | Day surgery (SDC) | payer OTHER ==
[2024-09-23 13:03] LABS: African American GFR (CKD) 82 (>60 ml/min/1.73 sqM); Non-African American GFR(CKD) 71 (>60 ml/min/1.73 sqM)
[2024-09-23 13:04] VITALS: RESP 16; TEMP 98
[2024-09-23] MEDS: ALBUMIN HUMAN 25% 50 ML in EMPTY BAG 1 BAG IVPB SCH (13:17)
[2024-09-23 13:44] LABS: Prothrombin Time 11.2 sec (10.0-12.5)
[2024-09-23 14:32] VITALS: BP 121/66; PULSE 98
--- NOTE | 2024-09-23 14:40 | US ---
EXAMINATION TYPE: US paracentesis abd w/image DATE OF EXAM: 09/23/2024 CLINICAL HISTORY: 44-year-old female K70.31, alcoholic cirrhosis of liver, ascites, distention The procedure was discussed with the patient. The risks, complications, benefits, and alternatives we re discussed and any questions were answered. Informed consent was obtained. The patient was placed s upine on the ultrasound table and prepped and draped in the usual sterile fashion. All elements of maximal barrier technique were utilized. Ultrasound was utilized to determine the precise skin entry site along the right lower quadrant. A 5 Kuwaiti One-Step catheter and trocar technique was utilized to access the ascites collection under direct ultrasound guidance. Approximately 5.8 liters of clear, straw-colored fluid was removed. Catheter was removed, hemostasis obtained, and a dressing placed. The patient was stable throughout the procedure and remained stable upon discharge from Department of Radiology. IMPRESSION: Successful therapeutic paracentesis under ultrasound guidance. 5.8 L of fluid removed. [facility], , 09/23/2024 2:38 PM
[2024-09-23 14:58] LABS: Platelet Count 86 k/uL (150-450)
== END ==
LOC: RADPROMAIN 12:06
PROVIDERS: ATTEND Internal Medicine Gastroenterology
DX: R18.8 Other ascites (principal)
CPT/HCPCS: 82565; 85049; 85610; 36415; 49083; P9047

== ENCOUNTER 2024-09-30 12:47 | Day surgery (SDC) | payer OTHER ==
[2024-09-30 13:40] VITALS: RESP 16; TEMP 97.7
[2024-09-30 13:49] LABS: Mean Platelet Volume 8.9
[2024-09-30 13:52] LABS: Platelet Count 98 k/uL (150-450)
[2024-09-30 13:56] LABS: African American GFR (CKD) 84 (>60 ml/min/1.73 sqM); Non-African American GFR(CKD) 73 (>60 ml/min/1.73 sqM)
[2024-09-30 13:57] LABS: Prothrombin Time 10.8 sec (10.0-12.5)
[2024-09-30] MEDS: ALBUMIN HUMAN 25% 50 ML in EMPTY BAG 1 BAG IVPB SCH (13:59)
[2024-09-30] MEDS: ALBUMIN HUMAN 25% 50 ML in EMPTY BAG 1 BAG IVPB ONE (14:16)
[2024-09-30 15:50] VITALS: BP 117/66; PULSE 98
--- NOTE | 2024-09-30 17:08 | US ---
EXAMINATION TYPE: US paracentesis abd w/image DATE OF EXAM: 09/30/2024 3:43 PM COMPARISON: prior paracentesis. CLINICAL INDICATION:Female, 44 years old with history of LIVER CIRRRHOSI; , ascites ATTENDING: Dr. Luis E Byrne PROCEDURE: Informed consent was obtained. The risks of the procedure were extensively explained incl uding risk of damage to surrounding bowel with perforation and need for additional procedures. Proced ure was performed in the ultrasound procedure suite. Ultrasound imaging of the abdomen demonstrate as citic fluid. An appropriate access site was localized to the right lower abdomen. Timeout was taken p er protocol. The skin was prepped and draped in the usual sterile fashion and then locally anesthetiz ed with 1% lidocaine. The peritoneal cavity was then accessed via a 5-Slovak one-step needle/cathete r. Approximately 700 mL of clear straw-colored fluid was obtained. Postprocedural imaging of the abd omen demonstrate a minimal amount of abdominal fluid. Patient tolerated procedure well without immediate complication. Hemostasis at the procedural site w as obtained with a sterile bandage placed. The patient was monitored in the holding area following th e procedure and was subsequently discharged in stable condition. IMPRESSION: Ultrasound guided paracentesis, with approximately 9600mL of clear straw-colored fluid drained. No im mediate complications were evident. [facility], , 09/30/2024 5:05 PM
== END 2024-09-30 15:40 | disposition home or self-care (01) ==
LOC: RADPROMAIN 12:47
PROVIDERS: ATTEND Internal Medicine Gastroenterology
DX: R18.8 Other ascites (principal); K74.60 Unspecified cirrhosis of liver
CPT/HCPCS: 82565; 85049; 85610; 36415; 49083; P9047

== ENCOUNTER 2024-10-07 11:54 | Day surgery (SDC) | payer OTHER ==
[2024-10-07 12:10] VITALS: RESP 12; TEMP 98.3
[2024-10-07 12:35] LABS: Prothrombin Time 11.5 sec (10.0-12.5)
[2024-10-07] MEDS: ALBUMIN HUMAN 25% 50 ML in EMPTY BAG 1 BAG IVPB SCH (12:39)
[2024-10-07 12:40] LABS: African American GFR (CKD) 78 (>60 ml/min/1.73 sqM); Non-African American GFR(CKD) 68 (>60 ml/min/1.73 sqM)
[2024-10-07 12:41] LABS: Mean Platelet Volume 8.8
[2024-10-07 12:44] LABS: Platelet Count 173 k/uL (150-450)
[2024-10-07 13:40] VITALS: BP 112/60; PULSE 87
--- NOTE | 2024-11-07 10:40 | US ---
EXAMINATION TYPE: US paracentesis abd w/image DATE OF EXAM: 10/07/2024 CLINICAL HISTORY: 44-year-old female K70.31, alcoholic cirrhosis of liver with ascites, distention, and discomfort. Weekly outpatient paracentesis. The procedure was discussed with the patient. The risks, complications, benefits, and alternatives we re discussed and any questions were answered. Informed consent was obtained. The patient was placed s upine on the ultrasound table and prepped and draped in the usual sterile fashion. All elements of maximal barrier technique were utilized. Ultrasound was utilized to determine the precise skin entry site along the right lower quadrant. A 5 South African One-Step catheter and trocar technique was utilized to access the ascites collection under direct ultrasound guidance. Approximately 9 liters of clear, straw-colored fluid was removed. Catheter was removed, hemostasis obtained, and a dressing placed. The patient was stable throughout the procedure and remained stable upon discharge from Department of Radiology. IMPRESSION: Successful therapeutic paracentesis under ultrasound guidance. 9 L of fluid removed. [facility], , 11/07/2024 10:38 AM
== END 2024-10-07 13:50 | disposition home or self-care (01) ==
LOC: RADPROMAIN 11:54
PROVIDERS: ATTEND Internal Medicine Gastroenterology
DX: K70.31 Alcoholic cirrhosis of liver with ascites (principal)
CPT/HCPCS: 82565; 85049; 85610; 49083; P9047

== ENCOUNTER 2024-10-14 12:43 | Day surgery (SDC) | payer OTHER ==
[2024-10-14 13:51] LABS: Mean Platelet Volume 9.1; Platelet Count 102 k/uL (150-450)
[2024-10-14 13:53] VITALS: TEMP 98.1
[2024-10-14 13:54] LABS: Prothrombin Time 10.7 sec (10.0-12.5)
[2024-10-14 13:59] LABS: African American GFR (CKD) 70 (>60 ml/min/1.73 sqM); Non-African American GFR(CKD) 60 (>60 ml/min/1.73 sqM)
[2024-10-14] MEDS: ALBUMIN HUMAN 25% 50 ML in EMPTY BAG 1 BAG IVPB SCH (13:59)
[2024-10-14 14:46] VITALS: RESP 16
[2024-10-14 15:59] VITALS: BP 112/62; PULSE 85
--- NOTE | 2024-10-15 14:38 | US ---
EXAMINATION TYPE: US paracentesis abd w/image DATE OF EXAM: 10/14/2024 CLINICAL HISTORY: Coronary matter The procedure was discussed with the patient. The risks, complications, benefits, and alternatives we re discussed and any questions were answered. Informed consent was obtained. The patient was placed s upine on the ultrasound table and prepped and draped in the usual sterile fashion. All elements of maximal barrier technique were utilized. Under ultrasound guidance, access into the right lower quadrant was obtained, via the paracentesis catheter system and direct ultrasound guidanc e. Approximately 10.2 mL of straw-colored fluid was removed. The patient was stable throughout the proce dure and remained stable upon discharge from Department of Radiology. IMPRESSION: Successful therapeutic paracentesis under ultrasound guidance. [facility], , 10/15/2024 2:36 PM
== END 2024-10-14 15:50 ==
LOC: RADPROMAIN 12:43
PROVIDERS: ATTEND Internal Medicine Gastroenterology
DX: R18.8 Other ascites (principal); K74.60 Unspecified cirrhosis of liver
CPT/HCPCS: 82565; 85049; 85610; 36415; 49083; P9047

== ENCOUNTER 2024-10-21 12:49 | Day surgery (SDC) | payer OTHER ==
[2024-10-21 13:36] VITALS: RESP 16; TEMP 98.8
[2024-10-21] MEDS: ALBUMIN HUMAN 25% 50 ML in EMPTY BAG 1 BAG IVPB SCH (13:52)
[2024-10-21 14:03] LABS: Prothrombin Time 11.1 sec (10.0-12.5)
[2024-10-21 14:22] LABS: Basophils % (A) 0 %; Eosinophils # (A) 0.2 k/uL (0-0.7); Eosinophils % (A) 3 %; HCT 36.3 % (34.0-46.0); HGB 11.5 gm/dL (11.4-16.0); Lymphocytes # (A) 0.7 k/uL (1.0-4.8); Lymphocytes % (A) 10 %; MCH 33.6 pg (25.0-35.0); MCHC 31.8 g/dL (31.0-37.0); MCV 105.7 fL (80.0-100.0); Macrocytosis Moderate; Mean Platelet Volume 9.4; Monocytes # (A) 0.4 k/uL (0-1.0); Monocytes % (A) 5 %; Neutrophils # (A) 5.9 k/uL (1.3-7.7); Neutrophils % (A) 80 %; Platelet Count 104 k/uL (150-450); RBC 3.44 m/uL (3.80-5.40); RDW 15.9 % (11.5-15.5); WBC 7.4 k/uL (3.8-10.6)
[2024-10-21 14:31] LABS: ALT 20 U/L (4-34); AST 45 U/L (14-36); African American GFR (CKD) 67 (>60 ml/min/1.73 sqM); Albumin 2.8 g/dL (3.5-5.0); Alkaline Phosphatase 122 U/L (38-126); Anion Gap 7 mmol/L; Blood Urea Nitrogen 19 mg/dL (7-17); Calcium 8.4 mg/dL (8.4-10.2); Carbon Dioxide 22 mmol/L (22-30); Chloride 97 mmol/L (98-107); Glucose 99 mg/dL (74-99); Non-African American GFR(CKD) 58 (>60 ml/min/1.73 sqM); Potassium 3.8 mmol/L (3.5-5.1); Sodium 126 mmol/L (137-145); Total Bilirubin 1.6 mg/dL (0.2-1.3); Total Protein 5.2 g/dL (6.3-8.2)
[2024-10-21 15:19] VITALS: BP 121/78; PULSE 88
--- NOTE | 2024-10-21 15:25 | US ---
EXAMINATION TYPE: US paracentesis abd w/image DATE OF EXAM: October 21, 2024 COMPARISON: October 14, 2024 prior paracentesis. CLINICAL INDICATION:Female, 44 years old with history of LIVER CIRRHOSIS; , ascites ATTENDING: Dr. Palacio PROCEDURE: Informed consent was obtained. The risks of the procedure were extensively explained incl uding risk of damage to surrounding bowel with perforation and need for additional procedures. Procedure was performed in the ultrasound procedure suite. Ultrasound imaging of the abdomen demonstr ate ascitic fluid. An appropriate access site was localized to the right lower abdomen. Timeout was t ak per protocol. The skin was prepped and draped in the usual sterile fashion and then locally anes thetized with 1% lidocaine. The peritoneal cavity was then accessed via a 5-Ethiopian one-step needle/c atheter. Approximately 03425 mL of clear straw-colored fluid was obtained. Patient tolerated procedure well without immediate complication. Hemostasis at the procedural site w as obtained with a sterile bandage placed. The patient was monitored in the holding area following th e procedure and was subsequently discharged in stable condition. IMPRESSION: Ultrasound guided therapeutic paracentesis, with approximately 67824aG of clear straw-colored fluid d rained. No immediate complications were evident. [facility], , 10/21/2024 3:22 PM
== END 2024-10-21 15:00 | disposition home or self-care (01) ==
LOC: RADPROMAIN 12:49
PROVIDERS: ATTEND Internal Medicine Gastroenterology
DX: R18.8 Other ascites (principal); K74.60 Unspecified cirrhosis of liver
CPT/HCPCS: 80053; 85025; 85610; 36415; 49083; P9047

== ENCOUNTER 2024-10-24 09:05 | Emergency (ER) | payer OTHER ==
--- NOTE | 2024-10-24 10:04 | ED ---
Nausea/Vomiting/Diarrhea HPI - General Chief complaint: Nausea/Vomiting/Diarrhea Stated complaint: VOMITING Time Seen by Provider: 10/24/24 10:04 Source: patient, RN notes reviewed, old records reviewed Mode of arrival: ambulatory Limitations: no limitations - History of Present Illness Initial comments: 44-year-old female presented to the ER via EMS for evaluation of dark stool. Patient reports a history of liver cirrhosis and receives weekly paracentesis with . he states her last paracentesis was on 10-21-2024. On Thursday, patient started to notice a sticky dark/black stool. She also reports numerous episodes of vomiting over the weekend which have also been dark in color. Patient does admit to a history of GI bleeds and esophageal varices due to alcohol use and has required blood transfusions in the past. Patient reports she is having a generalized abdominal pressure as well. She has not taken anything for pain at this time. She states she is mildly short of breath and dizzy as well. Patient received 4 mg Zofran by EMS prior to arrival. - Related Data Home Medications Medication Instructions Recorded Confirmed Pantoprazole [Protonix] 40 mg PO DAILY 03/20/23 10/21/24 QUEtiapine [SEROquel] 100 mg PO HS 03/20/23 10/21/24 Gabapentin [Neurontin] 300 mg PO TID 04/16/24 10/21/24 Ipratropium-Albuterol Nebulize 3 ml INHALATION RT-TID 04/16/24 10/21/24 [Duoneb 0.5 mg-3 mg/3 ml Soln] Tiotropium 2.5 Mcg/Puff [Spiriva 1 puff INHALATION RT-DAILY 04/16/24 10/21/24 Respimat 2.5 Mcg] Midodrine HCl [ProAmatine] 10 mg PO QID@06,10,14,18 05/03/24 10/21/24 Furosemide [Lasix] 40 mg PO BID 06/10/24 10/21/24 Potassium Chloride ER [K-Dur 20] 20 meq PO BID 06/10/24 10/21/24 Ferrous Sulfate [Feosol] 325 mg PO DAILY 09/30/24 10/21/24 Previous Rx's Medication Instructions Recorded Budesonide-Formot 160-4.5 Mcg 2 puff INHALATION RT-BID 30 Days 02/24/24 [Symbicort 160-4.5 Mcg Inhaler] #1 each Dapagliflozin Propanediol [Farxiga] 5 mg PO DAILY 90 Days #90 tab 04/08/24 Sodium Bicarbonate Tab 650 mg PO DAILY 90 Days #90 tab 04/08/24 oxyCODONE HCL [OxyIR] 5 mg PO Q6HR PRN 3 Days #10 tab 04/28/24 Magnesium Oxide [Mag-Ox] 400 mg PO DAILY 30 Days #30 tab 05/16/24 Lactulose [Cephulac] 20 gm PO TID 30 Days #90 ml 06/07/24 Spironolactone [Aldactone] 25 mg PO BID 30 Days #60 tab 06/07/24 Allergies Allergy/AdvReac Type Severity Reaction Status Date / Time Penicillins Allergy Anaphylaxis Verified 10/24/24 09:26 Review of Systems ROS Statement: Those systems with pertinent positive or pertinent negative responses have been documented in the HPI. ROS Other: All systems not noted in ROS Statement are negative. Past Medical History Past Medical History: GERD/Reflux, Liver Disease Additional Past Medical History / Comment(s): retains fluid,anemia,cirrohis of liver non alcoholic, occ bloody stool, ulcer, bipolar, low sodium levels, ascit es, anasarca History of Any Multi-Drug Resistant Organisms: VRE Date of last positivie culture/infection: 04/20/24 MDRO Source:: urine Past Surgical History: Cholecystectomy, EPS Additional Past Surgical History / Comment(s): has had 4 scopes, paracentesis Past Anesthesia/Blood Transfusion Reactions: No Reported Reaction Additional Past Anesthesia/Blood Transfusion Reaction / Comment(s): 3 units of blood transfused in around february 03. Past Psychological History: Anxiety, Bipolar Smoking Status: Current some day smoker Past Alcohol Use History: Abuse Past Drug Use History: None Reported General Exam Limitations: no limitations General appearance: alert, in no apparent distress Respiratory exam: Present: normal lung sounds bilaterally. Absent: respiratory distress, wheezes, rales, rhonchi, stridor Cardiovascular Exam: Present: regular rate, normal rhythm, normal heart sounds. Absent: systolic murmur, diastolic murmur, rubs, gallop, clicks GI/Abdominal exam: Present: soft, distended, tenderness (generalized), normal bowel sounds Rectal exam: Present: normal inspection, normal rectal tone, other (No hemorrhoids, anal fissures or gross blood ) Extremities exam: Present: normal inspection, full ROM, normal capillary refill. Absent: tenderness, pedal edema, joint swelling, calf tenderness Neurological exam: Present: alert, oriented X3, CN II-XII intact Skin exam: Present: warm, dry, intact, normal color. Absent: rash Course Vital Signs 10/24/24 10/24/24 10/24/24 09:23 13:29 14:39 Temperature 98.3 F 98.5 F 98.1 F Pulse Rate 124 H 111 H 116 H Respiratory 18 18 20 Rate Blood Pressure 97/59 87/59 84/54 O2 Sat by Pulse 99 98 98 Oximetry - Reevaluation(s) Reevaluation #1: 10/24/24 14:[address] Gabbie Martins. He advised on starting octreotide 50 mcg bolus and a 50 mcg/h drip. He advised against unit of blood. Accepts transfer. Medical Decision Making - Medical Decision Making Was pt. sent in by a medical professional or institution (, PA, DIRECTOR OF REHABILITATIVE SERVICES, urgent care, hospital, or prison...) When possible be specific @ -No Did you speak to anyone other than the patient for history (EMS, parent, family, police, friend...)? What history was obtained from this source @ -No Did you review nursing and triage notes (agree or disagree)? Why? @ -I reviewed and agree with nursing and triage notes Were old charts reviewed (outside hosp., previous admission, EMS record, old EKG, old radiological studies, urgent care reports/EKG's, prison records)? Report findings @ -No old charts were reviewed Differential Diagnosis (chest pain, altered mental status, abdominal pain women, abdominal pain men, vaginal bleeding, weakness, fever, dyspnea, syncope, headache, dizziness, GI bleed, back pain, seizure, CVA, palpatations, mental health, musculoskeletal)? @ -Differential Abdominal Pain Women:Appendicitis, Cholecystitis, diverticulosis, ischemic bowel, pancreatitis, hepatitis, UTI, gastroenteritis, AAA, incarcerated hernia, bowel obstruction, constipation, inflammatory bowel, hepatitis, peptic ulcer disease, splenic infarction, perforated viscus, vulvitis, ovarian torsion, PID, kidney stone, placenta abruption, this is not meant to be an all-inclusive list EKG interpreted by me (3pts min.). @ -None done X-rays interpreted by me (1pt min.). @ -None done CT interpreted by me (1pt min.). @ -CTA Abdomen pelvis showing no evidence of active GI bleed. Hepatic cirrhosis findings of portal hypertension and moderate to large volume ascites and collateral vessels. Celiac artery compression syndrome suggested. Stable mixed lytic/sclerotic lesions of right iliac bone. Right lower lobe 4 mm pulmonary nodule. U/S interpreted by me (1pt. min.). @ -None done What testing was considered but not performed or refused? (CT, X-rays, U/S, labs)? Why? @ -None What meds were considered but not given or refused? Why? @ -None Did you discuss the management of the patient with other professionals (professionals i.e. , PA, DIRECTOR OF REHABILITATIVE SERVICES, lab, RT, psych nurse, family welfare social work professor, training professional, teacher, licensed mortgage loan officer, case aide)? Give summary @ -Yes, case discussed with Dr. Gabbie Martins, for transfer he advised on starting octreotide at 50 mcg bolus and 50 mcg/h drip. He advised against unit of packed red blood cells. Accepts transfer. Was smoking cessation discussed for >3mins.? @ -No Was critical care preformed (if so, how long)? @ -No Were there social determinants of health that impacted care today? How? (Homelessness, low income, unemployed, alcoholism, drug addiction, transportation, low edu. Level, literacy, decrease access to med. care, senior care, rehab)? @ -No Was there de-escalation of care discussed even if they declined (Discuss DNR or withdrawal of care, Hospice)? DNR status @ -No What co-morbidities impacted this encounter? (DM, HTN, Smoking, COPD, CAD, Cancer, CVA, ARF, Chemo, Hep., AIDS, mental health diagnosis, sleep apnea, morbid obesity)? @ -Liver cirrhosis, Hx esophageal varices, Hx alcoholism Was patient admitted / discharged? Hospital course, mention meds given and route, prescriptions, significant lab abnormalities, going to OR and other pertinent info. @ -Transferred. 44-year-old female with a past medical history significant of liver cirrhosis presenting to the ER for evaluation of melena. Upon rooming, history and physical exam completed. Patient with a blood pressure of 97/59 with a heart rate of 124 bpm. Vitals otherwise acceptable limits. Patient's abdomen is distended with generalized tenderness. Rectal exam performed and chaperoned by Jo Ann LONGORIA with normal rectal tone and inspection. There are no hemorrhoids, anal fissures or gross blood on exam. Laboratory studies with a leukocytosis of 14.9 with a left shift. Hemoglobin 9.2 which has decreased from 10-21-2024 at 11.5. Hyponatremia at 123. Stage II CKD with a GFR 36, BUN 57 and creatinine 1.08. Total bilirubin 1.9, no significant LFT elevation. PT 13.7 with an INR 1.3. CTA showing no active GI bleed. Given patient's comorbidities, drop in hemoglobin and stool occult positive, transfer was discussed with [facility], Dr. Cartwright, accepts transfer. Patient started on octreotide 50 mcg bolus and 50 mcg/h drip, per Dr. Cartwright. No blood transfusion per Dr. Cartwright. Patient is agreeable for transfer. Patient given IV levofloxacin for infection prophylaxis, penicillin allergy. Patient also received 80 mg Protonix, 500ml IV fluid bolus, 10mg midodrine. Patient's blood pressure remained low at time of transfer with a blood pressure of 84/54 tachycardic at 116. Vitals otherwise stable. Patient will be transferred via EMS to [facility] for further evaluation and treatment. Case discussed with ED attending of Dr. Mckeon. Undiagnosed new problem with uncertain prognosis? @ -No Drug Therapy requiring intensive monitoring for toxicity (Heparin, Nitro, Insulin, Cardizem)? @ -No Were any procedures done? @ -No Diagnosis/symptom? @ - GI bleed/Stool occult positive/Anemia/leukocytosis Acute, or Chronic, or Acute on Chronic? @ -Acute Uncomplicated (without systemic symptoms) or Complicated (systemic symptoms)? @ -Complicated Side effects of treatment? @ -No Exacerbation, Progression, or Severe Exacerbation? @ -No Poses a threat to life or bodily function? How? (Chest pain, [place], [place], pneumonia, PE, COPD, DKA, ARF, appy, cholecystitis, CVA, Diverticulitis, Homicidal, Suicidal, threat to staff... and all critical care pts) @ -Yes - Lab Data Result diagrams: 10/24/24 10:02 10/24/24 10:02 Lab Results 10/24/24 10/24/24 10/24/24 Range/Units 10:02 10:02 10:54 WBC 14.9 H (3.8-10.6) k/uL RBC 2.70 L (3.80-5.40) m/uL Hgb 9.2 L D (11.4-16.0) gm/dL Hct 27.5 L (34.0-46.0) % MCV 101.6 H (80.0-100.0) fL MCH 34.0 (25.0-35.0) pg MCHC 33.5 (31.0-37.0) g/dL RDW 16.1 H (11.5-15.5) % Plt Count 115 L (150-450) k/uL MPV 9.3 Neutrophils % (Manual) 86 % Band Neuts % (Manual) 1 % Lymphocytes % (Manual) 11 % Monocytes % (Manual) 2 % Neutrophils # (Manual) 12.90 H (1.3-7.7) k/uL Lymphocytes # (Manual) 1.64 (1.0-4.8) k/uL Monocytes # (Manual) 0.30 (0-1.0) k/uL Nucleated RBCs 0 (0-0) /100 WBC Manual Slide Review Performed Hypochromasia Slight Anisocytosis Slight Macrocytosis Slight PT 13.7 H (10.0-12.5) sec INR 1.3 H (<1.2) APTT 27.7 (22.0-30.0) sec Sodium 123 L (137-145) mmol/L Potassium 3.9 (3.5-5.1) mmol/L Chloride 94 L (98-107) mmol/L Carbon Dioxide 22 (22-30) mmol/L Anion Gap 7 mmol/L BUN 57 H (7-17) mg/dL Creatinine 1.08 H (0.52-1.04) mg/dL Est GFR (CKD-EPI)AfAm 73 (>60 ml/min/1.73 sqM) Est GFR (CKD-EPI)NonAf 63 (>60 ml/min/1.73 sqM) Glucose 110 H (74-99) mg/dL Calcium 8.0 L (8.4-10.2) mg/dL Total Bilirubin 1.9 H (0.2-1.3) mg/dL AST 43 H (14-36) U/L ALT 18 (4-34) U/L Alkaline Phosphatase 81 (38-126) U/L Total Protein 4.5 L (6.3-8.2) g/dL Albumin 2.4 L (3.5-5.0) g/dL Amylase <30 L (30-110) U/L Lipase 102 (23-300) U/L Urine Color Urine Appearance (Clear) Urine pH (5.0-8.0) Ur Specific Nelson (1.001-1.035) Urine Protein (Negative) Urine Glucose (UA) (Negative) Urine Ketones (Negative) Urine Blood (Negative) Urine Nitrite (Negative) Urine Bilirubin (Negative) Urine Urobilinogen (<2.0) mg/dL Ur Leukocyte Esterase (Negative) Urine RBC (0-5) /hpf Urine WBC (0-5) /hpf Ur Squamous Epith Cells (0-4) /hpf Urine Bacteria (None) /hpf Stool Occult Blood (Negative) 10/24/24 10/24/24 Range/Units 12:00 13:39 WBC (3.8-10.6) k/uL RBC (3.80-5.40) m/uL Hgb (11.4-16.0) gm/dL Hct (34.0-46.0) % MCV (80.0-100.0) fL MCH (25.0-35.0) pg MCHC (31.0-37.0) g/dL RDW (11.5-15.5) % Plt Count (150-450) k/uL MPV Neutrophils % (Manual) % Band Neuts % (Manual) % Lymphocytes % (Manual) % Monocytes % (Manual) % Neutrophils # (Manual) (1.3-7.7) k/uL Lymphocytes # (Manual) (1.0-4.8) k/uL Monocytes # (Manual) (0-1.0) k/uL Nucleated RBCs (0-0) /100 WBC Manual Slide Review Hypochromasia Anisocytosis Macrocytosis PT (10.0-12.5) sec INR (<1.2) APTT (22.0-30.0) sec Sodium (137-145) mmol/L Potassium (3.5-5.1) mmol/L Chloride (98-107) mmol/L Carbon Dioxide (22-30) mmol/L Anion Gap mmol/L BUN (7-17) mg/dL Creatinine (0.52-1.04) mg/dL Est GFR (CKD-EPI)AfAm (>60 ml/min/1.73 sqM) Est GFR (CKD-EPI)NonAf (>60 ml/min/1.73 sqM) Glucose (74-99) mg/dL Calcium (8.4-10.2) mg/dL Total Bilirubin (0.2-1.3) mg/dL AST (14-36) U/L ALT (4-34) U/L Alkaline Phosphatase (38-126) U/L Total Protein (6.3-8.2) g/dL Albumin (3.5-5.0) g/dL Amylase (30-110) U/L Lipase (23-300) U/L Urine Color Light Yellow Urine Appearance Clear (Clear) Urine pH 6.0 (5.0-8.0) Ur Specific Nelson 1.026 (1.001-1.035) Urine Protein Negative (Negative) Urine Glucose (UA) 1+ H (Negative) Urine Ketones Negative (Negative) Urine Blood Small H (Negative) Urine Nitrite Negative (Negative) Urine Bilirubin Negative (Negative) Urine Urobilinogen <2.0 (<2.0) mg/dL Ur Leukocyte Esterase Negative (Negative) Urine RBC <1 (0-5) /hpf Urine WBC 1 (0-5) /hpf Ur Squamous Epith Cells 3 (0-4) /hpf Urine Bacteria Rare H (None) /hpf Stool Occult Blood Positive H (Negative) - Radiology Data Radiology results: report reviewed, image reviewed Disposition Clinical Impression: GI bleed, Cirrhosis, Anemia, Occult blood positive stool Disposition: OTHER INSTITUTION NOT DEFINED Condition: Serious Referrals: Luis Alfredo Shields MD [Primary Care Provider] - 1-2 days Time of Disposition: 14:50 - Out of Hospital Transfer - Req. Specs Out of Hospital Transfer - Requested Specifics: Other Emergency Center ([facility] - GI)
[2024-10-24 10:26] LABS: Anisocytosis Slight; HCT 27.5 % (34.0-46.0); Hypochromasia Slight; MCHC 33.5 g/dL (31.0-37.0); MCV 101.6 fL (80.0-100.0); Macrocytosis Slight; Mean Platelet Volume 9.3; Platelet Count 115 k/uL (150-450); RDW 16.1 % (11.5-15.5); WBC 14.9 k/uL (3.8-10.6)
[2024-10-24 10:36] LABS: ALT 18 U/L (4-34); African American GFR (CKD) 73 (>60 ml/min/1.73 sqM); Albumin 2.4 g/dL (3.5-5.0); Amylase <30 U/L (30-110); Anion Gap 7 mmol/L; Blood Urea Nitrogen 57 mg/dL (7-17); Carbon Dioxide 22 mmol/L (22-30); Chloride 94 mmol/L (98-107); Glucose 110 mg/dL (74-99); Lipase 102 U/L (23-300); Non-African American GFR(CKD) 63 (>60 ml/min/1.73 sqM); Sodium 123 mmol/L (137-145); Total Bilirubin 1.9 mg/dL (0.2-1.3); Total Protein 4.5 g/dL (6.3-8.2)
[2024-10-24 10:46] LABS: AST 43 U/L (14-36); Alkaline Phosphatase 81 U/L (38-126); Potassium 3.9 mmol/L (3.5-5.1)
[2024-10-24 10:54] LABS: HGB 9.2 gm/dL (11.4-16.0)
[2024-10-24] MEDS: SODIUM CHLORIDE 0.9% 500 ML 500 ML IV ONE (10:55)
[2024-10-24] MEDS: HYDROmorphone 0.5 MG/0.5 ML SYRINGE IVP STA (11:03)
[2024-10-24] MEDS: PANTOPRAZOLE 40 MG/10 ML VIAL IVP STA ×2 (11:03→15:08)
[2024-10-24 11:19] LABS: INR 1.3 (<1.2); Partial Thromboplastin Time 27.7 sec (22.0-30.0); Prothrombin Time 13.7 sec (10.0-12.5)
[2024-10-24 11:36] LABS: Band Neutrophils % 1 %; Lymphocytes # (M) 1.64 k/uL (1.0-4.8); Neutrophils % (M) 86 %; Nucleated Red Blood Cells 0 /100 WBC (0-0); Total Cells Counted 100
--- NOTE | 2024-10-24 13:41 | CT ---
EXAMINATION TYPE: CT angio abdomen pelvis CT DLP: 2882.4 mGycm, Automated exposure control for dose reduction was used. DATE OF EXAM: 10/24/2024 1:17 PM COMPARISON:CT abdomen and pelvis 05/03/2024 CLINICAL INDICATION:Female, 44 years old with history of melena stool occult +; DARK STOOL TECHNIQUE: Multiple thin slice sub-millimeter images were obtained through the abdomen and pelvis bef ore and after administration of contrast. Delayed imaging was performed. Patient was given Isovue 37 0, 100 cc intravenously. Maximum intensity projection images were obtained of the abdomen and pelvis. FINDINGS: CTA Abdomen and pelvis: Mild atherosclerotic calcifications are present throughout the abdominal aort a and its branches. No abdominal aortic aneurysm. There is focal narrowing of the celiac axis just af ter its origin with poststenotic dilatation (series 504, image 116). The SMA is widely patent. Mild s tenosis of the origin of the single right renal artery secondary to calcified plaque. The left renal artery is widely patent. The LAN is widely patent. The bilateral common iliac arteries are widely pat ent. The bilateral internal and external iliac arteries are widely patent. The bilateral common femor al arteries are widely patent. The bilateral visualized superficial and deep femoral arteries are wid tami patent. Paraesophageal collateral vessels. VISCERA: The liver, spleen, adrenal glands, kidneys, pancreas, and gallbladder are not optimally enha nced due the arterial phase utilized. LIVER: Cirrhotic morphology to the liver couple of subcentimeter scattered hypodense foci which appea r grossly stable from prior CT 05/03/2024. No definitive enhancing focus identified. GALLBLADDER AND BILE DUCTS: Gallbladder is poorly visualized. Few calcifications within the gallbladd er fossa. No biliary duct dilatation. PANCREAS: Unremarkable. SPLEEN: Unremarkable. Splenule abutting the spleen identified. ADRENAL GLANDS: Unremarkable. KIDNEYS AND URETERS: No evidence of hydronephrosis or renal calculus. The kidneys enhance symmetrical ly. Stable 2 nodules along the right paracaval and anterior pararenal spaces with largest measuring u p to 2.1 cm. These are favored to represent collateral nodular vessels. PELVIS BLADDER: Unremarkable REPRODUCTIVE: Unremarkable. ABDOMEN & PELVIS STOMACH AND BOWEL: Stable hyperdense focus within the stomach which did not change on delayed phase t o suggest active bleed. Hyperdense noncontrast phase. No focal bowel wall thickening or surrounding i nflammatory changes. No hyperdense material identified within the bowel. No evidence of bowel obstruc tion. PERITONEUM: No evidence of pneumoperitoneum. Moderate to large volume ascites throughout the abdomen and pelvis. Redemonstration of small layering calculi within the rectouterine space. MUSCULOSKELETAL: No acute osseous abnormalities. Similar mixed sclerotic/lytic appearance of the righ t iliac bone. LYMPH NODES: No evidence for lymphadenopathy. SOFT TISSUE/ABDOMINAL WALL: Small to moderate-sized umbilical hernia containing fat and ascites. LOWER CHEST: Right lower lobe 4 mm pulmonary nodule which was not previously seen on prior exam proba lio due to overlying consolidation. Trace anterior pericardial effusion. IMPRESSION 1. No CT evidence for active GI bleed. 2. Hepatic cirrhosis with findings of portal hypertension with moderate to large volume ascites and collateral vessels. 3. Findings suggesting celiac artery compression syndrome. 4. Stable mixed lytic/sclerotic appearance of the right iliac bone. Probable Paget's disease. 5. Right lower lobe 4 mm pulmonary nodule. In a low-risk patient no follow up is recommended. In a hi gh-risk patient consider optional CT chest in 12 months. [facility], , 10/24/2024 1:39 PM
[2024-10-24 13:49] LABS: Appearance,Urine Clear (Clear); Bacteria,Urine Rare /hpf; Bilirubin,Urine Negative (Negative); Blood,Urine Small (Negative); Color,Urine Light Yellow; Glucose,Urine (UA) 1+ (Negative); Ketones,Urine Negative (Negative); Leukocyte Esterase,Urine Negative (Negative); Nitrite,Urine Negative (Negative); Protein,Urine Negative (Negative); RBC,Urine <1 /hpf (0-5); Specific Gravity,Urine 1.026 (1.001-1.035); Squamous Epithelial Cell,Urine 3 /hpf (0-4); Urobilinogen,Urine <2.0 mg/dL (<2.0); WBC,Urine 1 /hpf (0-5)
[2024-10-24] MEDS ORDERED: MIDODRINE 5 MG TAB PO STA (14:16)
[2024-10-24 14:39] VITALS: BP 84/54; PULSE 116; RESP 20; TEMP 98.1
[2024-10-24] MEDS ORDERED: OCTREOTIDE 500 MCG in SODIUM CHLORIDE 0.9% 250 ML IV SCH (14:45)
[2024-10-24] MEDS: LEVOFLOXACIN 500MG-D5W PMX 500 MG in DEXTROSE/WATER 1 100ML.BAG IVPB STA (14:54)
[2024-10-24] MEDS: OCTREOTIDE 100 MCG/ML INJ IVP STA (14:57)
== END 2024-10-24 15:14 | disposition other institution (70) ==
LOC: EC 09:05
DX: D64.9 Anemia, unspecified (principal); K92.1 Melena; K74.60 Unspecified cirrhosis of liver; F17.200 Nicotine dependence, unspecified, uncomplicated; Z88.0 Allergy status to penicillin; F10.21 Alcohol dependence, in remission; Z87.19 Personal history of other diseases of the digestive system
CPT/HCPCS: 36415; 86900; 86901; 80053; 82150; 83690; 85025; 85610; 85730; 86850; 82272; 81001; 87040; 74174; 99285; 96365; 96375 ×3; 96376; 96361 ×4; J1956; J2354; J1171; Q9967; J2470

== ENCOUNTER 2024-10-28 12:39 | Day surgery (SDC) | payer OTHER ==
[2024-10-28] MEDS: ALBUMIN HUMAN 25% 50 ML in EMPTY BAG 1 BAG IVPB SCH (13:53)
[2024-10-28 13:57] VITALS: TEMP 98.2
[2024-10-28 13:59] LABS: Anisocytosis Slight; Basophils % (A) 0 %; Eosinophils # (A) 0.4 k/uL (0-0.7); Eosinophils % (A) 4 %; HCT 23.5 % (34.0-46.0); Hypochromasia Moderate; Lymphocytes % (A) 10 %; MCH 33.2 pg (25.0-35.0); MCHC 31.7 g/dL (31.0-37.0); MCV 104.9 fL (80.0-100.0); Macrocytosis Marked; Mean Platelet Volume 9.1; Monocytes # (A) 0.5 k/uL (0-1.0); Monocytes % (A) 5 %; Neutrophils # (A) 7.7 k/uL (1.3-7.7); Neutrophils % (A) 78 %; RBC 2.24 m/uL (3.80-5.40); RDW 19.4 % (11.5-15.5); WBC 9.9 k/uL (3.8-10.6)
[2024-10-28 14:10] LABS: Prothrombin Time 11.4 sec (10.0-12.5)
[2024-10-28 14:13] LABS: African American GFR (CKD) 46 (>60 ml/min/1.73 sqM); Non-African American GFR(CKD) 40 (>60 ml/min/1.73 sqM)
[2024-10-28 14:14] LABS: HGB 7.4 gm/dL (11.4-16.0)
[2024-10-28 14:30] LABS: Large Platelets Present; Platelet Count 95 k/uL (150-450)
[2024-10-28 15:23] VITALS: BP 100/56; PULSE 92; RESP 18
--- NOTE | 2024-11-01 11:19 | US ---
EXAMINATION TYPE: US paracentesis abd w/image DATE OF EXAM: 10/28/2024 2:33 PM COMPARISON: None. Previous Paracentesis CLINICAL INDICATION: Female, 44 years old with history of cirrhosis; , ascites TECHNIQUE/FINDINGS: The procedure was discussed with the patient. The risks, complications, benefits, and alternatives we re discussed and any questions were answered. Informed consent was obtained. The patient was placed s upine on the ultrasound table and prepped and draped in the usual sterile fashion. All elements of maximal barrier technique were utilized. Under ultrasound guidance, access into the right lower quadrant was obtained, via the paracentesis catheter system and direct ultrasound guidanc e. Approximately 5 liters of straw-colored fluid was removed. The patient was stable throughout the proc edure and remained stable upon discharge from Department of Radiology. IMPRESSION: Successful paracentesis under ultrasound guidance. [facility], , 11/01/2024 11:16 AM
== END 2024-10-28 15:15 | disposition home or self-care (01) ==
LOC: RADPROMAIN 12:39
PROVIDERS: ATTEND Internal Medicine Gastroenterology
DX: R18.8 Other ascites (principal); K74.60 Unspecified cirrhosis of liver
CPT/HCPCS: 82565; 85025; 85610; 36415; 49083; P9047

== ENCOUNTER 2024-11-04 12:51 | Day surgery (SDC) | payer OTHER ==
[2024-11-04 13:51] LABS: Prothrombin Time 11.3 sec (10.0-12.5)
[2024-11-04 13:52] LABS: Mean Platelet Volume 8.9
[2024-11-04 13:59] LABS: Platelet Count 194 k/uL (150-450)
[2024-11-04 14:03] VITALS: RESP 12; TEMP 98.6
[2024-11-04] MEDS: ALBUMIN HUMAN 25% 50 ML in EMPTY BAG 1 BAG IVPB SCH (14:03)
[2024-11-04 14:20] LABS: African American GFR (CKD) 60 (>60 ml/min/1.73 sqM); Non-African American GFR(CKD) 52 (>60 ml/min/1.73 sqM)
[2024-11-04 15:09] VITALS: BP 119/75; PULSE 85
--- NOTE | 2024-11-16 09:42 | US ---
EXAMINATION TYPE: US paracentesis abd w/image DATE OF EXAM: 11/04/2024 CLINICAL HISTORY: Ascites The procedure was discussed with the patient. The risks, complications, benefits, and alternatives we re discussed and any questions were answered. Informed consent was obtained. The patient was placed s upine on the ultrasound table and prepped and draped in the usual sterile fashion. All elements of maximal barrier technique were utilized. Under ultrasound guidance, access into the right lower quadrant was obtained, via the paracentesis catheter system and direct ultrasound guidanc e. Approximately 10.2 liters of straw-colored fluid was removed. The patient was stable throughout the p rocedure and remained stable upon discharge from Department of Radiology. IMPRESSION: Successful therapeutic paracentesis under ultrasound guidance. [facility], , 11/16/2024 9:39 AM
== END 2024-11-04 15:20 | disposition home or self-care (01) ==
LOC: RADPROMAIN 12:51
PROVIDERS: ATTEND Internal Medicine Gastroenterology
DX: R18.8 Other ascites (principal)
CPT/HCPCS: 82565; 85049; 85610; 36415; 49083; P9047

== ENCOUNTER → 2024-11-07 | Outpatient (CLI) | payer OTHER ==
--- NOTE | 2024-11-07 10:55 | US ---
EXAMINATION TYPE: US liver DATE OF EXAM: 11/07/2024 COMPARISON: US(07/20/2024) CLINICAL INDICATION: Female, 44 years old with history of K70.31 ALCOHOLIC CIRRHOSIS; TECHNIQUE: Grayscale and color Doppler imaging of the right upper quadrant. FINDINGS: EXAM MEASUREMENTS: Liver Length: 18.2 cm Gallbladder Wall: Surgically absent CBD: 0.4 cm, color Doppler imaging was utilized to isolate the common bile duct for measurement. Right Kidney: 9.4x4.2x4.2 cm LICENSING DIRECTOR NOTES: slightly limited exam due to overlying bowel & pt body habitus, pt abdomen is dist ended due to ascites, pt gets paracentesis done every thursday weekly Pancreas: Tail obscured by overlying bowel gas Liver: cirrhotic, nodular course echotexture, slight increased attenuation Gallbladder: Surgically absent Evidence for sonographic Cordova's sign: No CBD: wnl Right Kidney: No hydronephrosis or masses seen FLuid seen within all four quadrants, pt gets drained Thursday the IMPRESSION: 1. Ascites. 2. Cirrhotic enlarged liver. [facility], , 11/07/2024 10:52 AM
== END | disposition home or self-care (01) ==
LOC: RADUSWWP 08:51
PROVIDERS: ATTEND Internal Medicine Gastroenterology
DX: K70.31 Alcoholic cirrhosis of liver with ascites (principal)
CPT/HCPCS: 76705

== ENCOUNTER 2024-11-11 11:42 | Day surgery (SDC) | payer OTHER ==
[2024-11-11] MEDS: ALBUMIN HUMAN 25% 50 ML in EMPTY BAG 1 BAG IVPB SCH (12:30)
[2024-11-11 12:40] LABS: Basophils # (A) 0.06 10*3/uL (0.00-0.10); Basophils % (A) 0.4 %; Eosinophils # (A) 0.35 10*3/uL (0.04-0.35); Eosinophils % (A) 2.6 %; HCT 29.1 % (37.2-46.3); Immature Platelet Fraction 3.5 % (1.1-6.1); Lymphocytes # (A) 1.31 10*3/uL (0.90-5.00); Lymphocytes % (A) 9.6 %; MCHC 34.4 g/dL (32.0-37.0); MCV 101.7 fL (80.0-97.0); Mean Platelet Volume 10.4 fL (9.5-12.2); Monocytes # (A) 1.01 10*3/uL (0.20-1.00); Monocytes % (A) 7.4 %; Neutrophils # (A) 10.61 10*3/uL (1.80-7.70); Neutrophils % (A) 78.2 %; Platelet Count 142 10*3/uL (140-440); RBC 2.86 10*6/uL (4.10-5.20); RDW 19.7 % (11.5-14.5); WBC 13.59 10*3/uL (4.50-10.00)
[2024-11-11 12:49] LABS: African American GFR (CKD) 62 (>60 ml/min/1.73 sqM); Non-African American GFR(CKD) 53 (>60 ml/min/1.73 sqM)
[2024-11-11 12:50] LABS: INR 1.1 (<1.2); Prothrombin Time 11.6 sec (10.0-12.5)
[2024-11-11 13:06] VITALS: RESP 18; TEMP 98.1
[2024-11-11 14:54] VITALS: BP 101/62; PULSE 97
--- NOTE | 2024-11-11 17:10 | US ---
EXAMINATION TYPE: US paracentesis abd w/image DATE OF EXAM: 11/11/2024 CLINICAL HISTORY: 44 year-old female cirrhosis, ascites, and distention, referred for paracentesis The procedure was discussed with the patient. The risks, complications, benefits, and alternatives we re discussed and any questions were answered. Informed consent was obtained. The patient was placed s upine on the ultrasound table and prepped and draped in the usual sterile fashion. All elements of maximal barrier technique were utilized. Ultrasound was utilized to determine the precise skin entry site along the the right lower quadrant. A 5 Prydeinig One-Step catheter and trocar technique was utilized to access the ascites collection under direct ultrasound guidance. Approximately 8.8 liters of clear, straw-colored fluid was removed. Catheter was removed, hemostasis obtained, and a dressing placed. The patient was stable throughout the procedure and remained stable upon discharge from Department of Radiology. IMPRESSION: Successful therapeutic paracentesis under ultrasound guidance. 8.8 L of fluid removed. [facility], , 11/11/2024 5:08 PM
== END 2024-11-11 14:15 | disposition home or self-care (01) ==
LOC: RADPROMAIN 11:42
PROVIDERS: ATTEND Internal Medicine Gastroenterology
DX: K74.60 Unspecified cirrhosis of liver (principal); R18.8 Other ascites
CPT/HCPCS: 82565; 85025; 85049; 85610; 82105; 36415; 49083; P9047

== ENCOUNTER 2024-11-18 12:54 | Day surgery (SDC) | payer OTHER ==
[2024-11-18 13:57] LABS: Basophils # (A) 0.07 10*3/uL (0.00-0.10); Basophils % (A) 0.9 %; Eosinophils # (A) 0.36 10*3/uL (0.04-0.35); Eosinophils % (A) 4.7 %; HCT 28.8 % (37.2-46.3); HGB 9.8 g/dL (12.0-15.0); Lymphocytes # (A) 1.03 10*3/uL (0.90-5.00); Lymphocytes % (A) 13.6 %; MCV 102.9 fL (80.0-97.0); Monocytes % (A) 6.6 %; Neutrophils % (A) 73.7 %; Platelet Count 104 10*3/uL (140-440); RDW 18.1 % (11.5-14.5)
[2024-11-18] MEDS: ALBUMIN HUMAN 25% 50 ML in EMPTY BAG 1 BAG IVPB SCH (14:01)
[2024-11-18 14:03] LABS: INR 1.1 (<1.2); Prothrombin Time 11.5 sec (10.0-12.5)
[2024-11-18 14:05] LABS: African American GFR (CKD) 59 (>60 ml/min/1.73 sqM); Non-African American GFR(CKD) 51 (>60 ml/min/1.73 sqM)
[2024-11-18 14:13] VITALS: RESP 16; TEMP 98
[2024-11-18 14:58] VITALS: BP 116/72; PULSE 91
--- NOTE | 2024-11-18 15:18 | US ---
EXAMINATION TYPE: US paracentesis abd w/image DATE OF EXAM: 11/18/2024 2:18 PM COMPARISON: None. Previous Paracentesis CLINICAL INDICATION: Female, 44 years old with history of K70.31 ALCOHOLIC CIRRHOSIS OF LIVER WITH CITES; , ascites TECHNIQUE/FINDINGS: The procedure was discussed with the patient. The risks, complications, benefits, and alternatives we re discussed and any questions were answered. Informed consent was obtained. The patient was placed s upine on the ultrasound table and prepped and draped in the usual sterile fashion. All elements of maximal barrier technique were utilized. Under ultrasound guidance, access into the right lower quadrant was obtained, via the paracentesis catheter system and direct ultrasound guidanc e. Approximately 8 liters of straw-colored fluid was removed. The patient was stable throughout the proc edure and remained stable upon discharge from Department of Radiology. IMPRESSION: Successful paracentesis under ultrasound guidance. [facility], , 11/18/2024 3:16 PM
== END 2024-11-18 15:15 ==
LOC: RADPROMAIN 12:54
PROVIDERS: ATTEND Internal Medicine Gastroenterology
DX: K70.31 Alcoholic cirrhosis of liver with ascites (principal)
CPT/HCPCS: 82565; 85025; 85049; 85610; 82105; 36415; 49083; P9047

== ENCOUNTER 2024-11-25 13:03 | Day surgery (SDC) | payer OTHER ==
[2024-11-25 13:23] VITALS: RESP 12; TEMP 98.3
[2024-11-25 13:43] LABS: Mean Platelet Volume 11.3 fL (9.5-12.2); Platelet Count 186 10*3/uL (140-440)
[2024-11-25 14:04] LABS: African American GFR (CKD) 84 (>60 ml/min/1.73 sqM); Non-African American GFR(CKD) 73 (>60 ml/min/1.73 sqM)
[2024-11-25] MEDS: ALBUMIN HUMAN 25% 50 ML in EMPTY BAG 1 BAG IVPB SCH (14:04)
[2024-11-25 15:07] VITALS: BP 118/76; PULSE 109
--- NOTE | 2024-11-25 21:32 | US ---
EXAMINATION TYPE: US paracentesis abd w/image DATE OF EXAM: 11/25/2024 CLINICAL HISTORY: Ascites The procedure was discussed with the patient. The risks, complications, benefits, and alternatives we re discussed and any questions were answered. Informed consent was obtained. The patient was placed s upine on the ultrasound table and prepped and draped in the usual sterile fashion. All elements of maximal barrier technique were utilized. Under ultrasound guidance, access into the right lower quadrant was obtained, via the paracentesis catheter system and direct ultrasound guidanc e. Approximately 8.2 liters of straw-colored fluid was removed. The patient was stable throughout the pr ocedure and remained stable upon discharge from Department of Radiology. IMPRESSION: Successful therapeutic paracentesis under ultrasound guidance. [facility], , 11/25/2024 9:30 PM
== END 2024-11-25 15:10 | disposition home or self-care (01) ==
LOC: RADPROMAIN 13:03
PROVIDERS: ATTEND Internal Medicine Gastroenterology
DX: R18.8 Other ascites (principal)
CPT/HCPCS: 82565; 85049; 85610; 82105; 36415; 49083; P9047

== ENCOUNTER 2024-12-02 12:53 | Day surgery (SDC) | payer OTHER ==
[2024-12-02 13:51] LABS: Platelet Count 176 10*3/uL (140-440)
[2024-12-02] MEDS: ALBUMIN HUMAN 25% 50 ML in EMPTY BAG 1 BAG IVPB SCH (13:55)
[2024-12-02 14:03] LABS: African American GFR (CKD) 75 (>60 ml/min/1.73 sqM); Non-African American GFR(CKD) 65 (>60 ml/min/1.73 sqM)
[2024-12-02 14:12] LABS: Prothrombin Time 10.6 sec (10.0-12.5)
[2024-12-02 14:23] VITALS: RESP 20; TEMP 98.5
[2024-12-02 15:47] VITALS: BP 114/59; PULSE 91
--- NOTE | 2024-12-03 07:38 | US ---
EXAMINATION TYPE: US paracentesis abd w/image DATE OF EXAM: December 02, 2024 COMPARISON: November 25, 2024 prior paracentesis. CLINICAL INDICATION:Female, 44 years old with history of LIVER CIRRHOSIS; , ascites ATTENDING: Dr. Palacio PROCEDURE: Informed consent was obtained. The risks of the procedure were extensively explained incl uding risk of damage to surrounding bowel with perforation and need for additional procedures. Procedure was performed in the ultrasound procedure suite. Ultrasound imaging of the abdomen demonstr ate ascitic fluid. An appropriate access site was localized to the right lateral abdomen. Timeout was taken per protocol. The skin was prepped and draped in the usual sterile fashion and then locally an esthetized with 1% lidocaine. The peritoneal cavity was then accessed via a 5-Turkmen one-step needle /catheter. Approximately 8800 mL of clear straw-colored fluid was obtained. Albumin supplement given as per protocol. Patient tolerated procedure well without immediate complication. Hemostasis at the procedural site w as obtained with a sterile bandage placed. The patient was monitored in the holding area following th e procedure and was subsequently discharged in stable condition. IMPRESSION: Ultrasound guided therapeutic paracentesis, with approximately 8800mL of clear straw-colored fluid dr browning. No immediate complications were evident. [facility], , 12/03/2024 7:35 AM
== END 2024-12-02 15:30 | disposition home or self-care (01) ==
LOC: RADPROMAIN 12:53
PROVIDERS: ATTEND Internal Medicine Gastroenterology
DX: R18.8 Other ascites (principal); K74.60 Unspecified cirrhosis of liver
CPT/HCPCS: 82565; 85049; 85610; 36415; 49083; P9047

== ENCOUNTER 2024-12-09 13:02 | Day surgery (SDC) | payer OTHER ==
[2024-12-09 13:38] LABS: Mean Platelet Volume 10.3 fL (9.5-12.2); Platelet Count 96 10*3/uL (140-440)
[2024-12-09 13:51] LABS: African American GFR (CKD) 34 (>60 ml/min/1.73 sqM); Non-African American GFR(CKD) 30 (>60 ml/min/1.73 sqM)
[2024-12-09] MEDS: ALBUMIN HUMAN 25% 50 ML in EMPTY BAG 1 BAG IVPB SCH (13:55)
[2024-12-09 14:02] VITALS: TEMP 98.2
[2024-12-09 14:04] LABS: INR 0.9 (<1.2); Prothrombin Time 10.5 sec (10.0-12.5)
[2024-12-09 14:09] VITALS: RESP 16
[2024-12-09 14:58] VITALS: BP 95/55; PULSE 87
--- NOTE | 2024-12-09 15:18 | US ---
EXAMINATION TYPE: US paracentesis abd w/image DATE OF EXAM: 12/09/2024 1:43 PM COMPARISON: prior paracentesis. CLINICAL INDICATION:Female, 44 years old with history of cirrhosis; , ascites ATTENDING: Dr. Luis E Byrne PROCEDURE: Informed consent was obtained. The risks of the procedure were extensively explained incl uding risk of damage to surrounding bowel with perforation and need for additional procedures. Proced ure was performed in the ultrasound procedure suite. Ultrasound imaging of the abdomen demonstrate as citic fluid. An appropriate access site was localized to the right lower abdomen. Timeout was taken p er protocol. The skin was prepped and draped in the usual sterile fashion and then locally anesthetiz ed with 1% lidocaine. The peritoneal cavity was then accessed via a 5-Tristanian one-step needle/cathete r. Approximately 7400 mL of clear straw-colored fluid was obtained. Postprocedural imaging of the ab domen demonstrate a minimal amount of abdominal fluid. Patient tolerated procedure well without immediate complication. Hemostasis at the procedural site w as obtained with a sterile bandage placed. The patient was monitored in the holding area following th e procedure and was subsequently discharged in stable condition. IMPRESSION: Ultrasound guided paracentesis, with approximately 7400 mL of clear straw-colored fluid drained. No immediate complications were evident. [facility], , 12/09/2024 3:16 PM
== END 2024-12-09 15:15 | disposition home or self-care (01) ==
LOC: RADPROMAIN 13:02
PROVIDERS: ATTEND Internal Medicine Gastroenterology
DX: R18.8 Other ascites (principal); K74.60 Unspecified cirrhosis of liver
CPT/HCPCS: 82565; 85049; 85610; 36415; 49083; P9047

== ENCOUNTER 2024-12-16 13:02 | Day surgery (SDC) | payer OTHER ==
[2024-12-16 13:48] LABS: Mean Platelet Volume 10.6 fL (9.5-12.2); Platelet Count 130 10*3/uL (140-440)
[2024-12-16] MEDS: ALBUMIN HUMAN 25% 50 ML in EMPTY BAG 1 BAG IVPB SCH (13:51)
[2024-12-16 13:57] LABS: Prothrombin Time 11.4 sec (10.0-12.5)
[2024-12-16 13:58] LABS: African American GFR (CKD) 59 (>60 ml/min/1.73 sqM); Non-African American GFR(CKD) 52 (>60 ml/min/1.73 sqM)
[2024-12-16 14:03] VITALS: RESP 16; TEMP 98.2
[2024-12-16 15:24] VITALS: BP 107/72; PULSE 95
--- NOTE | 2024-12-19 07:42 | US ---
EXAMINATION TYPE: US paracentesis abd w/image DATE OF EXAM: December 16, 2024 COMPARISON: Dec 09 2024 prior paracentesis. CLINICAL INDICATION:Female, 44 years old with history of LIVER CIRRHOSIS; , ascites ATTENDING: Dr. Palacio PROCEDURE: Informed consent was obtained. The risks of the procedure were extensively explained incl uding risk of damage to surrounding bowel with perforation and need for additional procedures. Procedure was performed in the ultrasound procedure suite. Ultrasound imaging of the abdomen demonstr ate ascitic fluid. An appropriate access site was localized to the left flank abdomen. Timeout was conrad see per protocol. The skin was prepped and draped in the usual sterile fashion and then locally anest hetized with 1% lidocaine. The peritoneal cavity was then accessed via a 5-Setswana one-step needle/ca theter. Approximately 7900 mL of clear straw-colored fluid was obtained. Albumin supplement given as per protocol. Patient tolerated procedure well without immediate complication. Hemostasis at the procedural site w as obtained with a sterile bandage placed. The patient was monitored in the holding area following th e procedure and was subsequently discharged in stable condition. IMPRESSION: Ultrasound guided therapeutic paracentesis, with approximately 7900mL of clear straw-colored fluid dr browning. No immediate complications were evident. [facility], , 12/19/2024 7:40 AM
== END 2024-12-16 15:00 | disposition home or self-care (01) ==
LOC: RADPROMAIN 13:02
PROVIDERS: ATTEND Internal Medicine Gastroenterology
DX: R18.8 Other ascites (principal); K74.60 Unspecified cirrhosis of liver
CPT/HCPCS: 82565; 85049; 85610; 36415; 49083; P9047

== ENCOUNTER 2025-01-06 12:54 | Day surgery (SDC) | payer OTHER ==
[2025-01-06] MEDS ORDERED: ALBUMIN HUMAN 25% 50 ML in EMPTY BAG 1 BAG IVPB SCH (13:45)
[2025-01-06 13:46] LABS: Mean Platelet Volume 10.4 fL (9.5-12.2); Platelet Count 144 10*3/uL (140-440)
[2025-01-06 13:54] LABS: INR 1.1 (<1.2); Prothrombin Time 12.2 sec (10.0-12.5)
[2025-01-06 14:05] VITALS: RESP 16; TEMP 97.8
[2025-01-06 14:06] LABS: African American GFR (CKD) 50 (>60 ml/min/1.73 sqM); Non-African American GFR(CKD) 43 (>60 ml/min/1.73 sqM)
[2025-01-06] MEDS: ALBUMIN HUMAN 25% 50 ML in EMPTY BAG 1 BAG IVPB SCH (14:06)
[2025-01-06 14:16] VITALS: BP 93/62; PULSE 76
--- NOTE | 2025-01-07 09:19 | US ---
EXAMINATION TYPE: US paracentesis abd w/image DATE OF EXAM: 01/06/2025 2:09 PM COMPARISON: prior paracentesis. CLINICAL INDICATION:Female, 44 years old with history of ascities; , ascites ATTENDING: Dr. Luis E Byrne PROCEDURE: Informed consent was obtained. The risks of the procedure were extensively explained incl uding risk of damage to surrounding bowel with perforation and need for additional procedures. Proced ure was performed in the ultrasound procedure suite. Ultrasound imaging of the abdomen demonstrate as citic fluid. An appropriate access site was localized to the right lower abdomen. Timeout was taken p er protocol. The skin was prepped and draped in the usual sterile fashion and then locally anesthetiz ed with 1% lidocaine. The peritoneal cavity was then accessed via a 5-Pashto one-step needle/cathete r. Approximately 5600 mL of clear straw-colored fluid was obtained. Postprocedural imaging of the ab domen demonstrate a minimal amount of abdominal fluid. Patient tolerated procedure well without immediate complication. Hemostasis at the procedural site w as obtained with a sterile bandage placed. The patient was monitored in the holding area following th e procedure and was subsequently discharged in stable condition. IMPRESSION: Ultrasound guided paracentesis, with approximately 5600 mL of clear straw-colored fluid drained. No i mmediate complications were evident. [facility], , 01/07/2025 9:17 AM
== END 2025-01-06 15:10 | disposition home or self-care (01) ==
LOC: RADPROMAIN 12:54
PROVIDERS: ATTEND Internal Medicine Gastroenterology
DX: K70.31 Alcoholic cirrhosis of liver with ascites (principal)
CPT/HCPCS: 82565; 85049; 85610; 36415; 49083; P9047

== ENCOUNTER 2025-01-13 12:52 | Day surgery (SDC) | payer OTHER ==
[2025-01-13 13:25] LABS: Mean Platelet Volume 10.4 fL (9.5-12.2); Platelet Count 195 10*3/uL (140-440)
[2025-01-13 13:26] VITALS: RESP 12; TEMP 98.2
[2025-01-13 13:37] LABS: African American GFR (CKD) 64 (>60 ml/min/1.73 sqM); INR 1.1 (<1.2); Non-African American GFR(CKD) 55 (>60 ml/min/1.73 sqM); Prothrombin Time 11.7 sec (10.0-12.5)
[2025-01-13] MEDS: ALBUMIN HUMAN 25% 50 ML in EMPTY BAG 1 BAG IVPB SCH (14:35)
[2025-01-13 14:37] VITALS: PULSE 81
--- NOTE | 2025-01-13 14:47 | US ---
EXAMINATION TYPE: US paracentesis abd w/image DATE OF EXAM: 01/13/2025 2:43 PM COMPARISON: None. Previous Paracentesis CLINICAL INDICATION: Female, 45 years old with history of K70.31; , ascites TECHNIQUE/FINDINGS: The procedure was discussed with the patient. The risks, complications, benefits, and alternatives we re discussed and any questions were answered. Informed consent was obtained. The patient was placed s upine on the ultrasound table and prepped and draped in the usual sterile fashion. All elements of maximal barrier technique were utilized. Under ultrasound guidance, access into the right lower quadrant was obtained, via the paracentesis catheter system and direct ultrasound guidanc e. Approximately 5.7 liters of straw-colored fluid was removed. The patient was stable throughout the pr ocedure and remained stable upon discharge from Department of Radiology. IMPRESSION: Successful paracentesis under ultrasound guidance. [facility], , 01/13/2025 2:45 PM
[2025-01-13 15:18] VITALS: BP 107/60
== END 2025-01-13 15:35 | disposition home or self-care (01) ==
LOC: RADPROMAIN 12:52
PROVIDERS: ATTEND Internal Medicine Gastroenterology
DX: R18.8 Other ascites (principal); K74.60 Unspecified cirrhosis of liver
CPT/HCPCS: 82565; 85049; 85610; 36415; 49083; P9047

== ENCOUNTER 2025-01-20 11:49 | Day surgery (SDC) | payer OTHER ==
[2025-01-20 12:13] VITALS: RESP 12; TEMP 98.5
[2025-01-20] MEDS: ALBUMIN HUMAN 25% 50 ML in EMPTY BAG 1 BAG IVPB SCH (12:18)
[2025-01-20 12:20] LABS: Mean Platelet Volume 11.4 fL (9.5-12.2); Platelet Count 110 10*3/uL (140-440)
[2025-01-20 12:27] LABS: INR 1.1 (<1.2); Prothrombin Time 11.8 sec (10.0-12.5)
[2025-01-20 12:31] LABS: African American GFR (CKD) 53 (>60 ml/min/1.73 sqM); Non-African American GFR(CKD) 46 (>60 ml/min/1.73 sqM)
[2025-01-20 13:43] VITALS: BP 91/53; PULSE 82
--- NOTE | 2025-01-20 15:58 | US ---
EXAMINATION TYPE: US paracentesis abd w/image DATE OF EXAM: 01/20/2025 CLINICAL HISTORY: 45-year-old female recurrent ascites, distention, referred for routine weekly para centesis. The procedure was discussed with the patient. The risks, complications, benefits, and alternatives we re discussed and any questions were answered. Informed consent was obtained. The patient was placed s upine on the ultrasound table and prepped and draped in the usual sterile fashion. All elements of maximal barrier technique were utilized. Ultrasound was utilized to determine the precise skin entry site along the right lower quadrant. A 5 Maltese One-Step catheter and trocar technique was utilized to access the ascites collection under direct ultrasound guidance. Approximately 5.0 liters of clear, straw-colored fluid was removed. Catheter was removed, hemostasis obtained, and a dressing placed. The patient was stable throughout the procedure and remained stable upon discharge from Department of Radiology. IMPRESSION: Successful therapeutic paracentesis under ultrasound guidance. 5.0 L of fluid removed. [facility], , 01/20/2025 3:55 PM
== END 2025-01-20 14:00 | disposition home or self-care (01) ==
LOC: RADPROMAIN 11:49
PROVIDERS: ATTEND Internal Medicine Gastroenterology
DX: K70.31 Alcoholic cirrhosis of liver with ascites (principal)
CPT/HCPCS: 82565; 85049; 85610; 36415; 49083; P9047

== ENCOUNTER 2025-01-27 11:42 | Day surgery (SDC) | payer OTHER ==
[2025-01-27 13:23] LABS: Mean Platelet Volume 11.8 fL (9.5-12.2)
[2025-01-27 13:26] VITALS: RESP 16; TEMP 98
[2025-01-27 13:31] LABS: African American GFR (CKD) 45 (>60 ml/min/1.73 sqM); Non-African American GFR(CKD) 39 (>60 ml/min/1.73 sqM)
[2025-01-27 13:32] LABS: Platelet Count 90 10*3/uL (140-440)
[2025-01-27 13:40] LABS: INR 1.2 (<1.2); Prothrombin Time 13.1 sec (10.0-12.5)
[2025-01-27] MEDS: ALBUMIN HUMAN 25% 50 ML in EMPTY BAG 1 BAG IVPB SCH (13:51)
[2025-01-27 15:02] VITALS: BP 113/64; PULSE 69
--- NOTE | 2025-01-27 15:13 | US ---
EXAMINATION TYPE: US paracentesis abd w/image DATE OF EXAM: 01/27/2025 2:07 PM COMPARISON: prior paracentesis. CLINICAL INDICATION:Female, 45 years old with history of K70.31 ALCOHOLIC CIRRHOSIS OF LIVER WITH ASC ITES; , ascites ATTENDING: Dr. Luis E Byrne PROCEDURE: Informed consent was obtained. The risks of the procedure were extensively explained incl uding risk of damage to surrounding bowel with perforation and need for additional procedures. Proced ure was performed in the ultrasound procedure suite. Ultrasound imaging of the abdomen demonstrate as citic fluid. An appropriate access site was localized to the right lower abdomen. Timeout was taken p er protocol. The skin was prepped and draped in the usual sterile fashion and then locally anesthetiz ed with 1% lidocaine. The peritoneal cavity was then accessed via a 5-Hungarian one-step needle/cathete r. Approximately 5100 mL of clear straw-colored fluid was obtained. Postprocedural imaging of the ab domen demonstrate a minimal amount of abdominal fluid. Patient tolerated procedure well without immediate complication. Hemostasis at the procedural site w as obtained with a sterile bandage placed. The patient was monitored in the holding area following th e procedure and was subsequently discharged in stable condition. IMPRESSION: Ultrasound guided paracentesis, with approximately 5100 mL of clear straw-colored fluid drained. No i mmediate complications were evident. [facility], , 01/27/2025 3:11 PM
== END 2025-01-27 15:00 | disposition home or self-care (01) ==
LOC: RADPROMAIN 11:42
PROVIDERS: ATTEND Internal Medicine Gastroenterology
DX: K70.31 Alcoholic cirrhosis of liver with ascites (principal)
CPT/HCPCS: 82565; 85049; 85610; 36415; 49083; P9047

== ENCOUNTER 2025-02-02 08:03 | Day surgery (SDC) | payer OTHER ==
[2025-02-02 08:53] LABS: African American GFR (CKD) 64 (>60 ml/min/1.73 sqM); Non-African American GFR(CKD) 56 (>60 ml/min/1.73 sqM)
[2025-02-02 08:57] LABS: INR 1.0 (<1.2); Prothrombin Time 11.5 sec (10.0-12.5)
[2025-02-02 09:00] VITALS: TEMP 97.8
[2025-02-02] MEDS: ALBUMIN HUMAN 25% 50 ML in EMPTY BAG 1 BAG IVPB SCH (09:07)
[2025-02-02 09:25] LABS: Platelet Count 97 10*3/uL (140-440)
[2025-02-02 09:32] VITALS: RESP 16
[2025-02-02 10:45] VITALS: BP 103/67; PULSE 74
--- NOTE | 2025-02-02 10:54 | US ---
EXAMINATION TYPE: US paracentesis abd w/image DATE OF EXAM: 02/02/2025 CLINICAL HISTORY: 45-year-old female K70.31, ascites and distention, referred for routine outpatient paracentesis. The procedure was discussed with the patient. The risks, complications, benefits, and alternatives we re discussed and any questions were answered. Informed consent was obtained. The patient was placed s upine on the ultrasound table and prepped and draped in the usual sterile fashion. All elements of maximal barrier technique were utilized. Ultrasound was utilized to determine the precise skin entry site along the right lower quadrant. A 5 Jordanian One-Step catheter and trocar technique was utilized to access the ascites collection under direct ultrasound guidance. Approximately 6.7 liters of clear, straw-colored fluid was removed. Catheter was removed, hemostasis obtained, and a dressing placed. The patient was stable throughout the procedure and remained stable upon discharge from Department of Radiology. IMPRESSION: Successful therapeutic paracentesis under ultrasound guidance. 6.7 L of fluid removed. [facility], , 02/02/2025 10:51 AM
== END 2025-02-02 10:42 | disposition home or self-care (01) ==
LOC: RADPROMAIN 08:03
PROVIDERS: ATTEND Internal Medicine Gastroenterology
DX: K70.31 Alcoholic cirrhosis of liver with ascites (principal)
CPT/HCPCS: 82565; 85049; 85610; 36415; 49083; P9047

== ENCOUNTER 2025-02-10 07:46 | Day surgery (SDC) | payer OTHER ==
[2025-02-10 08:46] VITALS: RESP 12; TEMP 98.1
[2025-02-10 08:59] LABS: INR 1.0 (<1.2); Prothrombin Time 11.3 sec (10.0-12.5)
[2025-02-10 09:07] LABS: Platelet Count 169 10*3/uL (140-440)
[2025-02-10 09:17] LABS: African American GFR (CKD) 58 (>60 ml/min/1.73 sqM); Non-African American GFR(CKD) 50 (>60 ml/min/1.73 sqM)
[2025-02-10] MEDS: ALBUMIN HUMAN 25% 50 ML in EMPTY BAG 1 BAG IVPB SCH (09:44)
[2025-02-10 10:28] VITALS: BP 109/66; PULSE 74
--- NOTE | 2025-02-10 12:20 | US ---
EXAMINATION TYPE: US paracentesis abd w/image DATE OF EXAM: February 10 2025 COMPARISON: February 02 2025 prior paracentesis. CLINICAL INDICATION:Female, 44 years old with history of LIVER CIRRHOSIS; , ascites. K70.31 ATTENDING: Dr. Palacio PROCEDURE: Informed consent was obtained. The risks of the procedure were extensively explained incl uding risk of damage to surrounding bowel with perforation and need for additional procedures. Procedure was performed in the ultrasound procedure suite. Ultrasound imaging of the abdomen demonstr ate ascitic fluid. An appropriate access site was localized to the right mid abdomen. Timeout was rodney en per protocol. The skin was prepped and draped in the usual sterile fashion and then locally anesth etized with 1% lidocaine. The peritoneal cavity was then accessed via a 5-Azeri one-step needle/cat heter. Approximately 3600 mL of clear straw-colored fluid was obtained. Patient tolerated procedure well without immediate complication. Hemostasis at the procedural site w as obtained with a sterile bandage placed. The patient was monitored in the holding area following th e procedure and was subsequently discharged in stable condition. IMPRESSION: Ultrasound guided therapeutic paracentesis, with approximately 3600mL of clear straw-colored fluid dr browning. No immediate complications were evident. [facility], , 02/10/2025 12:17 PM
== END 2025-02-10 10:40 | disposition home or self-care (01) ==
LOC: RADPROMAIN 07:46
PROVIDERS: ATTEND Internal Medicine Gastroenterology
DX: K70.31 Alcoholic cirrhosis of liver with ascites (principal)
CPT/HCPCS: 82565; 85049; 85610; 49083; P9047

== ENCOUNTER 2025-02-11 13:50 | Observation (INO) | payer OTHER ==
--- NOTE | 2025-02-11 14:23 | ED ---
Syncope HPI - General Chief Complaint: Syncope Stated Complaint: fall Time Seen by Provider: 02/11/25 13:52 Source: patient, EMS, RN notes reviewed Mode of arrival: EMS Limitations: no limitations - History of Present Illness Initial Comments: This is a 45-year-old female who presents to the emergency department for a syncopal episode. Patient stood up to get out of her car and while attempting to step onto a curb she started to feel dizzy and had a syncopal episode. She ended up hitting her head and sustaining injuries to both of her knees. Tetanus vaccine is up-to-date. Not taking any blood thinners. Denies any history of syncopal episodes. She does get a paracentesis regularly due to a history of cirrhosis and ascites. She most recently had this done yesterday. Denies any chest pain or shortness of breath, states that she just feels tired. Patient's blood pressure also noted to be low. States that it usually runs in the high 90s to low 100s and she does also take midodrine. MD Complaint: loss of consciousness - Related Data Home Medications Medication Instructions Recorded Confirmed Gabapentin [Neurontin] 300 mg PO TID 04/16/24 02/11/25 Ipratropium-Albuterol Nebulize 3 ml INHALATION RT-TID PRN 04/16/24 02/11/25 [Duoneb 0.5 mg-3 mg/3 ml Soln] Tiotropium 2.5 Mcg/Puff [Spiriva 1 puff INHALATION RT-DAILY 04/16/24 02/11/25 Respimat 2.5 Mcg] Midodrine HCl [ProAmatine] 10 mg PO QID 05/03/24 02/11/25 Furosemide [Lasix] 40 mg PO DAILY 06/10/24 02/11/25 Potassium Chloride ER [K-Dur 20] 20 meq PO BID 06/10/24 02/11/25 Fexofenadine HCl [Ysabel Allergy] 180 mg PO DAILY 11/04/24 02/11/25 Montelukast [Singulair] 10 mg PO DAILY 11/04/24 02/11/25 atenoloL [Tenormin] 25 mg PO BID 01/06/25 02/11/25 Albuterol Sulfate [Albuterol 2 puff INHALATION RT-Q6H PRN 02/11/25 02/11/25 Sulfate Hfa] Fluticasone Propion/Salmeterol 1 puff INHALATION RT-BID 02/11/25 02/11/25 [Advair 250-50 Diskus] Pantoprazole [Protonix] 40 mg PO DAILY 02/11/25 02/11/25 Spironolactone [Aldactone] 25 mg PO DAILY 02/11/25 02/11/25 ondansetron HCL [Zofran] 8 mg PO Q8HR PRN 02/11/25 02/11/25 oxyCODONE-APAP 10-325MG [Percocet 1 tab PO TID PRN 02/11/25 02/11/25 10-325 mg] Previous Rx's Medication Instructions Recorded Dapagliflozin Propanediol [Farxiga] 5 mg PO DAILY 90 Days #90 tab 04/08/24 Sodium Bicarbonate Tab 650 mg PO DAILY 90 Days #90 tab 04/08/24 Allergies Allergy/AdvReac Type Severity Reaction Status Date / Time Penicillins Allergy Anaphylaxis Verified 02/11/25 18:31 Review of Systems ROS Statement: Those systems with pertinent positive or pertinent negative responses have been documented in the HPI. ROS Other: All systems not noted in ROS Statement are negative. Past Medical History Past Medical History: GERD/Reflux, Liver Disease Additional Past Medical History / Comment(s): retains fluid,anemia,cirrohis of liver non alcoholic, occ bloody stool, ulcer, bipolar, low sodium levels, ascites, anasarca History of Any Multi-Drug Resistant Organisms: VRE Date of last positivie culture/infection: 04/20/24 MDRO Source:: urine Past Surgical History: Cholecystectomy, EPS Additional Past Surgical History / Comment(s): has had 4 scopes, paracentesis Past Anesthesia/Blood Transfusion Reactions: No Reported Reaction Additional Past Anesthesia/Blood Transfusion Reaction / Comment(s): 3 units of blood transfused in around february 03. Past Psychological History: Anxiety, Bipolar Smoking Status: Current some day smoker Past Alcohol Use History: Abuse Past Drug Use History: None Reported General Exam Limitations: no limitations General appearance: alert, in no apparent distress Head exam: Present: other (Superficial laceration to the forehead) Eye exam: Present: PERRL, EOMI Respiratory exam: Present: normal lung sounds bilaterally. Absent: respiratory distress, wheezes, rales, rhonchi, stridor Cardiovascular Exam: Present: regular rate, normal rhythm Extremities exam: Present: other (Deep lacerations to the bilateral patella with visible subcutaneous tissue. Pitting edema bilaterally, worse on the left.) Neurological exam: Present: alert, oriented X3, CN II-XII intact Psychiatric exam: Present: normal affect, normal mood Course Vital Signs 02/11/25 02/11/25 02/11/25 13:57 13:58 14:00 Temperature 98.4 F Pulse Rate 63 65 66 Respiratory 18 18 18 Rate Blood Pressure 79/40 79/41 79/40 O2 Sat by Pulse 97 96 96 Oximetry 02/11/25 02/11/25 02/11/25 14:13 14:15 14:20 Temperature Pulse Rate 62 64 65 Respiratory 18 18 18 Rate Blood Pressure 76/43 76/44 77/41 O2 Sat by Pulse 97 97 95 Oximetry 02/11/25 02/11/25 02/11/25 14:25 14:30 14:35 Temperature Pulse Rate 65 65 64 Respiratory 18 16 18 Rate Blood Pressure 77/43 77/43 83/47 O2 Sat by Pulse 97 95 97 Oximetry 02/11/25 02/11/25 02/11/25 14:40 14:45 14:50 Temperature Pulse Rate 65 64 66 Respiratory 18 16 18 Rate Blood Pressure 69/43 76/42 75/39 O2 Sat by Pulse 97 95 97 Oximetry 02/11/25 02/11/25 02/11/25 14:55 15:00 15:05 Temperature Pulse Rate 66 72 70 Respiratory 18 18 18 Rate Blood Pressure 70/39 70/36 82/45 O2 Sat by Pulse 97 97 99 Oximetry 02/11/25 02/11/25 02/11/25 15:14 15:15 15:30 Temperature Pulse Rate 71 68 72 Respiratory 18 16 16 Rate Blood Pressure 71/34 71/34 O2 Sat by Pulse 99 99 99 Oximetry 02/11/25 02/11/25 02/11/25 15:45 16:00 16:30 Temperature Pulse Rate 70 73 71 Respiratory 16 16 16 Rate Blood Pressure 77/43 91/49 83/49 O2 Sat by Pulse 99 98 97 Oximetry 02/11/25 02/11/25 02/11/25 17:00 17:29 19:40 Temperature Pulse Rate 71 77 72 Respiratory 18 18 18 Rate Blood Pressure 79/44 97/54 87/63 O2 Sat by Pulse 96 98 97 Oximetry 02/11/25 02/11/25 02/11/25 21:43 22:11 22:33 Temperature Pulse Rate 72 74 75 Respiratory 18 16 18 Rate Blood Pressure 69/35 87/48 94/56 O2 Sat by Pulse 97 Oximetry Procedures - Laceration Laceration #1 Consent Obtained: verbal consent Indication: laceration Site: other (Left knee) Size (cm): 8 Description: linear, flap Anesthetic Used: lidocaine 1%, with epi Anesthesia Technique: local infiltration Amount (mls): 6 Pre-repair: wound explored, irrigated extensively Type of Sutures: nylon Size of Sutures: 4-0 Number of Sutures: 15 Technique: vertical mattress Laceration #2 Consent Obtained: verbal consent Indication: laceration Site: other (Right knee) Size (cm): 5 Description: linear, flap Anesthetic Used: lidocaine 1%, with epi Anesthesia Technique: local infiltration Amount (mls): 5 Pre-repair: wound explored, irrigated extensively Type of Sutures: nylon Size of Sutures: 4-0 Number of Sutures: 9 Technique: vertical mattress Laceration #3 Consent Obtained: verbal consent Indication: laceration Site: face Size (cm): 2 Description: linear, stellate Depth: simple, single layer Type of Sutures: other (Dermabond) Medical Decision Making - Medical Decision Making This is a 45-year-old female who presents to the emergency department for a syncopal episode. Was pt. sent in by a medical professional or institution? @ -No Did you speak to anyone other than the patient for history? @ -No Did you review nursing and triage notes? @ -Yes, and I agree, it is accurate with regards to the patient's symptoms. Were old charts reviewed? @ -No Differential Diagnosis? @ -Differential Syncope: Valvular disease, hypertrophic cardiomyopathy, pulmonary embolism, tamponade, tachycardia, bradycardia, UT, hypovolemia, hemorrhage, dissection, anemia, intracranial hemorrhage, seizure, hypoglycemia, carbon monoxide poisoning, this is not meant to be an all-inclusive list. EKG interpreted by me (3pts min.)? @ -EKG interpreted by me demonstrating the following: Sinus rhythm. Ventricular rate 65 bpm, IA interval 156 ms, QRS duration 89 ms, QTc 453 ms. X-rays interpreted by me (1pt min.)? @ -X-ray of the bilateral patella obtained. My interpretation identifies no acute fractures. Chest x-ray obtained, my interpretation identifies no localize d consolidations or infiltrates. CT interpreted by me (1pt min.)? @ -Computed tomography scan of the brain and c-spine obtained. My interpretation identifies no evidence of an acute intracranial hemorrhage, skull fracture, or cervical spine fracture. CT scan of the facial bones obtained. My interpretation identifies no facial fractures. U/S interpreted by me (1pt. min.)? @ -Not obtained What testing was considered but not performed? (CT, X-rays, U/S, labs)? Why? @ -None What meds were considered but not given? Why? @ -None Did you discuss the management of the patient with other professionals? @ -Yes, Dr. Shields, who accepts the patient for admission. Did you reconcile home meds? @ -No Was smoking cessation discussed for >3mins.? @ -No Was critical care preformed (if so, how long)? @ -No Were there social determinants of health that impacted care today? How? (Ho melessness, low income, unemployed, alcoholism, drug addiction, transportation, low edu. Level, literacy, decrease access to med. care, senior living, rehab)? @ -No Was there de-escalation of care discussed even if they declined? (Discuss DNR or withdrawal of care, Hospice)? @ -No What co-morbidities impacted this encounter? (DM, HTN, Smoking, COPD, CAD, Cancer, CVA, Hep., AIDS, mental health diagnosis, sleep apnea, morbid obesity)? @ -Liver disease Was patient admitted / discharged? @ -Admitted. Lab work demonstrates a hemoglobin of 8.7, which is relatively stable for the patient. She is also hyponatremic with a sodium of 124. This is again a relatively stable finding for her. She has mild hypokalemia with a potassium of 3.3 and hypomagnesemia with a magnesium of 1.5. 40 mEq of K-Dur and 400 mg of magnesium oxide administered. CT scan of the brain/C-spine and facial bones obtained revealing no acute intracranial process or fractures. Chest x-ray and x-ray of the bilateral knees obtained also revealing no acute findings. She did have fairly deep lacerations to both of her knees and for traumatic prophylaxis she was given a dose of vancomycin. We are going to do cephalosporins, however she has an anaphylactic reaction to penicillin and is unsure if she has ever tolerated them. Both of her knees were sutured with vertical mattress sutures for better support. The laceration on her face was repaired with Dermabond. Tetanus vaccine is already up-to-date. Patient continued to remain hypotensive in the emergency department. She does tend to run on the lower side in the 90s to low 100s systolically. She is also on midodrine 4 times daily. We tried to be careful with regards to how much fluid she was given as she is already fluid overloaded. However, despite giving her IV fluids and the midodrine, her BP continued to drop back into the 60s to 80s systolically. She only went back up into the 90s on a couple of occasions. Given the persistent hypotension with syncopal episode, she was admitted to medicine for further management. Case discussed with ED attending Dr. Carlos vasquez. Undiagnosed new problem with uncertain prognosis? @ -None Drug Therapy requiring intensive monitoring for toxicity (Heparin, Nitro, Insulin, Cardizem)? @ -None Were any procedures done? @ -Laceration repair with sutures and Dermabond Diagnosis/symptom? @ -Syncope, hypotension Acute, or Chronic, or Acute on Chronic? @ -Acute Uncomplicated (without systemic symptoms) or Complicated (systemic symptoms)? @ -Complicated Side effects of treatment? @ -None Exacerbation, Progression, or Severe Exacerbation] @ -Not applicable Poses a threat to life or bodily function? @ -Yes, can lead to fatal arrhythmias. - Lab Data Result diagrams: 02/11/25 14:21 02/11/25 14:21 Lab Results 02/11/25 02/11/25 02/11/25 Range/Units 14:21 14:21 14:21 WBC 6.90 (4.50-10.00) 10*3/uL RBC 2.55 L (4.10-5.20) 10*6/uL Hgb 8.7 L (12.0-15.0) g/dL Hct 25.0 L (37.2-46.3) % MCV 98.0 H (80.0-97.0) fL MCH 34.1 H (27.0-32.0) pg MCHC 34.8 (32.0-37.0) g/dL Plt Count 90 L (140-440) 10*3/uL MPV 11.4 (9.5-12.2) fL Immature Gran % (Auto) 0.6 % Neutrophils % 75.0 % Lymphocytes % 11.4 % Monocytes % 6.2 % Eosinophils % 6.2 % Basophils % 0.6 % Immature Gran # 0.04 (0.00-0.04) 10*3/uL Neutrophils # 5.17 (1.80-7.70) 10*3/uL Lymphocytes # 0.79 L (0.90-5.00) 10*3/uL Monocytes # 0.43 (0.20-1.00) 10*3/uL Eosinophils # 0.43 H (0.04-0.35) 10*3/uL Basophils # 0.04 (0.00-0.10) 10*3/uL Manual Slide Review Performed PT 12.0 (10.0-12.5) sec INR 1.1 (<1.2) APTT 26.8 (22.0-30.0) sec Sodium 124 L (137-145) mmol/L Potassium 3.3 L (3.5-5.1) mmol/L Chloride 100 (98-107) mmol/L Carbon Dioxide 16 L (22-30) mmol/L Anion Gap 8 mmol/L BUN 13 (7-17) mg/dL Creatinine 1.36 H (0.52-1.04) mg/dL Est GFR (CKD-EPI)AfAm 55 (>60 ml/min/1.73 sqM) Est GFR (CKD-EPI)NonAf 47 (>60 ml/min/1.73 sqM) Glucose 102 H (74-99) mg/dL Calcium 7.7 L (8.4-10.2) mg/dL Phosphorus 4.5 (2.5-4.5) mg/dL Magnesium 1.5 L (1.6-2.3) mg/dL Total Bilirubin 0.7 (0.2-1.3) mg/dL AST 38 H (14-36) U/L ALT 15 (4-34) U/L Alkaline Phosphatase 95 (38-126) U/L Troponin I (0.000-0.034) ng/mL Total Protein 4.2 L (6.3-8.2) g/dL Albumin 2.0 L (3.5-5.0) g/dL 02/11/25 Range/Units 14:21 WBC (4.50-10.00) 10*3/uL RBC (4.10-5.20) 10*6/uL Hgb (12.0-15.0) g/dL Hct (37.2-46.3) % MCV (80.0-97.0) fL MCH (27.0-32.0) pg MCHC (32.0-37.0) g/dL Plt Count (140-440) 10*3/uL MPV (9.5-12.2) fL Immature Gran % (Auto) % Neutrophils % % Lymphocytes % % Monocytes % % Eosinophils % % Basophils % % Immature Gran # (0.00-0.04) 10*3/uL Neutrophils # (1.80-7.70) 10*3/uL Lymphocytes # (0.90-5.00) 10*3/uL Monocytes # (0.20-1.00) 10*3/uL Eosinophils # (0.04-0.35) 10*3/uL Basophils # (0.00-0.10) 10*3/uL Manual Slide Review PT (10.0-12.5) sec INR (<1.2) APTT (22.0-30.0) sec Sodium (137-145) mmol/L Potassium (3.5-5.1) mmol/L Chloride (98-107) mmol/L Carbon Dioxide (22-30) mmol/L Anion Gap mmol/L BUN (7-17) mg/dL Creatinine (0.52-1.04) mg/dL Est GFR (CKD-EPI)AfAm (>60 ml/min/1.73 sqM) Est GFR (CKD-EPI)NonAf (>60 ml/min/1.73 sqM) Glucose (74-99) mg/dL Calcium (8.4-10.2) mg/dL Phosphorus (2.5-4.5) mg/dL Magnesium (1.6-2.3) mg/dL Total Bilirubin (0.2-1.3) mg/dL AST (14-36) U/L ALT (4-34) U/L Alkaline Phosphatase (38-126) U/L Troponin I <0.012 (0.000-0.034) ng/mL Total Protein (6.3-8.2) g/dL Albumin (3.5-5.0) g/dL - Radiology Data Radiology results: report reviewed, image reviewed Disposition Clinical Impression: Syncope, Hypotension Disposition: ADMITTED IP TO THIS HOSP
[2025-02-11 14:28] LABS: Basophils # (A) 0.04 10*3/uL (0.00-0.10); Basophils % (A) 0.6 %; Eosinophils # (A) 0.43 10*3/uL (0.04-0.35); Eosinophils % (A) 6.2 %; HCT 25.0 % (37.2-46.3); HGB 8.7 g/dL (12.0-15.0); Lymphocytes # (A) 0.79 10*3/uL (0.90-5.00); Lymphocytes % (A) 11.4 %; MCH 34.1 pg (27.0-32.0); MCHC 34.8 g/dL (32.0-37.0); MCV 98.0 fL (80.0-97.0); Monocytes # (A) 0.43 10*3/uL (0.20-1.00); Monocytes % (A) 6.2 %; Neutrophils # (A) 5.17 10*3/uL (1.80-7.70); Neutrophils % (A) 75.0 %; RBC 2.55 10*6/uL (4.10-5.20); RDW 17.5 % (11.5-14.5); WBC 6.90 10*3/uL (4.50-10.00)
[2025-02-11 14:49] LABS: ALT 15 U/L (4-34); AST 38 U/L (14-36); African American GFR (CKD) 55 (>60 ml/min/1.73 sqM); Albumin 2.0 g/dL (3.5-5.0); Alkaline Phosphatase 95 U/L (38-126); Anion Gap 8 mmol/L; Blood Urea Nitrogen 13 mg/dL (7-17); Calcium 7.7 mg/dL (8.4-10.2); Carbon Dioxide 16 mmol/L (22-30); Chloride 100 mmol/L (98-107); Glucose 102 mg/dL (74-99); Magnesium 1.5 mg/dL (1.6-2.3); Non-African American GFR(CKD) 47 (>60 ml/min/1.73 sqM); Potassium 3.3 mmol/L (3.5-5.1); Sodium 124 mmol/L (137-145); Total Protein 4.2 g/dL (6.3-8.2)
[2025-02-11] MEDS: TOPICAL SKIN ADHESIVE 1 EACH AMP TOPICAL ONE (14:54)
[2025-02-11] MEDS: MIDODRINE 5 MG TAB PO STA (14:54)
[2025-02-11] MEDS: LIDOCAINE 1%-EPI 1:100,000 20 ML VIAL SQ STA (14:54)
[2025-02-11 14:55] LABS: INR 1.1 (<1.2); Partial Thromboplastin Time 26.8 sec (22.0-30.0); Prothrombin Time 12.0 sec (10.0-12.5)
[2025-02-11] MEDS: MAGNESIUM OXIDE 400 MG TAB PO STA (15:00)
[2025-02-11] MEDS: POTASSIUM CHLORIDE ER 20 MEQ TAB.ER PO STA (15:00)
[2025-02-11] MEDS ORDERED: VANCOMYCIN IV PER PHARMACY 1 EACH MISC MISCELLANE PRN (15:07)
--- NOTE | 2025-02-11 15:11 | CT ---
EXAMINATION TYPE: CT brain cspine wo con, CT facial bones wo con CT DLP: 1088.2 combined (accession [id number]), combined 1088.2 (accession [id number]) mGycm, Automated e xposure control for dose reduction was used. DATE OF EXAM: 02/11/2025 3:00 PM COMPARISON: None. CLINICAL INDICATION:Female, 45 years old with history of Fall; fell/low BP, pain TECHNIQUE: Brain: Multiple axial CT images of the brain were obtained without IV contrast. Cspine: Axial CT images from the skull base to the inferior aspect of T2 we obtained without intraven ous contrast. Coronal and sagittal reformatted images were also reviewed. Facial bones; axial CT images of the facial bones were obtained without contrast and soft tissue and bone windows. Coronal and sagittal reformatted images were also reviewed. FINDINGS: Brain: Extra-axial spaces: No abnormal extra-axial fluid collections. Ventricular system: Within normal limits Cerebral parenchyma: No acute intraparenchymal hemorrhage or mass effect. The pearce-white junction is well differentiated. Cerebellum: Unremarkable. Mass effect: No evidence of midline shift. Intracranial vasculature: unremarkable Soft tissues: Normal. Calvarium: No depressed skull fracture. Paranasal sinuses and mastoid air cells: Clear. Visualized orbits: Orbital contents are intact. Cervical spine: Fracture: None. Osseous structures: Disc space narrowing with endplate sclerosis and anterior osteophytosis at C5-C6. Vertebral alignment: Within normal limits. Spinal canal/Neural Foramina: Broad-based disc bulge at C5-C6 resulting in mild spinal canal stenosis . No evidence for significant neural foraminal stenosis. Neck soft tissues: Prevertebral soft tissues are within normal limits. Other: The airway is patent. The lung apices are clear. Mild bilateral carotid bifurcation calcificat ions. Facial Bones: There is no evidence of fracture, subluxation, dislocation, or significant soft tissue swelling. The orbital contents are unremarkable. The temporal-mandibular joints appear symmetric. The visualized po rtion of the paranasal sinuses appear clear. IMPRESSION: 1. No acute intracranial process. 2. No acute facial bone fracture. 3. No evidence of cervical spine fracture. 4. Mild degenerative disc disease at C5-C6. [facility], , 02/11/2025 3:08 PM
--- NOTE | 2025-02-11 15:33 | XR ---
EXAMINATION TYPE: XR chest 2V DATE OF EXAM: 02/11/2025 3:30 PM COMPARISON: Chest radiographs from 05/24/2024 TECHNIQUE: XR chest 2V Frontal and lateral views of the chest. CLINICAL INDICATION:Female, 45 years old with history of syncope; FINDINGS: Lungs/Pleura: There is no evidence of pleural effusion, focal consolidation, or pneumothorax. Pulmonary vascularity: Unremarkable. Heart/mediastinum: Cardiomediastinal silhouette is unremarkable. Musculoskeletal: No acute osseous pathology. IMPRESSION: No acute cardiopulmonary disease/process. [facility], , 02/11/2025 3:31 PM
--- NOTE | 2025-02-11 15:34 | XR ---
EXAMINATION TYPE: XR knee complete bilateral DATE OF EXAM: 02/11/2025 3:30 PM INDICATION: Patient age:Female; 45 years old; Reason for study: Fall; PHH. pain COMPARISON: None. TECHNIQUE: Both knees were examined in Frontal, lateral and oblique projections. FINDINGS: No evidence of any acute osseous pathology, soft tissue swelling, or joint effusion is no piedad. IMPRESSION: No acute osseous pathology. [facility], , 02/11/2025 3:32 PM
[2025-02-11] MEDS: SODIUM CHLORIDE 0.9% 500 ML 500 ML IV ONE (15:35)
[2025-02-11] MEDS: MIDODRINE 5 MG TAB PO ONE (15:44)
[2025-02-11 15:45] LABS: Platelet Count 90 10*3/uL (140-440)
[2025-02-11] MEDS: VANCOMYCIN 2,000 MG in SODIUM CHLORIDE 0.9% 500 ML 500 ML IVPB ONE (16:06)
[2025-02-11] MEDS ORDERED: ONDANSETRON 4 MG/2 ML VIAL IVP PRN (17:45)
[2025-02-11] MEDS ORDERED: NALOXONE 0.4 MG/ML 1 ML VIAL IV PRN (17:45)
[2025-02-11] MEDS ORDERED: MORPHINE SULFATE 4 MG/ML SYRINGE IV PRN (17:45)
[2025-02-11] MEDS ORDERED: HYDROcodone/APAP 5-325MG 1 EACH TAB PO PRN (17:45)
[2025-02-11] MEDS ORDERED: ACETAMINOPHEN TAB 325 MG TAB PO PRN (17:45)
[2025-02-11] MEDS: MIDODRINE 5 MG TAB PO SCH (20:17)
[2025-02-11] MEDS ORDERED: ALBUTEROL NEBULIZED 2.5 MG/3 ML INHALATION PRN (21:00)
[2025-02-11] MEDS ORDERED: ONDANSETRON ODT 8 MG TAB.RAPDIS PO PRN (21:00)
[2025-02-11] MEDS ORDERED: IPRATROPIUM-ALBUTEROL 3 ML NEB INHALATION PRN (21:00)
[2025-02-11] MEDS: SODIUM CHLORIDE 0.9% 1,000 ML IV SCH ×2 (21:50→22:59)
[2025-02-11] MEDS ORDERED: MIDODRINE 5 MG TAB PO SCH (22:00)
[2025-02-11] MEDS: MAGNESIUM SULFATE-D5W PMX 1 GM in DEXTROSE/WATER 1 100ML.BAG IVPB SCH (22:59)
[2025-02-12] MEDS: GABAPENTIN 300 MG CAP PO SCH (01:04)
[2025-02-12 06:43] LABS: Bilirubin,Urine Negative (Negative); Blood,Urine Negative (Negative); Color,Urine Colorless; Glucose,Urine (UA) Trace (Negative); Ketones,Urine Negative (Negative); Leukocyte Esterase,Urine Negative (Negative); Nitrite,Urine Negative (Negative); PH, Urine 6.0 (5.0-8.0); Protein,Urine Negative (Negative); Specific Gravity,Urine 1.009 (1.001-1.035); Urobilinogen,Urine <2.0 mg/dL (<2.0)
[2025-02-12] MEDS ORDERED: PANTOPRAZOLE 40 MG TABLET PO SCH (07:30)
[2025-02-12] MEDS: SYMBICORT 80-4.5 MCG INHALER INHALATION SCH (08:03)
[2025-02-12] MEDS: DAPAGLIFLOZIN PROPANEDIOL 5 MG TABLET PO SCH (08:23)
[2025-02-12] MEDS: SODIUM BICARBONATE TAB 650 MG TAB PO SCH (08:23)
[2025-02-12] MEDS: LORATADINE 10 MG TAB PO SCH (08:24)
[2025-02-12] MEDS: MONTELUKAST 10 MG TAB PO SCH (08:24)
[2025-02-12] MEDS: PANTOPRAZOLE 40 MG/10 ML VIAL IV SCH (08:25)
[2025-02-12 08:31] LABS: African American GFR (CKD) 80 (>60 ml/min/1.73 sqM); Non-African American GFR(CKD) 69 (>60 ml/min/1.73 sqM)
[2025-02-12 13:27] LABS: Basophils # (A) 0.04 10*3/uL (0.00-0.10); Basophils % (A) 0.5 %; Eosinophils # (A) 0.38 10*3/uL (0.04-0.35); Eosinophils % (A) 4.7 %; HCT 30.0 % (37.2-46.3); HGB 10.3 g/dL (12.0-15.0); Lymphocytes # (A) 0.89 10*3/uL (0.90-5.00); Lymphocytes % (A) 11.0 %; MCH 33.9 pg (27.0-32.0); MCHC 34.3 g/dL (32.0-37.0); MCV 98.7 fL (80.0-97.0); Monocytes # (A) 0.37 10*3/uL (0.20-1.00); Monocytes % (A) 4.6 %; Neutrophils # (A) 6.38 10*3/uL (1.80-7.70); Neutrophils % (A) 78.5 %; Platelet Count 106 10*3/uL (140-440); RBC 3.04 10*6/uL (4.10-5.20); RDW 18.3 % (11.5-14.5); WBC 8.12 10*3/uL (4.50-10.00)
[2025-02-12 13:37] LABS: ALT 16 U/L (4-34); AST 38 U/L (14-36); African American GFR (CKD) 80 (>60 ml/min/1.73 sqM); Albumin 2.2 g/dL (3.5-5.0); Alkaline Phosphatase 121 U/L (38-126); Anion Gap 7 mmol/L; Blood Urea Nitrogen 12 mg/dL (7-17); Calcium 8.3 mg/dL (8.4-10.2); Carbon Dioxide 15 mmol/L (22-30); Chloride 107 mmol/L (98-107); Glucose 110 mg/dL (74-99); Non-African American GFR(CKD) 69 (>60 ml/min/1.73 sqM); Potassium 4.3 mmol/L (3.5-5.1); Sodium 129 mmol/L (137-145); Total Protein 4.6 g/dL (6.3-8.2)
[2025-02-12] MEDS ORDERED: VANCOMYCIN 2,000 MG in SODIUM CHLORIDE 0.9% 500 ML 500 ML IVPB SCH (16:00)
[2025-02-12] MEDS: oxyCODONE-APAP 10-325MG 1 EACH TAB PO PRN (21:53)
--- NOTE | 2025-02-13 05:17 | HP ---
HISTORY AND PHYSICAL SUBJECTIVE: A 45-year-old white female, presents to the hospital with severe dehydration, acute tubular necrosis, acute on chronic renal failure with syncope, passing out in the store. She is admitted for monitoring. Her BUN and creatinine have decreased overnight with increased GFR. She feels much better. She is not dizzy or lightheaded currently. She has a history of cirrhosis, ascites, paracentesis, severe hypotension, and orthostatic hypotension. ALLERGIES: Penicillin. OBJECTIVE: VITAL SIGNS: Temperature 98.4, pulse 60s, respiratory rate 16-18, blood pressure 79/40, and O2 is 96%-97%. INTEGUMENT: Dry skin turgor. Dry mucous membranes. CARDIOVASCULAR: S1, S2. LUNGS: Decreased breath sounds x4. PSYCH: Fair mood and affect. NEUROLOGIC: Alert and oriented x3. PLAN: Continue current treatment. Discharge home when rehydrated. Prognosis guarded. MMODL / IJN: [id number] /
[2025-02-13 06:25] LABS: Basophils # (A) 0.06 10*3/uL (0.00-0.10); Basophils % (A) 0.8 %; Eosinophils # (A) 0.89 10*3/uL (0.04-0.35); Eosinophils % (A) 11.2 %; HCT 27.6 % (37.2-46.3); HGB 9.4 g/dL (12.0-15.0); Lymphocytes # (A) 1.22 10*3/uL (0.90-5.00); Lymphocytes % (A) 15.4 %; MCH 33.7 pg (27.0-32.0); MCHC 34.1 g/dL (32.0-37.0); MCV 98.9 fL (80.0-97.0); Monocytes # (A) 0.57 10*3/uL (0.20-1.00); Monocytes % (A) 7.2 %; Neutrophils # (A) 5.15 10*3/uL (1.80-7.70); Neutrophils % (A) 64.8 %; RBC 2.79 10*6/uL (4.10-5.20); RDW 18.1 % (11.5-14.5); WBC 7.94 10*3/uL (4.50-10.00)
[2025-02-13 06:39] LABS: ALT 14 U/L (4-34); AST 34 U/L (14-36); African American GFR (CKD) 89 (>60 ml/min/1.73 sqM); Albumin 1.9 g/dL (3.5-5.0); Alkaline Phosphatase 98 U/L (38-126); Anion Gap 5 mmol/L; Blood Urea Nitrogen 11 mg/dL (7-17); Calcium 7.9 mg/dL (8.4-10.2); Carbon Dioxide 15 mmol/L (22-30); Chloride 106 mmol/L (98-107); Glucose 81 mg/dL (74-99); Non-African American GFR(CKD) 77 (>60 ml/min/1.73 sqM); Potassium 4.2 mmol/L (3.5-5.1); Sodium 126 mmol/L (137-145); Total Protein 4.0 g/dL (6.3-8.2)
[2025-02-13 07:49] VITALS: RESP 16; TEMP 97.8
[2025-02-13 09:18] LABS: Platelet Count 95 10*3/uL (140-440)
[2025-02-13 11:24] VITALS: BP 99/62; PULSE 65
== END 2025-02-13 11:41 | disposition home or self-care (01) ==
LOC: EC 13:50 → INTOOBSV 17:33 → 6NMEDSUR 17:33 → 3SCARD 02-12 02:27
PROVIDERS: ADMIT Family Medicine; ATTEND Family Medicine
DX: R55 Syncope and collapse (principal); K21.9 Gastro-esophageal reflux disease without esophagitis; F31.9 Bipolar disorder, unspecified; F41.9 Anxiety disorder, unspecified; F17.200 Nicotine dependence, unspecified, uncomplicated; Z79.84 Long term (current) use of oral hypoglycemic drugs; Z79.899 Other long term (current) drug therapy; Z88.0 Allergy status to penicillin
CPT/HCPCS: 96376; 96361 ×2; 96365; 96366 ×2; 96367; 96375; 99285; 36415; 94640 ×3; 93005; 80053 ×3; 82533; 82565; 83735; 84100; 84484; 85025 ×3; 85610; 85730; 81003; 87086; 73562; 71046; 72125; 70486; 70450; 12035; 12011; G0378 ×3; J3475 ×2; J2470 ×2; J3373

== ENCOUNTER 2025-02-17 12:37 | Day surgery (SDC) | payer OTHER ==
[2025-02-17] MEDS: ALBUMIN HUMAN 25% 50 ML in EMPTY BAG 1 BAG IVPB SCH (13:29)
[2025-02-17 13:32] LABS: Basophils # (A) 0.07 10*3/uL (0.00-0.10); Basophils % (A) 0.9 %; Eosinophils # (A) 0.81 10*3/uL (0.04-0.35); Eosinophils % (A) 10.9 %; HCT 28.4 % (37.2-46.3); HGB 9.9 g/dL (12.0-15.0); Lymphocytes # (A) 0.72 10*3/uL (0.90-5.00); Lymphocytes % (A) 9.7 %; MCH 34.3 pg (27.0-32.0); MCHC 34.9 g/dL (32.0-37.0); MCV 98.3 fL (80.0-97.0); Monocytes # (A) 0.57 10*3/uL (0.20-1.00); Monocytes % (A) 7.7 %; Neutrophils # (A) 5.12 10*3/uL (1.80-7.70); Neutrophils % (A) 69.2 %; Platelet Count 113 10*3/uL (140-440); RBC 2.89 10*6/uL (4.10-5.20); RDW 17.6 % (11.5-14.5); WBC 7.41 10*3/uL (4.50-10.00)
[2025-02-17 13:37] VITALS: RESP 16; TEMP 98
[2025-02-17 13:38] LABS: INR 1.1 (<1.2)
[2025-02-17 13:39] LABS: Prothrombin Time 11.8 sec (10.0-12.5)
[2025-02-17 13:45] LABS: ALT 20 U/L (4-34); AST 50 U/L (14-36); African American GFR (CKD) 85 (>60 ml/min/1.73 sqM); Albumin 2.3 g/dL (3.5-5.0); Alkaline Phosphatase 160 U/L (38-126); Anion Gap 8 mmol/L; Blood Urea Nitrogen 12 mg/dL (7-17); Calcium 8.5 mg/dL (8.4-10.2); Carbon Dioxide 15 mmol/L (22-30); Chloride 103 mmol/L (98-107); Glucose 107 mg/dL (74-99); Non-African American GFR(CKD) 74 (>60 ml/min/1.73 sqM); Potassium 3.6 mmol/L (3.5-5.1); Sodium 126 mmol/L (137-145); Total Protein 4.8 g/dL (6.3-8.2)
[2025-02-17 14:02] VITALS: BP 123/78
[2025-02-17 14:15] VITALS: PULSE 85
--- NOTE | 2025-02-17 15:07 | US ---
EXAMINATION TYPE: US paracentesis abd w/image DATE OF EXAM: 02/17/2025 1:56 PM COMPARISON: None. Previous Paracentesis CLINICAL INDICATION: Female, 45 years old with history of K70.31; , ascites TECHNIQUE/FINDINGS: The procedure was discussed with the patient. The risks, complications, benefits, and alternatives we re discussed and any questions were answered. Informed consent was obtained. The patient was placed s upine on the ultrasound table and prepped and draped in the usual sterile fashion. All elements of maximal barrier technique were utilized. Under ultrasound guidance, access into the right lower quadrant was obtained, via the paracentesis catheter system and direct ultrasound guidanc e. Approximately 3.5 liters of straw-colored fluid was removed. The patient was stable throughout the pr ocedure and remained stable upon discharge from Department of Radiology. IMPRESSION: Successful paracentesis under ultrasound guidance. [facility], , 02/17/2025 3:04 PM
== END 2025-02-17 14:30 | disposition home or self-care (01) ==
LOC: RADPROMAIN 12:37
PROVIDERS: ATTEND Internal Medicine Gastroenterology
DX: R18.8 Other ascites (principal)
CPT/HCPCS: 80053; 83540; 85025; 85610; 36415; 49083; P9047

== ENCOUNTER 2025-02-27 13:04 | Day surgery (SDC) | payer OTHER ==
[2025-02-27 13:29] VITALS: RESP 12
[2025-02-27 13:55] LABS: Platelet Count 209 10*3/uL (140-440)
[2025-02-27 14:03] LABS: INR 1.1 (<1.2); Prothrombin Time 12.0 sec (10.0-12.5)
[2025-02-27 14:07] LABS: African American GFR (CKD) 64 (>60 ml/min/1.73 sqM); Non-African American GFR(CKD) 56 (>60 ml/min/1.73 sqM)
[2025-02-27] MEDS: ALBUMIN HUMAN 25% 50 ML in EMPTY BAG 1 BAG IVPB SCH (14:39)
[2025-02-27 15:34] VITALS: BP 125/70; PULSE 120
--- NOTE | 2025-02-27 16:04 | US ---
EXAMINATION TYPE: US paracentesis abd w/image DATE OF EXAM: 02/27/2025 CLINICAL HISTORY: 45-year-old female K70.31, recurrent ascites, distention. Routine weekly outpatien t paracentesis. The procedure was discussed with the patient. The risks, complications, benefits, and alternatives we re discussed and any questions were answered. Informed consent was obtained. The patient was placed s upine on the ultrasound table and prepped and draped in the usual sterile fashion. All elements of maximal barrier technique were utilized. Ultrasound was utilized to determine the precise skin entry site along the right lower quadrant. A 5 Upper Sorbian One-Step catheter and trocar technique was utilized to access the ascites collection under direct ultrasound guidance. Approximately 10.2 liters of clear, straw-colored fluid was removed. Catheter was removed, hemostasis obtained, and a dressing placed. The patient was stable throughout the procedure and remained stable upon discharge from Department of Radiology. IMPRESSION: Successful therapeutic paracentesis under ultrasound guidance. 10.2 L of fluid removed. [facility], , 02/27/2025 4:01 PM
== END 2025-02-27 15:45 | disposition home or self-care (01) ==
LOC: RADPROMAIN 13:04
PROVIDERS: ATTEND Internal Medicine Gastroenterology
DX: K70.31 Alcoholic cirrhosis of liver with ascites (principal)
CPT/HCPCS: 82565; 85049; 85610; 36415; 49083; P9047